=== PATIENT | female | born 2000 | race Caucasian/White ===

== ENCOUNTER 2022-06-18 11:47 | Outpatient (CLI) | payer OTHER, MEDICAID, SELFPAY ==
--- OUTSIDE RECORDS SUMMARY | 2022-06-18 11:53 | XMS_ITS | Encounter Summary ---
:2001 Author Organization [facility] Address [address] [place] [address] Care Team Providers Name Role Phone [place] MD Unavailable [place] MD Unavailable Josh Carrero Primary Care Provider Urbano Price MD Unavailable Joe Leo MD Unavailable oJe Leo MD Unavailable Douglas Gonzalez MD Unavailable [phone] Douglas Gonzalez MD Unavailable [phone] Reason for Visit Reason Onset Date Comments MyChart Communication 04/19/2022 [facility] Care Coordination - Follow-up 04/19/2022 Encounter Details Date Type Department Care Team Description 04/19/2022 Telephone [facility] [place] [facility] MD Darell ([facility]); Clinic [address] Care [facility] - [address] [place] [address] [address] Follow-up 4th [place] [phone] Social History Tobacco Use Types Packs/Day Years Used Date Smoking Tobacco: Never Smokeless Tobacco: Never Alcohol Use Standard Drinks/Week Comments Not Currently 0 (1 standard drink = 0.6 oz pure alcoho l) Sex Assigned at Date Recorded Female 12/02/2020 1:42 PM CDT documented as of this encounter Miscellaneous Notes Telephone Encounter - Sabina Asif RN - 04/19/2022 12:41 PM CDT See phone message from call center with My Chart question. I called Pt back. She wondered if Tim appt should be with or DR Sutherland? Per last dictation, I told her to make with & transferred her to scheduling. Call back prn. Pt agreed. Sabina Asif RN. Telephone Encounter - Jaleesa Peralta - 04/19/2022 11:51 AM CDT Images from the original note were not included. [facility] Call Center Phone Message May a detailed message be left on voicemail: no Reason for Call: Other: Patient MyChart question Action Taken: Message routed to: [facility] Travel Screening: Not Applicable documented in this encounter Plan of Treatment Not on filedocumented as of this encounter Visit Diagnoses Not on filedocumented in this encounter Care Teams Occupational Therapist Aide Relationship Specialty Start Date End Date Josh Carrero PCP - General Family Medicine 08/09/[address] [address] [place] MD Orthopedics 03/08/20 MD Darell [address] [place] [address] [phone] [place] Spencer Assigned Musculoskeletal 05/27/20 MD Darell Provider [address] [place] [address] [phone] Urbano Price Assigned PCP 11/13/20 MD Esteban [facility] [place], [place] [phone] Joe Leo MD Physical Medicine and 04/11/21 MD Rehabilitation [address] [place] [address] [phone] Joe Leo, Assigned Neuroscience 04/30/21 MD Provider [address] [place] [address] [phone] Douglas Gonzalez MD Pediatrics 05/29/21 MD [place] [address] [place] [address] Douglas Gonzalez Assigned Pediatric 06/04/21 MD [place] Specialist Provider [address] [place] [address] documented as of this encounter
--- OUTSIDE RECORDS SUMMARY | 2022-06-18 11:53 | XMS_ITS | Encounter Summary ---
:2001 Author Organization [place] [facility] Address [address] [place] [address]. [place] [address] Care Team Providers Name Role Phone [place] MD Unavailable [place] Spencer MD Unavailable Josh Carrero Primary Care Provider Urbano Price MD Unavailable Joe Leo MD Unavailable Joe Leo MD Unavailable Douglas Gonzalez MD Unavailable [phone] Douglas Gonzalez MD Unavailable [phone] Reason for Visit Reason Onset Date Comments Clinic Care Coordination - Follow-up 06/15/2022 Encounter Details Date Type Department Care Team Description 06/15/2022 [facility] Yolanda Kumar, RUTH Clini c Care Coordination [facility] Pediatric - Follow-u p Specialty Clinic [address] [place] [address] [address] [place] [address] Social History Tobacco Use Types Packs/Day Years Used Date Smoking Tobacco: Never Smokeless Tobacco: Never Alcohol Use Standard Drinks/Week Comments Not Currently 0 (1 standard drink = 0.6 oz pure alcoho l) Sex Assigned at Date Recorded Female 12/02/2020 1:42 PM CDT documented as of this encounter Miscellaneous Notes Telephone Encounter - Yolanda Kumar RN - 06/15/2022 10:49 AM CST This RNCC received a phone call from Dakota's mom, [place], about an upcoming oral surgery Dakota is having and the need for a possible platelet transfusion. Per mom Dakota is meeting with the oral surgeon on 07/04/22 and will likely have surgery the week after. I let mom know that I would talk with Dr Atwood about a plan and that we would connect with family soon about possible appointments. Mom was understanding of this plan and stated no further questions. Message sent to Dr Mariposa Atwood. Yolanda Kumar BSN, dry cleaner apprenticeTransportation Planner IANCE ADJUSTER documented in this encounter Plan of Treatment Not on filedocumented as of this encounter Visit Diagnoses Not on filedocumented in this encounter Care Teams Engineer System Administrator Relationship Specialty Start Date End Date Josh Carrero PCP - General Family Medicine 08/09/[address] [address] [place] MD Orthopedics 03/08/20 MD Darell [facility] [place] [address] [phone] [place] Assigned Musculoskeletal 05/27/20 MD Darell Provider [facility] [place] [address] [phone] Urbano Price Assigned PCP 11/13/20 MD Esteban [address] [place], [place] [phone] Joe Leo MD Physical Medicine and 04/11/[address] [place] [address] [phone] Joe Leo, Ade Neuroscience 04/30/21 MD Provider [address] [place] [address] [phone] [place] Gonzalez MD Pediatrics 05/29/21 MD [place] [address] [place] [address] [place] Gonzalez Assigned Pediatric 06/04/21 MD [place] Specialist Provider [address] [place] [address] [phone] documented as of this encounter
--- OUTSIDE RECORDS SUMMARY | 2022-06-18 11:53 | XMS_ITS | Encounter Summary ---
:2001 Author Organization [place] Address [address] [place] [address] Care Team Providers Name Role Phone [place] MD Unavailable [place] MD Unavailable Josh Carrero Primary Care Provider Urbano Price MD Unavailable Joe Leo MD Unavailable Joe Leo MD Unavailable Douglas Gonzalez MD Unavailable [phone] Douglas Gonzalez MD Unavailable [phone] Encounter Details Date Type Department Care Team Description 12/11/2021 Travel Social History Tobacco Use Types Packs/Day Years Used Date Smoking Tobacco: Never Smokeless Tobacco: Never Alcohol Use Standard Drinks/Week Comments Not Currently 0 (1 standard drink = 0.6 oz pure alcoho l) Sex Assigned at Date Recorded Female 12/02/2020 1:42 PM CDT COVID-19 Exposure Response Date Recorded In the last 10 days, have you been in contact with No / Unsu re 12/11/2021 10:00 AM CDT someone who was confirmed or suspected to have Coronavirus/COVID-19? documented as of this encounter Plan of Treatment Not on filedocumented as of this encounter Visit Diagnoses Not on filedocumented in this encounter Care Teams Truck Trailer Final Inspector Relationship Specialty Start Date End Date Josh Carrero PCP - General Family Medicine 08/09/[address] [address] [place] MD Orthopedics 03/08/20 MD Darell [address] [place] [address] [place] Assigned Musculoskeletal 05/27/20 MD Darell Provider [address] [place] [address] Urbano Price Assigned PCP 11/13/20 MD Esteban [address] [place] [address] Joe [place] MD Physical Medicine and 04/11/21 MD Rehabilitation [address] [place] [address] Joe Leo, Ade Neuroscience 04/30/21 MD Provider [address] [address] [place] MD Pediatrics 05/29/21 MD [place] [address] [place] [address] [phone] [place] Assigned Pediatric 06/04/21 MD [place] Specialist Provider [address] [place] [address] [phone] documented as of this encounter
--- OUTSIDE RECORDS SUMMARY | 2022-06-18 11:53 | XMS_ITS | Encounter Summary ---
:2001 Author Organization [facility] Address [address] [place] [address]. [place] [address] Care Team Providers Name Role Phone [place] MD Unavailable [place] MD Unavailable Josh Carrero Primary Care Provider Urbano Price MD Unavailable Joe Leo MD Unavailable Joe Leo MD Unavailable Douglas Gonzalez MD Unavailable [phone] Douglas Gonzalez MD Unavailable [phone] Encounter Details Date Type Department Care Team Description 12/13/2021 Telephone [facility], Urbano Orellana MD Pediatric Specialty Clinic [address] [place] [address] [place], [place] [address] [phone] Social History Tobacco Use Types Packs/Day Years [...] have Coronavirus/COVID-19? documented as of this encounter Miscellaneous Notes Telephone Encounter - Mari Lopez RN - 12/13/2021 10:44 AM CDT documented in this encounter Plan of Treatment Not on filedocumented as of this encounter Visit Diagnoses Not on filedocumented in this encounter Care Teams Polishing Machine Operator Helper Relationship Specialty Start Date End Date Josh Carrero PCP - General [facility] Medicine 08/09/[address] [address] [place] MD Orthopedics 03/08/20 MD Darell [facility] [place] [address] [phone] [place] Assigned Musculoskeletal 05/27/20 MD Darell Provider [facility] [place] [address] Urbano Price Assigned PCP 11/13/20 MD Esteban [address] [place] [address] Joe Leo MD Physical Medicine and 04/11/21 MD Rehabilitation [address] [place] [address] Joe Leo, Ade Neuroscience 04/30/21 MD Provider [address] [phone] Douglas Gonzalez MD Pediatrics 05/29/21 MD [place] [facility] [address] [phone] [place] Assigned Pediatric 06/04/21 MD [place] Specialist Provider [address] [place] [address] documented as of this encounter
--- OUTSIDE RECORDS SUMMARY | 2022-06-18 11:53 | XMS_ITS | Clinical Summary ---
:2001 Author Organization [facility] Address [address] [place] [address] Care Team Providers Name Role Phone [place] MD Unavailable [place] MD Unavailable Josh Carrero Primary Care Provider Urbano Price MD Unavailable Joe Leo MD Unavailable Joe Leo MD Unavailable Douglas Gonzalez MD Unavailable [phone] Douglas Gonzalez MD Unavailable [phone] Allergies Active Allergy Reactions Severity Noted Date Comments Dust Mites Itching 08/13/2019 Other reaction( s): Itching,Waterin g Eyes Gluten Meal 04/20/2021 Other reaction( s): GI Reaction Hydromorphone Other (See Comments) 05/11/2019 All fo gibran (enteral and IV) cause confusion , delirium, aggression. Steven id. Medications Medication Sig Dispensed Refills Start End Date Status Date Norethindrone Take by mouth 0 Ac tive Acet-Ethinyl Est daily (LOESTRIN 08/24, , PO) cholecalciferol Take by mouth 0 Active (VITAMIN D3) 125 daily mcg (5000 units) capsule acetaminophen Take 1000 mg 0 Act mindy (TYLENOL) 500 MG every six hours 1 tabletIndications: for 2 days after Acute discharge, then post-operative pain as needed (every six hours) after that. Lidocaine Place 1-2 30 patch 3 Active (LIDOCARE) 4 % patches on skin 1 PatchIndications: over painful Acute area. Leave on post-operative for 12 hours, pain, Chronic then keep off musculoskeletal for 12 hours. pain Repeat daily. tranexamic acid Take 1.5 tablets 15 tablet 0 Active (LYSTEDA) 650 MG every six hours 1 tabletIndications: as needed for Platelet disorder persistent (H) bleeding. naloxone (NARCAN) 4 Bryan 1 spray (4 0.2 mL 0 Active MG/0.1ML nasal mg) into one 1 sprayIndications: nostril Acute alternating post-operative pain nostrils as needed for opioid reversal every 2-3 minutes until assistance arrives teriparatide, Inject 0.08 mLs 2.4 mL 5 Active recombinant, (20 mcg) 1 (FORTEO) 600 Subcutaneous MCG/2.4ML SOPN daily injectionIndication s: Localized osteoporosis without current pathological fracture, Pseudarthrosis following spinal fusion tranexamic acid Take 1 tablet 20 tablet 3 Active (LYSTEDA) 650 MG (650 mg) by 1 tabletIndications: mouth 3 times At risk for daily as needed hemorrhage (for bleeding associated with control. May surgery increase to 2 tablets for significant bleeding.) May use for up to 3-5 days. fluticasone INHALE ONE TO 0 Acti ve (FLONASE) 50 TWO SPRAYS INTO 1 MCG/ACT nasal spray BOTH NOSTRILS ONCE DAILY hydrOXYzine TAKE ONE TABLET 0 Ac tive (ATARAX) 10 MG BY MOUTH EVERY 8 0 tablet HOURS NEEDED FOR ANXIETY hydrOXYzine TAKE ONE TABLET 0 Ac tive (ATARAX) 25 MG BY MOUTH EVERY 1 tablet DAY NEEDED hydrOXYzine TAKE ONE TABLET 0 Ac tive (ATARAX) 50 MG BY MOUTH EVERY 1 tablet DAY NEEDED traZODone (DESYREL) Take 50 mg by 0 Active 50 MG tablet mouth nightly as 1 needed baclofen (LIORESAL) Take 0.5-1 90 tablet 1 Active 10 MG tablets (5-10 1 tabletIndications: mg) by mouth 3 Tethered cord (H), times daily Chronic pain Start 5mg daily syndrome, S/P x3 days, then spinal fusion 5mg BID, then 5mg TID ondansetron DISSOLVE ONE 0 Activ e (ZOFRAN-ODT) 8 MG TABLET BY MOUTH 1 ODT tab THREE TIMES A DAY NEEDED diazepam (VALIUM) 2 Take 0.5 tablets 30 tablet 0 Active MG (1 mg) by mouth 2 tabletIndications: every 6 hours as Back muscle spasm needed for anxiety HYDROcodone-acetami Take 1 tablet by 30 tablet 0 Active nophen (NORCO) mouth every 6 2 5-325 MG hours as needed tabletIndications: for severe pain Chronic pain syndrome, Chronic musculoskeletal pain pregabalin (LYRICA) Take 1 capsule 180 capsule 3 Active 150 MG (150 mg) by 2 capsuleIndications: mouth 2 times Chronic pain daily syndrome, Chronic musculoskeletal pain sertraline (ZOLOFT) Take 1 tablet 90 tablet 3 Active 100 MG (100 mg) by 2 tabletIndications: mouth daily Chronic pain syndrome, Chronic musculoskeletal pain, PTSD (post-traumatic stress disorder) valACYclovir Take 1 tablet 21 tablet 0 10/24/19 Dis continued (VALTREX) 1000 mg (1,000 mg) by 1 21 tablet mouth 3 times daily for 7 days Hospital, Clinic, or Other Ordered Dose Route Frequency Start Date End Date Status Facility Administered Medication botulinum toxin type A 100 Units IM ONCE 05/09/2021 Active (BOTOX) 100 units injection 100 UnitsIndications: Muscle spasm Active Problems Problem Noted Date Localized osteoporosis without current pathological fr acture 08/22/2021 Pseudarthrosis following spinal fusion 10/13/2020 History of inhaled steroid therapy 10/13/2020 Pancreatic insufficiency 10/13/2020 Excessive menstruation at puberty 10/13/2020 POTS (postural orthostatic tachycardia syndrome) 10/13 Neuropathic pain 08/31/2020 S/P spinal fusion 08/31/2020 Inflammation of operative incision 08/31/2020 Platelet disorder 08/16/2020 Chronic musculoskeletal pain 08/10/2020 Chronic pain syndrome 08/10/2020 Scoliosis 07/21/2020 Overview: Added automatically from request for teresa eason [id number] Painful orthopaedic hardware 07/21/2020 Overview: Added automatically from request for teresa eason [id number] 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, thoracolumbar region 2019 Tethered cord 05/05/2020 Resolved Problems Problem Noted Date Resolved Date Chronic right-sided low back pain without sciatica 02/06/2021 Aftercare following surgery of the musculoskeletal system 02/06/2021 Acute post-operative pain 08/10/2020 08/16/2020 Encounters Date Type Specialty Care Team Description 06/15/2022 Telephone Pediatric Yolanda Kumar RN Clinic Car e Coordination Hematology/Oncology - Follow -up 04/19/2022 Telephone Orthopedics [place] MD ([facility] [place]); Clinic Care Coordinati on - Follow-up from Last 3 Months Social History Tobacco Use Types Packs/Day Years Used Date Smoking Tobacco: Never Smokeless Tobacco: Never Alcohol Use Standard Drinks/Week Comments Not Currently 0 (1 standard drink = 0.6 oz pure alcoho l) Sex Assigned at Date Recorded Female 12/02/2020 1:42 PM CDT Last Filed Vital Signs Vital Sign Reading Time Taken Comments Blood Pressure 109/71 08/22/2021 2:57 PM VALIDATION SPECIALIST Pulse 71 08/22/2021 2:57 PM VALIDATION SPECIALIST Temperature 36.9 ??C (98.4 ??F) 08/22/2021 2:57 PM VALIDATION SPECIALIST Respiratory Rate 16 08/22/2021 2:57 PM VALIDATION SPECIALIST Oxygen Saturation 100% 08/22/2021 2:57 PM VALIDATION SPECIALIST Inhaled Oxygen Concentration - - Weight 57.6 kg (126 lb 15.8 oz) 08/22/2021 2:57 PM VALIDATION SPECIALIST Height 160.9 cm (5' 3.35) 08/22/2021 2:57 PM VALIDATION SPECIALIST Body Mass Index 22.25 08/22/2021 2:57 PM VALIDATION SPECIALIST Plan of Treatment Health Maintenance Due Date Last Done Comments ADVANCE CARE PLANNING 2001 ANNUAL REVIEW OF HM ORDERS 2001 CHLAMYDIA SCREENING 2001 URINE DRUG SCREEN 2001 YEARLY PREVENTIVE VISIT 2001 COVID-19 Vaccine (#1) 01/22/2002 HIV SCREENING 2016 HEPATITIS C SCREENING 2019 DTAP/TDAP/TD IMMUNIZATION 03/31/2022 03/31/2012, 11/22/2006 , (7 - Td or Tdap) 11/22/2006, Additional history exists INFLUENZA VACCINE (#1) 2022 07/25/2020, 06/23/2018, 06/23/2018, Additional history exists Pneumococcal Vaccine: Aged Out 2001, 2001 No longer eligible Pediatrics (0 to 5 Years) based on patient's age and At-Risk Patients (6 to to co mplete this topic 64 Years) HEPATITIS B IMMUNIZATION Completed 01/26/2003, 07/25/2002, 04/24/2002, Additional history exists IPV IMMUNIZATION Completed 11/22/2006, 04/24/2002, 01/23/2002, Additional history exists MENINGITIS IMMUNIZATION Aged Out 03/24/2013 No longe r eligible based on patient 's age to complete this topic HPV IMMUNIZATION Completed 11/24/2015, 11/24/2015, 03/24/2014, Additional history exists PHQ-2 (once per calendar Completed 08/23/2021, 09/01/2020, year) 05/05/2020, Additional history exists Medical Devices Implanted Type Area Lvn Lpn Device Shelf Model / Serial / Identifier Expiration Lot Date Graft Bone Crush Canc 30ml [id number] Bone/Tissu N/A: MUSCULOSKELETAL 05/12/2023 [id number] / Implanted: Qty: 1 on 08/09/2020 by [place] MD at [facility] e/Biologic Back RAMIREZ [id number] / Imp Sincere Medt Solera Tial Str Lined [id number] Metallic N/A: [employer] [id number] / Implanted: Qty: 2 on 08/09/2020 by [place] MD at [facility] Hardware/A Back / nchor [id number] Graft Bone Infuse Bmp Med [id number] N/A: [employer], 05/04/2022 [id number] / Implanted: Qty: 1 on 08/09/2020 by [place] MD at [facility] Back INC-DANDARRIN / [id number] Explanted Type Area Lvn Lpn Device Shelf Model / Identifier Expiration Date Ser ial / Lot Explanted Spinal Hardware N/A: Back Explanted: Qty: 1 on 08/09/2020 by [place] MD at [facility] Insurance Payer Benefit Plan / Subscriber ID Effective Phone Address T ype Group Dates [place]REF[place] [id number] 2014-Pres [id number] [address] PPO ADVANTAGE ent [address] [place] [address] [place] [id number] 2019-Pres [phone] [address] dicaid ent [id number] [place] [address] (Home) W none (Work) [facility] [place] [id number] Dakota Casiano Personal/Family Self [id number] (Home) [place] [address] Advance Directives For more information, please contact: [phone] Latest Code Status on File Code Status Date Activated Date Inactivated Comments Full Code 08/10/2020 6:24 AM 08/16/2020 3:52 PM All basic and advanced life-sustaining interventions ar e performed as appropriate Question Answer Comments Code status determined by: Discussion with patient/ legal de cision maker Care Teams Abrasive Wheel Molder Relationship Specialty Start Date End Date Josh Carrero PCP - General Family Medicine 08/09/[address] [phone] [place] MD Orthopedics 03/08/20 MD Darell [address] [place] [address] [place] Assigned Musculoskeletal 05/27/20 MD Darell Provider [address] [place], [place] 887564 Urbano Price Assigned PCP 11/13/20 MD Esteban [address] [address] [phone] Joe [place] MD Physical Medicine and 04/11/21 MD Rehabilitation [address] [place] [address] [phone] Joe Leo, Assigned Neuroscience 04/30/21 MD Provider [address] [place] [address] [phone] Douglas Gonzalez MD Pediatrics 05/29/21 MD [place] [address] [place] [address] [phone] Douglas Gonzalez Assigned Pediatric 06/04/21 MD [place] Specialist Provider [address] [place] [address] [phone]
--- OUTSIDE RECORDS SUMMARY | 2022-06-18 11:54 | XMS_ITS | Encounter Summary ---
:2001 Author Organization [place] Address [address] [place] [address]. [place] [address] Care Team Providers Name Role Phone Julian Spencer MD Unavailable Julian Spencer MD Unavailable Josh Carrero Primary Care Provider Urbano Price MD Unavailable Joe Leo MD Unavailable Joe Leo MD Unavailable Douglas Gonzalez MD Unavailable [phone] Douglas Gonzalez MD Unavailable [phone] Encounter Details Date Type Department Care Team Description 12/10/2021 Orders Only Pediatric Urbano Price Platelet dis order (H) (Primary Dx); Endocrinology MD Esteban Chronic pain syndrome; [facility] [address] [place] [address] Excessive menstruation at pu elise; [address] POTS (postural orthostatic tachycardia s yndrome); [address] [place] [address] [place], [place] [address] [phone] Social History Tobacco Use Types Packs/Day Years Used Date Smoking Tobacco: Never Smokeless Tobacco: Never Alcohol Use Standard Drinks/Week Comments Not Currently 0 (1 standard drink = 0.6 oz pure alcoho l) Sex Assigned at Date Recorded Female 12/02/2020 1:42 PM CDT documented as of this encounter Plan of Treatment Not on filedocumented as of this encounter Results (ABNORMAL) Ferritin (12/11/2021 10:18 AM CDT) athologist Signature Ferritin 11 (L) 12 - 150 12/11/2021 [facility] ng/mL 10:53 AM CDT Specimen Anatomical Collection Method / Collection Time Recei donal Time (Source) Location / Volume Laterality Blood STRUCTURE OF RIGHT Venipuncture / 12/11/2021 10:18 04/2022 UPPER LIMB / Unknown AM CDT 10:19 AM CDT Unknown Urbano Price MD LAB - BLOOD ORDERABLES Performing Organization Address City/[facility]/ZIP Code Phon [place] [phone] Care Lab [address] Lab (1st floor, no room number) TSH with free T4 reflex (12/11/2021 10:18 AM CDT) athologist Signature TSH 2.21 0.40 - 4.00 12/11/2021 [facility] mU/L 10:59 AM CDT Specimen Anatomical Collection Method / Collection Time Recei donal Time (Source) Location / Volume Laterality Blood STRUCTURE OF RIGHT Venipuncture / 12/11/2021 10:18 04/2022 UPPER LIMB / Unknown AM CDT 10:19 AM CDT Unknown Urbano Price MD LAB - BLOOD ORDERABLES Performing Organization Address City/[facility]/ZIP Code Phon [place] [phone] Care Lab [address] Lab (1st floor, no room number) CRP inflammation (12/11/2021 10:18 AM CDT) Analysis Performed At Patho logist Time Signature CRP Inflammation <2.9 0.0 - 8.0 12/11/2021 [facility] Y mg/L 10:50 AM CDT Specimen Anatomical Collection Method / Collection Time Recei donal Time (Source) Location / Volume Laterality Blood STRUCTURE OF RIGHT Venipuncture / 12/11/2021 10:18 04/2022 UPPER LIMB / Unknown AM CDT 10:19 AM CDT Unknown Urbano Price MD LAB - BLOOD ORDERABLES Performing Organization Address City/State/ZIP Code Phon [place] [address] Care Lab [address] Lab (1st floor, no room number) Comprehensive metabolic panel (12/11/2021 10:18 AM CDT) P athologist Signature Sodium 138 133 - 144 12/11/2021 LABORATORY mmol/L 10:50 AM CDT Potassium 4.1 3.4 - 5.3 12/11/2021 LABORATORY mmol/L 10:50 AM CDT Chloride 107 94 - 109 12/11/2021 LAB[facility]ATORY mmol/L 10:50 AM CDT Carbon Dioxide 27 20 - 32 12/11/2021 LABORATORY (CO2) mmol/L 10:50 AM CDT Anion Gap 4 3 - 14 12/11/2021 [facility] mmol/L 10:50 AM CDT Urea Nitrogen 13 7 - 30 12/11/2021 LABORATORY mg/dL 10:50 AM CDT Creatinine 0.61 0.52 - 12/11/2021 LABORATORY 1.04 mg/dL 10:50 AM CDT Calcium 8.8 8.5 - 10.1 12/11/2021 LABORATORY mg/dL 10:50 AM CDT Glucose 87 70 - 99 12/11/2021 LABORATORY mg/dL 10:50 AM CDT Alkaline 81 40 - 150 12/11/2021 [facility]ORY Phosphatase U/L 10:50 AM CDT AST 19 0 - 45 U/L 12/11/2021 LABORATORY 10:50 AM CDT ALT 23 0 - 50 U/L 12/11/2021 LABORATORY 10:50 AM CDT Protein Total 7.1 6.8 - 8.8 12/11/2021 LABORATORY g/dL 10:50 AM CDT Albumin 3.9 3.4 - 5.0 12/11/2021 LABORATORY g/dL 10:50 AM CDT Bilirubin Total 0.5 0.2 - 1.3 12/11/2021 LABORATORY mg/dL 10:50 AM CDT GFR Estimate >90 >60 12/11/2021 LABORATORY mL/min/1.7 10:50 AM CDT 3m2 Comment: Effective July 25, 2021 eGF Rcr in adults is calculated using the 2020 CKD-EPI creatinine equation which includ es age and gender (Liset et al., NEJM, DOI: 10.1056/GYNXtw1729069) Specimen Anatomical Collection Method / Collection Time Recei donal Time (Source) Location / Volume Laterality Blood STRUCTURE OF RIGHT Venipuncture / 12/11/2021 10:18 04/2022 UPPER LIMB / Unknown AM CDT 10:19 AM CDT Unknown Urbano Price MD LAB - BLOOD ORDERABLES Performing Organization Address City/State/ZIP Code Phon [place] [address] Care Lab [address] Lab (1st floor, no room number) documented in this encounter Visit Diagnoses Diagnosis 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 Chronic pain syndrome Excessive menstruation at puberty Puberty bleeding POTS (postural orthostatic tachycardia s yndrome) Tachycardia, unspecified Fatigue, unspecified type documented in this encounter Care Teams Printing Manager Relationship Specialty Start Date End Date Josh Carrero PCP - General Family Medicine 08/09/[address] [address] Julian Spencer MD Orthopedics 03/08/20 MD Darell [facility] [address] [phone] Julian Spencer Assigned Musculoskeletal 05/27/20 MD Darell Provider [address] [address] Urbano Price Assigned PCP 11/13/20 MD Esteban [address] [place], [place] [phone] Joe Leo MD Physical Medicine and 04/11/21 Rehabilitation [address] [phone] Joe Leo, Assigned Neuroscience 04/30/21 MD Provider [address] 126[address] Douglas Gonzalez MD Pediatrics 05/29/21 MD Julian [address] [place] [address] Douglas Gonzalez Assigned Pediatric 06/04/21 MD Julian Specialist Provider [address] [place] [address] documented as of this encounter
--- OUTSIDE RECORDS SUMMARY | 2022-06-18 11:54 | XMS_ITS | Encounter Summary ---
:2001 Author Organization [place] Address [address] [place] [address] Care Team Providers Name Role Phone Julian Spencer MD Unavailable Julian Spencer MD Unavailable Josh Carrero Primary Care Provider Urbano Price MD Unavailable Joe Leo MD Unavailable Joe Leo MD Unavailable Douglas Gonzalez MD Unavailable [phone] Douglas Gonzalez MD Unavailable [phone] Encounter Details Date Type Department Care Team Description 07/04/2021 Travel Social History Tobacco Use Types Packs/Day Years Used Date Smoking Tobacco: Never Smokeless Tobacco: Never Alcohol Use Standard Drinks/Week Comments Not Currently 0 (1 standard drink = 0.6 oz pure alcoho l) Sex Assigned at Date Recorded Female 12/02/2020 1:42 PM CDT COVID-19 Exposure Response Date Recorded In the last month, have you been in contact with No / Unsure 07/04/2021 2:47 PM [employer] OFF[employer] someone who was confirmed or suspected to have Coronavirus / COVID-19? documented as of this encounter Plan of Treatment Not on filedocumented as of this encounter Visit Diagnoses Not on filedocumented in this encounter Care Teams Plate Slitter And Inspector Relationship Specialty Start Date End Date Josh Carrero PCP - General Family Medicine 08/09/[address] [address] Julian Spencer MD Orthopedics 03/08/20 MD Darell [address] [place] [address] Julian Spencer Assigned Musculoskeletal 05/27/20 MD Darell Provider [address] [place] [address] Urbano Price Assigned PCP 11/13/20 MD Esteban [address] [place] [address] Joe Leo MD Physical Medicine and 04/11/21 MD Rehabilitation [address] [place] [address] Joe Leo, Ade Neuroscience 04/30/21 MD Provider [address] [address] Douglas Gonzalez MD Pediatrics 05/29/21 MD Julian [address] [place] [address] [phone] Douglas Gonzalez Assigned Pediatric 06/04/21 MD Julian Specialist Provider [address] [place] [address] documented as of this encounter
--- OUTSIDE RECORDS SUMMARY | 2022-06-18 11:54 | XMS_ITS | Encounter Summary ---
:2001 Author Organization [place] Address [address] [place] [address] Care Team Providers Name Role Phone Julian Spencer MD Unavailable Julian Spencer MD Unavailable Josh Carrero Primary Care Provider Urbano Price MD Unavailable Joe Leo MD Unavailable Joe Leo MD Unavailable Douglas Gonzalez MD Unavailable [phone] Douglas Gonzalez MD Unavailable [phone] Reason for Visit Reason Onset Date Comments Refill Request 07/03/2021 Encounter Details Date Type Department Care Team Description 07/03/2021 Refill [facility] Discovery Catalina De La Torre, RN Refill Request [facility] [address] [place] [phone] Social History Tobacco Use Types Packs/Day Years [...] on filedocumented in this encounter Care Teams Assembly Riveter Relationship Specialty Start Date End Date Josh Carrero PCP - General Family Medicine 08/09/[address] [address] Julian Spencer MD Orthopedics 03/08/20 MD Darell [address] [place] [address] 395674 Julian Spencer Assigned Musculoskeletal 05/27/20 MD Darell Provider [address] [place] [address] [phone] Urbano Price Assigned PCP 11/13/20 MD Esteban [address] [place] [address] Joe Leo MD Physical Medicine and 04/11/21 MD Rehabilitation [address] [address] Joe Leo, Ade Neuroscience 04/30/21 MD Provider [address] [address] Douglas Gonzalez MD Pediatrics 05/29/21 MD Julian [address] [place] [address] Douglas Gonzalez Assigned Pediatric 06/04/21 MD Julian Specialist Provider [address] [place] [address] 354294 documented as of this encounter
--- OUTSIDE RECORDS SUMMARY | 2022-06-18 11:54 | XMS_ITS | Encounter Summary ---
:2001 Author Organization [place] Address [facility] [place] [address] Care Team Providers Name Role Phone Julian Spencer MD Unavailable Julian Spencer MD Unavailable Josh Carrero Primary Care Provider Urbano Price MD Unavailable Joe Leo MD Unavailable Joe Leo MD Unavailable Douglas Gonzalez MD Unavailable [phone] Douglas Gonzalez MD Unavailable [phone] Encounter Details Date Type Department Care Team Description 09/22/2021 Orders Only [facility] [place] At risk fo r hemorrhage associated with surgery (Primary Dx); Services - Christian Sheffield MD Menorrhagia with irregular cycle Specialties Service [address] [place] [address] AVE [address] [place], [place] [address] [phone] Social History Tobacco Use Types Packs/Day Years Used Date Smoking Tobacco: Never Smokeless Tobacco: Never Alcohol Use Standard Drinks/Week Comments Not Currently 0 (1 standard drink = 0.6 oz pure alcoho l) Sex Assigned at Date Recorded Female 12/02/2020 1:42 PM CDT COVID-19 Exposure Response Date Recorded In the last month, have you been in contact with No / Unsure 08/24/2021 3:05 PM [employer] someone who was confirmed or suspected to have Coronavirus / COVID-19? documented as of this encounter Plan of Treatment Not on filedocumented as of this encounter Visit Diagnoses Diagnosis At risk for hemorrhage associated with s urgery - Primary Menorrhagia with irregular cycle Excessive or frequent menstruation documented in this encounter Care Teams Trans Router Relationship Specialty Start Date End Date Josh Carrero PCP - General Family Medicine 08/09/[address] [address] uJlian Spencer MD Orthopedics 03/08/20 MD Darell [facility] S [address] [place] [address] [phone] Julian Spencer Assigned Musculoskeletal 05/27/20 MD Darell Provider [facility] [address] [place] [address] Urbano Price Assigned PCP 11/13/20 MD Esteban [address] [place] [address] 827214 Joe Leo MD Physical Medicine and 04/11/21 MD Rehabilitation [address] [place] [address] Joe Leo, Ade Neuroscience 04/30/21 MD Provider [address] [address] Douglas Gonzalez MD Pediatrics 05/29/21 MD Julian [address] [place] [address] Douglas Gonzalez Assigned Pediatric 06/04/21 MD Julian Specialist Provider [address] [place] [address] documented as of this encounter
--- OUTSIDE RECORDS SUMMARY | 2022-06-18 11:54 | XMS_ITS | Encounter Summary ---
:2001 Author Organization [place] Address [address] [place] [address]. [place] [address] Care Team Providers Name Role Phone Julian Spencer MD Unavailable Julian Spencer MD Unavailable Josh Carrero Primary Care Provider Urbano Price MD Unavailable Joe Leo MD Unavailable Joe Leo MD Unavailable Douglas Gonzalez MD Unavailable [phone] Douglas Gonzalez MD Unavailable [phone] Reason for Visit Reason Onset Date Comments Appointment 08/18/2021 Encounter Details Date Type Department Care Team Description 08/18/2021 Telephone Pediatric Endocrinol Urbaon Agosto MD Appointment [facility] [address] [place] [address] [place] [address] [place], [place] [phone] Social History Tobacco Use Types Packs/Day Years Used Date Smoking Tobacco: Never Smokeless Tobacco: Never Alcohol Use Standard Drinks/Week Comments Not Currently 0 (1 standard drink = 0.6 oz pure alcoho l) Sex Assigned at Date Recorded Female 12/02/2020 1:42 PM CDT documented as of this encounter Miscellaneous Notes Telephone Encounter - Maribel Martinez - 08/18/2021 7:38 AM CST Mom gave follow up call- is ok with moving appt for 08/22 to 2:30. I called her back and explained wedo not need to move the appointment anymore - if they would prefer to be moved to 2:30 they can giveme a CB, otherwise appt is confirmed for 3:00. [employer] SUPPORT CONSULTANT documented in this encounter Plan of Treatment Not on filedocumented as of this encounter Visit Diagnoses Not on filedocumented in this encounter Care Teams Education Administrative Assistant Relationship Specialty Start Date End Date Josh Carrero PCP - General Family Medicine 08/09/[address] [address] Julian Spencer MD Orthopedics 03/08/20 MD Darell [facility] [place] [address] 629854 Julian Spencer Assigned Musculoskeletal 05/27/20 MD Darell Provider [facility] [place] [address] Urbano Price Assigned PCP 11/13/20 MD Esteban [facility] [place], [place] 313724 Joe Leo MD Physical Medicine and 04/11/[address] [place] [address] [phone] Joe Leo Assigned Neuroscience 04/30/[address] [place] [address] [phone] Douglas Gonzalez MD Pediatrics 05/29/21 MD Julian [address] [place] [address] Douglas Gonzalez Assigned Pediatric 06/04/21 MD Julian Specialist Provider [address] [address] documented as of this encounter
--- OUTSIDE RECORDS SUMMARY | 2022-06-18 11:54 | XMS_ITS | Encounter Summary ---
:2001 Author Organization [place] Address [address] [place] [address] Care Team Providers Name Role Phone Julian Spencer MD Unavailable Julian Spencer MD Unavailable Josh Carrero Primary Care Provider Urbano Price MD Unavailable Joe Leo MD Unavailable Joe Leo MD Unavailable Douglas Gonzalez MD Unavailable [phone] Douglas Gonzalez MD Unavailable [phone] Encounter Details Date Type Department Care Team Description 08/22/2021 Travel Social History Tobacco Use Types Packs/Day Years Used Date Smoking Tobacco: Never Smokeless Tobacco: Never Alcohol Use Standard Drinks/Week Comments Not Currently 0 (1 standard drink = 0.6 oz pure alcoho l) Sex Assigned at Date Recorded Female 12/02/2020 1:42 PM CDT COVID-19 Exposure Response Date Recorded In the last month, have you been in contact with No / Unsure 08/22/2021 2:46 PM RESEARCH AFFILIATE someone who was confirmed or suspected to have Coronavirus / COVID-19? documented as of this encounter Plan of Treatment Not on filedocumented as of this encounter Visit Diagnoses Not on filedocumented in this encounter Care Teams Civil Lawyer Relationship Specialty Start Date End Date Josh Carrero PCP - General Family Medicine 08/09/[address] [address] Julian Spencer MD Orthopedics 03/08/20 MD Darell [address] [place] [address] Julian Spencer Assigned Musculoskeletal 05/27/20 MD Darell Provider [address] [place] [address] Urbano Price Assigned PCP 11/13/20 MD Esteban [address] [place] [address] Joe Leo MD Physical Medicine and 04/11/21 MD Rehabilitation [address] [place] [address] Joe Leo, Ade Neuroscience 04/30/21 MD Provider [address] [address] Douglas Gonzalez MD Pediatrics 05/29/21 MD Julian [address] [place] [address] 404694 Douglas Gonzalez Assigned Pediatric 06/04/21 MD Julian Specialist Provider [address] [place] [address] documented as of this encounter
--- OUTSIDE RECORDS SUMMARY | 2022-06-18 11:54 | XMS_ITS | Encounter Summary ---
:2001 Author Organization [facility] Address [address] [place] [address] Care Team Providers Name Role Phone Julian Spencer MD Unavailable Julian Spencer MD Unavailable Josh Carrero Primary Care Provider Urbano Price MD Unavailable Joe Leo MD Unavailable Joe Leo MD Unavailable Douglas Gonzalez MD Unavailable [phone] Douglas Gonzalez MD Unavailable [phone] Reason for Visit Reason Comments RECHECK F/U Platelet Infusion & Boto x Injection by PMR. Again Discuss Hardware removal. DOS Removal of instrumental for transitional segment vert Encounter Details Date Type Department Care Team Description 08/24/2021 Office Visit [facility] Julian Spencer History of fusion of spine for scoliosis (Primary Dx); Orthopedic Clinic MD Darell Transitional vertebra; [place] [address] Painful orthopaedic hardware (H) [address] [facility] [address] [place] [id number] Social History Tobacco Use Types Packs/Day [...] with No / Unsure 08/24/2021 3:05 PM RAG COLLECTOR someone who was confirmed or suspected to have Coronavirus / COVID-19? documented as of this encounter Progress Notes Julian Spencer MD - 08/24/2021 2:30 PM CST Images from the original note were not included. REASON FOR VISIT: RECHECK REFERRING PHYSICIAN: No ref. provider found PRIMARY CARE PHYSICIAN: Josh Carrero HISTORY OF PRESENT ILLNESS: Dakota Casiano is a 21 year old female who presents for follow-up on back pain. 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 Cobos, crosslink removal for pain 07/2016 , removal right T8 hook 2018, revision of posterior spinal fusion T3-L4 02/[address] Cobos, removal of Crosslink by Dr. Muro at [facility]. Dr. 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 She was last evaluated in orthopedic clinic on 04/11/2021. At that visit, patient was started on Flexeril, and Celebrex. A referralwas placed to Dr. Leo. Dr. Leo discontinued patient's Flexeril, and initiated baclofen. On 05/15/2021 patient underwent ultrasound-guided injection of the quadratus lumborum; patient reports thatthis was an exceptionally painful experience, and did not provide relief. On presentation today, patient reports persistent chronic back pain that is interfering with her ability to participate in activities as desired. She states that she cannot sleep for more than 2 hours without awakening. She cannot sit for greater than 5 minutes, and she cannot stand for greater than 1hour. She is unable to sit in a car without reclining back, and even with reclined seats can only bein a car for approximately 1 hour. She reports that her pain is more significant along the right side of her back, and the location is unchanged. She notes that the pain is most significant on the right low back. She presents to clinic today to discuss the available treatment options, and the next steps in her care. Oswestry (LOKESH) Questionnaire OSWESTRY DISABILITY INDEX 08/24/2021 Count 9 Sum 28 Oswestry Score (%) 62.22 Some recent data might be hidden PROMIS-10 Scores Visual Analog Scale (VAS) Questionnaire VISUAL ANALOG PAIN SCALE 08/24/2021 Back Pain Scale 0-10 8 Right leg pain 0 Left leg pain 0 Neck Pain Scale 0-10 0 Right arm pain 0 Left arm pain 0 PHYSICAL EXAM: ??? Vitals: There were no vitals taken for this visit. ??? Constitutional: Patient is healthy, well-nourished and appears stated age. ??? Respiratory: Patient is breathing normally and in no respiratory distress. ??? Skin: No suspicious rashes or lesions. Incision well healed ??? Gait: Non-antalgic gait without use of assistive devices. ??? Musculoskeletal: Strength: 5/5 iliopsoas, 5/5 quadriceps, 5/5 hamstrings, 5/5 anterior tibialis,5/5 extensor hallucis longus, 5/5 gastrocnemius. ? ? Spine: overall good sagittal balance. Significant tenderness and spasm of right > left quadratus lumborum. Significant tenderness to palpation associated with the spinous process at approximately the L4-5, and L5-S1. Significant tenderness to palpation associated with the proximal end of patient's hardware. IMAGING: XR obtained demonstrates stable alignment of surgical hardware without evidence of hardware loosening. Positive global sagittal imbalance. Redemonstration of patient's Bertolotti's transitional segment. No osseous abnormalities noted. 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 Spencer DISCUSSION/PLAN: Discussed with patient the complex nature of her chronic back pain, and the complex and unclear nature of the underlying etiology. Emphasized that current imaging demonstrates no acute concern however, given patient's prior history, unable to fully assess patient's fusion without advanced imaging. Discussed that patient's treatment options include continued conservative management versus surgicalintervention. Emphasized that surgical intervention would be a large undertaking, and would provide no guarantee for relief, and in fact would predispose patient to possibility for worsening of her symptoms. At this point in time, patient is unsure as to whether she wishes to take the risk associated with further surgical intervention therefore, recommend maximizing patient's conservative management. Recommend that patient follow-up with Dr. Leo to discuss additional pain management modalities, and potential future injections. Discussed that patient has to assess the current level of symptomatology she has and whether it is worth the risk of proceeding with additional surgical intervention understanding that she may receive no relief, or could potentially end up worse than she currently is. Emphasized that should patient wish to proceed with surgical intervention she would need to be driving that decision. At this point time, we will plan for patient to follow-up in clinic in 1 year however, should patient reconsider her current treatment strategy, and wished to consider surgical intervention then, patient can call clinic, and a CT thorax/lumbar/pelvis will be obtained. Plan to review CT to evaluate patient's fusion, and proceed accordingly. Patient and her mother acknowledged understanding of the above care plan; no additional questions orconcerns at this point time. This patient was discussed and evaluated with Dr. Spencer who is in agreement with the above care plan. Stefanie Huynh MD Orthopaedic Surgery, PGY-4 I saw and evaluated the patient and developed the plan. Julian Spencer MD COLLECTOR documented in this encounter Nursing Notes Reyna Chávez LPN - 08/24/2021 2:30 PM CST Reason For Visit: Chief Complaint Patient presents with ??? RECHECK F/U Platelet Infusion & Botox Injection by PMR. Again Discuss Hardware removal. DOS 08/09/20 Removal of instrumental for transitional segment vert Primary MD: Josh Carrero Ref. MD: Est Heat [employer] Frost Insulator?No Occupation??Student. ?? Date of injury:??No Type of injury:??No. ?? Date of surgery:??Several surgeries Type of surgery:??Fusions and hardware removal, refused last February ?? 08/09/2020??Reinsertion of segmental spinal instrumentation T4 to L4 -22 modifier. Pseudoarthrosis repair at 4 levels. ?Image-guided spine surgery. Skin biopsy. Scar revision, 44 cm.? Smoker:??No Request smoking cessation information:??No There were no vitals taken for this visit. Pain Assessment Patient Currently in Pain: Yes 0-10 Pain Scale: 8 Primary Pain Location: Back Oswestry (LOKESH) Questionnaire OSWESTRY DISABILITY INDEX 08/24/2021 Count 9 Sum 28 Oswestry Score (%) 62.22 Some recent data might be hidden Visual Analog Pain Scale Back Pain Scale 0-10: 8 Right leg pain: 0 Left leg pain: 0 Neck Pain Scale 0-10: 0 Right arm pain: 0 Left arm pain: 0 Promis 10 Assessment PROMIS 10 04/11/2021 In general, would you say your health is: Fair In general, would you say your quality of life is: Poor In general, how would you rate your physical health? Poor In general, how would you rate your mental health, including your mood and your ability to think? Fair In general, how would you rate your satisfaction with your social activities and relationships? Fair In general, please rate how well you carry out your usual social activities and roles Fair To what extent are you able to carry out your everyday physical activities such as walking, climbingstairs, carrying groceries, or moving a chair? Mostly How often have you been bothered by emotional problems such as feeling anxious, depressed or irritable? Never How would you rate your fatigue on average? Severe How would you rate your pain on average? 0 = No Pain to 10 = Worst Imaginable Pain 8 In general, would you say your health is: 2 In general, would you say your quality of life is: 1 In general, how would you rate your physical health? 1 In general, how would you rate your mental health, including your mood and your ability to think? 2 In general, how would you rate your satisfaction with your social activities and relationships? 2 In general, please rate how well you carry out your usual social activities and roles. (This includes activities at home, at work and in your community, and responsibilities as a parent, child, spouse,employee, friend, etc.) 2 To what extent are you able to carry out your everyday physical activities such as walking, climbingstairs, carrying groceries, or moving a chair? 4 In the past 7 days, how often have you been bothered by emotional problems such as feeling anxious, depressed, or irritable? 1 In the past 7 days, how would you rate your fatigue on average? 4 In the past 7 days, how would you rate your pain on average, where 0 means no pain, and 10 means worst imaginable pain? 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 Painful orthopaedic hardware (H) documented in this encounter Care Teams Sccm Administrator Relationship Specialty Start Date End Date Josh Carrero PCP - General Family Medicine 08/09/[address] [address] Julian Spencer MD Orthopedics 03/08/20 MD Darell [address] [place] [phone] Julian Spencer Assigned Musculoskeletal 05/27/20 MD Darell Provider [facility] [place] [address] [phone] Urbano Price Assigned PCP 11/13/20 MD Esteban [facility] [place], [place] [phone] Joe eLo MD Physical Medicine and 04/11/[address] [place] [address] [phone] Joe Leo Assigned Neuroscience 04/30/21 MD Provider [address] [phone] Douglas Gonzalez MD Pediatrics 05/29/21 MD Julian [address] [phone] Douglas Gonzalez Assigned Pediatric 06/04/21 MD Julian Specialist Provider [facility] [address] [id number] documented as of this encounter
--- OUTSIDE RECORDS SUMMARY | 2022-06-18 11:54 | XMS_ITS | Encounter Summary ---
:2001 Author Organization [facility] Address [address] [place] [address] Care Team Providers Name Role Phone Julian Spencer MD Unavailable Julian Spencer MD Unavailable Josh Carrero Primary Care Provider Urbano Price MD Unavailable Joe Leo MD Unavailable Joe Leo MD Unavailable Douglas Gonzalez MD Unavailable [phone] Douglas Gonzalez MD Unavailable [phone] Encounter Details Date Type Department Care Team Description 12/11/2021 [facility] essive menstruation at puberty; Hospital POTS (postural orthostatic t achycardia syndrome); [address] Fatigue, unspecified type; [place] [address] Chronic pain syndrome; [phone] Platelet disord er (H) Social History Tobacco Use Types Packs/Day Years [...] Not on filedocumented as of this encounter Procedures Procedure Name Priority Date/Time Associated Diagnosis Comme nts CBC WITH PLATELETS AND Routine 12/11/2021 10:18 Platelet disor diony Results for this DIFFERENTIAL AM CDT (H) procedure are in Fatigue, unspecified the res ults type section. CBC WITH PLATELETS & Routine 12/11/2021 10:18 Platelet disorde r Results for this DIFFERENTIAL AM CDT (H) procedure are in Fatigue, unspecified the res ults type section. TSH WITH FREE T4 Routine 12/11/2021 10:18 Fatigue, unspecified Results for this REFLEX AM CDT type procedure are i n the results section. FERRITIN Routine 12/11/2021 10:18 Excessive Results for this AM CDT menstruation at procedure ar e in puberty the results POTS (postural section. orthostatic tachycardia syndrome) Fatigue, unspecified type CRP INFLAMMATION Routine 12/11/2021 10:18 Chronic pain Results for this AM CDT syndrome procedure are in Fatigue, unspecified the res ults type section. COMPREHENSIVE Routine 12/11/2021 10:18 Excessive Results fo r this METABOLIC PANEL AM CDT menstruation at procedure are in puberty the results Fatigue, unspecified section . type documented in this encounter Results CBC with platelets and differential (12/11/2021 10:18 AM CDT) Analysis Performed At Patho logist Time Signature WBC Count 5.9 4.0 - 11.0 12/11/2021 [facility] 10e3/uL 10:22 AM CDT RBC Count 4.54 3.80 - 12/11/2021 [facility] 5.20 10:22 AM CDT 10e6/uL Hemoglobin 13.4 11.7 - 12/11/2021 [facility] 15.7 g/dL 10:22 AM CDT Hematocrit 41.5 35.0 - 12/11/2021 [facility] 47.0 % 10:22 AM CDT MCV 91 78 - 100 12/11/2021 [facility] fL 10:22 AM CDT MCH 29.5 26.5 - 12/11/2021 [facility] 33.0 pg 10:22 AM CDT MCHC 32.3 31.5 - 12/11/2021 [facility] 36.5 g/dL 10:22 AM CDT RDW 12.9 10.0 - 12/11/2021 [facility] 15.0 % 10:22 AM CDT Platelet Count 272 150 - 450 12/11/2021 [facility] 10e3/uL 10:22 AM CDT % Neutrophils 51 % 12/11/2021 [facility] 10:22 AM CDT % Lymphocytes 37 % 12/11/2021 [facility] 10:22 AM CDT % Monocytes 8 % 12/11/2021 [facility] 10:22 AM CDT % Eosinophils 3 % 12/11/2021 [facility] 10:22 AM CDT % Basophils 1 % 12/11/2021 [facility] 10:22 AM CDT % Immature 0 % 12/11/2021 [facility] Granulocytes 10:22 AM CDT NRBCs per 100 WBC 0 <1 /100 12/11/2021 [facility] RY 10:22 AM CDT Absolute 3.0 1.6 - 8.3 12/11/2021 [facility] Neutrophils 10e3/uL 10:22 AM CDT Absolute 2.2 0.8 - 5.3 12/11/2021 [facility] Lymphocytes 10e3/uL 10:22 AM CDT Absolute 0.5 0.0 - 1.3 12/11/2021 [facility] Monocytes 10e3/uL 10:22 AM CDT Absolute 0.2 0.0 - 0.7 12/11/2021 [facility] Eosinophils 10e3/uL 10:22 AM CDT Absolute 0.0 0.0 - 0.2 12/11/2021 [facility] Basophils 10e3/uL 10:22 AM CDT Absolute Immature 0.0 <=0.4 12/11/2021 [facility] Granulocytes 10e3/uL 10:22 AM CDT Absolute NRBCs 0.0 10e3/uL 12/11/2021 [facility] 10:22 AM CDT Specimen Anatomical Collection Method / Collection Time Recei donal Time (Source) Location / Volume Laterality Blood STRUCTURE OF RIGHT Venipuncture / 12/11/2021 10:18 04/2022 UPPER LIMB / Unknown AM CDT 10:19 AM CDT Unknown Urbano Price MD LAB - BLOOD ORDERABLES Performing Organization Address City/State/ZIP Code [place] [address] Care Lab [address] Lab (1st floor, no room number) Comprehensive metabolic panel (12/11/2021 10:18 AM CDT) P athologist Signature Sodium 138 133 - 144 12/11/2021 [facility] mmol/L 10:50 AM CDT Potassium 4.1 3.4 - 5.3 12/11/2021 [facility] mmol/L 10:50 AM CDT Chloride 107 94 - 109 12/11/2021 [facility] mmol/L 10:50 AM CDT Carbon Dioxide [...] CDT Glucose 87 70 - 99 12/11/2021 [facility] mg/dL 10:50 AM CDT Alkaline 81 40 - 150 12/11/2021 [facility]ORY Phosphatase U/L 10:50 AM CDT AST 19 0 - 45 U/L 12/11/2021 [facility] 10:50 AM CDT ALT 23 0 - 50 U/L 12/11/2021 [facility] 10:50 AM CDT Protein Total 7.1 6.8 - 8.8 12/11/2021 [facility]ORATORY g/dL 10:50 AM CDT Albumin 3.9 3.4 - 5.0 12/11/2021 [facility] g/dL 10:50 AM CDT Bilirubin Total 0.5 0.2 - 1.3 12/11/2021 [facility] mg/dL 10:50 AM CDT GFR Estimate >90 >60 12/11/2021 [facility]ORATORY mL/min/1.7 10:50 AM CDT 3m2 Comment: Effective July 25, 2021 eGF Rcr in adults is calculated using the 2020 CKD-EPI creatinine equation which includ es age and gender (Liset et al., [place], DOI: 10.1056/RBMJsc6162780) Specimen Anatomical Collection Method / Collection Time Recei donal Time (Source) Location / Volume Laterality Blood STRUCTURE OF RIGHT Venipuncture / 12/11/2021 10:18 04/2022 UPPER LIMB / Unknown AM CDT 10:19 AM CDT Unknown Urbano Price MD LAB - BLOOD ORDERABLES Performing Organization Address City/[facility]/[place] [address] Care Lab [address] Lab (1st floor, no room number) [...] Address City/[facility]/[place] [address] Care Lab [address] Lab (1st floor, no room number) TSH with free T4 reflex (12/11/2021 10:18 AM CDT) P athologist Signature TSH 2.21 0.40 - 4.00 [...] Address City/[facility]/[place] [phone] Care Lab [address] Lab (1st floor, no room number) (ABNORMAL) Ferritin (12/11/2021 10:18 AM CDT) P athologist Signature Ferritin 11 (L) 12 - [...] Organization Address City/State/ZIP Code [place] [phone] Care Lab [address] Lab (1st floor, no room number) documented in this encounter Visit Diagnoses Diagnosis Excessive menstruation at puberty Puberty bleeding POTS (postural orthostatic tachycardia s yndrome) Tachycardia, unspecified Fatigue, unspecified type Chronic pain syndrome Platelet disorder (H) Qualitative platelet defects documented in this encounter Care Teams Wax Molder Relationship Specialty Start Date End Date Josh Carrero PCP - General Family Medicine 08/09/[address] [address] Julian Spencer MD Orthopedics 03/08/20 MD Darell [address] [place] [address] Julian Spencer Assigned Musculoskeletal 05/27/20 MD Darell Provider [address] [place] [address] Urbano Price Assigned PCP 11/13/20 MD Esteban [facility] [place] [address] Joe Leo MD Physical Medicine and 04/11/[address] [place] [address] 297 [place], [place] [phone] Joe Leo, Assigned Neuroscience 04/30/21 MD Provider 420 [facility] [address] [place], [place] [phone] Douglas Gonzalez MD Pediatrics 05/29/21 MD Julian [address] [place] [phone] Douglas Gonzalez Assigned Pediatric 06/04/21 MD Julian Specialist Provider [facility] [address] [phone] documented as of this encounter
--- OUTSIDE RECORDS SUMMARY | 2022-06-18 11:54 | XMS_ITS | Encounter Summary ---
:2001 Author Organization [facility] Address [address] [place] [address] Care Team Providers Name Role Phone Julian Spencer MD Unavailable Julian Spencer MD Unavailable Josh Carrero Primary Care Provider Urbano Price MD Unavailable Joe Leo MD Unavailable Joe Leo MD Unavailable Douglas Gonzalez MD Unavailable [phone] Douglas Gonzalez MD Unavailable [phone] Encounter Details Date Type Department Care Team Description 08/24/2021 Travel Social History Tobacco Use Types Packs/Day [...] with No / Unsure 08/24/2021 3:05 PM VICE ADMIRAL someone who was confirmed or suspected to have Coronavirus / COVID-19? documented as of this encounter Plan of Treatment Not on filedocumented as of this encounter Visit Diagnoses Not on filedocumented in this encounter Care Teams Band Saw Runner Relationship Specialty Start Date End Date Josh Carrero PCP - General Family Medicine 08/09/[address] [address] Julian Spencer MD Orthopedics 03/08/20 MD Darell [address] [place] [address] Julian Spencer Assigned Musculoskeletal 05/27/20 MD Darell Provider [address] [place] [address] Urbano Price Assigned PCP 11/13/20 MD Esteban [address] [place] [address] Joe Leo MD Physical Medicine and 04/11/21 MD Rehabilitation [address] [place] [address] Joe Leo, Ade Neuroscience 04/30/21 MD Provider [address] [address] Douglas Gonzalez MD Pediatrics 05/29/21 MD Julian [address] [place] [address] [id number] Douglas Gonzalez Assigned Pediatric 06/04/21 MD Julian Specialist Provider [address] [place] [address] documented as of this encounter
--- OUTSIDE RECORDS SUMMARY | 2022-06-18 11:54 | XMS_ITS | Encounter Summary ---
:2000 Author Organization [facility] [place] [address] Care Team Providers Name Role Phone Julian Spencer MD Unavailable Julian Spencer MD Unavailable Josh Carrero Primary Care Provider Urbano Priec MD Unavailable Joe Leo MD Unavailable Joe Leo MD Unavailable Douglas Gonzalez MD Unavailable [phone] Douglas Gonzalez MD Unavailable [phone] Reason for Visit Reason Comments RECHECK Pt here for endocrine follow up Encounter Details Date Type Department Care Team Description 08/22/2021 Office Visit [facility] Urbano Price Pseudar throsis following spinal fusion (Primary Dx); Estefany Pediatric MD Esteban Neuromuscular scoliosis of thoracolumbar region; Specialty Clinic [address] [place] [address] S/P spinal fusion; [facility] S History of inhaled steroid therapy; [place], [place] Localized osteoporosis witho ut current pathological fracture 9th Floor [id number] [facility] [phone] [place], [place] (Work) [phone] Social History Tobacco Use Types Packs/Day Years Used Date Smoking Tobacco: Never Smokeless Tobacco: Never Alcohol Use Standard Drinks/Week Comments Not Currently 0 (1 standard drink = 0.6 oz pure alcoho l) Sex Assigned at Date Recorded Female 12/02/2020 1:42 PM CDT COVID-19 Exposure Response Date Recorded In the last month, have you been in contact with No / Unsure 08/22/2021 2:46 PM CONTAINER FINISHING INSPECTOR someone who was confirmed or suspected to have Coronavirus / COVID-19? documented as of this encounter Last Filed Vital Signs Vital Sign Reading Time Taken Comments Blood Pressure 109/71 08/22/2021 2:57 PM CONTAINER FINISHING INSPECTOR Pulse 71 08/22/2021 2:57 PM CONTAINER FINISHING INSPECTOR Temperature 36.9 ??C (98.4 ??F) 08/22/2021 2:57 PM CONTAINER FINISHING INSPECTOR Respiratory Rate 16 08/22/2021 2:57 PM CONTAINER FINISHING INSPECTOR Oxygen Saturation 100% 08/22/2021 2:57 PM CONTAINER FINISHING INSPECTOR Inhaled Oxygen Concentration - - Weight 57.6 kg (126 lb 15.8 oz) 08/22/2021 2:57 PM CONTAINER FINISHING INSPECTOR Height 160.9 cm (5' 3.35) 08/22/2021 2:57 PM CONTAINER FINISHING INSPECTOR Body Mass Index 22.25 08/22/2021 2:57 PM CONTAINER FINISHING INSPECTOR documented in this encounter Patient Instructions Patient InstructionsMiUrbano mejia MD - 08/22/2021 3:00 PM CST Thank you for choosing [facility]. It was a pleasure to see you today. Providers: [place]: MD Ethel Barrera MD Eric Bomberg MD Sandy Chen Liu, MD Bradley Miller MD PhD Pilar Oneill [facility] Care Coordinators (non urgent calls) Mon- Fri: Catalina Tay MS RN [phone] Millicent Pantoja RN, CPN [phone] Bandage Wrapping Machine Operator fax: [phone] Growth Hormone: Sharda John CMA [phone] Please leave a message on one line only. Calls will be returned as soon as possible once your physician has reviewed the results or questions. Medication renewal requests must be faxed to the main office by your pharmacy. Allow 3-4 days for completion. Mailing Address: Pediatric Endocrinology Academic Office Building [address] [place] [id number] Test results may be available via CareXtend prior to your provider reviewing them. Your provider will review results as soon as possible once all labs are resulted. Abnormal results will be communicated to you via Inotec AMDt, telephone call or letter. Please allow 2 -3 weeks for processing/interpretation of most lab work. If you live in the [facility] area and need labs, we request that the labs be done at an [facility] facility. [facility] locations are listed on the [email or web address] website. Please call that site for a lab time. For urgent issues that cannot wait until the next business day, call [phone] and ask for the Pediatric Design Studio Consultant convex grinder. Scheduling: Pediatric Call Center: [phone] for [facility] - 3rd floor [facility] Building [facility] 9th floor [facility] [phone] (for stimulation tests) Radiology/ [phone] Elderly Caregiver Services: [phone] Please sign up for CareXtend for easy and HIPAA compliant confidential communication. Sign up at the clinic front office clerk or go to [email or web address] Patients must be seen in clinic annually to continue to receive prescriptions and test results. Patients on growth hormone must be seen twice yearly. COVID-19 Recommendations: Pediatric Endocrinology The Division of Endocrinology at the [facility] encourages our patients to receive vaccination against the SARS CoV2 virus that causes COVID-19. At this time, the only vaccine approved in children is the Pfizer vaccine for children 12 years or older. If you are12 years or older, we encourage you to receive the first vaccine that is available to you. Please go to [email or web address] to register to receive your vaccine at an [facility] location. Once you are registered, you will be contacted to schedule an appointment when vaccine is available. Please go to [email or web address] to register to receive your vaccine through the [facility] Vaccine Connector portal. You will be contacted to schedule an appointment when vaccine is available. You can also register to receive the vaccine from a local pharmacy. As vaccines receive Emergency Use Authorization or Approval by the FDA for younger ages, we recommend that all children with endocrine disorders receive the vaccine unless there is an allergy to the vaccine or its ingredients. Children receiving endocrine medications such as growth hormone, hydrocortisone or levothyroxine are still eligible to receive the vaccination. If you would like to get your child tested for COVID-19, please go to [email or web address] for information about [facility] testing locations. Your child has been seen in the Pediatric Endocrinology Specialty Clinic. Our goal is to co-manage your child's medical care along with their primary care physician. We manage care needs related to theendocrine diagnosis but primary care issues including preventative care or acute illness visits, COVID concerns, camp forms, etc must be managed by your local primary care physician. Please inform our coordinators if the patient has any emergency department visits or hospitalizations related to their endocrine diagnosis. Please refer to the CDC and [facility] department of health websites for information regarding precautions surrounding COVID-19. At this time, there is no evidence to suggest that your child's endocrine diagnosis increases risk for sarita COVID-19. This is an ongoing area of research, however,and we will update you as further research becomes available. Instructions: We will await the plan from Dr. Spencer to determine whether to continue parathyroid hormone therapy. AINER FINISHING INSPECTOR documented in this encounter Progress Notes Urbano Price MD - 08/22/2021 3:00 PM CST Pediatric Endocrinology Follow-Up Evaluation Patient: Dakota [place] Date of : 2000 Age: 21year 0month old Date of Visit: Aug 22, [address] Spencer: I had the pleasure of seeing your patient, Dakota Cas[place] in the Pediatric Endocrinology Clinic, [facility], on Aug 22, 2021 for follow-up evaluation regarding poor healing following spinal fusion. Problem list: Patient Active Problem List Diagnosis Date Noted ??? Localized osteoporosis without current pathological fracture 08/22/2021 Priority: Medium ??? Pseudarthrosis following spinal fusion 10/13/2020 Priority: Medium ??? History of inhaled steroid therapy 10/13/2020 Priority: Medium ??? Pancreatic insufficiency 10/13/2020 Priority: Medium ??? Excessive menstruation at puberty 10/13/2020 Priority: Medium ??? POTS (postural orthostatic tachycardia syndrome) 10/13/2020 Priority: Medium ??? Neuropathic pain 08/31/2020 Priority: Medium ??? S/P spinal fusion 08/31/2020 Priority: Medium ??? Inflammation of operative incision 08/31/2020 Priority: Medium ??? Platelet disorder (H) 08/16/2020 Priority: Medium ??? Chronic musculoskeletal pain 08/10/2020 Priority: Medium Class: Chronic ??? Chronic pain syndrome 08/10/2020 Priority: Medium ??? Scoliosis 07/21/2020 Priority: Medium Added automatically from request for surgery [id number] ??? Painful orthopaedic hardware (H) 07/21/2020 Priority: Medium Added automatically from request for surgery [id number] ??? Neuromuscular scoliosis of thoracolumbar region 05/05/2020 Priority: Medium ??? Other secondary scoliosis, thoracolumbar region 05/05/2020 Priority: Medium ??? Tethered cord (H) 05/05/2020 Priority: Medium HPI: Dakota [place] is a 21 year old female with a history of scoliosis status post spinal fusion who comesto clinic today for evaluation of poor healing following spinal fusion. First surgery was in November 2015 with Tethered Cord. First spinal fusion was January 2016. They totally removed and replaced hardware February 2019 and did bone grafting. Were due to remove it forever in May 2020, but left it in until August 2020 but was found to have areas of poor healing at that time. Due to the poor healing, the hardware was replaced. They have had to remove some pieces after multiple surgeries related to pain and reaction to the metals making them wonder if she is allergic to the metal. Dr. Spencer contact me in August 2020 to discuss his concerns about Dakota's poor healing of the spine and asked me to investigate possible causes of her poor healing as well as possible therapies. She has had a lot of pain. In the past, they have removed screws and crosslinks. In the past the reactions would show up within 3-4 months of the surgery. She had two fractures, one of each of ankle that required a boot brace. She was running and rolled her ankle for one. She also fell off the monkey bars. She fell on her bottom on the wet kitchen floor and broke tail bone. She has had a low calcium in the past and has been on calcium supplementation. She had menarche at 13 years of age. Due to severe menorrhagia she has been on oral contraceptive pills since 14 years of age and has no regular cycle. I have reviewed the available past laboratory evaluations, imaging studies, and medical records available to me at this visit. INTERIM HISTORY: Since the visit on 10/13/2020, Dakota has been generally healthy with no major changes to her health. She was started on Forteo injections due to pseudarthrosis of the spine in early 2020 after laboratory studies came back unremarkable for clear etiology of bone health. She is doing the Forteo injections daily in the back of the legs. She alternates which leg she is doing the injections. She has tried doing the injections in her stomach, but did not like this. She has noticed that she has had bruising in the areas by the Forteo injections, although not always in the area directly where the injection was done. The bruising happens intermittently and does not occur with every in jection. She does have a known platelet disorder and has history of frequent bruising. After starting the Forteo, Dakota did not notice any changes in her pain. However, her bone pain did worsen last year after Botox injections. The pain is located diffusely throughout her back and is worse in her right lower back. The back pain never complete dissipates, but is mostly manageable. Dakota also has intermittent pain in her legs that she describes as sharp that started after her last hardware replacement surgery. She is followed by PAACT and PM&R. She has tried multiple medications andmodalities for pain management. In the interim, she has not had any fractures. No kidney stones or hematuria. Denies any temperatureintolerance. 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 No vomiting or diarrhea. She has not had any further surgical procedures since last being seen. She has follow-up with Dr. Spencer of orthopedic surgery in two days. At this appointment, will discuss plans to remove hardware. History was obtained from patient and patient's mother. Both provided about 50% of the history of symptoms, mom provided the majority of the past medical history. Past Medical History: Past Medical History: Diagnosis Date ??? PONV (postoperative nausea and vomiting) ??? Scoliosis Hip dysplasia treated with David harness until 11 months. Past Surgical History: Past Surgical History: Procedure Laterality Date ??? EXPLORE SPINE, REMOVE HARDWARE, COMBINED N/A 08/09/2020 Procedure: Reinsert Segmental Instrumentation Thoracic 4 - Lumbar 4, pseudarthrosis repair four sites, image guided surgery, Scar Revision, Skin Biopsy; Surgeon: Julian Spencer MD; Location: [facility] OR ??? OPTICAL TRACKING SYSTEM FUSION SPINE POSTERIOR THORACIC CHILD THREE+ LEVELS 08/09/2020 Procedure: Optical tracking system fusion spine posterior thoracic child three+ levels; Surgeon: Julian Spencer MD; Location: [facility] OR Social History: She attends [employer]. Studying pre-[employer]. 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 She is living at home. Family History: Father is 5 feet 10 inches tall. Mother is 5 feet 7 inches tall. Mother's menarche is at age 1414 years old. Mom has a history of hypothyroidism and past history of kidney stones. Dad is healthy. Mom started having kidney stones at age 13 years and none since 25 years old. She thinks they might have been uric acid. Father???s pubertal progression : is unknown Midparental Height is 5 feet 6 inches (167.7 cm, 75th percentile). Siblings: Brother is 6'1 tall. He has History of: Adrenal insufficiency: Brother with Stan's Disease at 16 years of age. Autoimmune disease: none. Calcium problems: none. Delayed puberty: none. Diabetes mellitus: Maternal grandfather. Early puberty: none. Genetic disease: none. Short stature: none. Thyroid disease: Hypothyroidism in mom (Diagnosed at 16 years old) and brother (Diagnosed at 12 years old). Mom and brother have had fractures, but no fragility fractures. No Family History of arthritis. Reviewed and unchanged. Allergies: Allergies Allergen Reactions ??? Dust Mites Itching Other reaction(s): Itching,Watering Eyes ??? Gluten Meal Other reaction(s): GI Reaction ??? Hydromorphone Other (See Comments) All forms (enteral and IV) cause confusion, delirium, aggression. Avoid. Medications: Current Outpatient Medications Medication Sig Dispense Refill ??? acetaminophen (TYLENOL) 500 MG tablet Take 1000 mg every six hours for 2 days after discharge, then as needed (every six hours) after that. ??? baclofen (LIORESAL) 10 MG tablet Take 0.5-1 tablets (5-10 mg) by mouth 3 times daily Start 5mg daily x3 days, then 5mg BID, then 5mg TID 90 tablet 1 ??? cholecalciferol (VITAMIN D3) 125 mcg (5000 units) capsule Take by mouth daily ??? diazepam (VALIUM) 2 MG tablet Take 0.5 tablets (1 mg) by mouth every 6 hours as needed for anxiety 30 tablet 1 ??? fluticasone (FLONASE) 50 MCG/ACT nasal spray INHALE ONE TO TWO SPRAYS INTO BOTH NOSTRILS ONCE DAILY ??? HYDROcodone-acetaminophen (NORCO) 5-325 MG tablet Take 1 tablet by mouth every 6 hours as needed ??? hydrOXYzine (ATARAX) 10 MG tablet TAKE ONE TABLET BY MOUTH EVERY 8 HOURS NEEDED FOR ANXIETY ??? hydrOXYzine (ATARAX) 25 MG tablet TAKE ONE TABLET BY MOUTH EVERY DAY NEEDED ??? hydrOXYzine (ATARAX) 50 MG tablet TAKE ONE TABLET BY MOUTH EVERY DAY NEEDED ??? Lidocaine (LIDOCARE) 4 % Patch Place 1-2 patches on skin over painful area. Leave on for 12 hours, then keep off for 12 hours. Repeat daily. 30 patch 3 ??? naloxone (NARCAN) 4 MG/0.1ML nasal spray [place] 1 spray (4 mg) into one nostril alternating nostrils as needed for opioid reversal every 2-3 minutes until assistance arrives 0.2 mL 0 ??? Norethindrone Acet-Ethinyl Est (LOESTRIN 08/24, , PO) Take by mouth daily ??? ondansetron (ZOFRAN-ODT) 8 MG ODT tab DISSOLVE ONE TABLET BY MOUTH THREE TIMES A DAY NEEDED ??? pregabalin (LYRICA) 150 MG capsule Take 1 capsule (150 mg) by mouth 2 times daily 60 capsule 3 ??? sertraline (ZOLOFT) 100 MG tablet Take 1 tablet (100 mg) by mouth daily ??? teriparatide, recombinant, (FORTEO) 600 MCG/2.4ML SOPN injection Inject 0.08 mLs (20 mcg) Subcutaneous daily 2.4 mL 5 ??? Teriparatide, Recombinant, (FORTEO) 620 MCG/2.48ML SOPN injection Inject 0.08 mLs (20 mcg) Subcutaneous daily 2.48 mL 1 ??? tranexamic acid (LYSTEDA) 650 MG tablet Take 1 tablet (650 mg) by mouth 3 times daily as needed (for bleeding control. May increase to 2 tablets for significant bleeding.) May use for up to 3-5 days. 20 tablet 3 ??? tranexamic acid (LYSTEDA) 650 MG tablet Take 1.5 tablets every six hours as needed for persistent bleeding. 15 tablet 0 ??? traZODone (DESYREL) 50 MG tablet Take 50 mg by mouth nightly as needed ??? amoxicillin (AMOXIL) 500 MG capsule TAKE ONE CAPSULE BY MOUTH THREE TIMES A DAY FOR 5 DAYS ??? celecoxib (CELEBREX) 100 MG capsule Take 1 capsule (100 mg) by mouth 2 times daily 60 capsule 0 ??? methylPREDNISolone (MEDROL DOSEPAK) 4 MG tablet therapy pack TAKE DIRECTED, PLEASE DISCARD 3 TABLETS FROM 1ST DAYS DOSE Review of Systems: Gen: Negative Eye: Negative ENT: History of frequent otitis media with tubes x 2. No ear pain today. She has a history of frequent dental caries, but no report of enamel problems. Pulmonary: Asthma with inhaler treatment from 6th to 10th grades with albuterol and inhaled steroid.She received a few courses of steroids (prednisone) in the spring about 4 times. There was a concernabout vocal cord dysfunction while running as a sophomore in high school. She had croup annually until 11 years of age and received steroid with this until age 6 years. Cardio: POTS for which she takes salt pills. She started having it on [employer] Bowsaturday. She has had some fainting episodes since then but is more self aware. Overall, symptoms of POTS are improved. Gastrointestinal: She had issues of abdominal pain from 8 years to 17 years and was on pancreatic enzymes. She has to go the bathroom soon after she eats. She gets an upset stomach easily. She rarely vomits. Hematologic: Bruises easily and has a bleeding disorder and was seen by Dr. Atwood for this. Genitourinary: Negative, no dysuria or hematuria. No nocturia, polydipsia or polyuria. Musculoskeletal: See HPI. Psychiatric: Negative Neurologic: She gets headaches once or twice per week that relate to worsening of her back pain. Skin: No wound healing issues (delays). She had a keloid with one previous surgery but none others. Endocrine: see HPI. No symptoms of hypoglycemia. Physical Exam: Blood pressure 109/71, pulse 71, temperature 98.4 ??F (36.9 ??C), temperature source Oral, resp. rate 16, height 1.609 m (5' 3.35), weight 57.6 kg (126 lb 15.8 oz), SpO2 100 %. Growth percentile SmartLinks can only be used for patients less than 20 years old. Height: 160.9 cm Facility age limit for growth percentiles is 20 years. Weight: 57.6 kg (actual weight), Facility age limit for growth percentiles is 20 years. BMI: Body mass index is 22.25 kg/m??. Facility age limit for growth percentiles is 20 years. GENERAL: She is alert and in no apparent distress. HEENT: Head is normocephalic and atraumatic. Pupils equal, round and reactive to light and accommodation. The sclerae were not blue or jauregui. Extraocular movements are grossly intact. Nares are clear. Oropharynx shows normal dentition uvula and palate. Tympanic membranes visualized and clear. NECK: Supple. Thyroid was nonpalpable. LUNGS: Clear to auscultation bilaterally. CARDIOVASCULAR: Regular rate and rhythm without murmur, gallop or rub. BREASTS: Deferred. ABDOMEN: Nondistended. Positive bowel sounds, soft and nontender. No hepatosplenomegaly or masses palpable. GENITOURINARY EXAM: Deferred. MUSCULOSKELETAL: Normal muscle bulk and tone. Scoliosis status post surgical correction. There is mild tenderness to palpation or percussion diffusely over spine, worse in thoracic vertebrae. Pain withpalpation to paravertebral muscles bilaterally. NEUROLOGIC: Cranial nerves II-XII grossly intact. Deep tendon reflexes 2+ and symmetric. Negative Chovstek's sign. SKIN: No visualized rashes or lesions. No evidence of injection reactions at injection sites. Laboratory results: Results for orders placed or performed in visit on 08/22/21 1,25 Dihydroxyvitamin D Status: Normal Result Value Ref Range 1,25 Dihydroxyvitamin D 76.1 19.9 - 79.3 pg/mL Calcium random urine with Creat Ratio Status: None Result Value Ref Range Calcium Urine mg/dL 10.5 mg/dL Calcium Urine g/g Cr 0.18 g/g Cr Creatinine Urine mg/dL 58 mg/dL Narrative The reference ranges have not been established in random urine for calcium, creatinine and the calcium g/g creatinine. The results should be integrated into the clinical context for interpretation. Phosphorus Status: Normal Result Value Ref Range Phosphorus 4.4 2.5 - 4.5 mg/dL Comprehensive metabolic panel Status: Normal Result Value Ref Range Sodium 139 133 - 144 mmol/L Potassium 4.0 3.4 - 5.3 mmol/L Chloride 105 94 - 109 mmol/L Carbon Dioxide (CO2) 30 20 - 32 mmol/L Anion Gap 4 3 - 14 mmol/L Urea Nitrogen 14 7 - 30 mg/dL Creatinine 0.66 0.52 - 1.04 mg/dL Calcium 8.8 8.5 - 10.1 mg/dL Glucose 74 70 - 99 mg/dL Alkaline Phosphatase 118 40 - 150 U/L AST 18 0 - 45 U/L ALT 26 0 - 50 U/L Protein Total 6.9 6.8 - 8.8 g/dL Albumin 3.8 3.4 - 5.0 g/dL Bilirubin Total 0.3 0.2 - 1.3 mg/dL GFR Estimate >90 >60 mL/min/1.73m2 Parathyroid Hormone Intact Status: Normal Result Value Ref Range Parathyroid Hormone Intact 38 18 - 80 pg/mL Assessment and Plan: 1. Osteoporosis based upon poor healing following spine instrumentation with multiple pseudoarthroses. 2. Scoliosis status post repair 3. History of chronic inhaled and intermittent oral glucocorticoids for pulmonary concerns includingasthma and croup. 4. Postural orthostatic tachycardia syndrome 5. Menorrhagia on oral contraceptive therapy 6. History of pancreatic insufficiency and chronic abdominal pain Dakota has several potential causes of low bone mineral density that could impair her ability to healfrom spinal instrumentation. The first is her history of chronic inhaled and intermittent oral glucocorticoids for treatment of asthma and croup. The doses that she received were not excessive and would not be expected to cause any long-term bone healing issues. In addition, she was no longer receiving these treatments at the time of her surgical interventions. The second potential cause includes pancreatic insufficiency that can cause malabsorption of fat soluble vitamin such as vitamin D. However,vitamin D levels have consistently been within normal range. Dakota has had a DXA scan to evaluate her bone mineral density. The bone mineral density of the lumbar spine and total body bone mineral density was also within the normal range. Therefore, based upon the imaging, there is no evidence of osteoporosis or low bone mineral density. Laboratory evaluation completed last visit was reassuring against metabolic bone disorder. Thus, at this time, there is no clear etiology of Dakota's poor bone healing. Due to no clear etiology of her poor bone healing, Dakota was started on Forteo, a synthetic parathyroid hormone, to increase bone mineral density in her spine. With Forteo, the ultimate goal is the eventual removal of spinal hardware, which has been unable to be completed in the past due to poor bone healing with evidence of pseudarthrosis. While Dakota is not having any adverse side effects of Forteo, studies have demonstrated there is limited efficacy of continuing Forteo after one year. If Dakota were to derive benefit for Forteo, she would have likely already had these benefits. Thus at this time, pending discussion with Dr. Spencer, I would recommend discontinuing Forteo injections in the near future, as she is unlikely to have further benefits for her bone health. If there are still concerns for poor bone healing, please have Dakota follow-up in endocrinology clinic to discuss further therapeutics. This would be with the adult bone specialist, Maria C Watson MD. Otherwise, no further en docrinology follow-up is necessary unless other endocrine concerns arise. Instructions: We will obtain labs evaluating for overall bone health. I suspect these will be normal, as they have been prior to therapy. Pending normal labs and discussion with Dr. Spencer, I recommend discontinuing Forteo injections in the near future, as studies have demonstrated limited efficacy of Forteo use beyond one year of treatment. Orders Placed This Encounter Procedures ??? Vitamin D2 + D3, 25 Hydroxy ??? 1,25 Dihydroxyvitamin D ??? Bone specific alk phosphatase ??? Calcium random urine with Creat Ratio ??? Phosphorus ??? Comprehensive metabolic panel ??? Osteocalcin ??? C-Telopeptide, Edcx-Dceij-Ovvmkx ??? Parathyroid Hormone Intact ??? N-Telopeptide Cross-Linked Serum RESULTS INTERPRETATION: The calcium, phosphorus, urine calcium to creatinine ratio, PTH and 1,25-dihydroxy vitamin D are normal. Additional results including bone markers are pending. Thank you for allowing me to participate in the care of your patient. Please do not hesitate to callwith questions or concerns. Sincerely, Maribel Weaver MD Department of Pediatrics, PGY1 Supervised by: I have personally examined the patient, reviewed and edited the resident's note and agree with the plan of care. Urbano Price MD, PhD Professor Pediatric Endocrinology [facility] [id number] time by Dr. Price 30 minutes, total visit time 40 minutes on date of visit including review of records and documentation. CC Patient Care Team: Josh Carrero as PCP - General (Family Medicine) Julian Spencer MD as MD (Orthopedics) Julian Spencer MD as Assigned Musculoskeletal Provider Urbano Price MD as Assigned PCP Joe Leo MD as MD (Physical Medicine and Rehabilitation) Joe Leo MD as Assigned Neuroscience Provider Douglas Gonzalez MD as MD (Pediatrics) Douglas Gonzalez MD as Assigned Pediatric Specialist Provider Dakota Casiano [address] [place] [phone] AINER FINISHING INSPECTOR documented in this encounter Nursing Notes Samuel Walters, EMT - 08/22/2021 3:00 PM CST Chief Complaint Patient presents with ??? RECHECK Pt here for endocrine follow up BP 109/71 (BP Location: Right arm, Patient Position: Sitting, Cuff Size: Adult Regular) Pulse 71 Temp 98.4 ??F (36.9 ??C) (Oral) Resp 16 Ht 1.609 m (5' 3.35) Wt 57.6 kg (126 lb 15.8 oz) SpO2 100% BMI 22.25 kg/m?? No Pain (0) Data Unavailable I have reviewed the patients medications and allergies Height/weight double check needed? No Peds Outpatient BP 1) Rested for 5 minutes, BP taken on bare arm, patient sitting (or supine for infants) w/ legs uncrossed? Yes 2) Right arm used? Right arm Yes 3) Arm circumference of largest part of upper arm (in cm): 26cm 4) BP cuff sized used: Adult (25-32cm) If used different size cuff then what was recommended why? N/A 5) First BP reading:machine BP Readings from Last 1 Encounters: 08/22/21 109/71 Is reading >90%?No (90% for <1 years is 90/50) (90% for >18 years is 140/90) *If a machine BP is at or above 90% take manual BP 6) Manual BP reading: N/A 7) Other comments: None Samuel Walters, EMT August 22, 2021 AINER FINISHING INSPECTOR documented in this encounter Plan of Treatment Not on filedocumented as of this encounter Procedures Procedure Name Priority Date/Time Associated Diagnosis Comme nts 1,25 DIHYDROXYVITAMIN D Routine 08/22/2021 4:01 Pseudarthrosis Results for this PM CONTAINER FINISHING INSPECTOR following spinal procedure a re in fusion the results Localized section. osteoporosis without current pathological fracture N-TELOPEPTIDE Routine 08/22/2021 4:01 Pseudarthrosis Results f or this CROSS-LINKED SERUM PM CONTAINER FINISHING INSPECTOR following spinal proce dure are in fusion the results Localized section. osteoporosis without current pathological fracture C-TELOPEPTIDE, Routine 08/22/2021 4:01 Pseudarthrosis Results for this TETT-CJEPR-IOWQPM PM CONTAINER FINISHING INSPECTOR following spinal proced ure are in fusion the results Localized section. osteoporosis without current pathological fracture 25 HYDROXYVITAMIN D2 & Routine 08/22/2021 4:01 Pseudarthrosis Results for this D3 PM CONTAINER FINISHING INSPECTOR following spinal procedure a re in fusion the results Localized section. osteoporosis without current pathological fracture OSTEOCALCIN Routine 08/22/2021 4:01 Pseudarthrosis Results fo r this PM CONTAINER FINISHING INSPECTOR following spinal procedure a re in fusion the results Localized section. osteoporosis without current pathological fracture PHOSPHORUS Routine 08/22/2021 4:01 Pseudarthrosis Results fo r this PM CONTAINER FINISHING INSPECTOR following spinal procedure a re in fusion the results Localized section. osteoporosis without current pathological fracture PARATHYROID HORMONE Routine 08/22/2021 4:01 Pseudarthrosis Res ults for this INTACT PM CONTAINER FINISHING INSPECTOR following spinal procedure a re in fusion the results Localized section. osteoporosis without current pathological fracture COMPREHENSIVE METABOLIC Routine 08/22/2021 4:01 Pseudarthrosis Results for this PANEL PM CONTAINER FINISHING INSPECTOR following spinal procedure a re in fusion the results Localized section. osteoporosis without current pathological fracture CALCIUM RANDOM URINE Routine 08/22/2021 4:01 Pseudarthrosis Re sults for this PM CONTAINER FINISHING INSPECTOR following spinal procedure a re in fusion the results Localized section. osteoporosis without current pathological fracture BONE SPECIFIC ALK Routine 08/22/2021 4:01 Pseudarthrosis Resul ts for this PHOSPHATASE PM CONTAINER FINISHING INSPECTOR following spinal procedure a re in fusion the results Localized section. osteoporosis without current pathological fracture documented in this encounter Results N-Telopeptide Cross-Linked Serum (08/22/2021 4:01 PM CONTAINER FINISHING INSPECTOR) athologist Signature N-Telopeptide 19.9 nM BCE 08/26/2021 [facility] X-Link 9:12 AM CONTAINER FINISHING INSPECTOR Comment: INTERPRETIVE INFORMATION: N-Telopeptide, Cross-Linked, Serum ??Adult Male.......................5.4 - 24.2 nM BCE ??Premenopausal Adult Female.......6.2 - 19.0 nM BCE The target value for treated post-menopa usal adult females is the same as the premenopausal referen ce interval. BCE = Bone Collagen Equivalent Performed By: [facility] [address] [place] [address] Butter Wrapper: Brandi Dooley MD Specimen Anatomical Collection Method / Collection Time Recei donal Time (Source) Location / Volume Laterality Blood STRUCTURE OF LEFT Venipuncture / 08/22/2021 4:01 08/22 4:02 UPPER LIMB / Unknown PM CONTAINER FINISHING INSPECTOR PM CONTAINER FINISHING INSPECTOR Unknown Urbano Price MD LAB - BLOOD ORDERABLES Performing Organization Address City/State/ZIP Code Phon e Number [employer] [place], [place] [phone] 500 [facility] [address] Parathyroid Hormone Intact (08/22/2021 4:01 PM CONTAINER FINISHING INSPECTOR) athologist Signature Parathyroid 38 18 - 80 08/22/2021 [facility] Hormone Intact pg/mL 7:03 PM CONTAINER FINISHING INSPECTOR Specimen Anatomical Collection Method / Collection Time Recei donal Time (Source) Location / Volume Laterality Blood STRUCTURE OF LEFT Venipuncture / 08/22/2021 4:01 08/22 4:02 UPPER LIMB / Unknown PM CONTAINER FINISHING INSPECTOR PM CONTAINER FINISHING INSPECTOR Unknown Urbano Price MD LAB - BLOOD ORDERABLES Performing Organization Address City/State/ZIP Code Phon e Number LABORATORY [facility] [place] [address] Lab 500 [facility] J [facility], Room 3-580 C-Telopeptide, Slye-Qnvhi-Iiulgc (08/22/2021 4:01 PM CONTAINER FINISHING INSPECTOR) athologist Signature C-Telopept 547 64 - 749 08/25/2021 [facility] B-X-Linked pg/mL 7:28 AM CONTAINER FINISHING INSPECTOR Comment: Postmenopausal Females: 104-1008 pg/mL REFERENCE INTERVAL: C-Telopeptide, Beta- Cross-Linked, Serum Access complete set of age- and/or gende r-specific reference intervals for this test in the [facility] Test Directory ([employer]). Performed By: [employer] [address] [place] [address] Butter Wrapper: Brandi Dooley MD Specimen Anatomical Collection Method / Collection Time Recei donal Time (Source) Location / Volume Laterality Blood STRUCTURE OF LEFT Venipuncture / 08/22/2021 4:01 08/22 4:02 UPPER LIMB / Unknown PM CONTAINER FINISHING INSPECTOR PM CONTAINER FINISHING INSPECTOR Unknown Urbano Price MD LAB - BLOOD ORDERABLES Performing Organization Address City/[facility] Code Phon e Number [facility] [employer] [facility] [place], [place] [phone] 500 [facility] [address] Osteocalcin (08/22/2021 4:01 PM CONTAINER FINISHING INSPECTOR) athologist Signature Osteocalcin by 47 11 - 50 08/25/2021 [facility] ECIA ng/mL 7:28 AM CONTAINER FINISHING INSPECTOR Comment: INTERPRETIVE INFORMATION: Osteocalcin by ECIA In patients with renal failure the osteo calcin result can be elevated, both directly, due to impai red clearance and indirectly, due to renal osteodystrophy. Access complete set of age- and/or gende r-specific reference intervals for this test in the [facility] Test Directory ([employer]). Performed By: [facility] [address] [place] [address] Butter Wrapper: Brandi Dooley MD Specimen Anatomical Collection Method / Collection Time Recei donal Time (Source) Location / Volume Laterality Blood STRUCTURE OF LEFT Venipuncture / 08/22/2021 4:01 08/22 4:02 UPPER LIMB / Unknown PM CONTAINER FINISHING INSPECTOR PM CONTAINER FINISHING INSPECTOR Unknown Urbano Price MD LAB - BLOOD ORDERABLES Performing Organization Address City/State/ZIP Code Phon e Number [employer] [place], [place] [phone] 500 [facility] [address] Comprehensive metabolic panel (08/22/2021 4:01 PM CONTAINER FINISHING INSPECTOR) P athologist Signature Sodium 139 133 - 144 08/22/2021 [facility] mmol/L 4:36 PM CONTAINER FINISHING INSPECTOR LABORATORY Potassium 4.0 3.4 - 5.3 08/22/2021 [facility] mmol/L 4:36 PM CONTAINER FINISHING INSPECTOR LABORATORY Chloride 105 94 - 109 08/22/2021 [facility] mmol/L 4:36 PM CONTAINER FINISHING INSPECTOR LABORATORY Carbon Dioxide 30 20 - 32 08/22/2021 [facility] (CO2) mmol/L 4:36 PM CONTAINER FINISHING INSPECTOR LABORATORY Anion Gap 4 3 - 14 08/22/2021 [facility] mmol/L 4:36 PM CONTAINER FINISHING INSPECTOR LABORATORY Urea Nitrogen 14 7 - 30 08/22/2021 [facility] mg/dL 4:36 PM CONTAINER FINISHING INSPECTOR LABORATORY Creatinine 0.66 0.52 - 08/22/2021 [facility] 1.04 mg/dL 4:36 PM CONTAINER FINISHING INSPECTOR LABORATORY Calcium 8.8 8.5 - 10.1 08/22/2021 [facility] mg/dL 4:36 PM CONTAINER FINISHING INSPECTOR LABORATORY Glucose 74 70 - 99 08/22/2021 [facility] mg/dL 4:36 PM CONTAINER FINISHING INSPECTOR LABORATORY Alkaline 118 40 - 150 08/22/2021 [facility] Phosphatase U/L 4:36 PM CONTAINER FINISHING INSPECTOR LABORATORY AST 18 0 - 45 U/L 08/22/2021 [facility] 4:36 PM CONTAINER FINISHING INSPECTOR LABORATORY ALT 26 0 - 50 U/L 08/22/2021 [facility] 4:36 PM CONTAINER FINISHING INSPECTOR LABORATORY Protein Total 6.9 6.8 - 8.8 08/22/2021 [facility] g/dL 4:36 PM CONTAINER FINISHING INSPECTOR LABORATORY Albumin 3.8 3.4 - 5.0 08/22/2021 [facility] g/dL 4:36 PM CONTAINER FINISHING INSPECTOR LABORATORY Bilirubin Total 0.3 0.2 - 1.3 08/22/2021 [facility] mg/dL 4:36 PM CONTAINER FINISHING INSPECTOR LABORATORY GFR Estimate >90 >60 08/22/2021 [facility] mL/min/1.7 4:36 PM CONTAINER FINISHING INSPECTOR LABORATORY 3m2 Comment: Effective July 25, 2021 eGF Rcr in adults is calculated using the 2020 CKD-EPI creatinine equation which includ es age and gender (Liset et al., NEJ, DOI: 10.1056/CHFRts1847170) Specimen Anatomical Collection Method / Collection Time Recei donal Time (Source) Location / Volume Laterality Blood STRUCTURE OF LEFT Venipuncture / 08/22/2021 4:01 08/22 4:02 UPPER LIMB / Unknown PM CONTAINER FINISHING INSPECTOR PM CONTAINER FINISHING INSPECTOR Unknown Urbano Price MD LAB - BLOOD ORDERABLES Performing Organization Address City/State/ZIP Code Phon e Number [facility] [place] [facility] [place] [phone] [place] [address] [facility] [address] [place] [phone], [place] Phosphorus (08/22/2021 4:01 PM CONTAINER FINISHING INSPECTOR) [facility] 4.4 2.5 - 4.5 08/22/2021 [facility] mg/dL 4:36 PM CONTAINER FINISHING INSPECTOR LABORATORY Specimen Anatomical Collection Method / Collection Time Recei donal Time (Source) Location / Volume Laterality Blood STRUCTURE OF LEFT Venipuncture / 08/22/2021 4:01 08/22 4:02 UPPER LIMB / Unknown PM CONTAINER FINISHING INSPECTOR PM CONTAINER FINISHING INSPECTOR Unknown Urbano Price MD LAB - BLOOD ORDERABLES Performing Organization Address City/State/ZIP Code Phon e Number [facility] [place] [phone] [place] [address] [facility] [address] [place] [phone], [place] Calcium random urine with Creat Ratio (08/22/2021 4:01 PM CONTAINER FINISHING INSPECTOR) P athologist Signature Calcium Urine 10.5 mg/dL 08/22/2021 [facility] mg/dL 4:51 PM CONTAINER FINISHING INSPECTOR Calcium Urine 0.18 g/g Cr 08/22/2021 [facility] g/g Cr 4:51 PM CONTAINER FINISHING INSPECTOR Creatinine 58 mg/dL 08/22/2021 [facility] Urine mg/dL 4:51 PM CONTAINER FINISHING INSPECTOR Specimen Anatomical Collection Method Collection Time Receive d Time (Source) Location / / Volume Laterality Urine MID-STREAM URINE Non-blood 08/22/2021 4:01 PM 08/22 4:02 SPECIMEN / Unknown Collection / CONTAINER FINISHING INSPECTOR PM CONTAINER FINISHING INSPECTOR Unknown Narrative [facility] - 08/22/2021 4:51 PM CONTAINER FINISHING INSPECTOR The reference ranges have not been estab lished in random urine for calcium, creatinine and the calcium g/g creatinin e. The results should be integrated into the clinical context for interpretation. Urbano Price MD LAB - URINE ORDERABLES Performing Organization Address City/State/ZIP Code Ph[place] [address] Care Lab [facility]0 [facility], Room M309 Bone specific alk phosphatase (08/22/2021 4:01 PM CONTAINER FINISHING INSPECTOR) athologist Signature Bone Spec Alk 29.4 ug/L 08/23/2021 [facility] Phosphatase 9:43 PM CONTAINER FINISHING INSPECTOR Comment: INTERPRETIVE INFORMATION: Bone Specific Alkaline Phosphatase ??Premenopausal Female: ?4.5 - 16.9 ug/L ??Postmenopausal Female: ?? 7.0 - 22.4 ug/L INTERPRETIVE INFORMATION: Bone Specific Alkaline Phosphatase Liver alkaline phosphatase can affect th e measurement of bone specific alkaline phosphatase in th is assay. Each 100 U/L of liver alkaline phosphatase contri butes an additional 2.5 to 5.8 ug/L to the bone specific alk burt phosphatase result. Performed By: [facility] [address] [place] [address] Butter Wrapper: Brandi Dooley MD Specimen Anatomical Collection Method / Collection Time Recei donal Time (Source) Location / Volume Laterality Blood STRUCTURE OF LEFT Venipuncture / 08/22/2021 4:01 08/22 4:02 UPPER LIMB / Unknown PM CONTAINER FINISHING INSPECTOR PM CONTAINER FINISHING INSPECTOR Unknown Urbano Price MD LAB - BLOOD ORDERABLES Performing Organization Address City/State/ZIP Code Phon e Number [facility] [place], [place] [phone] 500 [facility] [address] 1,25 Dihydroxyvitamin D (08/22/2021 4:01 PM CONTAINER FINISHING INSPECTOR) Patholo gist Method Time Signature 1,25 76.1 19.9 - 08/23/2021 [facility] Dihydroxyvitamin D 79.3 2:31 PM CONTAINER FINISHING INSPECTOR CORE/PROT /END pg/mL O Specimen Anatomical Collection Method / Collection Time Recei donal Time (Source) Location / Volume Laterality Blood STRUCTURE OF LEFT Venipuncture / 08/22/2021 4:01 08/22 4:02 UPPER LIMB / Unknown PM CONTAINER FINISHING INSPECTOR PM CONTAINER FINISHING INSPECTOR Unknown Urbano Price MD LAB - BLOOD ORDERABLES Performing Organization Address City/State/ZIP Code Phon e Number [facility] CORE/PROT/ENDO [facility] [place], [place] [address] Core/Prot/Endo 500 [facility] J Building, Room 3[facility] Vitamin D2 + D3, 25 Hydroxy (08/22/2021 4:01 PM CONTAINER FINISHING INSPECTOR) P athologist Signature 25 OH Vitamin <5 ug/L 08/24/2021 [facility] D2 8:39 AM CONTAINER FINISHING INSPECTOR DRUG/BGEN 25 [place] Vitamin 66 ug/L 08/24/2021 [facility] D3 8:39 AM CONTAINER FINISHING INSPECTOR DRUG/BGEN 25 [place] Vit D <71 20 - 75 08/24/2021 [facility] Total ug/L 8:39 AM CONTAINER FINISHING INSPECTOR DRUG/BGEN Comment: Season, race, dietary intake, a nd treatment affect the concentration of 73-hkexvmv-Ujnyeav D. Values may decreas e during winter months and increase during summer months. Values 20-29 ug/L may ind icate Vitamin D insufficiency and values <20 ug/L may indicate Vitamin D deficiency. Specimen Anatomical Collection Method / Collection Time Recei donal Time (Source) Location / Volume Laterality Blood STRUCTURE OF LEFT Venipuncture / 08/22/2021 4:01 08/22 4:02 UPPER LIMB / Unknown PM CONTAINER FINISHING INSPECTOR PM CONTAINER FINISHING INSPECTOR Unknown Narrative [facility] DR[facility]/BGEN - 08/24/2021 8:39 A M CONTAINER FINISHING INSPECTOR This test was developed and its performa nce characteristics determined by the [facility], ??Special Chemistry Laboratory. It has not been cleared or approved by the FDA. The laboratory is regulated under CLIA as qualified to perform high-complexity noah ting. This test is used for clinical purposes. It should not be regarded as i nvestigational or for research. 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 [place] [address] [phone] Julian Spencer Assigned Musculoskeletal 05/27/20 MD Darell Provider [facility] [place] [address] [phone] Urbano Priec Assigned PCP 11/13/20 MD Esteban [address] [place], [place] [phone] Joe Leo MD Physical Medicine and 04/11/[address] [place] [address] [phone] Joe Leo, Ade Neuroscience 04/30/21 MD Provider [address] [place] [address] Douglas Gonzalez MD Pediatrics 05/29/21 MD Julian [address] [place] [address] [phone] Douglas Gonzalez Assigned Pediatric 06/04/21 MD Julian Specialist Provider [address] [place] [address] [phone] documented as of this encounter
--- OUTSIDE RECORDS SUMMARY | 2022-06-18 11:54 | XMS_ITS | Encounter Summary ---
:2001 Author Organization [place] Address [address] [place] [address]. [place] [address] Care Team Providers Name Role Phone Julian Spencer MD Unavailable Julian Spencer MD Unavailable Josh Carrero Primary Care Provider Urbano Price MD Unavailable Joe Leo MD Unavailable Joe Leo MD Unavailable Douglas Gonzalez MD Unavailable [phone] Douglas Gonzalez MD Unavailable [phone] Reason for Visit Reason Onset Date Comments Appointment 08/17/2021 Encounter Details Date Type Department Care Team Description 08/17/2021 Telephone Pediatric Endocrinol Urbano Agosto MD [facility]ment [facility] [address] [place] [address] [place] [address] [place], [place] [phone] Social History Tobacco Use Types Packs/Day Years Used Date Smoking Tobacco: Never Smokeless Tobacco: Never Alcohol Use Standard Drinks/Week Comments Not Currently 0 (1 standard drink = 0.6 oz pure alcoho l) Sex Assigned at Date Recorded Female 12/02/2020 1:42 PM CDT documented as of this encounter Miscellaneous Notes Telephone Encounter - LengbyMaribel - 08/17/2021 10:14 AM CST LVM regarding appt for 08/22 @ 3:00. w Dr. Price I asked if family would be willing to move appt to 2:30 or 3:30 due to a change in the schedule. Asked for family to please call me back directly at [phone] TOGRAPHER documented in this encounter Plan of Treatment Not on filedocumented as of this encounter Visit Diagnoses Not on filedocumented in this encounter Care Teams Sleep Manager Relationship Specialty Start Date End Date Josh Carrero PCP - General Family Medicine 08/09/[address] [phone] Julian Spencer MD Orthopedics 03/08/20 MD Darell [facility] [place] [address] [phone] Julian Spencer Assigned Musculoskeletal 05/27/20 MD Darell Provider [facility] [place] [address] Urbano Price Assigned PCP 11/13/20 MD Esteban [address] [place] [address] [phone] Joe Leo MD Physical Medicine and 04/11/[address] [place] [address] [phone] Joe Leo Assigned Neuroscience 04/30/21 MD Provider [address] [address] Douglas Gonzalez MD Pediatrics 05/29/21 MD Julian [address] [place] [address] Douglas Gonzalez Assigned Pediatric 06/04/21 MD Julian Specialist Provider [facility] [address] [place] [address] documented as of this encounter
--- OUTSIDE RECORDS SUMMARY | 2022-06-18 11:54 | XMS_ITS | Encounter Summary ---
:2000 Author Organization [place] Address [address] [place] [address] Care Team Providers Name Role Phone Julian Spencer MD Unavailable Julian Spencer MD Unavailable Josh Carrero Primary Care Provider Urbano Price MD Unavailable Joe Leo MD Unavailable Joe Leo MD Unavailable Douglas Gonzalez MD Unavailable [phone] Douglas Gonzalez MD Unavailable [phone] Reason for Visit Reason Onset Date Comments Refill Request 07/03/2021 Encounter Details Date Type Department Care Team Description 07/03/[address] [facility] Discovery Catalina De La Torre, RN Refill Request [facility] [address] [place] [address] [phone] Social History Tobacco Use Types [...] with No / Unsure 07/04/2021 2:47 PM ASSEMBLY INSPECTOR HELPER someone who was confirmed or suspected to have Coronavirus / COVID-19? documented as of this encounter Miscellaneous Notes Telephone Encounter - Catalina Tay RN - 07/03/2021 2:39 PM CST Correcting to Brayden Price as prescriber MBLY INSPECTOR HELPER documented in this encounter Plan of Treatment Not on filedocumented as of this encounter Visit Diagnoses Diagnosis Pseudarthrosis following spinal fusion Arthrodesis status Localized osteoporosis without current p athological fracture documented in this encounter Care Teams Corporate Executive Chef Relationship Specialty Start Date End Date Josh Carrero PCP - General [facility] Medicine 08/09/20 [place] [id number] Julian Spencer MD Orthopedics 03/08/20 MD Darell [facility] [place] [address] Julian Spencer Assigned Musculoskeletal 05/27/20 MD Darell Provider [facility] [place] [address] Urbano Price Assigned PCP 11/13/20 MD Esteban [address] [place] [address] [phone] Joe Leo MD Physical Medicine and 04/11/[address] [place] [address] [phone] Joe Leo, Ade Neuroscience 04/30/21 MD Provider [address] 093205 Douglas Gonzalez MD Pediatrics 05/29/21 MD Julian [address] [place] [address] Douglas Gonzalez Assigned Pediatric 06/04/21 MD Julian Specialist Provider [facility] [address] [phone] documented as of this encounter
--- OUTSIDE RECORDS SUMMARY | 2022-06-18 11:54 | XMS_ITS | Encounter Summary ---
:2000 Author Organization [place] Address [address] [place] [address] Care Team Providers Name Role Phone Julian Spencer MD Unavailable Julian Spencer MD Unavailable Eugenio Finney MD Unavailable [phone] Josh Carrero Primary Care Provider Urbano Price MD Unavailable Joe Leo MD Unavailable Joe Leo MD Unavailable Douglas Gonzalez MD Unavailable [phone] Encounter Details Date Type Department Care Team Description 05/29/2021 Travel Social History Tobacco Use Types Packs/Day Years Used Date Smoking Tobacco: Never Smokeless Tobacco: Never Alcohol Use Standard Drinks/Week Comments Not Currently 0 (1 standard drink = 0.6 oz pure alcoho l) Sex Assigned at Date Recorded Female 12/02/2020 1:42 PM CDT COVID-19 Exposure Response Date Recorded In the last month, have you been in contact with No / Unsure 05/29/2021 12:48 PM CDT someone who was confirmed or suspected to have Coronavirus / COVID-19? documented as of this encounter Plan of Treatment Not on filedocumented as of this encounter Visit Diagnoses Not on filedocumented in this encounter Care Teams Director Data Relationship Specialty Start Date End Date Josh Carrero PCP - General Family Medicine 08/09/[address] [address] Julian Spencer MD Orthopedics 03/08/20 MD Darell [address] [place], [place] 0080[address] Julian Spencer Assigned Musculoskeletal 05/27/20 MD Darell Provider [address] [place] [address] Eugenio Finney Assigned Pediatric 06/19/2005/07 MD David Specialist Provider 420 [facility] 96 [place], [place] [phone] Urbano Price Assigned PCP 11/13/20 MD Esteban [facility]0 [place], [place] 123814 Joe Leo MD Physical Medicine and 04/11/21 MD Rehabilitation [address] [place] [address] 297 [place] [address] Joe Leo, Ade Neuroscience 04/30/21 MD Provider 420 [facility] 297 [place], [place] 630[address] Douglas Gonzalez MD Pediatrics 05/29/21 MD Julian [facility] [address] [place], [place] 308024 documented as of this encounter
--- OUTSIDE RECORDS SUMMARY | 2022-06-18 11:54 | XMS_ITS | Encounter Summary ---
:2001 Author Organization [place] Address [address] [place] [address] Care Team Providers Name Role Phone Julian Spencer MD Unavailable Julian Spencer MD Unavailable Josh Carrero Primary Care Provider Urbano Price MD Unavailable Joe Leo MD Unavailable Joe Leo MD Unavailable Douglas Gonzalez MD Unavailable [phone] Douglas Gonzalez MD Unavailable [phone] Reason for Referral Diagnostic Imaging XR (Routine) - Pending Review Specialty Diagnoses / Procedures Referred By Contact Refer red To Contact Diagnoses S/P spinal surgery Julian Spencer MD Procedures XR Pelvis 1/[address] [place], [place] [address] Referral ID Status Reason Start Date Expiration Date Visits V isits Requested Authorized [id number] Pending 08/24/2021 08/24/2022 1 1 Review NTORY ASSOCIATE Encounter Details Date Type Department Care Team Description 08/24/2021 Orders Only [facility] Julian Phipps S/P spinal surgery Orthopedic Clinic MD aDrell (Primary Dx) [address] [facility] [address] [place] [address] Social History Tobacco Use Types Packs/Day [...] with No / Unsure 08/22/2021 2:46 PM INVENTORY ASSOCIATE someone who was confirmed or suspected to have Coronavirus / COVID-19? 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 WILNER DREW Narrative 08/24/2021 4:00 PM INVENTORY ASSOCIATE One view pelvis radiograph(s) 08/24/2021 3:58 PM History: S/P spinal surgery Comparison:, Full spine radiograph same day and 04/11/2021, Abdominal radiograph 10/23/2020, pelvis radiograph 07/21/2020 Findings: Single outlet view(s) of the pelvis were obtained. No acute osseous abnormality. 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 Partial visualization of spinal fusion a nd instrumentation hardware. 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 No substantial degenerative change of hi ps. Procedure Note Wilner Drew MD - 08/24/2021Forma tting of this note might be different from the original. One view pelvis radiograph(s) 08/24/2021 3:58 PM History: S/P spinal surgery Comparison:, Full spine radiograph same day and 04/11/2021, Abdominal radiograph 10/23/2020, pelvis radiograph 07/21/2020 Findings: Single outlet view(s) of the pelvis were obtained. No acute osseous abnormality. 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 Partial visualization of spinal fusion a nd instrumentation hardware. 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 No substantial degenerative change of hi ps. 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 CodeHS Julian Spencer MD IMG DIAGNOSTIC IMAGING ORDER DANO documented in this encounter Visit Diagnoses Diagnosis S/P spinal surgery - Primary Other postprocedural status S/P spinal surgery Other postprocedural status documented in this encounter Care Teams Copy Lathe Tender Relationship Specialty Start Date End Date Josh Carrero PCP - General Family Medicine 08/09/[address] [id number] Julian Spencer MD Orthopedics 03/08/20 MD Darell [facility] [place] [address] Julian Spencer Assigned Musculoskeletal 05/27/20 MD Darell Provider [facility] [place] [address] Urbano Price Assigned PCP 11/13/20 MD Esteban [facility] [place] [address] Joe Leo MD Physical Medicine and 04/11/[address] [place] [address] 516365 Joe Leo Assigned Neuroscience 04/30/21 Provider [address] [address] Douglas Gonzalez MD Pediatrics 05/29/21 MD Julian [facility] [address] [address] Douglas Gonzalez Assigned Pediatric 06/04/21 MD Julian Specialist Provider [address] 165864 documented as of this encounter
--- OUTSIDE RECORDS SUMMARY | 2022-06-18 11:54 | XMS_ITS | Encounter Summary ---
:2001 Author Organization [place] Address [address] [place] [address]. [place] [address] Care Team Providers Name Role Phone Julian Spencer MD Unavailable Julian Spencer MD Unavailable Josh Carrero Primary Care Provider Urbano Price MD Unavailable Joe Leo MD Unavailable Joe Leo MD Unavailable Douglas Gonzalez MD Unavailable [phone] Douglas Gonzalez MD Unavailable [phone] Reason for Referral [facility] Physical Therapy (Routine) - Pending Review Specialty Diagnoses / Procedures Referred By Contact Refer red To Contact Diagnoses Muscle spasm of back Reta Escalante PA-C [address] [place] [address] 4 Referral ID Status Reason Start Date Expiration Date Visits V isits Requested Authorized [id number] Pending 06/22/2021 06/22/2022 1 1 Review TIC SURGERY SPECIALIST Encounter Details Date Type Department Care Team Description 06/22/2021 Orders Only [facility] Reta Escalante PA-C Muscle spasm of back [facility] [address] [place] [address] (Primary Dx) [place], [place] 909 [facility] [address] 4th [place] [address] Social History Tobacco Use Types Packs/Day [...] as of this encounter Plan of Treatment Scheduled Referrals Name Type Priority Associated Diagnoses Order S chedule [facility] PT and Hand Referral Routine Muscle spasm of back Expe cted: 06/22/2021, Referral Expires: 2021 documented as of this encounter Visit Diagnoses Diagnosis Muscle spasm of back - Primary Other symptoms referable to back documented in this encounter Care Teams Printing Assistant Relationship Specialty Start Date End Date Josh Carrero PCP - General Family Medicine 08/09/[address] [address] Julian Spencer MD Orthopedics 03/08/20 MD Darell [address] [place] [address] Julian Spencer Assigned Musculoskeletal 05/27/20 MD Darell Provider [address] [phone] Urbano Price Assigned PCP 11/13/20 MD Esteban [facility] [place] [address] Joe Leo MD Physical Medicine and 04/11/[address] [place] [address] 297 [place] [address] Joe Leo, Assigned Neuroscience 04/30/21 MD Provider 420 [facility] 297 [place] [address] Douglas Gonzalez MD Pediatrics 05/29/21 MD Julian [address] [place] [address] Douglas Gonzalez Assigned Pediatric 06/04/21 MD Julian Specialist Provider [address] [place] [address] documented as of this encounter
--- OUTSIDE RECORDS SUMMARY | 2022-06-18 11:54 | XMS_ITS | Encounter Summary ---
:2000 Author Organization [place] Address [address] [place] [address]. [place] [address] Care Team Providers Name Role Phone Julian Spencer MD Unavailable Julian Spencer MD Unavailable Josh Carrero Primary Care Provider Urbano Price MD Unavailable Joe Leo MD Unavailable Joe Leo MD Unavailable Douglas Gonzalez MD Unavailable [phone] Douglas Gonzalez MD Unavailable [phone] Reason for Visit Rehab Therapy Physical Therapy (Routine) - Closed Specialty Diagnoses / Procedures Referred By Contact Refer red To Contact Diagnoses History of fusion of spine for scoliosis Muscle spasm of back Julian Spencer MD [facility] [address] & Physical Therapy - [place], [place] [address] [place] [address] [place] Dalia Urias 20 [place] [phone] Phone: Fax: Referral ID Status Reason Start Date Expiration Date Visits Requ ested Visits Authorized [id number] Closed 12/05/2020 12/03/2021 10 10 Encounter Details Date Type Department Care Team Description 07/04[facility] [address] [place], [place] [address] Muscle spasm [place] [address] [place] [address] back [place] [address] [place] [address] Social History Tobacco Use Types Packs/Day Years Used Date Smoking Tobacco: Never Smokeless Tobacco: Never Alcohol Use Standard Drinks/Week Comments Not Currently 0 (1 standard drink = 0.6 oz pure alcoho l) Sex Assigned at Date Recorded Female 12/02/2020 1:42 PM CDT COVID-19 Exposure Response Date Recorded In the last month, have you been in contact with No / Unsure 07/04/2021 2:47 PM CASE CHECKER someone who was confirmed or suspected to have Coronavirus / COVID-19? documented as of this encounter Progress Notes Robert Mcclendon, PT - 07/04/2021 2:40 PM CST PROGRESS REPORT Progress reporting period is from eval to 07/04/21. SUBJECTIVE Subjective changes noted by patient: . Subjective: Pt returns to therapy with new orders for strengthening to prepare her for playing [employer]rosse for [employer]. She reports tolerating HEP well. Her c/c is sitting for prolonged periods of time. Current pain level is Current Pain level: 4/10. Previous pain level was Initial Pain level: 8/10. Changes in function: Yes (See Goal flowsheet attached for changes in current functional level) Adverse reaction to treatment or activity: None OBJECTIVE Changes noted in objective findings: Yes, Objective: LROM: flexion 50%, Ext 50%, core strength 3+/5 ASSESSMENT/PLAN Updated problem list and treatment plan: Diagnosis 1: S/p back surgery Decreased ROM/flexibility - manual therapy and therapeutic exercise Decreased strength - therapeutic exercise and therapeutic activities Impaired muscle performance - neuro re-education Decreased function - therapeutic activities STG/LTGs have been met or progress has been made towards goals: Yes (See Goal flow sheet completed today.) Assessment of Progress: The patient's condition is improving. The patient's condition has potential to improve. Self Management Plans: Patient has been instructed in a home treatment program. Patient is independent in a home treatment program. I have re-evaluated this patient and find that the nature, scope, duration and intensity of the therapy is appropriate for the medical condition of the patient. Dakota continues to require the following intervention to meet STG and LTG's: PT Recommendations: This patient would benefit from continued therapy. Frequency: 1 X week, once daily Duration: for 6 weeks Please refer to the daily flowsheet for treatment today, total treatment time and time spent performing 1:1 timed codes. CHECKER Robert Mcclendon, PT - 07/04/2021 2:40 PM CST Images from the original note were not included. [facility] OUTPATIENT Physical Therapy ORTHOPEDIC EVALUATION PLAN OF TREATMENT FOR OUTPATIENT REHABILITATION (COMPLETE FOR INITIAL CLAIMS ONLY) Patient's Last Name, First Name, M.I. Date of : 2000 Dakota Casiano George Provider???s Name: [facility] Start of Care Date: 07/04/21 Onset Date: 06/22/21 (new orders) Type: _X__PT ___OT Medical Diagnosis: Encounter Diagnosis Name Primary? Muscle spasm of back Treatment Diagnosis: R LBP Goals: 07/04/21 0500 [address] Goals listed below are for R LBP Goal #1 Goal #1 ambulation Previous Functional Level No restrictions Current Functional Level Minutes patient can walk Performance Level 45 with pain 2/10 STG Target Performance Minutes patient will be able to walk Performance Level 60 with pain 2/10 Rationale for safe household ambulation;for safe outdoor household ambulation;for safe community ambulation Due Date 07/25/21 LTG Target Performance Minutes patient will be able to walk Performance Level 90 with pain 1/10 Rationale for safe household ambulation;for safe outdoor household ambulation;for safe community ambulation Due Date 08/15/21 Therapy Frequency: 1 x week Predicted Duration of Therapy Intervention: 6 weeks Robert Mcclendon, PT I CERTIFY THE NEED FOR THESE SERVICES FURNISHED UNDER THIS PLAN OF TREATMENT AND WHILE UNDER MY CARE (Physician attestation of this document indicates review and certification of the therapy plan). Certification Date From: 07/04/21 Certification Date To: 10/01/21 Referring Provider: Reta Escalante Initial Assessment See Epic Evaluation SOC Date: 07/04/21 CHECKER Associated attestation - Reta Escalante PA-C - 07/04/2021 4:45 PM CASE CHECKER Physician Attestation I agree with the information in this note. Reta Escalante documented in this encounter Plan of Treatment Not on filedocumented as of this encounter Procedures Procedure Name Priority Date/Time Associated Diagnosis Comme nts [place] [facility]IC Routine 07/04/2021 3:58 PM CASE CHECKER Muscle spasm of back EXERCISES. EA 15 MIN documented in this encounter Visit Diagnoses Diagnosis Muscle spasm of back Other symptoms referable to back documented in this encounter Care Teams Head Refrigerating Engineer Relationship Specialty Start Date End Date Josh Carrero PCP - General Family Medicine 08/09/[address] [address] Julian Spencer MD Orthopedics 03/08/20 MD Darell [address] [place] [address] 297874 Julian Spencer Assigned Musculoskeletal 05/27/20 MD Darell Provider [facility] [place] [address] 895144 Urbano Price Assigned PCP 11/13/20 MD [facility]eban [facility] [facility] [place] [place] [address] Joe Leo MD Physical Medicine and 04/11/21 MD Rehabilitation [address] [place] [address]86855 Joe Leo Assigned Neuroscience 04/30/21 MD Provider [address] [place] [address] 297 [place], [place] 138945 Douglas Gonzalez MD Pediatrics 05/29/21 MD Julian [address] [place] [address] [phone] Douglas Gonzalez Assigned Pediatric 06/04/21 MD Julian Specialist Provider [address] [place] [address] [phone] documented as of this encounter
--- OUTSIDE RECORDS SUMMARY | 2022-06-18 11:54 | XMS_ITS | Encounter Summary ---
:2001 Author Organization [place] Address [address] [place] [address]. [place] [address] Care Team Providers Name Role Phone Julian Spencer MD Unavailable Julian Spencer MD Unavailable Josh Carrero Primary Care Provider Urbano Price MD Unavailable Joe Leo MD Unavailable Joe Leo MD Unavailable Douglas Gonzalez MD Unavailable [phone] Douglas Gonzalez MD Unavailable [phone] Encounter Details Date Type Department Care Team Description 07/03/2021 Telephone Pediatric Endocrinol Urbano Agosto MD [facility] [address] [place] [address] [address] [place] [address] [place], [place] [address] [phone] Social History Tobacco Use Types Packs/Day Years Used Date Smoking Tobacco: Never Smokeless Tobacco: Never Alcohol Use Standard Drinks/Week Comments Not Currently 0 (1 standard drink = 0.6 oz pure alcoho l) Sex Assigned at Date Recorded Female 12/02/2020 1:42 PM CDT documented as of this encounter Miscellaneous Notes Telephone Encounter - Catalina Tay RN - 07/03/2021 11:59 AM CST Addition refill request queued up and sent to Dr. Price for signature. KE OPERATIONS OFFICER Telephone Encounter - Bryan Luz - 07/03/2021 11:37 AM CST [facility] Call Center Phone Message May a detailed message be left on voicemail: no Reason for Call: Medication Refill Request Has the patient contacted the pharmacy for the refill? Yes Name of medication being requested: Teriaradtide Provider who prescribed the medication: Dr. Urbano Price Pharmacy: [facility] Date medication is needed: [facility] is calling in regards to new request Rx for Teriaradtide to be sent in. Please call [facility] with questions, . KE OPERATIONS OFFICER documented in this encounter Plan of Treatment Not on filedocumented as of this encounter Visit Diagnoses Not on filedocumented in this encounter Care Teams Poison Information Specialist Relationship Specialty Start Date End Date Josh Carrero PCP - General Family Medicine 08/09/[address] [address] Julian Spencer MD Orthopedics 03/08/20 MD Darell [address] [address] Julian Spencer Assigned Musculoskeletal 05/27/20 MD Darell Provider [address] [place] [address] Urbano Price Assigned PCP 11/13/20 MD Esteban [facility] [place] [address] Joe Leo MD Physical Medicine and 04/11/[address] [place] [address] [id number] Joe Leo, Assigned Neuroscience 04/30/21 MD Provider 420 [facility] 297 [place], [place] [phone] Douglas Gonzalez MD Pediatrics 05/29/21 MD Julian [address] [place] [address] [id number] Douglas Gonzalez Assigned Pediatric 06/04/21 MD Julian Specialist Provider [facility] [address] [phone] documented as of this encounter
--- OUTSIDE RECORDS SUMMARY | 2022-06-18 11:54 | XMS_ITS | Encounter Summary ---
:2001 Author Organization [place] Address [address] [place] [address] Care Team Providers Name Role Phone Julian Spencer MD Unavailable Julian Spencer MD Unavailable Josh Carrero Primary Care Provider Urbano Price MD Unavailable Joe Leo MD Unavailable Joe Leo MD Unavailable Douglas Gonzalez MD Unavailable [phone] Douglas Gonzalez MD Unavailable [phone] Reason for Visit Diagnostic Imaging XR (Routine) - Pending Review Specialty Diagnoses / Procedures Referred By Contact Refer red To Contact Diagnoses S/P spinal surgery Julian Spencer MD Procedures XR EOS Total Body [address] [place], [place] [address] Referral ID Status Reason Start Date Expiration Date Visits V isits Requested Authorized [id number] Pending 08/18/2021 08/18/2022 1 1 Review Encounter Details Date Type Department Care Team Description 08/24/2021 Ancillary Procedure [facility] Julian Phipps S/P spinal surgery [facility] Juveay MD aDrell Exline [address] 909 [facility] [address] 1st [place] [address] Social History Tobacco Use Types Packs/Day [...] with No / Unsure 08/24/2021 3:05 PM STAIN WIPER someone who was confirmed or suspected to have Coronavirus / COVID-19? documented as of this encounter Plan of Treatment Not on filedocumented as of this encounter Procedures Procedure Name Priority Date/Time Associated Diagnosis Comme nts XR EOS TOTAL BODY Routine 08/24/2021 3:05 PM S/P spinal surger y Results for this STAIN WIPER procedure are i n the results section. documented in this encounter Results XR EOS Total Body (08/24/2021 3:05 PM STAIN WIPER) Anatomical Region Laterality Modality Spine, Lower Extremity Computed Radiogra phy Specimen (Source) Anatomical Location Collection Method / Collectio n Time Received Time / Laterality Volume Impressions 08/24/2021 3:36 PM STAIN WIPER Impression: 1. Stable postoperative changes of spina l fusion instrumentation from T4-L4. The hardware appears intact. 2. Positive global sagittal imbalance. N o global coronal imbalance. 3. Weightbearing axis as detailed above. RAHUL MARTINEZ MD Narrative 08/24/2021 3:36 PM STAIN WIPER Exam: Full body radiographs using EOS History: S/P spinal surgery Techniques: AP and lateral images of ful l body and secondary images of AP and lateral views of spine were submi tted for interpretation. Comparison: Spine radiographs 04/11/2021, 12/01/2020, 08/28/2020 Findings: 12 rib bearing vertebral bodies and 5 georgi mbar type vertebral bodies are identified. Postoperative changes of spi nal fusion is unchanged from T4-L4. The hardware appears intact. Ther e is straightening of the normal cervical lordosis, similar to aspen or. Coronal Deformity: There is a moderate ??convexed right cur vature of thoracolumbar/lumbar spine with apex at L2. No substantial global coronal imbalance. Sagittal Vertical [place] (A vertical line drawn from the center of C7 (carl line) to the posterosuperior aspe ct of the S1 on sagittal plane): ??positive Weight bearing axis: (Defined as a line drawn from the center of the femoral head to the mid aspect of the ti bial plafond). ?Right: Weight bearing axis crosses central 1/3 of medial tibial plateau. ? Left: Weight bearing axis crosses central 1/3 of medial tibial plateau. Leg length: ??(Measured from the top of the femoral head to the center of tibial plafond. ??It is assumed joint s are in similar degrees of extension bilaterally. ??Significant dif ference is defined when discrepancy is greater than 1.5 cm). ?No significant ??leg length dis crepancy. Additional Findings: No acute osseous abnormality. Cardiac si lhouette is within normal limits. No focal airspace opacities. Non obstructive bowel gas pattern. Procedure Note Rahul Martinez - 08/24/2021Formatti ng of this note might be different from the original. Exam: Full body radiographs using EOS History: S/P spinal surgery Techniques: AP and lateral images of ful l body and secondary images of AP and lateral views of spine were submi tted for interpretation. Comparison: Spine radiographs 04/11/2021, 12/01/2020, 08/28/2020 Findings: 12 rib bearing vertebral bodies and 5 georgi mbar type vertebral bodies are identified. Postoperative changes of spi nal fusion is unchanged from T4-L4. The hardware appears intact. Ther e is straightening of the normal cervical lordosis, similar to aspen or. Coronal Deformity: There is a moderate convexed right curva ture of thoracolumbar/lumbar spine with apex at L2. No substantial global coronal imbalance. Sagittal Vertical [place] (A vertical line drawn from the center of C7 (carl line) to the posterosuperior aspe ct of the S1 on sagittal plane): positive Weight bearing axis: (Defined as a line drawn from the center of the femoral head to the mid aspect of the ti bial plafond). Right: Weight bearing axis crosses cent ral 1/3 of medial tibial plateau. Left: Weight bearing axis crosses centr al 1/3 of medial tibial plateau. Leg length: (Measured from the top of th e femoral head to the center of tibial plafond. It is assumed joints are in similar degrees of extension bilaterally. Significant diffe rence is defined when discrepancy is greater than 1.5 cm). No significant leg length discrepancy. Additional Findings: No acute osseous abnormality. Cardiac si lhouette is within normal limits. No focal airspace opacities. Non obstructive bowel gas pattern. Impression: 1. Stable postoperative changes of spina l fusion instrumentation from T4-L4. The hardware appears intact. 2. Positive global sagittal imbalance. N o global coronal imbalance. 3. Weightbearing axis as detailed above. RAHUL MARTINEZ MD Julian Spencer MD IMG DIAGNOSTIC IMAGING ORDER DANO documented in this encounter Visit Diagnoses Diagnosis S/P spinal surgery Other postprocedural status documented in this encounter Care Teams Screwhead Stoner And Polisher Relationship Specialty Start Date End Date Josh Carrero PCP - General [facility] Medicine 08/09/[address] [address] Julian Spencer MD Orthopedics 03/08/20 MD Darell [facility] [address] [address] Julian Spencer Assigned Musculoskeletal 05/27/20 MD Darell Provider [facility] [address] [address] Urbano Price Assigned PCP 11/13/20 MD Esteban [facility] [place] [address] Joe Leo MD Physical Medicine and 04/11/[address] [place] [phone] Joe Leo Assigned Neuroscience 04/30/21 MD Provider [address] [place] [address] [phone] Douglas Gonzalez MD Pediatrics 05/29/21 MD Julian [facility] [address] [address] Douglas Gonzalez Assigned Pediatric 06/04/21 MD Julian Specialist Provider [facility] [address] [address] documented as of this encounter
--- OUTSIDE RECORDS SUMMARY | 2022-06-18 11:54 | XMS_ITS | Encounter Summary ---
:2001 Author Organization [place] Address [address] [place] [address]. [place] [address] Care Team Providers Name Role Phone Julian Spencer MD Unavailable Julian Spencer MD Unavailable Josh Carrero Primary Care Provider Urbano Price MD Unavailable Joe Leo MD Unavailable Joe Leo MD Unavailable Douglas Gonzalez MD Unavailable [phone] Douglas Gonzalez MD Unavailable [phone] Reason for Visit Reason Onset Date Comments Refill Request 07/03/2021 Encounter Details Date Type Department Care Team Description 07/03/2021 [facility], Urbano Orellana MD Refill Request [facility] [address] [place] [address], [address] [place] [address] [place] [phone] Social History Tobacco Use Types Packs/Day Years [...] fracture documented in this encounter Care Teams Consulting Intern Relationship Specialty Start Date End Date Josh Carrero PCP - General Family Medicine 08/09/[address] [address] Julian Spencer MD Orthopedics 03/08/20 MD Darell [address] [place] [address] Julian Spencer Assigned Musculoskeletal 05/27/20 MD Darell Provider [facility] [place] [address] Urbano Price Assigned PCP 11/13/20 MD Esteban [address] [place] [address] Joe Leo MD Physical Medicine and 04/11/21 MD Rehabilitation [address] [place] [address] Joe Leo, Ade Neuroscience 04/30/21 MD Provider [address] [place] [address] [phone] Douglas Gonzalez MD Pediatrics 05/29/21 MD Julian [address] [place] [address] [phone] Douglas Gonzalez Assigned Pediatric 06/04/21 MD Julian Specialist Provider [address] [place] [address] [phone] documented as of this encounter
--- OUTSIDE RECORDS SUMMARY | 2022-06-18 11:54 | XMS_ITS | Encounter Summary ---
:2001 Author Organization [place] Address [facility]0 [place] [address] Care Team Providers Name Role Phone Julian Spencer MD Unavailable Julian Spencer MD Unavailable Josh Carrero Primary Care Provider Urbano Price MD Unavailable Joe Leo MD Unavailable Joe Leo MD Unavailable Douglas Gonzalez MD Unavailable [phone] Douglas Gonzalez MD Unavailable [phone] Encounter Details Date Type Department Care Team Description 10/18/2021 Telephone [facility] Smith Gonzalez, Pediatric Specialty Clinic [facility], [address] [place] [address] [place] [phone] [place] [address] (Wo rk) Social History Tobacco Use Types Packs/Day Years [...] this encounter Miscellaneous Notes Telephone Encounter - Ivelisse Carolina - 10/18/2021 1:28 PM CDT Called and left a to schedule a follow up with yun ascencio documented in this encounter Plan of Treatment Not on filedocumented as of this encounter Visit Diagnoses Not on filedocumented in this encounter Care Teams Screen Making Supervisor Relationship Specialty Start Date End Date Josh Carrero PCP - General Family Medicine 08/09/[address] [address] Julian Spencer MD Orthopedics 03/08/20 MD Darell [facility] [place] [address] Julian Spencer Assigned Musculoskeletal 05/27/20 MD Darell Provider [facility] [place] [address] Urbano Price Assigned PCP 11/13/20 MD Esteban [address] [place] [address] 506014 Joe Leo MD Physical Medicine and 04/11/[address] [place] [address] [phone] Joe Leo Assigned Neuroscience 04/30/21 MD Provider [address] [phone] Douglas Gonzalez MD Pediatrics 05/29/21 MD Julian [address] [place] [address] Douglas Gonzalez Assigned Pediatric 06/04/21 MD Julian Specialist Provider [facility] [address] [address] documented as of this encounter
--- OUTSIDE RECORDS SUMMARY | 2022-06-18 11:54 | XMS_ITS | Encounter Summary ---
:2001 Author Organization [place] Address [facility] [place] [address] Care Team Providers Name Role Phone Julian Spencer MD Unavailable Julian Spencer MD Unavailable Josh Carrero Primary Care Provider Urbano Price MD Unavailable Joe Leo MD Unavailable Joe Leo MD Unavailable Douglas Gonzalez MD Unavailable [phone] Douglas Gonzalez MD Unavailable [phone] Reason for Visit Reason Onset Date Comments Screening 08/21/2021 Covid Encounter Details Date Type Department Care Team Description 08/21/2021 Telephone Pediatric Endocrinol Urbano Agosto, [place] (Cov[facility] 12 [facility] 2450 [facility] 2450 [place] [address] [place], [place] [phone] (Wo rk) [address] [phone] Social History Tobacco Use Types Packs/Day Years Used Date Smoking Tobacco: Never Smokeless Tobacco: Never Alcohol Use Standard Drinks/Week Comments Not Currently 0 (1 standard drink = 0.6 oz pure alcoho l) Sex Assigned at Date Recorded Female 12/02/2020 1:42 PM CDT documented as of this encounter Miscellaneous Notes Telephone Encounter - Samuel Walters, EMT - 08/21/2021 11:41 AM CST Spoke with patient family no concerns with Covid screening questions and they are aware of the mask and visitor policy change. Samuel Walters, EMT August 21, 2021 S REPRESENTATIVE C[employer] REGISTERS documented in this encounter Plan of Treatment Not on filedocumented as of this encounter Visit Diagnoses Not on filedocumented in this encounter Care Teams Abalone Sheller Relationship Specialty Start Date End Date Josh Carrero PCP - General Family Medicine 08/09/[address] [phone] Julian Spencer MD Orthopedics 03/08/20 MD Darell [facility] [place] [address] Julian Spencer Assigned Musculoskeletal 05/27/20 MD Darell Provider [facility] [place] [address] Urbano Price Assigned PCP 11/13/20 MD Esteban 2450 [place] [address] Joe Leo MD Physical Medicine and 04/11/21 MD Rehabilitation [address] [address] Joe Leo, Ade Neuroscience 04/30/21 MD Provider [address] [place] [address] Douglas Gonzalez MD Pediatrics 05/29/21 MD Julian [facility]0 [place] [phone] [place], [place] 207384 Douglas Gonzalez Assigned Pediatric 06/04/21 MD Julian Specialist Provider [facility] [address] [address] documented as of this encounter
--- OUTSIDE RECORDS SUMMARY | 2022-06-18 11:54 | XMS_ITS | Encounter Summary ---
:2001 Author Organization [place] Address [address] [place] [address]. [place] [address] Care Team Providers Name Role Phone Julian Spencer MD Unavailable Julian Spencer MD Unavailable Josh Carrero Primary Care Provider Urbano Price MD Unavailable Joe Leo MD Unavailable Joe Leo MD Unavailable Douglas Gonzalez MD Unavailable [phone] Douglas Gonzalez MD Unavailable [phone] Reason for Visit Reason Onset Date Comments Appointment 08/08/2021 Encounter Details Date Type Department Care Team Description 08/08/2021 Telephone Pediatric Endocrinol Urbano Agosto MD [facility]ointment [facility] [address] [place] [address] [place] [address] [place], [place] [address] [phone] Social History Tobacco Use Types Packs/Day Years Used Date Smoking Tobacco: Never Smokeless Tobacco: Never Alcohol Use Standard Drinks/Week Comments Not Currently 0 (1 standard drink = 0.6 oz pure alcoho l) Sex Assigned at Date Recorded Female 12/02/2020 1:42 PM CDT documented as of this encounter Miscellaneous Notes Telephone Encounter - Michelle Maribel - 08/08/2021 1:12 PM CST Per [employer] message, gave follow up call to re-schedule appt cancelled for today w/ Dr. Price in the [facility] clinic. Provided [facility] scheduling # and asked to please call back to re- schedule. SHIPPER documented in this encounter Plan of Treatment Not on filedocumented as of this encounter Visit Diagnoses Not on filedocumented in this encounter Care Teams Computer Terminal Operator Relationship Specialty Start Date End Date Josh Carrero PCP - General Family Medicine 08/09/[address] [address] Julian Spencer MD Orthopedics 03/08/20 MD Darell [facility] S [address] [place] [address] Julian Spencer Assigned Musculoskeletal 05/27/20 MD Darell Provider [facility] [address] [place] [address] Urbano Price Assigned PCP 11/13/20 MD Esteban [facility] [place] [address] Joe Leo MD Physical Medicine and 04/11/21 MD Rehabilitation [address] [address] Joe Leo, Ade Neuroscience 04/30/21 MD Provider [address] [place] [address] Douglas Gonzalez MD Pediatrics 05/29/21 MD Julian [address] [place] [address] Douglas Gonzalez Assigned Pediatric 06/04/21 MD Julian Specialist Provider [address] [place] [address] documented as of this encounter
--- OUTSIDE RECORDS SUMMARY | 2022-06-18 11:54 | XMS_ITS | Encounter Summary ---
:2001 Author Organization [place] Address [address] [place] [address] Care Team Providers Name Role Phone Julian Spencer MD Unavailable Julian Spencer MD Unavailable Josh Carrero Primary Care Provider Urbano Price MD Unavailable Joe Leo MD Unavailable Joe Leo MD Unavailable Douglas Gonzalez MD Unavailable [phone] Douglas Gonzalez MD Unavailable [phone] Reason for Referral Diagnostic Imaging XR (Routine) - Pending Review Specialty Diagnoses / Procedures Referred By Contact Refer red To Contact Diagnoses S/P spinal surgery Julian Spencer MD Procedures XR EOS Total Body [address] [place], [place] [address] Referral ID Status Reason Start Date Expiration Date Visits V isits Requested Authorized [id number] Pending 08/18/2021 08/18/2022 1 1 Review GING EDITOR Encounter Details Date Type Department Care Team Description 08/18/2021 Orders Only [facility] Julian Phipps S/P spinal surgery Orthopedic Clinic MD Darell (Primary Dx) [place] [address] [facility] [address] 4th [place] [address] Social History Tobacco Use Types Packs/Day Years Used Date Smoking Tobacco: Never Smokeless Tobacco: Never Alcohol Use Standard Drinks/Week Comments Not Currently 0 (1 standard drink = 0.6 oz pure alcoho l) Sex Assigned at Date Recorded Female 12/02/2020 1:42 PM CDT documented as of this encounter Plan of Treatment Not on filedocumented as of this encounter Results XR EOS Total Body (08/24/2021 3:05 PM MANAGING EDITOR) Anatomical Region Laterality Modality Spine, Lower Extremity Computed Radiogra phy Specimen (Source) Anatomical Location Collection Method / Collectio n Time Received Time / Laterality Volume Impressions 08/24/2021 3:36 PM MANAGING EDITOR Impression: 1. Stable postoperative changes of spina l fusion instrumentation from T4-L4. The hardware appears intact. 2. Positive global sagittal imbalance. N o global coronal imbalance. 3. Weightbearing axis as detailed above. RAHUL MARTINEZ MD Narrative 08/24/2021 3:36 PM MANAGING EDITOR Exam: Full body radiographs using EOS History: [...] No substantial global coronal imbalance. Sagittal Vertical [place] (A vertical line drawn from the center [...] No substantial global coronal imbalance. Sagittal Vertical [place] (A vertical line drawn from the center [...] status documented in this encounter Care Teams Assistant Mechanic Relationship Specialty Start Date End Date Josh Carrero PCP - General [facility] Medicine 08/09/[address] [phone] Julian Spencer MD Orthopedics 03/08/20 MD Darell [facility] [address] [place] [address] [id number] Julian Spencer Assigned Musculoskeletal 05/27/20 MD Darell Provider [address] [place] [address] Urbano Price Assigned PCP 11/13/20 MD Esteban [address] [place] [address] Joe Leo MD Physical Medicine and 04/11/21 MD Rehabilitation [address] [place] [address] Joe Leo, Ade Neuroscience 04/30/21 MD Provider [address] [address] Douglas Gonzalez MD Pediatrics 05/29/21 MD Julian [address] [place], [place] [phone] [place] [address] [place], Douglas Assigned Pediatric 06/04/21 MD Julian Specialist Provider [facility]0 [address] [address] documented as of this encounter
--- OUTSIDE RECORDS SUMMARY | 2022-06-18 11:54 | XMS_ITS | Encounter Summary ---
:2001 Author Organization [place] Address [address] [place] [address] Care Team Providers Name Role Phone Julian Spencer MD Unavailable Julian Spencer MD Unavailable Josh Carrero Primary Care Provider Urbano Price MD Unavailable Joe Leo MD Unavailable Joe Leo MD Unavailable Douglas Gonzalez MD Unavailable [phone] Douglas Gonzalez MD Unavailable [phone] Reason for Visit Diagnostic Imaging XR (Routine) - Pending Review Specialty Diagnoses / Procedures Referred By Contact Refer red To Contact Diagnoses S/P spinal surgery Julian Spencer MD Procedures XR Pelvis 1/[address] [place], [place] [address] Referral ID Status Reason Start Date Expiration Date Visits V isits Requested Authorized [id number] Pending 08/24/2021 08/24/2022 1 1 Review Encounter Details Date Type Department Care Team Description 08/24/2021 Ancillary Procedure [facility] Julian Phipps S/P spinal surgery Orthopedic Xray MD Darell [place] [address] [facility] [address] 4[address] [place] [phone] Social History Tobacco Use Types Packs/Day Years Used Date Smoking Tobacco: Never Smokeless Tobacco: Never Alcohol Use Standard Drinks/Week Comments Not Currently 0 (1 standard drink = 0.6 oz pure alcoho l) Sex Assigned at Date Recorded Female 12/02/2020 1:42 PM CDT COVID-19 Exposure Response Date Recorded In the last month, have you been in contact with No / Unsure 08/24/2021 3:05 PM COMMERCIAL LINES SALES EXECUTIVE someone who was confirmed or suspected to have Coronavirus / COVID-19? documented as of this encounter Plan of Treatment Not on filedocumented as of this encounter Procedures Procedure Name Priority Date/Time Associated Diagnosis Comme nts XR PELVIS 1/2 VIEWS Routine 08/24/2021 3:24 PM S/P spinal surg holly Results for this COMMERCIAL LINES SALES EXECUTIVE procedure are i n the results section. documented in this encounter Results XR Pelvis 1/2 Views (08/24/2021 3:24 PM COMMERCIAL LINES SALES EXECUTIVE) Anatomical Region Laterality Modality Abdomen/Pelvis Computed Radiography Specimen (Source) Anatomical Location Collection Method / Collectio n Time Received Time / Laterality Volume Impressions 08/24/2021 4:00 PM COMMERCIAL LINES SALES EXECUTIVE IMPRESSION: Mild asymmetric sclerosis of right iliac bone at the sacroiliac joint. WILNER DREW Narrative 08/24/2021 4:00 PM COMMERCIAL LINES SALES EXECUTIVE One view pelvis radiograph(s) 08/24/2021 3:58 PM [...] right iliac bone at the sacroiliac joint. [place] [employer] Julian Spencer MD IMG DIAGNOSTIC IMAGING ORDER DANO documented in this encounter Visit Diagnoses Diagnosis S/P spinal surgery Other postprocedural status documented in this encounter Care Teams Cigarette Making Examiner Relationship Specialty Start Date End Date Josh Carrero PCP - General Family Medicine 08/09/[address] [address] Julian Spencer MD Orthopedics 03/08/20 MD Darell [address] [place] [address] 988804 Julian Spencer Assigned Musculoskeletal 05/27/20 MD Darell Provider [facility] [address] [place] [address] Urbano Price Assigned PCP 11/13/20 MD Esteban [facility] [place] [address] Joe Leo MD Physical Medicine and 04/11/[address] [place] [address] [phone] Joe Leo Assigned Neuroscience 04/30/21 MD Provider [address] [phone] Douglas Gonzalez MD Pediatrics 05/29/21 MD Julian [address] [address] Douglas Gonzalez Assigned Pediatric 06/04/21 MD Julian Specialist Provider [facility]0 [address] [phone] documented as of this encounter
--- OUTSIDE RECORDS SUMMARY | 2022-06-18 11:55 | XMS_ITS | Encounter Summary ---
:2001 Author Organization [facility] Address [address] [place] [address]. [place] [address] Care Team Providers Name Role Phone Julian Spencer MD Unavailable Julian Spencer MD Unavailable Eugenio Finney MD Unavailable [phone] Josh Carrero Primary Care Provider Urbano Price MD Unavailable Joe Leo MD Unavailable Joe Leo MD Unavailable Douglas Gonzalez MD Unavailable [phone] Douglas Gonzalez MD Unavailable [phone] Reason for Visit Rehab Therapy Physical Therapy (Routine) - Closed Specialty Diagnoses / Procedures Referred By Contact Refer red To Contact Diagnoses History of fusion of spine for scoliosis Muscle spasm of back Julian Spencer MD [facility] [address] & Physical Therapy - [place], [place] [address] [address] [place] [address] [place] [address] [place], [place] [phone] Phone: Fax: Referral ID Status Reason Start Date Expiration Date Visits Requ ested Visits Authorized [id number] Closed 12/05/2020 12/03/2021 10 10 Encounter Details Date Type Department Care Team Description 04/27/2021 Therapy Visit [facility], Aftercare following surgery of the musculoskeletal system (Primary Dx); Rehabilitation Robert, PT Chronic right-sided low back pain withou t sciatica Services [place] [address] [address] [address] [address] Jasielhortencia cristobal [place], [place] [id number] [phone] Social History Tobacco Use Types Packs/Day Years Used Date Smoking Tobacco: Never Smokeless Tobacco: Never Alcohol Use Standard Drinks/Week Comments Not Currently 0 (1 standard drink = 0.6 oz pure alcoho l) Sex Assigned at Date Recorded Female 12/02/2020 1:42 PM CDT COVID-19 Exposure Response Date Recorded In the last month, have you been in contact with No / Unsure 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 documented as of this encounter Progress Notes Robert [facility]cl[facility], PT - 04/27/2021 1:20 PM CDT Discharge Note Progress reporting period is from initial eval to Apr 27, 2021. Dakota failed to return for next follow up visit and current status is unknown. Please see information below for last relevant information on current status. Patient seen for Rxs Used: 5 visits. SUBJECTIVE Subjective changes noted by patient: Subjective: Functioning at 70% of where she wants to be. 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 . Current pain level is Current Pain level: 2/10. Previous pain level was Initial Pain level: 8/10. Changes in function: Yes (See Goal flowsheet attached for changes in current functional level) Adverse reaction to treatment or activity: None OBJECTIVE Changes noted in objective findings: Objective: LROM: flex 50%, Ext 80% with ER tightness ASSESSMENT/PLAN Diagnosis: R LBP DIAGP: The primary encounter diagnosis was Aftercare following surgery of the musculoskeletal system. A diagnosis of Chronic right-sided low back pain without sciatica was also pertinent to this visit. Updated problem list and treatment plan: Decreased strength - HEP STG/LTGs have been met or progress has been made towards goals: Yes, please see goal flowsheet for most current information Assessment of Progress: current status is unknown. Last current status: Assessment of progress: Pt is progressing well, Pt is progressing as expected Self Management Plans: HEP I have re-evaluated this patient and find that the nature, scope, duration and intensity of the therapy is appropriate for the medical condition of the patient. Dakota continues to require the following intervention to meet STG and LTG's: HEP. Recommendations: Discharge with current home program. Patient to follow up with MD as needed. Please refer to the daily flowsheet for treatment today, total treatment time and time spent performing 1:1 timed codes. documented in this encounter Plan of Treatment Not on filedocumented as of this encounter Procedures Procedure Name Priority Date/Time Associated Diagnosis Comme nts NC THERAPEUTIC Routine 04/27/2021 1:52 PM Aftercare following EXERCISES. EA 15 MIN CDT surgery of the musculoskeletal system Chronic right-sided low back pain without sciatica NC ULTRASOUND THERAPY, Routine 04/27/2021 1:52 PM Aftercare fo llowing EA 15 MIN CDT surgery of the musculoskeletal system Chronic right-sided low back pain without sciatica documented in this encounter Visit Diagnoses Diagnosis Aftercare following surgery of the muscu loskeletal system - Primary Aftercare following surgery of the muscu loskeletal system, NEC Chronic right-sided low back pain withou t sciatica documented in this encounter Care Teams Tire Buster Relationship Specialty Start Date End Date Josh Carrero PCP - General Family Medicine 08/09/[address] [address] Julian Spencer MD Orthopedics 03/08/20 MD Darell [address] [place] [address] [id number] Julian Spencer Assigned Musculoskeletal 05/27/20 MD Darell Provider [address] [place] [id number] Eugenio Finney Assigned Pediatric 06/19/2005/07 MD David Specialist Provider [address] [place] [address] [address] [place], [place] [address] Urbano Price Assigned PCP 11/13/20 MD Esteban [address] [place] [address] [id number] Joe Leo MD Physical Medicine and 04/11/21 MD Rehabilitation [address] [place] [address] [address] [place], [place] [phone] Joe Leo, Assigned Neuroscience 04/30/21 MD Provider [address] [place] [address] [phone] Douglas Gonzalez MD Pediatrics 05/29/21 MD Julian [address] [place] [address] Douglas Gonzalez Assigned Pediatric 06/04/21 MD Julian Specialist Provider [address] [place] [address] documented as of this encounter
--- OUTSIDE RECORDS SUMMARY | 2022-06-18 11:55 | XMS_ITS | Encounter Summary ---
:2001 Author Organization [facility] Address [address] [place] [address]. [place] [address] Care Team Providers Name Role Phone Julian Spencer MD Unavailable Julian Spencer MD Unavailable Eugenio Finney MD Unavailable [phone] Josh Carrero Primary Care Provider Urbano Price MD Unavailable Joe Leo MD Unavailable Joe Leo MD Unavailable Encounter Details Date Type Department Care Team Description 05/12/2021 Orders Only [facility] [place] Service Line [address] [address] [place] [address] [phone] Social History Tobacco Use Types Packs/Day Years Used Date Smoking Tobacco: Never Smokeless Tobacco: Never Alcohol Use Standard Drinks/Week Comments Not Currently 0 (1 standard drink = 0.6 oz pure alcoho l) Sex Assigned at Date Recorded Female 12/02/2020 1:42 PM CDT COVID-19 Exposure Response Date Recorded In the last month, have you been in contact with No / Unsure 04/27/2021 1:24 PM CDT someone who was confirmed or suspected to have Coronavirus / COVID-19? documented as of this encounter Plan of Treatment Not on filedocumented as of this encounter Visit Diagnoses Not on filedocumented in this encounter Care Teams Library Assistant Relationship Specialty Start Date End Date Josh Carrero PCP - General Family Medicine 08/09/[address] [address] Julian Spencer MD Orthopedics 03/08/20 MD Darell [address] [place] [address] [phone] Julian Spencer Assigned Musculoskeletal 05/27/20 MD [place]arell Provider [address] [place] [id number] Eugenio Finney Assigned Pediatric 06/19/2005/07 MD David Specialist Provider [address] [place] [address] 96 [place], [place] [phone] Urbano Price Assigned PCP 11/13/20 MD Esteban [address] [place] [address] Joe Leo MD Physical Medicine and 04/11/21 MD Rehabilitation [address] [facility] [address] [place], [place] [phone] Joe Leo, Assigned Neuroscience 04/30/21 MD Provider [address] [facility] [address] [place] [address] documented as of this encounter
--- OUTSIDE RECORDS SUMMARY | 2022-06-18 11:55 | XMS_ITS | Encounter Summary ---
:2001 Author Organization [place] Address [address] [place] [address]. [place] [address] Care Team Providers Name Role Phone Julian Spencer MD Unavailable Juilan Spencer MD Unavailable Eugenio Finney MD Unavailable [phone] Josh Carrero Primary Care Provider Urbano Price MD Unavailable Joe Leo MD Unavailable Joe Leo MD Unavailable Reason for Visit Reason Comments Blood Transfusion platelets Encounter Details Date Type Department Care Team Description 05/15/2021 Infusion Therapy [facility] Mariposa Atwood elenikki disorder (H) (Primary Dx); Visit [facility] [place] Pediatric MD Nettie Localized osteoporosis without current p athological fracture; Specialty Clinic [address] [place] [address] Pseudarthrosis following spi nal fusion [place], [place] 9th Floor [address] [place] [address] [place], [place] (Work) [address] Social History Tobacco Use Types Packs/Day Years Used Date Smoking Tobacco: Never Smokeless Tobacco: Never Alcohol Use Standard Drinks/Week Comments Not Currently 0 (1 standard drink = 0.6 oz pure alcoho l) Sex Assigned at Date Recorded Female 12/02/2020 1:42 PM CDT COVID-19 Exposure Response Date Recorded In the last month, have you been in contact with No / Unsure 05/15/2021 8:33 AM CDT someone who was confirmed or suspected to have Coronavirus / COVID-19? documented as of this encounter Last Filed Vital Signs Vital Sign Reading Time Taken Comments Blood Pressure 114/71 05/15/2021 11:59 AM CDT Pulse 75 05/15/2021 11:59 AM CDT Temperature 36.6 ??C (97.9 ??F) 05/15/2021 11:59 AM CDT Respiratory Rate 16 05/15/2021 11:59 AM CDT Oxygen Saturation 98% 05/15/2021 11:02 AM CDT Inhaled Oxygen Concentration - - Weight 55.2 kg (121 lb 11.1 oz) 05/15/2021 8:40 AM CDT Height 162 cm (5' 3.78) 05/15/2021 8:40 AM CDT Body Mass Index 21.03 05/15/2021 8:40 AM CDT documented in this encounter Progress Notes Jazzmine Shahid, RN - 05/15/2021 8:30 AM CDT Infusion Nursing Note Dakota Casiano Presents to [facility] today for: Platelet transfusion Due to : Platelet disorder (H) Localized osteoporosis without current pathological fracture Pseudarthrosis following spinal fusion Intravenous Access/Labs: PIV placed in left forearm without difficulty. Labs drawn from PIV, including future endocrinology labs ordered by Dr. Price. Coping: Child Family Life provided a supportive check in and offered activities to do. Infusion Note: One unit of platelets transfused over one hour and completed without complication. Blood consent signed by provider Julianne Chávez NP Post Infusion Assessment: Patient tolerated infusion, Vital signs remained stable throughout and PIVremoved without issue Discharge Plan: Mother and patient verbalized understanding of discharge instructions. Pt left [facility] in stable condition. documented in this encounter Miscellaneous Notes Provider Notification - Janessa Christie CCLS - 05/15/2021 8:30 AM CDT 05/15/21 0970 Child Life Location Infusion Center (Platelets) Intervention Supportive Check In;Family Support;Preparation (Re-introduced self and child life services to pt and pt's mother. Pt already had IV placed prior tothis publications writer's arrival. Pt shared she terell well with pokes. Oriented family to [place] clinic and offered pt age appropriate activities to normalize the environment. Pt chose to do adult coloring and st icker by number today. Pt also brought school work to do during visit. Pt social and engaged with this publications writer, appearing age appropriate in conversation.) Preparation Comment Pt's mother shared pt will be receiving her first b[place] spine [place]. Pt shared she will be using LMX. This publications writer encouraged pt to engage in distraction and deep breathing during injections. Pt appeared to have low anxiety duing conversation about injections Family Support Comment Pt's mother present and supportive Anxiety Low Anxiety Techniques to [place] with Loss/Stress/Change diversional activity;family presence Outcomes/Follow Up Provided Materials;Continue to Follow/Support documented in this encounter Plan of Treatment Not on filedocumented as of this encounter Procedures Procedure Name Priority Date/Time Associated Comments Diagnosis TRANSFUSE PHERESED Routine 05/15/2021 10:46 Platelet disorder PLATELETS (UNIT) AM CDT (H) N-TELOPEPTIDE Routine 05/15/2021 9:55 Platelet disorder Result s for this CROSS-LINKED SERUM AM CDT (H) procedure are in the results section. CALCIUM RANDOM URINE Routine 05/15/2021 9:40 Localized Resu lts for this AM CDT osteoporosis procedure are i n without current the results pathological section. fracture Pseudarthrosis following spinal fusion 1,25 DIHYDROXYVITAMIN D Routine 05/15/2021 9:11 Localized R esults for this AM CDT osteoporosis procedure are i n without current the results pathological section. fracture Pseudarthrosis following spinal fusion C-TELOPEPTIDE, Routine 05/15/2021 9:11 Localized Results fo r this [id number] AM CDT osteoporosis procedure are in without current the results pathological section. fracture Pseudarthrosis following spinal fusion 25 HYDROXYVITAMIN D2 & Routine 05/15/2021 9:11 Localized Re sults for this D3 AM CDT osteoporosis procedure are i n without current the results pathological section. fracture Pseudarthrosis following spinal fusion OSTEOCALCIN Routine 05/15/2021 9:11 Localized Results for this AM CDT osteoporosis procedure are i n without current the results pathological section. fracture Pseudarthrosis following spinal fusion PARATHYROID HORMONE Routine 05/15/2021 9:11 Localized Resul ts for this INTACT AM CDT osteoporosis procedure are i n without current the results pathological section. fracture Pseudarthrosis following spinal fusion COMPREHENSIVE METABOLIC Routine 05/15/2021 9:11 Localized R esults for this PANEL AM CDT osteoporosis procedure are i n without current the results pathological section. fracture Pseudarthrosis following spinal fusion BONE SPECIFIC ALK Routine 05/15/2021 9:11 Localized Results for this PHOSPHATASE AM CDT osteoporosis procedure are i n without current the results pathological section. fracture Pseudarthrosis following spinal fusion TYPE AND SCREEN, ADULT Routine 05/15/2021 9:00 Platelet disord er Results for this AM CDT (H) procedure are i n the results section. ABO/RH TYPE AND SCREEN Routine 05/15/2021 9:00 Platelet disord er Results for this AM CDT (H) procedure are i n the results section. PREPARE PHERESED Routine 05/13/2021 11:00 Results for this PLATELETS (UNIT) AM CDT procedure a re in the results section. documented in this encounter Results Transfuse pheresed platelets (unit) (05/15/2021 12:00 PM CDT) Estee Cox NP BLOOD TRANSFUSION ORDERABLES Transfuse pheresed platelets (unit), 1 Units (05/15/2021 12:00 PM CDT) Estee Cox NP BLOOD TRANSFUSION ORDERABLES N-Telopeptide Cross-Linked Serum (05/15/2021 9:55 AM CDT) P athologist Signature N-Telopeptide 17.2 nM BCE 05/18/2021 [facility] X-Link 9:03 AM CDT Comment: INTERPRETIVE INFORMATION: N-Telopeptide, Cross-Linked, Serum ??Adult Male.......................5.4 - 24.2 nM BCE ??Premenopausal Adult Female.......6.2 - 19.0 nM BCE The target value for treated post-menopa usal adult females is the same as the premenopausal referen ce interval. BCE = Bone Collagen Equivalent Specimen Anatomical Collection Method / Collection Time Recei donal Time (Source) Location / Volume Laterality Blood STRUCTURE OF RIGHT Venipuncture / 05/15/2021 9:55 05/05 9:55 UPPER LIMB / Unknown AM CDT AM CDT Unknown Narrative [facility] - 05/18/2021 9:03 AM CDT Performed By: [facility] [address] [place] [address] Clinical Asst: Brandi Dooley MD Mariposa Atwood MD LAB - BLOOD ORDERABLES Performing Organization Address City/[facility] Phon e Number [employer] [place], [place] [phone] 500 [facility] [address] Calcium random urine with Creat Ratio (05/15/2021 9:40 AM CDT) athologist Signature Calcium Urine <5.0 mg/dL 05/15/2021 [facility] mg/dL 12:13 PM CDT LABORATORY Calcium Urine 05/15/2021 [facility] g/g Cr 12:13 PM CDT LABORATORY Comment: Unable to calculate: ??Urine cr eatinine or calcium value below detectable level Creatinine Urine mg/dL 38 mg/dL 05/15/2021 12:13 PM CDT [facility] Specimen Anatomical Collection Method Collection Time Receive d Time (Source) Location / / Volume Laterality Urine URINE SPECIMEN / Non-blood 05/15/2021 9:40 AM 05/15 Unknown Collection / CDT 10:11 AM CDT Unknown Narrative [facility] - 05/15/2021 12:1 3 PM CDT The reference ranges have not been estab lished in random urine for calcium, creatinine and the calcium g/g creatinin e. The results should be integrated into the clinical context for interpretation. Urbano Price MD LAB - URINE ORDERABLES Performing Organization Address City/[facility] Phon e Number [facility] [place] [address] [facility] [address] [place] [address] [phone] C-Telopeptide, [id number] (05/15/2021 9:11 AM CDT) athologist Signature C-Telopept 398 64 - 640 05/17/2021 [facility] B-X-Linked pg/mL 4:26 PM CDT Comment: REFERENCE INTERVAL: C-Telopeptide, Beta- Cross-Linked, Serum Access complete set of age- and/or gende r-specific reference intervals for this test in the [facility] Test [facility] ([facility]). Specimen Anatomical Collection Method / Collection Time Recei donal Time (Source) Location / Volume Laterality Blood BLOOD SPECIMEN / Venipuncture / 05/15/2021 9:11 2020 9:25 Unknown Unknown AM CDT AM CDT Narrative [email or web address] - 05/17/2021 4:26 PM CDT Postmenopausal Females: 104-1008 pg/mL Performed By: [facility] [address] [place] [address] Clinical Asst: Brandi Dooley MD Urbano Price MD LAB - BLOOD ORDERABLES Performing Organization Address City/State/ZIP Code Phon e Number [facility] [employer] [place], [place] [phone] [address] [facility] [address] Comprehensive metabolic panel (05/15/2021 9:11 AM CDT) athologist [facility] Sodium 138 133 - 144 05/15/2021 [facility] mmol/L 10:02 AM CDT LABORATORY Potassium 3.4 3.4 - 5.3 05/15/2021 [facility] mmol/L 10:02 AM CDT LABORATORY Chloride 103 96 - 110 05/15/2021 [facility] mmol/L 10:02 AM CDT LABORATORY Carbon Dioxide 25 20 - 32 05/15/2021 [facility] (CO2) mmol/L 10:02 AM CDT LABORATORY Anion Gap 10 3 - 14 05/15/2021 [facility] mmol/L 10:02 AM CDT LABORATORY Urea Nitrogen 12 7 - 30 05/15/2021 [facility] mg/dL 10:02 AM CDT LABORATORY Creatinine 0.58 0.50 - 05/15/2021 [facility] 1.00 mg/dL 10:02 AM CDT LABORATORY Calcium 8.9 8.5 - 10.1 05/15/2021 [facility] mg/dL 10:02 AM CDT LABORATORY Glucose 99 70 - 99 05/15/2021 [facility] mg/dL 10:02 AM CDT LABORATORY Alkaline 98 40 - 150 05/15/2021 [facility] Phosphatase U/L 10:02 AM CDT LABORATORY AST 14 0 - 35 U/L 05/15/2021 [facility] 10:02 AM CDT LABORATORY ALT 19 0 - 50 U/L 05/15/2021 [facility] 10:02 AM CDT LABORATORY Protein Total 7.2 6.8 - 8.8 05/15/2021 [facility] g/dL 10:02 AM CDT LABORATORY Albumin 3.8 3.4 - 5.0 05/15/2021 [facility] g/dL 10:02 AM CDT LABORATORY Bilirubin Total 0.5 0.2 - 1.3 05/15/2021 [facility] mg/dL 10:02 AM CDT LABORATORY GFR Estimate >90 >60 05/15/2021 [facility] mL/min/1.7 10:02 AM CDT LABORATORY 3m2 Comment: As of February 12, 2021, eGFR is ca lculated by the CKD-EPI creatinine equation, without race adjustment. eGFR can be inf luenced by muscle mass, exercise, and diet. The reported eGFR is an estimation only and is only applicable if the renal function is stable. Specimen Anatomical Collection Method / Collection Time Recei donal Time (Source) Location / Volume Laterality Blood BLOOD SPECIMEN / Venipuncture / 05/15/2021 9:11 2020 9:25 Unknown Unknown AM CDT AM CDT Urbano Price MD LAB - BLOOD ORDERABLES Performing Organization Address City/State/ZIP Code Phon e Number [facility] [place] [address] [address] [facility]0 [place], [place] [phone] Bone specific alk phosphatase (05/15/2021 9:11 AM CDT) P athologist Signature Bone Spec Alk 22.7 ug/L 05/16/2021 [facility] Phosphatase 3:39 PM CDT Comment: INTERPRETIVE INFORMATION: Bone Specific Alkaline Phosphatase Liver alkaline phosphatase can affect th e measurement of bone specific alkaline phosphatase in is assay. Each 100 U/L of liver alkaline phosphatase contri butes an additional 2.5 to 5.8 ug/L to the bone specific alk burt phosphatase result. Specimen Anatomical Collection Method / Collection Time Recei donal Time (Source) Location / Volume Laterality Blood BLOOD SPECIMEN / Venipuncture / 05/15/2021 9:11 2020 9:25 Unknown Unknown AM CDT AM CDT Narrative [facility] - 05/16/2021 3:39 PM CDT INTERPRETIVE INFORMATION: Bone Specific Alkaline Phosphatase ??Premenopausal Female: ?4.5 - 16.9 ug/L ??Postmenopausal Female: ?? 7.0 - 22.4 ug/L Performed By: [facility] [address] [place] [address] Clinical Asst: Brandi Dooley MD Urbano Price MD LAB - BLOOD ORDERABLES Performing Organization Address [facility] Phon e Number [employer] [place], [place] [phone] [place] [phone] Osteocalcin (05/15/2021 9:11 AM CDT) athologist Signature Osteocalcin by 27 50 05/17/2021 [facility]IA ng/mL 4:26 PM CDT Comment: INTERPRETIVE INFORMATION: Osteocalcin by ECIA In patients with renal failure the osteo calcin result can be elevated, both directly, due to impai red clearance and indirectly, due to renal osteodystrophy. Access complete set of age- and/or gende r-specific reference intervals for this test in the [facility] Test [facility] ([facility]). Specimen Anatomical Collection Method / Collection Time Recei donal Time (Source) Location / Volume Laterality Blood BLOOD SPECIMEN / Venipuncture / 05/15/2021 9:11 2020 9:25 Unknown Unknown AM CDT AM CDT Narrative [facility] - 05/17/2021 4:26 PM CDT Performed By: [facility] [address] [place] [address] Clinical Asst: Brandi Dooley MD Urbano Price MD LAB - BLOOD ORDERABLES Performing Organization Address [facility] Phon e Number [employer] [place], [place] [phone] [address] [facility] [address] Parathyroid Hormone Intact (05/15/2021 9:11 AM CDT) athologist Signature Parathyroid 30 18 - 80 05/15/2021 [facility] Hormone Intact pg/mL 12:43 PM CDT Specimen Anatomical Collection Method / Collection Time Recei donal Time (Source) Location / Volume Laterality Blood BLOOD SPECIMEN / Venipuncture / 05/15/2021 9:11 2020 9:25 Unknown Unknown AM CDT AM CDT Urbano Price MD LAB - BLOOD ORDERABLES Performing Organization Address City/State/ZIP Code Phon [place] [address] [place] [address], Room 3[address]580 [place] [address], [facility] [address] [facility], Room 3580 1,25 Dihydroxyvitamin D (05/15/2021 9:11 AM CDT) [facility] gist Method Time Signature 1,25 42.4 19.9 - 05/17/2021 [facility] Dihydroxyvitamin D 79.3 3:31 PM CDT SPECIALTY pg/mL CORE Specimen Anatomical Collection Method / Collection Time Recei donal Time (Source) Location / Volume Laterality Blood BLOOD SPECIMEN / Venipuncture / 05/15/2021 9:11 2020 9:25 Unknown Unknown AM CDT AM CDT Urbano Price MD LAB - BLOOD ORDERABLES Performing Organization Address City/State/ZIP [place] [phone] CORE/PROT/ENDO Core/Prot/Endo [address] [facility] Building, Room 3-580 [place] Lab [address], [facility], Room L271-5 Vitamin D2 + D3, 25 Hydroxy (05/15/2021 9:11 AM CDT) P athologist Signature 25 OH Vitamin <5 ug/L 05/16/2021 [facility] D2 3:18 PM CDT SPECIAL CHEM 25 [place] Vitamin 38 ug/L 05/16/2021 [facility] D3 3:18 PM CDT SPECIAL CHEM 25 [place] Vit D <43 20 - 75 05/16/2021 [facility] Total ug/L 3:18 PM CDT SPECIAL CHEM Comment: Season, race, dietary intake, a nd treatment affect the concentration of 97-ftuyptz-Quvhskg D. Values may decreas e during winter months and increase during summer months. Values 20-29 ug/L may ind icate Vitamin D insufficiency and values <20 ug/L may indicate Vitamin D deficiency. Specimen Anatomical Collection Method / Collection Time Recei donal Time (Source) Location / Volume Laterality Blood BLOOD SPECIMEN / Venipuncture / 05/15/2021 9:11 2020 9:25 Unknown Unknown AM CDT AM CDT Narrative [facility] SPECIAL CHEM - 05/16/2021 3:18 P M CDT This test was developed and its performa nce characteristics determined by the [facility], ??Special Chemistry Laboratory. It has not been cleared or approved by the FDA. The laboratory is regulated under CLIA as qualified to perform high-complexity noah ting. This test is used for clinical purposes. It should not be regarded as i nvestigational or for research. Urbano Price MD LAB - BLOOD ORDERABLES Performing Organization Address City/State/ZIP Code Phon e Number SPECIAL DRUG/BGEN Special Drug/[place] [address] 500 [facility] [address] Building, Room 3-580 [facility] [place] [address], CHEMISTRY [place] [address] [facility], Room [address]223 Adult Type and Screen (05/15/2021 9:00 AM CDT) Patholo gist Method Time Signature ABO/RH(D) O POS 05/15/2021 UR BLOOD 8:45 AM CDT BANK Antibody Negative Negative 05/15/2021 UR BLOOD Screen 8:45 AM CDT BANK SPECIMEN [id number] 05/15/2021 UR BLOOD EXPIRATION 8:45 AM CDT BANK DATE Specimen Anatomical Collection Method / Collection Time Recei donal Time (Source) Location / Volume Laterality Blood BLOOD SPECIMEN / Venipuncture / 05/15/2021 9:00 2020 9:23 Unknown Unknown AM CDT AM CDT Estee Cox NP LAB - BLOOD BANK TEST ORDER Performing Organization Address City/[facility]/ZIP Code Phon e Number UR BLOOD BANK [facility] [place] [address] Components Lab [address] [place] [address], Room M301 Prepare pheresed platelets (unit) (05/13/2021 11:00 AM CDT) [facility] gist Method Time Signature UNIT ABO/RH O Pos UR BLOOD BANK Unit Number [id number] UR BLOOD BANK Unit Status Transfused UR BLOOD BANK Blood Platelets UR BLOOD Component BANK Type Product Code [id number] UR BLOOD BANK CODING SYSTEM [id number] UR BLOOD BANK UNIT TYPE 5100 UR BLOOD ISBT BANK ISSUE DATE [id number] UR BLOOD AND TIME BANK Specimen (Source) Anatomical Collection Method Collection Time Re ceived Time Location / / Volume Laterality 05/13/2021 11:00 AM CDT Provider Unknown BLOOD BANK PRODUCT ORDERABLE S Performing Organization Address City/[facility]/ZIP [facility] Phon e Number UR BLOOD BANK [facility] [place] [address] [facility] [address] [place] [address], Room 01 documented in this encounter Visit Diagnoses Diagnosis 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 Localized osteoporosis without current p athological fracture Pseudarthrosis following spinal fusion Arthrodesis status documented in this encounter Care Teams Implementation Project Coordinator Relationship Specialty Start Date End Date Josh Carrero PCP - General Family Medicine 08/09/[address] [address] Julian Spencer MD Orthopedics 03/08/20 MD Darell [address] [place] [address] Julian Spencer Assigned Musculoskeletal 05/27/20 MD Darell Provider [address] [place] [address] 634714 Eugenio Finney Assigned Pediatric 06/19/2005/07 MD David Specialist Provider 420 [facility] 96 [place], [place] [phone] Urbano Price Assigned PCP 11/13/20 MD Esteban [facility] [place], [place] [phone] Joe Leo MD Physical Medicine and 04/11/21 MD Rehabilitation [address] [place] [address] 297 [place], [place] [phone] Joe Leo, Ade Neuroscience 04/30/21 MD Provider 420 [facility] 297 [place], [place] [phone] documented as of this encounter
--- OUTSIDE RECORDS SUMMARY | 2022-06-18 11:55 | XMS_ITS | Encounter Summary ---
:2001 Author Organization [place] Address [address] [place] [address] Care Team Providers Name Role Phone Julian Spencer MD Unavailable Julian Spencer MD Unavailable Eugenio Finney MD Unavailable [phone] Josh Carrero Primary Care Provider Urbano Price MD Unavailable Joe Leo MD Unavailable Joe Leo MD Unavailable Reason for Referral Clinically Administered Medications - Closed Specialty Diagnoses / Procedures Referred By Contact Refer red To Contact Physical Medicine and Diagnoses Muscle spasm Joe Leo MD [facility] Procedures ZZC BOTULINUM TOXIN A PER 1 UNIT 100 Units ONCE 420 [facility] Rehab [facility] 297 [address] [place], [place] [address]rd [phone] [place] [address] Phone: Fax: Referral ID Status Reason Start Date Expiration Date Visits Requ ested Visits Authorized [id number] Closed 04/25/2021 07/04/2021 1 4 Encounter Details Date Type Department Care Team Description 04/25/2021 Orders Only [facility] Brianna Loe MD Muscle spasm (Primary Neurology Clinic 420 [facility] SE Dx) [facility] [address] [place], [place] [address] [phone] Social History Tobacco Use Types Packs/Day Years [...] documented as of this encounter Progress Notes Dulce Adams RN - 04/25/2021 8:13 AM CDT Order for botox injection placed. Routed to PA team and provider as FYI. Dulce Adams RNCC Neurology documented in this encounter Plan of Treatment Not on filedocumented as of this encounter Visit Diagnoses Diagnosis Muscle spasm - Primary Spasm of muscle documented in this encounter Care Teams Proof Sorter Relationship Specialty Start Date End Date Josh Carrero PCP - General Family Medicine 08/09/[address] [address] Julian Spencer MD Orthopedics 03/08/20 MD Darell [address] [phone] Julian Spencer Assigned Musculoskeletal 05/27/20 MD Darell Provider [address] [place], [place] [phone] Eugenio Finney Assigned Pediatric 06/19/2005/07 0/21 MD David Specialist Provider 420 [facility] 96 [place] [address] Urbano Price Assigned PCP 11/13/20 MD Esteban [address]50 [place] [address] Joe Leo MD Physical Medicine and 04/11/21 MD Rehabilitation [address] [place] [address] 297 [place] [address] Joe Leo, Assigned Neuroscience 04/30/21 MD Provider [address] [place] [address] documented as of this encounter
--- OUTSIDE RECORDS SUMMARY | 2022-06-18 11:55 | XMS_ITS | Encounter Summary ---
:2001 Author Organization [place] Address [address] [place] [address] Care Team Providers Name Role Phone Julian Spencer MD Unavailable Julian Spencer MD Unavailable Eugenio Finney MD Unavailable [phone] Josh Carrero Primary Care Provider Urbano Price MD Unavailable Joe Leo MD Unavailable Encounter Details Date Type Department Care Team Description 04/27/2021 Travel Social History Tobacco Use Types Packs/Day [...] filedocumented in this encounter Care Teams Education Trainer Relationship Specialty Start Date End Date Josh Carrero PCP - General Family Medicine 08/09/[address] [address] Julian Spencer MD Orthopedics 03/08/20 MD Darell [address] [place] [address] Julian Spencer Assigned Musculoskeletal 05/27/20 MD Darell Provider [address] [place] [address] Eugenio Finney Assigned Pediatric 06/19/2005/07 MD David Specialist Provider 420 [facility] 96 [place] [address] Urbano Price Assigned PCP 11/13/20 MD Esteban 2450 [place] [address] Joe Leo MD Physical Medicine and 04/11/21 MD Rehabilitation 420 [facility] 297 [place] [address] documented as of this encounter
--- OUTSIDE RECORDS SUMMARY | 2022-06-18 11:55 | XMS_ITS | Encounter Summary ---
:2001 Author Organization [place] Address [address] [place] [address]. [place] [address] Care Team Providers Name Role Phone Julian Spencer MD Unavailable Julian Spencer MD Unavailable Eugenio Finney MD Unavailable [phone] Josh Carrero Primary Care Provider Urbano Price MD Unavailable Joe Leo MD Unavailable Reason for Visit Rehab Therapy Physical Therapy (Routine) - Closed Specialty Diagnoses / Procedures Referred By Contact Refer red To Contact Diagnoses History of fusion of spine for scoliosis Muscle spasm of back Julian Spencer MD [facility] [address] & Physical Therapy - [place], [place] 1318 4 [place] [address] [place] E [facility] 20 [place], [place] [address] Phone: Fax: Referral ID Status Reason Start Date Expiration Date Visits Requ ested Visits Authorized [id number] Closed 12/05/2020 12/03/2021 10 10 Encounter Details Date Type Department Care Team Description 04/14/2021 Therapy Visit [facility] Aftercare following surgery of the musculoskeletal system (Primary Dx); Rehabilitation JUDY Jones Muscle spasm of back; Services [place] [address] VIENNA Chronic right-sided low back pain without sciatica [address] [place] [address] Social History Tobacco Use Types Packs/Day Years Used Date Smoking Tobacco: Never Smokeless Tobacco: Never Alcohol Use Standard Drinks/Week Comments Not Currently 0 (1 standard drink = 0.6 oz pure alcoho l) Sex Assigned at Date Recorded Female 12/02/2020 1:42 PM CDT COVID-19 Exposure Response Date Recorded In the last month, have you been in contact with No / Unsure 04/14/2021 2:01 PM CDT someone who was confirmed or suspected to have Coronavirus / COVID-19? documented as of this encounter Plan of Treatment Not on filedocumented as of this encounter Procedures Procedure Name Priority Date/Time Associated Diagnosis Comme nts TX THERAPEUTIC Routine 04/14/2021 3:27 PM Aftercare following EXERCISES. EA 15 MIN CDT surgery of the musculoskeletal system Muscle spasm of back Chronic right-sided low back pain without sciatica TX ULTRASOUND THERAPY, Routine 04/14/2021 3:27 PM Aftercare fo llowing EA 15 MIN CDT surgery of the musculoskeletal system Muscle spasm of back Chronic right-sided low back pain without sciatica documented in this encounter Visit Diagnoses Diagnosis Aftercare following surgery of the muscu loskeletal system - Primary Aftercare following surgery of the [facility] los[facility] system, N[facility] Muscle spasm of back Other symptoms referable to back Chronic right-sided low back pain withou t sciatica documented in this encounter Care Teams Retail Branch Manager Relationship Specialty Start Date End Date Josh Carrero PCP - General Family Medicine 08/09/[address] [address] Julian Spencer MD Orthopedics 03/08/20 MD Darell [address] [place] [address] Julian Spencer Assigned Musculoskeletal 05/27/20 MD Darell Provider [address] [place] [address] Eugenio Finney Assigned Pediatric 06/19/2005/07 MD David Specialist Provider 420 [facility] 96 [place], [place] [phone] Urbano Price Assigned PCP 11/13/20 MD Esteban [facility] [place], [place] [id number] Joe Leo MD Physical Medicine and 04/11/[address] [place] [address] 297 [place], [place] [id number] documented as of this encounter
--- OUTSIDE RECORDS SUMMARY | 2022-06-18 11:55 | XMS_ITS | Encounter Summary ---
:2001 Author Organization [place] Address [address] [place] [address] Care Team Providers Name Role Phone Julian Spencer MD Unavailable Julian Spencer MD Unavailable Eugenio Finney MD Unavailable [phone] Josh Carrero Primary Care Provider Urbano Prcie MD Unavailable Joe Leo MD Unavailable Joe Leo MD Unavailable Reason for Referral Clinically Administered Medications (Routine) - Closed Specialty Diagnoses / Procedures Referred By Contact Refer red To Contact Physical Medicine and Diagnoses Muscle spasm Tethered cord (H) S/P spinal fusion Joe Leo MD [facility] Phys Med & Rehab Procedures ZZC BOTULINUM TOXIN A PER 1 UNIT 25 Units ONCE 420 [facility] Rehab [facility] 297 9[address] [place], [place] 3rd Floor [address] [place] [address] Phone: Fax: Referral ID Status Reason Start Date Expiration Date Visits Requ ested Visits Authorized [id number] Closed 05/15/2021 05/15/2022 100 4 Reason for Visit Reason Comments Botox Clinically Administered Medications (Routine) - Closed Specialty Diagnoses / Procedures Referred By Contact Refer red To Contact Physical Medicine and Diagnoses Muscle spasm Tethered cord (H) S/P spinal fusion Joe Leo MD [facility] Phys Med & Rehab Procedures ZZC BOTULINUM TOXIN A PER 1 UNIT 25 Units ONCE 420 [facility] Rehab [facility] 297 [address] [place], [place] [address] [place] [address] Phone: Fax: Referral ID Status Reason Start Date Expiration Date Visits Requ ested Visits Authorized [id number] Closed 05/15/2021 05/15/2022 100 4 Encounter Details Date Type Department Care Team Description 05/15/2021 Office Visit [facility] Joe Leo, Muscle spasm (Primary Dx); Physical Medicine and Tethered cord (H); Rehabilitation Clinic 420 [facility] S/P spinal fusion; [facility] 297 Chronic pain syndrome 909 [place], [place] [address] [place] [address] [phone] [address] (Work) [phone] Social History Tobacco Use Types Packs/Day Years [...] Sign Reading Time Taken Comments Blood Pressure 127/71 05/15/2021 1:29 PM CDT Pulse 93 05/15/2021 1:29 PM CDT Temperature 36.8 ??C (98.3 ??F) 05/15/2021 1:29 PM CDT Respiratory Rate 16 05/15/2021 1:29 PM CDT Oxygen Saturation 97% 05/15/2021 1:29 PM CDT Inhaled Oxygen Concentration - - Weight - - Height - - Body Mass Index - - documented in this encounter Progress Notes Joe Leo MD - 05/15/2021 1:30 PM CDT PROCEDURE NOTE: Intramuscular Botulinum toxin injection Under Ultrasound Guidance PROCEDURE DATE: 05/15/2021 PATIENT NAME: Dakota Casiano DATE OF : 2000 ATTENDING PHYSICIAN: Joe Leo MD FELLOW/RESIDENT PHYSICIAN: Milton Reyes MD, PGY-III ULTRASOUND WAS USED. Current Indication: Spasticity/muscle spasm PROCEDURE AND FINDINGS: She was greeted in the clinic. The risk, benefits and alternatives to the procedure were again reviewed with her and informed consent was obtained and the patient agreed to proceed. A time-out was performed. Following review alternatives, benefits and risks, the procedure was carried out under sterile prep with sterile gel. The use of direct sonographic guidance was used to ensure accurate placement of the needle (rather than non-guided injection) and required to minimize the risk of bleeding or injury to nearby neurovascular structures. A 5-1MHz ultrasound transducer was used to visualize the relevant structures and determine the optimal needle path for the procedure. A 25 gauge 2-inch, 27 gauge and 1.25-inch needles were advanced utilizing under continuous ultrasound guidance to the lumbar paraspinal muscle on the right (erector spinae and quadratus lumborum). The tip of the needle was visualized throughout the procedure. The remainder of the single-use vials were discarded. 100 units of botulinum toxin was diluted 50 units/mL of preservative free saline (2:1). The following muscles were injected: 10 units right quadratus lumborum (5 units x2 locations) 15 units right erector spinae (x3 locations) 25 total units used. The remainder (75 units) of the single-use vials were discarded. She tolerated the procedure, was discharged home in stable condition. Follow-up will be determined after review of pain diary/block sheet COMPLICATIONS: None COMMENTS: -Patient completed platelet transfusion prior to injection today as instructed by hematology. -Patient reported significant pain and muscle spasms with needle insertion. Consider use of muscle relaxer and/or anxiolytic prior to future procedures. Procedure was performed entirely by myself with resident physician present for education only. documented in this encounter Nursing Notes Maurilio Castaneda - 05/15/2021 1:30 PM CDT Chief Complaint Patient presents with ??? 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 fusion Arthrodesis status Chronic pain syndrome documented in this encounter Administered Medications Inactive Administered Medications - up to 3 most recent administrations Medication Order MAR Action Action Date Dose Rate Site botulinum toxin type A Given by Other 05/15/2021 5:08 PM CDT 25 Units (BOTOX) 100 units injection 25 Units 25 Units, Intramuscular, ONCE, On Sat05/15/21 at 1500, For 1 dose documented in this encounter Care Teams Gauge Operator Relationship Specialty Start Date End Date Josh Carrero PCP - General Family Medicine 08/09/[address] [address] Julian Spencer MD Orthopedics 03/08/20 MD Darell [address] [place] [address] Julian Spencer Assigned Musculoskeletal 05/27/20 MD Darell Provider [address] [place] [address] 6[address] Eugenio Finney Assigned Pediatric 06/19/2005/07 0/21 MD David Specialist Provider 420 [facility] 96 [place] [address] Urbano Price Assigned PCP 11/13/20 MD Esteban 2450 [place] [address] Joe Leo MD Physical Medicine and 04/11/21 MD Rehabilitation [address] [place] [address] 297 [place] [address] Joe Leo, Assigned Neuroscience 04/30/21 MD Provider [address] [address] documented as of this encounter
--- OUTSIDE RECORDS SUMMARY | 2022-06-18 11:55 | XMS_ITS | Encounter Summary ---
:2001 Author Organization [place] Address [address] [place] [address] Care Team Providers Name Role Phone Julian Spencer MD Unavailable Julian Spencer MD Unavailable Eugenio Finney MD Unavailable [phone] Josh Carrero Primary Care Provider Urbano Price MD Unavailable Joe Leo MD Unavailable Encounter Details Date Type Department Care Team Description 04/11/2021 Travel Social History Tobacco Use Types Packs/Day Years Used Date Smoking Tobacco: Never Smokeless Tobacco: Never Alcohol Use Standard Drinks/Week Comments Not Currently 0 (1 standard drink = 0.6 oz pure alcoho l) Sex Assigned at Date Recorded Female 12/02/2020 1:42 PM CDT COVID-19 Exposure Response Date Recorded In the last month, have you been in contact with No / Unsure 04/11/2021 2:16 PM CDT someone who was confirmed or suspected to have Coronavirus / COVID-19? documented as of this encounter Plan of Treatment Not on filedocumented as of this encounter Visit Diagnoses Not on filedocumented in this encounter Care Teams Surface Lay Out Technician Relationship Specialty Start Date End Date Josh Carrero PCP - General Family Medicine 08/09/[address] [address] Julian Spencer MD Orthopedics 03/08/20 MD Darell [address] [place] [address] Julian Spencer Assigned Musculoskeletal 05/27/20 MD Darell Provider [address] [place] [address] Eugenio Finney Assigned Pediatric 06/19/2005/07 MD David Specialist Provider 420 [facility] 96 [place] [address] Urbano Price Assigned PCP 11/13/20 MD Esteban 2450 [place] [address] Joe Leo MD Physical Medicine and 04/11/21 MD Rehabilitation 420 [facility] 297 [place] [address] documented as of this encounter
--- OUTSIDE RECORDS SUMMARY | 2022-06-18 11:55 | XMS_ITS | Encounter Summary ---
:2001 Author Organization [place] Address [address] [place] [address] Care Team Providers Name Role Phone Julian Spencer MD Unavailable Julian Spencer MD Unavailable Eugenio Finney MD Unavailable [phone] Josh Carrero Primary Care Provider Urbano Price MD Unavailable Joe Leo MD Unavailable Encounter Details Date Type Department Care Team Description 04/20/2021 Travel Social History Tobacco Use Types Packs/Day Years Used Date Smoking Tobacco: Never Smokeless Tobacco: Never Alcohol Use Standard Drinks/Week Comments Not Currently 0 (1 standard drink = 0.6 oz pure alcoho l) Sex Assigned at Date Recorded Female 12/02/2020 1:42 PM CDT COVID-19 Exposure Response Date Recorded In the last month, have you been in contact with No / Unsure 04/20/2021 10:54 AM CDT someone who was confirmed or suspected to have Coronavirus / COVID-19? documented as of this encounter Plan of Treatment Not on filedocumented as of this encounter Visit Diagnoses Not on filedocumented in this encounter Care Teams Slack Line Yarder Relationship Specialty Start Date End Date Josh Carrero PCP - General Family Medicine 08/09/[address] [address] Julian Spencer MD Orthopedics 03/08/20 MD Darell [address] [place] [address] Julian Spencer Assigned Musculoskeletal 05/27/20 MD Darell Provider [address] [place] [address] Eugenio Finney Assigned Pediatric 06/19/2005/07 MD David Specialist Provider 420 [facility] 96 [place] [address] Urbano Price Assigned PCP 11/13/20 MD Esteban 2450 [place] [address] Joe Leo MD Physical Medicine and 04/11/21 MD Rehabilitation 420 [facility] 297 [place] [address] documented as of this encounter
--- OUTSIDE RECORDS SUMMARY | 2022-06-18 11:55 | XMS_ITS | Encounter Summary ---
:2001 Author Organization [place] Address 2450 [facility] [place] [address] Care Team Providers Name Role Phone Julian Spencer MD Unavailable Julian Spencer MD Unavailable Eugenio Finney MD Unavailable [phone] Josh Carrero Primary Care Provider Urbano Price MD Unavailable Joe Leo MD Unavailable Joe Leo MD Unavailable Douglas Gonzalez MD Unavailable [phone] Douglas Gonazlez MD Unavailable [phone] Encounter Details Date Type Department Care Team Description 05/25/2021 [facility] Smith Gonzalez, Pediatric Specialty Clinic 2512 [facility], 3rd F ovi 2450 [facility] Z[address] [place], [place] 09[address]-7192 [place] [address] (Wo rk) Social History Tobacco [...] Notes Telephone Encounter - Ivelisse Carolina - 05/25/2021 2:42 PM CDT Mom / Dakota are not sure if they want to return to the Pain Clinic at this time. Appt is scheduled for 05/29 they will call back and let us know if they want to keep it or have it be cancelled Thanks Ivelisse documented in this encounter Plan of Treatment Not on filedocumented as of this encounter Visit Diagnoses Not on filedocumented in this encounter Care Teams Vp Data Relationship Specialty Start Date End Date Josh Carrero PCP - General Family Medicine 08/09/20 [place] [id number] Julian Spencer MD Orthopedics 03/08/20 MD Darell [facility] [place] [id number] Julian Spencer Assigned Musculoskeletal 05/27/20 MD Darell Provider [facility] [address] [id number] uEgenio Finney Assigned Pediatric 06/19/2005/07 MD David Specialist Provider [address] [place] [address] Urbano Price Assigned PCP 11/13/20 MD Esteban [facility]0 [place], [place] 6[address] Joe Leo MD Physical Medicine and 04/11/21 MD Rehabilitation [address] 025[address] Joe Leo, Assigned Neuroscience 04/30/21 MD Provider [address] [place] [id number] Douglas Gonzalez MD Pediatrics 05/29/21 MD Julian [address] [place] [address] Douglas Gonzalez Assigned Pediatric 06/04/21 MD Julian Specialist Provider [address] [place] [address] documented as of this encounter
--- OUTSIDE RECORDS SUMMARY | 2022-06-18 11:55 | XMS_ITS | Encounter Summary ---
:2001 Author Organization [place] Address [address] [place] [address] Care Team Providers Name Role Phone Julian Spencer MD Unavailable Julian Spencer MD Unavailable Eugenio Finney MD Unavailable [phone] Josh Carrero Primary Care Provider Urbano Price MD Unavailable Joe Leo MD Unavailable Joe Leo MD Unavailable Reason for Visit Reason Onset Date Comments Refill Request 05/04/2021 Encounter Details Date Type Department Care Team Description 05/04/[address] [facility] Catalina De La Torre, RN Refill Request Pediatric Specialty Clinic [address] [place] [phone] Social History Tobacco Use Types [...] following spinal fusion - Primary Arthrodesis status Localized osteoporosis without current p athological fracture documented in this encounter Care Teams Accounting Coordinator Relationship Specialty Start Date End Date Josh Carrero PCP - General Family Medicine 08/09/[address] [id number] Julian Spencer MD Orthopedics 03/08/20 MD Darell [address] [place] [id number] Julian Spencer Assigned Musculoskeletal 05/27/20 MD Darell Provider [address] [place] [id number] Eugenio Finney Assigned Pediatric 06/19/2005/07 MD David Specialist Provider 420 [facility] 96 [place], [place] 434915 Urbano Price Assigned PCP 11/13/20 MD Esteban 2450 [place] [address] Joe Leo MD Physical Medicine and 04/11/21 MD Rehabilitation 420 [facility] 297 [place], [place] 213035 Joe Leo, Assigned Neuroscience 04/30/21 MD Provider 420 [facility] 297 [place], [place] [address] documented as of this encounter
--- OUTSIDE RECORDS SUMMARY | 2022-06-18 11:55 | XMS_ITS | Encounter Summary ---
:2001 Author Organization [place] Address [address] [place] [address] Care Team Providers Name Role Phone Julian Spencer MD Unavailable Julian Spencer MD Unavailable Eugenio Finney MD Unavailable [phone] Josh Carrero Primary Care Provider Urbano Price MD Unavailable Joe Leo MD Unavailable Joe Leo MD Unavailable Douglas Gonzalez MD Unavailable [phone] Douglas Gonzalez MD Unavailable [phone] Reason for Visit Reason Onset Date Comments Medication Question 04/20/2021 order clarification Encounter Details Date Type Department Care Team Description 04/20/2021 Telephone [facility] Joe Leo Medica tiarnie Question Physical Medicine and (order clarification ) Rehabilitation Clinic 420 [facility] 297 9 [place], [place] 3rd Floor [address] [place], [place] [phone] [address] (Work) [phone] Social History Tobacco Use Types Packs/Day Years [...] this encounter Miscellaneous Notes Telephone Encounter - Soni Sauceda RN - 04/20/2021 4:12 PM CDT [facility] pharmacy contacted back to go over medication instructions as per Dr Leo. Instructions also can be found on patient's AVS and gone over in detail at end of clinic visit on 04/20/21. Telephone Encounter - RosaliaNovember - 04/20/2021 3:05 PM CDT [facility] Phone Message May a detailed message be left on voicemail: yes Reason for Call: Medication Question or concern regarding medication Prescription Clarification Name of Medication: baclofen (LIORESAL) 10 MG tablet Prescribing Provider: Joe Leo MD Pharmacy: [id number] [address] What on the order needs clarification? Pharmacy stated the rder doesn't specify when to increase to one full tablet. Action Taken: Message routed to: [facility] neurology Travel Screening: Not Applicable documented in this encounter Plan of Treatment Not on filedocumented as of this encounter Visit Diagnoses Not on filedocumented in this encounter Care Teams Learning And Development Manager Relationship Specialty Start Date End Date Josh Carrero PCP - General Family Medicine 08/09/[address] [address] Julian Spencer MD Orthopedics 03/08/20 MD Darell [facility] 303734 Julian Spencer Assigned Musculoskeletal 05/27/20 MD Darell Provider [address] [facility] [address] [place], [place] [phone] Eugenio Finney Assigned Pediatric 06/19/2005/07 MD David Specialist Provider [address] [place] [address] 96 [place], [place] 6[address] Urbano Price Assigned PCP 11/13/20 MD Esteban [address] [place] [address] 400964 Joe Leo MD Physical Medicine and 04/11/21 MD Rehabilitation [address] [place] [address] 297 [place], [place] 116475 Joe Leo, Assigned Neuroscience 04/30/21 MD Provider 420 [facility] 297 [place], [place] 323265 Douglas Gonzalez MD Pediatrics 05/29/21 MD Julian [address] [place] [address]24 Douglas Gonzalez Assigned Pediatric 06/04/21 MD Julian Specialist Provider [address] [place] [address] [id number] documented as of this encounter
--- OUTSIDE RECORDS SUMMARY | 2022-06-18 11:55 | XMS_ITS | Encounter Summary ---
:2000 Author Organization [place] Address [facility] [place] [address] Care Team Providers Name Role Phone Julian Spencer MD Unavailable Julian Spencer MD Unavailable Eugenio Finney MD Unavailable [phone] Josh Carrero Primary Care Provider Urbano Price MD Unavailable Joe Leo MD Unavailable Joe Leo MD Unavailable Fernando Rondon MD Unavailable [phone] Reason for Visit Reason Comments RECHECK Follow up Encounter Details Date Type Department Care Team Description 05/29/2021 Office Visit [facility] Fernando Rondon Chron ic pain syndrome (Primary Dx); [facility] MD Julian Neuromuscular scoliosis of thoracolumbar region; Specialty Clinic [address] [place] [address] Chronic musculoskeletal pain ; [address] Back muscle spasm; Floor [place], [place] Problem with school attendan ce; [place] [address] Physical deconditioning; [id number] Circadian rhythm sleep disor diony; Decreased social interaction; PTSD (pos t-traumatic stress disorder); POTS (postural orthostatic tachycardia syndrome); Drug allergy; Neuropathic elmer n; Adjustment diso rder with mixed anxiety and depressed mood; Polyarthralgia; Sedated due to medication; Ineffective rola g action Social History Tobacco Use Types Packs/Day Years [...] Sign Reading Time Taken Comments Blood Pressure 101/66 05/29/2021 1:03 PM CDT Pulse 80 05/29/2021 1:03 PM CDT Temperature - - Respiratory Rate - - Oxygen Saturation - - Inhaled Oxygen Concentration - - Weight 55.4 kg (122 lb 2.2 oz) 05/29/2021 1:03 PM CDT Height 161.7 cm (5' 3.66) 05/29/2021 1:03 PM CDT Body Mass Index 21.19 05/29/2021 1:03 PM CDT documented in this encounter Patient [facility] Jordan MD - 05/29/2021 1:00 PM CDT Medication Recommendations: - Stop Flexaril (cyclobenzaprine) - Start Lyrica (pregabalin), 150 mg twice/day - Start Vailum (diazepam), 1/2 tablet every six hours - Continue [place] (hydromorphone-acetaminophen), 5-325 mg PRN - Continue Celebrex (celecoxib), 100 mg twice /day - Continue Zoloft (sertraline) MOST IMPORTANTLY: 1) Re-start physical therapy as soon as able. 2) Start pain psychology with Sherri 3) A referral for Integrative Medicine (Estee) has been placed. 4) Live life as if you were not in any pain! - School, sports, sleep and social Follow-up: 4-6 weeks Our nurse Dulce will give you a call by end of the week and early next week to see how you're doing with the above medications, and to get any information needed to get you back into [place]. Fernando Rondon MD, MAEd Quantometer Operator of Pediatrics Purifying Plant Operator, Pain and Advanced/Complex Care Team (PACCT) [facility] documented in this encounter Progress Notes Fernando Rondon MD - 05/29/2021 1:00 PM CDT Images from the original note were not included. Pain and Advanced/Complex Care Team (PACCT) [facility], Follow-up Visit Dakota Casiano Age: [age] year old Date of : 2000 Date: May 29, 2021 Primary care provider: Josh Carrero Reason and/or Goals of Clinic Visit: symptom assessment, medication management, treatment adjustment, and pain neuroscience education. Dakota was accompanied by her mother (Tiffany), and I spent a total of 120 minutes on this encounter, which includes time in chart review, consultation with other health care providers, meeting with Dakotaand her parents, and the authoring of this progress note. The following is a summary of our conversation; additional information was obtained from a review of relevant medical records. SUBJECTIVE ASSESSMENT History of the Present Illness Dakota Casiano is a 20 year old female, who I saw for the first time at the beginning of August during her inpatient admission, and then again a couple of weeks later for a hospital follow-up. She is reestablishing care in our clinic today after a referral from PM&R physician Dr. Joe Leo foruncontrolled musculoskeletal pain. Interim History When I saw Dakota at the end of August, I referred her to Urgent Care for evaluation of increased pain and a palpable mass at the her surgical incision. She instead saw Dr. Spencer in clinic the following day, and he was not concerned for an infection. Her pain did manage to improve for some time, but then in October, she noticed worsening pain in her right lower back. She also developed right-sided paravertebral muscle spasms. She was referred to physical therapy. On a return visit with Dr. Spencer in April 2021, her pain had become worse, despite participation with PT. At this time, she was taking5 mg hydrocodone (prescribed by PCP) in addition to muscle relaxants, topical creams, massage, cupping and a TENS unit. She was prescribed cyclobenzaprine (Flexaril??) and celecoxib, and referred to Dr. Leo for a quadratus lumborum muscle block. She saw Dr. Leo in the middle of April for said muscle block, but he recommended a Botox injection of her quadratus lumborum given her platelet disorder and the need for a transfusion prior to this procedure. She was told to discontinue cyclobenzaprine and was prescribed baclofen and tramadol for her spasms and pain. She received an intramuscular Botox injection into her right quadratus lumborum and right erector spinae muscles. By this time, her pain germain spread to her left side and up her back to her neck and shoulders. Her increased pain has significantly complicated her ability to function. On a recent family trip to [place], she was not very active throughout the entire vacation (which was unusual). Despite being someone who really does not like to draw attention to herself, she asked to use a wheelchair in the airport. She also asked for assistance during a family trip to the [place] in April. Per her mother's report, she routinely wakes up screaming with pain in her legs that she can't describe to me. She has tried CBD oils, using different pillows, heating pads with massage, elevatingher legs, but nothing seems to help with her pain. She says that she can't seem to ever get comfortable. The previously prescribed celecoxib and cyclobenzaprine were not effective. According to Tiffany, Tramadol knocks her out but she will wake in a few hours in severe pain. Dakota has mentioned to her mother several times that I'm guaranteed this is my hardware. This the spread to her left side, and then radiated superiorly up her back and into her heck and shoulders. Pain got worse in October, started on right lower back then to left lwer back and then started going up back. In November, she went to [place], and was not very active (unusual) during this vacation. Askedto use a wheelchair in the airport (this is very unusual). Went to [place] in April. Wakesup screeming with pains in her legs that she can't describe to me. Pain Assessment(s) First Complaint: Back pain Currently in pain? YES Provocation/Palliation: Ameliorates: Nothing, lying down, lying weirdly on the couch Aggravates: sitting, walking for long distance, sitting in a chair, when sitting on buttocks back pain is worse Quality: uncomfortableness, and sharp, and throbbing, and tingling. Region/Radiation: entire back (upper, middle, lower, right and left), neck and bilateral legs (posterior and anterior) Severity (in the last two weeks; assessed using the 0-10 Numeric Pain Rating Scale, with 10 being the worst pain imaginable): Current: 10 Best: 8 Worst: 10 Usual: 9 Timing/frequency/duration: Timing: Constant; worse during the day (going to school and driving to/from school for 45 min). Better after dinner when lie down. Assessment of Normal Life Functions (compared to two months ago) School Attendance: WORSE - Days of school attended: Since this semester started, Dakota has only been able to attend classes ~25 days out of the semester. - That said, she was able to go to class this morning. Sports/Activity: WORSE - She really wants to return to [employer]. She has done some conditioning (mainly at the end of lastschool year), but is not conditioning with the school team, as she has not yet received medical clearance. - Typical daily activity: walks a couple blocks every day. Was in PT until about a month ago (told to stop until after the clinic visit with Dr. Spencer and the Botox injection with Dr. 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 She typically works almost every weekend for about 7 hours per shift. Sleep: WORSE - Time in bed: 9 pm - Time to fall asleep: an hour or two - Wakes up in the middle of the night due to pain: YES. Time to fall back asleep: 45 minutes - Up and out of bed in AM: 9:30am during the week; 6:15 am on the weekends (work) - Concerning sleep habits: YES NO inconsistent bed time [] [x] weekend sleep binging [] [x] use of screens <30 minutes before sleep [] [x] using bed for non-sleep activities (texting, reading, etc..) [x] [] napping during the day [x] [] Social: WORSE - when I'm in pain, I just want to stay home in bed, and not go out with friend - In the last 2 weeks, have you... YES NO AVOIDED any social event due to pain or the fear of pain. [x] [] LEFT/STOPPED any social event early due to pain [x] [] CANCELLED social plans due to pain [x] [] Participation in Rehabilitation Pain Program Physical Therapy: Stopped about a month ago, as she was told to wait a month after the botox injection before resuming. Current PT: n/a Progress assessment: Working on focused exercises of lower right back muscles, but those exercises were ineffective, so this work morphed into more general exercises. Psychology: Current psychologist[facility] MA, [facility] at [facility] in [place], [place]. She is going to switch over to a more pain-focused provider KELLY Dc, [facility]. Clinic Information: [facility] ([email or web address]), . Integrative Medicine: n/a Integrative medicine specialist: n/a Progress assessment: n/a Past Medical/Social & Family History Reviewed in the EMR and/or with the patient and family; no significant changes were made. OBJECTIVE ASSESSMENT Medications The analgesic medication regimen for Dakota consists of the following: Daily Analgesics dose/route/frequency baclofen 5 mg PO TID celecoxib 100 mg PO BID cyclobenzaprine 10 mg PO qHS sertraline 100 mg PO daily PRN Analgesics aceatminophen 1000 mg PO q6h PRN cyclobenzaprine 10 mg PO qHS PRN diazepam 2 mg PO q12h PRN hydrocodone- acetaminophen 5-325 1 tablet PO q6h PRN hydroxyzine 10-50 mg PO q6h PRN oxycodone- acetaminophen 5-325 1-2 tablets PO q4h PRN trazodone 50 mg PO qHS PRN The [place] Prescription Monitoring Program Database has not been reviewed. Physical Examination Vitals: BP 101/66 Pulse 80 Ht 1.617 m (5' 3.66) Wt 55.4 kg (122 lb 2.2 oz) BMI 21.19 kg/m?? Physical exam deferred per patient request. OVERALL ASSESSMENT Dakota Casiano is a 20 year old female with (1) History of neuromuscular scoliosis of thoracolumbar region status-post posterior spinal fusion with subsequent revision and reinsertion of hardware (2) Chronic pain syndrome (central sensitization with impaired nociceptive descending inhibition), manifesting as chronic widespread musculoskeletal pain (3) Back muscle spasm (3) Functional impairments due to chronic pain, including: (a) Problem with school attendance, rule out avoidance (b) Physical deconditioning (c) Circadian rhythm sleep disturbance (d) Decreased social interaction (4) Adjustment disorder with mixed anxiety and depressed mood (5) Post-traumatic stress syndrome (6) Postural orthostatic tachycardia syndrome (POTS) (7) History of complex regional pain syndrome (CRPS) Impact of pain on quality of life: SEVERELY DEBILITATED. Pain prevents normal function in all areas of life (i.e. school, sports/activity, social life & sleep). RECOMMENDATIONS/PLAN, COUNSELING & COORDINATION PAIN REHABILITATION - I am continuing to recommend multidisciplinary care at this time, with the goal of normalizing life and function. Specifically, I talked with Dakota about the following recommendations: (1) PHYSICAL THERAPY/ACTIVITY: Re-start Physical Therapy as soon as able (2) INTEGRATIVE MEDICINE/MINDFULNESS: A referral was placed for Dakota to see our Integrative Medicine provider, Estee Braden APRN (3) PSYCHOLOGY/MENTAL HEALTH: Start pain psychology with Sherri (4) NORMALIZING LIFE: Live your life as if you weren't in any pain. The importance of this is treating chronic pain was explained in detail to Dakota and her mother. (5) MEDICATIONS: - Discontinue cyclobenzaprine - Start pregablin, 150 mg PO BID - Start diazepam, 1 mg PO q6h - Continue: - Although I rarely recommend combined analgesics, hydrocodone-acetaminophen is one of the medications that has been helpful for Dakota in the past. If taking this medication provides increased function, and participation in therapies that will actually cure her pain, then the benefits of opioid therapy outweigh the risks in this patient. - Continue celecoxib (100 mg PO BID) and sertraline (100 mg PO daily) Follow-Up: With me in 4 weeks. Fernando Rondon MD, MAEd Quantometer Operator of Pediatrics Purifying Plant Operator, Pain & Advanced/Complex Care Team (PACCT) [facility] documented in this encounter Nursing Notes Venecia Baker EMT - 05/29/2021 1:00 PM CDT [facility] [[id number]] Chief Complaint Patient presents with ??? RECHECK Follow up Initial BP 101/66 Pulse 80 Ht 1.617 m (5' 3.66) Wt 55.4 kg (122 lb 2.2 oz) BMI 21.19 kg/m??Estimated body mass index is 21.19 kg/m?? as calculated from the following: Height as of this encounter: 1.617 m (5' 3.66). Weight as of this encounter: 55.4 kg (122 lb 2.2 oz). Medication Reconciliation: complete documented in this encounter Miscellaneous Notes Addendum Note - Fernando Rondon MD - 05/29/2021 1:00 PM CDT Addended by: FERNANDO RONDON on: 06/02/2021 09:37 AM Modules accepted: Orders Addendum Note - Fernando Rondon MD - 05/29/2021 1:00 PM CDT Addended by: FERNANDO RONDON on: 06/02/2021 10:02 AM Modules accepted: Orders documented in this encounter Plan of Treatment Scheduled Orders Name Type Priority Associated Diagnoses Order S chedule RightMed Lab Routine Chronic pain syn drome Ordered: 06/02/2021 Chronic musculos keletal pain PTSD (post-traum atic stress disorder) Drug allergy Neuropathic pain Adjustment disorder with mix ed anxiety and depressed mood Polyarthralgia Sedated due to m edication Ineffective drug action documented as of this encounter Visit Diagnoses Diagnosis Chronic pain syndrome - Primary Neuromuscular scoliosis of thoracolumbar region Other kyphoscoliosis and scoliosis Chronic musculoskeletal pain Mylagia and myositis, unspecified Back muscle spasm Other symptoms referable to back Problem with school attendance Educational circumstance Physical deconditioning Debility, unspecified 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, unspeci fied Decreased social interaction PTSD (post-traumatic stress disorder) Posttraumatic stress disorder POTS (postural orthostatic tachycardia s yndrome) Tachycardia, unspecified Drug allergy Other drug allergy Neuropathic pain Neuralgia, neuritis, and radiculitis, un specified Adjustment disorder with mixed anxiety a nd depressed mood Polyarthralgia Pain in joint, multiple sites Sedated due to medication Other alteration of consciousness Ineffective drug action Unspecified adverse effect of unspecifie d drug, medicinal and biological substance documented in this encounter Care Teams Rural Service Engineer Relationship Specialty Start Date End Date Josh Carrero PCP - General Family Medicine 08/09/[address] [address] Julian Spencer MD Orthopedics 03/08/20 MD Darell [address] [place] [id number] Julian Spencer Assigned Musculoskeletal 05/27/20 MD Darell Provider [facility] [place] [address]684 Eugenio Finney Assigned Pediatric 06/19/2005/07 MD David Specialist Provider [address] [facility] 96 [place], [place] [id number] Urbano Price Assigned PCP 11/13/20 MD Esteban [address] [facility] [place] [address] Joe Leo MD Physical Medicine and 04/11/21 Rehabilitation 420 [facility] 297 [place] [address] Ahmet, Joe, Assigned Neuroscience 04/30/21 MD Provider 420 [facility] [address] [place] [address] Fernando Rondon MD Pediatrics 05/29/21 MD Julian [address] [facility] [address] [place] [address] documented as of this encounter
--- OUTSIDE RECORDS SUMMARY | 2022-06-18 11:55 | XMS_ITS | Encounter Summary ---
:2000 Author Organization [place] Address [address] [place] [address] Care Team Providers Name Role Phone Julian Spencer MD Unavailable Julian Spencer MD Unavailable Eugenio Finney MD Unavailable [phone] Josh Carrero Primary Care Provider Urbano Price MD Unavailable Joe Leo MD Unavailable Joe Leo MD Unavailable Reason for Visit Reason Onset Date Comments Refill Request 05/09/2021 Encounter Details Date Type Department Care Team Description 05/09/2021 Refill [facility] Catalina De La Torre, RN Refill Request [facility] [address] [place] [phone] Social History Tobacco Use Types [...] fracture documented in this encounter Care Teams Stationary Steam Engineer Relationship Specialty Start Date End Date Josh Carrero PCP - General Family Medicine 08/09/[address] [address] Julian Spencer MD Orthopedics 03/08/20 MD Darell [address] [place] [address] Julian Spencer Assigned Musculoskeletal 05/27/20 MD D[place] Provider [address] [place] [address] [id number] Eugenio Finney Assigned Pediatric 06/19/2005/07 MD David Specialist Provider [address] [facility] [address] [place] [address], [place] [address] Urbano Price Assigned PCP 11/13/20 MD Esteban [address]50 [place], [place] [address]274[address] Joe Leo MD Physical Medicine and 04/11/21 MD Rehabilitation [address] [facility] [address] [place] [address] Joe Leo, Assigned Neuroscience 04/30/21 MD Provider [address] [facility] [address] [place] [address], [place] [address] documented as of this encounter
--- OUTSIDE RECORDS SUMMARY | 2022-06-18 11:55 | XMS_ITS | Encounter Summary ---
:2000 Author Organization [place] Address [address] [place] [address] Care Team Providers Name Role Phone Julian Spencer MD Unavailable Julian Spencer MD Unavailable Eugenio Fniney MD Unavailable [phone] Josh Carrero Primary Care Provider Urbano Price MD Unavailable Joe Leo MD Unavailable Encounter Details Date Type Department Care Team Description 04/18/2021 Travel Social History Tobacco Use Types Packs/Day Years Used Date Smoking Tobacco: Never Smokeless Tobacco: Never Alcohol Use Standard Drinks/Week Comments Not Currently 0 (1 standard drink = 0.6 oz pure alcoho l) Sex Assigned at Date Recorded Female 12/02/2020 1:42 PM CDT COVID-19 Exposure Response Date Recorded In the last month, have you been in contact with No / Unsure 04/18/2021 5:29 PM CDT someone who was confirmed or suspected to have Coronavirus / COVID-19? documented as of this encounter Plan of Treatment Not on filedocumented as of this encounter Visit Diagnoses Not on filedocumented in this encounter Care Teams Rubber Belt Splicer Relationship Specialty Start Date End Date Josh Carrero PCP - General Family Medicine 08/09/[address] [address] Julian Spencer MD Orthopedics 03/08/20 MD [place]arell [address] [place] [address] Julian Spencer Assigned Musculoskeletal 05/27/20 MD Darell Provider [address] [place] [address] Eugenio Finney Assigned Pediatric 06/19/2005/07 MD David Specialist Provider 420 [facility] 96 [place] [address] Urbano Price Assigned PCP 11/13/20 MD Esteban [address] [place] [address] Joe Leo MD Physical Medicine and 04/11/21 MD Rehabilitation 420 [facility] 297 [place] [address] documented as of this encounter
--- OUTSIDE RECORDS SUMMARY | 2022-06-18 11:55 | XMS_ITS | Encounter Summary ---
:2000 Author Organization [place] Address [address] [place] [address] Care Team Providers Name Role Phone Julian Spencer MD Unavailable Julian Spencer MD Unavailable Eugenio Finney MD Unavailable [phone] Josh Carrero Primary Care Provider Urbano Price MD Unavailable Joe Leo MD Unavailable Joe Leo MD Unavailable Douglas Gonzalez MD Unavailable [phone] Douglas Gonzalez MD Unavailable [phone] Reason for Visit Reason Onset Date Comments Appointment 04/19/2021 Work in appointment request Encounter Details Date Type Department Care Team Description 04/19/2021 [facility] Joe Leo Appoin tment (Work in Physical Medicine and MD appointment request) Rehabilitation Clinic 420 [facility] [address] Floor [address] [place], [place] [phone] (Work) [phone] Social History Tobacco Use Types Packs/Day Years [...] this encounter Miscellaneous Notes Telephone Encounter - Evelyn Aburto RN - 04/19/2021 4:43 PM CDT Sabina nurse came to find creative services writer to ask for work in. 11:00 work in spot available as another patient was not able to make that time and day. Scheduled patient and Sabina was going to call patient's mother to confirm. Evelyn Aburto RN, BSN, PHN Telephone Encounter - vEelyn Aburto RN - 04/19/2021 10:10 AM CDT Sabina from Ortho called Soni Sauceda RN requesting a work in for this patient to be seen sooner than06/12/[address] Leo. Patient saw Ortho on 04/11/21 and has had an ED visit with increased pain since then. Please advise if patient can be worked in clinic 04/20/21. Evelyn Aburto RN, BSN, PHN documented in this encounter Plan of Treatment Not on filedocumented as of this encounter Visit Diagnoses Not on filedocumented in this encounter Care Teams Chassis Wirer Relationship Specialty Start Date End Date Josh Carrero PCP - General Family Medicine 08/09/[address] [address] Julian Spencer MD Orthopedics 03/08/20 MD [facility] [address] [address] Julian Spencer Assigned Musculoskeletal 05/27/20 MD [place] Provider [address] [facility] [address] [place], [place] [address] Eugenio Finney Assigned Pediatric 06/19/2005/07 MD David Specialist Provider [address] [place] [address] 96 [place], [place] [id number] Urbano Price Assigned PCP 11/13/20 MD Esteban [address] [place] [address]254 Joe Leo MD Physical Medicine and 04/11/21 MD Rehabilitation [address] [place] [address] 297 [place], [place] [address] Joe Leo, Assigned Neuroscience 04/30/21 MD Provider [address] [place] [address] 297 [place], [place] [address] Douglas Gonzalez MD Pediatrics 05/29/21 MD Julian [address] [place] [address] Douglas Gonzalez Assigned Pediatric 06/04/21 MD Julian Specialist Provider [address] [place] [address] documented as of this encounter
--- OUTSIDE RECORDS SUMMARY | 2022-06-18 11:55 | XMS_ITS | Encounter Summary ---
:2001 Author Organization [facility] Address [address] [place] [address] Care Team Providers Name Role Phone Julian Spencer MD Unavailable Julian Spencer MD Unavailable Eugenio Finney MD Unavailable [phone] Josh Carrero Primary Care Provider Urbano Price MD Unavailable Joe Leo MD Unavailable Joe Leo MD Unavailable Encounter Details Date Type Department Care Team Description 05/15/2021 Travel Social History Tobacco Use Types Packs/Day [...] filedocumented in this encounter Care Teams Engineer Sergeant Relationship Specialty Start Date End Date Josh Carrero PCP - General Family Medicine 08/09/[address] [address] Julian Spencer MD Orthopedics 03/08/20 MD Darell [address] [phone] Julian Spencer Assigned Musculoskeletal 05/27/20 MD Darell Provider [address] [place], [place] [phone] Eugenio Finney Assigned Pediatric 06/19/2005/07 MD David Specialist Provider [address] [place] [address] 96 [place], [place] [phone] Urbano Price Assigned PCP 11/13/20 MD Esteban 2450 [place], [place] [phone] Joe Leo MD Physical Medicine and 04/11/21 MD Rehabilitation 420 [facility] 297 [place], [place] [phone] Joe Leo, Assigned Neuroscience 04/30/21 MD Provider [address] [id number] documented as of this encounter
--- OUTSIDE RECORDS SUMMARY | 2022-06-18 11:55 | XMS_ITS | Encounter Summary ---
:2001 Author Organization [facility] Address [address] [place] [address]. [place] [address] Care Team Providers Name Role Phone Julian Spencer MD Unavailable Julian Spencer MD Unavailable Eugenio Finney MD Unavailable [phone] Josh Carrero Primary Care Provider Urbano Price MD Unavailable Joe Leo MD Unavailable Joe eLo MD Unavailable Reason for Visit Reason Onset Date Comments Refill Request 05/03/2021 Encounter Details Date Type Department Care Team Description 05/03/2021 Telephone Pediatric Endocrinol Urbano Agosto, Refill Request [facility] [address] [place] [address] [address] [address] [place], [place] [phone] (Wo rk) [address] [phone] Social History Tobacco Use Types Packs/Day Years [...] this encounter Miscellaneous Notes Telephone Encounter - Sara Cruz - 05/03/2021 3:31 PM CDT Presription sent as requested. Then resent to [facility] today at mother's request. Catalina Tay RN, MS [facility] Phone Message May a detailed message be left on voicemail: yes Reason for Call: Other: needs a new rx sent over for teriparatide, recombinant, (FORTEO) 600 MCG/2.4ML SOPN injection to [facility] fax [phone] Action Taken: Other: ped endo Travel Screening: Not Applicable documented in this encounter Plan of Treatment Not on filedocumented as of this encounter Visit Diagnoses Not on filedocumented in this encounter Care Teams Carding Machine Operator Relationship Specialty Start Date End Date oJsh Carrero PCP - General Family Medicine 08/09/20 [place] [address] Julian Spencer MD Orthopedics 03/08/20 MD Darell [facility] [place] [address] Julian Spencer Assigned Musculoskeletal 05/27/20 MD Darell Provider [address] [place], [place] [phone] Eugenio Finney Assigned Pediatric 06/19/2005/07 MD David Specialist Provider [address] [place] [address] [facility] 96 [place], [place] [address] Urbano Price Assigned PCP 11/13/20 MD Esteban [facility] [place], [place] [phone] Joe Leo MD Physical Medicine and 04/11/[address] [place] [address] Joe Leo Assigned Neuroscience 04/30/21 MD Provider [address] [place] [address] documented as of this encounter
--- OUTSIDE RECORDS SUMMARY | 2022-06-18 11:55 | XMS_ITS | Encounter Summary ---
:2001 Author Organization [facility] Address [address] [place] [address]. [place] [address] Care Team Providers Name Role Phone Julian Spencer MD Unavailable Julian Spencer MD Unavailable Eugenio Finney MD Unavailable [phone] Josh Carrero Primary Care Provider Urbano Price MD Unavailable Joe Leo MD Unavailable Encounter Details Date Type Department Care Team Description 04/24/2021 Orders Only Pediatric Urbaon Price Localized os teoporosis without current pathological fracture (Primary Dx); Endocrinology MD Esteban Pseudarthrosis following spinal fusion [facility] [address] [place] [address] [phone] Social History Tobacco Use Types Packs/Day Years [...] on filedocumented as of this encounter Results Calcium random urine with Creat Ratio (05/15/2021 [...] Phon e Number [facility] [place] [address] [facility]0 [place] [facility] [address] [place] [phone] [[email or web address]] C-Telopeptide, Ocjk-Hjkvw-Jbbchg (05/15/2021 9:11 AM CDT) athologist Signature C-Telopept 398 24 - 640 05/17/2021 [facility] B-X-Linked pg/mL 4:26 PM CDT Comment: REFERENCE INTERVAL: C-Telopeptide, Beta- Cross-Linked, Serum Access complete set of age- and/or gende r-specific reference intervals for this test in the [facility] Test Directory ([employer]). Specimen Anatomical Collection Method / Collection Time Recei donal Time (Source) Location / Volume Laterality Blood BLOOD SPECIMEN / Venipuncture / 05/15/2021 9:11 2020 9:25 Unknown Unknown AM CDT AM CDT Narrative [facility] - 05/17/2021 4:26 PM CDT Postmenopausal Females: 104-1008 pg/mL Performed By: [employer] [address] [place] [address] Asbestos Removal Worker: Brandi Dooley MD Urbano Price MD LAB - BLOOD ORDERABLES Performing Organization Address City/State/ZIP Code Phon e Number [email or web address] [employer] [place], [place] [phone] 500 [facility] [phone] Comprehensive metabolic panel (05/15/2021 9:11 AM CDT) P athologist Signature Sodium 138 133 - 144 05/15/2021 UR [...] Organization Address City/State/ZIP Code Phon e Number [facility] [place] [address] [address] [place] [facility]0 [place], [place] [phone] [[email or web address]] Bone specific alk phosphatase (05/15/2021 9:11 AM [...] Unknown Unknown AM CDT AM CDT Narrative [facility] - 05/16/2021 3:39 PM CDT INTERPRETIVE INFORMATION: Bone Specific Alkaline Phosphatase ??Premenopausal Female: ?4.5 - 16.9 ug/L ??Postmenopausal Female: ?? 7.0 - 22.4 ug/L Performed By: [employer] [address] [place] [address] Asbestos Removal Worker: Brandi Dooley MD Urbano Price MD LAB - BLOOD ORDERABLES Performing Organization Address City/[facility] Phon e Number [employer] [place], [place] [phone] 500 [facility] [address] Osteocalcin (05/15/2021 9:11 AM CDT) athologist Signature Osteocalcin by 27 11 - 50 05/17/2021 [employer] ng/mL 4:26 PM CDT Comment: INTERPRETIVE INFORMATION: Osteocalcin by ECIA In patients with renal failure the osteo calcin result can be elevated, both directly, due to impai red clearance and indirectly, due to renal osteodystrophy. Access complete set of age- and/or gende r-specific reference intervals for this test in the [facility] Test Directory ([employer]). Specimen Anatomical Collection Method / Collection Time Recei donal Time (Source) Location / Volume Laterality Blood BLOOD SPECIMEN / Venipuncture / 05/15/2021 9:11 2020 9:25 Unknown Unknown AM CDT AM CDT Narrative [facility] - 05/17/2021 4:26 PM CDT Performed By: [employer] [address] [place] [id number] Asbestos Removal Worker: Brandi Dooley MD Urbano Price MD LAB - BLOOD ORDERABLES Performing Organization Address City/[facility] Phon e Number [employer] [place], [place] [phone] 500 [facility] [phone] Parathyroid Hormone Intact (05/15/2021 9:11 AM CDT) [...] Organization Address City/State/ZIP Code Phon [place] [address] Lab 500 [facility], Room 3-[address] [place] [address], Lab [place] 500 [facility], Room 3580 1,25 Dihydroxyvitamin D (05/15/2021 9:11 AM CDT) Patholo gist Method Time Signature 25 42.4 19.9 - 05/17/2021 [facility] DINOSAUR Dihydroxyvitamin D 79.3 3:31 PM CDT SPECIALTY pg/mL CORE Specimen Anatomical Collection Method / Collection Time Recei donal Time (Source) Location / Volume Laterality Blood BLOOD SPECIMEN / Venipuncture / 05/15/2021 9:11 2020 9:25 Unknown Unknown AM CDT AM CDT Urbano Price MD LAB - BLOOD ORDERABLES Performing Organization Address City/[facility] Phon [place] [phone] CORE/PROT/ENDO Core/Prot/Endo 500 [facility], Room 3-580 [facility] SPECIALTY CORE [facility] [place] Lab [address], [facility] 420 [facility], Room L271-5 Vitamin D2 + D3, 25 Hydroxy (05/15/2021 9:11 AM CDT) P athologist Signature 25 OH Vitamin <5 ug/L 05/16/2021 [facility] DIN[facility] D2 3:18 PM CDT SPECIAL CHEM 25 OH Vitamin 38 ug/L 05/16/2021 [facility] D3 3:18 PM CDT SPECIAL CHEM 25 [place] Vit D <43 20 - 75 05/16/2021 [facility] Total ug/L 3:18 PM CDT SPECIAL CHEM Comment: Season, race, dietary intake, a nd treatment affect the concentration of 69-ovaybat-Prgwnsz D. Values may decreas e during winter [...] Unknown AM CDT AM CDT Narrative [facility] CHEM - 05/16/2021 3:18 P M CDT This test was developed and its performa nce characteristics determined by the [facility], ??Special Chemistry [...] Phon e Number SPECIAL DRUG/BGEN Special Drug/[place] [address] 500 [facility] J Building, Room 3-580 [facility] [place] [address], CHEMISTRY [place] [address] [place] [address], Room L223 documented in this encounter Visit Diagnoses Diagnosis Localized osteoporosis without current p athological fracture - Primary Pseudarthrosis following spinal fusion Arthrodesis status documented in this encounter Care Teams Reconcilement Clerk Relationship Specialty Start Date End Date Josh Carrero PCP - General Family Medicine 08/09/[address] [address] Julian Spencer MD Orthopedics 03/08/20 MD Darell [address] [place] [address] Julian Spencer Assigned Musculoskeletal 05/27/20 MD Darell Provider [address] [place] [address] Eugenio Finney Assigned Pediatric 06/19/2005/07 MD David Specialist Provider 420 [facility] SE [facility] 96 [place] [address] Urbano Price Assigned PCP 11/13/20 MD Esteban 2450 [place] [address] Joe Leo MD Physical Medicine and 04/11/[address] [place] [address] 297 [place] [address] documented as of this encounter
--- OUTSIDE RECORDS SUMMARY | 2022-06-18 11:55 | XMS_ITS | Encounter Summary ---
:2001 Author Organization [facility] Address [address] [place] [address] Care Team Providers Name Role Phone Julian Spencer MD Unavailable Julian Spencer MD Unavailable Eugenio Finney MD Unavailable [phone] Josh Carrero Primary Care Provider Urbano Price MD Unavailable Joe Leo MD Unavailable Encounter Details Date Type Department Care Team Description 04/14/2021 Travel Social History Tobacco Use Types Packs/Day [...] on filedocumented in this encounter Care Teams Nail Technician Teacher Relationship Specialty Start Date End Date Josh Carrero PCP - General Family Medicine 08/09/[address] [address] Julian Spencer MD Orthopedics 03/08/20 MD Darell [address] [place] [address] Julian Spencer Assigned Musculoskeletal 05/27/20 MD Darell Provider [address] [place] [address] Eugenio Finney Assigned Pediatric 06/19/2005/07 MD David Specialist Provider 420 [facility] 96 [place] [address] Urbano Price Assigned PCP 11/13/20 MD Esteban 2450 [place] [address] Joe Leo MD Physical Medicine and 04/11/21 MD Rehabilitation 420 [facility] 297 [place] [address] documented as of this encounter
--- OUTSIDE RECORDS SUMMARY | 2022-06-18 11:55 | XMS_ITS | Encounter Summary ---
:2000 Author Organization [facility] Address [address] [place] [id number] Care Team Providers Name Role Phone Jluian Spencer MD Unavailable Julian Spencer MD Unavailable Eugenio Finney MD Unavailable [phone] Josh Carrero Primary Care Provider Urbano Price MD Unavailable Joe Leo MD Unavailable Reason for Referral Medication Prior Authorization - Closed Specialty Diagnoses / Procedures Referred By Contact Refer red To Contact Diagnoses Tethered cord (H) Chronic pain syndrome S/P spinal fusion Joe Leo MD [address] [address] 8 Referral ID Status Reason Start Date Expiration Date Visits Requ ested Visits Authorized [id number] Closed 1 1 Reason for Visit Reason Comments Consult [facility] New Encounter Details Date Type Department Care Team Description 04/20/2021 Office Visit [facility] Joe Leo Tether ed cord (H) (Primary Dx); Physical Medicine and MD Chronic pain syndrome; Rehabilitation Clinic 420 [facility] S/P spinal fusion [facility] [address] Floor [address] [phone] (Work) [phone] Social History Tobacco Use Types Packs/Day Years [...] Sign Reading Time Taken Comments Blood Pressure 109/69 04/20/2021 11:02 AM CDT Pulse 97 04/20/2021 11:02 AM CDT Temperature - - Respiratory Rate 18 04/20/2021 11:02 AM CDT Oxygen Saturation 97% 04/20/2021 11:02 AM CDT Inhaled Oxygen Concentration - - Weight 55.8 kg (123 lb) 04/20/2021 11:02 AM CDT Height 162.6 cm (5' 4) 04/20/2021 11:02 AM CDT Body Mass Index 21.11 04/20/2021 11:02 AM CDT documented in this encounter Patient Instructions Patient InstructionsJoe Leo MD - 04/20/2021 11:00 AM CDT 1. Baclofen - Start 5mg daily x3 days, then 5mg twice daily, then 5mg three times daily every 3-5 days. Continue to increase up to 10mg three times daily in a similar day manner. If this does not work or is too sedating, we can try a different type of muscle relaxer. 2. Check with you miller head assistant wet process about the use of Celebrex and platelets 3. We will apply for Botox for your quadratus lumborum muscle and schedule 4. Check with your psychologist regarding a possible trial of Cymbalta for pain in addition to treating anxiety. documented in this encounter Progress Notes Joe Leo MD - 04/20/2021 11:00 AM CDT Patient seen at the request of Dr. Julian Spencer for an opinion and evaluation of pain and quadratus lumborum muscle block. HISTORY OF PRESENT ILLNESS: Dakota Casiano is a 20 year old female who presents with a chief complaintof muscle spasms. Patient has a complicated history of multiple spine surgeries dating back to 2015. Per orthopedic spine surgery notes: has a h/o tethered cord release by Dr. Hammond (2014), then spinal fusion 01/24/[address] Cobos, crosslink removal for pain 07/2016 , removal right T8 hook 2018, revision of posterior spinal fusion T3-L4 02/[address] Cobos, removal of Crosslink by Dr. Muro at [place]. Dr. Spencer attempted hardare removal and found pseudoarthrosis and she is s/p revision surgery 08/09/2020. She was seen by in November 2020 and referred to PT for focused QL program and again seen by orthopedic spine surgery earlier this month and referred to our [facility] for quadratus lumborum muscle inject ions/blocks. She was initially scheduled for new patient visit in June 2021, but had an acute exacerbation and seen at [facility] ED Apr 18, 2021 and asked to be seen more urgently. She is accompanied today by her mother. She has seen and worked with multiple specialists only surgically, but also several pain specialist at [facility]. Despite this, she has ongoing pain issuesprimarily located to the right lumbar spine. She has worked with physical therapy without significant improvement in her pain. She endorses lumbosacral radicular pain and paraesthesias, the latter being more intermittent; however, her primary pain issues today are localized to the right lumbar paraspinal muscles with significant associated spasming. Pain is described as constant dull and throbbing and intermittently sharp. Pain score 9/10 today at rest, 10/10 at its worst in the last week and 8/10 at its best. Symptoms are worse with sitting, walking, exercise, coughing/sneezing and improved when lying down. She does report pain-related sleep disturbance. In addition to presenting to the ED earlier this week, she has also had to miss 1 week of school. 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 PRIOR INJURIES/TREATMENT: Ice/Heat - limited benefit Physical Therapy: Completed PT following surgery in Aug and more recent PT for QL without significant relief. - Current Pain Medications - NSAIDs - celecoxib Flexeril 5-10mg BID - some relief but makes her tired. - Prior/Trialed Pain Medications - AED - Gabapentin, Lyrica - Lyrica helped post-operatively Opioids - T#3, hydrocodone, Morphine, oxycodone NSAIDs - limited due to platelet dysfunction Prior Related Surgery: h/o tethered cord release by Dr. Hammond (2014), then spinal fusion 01/24/[address] Cobos, crosslink removal for pain 07/2016 , removal right T8 hook 2018, revision of posterior spinal fusion T3-L4 02/2019 byDr. Cobos, removal of Crosslink by Dr. Muro at [place]. Dr. Spencer attempted hardare removal and found pseudoarthrosis and she is s/p revision surgery 08/09/2020. Other (acupuncture, OMT, CMM, TENS, DME, etc.): Specialists Seen - (with most recent, available notes and clinic visits reviewed) 1. Orthopedic spine surgery-Dr. Julian Spencer, Reta Escalante PA-C 2. Hematology - Dr. Atwood 3. Pain Clinic Dr. Gonzalez IMAGING - reviewed 04/11/21 XR Spine Complete Findings: ?? 12 rib bearing vertebral bodies and 6 lumbar type vertebral bodies are identified with transitional lumbosacral anatomy with lumbarization of S1 body ?? Postoperative changes of posterior spinal fusion from T4-L4. No evidence of hardware failure. No substantial spinal spondylosis. ?? Coronal Deformity: ?? There is a a mild convexed left curvature of thoracic spine with apex at T4 and a mild convexed right curvature of thoracolumbar/lumbar spine with apex at L2/L3. ?? No substantial global coronal imbalance. ?? Sagittal Vertical [place] (A vertical line drawn from the center of C7 (carl line) to the posterosuperior aspect of the S1 on sagittal plane): less than 4 cm ?? Weight bearing axis: (Defined as a line drawn from the center of the femoral head to the mid aspect of the tibial plafond). ?? Right: Weight bearing axis crosses central 1/3 of medial tibial plateau. Left: Weight bearing axis crosses through the medial tibial spine. ?? Leg length: (Measured from the top of the femoral head to the center of tibial plafond. It is assumed joints are in similar degrees of extension bilaterally. Significant difference is defined when discrepancy is greater than 1.5 cm). ?? No significant leg length discrepancy. ?? Additional Findings: ?? Lungs are clear. Cardiac silhouette is normal. The pattern is nonobstructive. No acute osseous abnormality. ?? Impression: 1. Postoperative changes of spinal fusion from T4-L4. No evidence of hardware failure 2. Mild left convexed curvature of the main thoracic spine and mild right convexed curvature of the thoracolumbar/lumbar spine. 3. No global coronal or sagittal imbalance. 4. Weight bearing axis as detailed above. ?? Review Of Systems: I am responding to those symptoms which are directly relevant to the specific indication for my consultation. I recommend that the patient follow up with their primary or referring provider to pursue any other symptoms which may be of concern. Medical History: She has a past medical history of PONV (postoperative nausea and vomiting) and Scoliosis. PTSD. She has a past surgical history that includes Explore spine, remove hardware, combined (N/A, 08/09/2020) and Optical tracking system fusion spine posterior thoracic child three+ levels (08/09/2020). Family History Her family history is not on file. 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 Commutes to school 45min She reports that she has never smoked. She has never used smokeless tobacco. She reports previous alcohol use. She reports previous drug use. Current Medications: She has a current medication list which includes the following prescription(s): acetaminophen, celecoxib, cholecalciferol, cyclobenzaprine, diazepam, lidocaine, naloxone, norethindrone acet-ethinyl est, sertraline, forteo, tranexamic acid, tranexamic acid, and [DISCONTINUED] valacyclovir. Allergies: -- Dust Mites -- Itching -- Other reaction(s): Itching,Watering Eyes -- Hydromorphone -- Other (See Comments) -- All forms (enteral and IV) cause confusion, delirium, aggression. Avoid. PHYSICAL EXAMINATION: BP 109/69 Pulse 97 Resp 18 Ht 1.626 m (5' 4) Wt 55.8 kg (123 lb) SpO2 97% BMI 21.11 kg/m?? General: Pleasant, straightforward, WDWN individual. Mental Status: Pleasant, direct, appropriate mood and affect Resp: breathing is unlabored without audible wheeze Vascular: Palpable pedal pulses, no cyanosis, no venous stasis changes Heme: no visible ecchymosis or erythema on extremities Skin: No notable rash. Healed longitudinal midline spinal surgical scar Neurologic: Strength: All major muscle groups of the bilateral lower extremities have normal and symmetric muscle strength EXCEPT hip abd 4+/5 Sensation: SILT in lower extremities bilaterally L3-S1 DTRs: bilateral lower extremity stretch reflexes are equal and symmetric Musculoskeletal: She has gross coronal imbalance due to scoliotic cuvature with asymmetric shoulder girdle. She has at least moderately reduced lumber flexion limited by fusion surgery but mild-mod reduced extension. She is quite tender over her lumbar paraspinal muscles much more so over her quadratus lumborum than erector muscles and more pronounced on the right compared to the left. Cervical Dystonia - Patient has a history of recurrent involuntary contraction of one or more muscles in the neck; AND Patient has sustained head tilt; OR Patient has abnormal posturing with limited range of motion in the neck ASSESSMENT: Dakota Casiano is a pleasant 20 year old female who presents with: #. 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 Tethered cord (H) #. S/P spinal fusion #. Chronic pain syndrome Complicating co-morbidities include: #. 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 PTSD - follows with psychologists. PLAN: - Given her platelet disorder and need for platelet transfusion prior to procedures, I feel that QL muscle block/trigger point would be of limited value at this point. I would prefer to proceed with botulinum toxin-A (Botox) injection of the quadratus lumborum with sonograhpic guidance. I have discussed this with his orthopedic surgeon today as well who is in agreement. We will apply for prior-authorization and can coordinate platelet transfusion with her miller head assistant wet process prior to any injection therapies - Rx: baclofen 5mg daily up to 10mg TID as discussed. Stop Flexeril. We could consider robaxin in the future if baclofen is too sedating as robaxin may have less sedating/centrally acting effect - Tramadol 50mg prn for severe pain only #10 R-0. We reviewed the risks of serotonin syndrome and interactions with other medications including selective serotonin reuptake inhibitors. State they have taken tramadol previously which was helpful and tolerated well - They had questions regarding NSAID use and celecoxib in the setting of her platelet dysfunction and I would defer this to her treating miller head assistant wet process. - We will determine follow up once we determine the Botox PA status. Ready to learn, no apparent learning barriers. Education provided on treatment plan according to patient's preferred learning style. Patient verbalizes understanding. Joe Leo MD Physical Medicine & Rehabilitation 75 minutes spent on the date of the encounter doing chart review, review of test results, patient visit, documentation, discussion with other provider(s) and discussion with family documented in this encounter Nursing Notes Maurilio Castaneda - 04/20/2021 11:00 AM CDT Chief Complaint Patient presents with ??? 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 Chronic pain syndrome S/P spinal fusion Arthrodesis status documented in this encounter Care Teams Splash Line Operator Relationship Specialty Start Date End Date Josh Carrero PCP - General Family Medicine 08/09/[address] [address] Julian Spencer MD Orthopedics 03/08/20 MD [place] [address] [place] [address] [id number] Julian Spencer Assigned Musculoskeletal 05/27/20 MD [place] Provider [address] [place] [address] [id number] Eugenio Finney Assigned Pediatric 06/19/2005/07 MD David Specialist Provider 420 [facility] [address] [place] [address] Urbano Price Assigned PCP 11/13/20 MD Esteban [facility] [place] [address] Joe Leo MD Physical Medicine and 04/11/21 MD Rehabilitation 420 [facility] [address] [place] [address] documented as of this encounter
--- OUTSIDE RECORDS SUMMARY | 2022-06-18 11:55 | XMS_ITS | Encounter Summary ---
:2001 Author Organization [place] Address [facility] [place] [address] Care Team Providers Name Role Phone Julian Spencer MD Unavailable Julian Spencer MD Unavailable Eugenio Finney MD Unavailable [phone] Josh Carrero Primary Care Provider Urbano Price MD Unavailable Joe Leo MD Unavailable Reason for Visit Reason Comments Headache Encounter Details Date Type Department Care Team Description 04/18/[address] [facility] Twin Galvez MD Other chronic back [facility] Emergency [address] pain Department [address] [address] [place] [address] [phone] Social History Tobacco Use Types Packs/Day Years [...] Sign Reading Time Taken Comments Blood Pressure 112/69 04/18/2021 5:38 PM CDT Pulse 88 04/18/2021 9:01 PM CDT Temperature 37 ??C (98.6 ??F) 04/18/2021 9:01 PM CDT Respiratory Rate 18 04/18/2021 9:01 PM CDT Oxygen Saturation 99% 04/18/2021 9:01 PM CDT Inhaled Oxygen Concentration - - Weight 56.2 kg (123 lb 14.4 oz) 04/18/2021 5:36 PM CDT Height - - Body Mass Index 20.82 12/01/2020 1:36 PM CDT documented in this encounter Discharge Instructions Discharge InstructionsRuby Vera MD - 04/18/2021 8:47 PM CDT Emergency Department Discharge Information for Dakota Duncan was seen in the [facility] Department today for back pain and headache by Dr. Vera and Dr. Galvez. We think her condition is caused by a back spasm causing worsening pain. We recommend that you follow up with orthopedics. We will send you home with diazepam 2.5 mg that you can take up to twice a day as needed For fever or pain, Dakota can have: Acetaminophen (Tylenol) every 4 to 6 hours as needed (up to 5 doses in 24 hours). Her dose is: 2 regular strength tabs (650 mg) (43.2+ kg/96+ lb) Or Ibuprofen (Advil, Motrin) every 6 hours as needed. Her dose is: 2 regular strength tabs (400 mg) (40-60 kg/88-132 lb) If necessary, it is safe to give both Tylenol and ibuprofen, as long as you are careful not to give Tylenol more than every 4 hours or ibuprofen more than every 6 hours. These doses are based on your child???s weight. If you have a prescription for these medicines, the dose may be a little different. Either dose is safe. If you have questions, ask a doctor or pharmacist. Please return to the ED or contact her regular clinic if: she becomes much more ill she can't keep down liquids she gets a fever over 101.5 she gets a stiff neck or you have any other concerns. Please make an appointment to follow up with orthopedics at least by phone by the end of the week. documented in this encounter Medications at Time of Discharge Medication Sig Dispensed Refills Start Date End Date acetaminophen (TYLENOL) Take 1000 mg every 0 08/05 500 MG six hours for 2 days tabletIndications: Acute after discharge, post-operative pain then as needed (every six hours) after that. cholecalciferol (VITAMIN Take by mouth daily 0 D3) 125 mcg (5000 units) capsule fluticasone (FLONASE) 50 INHALE ONE TO TWO 0 02/03 MCG/ACT nasal spray SPRAYS INTO BOTH NOSTRILS ONCE DAILY hydrOXYzine (ATARAX) 10 TAKE ONE TABLET BY 0 06/06 MG tablet MOUTH EVERY 8 HOURS NEEDED FOR ANXIETY hydrOXYzine (ATARAX) 25 TAKE ONE TABLET BY 0 10/03 MG tablet MOUTH EVERY DAY NEEDED hydrOXYzine (ATARAX) 50 TAKE ONE TABLET BY 0 /11/2020 MG tablet MOUTH EVERY DAY NEEDED Lidocaine (LIDOCARE) 4 % Place 1-2 patches on 30 patch 3 0 08/15/2020 PatchIndications: Acute skin over painful post-operative pain, area. Leave on for Chronic musculoskeletal 12 hours, then keep pain off for 12 hours. Repeat daily. naloxone (NARCAN) 4 [place] 1 spray (4 mg) 0.2 mL 0 2020 MG/0.1ML nasal into one nostril sprayIndications: Acute alternating nostrils post-operative pain as needed for opioid reversal every 2-3 minutes until assistance arrives Norethindrone Take by mouth daily 0 Acet-Ethinyl Est (LOESTRIN 08/24, 21, PO) teriparatide, Inject 0.08 mLs (20 2.4 mL 5 11/06/2020 recombinant, (FORTEO) mcg) Subcutaneous 600 MCG/2.4ML SOPN daily injectionIndications: Localized osteoporosis without current pathological fracture, Pseudarthrosis following spinal fusion tranexamic acid Take 1 tablet (650 20 tablet 3 12/08/2020 (LYSTEDA) 650 MG mg) by mouth 3 times tabletIndications: At daily as needed (for risk for hemorrhage bleeding control. associated with surgery May increase to 2 tablets for significant bleeding.) May use for up to 3-5 days. tranexamic acid Take 1.5 tablets 15 tablet 0 08/16/2020 (LYSTEDA) 650 MG every six hours as tabletIndications: needed for Platelet disorder (H) persistent bleeding. traZODone (DESYREL) 50 Take 50 mg by mouth 0 09/05 MG tablet nightly as needed celecoxib (CELEBREX) 100 Take 1 capsule (100 60 capsule 0 08/23/2021 MG capsuleIndications: mg) by mouth 2 times Acute post-operative daily pain, Inflammation of operative incision cyclobenzaprine Take 1 tablet (10 30 tablet 0 04/11/2021 (FLEXERIL) 10 MG mg) by mouth nightly tabletIndications: as needed for muscle Chronic bilateral low spasms back pain without sciatica cyclobenzaprine TAKE ONE TABLET BY 0 01/15/2021 1 (FLEXERIL) 5 MG tablet MOUTH THREE TIMES A DAY NEEDED diazepam (VALIUM) 2 MG Take 1 tablet (2 mg) 20 tablet 0 06/02/2021 tablet by mouth every 12 hours as needed for muscle spasms or pain sertraline (ZOLOFT) 100 Take 100 mg by mouth 0 06/02/2021 MG tablet daily documented as of this encounter ED Notes Laurence Rasheed RN - 04/18/2021 5:43 PM CDT PT c/o severe frontal headache with nausea and photophobia. Pt has been using flexeril for back painand headache without relief. Pt's fashion patternmaker referred her here for further evaluation. Twin Galvez MD - 04/18/2021 5:29 PM CDT History Chief Complaint Patient presents with ??? Headache HPI History obtained from patient and mother Dakota is a 20 year old with chronic back pain and a history of tethered cord release, spinal fusion and revisions who presents at 5:39 PM with mother for evaluation of worsening back pain and headache.She notes she has chronic back pain, however the back pain has been getting worse recently, and became even more painful on Saturday. With that she developed headache, which she describes as frontal in nature. She saw Reta Escalante of orthopedics on 04/11 due to this worsening pain, and was prescribed Flexeril and celecoxib. She describes her current pain as worsening of her chronic pain. The pain is worse on the right than the left. SHe has no weakness, numbness or tingling. She noted some dizziness this morning. No vision changes or feer. She is voiding well and staying hydrated. She has been using flexeril, norco, aleve and tylenol without relief. PMHx: Past Medical History: Diagnosis Date ??? PONV (postoperative nausea and vomiting) ??? Scoliosis Past Surgical History: Procedure Laterality Date ??? [...] Surgeon: Julian Spencer MD; Location: [facility] OR These were reviewed with the patient/family. MEDICATIONS were reviewed and are as follows: Current Facility-Administered Medications Medication ??? lactated ringers BOLUS 1,000 mL ??? lidocaine (LMX4) cream ??? lidocaine 1 % 0.1-1 mL ??? lidocaine 1 % ??? sodium chloride (PF) 0.9% PF flush 3 mL ??? sodium chloride (PF) 0.9% PF flush 3 mL Current Outpatient Medications Medication ??? acetaminophen (TYLENOL) 500 MG tablet ??? celecoxib (CELEBREX) 100 MG capsule ??? cholecalciferol (VITAMIN D3) 125 mcg (5000 units) capsule ??? cyclobenzaprine (FLEXERIL) 10 MG tablet ??? Lidocaine (LIDOCARE) 4 % Patch ??? naloxone (NARCAN) 4 MG/0.1ML nasal spray ??? Norethindrone Acet-Ethinyl Est (LOESTRIN 08/24, , PO) ??? sertraline (ZOLOFT) 100 MG tablet ??? teriparatide, recombinant, (FORTEO) 600 MCG/2.4ML SOPN injection ??? tranexamic acid (LYSTEDA) 650 MG tablet ??? tranexamic acid (LYSTEDA) 650 MG tablet ALLERGIES: Dust mites and Hydromorphone IMMUNIZATIONS: UTD by report. Except for Covid, patient notes that she was told by one of her physicians to hold off on the vaccine for now SOCIAL HISTORY: Dakota lives with mother. She does attend college. I have reviewed the Medications, Allergies, Past Medical and Surgical History, and Social History inthe Experiment system. Review of Systems Please see HPI for pertinent positives and negatives. All other systems reviewed and found to be negative. Physical Exam BP: 112/69 Pulse: 104 Temp: 97.3 ??F (36.3 ??C) Resp: 20 Weight: 56.2 kg (123 lb 14.4 oz) SpO2: 99 % Physical Exam Appearance: Alert and appropriate, well developed, nontoxic, with moist mucous membranes. HEENT: Head: Normocephalic and atraumatic. Eyes: PERRL, EOM grossly intact, conjunctivae and scleraeclear. Nose: Nares clear with no active discharge. Mouth/Throat: No oral lesions, pharynx clear withno erythema or exudate. Neck: Supple, no masses, no meningismus. No significant cervical lymphadenopathy. Pulmonary: No grunting, flaring, retractions or stridor. Good air entry, clear to auscultation bilaterally, with no rales, rhonchi, or wheezing. Cardiovascular: Regular rate and rhythm, normal S1 and S2, with no murmurs. Normal symmetric peripheral pulses and brisk cap refill. Abdominal: Normal bowel sounds, soft, nontender, nondistended, with no masses and no hepatosplenomegaly. Neurologic: Alert and oriented, face symmetric, normal gait, good coordination, cranial nerves II-XII grossly intact, moving all extremities equally with grossly normal coordination and normal gait. Extremities/Back: fully healed surgical incision along entire spine, R sided tenderness worse than left. Other extremities are without deformity. Skin: No significant rashes, ecchymoses, or lacerations. Genitourinary: Deferred Rectal: Deferred ED Course Procedures Results for orders placed or performed during the hospital encounter of 04/18/21 (from the past 24 hour(s)) CBC with platelets differential Narrative The following orders were created for panel order CBC with platelets differential. Procedure Abnormality Status --------- ------ CBC with platelets and d...[[id number]] Final result Please view results for these tests on the individual orders. CBC with platelets and differential Result Value Ref Range WBC Count 5.8 4.0 - 11.0 10e3/uL RBC Count 4.19 3.80 - 5.20 10e6/uL Hemoglobin 12.2 11.7 - 15.7 g/dL Hematocrit 37.3 35.0 - 47.0 % MCV 89 78 - 100 fL MCH 29.1 26.5 - 33.0 pg MCHC 32.7 31.5 - 36.5 g/dL RDW 12.7 10.0 - 15.0 % Platelet Count 273 150 - 450 10e3/uL % Neutrophils 51 % % Lymphocytes 39 % % Monocytes 8 % % Eosinophils 2 % % Basophils 0 % % Immature Granulocytes 0 % NRBCs per 100 WBC 0 <1 /100 Absolute Neutrophils 3.0 1.6 - 8.3 10e3/uL Absolute Lymphocytes 2.3 0.8 - 5.3 10e3/uL Absolute Monocytes 0.5 0.0 - 1.3 10e3/uL Absolute Eosinophils 0.1 0.0 - 0.7 10e3/uL Absolute Basophils 0.0 0.0 - 0.2 10e3/uL Absolute Immature Granulocytes 0.0 <=0.0 10e3/uL Absolute NRBCs 0.0 10e3/uL Medications lactated ringers BOLUS 1,000 mL (1,000 mLs Intravenous New Bag 04/18/211906) lidocaine 1 % 0.1-1 mL (has no administration in time range) lidocaine (LMX4) cream (has no administration in time range) sodium chloride (PF) 0.9% PF flush 3 mL (3 mLs Intracatheter Given 04/18/211903) sodium chloride (PF) 0.9% PF flush 3 mL (has no administration in time range) lidocaine 1 % (has no administration in time range) ketorolac (TORADOL) injection 30 mg (30 mg Intravenous Given 04/18/211906) diazepam (VALIUM) injection 7.5 mg (7.5 mg Intravenous Given 04/18/211922) Old chart from [facility] reviewed, supported history as above. Labs reviewed and normal. Patient was attended to immediately upon arrival and assessed for immediate life-threatening conditions. History obtained from family. Critical care time: none Assessments & Plan (with Medical Decision Making) Dakota Casiano is a 20 year old who presents due to acute on chronic back pain. She has chronic back pain in the setting of her numerous orthopedic surgeries 2/2 tethered cord. On presentation she had normal vital for age and was overall appears uncomfortable, but otherwise well. The pain is worsening of her chronic pain, and a headache, which she tends to get when her pain is out of control. No clear factor that would cause worsening. No fever, weakness or neuro deficits. Case was discussed with ortho who recommends trial of diazepam. Given 7.5 mg x1 with improvement in pain. On re-exam she is well appearing and vitally stable. Will plan to discharge with PRN diazepam BID and ortho follow up. Return p recautions given. I have reviewed the nursing notes. I have reviewed the findings, diagnosis, plan and need for follow up with the patient. New Prescriptions No medications on file Final diagnoses: Other chronic back pain Patient seen and discussed with Dr. Leonor Vera MD Internal Medicine-Pediatrics PGY4 04/18/2021 [facility] EMERGENCY DEPARTMENT This data collected with the Resident working in the Emergency Department. Patient was seen and evaluated by myself and I repeated the history and physical exam with the patient. The plan of care was discussed with them. The ren portions of the note including the entire assessment and plan reflect my d ocumentation. Twin Martinez MD 04/19/21 8330 documented in this encounter Plan of Treatment Not on filedocumented as of this encounter Procedures Procedure Name Priority Date/Time Associated Comments Diagnosis CBC WITH PLATELETS STAT 04/18/2021 7:03 PM Res ults for this AND DIFFERENTIAL CDT procedure a re in the results section. CBC WITH PLATELETS & STAT 04/18/2021 7:03 PM R esults for this DIFFERENTIAL CDT procedure are i n the results section. documented in this encounter Results CBC with platelets and differential (04/18/2021 7:03 PM CDT) Analysis Performed At Patho logist Time Signature WBC Count 5.8 4.0 - 11.0 04/18/2021 [facility] 10e3/uL 7:28 PM CDT RBC Count 4.19 3.80 - 04/18/2021 [facility] 5.20 7:28 PM CDT 10e6/uL Hemoglobin 12.2 11.7 - 04/18/2021 [facility] 15.7 g/dL 7:28 PM CDT Hematocrit 37.3 35.0 - 04/18/2021 [facility] 47.0 % 7:28 PM CDT MCV 89 78 - 100 04/18/2021 [facility] fL 7:28 PM CDT MCH 29.1 26.5 - 04/18/2021 [facility] 33.0 pg 7:28 PM CDT MCHC 32.7 31.5 - 04/18/2021 [facility] 36.5 g/dL 7:28 PM CDT RDW 12.7 10.0 - 04/18/2021 [facility] 15.0 % 7:28 PM CDT Platelet Count 273 150 - 450 04/18/2021 [facility] 10e3/uL 7:28 PM CDT % Neutrophils 51 % 04/18/2021 [facility] 7:28 PM CDT % Lymphocytes 39 % 04/18/2021 [facility] 7:28 PM CDT % Monocytes 8 % 04/18/2021 [facility] 7:28 PM CDT % Eosinophils 2 % 04/18/2021 [facility] 7:28 PM CDT % Basophils 0 % 04/18/2021 [facility] 7:28 PM CDT % Immature 0 % 04/18/2021 [facility] Granulocytes 7:28 PM CDT NRBCs per 100 WBC 0 <1 /100 04/18/2021 [facility] RY 7:28 PM CDT Absolute 3.0 1.6 - 8.3 04/18/2021 [facility] Neutrophils 10e3/uL 7:28 PM CDT Absolute 2.3 0.8 - 5.3 04/18/2021 [facility] Lymphocytes 10e3/uL 7:28 PM CDT Absolute 0.5 0.0 - 1.3 04/18/2021 [facility] Monocytes 10e3/uL 7:28 PM CDT Absolute 0.1 0.0 - 0.7 04/18/2021 [facility] Eosinophils 10e3/uL 7:28 PM CDT Absolute 0.0 0.0 - 0.2 04/18/2021 [facility] Basophils 10e3/uL 7:28 PM CDT Absolute Immature 0.0 <=0.0 04/18/2021 [facility] Granulocytes 10e3/uL 7:28 PM CDT Absolute NRBCs 0.0 10e3/uL 04/18/2021 [facility] 7:28 PM CDT Specimen Anatomical Collection Method / Collection Time Recei donal Time (Source) Location / Volume Laterality Blood STRUCTURE OF LEFT Venipuncture / 04/18/2021 7:03 04/18 7:24 UPPER LIMB / Unknown PM CDT PM CDT Unknown Ruby Vera MD LAB - BLOOD ORDERABLES Performing Organization Address City/State/ZIP Code Phon [place] [address] Care Lab [address] [facility], Room M309 documented in this encounter Visit Diagnoses Diagnosis Other chronic back pain documented in this encounter Administered Medications Inactive Administered Medications - up to 3 most recent administrations Medication Order MAR Action Action Date Dose Rate Site diazepam (VALIUM) injection 7.5 mg Given 04/18/2021 7:23 PM CDT 7.5 mg 7.5 mg, Intravenous, Administer over 1-4 Minutes, ONCE, On Sat04/18/21 at 1920, For 1 dose, This drug may cause significant respiratory depression. Monitor respiratory status and vital signs carefully for 1 hour after each dose. ketorolac (TORADOL) injection 30 mg Given 04/18/2021 7:07 PM CDT 30 mg 30 mg, Intravenous, ONCE, On Sat04/18/21 at 1840, For 1 dose, Can cause pain on injection. If ordered intravenously (IV) : administer through a running maintenance fluid over 1 minute followed by a flush. If patient complains of pain on injection, may dilute 15-30 mg in 5 mL and push over 1 to 2 minutes. lactated ringers BOLUS 1,000 mL New Bag 04/18/2021 7:07 PM CDT 1,000 mLs 1000 mL/hr Intravenous, 1,000 mL, ONCE, at 1,000 mL/hr, Administer over 1 Hours, On Sat04/18/21 at 1840, For 1 dose lidocaine (LMX4) cream Topical, EVERY 1 HOUR PRN, pain, with VAD insertion, S tarting on Sat04/18/21 at 1847, Apply at least 30 minutes prior to VAD insertion in divided doses as needed for size of site for insertion. MAX Dose: 2.5 g (?? of 5 g tube) Do NOT give if patient has a history of allergy to any local anesthetic or any korey product. Do NOT use both lidocaine intradermal/subcu taneous injection and the lidocaine cream on the same site. lidocaine 1 % 0.1-1 mL 0.1-1 mL, Other, EVERY 1 HOUR PRN, mild pain with VAD insertion, Starting on Sat04/18/21 at 1847, MAX dose 1 mL subcutane ous OR intradermal along the side of the vein in divided doses as needed for VAD insertion. Do NOT give if patient has a history of allergy to any local anesthet ic or any korey product. Do NOT use both lidocaine intradermal/subcutaneous injec tion and the lidocaine cream on the same site. sodium chloride (PF) 0.9% PF flush 3 mL Given 04/18/2021 7:04 PM CDT 3 mLs 3 mL, Intracatheter, EVERY 8 HOURS, First dose on Sat04/18/21 at 1850, to lock peripheral IV dormant line sodium chloride (PF) 0.9% PF flush 3 mL 3 mL, Intracatheter, EVERY 1 MIN PRN, li ne flush, other, to ensure patency or to lock dormant line, Starting on Sat04/18/21 at 1847 documented in this encounter Active and Recently Administered Medications Times are shown in CDT. Scheduled Medication Order 04/16/2021 04/17/2021 04/18/2021 diazepam (VALIUM) injection 7.5 mg (COMPLETED) 1922 (Given - Provider: Donnie Stern RN) 7.5 mg, Intravenous, Administer over 1-4 Minutes, ONCE, On Sat04/18/21 at 1920, For 1 dose, This drug may cause significant respiratory depression. Monitor respiratory status and vital signs carefully for 1 hour after each dose. ketorolac (TORADOL) injection 30 mg (COMPLETED) 1906 (Given - Provider: Donnie Stern, RUTH) 30 mg, Intravenous, ONCE, On Sat04/18/21 at 1840, For 1 dose, Can cause pain on injection. If ordered intravenously (IV) : administer through a running maintenance fluid over 1 minute followed by a flus h. If patient complains of pain on injec tion, may dilute 15-30 mg in 5 mL and push over 1 to 2 minutes. lactated ringers BOLUS 1,000 mL (COMPLETED) 1906 (New Bag - Provider: Donnie Stern, RUTH)2029 (Stopped - Provider: Nettie Cox RN) Intravenous, 1,000 mL, ONCE, at 1,000 mL /hr, Administer over 1 Hours, On Sat04/18/21 at 1840, For 1 dose sodium chloride (PF) 0.9% PF flush 3 mL 1903 (Given - Provider: Donnie Stern, RUTH) 3 mL, Intracatheter, EVERY 8 HOURS, Firs t dose on Sat04/18/21 at 1850, to lock peripheral IV dormant line PRN Medication Order 04/16/2021 04/17/2021 04/18/2021 lidocaine (LMX4) cream Topical, EVERY 1 HOUR PRN, pain, with VA D insertion, Starting on Sat04/18/21 at 1847, Apply at least 30 minutes prior to VAD insertion in divided doses as needed for size of site for insertion. MAX Dose : 2.5 g (?? of 5 g tube) Do NOT give if patient has a history of allergy to any local anesthetic or any korey product. Do NOT use both lidocaine intradermal/subcutaneous injection and the lidocaine cream on the same site. lidocaine 1 % 0.1-1 mL 0.1-1 mL, Other, EVERY 1 HOUR PRN, mild pain with VAD insertion, Starting on Sat04/18/21 at 1847, MAX dose 1 mL subcutaneous OR intradermal along the side of the vein in divided doses as needed for VAD insertion. Do NOT give if patient has a history of allergy to any local anesthetic or any korey product. Do NOT use both lidocaine intradermal/subcutaneous injection and the lidocaine cream on the same site. sodium chloride (PF) 0.9% PF flush 3 mL 3 mL, Intracatheter, EVERY 1 MIN PRN, li ne flush, other, to ensure patency or to lock dormant line, Starting on Sat04/18/21 at 1847 documented in this encounter Care Teams Mems Engineer Relationship Specialty Start Date End Date Josh Carrero PCP - General Family Medicine 08/09/[address] [phone] Julian Spencer MD Orthopedics 03/08/20 MD Darell [facility] [place] [address] [phone] Julian Spencer Assigned Musculoskeletal 05/27/20 MD Darell Provider [facility] [address] [phone] Eugenio Finney Assigned Pediatric 06/19/2005/07 MD David Specialist Provider [address] [facility] [address] [place] [address] Urbano Price Assigned PCP 11/13/20 MD [facility] [address] [facility] [address] [place] [place] [phone] Joe Leo MD Physical Medicine and 04/11/21 MD Rehabilitation [address] [facility] [address] [place] [address] documented as of this encounter
--- OUTSIDE RECORDS SUMMARY | 2022-06-18 11:56 | XMS_ITS | Encounter Summary ---
:2001 Author Organization [place] Address [address] [place] [address]. [place] [address] Care Team Providers Name Role Phone Julian Spencer MD Unavailable Julian Spencer MD Unavailable Eugenio Finney MD Unavailable [phone] Josh Carrero Primary Care Provider Urbano Price MD Unavailable Encounter Details Date Type Department Care Team Description 12/08/2020 Orders Only [facility] At risk fo r Services - Christian Sheffield MD hemorrhage associated Specialties Service [address] [place] [address] surgery (Primary Line S Dx) [address] [place] [id number] [phone] Social History Tobacco Use Types Packs/Day Years Used Date Smoking Tobacco: Never Smokeless Tobacco: Never Alcohol Use Standard Drinks/Week Comments Not Currently 0 (1 standard drink = 0.6 oz pure alcoho l) Sex Assigned at Date Recorded Female 12/02/2020 1:42 PM CDT COVID-19 Exposure Response Date Recorded In the last month, have you been in contact with No / Unsure 12/06/2020 1:00 PM CDT someone who was confirmed or suspected to have Coronavirus / COVID-19? documented as of this encounter Plan of Treatment Not on filedocumented as of this encounter Visit Diagnoses Diagnosis At risk for hemorrhage associated with s urgery - Primary documented in this encounter Care Teams Diamond Die Maker Relationship Specialty Start Date End Date Josh Carrero PCP - General Family Medicine 08/09/[address] [address] Julain Spencer MD MD Orthopedics 03/08/[address] [place], [place] [phone] Julian Spencer MD Assigned Musculoskeletal 05/27/[address] [place] [address] Eugenio Finney Assigned Pediatric 06/19/2005/07 MD David Specialist Provider [address] [facility] [address] [place], [place] [phone] Urbano Price, Assigned PCP 11/13/20 [address] [place] [address] documented as of this encounter
--- OUTSIDE RECORDS SUMMARY | 2022-06-18 11:56 | XMS_ITS | Encounter Summary ---
:2001 Author Organization [place] Address [address] [place] [address] Care Team Providers Name Role Phone Julian Spencer MD Unavailable Julian Spencer MD Unavailable Eugenio Finney MD Unavailable [phone] Josh Carrero Primary Care Provider Urbano Price MD Unavailable Reason for Visit Reason Comments Clinic Care Coordination - Follow-up Encounter Details Date Type Department Care Team Description 12/08/2020 Care Coordination [facility] Tim Tay [facility] Pediatric RUTH Arnold Coordination - Specialty Clinic [phone] Follow-up [address] [place] [address], 3rd (Work) Floor [address] [address] Social History Tobacco Use Types Packs/Day Years [...] documented as of this encounter Progress Notes Catalina Tay RN - 12/08/2020 8:49 AM CDT Call placed to check on the Forteo and mother answered. Mother reports they received the medication,instructions were very good and they do not have any questions. It has been going well. I encouragedthem to call with any future questions. Future appointment is in place. documented in this encounter Plan of Treatment Not on filedocumented as of this encounter Visit Diagnoses Not on filedocumented in this encounter Care Teams Product Developer Relationship Specialty Start Date End Date Josh Carrero PCP - General Family Medicine 08/09/[address] [address] Julian Spencer MD MD Orthopedics 03/08/[address] [place], [place] [phone] Julian Spencer MD Assigned Musculoskeletal 05/27/[address] Provider [place], [place] [phone] Eugenio Finney Assigned Pediatric 06/19/2005/07 MD David Specialist Provider [address] [facility] 96 [place], [place] [address] Urbano Price, Assigned PCP 11/13/[address] [place] [address] documented as of this encounter
--- OUTSIDE RECORDS SUMMARY | 2022-06-18 11:56 | XMS_ITS | Encounter Summary ---
:2001 Author Organization [place] Address [address] [place] [address] Care Team Providers Name Role Phone Julian Spencer MD Unavailable Julian Spencer MD Unavailable Eugenio Finney MD Unavailable [phone] Josh Carrero Primary Care Provider Urbano Price MD Unavailable Encounter Details Date Type Department Care Team Description 12/01/2020 Travel Social History Tobacco Use Types Packs/Day Years Used Date Smoking Tobacco: Never Smokeless Tobacco: Never Alcohol Use Standard Drinks/Week Comments Not Currently 0 (1 standard drink = 0.6 oz pure alcoho l) Sex Assigned at Date Recorded Female 12/02/2020 1:42 PM CDT COVID-19 Exposure Response Date Recorded In the last month, have you been in contact with No / Unsure 12/01/2020 1:07 PM CDT someone who was confirmed or suspected to have Coronavirus / COVID-19? documented as of this encounter Plan of Treatment Not on filedocumented as of this encounter Visit Diagnoses Not on filedocumented in this encounter Care Teams Punch Press Setter Relationship Specialty Start Date End Date Josh Carrero PCP - General Family Medicine 08/09/[address] [address] Julian Spencer MD MD Orthopedics 03/08/[address] [place] [address] Julian Spencer MD Assigned Musculoskeletal 05/27/[address] [place] [address] Eugenio Finney Assigned Pediatric 06/19/2005/07 MD David Specialist Provider [address] [place] [facility] 96 [place] [address] Urbano Price, Assigned PCP 11/13/20 [facility] [place] [address] documented as of this encounter
--- OUTSIDE RECORDS SUMMARY | 2022-06-18 11:56 | XMS_ITS | Encounter Summary ---
:2001 Author Organization [place] Address [address] [place] [address]. [place] [address] Care Team Providers Name Role Phone Julian Spencer MD Unavailable Julian Spencer MD Unavailable Eugenio Finney MD Unavailable [phone] Josh Carrero Primary Care Provider Urbano Price MD Unavailable Reason for Visit Rehab Therapy Physical Therapy (Routine) - Closed Specialty Diagnoses / Procedures Referred By Contact Refer red To Contact Diagnoses History of fusion of spine for scoliosis Muscle spasm of back Julian Spencer MD [facility] [address] & Physical Therapy - [place], [place] [address] [place] [address] David Sanderson Adonay [address] [place] [address] [phone] Phone: Fax: Referral ID Status Reason Start Date Expiration Date Visits Requ ested Visits Authorized [id number] Closed 12/05/2020 12/03/2021 10 10 Encounter Details Date Type Department Care Team Description 12/12/2020 Therapy Visit [facility] Dulce Mcclendon r ight-sided low back pain without sciatica; Rehabilitation JUDY Jones Aftercare following surgery of the [facility] Services [place] [address] [place] [address] [place] [address] [phone] Social History Tobacco Use Types Packs/Day Years Used Date Smoking Tobacco: Never Smokeless Tobacco: Never Alcohol Use Standard Drinks/Week Comments Not Currently 0 (1 standard drink = 0.6 oz pure alcoho l) Sex Assigned at Date Recorded Female 12/02/2020 1:42 PM CDT COVID-19 Exposure Response Date Recorded In the last month, have you been in contact with No / Unsure 12/12/2020 9:17 AM CDT someone who was confirmed or suspected to have Coronavirus / COVID-19? documented as of this encounter Progress Notes Robert Mcclendon, PT - 12/12/2020 9:20 AM CDT Discharge Note Progress reporting period is from initial eval to December 12, 2020. Dakota failed to return for next follow up visit and current status is unknown. Please see information below for last relevant information on current status. Patient seen for Rxs Used: 2 visits. SUBJECTIVE Subjective changes noted by patient: Subjective: David HEP well. Muscle soreness present but ex's working the correct area . Current pain level is . Previous pain level was Initial Pain level: 8/10. Changes in function: Yes (See Goal flowsheet attached for changes in current functional level) Adverse reaction to treatment or activity: None OBJECTIVE Changes noted in objective findings: ASSESSMENT/PLAN Diagnosis: R LBP DIAGP: Diagnoses of Chronic right-sided low back pain without sciatica and Aftercare following surgery of the musculoskeletal system were pertinent to this visit. Updated problem list and treatment plan: Decreased function - HEP STG/LTGs have been met or progress has been made towards goals: Yes, please see goal flowsheet for most current information Assessment of Progress: current status is unknown. Last current status: Self Management Plans: HEP I have re-evaluated [...] Name Priority Date/Time Associated Diagnosis Comme nts [place] THERAPEUTIC Routine 12/12/2020 9:41 AM Chronic right-sided low EXERCISES. EA 15 MIN CDT back pain without sciatica Aftercare following surgery of the musculoskeletal system documented in this encounter Visit Diagnoses Diagnosis Chronic right-sided low back pain withou t sciatica Aftercare following surgery of the muscu loskeletal system Aftercare following surgery [facility] the [facility], NEC documented in this encounter Care Teams Heating And Ventilating Drafter Relationship Specialty Start Date End Date Josh Carrero PCP - General Family Medicine 08/09/[address] [id number] Julian Spencer MD MD Orthopedics 03/08/[address] [place] [id number] Julian Spencer MD Assigned Musculoskeletal 05/27/[address] [place] [address] Provider [place], [place] [phone] Eugenio Finney Assigned Pediatric 06/19/2005/07 MD David Specialist Provider [address] [facility] 96 [place], [place] [phone] Urbano Price, Assigned PCP 11/13/20 2450 [place] [address] documented as of this encounter
--- OUTSIDE RECORDS SUMMARY | 2022-06-18 11:56 | XMS_ITS | Encounter Summary ---
:2001 Author Organization [place] Address [address] [place] [address]. [place] [address] Care Team Providers Name Role Phone Julian Spencer MD Unavailable Julian Spencer MD Unavailable Eugenio Finney MD Unavailable [phone] Josh Carrero Primary Care Provider Urbano Price MD Unavailable Reason for Visit Reason Onset Date Comments Prior Auth - Medication 11/16/2020 Forteo - Approva l Encounter Details Date Type Department Care Team Description 11/16/2020 Telephone Pediatric Urbano Price Auth - Endocrinology MD Esteban Medication ([facility] [address] [place] [address] Approval) [address] [address] [place], [place] [phone] (Wo rk) [address] [phone] Social History Tobacco Use Types Packs/Day Years Used Date Smoking Tobacco: Never Smokeless Tobacco: Never Alcohol Use Standard Drinks/Week Comments Not Currently 0 (1 standard drink = 0.6 oz pure alcoho l) Sex Assigned at Date Recorded Female 12/02/2020 1:42 PM CDT COVID-19 Exposure Response Date Recorded In the last month, have you been in contact with No / Unsure 10/23/2020 8:12 PM CDT someone who was confirmed or suspected to have Coronavirus / COVID-19? documented as of this encounter Miscellaneous Notes Telephone Encounter - Arlet Warren - 11/21/2020 1:41 PM CDT Images from the original note were not included. Telephone Encounter - Arlet Warren - 11/21/2020 1:16 PM CDT Prior Authorization Approval Authorization Effective Date: 11/21/2020 Authorization Expiration Date: 11/21/2021 Medication: Forteo - Approval Approved Dose/Quantity: 2.4 mL per 28 days. Reference #: [place]: [id number] Insurance Company: [employer] [phone] Expected CoPay: CoPay Card Available: Foundation Assistance Needed: Which Pharmacy is filling the prescription (Not needed for infusion/clinic administered): [facility] [place] [id number] [address] [facility] Notified: Yes Patient Notified: Waiting for approval letter still from the insurance. Telephone Encounter - Arlet Warren - 11/16/2020 10:09 AM CDT Images from the original note were not included. PA Initiation Medication: Forteo Pending Insurance Company: [employer] [phone] Pharmacy Filling the Rx: [facility] [place] [address] Filling Pharmacy Filling Pharmacy Start Date: 11/16/2020 documented in this encounter Plan of Treatment Not on filedocumented as of this encounter Visit Diagnoses Not on filedocumented in this encounter Care Teams Semiconductor Processing Technician Relationship Specialty Start Date End Date Josh Carrero PCP - General Family Medicine 08/09/20 [place] [address] [employer] [place], [place] [phone] Julian Spencer MD MD Orthopedics 03/08/[address] [place], [place] [phone] Julian Spencer MD Assigned Musculoskeletal 05/27/[address] [place] [address] Eugenio Finney Assigned Pediatric 06/19/2005/07 MD David Specialist Provider [address] [facility] 96 [place], [place] [phone] Urbano Price, Assigned PCP 11/13/20 [facility] [place] [address] documented as of this encounter
--- OUTSIDE RECORDS SUMMARY | 2022-06-18 11:56 | XMS_ITS | Encounter Summary ---
:2001 Author Organization [place] Address [address] [place] [address] Care Team Providers Name Role Phone Julian Spencer MD Unavailable Julian Spencer MD Unavailable Eugenio Finney MD Unavailable [phone] Josh Carrero Primary Care Provider Urbano Price MD Unavailable Encounter Details Date Type Department Care Team Description 12/06/2020 Travel Social History Tobacco Use Types Packs/Day [...] on filedocumented in this encounter Care Teams Toy Stuffer Relationship Specialty Start Date End Date Josh Carrero PCP - General Family Medicine 08/09/[address] [address] Julian Spencer MD MD Orthopedics 03/08/[address] [place] [address] Julian Spencer MD Assigned Musculoskeletal 05/27/[address] [place] [address] Eugenio Finney Assigned Pediatric 06/19/2005/07 MD David Specialist Provider [address] [facility] 96 [place] [address] Urbano Price, Assigned PCP 11/13/20 [facility] [place] [address] documented as of this encounter
--- OUTSIDE RECORDS SUMMARY | 2022-06-18 11:56 | XMS_ITS | Encounter Summary ---
:2001 Author Organization [place] Address [address] [place] [address] Care Team Providers Name Role Phone Julian Spencer MD Unavailable Mariposa Atwood MD Unavailable [phone] Julian Spencer MD Unavailable Eugenio Finney MD Unavailable [phone] Josh Carrero Primary Care Provider Encounter Details Date Type Department Care Team Description 10/23/2020 Travel Social History Tobacco Use Types Packs/Day [...] on filedocumented in this encounter Care Teams Advanced Nursing Professor Relationship Specialty Start Date End Date Josh Carrero PCP - General Family Medicine 08/09/[address] [address] Julian Spencer MD MD Orthopedics 03/08/[address] [place] [address] Mariposa Atwood Assigned PCP 04/29/20 11/12/20 MD Nettie [address] [facility] [address] Julian Spencer MD Assigned Musculoskeletal 05/27/[address] [place] [address] Eugenio Finney Assigned Pediatric 06/19/2005/07 MD David Specialist Provider [address] [place] [address] [facility] 96 [place], [place] [phone] documented as of this encounter
--- OUTSIDE RECORDS SUMMARY | 2022-06-18 11:56 | XMS_ITS | Encounter Summary ---
:2001 Author Organization [place] Address [address] [place] [address] Care Team Providers Name Role Phone Julian Spencer MD Unavailable Julian Spencer MD Unavailable Eugenio Finney MD Unavailable [phone] Josh Carrero Primary Care Provider Urbano Price MD Unavailable Encounter Details Date Type Department Care Team Description 03/21/2021 Travel Social History Tobacco Use Types Packs/Day Years Used Date Smoking Tobacco: Never Smokeless Tobacco: Never Alcohol Use Standard Drinks/Week Comments Not Currently 0 (1 standard drink = 0.6 oz pure alcoho l) Sex Assigned at Date Recorded Female 12/02/2020 1:42 PM CDT COVID-19 Exposure Response Date Recorded In the last month, have you been in contact with No / Unsure 03/21/2021 8:41 AM CDT someone who was confirmed or suspected to have Coronavirus / COVID-19? documented as of this encounter Plan of Treatment Not on filedocumented as of this encounter Visit Diagnoses Not on filedocumented in this encounter Care Teams Embedded Software Engineer Relationship Specialty Start Date End Date Josh Carrero PCP - General Family Medicine 08/09/[address] [address] Julian Spencer MD MD Orthopedics 03/08/[address] [place] [address] Julian Spencer MD Assigned Musculoskeletal 05/27/[address] [place] [address] Eugenio Finney Assigned Pediatric 06/19/2005/07 MD David Specialist Provider [address] [place] [address] [facility] 96 [place] [address] Urbano Price, Assigned PCP 11/13/20 [facility] [place] [address] documented as of this encounter
--- OUTSIDE RECORDS SUMMARY | 2022-06-18 11:56 | XMS_ITS | Encounter Summary ---
:2001 Author Organization [place] Address [address] [place] [address]. [place] [address] Care Team Providers Name Role Phone Julian Spencer MD Unavailable Mariposa Atwood MD Unavailable [phone] Julian Spencer MD Unavailable Eugenio Finney MD Unavailable [phone] Josh Carrero Primary Care Provider Encounter Details Date Type Department Care Team Description 10/18/2020 [facility] Pediatric Monica Escalera, RN Specialty Clinic [address] [place] [address] 9th [place], [place] [phone] Social History Tobacco Use Types Packs/Day Years Used Date Smoking Tobacco: Never Smokeless Tobacco: Never Alcohol Use Standard Drinks/Week Comments Not Currently 0 (1 standard drink = 0.6 oz pure alcoho l) Sex Assigned at Date Recorded Female 12/02/2020 1:42 PM CDT COVID-19 Exposure Response Date Recorded In the last month, have you been in contact with No / Unsure 10/13/2020 1:38 PM SECRET SERVICE AGENT someone who was confirmed or suspected to have Coronavirus / COVID-19? documented as of this encounter Miscellaneous Notes Telephone Encounter - Monica Escalera, RN - 10/18/2020 9:58 AM CDTSummary: lab results Tiffany's mom requesting lab result interpretation from hematology. Drs. Angelic and aNncy labs havenot yet been results. RN[facility] reached out to endo team who will address with Tiffany when results are final. documented in this encounter Plan of Treatment Not on filedocumented as of this encounter Visit Diagnoses Not on filedocumented in this encounter Care Teams Insurance Policy Issue Clerk Relationship Specialty Start Date End Date Josh Carrero PCP - General Family Medicine 08/09/20 [place] [address] [place] [address] Julian Spencer MD MD Orthopedics 03/08/20 [address] [place] [id number] Mariposa Atwood Assigned PCP 04/29/20 11/12/20 MD Nettie 2450 [place], [place] [phone] Julian Spencer MD Assigned Musculoskeletal 05/27/20 [address] [place], [place] [phone] [place] [address] Eugenio Finney Assigned Pediatric 06/19/2005/07 MD David Specialist Provider 420 [facility] 96 [place], [place] [address] documented as of this encounter
--- OUTSIDE RECORDS SUMMARY | 2022-06-18 11:56 | XMS_ITS | Encounter Summary ---
:2001 Author Organization [place] Address [address] [place] [address]. [place] [address] Care Team Providers Name Role Phone Julian Spencer MD Unavailable Julian Spencer MD Unavailable Eugenio Finney MD Unavailable [phone] Josh Carrero Primary Care Provider Urbano Price MD Unavailable Reason for Visit Rehab Therapy Physical Therapy (Routine) - Closed Specialty Diagnoses / Procedures Referred By Contact Refer red To Contact Diagnoses History of fusion of spine for scoliosis Muscle spasm of back Julian Spencer MD [facility] [address] [facility] [address] & Physical Therapy - [place], [place] [address] [place] [address] [facility] [address] [place] [address] [phone] Phone: Fax: Referral ID Status Reason Start Date Expiration Date Visits Requ ested Visits Authorized [id number] Closed 12/05/2020 12/03/2021 10 10 Encounter Details Date Type Department Care Team Description 12/06/2020 Therapy Visit [facility] Julian Spencer MD [address] [place] [address] History of fusion of spine for scoliosis ; [place] [address] DAVID [place], [place] [address] Muscle spasm of back; Services Millie Chronic right-sided low back pain without sciatica; [address] David jain Aftercare following surgery of the musculoskeletal system [place] [phone] Social History Tobacco Use Types Packs/Day Years [...] encounter Progress Notes Robert Mcclendon, PT - 12/06/2020 1:20 PM CDT Physical Therapy Initial Evaluation Subjective: The history is provided by the patient and a parent. No cook restaurant was used. Patient Health History Dakota Casiano being seen for R LBP. Date of Onset: A few years. Problem occurred: Scoliosis requiring surgical intervention in 2015 and 2020 Pain is reported as 8/10 on pain scale. General health as reported by patient is excellent. Pertinent medical history includes: none. Red flags: None as reported by patient. Medical allergies: none. Surgeries include: Orthopedic surgery. Other surgery history details: T4-L4 humaira placement in 2015 and 2020.. Current medications: None. 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 Primary job tasks include: Prolonged sitting. Therapist Generated HPI Evaluation Problem details: Pt. complains of R LBP that has been present for years. She and her father report she had scoliosis that required surgical intervention in 2015 and 2020. T4-L4 humaira placement. PT order dated 12/01/20. . Type of problem: Lumbar. This is a chronic condition. Where injured: congenital. Patient reports pain: Lumbar spine right. Pain is described as aching and is intermittent. Pain radiates to: No radiation. Pain is worse during the day. Since onset symptoms are unchanged. Associated symptoms: Loss of motion/stiffness. Symptoms are exacerbated by bending, sitting and standing and relieved by nothing. Previous treatment includes physical therapy and surgery. There was mild improvement following previous treatment. Barriers include: None as reported by patient. Objective: System Lumbar/SI Evaluation ROM: AROM Lumbar: Flexion: 25% Ext: 25% Side Bend: Left: 25% Right: 25% Rotation: Left: Right: Side [place]: Left: Right: Neural Tension/Mobility: Lumbar: Normal Lumbar Palpation: normal General ROS Assessment/Plan: Patient is a 20 year old female with lumbar complaints. Patient has the following significant findings with corresponding treatment plan. Diagnosis 1: R LBP Pain - self management, education, directional preference exercise and home program Decreased ROM/flexibility - manual therapy and therapeutic exercise Decreased strength - therapeutic exercise and therapeutic activities Impaired muscle performance - neuro re-education Decreased function - therapeutic activities Therapy Evaluation Codes: 1) Clinical presentation characteristics are: Stable/Uncomplicated. 2) Decision-Making Low complexity using standardized patient assessment instrument and/or measureable assessment of functional outcome. Cumulative Therapy Evaluation is: Low complexity. Previous and current functional limitations: (See Goal Flow Sheet for this information) Short term and senior living goals: (See Goal Flow Sheet for this information) Communication ability: Patient appears to be able to clearly communicate and understand verbal and written communication and follow directions correctly. Treatment Explanation - The following has been discussed with the patient: RX ordered/plan of care Anticipated outcomes Possible risks and side effects This patient would benefit from PT intervention to resume normal activities. Rehab potential is good. Frequency: 1 X week, once daily Duration: for 6 weeks Discharge Plan: Achieve all LTG. Independent in home treatment program. Reach maximal therapeutic benefit. Please refer to the daily flowsheet for treatment today, total treatment time and time spent performing 1:1 timed codes. documented in this encounter Plan of Treatment Not on filedocumented as of this encounter Procedures Procedure Name Priority Date/Time Associated Diagnosis Comme nts [place] THERAPEUTIC Routine 12/06/2020 3:27 PM Chronic right-sided low EXERCISES. EA 15 MIN CDT back pain without sciatica Aftercare following surgery of the musculoskeletal system documented in this encounter Visit Diagnoses Diagnosis History of fusion of spine for scoliosis Muscle spasm of back Other symptoms referable to back Chronic right-sided low back pain withou t sciatica Aftercare following surgery of the [facility] loskeletal system Aftercare following surgery of the [facility] loskeletal system, NEC documented in this encounter Care Teams Sheet Music Salesperson Relationship Specialty Start Date End Date Josh Carrero PCP - General Family Medicine 08/09/[address] [address] Julian Spencer MD MD Orthopedics 03/08/[address] [place] [address] Julian Spencer MD Assigned Musculoskeletal 05/27/[address] [place] [address] Eugenio Finney Assigned Pediatric 06/19/2005/07 MD David Specialist Provider [address] [place] [address] [facility] 96 [place] [address] Urbano Price, Assigned PCP 11/13/20 [facility] [place] [address] documented as of this encounter
--- OUTSIDE RECORDS SUMMARY | 2022-06-18 11:56 | XMS_ITS | Encounter Summary ---
:2001 Author Organization [facility] Address [address] [place] [address] Care Team Providers Name Role Phone Julian Spencer MD Unavailable Julian Spencer MD Unavailable Eugenio Finney MD Unavailable [phone] Josh Carrero Primary Care Provider Urbano Price MD Unavailable Reason for Visit Diagnostic Imaging XR (Routine) - Closed Specialty Diagnoses / Procedures Referred By Contact Refer red To Contact Diagnoses S/P spinal surgery Julian Spencer MD Procedures XR Six Foot Standing Extremities [address] [facility] [place], [place] [address] Referral ID Status Reason Start Date Expiration Date Visits Requ ested Visits Authorized [id number] Closed 11/28/2020 11/28/2021 1 1 Encounter Details Date Type Department Care Team Description 12/01/2020 Ancillary Procedure [facility] Juveay MD Darell Wallace [address] [place], [place] 1st Floor [address] [place], [place] [phone] [address] (Work) [phone] Social History Tobacco Use Types Packs/Day Years [...] Procedure Name Priority Date/Time Associated Comments Diagnosis XR SIX FOOT STANDING Routine 12/01/2020 1:26 PM S/P spinal teresa jenaro Results for this EXTREMITIES CDT procedure are i n the results section. documented in this encounter Results XR Six Foot Standing Extremities (12/01/2020 1:26 PM CDT) Anatomical Region Laterality Modality Lower Extremity Computed Radiography Specimen (Source) Anatomical Location Collection Method / Collectio n Time Received Time / Laterality Volume Impressions 12/01/2020 4:25 PM CDT Impression: 1. Stable spinal fusion instrumentation T4-L4. Hardware appears intact. 2. Mild left convexed curvature of the m ain thoracic spine and mild right convexed curvature of the thoracol umbar/lumbar spine. 3. No ??global coronal or sagittal imbal ance. 4. Weight bearing axis as detailed above . STEFANIE ABREU, Narrative 12/01/2020 4:25 PM CDT Exam: Full body radiographs using EOS History: S/P spinal surgery Techniques: AP and lateral images of ful l body and secondary images of AP and lateral views of spine were submi tted for interpretation. Comparison: Radiograph 09/22/2020, 021. CT of the lumbar spine 09/03/2018. Findings: 12 rib bearing vertebral bodies and 6 georgi mbar type vertebral bodies are identified with transitional lumbosacral anatomy with lumbarization of S1 body. This is better characterized on CT 09/03/2018. Stable spinal fusion instrumentation T4- L4. Hardware appears intact without evidence of failure. No substant ial spinal spondylosis. Coronal Deformity: There is a a mild ??convexed left curvat ure of thoracic spine with apex at T4 and a mild ??convexed right curvat ure of thoracolumbar/lumbar spine with apex at L2/L3. No substantial global coronal imbalance. Sagittal Vertical [place] (A vertical line drawn from the center of C7 (carl line) to the posterosuperior aspe ct of the S1 on sagittal plane): ??less than 4 cm Weight bearing axis: (Defined as a line drawn from the center of the femoral head to the mid aspect of the ti bial plafond). ?Right: Weight bearing axis crosses central 1/3 of medial tibial plateau. ? Left: Weight bearing axis crosses through the medial tibial spine. Leg length: ??(Measured from the top of the femoral head to the center of tibial plafond. ??It is assumed joint s are in similar degrees of extension bilaterally. ??Significant dif ference is defined when discrepancy is greater than 1.5 cm). ?No significant ??leg length dis crepancy. Additional Findings: Lungs are clear. Cardiac silhouette is n ormal. The pattern is nonobstructive. No acute osseous abnorma lity. Procedure Note Stefanie Abreu, DO - 12/01/2020Forma tting of this note might be different from the original. Exam: Full body radiographs using EOS History: S/P spinal surgery Techniques: AP and lateral images of ful l body and secondary images of AP and lateral views of spine were submi tted for interpretation. Comparison: Radiograph 09/22/2020, 021. CT of the lumbar spine 09/03/2018. Findings: 12 rib bearing vertebral bodies and 6 georgi mbar type vertebral bodies are identified with transitional lumbosacral anatomy with lumbarization of S1 body. This is better characterized on CT 09/03/2018. Stable spinal fusion instrumentation T4- L4. Hardware appears intact without evidence of failure. No substant ial spinal spondylosis. Coronal Deformity: There is a a mild convexed left curvatur e of thoracic spine with apex at T4 and a mild convexed right curvatur e of thoracolumbar/lumbar spine with apex at L2/L3. No substantial global coronal imbalance. Sagittal Vertical [place] (A vertical line drawn from the center of C7 (carl line) to the posterosuperior aspe ct of the S1 on sagittal plane): less than 4 cm Weight bearing axis: (Defined as a line drawn from the center of the femoral head to the mid aspect of the ti bial plafond). Right: Weight bearing axis crosses cent ral 1/3 of medial tibial plateau. Left: Weight bearing axis crosses throu gh the medial tibial spine. Leg length: (Measured from the top of th e femoral head to the center of tibial plafond. It is assumed joints are in similar degrees of extension bilaterally. Significant diffe rence is defined when discrepancy is greater than 1.5 cm). No significant leg length discrepancy. Additional Findings: Lungs are clear. Cardiac silhouette is n ormal. The pattern is nonobstructive. No acute osseous abnorma lity. Impression: 1. Stable spinal fusion instrumentation T4-L4. Hardware appears intact. 2. Mild left convexed curvature of the m ain thoracic spine and mild right convexed curvature of the thoracol umbar/lumbar spine. 3. No global coronal or sagittal imbalan ce. 4. Weight bearing axis as detailed above . STEFANIE ABREU DO Julian Spencer MD IMG DIAGNOSTIC IMAGING ORDER DANO documented in this encounter Visit Diagnoses Not on filedocumented in this encounter Care Teams Maori Liaison Adviser Relationship Specialty Start Date End Date Josh Carrero PCP - General Family Medicine 08/09/20 [place] [id number] Julian Spencer MD MD Orthopedics 03/08/[address] [place] [address] Julian Spencer MD Assigned Musculoskeletal 05/27/20 [address] [facility] [address] Provider [place], [place] [address] Eugenio Finney Assigned Pediatric 06/19/2005/07 MD David Specialist Provider [address] [facility] [address] [place], [place] [address] Urbano Price, Assigned PCP 11/13/20 [address] [facility] [place] [place] [address] documented as of this encounter
--- OUTSIDE RECORDS SUMMARY | 2022-06-18 11:56 | XMS_ITS | Encounter Summary ---
:2001 Author Organization [facility] Address [address] [place] [address]. [place] [address] Care Team Providers Name Role Phone Julian Spencer MD Unavailable Julian Spencer MD Unavailable Eugenio Finney MD Unavailable [phone] Josh Carrero Primary Care Provider Urbano Price MD Unavailable Encounter Details Date Type Department Care Team Description 11/23/[address] [facility] Pediatric MD [facility] [address] [place] [address] [facility] [phone] (Wo rk) [facility] [address], [place] [address] Social History Tobacco Use Types [...] on filedocumented in this encounter Care Teams Lawyers Relationship Specialty Start Date End Date Josh Carrero PCP - General Family Medicine 08/09/[address] [place] [address] Julian Spencer MD MD Orthopedics 03/08/[address] [place], [place] [phone] Julian Spencer MD Assigned Musculoskeletal 05/27/[address] Provider [place], [place] [phone] Eugenio Finney Assigned Pediatric 06/19/2005/07 MD David Specialist Provider [address] [facility] [address] [place] [address] Urbano Price, Assigned PCP 11/13/[address] [place] [address] documented as of this encounter
--- OUTSIDE RECORDS SUMMARY | 2022-06-18 11:56 | XMS_ITS | Encounter Summary ---
:2001 Author Organization [facility] Address [address] [place] [address] Care Team Providers Name Role Phone Julian Spencer MD Unavailable Julian Spencer MD Unavailable Eugenio Finney MD Unavailable [phone] Josh Carrero Primary Care Provider Urbano Price MD Unavailable Reason for Visit Reason Comments Clinic Care Coordination - Follow-up Encounter Details Date Type Department Care Team Description 12/05/2020 Care Coordination [facility] Tim Tay [facility] Pediatric RUTH Arnold Coordination - Specialty Clinic [phone] Follow-up [address] [place] [address], [facility] (Work) Floor [address] [address] Social History Tobacco Use Types [...] encounter Progress Notes Catalina Tay RN - 12/05/2020 1:07 PM CDT Call placed to family and was able to reach the mother regarding the Forteo prescription. She will call the [facility] specialty pharmacy to discuss delivery versus getting at local pharmacy. Mother told thatthe PA seems to indicate it must go through the specialty [facility]. Mother states she is familiar with giving injections and dose not think they will have a problem with this pen device. She has my number to call but I will check in with her after they receive the medication to determine if they need additional instruction. I spoke directly to the mother who verbalized understanding, agreed to plan and had no further questions at this time. documented in this encounter Plan of Treatment Not on filedocumented as of this encounter Visit Diagnoses Not on filedocumented in this encounter Care Teams Wax Ball Molder Relationship Specialty Start Date End Date Josh Carrero PCP - General Family Medicine 08/09/[address] [address] Julian Spencer MD MD Orthopedics 03/08/20 [address] [place], [place] [phone] [place], [place] [phone] Julian Spencer MD Assigned Musculoskeletal 05/27/[address] Provider [place], [place] [phone] Eugenio Finney Assigned Pediatric 06/19/2005/07 MD David Specialist Provider [address] [facility] 96 [place], [place] [address] Urbano Price, Assigned PCP 11/13/20 [facility]0 [address] [facility] [address] [place], [place] [address]34 documented as of this encounter
--- OUTSIDE RECORDS SUMMARY | 2022-06-18 11:56 | XMS_ITS | Encounter Summary ---
:2001 Author Organization [facility] Address [address] [place] [address]. [place] [address] Care Team Providers Name Role Phone Julian Spencer MD Unavailable Julian Spencer MD Unavailable Eugenio Finney MD Unavailable [phone] Josh Carrero Primary Care Provider Urbano Price MD Unavailable Joe Leo MD Unavailable Reason for Visit Diagnostic Imaging XR (Routine) - Closed Specialty Diagnoses / Procedures Referred By Contact Refer red To Contact Diagnoses S/P spinal surgery Reta Escalante PA-C Procedures XR Six Foot Standing Extremities [address] [place] [address] 4 Referral ID Status Reason Start Date Expiration Date Visits Requ ested Visits Authorized [id number] Closed 04/05/2021 04/05/2022 1 1 Encounter Details Date Type Department Care Team Description 04/11/2021 Ancillary Procedure [facility] Alejandro Cuadra PA-C Imaging Center Xray [facility]0 [place] 055739 [place] [address] [facility] [place] [address] Social History Tobacco Use Types [...] Comments Diagnosis XR SIX FOOT STANDING Routine 04/11/2021 2:28 PM S/P spinal teresa jenaro Results for this EXTREMITIES CDT procedure are i n the results section. documented in this encounter Results XR Six Foot Standing Extremities (04/11/2021 2:28 PM CDT) Anatomical Region Laterality Modality Lower Extremity Computed Radiography Specimen (Source) Anatomical Location Collection Method / Collectio n Time Received Time / Laterality Volume Impressions 04/11/2021 4:19 PM CDT Impression: 1. Postoperative changes of spinal fusio n from T4-L4. No evidence of hardware failure 2. Mild left convexed curvature of the m ain thoracic spine and mild right convexed curvature of the thoracol umbar/lumbar spine. 3. No global coronal or sagittal imbalan ce. 4. Weight bearing axis as detailed above . INDIA MICHEL MD Narrative 04/11/2021 4:19 PM CDT Exam: Full body radiographs using EOS History: S/P spinal surgery Techniques: AP and lateral images of ful l body and secondary images of AP and lateral views of spine were submi tted for interpretation. Comparison: Spine radiograph 12/01/2020,. Findings: 12 rib bearing vertebral bodies and 6 georgi mbar type vertebral bodies are identified with transitional lumbosacral anatomy with lumbarization of S1 body Postoperative changes of posterior spina l fusion from T4-L4. No evidence of hardware failure. No substan tial spinal spondylosis. Coronal Deformity: There is a a mild ??convexed left curvat ure of thoracic spine with apex at T4 and a mild ??convexed right curvat ure of thoracolumbar/lumbar spine with apex at L2/L3. No substantial global coronal imbalance. Sagittal Vertical [place] (A vertical line drawn from the center [...] No acute osseous abnorma lity. Procedure Note India Michel MD - 04/11/2021Fo rmatting of this note might be different from the original. Exam: Full body radiographs using EOS History: S/P spinal surgery Techniques: AP and lateral images of ful l body and secondary images of AP and lateral views of spine were submi tted for interpretation. Comparison: Spine radiograph 12/01/2020,. Findings: 12 rib bearing vertebral bodies and 6 georgi mbar type vertebral bodies are identified with transitional lumbosacral anatomy with lumbarization of S1 body Postoperative changes of posterior spina l fusion from T4-L4. No evidence of hardware failure. No substan tial spinal spondylosis. Coronal Deformity: There is a a mild convexed left curvatur e of thoracic spine with apex at T4 and a mild convexed right curvatur e of thoracolumbar/lumbar spine with apex at L2/L3. No substantial global coronal imbalance. Sagittal Vertical [place] (A vertical line drawn from the center [...] No acute osseous abnorma lity. Impression: 1. Postoperative changes of spinal fusio n from T4-L4. No evidence of hardware failure 2. Mild left convexed curvature of the m ain thoracic spine and mild right convexed curvature of the thoracol umbar/lumbar spine. 3. No global coronal or sagittal imbalan ce. 4. Weight bearing axis as detailed above . INDIA MICHEL MD Reta Escalante PA-C IMG DIAGNOSTIC IMAGING ORDER DANO documented in this encounter Visit Diagnoses Not on filedocumented in this encounter Care Teams Olive Grader Relationship Specialty Start Date End Date Josh Carrero PCP - General Family Medicine 08/09/20 [place] [address] Julian Spencer MD Orthopedics 03/08/20 MD Darell [address] [place] [id number] Julian Spencer Assigned Musculoskeletal 05/27/20 MD Darell Provider [address] [place] [id number] Eugenio Finney Assigned Pediatric 06/19/2005/07 MD David Specialist Provider [address] [facility] [address] [facility] [place] [facility] 96 [place] [address] Urbano Price Assigned PCP 11/13/20 MD Esteban [address]50 [place], [place] [phone] Joe Leo MD Physical Medicine and 04/11/[address] [place] [address] documented as of this encounter
--- OUTSIDE RECORDS SUMMARY | 2022-06-18 11:56 | XMS_ITS | Encounter Summary ---
:2001 Author Organization [facility] Address [address] [place] [address] Care Team Providers Name Role Phone Julian Spencer MD Unavailable Julian Spencer MD Unavailable Eugenio Finney MD Unavailable [phone] Josh Carrero Primary Care Provider Urbano Price MD Unavailable Reason for Visit Diagnostic Imaging XR (Routine) - Closed Specialty Diagnoses / Procedures Referred By Contact Refer red To Contact Diagnoses S/P spinal surgery Julian Spencer MD Procedures XR Spine Complete Scoliosis 2 Views [address] [place] [address] 4 Referral ID Status Reason Start Date Expiration Date Visits Requ ested Visits Authorized [id number] Closed 11/28/2020 11/28/2021 1 1 Encounter Details Date Type Department Care Team Description 12/01/2020 Ancillary Procedure [facility] uJlian [facility] Juveay MD Darell [place] [address] [place], [place] 1st Floor [address] [place], [place] [phone] [address] (Work) [phone] Social History Tobacco Use Types Packs/Day Years [...] Priority Date/Time Associated Diagnosis Comme nts XR SPINE COMPLETE Routine 12/01/2020 1:26 PM S/P spinal surger y Results for this SCOLIOSIS 2 VIEWS CDT procedure are in the results section. documented in this encounter Results XR Spine Complete Scoliosis 2 Views (12/01/2020 1:26 PM CDT) Anatomical Region Laterality Modality Spine Computed Radiography Specimen (Source) Anatomical Location Collection [...] axis as detailed above . STEFANIE ABREU, DO Narrative 12/01/2020 4:25 PM CDT Exam: Full [...] No substantial global coronal imbalance. Sagittal Vertical [place] (A vertical line drawn from the center [...] No substantial global coronal imbalance. Sagittal Vertical [place] (A vertical line drawn from the center [...] on filedocumented in this encounter Care Teams Grooming Salon Manager Relationship Specialty Start Date End Date Josh Carrero PCP - General Family Medicine 08/09/20 [place] [phone] Julian Spencer MD MD Orthopedics 03/08/[address] [place] [phone] Julian Spencer MD Assigned Musculoskeletal 05/27/[address] [place], [place] [phone] Provider [place], [place] 9[address] Eugenio Finney Assigned Pediatric 06/19/2005/07 MD David Specialist Provider [address] [facility] 96 [place], [place] [phone] Urbano Price, Assigned PCP 11/13/[address] [facility] S [place], [place] [phone] documented as of this encounter
--- OUTSIDE RECORDS SUMMARY | 2022-06-18 11:56 | XMS_ITS | Encounter Summary ---
:2000 Author Organization [place] Address [address] [facility] [place] [address] Care Team Providers Name Role Phone Julian Spencer MD Unavailable Mariposa Atwood MD Unavailable [phone] Julian Spencer MD Unavailable Eugenio Finney MD Unavailable [phone] Josh Carrero Primary Care Provider Reason for Visit Reason Comments Vomiting Encounter Details Date Type Department Care Team Description 10/23/2020 Emergency [facility] Berna Galvez MD Gastroenteritis Emergency Department [address] [facility] [address] [place] [address] [place] [address] [phone] Social History Tobacco Use Types Packs/Day Years [...] Sign Reading Time Taken Comments Blood Pressure 106/61 10/23/2020 11:23 PM CDT Pulse 75 10/23/2020 11:23 PM CDT Temperature 36.4 ??C (97.6 ??F) 10/23/2020 8:15 PM CDT Respiratory Rate 18 10/23/2020 10:48 PM CDT Oxygen Saturation 98% 10/23/2020 10:53 PM CDT Inhaled Oxygen Concentration - - Weight 51.7 kg (113 lb 15.7 oz) 10/23/2020 8:15 PM CDT Height - - Body Mass Index 19.92 10/13/2020 2:33 PM [facility] documented in this encounter Discharge Instructions Discharge InstructionsSteve Wray MD - 10/23/2020 11:12 PM CDT Discharge Information: Emergency Department Dakota saw Dr. Wray and Dr. Galvez for vomiting and diarrhea. This condition is sometimes called Gastroenteritis. It is usually caused by a virus. There is no treatment to cure this type of infection. Generally this type of illness will get better on its own within 2-7 days. Sometimes the vomiting goes away first, but the diarrhea lasts longer. The most important thing you can do for your child with this type of illness is encourage them to drink small sips of fluids frequently in order to stay hydrated. Home care Make sure she gets plenty to drink, and if able to eat, has mild foods (not too fatty). If she starts vomiting again, have her take a small sip (about a spoonful) of water or other clear liquid every 5 to 10 minutes for a few hours. Gradually increase the amount. Medicines For nausea and vomiting, you may give her the ondansetron (Zofran) as prescribed. This medicine may not make the vomiting go away completely, but it may help your child feel less nauseated and drink more. For fever or pain, Dakota may have Acetaminophen (Tylenol) every 4 to 6 hours [...] are based on your child???s weight. If your doctor prescribed these medicines, the dose may be a little different. Either dose is safe. If you have questions, ask a doctor or pharmacist. When to get help Please return to the Emergency Department or contact her regular clinic if she: feels much worse. has trouble breathing. won???t drink or can???t keep down liquids. goes more than 8 hours without peeing, has a dry mouth or cries without tears. has severe pain. is much more crabby or sleepier than usual. Call if you have any other concerns. If she is not better in 3 days, please make an appointment to follow up with her primary care provider. AttachmentsThe following attachments cannot be sent through Care Everywhere. Gastroenteritis, Viral (Adult) (Peruvian)documented in this encounter Medications at Time of Discharge Medication Sig Dispensed Refills Start Date End Date acetaminophen (TYLENOL) Take 1000 mg every 0 08/05 500 MG six hours for 2 days tabletIndications: Acute after discharge, post-operative pain then as needed (every six hours) after that. cholecalciferol (VITAMIN Take by mouth daily 0 D3) 125 mcg (5000 units) capsule hydrOXYzine (ATARAX) 10 TAKE ONE TABLET BY 0 06/06 MG tablet MOUTH EVERY 8 HOURS NEEDED FOR ANXIETY hydrOXYzine (ATARAX) 25 TAKE ONE TABLET BY 0 10/03 MG tablet MOUTH EVERY DAY NEEDED Lidocaine (LIDOCARE) 4 % Place 1-2 patches on 30 patch 3 0 08/15/2020 PatchIndications: Acute skin over painful post-operative pain, area. Leave on for Chronic musculoskeletal 12 hours, then keep pain off for 12 hours. Repeat daily. naloxone (NARCAN) 4 [place] 1 spray (4 mg) 0.2 mL 0 2020 MG/0.1ML nasal into one nostril sprayIndications: Acute alternating nostrils post-operative pain as needed for opioid reversal every 2-3 minutes until assistance arrives Norethindrone Take by mouth daily 0 Acet-Ethinyl Est (LOESTRIN 08/24, , PO) teriparatide, Inject 0.08 mLs (20 2.4 mL 5 11/06/2020 recombinant, (FORTEO) mcg) Subcutaneous 600 MCG/2.4ML SOPN daily injectionIndications: Localized osteoporosis without current pathological fracture, Pseudarthrosis following spinal fusion tranexamic acid Take 1.5 tablets 15 tablet 0 08/16/2020 (LYSTEDA) 650 MG every six hours as tabletIndications: needed for Platelet disorder (H) persistent bleeding. traZODone (DESYREL) 50 Take 50 mg by mouth 0 09/05 MG tablet nightly as needed ondansetron (ZOFRAN ODT) Take 1 tablet (4 mg) 12 tablet 0 0 10/23/2020 10/30/2020 4 MG ODT tabIndications: by mouth every 6 Gastroenteritis hours as needed for nausea celecoxib (CELEBREX) 100 Take 1 capsule (100 60 capsule 0 04/11/2021 MG capsuleIndications: mg) by mouth 2 times Acute post-operative daily pain, Inflammation of operative incision diazepam (VALIUM) 2 MG Take 1 tablet (2 mg) 30 tablet 0 04/11/2021 tabletIndications: Acute by mouth every 6 post-operative pain hours as needed for anxiety diazepam (VALIUM) 2 MG Take 1 tablet (2 mg) 10 tablet 0 04/11/2021 tablet by mouth every 6 hours as needed for muscle spasms oxyCODONE (ROXICODONE) 5 Take 1 tablet (5 mg) 30 tablet 0 0 08/31/2020 04/11/2021 MG tabletIndications: by mouth every 6 Acute post-operative hours as needed for pain, Neuropathic pain pain polyethylene glycol Take 17 g by mouth 510 g 08/16/1904/11/2021 (MIRALAX) 17 GM/Dose daily powderIndications: Acute post-operative pain pregabalin (LYRICA) 150 Take 1 capsule (150 60 capsule 3 06/202104/11/2021 MG capsuleIndications: mg) by mouth 2 times Chronic musculoskeletal daily pain, Chronic pain syndrome sertraline (ZOLOFT) 100 Take 100 mg by mouth 0 06/02/2021 MG tablet daily documented as of this encounter ED Notes Eloina Gray RN - 10/23/2020 8:18 PM CDT N/V x 2 days. Patient c/o generalized abd pain 02/11. Mother concerned that patient has had numerous bilious emesis in last 12 hours. Patient unsteady during ambulation; assistance x 1. Patient c/o thatshe is shaky and states her body feels numb. Last BM today. No dysuria. Patient has complex medical history. History of POTS. VSS, afebrile at triage. Patient pale. Zofran administered around noonbut didn't do anything. Twin Galvez MD - 10/23/2020 8:07 PM CDT History Chief Complaint Patient presents with ??? Vomiting HPI History obtained from patient and mother Dakota is a 20 year old female, with history of tethered cord, scoliosis s/p multiple surgeries who presents at 8:22 PM with two days of bilious emesis and abdominal pain for two days. Symptoms started relatively without warning. She has generalized abdominal pain, mainly over the lower abdomen. She isnot tolerating any solids or liquids for the past two days. She is shaky and tremulous, dizzy, and has a headache. She does not have dysuria, bleeding, hematuria, urgency, or frequency. No cough or URisymptoms. No sick contacts. No new foods or eating from restaurant. Mother tried zofran ODT around noon today but it didn't help, also tried tylenol for abdominal pain.They came in today because nothing like this has every happened and something doesn't seem right. PMHx: Past Medical History: Diagnosis Date ??? [...] Surgeon: Julian Spencer MD; Location: [facility] OR Has never had abdominal surgery. These were reviewed with the patient/family. MEDICATIONS were reviewed and are as follows: No current facility-administered medications for this encounter. Current Outpatient Medications Medication ??? ondansetron (ZOFRAN ODT) 4 MG ODT tab ??? acetaminophen (TYLENOL) 500 MG tablet ??? celecoxib (CELEBREX) 100 MG capsule ??? cholecalciferol (VITAMIN D3) 125 mcg (5000 units) capsule ??? diazepam (VALIUM) 2 MG tablet ??? diazepam (VALIUM) 2 MG tablet ??? Lidocaine (LIDOCARE) 4 % Patch ??? naloxone (NARCAN) 4 MG/0.1ML nasal spray ??? Norethindrone Acet-Ethinyl Est (LOESTRIN 08/24, , PO) ??? oxyCODONE (ROXICODONE) 5 MG tablet ??? polyethylene glycol (MIRALAX) 17 GM/Dose powder ??? pregabalin (LYRICA) 150 MG capsule ??? sertraline (ZOLOFT) 100 MG tablet ??? tranexamic acid (LYSTEDA) 650 MG tablet ALLERGIES: Dust mites and Hydromorphone IMMUNIZATIONS: Due for MenACWY and tetanus. SOCIAL HISTORY: Dakota lives with her mother. She is attending college all online right now. This is going well. She has been in relationships with boys and recently broke up with her boyfriend.She has never been sexually active or had unwanted sexual activity. She does not use drugs or alcohol. I have reviewed the Medications, Allergies, Past Medical and Surgical History, and Social History inthe Epic system. Review of Systems Please see HPI for pertinent positives and negatives. All other systems reviewed and found to be negative. Physical Exam BP: 115/74 Pulse: 82 Temp: 97.6 ??F (36.4 ??C) Resp: 20 Weight: 51.7 kg (113 lb 15.7 oz) SpO2: 97 % Physical Exam Appearance: Lying in bed, minimally participating in conversation due to discomfort HEENT: Head: Normocephalic and atraumatic. Eyes: PERRL, EOM intact, conjunctivae and sclerae clear. Ears: Tympanic membranes clear bilaterally, without inflammation or effusion. Nose: Nares clear with no active discharge. Mouth/Throat: No oral lesions, pharynx clear with no erythema or exudate. Neck: Supple, no masses. No significant cervical lymphadenopathy. Pulmonary: No grunting, flaring, retractions or stridor. Good air entry, clear to auscultation bilaterally, with no rales, rhonchi, or wheezing. Cardiovascular: Regular rate and rhythm, normal S1 and S2, with no murmurs. Normal symmetric peripheral pulses and brisk cap refill. Abdominal: Normal bowel sounds, soft, tender with palpation throughout abdomen but no rigidity or guarding, negative psoas and obturator sign, nondistended, with no masses and no hepatosplenomegaly. Neurologic: Alert and oriented, cranial nerves II-XII intact, no nystagmus, moving all extremities equally, no tremor. Extremities/Back: No deformity, no CVA tenderness. Skin: No significant rashes, ecchymoses, or lacerations. Genitourinary: Deferred Rectal: Deferred ED Course Procedures No results found for this or any previous visit (from the past 24 hour(s)). Medications 0.9% sodium chloride BOLUS (0 mLs Intravenous Stopped 10/23/202205) ondansetron (ZOFRAN) injection 8 mg (8 mg Intravenous Given 10/23/202102) acetaminophen (TYLENOL) tablet 650 mg (650 mg Oral Given 10/23/202102) pantoprazole (PROTONIX) IV push injection 40 mg (40 mg Intravenous Given 10/23/202242) Old chart from [facility] reviewed, supported history as above. Labs reviewed and normal. Imaging reviewed and revealed moderately dilated bowel, no obstruction, thickened bowel wall c/w enteritis. Critical care time: none Assessments & Plan (with Medical Decision Making) Dakota is a 20 year old female, with history of tethered cord, scoliosis s/p multiple surgeries who presents with bilious emesis and abdominal pain. She is hemodynamically stable and well hydrated. Differential diagnosis includes but is not limited to: bowel obstruction or ileus, gastroenteritis, uti, appendicitis, ovarian torsion. We will obtained basic labs and start with plain film to eval for obstruction. Giving 1L bolus and IV zofran. She has improved some after these interventions - more alert, color has improved per mother. She wants to drink and is able to keep down a few ounces of gatorade. Labs return reassuring. Xray consistent with gastroenteritis with thickened appearance of bowel wall. While there is some distension, there are not any air fluid levels and gas present throughout the abdomen. While here, after he abdominal ultrasound, she did develop diarrhea. It was not bloody. This r einforced the presumed diagnosis of I have reviewed the nursing notes. I have reviewed the findings, diagnosis, plan and need for follow up with the patient. Discharge Medication List as of 10/23/2020 11:19 PM START taking these medications Details ondansetron (ZOFRAN ODT) 4 MG ODT tab Take 1 tablet (4 mg) by mouth every 6 hours as needed for nausea, Disp-12 tablet, R-0, E-Prescribe Final diagnoses: Gastroenteritis Patient was seen and discussed with Dr. Galvez. Steve Wray MD Pediatrics resident PGY3 10/23/2020 [facility] EMERGENCY DEPARTMENT This data collected with the Resident working in the Emergency Department. Patient was seen and evaluated by myself and I repeated the history and physical exam with the patient. The plan of care was discussed with them. The ren portions of the note including the entire assessment and plan reflect my d ocumentation. Twin Martinez MD 10/27/20 [id number] documented in this encounter Plan of Treatment Not on filedocumented as of this encounter Procedures Procedure Name Priority Date/Time Associated Diagnosis Comme nts US ABDOMEN COMPLETE STAT 10/23/2020 10:39 Resu lts for this PM CDT procedure are i n the results section. XR ABDOMEN 2 VIEWS STAT 10/23/2020 9:29 Result s for this PM CDT procedure are i n the results section. HCG QUALITATIVE URINE STAT 10/23/2020 9:17 Res ults for this POCT PM CDT procedure are i n the results section. ISTAT GASES Routine 10/23/2020 8:59 Results for this ELECTROLYTES ICA PM CDT procedure a re in GLUCOSE VENOUS POCT the resu lts section. CBC WITH PLATELETS & STAT 10/23/2020 8:57 Resu lts for this DIFFERENTIAL PM CDT procedure are i n the results section. LIPASE STAT 10/23/2020 8:57 Results for this PM CDT procedure are i n the results section. COMPREHENSIVE STAT 10/23/2020 8:57 Results for this METABOLIC PANEL PM CDT procedure ar e in the results section. ROUTINE UA WITH STAT 10/23/2020 8:32 Results f or this MICROSCOPIC PM CDT procedure are i n the results section. URINE CULTURE STAT 10/23/2020 8:32 Gastroenteritis Results for this PM CDT procedure are i n the results section. documented in this encounter Results US Abdomen Complete (10/23/2020 10:39 PM CDT) Anatomical Region Laterality Modality Abdomen/Pelvis Ultrasound Specimen (Source) Anatomical Location Collection Method / Collectio n Time Received Time / Laterality Volume Impressions 10/24/2020 7:42 AM CDT IMPRESSION: 1. Normal abdominal ultrasound. No visua lized renal stones or hydronephrosis. 2. Appendix is within normal limits. I have personally reviewed the examinati on and initial interpretation and I agree with the findings. NEYDA WASHINGTON MD Narrative 10/24/2020 7:42 AM CDT EXAMINATION: US ABDOMEN COMPLETE ??10/23/2020 10:39 PM ?? CLINICAL HISTORY: abdominal pain- r/o ap pendicitis, pancreatitis, kidney stones COMPARISON: Ultrasound 01/28/2009 ? FINDINGS: The liver is normal in contour and echog enicity. Liver measures 14.6 cm. There is no intrahepatic or extrahep atic biliary ductal dilatation. The common bile duct measure s 3 mm. The gallbladder is normal, without gallstones, wall thicken ing, or pericholecystic fluid. Main portal vein is patent with antegrad e flow. Common bile duct measures 3 mm in diameter. The spleen measures maximally 9.5 cm and is normal in appearance. The visualized portions of the pancreas are normal in echogenicity. The visualized upper abdominal aorta and inferior vena cava are normal. ?? The kidneys are normal in position and e chogenicity. The right kidney measures 9.9 cm and the left kidney nitesh ures 10.3 cm. There is no significant urinary tract dilation. The urinary bladder is partially distended distended and normal in morpho logy. The bladder wall is normal. Appendix visualized and measures 5.6 mm in diameter. Procedure Note Neyda Washington MD - 10/24/2020Fo rmatting of this note might be different from the original. EXAMINATION: US ABDOMEN COMPLETE 10/24/19 10:39 PM CLINICAL HISTORY: abdominal pain- r/o ap pendicitis, pancreatitis, kidney stones COMPARISON: Ultrasound 01/28/2009 FINDINGS: The liver is normal in contour and echog enicity. Liver measures 14.6 cm. There is no intrahepatic or extrahep atic biliary ductal dilatation. The common bile duct measure s 3 mm. The gallbladder is normal, without gallstones, wall thicken ing, or pericholecystic fluid. Main portal vein is patent with antegrad e flow. Common bile duct measures 3 mm in diameter. The spleen measures maximally 9.5 cm and is normal in appearance. The visualized portions of the pancreas are normal in echogenicity. The visualized upper abdominal aorta and inferior vena cava are normal. The kidneys are normal in position and e chogenicity. The right kidney measures 9.9 cm and the left kidney nitesh ures 10.3 cm. There is no significant urinary tract dilation. The urinary bladder is partially distended distended and normal in morpho logy. The bladder wall is normal. Appendix visualized and measures 5.6 mm in diameter. IMPRESSION: 1. Normal abdominal ultrasound. No visua lized renal stones or hydronephrosis. 2. Appendix is within normal limits. I have personally reviewed the examinati on and initial interpretation and I agree with the findings. NEYDA WASHINGTON MD Twin Galvez MD IMG US ORDERABLES Abdomen XR, 2 vw, flat and upright (10/23/2020 9:29 PM CDT) Anatomical Region Laterality Modality Abdomen/Pelvis Computed Radiography Specimen (Source) Anatomical Location Collection Method / Collectio n Time Received Time / Laterality Volume Impressions 10/23/2020 10:20 PM CDT Impression: 1. Multiple loops of moderately gas dist ended large and small bowel without definite evidence of obstruction . No pneumatosis, portal venous gas or evidence of free air. 2. Mildly thickened appearance the bowel wall, suggestive of enteritis. I have personally reviewed the examinati on and initial interpretation and I agree with the findings. JUAN KAYE MD Narrative 10/23/2020 10:20 PM CDT Exam: XR ABDOMEN 2 VW, 10/23/2020 9:29 PM Indication: BILIOUS EMESIS Comparison: Radiographs dated 08/12/2020 Findings: Supine and upright AP views of the abdom en. Partially visualized spinal fixation hardware. Visualized por tion of the hardware appears intact and grossly stable in alignment. Multiple loops of moderately gas distended large and small bowel. No pneumatosis or portal venous gas. Mildly thickened appearance of the bowel. No evidence of free air on upright imaging. No focal airspace co nsolidation in the visualized portion of the lower thorax. Unchanged c onvex right scoliotic curvature. No acute osseous finding. Procedure Note Juan Kaye MD - 10/23/2020Formattin g of this note might be different from the original. Exam: XR ABDOMEN 2 VW, 10/23/2020 9:29 PM Indication: BILIOUS EMESIS Comparison: Radiographs dated 08/12/2020 Findings: Supine and upright AP views of the abdom en. Partially visualized spinal fixation hardware. Visualized por tion of the hardware appears intact and grossly stable in alignment. Multiple loops of moderately gas distended large and small bowel. No pneumatosis or portal venous gas. Mildly thickened appearance of the bowel. No evidence of free air on upright imaging. No focal airspace co nsolidation in the visualized portion of the lower thorax. Unchanged c onvex right scoliotic curvature. No acute osseous finding. Impression: 1. Multiple loops of moderately gas dist ended large and small bowel without definite evidence of obstruction . No pneumatosis, portal venous gas or evidence of free air. 2. Mildly thickened appearance the bowel wall, suggestive of enteritis. I have personally reviewed the examinati on and initial interpretation and I agree with the findings. JUAN KAYE MD Twin Galvez MD IMG DIAGNOSTIC IMAGING ORDER DANO hCG qual urine POCT (10/23/2020 9:17 PM CDT) P athologist Signature HCG Qual Urine Negative neg Internal QC OK Yes Specimen (Source) Anatomical Collection Method Collection Time Re ceived Time Location / / Volume Laterality Urine specimen 10/23/2020 9:17 PM (specimen) CDT Twin Galvez MD LAB - ENTER/EDIT POCT (ABNORMAL) ISTAT gases elec ica gluc abiola POCT (10/23/2020 8:59 PM CDT) Analysis Performed At Patho logist Time Signature Ph Venous 7.42 7.32 - 10/23/2020 [facility] 7.43 pH 9:18 PM CDT TEST, [facility] PCO2 Venous 41 40 - 50 mm 10/23/2020 [facility] Hg 9:18 PM CDT TEST, [facility] PO2 Venous 30 25 - 47 mm 10/23/2020 [facility] Hg 9:18 PM CDT TEST, [facility]LD [facility] Bicarbonate 26 21 - 28 10/23/2020 [facility] Venous mmol/L 9:18 PM CDT TEST, [facility] O2 Sat Venous 58 % 10/23/2020 [facility] 9:18 PM CDT TEST, [facility] Sodium 140 133 - 144 10/23/2020 [facility] mmol/L 9:18 PM CDT TEST, [facility] Potassium 3.3 (L) 3.4 - 5.3 10/23/2020 [facility] mmol/L 9:18 PM CDT TEST, [facility] Glucose 88 70 - 99 10/23/2020 [facility] mg/dL 9:18 PM CDT TEST, [facility] Calcium Ionized 4.8 4.4 - 5.2 10/23/2020 [facility] mg/dL 9:18 PM CDT TEST, [facility] Hemoglobin 12.2 11.7 - 10/23/2020 [facility] 15.7 g/dL 9:18 PM CDT TEST, [facility] Hematocrit - 36 35.0 - 10/23/2020 [facility] POCT 47.0 %PCV 9:18 PM CDT TEST, [facility] Specimen Anatomical Collection Method Collection Time Receive d Time (Source) Location / / Volume Laterality 10/23/2020 8:59 PM 9:18 CDT PM CDT Twin Galvez MD LAB - BEAKER POCT Performing Organization Address City/State/ZIP Code Phon e Number [facility] POINT OF CARE TEST, [facility] POINT OF CARE TEST, [facility] Lipase (10/23/2020 8:57 PM CDT) P athologist Signature Lipase 95 73 - 393 10/23/2020 [place] U/L 9:41 PM CDT [facility] Specimen Anatomical Collection Method Collection Time Receive d Time (Source) Location / / Volume Laterality Blood specimen 10/23/2020 8:57 PM 021 9:16 (specimen) CDT PM CDT Twin Galvez MD LAB - BLOOD ORDERABLES Performing Organization Address City/State/ZIP Code Phon e Number M [facility] [address] [place] [address] [facility] [address] [place] [address], [place] [phone] (ABNORMAL) Comprehensive metabolic panel (10/23/2020 8:57 PM CDT) Analysis Performed At Patho logist Time Signature Sodium 140 133 - 144 10/23/2020 [facility] mmol/L 9:33 PM CDT [facility] Potassium 3.3 (L) 3.4 - 5.3 10/23/2020 [facility] mmol/L 9:33 PM CDT [facility] Chloride 105 96 - 110 10/23/2020 [facility] mmol/L 9:33 PM CDT [facility] Carbon Dioxide 27 20 - 32 10/23/2020 [facility] mmol/L 9:39 PM CDT [facility] Anion Gap 8 3 - 14 10/23/2020 [facility] mmol/L 9:39 PM CDT [facility] Glucose 89 70 - 99 10/23/2020 [facility] mg/dL 9:39 PM CDT [facility] Urea Nitrogen 8 7 - 30 10/23/2020 [facility] mg/dL 9:39 PM CDT [facility] Creatinine 0.60 0.50 - 10/23/2020 [facility] 1.00 mg/dL 9:39 PM CDT [facility] GFR Estimate >90 >60 10/23/2020 [facility] mL/min/{1. 9:39 PM CDT [facility] 73_[id number]} [facility] Comment: Non GFR Calc Starting 07/22/2018, serum creatinine ba sed estimated GFR (eGFR) will be calculated using the Chronic Kidney Dise [facility] Epidemiology Collaboration (CKD-EPI) equation. GFR Estimate If >90 >60 mL/min/{1.73_m2} 10/23/2020 9: 39 PM [facility] Comment: GFR Calc Starting 07/22/2018, serum creatinine ba sed estimated GFR (eGFR) will be calculated using the Chronic Kidney Dise [facility] Epidemiology Collaboration (CKD-EPI) equation. Calcium 9.0 8.5 - 10.1 mg/dL 10/23/2020 9:39 PM [facility] Bilirubin Total 0.6 0.2 - 1.3 mg/dL 10/23/2020 9:41 PM [facility] Albumin 3.9 3.4 - 5.0 g/dL 10/23/2020 9:41 PM [facility] Protein Total 7.3 6.8 - 8.8 g/dL 10/23/2020 9:41 PM [facility] Alkaline Phosphatase 103 40 - 150 U/L 10/23/2020 9:41 PM [facility] ALT 15 0 - 50 U/L 10/23/2020 9:41 PM [facility] AST 12 0 - 35 U/L 10/23/2020 9:41 PM [facility] Specimen Anatomical Collection Method Collection Time Receive d Time (Source) Location / / Volume Laterality Blood specimen 10/23/2020 8:57 PM 021 9:16 (specimen) CDT PM CDT Twin Galvez MD LAB - BLOOD ORDERABLES Performing Organization Address City/State/ZIP Code Phon e Number M [facility] [address] [address] [place] [id number] [place] [address] [facility] [address] [address], U [phone] CBC with platelets differential (10/23/2020 8:57 PM CDT) [facility] Method Time Signature WBC 8.4 4.0 - 10/23/2020 [facility] 11.0 9:20 PM CDT [facility] 10e9/L [facility] RBC Count 4.16 3.8 - 5.2 10/23/2020 [facility] 10e12/L 9:20 PM [facility] Hemoglobin 11.9 11.7 - 10/23/2020 [facility] 15.7 g/dL 9:20 PM [facility] Hematocrit 36.4 35.0 - 10/23/2020 [facility] 47.0 % 9:20 PM [facility] MCV 88 78 - 100 10/23/2020 [facility] fl 9:20 PM T [facility] MCH 28.6 26.5 - 10/23/2020 [facility] 33.0 pg 9:20 PM [facility] MCHC 32.7 31.5 - 10/23/2020 [facility] 36.5 g/dL 9:20 PM [facility] RDW 13.1 10.0 - 10/23/2020 [facility] 15.0 % 9:20 PM [facility] Platelet Count 375 150 - 450 10/23/2020 [facility] 10e9/L 9:20 PM [facility] Diff Method Automated 10/23/2020 [facility] Method 9:20 PM [facility] % Neutrophils 57.4 % 10/23/2020 [facility] 9:20 PM [facility] % Lymphocytes 29.9 % 10/23/2020 [facility] 9:20 PM [facility] % Monocytes 11.8 % 10/23/2020 [facility] 9:20 PM [facility] % Eosinophils 0.5 % 10/23/2020 [facility] 9:20 PM [facility] % Basophils 0.2 % 10/23/2020 [facility] 9:20 PM [facility] % Immature 0.2 % 10/23/2020 [facility] Granulocytes 9:20 PM [facility] Nucleated RBCs 0 0 /100 10/23/2020 [facility] 9:20 PM [facility] Absolute 4.8 1.6 - 8.3 10/23/2020 [facility] Neutrophil 10e9/L 9:20 PM CDT [facility] Absolute 2.5 0.8 - 5.3 10/23/2020 [facility] Lymphocytes 10e9/L 9:20 PM CDT [facility] Absolute 1.0 0.0 - 1.3 10/23/2020 [facility] Monocytes 10e9/L 9:20 PM CDT [facility] Absolute 0.0 0.0 - 0.7 10/23/2020 [facility] Eosinophils 10e9/L 9:20 PM CDT [facility] Absolute 0.0 0.0 - 0.2 10/23/2020 [facility] Basophils 10e9/L 9:20 PM CDT [facility] Abs Immature 0.0 0 - 0.4 10/23/2020 [facility] Granulocytes 10e9/L 9:20 PM CDT [facility] Absolute 0.0 10/23/2020 [facility] Nucleated RBC 9:20 PM CDT [facility] Specimen Anatomical Collection Method Collection Time Receive d Time (Source) Location / / Volume Laterality Blood specimen 10/23/2020 8:57 PM 021 9:16 (specimen) CDT PM CDT Twin Galvez MD LAB - BLOOD ORDERABLES Performing Organization Address City/State/ZIP Code Phon e Number [facility] [address] [place] [address] [facility] Urine Culture Aerobic Bacterial (10/23/2020 8:32 PM CDT) [facility] gist Method Time Signature Specimen Midstream INFECTIOUS Description Urine [facility] Culture Micro No growth 10/25/2020 INFECTIOUS 4:29 AM CDT [facility] Specimen (Source) Anatomical Collection Method Collection Time Re ceived Time Location / / Volume Laterality Examination of URINE SPECIMEN 10/23/2020 8:32 10/24/19 9:20 midstream urine OBTAINED BY CLEAN PM CDT PM CDT specimen CATCH PROCEDURE / (procedure) Unknown Twin Galvez MD LAB - MICRO GENERAL ORDERABL ES Performing Organization Address City/State/ZIP Code Phon e Number [facility] [address] [facility] [address] LABORATORY, [facility] (ABNORMAL) UA with Microscopic (10/23/2020 8:32 PM CDT) [facility] gist Method Time Signature Color Urine Yellow 10/23/2020 [facility] 9:34 PM CDT [facility] Appearance Urine Clear 10/23/2020 [facility] F 9:34 PM CDT [facility] Glucose Urine Negative NEG^Negat 10/23/2020 [facility] mindy mg/dL 9:34 PM CDT [facility] Bilirubin Urine Negative NEG^Negat 10/23/2020 [facility] mindy 9:34 PM CDT [facility] Ketones Urine Negative NEG^Negat 10/23/2020 [facility] mindy mg/dL 9:34 PM T [facility] Specific [place] 1.012 1.003 - 10/23/2020 [facility] F Urine 1.035 9:34 PM CDT [facility] Blood Urine Negative NEG^Negat 10/23/2020 [facility] mindy 9:34 PM T [facility] pH Urine 6.0 5.0 - 7.0 10/23/2020 [facility] pH 9:34 PM T [facility] Protein Albumin Negative NEG^Negat 10/23/2020 [facility] Urine mindy mg/dL 9:34 PM T [facility] Urobilinogen Normal 0.0 - 2.0 10/23/2020 [facility] mg/dL mg/dL 9:34 PM T [facility] Nitrite Urine Negative NEG^Negat 10/23/2020 [facility] mindy 9:34 PM T [facility] Leukocyte Negative NEG^Negat 10/23/2020 [facility] Esterase Urine mindy 9:34 PM T [facility] Source Midstream 10/23/2020 [facility] Urine 9:20 PM T [facility] WBC Urine 2 0 - 5 10/23/2020 [facility] /HPF 9:34 PM T [facility] RBC Urine 4 (H) 0 - 2 10/23/2020 [facility] /HPF 9:34 PM T [facility] Bacteria Urine Few (A) NEG^Negat 10/23/2020 [facility] mindy /HPF 9:34 PM CDT [facility] Squamous 1 0 - 1 10/23/2020 [facility] Epithelial /HPF /HPF 9:34 PM CDT [facility] Mucous Urine Present (A) NEG^Negat 10/23/2020 [facility] mindy /LPF 9:34 PM T [facility] Specimen (Source) Anatomical Collection Method Collection Time Re ceived Time Location / / Volume Laterality Examination of URINE SPECIMEN 10/23/2020 8:32 10/24/19 9:20 midstream urine OBTAINED BY CLEAN PM CDT PM CDT specimen CATCH PROCEDURE / (procedure) Unknown Twin Galvez MD LAB - URINE ORDERABLES Performing Organization Address City/State/ZIP Code Phon e Number [facility] [address] [place] [address] [facility] documented in this encounter Visit Diagnoses Diagnosis Gastroenteritis Other and unspecified noninfectious lee ann roenteritis and colitis documented in this encounter Administered Medications Inactive Administered Medications - up to 3 most recent administrations Medication Order MAR Action Action Date Dose Rate Site 0.9% sodium chloride BOLUS New Bag 10/23/2020 9:01 PM CDT 1,000 mLs 2000 mL/hr Intravenous, 1,000 mL (rounded from 1,034 mL = 20 mL/kg ? 51.7 kg), ONCE, at 2,000 mL/hr, Administer over 30 Minutes, On 10/23/20 at 2039, For 1 dose acetaminophen (TYLENOL) tablet 650 mg Given 10/23/2020 9:03 PM CDT 650 mg 650 mg, Oral, ONCE, On 10/23/20 at 2049, For 1 dose, Maximum acetaminophen dose from all sources = 75 mg/kg/day not to exceed 4 grams/day. ondansetron (ZOFRAN) injection 8 mg Given 10/23/2020 9:03 PM CDT 8 mg 8 mg, Intravenous, ONCE, Administer over 2-5 Minutes, On 10/23/20 at 2049, For 1 dose, May repeat in 30 minutes as needed, up to 3 doses. Irritant. For ordered IV doses 0.1-4 mg, give IV Push undiluted over 2-5 minutes. pantoprazole (PROTONIX) IV push injection 40 Given 10:43 PM CDT 40 mg mg 40 mg, Intravenous, ONCE, On 10/23/20 at 2154, For 1 dose, Irritant. Reconstitute each 40 mg vial with 10 mL NS. For doses 1-40 mg, give IV push over 2 minutes. For 80 mg doses, use 2x40 mg vials and give each vial IV push over 2 minutes. sodium chloride (PF) 0.9% PF flush 0.2-5 mL 0.2-5 mL, Intracatheter, EVERY 1 MIN PRN, line flush, post meds or blood draw, Starting on 10/23/20 at 2036, for per ipheral IV line flush post IV meds. 0.2-3 mL post IV meds. 0.2-5 mL post blood nissa w. Volume is dependent on catheter size. sodium chloride (PF) 0.9% PF flush 3 mL Given 10/23/2020 9:01 PM CDT 3 mLs 3 mL, Intracatheter, EVERY 8 HOURS, First dose on 10/23/20 at 2039, And Q1H PRN, to lock peripheral IV dormant line. documented in this encounter Active and Recently Administered Medications Times are shown in CDT. Scheduled Medication Order 10/21/2020 10/22/2020 10/23/2020 0.9% sodium chloride BOLUS (COMPLETED) 2100 (New Bag - Provider: Keily Reyes, RN)2205 (Stopped - Provider: Keily Reyes, RN) Intravenous, 1,000 mL (rounded from 1,03 4 mL = 20 mL/kg ? 51.7 kg), ONCE, at 2,000 mL/hr, Administer over 30 Minutes, 10/23/20 at 2039, For 1 dose acetaminophen (TYLENOL) tablet 650 mg (COMPLETED) 2102 (Given - Provider: Keily Reyes, RN) 650 mg, Oral, ONCE, 10/23/20 at 2049, For 1 dose, Maximum acetaminophen dose from all sources = 75 mg/kg/day not to exceed 4 grams/day. ondansetron (ZOFRAN) injection 8 mg (COMPLETED) 2102 (Given - Provider: Keily Reyes, RN) 8 mg, Intravenous, ONCE, Administer over 2-5 Minutes, 10/23/20 at 2049, For 1 dose, May repeat in 30 minutes as needed, up to 3 doses. Irritant. For ordered IV doses 0.1-4 mg, give IV Push undiluted over 2-5 minutes. pantoprazole (PROTONIX) IV push injection 40 mg (COMPLETED) 2242 (Given - Provider: Keily Reyes, RN) 40 mg, Intravenous, ONCE, 10/23/20 at 2155, For 1 dose, Irritant. Reconstitute each 40 mg vial with 10 mL NS. For doses 1-40 mg, give IV push over 2 minutes. For 80 mg doses, use 2x40 mg vials and give each vial IV push over 2 minutes. sodium chloride (PF) 0.9% PF flush 3 mL 2100 (Given - Provider: Keily Reyes, RN) 3 mL, Intracatheter, EVERY 8 HOURS, Firs t dose on 10/23/20 at 2039, And Q1H PRN, to lock peripheral IV dormant line. PRN Medication Order 10/21/2020 10/22/2020 10/23/2020 sodium chloride (PF) 0.9% PF flush 0.2-5 mL 0.2-5 mL, Intracatheter, EVERY 1 MIN PRN , line flush, post meds or blood draw, Starting 10/23/20 at 2036, for peripheral IV line flush post IV meds. 0.2-3 mL post IV meds. 0.2-5 mL post blood draw. Volume is dependent on catheter size. documented in this encounter Care Teams Senior Trial Attorney Relationship Specialty Start Date End Date Josh Carrero PCP - General Family Medicine 08/09/[address] [address] Julian Spencer MD MD Orthopedics 03/08/20 [facility] [place], [place] [address] [place] [address] Mariposa Atwood Assigned PCP 04/29/20 11/12/20 MD Nettie [address] [place], [place] [phone] Julian Spencer MD Assigned Musculoskeletal 05/27/[address] [place] [address] Eugenio Finney Assigned Pediatric 06/19/2005/07 MD David Specialist Provider [address] [place] [address] [address] [place], [place] [phone] documented as of this encounter
--- OUTSIDE RECORDS SUMMARY | 2022-06-18 11:56 | XMS_ITS | Encounter Summary ---
:2001 Author Organization [facility] Address [address] [place] [address]. [place] [address] Care Team Providers Name Role Phone Julian Spencer MD Unavailable Julian Spencer MD Unavailable Eugenio Finney MD Unavailable [phone] Josh Carrero Primary Care Provider Urbano Price MD Unavailable Encounter Details Date Type Department Care Team Description 11/23/2020 Care Coordination [facility] Mariposa Atwood Pediatric MD [facility] [address] [place] [id number] [facility] [phone] (Wo rk) [facility] [address] [place] [phone] Social History Tobacco Use Types Packs/Day Years Used Date Smoking Tobacco: Never Smokeless Tobacco: Never Alcohol Use Standard Drinks/Week Comments Not Currently 0 (1 standard drink = 0.6 oz pure alcoho l) Sex Assigned at Date Recorded Female 12/02/2020 1:42 PM CDT documented as of this encounter Progress Notes Mariposa Atwood MD - 11/23/2020 7:11 PM CDT Emailed Dakota's mother and copied Drs. Spencer and Nancy: Jina??platelet tests are back.?? They did not find any abnormal gene changes associated with platelet function problems. (There are some minor gene changes not known to be associated with platelet function problems) Dr. Cruz and I reviewed her labs, and we agree that we do not have a clearly demonstrated bleeding disorder. She could have a connective tissue component that makes her platelets challenged to work optimally, it could be medication- related when she was taking a lot of ibuprofen, and/or?? her??bleeding could be consistent with but not diagnostic of vWD. The latter is what we are left with saying after ALL the work??up she has had. The tranexamic acid medications she has received around her most recent surgeries worked well and should be used with surgeries or injuries. We are here when needed. documented in this encounter Plan of Treatment Not on filedocumented as of this encounter Visit Diagnoses Not on filedocumented in this encounter Care Teams Endodontist Relationship Specialty Start Date End Date Josh Carrero PCP - General Family Medicine 08/09/20 [place] [address] Julian Spencer MD MD Orthopedics 03/08/20 [address] [facility] [place], [place] [phone] Julian Spencer MD Assigned Musculoskeletal 05/27/[address] Provider [place], [place] [phone] Eugenio Finney Assigned Pediatric 06/19/2005/07 MD David Specialist Provider [address] [facility] [address] [place], [place] [phone] Urbano Price, Assigned PCP 11/13/20 [address] [place], [place] [phone] documented as of this encounter
--- OUTSIDE RECORDS SUMMARY | 2022-06-18 11:56 | XMS_ITS | Encounter Summary ---
:2001 Author Organization [facility] Address [address] [place] [address] Care Team Providers Name Role Phone Julian Spencer MD Unavailable Julian Spencer MD Unavailable Eugenio Finney MD Unavailable [phone] Josh Carrero Primary Care Provider Urbano Price MD Unavailable Encounter Details Date Type Department Care Team Description 12/12/2020 Travel Social History Tobacco Use Types Packs/Day [...] on filedocumented in this encounter Care Teams Chief Engineering Division Relationship Specialty Start Date End Date Josh Carrero PCP - General Family Medicine 08/09/[address] [address] Julian Spencer MD MD Orthopedics 03/08/[address] [place] [address] Julian Spencer MD Assigned Musculoskeletal 05/27/[address] [place] [address] Eugenio Finney Assigned Pediatric 06/19/2005/07 MD David Specialist Provider [address] [facility] [address] [place] [address] Urbano Price, Assigned PCP 11/13/20 [facility] [place] [address] documented as of this encounter
--- OUTSIDE RECORDS SUMMARY | 2022-06-18 11:56 | XMS_ITS | Encounter Summary ---
:2001 Author Organization [facility] Address [address] [place] [address]. [place] [address] Care Team Providers Name Role Phone Julian Spencer MD Unavailable Julian Spencer MD Unavailable Eugenio Finney MD Unavailable [phone] Josh Carrero Primary Care Provider Urbano Price MD Unavailable Reason for Referral Rehab Therapy Physical Therapy (Routine) - Closed Specialty Diagnoses / Procedures Referred By Contact Refer red To Contact Diagnoses History of fusion of spine for scoliosis Muscle spasm of back Julian Spencer MD [facility] [address] & Physical Therapy - [place], [place] [address] [place] [address] [place] [facility] [address] [place], [place] [phone] Phone: Fax: Referral ID Status Reason Start Date Expiration Date Visits Requ ested Visits Authorized [id number] Closed 12/05/2020 12/03/2021 10 10 Reason for Visit Reason Comments RECHECK DOS 08/09/20 Removal of inst rumental for transitional segment vert Encounter Details Date Type Department Care Team Description 12/01/2020 Office Visit [facility] Johanna, Julian History of fusion of spine for scoliosis (Primary Dx); Orthopedic Clinic MD Darell Muscle spasm of back [address] [place], [place] [phone] Social History Tobacco Use Types Packs/Day [...] Sign Reading Time Taken Comments Blood Pressure - - Pulse - - Temperature - - Respiratory Rate - - Oxygen Saturation - - Inhaled Oxygen Concentration - - Weight 54.6 kg (120 lb 4.8 oz) 12/01/2020 1:36 PM CDT Height 164.3 cm (5' 4.69) 12/01/2020 1:36 PM CDT Body Mass Index 20.21 12/01/2020 1:36 PM CDT documented in this encounter Progress Notes Ramesh Ring MD - 12/01/2020 1:30 PM CDT ORTHOPEDIC SPINE SURGERY FOLLOW UP VISIT REASON FOR VISIT: 3-month postop reinsertion of segmental spinal instrumentation T4-L4 with pseudoarthrosis repair at 4 levels (08/09/2020) SUBJECTIVE: Dakota returns to clinic today for 3-month follow-up. She reports she is having some lower right-sided back pain. She feels like it wakes her up at night. He is unable to get comfortable at times. Otherwise has been doing well. She is seen with her mother today. OBJECTIVE: Exam Ht 1.643 m (5' 4.69) Wt 54.6 kg (120 lb 4.8 oz) BMI 20.21 kg/m?? Gen: awake, alert, no acute distress Resp: NLB on RA CV: Skin wwp -Well-healed midline back scar -Spasm and tenderness palpation over the quadratus lumborum bilaterally -No significant tenderness over bilateral PSIS -Walks with a smooth gait. IMAGING Full standing eos AP and lateral standing spine x-ray were ordered and reviewed today. They reveal no apparent hardware failure. ASSESSMENT: 19-year-old female 3 month status post reinsertion of segmental spinal instrumentation T4-L4 with pseudoarthrosis repaired at 4 levels. Now with right-sided symptomatic quadratus lumborum spasm. Discussed with patient and her mother today that her symptoms localized to the quadratus lumborum. We attempted stretching exercises in the office today and these actually started to relieve her symptoms. Discussed that physical therapy can be helpful with this. Today, we discussed that it would be safe to start nonsteroidal anti-inflammatory medications if approved by hematology. At this point she continues to progress appropriately. We like to see her back in 3 months. We discussed that we would not consider hardware removal until at least 1 year postoperatively and would need evidence with a CT scan at that point to prove that she has healed. All their questions were answered today they are in a greement with the plan as listed below. PLAN: - Physical therapy referral for quadratus lumborum stretching - Follow up in 3 months - Okay for teriperatide from Dr. Spencer standpoint - Dakota and her mom will check with hematology if NSAIDs are okay -- but okay from Dr. Spencer's standpoint to start for pain control as needed. The patient was seen and discussed with Dr. Spencer. Ramesh Ring MD PGY-4 Orthopaedic Surgery Associated attestation - Julian Spencer MD - 12/03/2020 12:50 PM CDT I saw and evaluated the patient and developed the plan. Julian Spencer MD documented in this encounter Nursing Notes Formato, ZAC Orellana - 12/01/2020 1:30 PM CDT Reason For Visit: Chief Complaint Patient presents with ??? RECHECK DOS 08/09/20 Removal of instrumental for transitional segment vert Primary MD: Josh Carrero MD: Est [employer] Solder Stripper?No Occupation??Student. ?? Date of injury:??No Type of injury:??No. ?? Date of surgery:??Several surgeries Type of surgery:??Fusions and hardware removal, refused last February ?? 08/09/2020??Reinsertion of segmental spinal instrumentation T4 to L4 -22 modifier. Pseudoarthrosis repair at 4 levels. ?Image-guided spine surgery. Skin biopsy. Scar revision, 44 cm.? Smoker:??No Request smoking cessation information:??No Ht 1.643 m (5' 4.69) Wt 54.6 kg (120 lb 4.8 oz) BMI 20.21 kg/m?? Pain Assessment Patient Currently in Pain: Yes 0-10 Pain Scale: 8 Primary Pain Location: Back Oswestry (LOKESH) Questionnaire OSWESTRY DISABILITY INDEX 12/01/2020 Count 9 Sum 26 Oswestry Score (%) 57.78 Some recent data might be hidden Visual Analog Pain Scale Back Pain Scale 0-10: 8 Right leg pain: 0 Left leg pain: 0 Neck Pain Scale 0-10: 0 Right arm pain: 0 Left arm pain: 0 Promis 10 Assessment PROMIS 10 12/01/2020 In general, would you say your health is: Excellent In general, would you say your quality of life is: Fair In general, how would you rate your physical health? Poor In general, how would you rate your mental health, including your mood and your ability to think? Good In general, how would you rate your satisfaction with your social activities and relationships? Good In general, please rate how well you carry out your usual social activities and roles Good To what extent are you able to carry out your everyday physical activities such as walking, climbingstairs, carrying groceries, or moving a chair? A little How often have you been bothered by emotional problems such as feeling anxious, depressed or irritable? Never How would you rate your fatigue on average? Severe How would you rate your pain on average? 0 = No Pain to 10 = Worst Imaginable Pain 9 In general, would you say your health is: 5 In general, would you say your quality of life is: 2 In general, how would you rate your physical health? 1 In general, how would you rate your mental health, including your mood and your ability to think? 3 In general, how would you rate your satisfaction with your social activities and relationships? 3 In general, please rate how well you carry out your usual social activities and roles. (This includes activities at home, at work and in your community, and responsibilities as a parent, child, spouse,employee, friend, etc.) 3 To what extent are you able to carry out your everyday physical activities such as walking, climbingstairs, carrying groceries, or moving a chair? 2 In the past 7 days, how often have you been bothered by emotional problems such as feeling anxious, depressed, or irritable? 1 In the past 7 days, how would you rate your fatigue on average? 4 In the past 7 days, how would you rate your pain on average, where 0 means no pain, and 10 means worst imaginable pain? 9 Global Mental Health Score 13 Global Physical Health Score 7 PROMIS TOTAL - SUBSCORES 20 Some recent data might be hidden Reyna Chávez LPN documented in this encounter Plan of Treatment Scheduled Referrals Name Type Priority Associated Diagnoses Order [facility] PHYSICAL THERAPY Referral Routine History of fusion of Exp ected: 12/01/2020, REFERRAL spine for scolio sis Expires: 12/01/2021 (External-Prints) Muscle spasm of back documented as of this encounter Visit Diagnoses Diagnosis History of fusion of spine for scoliosis - Primary Muscle spasm of back Other symptoms referable to back documented in this encounter Care Teams Autism Specialist Relationship Specialty Start Date End Date Josh Carrero PCP - General Family Medicine 08/09/[address] [phone] Julian Spencer MD MD Orthopedics 03/08/[address] [place] [phone] Julian Spencer MD Assigned Musculoskeletal 05/27/[address] [place] [address] Provider [place], [place] [phone] Eugenio Finney Assigned Pediatric 06/19/20/ MD David Specialist Provider [address] [facility] 96 [place] [address] Urbano Price, Assigned PCP 11/13/20 [address] [place] [address] documented as of this encounter
--- OUTSIDE RECORDS SUMMARY | 2022-06-18 11:56 | XMS_ITS | Encounter Summary ---
:2001 Author Organization [facility] Address [address] [place] [address]. [place] [address] Care Team Providers Name Role Phone Julian Spencer MD Unavailable Julian Spencer MD Unavailable Eugenio Finney MD Unavailable [phone] Josh Carrero Primary Care Provider Urbano Price MD Unavailable Reason for Visit Rehab Therapy Physical Therapy (Routine) - Closed Specialty Diagnoses / Procedures Referred By Contact Refer red To Contact Diagnoses History of fusion of spine for scoliosis Muscle spasm of back Julian Spencer MD [facility] [address] & Physical Therapy - [place], [place] [address] [place] [address] David Sanderson [facility] [address] [place] [phone] Phone: Fax: Referral ID Status Reason Start Date Expiration Date Visits Requ ested Visits Authorized [id number] Closed 12/05/2020 12/03/2021 10 10 Encounter Details Date Type Department Care Team Description 03/21/[address] [facility] [place], Aftercare following surgery of the musculoskeletal system (Primary Dx); Rehabilitation JUDY Jones History of fusion of spine for scoliosis ; Services [place] [address] DAVID Chronic right-sided low back pain without sciatica; [address] [place] [address] [phone] Social History Tobacco Use Types Packs/Day Years [...] encounter Progress Notes Robert Mcclendon, PT - 03/21/2021 8:40 AM CDT PROGRESS REPORT Progress reporting period is from eval to 03/21/21. SUBJECTIVE Subjective changes noted by patient: . Subjective: Pt returns to therapy on 03/21/21 after most recent visit on 12/12/20. 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 She report fair/poor compliance with previously issued HEP. Current pain level is Current Pain level: 4/10. Previous pain level was Initial Pain level: 8/10. Changes in function: Yes (See Goal flowsheet attached for changes in current functional level) Adverse reaction to treatment or activity: None OBJECTIVE Changes noted in objective findings: Yes, Objective: LROM: flexion 50% with end range tightness she attributes to rods preventing her from moving more, Ext 80+% with end range tightness. R and and L SBing 50%. ASSESSMENT/PLAN Updated problem list and treatment plan: Diagnosis 1: LBP following Flores humaira replacement Pain - self management, education, directional preference [...] been instructed in a home treatment program. I have [...] Name Priority Date/Time Associated Diagnosis Comme nts [place] THERAPEUTIC Routine 03/21/2021 9:55 AM Aftercare following EXERCISES. EA 15 MIN CDT surgery of the musculoskeletal system History of fusion of spine for scolio sis Chronic right-sided low back pain without sciatica Muscle spasm of back documented in this encounter Visit Diagnoses Diagnosis Aftercare following surgery of the muscu loskeletal system - Primary Aftercare [facility] History of fusion of spine for scoliosis Chronic right-sided low back pain withou t sciatica Muscle spasm of back Other symptoms referable to back documented in this encounter Care Teams Maxillofacial Pathology Relationship Specialty Start Date End Date Josh Carrero PCP - General Family Medicine 08/09/[address] [address] Julian Spencer MD MD Orthopedics 03/08/[address] [place], [place] [address] Julian Spencer MD Assigned Musculoskeletal 05/27/[address] Provider [place], [place] [address] Eugenio Finney Assigned Pediatric 06/19/2005/07 MD David Specialist Provider [address] [place] [address] 96 [place] [address] Urbano Price, Assigned PCP 11/13/20 [address] [place] [address] documented as of this encounter
--- OUTSIDE RECORDS SUMMARY | 2022-06-18 11:56 | XMS_ITS | Encounter Summary ---
:2001 Author Organization [facility] Address [address] [place] [address] Care Team Providers Name Role Phone Julian Spencer MD Unavailable Julian Spencer MD Unavailable Eugenio Finney MD Unavailable [phone] Josh Carrero Primary Care Provider Urbano Price MD Unavailable Reason for Referral Diagnostic Imaging XR (Routine) - Closed Specialty Diagnoses / Procedures Referred By Contact Refer red To Contact Diagnoses S/P spinal surgery Julian Spencer MD Procedures XR Spine Complete Scoliosis 2 Views [address] [place] [address] 4 Referral ID Status Reason Start Date Expiration Date Visits Requ ested Visits Authorized [id number] Closed 11/28/2020 11/28/2021 1 1 Diagnostic Imaging XR (Routine) - Closed Specialty Diagnoses / Procedures Referred By Contact Refer red To Contact Diagnoses S/P spinal surgery Julian Spencer MD Procedures XR Six Foot Standing Extremities [address] [place], [place] [address] Referral ID Status Reason Start Date Expiration Date Visits Requ ested Visits Authorized [id number] Closed 11/28/2020 11/28/2021 1 1 Encounter Details Date Type Department Care Team Description 11/28/2020 Orders Only [facility] Julian Spencer S/P spinal surgery [facility] MD [place] (Primary Dx) [address] [place] [address] [address] 4[address] [place] [phone] Social History Tobacco Use Types Packs/Day [...] are i n the results section. XR SPINE COMPLETE Routine 12/01/2020 1:26 PM [...] No substantial global coronal imbalance. Sagittal Vertical [place] (A vertical line drawn from the center [...] No substantial global coronal imbalance. Sagittal Vertical [place] (A vertical line drawn from the center [...] Spencer MD IMG DIAGNOSTIC IMAGING ORDER DANO XR Spine Complete Scoliosis 2 Views (12/01/2020 [...] as detailed above . STEFANIE ABREU DO Narrative 12/01/2020 4:25 PM CDT Exam: [...] No substantial global coronal imbalance. Sagittal Vertical [place] (A vertical line drawn from the center [...] No substantial global coronal imbalance. Sagittal Vertical [place] (A vertical line drawn from the center [...] spinal surgery - Primary Other postprocedural status documented in this encounter Care Teams Answering Service Telephone Operator Relationship Specialty Start Date End Date Josh Carrero PCP - General Family Medicine 08/09/20 [place] [address] Julian Spencer MD MD Orthopedics 03/08/[address] [place], [place] [phone] Julian Spencer MD Assigned Musculoskeletal 05/27/[address] Provider [place], [place] [phone] Eugenio Finney Assigned Pediatric 06/19/2005/07 MD David Specialist Provider [address] [facility] [address] [place], [place] [phone] Urbano Price, Assigned PCP 11/13/20 [facility] [place] [address] documented as of this encounter
--- OUTSIDE RECORDS SUMMARY | 2022-06-18 11:56 | XMS_ITS | Encounter Summary ---
:2001 Author Organization [place] [facility] Address [address] [place] [address] Care Team Providers Name Role Phone Julian Spencre MD Unavailable Julian Spencer MD Unavailable Eugenio Finney MD Unavailable [phone] Josh Carrero Primary Care Provider Urbano Price MD Unavailable Reason for Referral Diagnostic Imaging XR (Routine) - Closed Specialty Diagnoses / Procedures Referred By Contact Refer red To Contact Diagnoses S/P spinal surgery Reta Escalante PA-C Procedures XR Spine Complete Scoliosis 2 Views [facility] [place] [id number] 4 Referral ID Status Reason Start Date Expiration Date Visits Requ ested Visits Authorized [id number] Closed 04/05/2021 04/05/2022 1 1 iagnostic Imaging XR (Routine) - Closed Specialty Diagnoses / Procedures Referred By Contact Refer red To Contact Diagnoses S/P spinal surgery Rtea Escalante PA-C Procedures XR Six Foot Standing Extremities [facility] [place] [id number] 4 Referral ID Status Reason Start Date Expiration Date Visits Requ ested Visits Authorized [id number] Closed 04/05/2021 04/05/2022 1 1 Encounter Details Date Type Department Care Team Description 04/05/2021 Orders Only [facility] Reta Escalante PA-C S/P spinal surgery [facility] [address] [place] [address] (Primary Dx) [id number] [place] [address] [place] [address] Social History Tobacco Use Types [...] Name Priority Date/Time Associated Comments Diagnosis XR SPINE COMPLETE Routine 04/11/2021 2:29 PM S/P spinal surger y Results for this SCOLIOSIS 2 VIEWS CDT procedure are in the results section. XR SIX FOOT STANDING Routine 04/11/2021 2:28 PM S/P spinal teresa jenaro Results for this EXTREMITIES CDT procedure are i n the results section. documented in this encounter Results XR Spine Complete Scoliosis 2 Views (04/11/2021 2:29 PM CDT) Anatomical Region Laterality Modality Spine [...] Weight bearing axis as detailed above . CARLITOS MICHEL MD Narrative 04/11/2021 4:19 PM CDT [...] No substantial global coronal imbalance. Sagittal Vertical [place] (A vertical line drawn from the center [...] No acute osseous abnorma lity. Procedure Note Carlitos Michel MD - 04/11/2021Fo rmatting of this [...] No substantial global coronal imbalance. Sagittal Vertical [place] (A vertical line drawn from the center [...] Weight bearing axis as detailed above . CARLITOS MICHEL MD Reta Escalante PA-C IMHao DIAGNOSTIC IMAGING ORDER DANO XR Six Foot Standing Extremities (04/11/2021 2:28 [...] Weight bearing axis as detailed above . CARLITOS MICHEL MD Narrative 04/11/2021 4:19 PM CDT [...] No substantial global coronal imbalance. Sagittal Vertical [place] (A vertical line drawn from the center of C7 (calr line) to the posterosuperior aspe ct of [...] No acute osseous abnorma lity. Procedure Note Carlitos Michel MD - 04/11/2021Fo rmatting of this [...] No substantial global coronal imbalance. Sagittal Vertical [place] (A vertical line drawn from the center [...] Weight bearing axis as detailed above . CARLITOS MICHEL MD Reta Escalante PA-C IMHao DIAGNOSTIC IMAGING ORDER DANO documented in this encounter Visit Diagnoses Diagnosis S/P spinal surgery - Primary Other postprocedural status documented in this encounter Care Teams Director Of Marketing Operations Relationship Specialty Start Date End Date Josh Carrero PCP - General Family Medicine 08/09/[address] [address] Julian Spencer MD MD Orthopedics 03/08/[address] [place] [address] Julian Spencer MD Assigned Musculoskeletal 05/27/[address] Provider [place], [place] [phone] Eugenio Finney Assigned Pediatric 06/19/2005/07 MD David Specialist Provider [address] [facility] [address] [place] [address] Urbano Price, Assigned PCP 11/13/20 [address] [facility] [place], [place] [phone] documented as of this encounter
--- OUTSIDE RECORDS SUMMARY | 2022-06-18 11:56 | XMS_ITS | Encounter Summary ---
:2001 Author Organization [facility] Address [address] [place] [address]. [place] [address] Care Team Providers Name Role Phone Julian Spencer MD Unavailable Julian Spencer MD Unavailable Eugenio Finney MD Unavailable [phone] Josh Carrero Primary Care Provider Urbano Price MD Unavailable Joe Leo MD Unavailable Reason for Visit Diagnostic Imaging XR (Routine) - Closed Specialty Diagnoses / Procedures Referred By Contact Refer red To Contact Diagnoses S/P spinal surgery Reta Escaalnte PA-C Procedures XR Spine Complete Scoliosis [address] [place] [address] 4 Referral ID Status Reason Start Date Expiration Date Visits Requ ested Visits Authorized [id number] Closed 04/05/2021 04/05/2022 1 1 Encounter Details Date Type Department Care Team Description 04/11/2021 Ancillary Procedure [facility] Alejandro Cuadra PA-C Imaging Center Xray [address] [place] [address] [facility] [address] [facility] [place] [address] Social History Tobacco Use Types Packs/Day Years [...] Diagnosis Comme nts XR SPINE COMPLETE Routine 04/11/2021 2:29 PM [...] No substantial global coronal imbalance. Sagittal Vertical [place] (A vertical line drawn from the center [...] No substantial global coronal imbalance. Sagittal Vertical [place] (A vertical line drawn from the center [...] . CARLITOS MICHEL MD Reta Escalante PA-C IMG DIAGNOSTIC IMAGING ORDER DANO documented in this encounter Visit Diagnoses Not on filedocumented in this encounter Care Teams Lift Driver Relationship Specialty Start Date End Date Josh Carrero PCP - General Family Medicine 08/09/20 [place] [address] Julian Spencer MD Orthopedics 03/08/20 MD [place] [address] [place] [address] Julian Spencer Assigned Musculoskeletal 05/27/20 MD [place] Provider [address] [facility]00 [place], [place] [phone] Eugenio Finney Assigned Pediatric 06/19/2005/07 MD David Specialist Provider [address] [facility] 96 [place], [place] [phone] Urbano Price Assigned PCP 11/13/20 MD [facility] [place], [place] [phone] Joe Leo MD Physical Medicine and 04/11/[address] [place] [address] documented as of this encounter
--- OUTSIDE RECORDS SUMMARY | 2022-06-18 11:56 | XMS_ITS | Encounter Summary ---
:2001 Author Organization [facility] Address [address] [place] [address]. [place] [address] Care Team Providers Name Role Phone uJlian Spencer MD Unavailable Julian Spencer MD Unavailable Eugenio Finney MD Unavailable [phone] Josh Carrero Primary Care Provider Urbano Price MD Unavailable Joe Leo MD Unavailable Reason for Referral Consultation (Routine) - Closed Specialty Diagnoses / Procedures Referred By Contact Refer red To Contact Diagnoses Chronic bilateral low back pain without sciatica Reta Esclaante PA-C [address] [place] [address] 4 Referral ID Status Reason Start Date Expiration Date Visits Requ ested Visits Authorized [id number] Closed 04/11/2021 04/11/2022 1 1 Reason for Visit Reason Comments RECHECK Increasing back pain. Surger y with Dr. Spencer 08/09/20. Encounter Details Date Type Department Care Team Description 04/11/2021 Office Visit [facility] Reta Escalante PA-C Chronic bilateral low back pain without sciatica (Primary Dx); Orthopedic Clinic [address] [place] [address] Acute post-operative pain; [place], [place] Inflammation of operative in cision [address] [place] [address] 4th [place] [address] Social History Tobacco Use Types [...] documented as of this encounter Progress Notes Reta Escalante PA-C - 04/11/2021 3:00 PM CDT REASON FOR VISIT: RECHECK REFERRING PHYSICIAN: No ref. provider found PRIMARY CARE PHYSICIAN: Josh Carrero HISTORY OF PRESENT ILLNESS: Dakota Casiano is a 20 year old female who presents for follow-up on back pain. 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 Cobos, crosslink removal for pain 07/2016 , removal right T8 hook 2018, revision of posterior spinal fusion T3-L4 02/[address] Cobos, removal of Crosslink by Dr. Muro at [facility]. Dr. 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 She last saw Dr. Spencer 12/01/2020 and was referred for PT for quadratus lumborum stretching. She has continued R>L back pain, the same location as last time. She is doing stretches, heating pad without relief. She cannot sleep more than 1 hour. Also has pain on anterior thighs bilaterally, especially at night. This leg pain has been present x 4 years and worsened after last surgery. She taco forteo injection, Ca, Vit D. She feels she is worse now than a few months ago. Muscle relaxants have helped in the past, flexeril and valium. She is taking hydrocodone 5 mg every 6-8 hours recently prescribed by PCP. She is using topical creams, massage, cupping, and TENS unit. She has seen peds pain mgmt in the past but was frustrated with recommendations. Oswestry (LOKESH) Questionnaire OSWESTRY DISABILITY INDEX 04/11/2021 Count 9 Sum 27 Oswestry Score (%) 60 Some recent data might be hidden PROMIS-10 Scores Global Mental Health Score: (P) 10 Global Physical Health Score: (P) 9 PROMIS TOTAL - SUBSCORES: (P) 19 Visual Analog Scale (VAS) Questionnaire VISUAL ANALOG PAIN SCALE 04/11/2021 Back Pain Scale 0-10 8 Right leg pain 0 Left leg pain 0 Neck Pain Scale 0-10 - Right arm pain - Left arm pain - PHYSICAL EXAM: ??? Vitals: There were no vitals taken for this visit. ??? Constitutional: Patient is healthy, well-nourished and appears stated age. ??? Respiratory: Patient is breathing normally and in no respiratory distress. ??? Skin: No suspicious rashes or lesions. Incision well healed ??? Gait: Non-antalgic gait without use of assistive devices. ??? Neurologic - Deep tendon reflexes +2 patella and ankle. ??? Musculoskeletal: Strength: 5/5 iliopsoas, 5/5 quadriceps, 5/5 hamstrings, 5/5 anterior tibialis,5/5 extensor hallucis longus, 5/5 gastrocnemius. ? ? Spine: overall good sagittal balance. Significant tenderness and spasm of right > left quadratus lumborum. No facet tenderness at L4-L5, L5-S1. IMAGING: The following imaging was independently reviewed and interpreted in clinic. See full radiologic report in chart. XR EOS Scoliosis 04/11/2021 Post-op changes of T4-L4 posterior fusion. No hardware failure or loosening of hardware. Mild left thoracic curve and right lumbar curve. No sagittal or coronal imbalance. 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 Spencer DISCUSSION/PLAN: 1. Will trial flexeril 10 mg hs and celebrex 100 mg BID. 2. PMR referral for Dr. Leo for quadratus lumborum muscle block 3. Discussed with Dr. Spencer, who discussed her case Dr. Mariposa Atwood (hematology) and her suggestion is a unit of platelets before injections. The transfusion can be given as an outpatient and will begood for several days. 4. Hold off on advanced imaging given we were waiting until August to get a CT to assess bony fusion for possible hardware removal. All questions and concerns were answered to the patient's apparent satisfaction before leaving the clinic. We used models, the patients imaging, and drawn diagrams to explain the pathophysiology, and treatments options including surgical and non-surgical. The above plan was discussed with Dr. Spencer. Respectfully, Reta Escalante PA-C Total time spent with patient is 25 minutes. documented in this encounter Plan of Treatment Scheduled Referrals Name Type Priority Associated Diagnoses Order S chedule PMR Referral Referral Routine Chronic bilateral low back E xpected: 04/11/2021 pain without sciatica (Appro ximate), Expires: 04/11/2022 documented as of this encounter Visit Diagnoses Diagnosis Chronic bilateral low back pain without sciatica - Primary Acute post-operative pain Other acute postoperative pain Inflammation of operative incision documented in this encounter Care Teams Lens Molder Relationship Specialty Start Date End Date Josh Carrero PCP - General Family Medicine 08/09/[address] [address] Julian Spencer MD Orthopedics 03/08/20 MD [place] [address] [place] [address] Julian Spencer Assigned Musculoskeletal 05/27/20 MD [place] Provider [address] [facility]00 [place] [address] Eugenio Finney Assigned Pediatric 06/19/2005/07 MD David Specialist Provider [address] [facility] 96 [place], [place] [address] Urbano Price Assigned PCP 11/13/20 MD [place]eb[facility] [address] [place] [address] Joe Leo MD Physical Medicine and 04/11/[address] [place] [address] [address] [place] [address] documented as of this encounter
--- OUTSIDE RECORDS SUMMARY | 2022-06-18 11:57 | XMS_ITS | Encounter Summary ---
:2000 Author Organization [place] Address [address] [facility] [place] [address] Care Team Providers Name Role Phone Julian Spencer MD Unavailable Mariposa Atwood MD Unavailable [phone] Julian Spencer MD Unavailable Eugenio Finney MD Unavailable [phone] Josh Carrero Primary Care Provider Reason for Visit Reason Comments RECHECK Bone healing concerns Encounter Details Date Type Department Care Team Description 10/13/2020 Office Visit [facility] Dash Cardozo [facility] ed osteoporosis without current pathological fracture (Primary Dx); [facility] Pediatric MD Esteban Neuromuscular scoliosis of thoracolumbar region; Specialty Clinic [address] [facility] S/P spinal fusion; [address] [place] [address] Pseudarthrosis following spinal fusion; Floor [place], [place] History of inhaled steroid t herapy; [facility] [address] [address] Pancreatic insufficiency; [place], [place] [phone] Excessive me nstruation at puberty; [phone] (Work) POTS (postural orthostatic tachycardia s yndrome) [phone] Social History Tobacco Use Types Packs/Day Years [...] Sign Reading Time Taken Comments Blood Pressure 112/73 10/13/2020 2:33 PM GROCERY ASSOCIATE Pulse 72 10/13/2020 2:33 PM GROCERY ASSOCIATE Temperature - - Respiratory Rate - - Oxygen Saturation - - Inhaled Oxygen Concentration - - Weight 55.6 kg (122 lb 9.2 oz) 10/13/2020 2:33 PM GROCERY ASSOCIATE Height 161.1 cm (5' 3.43) 10/13/2020 2:33 PM GROCERY ASSOCIATE Body Mass Index 21.42 10/13/2020 2:33 PM GROCERY ASSOCIATE documented in this encounter Patient Instructions Patient InstructionsTommyMagdalene pina - 10/13/2020 2:45 PM CST Thank you for choosing [facility]. It was a pleasure to see you today. Providers: [place]: Ramon Cardozo MD PhD Keily Oneill [facility] Care Coordinators (non urgent calls) Mon- Fri: Catalina Tay MS RN [phone] Eden JAMESN RN N [phone] Case Manager fax: [phone] Growth Hormone: Sharda John CMA [phone] Please leave a message on one line only. Calls will be returned as soon as possible once your physician has reviewed the results or questions. Medication renewal requests must be faxed to the main office by your pharmacy. Allow 3-4 days for completion. Mailing Address: Pediatric Endocrinology [address] [address] Test results may be available via [employer] prior to your provider reviewing them. Your provider will review results as soon as possible once all labs are resulted. Abnormal results will be communicated to you via MyChart, telephone call or letter. Please allow 2 -3 weeks for processing/interpretation of most lab work. If you live in the [facility] area and need labs, we request that the labs be done at an [facility] facility. [facility] locations are listed on the [email or web address] website. Please call that site for a lab time. For urgent issues that cannot wait until the next business day, call [phone] and ask for the Pediatric Junior Graphic Designer marketing operations consultant. Scheduling: Pediatric Call Center: [phone] for Explorer - 12th floor [facility] - 3rd floor [address] [facility] 9th floor [facility] [phone] (for stimulation tests) Radiology/ [phone] [employer] Services: [phone] Please sign up for [employer] for easy and HIPAA compliant confidential communication. Sign up at the clinic credit front office developer or go to [email or web address] Patients must be seen in clinic annually to continue to receive prescriptions and test results. Patients on growth hormone must be seen twice yearly. Your child has been seen in the [...] diagnosis. Please refer to the CDC and state department of health websites for information regarding precautions surrounding COVID-19. At this time, there is no evidence to suggest that your child's endocrine diagnosis increases risk for sarita COVID-19. This is an ongoing area of research, however,and we will update you as further research becomes available. Instructions: We will check labs today to see if we can understand if there is a particular reason why Dakota's bones are not healing well. Depending upon these results, we will discuss whether treatment with parathyroid hormone or other therapy might be beneficial. ERY ASSOCIATE documented in this encounter Progress Notes Dash Cardozo MD - 10/13/2020 2:45 PM CST Pediatric Endocrinology Initial Consultation Patient: Dakota Casiano Date of : 2000 Age: 20year 2month old Date of Visit: Oct 13, [address] Spencer: I had the pleasure of seeing your patient, Dakota Casiano in the Pediatric Endocrinology Clinic, [facility], on Oct 13, 2020 for initial consultation regarding poor healing following spinal fusion. Problem list: Patient Active Problem List Diagnosis Date Noted ??? Neuropathic pain 08/31/2020 Priority: Medium ??? S/P spinal fusion 08/31/2020 Priority: Medium ??? Inflammation of operative incision 08/31/2020 Priority: Medium ??? Platelet disorder (H) 08/16/2020 Priority: Medium ??? Chronic musculoskeletal pain 08/10/2020 Priority: Medium Class: Chronic ??? Chronic pain syndrome 08/10/2020 Priority: Medium ??? Scoliosis 07/21/2020 Priority: Medium Added automatically from request for surgery [id number] ??? Painful orthopaedic hardware (H) 07/21/2020 Priority: Medium Added automatically from request for surgery [id number] ??? Neuromuscular scoliosis of thoracolumbar region 05/05/2020 Priority: Medium ??? Other secondary scoliosis, thoracolumbar region 05/05/2020 Priority: Medium ??? Tethered cord (H) 05/05/2020 Priority: Medium HPI: Dakota Casiano is a 20 year old female with a history of [...] healing as well as possible therapies. She is having a lot of pain. In the past, they have removed screws and crosslinks. In the past the reactions would show up within 3-4 months of the surgery. She is having one area that they are concerned about now that is at the top of the spine. They report that Dr. Spencer feels it might be a screw. She currently has back pain every day (level 6 or greater) with more severe back pain about two days per week. She had two fractures, one of each of ankle that required a boot brace. She was running and rolled her ankle for one. She also fell off the monkey bars. She fell on her bottom on the wet kitchen floor and broke tail bone. She has had a low calcium in the past and has been on calcium supplementation for 2 years. She is currently taking Tums 750 mg daily and Calcium citrate 500 mg daily. She is taking 2000 international unit(s) vitamin D daily. She was on 6000 international unit(s) vitamin D daily from 2017 until March 2020. She gets milk in her cereal and occasional ice cream and yogurt. She has lactose intolerance. She had menarche at 13 years of age. Due to severe menorrhagia she has been on oral contraceptive pills since 14 years of age and has no regular cycle. I have reviewed the available past laboratory evaluations, imaging studies, and medical records available to me at this visit. I have reviewed the Dakota's growth chart. History was obtained from patient and patient's mother. Both provided about 50% of the history of symptoms, mom provided the majority of the past medical history. History: Gestational age Term Mode of delivery Vaginal Complications during Uncomplicated. weight 10 lb 2 oz length 20 inches course Uncomplicated. Normal developmental milestones except slight delay rolling due to David harness. 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 She is living at home. Family History: [...] fragility fractures. No Family History of arthritis. Allergies: Allergies Allergen Reactions ??? Dust Mites Itching Other reaction(s): Itching,Watering Eyes ??? Hydromorphone Other (See Comments) All forms (enteral and IV) cause confusion, delirium, aggression. Avoid. Medications: Current Outpatient Medications Medication Sig Dispense Refill ??? acetaminophen (TYLENOL) 500 MG tablet Take 1000 mg every six hours for 2 days after discharge, then as needed (every six hours) after that. ??? celecoxib (CELEBREX) 100 MG capsule Take 1 capsule (100 mg) by mouth 2 times daily 60 capsule 0 ??? cholecalciferol (VITAMIN D3) 125 mcg (5000 units) capsule Take by mouth daily ??? diazepam (VALIUM) 2 MG tablet Take 1 tablet (2 mg) by mouth every 6 hours as needed for anxiety 30 tablet 0 ??? diazepam (VALIUM) 2 MG tablet Take 1 tablet (2 mg) by mouth every 6 hours as needed for muscle spasms 10 tablet 0 ??? Lidocaine (LIDOCARE) 4 % Patch Place 1-2 patches on skin over painful area. Leave on for 12 hours, then keep off for 12 hours. Repeat daily. 30 patch 3 ??? naloxone (NARCAN) 4 MG/0.1ML nasal spray Greentop 1 spray (4 mg) into one nostril alternating nostrils as needed for opioid reversal every 2-3 minutes until assistance arrives 0.2 mL 0 ??? Norethindrone Acet-Ethinyl Est (LOESTRIN 08/24, , PO) Take by mouth daily ??? oxyCODONE (ROXICODONE) 5 MG tablet Take 1 tablet (5 mg) by mouth every 6 hours as needed for pain 30 tablet 0 ??? polyethylene glycol (MIRALAX) 17 GM/Dose powder Take 17 g by mouth daily 510 g 11 ??? pregabalin (LYRICA) 150 MG capsule Take 1 capsule (150 mg) by mouth 2 times daily 60 capsule 3 ??? sertraline (ZOLOFT) 100 MG tablet Take 100 mg by mouth daily ??? tranexamic acid (LYSTEDA) 650 MG tablet Take 1.5 tablets every six hours as needed for persistent bleeding. 15 tablet 0 ??? valACYclovir (VALTREX) 1000 mg tablet Take 1 tablet (1,000 mg) by mouth 3 times daily for 7 days21 tablet 0 Review of Systems: Gen: Negative Eye: Negative ENT: History of frequent otitis media with tubes x 2. Still complains intermittently of the sensation of fullness or fluid in ears. She has a history of frequent dental [...] salt pills. She started having it on Super Bowsaturday. She has had some fainting episodes since then but is more self aware. Gastrointestinal: She had issues of abdominal pain [...] symptoms of hypoglycemia. Physical Exam: Blood pressure 112/73, pulse 72, height 1.611 m (5' 3.43), weight 55.6 kg (122 lb 9.2 oz). Blood pressure percentiles are not available for patients who are 18 years or older. Height: 161.1 cm (63.43) 37 %ile (Z= -0.34) based on CDC (Girls, 2-20 Years) [id number] data based on Stature recorded on 10/13/2020. Weight: 55.6 kg (actual weight), 41 %ile (Z= -0.22) based on CDC (Girls, 2-20 Years) [id number] data using vitals from 10/13/2020. BMI: Body mass index is 21.42 kg/m??. 48 %ile (Z= -0.05) based on CDC (Girls, 2- 20 Years) BMI-for-age based on BMI available as of 10/13/2020. GENERAL: She is alert and in no apparent distress. HEENT: Head is normocephalic and atraumatic. Pupils equal, round and reactive to light and accommodation. The sclerae were not blue or jauregui. Extraocular movements are intact. Funduscopic exam shows crisp disc margins and normal venous pulsations. Nares are clear. Oropharynx shows normal dentition [...] Scoliosis status post surgical correction. There is notenderness to palpation or percussion of the lumbar or lower thoracic spine. In the upper thoracic area there was some discomfort to palpation. NEUROLOGIC: Cranial nerves II-XII tested and intact. Deep tendon reflexes 2+ and symmetric. SKIN: Minimal facial acne. Small caf?? au lait macule above the umbilicus. Small caf?? au lait macule on inner aspect of left elbow. No axillary freckling. Laboratory results: Results for orders placed or performed in visit on 10/13/20 N telopeptide cross linked urine Status: None Result Value Ref Range N-Telopeptide X-Link Urine 41 BCE/mM Creatinine Ur/Vol 90 mg/dL Magnesium Status: None Result Value Ref Range Magnesium 2.2 1.6 - 2.3 mg/dL Phosphorus Status: None Result Value Ref Range Phosphorus 4.5 2.5 - 4.5 mg/dL Parathyroid Hormone Intact Status: None Result Value Ref Range Parathyroid Hormone Intact 30 18 - 80 pg/mL Bone specific alk phosphatase Status: None Result Value Ref Range Bone Spec Alk Phosphatase 22.9 ug/L Osteocalcin Status: None Result Value Ref Range Osteocalcin 41 11 - 50 ng/mL Comprehensive metabolic panel Status: None Result Value Ref Range Sodium 138 133 - 144 mmol/L Potassium 3.6 3.4 - 5.3 mmol/L Chloride 105 96 - 110 mmol/L Carbon Dioxide 27 20 - 32 mmol/L Anion Gap 6 3 - 14 mmol/L Glucose 81 70 - 99 mg/dL Urea Nitrogen 9 7 - 30 mg/dL Creatinine 0.71 0.50 - 1.00 mg/dL GFR Estimate >90 >60 mL/min/[1.73_m2] GFR Estimate If Black >90 >60 mL/min/[1.73_m2] Calcium 9.1 8.5 - 10.1 mg/dL Bilirubin Total 0.5 0.2 - 1.3 mg/dL Albumin 4.5 3.4 - 5.0 g/dL Protein Total 8.3 6.8 - 8.8 g/dL Alkaline Phosphatase 117 40 - 150 U/L ALT 17 0 - 50 U/L AST 12 0 - 35 U/L Vitamin D2 + D3, 25 Hydroxy Status: None Result Value Ref Range 25 OH Vit D2 <5 ug/L 25 OH Vit D3 50 ug/L 25 OH Vit D total <55 20 - 75 ug/L TSH Status: None Result Value Ref Range TSH 1.64 0.40 - 4.00 mU/L T4 free Status: None Result Value Ref Range T4 Free 0.96 0.76 - 1.46 ng/dL CBC with platelets differential Status: None Result Value Ref Range WBC 8.7 4.0 - 11.0 10e9/L RBC Count 4.45 3.8 - 5.2 10e12/L Hemoglobin 12.8 11.7 - 15.7 g/dL Hematocrit 39.9 35.0 - 47.0 % MCV 90 78 - 100 fl MCH 28.8 26.5 - 33.0 pg MCHC 32.1 31.5 - 36.5 g/dL RDW 12.6 10.0 - 15.0 % Platelet Count 330 150 - 450 10e9/L Diff Method Automated Method % Neutrophils 52.0 % % Lymphocytes 39.4 % % Monocytes 6.7 % % Eosinophils 1.2 % % Basophils 0.6 % % Immature Granulocytes 0.1 % Nucleated RBCs 0 0 /100 Absolute Neutrophil 4.5 1.6 - 8.3 10e9/L Absolute Lymphocytes 3.4 0.8 - 5.3 10e9/L Absolute Monocytes 0.6 0.0 - 1.3 10e9/L Absolute Eosinophils 0.1 0.0 - 0.7 10e9/L Absolute Basophils 0.1 0.0 - 0.2 10e9/L Abs Immature Granulocytes 0.0 0 - 0.4 10e9/L Absolute Nucleated RBC 0.0 Calcium random urine with Creat Ratio Status: None Result Value Ref Range Calcium Urine mg/dL 7.0 mg/dL Calcium Urine g/g Cr 0.08 g/g Cr C-Telopeptide, [id number]-Spsfs-Opiepg Status: Abnormal Result Value Ref Range C-Telopept B-X-Linked 675 (H) 64 - 640 pg/mL Creatinine urine calculation only Status: None Result Value Ref Range Creatinine Urine 87 mg/dL Results for orders placed or performed in visit on 10/13/20 Dexa hip/pelvis/spine Status: None Narrative INDICATION: Scoliosis COMPARISON: None TECHNICAL: The patient was scanned using a [employer], with pediatric software. Age: 20 years 2 months Gender: Female Race/Ethnicity: White FINDINGS: Image quality: adequate Height: 63 inches, ( 30 %) Weight: 122 pounds Densitometry results: Spine L1-L4: Chronological age Z-score: 0.2 Bone Mineral Density: 1.204 gm/cm2 Total Body Less Head: Chronological age Z-score: -0.2 Bone Mineral Density: 0.998 gm/cm2 Body composition: % body fat: 31.9% Impression IMPRESSION: Bone mineral density within normal limits. Notes: DXA According to the ISCD May 2007 Position Statements at www.iscd.org the diagnosis of osteoporosis in males and females ages 5 - 19 requires the presence of both a clinically significant fracture history (one long bone fracture of the lower extremities, vertebral compression fracture, or 2+ long bone fractures of the upper extremities) and low bone mineral density. Low bone mineral density is defined as BMD Z-score less than or equal to -2.0 adjusted for age, gender and body size as appropriate. The least significant change (LSC) for AP Spine = 2% Body Composition Cutoffs for Body Fatness (from Yan et al. Arch Ped Adol Med 2009;163(9):805): Age, y Normal Moderate Elevated Boys <9 <22% 22-26% >26% 9-11.9 <24% 24-34% >34% 12-14.9 <23% 23-32% >32% >=15 <22% 22-29% >29% Girls <9 <27% 27-34% >34% 9-11.9 <30% 30-37% >37% 12-14.9 <32% 32-39% >39% >=15 <36% 36-42% >42% BRIGHT ZHENG MD Assessment and Plan: 1. Osteoporosis based upon [...] fat soluble vitamin such as vitamin D. In the past she was on a very large dose of vitamin D supplementation and continues on a typical dose of vitamin D. She also has a history of low calcium and is receiving calcium supplementation. She has a history of menorrhagia treated with oral contraceptives. In preparation for today's visit, [place] had a DXA scan to evaluate her bone mineral density. I personally reviewed these images and shared them with Dakota and her mother. The bone mineral density of the lumbar spine was within the normal range, though the images are suboptimal due to the presence of in strumentation. This is corrected for by the software but is not always perfect. The total body bone mineral density was also within the normal range. Therefore, based upon the imaging, there is no evidence of osteoporosis or low bone mineral density. However, we have seen a number of children who do have poor bone healing that can be improved with therapy that targets bone health. There is no evidence of osteogenesis imperfecta with no abnormal sclerae and no history of fragilityfractures. In order to determine if there is a metabolic bone disorder, I recommend that she have labs obtained today including bone formation and bone resorption markers, calcium, phosphorus, 25 hydroxy vitamin D, parathyroid hormone, thyroid functions and urine calcium to see if she is spilling calcium in the urine. My overall impression is that we are unlikely to find a specific cause of her pseudoarthroses and poor healing, but that treatment to promote bone formation is likely to improve her ability to heal the spine and permanently remove her instrumentation. Once we have the results of thesetests, I would consider 6 to 12 months of parathyroid hormone therapy. I will discuss these results with Dr. Spencer and make a plan. We discussed that PTH therapy is a subcutaneous injection is given once daily. We also discussed other therapies for osteoporosis that are more targeted at bone resorption. Based on the poor healing of the bones of her spine, it is my opinion that PTH is much more likelyto have benefit than a bisphosphonate. There is no evidence of neurofibromatosis that would suggest poor bone alkaline phosphatase production. In that circumstance, Strensiq may be of benefit. Overall,my goal is to consider PTH therapy as a treatment option. Instructions: We will check labs today to see if we can understand if there is a particular reason why Dakota's bones are not healing well. Depending upon these results, we will discuss whether treatment with parathyroid hormone or other therapy might be beneficial. Orders Placed This Encounter Procedures ??? Comprehensive metabolic panel ??? Vitamin D2 + D3, 25 Hydroxy ??? TSH ??? T4 free ??? CBC with platelets differential ??? Calcium random urine with Creat Ratio ??? C-Telopeptide, [id number]-Zmczcg ??? Creatinine urine calculation only RESULTS INTERPRETATION: The electrolytes, liver functions, calcium and phosphorus were all normal. The alkaline phosphatase was in the low part of the normal range. The urine calcium was normal (less than 0.2). Thyroid functions were normal. The CBC was normal. The bone resorption marker, C-telopeptide, is mildly elevated. The bone resorption marker, N-telopeptide (Premenopausal: ??17- 94 nM BCE/mM creatinine), is normal. The bone formation marker, bone-specific alkaline phosphatase (Premenopausal Female: 4.5 - 16.9 ug/L), is mildly elevated. The bone formation marker, osteocalcin, is normal. The PTH is normal. The 25-hydroxy vitamin D, a marker of vitamin D stores and a screen for vitamin D deficiency, is normal. Based upon these test results, there is no evidence of a metabolic bone disease causing Dakota's poorbone healing. I recommend that Dakota receive PTH therapy for 6 months and reassess. I will submit for approval of Forteo 20 mcg subcutaneous daily for treatment of localized osteoporosis with pseudarthrosis to improve healing of her spine. I reviewed this plan with Dr. Spencer who feels that this periodof therapy is likely to be successful. Thank you for allowing me to participate in the care of your patient. Please do not hesitate to callwith questions or concerns. Sincerely, I personally performed the entire clinical encounter documented in this note. Dash Cardozo MD, PhD Professor Pediatric Endocrinology [facility] Patient Care Team: Josh Carrero as PCP - General (Family Medicine) Julian Spencer MD as MD (Orthopedics) Mariposa Atwood MD as Assigned PCP Julian Spencer MD as Assigned Musculoskeletal Provider Eugenio Finney MD as Assigned Pediatric Specialist Provider Dakota Casiano [address] [facility] [id number] documented in this encounter Nursing Notes Magdalene Baron - 10/13/2020 2:45 PM CST [facility] [[id number]] Chief Complaint Patient presents with ??? RECHECK Bone healing concerns Initial BP 112/73 Pulse 72 Ht 5' 3.43 (161.1 cm) Wt 122 lb 9.2 oz (55.6 kg) BMI 21.42 kg/m?? Estimated body mass index is 21.42 kg/m?? as calculated from the following: Height as of this encounter: 5' 3.43 (161.1 cm). Weight as of this encounter: 122 lb 9.2 oz (55.6 kg). Medication Reconciliation: complete 161.0cm, 161.1cm, 161.2cm, Ave: 161.1cm Magdalene Baron, JAQUELINE ERY ASSOCIATE documented in this encounter Miscellaneous Notes Addendum Note - Dash Cardozo MD - 10/13/2020 2:45 PM GROCERY ASSOCIATE Addended by: DASH CARDOZO on: 11/06/2020 07:56 PM Modules accepted: Orders documented in this encounter Plan of Treatment Not on filedocumented as of this encounter Procedures Procedure Name Priority Date/Time Associated Diagnosis Comme nts C-TELOPEPTIDE, Routine 10/13/2020 3:50 Neuromuscular Results f or this INDT-FZQGA-AROWAY PM GROCERY ASSOCIATE scoliosis of procedure are in thoracolumbar region the res ults section. 25 HYDROXYVITAMIN D2 & Routine 10/13/2020 3:50 Neuromuscular R esults for this D3 PM GROCERY ASSOCIATE scoliosis of procedure are i n thoracolumbar re gion the results Localized section. osteoporosis without current pathological fracture OSTEOCALCIN Routine 10/13/2020 3:50 Neuromuscular Results for this PM GROCERY ASSOCIATE scoliosis of procedure are i n thoracolumbar region the res ults section. CBC WITH PLATELETS & Routine 10/13/2020 3:50 Neuromuscular Res ults for this DIFFERENTIAL PM GROCERY ASSOCIATE scoliosis of procedure are i n thoracolumbar re gion the results Localized section. osteoporosis without current pathological fracture TSH Routine 10/13/2020 3:50 Neuromuscular Results for this PM GROCERY ASSOCIATE scoliosis of procedure are i n thoracolumbar re gion the results Localized section. osteoporosis without current pathological fracture T4 FREE Routine 10/13/2020 3:50 Neuromuscular Results for this PM GROCERY ASSOCIATE scoliosis of procedure are i n thoracolumbar re gion the results Localized section. osteoporosis without current pathological fracture PHOSPHORUS Routine 10/13/2020 3:50 Neuromuscular Results for this PM GROCERY ASSOCIATE scoliosis of procedure are i n thoracolumbar region the res ults section. PARATHYROID HORMONE Routine 10/13/2020 3:50 Neuromuscular Resu lts for this INTACT PM GROCERY ASSOCIATE scoliosis of procedure are i n thoracolumbar region the res ults section. MAGNESIUM Routine 10/13/2020 3:50 Neuromuscular Results for this PM GROCERY ASSOCIATE scoliosis of procedure are i n thoracolumbar region the res ults section. COMPREHENSIVE Routine 10/13/2020 3:50 Neuromuscular Results fo r this METABOLIC PANEL PM GROCERY ASSOCIATE scoliosis of procedure ar e in thoracolumbar re gion the results Localized section. osteoporosis without current pathological fracture BONE SPECIFIC ALK Routine 10/13/2020 3:50 Neuromuscular Result s for this PHOSPHATASE PM GROCERY ASSOCIATE scoliosis of procedure are i n thoracolumbar region the res ults section. N TELOPEPTIDE CROSS Routine 10/13/2020 3:45 Neuromuscular Resu lts for this LINKED URINE PM GROCERY ASSOCIATE scoliosis of procedure are i n thoracolumbar region the res ults section. CREATININE URINE Routine 10/13/2020 3:45 Localized Results for this CALCULATION ONLY (LAB PM GROCERY ASSOCIATE osteoporosis withou t procedure are in ONLY) current pathological the res ults fracture section. CALCIUM RANDOM URINE Routine 10/13/2020 3:45 Localized Resu lts for this PM GROCERY ASSOCIATE osteoporosis without procedu re are in current pathological the res ults fracture section. documented in this encounter Results (ABNORMAL) C-Telopeptide, Xpql-Jgdvh-Tyieng (10/13/2020 3:50 PM GROCERY ASSOCIATE) P athologist Signature C-Telopept 675 (H) 64 - 640 10/15/2020 [facility]27 PM [facility] Comment: (Note) Postmenopausal Females: 104-1008 pg/mL REFERENCE INTERVAL: C-Telopeptide, Beta- Cross-Linked, Serum Access complete set of age- and/or gende r-specific reference intervals for this test in the [facility] Test Directory (BeavEx). Performed By: [facility] [address] [place] [address] Hotel Recreational Facilities Manager: Brandi Dooley MD Specimen Anatomical Collection Method Collection Time Receive d Time (Source) Location / / Volume Laterality Blood specimen 10/13/2020 3:50 PM 021 3:55 (specimen) GROCERY ASSOCIATE PM GROCERY ASSOCIATE Ed Bartholomew MD LAB - BLOOD ORDERABLES Performing Organization Address City/State/ZIP Code Phon e Number [facility] [address] [place] [address] [facility] CBC with platelets differential (10/13/2020 3:50 PM GROCERY ASSOCIATE) [facility] gist Method Time Signature WBC 8.7 4.0 - 10/13/2020 [facility] 11.0 4:07 PM [facility] 10e9/L [facility] RBC Count 4.45 3.8 - 5.2 10/13/2020 [facility] 10e12/L 4:07 PM [facility] Hemoglobin 12.8 11.7 - 10/13/2020 [facility] 15.7 g/dL 4:07 PM [facility] Hematocrit 39.9 35.0 - 10/13/2020 [facility] 47.0 % 4:07 PM [facility] MCV 90 78 - 100 10/13/2020 [facility] fl 4:07 PM [facility] MCH 28.8 26.5 - 10/13/2020 [facility] 33.0 pg 4:07 PM [facility] MCHC 32.1 31.5 - 10/13/2020 [facility] 36.5 g/dL 4:07 PM [facility] RDW 12.6 10.0 - 10/13/2020 [facility] 15.0 % 4:07 PM [facility] Platelet Count 330 150 - 450 10/13/2020 [facility] 10e9/L 4:07 PM [facility] Diff Method Automated 10/13/2020 [facility] Method 4:07 PM [facility] % Neutrophils 52.0 % 10/13/2020 [facility] 4:07 PM [facility] % Lymphocytes 39.4 % 10/13/2020 [facility] 4:07 PM [facility] % Monocytes 6.7 % 10/13/2020 [facility] 4:07 PM [facility] % Eosinophils 1.2 % 10/13/2020 [facility] 4:07 PM [facility] % Basophils 0.6 % 10/13/2020 [facility] 4:07 PM [facility] % Immature 0.1 % 10/13/2020 [facility] Granulocytes 4:07 PM [facility] Nucleated RBCs 0 0 /100 10/13/2020 [facility] 4:07 PM [facility] Absolute 4.5 1.6 - 8.3 10/13/2020 [facility] Neutrophil 10e9/L 4:07 PM [facility] Absolute 3.4 0.8 - 5.3 10/13/2020 [facility] Lymphocytes 10e9/L 4:07 PM [facility] Absolute 0.6 0.0 - 1.3 10/13/2020 [facility] Monocytes 10e9/L 4:07 PM [facility] Absolute 0.1 0.0 - 0.7 10/13/2020 [facility] Eosinophils 10e9/L 4:07 PM [facility] Absolute 0.1 0.0 - 0.2 10/13/2020 [facility] Basophils 10e9/L 4:07 PM [facility] Abs Immature 0.0 0 - 0.4 10/13/2020 [facility] Granulocytes 10e9/L 4:07 PM [facility] Absolute 0.0 10/13/2020 [facility] Nucleated RBC 4:07 PM [facility] Specimen Anatomical Collection Method Collection Time Receive d Time (Source) Location / / Volume Laterality Blood specimen 10/13/2020 3:50 PM 021 3:55 (specimen) GROCERY ASSOCIATE PM GROCERY ASSOCIATE Dash Cardozo MD LAB - BLOOD ORDERABLES Performing Organization Address City/State/ZIP Code Phon e Number [address] [address] [facility] T4 free (10/13/2020 3:50 PM GROCERY ASSOCIATE) athologist Signature T4 Free 0.96 0.76 - 1.46 10/13/2020 [facility] ng/dL 4:40 PM [facility] Specimen Anatomical Collection Method Collection Time Receive d Time (Source) Location / / Volume Laterality Blood specimen 10/13/2020 3:50 PM 021 3:55 (specimen) GROCERY ASSOCIATE PM GROCERY ASSOCIATE Dash Cardozo MD LAB - BLOOD ORDERABLES Performing Organization Address City/State/ZIP Code Phon e Number [address] [address] [facility] TSH (10/13/2020 3:50 PM GROCERY ASSOCIATE) athologist Signature TSH 1.64 0.40 - 4.00 10/13/2020 [facility] mU/L 4:50 PM [facility] Specimen Anatomical Collection Method Collection Time Receive d Time (Source) Location / / Volume Laterality Blood specimen 10/13/2020 3:50 PM 021 3:55 (specimen) GROCERY ASSOCIATE PM GROCERY ASSOCIATE Dash Cardozo MD LAB - BLOOD ORDERABLES Performing Organization Address City/State/ZIP Code Phon e Number [address] [address] [facility] Vitamin D2 + D3, 25 Hydroxy (10/13/2020 3:50 PM GROCERY ASSOCIATE) athologist Signature 25 [place] Vit D2 <5 ug/L 10/18/2020 [facility] 2:52 PM T [facility] 25 [place] Vit D3 50 ug/L 10/18/2020 [facility] 2:52 PM T [facility] 25 [place] Vit D <55 20 - 75 10/18/2020 [facility] total ug/L 2:52 PM [facility] Comment: Season, race, dietary intake, and treatm ent affect the concentration of 84-ptvsbfg-Sgkleam D. Values may decreas e during winter months and increase during summer months. Values 20-29 ug/L may indicate Vitamin D insufficiency and values <20 ug/L may indicate Vitamin D deficiency. This test was developed and its performa nce characteristics determined by the [facility], Special Chemistry Laboratory. It has not been cleared or approved by the FDA. The laboratory is regulated under CLIA as qualified to perform high- complexity testing. This test is used for clinical purposes. It should not be regarded as investigational or for research. Specimen Anatomical Collection Method Collection Time Receive d Time (Source) Location / / Volume Laterality Blood specimen 10/13/2020 3:50 PM 021 3:55 (specimen) GROCERY ASSOCIATE PM GROCERY ASSOCIATE Dash Cardozo MD LAB - BLOOD ORDERABLES Performing Organization Address City/State/ZIP Code Phon e Number [facility] [address] [place], [place] [phone] [place] [address] Comprehensive metabolic panel (10/13/2020 3:50 PM GROCERY ASSOCIATE) athologist Signature Sodium 138 133 - 144 10/13/2020 [facility] mmol/L 4:27 PM [facility] Potassium 3.6 3.4 - 5.3 10/13/2020 [facility] mmol/L 4:27 PM [facility] Chloride 105 96 - 110 10/13/2020 [facility] mmol/L 4:27 PM [facility] Carbon Dioxide 27 20 - 32 10/13/2020 [facility] mmol/L 4:40 PM [facility] Anion Gap 6 3 - 14 10/13/2020 [facility] mmol/L 4:40 PM [facility] Glucose 81 70 - 99 10/13/2020 [facility] mg/dL 4:40 PM [facility] Urea Nitrogen 9 7 - 30 10/13/2020 [facility] mg/dL 4:40 PM [facility] Creatinine 0.71 0.50 - 10/13/2020 [facility] 1.00 mg/dL 4:40 PM [facility] GFR Estimate >90 >60 10/13/2020 [facility] mL/min/{1. 4:40 PM [facility] 73_m2} [facility] Comment: Non GFR Calc Starting 07/22/2018, serum creatinine ba sed estimated GFR (eGFR) will be calculated using the Chronic Kidney Dise ase Epidemiology Collaboration (CKD-EPI) equation. GFR Estimate If >90 >60 mL/min/{1.73_m2} 10/13/2020 4: 40 PM [facility] Black [facility] Comment: GFR Calc Starting 07/22/2018, serum creatinine ba sed estimated GFR (eGFR) will be calculated using the Chronic Kidney Dise ase Epidemiology Collaboration (CKD-EPI) equation. Calcium 9.1 8.5 - 10.1 mg/dL 10/13/2020 4:40 PM [facility] Bilirubin Total 0.5 0.2 - 1.3 mg/dL 10/13/2020 4:40 PM [facility] Albumin 4.5 3.4 - 5.0 g/dL 10/13/2020 4:40 PM [facility] Protein Total 8.3 6.8 - 8.8 g/dL 10/13/2020 4:40 PM [facility] Alkaline Phosphatase 117 40 - 150 U/L 10/13/2020 4:40 PM [facility] ALT 17 0 - 50 U/L 10/13/2020 4:40 PM [facility] AST 12 0 - 35 U/L 10/13/2020 4:40 PM [facility] Specimen Anatomical Collection Method Collection Time Receive d Time (Source) Location / / Volume Laterality Blood specimen 10/13/2020 3:50 PM 021 3:55 (specimen) GROCERY ASSOCIATE PM GROCERY ASSOCIATE Dash Cardozo MD LAB - BLOOD ORDERABLES Performing Organization Address City/State/ZIP Code Phon e Number [facility] [address] [place] [address] [facility] Osteocalcin (10/13/2020 3:50 PM GROCERY ASSOCIATE) athologist Signature Osteocalcin 41 11 - 50 10/15/2020 [facility] ng/mL 5:26 PM [facility] Comment: (Note) INTERPRETIVE INFORMATION: Osteocalcin by ECIA In patients with renal failure the osteo calcin result can be elevated, both directly, due to impai red clearance and indirectly, due to renal osteodystrophy. Access complete set of age- and/or gende r-specific reference intervals for this test in the [facility] Laboratory Test Directory (Key Ring.RippleFunction). Performed By: [facility] [address] [place] [address] Hotel Recreational Facilities Manager: Brandi Dooley MD Specimen Anatomical Collection Method Collection Time Receive d Time (Source) Location / / Volume Laterality Blood specimen 10/13/2020 3:50 PM 021 3:55 (specimen) GROCERY ASSOCIATE PM GROCERY ASSOCIATE Ed Bartholomew MD LAB - BLOOD ORDERABLES Performing Organization Address City/[facility]/ZIP Code Phon e Number [address] Bone specific alk phosphatase (10/13/2020 3:50 PM GROCERY ASSOCIATE) athologist Signature Bone Spec Alk 22.9 ug/L 10/14/2020 [facility] Phosphatase 5:10 PM GROCERY ASSOCIATE [facility] Comment: (Note) INTERPRETIVE INFORMATION: Bone Specific Alkaline Phosphatase Premenopausal Female: ?4.5 - 16.9 u g/L Postmenopausal Female: ?? 7.0 - 22.4 ug /L INTERPRETIVE INFORMATION: Bone Specific Alkaline Phosphatase Liver alkaline phosphatase can affect th e measurement of bone specific alkaline phosphatase in th is assay. Each 100 U/L of liver alkaline phosphatase contri butes an additional 2.5 to 5.8 ug/L to the bone specific alk burt phosphatase result. Performed By: [facility] [address] [place] [address] Hotel [employer]creational Facilities Manager: Brandi Dooley MD Specimen Anatomical Collection Method Collection Time Receive d Time (Source) Location / / Volume Laterality Blood specimen 10/13/2020 3:50 PM 021 3:55 (specimen) GROCERY ASSOCIATE PM GROCERY ASSOCIATE Ed Bartholomew MD LAB - BLOOD ORDERABLES Performing Organization Address City/[facility]/ZIP Code Phon e Number [phone] [place] [address] Parathyroid Hormone Intact (10/13/2020 3:50 PM GROCERY ASSOCIATE) athologist Signature Parathyroid 30 18 - 80 10/14/2020 [facility] Hormone Intact pg/mL 1:47 AM GROCERY ASSOCIATE [facility] Specimen Anatomical Collection Method Collection Time Receive d Time (Source) Location / / Volume Laterality Blood specimen 10/13/2020 3:50 PM 03/11/2 021 3:55 (specimen) GROCERY ASSOCIATE PM GROCERY ASSOCIATE Ed Bartholomew MD LAB - BLOOD ORDERABLES Performing Organization Address City/State/ZIP Code Phon e Number [facility] [address] [place] [address] [facility] Phosphorus (10/13/2020 3:50 PM GROCERY ASSOCIATE) athologist Signature Phosphorus 4.5 2.5 - 4.5 10/13/2020 [facility] mg/dL 4:40 PM GROCERY ASSOCIATE [facility] Specimen Anatomical Collection Method Collection Time Receive d Time (Source) Location / / Volume Laterality Blood specimen 10/13/2020 3:50 PM 021 3:55 (specimen) GROCERY ASSOCIATE PM GROCERY ASSOCIATE dE Bartholomew MD LAB - BLOOD ORDERABLES Performing Organization Address City/State/ZIP Code Phon e Number [address] [address] [facility] Magnesium (10/13/2020 3:50 PM GROCERY ASSOCIATE) athologist Signature Magnesium 2.2 1.6 - 2.3 10/13/2020 [facility] mg/dL 4:40 PM [facility] Specimen Anatomical Collection Method Collection Time Receive d Time (Source) Location / / Volume Laterality Blood specimen 10/13/2020 3:50 PM 021 3:55 (specimen) GROCERY ASSOCIATE PM GROCERY ASSOCIATE Ed Bartholomew MD LAB - BLOOD ORDERABLES Performing Organization Address City/State/ZIP Code Phon e Number [address] [address] [facility] Creatinine urine calculation only (10/13/2020 3:45 PM GROCERY ASSOCIATE) athologist Signature Creatinine 87 mg/dL 10/13/2020 [facility] Urine 4:41 PM GROCERY ASSOCIATE [facility] Specimen Anatomical Collection Method Collection Time Receive d Time (Source) Location / / Volume Laterality 10/13/2020 3:45 PM 3:55 GROCERY ASSOCIATE PM GROCERY ASSOCIATE Ed Bartholomew MD LAB - URINE ORDERABLES Performing Organization Address City/State/ZIP Code Phon e Number [facility] [address] [address] [facility] [address] [address], [place] [phone] Calcium random urine with Creat Ratio (10/13/2020 3:45 PM GROCERY ASSOCIATE) athologist Signature Calcium Urine 7.0 mg/dL 10/13/2020 [facility] mg/dL 4:37 PM [facility] Calcium Urine 0.08 g/g Cr 10/13/2020 [facility] g/g Cr 4:41 PM [facility] Comment: Calcium/creatinine ratio is only a scree jamila test for hypercalcuria and has only been validated using first morning voids. ??The 24 hour urine for calcium is more definitive and preferred. Specimen Anatomical Collection Method Collection Time Receive d Time (Source) Location / / Volume Laterality Urine specimen 10/13/2020 3:45 PM 021 3:55 (specimen) GROCERY ASSOCIATE PM GROCERY ASSOCIATE Dash Cardozo MD LAB - URINE ORDERABLES Performing Organization Address City/State/ZIP Code Phon e Number M [facility] [address] [address] [facility] [address] [address], [place] [phone] N telopeptide cross linked urine (10/13/2020 3:45 PM GROCERY ASSOCIATE) athologist Signature N-Telopeptide 41 BCE/mM 10/15/2020 [facility] X-Link Urine 12:27 AM [facility] Comment: (Note) Normal adult female: ??Premenopausal: ??17-94 nM BCE/mM crea tinine ??Postmenopausal: 26-124 nM BCE/mM crea tinine INTERPRETIVE INFORMATION: N-Telopeptide, Cross Linked, Urine NTx Units = nM BCE/mM creatinine A decrease of 30-40% from the NTx baseli ne after 3 months of therapy is a typical response to anti -resorptive therapy. NTx = Cross-linked N-telopeptide of Type I Collagen BCE = Bone Collagen Equivalent Access complete set of age- and/or gende r-specific reference intervals for this test in the [facility] Test Directory (BeavEx). Creatinine Ur/Vol 90 mg/dL 10/15/2020 12:27 AM CS [facility] Comment: (Note) Performed By: [facility] [address] [place] [address] Hotel Recreational Facilities Manager: Brandi Dooley MD Specimen Anatomical Collection Method Collection Time Receive d Time (Source) Location / / Volume Laterality Urine specimen 10/13/2020 3:45 PM 021 3:55 (specimen) GROCERY ASSOCIATE PM GROCERY ASSOCIATE Ed Bartholomew MD LAB - URINE ORDERABLES Performing Organization Address City/State/ZIP Code Phon e Number [address] [address] [facility] documented in this encounter Visit Diagnoses Diagnosis Localized osteoporosis without current p athological fracture - Primary Neuromuscular scoliosis of thoracolumbar region Other kyphoscoliosis and scoliosis S/P spinal fusion Arthrodesis status Pseudarthrosis following spinal fusion Arthrodesis status History of inhaled steroid therapy Personal history of inhaled steroid ther apy Pancreatic insufficiency Other specified disease of pancreas Excessive menstruation at puberty Puberty bleeding POTS (postural orthostatic tachycardia s yndrome) Tachycardia, unspecified documented in this encounter Care Teams Hydrogen Operator Relationship Specialty Start Date End Date Josh Carrero PCP - General Family Medicine 08/09/[address] [address] Julian Spencer MD MD Orthopedics 03/08/[address] [place] [address] Mariposa Atwood Assigned PCP 04/29/20 11/12/20 MD Nettie [address] [place] [address] Julian Spencer MD Assigned Musculoskeletal 05/27/[address] [place] [address] [place] [address] Eugenio Finney Assigned Pediatric 06/19/2005/07 MD David Specialist Provider [address] [place] [address] documented as of this encounter
--- OUTSIDE RECORDS SUMMARY | 2022-06-18 11:57 | XMS_ITS | Encounter Summary ---
:2001 Author Organization [facility] Address [address] [place] [address] Care Team Providers Name Role Phone Julian Spencer MD Unavailable Mariposa Atwood MD Unavailable [phone] Julian Spencer MD Unavailable Eugenio Finney MD Unavailable [phone] Josh Carrero Primary Care Provider Encounter Details Date Type Department Care Team Description 09/01/2020 Travel Social History Tobacco Use Types Packs/Day Years Used Date Smoking Tobacco: Never Smokeless Tobacco: Never Alcohol Use Standard Drinks/Week Comments Not Currently 0 (1 standard drink = 0.6 oz pure alcoho l) Sex Assigned at Date Recorded Female 12/02/2020 1:42 PM CDT COVID-19 Exposure Response Date Recorded In the last month, have you been in contact with No / Unsure 09/01/2020 7:58 AM TRACK MAINTAINER someone who was confirmed or suspected to have Coronavirus / COVID-19? documented as of this encounter Plan of Treatment Not on filedocumented as of this encounter Visit Diagnoses Not on filedocumented in this encounter Additional Health Concerns Infection Onset Date Last Indicated Resolved Time COVID-19 08/18/2020 08/18/2020 09/08/2020 11:39 PM TRACK MAINTAINER documented as of this encounter Care Teams Content Development Specialist Relationship Specialty Start Date End Date Josh Carrero PCP - General Family Medicine 08/09/20 [place] [address] [employer] [place] [address] Julian Spencer MD MD Orthopedics 03/08/20 [address] [place], [place] [phone] Mariposa Atwood Assigned PCP 04/29/20 11/12/20 MD Nettie [address] [facility] [place] [place] [phone] Julian Spencer MD Assigned Musculoskeletal 05/27/[address] Provider [place], [place] [phone] Eugenio Finney Assigned Pediatric 06/19/2005/07 MD David Specialist Provider [address] [facility] [address] [place], [place] [id number] documented as of this encounter
--- OUTSIDE RECORDS SUMMARY | 2022-06-18 11:57 | XMS_ITS | Encounter Summary ---
:2001 Author Organization [facility] Address [address] [place] [address] Care Team Providers Name Role Phone Julian Spencer MD Unavailable Mariposa Atwood MD Unavailable [phone] Julian Spencer MD Unavailable Eugenio Finney MD Unavailable [phone] Josh Carrero Primary Care Provider Encounter Details Date Type Department Care Team Description 09/08/2020 Telephone [facility], curtain stitcher [facility] [address] [place] [address] [phone] Social History Tobacco Use Types Packs/Day [...] with No / Unsure 09/01/2020 7:58 AM CHIEF ENVIRONMENTAL COMMITMENT OFFICER someone who was confirmed or suspected to have Coronavirus / COVID-19? documented as of this encounter Miscellaneous Notes Telephone Encounter - Dulce Stone RN - 09/08/2020 10:29 AM CST Spoke to [place]. She rates her pain as a 7/10 pain. She states the oxycodone helps a little, and thinks the valium helps a bit as well. Is taking celebrex daily. She feels like she is able to complete some of her daily activities, but feels like she is sometimes limited by hanging out with friends due to her pain. Scheduled her for follow up visit on 09/[address] Blake. Provided the phone number [employer] for integrative medicine. Sent message to PT scheduling team to schedule patient as well. She has no further questions at this time Dulce Stone RN on 09/08/2020 at 10:37 AM F ENVIRONMENTAL COMMITMENT OFFICER documented in this encounter Plan of Treatment Not on filedocumented as of this encounter Visit Diagnoses Not on filedocumented in this encounter Additional Health Concerns Infection Onset Date Last Indicated Resolved Time COVID-19 08/18/2020 08/18/2020 09/08/2020 11:39 PM CHIEF ENVIRONMENTAL COMMITMENT OFFICER documented as of this encounter Care Teams Graphic Arts Technician Relationship Specialty Start Date End Date Josh Carrero PCP - General Family Medicine 08/09/[address] [address] Julian Spencer MD MD Orthopedics 03/08/[address] [place] [phone] Mariposa Atwood Assigned PCP 04/29/20 11/12/20 MD Nettie [address] [place], [place] [address] Julian Spencer MD Assigned Musculoskeletal 05/27/[address] Provider [place], [place] [phone] Eugenio Finney Assigned Pediatric 06/19/2005/07 MD David Specialist Provider [address] [facility] [address] [place], [place] [address] documented as of this encounter
--- OUTSIDE RECORDS SUMMARY | 2022-06-18 11:57 | XMS_ITS | Encounter Summary ---
:2001 Author Organization [place] Address [address] [place] [address] Care Team Providers Name Role Phone Julian Spencer MD Unavailable Mariposa Atwood MD Unavailable [phone] Julian Spencer MD Unavailable Eugenio Finney MD Unavailable [phone] Josh Carrero Primary Care Provider Encounter Details Date Type Department Care Team Description 08/31/2020 Travel Social History Tobacco Use Types Packs/Day Years Used Date Smoking Tobacco: Never Smokeless Tobacco: Never Alcohol Use Standard Drinks/Week Comments Not Currently 0 (1 standard drink = 0.6 oz pure alcoho l) Sex Assigned at Date Recorded Female 12/02/2020 1:42 PM CDT COVID-19 Exposure Response Date Recorded In the last month, have you been in contact with No / Unsure 08/31/2020 2:56 PM VICE PRESIDENT OF NEWS someone who was confirmed or suspected to have Coronavirus / COVID-19? documented as of this encounter Plan of Treatment Not on filedocumented as of this encounter Visit Diagnoses Not on filedocumented in this encounter Additional Health Concerns Infection Onset Date Last Indicated Resolved Time COVID-19 08/18/2020 08/18/2020 09/08/2020 11:39 PM VICE PRESIDENT OF NEWS documented as of this encounter Care Teams Load Tester Relationship Specialty Start Date End Date Josh Carrero PCP - General Family Medicine 08/09/20 [place] [address] [place] [address] Julian Spencer MD MD Orthopedics 03/08/[address] [place], [place] [phone] Mariposa Atwood Assigned PCP 04/29/20 11/12/20 MD Nettie [address] [facility] [place] [place] [phone] Julian Spencer MD Assigned Musculoskeletal 05/27/[address] Provider [place], [place] [phone] Eugenio Finney Assigned Pediatric 06/19/2005/07 MD David Specialist Provider [address] [facility] 96 [place], [place] [phone] documented as of this encounter
--- OUTSIDE RECORDS SUMMARY | 2022-06-18 11:57 | XMS_ITS | Encounter Summary ---
:2001 Author Organization [facility] Address [address] [place] [address] Care Team Providers Name Role Phone Julian Spencer MD Unavailable Mariposa Atwood MD Unavailable [phone] Julian Spencer MD Unavailable Eugenio Finney MD Unavailable [phone] Josh Carrero Primary Care Provider Reason for Visit Diagnostic Imaging XR (Routine) - Closed Specialty Diagnoses / Procedures Referred By Contact Refer red To Contact Diagnoses S/P spinal surgery Julian Spencer MD Procedures XR Spine Complete Scoliosis 2 Views [address] [place], [place] [address] Referral ID Status Reason Start Date Expiration Date Visits Requ ested Visits Authorized [id number] Closed 09/16/2020 09/16/2021 1 1 Encounter Details Date Type Department Care Team Description 09/22/2020 Ancillary Procedure [facility] Juveay MD Darell Rison [address] [place], [place] 1[address] [address] [place], [place] [phone] (Work) [phone] Social History Tobacco Use Types Packs/Day Years Used Date Smoking Tobacco: Never Smokeless Tobacco: Never Alcohol Use Standard Drinks/Week Comments Not Currently 0 (1 standard drink = 0.6 oz pure alcoho l) Sex Assigned at Date Recorded Female 12/02/2020 1:42 PM CDT COVID-19 Exposure Response Date Recorded In the last month, have you been in contact with No / Unsure 09/22/2020 8:47 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 documented as of this encounter Plan of Treatment Not on filedocumented as of this encounter Procedures Procedure Name Priority Date/Time Associated Diagnosis Comme nts XR SPINE COMPLETE Routine 09/22/2020 8:26 AM S/P spinal surger y Results for this SCOLIOSIS 2 VIEWS DATA CENTER OPERATOR procedure are in the results section. documented in this encounter Results XR Spine Complete Scoliosis 2 Views (09/22/2020 8:26 AM DATA CENTER OPERATOR) Anatomical Region Laterality Modality Spine Computed Radiography Specimen (Source) Anatomical Location Collection Method / Collectio n Time Received Time / Laterality Volume Impressions 09/26/2020 8:59 AM DATA CENTER OPERATOR Impression: 1. Post spinal instrumentation from T4 t o L4. Intact hardware. 2. Mild convexed right curvature of the thoracolumbar/lumbar spine. 3. No ??global sagittal imbalance. 4. Weight bearing axis as detailed above . 5. Left lower extremity longer than righ t lower extremity. CHATO OSMAN MD Narrative 09/26/2020 8:59 AM DATA CENTER OPERATOR Exam: Full body radiographs using EOS History: S/P spinal surgery Techniques: AP and lateral images of ful l body and secondary images of AP and lateral views of spine were submi tted for interpretation. Comparison: X-ray spine 08/12/2020. Findings Findings: 12 rib bearing vertebral bodies and 5 georgi mbar type no nephrostomy vertebral bodies are identified. Limited osseous detail due to technique. Posterior spinal instrumentat ion from T4-L4. Intact hardware. Coronal Deformity: There is a mild ??convexed right curvatu re of thoracolumbar/lumbar spine with apex at L2-L3 No substantial global coronal imbalance. Sagittal Vertical [place] (A vertical line drawn from the center of C7 (carl line) to the posterosuperior aspe ct of the S1 on sagittal plane): ??less than 4 cm Weight bearing axis: (Defined as a line drawn from the center of the femoral head to the mid aspect of the ti bial plafond). ?Right: Weight bearing axis crosses middle 1/3 of medial tibial plateau. ? Left: Weight bearing axis crosses central 1/3 of lateral tibial plateau. Leg length: ??(Measured from the top of the femoral head to the center of tibial plafond. ??It is assumed joint s are in similar degrees of extension bilaterally. ??Significant dif ference is defined when discrepancy is greater than 1.5 cm). Leg length discrepancy with left lower e xtremity measuring 76.4 cm and the right lower extremity measuring 74.8 . Additional Findings: Dental amalgam. No acute airspace opacit y. Unchanged cardiomediastinal silhouette No acute osseous abnormality. ??There is a nonobstructive bowel gas pattern. Procedure Note Chato Osman MD - 09/26/2020Formattin g of this note might be different from the original. Exam: Full body radiographs using EOS History: S/P spinal surgery Techniques: AP and lateral images of ful l body and secondary images of AP and lateral views of spine were submi tted for interpretation. Comparison: X-ray spine 08/12/2020. Findings Findings: 12 rib bearing vertebral bodies and 5 georgi mbar type no nephrostomy vertebral bodies are identified. Limited osseous detail due to technique. Posterior spinal instrumentat ion from T4-L4. Intact hardware. Coronal Deformity: There is a mild convexed right curvature of thoracolumbar/lumbar spine with apex at L2-L3 No substantial global coronal imbalance. Sagittal Vertical [place] (A vertical line drawn from the center of C7 (carl line) to the posterosuperior aspe ct of the S1 on sagittal plane): less than 4 cm Weight bearing axis: (Defined as a line drawn from the center of the femoral head to the mid aspect of the ti bial plafond). Right: Weight bearing axis crosses midd le 1/3 of medial tibial plateau. Left: Weight bearing axis crosses centr al 1/3 of lateral tibial plateau. Leg length: (Measured from the top of th e femoral head to the center of tibial plafond. It is assumed joints are in similar degrees of extension bilaterally. Significant diffe rence is defined when discrepancy is greater than 1.5 cm). Leg length discrepancy with left lower e xtremity measuring 76.4 cm and the right lower extremity measuring 74.8 . Additional Findings: Dental amalgam. No acute airspace opacit y. Unchanged cardiomediastinal silhouette No acute osseous abnormality. There is a nonobstructive bowel gas pattern. Impression: 1. Post spinal instrumentation from T4 t o L4. Intact hardware. 2. Mild convexed right curvature of the thoracolumbar/lumbar spine. 3. No global sagittal imbalance. 4. Weight bearing axis as detailed above . 5. Left lower extremity longer than righ t lower extremity. CHATO OSMAN MD Julian Spencer MD IMG DIAGNOSTIC IMAGING ORDER DANO documented in this encounter Visit Diagnoses Not on filedocumented in this encounter Care Teams Emg Technician Relationship Specialty Start Date End Date Josh Carrero PCP - General Family Medicine 08/09/[address] [id number] Julian Spencer MD MD Orthopedics 03/08/[address] [place] [id number] Mariposa Atwood Assigned PCP 04/29/20 11/12/20 MD Nettie [address] [facility] [address] [place], [place] [id number] Julian Spencer MD Assigned Musculoskeletal 05/27/[address] [place], [place] [id number] Provider [place], [place] [id number] Eugenio Finney Assigned Pediatric 06/19/2005/07 MD David Specialist Provider [address] [facility] [address] [place], [place] [id number] documented as of this encounter
--- OUTSIDE RECORDS SUMMARY | 2022-06-18 11:57 | XMS_ITS | Encounter Summary ---
:2001 Author Organization [place] Address [facility] [place] [address] Care Team Providers Name Role Phone Julian Spencer MD Unavailable Mariposa Atwood MD Unavailable [phone] Julian Spencer MD Unavailable Eugenio Finney MD Unavailable [phone] Josh Carrero Primary Care Provider Reason for Visit Reason Comments Extremity Weakness Encounter Details Date Type Department Care Team Description 08/28/2020 - Emergency [facility] Naomie Craig MD Pain 08/29/2020 Emergency Department [address] [address] [place] [phone] Social History Tobacco Use Types Packs/Day Years Used Date Smoking Tobacco: Never Smokeless Tobacco: Never Alcohol Use Standard Drinks/Week Comments Not Currently 0 (1 standard drink = 0.6 oz pure alcoho l) Sex Assigned at Date Recorded Female 12/02/2020 1:42 PM CDT COVID-19 Exposure Response Date Recorded In the last month, have you been in contact with No / Unsure 08/28/2020 8:19 PM CAN VACUUM TESTER someone who was confirmed or suspected to have Coronavirus / COVID-19? documented as of this encounter Last Filed Vital Signs Vital Sign Reading Time Taken Comments Blood Pressure 113/70 08/29/2020 12:00 AM CAN VACUUM TESTER Pulse 78 08/29/2020 12:00 AM CAN VACUUM TESTER Temperature 36.7 ??C (98 ??F) 08/28/2020 9:42 PM CAN VACUUM TESTER Respiratory Rate 18 08/28/2020 9:42 PM CAN VACUUM TESTER Oxygen Saturation 99% 08/29/2020 12:00 AM CAN VACUUM TESTER Inhaled Oxygen Concentration - - Weight 51.7 kg (114 lb) 08/28/2020 9:42 PM CAN VACUUM TESTER stated Height - - Body Mass Index 20.19 08/09/2020 6:50 AM CAN VACUUM TESTER documented in this encounter Discharge Instructions Discharge InstructionsKristel Benítez MD - 08/29/2020 12:16 AM CST Emergency Department Discharge Information for Dakota Duncan was seen in the [facility] Department today for increased pain and right leg numbness. Her doctors were Dr. Benítez and Dr. Sharma. We think this problem is likely caused by a reactive suture in your back. Medical tests: Dakota had these tests today: Blood tests. These showed: normal labs, no signs of infection at this time X-rays. These showed: stable from previous. A formal read will occur in the morning, and you will be calledif there are any concerns Home care: - Make sure she gets plenty to drink - If you see changes on the wound such as pus or worsened redness, please take a picture For fever or pain, Dakota can have: - Tylenol 650mg tablet every 6 hours - Oxycodone 5mg every 6 hours as needed for breakthrough pain. You were given 5 additional doses. Ifyou use all of these and pain is still worse, please follow up in the Orthopedic clinic Please return to the ED or contact her primary physician if: she becomes much more ill, she gets a fever over 100 degrees F she has severe pain she is much more irritable or sleepier than usual her wound is very red, painful, or leaks blood or pus/the stitches come out or you have any other concerns. Please make an appointment to follow up with Orthopedics ([phone]) in 1-[address] Spencer was sent a message that you were seen in the ED. Medication side effect information: All medicines may cause side effects. However, most people have no side effects or only have minor side effects. People can be allergic to any medicine. Signs of an allergic reaction include rash, difficulty breathing or swallowing, wheezing, or unexplained swelling. If she has difficulty breathing or swallowing,call 911 or go right to the Emergency Department. For rash or other concerns, call her doctor. If you have questions about side effects, please ask our staff. If you have questions about side effects or allergic reactions after you go home, ask your doctor or a pharmacist. VACUUM TESTER documented in this encounter Medications at Time [...] MOUTH EVERY 8 HOURS NEEDED FOR ANXIETY Lidocaine (LIDOCARE) 4 % Place 1-2 patches on 30 patch 3 0 08/15/2020 PatchIndications: Acute skin over painful post-operative pain, area. Leave on for Chronic musculoskeletal 12 hours, then keep pain off for 12 hours. Repeat daily. naloxone (NARCAN) 4 [place] 1 spray (4 mg) 0.2 mL 0 2020 MG/0.1ML nasal into one nostril sprayIndications: Acute alternating nostrils post-operative pain as needed for opioid reversal every 2-3 minutes until assistance arrives Norethindrone Take by mouth daily 0 Acet-Ethinyl Est (LOESTRIN 08/24, , PO) tranexamic acid Take 1.5 tablets 15 tablet 0 08/16/2020 (LYSTEDA) 650 MG every six hours as tabletIndications: needed for Platelet disorder (H) persistent bleeding. diazepam (VALIUM) 2 MG Take 1 tablet (2 mg) 10 tablet 0 04/11/2021 tablet by mouth every 6 hours as needed for muscle spasms diazepam (VALIUM) 2 MG Take 1 tablet (2 mg) 30 tablet 0 06/202108/31/2020 tabletIndications: Acute by mouth every 6 post-operative pain hours as needed for anxiety oxyCODONE (ROXICODONE) 5 Take 1 tablet (5 mg) 5 tablet 0 0 08/29/2020 08/31/2020 MG tablet by mouth every 6 hours as needed for pain polyethylene glycol Take 17 g by mouth 510 g 11 08/16/19 21 04/11/2021 (MIRALAX) 17 GM/Dose daily powderIndications: Acute post-operative pain pregabalin (LYRICA) 150 Take 1 capsule (150 60 capsule 3 06/202104/11/2021 MG capsuleIndications: mg) by mouth 2 times Chronic musculoskeletal daily pain, Chronic pain syndrome sertraline (ZOLOFT) 100 Take 100 mg by mouth 0 06/02/2021 MG tablet daily valACYclovir (VALTREX) Take 1 tablet (1,000 21 tablet 0 10/23/2020 1000 mg tablet mg) by mouth 3 times daily for 7 days documented as of this encounter ED Notes Glen Sharma MD - 08/29/2020 12:41 AM CST I assumed care of this patient from Dr. Fierro at change of shift. She is a 20yo female with recent spinal fusion surgery now with complaints of pain at her incision site and leg numbness. Her numbness resolved during her ED visit. She had no evidence of inflammation or increased WBC on labs. A POCUS of her incision site revealed some changes of possible early phlegmon/abscess, no definitive lesion to be drained. She did not have significant fluctuance at the site and no drainage noted. She was discharged home with close orthopedics follow-up and we decided to withhold antibiotics for now given her normal labs, absence of systemic symptoms, and minimal changes on US. Orthopedics was consulted and agreed with this assessment and plan. Glen Sharma MD 08/29/20 0054 VACUUM TESTER Leilani Gonzalez RN - 08/28/2020 9:41 PM CST Pt had spinal fusion surgery two weeks ago, presents with lower R extremity weakness and tingling, nausea, vomiting x1 yesterday and feeling lightheaded. VACUUM TESTER Naomie Fierro MD - 08/28/2020 9:35 PM CST History Chief Complaint Patient presents with ??? Extremity Weakness HPI History obtained from family and patient Dakota is a 20 year old female who presents at 9:36 PM with her mother for a lump at incision and increased RLE numbness. Dakota Casiano is a 20 year old female??with a history of tethered cord??s/p release, scoliosis??s/p??multiplespinal fusion surgeries most recently full fusion on 08/09/2020-08/16/20,??POTS, chronic complex pain syndrome??and complex platelet disorder who presents with 1 day of right LE numbness and a lump at her incision site. Since recent discharge on 08/16/20 she has not recovered well. Difficult for mother to dscribe how, but this time has been different. She was seen in our ED on 08/18 and diagnosed with shingles, and also tested positive for covid-19. Yesterday Dakota developed worsened pain and a new lump on the anterior part of her spinal incision, which hurt 8-9 when not touching it but 10/10 when touching it. Mother wonders if it is the hardware. She has also had increased right lower legpain which shoots from the middle of her back. Also, for 1 day she has had increased numbness of the right leg, and mother mother notes that her gait looks funny, like maybe she is in pain. She hasnot collapsed while walking. Yesterday she tried to take oxycodone and had x1 emesis with a lot of retching, with about 1/2 teaspoon of red blood. She has been more dizzy than usual over the past 1-2 days. Her stools are loose without blood or black color, but sometimes they are loose at baseline depending on what she eats. No fevers, cough, or skin rash. She has been drinking water and urinated a lot today, and feels thirsty. No headaches. No pain medication today. Surgeon: Dr Julian Spencer @ [facility] PCP [facility]: Dr Carrero. PMHx: Past Medical History: Diagnosis Date ??? [...] this encounter. Current Outpatient Medications Medication ??? acetaminophen (TYLENOL) 500 MG tablet ??? cholecalciferol (VITAMIN D3) 125 mcg (5000 units) capsule ??? diazepam (VALIUM) 2 MG tablet ??? diazepam (VALIUM) 2 MG tablet ??? Lidocaine (LIDOCARE) 4 % Patch ??? naloxone (NARCAN) 4 MG/0.1ML nasal spray ??? Norethindrone Acet-Ethinyl Est (LOESTRIN 08/24, , PO) ??? oxyCODONE (ROXICODONE) 10 MG tablet ??? oxyCODONE (ROXICODONE) 5 MG tablet ??? polyethylene glycol (MIRALAX) 17 GM/Dose powder ??? pregabalin (LYRICA) 150 MG capsule ??? sertraline (ZOLOFT) 100 MG tablet ??? tranexamic acid (LYSTEDA) 650 MG tablet ??? valACYclovir (VALTREX) 1000 mg tablet ALLERGIES: Dust mites and Hydromorphone IMMUNIZATIONS: Behind on Men B and MenACWY. Has received flu shot this season. ?? SOCIAL HISTORY: Dakota lives with mom. She attend college (virtual due to pandemic). I have reviewed the Medications, Allergies, Past Medical and Surgical History, and Social History inthe Epic system. Review of Systems Please see HPI for pertinent positives and negatives. All other systems reviewed and found to be negative. Physical Exam BP: 115/57 Pulse: 70 Temp: 98 ??F (36.7 ??C) Resp: 18 Weight: 51.7 kg (114 lb)(stated) SpO2: 100 % Physical Exam Constitutional: General: She is not in acute distress. Appearance: Normal appearance. She is not ill-appearing. HENT: Head: Normocephalic and atraumatic. Right Ear: External ear normal. Left Ear: External ear normal. Nose: Nose normal. No congestion or rhinorrhea. Mouth/Throat: Mouth: Mucous membranes are moist. Pharynx: No oropharyngeal exudate or posterior oropharyngeal erythema. Eyes: General: Right eye: No discharge. Left eye: No discharge. Extraocular Movements: Extraocular movements intact. Conjunctiva/sclera: Conjunctivae normal. Pupils: Pupils are equal, round, and reactive to light. Neck: Musculoskeletal: Normal range of motion. No neck rigidity. Cardiovascular: Rate and Rhythm: Normal rate and regular rhythm. Heart sounds: Normal heart sounds. No murmur. Pulmonary: Effort: Pulmonary effort is normal. No respiratory distress. Breath sounds: Normal breath sounds. Abdominal: General: Abdomen is flat. Bowel sounds are normal. Palpations: Abdomen is soft. Musculoskeletal: General: Tenderness present. No deformity. Skin: General: Skin is warm. Comments: The anterior end of spinal incision has slightly swollen area adjacent to scar, about 0.5-1cm in size and tender to palpation. Slightly pink appearing, no drainage or degroot erythema. A separate area about 1-2 cm to the patient's right is very tender to touch, with a small 0.25-0.5 cm fluid c ollection seen on handheld ultrasound. The collection is not adjacent to the scar. Neurological: Mental Status: She is alert. Comments: Right leg has numbnes to touch over entire lower extremity, excluding the medial right calf and the sole of the foot. Sensation intact elsewhere. 2-3 beats of ankle clonus bilaterally, patellar reflexes 3+ bilaterally. No upper extremity defects including no weakness or numbness; biceps reflexes 3+ bilaterally. PERRL with no nystagmus ED Course ED Course as of Aug 28 2348 Sun Aug 28, 2020 2347 CRP Inflammation: <2.9 2348 WBC: 7.3 2348 Absolute Neutrophil: 2.9 2348 Platelet Count(!): 633 2349 Hemoglobin(!): 11.1 Procedures No results found for this or any previous visit (from the past 24 hour(s)). Medications - No data to display Discussed with on-call Orthopedic Surgery, who agreed to start with soft tissue ultrasound, scoliosis xrays, and labs. Ultimately reassured by results and agreed with plan as below. Labs reviewed, see above for pertinent findings. Possible hemoconcentration given slight increase inall 3 blood cell lines from prior. Imaging reviewed and revealed stable scoliosis xrays. Handheld ultrasound was performed and revealeda small 0.25-0.5cm fluid collection lateral to the anterior part of her spinal incision on the right, not adjacent to the scar.. Patient was attended to immediately upon arrival and assessed for immediate life-threatening conditions. Critical care time: none Assessments & Plan (with Medical Decision Making) I have reviewed the nursing notes. I have reviewed the findings, diagnosis, plan and need for follow up with the patient. Dakota Casiano is a 20 year old female??with a history of tethered cord??s/p release, scoliosis??s/p??multiplespinal fusion surgeries most recently full fusion on 08/09/2020-08/16/20,??POTS, chronic complex pain syndrome??and complex platelet disorder who presents with 1 day of right LE numbness and a lump at her incision site. The acute change in RLE numbness is concerning for spinal cord pathology, however this improved during her ED stay. She does not have any upper extremity neuro changes on history or exam, and the distribution of numbness in the RLE does not fit with cord compression at the siteof the mass at the anterior portion of her spinal incision. I would expect a lower spinal cord lesion to primarily affect the lower extremities. The mass itself is a slightly swollen collection of tissue at the anterior portion of her spinal scar. However, pain was most severe about 1-2 cm to the right of this area. Further evaluation of the area via ultrasound showed a small 0.25-0.5 cm fluid collect ion to the right of the incision, not adjacent to the lesions and very tender to palpation. She is afebrile with normal CRP and WBC, which is reassuring against abscess. However, this could represent early changes for a brewing infection. Scoliosis xrays revealed normal hardware and unchanged when compared to prior. Discussed with on-call Orthopedic resident Dr. Lee. Given reassuring labs and images, and improvement of RLE numbness during ED stay, okay with discharge to home. Does not feel strongly about starting antibiotics at this time, given that this could be a reactive suture given her normal CRP. Discussed with family who are in agreement with plan as below. Plan - Discharge to home - Currently has used up all of her oxycodone and has x1 valium left. Gave one dose of oxycodone at time of discharge to help get through tonight. Sent x5 additional 5mg tablets to pharmacy to picker/puller tomorrow. If pain still worse after using all of these, follow up with orthopedic clinic. Currently has follow up with Dr. Gonzalez with PACCT scheduled for September. - Return precautions discussed including fevers, worsened vomiting, worsened swelling - Take pictures of the wound if you see any concerning changes Kristel Benítez M.D., PGY-2 Pediatrics Resident [facility] New Prescriptions No medications on file Final diagnoses: Pain 08/28/2020 [facility] EM[facility]GENCY [facility] Patient data was collected by the resident. Patient was seen and evaluated by me. I repeated the history and physical exam of the patient. I have discussed with the resident the diagnosis, management options, and plan as documented in the Resident Note. The ren portions of the note including the entire assessment and plan reflect my documentation. Naomie Fierro MD Pediatric Emergency Medicine Attending Physician Naomie Fierro MD 08/29/20 [id number] VACUUM TESTER documented in this encounter Miscellaneous Notes Plan of Care - Ronald Lee MD - 08/28/2020 11:57 PM CST Brief orthopaedic note: Patient presented to Peds ED this evening at my recommendation for evaluation after 24-48 hours of increased pain, numbness in RLE, vomiting with 1x hematemesis, and lightheadedness. In the ED, the patient received a workup consisting of the following: - POC US: Ordered for area of swelling at superior aspect of incision. Showed a small fluid collection at the superior aspect of her incision, but the incision itself was clean and dry without erythemaor drainage. This is likely a suture reaction -- it could be an early abscess, but with normal CRP much less likely. - XR scoliosis films: Ordered due to acute increase in pain - wanted to verify hardware is intact and there is no evidence of failure. In addition, patient has been retching with vomiting, which placessignificant stress on the thoracic spine. Showed no acute changes, appear to similar to previous films obtained 10 days ago. No evidence of hardware failure. - CBC/CRP/BMP: Ordered to rule out post-operative infection. Returned without abnormality. Normal WBC count, CRP is normal (from mildly elevated 10 days ago), and Hgb 11.1 (from 10.7). In addition, the patient reports the numbness in her right leg improved throughout the time spent inthe ED. She has maintained bowel and bladder function and there are no signs of cauda equina syndrome. Assessment: Dakota is a 20 year-old female with a history of multiple spinal surgeries for scoliosis who recentlyunderwent re-insertion of spinal instrumentation from T4- L4 with pseudoarthrosis repair at four levels on 08/09/[address] Spencer, who returns to the ED today for evaluation after 24-48 hours of increased pain, RLE numbness, vomiting, and lightheadedness. Workup in the ED not concerning for infection or hardware failure. Area of swelling over superior aspect of the incision could be reaction to deep suture. Recommendations: - Recommend continued monitoring of the area of swelling, particularly for any overlying skin changes, new drainage, or surrounding redness. Do not recommend antibiotics at this time. - Continue general spinal precautions (no excessive bending/lifting > 10 lbs/twisting) - Anti-emetics PRN - Follow-up with Dr. Spencer as scheduled, or sooner if recommended by Dr. Spencer. I have sent a staff message to him alerting him of Dakota's visit to the ED this evening. Ronald Lee MD Orthopaedic Surgery PGY-4 #: [phone] VACUUM TESTER documented in this encounter Plan of Treatment Pending Results Name Type Priority Associated Diagnoses Date/Ti me POC US SOFT TISSUE Imaging STAT 10:02 PM CAN VACUUM TESTER Scheduled Orders Name Type Priority Associated Diagnoses Order S chedule POC US SOFT TISSUE Imaging STAT One time imaging for 1 Occurrences sta rting 08/28/2020 unti l 08/28/2020 documented as of this encounter Procedures Procedure Name Priority Date/Time Associated Comments Diagnosis XR SPINE COMPLETE STAT 08/28/2020 10:37 Result s for this SCOLIOSIS 2 VIEWS PM CAN VACUUM TESTER procedure are in the results section. CBC WITH PLATELETS & STAT 08/28/2020 10:21 Res ults for this DIFFERENTIAL PM CAN VACUUM TESTER procedure are i n the results section. CRP INFLAMMATION STAT 08/28/2020 10:21 Results for this PM CAN VACUUM TESTER procedure are i n the results section. COMPREHENSIVE STAT 08/28/2020 10:21 Results fo r this METABOLIC PANEL PM CAN VACUUM TESTER procedure ar e in the results section. documented in this encounter Results XR Spine Complete Scoliosis 2 Views (08/28/2020 10:37 PM CAN VACUUM TESTER) Anatomical Region Laterality Modality Spine Computed Radiography Specimen (Source) Anatomical Location Collection Method / Collectio n Time Received Time / Laterality Volume Impressions 08/29/2020 7:40 AM CAN VACUUM TESTER Impression: No evidence of hardware failure or migration. I have personally reviewed the examinati on and initial interpretation and I agree with the findings. PREET STEELE MD Narrative 08/29/2020 7:40 AM CAN VACUUM TESTER Exam: XR SPINE COMPLETE SCOLIOSIS 2 VW, 08/28/2020 10:37 PM Indication: 20 year old with multiple sp inal fusions, now with 1 day of numbness Comparison: 08/18/2020 x-ray Findings: Two views standing scoliosis. Posterior fusion hardware is present from T4 to L4. No evidence of hardware f ailure or migration. Right-sided scoliotic convexity centered over the L2 vertebral body is unchanged. Visualized lung beltran are cl ear. Cardiac silhouette is normal size. Nonspecific bowel gas patte rn. Procedure Note Preet Steele MD - 08/29/2020Form atting of this note might be different from the original. Exam: XR SPINE COMPLETE SCOLIOSIS 2 VW, 08/28/2020 10:37 PM Indication: 20 year old with multiple sp inal fusions, now with 1 day of numbness Comparison: 08/18/2020 x-ray Findings: Two views standing scoliosis. Posterior fusion hardware is present from T4 to L4. No evidence of hardware f ailure or migration. Right-sided scoliotic convexity centered over the L2 vertebral body is unchanged. Visualized lung beltran are cl ear. Cardiac silhouette is normal size. Nonspecific bowel gas patte rn. Impression: No evidence of hardware fail ure or migration. I have personally reviewed the examinati on and initial interpretation and I agree with the findings. PREET STEELE MD Kristel Benítez MD IMG DIAGNOSTIC IMAGING ORDER DANO CRP inflammation (08/28/2020 10:21 PM CAN VACUUM TESTER) athologist Signature CRP Inflammation <2.9 0.0 - 8.0 08/28/2020 [place] mg/L 11:05 PM [facility] Specimen Anatomical Collection Method Collection Time Receive d Time (Source) Location / / Volume Laterality Blood specimen 08/28/2020 10:21 1 (specimen) PM CAN VACUUM TESTER 10:37 PM CAN VACUUM TESTER Kristel Benítez MD LAB - BLOOD ORDERABLES Performing Organization Address City/State/ZIP Code Phon e Number M [facility] [address] [address] [facility] [address] [address], [facility] [phone] Comprehensive metabolic panel (08/28/2020 10:21 PM CAN VACUUM TESTER) athologist Signature Sodium 141 133 - 144 08/28/2020 [facility] mmol/L 10:56 PM [facility] Potassium 3.6 3.4 - 5.3 08/28/2020 [facility] mmol/L 10:56 PM [facility] Chloride 108 96 - 110 08/28/2020 [facility] mmol/L 10:56 PM [facility] Carbon Dioxide 26 20 - 32 08/28/2020 [facility] mmol/L 11:02 PM [facility] Anion Gap 7 3 - 14 08/28/2020 [facility] mmol/L 11:02 PM [facility] Glucose 80 70 - 99 08/28/2020 [facility] mg/dL 11:02 PM [facility] Urea Nitrogen 10 7 - 30 08/28/2020 [facility] mg/dL 11:02 PM [facility] Creatinine 0.65 0.50 - 08/28/2020 [facility] 1.00 mg/dL 11:02 PM [facility] GFR Estimate >90 >60 08/28/2020 [facility] mL/min/{1. 11:02 PM [facility] 73_[id number]} [facility] Comment: Non GFR Calc Starting 07/22/2018, serum creatinine ba sed estimated GFR (eGFR) will be calculated using the Chronic Kidney Dise [facility] Epidemiology Collaboration (CKD-EPI) equation. GFR Estimate If >90 >60 mL/min/{1.73_m2} 08/28/2020 11 :[address] [facility] Comment: GFR Calc Starting 07/22/2018, serum creatinine ba sed estimated GFR (eGFR) will be calculated using the Chronic Kidney Dise [facility] Epidemiology Collaboration (CKD-EPI) equation. Calcium 8.5 8.5 - 10.1 mg/dL 08/28/2020 11:02 PM [facility] Bilirubin Total 0.2 0.2 - 1.3 mg/dL 08/28/2020 11:05 P M [facility] Albumin 3.6 3.4 - 5.0 g/dL 08/28/2020 11:[address] [facility] Protein Total 7.0 6.8 - 8.8 g/dL 08/28/2020 11:05 PM [facility] Alkaline Phosphatase 113 40 - 150 U/L 08/28/2020 11:05 PM [facility] ALT 15 0 - 50 U/L 08/28/2020 11:05 PM [facility] AST 12 0 - 35 U/L 08/28/2020 11:05 PM [facility] Specimen Anatomical Collection Method Collection Time Receive d Time (Source) Location / / Volume Laterality Blood specimen 08/28/2020 10:21 1 (specimen) PM CAN VACUUM TESTER 10:37 PM CAN VACUUM TESTER Kristel Benítez MD LAB - BLOOD ORDERABLES Performing Organization Address City/State/ZIP Code Phon e Number M [facility] [address] [address] [phone] [facility] [address] [place] [address] [facility] [address] [address], [place] [phone] (ABNORMAL) CBC with platelets differential (08/28/2020 10:21 PM CAN VACUUM TESTER) [facility] Method Time Signature WBC 7.3 4.0 - 08/28/2020 [facility] 11.0 10:42 PM [facility] 10e9/L [facility] RBC Count 3.77 (L) 3.8 - 5.2 08/28/2020 [facility] 10e12/L 10:42 PM [facility] Hemoglobin 11.1 (L) 11.7 - 08/28/2020 [facility] 15.7 g/dL 10:42 PM [facility] Hematocrit 34.5 (L) 35.0 - 08/28/2020 [facility] 47.0 % 10:42 PM [facility] MCV 92 78 - 100 08/28/2020 [facility] fl 10:42 PM [facility] MCH 29.4 26.5 - 08/28/2020 [facility] 33.0 pg 10:42 PM [facility] MCHC 32.2 31.5 - 08/28/2020 [facility] 36.5 g/dL 10:42 PM [facility] RDW 12.0 10.0 - 08/28/2020 [facility] 15.0 % 10:42 PM [facility] Platelet Count 633 (H) 150 - 450 08/28/2020 [facility] 10e9/L 10:42 PM [facility] Diff Method Automated 08/28/2020 [facility] Method 10:42 PM [facility] % Neutrophils 39.8 % 08/28/2020 [facility] 10:42 PM [facility] % Lymphocytes 48.3 % 08/28/2020 [facility] 10:42 PM [facility] % Monocytes 8.5 % 08/28/2020 [facility] 10:42 PM [facility] % Eosinophils 2.5 % 08/28/2020 [facility] 10:42 PM [facility] % Basophils 0.8 % 08/28/2020 [facility] 10:42 PM [facility] % Immature 0.1 % 08/28/2020 [facility] Granulocytes 10:42 PM [facility] Nucleated RBCs 0 0 /100 08/28/2020 [facility] 10:42 PM [facility] Absolute 2.9 1.6 - 8.3 08/28/2020 [facility] Neutrophil 10e9/L 10:42 PM [facility] Absolute 3.5 0.8 - 5.3 08/28/2020 [facility] Lymphocytes 10e9/L 10:42 PM [facility] Absolute 0.6 0.0 - 1.3 08/28/2020 [facility] Monocytes 10e9/L 10:42 PM [facility] Absolute 0.2 0.0 - 0.7 08/28/2020 [facility] Eosinophils 10e9/L 10:42 PM [facility] Absolute 0.1 0.0 - 0.2 08/28/2020 [facility] Basophils 10e9/L 10:42 PM [facility] Abs Immature 0.0 0 - 0.4 08/28/2020 [facility] Granulocytes 10e9/L 10:42 PM [facility] Absolute 0.0 08/28/2020 [facility] Nucleated RBC 10:42 PM [facility] Specimen Anatomical Collection Method Collection Time Receive d Time (Source) Location / / Volume Laterality Blood specimen 08/28/2020 10:21 1 (specimen) PM CAN VACUUM TESTER 10:37 PM CAN VACUUM TESTER Kristel Benítez MD LAB - BLOOD ORDERABLES Performing Organization Address City/State/ZIP Code Phon e Number [facility] [address] [place] [address] [facility] documented in this encounter Visit Diagnoses Diagnosis Pain Generalized pain documented in this encounter Administered Medications Inactive Administered Medications - up to 3 most recent administrations Medication Order MAR Action Action Date Dose Rate Site lidocaine (LMX4) cream Topical, EVERY 1 HOUR PRN, pain, with VA D insertion or accessing implanted port., Starting on 08/28/20 at 2206, Do NOT give if patient has a history of allergy to any local anesthetic or any korey prod uct. Apply at least 30 minutes prior to VAD insertion, port access or needlesticks. In divided doses as needed for size of site for insertion with MAX dose per patient weight: LESS than 5 kg = 1 g 5-10 kg = 2 g GREATER than 10 kg = 2.5 g. (?? of 5 g tube) lidocaine 1 % 0.2-0.4 mL 0.2-0.4 mL, Other, EVERY 1 HOUR PRN, pain with VAD ins ertion., Starting on 08/28/20 at 2206, Do NOT give if patient has a history of allergy to any local anesthetic or any korey product. MAX d ose 1 mL subcutaneously OR intradermally in divided doses as needed for VAD insertion. morphine (PF) injection 2 mg Given 08/28/2020 11:08 PM CAN VACUUM TESTER 2 mg 2 mg, Intravenous, ONCE, Administer over 4-5 Minutes, On 08/28/20 at 2305, For 1 dose, For ordered IV doses 0.1-15 mg give IV Push undiluted over 4-5 minutes. oxyCODONE (ROXICODONE) tablet 5 mg Given 08/29/2020 12:32 AM CAN VACUUM TESTER 5 mg 5 mg, Oral, ONCE, On 08/29/20 at 0015, For 1 dose sodium chloride (PF) 0.9% PF flush 0.2-5 mL 0.2-5 mL, Intracatheter, EVERY 1 MIN PRN , line flush, peripheral line flush post medications or blood draws, Starting on Sat08/28/20 at 2206, 0.2-3 mL post IV meds 0.2-5 mL post blood draw Volume is dependent on cathet er size. sodium chloride (PF) 0.9% PF flush 3 mL 3 mL, Intracatheter, EVERY 8 HOURS, Firs t dose on Sat08/28/20 at 2210, And Q1H PRN, to lock peripheral IV dormant line. documented in this encounter Active and Recently Administered Medications Times are shown in CAN VACUUM TESTER. Scheduled Medication Order 08/27/2020 08/28/2020 08/29/2020 morphine (PF) injection 2 mg (COMPLETED) 2308 (Given - Provider: Jazlyn King RN) 2 mg, Intravenous, ONCE, Administer over 4-5 Minutes, 08/28/20 at 2305, For 1 dose, For ordered IV doses 0.1-15 mg give IV Push undiluted over 4-5 minutes. oxyCODONE (ROXICODONE) tablet 5 mg (COMPLETED) 31 (Given - Provider: Jazlyn King RN) 5 mg, Oral, ONCE, 08/29/20 at 0015, For 1 dose sodium chloride (PF) 0.9% PF flush 3 mL 2351 (Canceled Entry - Provider: Jazlyn King RN) 3 mL, Intracatheter, EVERY 8 HOURS, Firs t dose on 08/28/20 at 2210, And Q1H PRN, to lock peripheral IV dormant line. PRN Medication Order 08/27/2020 08/28/2020 08/29/2020 lidocaine (LMX4) cream Topical, EVERY 1 HOUR PRN, pain, with VA D insertion or accessing implanted port., Starting 08/28/20 at 2206, Do NOT give if patient has a history of allergy to any local anesthetic or any korey pro duct. Apply at least 30 minutes prior to VAD insertion, port access or needlesticks. In divided doses as needed for size of site for insertion with MAX dose per patient weight: LESS than 5 kg = 1 g 5-10 kg = 2 g GREATER than 10 kg = 2.5 g. (?? of 5 g tube) lidocaine 1 % 0.2-0.4 mL 2351 (Canceled Entry - Provider: Jazlyn King RN) 0.2-0.4 mL, Other, EVERY 1 HOUR PRN, elmer n with VAD insertion., Starting 08/28/20 at 2206, Do NOT give if patient has a history of allergy to any local anesthetic or any korey product. MAX dose 1 mL subcutaneously OR intradermally in divided doses as needed for VAD insertion. sodium chloride (PF) 0.9% PF flush 0.2-5 mL 0.2-5 mL, Intracatheter, EVERY 1 MIN PRN , line flush, peripheral line flush post medications or blood draws, Starting 08/28/20 at 2206, 0.2-3 mL post IV meds 0.2-5 mL post blood draw Volume is dependent on catheter size. documented in this encounter Additional Health Concerns Infection Onset Date Last Indicated Resolved Time COVID-19 08/18/2020 08/18/2020 09/08/2020 11:39 PM CAN VACUUM TESTER documented as of this encounter Care Teams Assistant Case Manager Relationship Specialty Start Date End Date AliseJosh hernandez PCP - General Family Medicine 08/09/[address] [id number] Julian Spencer MD MD Orthopedics 03/08/[address] [place] [address] Mariposa Atwood Assigned PCP 04/29/20 11/12/20 MD Nettie [address] [facility] [address] [place], [place] [phone] Julian Spencer MD Assigned Musculoskeletal 05/27/[address] Provider [place], [place] [phone] Eugenio Finney Assigned Pediatric 06/19/2005/07 MD David Specialist Provider [address] [facility] [address] [place], [place] [address] documented as of this encounter
--- OUTSIDE RECORDS SUMMARY | 2022-06-18 11:57 | XMS_ITS | Encounter Summary ---
:2001 Author Organization [facility] Address [address] [place] [address] Care Team Providers Name Role Phone Julian Spencer MD Unavailable Mariposa Atwood MD Unavailable [phone] Julian Spencer MD Unavailable Eugenio Finney MD Unavailable [phone] Josh Carrero Primary Care Provider Reason for Visit Reason Comments RECHECK wound check f/u from ER, DOS 08/09/20 Removal of instrumental for transitional segment vert Encounter Details Date Type Department Care Team Description 09/01/2020 Office Visit [facility] Julian Spencer Acquired v on Willebrand disease (H) (Primary Dx); Orthopedic Clinic MD Darell History of fusion of spine for scoliosis [address] [place] [phone] Social History Tobacco Use Types Packs/Day [...] with No / Unsure 09/01/2020 7:58 AM IMPORT/EXPORT FREIGHT FORWARDER someone who was confirmed or suspected to have Coronavirus / COVID-19? documented as of this encounter Progress Notes Julian Spencer MD - 09/01/2020 8:00 AM CST HISTORY OF PRESENT ILLNESS: Dakota mckeon having had surgery on 08/09/2020 for revision of posteriorspine fusion that was done for scoliosis where we found multiple level pseudoarthrosis. She has beenhaving pain at the upper portion of her incision and various skin changes which have changed over time. She had a positive and then negative COVID test and she presents today at the urging of her primary physician who was concerned about infection. PHYSICAL EXAMINATION: Physical exam shows an appropriately developed young adult female in mild discomfort. Evaluation of her spine shows that she is appropriately resorbing the subcutaneous sutures inthe cephalad portion of the incision. There is a well-healed 0.5 cm eschar about 10 cm lateral. She is slightly medicaid billing specialist the area, but there is no evidence of erythema. Lab tests from the ER showed no elevated markers. She also describes right anterior thigh pain consistent with a lateral femoral cutaneous nerve problem. ASSESSMENT: Wound healing and confounding variables of warmth in the area and tenderness. PLAN: I do not think that there is overt infection at this point in time. Given her potentially positive COVID that would confound all lab markers, but if they were negative in the ER, then I am not particularly worried about it. I think at this point in time unless her wound opens up and starts draining, I would not intervene. I do not think that a course of antibiotics would be appropriate as we would not know what we are treating, and there are side effect profiles of the antibiotics. If we were concerned about infection, the most typical infection would be Propionibacterium acnes. I guess now that is called Cutibacterium acnes, but again, I would not intervene unless the wound opened up and started draining. If it did, we discussed that what it would require would be an irrigation, debridement and placement of a vacuum-assisted closure device, gaining control of the infection and then a delayed primary closure of the wound. They are okay with this explanation and are willing to see what course it takes. RT/EXPORT FREIGHT FORWARDER documented in this encounter Nursing Notes Reyna Chávez, ZAC - 09/01/2020 8:00 AM CST Reason For Visit: Chief Complaint Patient presents with ??? RECHECK wound check f/u from ER, DOS 08/09/20 Removal of instrumental for transitional segment vert Primary MD: Josh Carrero Ref. MD: Est Database Administration Project Manager?No Occupation??Student. ?? Date of injury:??No Type of injury:??No. ?? Date of surgery:??Several surgeries Type of surgery:??Fusions and hardware removal, refused last 08/09/2020 Reinsertion of segmental spinal instrumentation T4 to L4 -22 modifier. Pseudoarthrosis repair at 4 levels. Image-guided spine surgery. Skin biopsy. Scar revision, 44 cm. ?? Smoker:??No Request smoking cessation information:??No ?? There were no vitals taken for this visit. Pain Assessment Patient's Stated Pain Goal: 8 Primary Pain Location: Back Oswestry (LOKESH) Questionnaire OSWESTRY DISABILITY INDEX 07/21/2020 Count 9 Sum 29 Oswestry Score (%) 64.44 Some recent data might be hidden Visual Analog Pain Scale Back Pain Scale 0-10: 8 Right leg pain: 0 Left leg pain: 0 Neck Pain Scale 0-10: 0 Right arm pain: 0 Left arm pain: 0 Promis 10 Assessment PROMIS 10 07/21/2020 In general, would you say your health is: Very good In general, would you say your quality of life is: Poor In general, how would you rate your physical health? Poor In general, how would you rate your mental health, including your mood and your ability to think? Fair In general, how would you rate your satisfaction with your social activities and relationships? Poor In general, please rate how well you carry out your usual social activities and roles Poor To what extent are you able to carry out your everyday physical activities such as walking, climbingstairs, carrying groceries, or moving a chair? A little How often have you been bothered by emotional problems such as feeling anxious, depressed or irritable? Always How would you rate your fatigue on average? Very severe How would you rate your pain on average? 0 = No Pain to 10 = Worst Imaginable Pain 9 In general, would you say your health is: 4 In general, would you say your quality of life is: 1 In general, how would you rate your physical health? 1 In general, how would you rate your mental health, including your mood and your ability to think? 2 In general, how would you rate your satisfaction with your social activities and relationships? 1 In general, please rate how well you carry out your usual social activities and roles. (This includes activities at home, at work and in your community, and responsibilities as a parent, child, spouse,employee, friend, etc.) 1 To what extent are you able to carry out your everyday physical activities such as walking, climbingstairs, carrying groceries, or moving a chair? 2 In the past 7 days, how often have you been bothered by emotional problems such as feeling anxious, depressed, or irritable? 5 In the past 7 days, how would you rate your fatigue on average? 5 In the past 7 days, how would you rate your pain on average, where 0 means no pain, and 10 means worst imaginable pain? 9 Global Mental Health Score 5 Global Physical Health Score 6 PROMIS TOTAL - SUBSCORES 11 Some recent data might be hidden Reyna Chávez LPN RT/EXPORT FREIGHT FORWARDER documented in this encounter Plan of Treatment Not on filedocumented as of this encounter Visit Diagnoses Diagnosis Acquired von Willebrand disease - Primar y Von Willebrand's disease History of fusion of spine for scoliosis documented in this encounter Additional Health Concerns Infection Onset Date Last Indicated Resolved Time COVID-19 08/18/2020 08/18/2020 09/08/2020 11:39 PM IMPORT/EXPORT FREIGHT FORWARDER documented as of this encounter Care Teams Business Practices Officer Relationship Specialty Start Date End Date Josh Carrero PCP - General Family Medicine 08/09/[address] [address] Julian Spencer MD MD Orthopedics 03/08/20 [facility] [phone] [place], [place] [address] Mariposa Atwood PCP 04/29/20 11/12/20 MD Nettie [address] [place] [address] Julian Spencer MD Assigned Musculoskeletal 05/27/[address] [place] [address] Eugenio Finney Assigned Pediatric 06/19/2005/07 MD David Specialist Provider [address] [facility] 96 [place], [place] [phone] documented as of this encounter
--- OUTSIDE RECORDS SUMMARY | 2022-06-18 11:57 | XMS_ITS | Encounter Summary ---
:2001 Author Organization [facility] Address [address] [place] [address] Care Team Providers Name Role Phone Julian Spencer MD Unavailable Mariposa Atwood MD Unavailable [phone] Julian Spencer MD Unavailable Eugenio Finney MD Unavailable [phone] Josh Carrero Primary Care Provider Reason for Referral Diagnostic Imaging XR (Routine) - Closed Specialty Diagnoses / Procedures Referred By Contact Refer red To Contact Diagnoses S/P spinal Julian Major MD Procedures XR Spine Complete Scoliosis 2 Views [address] [place] [address] Referral ID Status Reason Start Date Expiration Date Visits Requ ested Visits Authorized [id number] Closed 09/16/2020 09/16/2021 1 1 T SHOP STENOGRAPHER Diagnostic Imaging XR (Routine) - Closed Specialty Diagnoses / Procedures Referred By Contact Refer red To Contact Diagnoses S/P spinal Julian Major MD Procedures XR Six Foot Standing Extremities [address] [place], [place] [address] Referral ID Status Reason Start Date Expiration Date Visits Requ ested Visits Authorized [id number] Closed 09/16/2020 09/16/2021 1 1 T SHOP STENOGRAPHER Encounter Details Date Type Department Care Team Description 09/16/2020 Orders Only [facility] Julian Spencer S/P spinal surgery Orthopedic Clinic MD Darell (Primary Dx) [address] [place] [address] [address] [place] [phone] Social History Tobacco Use Types Packs/Day [...] with No / Unsure 09/01/2020 7:58 AM PRINT SHOP STENOGRAPHER someone who was confirmed or suspected to have Coronavirus / COVID-19? documented as of this encounter Plan of Treatment Not on filedocumented as of this encounter Procedures Procedure Name Priority Date/Time Associated Comments Diagnosis XR SPINE COMPLETE Routine 09/22/2020 8:26 AM S/P spinal surger y Results for this SCOLIOSIS 2 VIEWS PRINT SHOP STENOGRAPHER procedure are in the results section. XR SIX FOOT STANDING Routine 09/22/2020 8:26 AM S/P spinal teresa jenaro Results for this EXTREMITIES PRINT SHOP STENOGRAPHER procedure are i n the results section. documented in this encounter Results XR Spine Complete Scoliosis 2 Views (09/22/2020 8:26 AM PRINT SHOP STENOGRAPHER) Anatomical Region Laterality Modality Spine Computed Radiography Specimen (Source) Anatomical Location Collection Method / Collectio n Time Received Time / Laterality Volume Impressions 09/26/2020 8:59 AM PRINT SHOP STENOGRAPHER Impression: 1. Post spinal instrumentation from T4 t o L4. Intact hardware. 2. Mild convexed right curvature of the thoracolumbar/lumbar spine. 3. No ??global sagittal imbalance. 4. Weight bearing axis as detailed above . 5. Left lower extremity longer than righ t lower extremity. CHATO OSMAN MD Narrative 09/26/2020 8:59 AM PRINT SHOP STENOGRAPHER Exam: Full body radiographs using EOS History: [...] No substantial global coronal imbalance. Sagittal Vertical Xenia (A vertical line drawn from the center [...] No substantial global coronal imbalance. Sagittal Vertical Xenia (A vertical line drawn from the center [...] MD IMG DIAGNOSTIC IMAGING ORDER DANO XR Six Foot Standing Extremities (09/22/2020 8:26 AM PRINT SHOP STENOGRAPHER) Anatomical Region Laterality Modality Lower Extremity Computed Radiography Specimen (Source) Anatomical Location Collection Method / Collectio n Time Received Time / Laterality Volume Impressions 09/26/2020 8:59 AM PRINT SHOP STENOGRAPHER Impression: 1. Post spinal instrumentation from T4 t o L4. Intact hardware. 2. Mild convexed right curvature of the thoracolumbar/lumbar spine. 3. No ??global sagittal imbalance. 4. Weight bearing axis as detailed above . 5. Left lower extremity longer than righ t lower extremity. CHATO OSMAN MD Narrative 09/26/2020 8:59 AM PRINT SHOP STENOGRAPHER Exam: Full body radiographs using EOS History: [...] No substantial global coronal imbalance. Sagittal Vertical Xenia (A vertical line drawn from the center [...] No substantial global coronal imbalance. Sagittal Vertical Xenia (A vertical line drawn from the center [...] status documented in this encounter Care Teams Disability Hearing Officer Relationship Specialty Start Date End Date Josh Carrero PCP - General Family Medicine 08/09/[address] [address] Julian Spencer MD MD Orthopedics 03/08/[address] [place] [address] Mariposa Atwood Assigned PCP 04/29/20 11/12/20 MD Nettie [address] [place], [place] [phone] Julian Spencer MD Assigned Musculoskeletal 05/27/[address] [place] [address] Eugenio Finney Assigned Pediatric 06/19/2005/07 MD David Specialist Provider [address] [facility] 96 [place] [address] documented as of this encounter
--- OUTSIDE RECORDS SUMMARY | 2022-06-18 11:57 | XMS_ITS | Encounter Summary ---
:2001 Author Organization [facility] Address [address] [place] [address]. [place] [address] Care Team Providers Name Role Phone Julian Spencer MD Unavailable Mariposa Atwood MD Unavailable [phone] Julian Spencer MD Unavailable Eugenio Finney MD Unavailable [phone] Josh Carrero Primary Care Provider Urbano Price MD Unavailable Joe Leo MD Unavailable Joe Leo MD Unavailable Douglas Gonzalez MD Unavailable [phone] Douglas Gonzalez MD Unavailable [phone] Reason for Visit Reason Onset Date Comments Appointment 09/02/2020 Encounter Details Date Type Department Care Team Description 09/02/2020 Telephone [facility] Pediatric Estee Rowe CNP Appointment [address] [address] [address] [place] [address] [place], [place] [address] Social History Tobacco Use Types Packs/Day Years Used Date Smoking Tobacco: Never Smokeless Tobacco: Never Alcohol Use Standard Drinks/Week Comments Not Currently 0 (1 standard drink = 0.6 oz pure alcoho l) Sex Assigned at Date Recorded Female 12/02/2020 1:42 PM CDT COVID-19 Exposure Response Date Recorded In the last month, have you been in contact with No / Unsure 09/01/2020 7:58 AM MANUFACTURE SPECIALIST someone who was confirmed or suspected to have Coronavirus / COVID-19? documented as of this encounter Plan of Treatment Not on filedocumented as of this encounter Visit Diagnoses Not on filedocumented in this encounter Additional Health Concerns Infection Onset Date Last Indicated Resolved Time COVID-19 08/18/2020 08/18/2020 09/08/2020 11:39 PM MANUFACTURE SPECIALIST documented as of this encounter Care Teams Mat Tester Relationship Specialty Start Date End Date Josh Carrero PCP - General Family Medicine 08/09/[address] [phone] Julian Spencer MD Orthopedics 03/08/20 MD Darell [address] [place] [phone] Mariposa Atwood Assigned PCP 04/29/20 11/12/20 MD Nettie [address] [place] [phone] Julian Spencer Assigned Musculoskeletal 05/27/20 MD Darell Provider [facility] [address] [address] Eugenio Finney Assigned Pediatric 06/19/2005/07 MD David Specialist Provider [address] [facility] [address] [facility] [address] [place] [address] Urbano Price Assigned PCP 11/13/20 MD Esteban [address] [place] [address] Joe Leo MD Physical Medicine and 04/11/21 Rehabilitation [address] [address] Joe Leo, Assigned Neuroscience 04/30/21 MD Provider [address] [phone] Douglsa Gonzalez MD Pediatrics 05/29/21 MD Julian [address] [place] [address] Douglas Gonzalez Assigned Pediatric 06/04/21 MD Julian Specialist Provider [address] [place] [address] documented as of this encounter
--- OUTSIDE RECORDS SUMMARY | 2022-06-18 11:57 | XMS_ITS | Encounter Summary ---
:2000 Author Organization [facility] Address [address] [place] [address] Care Team Providers Name Role Phone Julian Spencer MD Unavailable Mariposa Atwood MD Unavailable [phone] Julian Spencer MD Unavailable Eugenio Finney MD Unavailable [phone] Josh Carrero Primary Care Provider Encounter Details Date Type Department Care Team Description 09/22/2020 Travel Social History Tobacco Use Types Packs/Day [...] with No / Unsure 09/22/2020 8:47 AM STOCK DIGGER someone who was confirmed or suspected to have Coronavirus / COVID-19? documented as of this encounter Plan of Treatment Not on filedocumented as of this encounter Visit Diagnoses Not on filedocumented in this encounter Care Teams Hammer Smith Relationship Specialty Start Date End Date Josh Carrero PCP - General Family Medicine 08/09/[address] [address] Julian Spencer MD MD Orthopedics 03/08/[address] [place] [address] Mariposa Atwood Assigned PCP 04/29/20 11/12/20 MD Nettie [address] [facility] [place] [address] Julian Spencer MD Assigned Musculoskeletal 05/27/[address] [place] [address] Eugenio Finney Assigned Pediatric 06/19/2005/07 MD David Specialist Provider [address] [facility] [address] [place] [address] documented as of this encounter
--- OUTSIDE RECORDS SUMMARY | 2022-06-18 11:57 | XMS_ITS | Encounter Summary ---
:2000 Author Organization [facility] Address [address] [place] [address] Care Team Providers Name Role Phone Julian Spencer MD Unavailable Mariposa Atwood MD Unavailable [phone] Julian Spencer MD Unavailable Eugenio Finney MD Unavailable [phone] Josh Carrero Primary Care Provider Encounter Details Date Type Department Care Team Description 09/22/2020 Orders Only [facility] for hemorrhage [place] associated with surgery [address] [facility] 1st Floor [place] [phone] Social History Tobacco Use Types Packs/Day Years Used Date Smoking Tobacco: Never Smokeless Tobacco: Never Alcohol Use Standard Drinks/Week Comments Not Currently 0 (1 standard drink = 0.6 oz pure alcoho l) Sex Assigned at Date Recorded Female 12/02/2020 1:42 PM CDT COVID-19 Exposure Response Date Recorded In the last month, have you been in contact with No / Unsure 09/22/2020 8:47 AM SALESPERSON HOSIERY someone who was confirmed or suspected to have Coronavirus / COVID-19? documented as of this encounter Plan of Treatment Not on filedocumented as of this encounter Procedures Procedure Name Priority Date/Time Associated Comments Diagnosis SEND OUTS MISC TEST Routine 09/22/2020 8:43 AM At risk for Re sults for this SALESPERSON HOSIERY hemorrhage procedure are i n associated with the results surgery section. LABORATORY Routine 09/22/2020 8:43 AM At risk for Results f or this MISCELLANEOUS ORDER SALESPERSON HOSIERY hemorrhage procedur e are in associated with the results surgery section. documented in this encounter Results Send outs misc test (09/22/2020 8:43 AM SALESPERSON HOSIERY) Analysis Performed At Patho logist Time Signature Lab Scanned SEND OUTS MISYS Result MISC TEST-Scann ed Specimen Anatomical Collection Method Collection Time Receive d Time (Source) Location / / Volume Laterality 09/22/2020 8:43 AM 8:45 SALESPERSON HOSIERY AM SALESPERSON HOSIERY Mariposa Atwood MD LAB - BLOOD ORDERABLES Performing Organization Address City/State/ZIP Code Phon e Number MISYS Platelet disorders Gene Sequencing Panel with reflex to deletion/duplication for all available genesto [facility] Molecular Genetics Laboratory: Laboratory Miscellaneous Order (09/22/2020 8:43 AM SALESPERSON HOSIERY) Component Value Ref Test Analysis Performed At Patholo gist Range Method Time Signature Miscellaneous Specimen Received, Reordered and sent to Performing laboratory - Report to follow upon 09/22/2020 [facility] Test completion. 4:56 PM SALESPERSON HOSIERY [facility] Specimen Anatomical Collection Method Collection Time Receive d Time (Source) Location / / Volume Laterality Blood specimen VENOUS BLOOD / 09/22/2020 8:43 AM 09/22 8:45 (specimen) Unknown SALESPERSON HOSIERY AM SALESPERSON HOSIERY Mariposa Atwood MD LAB - BLOOD ORDERABLES Performing Organization Address City/State/ZIP Code Phon e Number [address] [address] [facility] documented in this encounter Visit Diagnoses Diagnosis At risk for hemorrhage associated with s urgery documented in this encounter Care Teams Door Cutter Relationship Specialty Start Date End Date Josh Carrero PCP - General Family Medicine 08/09/[address] [address] Julian Spencer MD MD Orthopedics 03/08/[address] [place], [place] [phone] Mariposa Atwood Assigned PCP 04/29/20 11/12/20 MD Nettie [address] [place] [address] Julian Spencer MD Assigned Musculoskeletal 05/27/[address] [place] [address] Eugenio Finney Assigned Pediatric 06/19/2005/07 MD David Specialist Provider [address] [facility] [address] [place] [address] documented as of this encounter
--- OUTSIDE RECORDS SUMMARY | 2022-06-18 11:57 | XMS_ITS | Encounter Summary ---
:2000 Author Organization [facility] Address [address] [place] [address] Care Team Providers Name Role Phone Julian Spencer MD Unavailable Mariposa Atwood MD Unavailable [phone] Julian Spencer MD Unavailable Eugenio Finney MD Unavailable [phone] Josh Carrero Primary Care Provider Encounter Details Date Type Department Care Team Description 08/28/2020 Travel Social History Tobacco Use Types Packs/Day [...] with No / Unsure 08/28/2020 8:[address]/MEDICAL INTERPRETER someone who was confirmed or suspected to have Coronavirus / COVID-19? documented as of this encounter Plan of Treatment Not on filedocumented as of this encounter Visit Diagnoses Not on filedocumented in this encounter Additional Health Concerns Infection Onset Date Last Indicated Resolved Time COVID-19 08/18/2020 08/18/2020 09/08/2020 11:[address]/MEDICAL INTERPRETER documented as of this encounter Care Teams Distribution Designer Relationship Specialty Start Date End Date Josh Carrero PCP - General Family Medicine 08/09/20 [place] [address] [place] [address] Julian Spencer MD MD Orthopedics 03/08/[address] [place], [place] [phone] Mariposa Atwood Assigned PCP 04/29/20 11/12/20 MD Nettie [address] [facility] [place], [place] [phone] Julian Spencer MD Assigned Musculoskeletal 05/27/[address] Provider [place], [place] [id number] Eugenio Finney Assigned Pediatric 06/19/2005/07 MD David Specialist Provider [address] [facility] 96 [place], [place] [id number] documented as of this encounter
--- OUTSIDE RECORDS SUMMARY | 2022-06-18 11:57 | XMS_ITS | Encounter Summary ---
:2000 Author Organization [facility] Address [address] [place] [address]. [place] [address] Care Team Providers Name Role Phone Julian Spencer MD Unavailable Mariposa Atwood MD Unavailable [phone] Julian Spencer MD Unavailable Eugenio Finney MD Unavailable [phone] Josh Carrero Primary Care Provider Reason for Visit Reason Comments Follow Up PACCT Encounter Details Date Type Department Care Team Description 08/31/2020 Virtual Visit [facility] Lisa Douglas Felisa jain post- operative pain (Primary Dx); Discovery Dixon Jordan MD Inflammation of operative incision; Special[facility] S/P spinal fusion; [address] [place] [address] [place] [phone] Social History Tobacco Use Types Packs/Day Years [...] documented as of this encounter Progress Notes Douglas Gonzalez MD - 08/31/2020 1:00 PM CST Images from the original note were not included. Pain and Advanced/Complex Care Team (PACCT) [facility], Follow-up Visit Dakota Casiano Age: [age] year old Date of : 2000 Date: Aug 31, 2020 Primary care provider: Josh Carrero Reason and/or Goals of Clinic Visit: Post-hospitalization follow-up, symptom assessment, medication management, and treatment adjustment. Dakota Casiano was accompanied by her mother (Tiffany), and I spent a total of 25 minutes with them during today???s virtual clinic encounter. Over 50% of this time was spent counseling Dakota and/or coordinating care regarding pain & analgesic management. The following is a summary of our conversation; additional information was obtained from a review of relevant medical records. SUBJECTIVE ASSESSMENT History of the Present Illness Dakota Casiano is a 20 year old female with a history of tethered cord s/p release, scoliosis s/p posterior spinal fusion and recent revision, chronic pain syndrome, POTS, and a complex platelet disorder. I met Dakota for the first time at the beginning of August 2020 during an inpatient admission for post- operative recovery from the aforementioned spinal fusion revision surgery and hardware re-implantation. She comes to clinic today for a post-hospitalization follow-up. Interim History Much has happened since Dakota was discharged from the hospital. She was brought to the Emergency Department twice, once on 08/18 for a one-day history of fever, rash and increased pain. The rash was sensitive to light touch and described by Dakota as burning, a VZV antibody test was performed and came back positive. A routine COVID test taken at that time was also positive, but that was most like a false-positive. She was placed on valacyclovir. Ten days later, she returned to the ED for concerns of a hardware infection due to a new lump at the base of her incision and increased RLE numbness. A soft tissue ultrasound was performed (only a small fluid collection was noticed that was non-adjacent to her incision), an labs were drawn (unremarkable). Today, she is still complaining of a painful mass/lump at the base of her surgical incision that isvery painful if touched. It has grown in size since she presented to the Emergency Department, andshe estimates that it is approximately 1/2 the size of a walnut (when she first noticed the lump on 08/26, she estimated that it was the size of a dime). She denies fevers, but endorses significant nausea and fatigue. Emergency department (ED) visits since hospital discharge: 2 Hospitalizations since hospital discharge: 0 Pain Assessment(s) First Complaint: Back/incisional/surgical pain Onset: See Interim History Provocation/Palliation: Ameliorates: Nothing. Pain medications do not work. Aggravates: Movement Quality: Overall, she feels sore. The pain at the base of her incision (the site of the discoveredlump) feels throbbing. However, the lump/this region is numb when touched. Region/Radiation: Site of maximal pain is around T4 in the midline of her back, with cephalad radiation. Additionally there is a region of numbness on the medial aspect of her upper right leg, extending from her hip to her right knee. Severity (in the last two weeks; assessed using the 0-10 Numeric Pain Rating Scale, with 10 being the worst pain imaginable): TODAY Current: 8 Best: 8 Worst: 10 Usual: 8 Timing/frequency/duration: Since onset, her pain has been constant. OBJECTIVE ASSESSMENT Medications The analgesic medication regimen for Dakota consists of the following: Daily Analgesics dose/route/frequency Notes pregabalin 150 mg PO BID sertraline 100 mg PO daily PRN Analgesics Average use acetaminophen 1000 mg PO q6h PRN diazepam 2 mg PO q6h PRN oxycodone 5-10 mg PO q4h PRN The [place] Prescription Monitoring Program Database has not been reviewed. Physical Examination Vitals: There were no vitals taken for this visit. Physical exam deferred as this was a virtual visit. OVERALL ASSESSMENT Dakota Casiano is a 20 year old female with (1) Acute post-operative pain, worsening, with concerns for a surgical site or hardware infection (2) Chronic pain syndrome (central sensitization with impaired nociceptive descending inhibition) (3) Functional impairments due to chronic pain, including: (a) Problem with school attendance, rule out avoidance (b) Physical deconditioning (c) Circadian rhythm sleep disturbance (d) Decreased social interaction (4) Adjustment disorder with mixed anxiety and depressed mood RECOMMENDATIONS/PLAN, COUNSELING & COORDINATION PAIN REHABILITATION - Although she is afebrile, her description of a painful, warm, growing lump at the base of her incision has me concerned for a surgical site or hardware infection. I advised Dakota [facility] for [facility]. I also gave refills of celecoxib, diazepam and oxycodone. Follow-Up: With me in 4-6 weeks. Douglas Gonzalez MD, MAEd Septic Tank Service Technician of Pediatrics Brick Paving Checker, Pain and Advanced/Complex Care Team (PACCT) [facility] documented in this encounter Nursing Notes Anyi Mederos CMA - 08/31/2020 1:00 PM CST How would you like to obtain your AVS? Jacob Dakota Casiano complains of Chief Complaint Patient presents with ??? Follow Up PACCT Patient would like the video invitation sent by: Send to e-mail at: [email or web address] Patient is located in [place]? Yes I have reviewed and updated the patient's medication list, allergies and preferred pharmacy. Anyi Mederos CMA SITION LEAD documented in this encounter Plan of Treatment Not on filedocumented as of this encounter Visit Diagnoses Diagnosis Acute post-operative pain - Primary Other acute postoperative pain Inflammation of operative incision S/P spinal fusion Arthrodesis status Neuropathic pain Neuralgia, neuritis, and radiculitis, un specified documented in this encounter Additional Health Concerns Infection Onset Date Last Indicated Resolved Time COVID-19 08/18/2020 08/18/2020 09/08/2020 11:39 PM TRANSITION LEAD documented as of this encounter Care Teams Advertising Vice President Relationship Specialty Start Date End Date Josh Carrero PCP - General Family Medicine 08/09/[address] [address] Julian Spencer MD MD Orthopedics 03/08/[address] [place] [address] Mariposa Atwood Assigned PCP 04/29/20 11/12/20 MD Nettie [address] [facility] [place] [address] Julian Spencer MD Assigned Musculoskeletal 05/27/[address] [place] [address] Eugenio Finney Assigned Pediatric 06/19/2005/07 MD David Specialist Provider [address] [facility] 96 [place], [place] [phone] documented as of this encounter
--- OUTSIDE RECORDS SUMMARY | 2022-06-18 11:57 | XMS_ITS | Encounter Summary ---
:2000 Author Organization [facility] Address [address] [place] [address] Care Team Providers Name Role Phone Julian Spencer MD Unavailable Mariposa Atwood MD Unavailable [phone] Julian Spencer MD Unavailable Eugenio Finney MD Unavailable [phone] Josh Carrero Primary Care Provider Encounter Details Date Type Department Care Team Description 10/13/2020 [facility] Urbano Price is, unspecified scoliosis type, unspecified spinal region; Procedure [facility] MD Esteban Neuromuscular scoliosis of thoracolumbar region [address] [place] [phone] Social History Tobacco Use Types Packs/Day Years Used Date Smoking Tobacco: Never Smokeless Tobacco: Never Alcohol Use Standard Drinks/Week Comments Not Currently 0 (1 standard drink = 0.6 oz pure alcoho l) Sex Assigned at Date Recorded Female 12/02/2020 1:42 PM CDT COVID-19 Exposure Response Date Recorded In the last month, have you been in contact with No / Unsure 10/13/2020 1:38 PM LOCAL GOVERNMENT LEGISLATOR someone who was confirmed or suspected to have Coronavirus / COVID-19? documented as of this encounter Plan of Treatment Not on filedocumented as of this encounter Procedures Procedure Name Priority Date/Time Associated Diagnosis Comme nts DX Routine 10/13/2020 2:18 PM Scoliosis, unspecified Results for this HIP/PELVIS/SPINE LOCAL GOVERNMENT LEGISLATOR scoliosis type, procedur e are in unspecified spinal the resul ts region section. Neuromuscular scoliosis of thoracolumbar region documented in this encounter Results Dexa hip/pelvis/spine (10/13/2020 2:18 PM LOCAL GOVERNMENT LEGISLATOR) Anatomical Region Laterality Modality Dexa Bone Mineral Density Specimen (Source) Anatomical Location Collection Method / Collectio n Time Received Time / Laterality Volume Impressions 10/13/2020 2:44 PM LOCAL GOVERNMENT LEGISLATOR IMPRESSION: Bone mineral density within normal limit s. Notes: DXA According to the ISCD May 2007 Posit ion Statements at www.iscd.org the diagnosis of osteoporosis in males and females ages 5 - 19 requires the presence of both a clinical ly significant fracture history (one long bone fracture of the l ower extremities, vertebral compression fracture, or 2+ long bone fr actures of the upper extremities) and low bone mineral densit y. Low bone mineral density is defined as BMD Z-score less than or equa l to -2.0 adjusted for age, gender and body size as appropriate. The least significant change (LSC) for A P Spine = 2% Body Composition Cutoffs for Body Fatness (from Yan et al. Arch Ped Adol Med 2009;163(9):805): Age, y ?Normal ? Moderate ? Elevated Boys <9 ? <22% ? 22 -26% ? >26% 9-11.9 ? <24% ? 24-34% ? >34% 12-14.9 ?? <23% ? 23-32% ? >32% >=15 ? <22% ? 22-29% ? >29% Girls <9 ? <27% ? 27 -34% ? >34% 9-11.9 ? <30% ? 30-37% ? >37% 12-14.9 ?? <32% ? 32-39% ? >39% >=15 ? <36% ? 36-42% ? >42% BRIGHT ZHENG MD Narrative 10/13/2020 2:44 PM LOCAL GOVERNMENT LEGISLATOR INDICATION: Scoliosis COMPARISON: None TECHNICAL: The patient was scanned using a [employer], with pediatric software. Age: 20 years 2 months Gender: Female Race/Ethnicity: White FINDINGS: Image quality: adequate Height: 63 inches, ( 30 %) Weight: 122 pounds Densitometry results: Spine L1-L4: Chronological age Z-score: 0.2 Bone Mineral Density: 1.204 gm/cm2 Total Body Less Head: Chronological age Z-score: -0.2 Bone Mineral Density: 0.998 gm/cm2 Body composition: % body fat: 31.9% Procedure Note Bright Zheng MD - 10/13/2020Forma tting of this note might be different from the original. INDICATION: Scoliosis COMPARISON: None TECHNICAL: The patient was scanned using a [employer], with pediatric software. Age: 20 years 2 months Gender: Female Race/Ethnicity: White FINDINGS: Image quality: adequate Height: 63 inches, ( 30 %) Weight: 122 pounds Densitometry results: Spine L1-L4: Chronological age Z-score: 0.2 Bone Mineral Density: 1.204 gm/cm2 Total Body Less Head: Chronological age Z-score: -0.2 Bone Mineral Density: 0.998 gm/cm2 Body composition: % body fat: 31.9% IMPRESSION: Bone mineral density within normal limit s. Notes: DXA According to the ISCD May 2007 Posit ion Statements at www.iscd.org the diagnosis of osteoporosis in males and females ages 5 - 19 requires the presence of both a clinical ly significant fracture history (one long bone fracture of the l ower extremities, vertebral compression fracture, or 2+ long bone fr actures of the upper extremities) and low bone mineral densit y. Low bone mineral density is defined as BMD Z-score less than or equa l to -2.0 adjusted for age, gender and body size as appropriate. The least significant change (LSC) for A P Spine = 2% Body Composition Cutoffs for Body Fatness (from Yan et al. Arch Ped Adol Med 2009;163(9):805): Age, y Normal Moderate Elevated Boys <9 <22% 22-26% >26% 9-11.9 <24% 24-34% >34% 12-14.9 <23% 23-32% >32% >=15 <22% 22-29% >29% Girls <9 <27% 27-34% >34% 9-11.9 <30% 30-37% >37% 12-14.9 <32% 32-39% >39% >=15 <36% 36-42% >42% BRIGHT ZHENG MD Urbano Price MD IMG DEXA ORDERABLES documented in this encounter Visit Diagnoses Diagnosis Scoliosis, unspecified scoliosis type, u nspecified spinal region Neuromuscular scoliosis of thoracolumbar region Other kyphoscoliosis and scoliosis documented in this encounter Care Teams Environmental Health And Safety Manager Relationship Specialty Start Date End Date Josh Carrero PCP - General Family Medicine 08/09/[address] [address] Julian Spencer MD MD Orthopedics 03/08/[address] [place] [address] Mariposa Atwood Assigned PCP 04/29/20 11/12/20 MD Nettie [address] [place] [address] Julian Spencer MD Assigned Musculoskeletal 05/27/20 [address] [facility] [address] [place] [address] Eugenio Finney Assigned Pediatric 06/19/2005/07 MD David Specialist Provider [address] [place] [address] documented as of this encounter
--- OUTSIDE RECORDS SUMMARY | 2022-06-18 11:57 | XMS_ITS | Encounter Summary ---
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 documented as of this encounter Last Filed Vital Signs Vital Sign Reading Time Taken Comments Blood Pressure - - Pulse - - Temperature - - Respiratory Rate - - Oxygen Saturation - - Inhaled Oxygen Concentration - - Weight 54.9 kg (121 lb) 09/22/2020 8:53 AM REIMBURSEMENT COUNSELOR Height 164 cm (5' 4.57) 09/22/2020 8:53 AM REIMBURSEMENT COUNSELOR Body Mass Index 20.41 09/22/2020 8:53 AM REIMBURSEMENT COUNSELOR documented in this encounter Progress Notes Julian Spencer MD - 09/22/2020 8:30 AM CST HISTORY OF PRESENT ILLNESS: Dakota returns 6 weeks out now from a revision T4-L4 spine fusion. 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 O: PEX WDWN young adult female . Incision well healed. Limb length discrepancy. Some tenderness right mid thoracic paraspinal most likely screw head. X ray- Instrumentation in place stable. A/P: Scoliosis, pseudarthrosis s/p reivsion surgery. Progressing as expected. I spoke with Dr. Vaibhav Park's nurse. I would like for her to see Dr. Esposito at [facility]. F/U with me 6 weeks. I subsequently reviewed her imaging with Marii Leon RN, Dr. Mynor Esposito's nurse practitioner. Given Marine's congenital lumbosacral anomaly, her spinal fusion for scoliosis and the lumbosacral obliquity limb length discrepancy has a significant impact on her. WQhile her discrepancy on EOS imaging appears to be about 2.3 cm. Normally this would be treated with a shoe lift. However given that the probability is that she will end up needing her fusion extended to the pelvis at some point in the futurehaving a level pelvis will be critical. Normally Dr. Esposito prefers limb lengthening rather than shortening. 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 My nursing team will assist getting her in to see Dr. Esposito at [facility]. Answers for HPI/ROS submitted by the patient on 09/16/2020 General Symptoms: No Skin Symptoms: No HENT Symptoms: No EYE SYMPTOMS: No HEART SYMPTOMS: No LUNG SYMPTOMS: No INTESTINAL SYMPTOMS: No URINARY SYMPTOMS: No GYNECOLOGIC SYMPTOMS: No BREAST SYMPTOMS: No SKELETAL SYMPTOMS: No BLOOD SYMPTOMS: No NERVOUS SYSTEM SYMPTOMS: No MENTAL HEALTH SYMPTOMS: No PEDS Symptoms: No BURSEMENT COUNSELOR documented in this encounter Nursing Notes Reyna Chávez LPN - 09/22/2020 8:30 AM CST Reason For Visit: Chief Complaint Patient presents with ??? 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 MD: Est Electrical Integrator?No Occupation??Student. ?? Date of injury:??No Type of injury:??No. ?? Date of surgery:??Several surgeries Type of surgery:??Fusions and hardware removal, refused last February ?? 08/09/2020 Reinsertion of segmental spinal instrumentation T4 to L4 -22 modifier. Pseudoarthrosis repair at 4 levels. ??Image-guided spine surgery. Skin biopsy. Scar revision, 44 cm. ?? Smoker:??No Request smoking cessation information:??No Ht 1.64 m (5' 4.57) Wt 54.9 kg (121 lb) BMI 20.41 kg/m?? Pain Assessment Patient Currently in Pain: Yes Patient's Stated Pain Goal: 7 Primary Pain Location: Back Oswestry (LOKESH) Questionnaire OSWESTRY DISABILITY INDEX 09/16/2020 Count 9 Sum 19 Oswestry Score (%) 42.22 Some recent data might be hidden Visual Analog Pain Scale Back Pain Scale 0-10: 7 Right leg pain: 0 Left leg pain: 0 Neck Pain Scale 0-10: 0 Right arm pain: 0 Left arm pain: 0 Promis 10 Assessment PROMIS 10 09/16/2020 In general, would you say your health is: Very good In general, would you say your quality of life is: Very good In general, how would you rate your physical health? Very good In general, how would you rate your mental health, including your mood and your ability to think? Very good In general, how would you rate your satisfaction with your social activities and relationships? Verygood In general, please rate how well you carry out your usual social activities and roles Very good To what extent are you able to carry out your everyday physical activities such as walking, climbingstairs, carrying groceries, or moving a chair? Moderately How often have you been bothered by emotional problems such as feeling anxious, depressed or irritable? Sometimes How would you rate your fatigue on average? Moderate How would you rate your pain on average? 0 = No Pain to 10 = Worst Imaginable Pain 8 In general, would you say your health is: 4 In general, would you say your quality of life is: 4 In general, how would you rate your physical health? 4 In general, how would you rate your mental health, including your mood and your ability to think? 4 In general, how would you rate your satisfaction with your social activities and relationships? 4 In general, please rate how well you carry out your usual social activities and roles. (This includes activities at home, at work and in your community, and responsibilities as a parent, child, spouse,employee, friend, etc.) 4 To what extent are you able to carry out your everyday physical activities such as walking, climbingstairs, carrying groceries, or moving a chair? 3 In the past 7 days, how often have you been bothered by emotional problems such as feeling anxious, depressed, or irritable? 3 In the past 7 days, how would you rate your fatigue on average? 3 In the past 7 days, how would you rate your pain on average, where 0 means no pain, and 10 means worst imaginable pain? 8 Global Mental Health Score 15 Global Physical Health Score 12 PROMIS TOTAL - SUBSCORES 27 Some recent data might be hidden Reyna Chávez LPN BURSEMENT COUNSELOR documented in this encounter Plan of Treatment Not on filedocumented as of this encounter Visit Diagnoses Diagnosis S/P spinal surgery - Primary Other postprocedural status documented in this encounter Care Teams Bioengineer Relationship Specialty Start Date End Date Josh Carrero PCP - General Family Medicine 08/09/[address] [address] Julian Spencer MD MD Orthopedics 03/08/[address] [place], [place] [phone] Mariposa Atwood Assigned PCP 04/29/20 11/12/20 MD Nettie [address] [facility] [place] [place] [address] Julian Spencer MD Assigned Musculoskeletal 05/27/[address] [place] [address] Eugenio Finney Assigned Pediatric 06/19/2005/07 MD David Specialist Provider 420 [facility] 96 [place], [place] [id number] documented as of this encounter
--- OUTSIDE RECORDS SUMMARY | 2022-06-18 11:57 | XMS_ITS | Encounter Summary ---
:2001 Author Organization [place] Address [facility] [place] [address] Care Team Providers Name Role Phone Julian Spencer MD Unavailable Mariposa Atwood MD Unavailable [phone] Julian Spencer MD Unavailable Eugenio Finney MD Unavailable [phone] Josh Carrero Primary Care Provider Urbano Price MD Unavailable Joe Leo MD Unavailable Joe Leo MD Unavailable Douglas Gonzalez MD Unavailable [phone] Douglas Gonzalez MD Unavailable [phone] Reason for Visit Reason Onset Date Comments Appointment 08/24/2020 Encounter Details Date Type Department Care Team Description 08/24/2020 Telephone [facility] Smith Gonzalez, [facility] 2512 [facility], 3rd [facility] 2450 [facility] [address] [place], [place] [address] [place] [address] (Wo rk) Social History Tobacco [...] been in contact with No / Unsure 08/18/2020 3:05 PM SUPERVISOR HAND SILVERING someone who was confirmed or suspected to have Coronavirus / COVID-19? documented as of this encounter Miscellaneous Notes Telephone Encounter - Delores Shelby - 08/24/2020 9:05 AM CST LM for patient to call back and schedule new [address] Gonzalez in person on his Saturday or Saturday clinic day. Delores Shelby Community Drop Board Worker [id number] [place] [address] Floor [phone] [email or web address] RVISOR HAND SILVERING documented in this encounter Plan of Treatment Not on filedocumented as of this encounter Visit Diagnoses Not on filedocumented in this encounter Additional Health Concerns Infection Onset Date Last Indicated Resolved Time COVID-19 08/18/2020 08/18/2020 09/08/2020 11:39 PM SUPERVISOR HAND SILVERING documented as of this encounter Care Teams Rate Quoting Operator Relationship Specialty Start Date End Date Josh Carrero PCP - General Family Medicine 08/09/[address] [address] Julian Spencer MD Orthopedics 03/08/20 MD Darell [facility] [address] [address] Mariposa Atwood Assigned PCP 04/29/20 11/12/20 MD Nettie [facility] [place] [address] Julian Spencer Assigned Musculoskeletal 05/27/20 MD Darell Provider [address] [phone] Eugenio Finney Assigned Pediatric 06/19/2005/07 MD David Specialist Provider 420 [facility] 96 [place], [place] [address] Urbano Price Assigned PCP 11/13/20 MD Esteban [address] [place] [phone] Joe Leo MD Physical Medicine and 04/11/[address] [place] [address] 297 [place], [place] [phone] Joe Leo, Assigned Neuroscience 04/30/21 MD Provider 420 [facility] 297 [place], [place] [phone] Douglas Gonzalez MD Pediatrics 05/29/21 MD Julian [address] [place] [phone] Douglas Gonzalez Assigned Pediatric 06/04/21 MD Julian Specialist Provider [address] [place] [phone] documented as of this encounter
--- OUTSIDE RECORDS SUMMARY | 2022-06-18 11:57 | XMS_ITS | Encounter Summary ---
:2001 Author Organization [place] Address [address] [place] [address]. [place] [address] Care Team Providers Name Role Phone Julian Spencer MD Unavailable Mariposa Atwood MD Unavailable [phone] Julian Spencer MD Unavailable Eugenio Finney MD Unavailable [phone] Josh Carrero Primary Care Provider Reason for Visit Reason Onset Date Comments Clinic Care Coordination - Follow-up 09/01/2020 Encounter Details Date Type Department Care Team Description 09/01/2020 Telephone [facility] Gerardo Stone Car e Coordination Explorer Pediatric RUTH Cardona - Follow- up Specialty Clinic 12th [facility] [address] [place] [address] Social History Tobacco Use Types [...] with No / Unsure 09/01/2020 7:58 AM ROPE LAYING MACHINE OPERATOR someone who was confirmed or suspected to have Coronavirus / COVID-19? documented as of this encounter Miscellaneous Notes Telephone Encounter - Dulce Stone, RUTH - 09/01/2020 12:20 PM CST Incoming fax from [facility] approved Oxycodone from 08/31 to 09/30. Additional oxycodone prescriptions will require another PA. Dulce Stone RN on 09/01/2020 at 12:22 PM LAYING MACHINE OPERATOR documented in this encounter Plan of Treatment Not on filedocumented as of this encounter Visit Diagnoses Not on filedocumented in this encounter Additional Health Concerns Infection Onset Date Last Indicated Resolved Time COVID-19 08/18/2020 08/18/2020 09/08/2020 11:39 PM ROPE LAYING MACHINE OPERATOR documented as of this encounter Care Teams Carving Machine Operator Relationship Specialty Start Date End Date Josh Carrero PCP - General Family Medicine 08/09/[address] [address] Julian Spencer MD MD Orthopedics 03/08/[address] [place], [place] [phone] Mariposa Atwood Assigned PCP 04/29/20 11/12/20 MD Nettie 2450 [place], [place] [address] Julian Spencer MD Assigned Musculoskeletal 05/27/[address] Provider [place], [place] [phone] Eugenio Finney Assigned Pediatric 06/19/2005/07 MD David Specialist Provider [address] [facility] 96 [place], [place] [address] documented as of this encounter
--- OUTSIDE RECORDS SUMMARY | 2022-06-18 11:57 | XMS_ITS | Encounter Summary ---
:2001 Author Organization [place] Address [address] [place] [address] Care Team Providers Name Role Phone Julian Spencer MD Unavailable Mariposa Atwood MD Unavailable [phone] Julian Spencer MD Unavailable Eugenio Finney MD Unavailable [phone] Josh Carrero Primary Care Provider Reason for Visit Diagnostic Imaging XR (Routine) - Closed Specialty Diagnoses / Procedures Referred By Contact Refer red To Contact Diagnoses S/P spinal surgery Julian Spencer MD Procedures XR Six Foot Standing Extremities [address] [place], [place] [address] Referral ID Status Reason Start Date Expiration Date Visits Requ ested Visits Authorized [id number] Closed 09/16/2020 09/16/2021 1 1 Encounter Details Date Type Department Care Team Description 09/22/2020 Ancillary Procedure [facility] [place] Julian Spencer [facility] Juveay MD Darell Wylie [address] [place], [place] 1st Floor [address] [place], [place] [phone] [address] (Work) [phone] Social History Tobacco Use Types Packs/Day Years Used Date Smoking Tobacco: Never Smokeless Tobacco: Never Alcohol Use Standard Drinks/Week Comments Not Currently 0 (1 standard drink = 0.6 oz pure alcoho l) Sex Assigned at Date Recorded Female 12/02/2020 1:42 PM CDT COVID-19 Exposure Response Date Recorded In the last month, have you been in contact with No / Unsure 09/22/2020 8:47 AM COMPUTER OPERATIONS TECHNICIAN someone who was confirmed or suspected to have Coronavirus / COVID-19? documented as of this encounter Plan of Treatment Not on filedocumented as of this encounter Procedures Procedure Name Priority Date/Time Associated Comments Diagnosis XR SIX FOOT STANDING Routine 09/22/2020 8:26 AM S/P spinal teresa jenaro Results for this EXTREMITIES COMPUTER OPERATIONS TECHNICIAN procedure are i n the results section. documented in this encounter Results XR Six Foot Standing Extremities (09/22/2020 8:26 AM COMPUTER OPERATIONS TECHNICIAN) Anatomical Region Laterality Modality Lower Extremity Computed Radiography Specimen (Source) Anatomical Location Collection Method / Collectio n Time Received Time / Laterality Volume Impressions 09/26/2020 8:59 AM COMPUTER OPERATIONS TECHNICIAN Impression: 1. Post spinal instrumentation from T4 t o L4. Intact hardware. 2. Mild convexed right curvature of the thoracolumbar/lumbar spine. 3. No ??global sagittal imbalance. 4. Weight bearing axis as detailed above . 5. Left lower extremity longer than righ t lower extremity. CHATO OSMAN MD Narrative 09/26/2020 8:59 AM COMPUTER OPERATIONS TECHNICIAN Exam: Full body radiographs using EOS History: [...] No substantial global coronal imbalance. Sagittal Vertical Palermo (A vertical line drawn from the center [...] No substantial global coronal imbalance. Sagittal Vertical [place] (A vertical line drawn from the center [...] on filedocumented in this encounter Care Teams Paperhanger Supervisor Relationship Specialty Start Date End Date Josh Carrero PCP - General Family Medicine 08/09/[address] [address] Julian Spencer MD MD Orthopedics 03/08/[address] [place] [phone] Mariposa Atwood Assigned PCP 04/29/20 11/12/20 MD Nettie 2450 [place], [place] [address] Julian Spencer MD Assigned Musculoskeletal 05/27/[address] [place], [place] [phone] Provider [place], [place] [address] Eugenio Finney Assigned Pediatric 06/19/2005/07 MD David Specialist Provider [address] [facility] 96 [place], [place] [address] documented as of this encounter
--- OUTSIDE RECORDS SUMMARY | 2022-06-18 11:57 | XMS_ITS | Encounter Summary ---
:2001 Author Organization [place] Address [address] [place] [address]. [place] [address] Care Team Providers Name Role Phone Julian Spencer MD Unavailable Mariposa Atwood MD Unavailable [phone] Julian Spencer MD Unavailable Eugenio Finney MD Unavailable [phone] Josh Carrero Primary Care Provider Encounter Details Date Type Department Care Team Description 09/12/2020 Orders Only [facility] Mariposa Atwood At risk fo r Services - Medical MD Nettie hemorrhage associated Specialties Service [address] [place] [address] surgery (Primary Line S Dx) [address] [place] [phone] Social History Tobacco Use Types Packs/Day Years Used Date Smoking Tobacco: Never Smokeless Tobacco: Never Alcohol Use Standard Drinks/Week Comments Not Currently 0 (1 standard drink = 0.6 oz pure alcoho l) Sex Assigned at Date Recorded Female 12/02/2020 1:42 PM CDT COVID-19 Exposure Response Date Recorded In the last month, have you been in contact with No / Unsure 09/01/2020 7:58 AM CHANGE MANAGEMENT someone who was confirmed or suspected to have Coronavirus / COVID-19? documented as of this encounter Plan of Treatment Not on filedocumented as of this encounter Results Platelet disorders Gene Sequencing Panel with reflex to deletion/duplication for all available [facility]: Laboratory Miscellaneous Order (09/22/2020 8:43 AM CHANGE MANAGEMENT) Component Value Ref Test Analysis Performed At [facility] gist Range Method Time Signature Miscellaneous Specimen Received, Reordered and sent to Performing laboratory - Report to follow upon 09/22/2020 [facility] Test completion. 4:56 PM CHANGE MANAGEMENT [facility] Specimen Anatomical Collection Method Collection Time Receive d Time (Source) Location / / Volume Laterality Blood specimen VENOUS BLOOD / 09/22/2020 8:43 AM 09/22 8:45 (specimen) Unknown CHANGE MANAGEMENT AM CHANGE MANAGEMENT Mariposa Atwood MD LAB - BLOOD ORDERABLES Performing Organization Address City/State/ZIP Code Phon e Number [address] [address] [facility] documented in this encounter Visit Diagnoses Diagnosis At risk for hemorrhage associated with s urgery - Primary documented in this encounter Care Teams Fun House Attendant Relationship Specialty Start Date End Date Josh Carrero PCP - General Family Medicine 08/09/[address] [address] Julian Spencer MD MD Orthopedics 03/08/[address] [phone] Mariposa Atwood Assigned PCP 04/29/20 11/12/20 MD Nettie [facility]50 [facility] [place], [place] [address] Julian Spencer MD Assigned Musculoskeletal 05/27/[address] Provider [place], [place] [address] Eugenio Finney Assigned Pediatric 06/19/2005/07 MD David Specialist Provider [facility] [address] [address] documented as of this encounter
--- OUTSIDE RECORDS SUMMARY | 2022-06-18 11:57 | XMS_ITS | Encounter Summary ---
:2001 Author Organization [place] Address [address] [place] [address] Care Team Providers Name Role Phone Julian Spencer MD Unavailable Mariposa Atwood MD Unavailable [phone] Julian Spencer MD Unavailable Eugenio Finney MD Unavailable [phone] Josh Carrero Primary Care Provider Encounter Details Date Type Department Care Team Description 10/13/2020 Travel Social History Tobacco Use Types Packs/Day [...] with No / Unsure 10/13/2020 1:38 PM BULLET ASSEMBLY PRESS SETTER OPERATOR someone who was confirmed or suspected to have Coronavirus / COVID-19? documented as of this encounter Plan of Treatment Not on filedocumented as of this encounter Visit Diagnoses Not on filedocumented in this encounter Care Teams Compliance Technician Relationship Specialty Start Date End Date Josh Carrero PCP - General Family Medicine 08/09/[address] [address] Julian Spencer MD MD Orthopedics 03/08/[address] [place] [address] Mariposa Atwood Assigned PCP 04/29/20 11/12/20 MD Nettie 2450 [facility] [place] [address] Julian Spencer MD Assigned Musculoskeletal 05/27/[address] [place] [address] Eugenio Finney Assigned Pediatric 06/19/2005/07 MD David Specialist Provider [address] [address] [facility] 96 [place] [address] documented as of this encounter
--- OUTSIDE RECORDS SUMMARY | 2022-06-18 11:57 | XMS_ITS | Encounter Summary ---
:2001 Author Organization [place] Address [address] [place] [address]. [place] [address] Care Team Providers Name Role Phone Julian Spencer MD Unavailable Mariposa Atwood MD Unavailable [phone] Julian Spencer MD Unavailable Eugenio Finney MD Unavailable [phone] Josh Carrero Primary Care Provider Encounter Details Date Type Department Care Team Description 08/28/2020 Ancillary Procedure [facility] Naomie Fierro, Imaging [facility] [address] [place] [id number] (Wo rk) Social History Tobacco Use Types [...] with No / Unsure 08/28/2020 8:19 PM CIVIL CADD TECHNICIAN someone who was confirmed or suspected to have Coronavirus / COVID-19? documented as of this encounter Plan of Treatment Pending Results Name Type Priority Associated Diagnoses Date/Ti me POC US SOFT TISSUE Imaging STAT 10:02 PM CIVIL CADD TECHNICIAN documented as of this encounter Visit Diagnoses Not on filedocumented in this encounter Additional Health Concerns Infection Onset Date Last Indicated Resolved Time COVID-19 08/18/2020 08/18/2020 09/08/2020 11:39 PM CIVIL CADD TECHNICIAN documented as of this encounter Care Teams Core Loader Relationship Specialty Start Date End Date Josh Carrero PCP - General Family Medicine 08/09/[address] [id number] Julian Spencer MD MD Orthopedics 03/08/[address] [place] [address] Mariposa Atwood Assigned PCP 04/29/20 11/12/20 MD Nettie [address] [facility] [place] [address] Julian Spencer MD Assigned Musculoskeletal 05/27/[address] [place] [address] Eugenio Finney Assigned Pediatric 06/19/2005/07 MD David Specialist Provider [address] [facility] 96 [place], [place] [address] documented as of this encounter
--- OUTSIDE RECORDS SUMMARY | 2022-06-18 11:57 | XMS_ITS | Encounter Summary ---
:2000 Author Organization [facility] Address [address] [place] [address]. 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 documented as of this encounter Miscellaneous Notes Telephone Encounter - Ronald Lee MD - 08/28/2020 8:53 PM CST Brief orthopaedic note: Received call from Veronica, triage nurse, with concerns for Dakota this evening. Please see Veronica's detailed note regarding the patient's symptoms over the last 24-48 hours. In brief, this includes the acute onset of hematemesis, significantly worsening pain, and a mass at the superior aspect of her incision. In addition, she has lightheadedness with standing. Given the multitude of worsening symptoms over the last two days, recommended in-person evaluation in the ER for repeat exam and laboratory studies. Recommend obtaining CBC (last Hgb 10.7), CRP, and other labs as indicated by ED exam. If there are acute concerns regarding her incision or for post-operative infection, please contact the orthopaedic surgery team. Ronald Lee MD Orthopaedic Surgery PGY-4 #: [phone] ESSOR OF MECHANICAL ENGINEERING documented in this encounter Plan of Treatment Not on filedocumented as of this encounter Visit Diagnoses Not on filedocumented in this encounter Additional Health Concerns Infection Onset Date Last Indicated Resolved Time COVID-19 08/18/2020 08/18/2020 09/08/2020 11:39 PM PROFESSOR OF MECHANICAL ENGINEERING documented as of this encounter Care Teams Emt Driver Relationship Specialty Start Date End Date Josh Carrero PCP - General Family Medicine 08/09/[address] [address] Julian Spencer MD MD Orthopedics 03/08/[address] [place], [place] [id number] [place] [address] Mariposa Atwood Assigned PCP 04/29/20 11/12/20 MD Nettie [address] [place] [address] Julian Spencer MD Assigned Musculoskeletal 05/27/[address] [place] [address] Eugenio Finney Assigned Pediatric 06/19/2005/07 MD David Specialist Provider [address] [place] [address] 96 [place], [place] [phone] documented as of this encounter
--- OUTSIDE RECORDS SUMMARY | 2022-06-18 11:58 | XMS_ITS | Encounter Summary ---
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 documented as of this encounter Plan of Treatment Not on filedocumented as of this encounter Visit Diagnoses Not on filedocumented in this encounter Additional Health Concerns Infection Onset Date Last Indicated Resolved Time Rule Out COVID-19 08/18/2020 08/18/2020 08/18/2020 7:2 9 PM IMPREGNATING MACHINE OPERATOR COVID-19 08/18/2020 08/18/2020 09/08/2020 11:39 PM IMPREGNATING MACHINE OPERATOR documented as of this encounter Care Teams Gaming Department Head Relationship Specialty Start Date End Date Josh Carrero PCP - General Family Medicine 08/09/[address] [address] Julian Spencer MD MD Orthopedics 03/08/[address] [place] [address] Mariposa Atwood Assigned PCP 04/29/20 11/12/20 MD Nettie [address] [facility] [place] [address] Julian Spencer MD Assigned Musculoskeletal 05/27/[address] [place] [address] Eugenio Finney Assigned Pediatric 06/19/2005/07 MD David Specialist Provider [address] [facility] [address] [place], [place] [id number] documented as of this encounter
--- OUTSIDE RECORDS SUMMARY | 2022-06-18 11:58 | XMS_ITS | Encounter Summary ---
:2001 Author Organization [facility] Address [address] [place] [address] Care Team Providers Name Role Phone Julian Spencer MD Unavailable Mariposa Atwood MD Unavailable [phone] Julian Spencer MD Unavailable Eugenio Finney MD Unavailable [phone] Josh Carrero Primary Care Provider Reason for Visit Reason Onset Date Comments Abnormal Labs 08/18/2020 covid positive Encounter Details Date Type Department Care Team Description 08/18/2020 Telephone [facility] Violet Fowler Abnor mal Labs (covid [facility] MEDICAL RESIDENT positive ) [address] [place] [address] Social History Tobacco Use Types Packs/Day Years Used Date Smoking Tobacco: Never Smokeless Tobacco: Never Alcohol Use Standard Drinks/Week Comments Not Currently 0 (1 standard drink = 0.6 oz pure alcoho l) Sex Assigned at Date Recorded Female 12/02/2020 1:42 PM CDT COVID-19 Exposure Response Date Recorded In the last month, have you been in contact with No / Unsure 08/18/2020 3:05 PM 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 documented as of this encounter Miscellaneous Notes Telephone Encounter - Violet Fowler LPN - 08/18/2020 7:48 PM CST Coronavirus (COVID-19) Notification Caller Name (Patient, parent, daughter/son, grandparent, etc) Patient Reason for call Notify of Positive Coronavirus (COVID-19) lab results, assess symptoms, review [facility] recommendations Lab Result Lab test: 2019-nCoV freight traffic consultant-PCR or SARS-CoV-2 PCR Oropharyngeal AND/OR nasopharyngeal swabs is POSITIVE for 2019-nCoV RNA/SARS-COV-2 PCR (COVID-19 virus) RN Recommendations/Instructions per [facility] Coronavirus COVID-19 recommendations Brief introduction script Introduce self then review script: I am calling on behalf of [employer]. We were notified that your Coronavirus test (COVID-19) for was POSITIVE for the virus. I have some information to relay to you but first I wanted to mentionthat the [place] Dept of Health will be contacting you shortly [it's possible MD already called Patient] to talk to you more about how you are feeling and other people you have had contact with who might now also have the virus. Also, [facility] is Partnering with the [facility] for Covid-19 research, you may be contacted directly by research staff. Assessment (Inquire about Patient's current symptoms) Assessment Current Symptoms at time of phone call: (if no symptoms, document No symptoms] Fever, rash, Headache Symptoms onset (if applicable) 08/18/2020 See triage note. Patient does not believe the sx she currently has is related to the covid. If at time of call, Patients symptoms hare worsened, the Patient should contact 911 or have someone drive them to Emergency Dept promptly: ??? If Patient calling 911, inform 911 personal that you have tested positive for the Coronavirus (COVID-19). Place mask on and await 911 to arrive. ??? If Emergency Dept, If possible, please have another adult drive you to the Emergency Dept but you need to wear mask when in contact with other people. Monoclonal Antibody Administration You may be eligible to receive a new treatment with a monoclonal antibody for preventing hospitalization in patients at high risk for complications from COVID-19. This medication is still experimental and available on a limited basis; it is given through an IV and must be given at an infusion center. Please note that not all people who are eligible will receive the medication since it is in limited supply. Are you interested in being considered for this medication? No. Does the patient fit the criteria: Patient declined If patient qualifies based on above criteria: We will contact you if you are selected to receive the medication in the next 1-2 days. This is time sensitive and if you are not selected in the next 1-2days, you will not receive the medication. If you do not receive a call to schedule, you have not been selected. Review information with Patient Your result was positive. This means you have COVID-19 (coronavirus). We have sent you a letter thatreviews the information that I'll be reviewing with you now. How can I protect others? If you have symptoms: stay home and away from others (self-isolate) until: ??? You've had no fever--and no medicine that reduces fever--for 1 full day (24 hours). And ? Your other symptoms have gotten better. For example, your cough or breathing has improved. And? At least 10 days have passed since your symptoms started. (If you've been told by a doctor that you have a weak immune system, wait 20 days.) If you don't have symptoms: Stay home and away from others (self-isolate) until at least 10 days have passed since your first positive COVID-19 test. (Date test collected) During this time: ??? Stay in your own room, including for meals. Use your own bathroom if you can. ??? Stay away from others in your home. No hugging, kissing or shaking hands. No visitors. ??? Don't go to work, school or anywhere else. ??? Clean ???high touch?? surfaces often (doorknobs, counters, handles, etc.). Use a household cleaning spray or wipes. You'll find a full list on the EPA website at www.epa.gov/pesticide-registration/ hukz-s-hthpatokhytxo-vqe-fsumslj-xnap-cov-2. ??? Cover your mouth and nose with a mask, tissue or other face covering to avoid spreading germs. ??? Wash your hands and face often with soap and water. ??? Caregivers in these groups are at risk for severe illness due to COVID-19: o People 65 years and older o People who live in a shelter or long-term care facility o People with chronic disease (lung, heart, cancer, diabetes, kidney, liver, immunologic) o People who have a weakened immune system, including those who: - Are in cancer treatment - Take medicine that weakens the immune system, such as corticosteroids - Had a bone marrow or organ transplant - Have an immune deficiency - Have poorly controlled HIV or AIDS - Are obese (body mass index of 40 or higher) - Smoke regularly ??? Caregivers should wear gloves while washing dishes, handling laundry and cleaning bedrooms and bathrooms. ??? Wash and dry laundry with special caution. Don't shake dirty laundry, and use the warmest water setting you can. ??? If you have a weakened immune system, ask your doctor about other actions you should take. ??? For more tips, go to www.cdc.gov/coronavirus/2019-ncov/downloads/10Things.pdf. You should not go back to work until you meet the guidelines above for ending your home isolation. You don't need to be retested for COVID-19 before going back to work--studies show that you won't spread the virus if it's been at least 10 days since your symptoms started (or 20 days, if you have a weak immune system). Employers: This document serves as formal notice of your employee's medical guidelines for going back to work. They must meet the above guidelines before going back to work in person. How can I take care of myself? 1. Get lots of rest. Drink extra fluids (unless a doctor has told you not to). 2. Take Tylenol (acetaminophen) for fever or pain. If you have liver or kidney problems, ask your family doctor if it's okay to take Tylenol. Take either: ??? 650 mg (two 325 mg pills) every 4 to 6 hours, or? 1,000 mg (two 500 mg pills) every 8 hours as needed. ??? Note: Don't take more than 3,000 mg in one day. Acetaminophen is found in many medicines (both prescribed and puje-hqv-tbxtifb medicines). Read all labels to be sure you don't take too much. For children, check the Tylenol bottle for the right dose (based on their age or weight). 3. If you have other health problems (like cancer, heart failure, an organ transplant or severe kidney disease): Call your specialty clinic if you don't feel better in the next 2 days. 4. Know when to call 911: Emergency warning signs include: ??? Trouble breathing or shortness of breath ??? Pain or pressure in the chest that doesn't go away ??? Feeling confused like you haven't felt before, or not being able to wake up ??? Bluish-colored lips or face 5. Sign up for [employer]. We know it's scary to hear that you have COVID-19. We want to track your symptoms to make sure you're okay over the next 2 weeks. Please look for an email from [employer]--this is a free, online program that we'll use to keep in touch. To sign up, follow the link in the email. Learn more at [email or web address]. Where can I get more information? [facility] [place]: [email or web address] ??? Coronavirus Basics: www.health.[facility].[place]/diseases/coronavirus/basics.html ??? What to Do If You're Sick: www.cdc.gov/coronavirus/2019-ncov/about/hyfyd-oobz-sxxc.html ??? Ending Home Isolation: www.cdc.gov/coronavirus/2019-ncov/hcp/aexcfehuptl-vz-noyr-patients.html ??? Caring for Someone with COVID-19: www.cdc.gov/coronavirus/2019-ncov/zj-bfv-wys-sick/lmjv-knc-pgebqfw.html ??? [facility] clinical trials (COVID-19 research studies): clinicalaffairs.[facility]/oiw-sckcnsel-wmjaev A Positive COVID-19 letter will be sent via [employer] or the mail. (Exception, no letters sent to Presurgerical/Preprocedure Patients) Violet Fowler LPN ATING MACHINE MECHANIC documented in this encounter Plan of Treatment Not on filedocumented as of this encounter Visit Diagnoses Not on filedocumented in this encounter Additional Health Concerns Infection Onset Date Last Indicated Resolved Time Rule Out COVID-19 08/18/2020 08/18/2020 08/18/2020 7:2 9 PM DICTATING MACHINE MECHANIC COVID-19 08/18/2020 08/18/2020 09/08/2020 11:39 PM DICTATING MACHINE MECHANIC documented as of this encounter Care Teams Student Assistance Counselor Relationship Specialty Start Date End Date Josh Carrero PCP - General Family Medicine 08/09/[address] [id number] Julian Spencer MD MD Orthopedics 03/08/[address] [place], [place] [phone] Mariposa Atwood Assigned PCP 04/29/20 11/12/20 MD Nettie [address] [facility] [place] [place] [phone] Julian Spencer MD Assigned Musculoskeletal 05/27/[address] Provider [place], [place] [phone] Eugenio Finney Assigned Pediatric 06/19/2005/07 MD David Specialist Provider [address] [facility] [address] [place], [place] [address] documented as of this encounter
--- OUTSIDE RECORDS SUMMARY | 2022-06-18 11:58 | XMS_ITS | Encounter Summary ---
:2001 Author Organization [place] Address [facility] [place] [address] Care Team Providers Name Role Phone Julian Spencer MD Unavailable Mariposa Atwood MD Unavailable [phone] Julian Spencer MD Unavailable Eugenio Finney MD Unavailable [phone] Josh Carrero Primary Care Provider Reason for Visit Reason Comments Post-op Problem Rash Encounter Details Date Type Department Care Team Description 08/18/2020 Emergency [facility] Glen Sharma Herpes zoster without complication; [facility] Emergency MD Justin 2019 novel coronavirus disease (COVID-19 ) Department [address] [place] [address] [address] [place] [address] [place], [place] [phone] (Wo rk) Social History Tobacco Use [...] with No / Unsure 08/18/2020 3:05 PM DIRECTOR OF SLOT OPERATIONS someone who was confirmed or suspected to have Coronavirus / COVID-19? documented as of this encounter Last Filed Vital Signs Vital Sign Reading Time Taken Comments Blood Pressure 107/61 08/18/2020 6:21 PM DIRECTOR OF SLOT OPERATIONS Pulse 106 08/18/2020 6:21 PM DIRECTOR OF SLOT OPERATIONS Temperature 36.8 ??C (98.3 ??F) 08/18/2020 6:21 PM DIRECTOR OF SLOT OPERATIONS Respiratory Rate 16 08/18/2020 6:21 PM DIRECTOR OF SLOT OPERATIONS Oxygen Saturation 98% 08/18/2020 6:21 PM DIRECTOR OF SLOT OPERATIONS Inhaled Oxygen Concentration - - Weight 54.4 kg (120 lb) 08/18/2020 5:22 PM DIRECTOR OF SLOT OPERATIONS Height - - Body Mass Index 21.26 08/09/2020 6:50 AM DIRECTOR OF SLOT OPERATIONS documented in this encounter Discharge Instructions Discharge Sammie Sanchez MD - 08/18/2020 6:17 PM CST Emergency Department Discharge Information for Dakota Duncan was seen in the [facility] Emergency Department today for back pain concerning for shingles by Dr. Sharma and Dr. Padilla. We recommend that you take valacyclovir three times a day for the next seven days to treat shingles. For fever or pain, Dakota can have: [...] or ibuprofen more than every 6 hours. Note: If your Tylenol came with a dropper marked with 0.4 and 0.8 ml, call us ([phone]) or check with your doctor about the correct dose. These doses are based on your child???s weight. If you have a prescription for these medicines, the dose may be a little different. Either dose is safe. If you have questions, ask a doctor or pharmacist. Please return to the ED or contact her primary physician if she becomes much more ill, if she has a persistent fever, her wound is very red, painful, or leaks blood, she gets a stiff neck, she gets a very bad headache or if you have any other concerns. Please make an appointment to follow up with her Ortho as previously scheduled. Follow-up with PCP if you have any concerns. Medication side effect information: All medicines may [...] home, ask your doctor or a pharmacist. Some possible side effects of the medicines we are recommending for Dakota are: Acetaminophen (Tylenol, for fever or pain) - Upset stomach or vomiting - Talk to your doctor if you have liver disease Ibuprofen (Motrin, Advil. For fever or pain.) - Upset stomach or vomiting - jail use may cause bleeding in the stomach or intestines. See her doctor if she has black or bloody vomit or stool (poop). [employer]OR [employer] SLOT OPERATIONS documented in this encounter Medications at Time [...] 12 hours. Repeat daily. naloxone (NARCAN) 4 [place] 1 spray (4 mg) 0.2 mL 0 [...] hours as needed for anxiety oxyCODONE (ROXICODONE) Take 0.5-1 tablets 15 tablet 0 08/1608/29/2020 10 MG tabletIndications: (5-10 mg) by mouth Acute post-operative every 4 hours as pain needed for moderate to severe pain oxyCODONE (ROXICODONE) 5 Take 1 tablet (5 mg) 10 tablet 0 0 08/18/2020 08/29/2020 MG tablet by mouth every 6 hours as needed for pain polyethylene glycol Take 17 g by mouth 510 g 11 08/16/1904/11/2021 (MIRALAX) 17 GM/Dose daily powderIndications: Acute [...] 7 days documented as of this encounter Progress Notes Estee Dick MD - 08/18/2020 6:20 PM CST Orthopaedic Update Patient presented to ED with fever, chills, and new back pain. Orthopaedic team called, as patient s/p spine surgery with Dr. Spencer 08/09/20. Per patient, this is a 'different pain' than post-op back pain and is located on her right flank. Mom showed me pictures of patient's back from earlier today, which had splotchy red areas to the right on midline. There were 2 clear vesicles at the most proximal aspect of the back, to the right of the spine. VSS in the ED. WBC 6.7. I have low clinical suspicion for infection related to the back surgery. Patient was discussed with Dr. Spencer. We will defer to the ED/peds for further care. Patient to follow-up as scheduled in clinicwith Dr. Spencer. Estee Dick MD Orthopedic Surgery, PGY4 [employer]OR [employer] SLOT OPERATIONS documented in this encounter ED Notes Beverly Lora RN - 08/18/2020 3:57 PM CST Post-op day 9 from spinal fusion. Last night pt developed fever and has a rash to R flank as well asincreased pain, especially when walking. [employer]OR OF SLOT OPERATIONS Glen Sharma MD - 08/18/2020 3:55 PM CST History Chief Complaint Patient presents with ??? Post-op Problem ??? Rash HPI History obtained from patient and mother. Dakota Casiano is a 20 year old female??with a history of tethered cord s/p release, scoliosis??s/p posterior spinal fusion (01/2016, POTS, chronic complex pain syndrome and complex platelet disorder whopresents with a one day history of fever and new onset back pain. Patient reports that she has been recovering from a spinal surgery to replace her spinal instrumentation due to severe pain and concernfor metal hypersensitivity on 08/09/20. Patient reports her recovery has been going well up until yesterday when she developed a fever to 101F and new onset left lower back pain. She describes the pain to be worse with movement and a constant burning sensation. Patient has tried ice/heat on the area with worsening of pain. She has been taking tylenol and oxycodone every six hours to help with back painrelated to surgery. Today, she developed a 8/10 headache associated with nausea and was noted to have a rash on her back. Mom subsequently called clinic who instructed family to go to the ED to be evalu ated. She denies any numbness/tingling, focal weakness, cough, congestion, runny nose, vomiting, diarrhea, abdominal pain, pain with urination or any other concerns. Mom denies any sick contacts or known COVID-19 contacts. PMHx: Past Medical History: Diagnosis Date ??? [...] this encounter. Current Outpatient Medications Medication ??? diazepam (VALIUM) 2 MG tablet ??? diazepam (VALIUM) 2 MG tablet ??? oxyCODONE (ROXICODONE) 10 MG tablet ??? oxyCODONE (ROXICODONE) 5 MG tablet ??? valACYclovir (VALTREX) 1000 mg tablet ??? acetaminophen (TYLENOL) 500 MG tablet ??? cholecalciferol (VITAMIN D3) 125 mcg (5000 units) capsule ??? Lidocaine (LIDOCARE) 4 % Patch ??? naloxone (NARCAN) 4 MG/0.1ML nasal spray ??? Norethindrone Acet-Ethinyl Est (LOESTRIN , PO) ??? polyethylene glycol (MIRALAX) 17 GM/Dose powder ??? pregabalin (LYRICA) 150 MG capsule ??? sertraline (ZOLOFT) 100 MG tablet ??? tranexamic acid (LYSTEDA) 650 MG tablet ALLERGIES: - Dust mites - Hydromorphone- hallucinations IMMUNIZATIONS: Behind on Men B and MenACWY. Has received flu shot this season. SOCIAL HISTORY: Dakota lives with mom. She attend college (virtual due to pandemic). I have reviewed the Medications, Allergies, Past Medical and Surgical History, and Social History inthe Epic system. Review of Systems Please see HPI for pertinent positives and negatives. All other systems reviewed and found to be negative. Physical Exam BP: 120/68 Pulse: 88 Temp: 97.7 ??F (36.5 ??C) Resp: 16 Weight: 54.4 kg (120 lb) SpO2: 99 % Physical Exam Appearance: Alert and appropriate, well developed, nontoxic, with moist mucous membranes. HEENT: Head: Normocephalic and atraumatic. Eyes: PERRL, EOM grossly intact, conjunctivae and scleraeclear. Ears: Tympanic membranes clear bilaterally, without inflammation or effusion. Nose: Nares clear with no active discharge. Mouth/Throat: No oral lesions, pharynx clear with no erythema or exudate. Neck: Supple, no masses, no meningismus. Pulmonary: No grunting, flaring, retractions or stridor. Good air entry, clear to auscultation bilaterally, with no rales, rhonchi, or wheezing. Cardiovascular: Regular rate and rhythm, normal S1 and S2, with no murmurs. Normal symmetric peripheral pulses and brisk cap refill. Abdominal: Normal bowel sounds, soft, mildly tender to palpation on right side, nondistended, with +scybala and no hepatosplenomegaly. Neurologic: Alert and oriented, cranial nerves II-XII intact, moving all extremities equally with grossly normal coordination. Strength 5/5 in upper and lower extremities. Extremities/Back: Mild tenderness to palpation of right lower paralumbar area. Skin: Large spinal incision ranging from thoracic to lumbar region c/d/i. No surrounding erythema ordischarge. Two white papules lateral to spinal incision on right lower back. Sensitive to light touch over right paraspinal area extending to right flank and abdomen. ED Course Procedures Results for orders placed or performed during the hospital encounter of 08/18/20 (from the past 24 hour(s)) UA with Microscopic Result Value Ref Range Color Urine Light Yellow Appearance Urine Clear Glucose Urine Negative NEG^Negative mg/dL Bilirubin Urine Negative NEG^Negative Ketones Urine Negative NEG^Negative mg/dL Specific [place] Urine 1.009 1.003 - 1.035 Blood Urine Negative NEG^Negative pH Urine 6.5 5.0 - 7.0 pH Protein Albumin Urine Negative NEG^Negative mg/dL Urobilinogen mg/dL Normal 0.0 - 2.0 mg/dL Nitrite Urine Negative NEG^Negative Leukocyte Esterase Urine Negative NEG^Negative Source Clean catch urine WBC Urine 1 0 - 5 /HPF RBC Urine 1 0 - 2 /HPF Bacteria Urine Few (A) NEG^Negative /HPF Squamous Epithelial /HPF Urine 2 (H) 0 - 1 /HPF hCG qual urine POCT Result Value Ref Range HCG Qual Urine Negative neg Internal QC OK Yes XR Thoracic Lumbar Standing 2 Views Narrative HISTORY: Concern for possible hardware movement. COMPARISON: 08/12/2020 FINDINGS: 2 views standing scoliosis series at 1708 hours. Posterior spinal fusion hardware is present spanning T4-L4 as seen previously. Given the slightly different degree of rotation present on this compared to prior imaging no movement of hardware is identified. No fractured hardware is identified. Underlying S shaped thoracolumbar curvature is stable in appearance. No focal pulmonary opacity. Normal heart size. Nonobstructive bowel gas pattern with moderate stool. Impression IMPRESSION: No definite hardware failure is identified. JUAN KAYE MD CBC with platelets differential Result Value Ref Range WBC 6.7 4.0 - 11.0 10e9/L RBC Count 3.57 (L) 3.8 - 5.2 10e12/L Hemoglobin 10.7 (L) 11.7 - 15.7 g/dL Hematocrit 32.5 (L) 35.0 - 47.0 % MCV 91 78 - 100 fl MCH 30.0 26.5 - 33.0 pg MCHC 32.9 31.5 - 36.5 g/dL RDW 11.7 10.0 - 15.0 % Platelet Count 515 (H) 150 - 450 10e9/L Diff Method Automated Method % Neutrophils 51.4 % % Lymphocytes 36.1 % % Monocytes 8.6 % % Eosinophils 3.0 % % Basophils 0.6 % % Immature Granulocytes 0.3 % Nucleated RBCs 0 0 /100 Absolute Neutrophil 3.5 1.6 - 8.3 10e9/L Absolute Lymphocytes 2.4 0.8 - 5.3 10e9/L Absolute Monocytes 0.6 0.0 - 1.3 10e9/L Absolute Eosinophils 0.2 0.0 - 0.7 10e9/L Absolute Basophils 0.0 0.0 - 0.2 10e9/L Abs Immature Granulocytes 0.0 0 - 0.4 10e9/L Absolute Nucleated RBC 0.0 CRP inflammation Result Value Ref Range CRP Inflammation 16.0 (H) 0.0 - 8.0 mg/L Lipase Result Value Ref Range Lipase 109 73 - 393 U/L Comprehensive metabolic panel Result Value Ref Range Sodium 138 133 - 144 mmol/L Potassium 3.6 3.4 - 5.3 mmol/L Chloride 104 96 - 110 mmol/L Carbon Dioxide 30 20 - 32 mmol/L Anion Gap 4 3 - 14 mmol/L Glucose 110 (H) 70 - 99 mg/dL Urea Nitrogen 8 7 - 30 mg/dL Creatinine 0.51 0.50 - 1.00 mg/dL GFR Estimate >90 >60 mL/min/[1.73_m2] GFR Estimate If Black >90 >60 mL/min/[1.73_m2] Calcium 9.0 8.5 - 10.1 mg/dL Bilirubin Total 0.2 0.2 - 1.3 mg/dL Albumin 3.2 (L) 3.4 - 5.0 g/dL Protein Total 7.0 6.8 - 8.8 g/dL Alkaline Phosphatase 122 40 - 150 U/L ALT 30 0 - 50 U/L AST 25 0 - 35 U/L Symptomatic Influenza A/B & SARS-CoV2 (COVID-19) Virus PCR Multiplex Specimen: Nasopharyngeal Result Value Ref Range Flu A/B & SARS-COV-2 PCR Source Nasopharyngeal SARS-CoV-2 PCR Result POSITIVE (AA) Influenza A PCR Negative NEG^Negative Influenza B PCR Negative NEG^Negative Respiratory Syncytial Virus PCR (Note) Flu A/B & SARS-CoV-2 PCR Comment (Note) Medications lidocaine 1 % (0.2 mLs Given 08/18/201658) ondansetron (ZOFRAN-ODT) ODT tab 4 mg (4 mg Oral Given 08/18/201657) oxyCODONE (ROXICODONE) tablet 5 mg (5 mg Oral Given 08/18/201657) lidocaine 1 % (0.2 mLs Given 08/18/20 1716) History obtained from family. Old chart from [facility] reviewed, supported history as above. Labs reviewed. CBC with mild anemia. CRP mildly elevated. CMP, lipase WNL. UA negative. Imaging reviewed and revealed unchanged spinal hardware. COVID positive VZV antibodies pending Critical care time: none Assessments & Plan (with Medical Decision Making) Dakota Casiano is a 20 year old female??with a history of tethered cord s/p release, scoliosis??s/p posterior spinal fusion (01/2016, POTS, chronic complex pain syndrome and complex platelet disorder whopresents with a one day history of fever and new onset back pain. Patient is currently recovering from spinal surgery to replace her spinal instrumentation due to severe pain and concern for metal hypersensitivity on 08/09/20. Upon arrival to the ED, vital signs are stable and patient is well appearing on exam. She has mild tenderness to palpation of her right paraspinal area and skin is sensitive to light touch. Her incision is well appearing without any erythema or drainage. Labs and imaging were obtained. CBC was relatively normal with mild normocytic anemia. CMP and lipase were WNL making intraabdominal process less likely. CRP mildly elevated at 16 which is not unexpected given recent surgery. UA without any evidenceof infection. Spinal x-ray unchanged from previous, making hardware malfunction unlikely. Given sensitivity to light touch and history of burning sensation, IgG and IgM varicella labs were sent. Low suspicion for infection related to recent surgery as incision appears to be well healing and does not have any erythema or drainage. Ortho resident came and assessed patient in ED and agree with this assessment. Feel her symptoms are most consistent with shingles and will send home on seven day course of valacyclovir. Patient was also sent home with 10 additional valium and oxycodone as family is running low on these medications at home. Discussed reasons to return to the ED and all questions were answered prior to discharge. Plan for follow-up with Ortho as previously scheduled. I have reviewed the nursing notes. I have reviewed the findings, diagnosis, plan and need for follow up with the patient. Discharge Medication List as of 08/18/2020 6:20 PM START taking these medications Details !! diazepam (VALIUM) 2 MG tablet Take 1 tablet (2 mg) by mouth every 6 hours as needed for muscle spasms, Disp-10 tablet, R-0, Local Print !! oxyCODONE (ROXICODONE) 5 MG tablet Take 1 tablet (5 mg) by mouth every 6 hours as needed for pain, Disp-10 tablet, R-0, Local Print valACYclovir (VALTREX) 1000 mg tablet Take 1 tablet (1,000 mg) by mouth 3 times daily for 7 days, Disp-21 tablet, R-0, E-Prescribe !! - Potential duplicate medications found. Please discuss with provider. Final diagnoses: Herpes zoster without complication 2018 novel coronavirus disease (COVID-19) Patient was seen and discussed with Dr. Sharma. ?? Sammie Padilla MD, MPH Pediatric Hospital Medicine Fellow, PGY4 Pager # [phone] 08/18/2020 [facility] EMERGENCY DEPARTMENT This data collected with the Resident working in the Emergency Department. Patient was seen and evaluated by myself and I repeated the history and physical exam with the patient. The plan of care was discussed with them. The ren portions of the note including the entire assessment and plan reflect my d ocumentation. Patient COVID result came back after she was discharged. I called and informed her of the result andinstructed her and her mother to quarantine for 10 days and symptom resolution as per CDC guidelines. I advised her to continue the valacyclovir as her back pain does not fit a typical COVID presentation and shingles is still on the differential. She should return to care if she develops difficulty breathing, dehydration, or prolonged fever. Glen Sharma MD 08/18/201947 [employer]OT OPERATIONS documented in this encounter Plan of Treatment Not on filedocumented as of this encounter Procedures Procedure Name Priority Date/Time Associated Diagnosis Comme nts INFLUENZA A/B & STAT 08/18/2020 6:08 Herpes zoster Results for this SARS-COV2 PCR PM DIRECTOR OF SLOT OPERATIONS without complication proced ure are in MULTIPLEX the results section. VARICELLA ZOSTER VIRUS STAT 08/18/2020 5:24 Herpes zoster R esults for this ANTIBODY IGG PM [employer]OT OPERATIONS without complication procedu re are in the results section. VARICELLA ZOSTER STAT 08/18/2020 5:24 Herpes zoster Results for this ANTIBODY IGM PM [employer]OT OPERATIONS without complication procedu re are in the results section. CBC WITH PLATELETS & STAT 08/18/2020 5:10 Resu lts for this DIFFERENTIAL PM [employer]OT OPERATIONS procedure are i n the results section. LIPASE STAT 08/18/2020 5:10 Results for this PM [employer] OPERATIONS procedure are i n the results section. CRP INFLAMMATION STAT 08/18/2020 5:10 Results for this PM [employer]PERATIONS procedure are i n the results section. COMPREHENSIVE STAT 08/18/2020 5:10 Results for this METABOLIC PANEL PM [employer]OT OPERATIONS procedure ar e in the results section. XR THORACIC LUMBAR STAT 08/18/2020 5:02 Result s for this STANDING 2 VIEWS PM [employer] OPERATIONS procedure a re in the results section. HCG QUALITATIVE URINE STAT 08/18/2020 5:01 Res ults for this POCT PM [employer]OT OPERATIONS procedure are i n the results section. ROUTINE UA WITH STAT 08/18/2020 4:50 Results f or this MICROSCOPIC PM [employer] OPERATIONS procedure are i n the results section. URINE CULTURE STAT 08/18/2020 4:36 Herpes zoster Results fo r this PM [employer]OT OPERATIONS without complication procedu re are in the results section. documented in this encounter Results (ABNORMAL) Symptomatic Influenza A/B & SARS-CoV2 (COVID-19) Virus PCR Multiplex (08/18/2020 6:08PM DIRECTOR OF SLOT OPERATIONS) [facility] Method Time Signature Flu A/B & Nasopharyngeal 08/18/2020 [facility] SARS-COV-2 6:11 PM DIRECTOR OF SLOT OPERATIONS [facility] PCR Source [facility] SARS-CoV-2 POSITIVE (AA) 08/18/2020 [facility] PCR Result 7:29 PM DIRECTOR OF SLOT OPERATIONS [facility] Comment: SARS-CoV2 (COVID-19) RNA detect ed, presumed positive. Influenza A PCR Negative NEG^Negative 08/18/2020 7:29 PM CS T [facility] Comment: Influenza A RNA not detected, p resumed negative. Influenza B PCR Negative NEG^Negative 08/18/2020 7:29 PM CS T [facility] Comment: Influenza B RNA not detected, p resumed negative. Respiratory Syncytial (Note) 08/18/2020 7:29 PM DIRECTOR OF SLOT OPERATIONS [facility] Virus PCR [facility] Comment: Test not performed with this nd thodology. Flu A/B & SARS-CoV-2 PCR (Note) 08/18/2020 7:29 PM DIRECTOR OF SLOT OPERATIONS [facility] Comment: Testing was performed using the boaz SA RS-CoV-2 & Influenza A/B Assay on the boaz Lashanda System. This test should be ordered for the dete ction of SARS-CoV-2 and influenza viruses in individuals who meet clinical and/or epidemiological criteria. Test performance is unknown in asymptomatic patients. This test is for in vitro diagnostic use under the FDA EUA for laboratories certified under CLIA to perform moderate and/or high complexity testing. This test has not been FDA cleared or approve d. A negative result does not rule out the presence of PCR inhibitors in the specimen or target RNA in concentration below the limit of detection for the assay. If only one viral target is positive but coinfection with multiple targets is suspected, the sample should be re-teste d with another FDA cleared, approved or authorized test, if coinfection would change clinical management. [facility] [employer] are certi fied under the Clinical Laboratory Improvement Amendments of 1988 (CLIA-88) as qualified to perform moderate and/or high complexity laboratory testin g. Specimen (Source) Anatomical Collection Method Collection Time Re ceived Time Location / / Volume Laterality Specimen from 08/18/2020 6:08 08/18/2020 nasopharyngeal PM [employer]OR OF SLOT OPERATIONS 6:19 PM DIRECTOR OF SLOT OPERATIONS structure (specimen) Sammie Padilla MD LAB - MICRO GENERAL ORDERABL ES Performing Organization Address City/State/ZIP Code Phon e Number [facility] [address] [place] [address] [facility] [place] [facility] [place] [facility] Varicella zoster antibody IgM (08/18/2020 5:24 PM DIRECTOR OF SLOT OPERATIONS) athologist Signature Vari Zoster JOSUE 0.04 <=0.90 ISR 08/21/2020 [facility] [place] [facility] T[facility] IGM 1:10 AM [facility] Comment: (Note) INTERPRETIVE INFORMATION: Varicella-Zost er Virus Antibody, IgM 0.90 ISR or less ........ Negative - No significant ? level of detectable ? varicella-zoster virus ? IgM antibody. 0.91-1.09 ISR ........... Equivocal - R epeat testing in ? 10-14 days may be helpful. 1.10 ISR or greater ..... Positive - Si gnificant level ? of detectable varicella-zoster ? virus IgM antibody. Indicative ? of current or recent infection. ? However, low levels of IgM ? antibodies may occasionally ? persist for more than 12 months ? post-infection or immunization. Performed By: [facility] [address] [place] [id number] Watchmaker Apprentice: Brandi Dooley MD Specimen Anatomical Collection Method Collection Time Receive d Time (Source) Location / / Volume Laterality Blood specimen 08/18/2020 5:24 PM 021 6:56 (specimen) DIRECTOR OF SLOT OPERATIONS PM DIRECT[employer] OF SLOT OPERATIONS Sammie Padilla MD LAB - BLOOD ORDERABLES Performing Organization Address City/State/ZIP Code Phon e Number [facility] (ABNORMAL) Varicella Zoster Virus Antibody IgG (08/18/2020 5:24 PM DIRECTOR OF SLOT OPERATIONS) P athologist Signature Varicella 0.9 (H) 0.0 - 0.8 08/19/2020 [facility] Zoster Virus AI 12:28 PM DIRECTOR OF SLOT OPERATIONS [facility] Antibody IgG [facility] Comment: Equivocal, please recollect. Antibody index (AI) values reflect quali tative changes in antibody concentration that cannot be directly as sociated with clinical condition or disease state. Specimen Anatomical Collection Method Collection Time Receive d Time (Source) Location / / Volume Laterality Blood specimen 08/18/2020 5:24 PM 021 6:56 (specimen) DIRECTOR OF SLOT OPERATIONS PM DIRECT[employer] OF SLOT OPERATIONS Sammie Padilla MD LAB - BLOOD ORDERABLES Performing Organization Address City/State/ZIP Code Phon e Number [facility] [address] [place] [address] [facility] (ABNORMAL) Comprehensive metabolic panel (08/18/2020 5:10 PM DIRECTOR OF SLOT OPERATIONS) Analysis Performed At Patho logist Time Signature Sodium 138 133 - 144 08/18/2020 [facility] mmol/L 5:44 PM [facility] Potassium 3.6 3.4 - 5.3 08/18/2020 [facility] mmol/L 5:44 PM [facility] Chloride 104 96 - 110 08/18/2020 [facility] mmol/L 5:44 PM [facility] Carbon Dioxide 30 20 - 32 08/18/2020 [facility] mmol/L 5:52 PM [facility] Anion Gap 4 3 - 14 08/18/2020 [facility] mmol/L 5:52 PM [facility] Glucose 110 (H) 70 - 99 08/18/2020 [facility] mg/dL 5:52 PM [facility] Urea Nitrogen 8 7 - 30 08/18/2020 [facility] mg/dL 5:52 PM [facility] Creatinine 0.51 0.50 - 08/18/2020 [facility] 1.00 mg/dL 5:52 PM [facility] GFR Estimate >90 >60 08/18/2020 [facility] mL/min/{1. 5:52 PM [facility] 73_m2} [facility] Comment: Non GFR Calc Starting 07/22/2018, serum creatinine ba sed estimated GFR (eGFR) will be calculated using the Chronic Kidney Dise ase Epidemiology Collaboration (CKD-EPI) equation. GFR Estimate If >90 >60 mL/min/{1.73_m2} 08/18/2020 5: 52 PM [facility] Black [facility] Comment: GFR Calc Starting 07/22/2018, serum creatinine ba sed estimated GFR (eGFR) will be calculated using the Chronic Kidney Dise ase Epidemiology Collaboration (CKD-EPI) equation. Calcium 9.0 8.5 - 10.1 08/18/2020 5:52 PM [facility] mg/dL [facility] Bilirubin Total 0.2 0.2 - 1.3 08/18/2020 5:53 PM [facility] mg/dL [facility] Albumin 3.2 (L) 3.4 - 5.0 g/dL 08/18/2020 5:53 PM [facility] Protein Total 7.0 6.8 - 8.8 g/dL 08/18/2020 5:53 PM [facility] Alkaline Phosphatase 122 40 - 150 U/L 08/18/2020 5:53 PM [facility] ALT 30 0 - 50 U/L 08/18/2020 5:53 PM [facility] AST 25 0 - 35 U/L 08/18/2020 5:53 PM [facility] Specimen Anatomical Collection Method Collection Time Receive d Time (Source) Location / / Volume Laterality Blood specimen 08/18/2020 5:10 PM 021 5:24 (specimen) DIRECTOR OF SLOT OPERATIONS PM DIRECTOR OF SLOT OPERATIONS Sammie Padilla MD LAB - BLOOD ORDERABLES Performing Organization Address City/[facility] Code Phon e Number [place] [phone] [facility] Lipase (08/18/2020 5:10 PM DIRECTOR OF SLOT OPERATIONS) P athologist Signature Lipase 109 73 - 393 08/18/2020 [facility] U/L 5:53 PM [facility] Specimen Anatomical Collection Method Collection Time Receive d Time (Source) Location / / Volume Laterality Blood specimen 08/18/2020 5:10 PM 021 5:24 (specimen) DIRECTOR OF SLOT OPERATIONS PM DIRECTOR OF SLOT OPERATIONS Sammie Padilla MD LAB - BLOOD ORDERABLES Performing Organization Address City/[facility] Phon e Number [address] [address] [facility] (ABNORMAL) CRP inflammation (08/18/2020 5:10 PM DIRECTOR OF SLOT OPERATIONS) [facility] Superprotonic Method Time Signature CRP Inflammation 16.0 (H) 0.0 - 8.0 08/18/2020 [facility] F mg/L 5:53 PM [facility] Specimen Anatomical Collection Method Collection Time Receive d Time (Source) Location / / Volume Laterality Blood specimen 08/18/2020 5:10 PM 021 5:24 (specimen) DIRECTOR OF SLOT OPERATIONS PM DIRECTOR OF SLOT OPERATIONS Sammie Padilla MD LAB - BLOOD ORDERABLES Performing Organization Address City/State/ZIP Code Phon e Number [facility] [address] [place] [address] [facility] (ABNORMAL) CBC with platelets differential (08/18/2020 5:10 PM DIRECTOR OF SLOT OPERATIONS) [facility] Superprotonic Method Time Signature WBC 6.7 4.0 - 08/18/2020 [facility] 11.0 5:28 PM [facility] 10e9/L [facility] RBC Count 3.57 (L) 3.8 - 5.2 08/18/2020 [facility] 10e12/L 5:28 PM [facility] Hemoglobin 10.7 (L) 11.7 - 08/18/2020 [facility] 15.7 g/dL 5:28 PM [facility] Hematocrit 32.5 (L) 35.0 - 08/18/2020 [facility] 47.0 % 5:28 PM [facility] MCV 91 78 - 100 08/18/2020 [facility] fl 5:28 PM [facility] MCH 30.0 26.5 - 08/18/2020 [facility] 33.0 pg 5:28 PM [facility] MCHC 32.9 31.5 - 08/18/2020 [facility] 36.5 g/dL 5:28 PM [facility] RDW 11.7 10.0 - 08/18/2020 [facility] 15.0 % 5:28 PM [facility] Platelet Count 515 (H) 150 - 450 08/18/2020 [facility] 10e9/L 5:28 PM [facility] Diff Method Automated 08/18/2020 [facility] Method 5:28 PM [facility] % Neutrophils 51.4 % 08/18/2020 [facility] 5:28 PM [facility] % Lymphocytes 36.1 % 08/18/2020 [facility] 5:28 PM [facility] % Monocytes 8.6 % 08/18/2020 [facility] 5:28 PM [facility] % Eosinophils 3.0 % 08/18/2020 [facility] 5:28 PM [facility] % Basophils 0.6 % 08/18/2020 [facility] 5:28 PM [facility] % Immature 0.3 % 08/18/2020 [facility] Granulocytes 5:28 PM [facility] Nucleated RBCs 0 0 /100 08/18/2020 [facility] 5:28 PM [facility] Absolute 3.5 1.6 - 8.3 08/18/2020 [facility] Neutrophil 10e9/L 5:28 PM [facility] Absolute 2.4 0.8 - 5.3 08/18/2020 [facility] Lymphocytes 10e9/L 5:28 PM [facility] Absolute 0.6 0.0 - 1.3 08/18/2020 [facility] Monocytes 10e9/L 5:28 PM [facility] Absolute 0.2 0.0 - 0.7 08/18/2020 [facility] Eosinophils 10e9/L 5:28 PM [facility] Absolute 0.0 0.0 - 0.2 08/18/2020 [facility] Basophils 10e9/L 5:28 PM [facility] Abs Immature 0.0 0 - 0.4 08/18/2020 [facility] Granulocytes 10e9/L 5:28 PM [facility] Absolute 0.0 08/18/2020 [facility] Nucleated RBC 5:28 PM [facility] Specimen Anatomical Collection Method Collection Time Receive d Time (Source) Location / / Volume Laterality Blood specimen 08/18/2020 5:10 PM 021 5:24 (specimen) DIRECTOR OF SLOT OPERATIONS PM DIRECTOR OF SLOT OPERATIONS Sammie Padilla MD LAB - BLOOD ORDERABLES Performing Organization Address City/State/ZIP Code Phon e Number [facility] [address] [place] [address] [facility] XR Thoracic Lumbar Standing 2 Views (08/18/2020 5:02 PM DIRECTOR OF SLOT OPERATIONS) Anatomical Region Laterality Modality C-spine, T-spine, L-spine Computed Radio graphy Specimen (Source) Anatomical Location Collection Method / Collectio n Time Received Time / Laterality Volume Impressions 08/18/2020 5:26 PM DIRECTOR OF SLOT OPERATIONS IMPRESSION: No definite hardware failure is identified. JUAN KAYE MD Narrative 08/18/2020 5:26 PM DIRECTOR OF SLOT OPERATIONS HISTORY: Concern for possible hardware movement. COMPARISON: 08/12/2020 FINDINGS: 2 views standing scoliosis ser ies at 1708 hours. Posterior spinal fusion hardware is present spanni ng T4-L4 as seen previously. Given the slightly different degree of r otation present on this compared to prior imaging no movement of hardware is identified. No fractured hardware is identified. Underl yee S shaped thoracolumbar curvature is stable in appearance. No fo christelle pulmonary opacity. Normal heart size. Nonobstructive bowel gas pat tern with moderate stool. Procedure Note Juan Kaye MD - 08/18/2020Formattin g of this note might be different from the original. HISTORY: Concern for possible hardware m ovement. COMPARISON: 08/12/2020 FINDINGS: 2 views standing scoliosis ser ies at 1708 hours. Posterior spinal fusion hardware is present spanni ng T4-L4 as seen previously. Given the slightly different degree of r otation present on this compared to prior imaging no movement of hardware is identified. No fractured hardware is identified. Underl yee S shaped thoracolumbar curvature is stable in appearance. No fo christelle pulmonary opacity. Normal heart size. Nonobstructive bowel gas pat tern with moderate stool. IMPRESSION: No definite hardware failure is identified. JUAN KAYE MD Sammie Padilla MD IMG DIAGNOSTIC IMAGING ORDER DANO hCG qual urine POCT (08/18/2020 5:01 PM DIRECTOR OF SLOT OPERATIONS) P athologist Signature HCG Qual Urine Negative neg Internal QC OK Yes Specimen (Source) Anatomical Collection Method Collection Time Re ceived Time Location / / Volume Laterality Urine specimen 08/18/2020 5:01 PM (specimen) DIRECTOR OF SLOT OPERATIONS Glen Sharma MD LAB - ENTER/EDIT POCT (ABNORMAL) UA with Microscopic (08/18/2020 4:50 PM DIRECTOR OF SLOT OPERATIONS) [facility] Method Time Signature Color Urine Light Yellow 08/18/2020 [facility] 5:17 PM [facility] Appearance Urine Clear 08/18/2020 [facility] F 5:17 PM [facility] Glucose Urine Negative NEG^Negat 08/18/2020 [facility] mindy mg/dL 5:17 PM [facility] Bilirubin Urine Negative NEG^Negat 08/18/2020 [facility] mindy 5:17 PM [facility] Ketones Urine Negative NEG^Negat 08/18/2020 [facility] mindy mg/dL 5:17 PM [facility] Specific [place] 1.009 1.003 - 08/18/2020 [facility] F Urine 1.035 5:17 PM [facility] Blood Urine Negative NEG^Negat 08/18/2020 [facility] mindy 5:17 PM [facility] pH Urine 6.5 5.0 - 7.0 08/18/2020 [facility] pH 5:17 PM [facility] Protein Albumin Negative NEG^Negat 08/18/2020 [facility] Urine mindy mg/dL 5:17 PM [facility] Urobilinogen Normal 0.0 - 2.0 08/18/2020 [facility] mg/dL mg/dL 5:17 PM [facility] Nitrite Urine Negative NEG^Negat 08/18/2020 [facility] mindy 5:17 PM [facility] Leukocyte Negative NEG^Negat 08/18/2020 [facility] Esterase Urine mindy 5:17 PM [facility] Source Clean catch 08/18/2020 [facility] urine 5:01 PM [facility] WBC Urine 1 0 - 5 08/18/2020 [facility] /HPF 5:17 PM [facility] RBC Urine 1 0 - 2 08/18/2020 [facility] /HPF 5:17 PM [facility] Bacteria Urine Few (A) NEG^Negat 08/18/2020 [facility] mindy /HPF 5:17 PM [facility] Squamous 2 (H) 0 - 1 08/18/2020 [facility] Epithelial /HPF /HPF 5:17 PM [facility] Specimen Anatomical Collection Method Collection Time Receive d Time (Source) Location / / Volume Laterality Urine specimen URINE SPECIMEN 08/18/2020 4:50 PM 08/18 5:01 (specimen) OBTAINED BY CLEAN DIRECTOR OF SLOT OPERATIONS PM DIRECTOR OF SLOT OPERATIONS CATCH PROCEDURE / Unknown Sammie Padilla MD LAB - URINE ORDERABLES Performing Organization Address City/State/ZIP Code Phon e Number [facility] [address] [place] [address] [facility] Urine Culture (08/18/2020 4:36 PM DIRECTOR OF SLOT OPERATIONS) Component Value Ref Test Analysis Performed At [facility] Range Method Time Signature Specimen Unspecified INFECTIOUS Description Urine DISEASES [facility], [facility] Special Specimen 08/18/2020 INFECTIOUS Requests received in 8:11 PM DIRECTOR OF SLOT OPERATIONS DISEASES preservative DIAGNOSTIC LABORATORY, [facility] Culture Micro No growth 08/19/2020 INFECTIOUS 5:17 PM DIRECTOR OF SLOT OPERATIONS DISEASES DIAGNOSTIC LABORATORY, [facility] Specimen (Source) Anatomical Collection Method Collection Time Re ceived Time Location / / Volume Laterality Unspecified Urine URINE SPECIMEN 08/18/2020 4:36 08/18 6:14 OBTAINED BY CLEAN PM DIRECTOR OF SLOT OPERATIONS PM DIRECTOR OF SLOT OPERATIONS CATCH PROCEDURE / Unknown Sammie Padilla MD LAB - MICRO GENERAL ORDERABL ES Performing Organization Address City/State/ZIP Code Phon e Number INFECTIOUS DISEASES DIAGNOSTIC [address] [facility] [place] [address] LABORATORY, [facility] documented in this encounter Visit Diagnoses Diagnosis Herpes zoster without complication 2019 novel coronavirus disease (COVID-19 ) documented in this encounter Administered Medications Inactive Administered Medications - up to 3 most recent administrations Medication Order MAR Action Action Date Dose Rate Site lidocaine 1 % Given 08/18/2020 4:59 PM DIRECTOR OF SLOT OPERATIONS 0.2 mLs Starting on Ariela 08/18/20 at 1642, For 1 dose, Nichole Garcia: cabinet override lidocaine 1 % Given 08/18/2020 5:16 PM DIRECTOR OF SLOT OPERATIONS 0.2 mLs Starting on Ariela 08/18/20 at 1709, For 1 dose, Nichole Garcia: cabinet override ondansetron (ZOFRAN-ODT) ODT tab 4 mg Given 08/18/2020 4:58 PM DIRECTOR OF SLOT OPERATIONS 4 mg 4 mg, Oral, ONCE, On Ariela 08/18/20 at 1650, For 1 dose, With dry hands, peel back foil backing and gently remove tablet. Do not push oral disintegrating tablet through foil backing. Administer immediately on tongue and oral disintegrating tablet dissolves in seconds, then swallow with saliva. Liquid not required. oxyCODONE (ROXICODONE) tablet 5 mg Given 08/18/2020 4:58 PM DIRECTOR OF SLOT OPERATIONS 5 mg 5 mg, Oral, ONCE, On Ariela 08/18/20 at 1650, For 1 dose documented in this encounter Active and Recently Administered Medications Times are shown in DIRECTOR OF SLOT OPERATIONS. Scheduled Medication Order 08/16/2020 08/17/2020 08/18/2020 ondansetron (ZOFRAN-ODT) ODT tab 4 mg (COMPLETED) 1657 (Given - Provider: Sophia Garcia RN) 4 mg, Oral, ONCE, Ariela 08/18/20 at 1650, F or 1 dose, With dry hands, peel back foil backing and gently remove tablet. Do not push oral disintegrating tablet through foil backing. Administer immediately on tongue and oral disintegrating tablet d issolves in seconds, then swallow with saliva. Liquid not required. oxyCODONE (ROXICODONE) tablet 5 mg (COMPLETED) 1657 (Given - Provider: Sophia Garcia RN) 5 mg, Oral, ONCE, Ariela 08/18/20 at 1650, For 1 dose No Frequency Medication Order 08/16/2020 08/17/2020 08/18/2020 lidocaine 1 % (COMPLETED) 165 ( Given - Provider: Sophia Garcia RN) Starting Ariela 08/18/20 at 1642, For 1 dose, Nichole Garcia: cabinet override lidocaine 1 % (COMPLETED) 1716 ( Given - Provider: Sophia Garcia RN) Starting Ariela 08/18/20 at 1709, For 1 dose, Nichole Garcia: cabinet override documented in this encounter Additional Health Concerns Infection Onset Date Last Indicated Resolved Time Rule Out COVID-19 08/18/2020 08/18/2020 08/18/2020 7:2 9 PM DIRECTOR OF SLOT OPERATIONS documented as of this encounter Care Teams Tractor Crane Engineer Relationship Specialty Start Date End Date Josh Carrero PCP - General Family Medicine 08/09/[address] [address] Julian Spencer MD MD Orthopedics 03/08/[address] [place] [address] Mariposa Atwood Assigned PCP 04/29/20 11/12/20 MD Nettie [address] [facility] [place] [address] Julian Spencer MD Assigned Musculoskeletal 05/27/[address] Provider [place], [place] [phone] Eugenio Finney Assigned Pediatric 06/19/2005/07 MD David Specialist Provider [address] [facility] [address] [place], [place] [id number] documented as of this encounter
--- OUTSIDE RECORDS SUMMARY | 2022-06-18 11:58 | XMS_ITS | Encounter Summary ---
:2001 Author Organization [place] Address [address] [place] [address] Care Team Providers Name Role Phone Julian Spencer MD Unavailable Mariposa Atwood MD Unavailable [phone] Julian Spencer MD Unavailable Eugenio Finney MD Unavailable [phone] Josh Carrero Primary Care Provider Reason for Visit Reason Onset Date Comments Clinic Care Coordination - Follow-up 08/19/2020 Encounter Details Date Type Department Care Team Description 08/19/2020 Telephone [facility] Sabina Asif RN Clinic Care Coordination Orthopedic Clinic [phone] - Follow-u [facility] ([facility]) [address] [place] [address] [address] [place] [address] Social History Tobacco Use Types [...] with No / Unsure 08/18/2020 3:05 PM WAX COATING MACHINE TENDER someone who was confirmed or suspected to have Coronavirus / COVID-19? documented as of this encounter Miscellaneous Notes Telephone Encounter - Sabina Asif RN - 08/19/2020 3:16 PM CST Postop spine surgery 08-09-20. called because he wanted me to call MOm. He stated he was notified +Shingles Diagnosis from ER visit yesterday-see ER DR. Note they called Mom back including +COVID test result. I called Mom & she stated she is aware of both Diagnoses & does not think she really is COVID + due to circumstances with family at home & she is being retested at home & was given medicine for Shingles pain in ER yesterday. F/U with Primary MD at home. Call back prn. Mom agreed. Sabina Asif RN. COATING MACHINE TENDER documented in this encounter Plan of Treatment Not on filedocumented as of this encounter Visit Diagnoses Not on filedocumented in this encounter Additional Health Concerns Infection Onset Date Last Indicated Resolved Time COVID-19 08/18/2020 08/18/2020 09/08/2020 11:39 PM WAX COATING MACHINE TENDER documented as of this encounter Care Teams Boat Canvas Maker And Installer Relationship Specialty Start Date End Date Josh Carrero PCP - General Family Medicine 08/09/[address] [address] Julian Spencer MD MD Orthopedics 03/08/[address] [place] [phone] Mariposa Atwood Assigned PCP 04/29/20 11/12/20 MD Nettie [address] [facility] [place] [place] [phone] Julian Spencer MD Assigned Musculoskeletal 05/27/[address] Provider [place], [place] [address] Eugenio Finney Assigned Pediatric 06/19/2005/07 MD David Specialist Provider [address] [facility] [address] [place] [address] documented as of this encounter
--- OUTSIDE RECORDS SUMMARY | 2022-06-18 11:59 | XMS_ITS | Encounter Summary ---
:2001 Author Organization [place] Address [address] [place] [address] Care Team Providers Name Role Phone Julian Spencer MD Unavailable Mariopsa Atwood MD Unavailable [phone] Julian Spencer MD Unavailable Eugenio Finney MD Unavailable [phone] Josh Carrero Primary Care Provider Reason for Visit Reason Onset Date Comments Referral 08/12/2020 Encounter Details Date Type Department Care Team Description 08/12/2020 Telephone [facility] None Referral [address] Floor [place] [phone] Social History Tobacco Use Types Packs/Day Years Used Date Smoking Tobacco: Never Smokeless Tobacco: Never Alcohol Use Standard Drinks/Week Comments Not Currently 0 (1 standard drink = 0.6 oz pure alcoho l) Sex Assigned at Date Recorded Female 12/02/2020 1:42 PM CDT COVID-19 Exposure Response Date Recorded In the last month, have you been in contact with No / Unsure 08/09/2020 6:36 AM NUMERICAL CONTROL NESTING OPERATOR someone who was confirmed or suspected to have Coronavirus / COVID-19? documented as of this encounter Miscellaneous Notes Telephone Encounter - Peggy Yun RN - 08/16/2020 2:11 PM CST Dakota was phoned by RN regarding the referral from Dr Spencer for her to see Dr Esposito. Pt was called and it was explained that Dr Esposito can see Dakota at [facility] since he is ending his practice here at the [facility]. Pt's mother was also on the line and said they had the number for [facility]. They were encouraged to call [facility] for an appointment with Dr Esposito. Peggy Yun RN RICAL CONTROL NESTING OPERATOR Telephone Encounter - Perez Goel - 08/12/2020 8:40 AM CST Per [facility] Priority line, this referral was discussed between Dr. Esposito and Dr. Spencer. Please schedule accordingly. With Dr. Esposito's last day in September, Mayra Parks is not able to schedule new patients withDr. Esposito. Thank you! RICAL CONTROL NESTING OPERATOR documented in this encounter Plan of Treatment Not on filedocumented as of this encounter Visit Diagnoses Not on filedocumented in this encounter Care Teams Gin Operator Relationship Specialty Start Date End Date Josh Carrero PCP - General Family Medicine 08/09/[address] [address] Julian Spencer MD MD Orthopedics 03/08/[address] [place] [id number] Mariposa Atwood Assigned PCP 04/29/20 11/12/20 MD Nettie [address] [facility] [place], [place] [phone] Julian Spencer MD Assigned Musculoskeletal 05/27/[address] Provider [place], [place] [address] Eugenio Finney Assigned Pediatric 06/19/2005/07 MD David Specialist Provider [address] [address] documented as of this encounter
--- OUTSIDE RECORDS SUMMARY | 2022-06-18 11:59 | XMS_ITS | Encounter Summary ---
:2001 Author Organization [place] Address [address] [place] [address] Care Team Providers Name Role Phone Julian Spencer MD Unavailable Mariposa Atwood MD Unavailable [phone] Julian Spencer MD Unavailable Eugenio Finney MD Unavailable [phone] Josh Carrero Primary Care Provider Encounter Details Date Type Department Care Team Description 08/09/2020 Travel Social History Tobacco Use Types Packs/Day [...] with No / Unsure 08/09/2020 6:36 AM COLLEGE BASKETBALL COACH someone who was confirmed or suspected to have Coronavirus / COVID-19? documented as of this encounter Plan of Treatment Not on filedocumented as of this encounter Visit Diagnoses Not on filedocumented in this encounter Care Teams Certified Nuclear Medicine Technologist Relationship Specialty Start Date End Date Josh Carrero PCP - General Family Medicine 08/09/[address] [address] Julian Spencer MD MD Orthopedics 03/08/[address] [place] [address] Mariposa Atwood Assigned PCP 04/29/20 11/12/20 MD Nettie [address] [facility] [place] [address] Julian Spencer MD Assigned Musculoskeletal 05/27/[address] [place] [address] Eugenio Finney Assigned Pediatric 06/19/2005/07 MD David Specialist Provider [address] [place] [address] [facility] [address] [place] [address] documented as of this encounter
--- OUTSIDE RECORDS SUMMARY | 2022-06-18 11:59 | XMS_ITS | Encounter Summary ---
:2001 Author Organization [place] Address [facility] [place] [address] Care Team Providers Name Role Phone Julian Spencer MD Unavailable Mariposa Atwood MD Unavailable [phone] Julian Spencer MD Unavailable Eugenio Finney MD Unavailable [phone] Josh Carrero Primary Care Provider Encounter Details Date Type Department Care Team Description 08/10/2020 Orders Only [facility] Urbano Price is, unspecified scoliosis type, unspecified spinal region (Primary Dx); Pediatric MD Esteban Neuromuscular scoliosis of thoracolumbar region Special[facility] [address] [place] [address], [address] [address] [place], [place] [phone] (Wo rk) [phone] Social History Tobacco Use Types Packs/Day Years Used Date Smoking Tobacco: Never Smokeless Tobacco: Never Alcohol Use Standard Drinks/Week Comments Not Currently 0 (1 standard drink = 0.6 oz pure alcoho l) Sex Assigned at Date Recorded Female 12/02/2020 1:42 PM CDT COVID-19 Exposure Response Date Recorded In the last month, have you been in contact with No / Unsure 08/09/2020 6:36 AM TWITCHELL OPERATOR someone who was confirmed or suspected to have Coronavirus / COVID-19? documented as of this encounter Plan of Treatment Not on filedocumented as of this encounter Results Dexa hip/pelvis/spine (10/13/2020 2:18 PM TWITCHELL OPERATOR) Anatomical Region Laterality Modality Dexa Bone Mineral Density Specimen (Source) Anatomical Location Collection Method / Collectio n Time Received Time / Laterality Volume Impressions 10/13/2020 2:44 PM TWITCHELL OPERATOR IMPRESSION: Bone mineral density within normal limit [...] BRIGHT ZHENG MD Narrative 10/13/2020 2:44 PM TWITCHELL OPERATOR INDICATION: Scoliosis COMPARISON: None TECHNICAL: The patient was scanned using a [employer], with pediatric software. Age: 20 years 2 [...] TECHNICAL: The patient was scanned using a [employer], with pediatric software. 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 [address] Provider [place], [place] [id number] Eugenio Finney Assigned Pediatric 06/19/2005/07 MD David Specialist Provider [address] [place] [address] 96 [place], [place] [address] documented as of this encounter
--- OUTSIDE RECORDS SUMMARY | 2022-06-18 11:59 | XMS_ITS | Encounter Summary ---
:2001 Author Organization [place] Address [address] [place] [address] Care Team Providers Name Role Phone Julain Spencer MD Unavailable Mariposa Atwood MD Unavailable [phone] Julian Spencer MD Unavailable Eugenio Finney MD Unavailable [phone] oJsh Carrero Primary Care Provider Reason for Visit Reason Onset Date Comments Call Back 08/12/2020 clarify Clinic Care Coordination - Follow-up 08/12/2020 Encounter Details Date Type Department Care Team Description 08/12/2020 Telephone [facility] Julian Spencer Call Back (clarify ); Orthopedic Clinic MD [facility] Care Coordination [address] - Follow-up [address] [place] [address] [address] [place] [phone] Social History Tobacco Use Types Packs/Day Years Used Date Smoking Tobacco: Never Smokeless Tobacco: Never Alcohol Use Standard Drinks/Week Comments Not Currently 0 (1 standard drink = 0.6 oz pure alcoho l) Sex Assigned at Date Recorded Female 12/02/2020 1:42 PM CDT COVID-19 Exposure Response Date Recorded In the last month, have you been in contact with No / Unsure 08/09/2020 6:36 AM VMWARE ARCHITECT someone who was confirmed or suspected to have Coronavirus / COVID-19? documented as of this encounter Miscellaneous Notes Telephone Encounter - Sabina Asif RN - 08/16/2020 9:55 PM CST Dakota was phoned by RN regarding the referral from Dr Spencer for her to see Dr Esposito. Pt was called and it was explained that Dr Esposito can see Dakota at [facility] since he is ending his [facility]. Pt's mother was also on the line and said they had the number for [place]. They were encouraged to call [place] for an appointment with Dr Esposito. Peggy Yun RN RE ARCHITECT Telephone Encounter - Aleksandr Baron - 08/12/2020 11:29 AM CST Health Call Center Phone Message May a detailed message be left on voicemail: yes Reason for Call: Other: pt's mom needs to clarify if she see's D[facility]arru[facility] or not Action Taken: Message routed to: [facility] ortho Travel Screening: Not Applicable Johanna referred pt to [facility] and pt's mom says they were told Vaibhav and Johanna spoke last night and wanted pt to follow up with [facility] in the next few weeks. ; However Previous TE from [facility] in [facility] said [facility] is not being scheduled with new patient alexandra and they cannot see him -- I gave pt's mom Zofia's contact incase she needs to schedule over there -- mom would liked Johanna's team to call back and confirm whether this is true or there was miscommunication Please call back to discuss RE ARCHITECT documented in this encounter Plan of Treatment Not on filedocumented as of this encounter Visit Diagnoses Not on filedocumented in this encounter Care Teams Vp Talent Management Relationship Specialty Start Date End Date Josh Carrero PCP - General Family Medicine 08/09/[address] [address] Julian Spencer MD MD Orthopedics 03/08/[address] [place] [address] Mariposa Atwood Assigned PCP 04/29/20 11/12/20 MD Nettie [address] [facility] [place] [address] Julian Spencer MD Assigned Musculoskeletal 05/27/[address] [place] [address] Eugenio Finney Assigned Pediatric 06/19/2005/07 MD David Specialist Provider [address] [facility] [address] [place], [place] [phone] documented as of this encounter
--- OUTSIDE RECORDS SUMMARY | 2022-06-18 11:59 | XMS_ITS | Encounter Summary ---
:2001 Author Organization [place] Address [address] [place] [address] Care Team Providers Name Role Phone Julian Spencer MD Unavailable Mariposa Atwood MD Unavailable [phone] Julian Spencer MD Unavailable Eugenio Finney MD Unavailable [phone] Josh Carrero Primary Care Provider Reason for Referral Consultation (Routine) - Closed Specialty Diagnoses / Procedures Referred By Contact Refer red To Contact Diagnoses Other secondary scoliosis, thoracolumbar region Painful orthopaedic hardware (H) Transitional vertebra Tethered cord (H) History of fusion of spine for scoliosis Acquired von Willebrand disease Leg length discrepancy [facility] [address] [place] [phone] Referral ID Status Reason Start Date Expiration Date Visits Requ ested Visits Authorized [id number] Closed 08/11/2020 08/11/2021 1 1 S Reason for Visit Reason Onset Date Comments Clinic Care Coordination - Follow-up 08/11/2020 Encounter Details Date Type Department Care Team Description [facility] Clinic [phone] - Follow-u [facility] (Work) [address] [place] [address] [place] [address] Social History Tobacco Use Types [...] with No / Unsure 08/09/2020 6:36 AM GRIPS someone who was confirmed or suspected to have Coronavirus / COVID-19? documented as of this encounter Miscellaneous Notes Telephone Encounter - Sabina Asif RN - 08/11/2020 8:34 PM CST Postop Spine surgery 08-09-20. reviewed her case & XRs with Provider Marii Villeda in clinic today & ordered consult with DR.Mark Esposito about Leg length Discrepancy. Order placed. I called Mom & reviewed with her & she agreed & will call [phone] to schedule. Call back prn. Mom agreed. V.O.R.B./Sabina Asif RN. S documented in this encounter Plan of Treatment Scheduled Referrals Name Type Priority Associated Diagnoses Order S chedule Orthopedic & Spine Referral Routine Other secondary Expect ed: Insurance Healthcare Consultant Referral scoliosis, thoracolumb ar 08/11/2020, Expires: region 08/11/2021 Painful orthopaedic hardware (H) Transitional betzaida tebra Tethered cord (H ) History of fusion of spine for scolio sis Acquired von Willebrand disease (H) Leg length discrepancy documented as of this encounter Visit Diagnoses Diagnosis Other secondary scoliosis, thoracolumbar region - Primary Painful orthopaedic hardware (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 History of fusion of spine for scoliosis Acquired von Willebrand disease Von Willebrand's disease Leg length discrepancy Unequal leg length (acquired) documented in this encounter Care Teams Senior Adults Director Relationship Specialty Start Date End Date Josh Carrero PCP - General Family Medicine 08/09/[address] [place] [address] Julian Spencer MD MD Orthopedics 03/08/[address] [place], [place] [address] Mariposa Atwood Assigned PCP 04/29/20 11/12/20 MD Nettie [address] [place], [place] [phone] Julian Spencer MD Assigned Musculoskeletal 05/27/[address] Provider [place], [place] [phone] Eugenio Finney Assigned Pediatric 06/19/2005/07 MD David Specialist Provider [address] [facility] [address] [place], [place] [address] documented as of this encounter
--- OUTSIDE RECORDS SUMMARY | 2022-06-18 11:59 | XMS_ITS | Encounter Summary ---
:2001 Author Organization [place] Address [facility]0 [facility] [place] [address] Care Team Providers Name Role Phone Catina Ha MD Unavailable Mariposa Atwood MD Unavailable [phone] Catina Ha MD Unavailable Eugenio Finney MD Unavailable [phone] oJsh Carrero Primary Care Provider Reason for Referral Rehab Therapy Physical Therapy (Routine) - Closed Specialty Diagnoses / Procedures Referred By Contact Refer red To Contact Diagnoses Neuromuscular scoliosis of thoracolumbar region Douglas Gonzalez MD [facility] [address] [address] Referral ID Status Reason Start Date Expiration Date Visits Requ ested Visits Authorized [id number] Closed 08/15/2020 08/15/2021 1 1 Scheduling Instructions Please schedule with Sommer Jeong or Nubia Beltran for Pain PT. Thank you! -Lisa (PACCT) HOLOGY DEPARTMENT CHAIR Reason for Visit Auth/Cert Specialty Diagnoses / Procedures Referred By Contact Refer red To Contact Surgery Diagnoses Scoliosis Painful orthopaedic hardware (H) Scoliosis [M41.9] Painful orthopaedic hardware (H) [T84.84XA] Ur Periop Procedures ZZC EXPLORATION OF SPINAL FUSION ZZC REMOVE SPINE FIX DEV,NEW ZZC REMOVE SPINE FIX DEV,POST SGMTAL ZZC REMOVE SPINE FIX DEV,ANTERIOR Removal of Segmental Instrumentation Thoracic 3 - Lumbar 4 [address] [place] [address] Phone: Fax: Referral ID Status Reason Start Date Expiration Date Visits Requ ested Visits Authorized [id number] 1 1 Encounter Details Date Type Department Care Team Description 08/09/2020 - [facility] Catina Ha MD [address] [place], [place] [id number] Neuromuscular scoliosis of thoracolumbar region (Primary Dx); 08/16/2020 Encounter [facility] Pediatric MiahEleanor MD [address] [facility] [address] [facility] [address] [place], [place] [id number] Scoliosis; Medical Surgical Jaiden Bonilla MD [address] [facility] [address] [place] [address] Painful orthopaedic hardware (H); [address] [place] [address] [place] [address] [address] [place], [place] [phone] Scoliosis; [address] [facility] Painful orthopaedic hardware (H); [place], [place] Acute post-oper ative pain; [address] Chronic musculoskeletal pain ; [phone] Chronic pain sy ndrome; Platelet disord er (H) Social History Tobacco [...] with No / Unsure 08/09/2020 6:36 AM PSYCHOLOGY DEPARTMENT CHAIR someone who was confirmed or suspected to have Coronavirus / COVID-19? documented as of this encounter Last Filed Vital Signs Vital Sign Reading Time Taken Comments Blood Pressure 113/69 08/16/2020 8:42 AM PSYCHOLOGY DEPARTMENT CHAIR Pulse 88 08/16/2020 8:42 AM PSYCHOLOGY DEPARTMENT CHAIR Temperature 36.8 ??C (98.3 ??F) 08/16/2020 8:42 AM PSYCHOLOGY DEPARTMENT CHAIR Respiratory Rate 20 08/16/2020 8:42 AM PSYCHOLOGY DEPARTMENT CHAIR Oxygen Saturation 100% 08/16/2020 8:42 AM PSYCHOLOGY DEPARTMENT CHAIR Inhaled Oxygen Concentration - - Weight 54.7 kg (120 lb 9.5 oz) 08/09/2020 6:50 AM PSYCHOLOGY DEPARTMENT CHAIR Height 160 cm (5' 3) 08/09/2020 6:50 AM PSYCHOLOGY DEPARTMENT CHAIR Body Mass Index 21.36 08/09/2020 6:50 AM PSYCHOLOGY DEPARTMENT CHAIR documented in this encounter Discharge Summaries Darian Nguyen MD - 08/16/2020 1:36 PM CST [facility]?? Discharge Summary Pediatrics General Date of Admission: 08/09/2020 Date of Discharge: 08/16/2020 1:36 PM Discharging Provider: Dr. Nguyen Discharging service: Pediatric Hospital Medicine Discharge Diagnoses Patient Active Problem List Diagnosis ??? Neuromuscular scoliosis of thoracolumbar region ??? Tethered cord s/p release ??? Indwelling orthopaedic hardware ??? Acute post-operative pain ??? POTS syndrome ??? Chronic musculoskeletal pain History of Present Illness Dakota Casiano is a 20 year old female with a history of tethered cord s/p release, scoliosis s/p posterior spinal fusion (01/2016, POTS, chronic complex pain syndrome and complex platelet disorder, presented following a planned procedure with Dr. Ha to remove her spinal instrumentation due to severepain and concern for metal hypersensitivity. Dakota has had a total of 9-10 ortho surgeries per mom. Dakota had 1.5 years between two previous spinal fusions where she also reportedly hadn't healed well. Her last spinal fusion was in February 2019. Up until then she was seeing Dr. Ferrari at [facility] for pain. However, Dakota was very frustrated with her care and did not feel supported or heard. Mom says she was told that the pain was all in her headand was given gabapentin for 3 years without any improvement. Dakota has continued to have severe pain leading up to this surgery; her PCP prescribed norco and flexeril (with Dr. Ha's approval) in order to get her to surgery. Hospital Course Dakota Casiano was admitted to the PICU on POD#0 from her spinal fusion revision surgery with Dr. Ha on 08/09/2020. She required PICU level monitoring during lidocaine infusion due to risk of lidocaine toxicity/arrhythmia. Subsequently, she was transferred to the floor on 08/12/20. 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 Orthopedic surgery followed closely throughout admission. See Op note by Dr. Catina Ha on 08/09/20 for complete details of her surgery. The new instrumentation is all made out of titanium, which has the lowest metal sensitivity compared to all other metals used for instrumentation. Physician- directed use of rhBMP-2 (growth factor) used along with allograft bone for pseudoarthrosis repair. An 08/12-inchHemovac drain inserted intra-op was removed by Ortho on 08/11/20. No significant drainage or hemorrhage from incision site. Due to use of rhBMP-2 and its theoretical teratogenic effects, it is strongly recommended that John become for at least 1 year post-op. Her HCG prior to surgery was negative, and she was continued on her GENERATOR WORKER OCP (norethindrone-ethinyl estradiol). Poor bone healing: Endocrinology (Dr. Inga Dolan) was consulted to help better understand Dakota's bone healing problems. A bone survey was conducted on 08/12 to eval for other areas of bony abnormality other than in the spine, and showed no other obvious areas of abnormality (see read below under procedures). Of note: Per Dr. Dolan's 08/09/20 note, Dakota should have bone turn over labs 3 months post op (osteocalcin, alkaline phosphatase (bone specific isoenzymes), N-terminal and C- terminal telopeptides of type 1 collagen, PTH, calcium, phos, magnesium. Please schedule a DXA scan at the same time.) She should also schedule an appointment with Dr. Brayden Price in pediatric bone clinic about 2 weeks after bone study la bs drawn. Post-op and chronic complex pain syndrome: lidocaine drip was continued through POD#2, without any sign of lidocaine infusion toxicity. Initially she was on morphine infusion but this inadequately controlled her back pain and caused over-sedation and nausea. PACCT (Dr. Douglas Gonzalez) was consulted to establish relationship with Dakota and her mom, and to guide analgesia/anxiolysis for Dakota's complex pain syndrome. Per Dr. Gonzalez's recommendations, on POD#2 Dakota was started on low dose ketamineinfusion, fenanyl ENROBER TENDER pump without a basal rate, lyrica (pregabalin), and olanzepine. She was also on scheduled valium for muscle relaxation and scheduled tylenol, Under this regimen her pain was much better managed and she was able to start PT and walking around the unit on POD#2. Transferred to the general pediatric floor on 08/12/20. The fentanyl ENROBER TENDER did not help her pain and she was transitioned toNORCO briefly but this was discontinued due to toxicity profile and short duration of action of hydrocodone effects. She was then commenced on oral oxycodone and her pregabalin dose was increased. Of note, dilaudid should be avoided in all forms in the future. Side effects include confusion and delirium. Nausea, constipation: Advanced to regular diet slowly initially due to nausea. IVF titrated to maintain appropriate hydration. Developed constipation due to post-op ileus and opiate analgesia. Bowel regimen included BID senna, BID miralax, milk of magnesia. Antiemetics included scopolamine patch for first 72 hours, zofran, and olanzepine at bedtime. She was discharged home with PRN Miralax. Her nausea was well controlled prior to discharge. Platelet disorder: Due to Dakota's hematologic history (please see Dr. Mariposa Atwood's excellent note from 08/08/20), Hematology was consulted and followed along throughout admission. Standard high-dose tranexamic acid was started on 08/09/20 and she completed a [address] Gerry Cruz from Hematology was present [facility]'s 08/09/20 surgery to monitor her TXA infusion and labs. Dakota tolerated the procedure well with 330 mL blood loss (she received ~120 back via Cell Saver). Coags and TEG levels monitored daily. Dakota did not have any bleeding or need for transfusions. DVT prophylaxis with SCDs. She was discharged home with PRN tranexamic acid for persistent bleeding, per Dr. Cruz. Dakota remained stable from a respiratory, renal, and cardiovascular stand point. She did not requireany respiratory support, vasopressor/antihypertensives. No signs of infection throughout admission. Ed Bartholomew MD PGY-1, Pediatrics Pager: [phone] Attestation: This patient has been seen and evaluated by me today, and management was discussed with the residentphysicians and nurses. I have reviewed today's vital signs, medications, labs and imaging (as pertinent). I agree with all the findings and plan in this note. Total time: >30 minutes; More than 50% of my time was spent in direct, [id number] counseling with this patient/parent on the issues listed in the assessment/plan section above. Darian Nguyen MD, Pediatric Hospitalist, Pager: [phone] Significant Results and Procedures 08/09/20: Reinsert Segmental Instrumentation Thoracic 4 - Lumbar 4, pseudarthrosis repair four sites, image guided surgery, Scar Revision, Skin Biopsy Surgeon: Surgeon(s) and Role: * Catina Ha MD - Primary * Azar Cruz MD - Assisting * Victor Hugo Talbot MD - Assisting Anesthesia: General Estimated blood loss: 330cc + 123cc returned via CellSaver Drains: Hemovac 08/09/20: Pathology - Spinal surgery scar biopsy sample sent per Dr. Mariposa Atwood's request for possible fibroblastic cultures for genetic analysis to try to better understand her bleeding disorder. 08/12/20: XR BONE SURVEY COMPLETE PEDS, XR THORACIC LUMBAR STANDING 2 VW HISTORY: Eval for osteopenia/other bony abnormalities other than spine. ?? TECHNIQUE: Bone survey including: AP lateral skull, lateral C-spine, supine abdomen and pelvis, AP and lateral lateral thoracic and lumbar spine, oblique ribs, AP left and right humerus, AP left right femur, AP left and right forearm, AP left and right tibia/fibula, AP left hand, AP left and right feet. ?? COMPARISON: Spine x-rays in the past. ?? FINDINGS: There are spinal rods in the thoracolumbar spine which are unchanged in appearance from the prior examination. No evidence of loosening. ?? Bones are fused. Lengths appear normal. No lucent or sclerotic lesion identified. Bony alignment is normal. No osteopenia identified. ?? IMPRESSION: No change status post thoracolumbar fixation. No other bony abnormality identified. ?? PREET DIAZ MD Immunization History Immunization Status: up to date and documented Primary Care Physician Josh Carrero Physical Exam Vital Signs with Ranges Temp: [98.3 ??F (36.8 ??C)-99 ??F (37.2 ??C)] 98.3 ??F (36.8 ??C) Pulse: [79-98] 88 Resp: [16-20] 20 BP: (80-113)/(46-69) 113/69 SpO2: [97 %-100 %] 100 % I/O last 3 completed shifts: In: 2395 [P.O.:2395] Out: - Constitutional: awake, alert, cooperative, no apparent distress, and appears stated age Skin: No visualized rash or lesions. Respiratory: No increased work of breathing, good air exchange, clear to auscultation bilaterally, no crackles or wheezing Cardiovascular: normal S1 and S2, no murmur appreciated GI: Soft, non-distended, non-tender Neurologic: Awake, alert, oriented to name, place and time. Cranial nerves II- XII are grossly intact. MSK: Well healing spinal incision Discharge Disposition Discharged to home Condition at discharge: Stable Consultations This Hospital Stay OCCUPATIONAL THERAPY PEDS IP CONSULT PHYSICAL THERAPY PEDS IP CONSULT PEDS HEM/ONC IP CONSULT PEDS ENDOCRINOLOGY IP CONSULT MEDICATION HISTORY IP PHARMACY CONSULT PEDS PACCT (PAIN AND ADVANCED/COMPLEX CARE TEAM) IP CONSULT PEDS INTEGRATIVE HEALTH IP CONSULT PEDS INTEGRATIVE HEALTH IP CONSULT OCCUPATIONAL THERAPY PEDS IP CONSULT PHYSICAL THERAPY PEDS IP CONSULT Discharge Orders DX Hip/Pelvis/Spine Osteocalcin Bone specific alk phosphatase Parathyroid Hormone Intact Calcium Phosphorus Magnesium C Telopeptide Serum ([facility]) N telopeptide cross linked urine PHYSICAL THERAPY REFERRAL Reason for your hospital stay Dakota was admitted for removal of her spinal hardware. When to contact your care team Call your primary doctor if you have any of the following: increased pain. Activity Your activity upon discharge: Up with assist until independent. No excessive bending or twisting. No lifting >10 lbs x 6 weeks. Adult [facility] Follow-up and recommended labs and tests Follow up with Dr. Ha on 09/22/20 at 8:30am. Follow up with Dr. Gonzalez in pain clinic. You will be contacted to set up this appointment. Please obtain labs in 3 months time. 2 weeks after these labs are drawn, follow up with Dr. Brayden Price in Pediatric Bone Clinic. The hematology team will contact you to arrange a follow up plan. We recommend you follow up with your primary care physician within 7-10 days. Appointments on [facility] and/or [facility] (with [facility] or [facility] provider or service). Call [phone] if you haven't heard regarding these appointments within 7 days of discharge. Diet Follow this diet upon discharge: Regular Discharge Medications Discharge Medication List as of 08/16/2020 12:13 PM START taking these medications Details acetaminophen (TYLENOL) 500 MG tablet Take 1000 mg every six hours for 2 days after discharge, then as needed (every six hours) after that., No Print Out diazepam (VALIUM) 2 MG tablet Take 1 tablet (2 mg) by mouth every 6 hours as needed for anxiety, Disp-30 tablet, R-0, E-Prescribe Lidocaine (LIDOCARE) 4 % Patch Place 1-2 patches on skin over painful area. Leave on for 12 hours, then keep off for 12 hours. Repeat daily.Disp-30 patch, [id number] naloxone (NARCAN) 4 MG/0.1ML nasal spray [place] 1 spray (4 mg) into one nostril alternating nostrils as needed for opioid reversal every 2-3 minutes until assistance arrives, Disp-0.2 mL, R-0, E-Prescribe polyethylene glycol (MIRALAX) 17 GM/Dose powder Take 17 g by mouth daily, Disp- 510 g, R-11, E-Prescribe pregabalin (LYRICA) 150 MG capsule Take 1 capsule (150 mg) by mouth 2 times daily, Disp-60 capsule, R-3, E-Prescribe tranexamic acid (LYSTEDA) 650 MG tablet Take 1.5 tablets every six hours as needed for persistent bleeding., Disp-15 tablet, R-0, E-Prescribe CONTINUE these medications which have CHANGED Details oxyCODONE (ROXICODONE) 10 MG tablet Take 0.5-1 tablets (5-10 mg) by mouth every 4 hours as needed for moderate to severe pain, Disp-15 tablet, R-0, Local Print CONTINUE these medications which have NOT CHANGED Details cholecalciferol (VITAMIN D3) 125 mcg (5000 units) capsule Take by mouth daily, Historical Norethindrone Acet-Ethinyl Est (LOESTRIN , PO) Take by mouth daily, Historical sertraline (ZOLOFT) 100 MG tablet Take 100 mg by mouth daily, Historical STOP taking these medications cyclobenzaprine (FLEXERIL) 5 MG tablet Comments: Reason for Stopping: HYDROcodone-acetaminophen (NORCO) 5-325 MG tablet Comments: Reason for Stopping: Allergies Allergies Allergen Reactions ??? Dust Mites Itching Other reaction(s): Itching,Watering Eyes ??? Hydromorphone Other (See Comments) All forms (enteral and IV) cause confusion, delirium, aggression. Avoid. Data Most Recent 3 CBC's: Recent Labs Lab Test 08/15/20 0846 08/14/20 0707 08/13/20 1511 WBC 5.6 6.5 7.0 HGB 9.3* 9.1* 9.9* MCV 94 94 96 PLT 274 242 238 Most Recent 3 BMP's: Recent Labs Lab Test 08/13/20 0649 08/09/20 1345 08/09/20 0950 NA 142 139 138 POTASSIUM 3.3* 3.7 3.5 CHLORIDE 109 106 -- CO2 27 25 -- BUN 6* 12 -- CR 0.52 0.66 -- ANIONGAP 6 8 -- IMELDA 8.3* 7.9* -- GLC 88 164* 149* Most Recent 2 LFT's:No lab results found. Most Recent INR's and Anticoagulation Dosing History: Anticoagulation Dose History Recent Dosing and Labs Latest Ref Rng & Units 08/11/2020 08/11/2020 08/11/2020 08/12/2020 08/13/2020 08/14/2020 08/15/2020 INR 0.86 - 1.14 1.27(H) 1.24(H) 1.21(H) 0.99 1.05 0.98 1.05 Factor 2 60 - 140 % - - - - - - - Most Recent 3 Troponin's:No lab results found. Most Recent Cholesterol Panel:No lab results found. Most Recent 6 Bacteria Isolates From Any Culture (See EPIC Reports for Culture Details):No lab results found. Most Recent TSH, T4 and A1c Labs: Recent Labs Lab Test 06/20/20 0840 TSH 3.01 HOLOGY DEPARTMENT CHAIR documented in this encounter Discharge Instructions Discharge InstructionsYuniel Kilgore MD - 08/15/2020 9:03 PM CST 1. Please schedule the following bone turnover labs for 3 months from now (we have to wait because she just had surgery): osteocalcin, alkaline phosphatase (bone specific isoenzymes), N-terminal and C-terminal telopeptides of type 1 collagen, PTH, calcium, phos, magnesium. Please schedule a DXA scan at the same time. ?? 2. Please schedule an appointment with Dr. Brayden Price in pediatric bone clinic about 2 weeks after the labs are drawn in 3 months time ?? HOLOGY DEPARTMENT CHAIR documented in this encounter Medications at Time [...] 12 hours. Repeat daily. naloxone (NARCAN) 4 [place] 1 spray (4 mg) 0.2 mL 0 [...] pain needed for moderate to severe pain polyethylene glycol Take 17 g by [...] tablet daily documented as of this encounter Progress Notes Victor Hugo Talbot MD - 08/16/2020 6:17 AM CST Orthopaedic Surgery Progress Note: 08/16/2020 Subjective: No acute events overnight. Episode of pain yesterday evening, but they were able to calm it down. Doing well this AM. Pain was primarily in the lower back and around her sides. Showered. Objective: BP 92/50 Pulse 79 Temp 98.3 ??F (36.8 ??C) (Oral) Resp 18 Ht 1.6 m (5' 3) Wt 54.7 kg (120lb 9.5 oz) SpO2 100% BMI 21.36 kg/m?? I/O this shift: In: 240 [P.O.:240] Out: - Gen: NAD. Resting comfortably in bed. Resp: Breathing comfortably on RA. Drain: Superficial drain: removed 08/11. Musculoskeletal: dressing c/d/i. Small area of strike through at cephalad end of incision, stable. Dressing taken down today, image of incision in media. Sensation from C4-L1 is preserved. Lower extremities: Motor Strength Right Left Hip flexion: L1, L2, L3 5/5 5/5 Hip adduction: L2, L3 5/5 5/5 Knee flexion: S1 5/5 5/5 Knee extension: L3, L4 5/5 5/5 Ankle dosiflexion: L4, L5 5/5 5/5 EHL: L5 5/5 5/5 Ankle plantarflexion: S1 5/5 5/5 Sensation from L1-S2 is preserved. Abdomen is soft and non-tender. Labs: Lab Results Component Value Date WBC 5.6 08/15/2020 HGB 9.3 (L) 08/15/2020 PLT 274 08/15/2020 INR 1.05 08/15/2020 Assessment & Plan: Dakota Casiano is a 20 year old female with PMH including scoliosis s/p multiple surgies, presented with pseudarthrosis and a possible unknown bleeding disorder now s/p reinsertion of spinal instrumentation on 08/09/[address] Ha. Readying for discharge. Goals for today: - Ok to discharge from Orthopedics perspective, if cleared by Pediatrics team Pediatrics Primary Activity: Up with assist until independent. No excessive bending or twisting. No lifting >10 lbs x 6 weeks. Julianne lift approved for transfers. Keep back straight if using lift. Weight bearing status: WBAT. Pain management: Transition from IV to PO as tolerated. No NSAIDs. Lidocaine patches and menthol patches. Antibiotics: Ancef x24hrs postop - completed Diet: Regular diet. Supplement calcium + vitamin D. DVT prophylaxis: SCDs only. No chemical DVT ppx needed. Hematology following. Imaging: XR Upright - obtained 08/12/20. Will likely need shoe lift, will address at outpatient followup. Labs: labs per primary team. Bracing/Splinting: None. Dressings: Removed today. Leave open to air. Ok to shower and get wet. No scrubbing of incision. Patdry. Please discharge with some gauze and tape to protect the inferior portion of the incision from her belt line. Drains: Removed 08/11. Cortez catheter: Voiding w/o Cortez Physical Therapy/Occupational Therapy: Eval and treat. Consults: Orthopedics, Hematology, Endocrinology. Follow-up: Clinic with Dr. Ha in 6 weeks with repeat x-rays. Disposition: Ok to discharge from Orthopedics perspective, if cleared by Pediatrics team. Orthopaedics surgery staff for this patient is Dr. Ha. [ x ] Drain removed. [ x ] Post xrays done. Victor Hugo Talbot MD PGY5 Pager: [phone] FOLLOWUP: Future Appointments Date Time Provider Department Center 09/22/2020 8:30 AM Catina Ha MD [facility] 10/27/2020 2:30 PM Catina Ha MD [facility] HOLOGY DEPARTMENT CHAIR Azar Cruz MD - 08/15/2020 10:57 PM CST [facility]?? Inpatient Progress Note - Hematology Date of Visit: 08/15/2020 Date of Admission: 08/09/2020 Consult Requested by: Eleanor Dooley MD, PICU Reason for Consult: Hemostasis management recommendations in the setting of suspected bleeding disorder Assessment & Plan Dakota Casiano is a 20 year old female admitted on 08/09/2020. She has a history of tethered cord and severe scoliosis s/p multiple repairs but after one of the procedures in January 2016, she had significantunexpected blood loss that has led, over the last 4+ years, to a bleeding disorder workup for which the diagnosis remains elusive. She had mild platelet dysfunction on an aggregation study, with a second mildly abnormal wave in response to epinephrine 3 months ago. While this finding and her symptoms were consistent with the rare [place] platelet disorder, genetic testing was not consistent with the known genetics of that diagnosis. 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 I was present during the full procedure to help monitor hemostasis using clinical course and lab outcomes combined with an infusion of tranexamic acid, all of which went well. She was subsequently extubated and transferred to the PICU where she was recovering until today, at which point she is moving to the floor. The drain is now out. Recommendations -Ok to discontinue scheduled TXA at the time of discharge as it has been 7 days, but she should be Rx 1 gram TXA q6h PRN persistent bleeding at home. - No labs needed in AM. Agree with discharge per primary team -We will determine outpatient heme follow up and will contact family. Azar Cruz MD Pediatric Guest Associate Division of Pediatric Hematology/Oncology [facility] Pager: [facility]?? Interval History Dakota is feeling much better. Eating and drinking well and able to move around with less pain and less orthostasis. No bleeding reported. Continuing Loestrin. She is tolerating TXA (mom said TXA has worked better than Amicar did during past visits). Labs reassuring. Plan is for discharge tomorrow History of Present Illness Dakota Casiano is a 20 year old female with a long history of severe scoliosis who has undergone several procedures for repair. She was undergoing hardware removal today due to significant pain issues. During the last 5 years with multiple procedures, she has had a significant multi-site hematology workup because back in January 2016, when she underwent spinal decortication after tethered cord repair at an outside hospital, she had a significant blood loss that was unexpected given the procedure. She wasgiven pRBC and platelets during that event with little improvement. This event has precipitated workup at [facility], [place], and [facility] where she was found to have an ill-defined platelet defect, though genetics have been unrevealing to date. Interestingly, she has gone spinal repairs and hardware manipulation before and after that difficult procedure, both with and without antifibrinolytics being used. These events paint a puzzling picture of what triggered her major bleeding episode, and most of her hemostasis testing has been normal, but aggregometry shows a mildly abnormal response to epinephrine which up until a week or two ago was thought to possibly be [place] platelet disorder (targeted genetictesting was negative). She has been healthy recently but has had lots of back pain. It has been considered to be due to the hardware, potentially as a hypersensitivity, so she underwent the procedure to day to see if this would improve her pain. 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 Her bleeding history and surgical course have been extensively documented by Dr. Mariposa Atwood on 08/08/2020 and thus will not be re-copied here. Past Medical History I have reviewed this patient's medical history and updated it with pertinent information if needed. Past Medical History: Diagnosis Date ??? PONV (postoperative nausea and vomiting) ??? Scoliosis Tethered cord, now repaired Significant bleeding event during a prior spine surgery January 2016 Suspected primary hemostasis/platelet disorder, not yet defined. Past Surgical History Several spinal surgeries in the past Social History I have reviewed this patient's social history and updated it with pertinent information if needed. Social History Tobacco Use ??? Smoking status: Never Smoker ??? Smokeless tobacco: Never Used Substance Use Topics ??? Alcohol use: Not Currently ??? Drug use: Not Currently Family History I have reviewed this patient's family history and updated it with pertinent information if needed. (copied from her primary state comptroller's recent note Aug 2020) Dad with nosebleeds, but no surgeries (orphaned so no other history) Mom with heavy periods, no bruising, no issues with surger Maternal Aunt with Type IIa vWD from [facility] records Medications Medications Prior to Admission Medication Sig Dispense Refill Last Dose ??? cholecalciferol (VITAMIN D3) 125 mcg (5000 units) capsule Take by mouth daily 08/08/2020 at Unknown time ??? Norethindrone Acet-Ethinyl Est (LOESTRIN 08/24, , PO) Take by mouth daily 08/08/2020 at Unknown time ??? sertraline (ZOLOFT) 100 MG tablet Take 100 mg by mouth daily ??? [DISCONTINUED] cyclobenzaprine (FLEXERIL) 5 MG tablet Take 1 tablet by mouth 2 times daily 08/08/2020 at Unknown time ??? [DISCONTINUED] HYDROcodone-acetaminophen (NORCO) 5-325 MG tablet Take 1 tablet by mouth every 6 hours as needed Past Week at Unknown time Allergies Allergies Allergen Reactions ??? Dust Mites Itching Other reaction(s): Itching,Watering Eyes ??? Hydromorphone Other (See Comments) All forms (enteral and IV) cause confusion, delirium, aggression. Avoid. Physical Exam Vital Signs: Temp: 98.6 ??F (37 ??C) Temp src: Oral BP: 108/61 Pulse: 79 Resp: 16 SpO2: 98 % O2 Device: None (Room air) Weight: 120 lbs 9.47 oz Exam: GEN: sitting up in bed, comfortable HEENT: normocephalic, MMM, no epistaxis Resp: regular effort SKIN: bandage on back, no bruising MSK: moving extremities well, normal tone Data Results for orders placed or performed during the hospital encounter of 08/09/20 (from the past 24 hour(s)) CBC with platelets Result Value Ref Range WBC 5.6 4.0 - 11.0 10e9/L RBC Count 3.06 (L) 3.8 - 5.2 10e12/L Hemoglobin 9.3 (L) 11.7 - 15.7 g/dL Hematocrit 28.7 (L) 35.0 - 47.0 % MCV 94 78 - 100 fl MCH 30.4 26.5 - 33.0 pg MCHC 32.4 31.5 - 36.5 g/dL RDW 12.2 10.0 - 15.0 % Platelet Count 274 150 - 450 10e9/L Fibrinogen activity Result Value Ref Range Fibrinogen 685 (H) 200 - 420 mg/dL INR Result Value Ref Range INR 1.05 0.86 - 1.14 Partial thromboplastin time Result Value Ref Range PTT 34 22 - 37 sec TEG without Heparinase Result Value Ref Range R time until clot forms 5.0 5 - 10 Minute K time to spec clot strength 1.1 1 - 3 Minute Angle rate of clot strength 63.3 53 - 72 Degrees MA maximum clot strength 73.6 (H) 50 - 70 mm CI hypercoagulation index 2.4 0.0 - 3.0 Ratio G actual clot strength 13.9 (H) 4.5 - 11.0 Kd/sc LY30 lysis at 30 minutes 2.2 0 - 8 % LY60 lysis at 60 minutes 6.1 0 - 15 % HOLOGY DEPARTMENT CHAIR Janessa Christie CCLS - 08/15/2020 2:21 PM CST 08/15/20 1414 Child Life Location Med/Surg (Unit 6 / Scoliosis) Intervention Initial Assessment;Supportive Check In Preparation Comment Introduced self and child life services to patient and patient's mom. Oriented patient to U6 as this is patient's first admission. Discussed ZTV programming, Endzone and FRC with patient using the family newsletter. Patient interested in participating in ZTV programming and making an appointment in the endzone. Patient social and engaged with this typewriter operator automatic. Provided patient with adult coloring and Phase 10 to normalize hospital environment and promote positive coping. No further CFL needs at this time. Anxiety Low Anxiety Major Change/Loss/Stressor/Fears medical condition, self Techniques to [place] with Loss/Stress/Change family presence; peers; cell phone; social media Special Interests Arts and Crafts Outcomes/Follow Up Continue to Follow/Support;Provided Materials (ZTV craft cabin kit, adult coloring, phase 10) HOLOGY DEPARTMENT CHAIR Estee Braden CNP - 08/15/2020 11:56 AM CST Images from the original note were not included. Pediatric Integrative Medicine Subsequent Consultation Primary Care provider: Josh Carrero Consulting Provider: Rosalind Tavera MD Reason for consultation: I was asked to see this patient for anxiety and [id number] pain. Assessment: Dakota is a 20 year old female patient with a history of tethered cord, scoliosis??s/p spinal fusion,and complex platelet disorder??who is post-op and experiencing nausea and back pain. Plan: 1. Provided education on guided imagery utilizing all senses and introduction to clinical self-hypnosis for patient to utilize when she is experiencing discomfort and back pain. Discussed the importance of practicing this new skill each day to allow her brain and body to access the benefits of this intervention after the repetitive practice. 2. Provided fidget toys per patient request to use as a source of distraction when she is experiencing discomfort and back pain. 3. Discussed with Dr. Gonzalez Dakota, and mother, to follow-up with our team in the [facility].Please have family call [facility] at [phone] to arrange for this appointment. Follow-up: We will continue to support during this admission as is clinically possible. Interim History: Dakota Casiano is a 20 year old female with a history of tethered cord, scoliosis??s/p spinal fusion, and complex platelet disorder??post-op for??planned procedure to remove her??spinal instrumentation due to pain and concern for metal hypersensitivity. 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 She is accompanied at this visit by her mother. Mother reports that Dakota slept very well last night. She denies nausea. She rates her back pain anddiscomfort a 7/10 to the bedside RN. She is interested in hearing about a relaxation strategy to cook helper dessert in supporting her pain medications and decreasing her discomfort and back pain. She is excited about her pending discharge tomorrow and hopes to surprise her boyfriend as it is his birthday tomorrow. She is in good spirits today. Review of systems: The Comprehensive ROS was performed and is negative except as noted below and in the HPI. ALLERGIES: Allergies Allergen Reactions ??? Dust Mites Itching Other reaction(s): Itching,Watering Eyes ??? Hydromorphone Other (See Comments) All forms (enteral and IV) cause confusion, delirium, aggression. Avoid. IMMUNIZATIONS: There is no immunization history on file for this patient. CURRENT MEDICATIONS: Current Facility-Administered Medications Medication ??? bisacodyl (DULCOLAX) Suppository 10 mg ??? calcium carbonate (TUMS) chewable tablet 500 mg ??? cholecalciferol (VITAMIN D3) 125 mcg (5000 units) capsule 125 mcg ??? diazepam (VALIUM) half-tab 2.5 mg ??? hydrOXYzine 25 mg in D5W injection PEDS/NICU ??? Lidocaine (LIDOCARE) 4 % Patch 1 patch ??? lidocaine (LMX4) cream ??? lidocaine 1 % 0.2-0.4 mL ??? lidocaine patch in PLACE ??? naloxone (NARCAN) injection 0.4 mg ??? norethindrone-ethinyl estradiol (MICROGESTIN 08/24) 1-20 MG-MCG per tablet 1 tablet ??? ondansetron (ZOFRAN) injection 4 mg ??? oxyCODONE (ROXICODONE) tablet 5 mg ??? polyethylene glycol (MIRALAX) Packet 17 g ??? polyethylene glycol (MIRALAX) Packet 17 g ??? pregabalin (LYRICA) capsule 125 mg ??? sennosides (SENOKOT) tablet 8.6 mg ??? sertraline (ZOLOFT) tablet 100 mg ??? sodium chloride 0.9% infusion ??? tranexamic acid (LYSTEDA) half-tab 975 mg PAST MEDICAL HISTORY: Active Ambulatory Problems Diagnosis Date Noted ??? 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 Other secondary scoliosis, thoracolumbar region 05/05/2020 ??? Tethered cord (H) 05/05/2020 Resolved Ambulatory Problems Diagnosis Date Noted ??? No Resolved Ambulatory Problems Past Medical History: Diagnosis Date ??? PONV (postoperative nausea and vomiting) ??? Scoliosis PAST SURGICAL HISTORY: Past Surgical History: Procedure Laterality Date ??? EXPLORE SPINE, REMOVE HARDWARE, COMBINED N/A 08/09/2020 Procedure: Reinsert Segmental Instrumentation Thoracic 4 - Lumbar 4, pseudarthrosis repair four sites, image guided surgery, Scar Revision, Skin Biopsy; Surgeon: Catina Ha MD; Location: [facility] OR ??? OPTICAL TRACKING SYSTEM FUSION SPINE POSTERIOR THORACIC CHILD THREE+ LEVELS 08/09/2020 Procedure: Optical tracking system fusion spine posterior thoracic child three+ levels; Surgeon: Catina Ha MD; Location: [facility] OR FAMILY HISTORY: History reviewed. No pertinent family history. SOCIAL HISTORY: Social History Social History Narrative ??? Not on file Physical Exam: Temp: [98.1 ??F (36.7 ??C)-99.6 ??F (37.6 ??C)] 98.1 ??F (36.7 ??C) Pulse: [72-106] 72 Resp: [16-22] 16 BP: (90-119)/(48-76) 108/67 SpO2: [98 %-100 %] 98 % BP 108/67 Pulse 72 Temp 98.1 ??F (36.7 ??C) (Oral) Resp 16 Ht 1.6 m (5' 3) Wt 54.7 kg (120 lb 9.5 oz) SpO2 98% BMI 21.36 kg/m?? Vitals: 08/09/20 0650 Weight: 54.7 kg (120 lb 9.5 oz) @ Wt Readings from Last 3 Encounters: 08/09/20 54.7 kg (120 lb 9.5 oz) (38 %, Z= -0.30)* 07/21/20 54.3 kg (119 lb 9.6 oz) (36 %, Z= -0.35)* 05/05/20 54.3 kg (119 lb 9.6 oz) (37 %, Z= -0.32)* * Growth percentiles are based on CDC (Girls, 2-20 Years) data. Ht Readings from Last 2 Encounters: 08/09/20 1.6 m (5' 3) (31 %, Z= -0.50)* 07/21/20 1.61 m (5' 3.39) (36 %, Z= -0.35)* * Growth percentiles are based on CDC (Girls, 2-20 Years) data. 48 %ile (Z= -0.06) based on CDC (Girls, 2-20 Years) BMI-for-age based on BMI available as of 08/09/2020. GENERAL: Alert, no acute distress. Sitting up in bed. SKIN: No significant rash. HEAD: Normocephalic. EYES: Pupils equal, round, reactive. NOSE: Nares without discharge. MOUTH: MMM LUNGS: Unlabored respirations on room air. EXTREMITIES: Full range of motion, no deformities or visible muscle spasms. NEUROLOGICAL: Normal gait. No tremor. Walked to bathroom during visit without assist. PSYCHOLOGICAL: Appropriate mood. Smiling during visit. Labs and Tests: Results for orders placed or performed during the hospital encounter of 08/09/20 (from the past 24 hour(s)) CBC with platelets Result Value Ref Range WBC 5.6 4.0 - 11.0 10e9/L RBC Count 3.06 (L) 3.8 - 5.2 10e12/L Hemoglobin 9.3 (L) 11.7 - 15.7 g/dL Hematocrit 28.7 (L) 35.0 - 47.0 % MCV 94 78 - 100 fl MCH 30.4 26.5 - 33.0 pg MCHC 32.4 31.5 - 36.5 g/dL RDW 12.2 10.0 - 15.0 % Platelet Count 274 150 - 450 10e9/L Fibrinogen activity Result Value Ref Range Fibrinogen 685 (H) 200 - 420 mg/dL INR Result Value Ref Range INR 1.05 0.86 - 1.14 Partial thromboplastin time Result Value Ref Range PTT 34 22 - 37 sec TEG without Heparinase Result Value Ref Range R time until clot forms 5.0 5 - 10 Minute K time to spec clot strength 1.1 1 - 3 Minute Angle rate of clot strength 63.3 53 - 72 Degrees MA maximum clot strength 73.6 (H) 50 - 70 mm CI hypercoagulation index 2.4 0.0 - 3.0 Ratio G actual clot strength 13.9 (H) 4.5 - 11.0 Kd/sc LY30 lysis at 30 minutes 2.2 0 - 8 % LY60 lysis at 60 minutes 6.1 0 - 15 % Thank you for this consultation. Please do not hesitate to contact me with any questions or concerns. Estee Young, spent a total of 35 minutes [id number] and on the unit today. Over 50% of this time was spent counseling the patient-family regarding strategies for relaxation to help reduce discomfort and back pain and coordinating care with PACCT and bedside RN. Estee Braden, HANNA, CPNP, HNB- Pediatric Nurse Practitioner Pediatric Integrative Health & Wellbeing HOLOGY DEPARTMENT CHAIR Jaiden Bonilla MD - 08/15/2020 7:00 AM CST Images from the original note were not included. Progress note - General Pediatrics Service Date of Admission: Day of Service: 08/15/2020 Physician Attestation Jaiden Young MD, saw this patient with the resident and agree with the resident/fellow's findings and plan of care as documented in the note. I personally reviewed vital signs, medications and labs. Ren findings: Pt feels well, ready to trial oral pain medication. Ambulating, having BM's. Lungs CTA, CV- RRR no M Abdomen - soft, Discussed with PACCT. Likely discharge in 1-2 days. Jaiden Bonilla MD Date of Service (when I saw the patient): 08/15/20 Assessment & Plan Dakota Casiano is a 20 year old female??with a history of tethered cord, scoliosis??s/p spinal fusion,POTS, complex pain, and complex platelet disorder, who is POD#6 s/p??planned procedure to remove her??spinal instrumentation due to pain and concern for metal hypersensitivity. However, intraoperatively she was??found to have four areas of pseudoarthroses??requiring reinstrumentation. She required PICU admission post-op for close??monitoring while on lidocaine infusion, she is being transitioned to oral analgesics in anticipation of discharge home tomorrow and is clinically stable. Today's changes: -Discontinue Ketamine drip -Discontinue fentanyl IV Q2H PRN -Discontinue NORCO -Commence oxycodone 5 mg q4/PRN -Increase Lyrica to 125 mg BID -Continue lidocaine patch Neuro/Ortho Scoliosis POD#6 s/p removal of hardware (segmental spinal instrumentation T3-L4) and pseudoarthrosis repair (day of surgery 08/09/20 -??Valium 2.5 mg PO Q6H for muscle spasm?? - Hold GENERATOR WORKER flexeril 5 mg BID -??neuro checks Q4H - hemovac drain removed on 08/12 - no activity/HOB restrictions ?? *Pain - acute on poorly-controlled chronic pain/anxiety - PACCT consult, appreciate recommendations - Integrative medicine consult for chronic pain - Discontinue Ketamine drip - Discontinue fentanyl IV Q2H PRN - Discontinue NORCO - Commence oxycodone 5 mg q4/PRN - Increase Lyrica to 125 mg BID - Continue lidocaine patch Psych: Anxiety - GENERATOR WORKER sertraline 100 mg daily -??Discontinue IV atarax 25 mg Q6H??PRN - Discontinue Zyprexa at bedtime Heme/onc?? Anemia Complex platelet disorder Similar to [place] platelet disorder but genetic testing not consistent with this diagnosis. - Hematology consulted - Discontinue daily coagulation profile and CBC, INR, PTT, fibrinogen - Discontinue daily TEG w/o heparinase - Fibrinogen goal >150 - if lower may need cryoprecipitate - May need platelet transfusion if active bleeding - Continue 1g TXA PO Q6H -- plan for total 7 days (08/09 8:30am - 8:30am 08/16/20) - ?? FEN/Renal?? - Regular diet as tolerated - IVF TKO -??Monitor I/Os Cardiovascular?? Postural hypotension - Discontinue daily weights - Consider NS bolus for orthostatic hypotension/dizziness during PT or for hypotension GI?? - Senna and Miralax PRN for constipation - Zofran 4 mg IV Q6H/PRN for vomiting ?? Endo?? Unclear platelet disorder s/p significant workup. Given the pseudoarthroses, concern for collagen/bone??disorder. - Endocrinolgy??consulted, appreciate recs - Bone survey on 08/12/20 -??GENERATOR WORKER??OCP -??GENERATOR WORKER vitamin D 125mcg PO daily? Respiratory?? Comfortable on room air Productive cough, no fever, no crackles on exam, possible post op atelectasis -??continuous pulse ox - incentive spirometry ?? Diet:??Advance Diet as Tolerated: Regular diet?? Fluids:??NS DVT Prophylaxis:??Pneumatic Compression Devices Cortez Catheter:??None Code Status:??Full? Disposition Plan Expected discharge:??1-2 days, recommended home following adequate pain management/ tolerating PO medications, clear from orthopedic, hematologic standpoint The patient's care was discussed with the attending physician, Dr. Chad Kilgore MD General Pediatrics Service [facility]?? Interval History No acute events overnight, mom reports that pain was well controlled on NORCO, Vital signs stable. Commencing oral oxycodone and increasing Lyrica and discontinuing NORCO per PACCT recommendations Data reviewed today: I reviewed all medications, new labs and imaging results over the last 24 hours. Physical Exam Vital Signs: Temp: 98.1 ??F (36.7 ??C) Temp src: Oral BP: 108/67 Pulse: 72 Resp: 16 SpO2: 98 % O2 Device: None (Room air) Weight: 120 lbs 9.47 oz Constitutional: awake, alert, cooperative, no apparent distress, and appears stated age Respiratory: No increased work of breathing, good air exchange, clear to auscultation bilaterally, no crackles or wheezing Cardiovascular: normal S1 and S2, no murmur appreciated GI: Soft, non-distended, non-tender Neurologic: Awake, alert, oriented to name, place and time. Cranial nerves II- XII are grossly intact. MSK: Dressing over spine with minimal blood stains HOLOGY DEPARTMENT CHAIR Victor Hugo Talbot MD - 08/15/2020 6:39 AM CST Orthopaedic Surgery Progress Note: 08/15/2020 Subjective: No acute events overnight. Continuing to progress with PT. Working on tapering down pain medications. +BM, voiding. Objective: BP 104/61 Pulse 74 Temp 98.3 ??F (36.8 ??C) (Oral) Resp 20 Ht 1.6 m (5' 3) Wt 54.7 kg (120 lb 9.5 oz) SpO2 98% BMI 21.36 kg/m?? I/O this shift: In: 294 [P.O.:270; I.V.:24] Out: - Gen: NAD. Resting comfortably in bed. Resp: Breathing comfortably on RA. Drain: Superficial drain: removed 08/11. Musculoskeletal: dressing c/d/i. Small area of strike through at cephalad end of incision, stable. Sensation from C4-L1 is preserved. Lower extremities: Motor Strength Right Left Hip flexion: L1, L2, L3 5/5 5/5 Hip adduction: L2, L3 5/5 5/5 Knee flexion: S1 5/5 5/5 Knee extension: L3, L4 5/5 5/5 Ankle dosiflexion: L4, L5 5/5 5/5 EHL: L5 5/5 5/5 Ankle plantarflexion: S1 5/5 5/5 Sensation from L1-S2 is preserved. Abdomen is soft and non-tender. Labs: Lab Results Component Value Date WBC 6.5 08/14/2020 HGB 9.1 (L) 08/14/2020 PLT 242 08/14/2020 INR 0.98 08/14/2020 Assessment & Plan: Dakota Casiano is a 20 year old female with PMH including scoliosis s/p multiple surgies, presented with pseudarthrosis and a possible unknown bleeding disorder now s/p reinsertion of spinal instrumentation on 08/09/[address] Ha. Postoperative pain has slowed postoperative progression. Goals for today: - Continue to work with PT - Taper off IV pain medications Pediatrics Primary Activity: Up with assist until independent. No excessive bending or twisting. No lifting >10 lbs x 6 weeks. Julianne lift approved for transfers. Keep back straight if using lift. Weight bearing status: WBAT. Pain management: Transition from IV to PO as tolerated. No NSAIDs. Lidocaine patches and menthol patches. Antibiotics: Ancef x24hrs postop - completed Diet: Begin with clear fluids and progress diet as tolerated. Supplement calcium + vitamin D. DVT prophylaxis: SCDs only. No chemical DVT ppx needed. Hematology following. Imaging: XR Upright - obtained 08/12/20. Will likely need shoe lift, will address at outpatient followup. Labs: labs per primary team. Bracing/Splinting: None. Dressings: Keep dressing c/d/i x 7 days. Drains: Removed 08/11. Cortez catheter: Voiding w/o Cortez Physical Therapy/Occupational Therapy: Eval and treat. Consults: Orthopedics, Hematology, Endocrinology. Follow-up: Clinic with Dr. Ha in 6 weeks with repeat x-rays. Disposition: Pending progress with pain control on orals. Orthopaedics surgery staff for this patient is Dr. Ha. [ x ] Drain removed. [ x ] Post xrays done. Victor Hugo Talbot MD PGY5 Pager: [phone] FOLLOWUP: Future Appointments Date Time Provider Department Center 09/22/2020 8:30 AM Catina Ha MD [facility] 10/27/2020 2:30 PM Catina Ha MD [facility] HOLOGY DEPARTMENT CHAIR Estee Dick MD - 08/14/2020 7:28 AM CST Orthopaedic Surgery Progress Note: 08/14/2020 Subjective: No acute events overnight. Continuing to progress with PT; was able to do stairs yesterday. Headachethis morning and ongoing soreness in her back. Voiding, +BM. Objective: BP 101/56 Pulse 90 Temp 99.4 ??F (37.4 ??C) (Oral) Resp 16 Ht 1.6 m (5' 3) Wt 54.7 kg (120 lb 9.5 oz) SpO2 96% BMI 21.36 kg/m?? No intake/output data recorded. Gen: NAD. Resting comfortably in bed. Resp: Breathing comfortably on RA. Drain: Superficial drain: removed 08/11. Musculoskeletal: dressing c/d/i. Small area of strike through at cephalad end of incision, stable. Sensation from C4-L1 is preserved. Lower extremities: Motor Strength Right Left Hip flexion: L1, L2, L3 5/5 5/5 Hip adduction: L2, L3 5/5 5/5 Knee flexion: S1 5/5 5/5 Knee extension: L3, L4 5/5 5/5 Ankle dosiflexion: L4, L5 5/5 5/5 EHL: L5 5/5 5/5 Ankle plantarflexion: S1 5/5 5/5 Sensation from L1-S2 is preserved. Abdomen is soft and non-tender. Labs: Lab Results Component Value Date WBC 6.5 08/14/2020 HGB 9.1 (L) 08/14/2020 PLT 242 08/14/2020 INR 0.98 08/14/2020 Assessment & Plan: Dakota Casiano is a 20 year old female with PMH including scoliosis s/p multiple surgies, presented with pseudarthrosis and a possible unknown bleeding disorder now s/p reinsertion of spinal instrumentation on 08/09/[address] Ha. Postoperative pain and dizziness have slowed postoperative progression. Goals for today: - Continue to work with PT PICU Primary Activity: Up with assist until independent. No excessive bending or twisting. No lifting >10 lbs x 6 weeks. Julianne lift approved for transfers. Keep back straight if using lift. Weight bearing status: WBAT. Pain management: Transition from IV to PO as tolerated. No NSAIDs. Recommend adding lidocaine patches and menthol patches to pain regimen. Antibiotics: Ancef x24hrs postop - completed Diet: Begin with clear fluids and progress diet as tolerated. Supplement calcium + vitamin D. DVT prophylaxis: SCDs only. No chemical DVT ppx needed. Hematology following. Imaging: XR Upright - obtained 08/12/20 Labs: labs per primary team. Bracing/Splinting: None. Dressings: Keep dressing c/d/i x 7 days. Drains: Removed 08/11. Cortez catheter: Voiding w/o Cortez Physical Therapy/Occupational Therapy: Eval and treat. Consults: Orthopedics, Hematology, Endocrinology. Follow-up: Clinic with Dr. Ha in 6 weeks with repeat x-rays. Disposition: Pending progress with therapies, pain control on orals, post-op imaging. Orthopaedics surgery staff for this patient is Dr. Ha. [ x ] Drain removed. [ x ] Post xrays done. Estee Dick MD Orthopaedic Surgery, PGY4 Pager: [phone] FOLLOWUP: Future Appointments Date Time Provider Department Center 09/22/2020 8:30 AM Catina Ha MD [facility] 10/27/2020 2:30 PM Catina Ha MD [facility] HOLOGY DEPARTMENT CHAIR Jaiden Bonilla MD - 08/14/2020 7:23 AM CST Images from the original note were not included. Progress note - General Pediatrics Service Date of Admission: Day of Service: 08/14/2020 Physician Attestation I, Jaiden Bonilla MD, saw this patient with the resident and agree with the resident/fellow's findings and plan of care as documented in the note. I personally reviewed vital signs, medications and labs. Ren findings: Pt doing well, reviewed discharge goals including coming off IV pain medication. Pt isvery motivated, ambulating, having BM's. Pain under better control with [place] and prn Fentanyl, remains on Ketamine. Lungs - CTA bilaterally, CV- RRR no M Abdomen - soft, ND, NT Jiaden Bonilla MD Date of Service (when I saw the patient): 08/14/20 Assessment & Plan Dakota Casiano is a 20 year old female??with a history of tethered cord, scoliosis??s/p spinal fusion,POTS, complex pain, and complex platelet disorder, who is POD#5 s/p??planned procedure to remove her??spinal instrumentation due to pain and concern for metal hypersensitivity. However, intraoperatively she was??found to have four areas of pseudoarthroses??requiring reinstrumentation. She required PICU admission post-op for close??monitoring while on lidocaine infusion, now on fentanyl ENROBER TENDER and ketamine drip with sub-optimal pain control. She is otherwise clinically stable. Today's changes: -Discontinue fentanyl ENROBER TENDER -Start fentanyl IV Q2H PRN -Added lidocaine patch -Stop IVF Neuro/Ortho Scoliosis POD#5 s/p removal of hardware (segmental spinal instrumentation T3-L4) and pseudoarthrosis repair (day of surgery 08/09/20 -??Valium 2.5 mg IV Q6H for muscle spasm?? - Hold GENERATOR WORKER flexeril 5 mg BID -??neuro checks Q4H - hemovac drain removed on 08/12 - no activity/HOB restrictions ?? Pain - acute on poorly-controlled chronic pain/anxiety - PACCT consult, appreciate recommendations - Fentanyl ENROBER TENDER discontinued - Fentanyl 25 mcg Q2H PRN started - Pregabalin 75 mg Q12H - Commence NORCO 5-325 mg PO Q4H/PRN per PACCT recs (can go up on [place] to 10- 325 mg if more pain per PACCT) - Continue Ketamine 3mg/hr infusion, try to discontinue 08/15 ?? Psych: Anxiety - GENERATOR WORKER sertraline 100 mg daily -??IV atarax 25 mg Q6H??PRN - Olanzepine 5mg at bedtime Heme/onc?? Anemia Complex platelet disorder Similar to [place] platelet disorder but genetic testing not consistent with this diagnosis. - Hematology consulted - Coagulation profile and CBC, INR, PTT, fibrinogen Q24H - TEG w/o heparinase qAM - Fibrinogen goal >150 - if lower may need cryoprecipitate - May need platelet transfusion if active bleeding - Continue 1g TXA PO Q6H -- plan for total 7 days (08/09 8:30am - 8:30am 08/16/20) -- Discuss TEG levels and need for adjusting TXA dosing with Dr. Gerry Cruz ?? FEN/Renal?? - Regular diet as tolerated - IVF TKO -??Monitor I/Os Cardiovascular?? Postural hypotension - Discontinue daily weights - Consider NS bolus for orthostatic hypotension/dizziness during PT or for hypotension GI?? - Senna and Miralax PRN for constipation - Zofran 4 mg IV Q6H/PRN for vomiting ?? Endo?? Unclear platelet disorder s/p significant workup. Given the pseudoarthroses, concern for collagen/bone??disorder. - Endocrinolgy??consulted, appreciate recs - Bone survey prior to discharge -??GENERATOR WORKER??OCP -??GENERATOR WORKER vitamin D 125mcg PO daily? Respiratory?? Comfortable on room air Productive cough, no fever, no crackles on exam, possible post op atelectasis -??continuous pulse ox - incentive spirometry ?? Diet:??Advance Diet as Tolerated: Regular diet?? Fluids:??NS DVT Prophylaxis:??Pneumatic Compression Devices Cortez Catheter:??None Code Status:??Full? Disposition Plan Expected discharge:??1-2 days, recommended home following adequate pain management/ tolerating PO medications, clear from orthopedic, hematologic standpoint The patient's care was discussed with the attending physician, Dr. Chad Steel MD General Pediatrics Service [facility]?? Interval History Received fentanyl bolus on ENROBER TENDER x3 overnight. Getting [place] every 4 hours. Mom and Dakota feel like her pain is better today, rating as 8/10 as compared to 9- 10/10 overnight. Smiling and talking at time of visit. Drank well yesterday with good urine output. Walking around the halls and doing stairs. Data reviewed today: I reviewed all medications, new labs and imaging results over the last 24 hours. Physical Exam Vital Signs: Temp: 99.6 ??F (37.6 ??C) Temp src: Oral BP: 119/62 Pulse: 100 Resp: 20 SpO2: 98 % O2 Device: None (Room air) Weight: 120 lbs 9.47 oz Constitutional: awake, alert, cooperative, no apparent distress, and appears stated age Respiratory: No increased work of breathing, good air exchange, clear to auscultation bilaterally, no crackles or wheezing Cardiovascular: normal S1 and S2, I/ holosystolic murmur appreciated (flow murmur?) GI: Soft, non-distended, non-tender Neurologic: Awake, alert, oriented to name, place and time. Cranial nerves II- XII are grossly intact. MSK: Dressing over spine with minimal blood stains HOLOGY DEPARTMENT CHAIR Jaiden Bonilla MD - 08/13/2020 2:48 PM CST Images from the original note were not included. Progress note - General Pediatrics Service Date of Admission: Physician Attestation Jaiden Young MD, saw this patient with the resident and agree with the resident/fellow's findings and plan of care as documented in the note. I personally reviewed vital signs, medications and labs. Ren findings: Pt with good BM's yesterday, loose. Still with back pain, on Fentanyl ENROBER TENDER and Ketamine. Plan to start oral pain medication. Continue good bowel regiment. Hgb stable. Mom reports more redspots on spine dressing, will follow. Lungs - CTA with decreased A/E at bases CV- RRR no M Abdomen - soft, ND, NT. Back - small red spots on spine dressing x 5. No active bleeding. Jaiden Bonilla MD Date of Service (when I saw the patient): 08/13/20 Assessment & Plan Dakota Casiano is a 20 year old female??with a history of tethered cord, scoliosis??s/p spinal fusion,POTS, complex pain, and complex platelet disorder, who is POD#4 s/p??planned procedure to remove her??spinal instrumentation due to pain and concern for metal hypersensitivity. However, intraoperatively she was??found to have four areas of pseudoarthroses??requiring reinstrumentation. She required PICU admission post-op for close??monitoring while on lidocaine infusion, now on fentanyl ENROBER TENDER and ketamine drip with sub-optimal pain control. She is otherwise clinically stable. Neuro/Ortho Scoliosis POD#3 s/p removal of hardware (segmental spinal instrumentation T3-L4) and pseudoarthrosis repair (day of surgery 08/09/20 -??Valium 2.5 mg IV Q6H for muscle spasm?? - Hold GENERATOR WORKER flexeril 5 mg BID -??neuro checks Q4H - hemovac drain removed on 08/12 - no activity/HOB restrictions ?? Pain - acute on poorly-controlled chronic pain/anxiety - PACCT consult, appreciate recommendations - Fentanyl ENROBER TENDER - Pregabalin 75 mg Q12H - Discontinue scheduled Tylenol - Commence NORCO 5-325 mg PO Q4H/PRN per PACCT recs - Continue Ketamine 3mg/hr infusion ?? Psych: Anxiety - GENERATOR WORKER sertraline 100 mg daily -??IV atarax 25 mg Q6H??PRN - Olanzepine 5mg at bedtime Heme/onc?? Anemia Complex platelet disorder Similar to [place] platelet disorder but genetic testing not consistent with this diagnosis. - Heme/Onc consulted, appreciate recs - Repeat hemoglobin level later today and touch base with hematology - Coagulation profile and CBC,INR, PTT, fibrinogen q12hr (10am, 10pm) - TEG w/o heparinase qAM - Fibrinogen goal >150 - may need cryoprecipitate - may need platelet transfusion if active bleeding - Continue 1g TXA PO q6hr. - plan for total 7 days (08/09 8:30am - 8:30am 08/16/20) -- Discuss TEG levels and need for adjusting TXA dosing with Dr. Garrett ?? FEN/Renal?? - Regular diet as tolerated - Encourage oral fluid intake - IV/PO titrate, to get 400mls every 4 hours (NS at 100cc/hr) -??strict I/Os, daily weights?? Cardiovascular?? Postural hypotension -Obtain EKG - Strict I/O charting - Daily weights - Consider NS bolus for orthostatic hypotension/dizziness during PT or for hypotension. GI?? - Senna and Miralax PRN for constipation - Zofran 4 mg IV Q6H/PRN for vomiting ?? Endo?? Unclear platelet disorder s/p significant workup. Given the pseudoarthroses, concern for collagen/bone??disorder. - Endocrinolgy??consulted, appreciate recs - Bone survey prior to discharge -??GENERATOR WORKER??OCP -??GENERATOR WORKER vitamin D 125mcg PO daily? Respiratory?? Comfortable on room air Productive cough, no fever, no crackles on exam, possible post op atelectasis -??continuous pulse ox - incentive spirometry ?? Diet:??Advance Diet as Tolerated: Regular diet?? Fluids:??NS DVT Prophylaxis:??Pneumatic Compression Devices Cortez Catheter:??None Code Status:??Full? Disposition Plan Expected discharge:??2 - 3 days, recommended home following adequate pain management/ tolerating PO medications, clear from orthopedic, hematologic standpoint The patient's care was discussed with the attending physician, Dr. Chad Kilgore MD General Pediatrics Service [facility]?? Interval History Pain was poorly controlled on continuous ketamine and fentanyl ENROBER TENDER overnight, she had several episodes of loose stools overnight, no complaints of nausea, hemoglobin down to 8.2 from 10.4 yesterday Data reviewed today: I reviewed all medications, new labs and imaging results over the last 24 hours. Physical Exam Vital Signs: Temp: 98.1 ??F (36.7 ??C) Temp src: Oral BP: 120/74 Pulse: 99 Resp: 16 SpO2: 100 % O2 Device: None (Room air) Weight: 120 lbs 9.47 oz Constitutional: awake, alert, cooperative, no apparent distress, and appears stated age Respiratory: No increased work of breathing, good air exchange, clear to auscultation bilaterally, no crackles or wheezing Cardiovascular: normal S1 and S2, normal pulses GI: No scars, normal bowel sounds, soft, non-distended, non-tender, no masses palpated, no hepatosplenomegally Neurologic: Awake, alert, oriented to name, place and time. Cranial nerves II- XII are grossly intact. YASH: Dressing over spine with minimal blood stains HOLOGY DEPARTMENT CHAIR Estee Dick MD - 08/13/2020 7:18 AM CST Orthopaedic Surgery Progress Note: 08/13/2020 Subjective: Transferred to the floor from the PICU yesterday. Multiple loose stools after taking milk of magnesia yesterday - this is improved this morning. Voiding. Was able to walk with PT yesterday. Has back soreness but feels like overall pain is controlled with medication. Objective: BP (!) 87/44 Pulse 86 Temp 97.7 ??F (36.5 ??C) (Oral) Resp 18 Ht 1.6 m (5' 3) Wt 54.7 kg (120 lb 9.5 oz) SpO2 99% BMI 21.36 kg/m?? No intake/output data recorded. Gen: NAD. Resting comfortably in bed. Resp: Breathing comfortably on RA. Drain: Superficial drain: removed 1/7. Musculoskeletal: dressing c/d/i. Small area of strike through at cephalad end of incision, stable. Sensation from C4-L1 is preserved. Lower extremities: Motor Strength Right Left Hip flexion: L1, L2, L3 5/5 5/5 Hip adduction: L2, L3 5/5 5/5 Knee flexion: S1 5/5 5/5 Knee extension: L3, L4 5/5 5/5 Ankle dosiflexion: L4, L5 5/5 5/5 EHL: L5 5/5 5/5 Ankle plantarflexion: S1 5/5 5/5 Sensation from L1-S2 is preserved. Abdomen is soft and non-tender. Labs: Lab Results Component Value Date WBC 9.9 08/12/2020 HGB 10.4 (L) 08/12/2020 PLT 224 08/12/2020 INR 0.99 08/12/2020 Imaging: Thoracic/lumbar XRs 08/12/20: No change s/p thoracolumbar fixation. No bony abnormalities. Assessment & Plan: Dakota Casiano is a 20 year old female with PMH including scoliosis s/p multiple surgies, presented with pseudarthrosis and a possible unknown bleeding disorder now s/p reinsertion of spinal instrumentation on 08/09/[address] Ha. Postoperative pain and dizziness have slowed postoperative progression. Goals for today: - Continue to work with PT PICU Primary Activity: Up with assist until independent. No excessive bending or twisting. No lifting >10 lbs x 6 weeks. Julianne lift approved for transfers. Keep back straight if using lift. Weight bearing status: WBAT. Pain management: Transition from IV to PO as tolerated. No NSAIDs. Recommend adding lidocaine patches and menthol patches to pain regimen. Antibiotics: Ancef x24hrs postop - completed Diet: Begin with clear fluids and progress diet as tolerated. Supplement calcium + vitamin D. DVT prophylaxis: SCDs only. No chemical DVT ppx needed. Hematology following. Imaging: XR Upright - obtained 08/12/20 Labs: labs per primary team. Bracing/Splinting: None. Dressings: Keep dressing c/d/i x 7 days. Drains: Removed 08/11. Cortez catheter: Voiding w/o Cortez Physical Therapy/Occupational Therapy: Eval and treat. Consults: Orthopedics, Hematology, Endocrinology. Follow-up: Clinic with Dr. Ha in 6 weeks with repeat x-rays. Disposition: Pending progress with therapies, pain control on orals, post-op imaging. Orthopaedics surgery staff for this patient is Dr. Ha. [ x ] Drain removed. [ x ] Post xrays done. Estee Dick MD Orthopaedic Surgery, PGY4 Pager: [phone] FOLLOWUP: Future Appointments Date Time Provider Department Center 09/22/2020 8:30 AM Catina Ha MD [facility] 10/27/2020 2:30 PM Catina Ha MD [facility] HOLOGY DEPARTMENT CHAIR Ruby Goel, RN - 08/12/2020 2:15 PM CST Family education completed: Yes Report given to: Marquis Time of transfer: 11:30 Transferred to: Unit 6 Belongings sent:Yes Family updated:Yes Reviewed pertinent information from [facility] (EMAR/Clinical Summary/Flowsheets):Yes Head-to-toe assessment with receiving RN:Yes Recommendations (e.g. Family needs/recent issues/things to watch for): Patient's VSS and remained afebrile. Reporting pain an 8-9. PRN fentanyl x1. Patient voided x2 and BM x2. PO intake well tolerated. Mom at bedside and updated on POC> HOLOGY DEPARTMENT CHAIR Azar Cruz MD - 08/12/2020 1:25 PM CST [facility]?? Inpatient Progress Note - Hematology Date of Visit: 08/12/2020 Date of Admission: 08/09/2020 Consult Requested by: Eleanor Dooley MD, PICU Reason for Consult: Hemostasis management recommendations in the setting of suspected bleeding disorder Assessment & Plan Dakota Caisano is a 20 year old female admitted on 08/09/2020. She has a history of tethered cord and severe scoliosis s/p multiple repairs but after one of the procedures in January 2016, she had significantunexpected blood loss that has led, over the last 4+ years, to a bleeding disorder workup for which the diagnosis remains elusive. She had mild platelet dysfunction on an aggregation study, with a second mildly abnormal wave in response to epinephrine 3 months ago. While this finding and her symptoms were consistent with the rare [place] platelet disorder, genetic testing was not consistent with the known genetics of that diagnosis. 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 I was present during the full procedure to help monitor hemostasis using clinical course and lab outcomes combined with an infusion of tranexamic acid, all of which went well. She was subsequently extubated and transferred to the PICU where she was recovering until today, at which point she is moving to the floor. The drain is now out. Recommendations -Continue TXA 1 gram PO TXA q6h for a planned total of 7 days. Dose can increase to 1.5 grams if TEGsuggests hyperfibrinolysis or her bleeding starts to recur (appears unlikely this far out from surgery based on her history). -Labs can be spaced to daily, though repeat sooner if bleeding occurs. -If bleeding is excessive despite TXA, then platelet transfusion (given her uncertain platelet disorder) would be warranted. I will continue to follow her course daily. Please feel free to reach out with any questions. Azar Cruz MD Pediatric Guest Associate Division of Pediatric Hematology/Oncology [facility] Pager: [facility]?? Interval History Dakota has done well in the days since the operation. Pain has been her most prominent issue though she is able to move to the floor today. She has had some orthostatic hypotension. No bleeding has beennoted and coags have been stable. Drain is removed. She is tolerating the oral TXA. History of Present Illness Dakota Casiano is a 20 year old female with a long history of severe scoliosis who has undergone several procedures for repair. She was undergoing hardware removal today due to significant pain issues. During the last 5 years with multiple procedures, she has had a significant multi-site hematology workup because back in January 2016, when she underwent spinal decortication after tethered cord repair at an outside hospital, she had a significant blood loss that was unexpected given the procedure. She wasgiven pRBC and platelets during that event with little improvement. This event has precipitated workup at [facility], [place], and [facility] where she was found to have an ill-defined platelet defect, though genetics have been unrevealing to date. Interestingly, she has gone spinal repairs and hardware manipulation before and after that difficult procedure, both with and without antifibrinolytics being used. These events paint a puzzling picture of what triggered her major bleeding episode, and most of her hemostasis testing has been normal, but aggregometry shows a mildly abnormal response to epinephrine which up until a week or two ago was thought to possibly be [place] platelet disorder (targeted genetictesting was negative). She has been healthy recently but has had lots of back pain. It has been considered to be due to the hardware, potentially as a hypersensitivity, so she underwent the procedure to day to see if this would improve her pain. 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 Her bleeding history and surgical course have been extensively documented by Dr. Mariposa Atwood on 08/08/2020 and thus will not be re-copied here. Past Medical History I have reviewed this patient's medical history and updated it with pertinent information if needed. Past Medical History: Diagnosis Date ??? PONV (postoperative nausea and vomiting) ??? Scoliosis Tethered cord, now repaired Significant bleeding event during a prior spine surgery January 2016 Suspected primary hemostasis/platelet disorder, not yet defined. Past Surgical History Several spinal surgeries in the past Social History I have reviewed this patient's social history and updated it with pertinent information if needed. Social History Tobacco Use ??? Smoking status: Never Smoker ??? Smokeless tobacco: Never Used Substance Use Topics ??? Alcohol use: Not Currently ??? Drug use: Not Currently Family History I have reviewed this patient's family history and updated it with pertinent information if needed. (copied from her primary state comptroller's recent note Aug 2020) Dad with nosebleeds, but no surgeries (orphaned so no other history) Mom with heavy periods, no bruising, no issues with surger Maternal Aunt with Type IIa vWD from [facility] records Medications Medications Prior to Admission Medication Sig Dispense Refill Last Dose ??? cholecalciferol (VITAMIN D3) 125 mcg (5000 units) capsule Take by mouth daily 08/08/2020 at Unknown time ??? cyclobenzaprine (FLEXERIL) 5 MG tablet Take 1 tablet by mouth 2 times daily 08/08/2020 at Unknown time ??? HYDROcodone-acetaminophen (NORCO) 5-325 MG tablet Take 1 tablet by mouth every 6 hours as neededPast Week at Unknown time ??? Norethindrone Acet-Ethinyl Est (LOESTRIN 08/24, , PO) Take by mouth daily 08/08/2020 at Unknown time ??? sertraline (ZOLOFT) 100 MG tablet Take 100 mg by mouth daily Allergies Allergies Allergen Reactions ??? Dust Mites Itching Other reaction(s): Itching,Watering Eyes ??? Hydromorphone Other (See Comments) Pt did not remember what happened, she became very angry and aggressive Just the pill form. Pt did not remember what happened, she became very angry and aggressive Physical Exam Vital Signs: Temp: 98.3 ??F (36.8 ??C) Temp src: Oral BP: 111/65 Pulse: 81 Resp: 18 SpO2: 100 % O2 Device: None (Room air) Weight: 120 lbs 9.47 oz Exam: No exam performed today as this was a virtual evaluation Data Results for orders placed or performed during the hospital encounter of 08/09/20 (from the past 24 hour(s)) INR Result Value Ref Range INR 1.21 (H) 0.86 - 1.14 Fibrinogen activity Result Value Ref Range Fibrinogen 564 (H) 200 - 420 mg/dL CBC with platelets Result Value Ref Range WBC 11.6 (H) 4.0 - 11.0 10e9/L RBC Count 3.46 (L) 3.8 - 5.2 10e12/L Hemoglobin 10.6 (L) 11.7 - 15.7 g/dL Hematocrit 32.6 (L) 35.0 - 47.0 % MCV 94 78 - 100 fl MCH 30.6 26.5 - 33.0 pg MCHC 32.5 31.5 - 36.5 g/dL RDW 12.2 10.0 - 15.0 % Platelet Count 209 150 - 450 10e9/L Partial thromboplastin time Result Value Ref Range PTT 36 22 - 37 sec TEG without Heparinase Result Value Ref Range R time until clot forms 4.4 (L) 5 - 10 Minute K time to spec clot strength 1.1 1 - 3 Minute Angle rate of clot strength 74.9 (H) 53 - 72 Degrees MA maximum clot strength 71.6 (H) 50 - 70 mm CI hypercoagulation index 3.4 (H) 0.0 - 3.0 Ratio G actual clot strength 12.6 (H) 4.5 - 11.0 Kd/sc LY30 lysis at 30 minutes 2.8 0 - 8 % LY60 lysis at 60 minutes 6.9 0 - 15 % HOLOGY DEPARTMENT CHAIR Jaiden Bonilla MD - 08/12/2020 11:33 AM CST [facility]?? Transfer acceptance note - General Pediatrics Service Date of Admission: 08/09/2020 Physician Attestation I, Jaiden Bonilla MD, saw this patient with the resident and agree with the resident/fellow's findings and plan of care as documented in the note. I personally reviewed vital signs, medications, labs and imaging. Ren findings: Patient seen and examined by me. Moving gently but able to transfer from bed to chair and ambulate. Dressing on spine intact. Lungs CTA CV- RRR . Agree with plan as outlined, monitor paincontrol with PACCT team, bowel movements with Miralax. Jaiden Bonilla MD Date of Service (when I saw the patient): 08/12/20 Assessment & Plan Dakota Casiano is a 20 year old female??with a history of tethered cord, scoliosis??s/p spinal fusion,POTS, complex pain, and complex platelet disorder, who is POD#3 s/p??planned procedure to remove her??spinal instrumentation due to pain and concern for metal hypersensitivity. However, intraoperatively she was??found to have four areas of pseudoarthroses??requiring reinstrumentation. She required PICU admission post-op for close??monitoring while on lidocaine infusion, now on fentanyl ENROBER TENDER and ketamine drip with sub-optimal pain control. She has ongoing intermittent orthostatic hypotension and is onbowel regimen for constipation. She is otherwise clinically stable. Neuro/Ortho Scoliosis POD#3 s/p removal of hardware (segmental spinal instrumentation T3-L4) and pseudoarthrosis repair (day of surgery 08/09/20 - Follow up standing x-ray on 08/12 -??Valium 2.5 mg IV Q6H for muscle spasm?? - Hold GENERATOR WORKER flexeril 5 mg BID -??neuro checks Q4H - hemovac drain removed on 08/12 - no activity/HOB restrictions ?? Pain - acute on poorly-controlled chronic pain/anxiety - PACCT consult, appreciate recommendations - Fentanyl ENROBER TENDER - Pregabalin 75 mg Q12H -Tylenol 650 mg PO Q6H - Continue Ketamine 3mg/hr infusion ?? Psych: Anxiety - GENERATOR WORKER sertraline 100 mg daily -??IV atarax 25 mg Q6H??PRN - Olanzepine 5mg at bedtime ?? FEN/Renal?? - Regular diet as tolerated - Encourage oral fluid intake - MIVF (NS at 100cc/hr) -??strict I/Os, daily weights?? - consider checking BMP today or 1/9 am if remains on IVF. Cardiovascular?? Postural hypotension -Obtain EKG - Strict I/O charting - Daily weights - Consider NS bolus for orthostatic hypotension/dizziness during PT or for hypotension. Heme/onc?? Complex platelet disorder Similar to [place] platelet disorder but genetic testing not consistent with this diagnosis. - Heme/Onc consulted, appreciate recs - Coagulation profile and CBC,INR, PTT, fibrinogen q12hr (10am, 10pm) - TEG w/o heparinase qAM - Fibrinogen goal >150 - may need cryoprecipitate - may need platelet transfusion if active bleeding - Continue 1g TXA PO q6hr. - plan for total 7 days (08/09 8:30am - 8:30am 08/16/20) -- Discuss TEG levels and need for adjusting TXA dosing with Dr. Gerry BERRY?? - bowel regimen: -- Senna 8.6mg PO BID -- Miralax 17g PO BID -- Milk of magnesia (mag hydroxide) 30mL once -- bisacodyl suppository 10mg PRN ?? Nausea. - zofran 4 mg Q6H PRN IV ?? Endo?? Unclear platelet disorder s/p significant workup. Given the pseudoarthroses, concern for collagen/bone??disorder. - Endocrinolgy??consulted, appreciate recs - Bone survey prior to discharge -??GENERATOR WORKER??OCP -??GENERATOR WORKER vitamin D 125mcg PO daily? Respiratory?? Comfortable on room air Productive cough, no fever, no crackles on exam, possible post op atelectasis -??continuous pulse ox - incentive spirometry ?? Diet:??Advance Diet as Tolerated: Regular diet?? Fluids:??NS DVT Prophylaxis:??Pneumatic Compression Devices Cortez Catheter:??None Code Status:??Full? Disposition Plan Expected discharge:??2 - 3 days, recommended home following adequate pain management/ tolerating PO medications, clear from orthopedic, hematologic standpoint The patient's care was discussed with the attending physician, Dr. Chad Kilgore MD General Pediatrics Service [facility]?? Interval History She was transferred to the floor, complains of pain, passed stool. No longer having nausea Data reviewed today: I reviewed all medications, new labs and imaging results over the last 24 hours. Physical Exam Vital Signs: Temp: 98.2 ??F (36.8 ??C) Temp src: Oral BP: 107/53 Pulse: 86 Resp: 20 SpO2: 100 % O2 Device: None (Room air) Weight: 120 lbs 9.47 oz Constitutional: awake, alert, cooperative, no apparent distress, and appears stated age Respiratory: No increased work of breathing, good air exchange, clear to auscultation bilaterally, no crackles or wheezing Cardiovascular: normal S1 and S2 GI: No scars, normal bowel sounds, soft, non-distended, non-tender, no masses palpated, no hepatosplenomegally Neurologic: Awake, alert, oriented to name, place and time. Cranial nerves II- XII are grossly intact. HOLOGY DEPARTMENT CHAIR Eleanor Dooley MD - 08/12/2020 8:34 AM CST [facility]?? Pediatric Intensive Care Progress Note Date of Service (when I saw the patient): 08/12/2020 Assessment & Plan Dakota Casiano is a 20 year old female with a history of tethered cord, scoliosis s/p spinal fusion, POTS, complex pain, and complex platelet disorder, who is POD#3 s/p planned procedure to remove her spinal instrumentation due to pain and concern for metal hypersensitivity. However, intraoperatively she was found to have four areas of pseudoarthroses requiring reinstrumentation. She required PICU admission post-op for close monitoring while on lidocaine infusion and optimizing pain regimen. She continues to have significant pain (PACCT consulted), but this is slowly improving each day; ongoing intermittent orthostatic hypotension, and constipation. Clinically stable and ready to transfer to the general peds floor ([facility] team). ?? Neuro/Ortho Scoliosis POD#3 s/p removal of hardware (segmental spinal instrumentation T3-L4) and pseudoarthrosis repair (day of surgery 08/09/20) - Orthopedic surgery consulted/following. Touch base every morning. - s/p lidocaine gtt - stopped at 1600 on 08/12 - ortho will order follow up x-rays -- standing x-ray on 08/12 - valium 2.5 mg IV Q6H - muscle relaxant - hold GENERATOR WORKER flexeril 5 mg BID - neuro checks Q4H - hemovac drain removed on 08/12 - no activity/HOB restrictions Pain - acute on poorly-controlled chronic pain/anxiety - PACCT consult, appreciate recommendations - please see 08/[address] Gonzalez for details. - Switch to Fentanyl ENROBER TENDER: 0mcg/hr basal rate; 4 bumps per hour of 25mcg (max 100mcg per hour), [id number] bolus when starting pump. If becomes too sleepy, can decrease bump frequency or dose. - Tylenol 650 mg PO Q6H - Pregabaline (Lyrica) 75mg BID - co-analgesic - Received 1x 25mcg IV Fentanyl dose on 08/12 am which helped significantly with back pain and allowedHaile to walk around the unit. Anxiolysis - Continue Ketamine 3mg/hr infusion, for anxiolytic properties. Can increase to 6mg/hr if needed. - Olanzepine 5.0mg at bedtime - for antiemetic and anxiolytic properties - GENERATOR WORKER sertraline 100 mg daily - IV atarax 25 mg Q6H PRN FEN/Renal - Advance diet as tolerated - Restarted mIVF (NS at 100cc/hr) overnight due to mild hypotension - Consider NS bolus for orthostatic hypotension/dizziness during PT or for hypotension. - strict I/Os, daily weights - consider checking BMP today or 08/13 am if remains on IVF. ?? Respiratory Comfortable on room air Productive cough - continuous pulse ox - incentive spirometry - really emphasize using this today due to new cough. ?? Cardiovascular At risk for arrhythmia 2/2 lidocaine gtt - stopped on 08/11 - MAP >60, SBP >90 - baseline EKG on 08/12 to eval for QTC prolongation (unless EKG from 08/11 can be found since it is listed as completed in her chart). - Orthostatic blood pressures today ?? Heme/onc Complex platelet disorder Similar to [place] platelet disorder but genetic testing not consistent with this diagnosis. - Heme/Onc consulted, appreciate recs - labs Q4H (may space to Q6H later) - CBC,INR, PTT, fibrinogen q12hr (10am, 10pm) - TEG w/o heparinase qAM - fibrinogen goal >150 - may need cryoprecipitate - may need platelet transfusion if active bleeding - Continue 1g TXA PO q6hr. -- plan for total 7 days (08/09 8:30am - 8:30am 08/16/20) -- Discuss TEG levels and need for adjusting TXA dosing with Dr. Gerry Cruz. ?? Infectious disease - no current concerns ?? GI - bowel regimen: -- Senna 8.6mg PO BID -- Miralax 17g PO BID -- Milk of magnesia (mag hydroxide) 30mL once -- bisacodyl suppository 10mg PRN if no stool by 8 afternoon. Or consider enema. ?? Nausea - discontinued scopolamine patch - did not reorder after 72 hours at it seemed to make minimal Impact on nausea. - zofran 4 mg Q6H PRN IV - has been requesting around the clock - increase olanzepine to 5.0 mg at bedtime ?? Endo Unclear platelet disorder s/p significant workup. Given the pseudoarthroses, concern for collagen/bone disorder. - Endocrinolgy consulted, appreciate recs - GENERATOR WORKER OCP - GENERATOR WORKER vitamin D 125mcg PO daily ? Diet: Advance Diet as Tolerated: Regular diet Fluids: NS + PO DVT Prophylaxis: Pneumatic Compression Devices Cortez Catheter: in place, indication: Strict 1-2 Hour I&O Code Status: Full ? Disposition Plan Expected discharge: 2 - 3 days, recommended to prior living arrangement once adequate pain management/ tolerating PO medications, clear from orthopedic, hematologic, and pain standpoint. ?? Patient discussed with the fellow, Dr. Leblanc, and the attending physician, Dr. Dooley. Vivi Wong, DO [facility] Pediatric Resident PL-2 Pager # [phone] Fellow Attestation: ?? Dakota Casiano??is a 20 yo w/ scoliosis, rare bleeding disorder, and unclear etiology for poor bone healing who??is no longer critically ill following re- instrumentation for spinal fusion and escalated analgesic requirement. Undergoing strict TXA regimen for bleeding prevention as well as further workup for underlying disorder of bone metabolism. Appropriate for transfer to general pediatric floor. ?? I personally examined and evaluated the patient today. All physician orders and treatments were placed at my direction. ??Formulated plan with the house staff team or resident(s) and agree with the findings and plan in this note. I have evaluated all laboratory values and imaging studies from the past 24 hours. Consults ongoing and ordered are: orthopedics, hematology, endocrinology, PACCT I personally managed the respiratory and hemodynamic support, metabolic abnormalities, nutritional status, antimicrobial therapy, and pain/sedation management. Ren decisions made today included: continue to hold ENROBER TENDER opioid as able, space hematologic labs, PT/OT to work with pt, scoliosis imaging at discharge per orthopedics, transfer to general pediatric floor Procedures that will happen in the ICU today are:??none The above plans and care have been discussed with??pt and mother??and all questions and concerns were addressed. ?? Pt discussed w/ attending physician ??Miah. ?? Brannon Leblanc, PGY6 Critical Care Fellow Pediatric Critical Care Progress Note: Dakota Casiano remains in the critical care unit recovering from scoliosis surgery requriing replacement of instrumentation in the setting of poor bone healing, platelet dysfunction, and chronic pain. I personally examined and evaluated the patient today. All physician orders and treatments were placed at my direction. I personally managed the antibiotic therapy, pain management, metabolic abnormalities, and nutritional status. I discussed the patient with the resident and I agree with the plan as outlined above. Ren decisions made today included: continue ketimine gtt, adjust fentanyl as needed, continue olanzapine for nausea and her chroninc medications. Continue TXA for a total of one week post op. ADAT. Plan to transfer to the general pediatric service today. I spent a total of35* minutes providing medical care services at the bedside, on the critical care unit, reviewing laboratory values and radiologic reports for Dakota Casiano. This patient is no longer critically ill, but requires cardiac/respiratory monitoring, vital sign monitoring, temperature maintenance, enteral feeding adjustments, lab and/or oxygen monitoring by the health care team under direct physician supervision. The above plans and care have been discussed with mother. Eleanor Dooley MD Interval History No acute events overnight. Continues to have back pain and was unable to get out of bed for extendedperiods of time yesterday. However, overall post-op pain seems to be slowly improving, with pain rated 8/10 this morning. Was able to sleep well overnight. Zofran given around the clock for nausea, and2.5mg olanzepine given. Afternoon switch from morphine drip to dilaudid drip was not successful because she developed confusion and mild delirium from this. A fentanyl drip was ordered instead, howeverthis was not continued overnight and she seemed to have no increase in pain level. Appropriate UOP, with no stool yet. No signs of bleeding. Physical Exam Temp: 98.3 ??F (36.8 ??C) Temp src: Oral BP: 115/67 Pulse: 84 Resp: (!) 35 SpO2: 100 % O2 Device: None (Room air) Vitals: 08/09/20 0650 Weight: 54.7 kg (120 lb 9.5 oz) Vital Signs with Ranges Temp: [97.6 ??F (36.4 ??C)-98.6 ??F (37 ??C)] 98.3 ??F (36.8 ??C) Pulse: [64-99] 84 Resp: [16-37] 35 BP: (79-122)/(40-71) 115/67 SpO2: [93 %-100 %] 100 % I/O last 3 completed shifts: In: 1202.11 [P.O.:270; I.V.:932.11] Out: 975 [Urine:975] General: lying calmly in bed, well-nourished, well-developed, afebrile, no acute distress, less sleepy today Skin: no rashes or lesions noted. Non-diaphoretic. Eyes: EOM grossly intact, PERRL, conjunctivae clear, white sclerae Nose: no drainage or congestion Mouth: MMM, no oral lesions noted Lungs: Lungs CTAB, no increased work of breathing, productive cough noted for first time this morning. CV: RRR, normal S1/S2, no murmurs noted; peripheral pulses 2+, cap refill <2 sec Abdomen: soft, nontender, nondistended, quiet=normal bowel sounds Back: dressing in place over spine and b/l paraspinal muscles, c/d/i. Extremities: warm and well perfused, no deformities noted Neuro: wakes appropriately with exam, responsive, moving all extremities, normal tone and strength, normal but slow and pained gait observed during walk on unit. Medications ??? [Held by provider] fentaNYL ??? fentanyl ??? heparin in 0.9% NaCl 50 unit/50mL ??? ketamine (KETALAR) 25 mg/mL ADULT SEDATION infusion 3 mg/hr (08/12/20 1153) ??? IV infusion builder /PEDS (commercially made base solution + custom additives) Stopped (08/10/202040) ??? sodium chloride 3 mL/hr at 08/12/20 0931 ??? sodium chloride Stopped (08/11/20 3955) ??? sodium chloride 100 mL/hr at 08/12/20 0853 ??? acetaminophen 650 mg Oral Q6H ??? calcium carbonate 500 mg Oral Daily ??? cholecalciferol 125 mcg Oral Daily ??? diazepam 2.5 mg Intravenous Q6H ??? LORazepam 2.5 mg Intravenous Once ??? norethindrone-ethinyl estradiol 1 tablet Oral Daily ??? OLANZapine zydis 2.5 mg Oral At Bedtime ??? polyethylene glycol 17 g Oral BID ??? pregabalin 75 mg Oral BID ??? sennosides 8.6 mg Oral BID ??? sertraline 100 mg Oral Daily ??? tranexamic acid 975 mg Oral Q6H Data Results for orders placed or performed during the hospital encounter of 08/09/20 (from the past 24 hour(s)) INR Result Value Ref Range INR 1.21 (H) 0.86 - 1.14 Fibrinogen activity Result Value Ref Range Fibrinogen 564 (H) 200 - 420 mg/dL CBC with platelets Result Value Ref Range WBC 11.6 (H) 4.0 - 11.0 10e9/L RBC Count 3.46 (L) 3.8 - 5.2 10e12/L Hemoglobin 10.6 (L) 11.7 - 15.7 g/dL Hematocrit 32.6 (L) 35.0 - 47.0 % MCV 94 78 - 100 fl MCH 30.6 26.5 - 33.0 pg MCHC 32.5 31.5 - 36.5 g/dL RDW 12.2 10.0 - 15.0 % Platelet Count 209 150 - 450 10e9/L Partial thromboplastin time Result Value Ref Range PTT 36 22 - 37 sec TEG without Heparinase Result Value Ref Range R time until clot forms 4.4 (L) 5 - 10 Minute K time to spec clot strength 1.1 1 - 3 Minute Angle rate of clot strength 74.9 (H) 53 - 72 Degrees MA maximum clot strength 71.6 (H) 50 - 70 mm CI hypercoagulation index 3.4 (H) 0.0 - 3.0 Ratio G actual clot strength 12.6 (H) 4.5 - 11.0 Kd/sc LY30 lysis at 30 minutes 2.8 0 - 8 % LY60 lysis at 60 minutes 6.9 0 - 15 % HOLOGY DEPARTMENT CHAIR Victor Hugo Talbot MD - 08/12/2020 5:45 AM CST Orthopaedic Surgery Progress Note: 08/12/2020 Subjective: Continues to struggle with postoperative pain and dizziness/lightheaded when upright. The patient thinks the medications changes yesterday were helpful. No symptoms in legs. Passing a little flatus, -BM. Voiding w/o Cortez. Objective: BP 101/63 Pulse 87 Temp 98.6 ??F (37 ??C) (Oral) Resp 16 Ht 1.6 m (5' 3) Wt 54.7 kg (120 lb 9.5 oz) SpO2 100% BMI 21.36 kg/m?? I/O this shift: In: 634.53 [I.V.:634.53] Out: - Gen: NAD. Resting comfortably in bed. Resp: Breathing comfortably on RA. Drain: Superficial drain: removed 08/11. Musculoskeletal: dressing c/d/i. Small area of strike through at cephalad end of incision, stable. Sensation from C4-L1 is preserved. Lower extremities: Motor Strength Right Left Hip flexion: L1, L2, L3 5/5 5/5 Hip adduction: L2, L3 5/5 5/5 Knee flexion: S1 5/5 5/5 Knee extension: L3, L4 5/5 5/5 Ankle dosiflexion: L4, L5 5/5 5/5 EHL: L5 5/5 5/5 Ankle plantarflexion: S1 5/5 5/5 Sensation from L1-S2 is preserved. Abdomen is soft and non-tender. Labs: Lab Results Component Value Date WBC 11.6 (H) 08/11/2020 HGB 10.6 (L) 08/11/2020 PLT 209 08/11/2020 INR 1.21 (H) 08/11/2020 Assessment & Plan: Dakota Casiano is a 20 year old female with PMH including scoliosis s/p multiple surgies, presented with pseudarthrosis and a possible unknown bleeding disorder now s/p reinsertion of spinal instrumentation on 08/09/[address] Ha. Postoperative pain and dizziness have slowed postoperative progression. Goals for today: - Work with therapies; stand and walk - Post op standing XRs (ordered) - More aggressive bowel reg - Ok to transfer to floor when deemed medically stable to do so PICU Primary Activity: Up with assist until independent. No excessive bending or twisting. No lifting >10 lbs x 6 weeks. Julianne lift approved for transfers. Keep back straight if using lift. Weight bearing status: WBAT. Pain management: Transition from IV to PO as tolerated. No NSAIDs. Recommend adding lidocaine patches and menthol patches to pain regiment. Antibiotics: Ancef x24hrs postop - completed Diet: Begin with clear fluids and progress diet as tolerated. Supplement calcium + vitamin D. Recommend giving mag citrate vs milk of mag this AM. If no BM this AM, suppository this afternoon. DVT prophylaxis: SCDs only. No chemical DVT ppx needed. Hematology following. Imaging: XR Upright - ordered. Please obtain today. Labs: labs per primary team. Bracing/Splinting: None. Dressings: Keep dressing c/d/i x 7 days. Drains: Removed 08/11. Cortez catheter: Voiding w/o Cortez. Physical Therapy/Occupational Therapy: Eval and treat. Consults: Orthopedics, Hematology, Endocrinology. Follow-up: Clinic with Dr. Ha in 6 weeks with repeat x-rays. Disposition: Pending progress with therapies, pain control on orals, post-op imaging. Orthopaedics surgery staff for this patient is Dr. Ha. [ x ] Drain removed. [ ] Post xrays done. Victor Hugo Talbot MD PGY5 Pager: [phone] Please page me directly with any questions/concerns during regular weekday hours before 5pm. If there is no response, if it is a weekend, or if it is during evening hours then please page the orthopaedic surgery resident early education teacher as listed on [facility] call schedule under the orthopaedics tab. FOLLOWUP: Future Appointments Date Time Provider Department Center 09/22/2020 8:30 AM Catina Ha MD [facility] 10/27/2020 2:30 PM Catina Ha MD [facility] HOLOGY DEPARTMENT CHAIR Azar Cruz MD - 08/11/2020 3:27 PM CST Hematology Progress Note Recommendations Dakota's drain output was pretty minimal and her drain has now been pulled. Her labs and TEGs show that the post-inflammatory coagulative process plus TXA is calming down. We can spread labs out to BID with TEGs qAM for now. I have shared this plan with the team. Azar Cruz MD Pediatric Guest Associate Division of Pediatric Hematology/Oncology [facility] Pager: HOLOGY DEPARTMENT CHAIR Eleanor Dooley MD - 08/11/2020 3:12 PM CST [facility]?? Pediatric Intensive Care Progress Note Date of Service (when I saw the patient): 08/11/2020 Assessment & Plan Dakota Casiano is a 20 year old female with a history of tethered cord, scoliosis s/p spinal fusion, and complex platelet disorder presenting POD#2 s/p planned procedure to remove her spinal instrumentation due to pain and concern for metal hypersensitivity. However, intraoperatively she was found to have four areas of pseudoarthroses requiring reinstrumentation. She requires PICU admission post-op forclose hemodynamic and respiratory monitoring while requiring escalated IV pain regimen. ?? FEN/Renal - ADAT - LR saline lock or TKO - strict I/Os, daily weights ?? Respiratory Comfortable on room air - continuous pulse ox - incentive spirometry ?? Cardiovascular At risk for arrhythmia 2/2 lidocaine gtt - continuous cardiac monitoring, art line - MAP >60, SBP >90 - baseline EKG ?? Heme/onc Complex platelet disorder Similar to [place] platelet disorder but genetic testing not consistent with this diagnosis. - Heme/Onc consulted, appreciate recs - labs Q4H (may space to Q6H later) - CBC - INR, PTT, fibrinogen - TEG w/o heparinase - fibrinogen goal >150 - may need cryoprecipitate - may need platelet transfusion if active bleeding - Continue 1g TXA PO q6hr. - plan for total 7 days (08/09 8:30am - 8:30am 08/16/20) - Normal iron level and TIBC. ?? Infectious disease - no current concerns ?? GI - bowel regimen: -- Senna 8.6mg PO BID -- Miralax 17g PO daily ?? Nausea - scopolamine patch - zofran 4 mg Q6H PRN IV - start olanzepine 2.5mg at bedtime - can increase to 5.0mg ?? Endo Unclear platelet disorder s/p significant workup. Given the pseudoarthroses, concern for collagen/bone disorder. - Endocrinolgy consulted, appreciate recs - GENERATOR WORKER OCP - GENERATOR WORKER vitamin D 125mcg PO daily ?? Neuro/Ortho Scoliosis POD#2 s/p removal of hardware (segmental spinal instrumentation T3-L4) and pseudoarthrosis repair (day of surgery 08/09/20) - Stop morphine gtt - Keep morphine 0.5mg PRN to cover while switching - Stop lidocaine gtt - ortho will order follow up x-rays - valium 2.5 mg IV Q6H - hold GENERATOR WORKER flexeril 5 mg BID - neuro checks Q4H - hemovac drain removed - no activity/HOB restrictions Pain - acute on poorly-controlled chronic pain/anxiety - PACCT consult, appreciate recommendations - Tylenol 650 mg PO Q6H - Switch to Dilaudid ENROBER TENDER (0.2mg/hr, 0.1mg bumps) - Start Ketamine 3mg/hr infusion - - Olanzepine 2.5-5.0mg at bedtime - for antiemetic and anxiolytic properties. ?? Psych: Anxiety - GENERATOR WORKER sertraline 100 mg daily - IV atarax 25 mg Q6H PRN - Olanzepine as above. ?? Diet: Advance Diet as Tolerated: Regular diet Fluids: LR + PO DVT Prophylaxis: Pneumatic Compression Devices Cortez Catheter: in place, indication: Strict 1-2 Hour I&O Code Status: Full ? Disposition Plan Expected discharge: 2 - 3 days, recommended to prior living arrangement once adequate pain management/ tolerating PO medications, clear from hematologic standpoint. ?? Patient discussed with the fellow, Dr. Leblanc, and the attending physician, Dr. Dooley. Vivi Wong, DO [facility] Pediatric Resident PL-2 Pager # [phone] Fellow Attestation: ?? Dakota Casiano is a 20 yo w/ scoliosis, rare bleeding disorder, and unclear etiology for poor bone healing who remains critically ill following re- instrumentation for spinal fusion due to escalated analgesic requirement. Undergoing strict TXA regimen for bleeding prevention as well as further workup forunderlying disorder of bone metabolism. ?? I personally examined and evaluated the patient today. All physician orders and treatments were placed at my direction. Formulated plan with the house staff team or resident(s) and agree with the findings and plan in this note. I have evaluated all laboratory values and imaging studies from the past 24 hours. Consults ongoing and ordered are: orthopedics, hematology, endocrinology, PACCT I personally managed the respiratory and hemodynamic support, metabolic abnormalities, nutritional status, antimicrobial therapy, and pain/sedation management. Ren decisions made today included: advance diet, discontinue lidocaine gtt, start ketamine gtt and add gabapentin/zyprexa, transition to ENROBER TENDER dilaudid, increase bowel regimen Procedures that will happen in the ICU today are: none The above plans and care have been discussed with pt and mother and all questions and concerns were addressed. ?? Pt discussed w/ attending physician Dr. Dooley. ?? Brannon Leblanc, PGY6 Critical Care Fellow Pediatric Critical Care Progress Note: Dakota Casiano remains in the critical care unit recovering from scoliosis surgery requriing replacement of instrumentation in the setting of poor bone healing, platelet dysfunction, and chronic pain. I personally examined and evaluated the patient today. All physician orders and treatments were placed at my direction. I personally managed the antibiotic therapy, pain management, metabolic abnormalities, and nutritional status. I discussed the patient with the resident and I agree with the plan as outlined above. Ren decisions made today included:Inconsultation with PAACT, will start ketamine drip and adjust as needed for pain contril. Will add back gabapentine and start zyprexa. If stable on this pain regimine, will transfer to the cervantes service for further management. I spent a total of 35 minutes providing medical care services at the bedside, on the critical care unit, reviewing laboratory values and radiologic reports for Dakota Casiano. This patient is no longer critically ill, but requires cardiac/respiratory monitoring, vital sign monitoring, temperature maintenance, enteral feeding adjustments, lab and/or oxygen monitoring by the health care team under direct physician supervision. The above plans and care have been discussed with mother. Eleanor Dooley MD Interval History No acute events overnight. No symptoms of lidocaine infusion toxicity or arrhythmias. Ongoing lightheadedness and nausea with postural changes. Zofran given around the clock without great effect. Art line and left hand PIV. Received 3 morphine PRNs. Slept well, though still reporting significant pain. Appropriate UOP, no stool. NNo sign of bleeding. Physical Exam Temp: 97.6 ??F (36.4 ??C) Temp src: Oral BP: 99/62 Pulse: 74 Resp: 18 SpO2: 100 % O2 Device: None (Room air) Vitals: 08/09/20 0650 Weight: 54.7 kg (120 lb 9.5 oz) Vital Signs with Ranges Temp: [97.6 ??F (36.4 ??C)-99.3 ??F (37.4 ??C)] 97.6 ??F (36.4 ??C) Pulse: [62-92] 74 Resp: [12-47] 18 BP: (87-110)/(46-74) 99/62 MAP: [69 mmHg-82 mmHg] 82 mmHg Arterial Line BP: (90-94)/(67-77) 92/74 SpO2: [90 %-100 %] 100 % I/O last 3 completed shifts: In: 1648.98 [P.O.:1210; I.V.:438.98] Out: 2365 [Urine:2350; Drains:10; Blood:5] General: lying calmly in bed, well-nourished, well-developed, afebrile, no acute distress, sleepy Skin: no rashes or lesions noted. Non-diaphoretic. Eyes: EOM grossly intact, PERRL, conjunctivae clear, white sclerae Nose: no drainage or congestion Mouth: MMM, no oral lesions noted Chest: Lungs CTAB, no increased work of breathing CV: RRR, normal S1/S2, no murmurs noted; peripheral pulses 2+, cap refill <2 sec Abdomen: soft, nontender, nondistended Back: dressing in place over spine and b/l paraspinal muscles, c/d/i. Extremities: warm and well perfused, no deformities noted Neuro: wakes appropriately with exam, responsive, moving all extremities Medications ??? heparin in 0.9% NaCl 50 unit/50mL ??? HYDROmorphone ??? ketamine (KETALAR) 25 mg/mL ADULT SEDATION infusion ??? lactated ringers 10 mL/hr at 08/10/20 1102 ??? IV infusion builder /PEDS (commercially made base solution + custom additives) Stopped (08/10/202040) ??? acetaminophen 650 mg Oral Q6H ??? calcium carbonate 500 mg Oral Daily ??? cholecalciferol 125 mcg Oral Daily ??? diazepam 2.5 mg Intravenous Q6H ??? LORazepam 2.5 mg Intravenous Once ??? norethindrone-ethinyl estradiol 1 tablet Oral Daily ??? OLANZapine zydis 2.5 mg Oral At Bedtime ??? polyethylene glycol 17 g Oral Daily ??? pregabalin 75 mg Oral BID ??? scopolamine Transdermal Once ??? sennosides 8.6 mg Oral BID ??? sertraline 100 mg Oral Daily ??? tranexamic acid 975 mg Oral Q6H Data Results for orders placed or performed during the hospital encounter of 08/09/20 (from the past 24 hour(s)) Fibrinogen activity Result Value Ref Range Fibrinogen 350 200 - 420 mg/dL INR Result Value Ref Range INR 1.14 0.86 - 1.14 Partial thromboplastin time Result Value Ref Range PTT 31 22 - 37 sec CBC with platelets Result Value Ref Range WBC 12.9 (H) 4.0 - 11.0 10e9/L RBC Count 3.46 (L) 3.8 - 5.2 10e12/L Hemoglobin 10.5 (L) 11.7 - 15.7 g/dL Hematocrit 31.4 (L) 35.0 - 47.0 % MCV 91 78 - 100 fl MCH 30.3 26.5 - 33.0 pg MCHC 33.4 31.5 - 36.5 g/dL RDW 12.4 10.0 - 15.0 % Platelet Count 169 150 - 450 10e9/L TEG without Heparinase Result Value Ref Range R time until clot forms 3.2 (L) 5 - 10 Minute K time to spec clot strength 1.2 1 - 3 Minute Angle rate of clot strength 73.1 (H) 53 - 72 Degrees MA maximum clot strength 63.9 50 - 70 mm CI hypercoagulation index 3.0 0.0 - 3.0 Ratio G actual clot strength 8.8 4.5 - 11.0 Kd/sc LY30 lysis at 30 minutes 3.3 0 - 8 % LY60 lysis at 60 minutes 7.3 0 - 15 % CBC with platelets Result Value Ref Range WBC 12.9 (H) 4.0 - 11.0 10e9/L RBC Count 3.59 (L) 3.8 - 5.2 10e12/L Hemoglobin 10.9 (L) 11.7 - 15.7 g/dL Hematocrit 33.7 (L) 35.0 - 47.0 % MCV 94 78 - 100 fl MCH 30.4 26.5 - 33.0 pg MCHC 32.3 31.5 - 36.5 g/dL RDW 12.3 10.0 - 15.0 % Platelet Count 193 150 - 450 10e9/L INR Result Value Ref Range INR 1.21 (H) 0.86 - 1.14 Partial thromboplastin time Result Value Ref Range PTT 31 22 - 37 sec TEG without Heparinase Result Value Ref Range R time until clot forms 4.0 (L) 5 - 10 Minute K time to spec clot strength 1.2 1 - 3 Minute Angle rate of clot strength 73.2 (H) 53 - 72 Degrees MA maximum clot strength 64.4 50 - 70 mm CI hypercoagulation index 2.6 0.0 - 3.0 Ratio G actual clot strength 9.0 4.5 - 11.0 Kd/sc LY30 lysis at 30 minutes 2.6 0 - 8 % LY60 lysis at 60 minutes 6.4 0 - 15 % Fibrinogen activity Result Value Ref Range Fibrinogen 403 200 - 420 mg/dL CBC with platelets Result Value Ref Range WBC 12.5 (H) 4.0 - 11.0 10e9/L RBC Count 3.56 (L) 3.8 - 5.2 10e12/L Hemoglobin 10.9 (L) 11.7 - 15.7 g/dL Hematocrit 33.6 (L) 35.0 - 47.0 % MCV 94 78 - 100 fl MCH 30.6 26.5 - 33.0 pg MCHC 32.4 31.5 - 36.5 g/dL RDW 12.2 10.0 - 15.0 % Platelet Count 199 150 - 450 10e9/L INR Result Value Ref Range INR 1.27 (H) 0.86 - 1.14 Partial thromboplastin time Result Value Ref Range PTT 34 22 - 37 sec TEG without Heparinase Result Value Ref Range R time until clot forms 4.7 (L) 5 - 10 Minute K time to spec clot strength 1.1 1 - 3 Minute Angle rate of clot strength 73.3 (H) 53 - 72 Degrees MA maximum clot strength 69.6 50 - 70 mm CI hypercoagulation index 2.8 0.0 - 3.0 Ratio G actual clot strength 11.5 (H) 4.5 - 11.0 Kd/sc LY30 lysis at 30 minutes 2.8 0 - 8 % LY60 lysis at 60 minutes 7.1 0 - 15 % Fibrinogen activity Result Value Ref Range Fibrinogen 486 (H) 200 - 420 mg/dL CBC with platelets Result Value Ref Range WBC 11.1 (H) 4.0 - 11.0 10e9/L RBC Count 3.51 (L) 3.8 - 5.2 10e12/L Hemoglobin 10.6 (L) 11.7 - 15.7 g/dL Hematocrit 32.8 (L) 35.0 - 47.0 % MCV 93 78 - 100 fl MCH 30.2 26.5 - 33.0 pg MCHC 32.3 31.5 - 36.5 g/dL RDW 12.3 10.0 - 15.0 % Platelet Count 210 150 - 450 10e9/L INR Result Value Ref Range INR 1.24 (H) 0.86 - 1.14 Partial thromboplastin time Result Value Ref Range PTT 37 22 - 37 sec TEG without Heparinase Result Value Ref Range R time until clot forms 5.1 5 - 10 Minute K time to spec clot strength 1.1 1 - 3 Minute Angle rate of clot strength 72.6 (H) 53 - 72 Degrees MA maximum clot strength 68.4 50 - 70 mm CI hypercoagulation index 2.4 0.0 - 3.0 Ratio G actual clot strength 10.8 4.5 - 11.0 Kd/sc LY30 lysis at 30 minutes 4.3 0 - 8 % LY60 lysis at 60 minutes 8.2 0 - 15 % Fibrinogen activity Result Value Ref Range Fibrinogen 515 (H) 200 - 420 mg/dL HOLOGY DEPARTMENT CHAIR Criselda Lemus OTR - 08/11/2020 11:06 AM CST 08/11/20 1045 Quick Adds Type of Visit Initial Inpatient Occupational Therapy Evaluation Living Environment Current Living Arrangements house Home Accessibility stairs to enter home;stairs within home (Tub/shower combo) People in home parent(s) Care Provided by parent(s) Transportation Anticipated family or friend will provide Functional Level Prior (Peds) Hearing Difficulty or Deaf no Wear Glasses or Blind no Which of the above functional risks had a recent onset or change? ambulation;transferring;toileting;dressing;bathing Equipment Currently Used at Home none General Information Onset of Illness/Injury or Date of Surgery 08/09/20 Referring Physician Marina Becerril MD Patient/Family Goals return to prior level of function Additional Occupational Profile Info/Pertinent History of Current Problem Per chart: 20 year old female with PMH including scoliosis s/p multiple surgies, presented with pseudarthrosis and a possible unknown bleeding disorder now s/p reinsertion of spinal instrumentation on 08/09/[address] Ha. Doing well postoperatively Parent/Caregiver Involvement Attentive to pt needs Existing Precautions/Restrictions spinal Cognitive Status Examination Level of Consciousness alert Follows Commands and Answers Questions 100% of the time Personal Safety and Judgment intact Behavior Behavior cooperative;anxious Visual Perception Visual Perception no deficits were identified Functional Vision Functional Vision No concerns Pain Assessment Patient Currently in Pain Yes, see Vital Sign flowsheet Posture Posture posture was appropriate Range of Motion (ROM) Range of Motion Range of Motion is functional Strength Upper Extremity Strength Not formally tested due to post op precautions, appears WFL Muscle Tone Assessment Muscle Tone Tone is within normal limits Balance Balance no deficits were identified Activities of Daily Living Analysis Impairments Contributing to Impaired Activities of Daily Living fear and anxiety;pain;post surgical precautions General Therapy Interventions Planned Therapy Interventions Therapeutic Procedure;Therapeutic Activities;Self Care/ Home Management Clinical Impression Criteria for Skilled Therapeutic Interventions Met (OT) yes;skilled treatment is necessary;meets criteria OT Diagnosis self care function impairment Influenced by the following impairments malaise;pain Assessment of Occupational Performance 5 or more Performance Deficits Identified Performance Deficits dressing, bathing, toileting, grooming, transfers, ambulation Clinical Decision Making (Complexity) Low complexity Therapy Frequency (OT) Daily Predicted Duration of Therapy Intervention (days/wks) 2 weeks Anticipated Equipment Needs at Discharge (TBD) Anticipated Discharge Disposition home w/ assist Risks and Benefits of Treatment have been explained. Yes Patient, Family & other staff in agreement with plan of care Yes Total Evaluation Time Total Evaluation Time (Minutes) 5 HOLOGY DEPARTMENT CHAIR Evelyn Grayson RD - 08/11/2020 9:50 AM CST CLINICAL NUTRITION SERVICES - PEDIATRIC ASSESSMENT NOTE REASON FOR ASSESSMENT Dakota Casiano is a 20 year old female seen by the dietitian for assessment of nutrition risk with admission to the PICU. ANTHROPOMETRICS August 09, 2020 Height/Length: 160 cm, 30.86 %tile (Z-score: -0.50) Weight: 54.7 kg, 38.12%tile (Z-score: -0.30) BMI: 21.36 kg/m^2, 47.61%tile (Z-score: -0.06) Dosing Weight: 54.7 kg Comments: Patient with weight trending between 25-50 %ile and no weight loss prior to admission. Weight appropriate for height. NUTRITION HISTORY Patient on a regular diet prior to admission with no known food allergies. Patient with good intake prior to admission with no concerns. Information obtained from: EMR, rounds Factors affecting nutrition intake include: medical/surgical course CURRENT NUTRITION ORDERS Diet: Regular CURRENT NUTRITION SUPPORT No nutrition support at this time. 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 NUTRITION DIAGNOSIS Predicted suboptimal nutrient intake related to nutrition orders as evidenced by reliant on PO intake with potential to not meet assessed nutritional needs. INTERVENTIONS Nutrition Prescription Dakota to meet assessed nutritional needs through PO to achieve weight gain and linear growth goals. Nutrition Education No education needs identified at this time for patient. Implementation Collaboration and Referral of Nutrition Care: Rounded with team. Goals 1. Intake of >75% TID meals/snacks. 2. Age-appropriate weight gain and linear growth. FOLLOW UP/MONITORING Food and beverage intake- Anthropometric measurements - Evelyn Grayson RDN, LD Pediatric Clinical Dietitian Pager: [phone] HOLOGY DEPARTMENT CHAIR Victor Hugo Talbot MD - 08/11/2020 6:14 AM CST Orthopaedic Surgery Progress Note: 08/11/2020 Subjective: Ongoing back pain. At times, difficult to manage. Feels well managed this AM. No symptoms in legs. Ongoing low HV output. Passing a little flatus, -BM. Voiding w/o Cortez. [place] lightheaded when standingx2. Objective: BP 104/58 Pulse 62 Temp 98.6 ??F (37 ??C) (Oral) Resp 13 Ht 1.6 m (5' 3) Wt 54.7 kg (120 lb 9.5 oz) SpO2 100% BMI 21.36 kg/m?? I/O this shift: In: 542.9 [P.O.:400; I.V.:142.9] Out: 800 [Urine:800] Gen: NAD. Resting comfortably in bed. Resp: Breathing comfortably on RA. Drain: Superficial drain output of 15/0. Musculoskeletal: dressing c/d/i. Sensation from C4-L1 is preserved. Lower extremities: Motor Strength Right Left Hip flexion: L1, L2, L3 5/5 5/5 Hip adduction: L2, L3 5/5 5/5 Knee flexion: S1 5/5 5/5 Knee extension: L3, L4 5/5 5/5 Ankle dosiflexion: L4, L5 5/5 5/5 EHL: L5 5/5 5/5 Ankle plantarflexion: S1 5/5 5/5 Sensation from L1-S2 is preserved. Labs: Lab Results Component Value Date WBC 12.9 (H) 08/10/2020 HGB 10.9 (L) 08/10/2020 PLT 193 08/10/2020 INR 1.21 (H) 08/10/2020 Assessment & Plan: Dakota Casiano is a 20 year old female with PMH including scoliosis s/p multiple surgies, presented with pseudarthrosis and a possible unknown bleeding disorder now s/p reinsertion of spinal instrumentation on 08/09/[address] Ha. Doing well postoperatively. Goals for today: - Work with therapies; stand and walk - Lidocaine gtt will time out this AM - Ok to transfer to floor when deemed medically stable to do so PICU Primary Activity: Up with assist until independent. No excessive bending or twisting. No lifting >10 lbs x 6 weeks. Julianne lift approved for transfers. Keep back straight if using lift. Weight bearing status: WBAT. Pain management: Transition from IV to PO as tolerated. No NSAIDs. Antibiotics: Ancef x24hrs postop - completed Diet: Begin with clear fluids and progress diet as tolerated. Supplement calcium + vitamin D. DVT prophylaxis: SCDs only. No chemical DVT ppx needed. Hematology following. Imaging: XR Upright - will order after HV removed. Labs: labs per primary team. Bracing/Splinting: None. Dressings: Keep dressing c/d/i x 7 days. Drains: Document output per shift, will be discontinued at Orthopedic Surgery discretion. Cortez catheter: Voiding w/o Cortez. Physical Therapy/Occupational Therapy: Eval and treat. Consults: Orthopedics, Hematology, Endocrinology. Follow-up: Clinic with Dr. Ha in 6 weeks with repeat x-rays. Disposition: Pending progress with therapies, pain control on orals, post-op imaging, and drain removal. Orthopaedics surgery staff for this patient is Dr. Ha. [ ] Drains removed. [ ] Post xrays done. Victor Hugo Talbot MD PGY5 Pager: [phone] Please page me directly with any questions/concerns during regular weekday hours before 5pm. If there is no response, if it is a weekend, or if it is during evening hours then please page the orthopaedic surgery resident early education teacher as listed on [facility] call schedule under the orthopaedics tab. FOLLOWUP: Future Appointments Date Time Provider Department Center 09/22/2020 8:30 AM Catina Ha MD [facility] 10/27/2020 2:30 PM Catina Ha MD [facility] HOLOGY DEPARTMENT CHAIR Azar Cruz MD - 08/10/2020 9:41 PM CST [facility]?? Inpatient Progress Note - Hematology Date of Visit: 08/10/2020 Date of Admission: 08/09/2020 Consult Requested by: Eleanor Dooley MD, PICU Reason for Consult: Hemostasis management recommendations in the setting of suspected bleeding disorder Assessment & Plan Dakota Casiano is a 20 year old female admitted on 08/09/2020. She has a history of tethered cord and severe scoliosis s/p multiple repairs but after one of the procedures in January 2016, she had significantunexpected blood loss that has led, over the last 4+ years, to a bleeding disorder workup for which the diagnosis remains elusive. She had mild platelet dysfunction on an aggregation study, with a second mildly abnormal wave in response to epinephrine 3 months ago. While this finding and her symptoms were consistent with the rare [place] platelet disorder, genetic testing was not consistent with the known genetics of that diagnosis. 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 I was present during the full procedure to help monitor hemostasis using clinical course and lab outcomes combined with an infusion of tranexamic acid, all of which went well. She was subsequently extubated and transferred to the PICU where she is recovering now. She does have a drain in place in the incision site. Recommendations -Continue TXA 10 mg/kg q6h IV until able to take PO. At that point, when taking oral medications, I would switch to 1 gram PO TXA q6h for a planned total of 7 days. Dose can increase to 1.5 grams if TEG suggests hyperfibrinolysis or her bleeding output is higher than expected. -Continue labs q6h today: CBC, INR/PTT/Fibrinogen and TEG without heparinase for all labs. Fibrinogen goal >150. Can space TEGs out to daily if unchanged overnight. Labs can be spaced to q8-q12 as long as bleeding is minimal and clinical stability is maintained. -If bleeding output is higher than expected despite TXA, then platelet transfusion (given her uncertain platelet disorder) would be warranted. I will continue to follow her course daily. Please feel free to reach out with any questions. The patient's care plan was discussed with the Primary team during the day. I discussed the plan with Dakota and her mom today. Azar Cruz MD Pediatric Guest Associate Division of Pediatric Hematology/Oncology [facility] Pager: [facility]?? Interval History Dakota said she has been in a lot of pain overnight, more than she expected to be in, though she thinks some of that may be because she didn't expect to have more hardware put in. No numbness or weakness in legs. Drain output light this AM, having slowed from late yesterday. UOP has been good. She has taken a few things PO but is still quite nauseous. Mom is happy about the lack of bleeding at this time and voiced understanding for the TXA plan. ROS: positive for back pain and nausea. Negative for weakness or paresthesias, JENSEN, vision changes orbleeding outside of drain. History of Present Illness Dakota Casiano is a 20 year old female with a long history of severe scoliosis who has undergone several procedures for repair. She was undergoing hardware removal today due to significant pain issues. During the last 5 years with multiple procedures, she has had a significant multi-site hematology workup because back in January 2016, when she underwent spinal decortication after tethered cord repair at an outside hospital, she had a significant blood loss that was unexpected given the procedure. She wasgiven pRBC and platelets during that event with little improvement. This event has precipitated workup at [facility], [place], and [facility] where she was found to have an ill-defined platelet defect, though genetics have been unrevealing to date. Interestingly, she has gone spinal repairs and hardware manipulation before and after that difficult procedure, both with and without antifibrinolytics being used. These events paint a puzzling picture of what triggered her major bleeding episode, and most of her hemostasis testing has been normal, but aggregometry shows a mildly abnormal response to epinephrine which up until a week or two ago was thought to possibly be [place] platelet disorder (targeted genetictesting was negative). She has been healthy recently but has had lots of back pain. It has been considered to be due to the hardware, potentially as a hypersensitivity, so she underwent the procedure to day to see if this would improve her pain. 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 Her bleeding history and surgical course have been extensively documented by Dr. Mariposa Atwood on 08/08/2020 and thus will not be re-copied here. Past Medical History I have reviewed this patient's medical history and updated it with pertinent information if needed. Past Medical History: Diagnosis Date ??? PONV (postoperative nausea and vomiting) ??? Scoliosis Tethered cord, now repaired Significant bleeding event during a prior spine surgery January 2016 Suspected primary hemostasis/platelet disorder, not yet defined. Past Surgical History Several spinal surgeries in the past Social History I have reviewed this patient's social history and updated it with pertinent information if needed. Social History Tobacco Use ??? Smoking status: Never Smoker ??? Smokeless tobacco: Never Used Substance Use Topics ??? Alcohol use: Not Currently ??? Drug use: Not Currently Family History I have reviewed this patient's family history and updated it with pertinent information if needed. (copied from her primary state comptroller's recent note Aug 2020) Dad with nosebleeds, but no surgeries (orphaned so no other history) Mom with heavy periods, no bruising, no issues with surger Maternal Aunt with Type IIa vWD from [facility] records Medications Medications Prior to Admission Medication Sig Dispense Refill Last Dose ??? cholecalciferol (VITAMIN D3) 125 mcg (5000 units) capsule Take by mouth daily 08/08/2020 at Unknown time ??? cyclobenzaprine (FLEXERIL) 5 MG tablet Take 1 tablet by mouth 2 times daily 08/08/2020 at Unknown time ??? HYDROcodone-acetaminophen (NORCO) 5-325 MG tablet Take 1 tablet by mouth every 6 hours as neededPast Week at Unknown time ??? Norethindrone Acet-Ethinyl Est (LOESTRIN 08/24, , PO) Take by mouth daily 08/08/2020 at Unknown time ??? sertraline (ZOLOFT) 100 MG tablet Take 100 mg by mouth daily Allergies Allergies Allergen Reactions ??? Dust Mites Itching Other reaction(s): Itching,Watering Eyes ??? Hydromorphone Other (See Comments) Pt did not remember what happened, she became very angry and aggressive Just the pill form. Pt did not remember what happened, she became very angry and aggressive Physical Exam Vital Signs: Temp: 98.1 ??F (36.7 ??C) Temp src: Axillary BP: 98/61 Pulse: 71 Resp: 19 SpO2: 99 % X3Dsliif: None (Room air) Weight: 120 lbs 9.47 oz Exam: Constitutional: lying on her side in bed, appears uncomfortable Head: Normocephalic. No masses, lesions, tenderness or abnormalities Neck: Neck supple. Respiratory: Good diaphragmatic excursion. No labored breathing. On RA Musculoskeletal: extremities normal- no gross deformities noted, drain in lower midline back with scant drainage Skin: no suspicious lesions or rashes, no bruising noted Neurologic: Sensation grossly WNL. Psychiatric: she appeared uncomfortable and a bit sleepy but mentation appears normal Data Results for orders placed or performed during the hospital encounter of 08/09/20 (from the past 24 hour(s)) CBC with platelets Result Value Ref Range WBC 12.1 (H) 4.0 - 11.0 10e9/L RBC Count 3.38 (L) 3.8 - 5.2 10e12/L Hemoglobin 10.4 (L) 11.7 - 15.7 g/dL Hematocrit 30.3 (L) 35.0 - 47.0 % MCV 90 78 - 100 fl MCH 30.8 26.5 - 33.0 pg MCHC 34.3 31.5 - 36.5 g/dL RDW 12.1 10.0 - 15.0 % Platelet Count 211 150 - 450 10e9/L TEG without Heparinase Result Value Ref Range R time until clot forms 3.1 (L) 5 - 10 Minute K time to spec clot strength 1.1 1 - 3 Minute Angle rate of clot strength 74.3 (H) 53 - 72 Degrees MA maximum clot strength 63.9 50 - 70 mm CI hypercoagulation index 3.3 (H) 0.0 - 3.0 Ratio G actual clot strength 8.8 4.5 - 11.0 Kd/sc LY30 lysis at 30 minutes 2.1 0 - 8 % LY60 lysis at 60 minutes 5.5 0 - 15 % INR Result Value Ref Range INR 1.11 0.86 - 1.14 Partial thromboplastin time Result Value Ref Range PTT 26 22 - 37 sec Fibrinogen activity Result Value Ref Range Fibrinogen 206 200 - 420 mg/dL TEG without Heparinase Result Value Ref Range R time until clot forms 2.6 (L) 5 - 10 Minute K time to spec clot strength 1.0 1 - 3 Minute Angle rate of clot strength 76.9 (H) 53 - 72 Degrees MA maximum clot strength 64.1 50 - 70 mm CI hypercoagulation index 3.8 (H) 0.0 - 3.0 Ratio G actual clot strength 8.9 4.5 - 11.0 Kd/sc LY30 lysis at 30 minutes 2.4 0 - 8 % LY60 lysis at 60 minutes 5.7 0 - 15 % Partial thromboplastin time Result Value Ref Range PTT 28 22 - 37 sec INR Result Value Ref Range INR 1.15 (H) 0.86 - 1.14 Fibrinogen activity Result Value Ref Range Fibrinogen 238 200 - 420 mg/dL CBC with platelets Result Value Ref Range WBC 13.8 (H) 4.0 - 11.0 10e9/L RBC Count 3.32 (L) 3.8 - 5.2 10e12/L Hemoglobin 10.1 (L) 11.7 - 15.7 g/dL Hematocrit 29.9 (L) 35.0 - 47.0 % MCV 90 78 - 100 fl MCH 30.4 26.5 - 33.0 pg MCHC 33.8 31.5 - 36.5 g/dL RDW 12.3 10.0 - 15.0 % Platelet Count 202 150 - 450 10e9/L Fibrinogen activity Result Value Ref Range Fibrinogen 274 200 - 420 mg/dL INR Result Value Ref Range INR 1.17 (H) 0.86 - 1.14 Partial thromboplastin time Result Value Ref Range PTT 30 22 - 37 sec CBC with platelets Result Value Ref Range WBC 11.4 (H) 4.0 - 11.0 10e9/L RBC Count 3.26 (L) 3.8 - 5.2 10e12/L Hemoglobin 10.1 (L) 11.7 - 15.7 g/dL Hematocrit 29.5 (L) 35.0 - 47.0 % MCV 91 78 - 100 fl MCH 31.0 26.5 - 33.0 pg MCHC 34.2 31.5 - 36.5 g/dL RDW 12.3 10.0 - 15.0 % Platelet Count 182 150 - 450 10e9/L TEG without Heparinase Result Value Ref Range R time until clot forms 3.2 (L) 5 - 10 Minute K time to spec clot strength 1.1 1 - 3 Minute Angle rate of clot strength 75.6 (H) 53 - 72 Degrees MA maximum clot strength 62.8 50 - 70 mm CI hypercoagulation index 3.1 (H) 0.0 - 3.0 Ratio G actual clot strength 8.4 4.5 - 11.0 Kd/sc LY30 lysis at 30 minutes 2.8 0 - 8 % LY60 lysis at 60 minutes 6.3 0 - 15 % PEDS Integrative Health IP Consult: Patient to be seen: Routine within 24 hrs; Call back #: [phone] [phone]; anxiety, acute and chronic pain; Residential Mental Health Worker may enter orders: Yes; Requesting provider? Attending physician Estee Acharya CNP 08/10/2020 2:30 PM Pediatric Integrative Medicine Initial Consultation Primary Care provider: Josh Carrero Consulting Provider: Rosalind Tavera MD Reason for consultation: I was asked to see this patient for anxiety and [id number] pain. Assessment: Dakota is a 20 year old female patient with a history of tethered cord, scoliosis??s/p spinal fusion, and complex platelet disorder??who is post-op and experiencing nausea and back pain. Plan: 1. Introduced the [facility] Program and the different services we can provide. 2. Nausea Acu-magnet placed on right acupressure point P6 (right wrist) indicated for nausea. Please remove on 08/13 @ 1400. Acu-magnet care and removal: acu-magnets may remain in place for 72 hours. Skin site should be checked daily and they should be removed earlier if pain, discomfort, redness, or swelling, need for MRI, placement of a pacemaker, or use of a pump which has internal magnetic components. Notify Radiology if XRay or CT is required and there is an external acu-magnet in the radiologic field. 3. Introduced relaxation techniques such as deep breathing and guided imagery but patient fell asleep. Patient chose beach as place where she is relaxed and peaceful. Will continue tomorrow. Follow-up: We will continue to support during this admission as is clinically possible. History of Present Illness: Dakota Casiano is a 20 year old female with a history of tethered cord, scoliosis??s/p spinal fusion, and complex platelet disorder??post-op for??planned procedure to remove her??spinal instrumentation due to pain and concern for metal hypersensitivity. 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 She requires PICU admission post-op for close??hemodynamic??monitoring, hematologic monitoring given unclear hematologic disorder, and pain control. She is accompanied at this visit by her mother and father. Parents report that Dakota is experiencing extreme nausea and discomfort. Dakota agrees with this report. She states her worst symptom is her all-over back pain. She states there is no specific area, that her entire back is painful. She also states that all she wants to do right now is sleep. Review of systems: The Comprehensive ROS was performed and is negative except as noted below and in the HPI. Previous CAM experience: Parents report that patient has experience with multiple pain and integrative teams during previous surgeries. She has not found aromatherapy and deep breathing to be helpful (per parent report). ALLERGIES: Allergies Allergen Reactions ??? Dust Mites Itching Other reaction(s): Itching,Watering Eyes ??? Hydromorphone Other (See Comments) Pt did not remember what happened, she became very angry and aggressive Just the pill form. Pt did not remember what happened, she became very angry and aggressive IMMUNIZATIONS: There is no immunization history on file for this patient. CURRENT MEDICATIONS: Current Facility-Administered Medications Medication ??? acetaminophen (TYLENOL) tablet 650 mg ??? calcium carbonate (TUMS) chewable tablet 500 mg ??? cholecalciferol (VITAMIN D3) 125 mcg (5000 units) capsule 125 mcg ??? diazepam (VALIUM) injection 2.5 mg ??? heparin in 0.9% NaCl 50 unit/50 mL infusion ??? hydrOXYzine 25 mg in D5W injection PEDS/NICU ??? lactated ringers infusion ??? lidocaine (LMX4) cream ??? lidocaine 400 mg in D5W 50 mL (ADULT STD) - for ANALGESIA ??? morphine 1 mg/ml bolus from infusion pump 1 mg ??? Morphine Sulfate (PF) 1 mg/mL in sodium chloride 0.9 % 30 mL PEDS infusion ??? naloxone (NARCAN) injection 0.4 mg ??? norethindrone-ethinyl estradiol (MICROGESTIN 08/24) 1-20 MG-MCG per tablet 1 tablet ??? ondansetron (ZOFRAN) injection 4 mg ??? polyethylene glycol (MIRALAX) Packet 17 g ??? scopolamine (TRANSDERM-SCOP) Patch in Place ??? scopolamine (TRANSDERM-SCOP) patch REMOVAL ??? sennosides (SENOKOT) tablet 8.6 mg ??? sertraline (ZOLOFT) tablet 100 mg ??? sodium chloride 0.9 % with papaverine 6 mg infusion ??? tranexamic acid (CYKLOKAPRON) bolus 500 mg PAST MEDICAL HISTORY: Active Ambulatory Problems Diagnosis Date Noted ??? 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 Other secondary scoliosis, thoracolumbar region 05/05/2020 ??? Tethered cord (H) 05/05/2020 Resolved Ambulatory Problems Diagnosis Date Noted ??? No Resolved Ambulatory Problems Past Medical History: Diagnosis Date ??? PONV (postoperative nausea and vomiting) ??? Scoliosis PAST SURGICAL HISTORY: Past Surgical History: Procedure Laterality Date ??? EXPLORE SPINE, REMOVE HARDWARE, COMBINED N/A 08/09/2020 Procedure: Reinsert Segmental Instrumentation Thoracic 4 - Lumbar 4, pseudarthrosis repair four sites, image guided surgery, Scar Revision, Skin Biopsy; Surgeon: Catina Ha MD; Location: [facility] OR ??? OPTICAL TRACKING SYSTEM FUSION SPINE POSTERIOR THORACIC CHILD THREE+ LEVELS 08/09/2020 Procedure: Optical tracking system fusion spine posterior thoracic child three+ levels; Surgeon: Catina Ha MD; Location: [facility] OR FAMILY HISTORY: History reviewed. No pertinent family history. SOCIAL HISTORY: Social History Social History Narrative ??? Not on file Physical Exam: Temp: [98.1 ??F (36.7 ??C)-98.8 ??F (37.1 ??C)] 98.5 ??F (36.9 ??C) Pulse: [59-94] 79 Resp: [10-32] 32 MAP: [67 mmHg-95 mmHg] 84 mmHg Arterial Line BP: (78-127)/(53-90) 97/72 SpO2: [92 %-100 %] 100 % BP 93/48 Pulse 79 Temp 98.5 ??F (36.9 ??C) (Oral) Resp (!) 32 Ht 1.6 m (5' 3) Wt 54.7 kg (120 lb 9.5 oz) SpO2 100% BMI 21.36 kg/m?? Vitals: 08/09/20 0650 Weight: 54.7 kg (120 lb 9.5 oz) @ Wt Readings from Last 3 Encounters: 08/09/20 54.7 kg (120 lb 9.5 oz) (38 %, Z= -0.30)* 07/21/20 54.3 kg (119 lb 9.6 oz) (36 %, Z= -0.35)* 05/05/20 54.3 kg (119 lb 9.6 oz) (37 %, Z= -0.32)* * Growth percentiles are based on CDC (Girls, 2-20 Years) data. Ht Readings from Last 2 Encounters: 08/09/20 1.6 m (5' 3) (31 %, Z= -0.50)* 07/21/20 1.61 m (5' 3.39) (36 %, Z= -0.35)* * Growth percentiles are based on [facility] (Girls, 2-20 Years) data. 48 %ile (Z= -0.06) based on CDC (Girls, 2-20 Years) BMI-for-age based on BMI available as of 08/09/2020. GENERAL: Alert, no acute distress. SKIN: Clear. No significant rash, abnormal pigmentation or lesions HEAD: Normocephalic. EYES: Pupils equal, round, reactive. NOSE: Nares without discharge. MOUTH: MMM LUNGS: Unlabored respirations on room air HEART: Regular rhythm. ABDOMEN: Soft, non-tender, not distended, no masses or hepatosplenomegaly EXTREMITIES: Full range of motion, no deformities or visible muscle spasms NEUROLOGICAL: Normal strength and sensation. Normal gait. No tremor. PSYCHOLOGICAL: Appropriate mood. Labs and Tests: Results for orders placed or performed during the hospital encounter of 08/09/20 (from the past 24 hour(s)) CBC with platelets Result Value Ref Range WBC 12.6 (H) 4.0 - 11.0 10e9/L RBC Count 3.41 (L) 3.8 - 5.2 10e12/L Hemoglobin 10.5 (L) 11.7 - 15.7 g/dL Hematocrit 30.8 (L) 35.0 - 47.0 % MCV 90 78 - 100 fl MCH 30.8 26.5 - 33.0 pg MCHC 34.1 31.5 - 36.5 g/dL RDW 12.1 10.0 - 15.0 % Platelet Count 203 150 - 450 10e9/L INR Result Value Ref Range INR 1.14 0.86 - 1.14 Partial thromboplastin time Result Value Ref Range PTT 26 22 - 37 sec Fibrinogen activity Result Value Ref Range Fibrinogen 205 200 - 420 mg/dL TEG without Heparinase Result Value Ref Range R time until clot forms 3.2 (L) 5 - 10 Minute K time to spec clot strength 0.8 (L) 1 - 3 Minute Angle rate of clot strength 78.4 (H) 53 - 72 Degrees MA maximum clot strength 68.3 50 - 70 mm CI hypercoagulation index 4.1 (H) 0.0 - 3.0 Ratio G actual clot strength 10.8 4.5 - 11.0 Kd/sc LY30 lysis at 30 minutes 1.2 0 - 8 % LY60 lysis at 60 minutes 3.8 0 - 15 % CBC with platelets Result Value Ref Range WBC 12.1 (H) 4.0 - 11.0 10e9/L RBC Count 3.38 (L) 3.8 - 5.2 10e12/L Hemoglobin 10.4 (L) 11.7 - 15.7 g/dL Hematocrit 30.3 (L) 35.0 - 47.0 % MCV 90 78 - 100 fl MCH 30.8 26.5 - 33.0 pg MCHC 34.3 31.5 - 36.5 g/dL RDW 12.1 10.0 - 15.0 % Platelet Count 211 150 - 450 10e9/L TEG without Heparinase Result Value Ref Range R time until clot forms 3.1 (L) 5 - 10 Minute K time to spec clot strength 1.1 1 - 3 Minute Angle rate of clot strength 74.3 (H) 53 - 72 Degrees MA maximum clot strength 63.9 50 - 70 mm CI hypercoagulation index 3.3 (H) 0.0 - 3.0 Ratio G actual clot strength 8.8 4.5 - 11.0 Kd/sc LY30 lysis at 30 minutes 2.1 0 - 8 % LY60 lysis at 60 minutes 5.5 0 - 15 % INR Result Value Ref Range INR 1.11 0.86 - 1.14 Partial thromboplastin time Result Value Ref Range PTT 26 22 - 37 sec Fibrinogen activity Result Value Ref Range Fibrinogen 206 200 - 420 mg/dL TEG without Heparinase Result Value Ref Range R time until clot forms 2.6 (L) 5 - 10 Minute K time to spec clot strength 1.0 1 - 3 Minute Angle rate of clot strength 76.9 (H) 53 - 72 Degrees MA maximum clot strength 64.1 50 - 70 mm CI hypercoagulation index 3.8 (H) 0.0 - 3.0 Ratio G actual clot strength 8.9 4.5 - 11.0 Kd/sc LY30 lysis at 30 minutes 2.4 0 - 8 % LY60 lysis at 60 minutes 5.7 0 - 15 % Partial thromboplastin time Result Value Ref Range PTT 28 22 - 37 sec INR Result Value Ref Range INR 1.15 (H) 0.86 - 1.14 Fibrinogen activity Result Value Ref Range Fibrinogen 238 200 - 420 mg/dL CBC with platelets Result Value Ref Range WBC 13.8 (H) 4.0 - 11.0 10e9/L RBC Count 3.32 (L) 3.8 - 5.2 10e12/L Hemoglobin 10.1 (L) 11.7 - 15.7 g/dL Hematocrit 29.9 (L) 35.0 - 47.0 % MCV 90 78 - 100 fl MCH 30.4 26.5 - 33.0 pg MCHC 33.8 31.5 - 36.5 g/dL RDW 12.3 10.0 - 15.0 % Platelet Count 202 150 - 450 10e9/L Fibrinogen activity Result Value Ref Range Fibrinogen 274 200 - 420 mg/dL INR Result Value Ref Range INR 1.17 (H) 0.86 - 1.14 Partial thromboplastin time Result Value Ref Range PTT 30 22 - 37 sec CBC with platelets Result Value Ref Range WBC 11.4 (H) 4.0 - 11.0 10e9/L RBC Count 3.26 (L) 3.8 - 5.2 10e12/L Hemoglobin 10.1 (L) 11.7 - 15.7 g/dL Hematocrit 29.5 (L) 35.0 - 47.0 % MCV 91 78 - 100 fl MCH 31.0 26.5 - 33.0 pg MCHC 34.2 31.5 - 36.5 g/dL RDW 12.3 10.0 - 15.0 % Platelet Count 182 150 - 450 10e9/L TEG without Heparinase Result Value Ref Range R time until clot forms 3.2 (L) 5 - 10 Minute K time to spec clot strength 1.1 1 - 3 Minute Angle rate of clot strength 75.6 (H) 53 - 72 Degrees MA maximum clot strength 62.8 50 - 70 mm CI hypercoagulation index 3.1 (H) 0.0 - 3.0 Ratio G actual clot strength 8.4 4.5 - 11.0 Kd/sc LY30 lysis at 30 minutes 2.8 0 - 8 % LY60 lysis at 60 minutes 6.3 0 - 15 % Thank you for this consultation. Please do not hesitate to contact me with any questions or concerns. I, Estee Sampson, spent a total of 20 minutes [id number] and on the unit today. Over 50% of this time was spent counseling the patient-family regarding strategies for nausea and relaxation and coordinating care with primary team and bedside RN. Estee Braden, DISPLAY AND BANNER DESIGNER, CPNP, HNB-BC Pediatric Nurse Practitioner [facility] Fibrinogen activity Result Value Ref Range Fibrinogen 350 200 - 420 mg/dL INR Result Value Ref Range INR 1.14 0.86 - 1.14 Partial thromboplastin time Result Value Ref Range PTT 31 22 - 37 sec CBC with platelets Result Value Ref Range WBC 12.9 (H) 4.0 - 11.0 10e9/L RBC Count 3.46 (L) 3.8 - 5.2 10e12/L Hemoglobin 10.5 (L) 11.7 - 15.7 g/dL Hematocrit 31.4 (L) 35.0 - 47.0 % MCV 91 78 - 100 fl MCH 30.3 26.5 - 33.0 pg MCHC 33.4 31.5 - 36.5 g/dL RDW 12.4 10.0 - 15.0 % Platelet Count 169 150 - 450 10e9/L TEG without Heparinase Result Value Ref Range R time until clot forms 3.2 (L) 5 - 10 Minute K time to spec clot strength 1.2 1 - 3 Minute Angle rate of clot strength 73.1 (H) 53 - 72 Degrees MA maximum clot strength 63.9 50 - 70 mm CI hypercoagulation index 3.0 0.0 - 3.0 Ratio G actual clot strength 8.8 4.5 - 11.0 Kd/sc LY30 lysis at 30 minutes 3.3 0 - 8 % LY60 lysis at 60 minutes 7.3 0 - 15 % HOLOGY DEPARTMENT CHAIR Eleanor Dooley MD - 08/10/2020 3:28 PM CST [facility]?? Pediatric Intensive Care Progress Note Date of Service (when I saw the patient): 08/10/2020 Assessment & Plan Dakota Casiano is a 20 year old female with a history of tethered cord, scoliosis s/p spinal fusion, and complex platelet disorder presenting POD#0 s/p planned procedure to remove her spinal instrumentation due to pain and concern for metal hypersensitivity. However, intraoperatively she was found to have four areas of pseudoarthroses requiring reinstrumentation. She requires PICU admission post-op forclose hemodynamic monitoring while on lidocaine infusion, hematologic monitoring given unclear hematologic disorder, and pain control. ?? FEN/Renal - ADAT - LR saline lock or TKO - strict I/Os, daily weights - cortez out when able to use bed card/commode ?? Respiratory Comfortable on room air - continuous pulse ox - incentive spirometry ?? Cardiovascular At risk for arrhythmia 2/2 lidocaine gtt - continuous cardiac monitoring, art line - MAP >60, SBP >90 ?? Heme/onc Complex platelet disorder Similar to [place] platelet disorder but genetic testing not consistent with this diagnosis. - Heme/Onc consulted, appreciate recs - labs Q4H (may space to Q6H later) - CBC - INR, PTT, fibrinogen - TEG w/o heparinase - fibrinogen goal >150 - may need cryoprecipitate - may need platelet transfusion if active bleeding - s/p TXA IV 30 mg/kg bolus and 10mg/kg/hr gtt intra-op - switch to 1g TXA PO q6hr. - plan for total 7 days ?? Infectious disease Antibiotic ppx - continue ancef 2g Q8H for total of 24 hours ?? GI - bowel regimen: -- Senna 8.6mg PO BID -- Miralax daily PRN if no BM ?? Nausea - scopolamine patch - zofran 4 mg Q6H PRN IV ?? Endo Unclear platelet disorder s/p significant workup. Given the pseudoarthroses, concern for collagen/bone disorder. - Endocrinolgy consulted, appreciate recs - GENERATOR WORKER OCP - GENERATOR WORKER vitamin D 125mcg PO daily ?? Neuro/Ortho Scoliosis POD#1 s/p removal of hardware (segmental spinal instrumentation T3-L4) and pseudoarthrosis repair (day of surgery 08/09/20) Pain, acute on chronic - PACCT consult - morphine gtt @ 0.5 mg/hr + 0.5 mg Q2H PRN (patient prefers over ENROBER TENDER) -- consider switching to dilaudid instead of morphine if remains too sleepy and/or pain not sufficiently treated with morphine. - lidocaine infusion @ 1 mg/kg/hr (plan to keep until 8 am on POD#2) - ortho will order follow up x-rays - valium 2.5 mg IV Q6H - hold GENERATOR WORKER flexeril 5 mg BID - tylenol 650 mg PO Q6H - neuro checks Q4H - cortez in place - monitor drain output - should be <100 mL/day per ortho - PT/OT consult - no activity/HOB restrictions ?? Psych: Anxiety - GENERATOR WORKER sertraline 100 mg daily - IV atarax 25 mg Q6H PRN ?? Diet: Advance Diet as Tolerated: Regular diet Fluids: LR + PO DVT Prophylaxis: Pneumatic Compression Devices Crotez Catheter: in place, indication: Strict 1-2 Hour I&O Code Status: Full ? Disposition Plan Expected discharge: 2 - 3 days, recommended to prior living arrangement once adequate pain management/ tolerating PO medications, clear from hematologic standpoint. ?? Patient discussed with the fellow, Dr. Leblanc, and the attending physician, Dr. Dooley. Vivi Wong, [facility] Pediatric Resident PL-2 Pager # [phone] Fellow Attestation: Dakota Casiano is a 20 yo w/ scoliosis, rare bleeding disorder, and unclear etiology for poor bone healing who remains critically ill following re- instrumentation for spinal fusion due to escalated analgesic requirement including lidocaine infusion. Undergoing strict TXA regimen for bleeding prevention as well as further workup for underlying disorder of bone metabolism. I personally examined and evaluated the patient today. All physician orders and treatments were placed at my direction. Formulated plan with the house staff team or resident(s) and agree with the findings and plan in this note. I have evaluated all laboratory values and imaging studies from the past 24 hours. Consults ongoing and ordered are: orthopedics, hematology, endocrinology, PACCT I personally managed the respiratory and hemodynamic support, metabolic abnormalities, nutritional status, antimicrobial therapy, and pain/sedation management. Ren decisions made today included: advance diet, remove cortez when able to mobilize better, continueintermittent TXA per hematology -- transition to enteral when able, space blood draws, consult PACCTand titrate analgesia as able, consult integrative medicine Procedures that will happen in the ICU today are: none The above plans and care have been discussed with pt and mother and all questions and concerns were addressed. Pt discussed w/ attending physician Dr. Dooley. Brannon Leblanc, PGY6 Critical Care Fellow Pediatric Critical Care Progress Note: Dakota Casiano remains in the critical care unit recovering from scoliosis surgery with post-op pain. I personally examined and evaluated the patient today. All physician orders and treatments were placed at my direction. I personally managed the antibiotic therapy, pain management, metabolic abnormalities, and nutritional status. I discussed the patient with the resident and I agree with the plan as outlined above. Ren decisions made today included: ADAT, monitor for arrhythmias while on lidocaine drip, TXA continues and plan to continue for 1 week post-op. TEGs q 6 hrs over next 24 hrs. I spent a total of 35 minutes providing medical care services at the bedside, on the critical care unit, reviewing laboratory values and radiologic reports for Dakota Casiano. This patient is no longer critically ill, but requires cardiac/respiratory monitoring, vital sign monitoring, temperature maintenance, enteral feeding adjustments, lab and/or oxygen monitoring by the health care team under direct physician supervision. The above plans and care have been discussed with mother. Eleanor Dooley MD Interval History No acute events overnight. No symptoms of lidocaine infusion toxicity or arrhythmias. Persistent pain throughout night though appeared to be able to sleep despite pain, and requested a total 4 morphinePRNs from 8pm - 7pm. Tolerating liquids and a few small bites of food. Intermittent nausea, with zofr an given as needed, no emesis. Not yet out of bed. No incentive spirometer use. No sign of bleeding. Physical Exam Temp: 98.5 ??F (36.9 ??C) Temp src: Oral Pulse: 79 Resp: (!) 32 SpO2: 100 % O2 Device: None (Room air) Vitals: 08/09/20 0650 Weight: 54.7 kg (120 lb 9.5 oz) Vital Signs with Ranges Temp: [98.1 ??F (36.7 ??C)-98.8 ??F (37.1 ??C)] 98.5 ??F (36.9 ??C) Pulse: [59-94] 79 Resp: [13-32] 32 MAP: [67 mmHg-95 mmHg] 84 mmHg Arterial Line BP: (78-127)/(53-90) 97/72 SpO2: [92 %-100 %] 100 % I/O last 3 completed shifts: In: 2863.26 [P.O.:635; I.V.:2228.26] Out: 3300 [Urine:3290; Drains:10] General: Awake, alert, lying calmly in bed, well-nourished, well-developed, afebrile Head: Atraumatic Skin: no rashes or lesions noted. Non-diaphoretic. Eyes: EOM grossly intact, PERRL, conjunctivae clear, white sclerae Nose: no drainage or congestion Mouth: MMM, no oral lesions noted Chest: Lungs CTAB, no increased work of breathing CV: RRR, normal S1/S2, no murmurs noted; peripheral pulses 2+, cap refill <2 sec Abdomen: soft, nontender, nondistended Back: dressing in place over spine and b/l paraspinal muscles, c/d/i. Extremities: warm and well perfused, no deformities noted Neuro: wakes appropriately with exam, responsive, moving all extremities Medications ??? heparin in 0.9% NaCl 50 unit/50mL ??? lactated ringers 10 mL/hr at 08/10/20 1102 ??? lidocaine (for analgesia) 1 mg/kg/hr (08/10/20 0734) ??? morphine 1 mg/mL infusion PEDS/NICU LESS than 20 kg 0.5 mg/hr (08/10/20 0734) ??? IV infusion builder /PEDS (commercially made base solution + custom additives) 1 mL/hr at 08/10/20 0240 ??? acetaminophen 650 mg Oral Q6H ??? calcium carbonate 500 mg Oral Daily ??? cholecalciferol 125 mcg Oral Daily ??? diazepam 2.5 mg Intravenous Q6H ??? norethindrone-ethinyl estradiol 1 tablet Oral Daily ??? scopolamine Transdermal Q8H ??? [START ON 08/11/2020] scopolamine Transdermal Once ??? sennosides 8.6 mg Oral BID ??? sertraline 100 mg Oral Daily ??? tranexamic acid (CYKLOKAPRON) bolus PEDS 500 mg Intravenous Q6H Data Results for orders placed or performed during the hospital encounter of 08/09/20 (from the past 24 hour(s)) CBC with platelets Result Value Ref Range WBC 12.6 (H) 4.0 - 11.0 10e9/L RBC Count 3.41 (L) 3.8 - 5.2 10e12/L Hemoglobin 10.5 (L) 11.7 - 15.7 g/dL Hematocrit 30.8 (L) 35.0 - 47.0 % MCV 90 78 - 100 fl MCH 30.8 26.5 - 33.0 pg MCHC 34.1 31.5 - 36.5 g/dL RDW 12.1 10.0 - 15.0 % Platelet Count 203 150 - 450 10e9/L INR Result Value Ref Range INR 1.14 0.86 - 1.14 Partial thromboplastin time Result Value Ref Range PTT 26 22 - 37 sec Fibrinogen activity Result Value Ref Range Fibrinogen 205 200 - 420 mg/dL TEG without Heparinase Result Value Ref Range R time until clot forms 3.2 (L) 5 - 10 Minute K time to spec clot strength 0.8 (L) 1 - 3 Minute Angle rate of clot strength 78.4 (H) 53 - 72 Degrees MA maximum clot strength 68.3 50 - 70 mm CI hypercoagulation index 4.1 (H) 0.0 - 3.0 Ratio G actual clot strength 10.8 4.5 - 11.0 Kd/sc LY30 lysis at 30 minutes 1.2 0 - 8 % LY60 lysis at 60 minutes 3.8 0 - 15 % CBC with platelets Result Value Ref Range WBC 12.1 (H) 4.0 - 11.0 10e9/L RBC Count 3.38 (L) 3.8 - 5.2 10e12/L Hemoglobin 10.4 (L) 11.7 - 15.7 g/dL Hematocrit 30.3 (L) 35.0 - 47.0 % MCV 90 78 - 100 fl MCH 30.8 26.5 - 33.0 pg MCHC 34.3 31.5 - 36.5 g/dL RDW 12.1 10.0 - 15.0 % Platelet Count 211 150 - 450 10e9/L TEG without Heparinase Result Value Ref Range R time until clot forms 3.1 (L) 5 - 10 Minute K time to spec clot strength 1.1 1 - 3 Minute Angle rate of clot strength 74.3 (H) 53 - 72 Degrees MA maximum clot strength 63.9 50 - 70 mm CI hypercoagulation index 3.3 (H) 0.0 - 3.0 Ratio G actual clot strength 8.8 4.5 - 11.0 Kd/sc LY30 lysis at 30 minutes 2.1 0 - 8 % LY60 lysis at 60 minutes 5.5 0 - 15 % INR Result Value Ref Range INR 1.11 0.86 - 1.14 Partial thromboplastin time Result Value Ref Range PTT 26 22 - 37 sec Fibrinogen activity Result Value Ref Range Fibrinogen 206 200 - 420 mg/dL TEG without Heparinase Result Value Ref Range R time until clot forms 2.6 (L) 5 - 10 Minute K time to spec clot strength 1.0 1 - 3 Minute Angle rate of clot strength 76.9 (H) 53 - 72 Degrees MA maximum clot strength 64.1 50 - 70 mm CI hypercoagulation index 3.8 (H) 0.0 - 3.0 Ratio G actual clot strength 8.9 4.5 - 11.0 Kd/sc LY30 lysis at 30 minutes 2.4 0 - 8 % LY60 lysis at 60 minutes 5.7 0 - 15 % Partial thromboplastin time Result Value Ref Range PTT 28 22 - 37 sec INR Result Value Ref Range INR 1.15 (H) 0.86 - 1.14 Fibrinogen activity Result Value Ref Range Fibrinogen 238 200 - 420 mg/dL CBC with platelets Result Value Ref Range WBC 13.8 (H) 4.0 - 11.0 10e9/L RBC Count 3.32 (L) 3.8 - 5.2 10e12/L Hemoglobin 10.1 (L) 11.7 - 15.7 g/dL Hematocrit 29.9 (L) 35.0 - 47.0 % MCV 90 78 - 100 fl MCH 30.4 26.5 - 33.0 pg MCHC 33.8 31.5 - 36.5 g/dL RDW 12.3 10.0 - 15.0 % Platelet Count 202 150 - 450 10e9/L Fibrinogen activity Result Value Ref Range Fibrinogen 274 200 - 420 mg/dL INR Result Value Ref Range INR 1.17 (H) 0.86 - 1.14 Partial thromboplastin time Result Value Ref Range PTT 30 22 - 37 sec CBC with platelets Result Value Ref Range WBC 11.4 (H) 4.0 - 11.0 10e9/L RBC Count 3.26 (L) 3.8 - 5.2 10e12/L Hemoglobin 10.1 (L) 11.7 - 15.7 g/dL Hematocrit 29.5 (L) 35.0 - 47.0 % MCV 91 78 - 100 fl MCH 31.0 26.5 - 33.0 pg MCHC 34.2 31.5 - 36.5 g/dL RDW 12.3 10.0 - 15.0 % Platelet Count 182 150 - 450 10e9/L TEG without Heparinase Result Value Ref Range R time until clot forms 3.2 (L) 5 - 10 Minute K time to spec clot strength 1.1 1 - 3 Minute Angle rate of clot strength 75.6 (H) 53 - 72 Degrees MA maximum clot strength 62.8 50 - 70 mm CI hypercoagulation index 3.1 (H) 0.0 - 3.0 Ratio G actual clot strength 8.4 4.5 - 11.0 Kd/sc LY30 lysis at 30 minutes 2.8 0 - 8 % LY60 lysis at 60 minutes 6.3 0 - 15 % PEDS Integrative Health IP Consult: Patient to be seen: Routine within 24 hrs; Call back #: [phone] [id number]; anxiety, acute and chronic pain; Residential Mental Health Worker may enter orders: Yes; Requesting provider? Attending physician Narrative Estee Braden CNP 08/10/2020 2:30 PM Pediatric Integrative Medicine Initial Consultation Primary Care provider: Josh Carrero Consulting Provider: Rosalind Tavera MD Reason for consultation: I was asked to see this patient for anxiety and wwkry-yx-iyddbyc pain. Assessment: Dakota is a 20 year old female patient with a history of tethered cord, scoliosis??s/p spinal fusion, and complex platelet disorder??who is post-op and experiencing nausea and back pain. Plan: 1. Introduced the [facility] Health [facility] Wellbeing Program and the different services we can provide. 2. Nausea Acu-magnet placed on right acupressure point P6 (right wrist) indicated for nausea. Please remove on 08/13 @ 1400. Acu-magnet care and removal: acu-magnets may remain in place for 72 hours. Skin site should be checked daily and they should be removed earlier if pain, discomfort, redness, or swelling, need for MRI, placement of a pacemaker, or use of a pump which has internal magnetic components. Notify Radiology if XRay or CT is required and there is an external acu-magnet in the radiologic field. 3. Introduced relaxation techniques such as deep breathing and guided imagery but patient fell asleep. Patient chose beach as place where she is relaxed and peaceful. Will continue tomorrow. Follow-up: We will continue to support during this admission as is clinically possible. History of Present Illness: Dakota Casiano is a 20 year old female with a history of tethered cord, scoliosis??s/p spinal fusion, and complex platelet disorder??post-op for??planned procedure to remove her??spinal instrumentation due to pain and concern for metal hypersensitivity. 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 She requires PICU admission post-op for close??hemodynamic??monitoring, hematologic monitoring given unclear hematologic disorder, and pain control. She is accompanied at this visit by her mother and father. Parents report that Dakota is experiencing extreme nausea and discomfort. Dakota agrees with this report. She states her worst symptom is her all-over back pain. She states there is no specific area, that her entire back is painful. She also states that all she wants to do right now is sleep. Review of systems: The Comprehensive ROS was performed and is negative except as noted below and in the HPI. Previous CAM experience: Parents report that patient has experience with multiple pain and integrative teams during previous surgeries. She has not found aromatherapy and deep breathing to be helpful (per parent report). ALLERGIES: Allergies Allergen Reactions ??? Dust Mites Itching Other reaction(s): Itching,Watering Eyes ??? Hydromorphone Other (See Comments) Pt did not remember what happened, she became very angry and aggressive Just the pill form. Pt did not remember what happened, she became very angry and aggressive IMMUNIZATIONS: There is no immunization history on file for this patient. CURRENT MEDICATIONS: Current Facility-Administered Medications Medication ??? acetaminophen (TYLENOL) tablet 650 mg ??? calcium carbonate (TUMS) chewable tablet 500 mg ??? cholecalciferol (VITAMIN D3) 125 mcg (5000 units) capsule 125 mcg ??? diazepam (VALIUM) injection 2.5 mg ??? heparin in 0.9% NaCl 50 unit/50 mL infusion ??? hydrOXYzine 25 mg in D5W injection PEDS/NICU ??? lactated ringers infusion ??? lidocaine (LMX4) cream ??? lidocaine 400 mg in D5W 50 mL (ADULT STD) - for ANALGESIA ??? morphine 1 mg/ml bolus from infusion pump 1 mg ??? Morphine Sulfate (PF) 1 mg/mL in sodium chloride 0.9 % 30 mL PEDS infusion ??? naloxone (NARCAN) injection 0.4 mg ??? norethindrone-ethinyl estradiol (MICROGESTIN 08/24) 1-20 MG-MCG per tablet 1 tablet ??? ondansetron (ZOFRAN) injection 4 mg ??? polyethylene glycol (MIRALAX) Packet 17 g ??? scopolamine (TRANSDERM-SCOP) Patch in Place ??? scopolamine (TRANSDERM-SCOP) patch REMOVAL ??? sennosides (SENOKOT) tablet 8.6 mg ??? sertraline (ZOLOFT) tablet 100 mg ??? sodium chloride 0.9 % with papaverine 6 mg infusion ??? tranexamic acid (CYKLOKAPRON) bolus 500 mg PAST MEDICAL HISTORY: Active Ambulatory Problems Diagnosis Date Noted ??? 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 Other secondary scoliosis, thoracolumbar region 05/05/2020 ??? Tethered cord (H) 05/05/2020 Resolved Ambulatory Problems Diagnosis Date Noted ??? No Resolved Ambulatory Problems Past Medical History: Diagnosis Date ??? PONV (postoperative nausea and vomiting) ??? Scoliosis PAST SURGICAL HISTORY: Past Surgical History: Procedure Laterality Date ??? EXPLORE SPINE, REMOVE HARDWARE, COMBINED N/A 08/09/2020 Procedure: Reinsert Segmental Instrumentation Thoracic 4 - Lumbar 4, pseudarthrosis repair four sites, image guided surgery, Scar Revision, Skin Biopsy; Surgeon: Catina Ha MD; Location: [facility] OR ??? OPTICAL TRACKING SYSTEM FUSION SPINE POSTERIOR THORACIC CHILD THREE+ LEVELS 08/09/2020 Procedure: Optical tracking system fusion spine posterior thoracic child three+ levels; Surgeon: Catina Ha MD; Location: [facility] OR FAMILY HISTORY: History reviewed. No pertinent family history. SOCIAL HISTORY: Social History Social History Narrative ??? Not on file Physical Exam: Temp: [98.1 ??F (36.7 ??C)-98.8 ??F (37.1 ??C)] 98.5 ??F (36.9 ??C) Pulse: [59-94] 79 Resp: [10-32] 32 MAP: [67 mmHg-95 mmHg] 84 mmHg Arterial Line BP: (78-127)/(53-90) 97/72 SpO2: [92 %-100 %] 100 % BP 93/48 Pulse 79 Temp 98.5 ??F (36.9 ??C) (Oral) Resp (!) 32 Ht 1.6 m (5' 3) Wt 54.7 kg (120 lb 9.5 oz) SpO2 100% BMI 21.36 kg/m?? Vitals: 08/09/20 0650 Weight: 54.7 kg (120 lb 9.5 oz) @ Wt Readings from Last 3 Encounters: 08/09/20 54.7 kg (120 lb 9.5 oz) (38 %, Z= -0.30)* 07/21/20 54.3 kg (119 lb 9.6 oz) (36 %, Z= -0.35)* 05/05/20 54.3 kg (119 lb 9.6 oz) (37 %, Z= -0.32)* * Growth percentiles are based on CDC (Girls, 2-20 Years) data. Ht Readings from Last 2 Encounters: 08/09/20 1.6 m (5' 3) (31 %, Z= -0.50)* 07/21/20 1.61 m (5' 3.39) (36 %, Z= -0.35)* * Growth percentiles are based on CDC (Girls, 2-20 Years) data. 48 %ile (Z= -0.06) based on CDC (Girls, 2-20 Years) BMI-for-age based on BMI available as of 08/09/2020. GENERAL: Alert, no acute distress. SKIN: Clear. No significant rash, abnormal pigmentation or lesions HEAD: Normocephalic. EYES: Pupils equal, round, reactive. NOSE: Nares without discharge. MOUTH: MMM LUNGS: Unlabored respirations on room air HEART: Regular rhythm. ABDOMEN: Soft, non-tender, not distended, no masses or hepatosplenomegaly EXTREMITIES: Full range of motion, no deformities or visible muscle spasms NEUROLOGICAL: Normal strength and sensation. Normal gait. No tremor. PSYCHOLOGICAL: Appropriate mood. Labs and Tests: Results for orders placed or performed during the hospital encounter of 08/09/20 (from the past 24 hour(s)) CBC with platelets Result Value Ref Range WBC 12.6 (H) 4.0 - 11.0 10e9/L RBC Count 3.41 (L) 3.8 - 5.2 10e12/L Hemoglobin 10.5 (L) 11.7 - 15.7 g/dL Hematocrit 30.8 (L) 35.0 - 47.0 % MCV 90 78 - 100 fl MCH 30.8 26.5 - 33.0 pg MCHC 34.1 31.5 - 36.5 g/dL RDW 12.1 10.0 - 15.0 % Platelet Count 203 150 - 450 10e9/L INR Result Value Ref Range INR 1.14 0.86 - 1.14 Partial thromboplastin time Result Value Ref Range PTT 26 22 - 37 sec Fibrinogen activity Result Value Ref Range Fibrinogen 205 200 - 420 mg/dL TEG without Heparinase Result Value Ref Range R time until clot forms 3.2 (L) 5 - 10 Minute K time to spec clot strength 0.8 (L) 1 - 3 Minute Angle rate of clot strength 78.4 (H) 53 - 72 Degrees MA maximum clot strength 68.3 50 - 70 mm CI hypercoagulation index 4.1 (H) 0.0 - 3.0 Ratio G actual clot strength 10.8 4.5 - 11.0 Kd/sc LY30 lysis at 30 minutes 1.2 0 - 8 % LY60 lysis at 60 minutes 3.8 0 - 15 % CBC with platelets Result Value Ref Range WBC 12.1 (H) 4.0 - 11.0 10e9/L RBC Count 3.38 (L) 3.8 - 5.2 10e12/L Hemoglobin 10.4 (L) 11.7 - 15.7 g/dL Hematocrit 30.3 (L) 35.0 - 47.0 % MCV 90 78 - 100 fl MCH 30.8 26.5 - 33.0 pg MCHC 34.3 31.5 - 36.5 g/dL RDW 12.1 10.0 - 15.0 % Platelet Count 211 150 - 450 10e9/L TEG without Heparinase Result Value Ref Range R time until clot forms 3.1 (L) 5 - 10 Minute K time to spec clot strength 1.1 1 - 3 Minute Angle rate of clot strength 74.3 (H) 53 - 72 Degrees MA maximum clot strength 63.9 50 - 70 mm CI hypercoagulation index 3.3 (H) 0.0 - 3.0 Ratio G actual clot strength 8.8 4.5 - 11.0 Kd/sc LY30 lysis at 30 minutes 2.1 0 - 8 % LY60 lysis at 60 minutes 5.5 0 - 15 % INR Result Value Ref Range INR 1.11 0.86 - 1.14 Partial thromboplastin time Result Value Ref Range PTT 26 22 - 37 sec Fibrinogen activity Result Value Ref Range Fibrinogen 206 200 - 420 mg/dL TEG without Heparinase Result Value Ref Range R time until clot forms 2.6 (L) 5 - 10 Minute K time to spec clot strength 1.0 1 - 3 Minute Angle rate of clot strength 76.9 (H) 53 - 72 Degrees MA maximum clot strength 64.1 50 - 70 mm CI hypercoagulation index 3.8 (H) 0.0 - 3.0 Ratio G actual clot strength 8.9 4.5 - 11.0 Kd/sc LY30 lysis at 30 minutes 2.4 0 - 8 % LY60 lysis at 60 minutes 5.7 0 - 15 % Partial thromboplastin time Result Value Ref Range PTT 28 22 - 37 sec INR Result Value Ref Range INR 1.15 (H) 0.86 - 1.14 Fibrinogen activity Result Value Ref Range Fibrinogen 238 200 - 420 mg/dL CBC with platelets Result Value Ref Range WBC 13.8 (H) 4.0 - 11.0 10e9/L RBC Count 3.32 (L) 3.8 - 5.2 10e12/L Hemoglobin 10.1 (L) 11.7 - 15.7 g/dL Hematocrit 29.9 (L) 35.0 - 47.0 % MCV 90 78 - 100 fl MCH 30.4 26.5 - 33.0 pg MCHC 33.8 31.5 - 36.5 g/dL RDW 12.3 10.0 - 15.0 % Platelet Count 202 150 - 450 10e9/L Fibrinogen activity Result Value Ref Range Fibrinogen 274 200 - 420 mg/dL INR Result Value Ref Range INR 1.17 (H) 0.86 - 1.14 Partial thromboplastin time Result Value Ref Range PTT 30 22 - 37 sec CBC with platelets Result Value Ref Range WBC 11.4 (H) 4.0 - 11.0 10e9/L RBC Count 3.26 (L) 3.8 - 5.2 10e12/L Hemoglobin 10.1 (L) 11.7 - 15.7 g/dL Hematocrit 29.5 (L) 35.0 - 47.0 % MCV 91 78 - 100 fl MCH 31.0 26.5 - 33.0 pg MCHC 34.2 31.5 - 36.5 g/dL RDW 12.3 10.0 - 15.0 % Platelet Count 182 150 - 450 10e9/L TEG without Heparinase Result Value Ref Range R time until clot forms 3.2 (L) 5 - 10 Minute K time to spec clot strength 1.1 1 - 3 Minute Angle rate of clot strength 75.6 (H) 53 - 72 Degrees MA maximum clot strength 62.8 50 - 70 mm CI hypercoagulation index 3.1 (H) 0.0 - 3.0 Ratio G actual clot strength 8.4 4.5 - 11.0 Kd/sc LY30 lysis at 30 minutes 2.8 0 - 8 % LY60 lysis at 60 minutes 6.3 0 - 15 % Thank you for this consultation. Please do not hesitate to contact me with any questions or concerns. I, Estee Braden, spent a total of 20 minutes ithe-on-pydb and on the unit today. Over 50% of this time was spent counseling the patient-family regarding strategies for nausea and relaxation and coordinating care with primary team and bedside RN. Estee Braden, DISPLAY AND BANNER DESIGNER, CPNP, HNB- Pediatric Nurse Practitioner [facility] HOLOGY DEPARTMENT CHAIR Berenice Edgar, PT - 08/10/2020 12:48 PM CST 08/10/20 1200 Quick Adds Type of Visit Initial PT Evaluation Living Environment People in home parent(s) Current Living Arrangements house Home Accessibility stairs to enter home;stairs within home Living Environment Comments Per mom pt lives at home, stairs to enter and within house. Self-Care Usual Activity Tolerance good Current Activity Tolerance poor Regular Exercise No Equipment Currently Used at Home none Activity/Exercise/Self-Care Comment Per mom pt was IND with all ADL's prior to admisson. pt was not doing OP PT but has for several years, mom home to assist as needed. Disability/Function Hearing Difficulty or Deaf no Wear Glasses or Blind no Concentrating, Remembering or Making Decisions Difficulty no Difficulty Communicating no Difficulty Eating/Swallowing no Walking or Climbing Stairs Difficulty no Dressing/Bathing Difficulty no Toileting issues no Doing Errands Independently Difficulty (such as shopping) no Fall history within last six months no Change in Functional Status Since Onset of Current Illness/Injury yes General Information Onset of Illness/Injury or Date of Surgery 08/09/20 Patient/Family Therapy Goals Statement (PT) Pt wants to go home. Pertinent History of Current Problem (include personal factors and/or comorbidities that impact the POC) 20 year old female with PMH including scoliosis s/p multiple surgies, presented with pseudarthrosis and a possible unknown bleeding disorder now s/p reinsertion of spinal instrumentation on 08/09/[address] Ha. Doing well postoperatively Existing Precautions/Restrictions fall;spinal Weight-Bearing Status - LUE full weight-bearing Weight-Bearing Status - RUE full weight-bearing Weight-Bearing Status - LLE full weight-bearing Weight-Bearing Status - RLE full weight-bearing General Observations Activity: up ad karen Cognition Orientation Status (Cognition) oriented x 4 Affect/Mental Status (Cognition) WNL Follows Commands (Cognition) WNL Cognitive Status Comments Pt needing encouragement for participation Pain Assessment Patient Currently in Pain Yes, see Vital Sign flowsheet Integumentary/Edema Integumentary/Edema Comments Back incision covered with dressing Posture Posture Forward head position;Protracted shoulders Range of Motion (ROM) ROM Comment ROM WFL, limited in hips and trunk at eval due to pain Strength Strength Comments B LE's grossly 5/5 Bed Mobility Comment (Bed Mobility) ModA for supine>sit with log roll Transfers Transfer Safety Comments CGA-Jenny for sit<>stand Gait/Stairs (Locomotion) Comment (Gait/Stairs) Able to take steps laterally at bed with CGA Balance Balance Comments CGA for standing balance, SBA sitting at EOB Sensory Examination Sensory Perception WNL Coordination Coordination no deficits were identified Muscle Tone Muscle Tone no deficits were identified Clinical Impression Criteria for Skilled Therapeutic Intervention yes, treatment indicated;meets criteria PT Diagnosis (PT) Impaired functional mobility Influenced by the following impairments Decreased strength, balance and activity tolerance Functional limitations due to impairments Inability to complete functional mobility at baseline level of functioning Clinical Presentation Stable/Uncomplicated Clinical Presentation Rationale Medically stable, on RA Clinical Decision Making (Complexity) low complexity Therapy Frequency (PT) 2x/day Predicted Duration of Therapy Intervention (days/wks) 1 week Planned Therapy Interventions (PT) bed mobility training;balance training;postural re-education;homeexercise program;gait training;transfer training Risk & Benefits of therapy have been explained evaluation/treatment results reviewed;care plan/treatment goals reviewed;risks/benefits reviewed;current/potential barriers reviewed;participants voiced agreement with care plan;participants included;patient;mother Clinical Impression Comments Pt would benefit from IP PT to progress IND and safety with mobility toensure safety with d/c home. PT Discharge Planning PT Discharge Recommendation (DC Rec) home with assist;home with outpatient physical therapy PT Rationale for DC Rec Pt has assist from family at home PT Brief overview of current status Pt modA for bed mobility and Jenny for standing at edge of bed Total Evaluation Time Total Evaluation Time (Minutes) 10 Skin WDL Procedural focused assessment (identify areas inspected) Spine Skin WDL X Skin Color/Characteristics pale Skin Integrity bruised (ecchymotic);drain/device(s);incision HOLOGY DEPARTMENT CHAIR Victor Hugo Talbot MD - 08/10/2020 6:58 AM CST Orthopaedic Surgery Progress Note: 08/10/2020 Subjective: Incisional pain, but well controlled. No new pain, numbness, weakness in legs. Objective: BP 93/48 Pulse 64 Temp 98.6 ??F (37 ??C) (Oral) Resp 16 Ht 1.6 m (5' 3) Wt 54.7 kg (120 lb 9.5 oz) SpO2 94% BMI 21.36 kg/m?? I/O this shift: In: 923.05 [P.O.:175; I.V.:748.05] Out: 1205 [Urine:1200; Drains:5] Gen: NAD. Resting comfortably in bed. Resp: Breathing comfortably on RA. Drain: Superficial drain output of 5/5. Musculoskeletal: dressing c/d/i. Sensation from C4-L1 is preserved. Lower extremities: Motor Strength Right Left Hip flexion: L1, L2, L3 5/5 5/5 Hip adduction: L2, L3 5/5 5/5 Knee flexion: S1 5/5 5/5 Knee extension: L3, L4 5/5 5/5 Ankle dosiflexion: L4, L5 5/5 5/5 EHL: L5 5/5 5/5 Ankle plantarflexion: S1 5/5 5/5 Sensation from L1-S2 is preserved. Labs: Lab Results Component Value Date WBC 13.8 (H) 08/10/2020 HGB 10.1 (L) 08/10/2020 PLT 202 08/10/2020 INR 1.15 (H) 08/10/2020 Assessment & Plan: Dakota Casiano is a 20 year old female with PMH including scoliosis s/p multiple surgies, presented with pseudarthrosis and a possible unknown bleeding disorder now s/p reinsertion of spinal instrumentation on 08/09/[address] Ha. Doing well postoperatively. Goals for today: - Work with therapies; stand and walk - Remove Cortez if medically appropriate per PICU PICU Primary Activity: Up with assist until independent. No excessive bending or twisting. No lifting >10 lbs x 6 weeks. Julianne lift approved for transfers. Keep back straight if using lift. Weight bearing status: WBAT. Pain management: Transition from IV to PO as tolerated. No NSAIDs. Antibiotics: Ancef x24hrs postop. Diet: Begin with clear fluids and progress diet as tolerated. Supplement calcium + vitamin D. DVT prophylaxis: SCDs only. No chemical DVT ppx needed. Hematology following. Imaging: XR Upright - will order when transfers out of PICU. Labs: labs per primary team. Bracing/Splinting: None. Dressings: Keep dressing c/d/i x 7 days. Drains: Document output per shift, will be discontinued at Orthopedic Surgery discretion. Cortez catheter: Ok to remove today from Ortho perspective. Physical Therapy/Occupational Therapy: Eval and treat. Consults: Orthopedics, Hematology, Endocrinology. Follow-up: Clinic with Dr. Ha in 6 weeks with repeat x-rays. Disposition: Pending progress with therapies, pain control on orals, post-op imaging, and drain removal. Orthopaedics surgery staff for this patient is Dr. Ha. [ ] Drains removed. [ ] Post xrays done. Victor Hugo Talbot MD PGY5 Pager: [phone] Please page me directly with any questions/concerns during regular weekday hours before 5pm. If there is no response, if it is a weekend, or if it is during evening hours then please page the orthopaedic surgery resident early education teacher as listed on [facility] call schedule under the orthopaedics tab. FOLLOWUP: Future Appointments Date Time Provider Department Center 09/22/2020 8:30 AM Catina Ha MD [facility] 10/27/2020 2:30 PM Catina Ha MD [facility] HOLOGY DEPARTMENT CHAIR Merissa Pradhan MD - 08/09/2020 9:00 PM CST Images from the original note were not included. Pediatric Critical Care Night Note: Dakota Casiano is a 20 year old female with a history of tethered cord, scoliosis s/p spinal fusion, and complex platelet disorder presenting POD#0 s/p planned procedure to remove her spinal instrumentation due to pain and concern for metal hypersensitivity. However, intraoperatively she was found to have four areas of pseudoarthroses requiring reinstrumentation. She requires PICU admission post-op forclose hemodynamic monitoring, hematologic monitoring given unclear hematologic disorder, and pain control. Interval events:pain control ongoing VITALS: Pulse Av.5 Min: 59 Max: 112 Arterial Line BP: (78-127)/(48-90) 106/90 MAP: [64 mmHg-95 mmHg] 95 mmHg BP - Mean: [63] 63 Systolic (24hrs), Av , Min:93 , Max:121 Diastolic (24hrs), Av, Min:48, Max:73 Resp Av.6 Min: 10 Max: 34 SpO2 Av.4 % Min: 92 % Max: 100 % I/O: I/O last 3 completed shifts: In: 2662.3 [P.O.:100; I.V.:2189.3; Other:123] Out: 1090 [Urine:765; Drains:5; Blood:320] I/O this shift: In: 749.75 [P.O.:100; I.V.:649.75] Out: 875 [Urine:875] Medications: All medications reviewed Ren physical exam findings:moves lower extremities. Stable MELBA drainage. Labs: Recent Labs Lab Test 08/09/20 1345 08/09/20 0950 NA 139 138 POTASSIUM 3.7 3.5 CHLORIDE 106 -- CO2 25 -- ANIONGAP 8 -- GLC 164* 149* BUN 12 -- CR 0.66 -- IMELDA 7.9* -- No results found for: LACT, Recent Labs Lab Test 08/09/20 0950 08/09/20 0845 PH 7.45 7.47* PCO2 33* 35 PO2 183* 305* HCO3 23 25 No results for input(s): PHV, PCO2V, PO2V, HCO3V in the last 74879 hours. Recent Labs Lab Test 08/10/20 0400 08/09/20 2200 WBC 13.8* 12.1* HGB 10.1* 10.4* HCT 29.9* 30.3* MCV 90 90 RDW 12.3 12.1 PLT 202 211 Lab Results Component Value Date INR 1.15 08/10/2020 , Lab Results Component Value Date PTT 28 08/10/2020 Additions/changes to plan include: 1) follow hgb/TEG per state comptroller. 2) ongoing pain control effective. 3) PACTT to see in am I spent a total of 35 minutes providing critical care services at the bedside, and on the critical care unit, evaluating the patient, directing care and reviewing laboratory values and radiologic reports for Dakota Casiano. Merissa Pradhan MD HOLOGY DEPARTMENT CHAIR Victor Hugo Talbot MD - 08/09/2020 2:24 PM CST Post op check: Complaints of incisional pain, no radicular pain. Pain well managed at this time. BP 121/73 (BP Location: Right arm) Pulse 112 Temp 98.8 ??F (37.1 ??C) (Axillary) Resp 12 Ht 1.6 m (5' 3) Wt 54.7 kg (120 lb 9.5 oz) SpO2 100% BMI 21.36 kg/m?? I/O this shift: In: 1596.06 [I.V.:1223.06; Other:123] Out: 520 [Urine:200; Blood:320] Gen: NAD. Resting comfortably in bed Resp: Breathing comfortably on RA. Musculoskeletal: Sensation from C4-L1 is preserved. Lower extremities: Motor Strength Right Left Hip flexion: L1, L2, L3 5/5 5/5 Hip adduction: L2, L3 5/5 5/5 Knee flexion: S1 5/5 5/5 Knee extension: L3, L4 5/5 5/5 Ankle dosiflexion: L4, L5 5/5 5/5 EHL: L5 5/5 5/5 Ankle plantarflexion: S1 5/5 5/5 Sensation from L1-S2 is preserved. Plan: Continue with current cares. Victor Hugo Talbot MD PGY5 HOLOGY DEPARTMENT CHAIR documented in this encounter H&P Notes Eleanor Dooley MD - 08/09/2020 3:15 PM CST [facility]?? History and Physical - Pediatric ICU Service Date of Admission: 08/09/2020 Assessment & Plan Dakota Casiano is a 20 year old female with a history of tethered cord, scoliosis s/p spinal fusion, and complex platelet disorder presenting POD#0 s/p planned procedure to remove her spinal instrumentation due to pain and concern for metal hypersensitivity. However, intraoperatively she was found to have four areas of pseudoarthroses requiring reinstrumentation. She requires PICU admission post-op forclose hemodynamic monitoring, hematologic monitoring given unclear hematologic disorder, and pain control. FEN/Renal - ADAT - mIVF with LR at 90 mL/hr - strict I/Os, daily weights - BMP, Mg, Ph, iCa, prealbumin on admission Respiratory Comfortable on room air - continuous pulse ox - incentive spirometry Cardiovascular #At risk for arrhythmia 2/2 lidocaine gtt - continuous cardiac monitoring, art line - MAP >60, SBP >90 Heme/onc #Complex platelet disorder Similar to [place] platelet disorder but genetic testing not consistent with this diagnosis. - Heme/Onc consulted, appreciate recs - labs Q4H (may space to Q6H later) - CBC - INR, PTT, fibrinogen - TEG w/o heparinase - fibrinogen goal >150 - may need cryoprecipitate - may need platelet transfusion if active bleeding - s/p TXA IV 30 mg/kg bolus and 10mg/kg/hr gtt intra-op - continue IV TXA 10 mg/kg Q6H - when able to take PO, transition to 10 mg/kg Q6H PO - plan for total 7 days Infectious disease #Antibiotic ppx - continue ancef 2g Q8H for total of 24 hours GI - plan to start bowel regimen in AM when eating #Nausea - scopolamine patch - zofran 4 mg Q6H PRN IV Endo Unclear platelet disorder s/p significant workup. Given the pseudoarthroses, concern for collagen/bone disorder. - Endocrinolgy consulted, appreciate recs - GENERATOR WORKER OCP - GENERATOR WORKER vitamin D 125mcg PO daily Neuro/Ortho #Scoliosis #POD#0 s/p removal of hardware (segmental spinal instrumentation T3-L4) and pseudoarthrosis repair #Pain, acute on chronic - morphine gtt @ 0.5 mg/hr + 1 mg Q2H PRN (patient prefers over ENROBER TENDER) - lidocaine infusion @ 1 mg/kg/hr (plan to keep until 8 am on POD#2) - ortho will order follow up x-rays - valium 2.5 mg IV Q6H - hold GENERATOR WORKER flexeril 5 mg BID - tylenol 650 mg PO Q6H - neuro checks Q4H - cortez in place - monitor drain output - should be <100 mL/day per ortho - PT/OT consult - no activity/HOB restrictions - consult PACCT in AM Psych: #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 Patient discussed with the fellow, Dr. Leblanc, and the attending physician, Dr. Dooley. 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 This is in the setting of an ill defined coagulation disorder with history of prior intra-op bleeding. I personally examined and evaluated the patient today. All physician orders and treatments were placed at my direction. Formulated plan with the house staff team or resident(s) and agree with the findings and plan in this note. I have evaluated all laboratory values and imaging studies from the past 24 hours. Consults ongoing and ordered are Orthopedics I personally managed the respiratory and hemodynamic support, metabolic abnormalities, nutritional status, antimicrobial therapy, and pain/sedation management. Ren decisions made today included start morphine (drip and RN administered prn doses per patient request), valium, and scheduled tylenol for pain. Q 4 hr coag labs given plt disorder and close monitoring of post-op drainage out put. Procedures that will happen in the ICU today are: none The above plans and care have been discussed with parents and all questions and concerns were addressed. I spent a total of 45 minutes providing critical care services at the bedside, and on the critical care unit, evaluating the patient, directing care and reviewing laboratory values and radiologic reports for Dakota Casiano. Eleanor Dooley MD Chief Complaint Planned procedure with Dr. Ha History is obtained from the patient's parent(s), EMR History of Present Illness Dakota Casiano is a 20 year old female with a history of tethered cord, scoliosis s/p spinal fusion, and complex platelet disorder presenting POD#0 s/p planned procedure with Dr. Ha to remove her spinal instrumentation due to severe pain and concern for metal hypersensitivity. Dakota's previous instrumentation was a cobalt chrome and titanium mixture. 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 The new metal is all titanium. Growth factor was added to help with healing. Per mom Dakota had 1.5 years between two previous spinal fusions where she also hadn't healed. Dakota has had 9-10 ortho surgeries per mom. Her last spinal fusion was in February 2019. Up until then she was seeing Dr. Ferrari at [place] for pain. However, Dakota was very frustrated with her care and did not feel supported or heard. Mom says she was told that the pain was all in her head and was given gabapentin for 3 years without any improvement. Dakota has continued to have severe pain leading up to this surgery; her PCP prescribed norco and flexeril (with Dr. Ha's approval) in order to get her to surgery. Due to Dakota's hematologic history (please see Dr. Atwood's excellent note from 08/08/20), Dr. Cruz was present throughout the procedure to monitor her TXA infusion and labs. Dakota tolerated the procedure well with 330 mL blood loss (she received ~120 back via cell saver). She also received tylenol,albumin, ancef, decadron, precedex, ephedrine, phenylephrine, fentanyl, gabapentin, dilaudid, propofol, rocuronium, ketamine, LR, versed, and was started on a lidocaine gtt. Review of Systems The 10 point Review of Systems is negative other than noted in the HPI or here. Past Medical History I have reviewed this patient's medical history and updated it with pertinent information if needed. Past Medical History: Diagnosis Date ??? PONV (postoperative nausea and vomiting) ??? Scoliosis Past Surgical History Tethered cord surgery T3-L4 decortication - multiple spinal fusions 9-10 other ortho procedures for removal of hardware, bone grafting Social History Lives with mom Family History Maternal aunt: type IIa vWD MFG: [place], bleeding issues Prior to Admission Medications Prior to Admission Medications Prescriptions Last Dose Informant Patient Reported? Taking? HYDROcodone-acetaminophen (NORCO) 5-325 MG tablet Past Week at Unknown time Yes Yes Sig: Take 1 tablet by mouth every 6 hours as needed Norethindrone Acet-Ethinyl Est (LOESTRIN 08/24, , PO) 08/08/2020 at Unknown time Yes Yes Sig: Take by mouth daily cholecalciferol (VITAMIN D3) 125 mcg (5000 units) capsule 08/08/2020 at Unknown time Yes Yes Sig: Take by mouth daily cyclobenzaprine (FLEXERIL) 5 MG tablet 08/08/2020 at Unknown time Yes Yes Sig: Take 1 tablet by mouth 2 times daily sertraline (ZOLOFT) 100 MG tablet Yes Yes Sig: Take 100 mg by mouth daily Facility-Administered Medications: None Allergies Allergies Allergen Reactions ??? Dust Mites Itching Other reaction(s): Itching,Watering Eyes ??? Hydromorphone Other (See Comments) Pt did not remember what happened, she became very angry and aggressive Just the pill form. Pt did not remember what happened, she became very angry and aggressive Physical Exam Vital Signs: Temp: 98.1 ??F (36.7 ??C) Temp src: Axillary BP: 93/48 Pulse: 94 Resp: 21 SpO2: 99 % [id number]: None (Room air) Weight: 120 lbs 9.47 oz General: Sleeping, wakes appropriately with exam Head: Atraumatic Eyes: EOM grossly intact, PERRL, conjunctivae clear Nose: no drainage Mouth: MMM, no oral lesions noted Chest: Lungs CTAB, no increased work of breathing CV: RRR, normal S1/S2, no murmurs noted; peripheral pulses 2+, cap refill <2 sec Abdomen: soft, nontender, nondistended Extremities: warm and well perfused, no deformities noted Neuro: wakes appropriately with exam, responsive, moving all extremities Data Recent Labs Lab 08/09/20 1345 08/09/20 1128 08/09/20 0950 08/09/20 0845 WBC 11.6* 17.3* -- 6.5 HGB 10.6* 11.0* 11.5* 11.2* 11.2* MCV 91 91 -- 90 PLT 238 324 -- 285 INR 1.14 1.14 1.06 1.07 NA 139 -- 138 139 POTASSIUM 3.7 -- 3.5 3.4 CHLORIDE 106 -- -- -- CO2 25 -- -- -- BUN 12 -- -- -- CR 0.66 -- -- -- ANIONGAP 8 -- -- -- IMELDA 7.9* -- -- -- GLC 164* -- 149* 126* ALBUMIN 3.5 -- -- -- HOLOGY DEPARTMENT CHAIR documented in this encounter Consult Notes Estee Braden CNP - 08/10/2020 1:45 PM CSTAssociated Order(s): PEDS INTE[facility] IP CONSULT Images from the original note were not included. Pediatric Integrative Medicine Initial Consultation Primary Care provider: Josh Carrero Consulting Provider: Rosalind Tavera MD Reason for consultation: I was asked to see this patient for anxiety and [id number] pain. Assessment: Dakota is a 20 year old female patient with a history of tethered cord, scoliosis??s/p spinal fusion,and complex platelet disorder??who is post-op and experiencing nausea and back pain. Plan: 1. Introduced the Pediatric [facility] Health [facility] Wellbeing Program and the different services we can provide. 2. Nausea Acu-magnet placed on right acupressure point P6 (right wrist) indicated for nausea. Please remove on08/13 @ 1400. Acu-magnet care and removal: acu-magnets may remain in place for 72 hours. Skin site should be checked daily and they should be removed earlier if pain, discomfort, redness, or swelling, need for MRI, placement of a pacemaker, or use of a pump which has internal magnetic components. Notify Radiology if XRay or CT is required and there is an external acu-magnet in the radiologic field. 3. Introduced relaxation techniques such as deep breathing and guided imagery but patient fell asleep. Patient chose beach as place where she is relaxed and peaceful. Will continue tomorrow. Follow-up: We will continue to support during this admission as is clinically possible. History of Present Illness: Dakota Casiano is a 20 year old female with a history of tethered cord, scoliosis??s/p spinal fusion, and complex platelet disorder??post-op for??planned procedure to remove her??spinal instrumentation due to pain and concern for metal hypersensitivity. Intraoperatively she wa s??found to have four areas of pseudoarthroses??requiring reinstrumentation. She requires PICU admission post-op for close??hemodynamic??monitoring, hematologic monitoring given unclear hematologic disorder, and pain control. She is accompanied at this visit by her mother and father. Parents report that Dakota is experiencing extreme nausea and discomfort. Dakota agrees with this report. She states her worst symptom is her all-over back pain. She states there is no specific area, that her entire back is painful. She also states that all she wants to do right now is sleep. Review of systems: The Comprehensive ROS was performed and is negative except as noted below and in the HPI. Previous CAM experience: Parents report that patient has experience with multiple pain and integrative teams during previous surgeries. She has not found aromatherapy and deep breathing to be helpful (per parent report). ALLERGIES: Allergies Allergen Reactions ??? Dust Mites Itching Other reaction(s): Itching,Watering Eyes ??? Hydromorphone Other (See Comments) Pt did not remember what happened, she became very angry and aggressive Just the pill form. Pt did not remember what happened, she became very angry and aggressive IMMUNIZATIONS: There is no immunization history on file for this patient. CURRENT MEDICATIONS: Current Facility-Administered Medications Medication ??? acetaminophen (TYLENOL) tablet 650 mg ??? calcium carbonate (TUMS) chewable tablet 500 mg ??? cholecalciferol (VITAMIN D3) 125 mcg (5000 units) capsule 125 mcg ??? diazepam (VALIUM) injection 2.5 mg ??? heparin in 0.9% NaCl 50 unit/50 mL infusion ??? hydrOXYzine 25 mg in D5W injection PEDS/NICU ??? lactated ringers infusion ??? lidocaine (LMX4) cream ??? lidocaine 400 mg in D5W 50 mL (ADULT STD) - for ANALGESIA ??? morphine 1 mg/ml bolus from infusion pump 1 mg ??? Morphine Sulfate (PF) 1 mg/mL in sodium chloride 0.9 % 30 mL PEDS infusion ??? naloxone (NARCAN) injection 0.4 mg ??? norethindrone-ethinyl estradiol (MICROGESTIN 08/24) 1-20 MG-MCG per tablet 1 tablet ??? ondansetron (ZOFRAN) injection 4 mg ??? polyethylene glycol (MIRALAX) Packet 17 g ??? scopolamine (TRANSDERM-SCOP) Patch in Place ??? scopolamine (TRANSDERM-SCOP) patch REMOVAL ??? sennosides (SENOKOT) tablet 8.6 mg ??? sertraline (ZOLOFT) tablet 100 mg ??? sodium chloride 0.9 % with papaverine 6 mg infusion ??? tranexamic acid (CYKLOKAPRON) bolus 500 mg PAST MEDICAL HISTORY: Active Ambulatory Problems Diagnosis Date Noted ??? 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 Other secondary scoliosis, thoracolumbar region 05/05/2020 ??? Tethered cord (H) 05/05/2020 Resolved Ambulatory Problems Diagnosis Date Noted ??? No Resolved Ambulatory Problems Past Medical History: Diagnosis Date ??? PONV (postoperative nausea and vomiting) ??? Scoliosis PAST SURGICAL HISTORY: Past Surgical History: Procedure Laterality Date ??? EXPLORE SPINE, REMOVE HARDWARE, COMBINED N/A 08/09/2020 Procedure: Reinsert Segmental Instrumentation Thoracic 4 - Lumbar 4, pseudarthrosis repair four sites, image guided surgery, Scar Revision, Skin Biopsy; Surgeon: Catina Ha MD; Location: [facility] OR ??? OPTICAL TRACKING SYSTEM FUSION SPINE POSTERIOR THORACIC CHILD THREE+ LEVELS 08/09/2020 Procedure: Optical tracking system fusion spine posterior thoracic child three+ levels; Surgeon: Catina Ha MD; Location: [facility] OR FAMILY HISTORY: History reviewed. No pertinent family history. SOCIAL HISTORY: Social History Social History Narrative ??? Not on file Physical Exam: Temp: [98.1 ??F (36.7 ??C)-98.8 ??F (37.1 ??C)] 98.5 ??F (36.9 ??C) Pulse: [59-94] 79 Resp: [10-32] 32 MAP: [67 mmHg-95 mmHg] 84 mmHg Arterial Line BP: (78-127)/(53-90) 97/72 SpO2: [92 %-100 %] 100 % BP 93/48 Pulse 79 Temp 98.5 ??F (36.9 ??C) (Oral) Resp (!) 32 Ht 1.6 m (5' 3) Wt 54.7 kg (120 lb 9.5 oz) SpO2 100% BMI 21.36 kg/m?? Vitals: 08/09/20 0650 Weight: 54.7 kg (120 lb 9.5 oz) @ Wt Readings from Last 3 Encounters: 08/09/20 54.7 kg (120 lb 9.5 oz) (38 %, Z= -0.30)* 07/21/20 54.3 kg (119 lb 9.6 oz) (36 %, Z= -0.35)* 05/05/20 54.3 kg (119 lb 9.6 oz) (37 %, Z= -0.32)* * Growth percentiles are based on CDC (Girls, 2-20 Years) data. Ht Readings from Last 2 Encounters: 08/09/20 1.6 m (5' 3) (31 %, Z= -0.50)* 07/21/20 1.61 m (5' 3.39) (36 %, Z= -0.35)* * Growth percentiles are based on CDC (Girls, 2-20 Years) data. 48 %ile (Z= -0.06) based on CDC (Girls, 2-20 Years) BMI-for-age based on BMI available as of 08/09/2020. GENERAL: Alert, no acute distress. SKIN: Clear. No significant rash, abnormal pigmentation or lesions HEAD: Normocephalic. EYES: Pupils equal, round, reactive. NOSE: Nares without discharge. MOUTH: MMM LUNGS: Unlabored respirations on room air HEART: Regular rhythm. ABDOMEN: Soft, non-tender, not distended, no masses or hepatosplenomegaly EXTREMITIES: Full range of motion, no deformities or visible muscle spasms NEUROLOGICAL: Normal strength and sensation. Normal gait. No tremor. PSYCHOLOGICAL: Appropriate mood. Labs and Tests: Results for orders placed or performed during the hospital encounter of 08/09/20 (from the past 24 hour(s)) CBC with platelets Result Value Ref Range WBC 12.6 (H) 4.0 - 11.0 10e9/L RBC Count 3.41 (L) 3.8 - 5.2 10e12/L Hemoglobin 10.5 (L) 11.7 - 15.7 g/dL Hematocrit 30.8 (L) 35.0 - 47.0 % MCV 90 78 - 100 fl MCH 30.8 26.5 - 33.0 pg MCHC 34.1 31.5 - 36.5 g/dL RDW 12.1 10.0 - 15.0 % Platelet Count 203 150 - 450 10e9/L INR Result Value Ref Range INR 1.14 0.86 - 1.14 Partial thromboplastin time Result Value Ref Range PTT 26 22 - 37 sec Fibrinogen activity Result Value Ref Range Fibrinogen 205 200 - 420 mg/dL TEG without Heparinase Result Value Ref Range R time until clot forms 3.2 (L) 5 - 10 Minute K time to spec clot strength 0.8 (L) 1 - 3 Minute Angle rate of clot strength 78.4 (H) 53 - 72 Degrees MA maximum clot strength 68.3 50 - 70 mm CI hypercoagulation index 4.1 (H) 0.0 - 3.0 Ratio G actual clot strength 10.8 4.5 - 11.0 Kd/sc LY30 lysis at 30 minutes 1.2 0 - 8 % LY60 lysis at 60 minutes 3.8 0 - 15 % CBC with platelets Result Value Ref Range WBC 12.1 (H) 4.0 - 11.0 10e9/L RBC Count 3.38 (L) 3.8 - 5.2 10e12/L Hemoglobin 10.4 (L) 11.7 - 15.7 g/dL Hematocrit 30.3 (L) 35.0 - 47.0 % MCV 90 78 - 100 fl MCH 30.8 26.5 - 33.0 pg MCHC 34.3 31.5 - 36.5 g/dL RDW 12.1 10.0 - 15.0 % Platelet Count 211 150 - 450 10e9/L TEG without Heparinase Result Value Ref Range R time until clot forms 3.1 (L) 5 - 10 Minute K time to spec clot strength 1.1 1 - 3 Minute Angle rate of clot strength 74.3 (H) 53 - 72 Degrees MA maximum clot strength 63.9 50 - 70 mm CI hypercoagulation index 3.3 (H) 0.0 - 3.0 Ratio G actual clot strength 8.8 4.5 - 11.0 Kd/sc LY30 lysis at 30 minutes 2.1 0 - 8 % LY60 lysis at 60 minutes 5.5 0 - 15 % INR Result Value Ref Range INR 1.11 0.86 - 1.14 Partial thromboplastin time Result Value Ref Range PTT 26 22 - 37 sec Fibrinogen activity Result Value Ref Range Fibrinogen 206 200 - 420 mg/dL TEG without Heparinase Result Value Ref Range R time until clot forms 2.6 (L) 5 - 10 Minute K time to spec clot strength 1.0 1 - 3 Minute Angle rate of clot strength 76.9 (H) 53 - 72 Degrees MA maximum clot strength 64.1 50 - 70 mm CI hypercoagulation index 3.8 (H) 0.0 - 3.0 Ratio G actual clot strength 8.9 4.5 - 11.0 Kd/sc LY30 lysis at 30 minutes 2.4 0 - 8 % LY60 lysis at 60 minutes 5.7 0 - 15 % Partial thromboplastin time Result Value Ref Range PTT 28 22 - 37 sec INR Result Value Ref Range INR 1.15 (H) 0.86 - 1.14 Fibrinogen activity Result Value Ref Range Fibrinogen 238 200 - 420 mg/dL CBC with platelets Result Value Ref Range WBC 13.8 (H) 4.0 - 11.0 10e9/L RBC Count 3.32 (L) 3.8 - 5.2 10e12/L Hemoglobin 10.1 (L) 11.7 - 15.7 g/dL Hematocrit 29.9 (L) 35.0 - 47.0 % MCV 90 78 - 100 fl MCH 30.4 26.5 - 33.0 pg MCHC 33.8 31.5 - 36.5 g/dL RDW 12.3 10.0 - 15.0 % Platelet Count 202 150 - 450 10e9/L Fibrinogen activity Result Value Ref Range Fibrinogen 274 200 - 420 mg/dL INR Result Value Ref Range INR 1.17 (H) 0.86 - 1.14 Partial thromboplastin time Result Value Ref Range PTT 30 22 - 37 sec CBC with platelets Result Value Ref Range WBC 11.4 (H) 4.0 - 11.0 10e9/L RBC Count 3.26 (L) 3.8 - 5.2 10e12/L Hemoglobin 10.1 (L) 11.7 - 15.7 g/dL Hematocrit 29.5 (L) 35.0 - 47.0 % MCV 91 78 - 100 fl MCH 31.0 26.5 - 33.0 pg MCHC 34.2 31.5 - 36.5 g/dL RDW 12.3 10.0 - 15.0 % Platelet Count 182 150 - 450 10e9/L TEG without Heparinase Result Value Ref Range R time until clot forms 3.2 (L) 5 - 10 Minute K time to spec clot strength 1.1 1 - 3 Minute Angle rate of clot strength 75.6 (H) 53 - 72 Degrees MA maximum clot strength 62.8 50 - 70 mm CI hypercoagulation index 3.1 (H) 0.0 - 3.0 Ratio G actual clot strength 8.4 4.5 - 11.0 Kd/sc LY30 lysis at 30 minutes 2.8 0 - 8 % LY60 lysis at 60 minutes 6.3 0 - 15 % Thank you for this consultation. Please do not hesitate to contact me with any questions or concerns. IEstee, spent a total of 20 minutes [id number] and on the unit today. Over 50% of this time was spent counseling the patient-family regarding strategies for nausea and relaxation and coordinating care with primary team and bedside RN. Estee Braden, HANNA, CPNP, HNB- Pediatric Nurse Practitioner [facility] HOLOGY DEPARTMENT CHAIR Azar Cruz MD - 08/09/2020 9:37 PM CSTAssociated Order(s): PEDS HEM/ONC IP CONSULT [facility]?? Consult Note - Hematology Date of Admission: 08/09/2020 Consult Requested by: Eleanor Dooley MD, PICU Reason for Consult: Hemostasis management recommendations in the setting of suspected bleeding disorder Assessment & Plan Dakota Casiano is a 20 year old female admitted on 08/09/2020. She has a history of tethered cord and severe scoliosis s/p multiple repairs but after one of the procedures in January 2016, she had significantunexpected blood loss that has led, over the last 4+ years, to a bleeding disorder workup for which the diagnosis remains elusive. She had mild platelet dysfunction on an aggregation study, with a second mildly abnormal wave in response to epinephrine 3 months ago. While this finding and her symptoms were consistent with the rare [place] platelet disorder, genetic testing was not consistent with the known genetics of that diagnosis. Today, she underwent planned hardware removal due to significant pain issues, but during the procedure, she was unexpectedly found to have 4 pseudoarthroses requiring hardware replacement. I was present during the full procedure to help monitor hemostasis using clinical course and lab outcomes combined with an infusion of tranexamic acid, all of which went well. She was subsequently extubated and transferred to the PICU where she is recovering now. She does have a drain in place in the incision site. Recommendations -On arrival to the PICU, she was transitioned successfully from the continuous infusion TXA to 10 mg/kg q6h. Continue q6h dosing IV until able to take PO. At that point, when taking oral medications, Iwould switch to 1 gram PO TXA q6h for a planned total of 7 days. Dose can increase to 1.5 grams if TEG suggests hyperfibrinolysis or her bleeding output is higher than expected. -She also has been getting labs q4h since arriving around midday. Labs look stable enough to transition to q6h overnight. CBC, INR/PTT/Fibrinogen and TEG without heparinase for all labs. Fibrinogen goal >150. -If bleeding output is higher than expected despite TXA, then platelet transfusion (given her uncertain platelet disorder) would be warranted. I will continue to follow her course daily. Please feel free to reach out with any questions. The patient's care plan was discussed with the Primary team during the day. I spent a total of 60 minutes preparing for the procedure by reviewing the case documentation, followed by 240 minutes in the OR helping to manage hemostasis during the procedure. Azar Cruz MD Pediatric Guest Associate Division of Pediatric Hematology/Oncology [facility] Pager: [facility]?? Chief Complaint Possible bleeding disorder History is obtained from the patient and electronic health record History of Present Illness Dakota Casiano is a 20 year old female with a long history of severe scoliosis who has undergone several procedures for repair. She was undergoing hardware removal today due to significant pain issues. During the last 5 years with multiple procedures, she has had a significant multi-site hematology workup because back in January 2016, when she underwent spinal decortication after tethered cord repair at an outside hospital, she had a significant blood loss that was unexpected given the procedure. She wasgiven pRBC and platelets during that event with little improvement. This event has precipitated workup at [facility], [place], and [facility] where she was found to have an ill-defined platelet defect, though genetics have been unrevealing to date. Interestingly, she has gone spinal repairs and hardware manipulation before and after that difficult procedure, both with and without antifibrinolytics being used. These events paint a puzzling picture of what triggered her major bleeding episode, and most of her hemostasis testing has been normal, but aggregometry shows a mildly abnormal response to epinephrine which up until a week or two ago was thought to possibly be [place] platelet disorder (targeted genetictesting was negative). She has been healthy recently but has had lots of back pain. It has been considered to be due to the hardware, potentially as a hypersensitivity, so she underwent the procedure to day to see if this would improve her pain. 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 Her bleeding history and surgical course have been extensively documented by Dr. Mariposa Atwood on 08/08/2020 and thus will not be re-copied here. Review of Systems CONSTITUTIONAL: NEGATIVE for fever, chills, change in weight ENT/MOUTH: NEGATIVE for ear, mouth and throat problems RESP: NEGATIVE for significant cough or SOB CV: NEGATIVE for chest pain, palpitations or peripheral edema Past Medical History I have reviewed this patient's medical history and updated it with pertinent information if needed. Past Medical History: Diagnosis Date ??? PONV (postoperative nausea and vomiting) ??? Scoliosis Tethered cord, now repaired Significant bleeding event during a prior spine surgery January 2016 Suspected primary hemostasis/platelet disorder, not yet defined. Past Surgical History Several spinal surgeries in the past Social History I have reviewed this patient's social history and updated it with pertinent information if needed. Social History Tobacco Use ??? Smoking status: Never Smoker ??? Smokeless tobacco: Never Used Substance Use Topics ??? Alcohol use: Not Currently ??? Drug use: Not Currently Family History I have reviewed this patient's family history and updated it with pertinent information if needed. (copied from her primary state comptroller's recent note Aug 2020) Dad with nosebleeds, but no surgeries (orphaned so no other history) Mom with heavy periods, no bruising, no issues with surger Maternal Aunt with Type IIa vWD from [facility] records Medications Medications Prior to Admission Medication Sig Dispense Refill Last Dose ??? cholecalciferol (VITAMIN D3) 125 mcg (5000 units) capsule Take by mouth daily 08/08/2020 at Unknown time ??? cyclobenzaprine (FLEXERIL) 5 MG tablet Take 1 tablet by mouth 2 times daily 08/08/2020 at Unknown time ??? HYDROcodone-acetaminophen (NORCO) 5-325 MG tablet Take 1 tablet by mouth every 6 hours as neededPast Week at Unknown time ??? Norethindrone Acet-Ethinyl Est (LOESTRIN 08/24, , PO) Take by mouth daily 08/08/2020 at Unknown time ??? sertraline (ZOLOFT) 100 MG tablet Take 100 mg by mouth daily Allergies Allergies Allergen Reactions ??? Dust Mites Itching Other reaction(s): Itching,Watering Eyes ??? Hydromorphone Other (See Comments) Pt did not remember what happened, she became very angry and aggressive Just the pill form. Pt did not remember what happened, she became very angry and aggressive Physical Exam Vital Signs: Temp: 98.1 ??F (36.7 ??C) Temp src: Axillary BP: 93/48 Pulse: 59 Resp: 14 SpO2: 99 % [id number]: None (Room air) Weight: 120 lbs 9.47 oz Exam: Constitutional: healthy, alert and no distress, lying on transport bed prior to procedure Head: Normocephalic. No masses, lesions, tenderness or abnormalities Neck: Neck supple.. Respiratory: Good diaphragmatic excursion. No labored breathing : Deferred Musculoskeletal: extremities normal- no gross deformities noted, gait normal and normal muscle tone Skin: no suspicious lesions or rashes, no bruising noted Neurologic: Sensation grossly WNL. Psychiatric: she appeared mildly anxious but mentation appears normal Data Results for orders placed or performed during the hospital encounter of 08/09/20 (from the past 24 hour(s)) HCG qualitative urine Result Value Ref Range HCG Qual Urine Negative NEG^Negative ABO/Rh type and screen Result Value Ref Range Units Ordered 2 ABO O RH(D) Pos Antibody Screen Neg Test Valid Only At [facility] Specimen Expires 08/12/2020 Crossmatch Red Blood Cells Glucose Result Value Ref Range Glucose 75 70 - 99 mg/dL Blood component Result Value Ref Range Unit Number [id number] Blood Component Type Red Blood Cells Leukocyte Reduced Division Number 00 Status of Unit Ready for patient 08/09/2020 0857 Blood Product Code [id number] Unit Status GRADY Blood component Result Value Ref Range Unit Number [id number] Blood Component Type Red Blood Cells Leukocyte Reduced Division Number 00 Status of Unit Ready for patient 08/09/2020 0857 Blood Product Code [id number] Unit Status GRADY Arterial Panel Result Value Ref Range pH Arterial 7.47 (H) 7.35 - 7.45 pH pCO2 Arterial 35 35 - 45 mm Hg pO2 Arterial 305 (H) 80 - 105 mm Hg Bicarbonate Arterial 25 21 - 28 mmol/L Base Excess Art 1.6 mmol/L FIO2 STAT Sodium 139 133 - 144 mmol/L Potassium 3.4 3.4 - 5.3 mmol/L Hemoglobin 11.2 (L) 11.7 - 15.7 g/dL Glucose 126 (H) 70 - 99 mg/dL Calcium Ionized Whole Blood 4.5 4.4 - 5.2 mg/dL CBC with platelets Result Value Ref Range WBC 6.5 4.0 - 11.0 10e9/L RBC Count 3.70 (L) 3.8 - 5.2 10e12/L Hemoglobin 11.2 (L) 11.7 - 15.7 g/dL Hematocrit 33.1 (L) 35.0 - 47.0 % MCV 90 78 - 100 fl MCH 30.3 26.5 - 33.0 pg MCHC 33.8 31.5 - 36.5 g/dL RDW 11.9 10.0 - 15.0 % Platelet Count 285 150 - 450 10e9/L Fibrinogen activity Result Value Ref Range Fibrinogen 210 200 - 420 mg/dL INR Result Value Ref Range INR 1.07 0.86 - 1.14 Partial thromboplastin time Result Value Ref Range PTT 31 22 - 37 sec TEG without Heparinase Result Value Ref Range R time until clot forms 5.4 5 - 10 Minute K time to spec clot strength 1.5 1 - 3 Minute Angle rate of clot strength 68.7 53 - 72 Degrees MA maximum clot strength 63.1 50 - 70 mm CI hypercoagulation index 1.1 0.0 - 3.0 Ratio G actual clot strength 8.6 4.5 - 11.0 Kd/sc LY30 lysis at 30 minutes 1.0 0 - 8 % LY60 lysis at 60 minutes 4.2 0 - 15 % : Laboratory Miscellaneous Order Result Value Ref Range Miscellaneous Test BIOPSY IN HISTOLOGY. TEST REQUEST BEING INVESTIGATED BY STEFANIE ECHEVARRIA MD. Arterial Panel Result Value Ref Range pH Arterial 7.45 7.35 - 7.45 pH pCO2 Arterial 33 (L) 35 - 45 mm Hg pO2 Arterial 183 (H) 80 - 105 mm Hg Bicarbonate Arterial 23 21 - 28 mmol/L Base Deficit Art 0.6 mmol/L FIO2 STAT Sodium 138 133 - 144 mmol/L Potassium 3.5 3.4 - 5.3 mmol/L Hemoglobin 11.5 (L) 11.7 - 15.7 g/dL Glucose 149 (H) 70 - 99 mg/dL Calcium Ionized Whole Blood 4.3 (L) 4.4 - 5.2 mg/dL Fibrinogen activity Result Value Ref Range Fibrinogen 202 200 - 420 mg/dL INR Result Value Ref Range INR 1.06 0.86 - 1.14 Partial thromboplastin time Result Value Ref Range PTT 26 22 - 37 sec TEG without Heparinase Result Value Ref Range R time until clot forms 3.3 (L) 5 - 10 Minute K time to spec clot strength 0.9 (L) 1 - 3 Minute Angle rate of clot strength 76.3 (H) 53 - 72 Degrees MA maximum clot strength 70.5 (H) 50 - 70 mm CI hypercoagulation index 4.1 (H) 0.0 - 3.0 Ratio G actual clot strength 12.0 (H) 4.5 - 11.0 Kd/sc LY30 lysis at 30 minutes 0.9 0 - 8 % LY60 lysis at 60 minutes 3.5 0 - 15 % CBC with platelets Result Value Ref Range WBC 17.3 (H) 4.0 - 11.0 10e9/L RBC Count 3.60 (L) 3.8 - 5.2 10e12/L Hemoglobin 11.0 (L) 11.7 - 15.7 g/dL Hematocrit 32.7 (L) 35.0 - 47.0 % MCV 91 78 - 100 fl MCH 30.6 26.5 - 33.0 pg MCHC 33.6 31.5 - 36.5 g/dL RDW 11.9 10.0 - 15.0 % Platelet Count 324 150 - 450 10e9/L Fibrinogen activity Result Value Ref Range Fibrinogen 178 (L) 200 - 420 mg/dL INR Result Value Ref Range INR 1.14 0.86 - 1.14 Partial thromboplastin time Result Value Ref Range PTT 26 22 - 37 sec TEG without Heparinase Result Value Ref Range R time until clot forms 3.1 (L) 5 - 10 Minute K time to spec clot strength 0.8 (L) 1 - 3 Minute Angle rate of clot strength 76.1 (H) 53 - 72 Degrees MA maximum clot strength 68.3 50 - 70 mm CI hypercoagulation index 4.0 (H) 0.0 - 3.0 Ratio G actual clot strength 10.8 4.5 - 11.0 Kd/sc LY30 lysis at 30 minutes 0.9 0 - 8 % LY60 lysis at 60 minutes 3.4 0 - 15 % XR Surgery ELIER L/T 5 Min Fluoro Narrative This exam was marked as non-reportable because it will not be read by a radiologist or a [place] non-radiologist provider. Renal Panel Result Value Ref Range Sodium 139 133 - 144 mmol/L Potassium 3.7 3.4 - 5.3 mmol/L Chloride 106 96 - 110 mmol/L Carbon Dioxide 25 20 - 32 mmol/L Anion Gap 8 3 - 14 mmol/L Glucose 164 (H) 70 - 99 mg/dL Urea Nitrogen 12 7 - 30 mg/dL Creatinine 0.66 0.50 - 1.00 mg/dL GFR Estimate >90 >60 mL/min/[1.73_m2] GFR Estimate If Black >90 >60 mL/min/[1.73_m2] Calcium 7.9 (L) 8.5 - 10.1 mg/dL Phosphorus 3.0 2.5 - 4.5 mg/dL Albumin 3.5 3.4 - 5.0 g/dL Calcium ionized whole blood Result Value Ref Range Calcium Ionized Whole Blood 4.4 4.4 - 5.2 mg/dL Magnesium Result Value Ref Range Magnesium 1.6 1.6 - 2.3 mg/dL Prealbumin Result Value Ref Range Prealbumin 24 15 - 45 mg/dL CBC with platelets Result Value Ref Range WBC 11.6 (H) 4.0 - 11.0 10e9/L RBC Count 3.47 (L) 3.8 - 5.2 10e12/L Hemoglobin 10.6 (L) 11.7 - 15.7 g/dL Hematocrit 31.4 (L) 35.0 - 47.0 % MCV 91 78 - 100 fl MCH 30.5 26.5 - 33.0 pg MCHC 33.8 31.5 - 36.5 g/dL RDW 12.0 10.0 - 15.0 % Platelet Count 238 150 - 450 10e9/L Partial thromboplastin time Result Value Ref Range PTT 28 22 - 37 sec INR Result Value Ref Range INR 1.14 0.86 - 1.14 Fibrinogen activity Result Value Ref Range Fibrinogen 174 (L) 200 - 420 mg/dL TEG without Heparinase Result Value Ref Range R time until clot forms 3.7 (L) 5 - 10 Minute K time to spec clot strength 1.2 1 - 3 Minute Angle rate of clot strength 72.4 (H) 53 - 72 Degrees MA maximum clot strength 62.9 50 - 70 mm CI hypercoagulation index 2.5 0.0 - 3.0 Ratio G actual clot strength 8.5 4.5 - 11.0 Kd/sc LY30 lysis at 30 minutes 1.8 0 - 8 % LY60 lysis at 60 minutes 4.9 0 - 15 % PEDS Endocrinology IP Consult: Patient to be seen: Routine within 24 hrs; Call back #: [phone] ext [phone]; hx of scoliosis with poor healing after multiple repairs, also has unknown platelet disorder; Residential Mental Health Worker may enter orders: Yes; Requesti... Narrative Inga Dolan MD 08/09/2020 5:28 PM [facility] Pediatric Endocrinology Consultation New Note Reason for consult: I am consulting this patient at the request of the primary team for potential primary bone disease. Assessment and Plan: I did a virtual telephone visit with Dakota and her mother. I read through Dakota's medical records, talked to Dr. Atwood and Dr. Vernon, and talked to my endocrine colleague Dr. Brayden Price to try to sort out this complex problem, spending 80 minutes on the consult. Dakota has a complicated history and specifically I was asked to comment on the potential for bone disease. She has had multiple normal mineral levels over the years (calcium, phos, mg). Her vitamin D is well into the normal range on supplementation. This problem appears confined to her spine and to healing of surgical wounds there. There is no evidence of bone disease elsewhere in her body as evidenced by normal x-rays, lack of a significant fracture history, or abnormal growth. Thus, I think it is unlikely that this is a primary bone problem. However, there are a few more things we can do to look at this more carefully: 1. Please get a bone survey before she leaves the hospital to make sure there are no other areas of abnormality besides the spine. 2. Please schedule the following bone turnover labs for 3 months from now (we have to wait because she just had surgery): osteocalcin, alkaline phosphatase (bone specific isoenzymes), N-terminal and C-terminal telopeptides of type 1 collagen, PTH, calcium, phos, magnesium. Please schedule a DXA scan at the same time. 3. Please schedule an appointment with Dr. Brayden Price in pediatric bone clinic about 2 weeks after the labs are drawn in 3 months. HPI: Dakota is an 20-year-old female with a complicated past medical history. I am consulted today because of concerns about poor bone healing and a questions of whether she could have underlying bone disease. She has a long history of surgeries for scoliosis. She was operated on today to remove old hardware. 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 Dr. Vernon described these areas as thick fibrous tissue where there should have been new bone formation in 4 different areas of previous surgery. Dakota was initially evaluated for scoliosis and tethered cord at the age of about 15. She had no prior symptoms of tethered cord - no bowel or bladder problems or lower extremity symptoms. She subsequently underwent posterior spinal fusion in January 2016 and reported back pain following that surgery. She has had chronic pain ever since. Surgical hardware was removed in July 2016 and in 2017. She underwent revision of her spinal fusion from T3-L4 in February 2019. She also was seen at the [facility] where they felt that her symptoms might be related to a new cross-link which was removed. She continues to complain of pain, numbness and tingling and numbness and tingling involving the left lower extremity. She also has upper back numbness and tingling as well as pain. She occasionally has headaches. She is not having constipation, urinary problems, gait problems or other symptoms of re-tethering. Valerie had normal growth, and both height and weight are between the 25-50th percentiles. There are normal calcium, phosphorous and magnesium levels documented in the chart over the years including recently, and a normal alkaline phosphatase level. Vitamin D levels have been normal in the 40???s on supplementation. She has had numerous x-rays, mostly of her spine which have included ribs, and also of her pelvis, femur and foot----abnormal bone or garry lesions were not noted by the radiologist in any of these x-rays. She broke her ankle when she was very young and it healed well without further fracture history. There is no family history of bone disease. 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 There is no family history of connective tissue disease. While I did not examine Dakota myself, her mother reports that she does not have hyperextensibility, unusual flexibility or stretchy skin. In the past she has had normal thyroid, cortisol and ACTH levels, and normal LH and FSH. Estrodiol was a little low at 14 two years ago, but I couldn???t figure out the circumstances around that measurement and low estrogen would not be unusual post-operatively in the face of chronic illness. She has been on chronic hormonal therapy to prevent menses because of a bleeding problem. Dakota has mild bleeding issues which have been extensively worked up. She may have a mild bleeding disorder but it is not clear that this is the case. Earlier in childhood she had multiple visits to multiple physicians and multiple procedures for chronic abdominal pain, felt to be irritable bowel syndrome. Review of Systems: Extensive ROS non-contributory except as noted in HPI. Medications: Current Facility-Administered Medications Medication ??? acetaminophen (TYLENOL) tablet 650 mg ??? ceFAZolin (ANCEF) intermittent infusion 2 g in 100 mL dextrose PRE-MIX ??? [START ON 08/10/2020] cholecalciferol (VITAMIN D3) 125 mcg (5000 units) capsule 125 mcg ??? diazepam (VALIUM) injection 2.5 mg ??? heparin in 0.9% NaCl 50 unit/50 mL infusion ??? hydrOXYzine (VISTARIL) injection PEDS/NICU 25 mg ??? lactated ringers infusion ??? lidocaine (LMX4) cream ??? lidocaine 2 gm in D5W 250 mL (ADULT STD) ??? morphine 1 mg/ml bolus from infusion pump 1 mg ??? Morphine Sulfate (PF) 1 mg/mL in sodium chloride 0.9 % 30 mL PEDS infusion ??? naloxone (NARCAN) injection 0.4 mg ??? [START ON 08/10/2020] norethindrone-ethinyl estradiol (MICROGESTIN 08/24) 1-20 MG-MCG per tablet 1 tablet ??? ondansetron (ZOFRAN) injection 4 mg ??? scopolamine (TRANSDERM) 72 hr patch 1 patch ??? [START ON 08/10/2020] sertraline (ZOLOFT) tablet 100 mg ??? sodium chloride 0.9% infusion ??? tranexamic acid (CYKLOKAPRON) bolus 500 mg Physical Exam: Blood pressure 93/48, pulse 94, temperature 98.1 ??F (36.7 ??C), temperature source Axillary, resp. rate 21, height 1.6 m (5' 3), weight 54.7 kg (120 lb 9.5 oz), SpO2 99 %. This was a virtual visit with no physical exam. I reviewed the residents physical exam. Laboratory results: Labs from the past several years have been reviewed. Inga Dolan MD Professor and Direct Mail Clerk Pediatric Endocrinology and Diabetes Pager: [phone] Methicillin Resist/Sens S. aureus PCR Specimen: Nasal Swab; Nares Result Value Ref Range Specimen Description Nares Methicillin Resist/Sens S. aureus PCR Negative NEG^Negative CBC with platelets Result Value Ref Range WBC 12.6 (H) 4.0 - 11.0 10e9/L RBC Count 3.41 (L) 3.8 - 5.2 10e12/L Hemoglobin 10.5 (L) 11.7 - 15.7 g/dL Hematocrit 30.8 (L) 35.0 - 47.0 % MCV 90 78 - 100 fl MCH 30.8 26.5 - 33.0 pg MCHC 34.1 31.5 - 36.5 g/dL RDW 12.1 10.0 - 15.0 % Platelet Count 203 150 - 450 10e9/L INR Result Value Ref Range INR 1.14 0.86 - 1.14 Partial thromboplastin time Result Value Ref Range PTT 26 22 - 37 sec Fibrinogen activity Result Value Ref Range Fibrinogen 205 200 - 420 mg/dL TEG without Heparinase Result Value Ref Range R time until clot forms 3.2 (L) 5 - 10 Minute K time to spec clot strength 0.8 (L) 1 - 3 Minute Angle rate of clot strength 78.4 (H) 53 - 72 Degrees MA maximum clot strength 68.3 50 - 70 mm CI hypercoagulation index 4.1 (H) 0.0 - 3.0 Ratio G actual clot strength 10.8 4.5 - 11.0 Kd/sc LY30 lysis at 30 minutes 1.2 0 - 8 % LY60 lysis at 60 minutes 3.8 0 - 15 % HOLOGY DEPARTMENT CHAIR Inga Dolan MD - 08/09/2020 4:39 PM CSTAssociated Order(s): PEDS ENDOCRINOLOGY IP CONSULT [facility] Pediatric Endocrinology Consultation New Note Reason for consult: I am consulting this patient at the request of the primary team for potential primary bone disease. Assessment and Plan: I did a virtual telephone visit with Dakota and her mother. I read through Dakota's medical records, talked to Dr. Atwood and Dr. Vernon, and talked to my endocrine colleague Dr. Brayden Price to try to sort out this complex problem, spending 80 minutes on the consult. Dakota has a complicated history and specifically I was asked to comment on the potential for bone disease. She has had multiple normal mineral levels over the years (calcium, phos, mg). Her vitamin D is well into the normal range on supplementation. This problem appears confined to her spine and to healing of surgical wounds there. There is no evidence of bone disease elsewhere in her body as evidenced by normal x-rays, lack of a significant fracture history, or abnormal growth. Thus, I think it is unlikely that this is a primary bone problem. However, there are a few more things we can do to look at this more carefully: 1. Please get a bone survey before she leaves the hospital to make sure there are no other areas of abnormality besides the spine. 2. Please schedule the following bone turnover labs for 3 months from now (we have to wait because she just had surgery): osteocalcin, alkaline phosphatase (bone specific isoenzymes), N-terminal and C-terminal telopeptides of type 1 collagen, PTH, calcium, phos, magnesium. Please schedule a DXA scan at the same time. 3. Please schedule an appointment with Dr. Brayden Price in pediatric bone clinic about 2 weeks after the labs are drawn in 3 months. HPI: Dakota is an 20-year-old female with a complicated past medical history. I am consulted today becauseof concerns about poor bone healing and a questions of whether she could have underlying bone disease. She has a long history of surgeries for scoliosis. 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 Dr. Vernon described these areas as thick fibrous tissue where there should have been new bone formation in 4 different areas of previous surgery. Dakota was initially evaluated for scoliosis and tethered cord at the age of about 15. She had no prior symptoms of tethered cord - no bowel or bladder problems or lower extremity symptoms. She subsequently underwent posterior spinal fusion in January 2016 and reported back pain following that surgery. She has had chronic pain ever since. Surgical hardware was removed in July 2016 and in 2017. She underwent revision of her spinal fusion from T3-L4 in February 2019. She also was seen at the [facility] where they felt that her symptoms might be related to a new cross-link which was removed. She continues to complain of pain, numbness and tingling and numbness and tingling involving the left lower extremity. She also has upper back numbness and tingling as well as pain. She occasionally has headaches. She is not having constipation, urinary problems, gait problems or other symptoms of re-tethering. Valerie had normal growth, and both height and weight are between the 25-50th percentiles. There are normal calcium, phosphorous and magnesium levels documented in the chart over the years including recently, and a normal alkaline phosphatase level. Vitamin D levels have been normal in the 40???s on sup plementation. She has had numerous x-rays, mostly of her spine which have included ribs, and also ofher pelvis, femur and foot----abnormal bone or garry lesions were not noted by the radiologist in any of these x-rays. She broke her ankle when she was very young and it healed well without further fracture history. There is no family history of bone disease. Despite chronic back pain she is an activeyoung woman who plays [employer] on her [employer] team. There is no family history of connective tissue disease. While I did not examine Dakota myself, her mother reports that she does not have hyperextensibility, unusual flexibility or stretchy skin. In the past she has had normal thyroid, cortisol and ACTH levels, and normal LH and FSH. Estrodiol was a little low at 14 two years ago, but I couldn???t figure out the circumstances around that measurement and low estrogen would not be unusual post-operatively in the face of chronic illness. She has been on chronic hormonal therapy to prevent menses because of a bleeding problem. Dakota has mild bleeding issues which have been extensively worked up. She may have a mild bleeding disorder but it is not clear that this is the case. Earlier in childhood she had multiple visits to multiple physicians and multiple procedures for chronic abdominal pain, felt to be irritable bowel syndrome. Review of Systems: Extensive ROS non-contributory except as noted in HPI. Medications: Current Facility-Administered Medications Medication ??? acetaminophen (TYLENOL) tablet 650 mg ??? ceFAZolin (ANCEF) intermittent infusion 2 g in 100 mL dextrose PRE-MIX ??? [START ON 08/10/2020] cholecalciferol (VITAMIN D3) 125 mcg (5000 units) capsule 125 mcg ??? diazepam (VALIUM) injection 2.5 mg ??? heparin in 0.9% NaCl 50 unit/50 mL infusion ??? hydrOXYzine (VISTARIL) injection PEDS/NICU 25 mg ??? lactated ringers infusion ??? lidocaine (LMX4) cream ??? lidocaine 2 gm in D5W 250 mL (ADULT STD) ??? morphine 1 mg/ml bolus from infusion pump 1 mg ??? Morphine Sulfate (PF) 1 mg/mL in sodium chloride 0.9 % 30 mL PEDS infusion ??? naloxone (NARCAN) injection 0.4 mg ??? [START ON 08/10/2020] norethindrone-ethinyl estradiol (MICROGESTIN 08/24) 1-20 MG-MCG per tablet 1 tablet ??? ondansetron (ZOFRAN) injection 4 mg ??? scopolamine (TRANSDERM) 72 hr patch 1 patch ??? [START ON 08/10/2020] sertraline (ZOLOFT) tablet 100 mg ??? sodium chloride 0.9% infusion ??? tranexamic acid (CYKLOKAPRON) bolus 500 mg Physical Exam: Blood pressure 93/48, pulse 94, temperature 98.1 ??F (36.7 ??C), temperature source Axillary, resp. rate 21, height 1.6 m (5' 3), weight 54.7 kg (120 lb 9.5 oz), SpO2 99 %. This was a virtual visit with no physical exam. I reviewed the residents physical exam. Laboratory results: Labs from the past several years have been reviewed. Inga Dolan MD Professor and Direct Mail Clerk Pediatric Endocrinology and Diabetes Pager: [phone] HOLOGY DEPARTMENT CHAIR documented in this encounter Nursing Notes Zoila Boone RN - 08/08/2020 9:40 AM CST Images from the original note were not included. Mariposa Atwood MD Randle, Darrell Wayne, MD; Zoila Boone, RN; P Pas Anesthesiology; Riaz Kenyon MD Cc: Maura Moreno RN; Rachel Rodriguez RN; Jana Fischer RN ?? I just left a note in addition to Dr. Ha's re: summary and plan. Will fill in the addendum with additional detail of prior course sometime today. HOLOGY DEPARTMENT CHAIR Zoila Boone RN - 08/04/2020 8:15 AM CST Images from the original note were not included. [facility] Hematology abn: Bleeding Abnormalities.Needs review. Surgery on 08/09 Received: Yesterday Message Contents Federico Redman MD Johnson, Judy, RN; P Pas Anesthesiology; Riaz Kenyon MD; Mariposa Atwood MD Cc: Maura Moreno RN; Rachel Rodriguez RN; Jana Fischer RN ?? 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 ??I can see that you have been trying to obtain records for her VWD managment. ??Have you been successful in obtaining these and creating a plan for our interoperative management? Thank you! Federico Redman MD [facility] [phone] Previous Messages ----- Message ----- From: Zoila Boone RN Sent: 08/03/2020 ?? 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 Pt had a interoperative hemorrhage in 2016 (EBL 1400 ml). ?? Please see Dr Ha's note on 07/21/20, regarding plan. ??Surgery is on 08/09/20. Thanks so much. Zoila Boone RN, BSN Preanesthesia Screening [phone] HOLOGY DEPARTMENT CHAIR Zoila Boone RN - 08/03/2020 2:34 PM CST Images from the original note were not included. AA Hematology abn: Bleeding Abnormalities.Needs review. Surgery on 08/09 Received: Today Message Contents Zoila Boone RN P Pas Anesthesiology; Riaz Kenyon MD Cc: Maura Moreno RN; Rachel Rodriguez RN; Paulisich, Jana Z, RN ?? Hi all, FYI: History of complex bleeding disorder-[place] platelet disorder? Pt had a interoperative hemorrhage in 2016 (EBL 1400 ml). ?? Please see Dr Ha's note on 07/21/20, regarding plan. ??Surgery is on 08/09/20. Thanks so much. Zoila Boone RN, BSN Preanesthesia Screening [phone] HOLOGY DEPARTMENT CHAIR documented in this encounter Miscellaneous Notes Plan of Care - Tess Gutierrez RN - 08/16/2020 1:36 PM CST VSS. Afebrile. Rating back pain /10. Patient appears comfortable. Pain controlled with 5 mg PRN Oxycodone x2, scheduled valium, and scheduled Tylenol. Voiding well. Having loose stools - bowel medications held. All goals met for discharge. AVS and discharge medications reviewed with patient and mother, they verbalized understanding. Discharged at 1315. HOLOGY DEPARTMENT CHAIR Pharmacy - Discharge Medication Reconciliation and Education - Zeb Bravo [facility] - 08/16/2020 1:12 PM CST Discharge medication review for this patient completed. Pharmacist student provided medication teaching for discharge with a focus on new medications/dose changes.The discharge medication list was reviewed with mother and daughter. The following points were discussed, as applicable: Name, description, purpose, dose/strength, duration of medications, strategies for giving medications to children, special storage requirements, common side effects, action to be taken if dose is missed, when to call MD, safe disposal of unused medications and how to obtain refills. Mother and daughter were engaged during teaching and verbalized understanding. Taught-back when to use the Narcan nasal spray. All medications were in hand during teaching and left in room for discharge. The following medications were discussed: Current Discharge Medication List START taking these medications Details acetaminophen (TYLENOL) 500 MG tablet Take 1000 mg every six hours for 2 days after discharge, then as needed (every six hours) after that. Associated Diagnoses: Acute post-operative pain diazepam (VALIUM) 2 MG tablet Take 1 tablet (2 mg) by mouth every 6 hours as needed for anxiety Qty: 30 tablet, Refills: 0 Associated Diagnoses: Acute post-operative pain Lidocaine (LIDOCARE) 4 % Patch Place 1-2 patches on skin over painful area. Leave on for 12 hours, then keep off for 12 hours. Repeat daily. Qty: 30 patch, Refills: 3 Associated Diagnoses: Acute post-operative pain; Chronic musculoskeletal pain naloxone (NARCAN) 4 MG/0.1ML nasal spray [place] 1 spray (4 mg) into one nostril alternating nostrils as needed for opioid reversal every 2-3 minutes until assistance arrives Qty: 0.2 mL, Refills: 0 Associated Diagnoses: Acute post-operative pain oxyCODONE (ROXICODONE) 10 MG tablet Take 0.5-1 tablets (5-10 mg) by mouth every 4 hours as needed for moderate to severe pain Qty: 15 tablet, Refills: 0 Associated Diagnoses: Acute post-operative pain polyethylene glycol (MIRALAX) 17 GM/Dose powder Take 17 g by mouth daily Qty: 510 g, Refills: 11 Associated Diagnoses: Acute post-operative pain pregabalin (LYRICA) 150 MG capsule Take 1 capsule (150 mg) by mouth 2 times daily Qty: 60 capsule, Refills: 3 Associated Diagnoses: Chronic musculoskeletal pain; Chronic pain syndrome tranexamic acid (LYSTEDA) 650 MG tablet Take 1.5 tablets every six hours as needed for persistent bleeding. Qty: 15 tablet, Refills: 0 Associated Diagnoses: Platelet disorder (H) CONTINUE these medications which have NOT CHANGED Details cholecalciferol (VITAMIN D3) 125 mcg (5000 units) capsule Take by mouth daily Norethindrone Acet-Ethinyl Est (LOESTRIN 08/24, , PO) Take by mouth daily sertraline (ZOLOFT) 100 MG tablet Take 100 mg by mouth daily STOP taking these medications cyclobenzaprine (FLEXERIL) 5 MG tablet Comments: Reason for Stopping: HYDROcodone-acetaminophen (NORCO) 5-325 MG tablet Comments: Reason for Stopping: Katja Wilcox, 4th Year Student Pharmacist HOLOGY DEPARTMENT CHAIR Plan of Care - Tiff Collins RN - 08/16/2020 4:49 AM CST Patient AVSS overnight. Asleep between cares, but reporting pain 8/10 once woken for medications. Moving well, independently up to toilet, positioning, etc. Oxycodone q4h per request in addition to scheduled Tylenol and Valium. Lidocaine patches removed at 0300 per order. Spinal dressing removed by neurosurgery MD this morning. Drinking well, good UOP. Mother at bedside. Hopeful for discharge today. HOLOGY DEPARTMENT CHAIR Plan of Care - Henna Murray RN - 08/15/2020 10:58 PM CST Afebrile, VSS on RA. C/O of worsening pain with scheduled Tylenol and PRN Oxy 5 mg q4h. One time additional dose of Oxy 5 mg given, pt falling asleep after dose. Will continue to monitor over night. Adequate I/O. Pt up ambulating to bathroom. Mother at bedside. Possible discharge tomorrow. Will continue to monitor. HOLOGY DEPARTMENT CHAIR Provider Notification - Henna Murray RN - 08/15/2020 8:41 PM PSYCHOLOGY DEPARTMENT CHAIR [facility] Resident Mg notified via [facility] paging that pt crying and reporting extreme pain in mid-back.States Oxy and Tylenol do not help with pain. Nurse was in room 10 minutes prior to being called, and pt stated pain was tolerable at the time and agreed with the plan for scheduled Valium at 2130 and PRN Oxy q4h, next dose at 0000. Resident requested to see patient and discuss pain management plan with family. No new orders at this time, will continue to monitor. HOLOGY DEPARTMENT CHAIR Plan of Care - eTss Gutierrez RN - 08/15/2020 3:44 PM CST VSS. Afebrile. Rating back pain 7-8/10. Pain controlled with PRN [place] x1 (now discontinued), scheduled Valium, PRN Oxycodone, and Lidocaine patch. Ketamine gtt stopped per orders. Ice packs also applied. Patient took shower today and walked around m[place] x2 with PT. Voiding well. Having loose stools - bowel medications held this AM. Mother at bedside and updated on POC. Will continue to monitor and update with changes. HOLOGY DEPARTMENT CHAIR Plan of Care - Mariposa Garcia, PT - 08/15/2020 2:32 PM CST Physical Therapy Discharge Summary Reason for therapy discharge: Discharged to home with outpatient therapy. Progress towards therapy goal(s). See goals on Care Plan in [facility] electronic health record for goal details. Goals met Therapy recommendation(s): Continued therapy is recommended. Rationale/Recommendations: Continued therapy recommended to progress core strength, address muscular imbalances and assist patient with safe progression of strengthening with good body mechanics. HOLOGY DEPARTMENT CHAIR Provider Notification - Tess Gutierrez RN - 08/15/2020 7:56 AM CST 08/15/20 0747 08/15/20 0754 Vitals BP 95/50 90/48 Patient Position Lying Lying Site Arm, upper left Arm, upper left Mode Electronic Electronic Cuff Size Adult Adult Patient with x2 soft BPs. Pt sleeping. Purple team notified. Will continue to monitor and update with changes. HOLOGY DEPARTMENT CHAIR Plan of Care - Berlin Downs RN - 08/15/2020 6:46 AM CST Pt calm and appearing happy during evening, slept well through the night. Pain 8/10 while awake and 6-7/10 overnight. No nonverbal indicators of pain observed. Pain/discomfort controlled with Ketamine gtt, [place] Q4, and Valium. Neuro checks WDL. Pt moving well, stand-by assist. Drinking well. Having loose stools, Miralax and Senna held. Voiding well. Mother at bedside. Plan to continue monitoring. HOLOGY DEPARTMENT CHAIR Plan of Care - Tiff Gonzales RN - 08/14/2020 7:24 PM CST Pain control an issue [id number]. Pt continues to need pain meds when able to administer. Pain rated 8/10 and is constant never changing in lower back region. Pt changes position independently and standby assist when up to BR. When asked how many times she has been uu to bathroom Numerous is response. Pt having loose stool and urinating. She did eat and drinking good amount of fluids. Parents at bedside and attentive to needs. Will continue to monitor. HOLOGY DEPARTMENT CHAIR Plan of Care - Keily Cardona OT - 08/14/2020 12:18 PM CST Occupational Therapy Discharge Summary Reason for therapy discharge: All goals and outcomes met, no further needs identified. Progress towards therapy goal(s). See goals on Care Plan in [facility] electronic health record for goal details. Goals met Therapy recommendation(s): Pt safe to discharge to home with assist as needed for ADLs. Pt has a shower chair at home. HOLOGY DEPARTMENT CHAIR Plan of Care - David Ayala RN - 08/14/2020 5:57 AM CST VSS. Afebrile. Neuro status intact. Rating pain 10/10, but not worse than previous shift. Pt also stated she was able to get some sleep. Maintained O2 sats on room air. Small amount of PO intake overnight. Urine output a bit low, but will likely void when she wakes up in morning. Will continue to monitor. HOLOGY DEPARTMENT CHAIR Plan of Care - Reyna Edwards RN - 08/13/2020 10:07 PM CST Tmax 100.4, 99.6 re-check. BP 87/37, MD notified, recheck was WDL. Other VSS. Lung sounds clear. Pt c/o 9-10/10 back pain. Took 2 bumps from fentanyl ENROBER TENDER and 2 denied. Ketamine gtt remains unchanged. Pt c/o headache, received [place] x 1 with little effect. Good UOP. Dressings remain clean, dry, and intact. Stool softeners held per patient request. Hourly rounding complete. Will continue to monitor andassess. HOLOGY DEPARTMENT CHAIR Plan of Care - Mariposa Garcia, PT - 08/13/2020 12:18 PM CST PT: Unit 6 - Dakota seen by PT for progression of safe mobility and for education on updated mobilitygoals. Patient reporting 9/10 pain throughout session but mobilizing very well while holding conversation with PT during ambulation and stairs. Completing x8 6' stairs with supervision and ambulating 300' with supervision. Safe for discharge from PT perspective HOLOGY DEPARTMENT CHAIR Plan of Care - Marine Paredes RN - 08/13/2020 7:52 AM CST [id number]: Afebrile, VSS LSC on RA. Pain 9/10 with scheduled tylenol, cold packs, continuous ketamine and ENROBER TENDER fentanyl with 5 bumps taken 8 denied. Appeared to sleep well between cares. No nausea. Dressing on back c/d/I- no changes. No c/o nausea. PIV in R arm fell out this AM- replaced without issue.Up to commode with pt's mother's assistance overnight. No stool. Hourly rounding completed, continueto monitor and notify team of changes/concerns. HOLOGY DEPARTMENT CHAIR Plan of Care - Tess Gutierrez RN - 08/12/2020 4:10 PM CST Pt arrived to unit from PICU at 1150. VSS. Afebrile. Rating pain 9/10. Pain controlled with Ketaminegtt, Fentanyl ENROBER TENDER with one time clinician bolus as ordered, scheduled Tylenol, and scheduled Valium.When patient arrived to unit, both PIVs noted to be infiltrated. x2 new PIVs placed per vascular access. IVMF infusing @ 100 ml/hr. Fair fluid intake. Fair appetite. Denies nausea. Adequate UO. Pt having diarrhea (has had 4-5 loose stools since arriving to unit) after taking milk of magnesia this AM. Mother at bedside and updated on POC. Will continue to monitor and update with changes. HOLOGY DEPARTMENT CHAIR Plan of Care - Janett Hylton RN - 08/12/2020 6:25 AM CST Afebrile through shift. Decreased BP early in the night, increased MIVF, BP stabilized. Up to commode and dangled at bedside for 5 minutes with no dizziness or increased pain. Ketamine gtt continuing, PRN zofran given x2. Previously ordered fentanyl gtt not started. Increased oral intake this shift, normoactive bowel sounds. No increased bleeding/drainage on spinal dressing. Mother and patient involved in the plan of care. HOLOGY DEPARTMENT CHAIR Provider Notification - Aliza Brannon RN - 08/11/2020 10:59 PM CST 08/11/20 2200 Vitals BP (!) 84/43 RN notified Resident Marina CONCEPCION of BP lower than parameters. MIVF started at 100ml/hr - will reevaluate at 0000 regarding next steps/improvements in BP. Will continue to monitor. HOLOGY DEPARTMENT CHAIR Plan of Care - Ruby Goel RN - 08/11/2020 7:57 PM CST Patient's VSS and remained afebrile. Adjustments made to patient's pain medications. Shortly after initiating dilaudid gtt patient started to become confused and slightly delirious. Resident notified and gtt stopped. Minimal PO intake PRN zofran x2. Mom at bedside and updated on POC. HOLOGY DEPARTMENT CHAIR Provider Notification - Estee Braden CNP - 08/11/2020 3:43 PM CST [facility] Stopped by patient room and attempted to see patient today but patient was asleep. Provided support for mother who discussed the challenges of this admission and her frustration and sadness with how long it is taking Dakota to feel better and less pain. Encouraged mother to take breaks for herself and keep up self-care as is possible. Informed her we will continue to check on Dakota and support her as is clinically possible. Estee Braden APRN, CPNP, HNB- Pediatric Nurse Practitioner [facility] HOLOGY DEPARTMENT CHAIR Plan of Care - Sammie Clifton RN - 08/10/2020 9:15 PM CST Upon start of shift, art line dampened and unable to draw. Informed resident and given the ok to remove art line. L hand PIV unable to flush either so also removed. Zofran given around the clock all night. Complaining of pain constantly but falls back asleep easily, morphine bolus x 3. Sleeping well, turns herself. Using bedpan as pt is too scared to get up to commode cause she doesn't wanna faint. HOLOGY DEPARTMENT CHAIR Plan of Care - Desire Thomas RN - 08/10/2020 6:29 PM CST Afebrile. Pt remains on morphine gtt with no change to continuous rate. C/o pain 9-1,000 on a scale of 0-10 with minimal relief from prn pain medication however states cooling blanket is helpful. Integrative therapies and PACT consulted today. Prn morphine given x2, prn dose decreased. Pt remains on scheduled valium and tylenol. Zofran prn x1. OOB to chair and commode x1. [place] removed and pt has voided x2 since removal. Good PO intake. Slightly lightheaded when getting in and out of bed. Remains onlidocaine gtt with no changes to rate and no signs of toxicity. Minimal output from hemovac drain. Mom at bedside throughout the day, dad here this afternoon. Will continue to monitor. HOLOGY DEPARTMENT CHAIR Plan of Care - Benson Edwards, OT - 08/10/2020 12:41 PM CST OT: Cancel, Pt not appropriate for OT evaluation at this time, will hold OT evaluation at this time and will reschedule evaluation as appropriate. HOLOGY DEPARTMENT CHAIR Plan of Care - Janice Stallworth RN - 08/09/2020 10:21 PM CST Pt rating pain 1000/10, but falls asleep easily during/after cares. PRN morphine bolus x3. Neuros intact, though very sedated after PRNs. Repositioning well with minimal assistance. Hypoactive bowel sounds, tolerated clear liquids. Small amounts of bloody drainage from hemovac. Coags within range, no replacements needed. Mom at bedside, updated on POC. Will continue to monitor. HOLOGY DEPARTMENT CHAIR Op Note - Catina Ha MD - 08/09/2020 7:03 PM CST Procedure Date: 08/09/2020 PREOPERATIVE DIAGNOSES: 1. Scoliosis. 2. Status post spinal fusion. 3. History of tethered spinal cord status post release. 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 POSTOPERATIVE DIAGNOSES: 1. Scoliosis. 2. Status post spinal fusion. 3. History of tethered spinal cord status post release. 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 6. 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 OPERATION PERFORMED: 1. Reinsertion of segmental spinal instrumentation T4 to L4 -22 modifier. 2. Pseudoarthrosis repair at 4 levels. 3. Image-guided spine surgery. 4. Skin biopsy. 5. Scar revision, 44 cm. SURGEON: Catina Ha Jr., MD CAKE PRESS OPERATOR: Victor Hugo Talbot MD, resident. INDICATION FOR OPERATION: The patient is a 20-year-old female with a complex spinal history. [facility]. She underwent a tethered cord releaseby Dr. Girish Hammond. She then underwent a posterior spinal fusion by Dr. Cobos in 01/2016. She had pain f ollowing the surgery, underwent removal of a right T8 hook. She was then subsequently seen by Dr. Perez and then Dr. Muro at [facility]. 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 She saw Dr. Muro at [facility], who felt that she had symptoms at the level of her crosslink, and the crosslink was removed, which resulted in some improvement, and then she got worse. She was then seen at [facility], where she was undergoing [facility] physical therapy, and it got to the point where she was unable to proceed with that. There was a significant discussion about the potential for metal allergy being the source of thepain, and when she presented to me, that was part of the discussion. Also she had been labeled as having von Willebrand's, although the testing for this was not clear. She underwent an extended evaluation by Dr. Mariposa Atwood from Pediatric Hematology trying to sort this out. 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 Extensive discussion was had with the family about treatment options. It was their desire to undergo instrumentation removal and see how she did. As part of the workup, I obtained aFerguson view of the pelvis, and this showed a significant transitional anatomy with an oblique takeoff, which I believe has been contributing to the scoliosis all along. This is a congenital anomaly and may or may not be part of the problem and that she had in conjunction with her tethered cord, alsobeing a congenital anomaly. We had extended discussions about the treatment options, and I explainedthe risk of simply removing the instrumentation with a 30% quoted rate of potential recurrence of deformity, but it was the patient's and the family's desire to proceed with instrumentation removal, and I agreed. Arrangements were made to have a pediatric state comptroller in attendance in the OR to help manage her bleeding issues and bleeding problems. DESCRIPTION OF PROCEDURE: The OR team was briefed about the plan. The patient was brought to the operating room and underwent the induction of adequate general anesthesia, the patient was positioned prone on a 4-ending machine operator frame. She was then prepared and draped in the usual sterile fashion. A timeout wasdone, confirming the site and type of surgery, and she did receive prophylactic antibiotics. She wasalso on our standard high-dose tranexamic acid protocol with 30 mg/kg as a bolus and then 10 mg/kg per hour as a drip. She has significant widened scar, so we excised the scar, and at the request of Dr. Atwood, this tissue was sent to the lab for subsequent potential for fibroblastic cultures to do genetic analysis totry to understand her bleeding disorder better. Of note is this scar was 44 cm in length. So after the scar was excised, we then progressively exposed the spine. Of note is that it was difficult to expose the spine, as the soft tissues were adherent to the fusion mass in multiple areas. Oftentimes, this can be an indication of a pseudarthrosis, as opposed to where the bone is well-healed, where it peels off easily. The instrumentation was exposed, the set plugs were removed, the rods were removed and then the hooks and screws removed. At that point, we began exploring the fusion mass, and we found a significant pseudoarthrosis with independent motion in the upper thoracic spine, and at that point,I broke scrub and went out and explained to the family that she did have significant pseudoarthrosisand that simply removing the instrumentation would result in significant problems for her down the road and that it is quite possible that this pseudoarthrosis could in fact be an explanation for her pain pattern, so we had the discussion, and my recommendation, as I had discussed with them in clinic,was that we reinserted instrumentation. I returned to the OR, having obtained consent for instrumentation and having specifically discussed the physician-directed use of rhBMP-2 for pseudoarthrosis repair as the best strategy to try to get this to heal, and directed the team to make arrangements for this. Of note is that because of her potential history of metal allergy, the plan was to make the instrumentation all titanium, and this required the use of fixed-angled screws, as the other multiaxial screws are cobalt chrome heads rather than all titanium. Titanium has the lowest metal sensitivity compared to all other metals used for instrumentation. Because of the complexity of the fusion mass, it was my plan to utilize the O- arm and [employer] navigation in order to place screws. The spinous processes had been removed, so a spinous process clamp wasnot an option. We placed screws at the lower lumbar segments where they had been removed and had been in previous good position, and these were from the [employer] Solera system, fixed-head screws, all titanium, and at L4 on the left, we placed a 6.5 x 45, and at L2 on the left a 5.5 x 45. We now obtained intraoperative 3D images, which were transferred the [employer] image-guided workstation and allowedus to place other screws. At L3 on the right, we placed a 6.5 x 45, and on L4 at the right a 6.5 x 50, L1 right 5.5 x 50. There was an apparent pseudoarthrosis in the lower lumbar spine, and then we proceeded on up and at T11 placed 5.5 x 45 screws bilaterally, and at T10 5.5 x 40 bilaterally. Of noteis there was marked pseudoarthrosis at T10-T11, which we had curetted and cleaned out. Next, we moved up to the T7 level, where we placed 5.5 x 35 on the left, 5.5 x 40 on the right; T6, 4.5 x 40 bilaterally and T4 left, 4.5 x 35. On the right, the pedicle was so small as to not tolerate a screw, and so we placed a downgoing transverse process wide-blade hook, and this was to address the T4-T5 pseudoarthrosis.This process took twice as long as usual because of the prior fusion attempts an altered anatomy. 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 The pseudoarthroses were aggressively cleaned out. Appropriate length rods were cut and contoured and seated into place, and minimal deformity correction was performed. We were not doing intraoperative neurologic monitoring, so we performed a wake- up test, and she was able to actively plantar and dorsiflex both feet after the rods were placed, and at this point, we aggressively decorticated the pseudoarthrosis. I feathered the fusion mass above and below each of the p seudoarthrosis levels utilizing an osteotome. We then utilized rhBMP-2 along with allograft bone. Weutilized a large and a medium kit and performed a posterior and posterolateral fusion at each of thepseudoarthrosis levels, so we bone grafted from T4 through L3. The wound had been irrigated out copiously multiple times, and now we performed a complex closure. Number 1 absorbable sutures were used to reapproximate the thoracolumbar fascia, then a #1 suture was used in a oversewing fashion to close this in a watertight fashion. An 1/8- inch Hemovac drain was placed superficial to the fascia and brought out proximally on the right side. We then performed deep horizontal mattress sutures to reapproximate subcutaneous tissue, followed by 2-0 subcutaneous suture, followed by 4-0 intradermal suture, followed by benzoin and Steri-Strips. Of note, this closure was more complex because of the scar excision and because of her multiple prior surgeries. Of note is we had obtained 2D images after the rods were placed. She does have significant residual scoliosis, in part due to the oblique takeoff from thetransitional vertebra, but it appears that we potentially improved the overall alignment somewhat. We will have to see what things look like when she is upright and standing, and I do not think this will be her last operation, but that the starting point is to get the pseudoarthrosis to heal, and thenif this is solid and she is still having symptoms in 6 months or a year and a CT scan shows that sheis solidly healed, I would consider removing the instrumentation again at that time. If she is having residual symptoms from the transitional segment, then a more complicated surgical strategy may be necessary to address this particular problem. Estimated blood loss for this case was 330 mL in a patient with an estimated blood volume of 3800 mL. She received 123 mL back via Cell Saver return. There was no intraoperative blood transfusion given. Of note is Dr. Gerry Cruz from Pediatric Hematology was in the room throughout the duration of surgery and performed, along with our Anesthesia team, intraoperative labs monitoring. Of note is that her fibrinogen did begin to drop at the end of the case, and this will be managed with continued postoperative tranexamic acid and then balanced replacement as needed. Upon completion of the ren and critical portions of the case, I went and spoke to the parents again and gave them copies of the intraoperative imaging, explained what had gone on, and then after this Iwent and spoke to the Pediatric ICU team along with Dr. Cruz to explain the plan. Her expected length of stay is probably about 5 days, and I will defer to the Pediatric Hematology team about hematologic management. She will be on IV lidocaine while in the Pediatric ICU for pain control, and then we will ask the Pediatric Pain Team to provide recommendations as well. In addition, we will ask Endocrinology to see her to help understand her bone healing problems as well. CATINA HA JR, MD MT: J[place] Name: DAKOTA CASIANO Account: [id number] : 2000 Procedure Date: 08/09/2020 Document: [id number] cc: Marilyn Muro MD Copy for Patient [facility] Brannon Perez MD HOLOGY DEPARTMENT CHAIR Plan of Care - Jazzmine Max RN - 08/09/2020 7:02 PM CST Pt post op from unexpected addition of new spinal hardware instead of only removal of old hardware. Pt expressing a lot of pain, total of 4mg morphine given from [id number] as well as 1 dose of atarax, this has been tolerable for pt as she has been sleeping since the last 1730 prn dose given. Still taking just water. Post op labs still [id number]. Mom updated on poc, continue to monitor. HOLOGY DEPARTMENT CHAIR Pharmacy-Admission Medication History - Robert Ying RPH - 08/09/2020 3:05 PM CST Admission medication history interview status for the 08/09/2020 admission is complete. See [facility] admission navigator for allergy information, pharmacy, prior to admission medications and immunization status. 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 Auth Provider cholecalciferol (VITAMIN D3) 125 mcg (5000 units) capsule Take by mouth daily 08/08/2020 at Unknown time Yes Reported, Patient cyclobenzaprine (FLEXERIL) 5 MG tablet Take 1 tablet by mouth 2 times daily 08/08/2020 at Unknown timeYes Reported, Patient HYDROcodone-acetaminophen (NORCO) 5-325 MG tablet Take 1 tablet by mouth every 6 hours as needed Past Week at Unknown time Yes Reported, Patient Norethindrone Acet-Ethinyl Est (LOESTRIN 08/24, 21, PO) Take by mouth daily 08/08/2020 at Unknown time Yes Reported, Patient sertraline (ZOLOFT) 100 MG tablet Take 100 mg by mouth daily Yes Unknown, Entered By History Medication history completed by: Robert Ying [facility] HOLOGY DEPARTMENT CHAIR Brief Op Note - Victor Hugo Talbot MD - 08/09/2020 1:07 PM CST [facility]?? Brief Operative Note Pre-operative diagnosis: Scoliosis [M41.9] Painful orthopaedic hardware (H) [T84.84XA] Post-operative diagnosis Scoliosis [M41.9] Painful orthopaedic hardware (H) [T84.84XA] Procedure: Procedure(s): Reinsert Segmental Instrumentation Thoracic 4 - Lumbar 4, pseudarthrosis repair four sites, image guided surgery, Scar Revision, Skin Biopsy Surgeon: Surgeon(s) and Role: * Catina Ha MD - Primary * Azar Cruz MD - Assisting * Victor Hugo Talbot MD - Assisting Anesthesia: General Estimated blood loss: 330cc + 123cc returned via CellSaver Drains: Hemovac Specimens: ID Type Source Tests Collected by Time Destination 1 : Skin Tissue from Back Tissue Other LABORATORY MISCELLANEOUS ORDER Catina Ha MD 08/09/2020 9:25 AM Findings: 4 locations of pseudarthrosis, reinstrumented. Good placement of instrumentation on final imaging. Complications: None. Implants: Implant Name Type Inv. Item Serial No. Benefits Technician Lot No. LRB No. Used Action EXPLANTED SPINAL HARDWARE N/A 1 Explanted GRAFT BONE CRUSH CANC 30ML [id number] Bone/Tissue/Biologic GRAFT BONE CRUSH CANC 30ML [id number] MUSCULOSKELETAL RAMIREZ N/A 1 Implanted GRAFT BONE CRUSH CANC 30ML [id number] Bone/Tissue/Biologic GRAFT BONE CRUSH CANC 30ML [id number] MUSCULOSKELETAL RAMIREZ N/A 1 Implanted IMP SCR SET MEDT SOLERA BREAK OFF 5.5MM TI [id number] Metallic Hardware/[employer] IMP SCR SET MEDT SOLERA BREAK OFF 5.5MM TI [id number] [employer] INC N/A 15 Implanted IMP SCR MEDT 5.5/6.0MM SOLERA 6.5X45MM FA TI [id number] Metallic Hardware/[place] IMP SCR MEDT 5.5/6.0MM SOLERA 6.5X45MM FA TI [id number] [employer] N/A 2 Implanted IMP SCR MEDT 5.5/6.0MM SOLERA 6.5X50MM FA TI [id number] Metallic Hardware/[place] IMP SCR MEDT 5.5/6.0MM SOLERA 6.5X50MM FA TI [id number] [employer] N/A 1 Implanted IMP SCR MEDT 5.5/6.0MM SOLERA 5.5X45MM FA TI [id number] Metallic Hardware/[place] IMP SCR MEDT 5.5/6.0MM SOLERA 5.5X45MM FA TI [id number] [employer] N/A 3 Implanted IMP SCR MEDT 5.5/6.0MM SOLERA 5.5X50MM FA TI [id number] Metallic Hardware/[place] IMP SCR MEDT 5.5/6.0MM SOLERA 5.5X50MM FA TI [id number] [employer] N/A 1 Implanted IMP SCR MEDT 5.5/6.0MM SOLERA 5.5X40MM FA TI [id number] Metallic Hardware/[place] IMP SCR MEDT 5.5/6.0MM SOLERA 5.5X40MM FA TI [id number] [employer] N/A 3 Implanted IMP SCR MEDT 5.5/6.0MM SOLERA 5.5X35MM FA TI [id number] Metallic Hardware/[place] IMP SCR MEDT 5.5/6.0MM SOLERA 5.5X35MM FA TI [id number] [employer] N/A 1 Implanted IMP SCR MEDT 5.5/6.0MM SOLERA 4.5X40MM FA TI [id number] Metallic Hardware/[place] IMP SCR MEDT 5.5/6.0MM SOLERA 4.5X40MM FA TI [id number] [employer] N/A 2 Implanted IMP SCR MEDT 5.5/6.0MM SOLERA 4.5X35MM FA TI [id number] Metallic Hardware/[place] IMP SCR MEDT 5.5/6.0MM SOLERA 4.5X35MM FA TI [id number] [employer] N/A 1 Implanted IMP SANDY MEDT SOLERA TIAL STR LINED 5.9H345JN [id number] Metallic Hardware/[place] IMP SANDY MEDT SOLERATIAL STR LINED 5.9O952NN [id number] [employer] N/A 2 Implanted Medtronic NB Hook [employer] N/A 1 Implanted GRAFT BONE INFUSE BMP LG II [id number] GRAFT BONE INFUSE BMP LG II [id number] [employer], [employer] [id number] N/A 1 Implanted GRAFT BONE INFUSE BMP MED [id number] GRAFT BONE INFUSE BMP MED [id number] [employer] [id number] N/A 1 Implanted HOLOGY DEPARTMENT CHAIR documented in this encounter Plan of Treatment Pending Results Name Type Priority Associated Diagnoses Date/Ti me CBC with platelets Lab Timed Scoliosis 6:49 AM PSYCHOLOGY DEPARTMENT CHAIR Scheduled Referrals Name Type Priority Associated Diagnoses Order S chedule PHYSICAL THERAPY Referral Routine 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 INR Routine 08/15/2020 8:46 [place] Results for this AM PSYCHOLOGY DEPARTMENT CHAIR procedure are i n the results section. PARTIAL THROMBOPLASTIN Routine 08/15/2020 8:46 [place] Re sults for this TIME AM PSYCHOLOGY DEPARTMENT CHAIR procedure are i n the results section. FIBRINOGEN ACTIVITY Routine 08/15/2020 8:46 [place] Resul ts for this AM PSYCHOLOGY DEPARTMENT CHAIR procedure are i n the results section. CBC WITH PLATELETS Routine 08/15/2020 8:46 [place] Result s for this AM PSYCHOLOGY DEPARTMENT CHAIR procedure are i n the results section. TEG WITHOUT HEPARINASE Routine 08/14/2020 7:07 [place] Re sults for this AM PSYCHOLOGY DEPARTMENT CHAIR procedure are i n the results section. INR Routine 08/14/2020 7:07 [place] Results for this AM PSYCHOLOGY DEPARTMENT CHAIR procedure are i n the results section. PARTIAL THROMBOPLASTIN Routine 08/14/2020 7:07 [place] Re sults for this TIME AM PSYCHOLOGY DEPARTMENT CHAIR procedure are i n the results section. FIBRINOGEN ACTIVITY Routine 08/14/2020 7:07 [place] Resul ts for this AM PSYCHOLOGY DEPARTMENT CHAIR procedure are i n the results section. CBC WITH PLATELETS Routine 08/14/2020 7:07 [place] Result s for this AM PSYCHOLOGY DEPARTMENT CHAIR procedure are i n the results section. TEG WITHOUT HEPARINASE Routine 08/13/2020 3:11 [place] Re sults for this PM PSYCHOLOGY DEPARTMENT CHAIR procedure are i n the results section. CBC WITH PLATELETS Timed 08/13/2020 3:11 [place] Result s for this PM PSYCHOLOGY DEPARTMENT CHAIR procedure are i n the results section. CBC WITH PLATELETS Routine 08/13/2020 7:58 [place] Result s for this AM PSYCHOLOGY DEPARTMENT CHAIR procedure are i n the results section. INR Timed 08/13/2020 6:49 [place] Results for this AM PSYCHOLOGY DEPARTMENT CHAIR procedure are i n the results section. PARTIAL THROMBOPLASTIN Timed 08/13/2020 6:49 [place] Re sults for this TIME AM PSYCHOLOGY DEPARTMENT CHAIR procedure are i n the results section. FIBRINOGEN ACTIVITY Timed 08/13/2020 6:49 [place] Resul ts for this AM PSYCHOLOGY DEPARTMENT CHAIR procedure are i n the results section. BASIC METABOLIC PANEL Timed 08/13/2020 6:49 [place] Res ults for this AM PSYCHOLOGY DEPARTMENT CHAIR procedure are i n the results section. CBC WITH PLATELETS Timed 08/13/2020 6:49 [place] AM PSYCHOLOGY DEPARTMENT CHAIR INR Timed 08/12/2020 7:30 [place] Results for this PM PSYCHOLOGY DEPARTMENT CHAIR procedure are i n the results section. PARTIAL THROMBOPLASTIN Timed 08/12/2020 7:30 [place] Re sults for this TIME PM PSYCHOLOGY DEPARTMENT CHAIR procedure are i n the results section. FIBRINOGEN ACTIVITY Timed 08/12/2020 7:30 [place] Resul ts for this PM PSYCHOLOGY DEPARTMENT CHAIR procedure are i n the results section. CBC WITH PLATELETS Timed 08/12/2020 7:30 [place] Result s for this PM PSYCHOLOGY DEPARTMENT CHAIR procedure are i n the results section. EKG 12-LEAD, TRACING Routine 08/12/2020 6:42 Resu lts for this ONLY PM PSYCHOLOGY DEPARTMENT CHAIR procedure are i n the results section. XR THORACIC LUMBAR Routine 08/12/2020 6:07 Result s for this STANDING 2 VIEWS PM PSYCHOLOGY DEPARTMENT CHAIR procedure a re in the results section. XR BONE SURVEY COMPLETE Routine 08/12/2020 6:06 R esults for this PEDS PM PSYCHOLOGY DEPARTMENT CHAIR procedure are i n the results section. TEG WITHOUT HEPARINASE Routine 08/12/2020 8:11 [place] Re sults for this AM PSYCHOLOGY DEPARTMENT CHAIR procedure are i n the results section. INR Timed 08/11/2020 5:22 [place] Results for this PM PSYCHOLOGY DEPARTMENT CHAIR procedure are i n the results section. PARTIAL THROMBOPLASTIN Timed 08/11/2020 5:22 [place] Re sults for this TIME PM PSYCHOLOGY DEPARTMENT CHAIR procedure are i n the results section. FIBRINOGEN ACTIVITY Timed 08/11/2020 5:22 [place] Resul ts for this PM PSYCHOLOGY DEPARTMENT CHAIR procedure are i n the results section. CBC WITH PLATELETS Timed 08/11/2020 5:22 [place] Result s for this PM PSYCHOLOGY DEPARTMENT CHAIR procedure are i n the results section. TEG WITHOUT HEPARINASE Timed 08/11/2020 10:03 [place] R esults for this AM PSYCHOLOGY DEPARTMENT CHAIR procedure are i n the results section. INR Timed 08/11/2020 10:03 [place] Results for this AM PSYCHOLOGY DEPARTMENT CHAIR procedure are i n the results section. PARTIAL THROMBOPLASTIN Timed 08/11/2020 10:03 [place] R esults for this TIME AM PSYCHOLOGY DEPARTMENT CHAIR procedure are i n the results section. FIBRINOGEN ACTIVITY Timed 08/11/2020 10:03 [place] Resu lts for this AM PSYCHOLOGY DEPARTMENT CHAIR procedure are i n the results section. CBC WITH PLATELETS Timed 08/11/2020 10:03 [place] Resul ts for this AM PSYCHOLOGY DEPARTMENT CHAIR procedure are i n the results section. TEG WITHOUT HEPARINASE Timed 08/11/2020 6:09 [place] Re sults for this AM PSYCHOLOGY DEPARTMENT CHAIR procedure are i n the results section. INR Timed 08/11/2020 6:09 [place] Results for this AM PSYCHOLOGY DEPARTMENT CHAIR procedure are i n the results section. PARTIAL THROMBOPLASTIN Timed 08/11/2020 6:09 [place] Re sults for this TIME AM PSYCHOLOGY DEPARTMENT CHAIR procedure are i n the results section. FIBRINOGEN ACTIVITY Timed 08/11/2020 6:09 [place] Resul ts for this AM PSYCHOLOGY DEPARTMENT CHAIR procedure are i n the results section. CBC WITH PLATELETS Timed 08/11/2020 6:09 [place] Result s for this AM PSYCHOLOGY DEPARTMENT CHAIR procedure are i n the results section. TEG WITHOUT HEPARINASE Timed 08/10/2020 9:50 [place] Re sults for this PM PSYCHOLOGY DEPARTMENT CHAIR procedure are i n the results section. INR Timed 08/10/2020 9:50 [place] Results for this PM PSYCHOLOGY DEPARTMENT CHAIR procedure are i n the results section. PARTIAL THROMBOPLASTIN Timed 08/10/2020 9:50 [place] Re sults for this TIME PM PSYCHOLOGY DEPARTMENT CHAIR procedure are i n the results section. FIBRINOGEN ACTIVITY Timed 08/10/2020 9:50 [place] Resul ts for this PM PSYCHOLOGY DEPARTMENT CHAIR procedure are i n the results section. CBC WITH PLATELETS Timed 08/10/2020 9:50 [place] Result s for this PM PSYCHOLOGY DEPARTMENT CHAIR procedure are i n the results section. TEG WITHOUT HEPARINASE Timed 08/10/2020 4:00 [place] Re sults for this PM PSYCHOLOGY DEPARTMENT CHAIR procedure are i n the results section. INR Timed 08/10/2020 4:00 [place] Results for this PM PSYCHOLOGY DEPARTMENT CHAIR procedure are i n the results section. PARTIAL THROMBOPLASTIN Timed 08/10/2020 4:00 [place] Re sults for this TIME PM PSYCHOLOGY DEPARTMENT CHAIR procedure are i n the results section. FIBRINOGEN ACTIVITY Timed 08/10/2020 4:00 [place] Resul ts for this PM PSYCHOLOGY DEPARTMENT CHAIR procedure are i n the results section. CBC WITH PLATELETS Timed 08/10/2020 4:00 [place] Result s for this PM PSYCHOLOGY DEPARTMENT CHAIR procedure are i n the results section. TEG WITHOUT HEPARINASE Timed 08/10/2020 10:00 [place] R esults for this AM PSYCHOLOGY DEPARTMENT CHAIR procedure are i n the results section. INR Timed 08/10/2020 10:00 [place] Results for this AM PSYCHOLOGY DEPARTMENT CHAIR procedure are i n the results section. PARTIAL THROMBOPLASTIN Timed 08/10/2020 10:00 [place] R esults for this TIME AM PSYCHOLOGY DEPARTMENT CHAIR procedure are i n the results section. FIBRINOGEN ACTIVITY Timed 08/10/2020 10:00 [place] Resu lts for this AM PSYCHOLOGY DEPARTMENT CHAIR procedure are i n the results section. CBC WITH PLATELETS Timed 08/10/2020 10:00 [place] Resul ts for this AM PSYCHOLOGY DEPARTMENT CHAIR procedure are i n the results section. OPTICAL TRACKING SYSTEM Routine 08/10/2020 7:28 [place] FUSION SPINE POSTERIOR AM PSYCHOLOGY DEPARTMENT CHAIR Painful orthopaedi c THORACIC CHILD THREE+ hardware (H) LEVELS TEG WITHOUT HEPARINASE Timed 08/10/2020 4:00 [place] Re sults for this AM PSYCHOLOGY DEPARTMENT CHAIR procedure are i n the results section. INR Timed 08/10/2020 4:00 [place] Results for this AM PSYCHOLOGY DEPARTMENT CHAIR procedure are i n the results section. PARTIAL THROMBOPLASTIN Timed 08/10/2020 4:00 [place] Re sults for this TIME AM PSYCHOLOGY DEPARTMENT CHAIR procedure are i n the results section. FIBRINOGEN ACTIVITY Timed 08/10/2020 4:00 [place] Resul ts for this AM PSYCHOLOGY DEPARTMENT CHAIR procedure are i n the results section. CBC WITH PLATELETS Timed 08/10/2020 4:00 [place] Result s for this AM PSYCHOLOGY DEPARTMENT CHAIR procedure are i n the results section. TEG WITHOUT HEPARINASE Timed 08/09/2020 10:00 [place] R esults for this PM PSYCHOLOGY DEPARTMENT CHAIR procedure are i n the results section. INR Timed 08/09/2020 10:00 [place] Results for this PM PSYCHOLOGY DEPARTMENT CHAIR procedure are i n the results section. PARTIAL THROMBOPLASTIN Timed 08/09/2020 10:00 [place] R esults for this TIME PM PSYCHOLOGY DEPARTMENT CHAIR procedure are i n the results section. FIBRINOGEN ACTIVITY Routine 08/09/2020 10:00 [place] Resu lts for this PM PSYCHOLOGY DEPARTMENT CHAIR procedure are i n the results section. CBC WITH PLATELETS Timed 08/09/2020 10:00 [place] Resul ts for this PM PSYCHOLOGY DEPARTMENT CHAIR procedure are i n the results section. TEG WITHOUT HEPARINASE Timed 08/09/2020 5:54 [place] Re sults for this PM PSYCHOLOGY DEPARTMENT CHAIR procedure are i n the results section. INR Timed 08/09/2020 5:45 [place] Results for this PM PSYCHOLOGY DEPARTMENT CHAIR procedure are i n the results section. PARTIAL THROMBOPLASTIN Timed 08/09/2020 5:45 [place] Re sults for this TIME PM PSYCHOLOGY DEPARTMENT CHAIR procedure are i n the results section. FIBRINOGEN ACTIVITY Timed 08/09/2020 5:45 [place] Resul ts for this PM PSYCHOLOGY DEPARTMENT CHAIR procedure are i n the results section. CBC WITH PLATELETS Timed 08/09/2020 5:45 [place] Result s for this PM PSYCHOLOGY DEPARTMENT CHAIR procedure are i n the results section. MRSA MSSA PCR, NASAL STAT 08/09/2020 2:10 [place] Resu lts for this SWAB PM PSYCHOLOGY DEPARTMENT CHAIR procedure are i n the results section. TEG WITHOUT HEPARINASE STAT 08/09/2020 1:45 [place] Re sults for this PM PSYCHOLOGY DEPARTMENT CHAIR procedure are i n the results section. RENAL PANEL STAT 08/09/2020 1:45 [place] Results for this PM PSYCHOLOGY DEPARTMENT CHAIR procedure are i n the results section. INR STAT 08/09/2020 1:45 [place] Results for this PM PSYCHOLOGY DEPARTMENT CHAIR procedure are i n the results section. PREALBUMIN STAT 08/09/2020 1:45 [place] Results for this PM PSYCHOLOGY DEPARTMENT CHAIR procedure are i n the results section. PARTIAL THROMBOPLASTIN STAT 08/09/2020 1:45 [place] Re sults for this TIME PM PSYCHOLOGY DEPARTMENT CHAIR procedure are i n the results section. MAGNESIUM STAT 08/09/2020 1:45 [place] Results for this PM PSYCHOLOGY DEPARTMENT CHAIR procedure are i n the results section. IRON AND IRON BINDING Routine 08/09/2020 1:45 [place] Res ults for this CAPACITY PM PSYCHOLOGY DEPARTMENT CHAIR procedure are i n the results section. FIBRINOGEN ACTIVITY STAT 08/09/2020 1:45 [place] Resul ts for this PM PSYCHOLOGY DEPARTMENT CHAIR procedure are i n the results section. IONIZED CALCIUM STAT 08/09/2020 1:45 [place] Results f or this PM PSYCHOLOGY DEPARTMENT CHAIR procedure are i n the results section. CBC WITH PLATELETS STAT 08/09/2020 1:45 [place] Result s for this PM PSYCHOLOGY DEPARTMENT CHAIR procedure are i n the results section. XR SURGERY ELIER FLUORO Routine 08/09/2020 12:05 R esults for this LESS THAN 5 MIN PM PSYCHOLOGY DEPARTMENT CHAIR procedure ar e in the results section. TEG WITHOUT HEPARINASE Routine 08/09/2020 11:28 [place] R esults for this AM PSYCHOLOGY DEPARTMENT CHAIR procedure are i n the results section. INR Routine 08/09/2020 11:28 [place] Results for this AM PSYCHOLOGY DEPARTMENT CHAIR procedure are i n the results section. PARTIAL THROMBOPLASTIN Routine 08/09/2020 11:28 [place] R esults for this TIME AM PSYCHOLOGY DEPARTMENT CHAIR procedure are i n the results section. FIBRINOGEN ACTIVITY Routine 08/09/2020 11:28 [place] Resu lts for this AM PSYCHOLOGY DEPARTMENT CHAIR procedure are i n the results section. CBC WITH PLATELETS Routine 08/09/2020 11:28 [place] Resul ts for this AM PSYCHOLOGY DEPARTMENT CHAIR procedure are i n the results section. TEG WITHOUT HEPARINASE STAT 08/09/2020 9:50 [place] Re sults for this AM PSYCHOLOGY DEPARTMENT CHAIR procedure are i n the results section. ARTERIAL PANEL STAT 08/09/2020 9:50 [place] Results fo r this AM PSYCHOLOGY DEPARTMENT CHAIR procedure are i n the results section. INR STAT 08/09/2020 9:50 [place] Results for this AM PSYCHOLOGY DEPARTMENT CHAIR procedure are i n the results section. PARTIAL THROMBOPLASTIN STAT 08/09/2020 9:50 [place] Re sults for this TIME AM PSYCHOLOGY DEPARTMENT CHAIR procedure are i n the results section. FIBRINOGEN ACTIVITY STAT 08/09/2020 9:50 [place] Resul ts for this AM PSYCHOLOGY DEPARTMENT CHAIR procedure are i n the results section. LABORATORY Routine 08/09/2020 9:00 [place] Results for this MISCELLANEOUS ORDER AM PSYCHOLOGY DEPARTMENT CHAIR procedur e are in the results section. TEG WITHOUT HEPARINASE STAT 08/09/2020 8:45 [place] Re sults for this AM PSYCHOLOGY DEPARTMENT CHAIR procedure are i n the results section. ARTERIAL PANEL STAT 08/09/2020 8:45 [place] Results fo r this AM PSYCHOLOGY DEPARTMENT CHAIR procedure are i n the results section. INR STAT 08/09/2020 8:45 [place] Results for this AM PSYCHOLOGY DEPARTMENT CHAIR procedure are i n the results section. PARTIAL THROMBOPLASTIN STAT 08/09/2020 8:45 [place] Re sults for this TIME AM PSYCHOLOGY DEPARTMENT CHAIR procedure are i n the results section. FIBRINOGEN ACTIVITY STAT 08/09/2020 8:45 [place] Resul ts for this AM PSYCHOLOGY DEPARTMENT CHAIR procedure are i n the results section. CBC WITH PLATELETS STAT 08/09/2020 8:45 [place] Result s for this AM PSYCHOLOGY DEPARTMENT CHAIR procedure are i n the results section. BLOOD COMPONENT Routine 08/09/2020 7:30 [place] Results f or this AM PSYCHOLOGY DEPARTMENT CHAIR procedure are i n the results section. BLOOD COMPONENT Routine 08/09/2020 7:30 [place] Results f or this AM PSYCHOLOGY DEPARTMENT CHAIR procedure are i n the results section. ABO/RH TYPE AND SCREEN STAT 08/09/2020 7:30 [place] Re sults for this AM PSYCHOLOGY DEPARTMENT CHAIR procedure are i n the results section. GLUCOSE STAT 08/09/2020 7:30 [place] Results for this AM PSYCHOLOGY DEPARTMENT CHAIR procedure are i n the results section. HCG QUALITATIVE URINE STAT 08/09/2020 7:00 [place] Res ults for this AM PSYCHOLOGY DEPARTMENT CHAIR procedure are i n the results section. EXPLORE SPINE, REMOVE Routine 08/09/2020 6:48 [place] HARDWARE, COMBINED AM PSYCHOLOGY DEPARTMENT CHAIR Painful orthopaedic hardware (H) LAB RESULT - HIM SCAN 07/25/2020 12:00 AM PSYCHOLOGY DEPARTMENT CHAIR documented in this encounter Results Magnesium (10/13/2020 3:50 PM PSYCHOLOGY DEPARTMENT CHAIR) athologist Signature Magnesium 2.2 1.6 - 2.3 10/13/2020 [facility] mg/dL 4:40 PM [facility] Specimen Anatomical Collection Method Collection Time Receive d Time (Source) Location / / Volume Laterality Blood specimen 10/13/2020 3:50 PM 021 3:55 (specimen) PSYCHOLOGY DEPARTMENT CHAIR PM PSYCHOLOGY DEPARTMENT CHAIR Ed Bartholomew MD LAB - BLOOD ORDERABLES Performing Organization Address City/[facility]/ZIP [facility] Phon e Number [address] Phosphorus (10/13/2020 3:50 PM PSYCHOLOGY DEPARTMENT CHAIR) athologist Signature Phosphorus 4.5 2.5 - 4.5 10/13/2020 [facility] mg/dL 4:40 PM [facility] Specimen Anatomical Collection Method Collection Time Receive d Time (Source) Location / / Volume Laterality Blood specimen 10/13/2020 3:50 PM 021 3:55 (specimen) PSYCHOLOGY DEPARTMENT CHAIR PM PSYCHOLOGY DEPARTMENT CHAIR Ed Bartholomew MD LAB - BLOOD ORDERABLES Performing Organization Address City/State/ZIP Code Phon e Number [address] [address] [facility] Parathyroid Hormone Intact (10/13/2020 3:50 PM PSYCHOLOGY DEPARTMENT CHAIR) athologist Signature Parathyroid 30 18 - 80 10/14/2020 [facility] Hormone Intact pg/mL 1:47 AM [facility] Specimen Anatomical Collection Method Collection Time Receive d Time (Source) Location / / Volume Laterality Blood specimen 10/13/2020 3:50 PM 021 3:55 (specimen) PSYCHOLOGY DEPARTMENT CHAIR PM PSYCHOLOGY DEPARTMENT CHAIR Ed Bartholomew MD LAB - BLOOD ORDERABLES Performing Organization Address City/State/ZIP Code Phon e Number [facility] [address] [place] [address] [facility] Bone specific alk phosphatase (10/13/2020 3:50 PM PSYCHOLOGY DEPARTMENT CHAIR) athologist [facility] Bone Spec Alk 22.9 ug/L 10/14/2020 [facility] Phosphatase 5:10 PM PSYCHOLOGY DEPARTMENT CHAIR [facility] Comment: (Note) INTERPRETIVE INFORMATION: Bone Specific [...] specific alk burt phosphatase result. Performed By: [facility] [address] [place] [address] Rail Bender: Brandi Dooley MD Specimen Anatomical Collection Method Collection Time Receive d Time (Source) Location / / Volume Laterality Blood specimen 10/13/2020 3:50 PM 021 3:55 (specimen) PSYCHOLOGY DEPARTMENT CHAIR PM PSYCHOLOGY DEPARTMENT CHAIR Ed Bartholomew MD LAB - BLOOD ORDERABLES Performing Organization Address [facility] Phon e Number [id number] [place] [address] Osteocalcin (10/13/2020 3:50 PM PSYCHOLOGY DEPARTMENT CHAIR) athologist [facility] Osteocalcin 41 11 - 50 10/15/2020 [facility] ng/mL 5:26 PM [facility] Comment: (Note) INTERPRETIVE INFORMATION: Osteocalcin by [facility] In patients with renal failure the osteo calcin result can be elevated, both directly, due to impai red clearance and indirectly, due to renal osteodystrophy. Access complete set of age- and/or gende r-specific reference intervals for this test in the [facility] Test Directory ([employer]). Performed By: [facility] [address] [place] [address] Rail Bender: Brandi Dooley MD Specimen Anatomical Collection Method Collection Time Receive d Time (Source) Location / / Volume Laterality Blood specimen 10/13/2020 3:50 PM 021 3:55 (specimen) PSYCHOLOGY DEPARTMENT CHAIR PM PSYCHOLOGY DEPARTMENT CHAIR Ed Bartholomew MD LAB - BLOOD ORDERABLES Performing Organization Address [facility] Phon e Number [address] [place] [address] [facility] N telopeptide cross linked urine (10/13/2020 3:45 PM PSYCHOLOGY DEPARTMENT CHAIR) P athologist Signature N-Telopeptide 41 BCE/mM 10/15/2020 [facility] X-Link Urine 12:27 AM PSYCHOLOGY DEPARTMENT CHAIR [facility] Comment: (Note) Normal adult female: ??Premenopausal: [...] reference intervals for this test in the [facility] Test [facility] ([employer]). Creatinine Ur/Vol 90 mg/dL 10/15/2020 12:27 AM [facility] Comment: (Note) Performed By: [facility] [address] [place] [address] Rail Bender: Brandi Dooley MD Specimen Anatomical Collection Method Collection Time Receive d Time (Source) Location / / Volume Laterality Urine specimen 10/13/2020 3:45 PM 021 3:55 (specimen) PSYCHOLOGY DEPARTMENT CHAIR PM PSYCHOLOGY DEPARTMENT CHAIR Ed Bartholomew MD LAB - URINE ORDERABLES Performing Organization Address City/State/ZIP Code Phon e Number [facility] [address] [place] [address] [facility] (ABNORMAL) TEG without Heparinase (08/15/2020 8:46 AM PSYCHOLOGY DEPARTMENT CHAIR) Patholo gist Method Time Signature R time until clot 5.0 5 - 10 08/15/2020 [facility] forms Minute 10:37 AM [facility] K time to spec clot 1.1 1 - 3 08/15/2020 [facility] strength Minute 10:37 AM [facility] Angle rate of clot 63.3 53 - 72 08/15/2020 [facility] strength Degrees 10:37 AM [facility] MA maximum clot 73.6 (H) 50 - 70 mm 08/15/2020 [facility] F strength 10:37 AM [facility] CI hypercoagulation 2.4 0.0 - 3.0 08/15/2020 [facility] index Ratio 10:37 AM [facility] G actual clot 13.9 (H) 4.5 - 11.0 08/15/2020 [facility] strength Kd/sc 10:37 AM [facility] LY30 lysis at 30 2.2 0 - 8 % 08/15/2020 [facility] F minutes 10:37 AM [facility] LY60 lysis at 60 6.1 0 - 15 % 08/15/2020 [facility] F minutes 10:37 AM [facility] Specimen Anatomical Collection Method Collection Time Receive d Time (Source) Location / / Volume Laterality Blood specimen 08/15/2020 8:46 AM 021 8:47 (specimen) PSYCHOLOGY DEPARTMENT CHAIR AM PSYCHOLOGY DEPARTMENT CHAIR Miles Steel MD LAB - BLOOD ORDERABLES Performing Organization Address City/State/ZIP Code Phon e Number [facility] [address] [place] [address] [facility] Partial thromboplastin time (08/15/2020 8:46 AM PSYCHOLOGY DEPARTMENT CHAIR) P athologist Signature PTT 34 22 - 37 sec 08/15/2020 [facility] 9:13 AM [facility] Specimen Anatomical Collection Method Collection Time Receive d Time (Source) Location / / Volume Laterality Blood specimen 08/15/2020 8:46 AM 021 8:47 (specimen) PSYCHOLOGY DEPARTMENT CHAIR AM PSYCHOLOGY DEPARTMENT CHAIR Miles Steel MD LAB - BLOOD ORDERABLES Performing Organization Address City/State/ZIP Code Phon e Number [facility] OF M [facility] INR (08/15/2020 8:46 AM PSYCHOLOGY DEPARTMENT CHAIR) P athologist Signature INR 1.05 0.86 - 1.14 08/15/2020 [facility] 9:12 AM [facility] Specimen Anatomical Collection Method Collection Time Receive d Time (Source) Location / / Volume Laterality Blood specimen 08/15/2020 8:46 AM 021 8:47 (specimen) PSYCHOLOGY DEPARTMENT CHAIR AM PSYCHOLOGY DEPARTMENT CHAIR Miles Steel MD LAB - BLOOD ORDERABLES Performing Organization Address City/State/ZIP Code Phon e Number [facility] (ABNORMAL) Fibrinogen activity (08/15/2020 8:46 AM PSYCHOLOGY DEPARTMENT CHAIR) P athologist Signature Fibrinogen 685 (H) 200 - 420 08/15/2020 [facility] mg/dL 9:12 AM [facility] Specimen Anatomical Collection Method Collection Time Receive d Time (Source) Location / / Volume Laterality Blood specimen 08/15/2020 8:46 AM 021 8:47 (specimen) PSYCHOLOGY DEPARTMENT CHAIR AM PSYCHOLOGY DEPARTMENT CHAIR Miles Steel MD LAB - BLOOD ORDERABLES Performing Organization Address City/[facility]/ZIP Code Phon e Number [facility] (ABNORMAL) CBC with platelets (08/15/2020 8:46 AM PSYCHOLOGY DEPARTMENT CHAIR) Patholo gist Method Time Signature WBC 5.6 4.0 - 11.0 08/15/2020 [facility] 10e9/L 9:03 AM [facility] RBC Count 3.06 (L) 3.8 - 5.2 08/15/2020 [facility] 10e12/L 9:03 AM [facility] Hemoglobin 9.3 (L) 11.7 - 08/15/2020 [facility] 15.7 g/dL 9:03 AM [facility] Hematocrit 28.7 (L) 35.0 - 08/15/2020 [facility] 47.0 % 9:03 AM [facility] MCV 94 78 - 100 08/15/2020 [facility] fl 9:03 AM [facility] MCH 30.4 26.5 - 08/15/2020 [facility] 33.0 pg 9:03 AM [facility] MCHC 32.4 31.5 - 08/15/2020 [facility] 36.5 g/dL 9:03 AM [facility] RDW 12.2 10.0 - 08/15/2020 [facility] 15.0 % 9:03 AM [facility] Platelet Count 274 150 - 450 08/15/2020 [facility] 10e9/L 9:03 AM [facility] Specimen Anatomical Collection Method Collection Time Receive d Time (Source) Location / / Volume Laterality Blood specimen 08/15/2020 8:46 AM 021 8:47 (specimen) PSYCHOLOGY DEPARTMENT CHAIR AM PSYCHOLOGY DEPARTMENT CHAIR Miles Steel MD LAB - BLOOD ORDERABLES Performing Organization Address City/State/ZIP Code Phon e Number [facility] [address] [place] [address] [facility] (ABNORMAL) TEG without Heparinase (08/14/2020 7:07 AM PSYCHOLOGY DEPARTMENT CHAIR) [facility] Method Time Signature R time until clot 3.8 (L) 5 - 10 08/14/2020 [facility] forms Minute 10:05 AM [facility] K time to spec clot 0.9 (L) 1 - 3 08/14/2020 [facility] OF strength Minute 10:05 AM [facility] Angle rate of clot 77.5 (H) 53 - 72 08/14/2020 [facility] strength Degrees 10:05 AM [facility] MA maximum clot 72.8 (H) 50 - 70 mm 08/14/2020 [facility] F strength 10:05 AM [facility] CI hypercoagulation 4.2 (H) 0.0 - 3.0 08/14/2020 [facility] index Ratio 10:05 AM [facility] G actual clot 13.4 (H) 4.5 - 11.0 08/14/2020 [facility] strength Kd/sc 10:05 AM [facility] LY30 lysis at 30 3.3 0 - 8 % 08/14/2020 [facility] F minutes 10:05 AM [facility] LY60 lysis at 60 7.5 0 - 15 % 08/14/2020 [facility] F minutes 10:05 AM [facility] Specimen Anatomical Collection Method Collection Time Receive d Time (Source) Location / / Volume Laterality Blood specimen 08/14/2020 7:07 AM 021 7:08 (specimen) PSYCHOLOGY DEPARTMENT CHAIR AM PSYCHOLOGY DEPARTMENT CHAIR Ronald Crawford MD LAB - BLOOD ORDERABLES Performing Organization Address City/State/ZIP Code Phon e Number [address] [address] [facility] Partial thromboplastin time (08/14/2020 7:07 AM PSYCHOLOGY DEPARTMENT CHAIR) P athologist Signature PTT 30 22 - 37 sec 08/14/2020 [facility] 7:28 AM [facility] Specimen Anatomical Collection Method Collection Time Receive d Time (Source) Location / / Volume Laterality Blood specimen 08/14/2020 7:07 AM 021 7:08 (specimen) PSYCHOLOGY DEPARTMENT CHAIR AM PSYCHOLOGY DEPARTMENT CHAIR Yuniel Kilgore MD LAB - BLOOD ORDERABLES Performing Organization Address City/[facility]/ZIP Code Phon e Number [address] [address] [facility] INR (08/14/2020 7:07 AM PSYCHOLOGY DEPARTMENT CHAIR) athologist Signature INR 0.98 0.86 - 1.14 08/14/2020 [facility] 7:27 AM [facility] Specimen Anatomical Collection Method Collection Time Receive d Time (Source) Location / / Volume Laterality Blood specimen 08/14/2020 7:07 AM 021 7:08 (specimen) PSYCHOLOGY DEPARTMENT CHAIR AM PSYCHOLOGY DEPARTMENT CHAIR Yuniel Kilgore MD LAB - BLOOD ORDERABLES Performing Organization Address City/[facility]/ZIP Code Phon e Number [address] [address] [facility] (ABNORMAL) Fibrinogen activity (08/14/2020 7:07 AM PSYCHOLOGY DEPARTMENT CHAIR) P athologist Signature Fibrinogen 603 (H) 200 - 420 08/14/2020 [facility] mg/dL 7:27 AM [facility] Specimen Anatomical Collection Method Collection Time Receive d Time (Source) Location / / Volume Laterality Blood specimen 08/14/2020 7:07 AM 021 7:08 (specimen) PSYCHOLOGY DEPARTMENT CHAIR AM PSYCHOLOGY DEPARTMENT CHAIR Yuniel Kilgore MD LAB - BLOOD ORDERABLES Performing Organization Address City/[facility]/ZIP Code Phon e Number [address] [address] [facility] (ABNORMAL) CBC with platelets (08/14/2020 7:07 AM PSYCHOLOGY DEPARTMENT CHAIR) [facility] Method Time Signature WBC 6.5 4.0 - 11.0 08/14/2020 [facility] 10e9/L 7:13 AM [facility] RBC Count 2.99 (L) 3.8 - 5.2 08/14/2020 [facility] 10e12/L 7:13 AM [facility] Hemoglobin 9.1 (L) 11.7 - 08/14/2020 [facility] 15.7 g/dL 7:13 AM [facility] Hematocrit 28.2 (L) 35.0 - 08/14/2020 [place] 47.0 % 7:13 AM [facility] MCV 94 78 - 100 08/14/2020 [place] fl 7:13 AM [facility] MCH 30.4 26.5 - 08/14/2020 [place] 33.0 pg 7:13 AM [facility] MCHC 32.3 31.5 - 08/14/2020 [facility] 36.5 g/dL 7:13 AM [facility] RDW 12.4 10.0 - 08/14/2020 [facility] 15.0 % 7:13 AM [facility] Platelet Count 242 150 - 450 08/14/2020 [facility] 10e9/L 7:13 AM [facility] Specimen Anatomical Collection Method Collection Time Receive d Time (Source) Location / / Volume Laterality Blood specimen 08/14/2020 7:07 AM 021 7:08 (specimen) PSYCHOLOGY DEPARTMENT CHAIR AM PSYCHOLOGY DEPARTMENT CHAIR Yuniel Kilgore MD LAB - BLOOD ORDERABLES Performing Organization Address City/State/ZIP Code Phon e Number [facility] [address] [place] [address] [facility] (ABNORMAL) TEG without Heparinase (08/13/2020 3:11 PM PSYCHOLOGY DEPARTMENT CHAIR) [facility] Method Time Signature R time until clot 2.8 (L) 5 - 10 08/13/2020 [facility] forms Minute 5:47 PM [facility] K time to spec clot 0.8 (L) 1 - 3 08/13/2020 [facility] strength Minute 5:47 PM [facility] Angle rate of clot 79.6 (H) 53 - 72 08/13/2020 [facility] strength Degrees 5:47 PM [facility] MA maximum clot 71.0 (H) 50 - 70 mm 08/13/2020 [facility] F strength 5:47 PM [facility] CI hypercoagulation 4.8 (H) 0.0 - 3.0 08/13/2020 [facility] index Ratio 5:47 PM [facility] G actual clot 12.3 (H) 4.5 - 11.0 08/13/2020 [facility] strength Kd/sc 5:47 PM [facility] LY30 lysis at 30 2.4 0 - 8 % 08/13/2020 [facility] F minutes 5:47 PM [facility] LY60 lysis at 60 5.7 0 - 15 % 08/13/2020 [facility] F minutes 5:47 PM [facility] Specimen Anatomical Collection Method Collection Time Receive d Time (Source) Location / / Volume Laterality 08/13/2020 3:11 PM 3:12 PSYCHOLOGY DEPARTMENT CHAIR PM PSYCHOLOGY DEPARTMENT CHAIR Yuniel Kilgore MD LAB - BLOOD ORDERABLES Performing Organization Address City/State/ZIP Code Phon e Number [facility] [address] [place] [address] [facility] (ABNORMAL) CBC with platelets (08/13/2020 3:11 PM PSYCHOLOGY DEPARTMENT CHAIR) [facility] gist Method Time Signature WBC 7.0 4.0 - 11.0 08/13/2020 [facility] 10e9/L 3:19 PM [facility] RBC Count 3.24 (L) 3.8 - 5.2 08/13/2020 [facility] 10e12/L 3:19 PM [facility] Hemoglobin 9.9 (L) 11.7 - 08/13/2020 [facility] 15.7 g/dL 3:19 PM [facility] Hematocrit 31.1 (L) 35.0 - 08/13/2020 [place] 47.0 % 3:19 PM [facility] MCV 96 78 - 100 08/13/2020 [facility] fl 3:19 PM [facility] MCH 30.6 26.5 - 08/13/2020 [facility] 33.0 pg 3:19 PM [facility] MCHC 31.8 31.5 - 08/13/2020 [facility] 36.5 g/dL 3:19 PM [facility] RDW 12.3 10.0 - 08/13/2020 [facility] 15.0 % 3:19 PM [facility] Platelet Count 238 150 - 450 08/13/2020 [facility] 10e9/L 3:19 PM [facility] Specimen Anatomical Collection Method Collection Time Receive d Time (Source) Location / / Volume Laterality Blood specimen 08/13/2020 3:11 PM 021 3:12 (specimen) PSYCHOLOGY DEPARTMENT CHAIR PM PSYCHOLOGY DEPARTMENT CHAIR Yuniel Kilgore MD LAB - BLOOD ORDERABLES Performing Organization Address City/State/ZIP Code Phon e Number [facility] [address] [place] [address] [facility] (ABNORMAL) CBC with platelets (08/13/2020 7:58 AM PSYCHOLOGY DEPARTMENT CHAIR) [facility] gist Method Time Signature WBC 6.5 4.0 - 11.0 08/13/2020 [facility] 10e9/L 8:06 AM [facility] RBC Count 2.72 (L) 3.8 - 5.2 08/13/2020 [facility] 10e12/L 8:06 AM [facility] Hemoglobin 8.2 (L) 11.7 - 08/13/2020 [facility] 15.7 g/dL 8:06 AM [facility] Hematocrit 25.4 (L) 35.0 - 08/13/2020 [facility] 47.0 % 8:06 AM [facility] MCV 93 78 - 100 08/13/2020 [facility] fl 8:06 AM [facility] MCH 30.1 26.5 - 08/13/2020 [facility] 33.0 pg 8:06 AM [facility] MCHC 32.3 31.5 - 08/13/2020 [facility] 36.5 g/dL 8:06 AM [facility] RDW 12.3 10.0 - 08/13/2020 [facility] 15.0 % 8:06 AM [facility] Platelet Count 190 150 - 450 08/13/2020 [facility] 10e9/L 8:06 AM [facility] Specimen Anatomical Collection Method Collection Time Receive d Time (Source) Location / / Volume Laterality 08/13/2020 7:58 AM 8:02 PSYCHOLOGY DEPARTMENT CHAIR AM PSYCHOLOGY DEPARTMENT CHAIR Eleanor Dooley MD LAB - BLOOD ORDERABLES Performing Organization Address City/[facility]/ZIP Code Phon e Number [address] [address] [facility] Partial thromboplastin time (08/13/2020 6:49 AM PSYCHOLOGY DEPARTMENT CHAIR) P athologist Signature PTT 34 22 - 37 sec 08/13/2020 [facility] 7:21 AM [facility] Specimen Anatomical Collection Method Collection Time Receive d Time (Source) Location / / Volume Laterality 08/13/2020 6:49 AM 7:02 PSYCHOLOGY DEPARTMENT CHAIR AM PSYCHOLOGY DEPARTMENT CHAIR Sinziana Cornea DO LAB - BLOOD ORDERABLES Performing Organization Address City/[facility]/ZIP Code Phon e Number [address] [address] [facility] INR (08/13/2020 6:49 AM PSYCHOLOGY DEPARTMENT CHAIR) P athologist Signature INR 1.05 0.86 - 1.14 08/13/2020 [facility] 7:20 AM [facility] Specimen Anatomical Collection Method Collection Time Receive d Time (Source) Location / / Volume Laterality 08/13/2020 6:49 AM 7:02 PSYCHOLOGY DEPARTMENT CHAIR AM PSYCHOLOGY DEPARTMENT CHAIR Sinziana Cornea DO LAB - BLOOD ORDERABLES Performing Organization Address City/[facility]/ZIP Code Phon e Number [address] [address] [facility] (ABNORMAL) Fibrinogen activity (08/13/2020 6:49 AM PSYCHOLOGY DEPARTMENT CHAIR) P athologist Signature Fibrinogen 642 (H) 200 - 420 08/13/2020 [facility] mg/dL 7:20 AM [facility] Specimen Anatomical Collection Method Collection Time Receive d Time (Source) Location / / Volume Laterality 08/13/2020 6:49 AM 7:02 PSYCHOLOGY DEPARTMENT CHAIR AM PSYCHOLOGY DEPARTMENT CHAIR Sinziana Cornea DO LAB - BLOOD ORDERABLES Performing Organization Address City/State/ZIP Code Phon e Number [facility] [address] [place] [address] [facility] (ABNORMAL) Basic metabolic panel (08/13/2020 6:49 AM [facility]) Analysis Performed At Patho logist Time Signature Sodium 142 133 - 144 08/13/2020 [facility] mmol/L 7:19 AM [facility] Potassium 3.3 (L) 3.4 - 5.3 08/13/2020 [facility] mmol/L 7:19 AM [facility] Chloride 109 96 - 110 08/13/2020 [place] mmol/L 7:19 AM [facility] Carbon Dioxide 27 20 - 32 08/13/2020 [place] mmol/L 7:26 AM [facility] Anion Gap 6 3 - 14 08/13/2020 [place] mmol/L 7:26 AM [facility] Glucose 88 70 - 99 08/13/2020 [place] mg/dL 7:26 AM [facility] Urea Nitrogen 6 (L) 7 - 30 08/13/2020 [place] mg/dL 7:26 AM [facility] Creatinine 0.52 0.50 - 08/13/2020 [facility]/dL 7:26 AM [facility] GFR Estimate >90 >60 08/13/2020 [place] mL/min/{1. 7:26 AM [facility] 73_m2} HOSPITAL Comment: Non GFR Calc Starting 07/22/2018, serum creatinine ba sed estimated GFR (eGFR) will be calculated using the Chronic Kidney Dise [facility] Epidemiology Collaboration (CKD-EPI) equation. GFR Estimate If >90 >60 mL/min/{1.73_m2} 08/13/2020 7: 26 AM [facility] Comment: GFR Calc Starting 07/22/2018, serum creatinine ba sed estimated GFR (eGFR) will be calculated using the Chronic Kidney Dise [facility] Epidemiology Collaboration (CKD-EPI) equation. Calcium 8.3 (L) 8.5 - 10.1 mg/dL 08/13/2020 7:26 AM [facility] Specimen Anatomical Collection Method Collection Time Receive d Time (Source) Location / / Volume Laterality Blood specimen 08/13/2020 6:49 AM 021 7:02 (specimen) PSYCHOLOGY DEPARTMENT CHAIR AM PSYCHOLOGY DEPARTMENT CHAIR Yuniel Kilgore MD LAB - BLOOD ORDERABLES Performing Organization Address City/State/ZIP Code Phon e Number [facility] [address] [place] [address] [address] [facility] [address] [facility] [place] [address], U [phone] Partial thromboplastin time (08/12/2020 7:30 PM PSYCHOLOGY DEPARTMENT CHAIR) P athologist Signature PTT 30 22 - 37 sec 08/12/2020 [facility] 7:48 PM [facility] Specimen Anatomical Collection Method Collection Time Receive d Time (Source) Location / / Volume Laterality Blood specimen 08/12/2020 7:30 PM 021 7:31 (specimen) PSYCHOLOGY DEPARTMENT CHAIR PM PSYCHOLOGY DEPARTMENT CHAIR Vivi Cornea DO LAB - BLOOD ORDERABLES Performing Organization Address City/State/ZIP Code Phon e Number [address] [address] [facility] INR (08/12/2020 7:30 PM PSYCHOLOGY DEPARTMENT CHAIR) P athologist Signature INR 0.99 0.86 - 1.14 08/12/2020 [facility] 7:47 PM [facility] Specimen Anatomical Collection Method Collection Time Receive d Time (Source) Location / / Volume Laterality Blood specimen 08/12/2020 7:30 PM 021 7:31 (specimen) PSYCHOLOGY DEPARTMENT CHAIR PM PSYCHOLOGY DEPARTMENT CHAIR [facility] Cornea DO LAB - BLOOD ORDERABLES Performing Organization Address City/[facility]/ZIP Code Phon e Number [address] [address] [facility] (ABNORMAL) Fibrinogen activity (08/12/2020 7:30 PM PSYCHOLOGY DEPARTMENT CHAIR) P athologist Signature Fibrinogen 625 (H) 200 - 420 08/12/2020 [facility] mg/dL 7:48 PM [facility] Specimen Anatomical Collection Method Collection Time Receive d Time (Source) Location / / Volume Laterality Blood specimen 08/12/2020 7:30 PM 021 7:31 (specimen) PSYCHOLOGY DEPARTMENT CHAIR PM PSYCHOLOGY DEPARTMENT CHAIR Sinziana Cornea DO LAB - BLOOD ORDERABLES Performing Organization Address City/[facility]/ZIP Code Phon e Number [address] [address] [facility] (ABNORMAL) CBC with platelets (08/12/2020 7:30 PM PSYCHOLOGY DEPARTMENT CHAIR) [facility] gist Method Time Signature WBC 9.9 4.0 - 11.0 08/12/2020 [facility] 10e9/L 7:39 PM [facility] RBC Count 3.39 (L) 3.8 - 5.2 08/12/2020 [facility] 10e12/L 7:39 PM [facility] Hemoglobin 10.4 (L) 11.7 - 08/12/2020 [facility] 15.7 g/dL 7:39 PM [facility] Hematocrit 31.8 (L) 35.0 - 08/12/2020 [facility] 47.0 % 7:39 PM [facility] MCV 94 78 - 100 08/12/2020 [facility] fl 7:39 PM [facility] MCH 30.7 26.5 - 08/12/2020 [facility] 33.0 pg 7:39 PM [facility] MCHC 32.7 31.5 - 08/12/2020 [facility] 36.5 g/dL 7:39 PM [facility] RDW 12.1 10.0 - 08/12/2020 [facility] 15.0 % 7:39 PM [facility] Platelet Count 224 150 - 450 08/12/2020 [facility] 10e9/L 7:39 PM [facility] Specimen Anatomical Collection Method Collection Time Receive d Time (Source) Location / / Volume Laterality Blood specimen 08/12/2020 7:30 PM 021 7:31 (specimen) PSYCHOLOGY DEPARTMENT CHAIR PM PSYCHOLOGY DEPARTMENT CHAIR Sinziana Cornea DO LAB - BLOOD ORDERABLES Performing Organization Address City/[facility]/ZIP Code Phon e Number [address] [address] [facility] EKG 12-lead, complete (08/12/2020 6:42 PM PSYCHOLOGY DEPARTMENT CHAIR) [facility] gist Method Time Signature Interpretation ECG Click View RADIOLOGY Image link RESULTS to view waveform and result Specimen (Source) Anatomical Collection Method Collection Time Re ceived Time Location / / Volume Laterality 08/12/2020 6:42 PM PSYCHOLOGY DEPARTMENT CHAIR Sinziana Cornea DO ECG ORDERABLES Performing Organization Address City/State/ZIP Code Phon e Number RADIOLOGY RESULTS XR Thoracic Lumbar Standing 2 Views (08/12/2020 6:07 PM PSYCHOLOGY DEPARTMENT CHAIR) Anatomical Region Laterality Modality C-spine, T-spine, L-spine Computed Radio graphy Specimen (Source) Anatomical Location Collection Method / Collectio n Time Received Time / Laterality Volume Impressions 08/12/2020 6:42 PM PSYCHOLOGY DEPARTMENT CHAIR IMPRESSION: No change status post thoracolumbar fixation. No other bony abnormality identified. PREET DIAZ MD Narrative 08/12/2020 6:42 PM PSYCHOLOGY DEPARTMENT CHAIR XR BONE SURVEY COMPLETE PEDS, XR THORACIC LUMBAR STANDING 2 VW ?? 08/12/2020 6:06 PM ?? HISTORY: Eval for osteopenia/other bony abnormalities other than spine. TECHNIQUE: Bone survey including: AP lat eral skull, lateral C-spine, supine abdomen and pelvis, AP and latera l lateral thoracic and lumbar spine, oblique ribs, AP left and right h umerus, AP left right femur, AP left and right forearm, AP left and r ight tibia/fibula, AP left hand, AP left and right feet. COMPARISON: Spine x-rays in the past. FINDINGS: There are spinal rods in the t horacolumbar spine which are unchanged in appearance from the prior e xamination. No evidence of loosening. Bones are fused. Lengths appear normal. No lucent or sclerotic lesion identified. Bony alignment is normal. No osteopenia identified. Procedure Note Preet Diaz MD - 08/12/2020Form atting of this note might be different from the original. XR BONE SURVEY COMPLETE PEDS, XR THORACI C LUMBAR STANDING 2 VW 08/12/2020 6:06 PM HISTORY: Eval for osteopenia/other bony abnormalities other than spine. TECHNIQUE: Bone survey including: AP lat eral skull, lateral C-spine, supine abdomen and pelvis, AP and latera l lateral thoracic and lumbar spine, oblique ribs, AP left and right h umerus, AP left right femur, AP left and right forearm, AP left and r ight tibia/fibula, AP left hand, AP left and right feet. COMPARISON: Spine x-rays in the past. FINDINGS: There are spinal rods in the t horacolumbar spine which are unchanged in appearance from the prior e xamination. No evidence of loosening. Bones are fused. Lengths appear normal. No lucent or sclerotic lesion identified. Bony alignment is normal. No osteopenia identified. IMPRESSION: No change status post thorac olumbar fixation. No other bony abnormality identified. PREET DIAZ MD Victor Hugo Talbot MD IMG DIAGNOSTIC IMAGING ORDER DANO XR Bone Survey Complete Peds (08/12/2020 6:06 PM PSYCHOLOGY DEPARTMENT CHAIR) Anatomical Region Laterality Modality C-spine, T-spine, L-spine, Neck, Arm, Forearm, Thigh, Bilate ral Computed Radiography Leg, Abdomen/Pelvis Specimen (Source) Anatomical Location Collection Method / Collectio n Time Received Time / Laterality Volume Impressions 08/12/2020 6:42 PM PSYCHOLOGY DEPARTMENT CHAIR IMPRESSION: No change status post thoracolumbar fixation. No other bony abnormality identified. PREET DIAZ MD Narrative 08/12/2020 6:42 PM PSYCHOLOGY DEPARTMENT CHAIR XR BONE SURVEY COMPLETE PEDS, XR THORACIC LUMBAR STANDING 2 VW ?? 08/12/2020 6:06 PM ?? HISTORY: Eval for osteopenia/other bony abnormalities other than spine. TECHNIQUE: Bone survey including: AP lat eral skull, lateral C-spine, supine abdomen and pelvis, AP and latera l lateral thoracic and lumbar spine, oblique ribs, AP left and right h umerus, AP left right femur, AP left and right forearm, AP left and r ight tibia/fibula, AP left hand, AP left and right feet. COMPARISON: Spine x-rays in the past. FINDINGS: There are spinal rods in the t horacolumbar spine which are unchanged in appearance from the prior e xamination. No evidence of loosening. Bones are fused. Lengths appear normal. No lucent or sclerotic lesion identified. Bony alignment is normal. No osteopenia identified. Procedure Note Preet Diaz MD - 08/12/2020Form atting of this note might be different from the original. XR BONE SURVEY COMPLETE PEDS, XR THORACI C LUMBAR STANDING 2 VW 08/12/2020 6:06 PM HISTORY: Eval for osteopenia/other bony abnormalities other than spine. TECHNIQUE: Bone survey including: AP lat eral skull, lateral C-spine, supine abdomen and pelvis, AP and latera l lateral thoracic and lumbar spine, oblique ribs, AP left and right h umerus, AP left right femur, AP left and right forearm, AP left and r ight tibia/fibula, AP left hand, AP left and right feet. COMPARISON: Spine x-rays in the past. FINDINGS: There are spinal rods in the t horacolumbar spine which are unchanged in appearance from the prior e xamination. No evidence of loosening. Bones are fused. Lengths appear normal. No lucent or sclerotic lesion identified. Bony alignment is normal. No osteopenia identified. IMPRESSION: No change status post thorac olumbar fixation. No other bony abnormality identified. PREET DIAZ MD Sinziana Cornea DO IMG DIAGNOSTIC IMAGING ORDER DANO (ABNORMAL) TEG without Heparinase (08/12/2020 8:11 AM PSYCHOLOGY DEPARTMENT CHAIR) Patholo gist Method Time Signature R time until clot 4.4 (L) 5 - 10 08/12/2020 [facility] forms Minute 9:47 AM [facility] K time to spec clot 1.1 1 - 3 08/12/2020 [facility] strength Minute 9:47 AM [facility] Angle rate of clot 74.9 (H) 53 - 72 08/12/2020 [facility] strength Degrees 9:47 AM [facility] MA maximum clot 71.6 (H) 50 - 70 mm 08/12/2020 [facility] O F strength 9:47 AM [facility] CI hypercoagulation 3.4 (H) 0.0 - 3.0 08/12/2020 [facility] OF index Ratio 9:47 AM [facility] G actual clot 12.6 (H) 4.5 - 11.0 08/12/2020 [facility] [place] [employer] Kd/sc 9:47 AM [facility] LY30 lysis at 30 2.8 0 - 8 % 08/12/2020 [facility] O F minutes 9:47 AM [facility] LY60 lysis at 60 6.9 0 - 15 % 08/12/2020 [facility] O F minutes 9:47 AM [facility] Specimen Anatomical Collection Method Collection Time Receive d Time (Source) Location / / Volume Laterality Blood specimen 08/12/2020 8:11 AM 021 8:12 (specimen) PSYCHOLOGY DEPARTMENT CHAIR AM PSYCHOLOGY DEPARTMENT CHAIR Sinziana Cornea DO LAB - BLOOD ORDERABLES Performing Organization Address City/State/ZIP Code Phon e Number [facility] [address] [place] [address] [facility] Partial thromboplastin time (08/11/2020 5:22 PM PSYCHOLOGY DEPARTMENT CHAIR) P athologist Signature PTT 36 22 - 37 sec 08/11/2020 [facility] 5:38 PM [facility] Specimen Anatomical Collection Method Collection Time Receive d Time (Source) Location / / Volume Laterality Blood specimen 08/11/2020 5:22 PM 5:23 (specimen) PSYCHOLOGY DEPARTMENT CHAIR PM PSYCHOLOGY DEPARTMENT CHAIR [facility] Cornea DO LAB - BLOOD ORDERABLES Performing Organization Address City/State/ZIP Code Phon e Number U [facility] (ABNORMAL) CBC with platelets (08/11/2020 5:22 PM PSYCHOLOGY DEPARTMENT CHAIR) Patholo gist Method Time Signature WBC 11.6 (H) 4.0 - 11.0 08/11/2020 [facility] 10e9/L 5:29 PM [facility] RBC Count 3.46 (L) 3.8 - 5.2 08/11/2020 [facility] 10e12/L 5:29 PM [facility] Hemoglobin 10.6 (L) 11.7 - 08/11/2020 [facility] 15.7 g/dL 5:29 PM [facility] Hematocrit 32.6 (L) 35.0 - 08/11/2020 [facility] 47.0 % 5:29 PM [facility] MCV 94 78 - 100 08/11/2020 [facility] fl 5:29 PM [facility] MCH 30.6 26.5 - 08/11/2020 [facility] 33.0 pg 5:29 PM [facility] MCHC 32.5 31.5 - 08/11/2020 [facility] 36.5 g/dL 5:29 PM [facility] RDW 12.2 10.0 - 08/11/2020 [facility] 15.0 % 5:29 PM [facility] Platelet Count 209 150 - 450 08/11/2020 [facility] 10e9/L 5:29 PM [facility] Specimen Anatomical Collection Method Collection Time Receive d Time (Source) Location / / Volume Laterality Blood specimen 08/11/2020 5:22 PM 021 5:23 (specimen) PSYCHOLOGY DEPARTMENT CHAIR PM PSYCHOLOGY DEPARTMENT CHAIR Sinziana Cornea DO LAB - BLOOD ORDERABLES Performing Organization Address City/[facility]/ZIP Code Phon e Number [facility] [address] [place] [address] [facility] (ABNORMAL) Fibrinogen activity (08/11/2020 5:22 PM PSYCHOLOGY DEPARTMENT CHAIR) P athologist Signature Fibrinogen 564 (H) 200 - 420 08/11/2020 [facility] [place] mg/dL 5:38 PM [facility] Specimen Anatomical Collection Method Collection Time Receive d Time (Source) Location / / Volume Laterality Blood specimen 08/11/2020 5:22 PM 021 5:23 (specimen) PSYCHOLOGY DEPARTMENT CHAIR PM PSYCHOLOGY DEPARTMENT CHAIR Sinziana Cornea DO LAB - BLOOD ORDERABLES Performing Organization Address City/[facility]/ZIP Code Phon e Number [facility] U OF [facility] (ABNORMAL) INR (08/11/2020 5:22 PM PSYCHOLOGY DEPARTMENT CHAIR) P athologist Signature INR 1.21 (H) 0.86 - 1.14 08/11/2020 U OF M [place] 5:[address]PART[address] CHA[address] [facility] Specimen Anatomical Collection Method Collection Time Receive d Time (Source) Location / / Volume Laterality Blood specimen 08/11/2020 5:22 PM 021 5:23 (specimen) PSYCHOLOGY DEPARTMENT CHAIR PM PSYCHOLOGY DEPARTMENT CHAIR Sinziana Cornea DO LAB - BLOOD ORDERABLES Performing Organization Address City/State/ZIP Code Phon e Number [facility] U OF [facility] (ABNORMAL) Fibrinogen activity (08/11/2020 10:03 AM PSYCHOLOGY DEPARTMENT CHAIR) P athologist Signature Fibrinogen 515 (H) 200 - 420 08/11/2020 [facility] mg/dL 10:50 AM [facility] Specimen Anatomical Collection Method Collection Time Receive d Time (Source) Location / / Volume Laterality Blood specimen 08/11/2020 10:03 1 (specimen) AM PSYCHOLOGY DEPARTMENT CHAIR 10:04 AM PSYCHOLOGY DEPARTMENT CHAIR Marli Limon MD LAB - BLOOD ORDERABLES Performing Organization Address City/State/[facility] Phon e Number [facility] [address] [place] [address] [facility] (ABNORMAL) TEG without Heparinase (08/11/2020 10:03 AM PSYCHOLOGY DEPARTMENT CHAIR) Patholo gist Method Time Signature R time until clot 5.1 5 - 10 08/11/2020 [facility] OF forms Minute 12:47 PM [facility] K time to spec clot 1.1 1 - 3 08/11/2020 [facility] Y OF strength Minute 12:47 PM [facility] Angle rate of clot 72.6 (H) 53 - 72 08/11/2020 [facility] strength Degrees 12:47 PM [facility] MA maximum clot 68.4 50 - 70 mm 08/11/2020 [facility] O F strength 12:47 PM [facility] CI hypercoagulation 2.4 0.0 - 3.0 08/11/2020 [facility] Y OF index Ratio 12:47 PM [facility] G actual clot 10.8 4.5 - 11.0 08/11/2020 [facility] strength Kd/sc 12:47 PM [facility] LY30 lysis at 30 4.3 0 - 8 % 08/11/2020 [facility] O F minutes 12:47 PM [facility] LY60 lysis at 60 8.2 0 - 15 % 08/11/2020 [facility] O F minutes 12:47 PM [facility] Specimen Anatomical Collection Method Collection Time Receive d Time (Source) Location / / Volume Laterality Blood specimen 08/11/2020 10:03 1 (specimen) AM PSYCHOLOGY DEPARTMENT CHAIR 10:04 AM PSYCHOLOGY DEPARTMENT CHAIR Marli Limon MD LAB - BLOOD ORDERABLES Performing Organization Address City/State/ZIP Code Phon e Number [address] [address] [facility] Partial thromboplastin time (08/11/2020 10:03 AM PSYCHOLOGY DEPARTMENT CHAIR) P athologist Signature PTT 37 22 - 37 sec 08/11/2020 [facility] 10:50 AM [facility] Specimen Anatomical Collection Method Collection Time Receive d Time (Source) Location / / Volume Laterality Blood specimen 08/11/2020 10:03 1 (specimen) AM PSYCHOLOGY DEPARTMENT CHAIR 10:04 AM PSYCHOLOGY DEPARTMENT CHAIR Marli Limon MD LAB - BLOOD ORDERABLES Performing Organization Address City/State/ZIP Code Phon e Number [address] [address] [facility] (ABNORMAL) INR (08/11/2020 10:03 AM PSYCHOLOGY DEPARTMENT CHAIR) P athologist Signature INR 1.24 (H) 0.86 - 1.14 08/11/2020 [facility] 10:50 AM [facility] Specimen Anatomical Collection Method Collection Time Receive d Time (Source) Location / / Volume Laterality Blood specimen 08/11/2020 10:03 1 (specimen) AM PSYCHOLOGY DEPARTMENT CHAIR 10:04 AM PSYCHOLOGY DEPARTMENT CHAIR Marli Limon MD LAB - BLOOD ORDERABLES Performing Organization Address City/[facility]/ZIP Code Phon e Number [address] [address] [facility] (ABNORMAL) CBC with platelets (08/11/2020 10:03 AM PSYCHOLOGY DEPARTMENT CHAIR) Patholo gist Method Time Signature WBC 11.1 (H) 4.0 - 11.0 08/11/2020 [facility] 10e9/L 10:42 AM [facility] RBC Count 3.51 (L) 3.8 - 5.2 08/11/2020 [facility] 10e12/L 10:42 AM [facility] Hemoglobin 10.6 (L) 11.7 - 08/11/2020 [facility] 15.7 g/dL 10:42 AM [facility] Hematocrit 32.8 (L) 35.0 - 08/11/2020 [facility] 47.0 % 10:42 AM [facility] MCV 93 78 - 100 08/11/2020 [facility] OF fl 10:42 AM [facility] MCH 30.2 26.5 - 08/11/2020 [facility] 33.0 pg 10:42 AM [facility] MCHC 32.3 31.5 - 08/11/2020 [facility] 36.5 g/dL 10:42 AM [facility] RDW 12.3 10.0 - 08/11/2020 [facility] 15.0 % 10:42 AM [facility] Platelet Count 210 150 - 450 08/11/2020 [facility] 10e9/L 10:42 AM [facility] Specimen Anatomical Collection Method Collection Time Receive d Time (Source) Location / / Volume Laterality Blood specimen 08/11/2020 10:03 1 (specimen) AM PSYCHOLOGY DEPARTMENT CHAIR 10:04 AM PSYCHOLOGY DEPARTMENT CHAIR Marli Limon MD LAB - BLOOD ORDERABLES Performing Organization Address City/State/ZIP Code Phon e Number [facility] [address] [place] [address] [facility] (ABNORMAL) Fibrinogen activity (08/11/2020 6:09 AM PSYCHOLOGY DEPARTMENT CHAIR) P athologist Signature Fibrinogen 486 (H) 200 - 420 08/11/2020 [facility] 6[facility] AM [facility] Specimen Anatomical Collection Method Collection Time Receive d Time (Source) Location / / Volume Laterality Blood specimen 08/11/2020 6:09 AM 021 6:10 (specimen) PSYCHOLOGY DEPARTMENT CHAIR AM PSYCHOLOGY DEPARTMENT CHAIR Marli Limon MD LAB - BLOOD ORDERABLES Performing Organization Address City/State/ZIP Code Phon e Number U [facility] (ABNORMAL) TEG without Heparinase (08/11/2020 6:09 AM PSYCHOLOGY DEPARTMENT CHAIR) Patholo gist Method Time Signature R time until clot 4.7 (L) 5 - 10 08/11/2020 [facility] Minute 7:39 AM [facility] K time to spec clot 1.1 1 - 3 08/11/2020 [facility]IT Y OF strength Minute 7:39 AM [facility] Angle rate of clot 73.3 (H) 53 - 72 08/11/2020 [facility] OF strength Degrees 7:39 AM [facility] MA maximum clot 69.6 50 - 70 mm 08/11/2020 [facility] O F strength 7:39 AM [facility] CI hypercoagulation 2.8 0.0 - 3.0 08/11/2020 [facility] Y OF index Ratio 7:39 AM [facility] G actual clot 11.5 (H) 4.5 - 11.0 08/11/2020 UN[facility]ERSITY strength Kd/sc 7:39 AM [facility] LY30 lysis at 30 2.8 0 - 8 % 08/11/2020 [facility] O F minutes 7:39 AM [facility] LY60 lysis at 60 7.1 0 - 15 % 08/11/2020 [place] O F minutes 7:39 AM [facility] Specimen Anatomical Collection Method Collection Time Receive d Time (Source) Location / / Volume Laterality Blood specimen 08/11/2020 6:09 AM 021 6:10 (specimen) PSYCHOLOGY DEPARTMENT CHAIR AM PSYCHOLOGY DEPARTMENT CHAIR Marli Limon MD LAB - BLOOD ORDERABLES Performing Organization Address City/State/ZIP Code Phon e Number [facility] [address] [place], [place] [id number] [place] [address] Partial thromboplastin time (08/11/2020 6:09 AM PSYCHOLOGY DEPARTMENT CHAIR) P athologist Signature PTT 34 22 - 37 sec 08/11/2020 [facility] [place] 6:33 AM [facility] Specimen Anatomical Collection Method Collection Time Receive d Time (Source) Location / / Volume Laterality Blood specimen 08/11/2020 6:09 AM 021 6:10 (specimen) PSYCHOLOGY DEPARTMENT CHAIR AM PSYCHOLOGY DEPARTMENT CHAIR Marli Limon MD LAB - BLOOD ORDERABLES Performing Organization Address City/State/ZIP Code Phon e Number [facility] [place] INR (08/11/2020 6:09 AM PSYCHOLOGY DEPARTMENT CHAIR) P athologist Signature INR 1.27 (H) 0.86 - 1.14 08/11/2020 [facility] [place] 6:32 AM [facility] Specimen Anatomical Collection Method Collection Time Receive d Time (Source) Location / / Volume Laterality Blood specimen 08/11/2020 6:09 AM 021 6:10 (specimen) PSYCHOLOGY DEPARTMENT CHAIR AM PSYCHOLOGY DEPARTMENT CHAIR Marli Limon MD LAB - BLOOD ORDERABLES Performing Organization Address City/State/ZIP Code Phon e Number [facility] OF [facility] (ABNORMAL) CBC with platelets (08/11/2020 6:09 AM PSYCHOLOGY DEPARTMENT CHAIR) [facility] gist Method Time Signature WBC 12.5 (H) 4.0 - 11.0 08/11/2020 [facility] 10e9/L 6:23 AM [facility] RBC Count 3.56 (L) 3.8 - 5.2 08/11/2020 [facility] 10e12/L 6:23 AM [facility] Hemoglobin 10.9 (L) 11.7 - 08/11/2020 [facility] 15.7 g/dL 6:23 AM [facility] Hematocrit 33.6 (L) 35.0 - 08/11/2020 [facility] OF 47.0 % 6:23 AM [facility] MCV 94 78 - 100 08/11/2020 [facility] OF fl 6:23 AM [facility] MCH 30.6 26.5 - 08/11/2020 [facility] OF 33.0 pg 6:23 AM [facility] MCHC 32.4 31.5 - 08/11/2020 [facility] OF 36.5 g/dL 6:23 AM [facility] RDW 12.2 10.0 - 08/11/2020 [facility] OF 15.0 % 6:23 AM [facility] Platelet Count 199 150 - 450 08/11/2020 [facility] 10e9/L 6:23 AM [facility] Specimen Anatomical Collection Method Collection Time Receive d Time (Source) Location / / Volume Laterality Blood specimen 08/11/2020 6:09 AM 021 6:10 (specimen) PSYCHOLOGY DEPARTMENT CHAIR AM PSYCHOLOGY DEPARTMENT CHAIR Marli Limon MD LAB - BLOOD ORDERABLES Performing Organization Address City/State/ZIP Code Phon e Number [facility] [address] [place] [address] [facility] Fibrinogen activity (08/10/2020 9:50 PM PSYCHOLOGY DEPARTMENT CHAIR) P athologist Signature Fibrinogen 403 200 - 420 08/10/2020 [facility] OF mg/dL 10:41 PM PSYCHOLOGY DEPARTMENT CHAIR [facility] Specimen Anatomical Collection Method Collection Time Receive d Time (Source) Location / / Volume Laterality Blood specimen 08/10/2020 9:50 PM 021 9:52 (specimen) PSYCHOLOGY DEPARTMENT CHAIR PM PSYCHOLOGY DEPARTMENT CHAIR Marli Limon MD LAB - BLOOD ORDERABLES Performing Organization Address City/State/[facility] Code Phon e Number [facility] [address] [place] [address] [facility] (ABNORMAL) TEG without Heparinase (08/10/2020 9:50 PM PSYCHOLOGY DEPARTMENT CHAIR) Patholo gist Method Time Signature R time until clot 4.0 (L) 5 - 10 08/10/2020 [facility] OF forms Minute 11:56 PM [facility] K time to spec clot 1.2 1 - 3 08/10/2020 UN[facility]ERSIT Y OF strength Minute 11:56 PM [facility] Angle rate of clot 73.2 (H) 53 - 72 08/10/2020 [facility] OF strength Degrees 11:56 PM [facility] MA maximum clot 64.4 50 - 70 mm 08/10/2020 [facility] O F strength 11:56 PM [facility] CI hypercoagulation 2.6 0.0 - 3.0 08/10/2020 UN[facility]ERSIT Y OF index Ratio 11:56 PM [facility] G actual clot 9.0 4.5 - 11.0 08/10/2020 [facility] OF strength Kd/sc 11:56 PM [facility] LY30 lysis at 30 2.6 0 - 8 % 08/10/2020 [facility] O F minutes 11:56 PM [facility] LY60 lysis at 60 6.4 0 - 15 % 08/10/2020 [facility] O F minutes 11:56 PM [facility] Specimen Anatomical Collection Method Collection Time Receive d Time (Source) Location / / Volume Laterality Blood specimen 08/10/2020 9:50 PM 021 9:53 (specimen) PSYCHOLOGY DEPARTMENT CHAIR PM PSYCHOLOGY DEPARTMENT CHAIR Marli Limon MD LAB - BLOOD ORDERABLES Performing Organization Address City/State/ZIP Code Phon e Number [address] [address] [facility] Partial thromboplastin time (08/10/2020 9:50 PM PSYCHOLOGY DEPARTMENT CHAIR) P athologist Signature PTT 31 22 - 37 sec 08/10/2020 [facility] 10:21 PM [facility] Specimen Anatomical Collection Method Collection Time Receive d Time (Source) Location / / Volume Laterality Blood specimen 08/10/2020 9:50 PM 021 9:52 (specimen) PSYCHOLOGY DEPARTMENT CHAIR PM PSYCHOLOGY DEPARTMENT CHAIR Marli Limon MD LAB - BLOOD ORDERABLES Performing Organization Address City/State/ZIP Code Phon e Number [address] [address] [facility] (ABNORMAL) INR (08/10/2020 9:50 PM PSYCHOLOGY DEPARTMENT CHAIR) P athologist Signature INR 1.21 (H) 0.86 - 1.14 08/10/2020 [facility] 10:41 PM [facility] Specimen Anatomical Collection Method Collection Time Receive d Time (Source) Location / / Volume Laterality Blood specimen 08/10/2020 9:50 PM 021 9:52 (specimen) PSYCHOLOGY DEPARTMENT CHAIR PM PSYCHOLOGY DEPARTMENT CHAIR Marli Limon MD LAB - BLOOD ORDERABLES Performing Organization Address City/State/ZIP Code Phon e Number [address] [address] [facility] (ABNORMAL) CBC with platelets (08/10/2020 9:50 PM PSYCHOLOGY DEPARTMENT CHAIR) Patholo gist Method Time Signature WBC 12.9 (H) 4.0 - 11.0 08/10/2020 [facility] OF 10e9/L 9:56 PM [facility] RBC Count 3.59 (L) 3.8 - 5.2 08/10/2020 [facility] OF 10e12/L 9:56 PM [facility] Hemoglobin 10.9 (L) 11.7 - 08/10/2020 [facility] OF 15.7 g/dL 9:56 PM [facility] Hematocrit 33.7 (L) 35.0 - 08/10/2020 [facility]ITY 47.0 % 9:56 PM [facility] MCV 94 78 - 100 08/10/2020 [facility] OF fl 9:56 PM [facility] MCH 30.4 26.5 - 08/10/2020 [facility] OF 33.0 pg 9:56 PM [facility] MCHC 32.3 31.5 - 08/10/2020 [facility] OF 36.5 g/dL 9:56 PM [facility] RDW 12.3 10.0 - 08/10/2020 [facility] OF 15.0 % 9:56 PM [facility] Platelet Count 193 150 - 450 08/10/2020 [facility] OF 10e9/L 9:56 PM [facility] Specimen Anatomical Collection Method Collection Time Receive d Time (Source) Location / / Volume Laterality Blood specimen 08/10/2020 9:50 PM 021 9:52 (specimen) PSYCHOLOGY DEPARTMENT CHAIR PM PSYCHOLOGY DEPARTMENT CHAIR Marli Limon MD LAB - BLOOD ORDERABLES Performing Organization Address City/State/ZIP Code Phon e Number [facility] [address] [place] [address] [facility] (ABNORMAL) TEG without Heparinase (08/10/2020 4:00 PM PSYCHOLOGY DEPARTMENT CHAIR) [facility] gist Method Time Signature R time until clot 3.2 (L) 5 - 10 08/10/2020 [facility] OF forms Minute 6:24 PM [facility] K time to spec clot 1.2 1 - 3 08/10/2020 [facility] Y OF strength Minute 6:24 PM [facility] Angle rate of clot 73.1 (H) 53 - 72 08/10/2020 [facility] OF strength Degrees 6:24 PM [facility] MA maximum clot 63.9 50 - 70 mm 08/10/2020 [facility]ITY O F strength 6:24 PM [facility] CI hypercoagulation 3.0 0.0 - 3.0 08/10/2020 [facility] Y OF index Ratio 6:24 PM [facility] G actual clot 8.8 4.5 - 11.0 08/10/2020 [facility] OF strength Kd/sc 6:24 PM [facility] LY30 lysis at 30 3.3 0 - 8 % 08/10/2020 [facility] O F minutes 6:24 PM [facility] LY60 lysis at 60 7.3 0 - 15 % 08/10/2020 [facility] O F minutes 6:24 PM [facility] Specimen Anatomical Collection Method Collection Time Receive d Time (Source) Location / / Volume Laterality Blood specimen 08/10/2020 4:00 PM 021 4:35 (specimen) PSYCHOLOGY DEPARTMENT CHAIR PM PSYCHOLOGY DEPARTMENT CHAIR Eden Moncada MD LAB - BLOOD ORDERABLES Performing Organization Address City/State/ZIP Code Phon e Number [facility] [address] [place] [address] [facility] (ABNORMAL) CBC with platelets (08/10/2020 4:00 PM PSYCHOLOGY DEPARTMENT CHAIR) [facility] gist Method Time Signature WBC 12.9 (H) 4.0 - 11.0 08/10/2020 [facility] OF 10e9/L 5:00 PM [facility] RBC Count 3.46 (L) 3.8 - 5.2 08/10/2020 [facility] OF 10e12/L 5:00 PM [facility] Hemoglobin 10.5 (L) 11.7 - 08/10/2020 [facility] OF 15.7 g/dL 5:00 PM [facility] Hematocrit 31.4 (L) 35.0 - 08/10/2020 [facility] OF 47.0 % 5:00 PM [facility] MCV 91 78 - 100 08/10/2020 [facility] OF fl 5:00 PM [facility] MCH 30.3 26.5 - 08/10/2020 [facility] OF 33.0 pg 5:00 PM [facility] MCHC 33.4 31.5 - 08/10/2020 [facility] OF 36.5 g/dL 5:00 PM [facility] RDW 12.4 10.0 - 08/10/2020 [facility] OF 15.0 % 5:00 PM [facility] Platelet Count 169 150 - 450 08/10/2020 [facility] OF 10e9/L 5:00 PM [facility] Specimen Anatomical Collection Method Collection Time Receive d Time (Source) Location / / Volume Laterality Blood specimen 08/10/2020 4:00 PM 021 4:35 (specimen) PSYCHOLOGY DEPARTMENT CHAIR PM PSYCHOLOGY DEPARTMENT CHAIR Eden Moncada MD LAB - BLOOD ORDERABLES Performing Organization Address City/State/ZIP Code Phon e Number [facility] [address] [place] [address] [facility] Partial thromboplastin time (08/10/2020 4:00 PM PSYCHOLOGY DEPARTMENT CHAIR) P athologist Signature PTT 31 22 - 37 sec 08/10/2020 [facility] 4:[address]OLOGY DEPARTMENT CHAIR [facility] Specimen Anatomical Collection Method Collection Time Receive d Time (Source) Location / / Volume Laterality Blood specimen 08/10/2020 4:00 PM 021 4:35 (specimen) PSYCHOLOGY DEPARTMENT CHAIR PM PSYCHOLOGY DEPARTMENT CHAIR Eden Moncada MD LAB - BLOOD ORDERABLES Performing Organization Address City/State/ZIP Code Phon e Number [facility] INR (08/10/2020 4:00 PM PSYCHOLOGY DEPARTMENT CHAIR) P athologist Signature INR 1.14 0.86 - 1.14 08/10/2020 [facility] 4:49 [address] PSYCHOLOGY DEPARTMENT CHAIR [facility] Specimen Anatomical Collection Method Collection Time Receive d Time (Source) Location / / Volume Laterality Blood specimen 08/10/2020 4:00 PM 021 4:35 (specimen) PSYCHOLOGY DEPARTMENT CHAIR PM PSYCHOLOGY DEPARTMENT CHAIR Eden Moncada MD LAB - BLOOD ORDERABLES Performing Organization Address City/[facility]/ZIP Code Phon e Number [facility] Fibrinogen activity (08/10/2020 4:00 PM PSYCHOLOGY DEPARTMENT CHAIR) P athologist Signature Fibrinogen 350 200 - 420 08/10/2020 U OF [facility] mg/dL 4:50 PM PSYCHOLOGY DEPARTMENT CHAIR [facility] Specimen Anatomical Collection Method Collection Time Receive d Time (Source) Location / / Volume Laterality Blood specimen 08/10/2020 4:00 PM 021 4:35 (specimen) PSYCHOLOGY DEPARTMENT CHAIR PM PSYCHOLOGY DEPARTMENT CHAIR Eden Moncada MD LAB - BLOOD ORDERABLES Performing Organization Address City/State/ZIP Code Phon e Number [facility] (ABNORMAL) TEG without Heparinase (08/10/2020 10:00 AM PSYCHOLOGY DEPARTMENT CHAIR) [facility] gist Method Time Signature R time until clot 3.2 (L) 5 - 10 08/10/2020 [facility] OF forms Minute 12:19 PM [facility] K time to spec clot 1.1 1 - 3 08/10/2020 [facility] Y OF strength Minute 12:19 PM [facility] Angle rate of clot 75.6 (H) 53 - 72 08/10/2020 [facility] OF strength Degrees 12:19 PM [facility] MA maximum clot 62.8 50 - 70 mm 08/10/2020 [facility] O F strength 12:19 PM [facility] CI hypercoagulation 3.1 (H) 0.0 - 3.0 08/10/2020 [facility] Y OF index Ratio 12:19 PM [facility] G actual clot 8.4 4.5 - 11.0 08/10/2020 [facility] Kd/sc 12:19 PM [facility] LY30 lysis at 30 2.8 0 - 8 % 08/10/2020 [facility] O F minutes 12:19 PM [facility] LY60 lysis at 60 6.3 0 - 15 % 08/10/2020 [place] O F minutes 12:19 PM [facility] Specimen Anatomical Collection Method Collection Time Receive d Time (Source) Location / / Volume Laterality Blood specimen 08/10/2020 10:00 (specimen) AM PSYCHOLOGY DEPARTMENT CHAIR 10:13 AM PSYCHOLOGY DEPARTMENT CHAIR Eden Moncada MD LAB - BLOOD ORDERABLES Performing Organization Address City/State/ZIP Code Phon e Number [facility] [address] [place] [address] [facility] (ABNORMAL) CBC with platelets (08/10/2020 10:00 AM PSYCHOLOGY DEPARTMENT CHAIR) [facility] Method Time Signature WBC 11.4 (H) 4.0 - 11.0 08/10/2020 [facility] OF 10e9/L 10:16 AM [facility] RBC Count 3.26 (L) 3.8 - 5.2 08/10/2020 [facility] OF 10e12/L 10:16 AM [facility] Hemoglobin 10.1 (L) 11.7 - 08/10/2020 [facility] 15.7 g/dL 10:16 AM [facility] Hematocrit 29.5 (L) 35.0 - 08/10/2020 [place] OF 47.0 % 10:16 AM [facility] MCV 91 78 - 100 08/10/2020 [facility] OF fl 10:16 AM [facility] MCH 31.0 26.5 - 08/10/2020 [place] OF 33.0 pg 10:16 AM [facility] MCHC 34.2 31.5 - 08/10/2020 [facility] 36.5 g/dL 10:16 AM [facility] RDW 12.3 10.0 - 08/10/2020 [facility] 15.0 % 10:16 AM [facility] Platelet Count 182 150 - 450 08/10/2020 [facility] OF 10e9/L 10:16 AM [facility] Specimen Anatomical Collection Method Collection Time Receive d Time (Source) Location / / Volume Laterality Blood specimen 08/10/2020 10:00 1 (specimen) AM PSYCHOLOGY DEPARTMENT CHAIR 10:11 AM PSYCHOLOGY DEPARTMENT CHAIR Eden Moncada MD LAB - BLOOD ORDERABLES Performing Organization Address City/State/ZIP Code Phon e Number [address] Partial thromboplastin time (08/10/2020 10:00 AM PSYCHOLOGY DEPARTMENT CHAIR) P athologist Signature PTT 30 22 - 37 sec 08/10/2020 [facility] 10:30 AM [facility] Specimen Anatomical Collection Method Collection Time Receive d Time (Source) Location / / Volume Laterality Blood specimen 08/10/2020 10:00 1 (specimen) AM PSYCHOLOGY DEPARTMENT CHAIR 10:11 AM PSYCHOLOGY DEPARTMENT CHAIR Eden Moncada MD LAB - BLOOD ORDERABLES Performing Organization Address City/State/ZIP Code Phon e Number [address] (ABNORMAL) INR (08/10/2020 10:00 AM PSYCHOLOGY DEPARTMENT CHAIR) P athologist Signature INR 1.17 (H) 0.86 - 1.14 08/10/2020 [facility] OF 10:30 AM [facility] Specimen Anatomical Collection Method Collection Time Receive d Time (Source) Location / / Volume Laterality Blood specimen 08/10/2020 10:00 1 (specimen) AM PSYCHOLOGY DEPARTMENT CHAIR 10:11 AM PSYCHOLOGY DEPARTMENT CHAIR Eden Moncada MD LAB - BLOOD ORDERABLES Performing Organization Address City/State/ZIP Code Phon e Number [address] [address] [facility] Fibrinogen activity (08/10/2020 10:00 AM PSYCHOLOGY DEPARTMENT CHAIR) P athologist Signature Fibrinogen 274 200 - 420 08/10/2020 [facility] OF mg/dL 10:30 AM [facility] Specimen Anatomical Collection Method Collection Time Receive d Time (Source) Location / / Volume Laterality Blood specimen 08/10/2020 10:00 1 (specimen) AM PSYCHOLOGY DEPARTMENT CHAIR 10:11 AM PSYCHOLOGY DEPARTMENT CHAIR Eden Moncada MD LAB - BLOOD ORDERABLES Performing Organization Address City/[facility]/ZIP Code Phon e Number [address] [address] [facility] (ABNORMAL) CBC with platelets (08/10/2020 4:00 AM PSYCHOLOGY DEPARTMENT CHAIR) Patholo gist Method Time Signature WBC 13.8 (H) 4.0 - 11.0 08/10/2020 [facility] OF 10e9/L 4:35 AM [facility] RBC Count 3.32 (L) 3.8 - 5.2 08/10/2020 [facility] OF 10e12/L 4:35 AM [facility] Hemoglobin 10.1 (L) 11.7 - 08/10/2020 [facility] OF 15.7 g/dL 4:35 AM [facility] Hematocrit 29.9 (L) 35.0 - 08/10/2020 [facility] OF 47.0 % 4:35 AM [facility] MCV 90 78 - 100 08/10/2020 [facility] OF fl 4:35 AM [facility] MCH 30.4 26.5 - 08/10/2020 [facility] OF 33.0 pg 4:35 AM [facility] MCHC 33.8 31.5 - 08/10/2020 [facility] OF 36.5 g/dL 4:35 AM [facility] RDW 12.3 10.0 - 08/10/2020 [facility] OF 15.0 % 4:35 AM [facility] Platelet Count 202 150 - 450 08/10/2020 [facility] OF 10e9/L 4:35 AM [facility] Specimen Anatomical Collection Method Collection Time Receive d Time (Source) Location / / Volume Laterality Blood specimen 08/10/2020 4:00 AM 021 4:32 (specimen) PSYCHOLOGY DEPARTMENT CHAIR AM PSYCHOLOGY DEPARTMENT CHAIR Marina Becerril MD LAB - BLOOD ORDERABLES Performing Organization Address City/[facility]/ZIP Code Phon e Number [address] [address] [facility] Fibrinogen activity (08/10/2020 4:00 AM PSYCHOLOGY DEPARTMENT CHAIR) P athologist Signature Fibrinogen 238 200 - 420 08/10/2020 [facility] OF mg/dL 5:12 AM [facility] Specimen Anatomical Collection Method Collection Time Receive d Time (Source) Location / / Volume Laterality Blood specimen 08/10/2020 4:00 AM 021 4:32 (specimen) PSYCHOLOGY DEPARTMENT CHAIR AM PSYCHOLOGY DEPARTMENT CHAIR Marina Becerril MD LAB - BLOOD ORDERABLES Performing Organization Address City/State/ZIP Code Phon e Number [address] [address] [facility] (ABNORMAL) INR (08/10/2020 4:00 AM PSYCHOLOGY DEPARTMENT CHAIR) P athologist Signature INR 1.15 (H) 0.86 - 1.14 08/10/2020 [facility] OF 5:11 AM [facility] Specimen Anatomical Collection Method Collection Time Receive d Time (Source) Location / / Volume Laterality Blood specimen 08/10/2020 4:00 AM 021 4:32 (specimen) PSYCHOLOGY DEPARTMENT CHAIR AM PSYCHOLOGY DEPARTMENT CHAIR Marina Becerril MD LAB - BLOOD ORDERABLES Performing Organization Address City/State/ZIP Code Phon e Number [address] [address] [facility] Partial thromboplastin time (08/10/2020 4:00 AM PSYCHOLOGY DEPARTMENT CHAIR) P athologist Signature PTT 28 22 - 37 sec 08/10/2020 [facility] 5:11 AM [facility] Specimen Anatomical Collection Method Collection Time Receive d Time (Source) Location / / Volume Laterality Blood specimen 08/10/2020 4:00 AM 021 4:32 (specimen) PSYCHOLOGY DEPARTMENT CHAIR AM PSYCHOLOGY DEPARTMENT CHAIR Marina eBcerril MD LAB - BLOOD ORDERABLES Performing Organization Address City/[facility] Phon e Number [address] (ABNORMAL) TEG without Heparinase (08/10/2020 4:00 AM PSYCHOLOGY DEPARTMENT CHAIR) [facility] gist Method Time Signature R time until clot 2.6 (L) 5 - 10 08/10/2020 UN[facility]ITY [facility] Minute 6:17 AM [facility] K time to spec clot 1.0 1 - 3 08/10/2020 [facility]IT Y OF strength Minute 6:17 AM [facility] Angle rate of clot 76.9 (H) 53 - 72 08/10/2020 [facility] OF [facility] Degrees 6:17 AM [facility] MA maximum clot 64.1 50 - 70 mm 08/10/2020 [facility]ITY O F strength 6:17 AM [facility] CI hypercoagulation 3.8 (H) 0.0 - 3.0 08/10/2020 [facility]IT Y OF index Ratio 6:17 AM [facility] G actual clot 8.9 4.5 - 11.0 08/10/2020 UN[facility]ERSITY [facility] Kd/sc 6:17 AM [facility] LY30 lysis at 30 2.4 0 - 8 % 08/10/2020 [facility]ITY O F minutes 6:17 AM [facility] LY60 lysis at 60 5.7 0 - 15 % 08/10/2020 [facility]ITY O F minutes 6:17 AM [facility] Specimen Anatomical Collection Method Collection Time Receive d Time (Source) Location / / Volume Laterality Blood specimen 08/10/2020 4:00 AM 021 4:32 (specimen) PSYCHOLOGY DEPARTMENT CHAIR AM PSYCHOLOGY DEPARTMENT CHAIR Marina Becerril MD LAB - BLOOD ORDERABLES Performing Organization Address City/[facility] Phon e Number [address] [address] [facility] Fibrinogen activity (08/09/2020 10:00 PM PSYCHOLOGY DEPARTMENT CHAIR) P athologist Signature Fibrinogen 206 200 - 420 08/09/2020 [facility] mg/dL 10:58 PM [facility] Specimen Anatomical Collection Method Collection Time Receive d Time (Source) Location / / Volume Laterality 08/09/2020 10:00 08/09/2020 PM PSYCHOLOGY DEPARTMENT CHAIR 10:11 PM PSYCHOLOGY DEPARTMENT CHAIR Janine Leone MD LAB - BLOOD ORDERABLES Performing Organization Address City/[facility]/ZIP Code Phon e Number [address] [address] [facility] Partial thromboplastin time (08/09/2020 10:00 PM PSYCHOLOGY DEPARTMENT CHAIR) athologist Signature PTT 26 22 - 37 sec 08/09/2020 [facility] 10:28 PM [facility] Specimen Anatomical Collection Method Collection Time Receive d Time (Source) Location / / Volume Laterality Blood specimen 08/09/2020 10:00 1 (specimen) PM PSYCHOLOGY DEPARTMENT CHAIR 10:11 PM PSYCHOLOGY DEPARTMENT CHAIR Janine Leone MD LAB - BLOOD ORDERABLES Performing Organization Address City/[facility]/ZIP Code Phon e Number [address] [address] [facility] INR (08/09/2020 10:00 PM PSYCHOLOGY DEPARTMENT CHAIR) P athologist Signature INR 1.11 0.86 - 1.14 08/09/2020 [facility] 10:27 PM [facility] Specimen Anatomical Collection Method Collection Time Receive d Time (Source) Location / / Volume Laterality Blood specimen 08/09/2020 10:00 1 (specimen) PM PSYCHOLOGY DEPARTMENT CHAIR 10:11 PM PSYCHOLOGY DEPARTMENT CHAIR Janine Leone MD LAB - BLOOD ORDERABLES Performing Organization Address City/[facility]/ZIP Code Phon e Number [address] [address] [facility] (ABNORMAL) TEG without Heparinase (08/09/2020 10:00 PM PSYCHOLOGY DEPARTMENT CHAIR) Patholo gist Method Time Signature R time until clot 3.1 (L) 5 - 10 08/10/2020 [facility] OF forms Minute 1:26 AM [facility] K time to spec clot 1.1 1 - 3 08/10/2020 [facility] Y OF strength Minute 1:26 AM [facility] Angle rate of clot 74.3 (H) 53 - 72 08/10/2020 [facility] OF strength Degrees 1:26 AM [facility] MA maximum clot 63.9 50 - 70 mm 08/10/2020 [facility]ITY O F strength 1:26 AM [facility] CI hypercoagulation 3.3 (H) 0.0 - 3.0 08/10/2020 [facility]IT Y OF index Ratio 1:26 AM [facility] G actual clot 8.8 4.5 - 11.0 08/10/2020 UN[facility]ERSITY [facility] Kd/sc 1:26 AM [facility] LY30 lysis at 30 2.1 0 - 8 % 08/10/2020 [facility]ITY O F minutes 1:26 AM [facility] LY60 lysis at 60 5.5 0 - 15 % 08/10/2020 [place] O F minutes 1:26 AM [facility] Specimen Anatomical Collection Method Collection Time Receive d Time (Source) Location / / Volume Laterality Blood specimen 08/09/2020 10:00 (specimen) PM PSYCHOLOGY DEPARTMENT CHAIR 10:11 PM PSYCHOLOGY DEPARTMENT CHAIR Janine Leone MD LAB - BLOOD ORDERABLES Performing Organization Address City/State/ZIP Code Phon e Number [facility] [address] [place] [address] [facility] (ABNORMAL) CBC with platelets (08/09/2020 10:00 PM PSYCHOLOGY DEPARTMENT CHAIR) [facility] gist Method Time Signature WBC 12.1 (H) 4.0 - 11.0 08/09/2020 [facility] OF 10e9/L 10:14 PM [facility] RBC Count 3.38 (L) 3.8 - 5.2 08/09/2020 [facility] OF 10e12/L 10:14 PM [facility] Hemoglobin 10.4 (L) 11.7 - 08/09/2020 [facility] OF 15.7 g/dL 10:14 PM [facility] Hematocrit 30.3 (L) 35.0 - 08/09/2020 [facility] OF 47.0 % 10:14 PM [facility] MCV 90 78 - 100 08/09/2020 [facility] OF fl 10:14 PM [facility] MCH 30.8 26.5 - 08/09/2020 [facility] OF 33.0 pg 10:14 PM [facility] MCHC 34.3 31.5 - 08/09/2020 [facility] OF 36.5 g/dL 10:14 PM [facility] RDW 12.1 10.0 - 08/09/2020 [facility] OF 15.0 % 10:14 PM [facility] Platelet Count 211 150 - 450 08/09/2020 [facility] OF 10e9/L 10:14 PM [facility] Specimen Anatomical Collection Method Collection Time Receive d Time (Source) Location / / Volume Laterality Blood specimen 08/09/2020 10:00 1 (specimen) PM PSYCHOLOGY DEPARTMENT CHAIR 10:11 PM PSYCHOLOGY DEPARTMENT CHAIR Janine Leone MD LAB - BLOOD ORDERABLES Performing Organization Address City/State/ZIP Code Phon e Number [facility] [address] [place] [address] [facility] (ABNORMAL) TEG without Heparinase (08/09/2020 5:54 PM PSYCHOLOGY DEPARTMENT CHAIR) Patholo gist Method Time Signature R time until clot 3.2 (L) 5 - 10 08/09/2020 [facility] OF forms Minute 8:34 PM [facility] K time to spec clot 0.8 (L) 1 - 3 08/09/2020 [facility]ERSIT Y OF strength Minute 8:34 PM [facility] Angle rate of clot 78.4 (H) 53 - 72 08/09/2020 [facility] OF strength Degrees 8:34 PM [facility] MA maximum clot 68.3 50 - 70 mm 08/09/2020 [facility]ITY O F strength 8:34 PM [facility] CI hypercoagulation 4.1 (H) 0.0 - 3.0 08/09/2020 [facility]IT Y OF index Ratio 8:34 PM [facility] G actual clot 10.8 4.5 - 11.0 08/09/2020 [facility]ITY OF strength Kd/sc 8:34 PM [facility] LY30 lysis at 30 1.2 0 - 8 % 08/09/2020 UN[facility]ERSITY O F minutes 8:34 PM [facility] LY60 lysis at 60 3.8 0 - 15 % 08/09/2020 [place] O F minutes 8:34 PM [facility] Specimen Anatomical Collection Method Collection Time Receive d Time (Source) Location / / Volume Laterality Blood specimen 08/09/2020 5:54 PM 021 5:59 (specimen) PSYCHOLOGY DEPARTMENT CHAIR PM PSYCHOLOGY DEPARTMENT CHAIR Janine Leone MD LAB - BLOOD ORDERABLES Performing Organization Address City/[facility]/ZIP Code Phon e Number [address] [address] [facility] Fibrinogen activity (08/09/2020 5:45 PM PSYCHOLOGY DEPARTMENT CHAIR) athologist Signature Fibrinogen 205 200 - 420 08/09/2020 UNIVERSITY mg/dL 6:23 PM [facility] Specimen Anatomical Collection Method Collection Time Receive d Time (Source) Location / / Volume Laterality Blood specimen 08/09/2020 5:45 PM 021 5:51 (specimen) PSYCHOLOGY DEPARTMENT CHAIR PM PSYCHOLOGY DEPARTMENT CHAIR Janine Leone MD LAB - BLOOD ORDERABLES Performing Organization Address City/[facility]/ZIP Code Phon e Number [address] [address] [facility] Partial thromboplastin time (08/09/2020 5:45 PM PSYCHOLOGY DEPARTMENT CHAIR) athologist Signature PTT 26 22 - 37 sec 08/09/2020 [facility] 6:23 PM [facility] Specimen Anatomical Collection Method Collection Time Receive d Time (Source) Location / / Volume Laterality Blood specimen 08/09/2020 5:45 PM 021 5:51 (specimen) PSYCHOLOGY DEPARTMENT CHAIR PM PSYCHOLOGY DEPARTMENT CHAIR Janine Leone MD LAB - BLOOD ORDERABLES Performing Organization Address City/[facility]/ZIP Code Phon e Number [address] [address] [facility] INR (08/09/2020 5:45 PM PSYCHOLOGY DEPARTMENT CHAIR) P athologist Signature INR 1.14 0.86 - 1.14 08/09/2020 [facility] 6:23 PM [facility] Specimen Anatomical Collection Method Collection Time Receive d Time (Source) Location / / Volume Laterality Blood specimen 08/09/2020 5:45 PM 021 5:51 (specimen) PSYCHOLOGY DEPARTMENT CHAIR PM PSYCHOLOGY DEPARTMENT CHAIR Janine Leone MD LAB - BLOOD ORDERABLES Performing Organization Address City/[facility]/ZIP Code Phon e Number [facility] [address] [place] [address] [facility] (ABNORMAL) CBC with platelets (08/09/2020 5:45 PM PSYCHOLOGY DEPARTMENT CHAIR) [facility] gist Method Time Signature WBC 12.6 (H) 4.0 - 11.0 08/09/2020 [facility]ITY OF 10e9/L 5:57 PM [facility] RBC Count 3.41 (L) 3.8 - 5.2 08/09/2020 [facility]ITY OF 10e12/L 5:57 PM [facility] Hemoglobin 10.5 (L) 11.7 - 08/09/2020 [facility]ITY OF 15.7 g/dL 5:57 PM [facility] Hematocrit 30.8 (L) 35.0 - 08/09/2020 [facility]ITY OF 47.0 % 5:57 PM [facility] MCV 90 78 - 100 08/09/2020 UN[facility]ERSITY OF fl 5:57 PM [facility] MCH 30.8 26.5 - 08/09/2020 [facility] OF 33.0 pg 5:57 PM [facility] MCHC 34.1 31.5 - 08/09/2020 [facility] OF 36.5 g/dL 5:57 PM [facility] RDW 12.1 10.0 - 08/09/2020 [facility] OF 15.0 % 5:57 PM [facility] Platelet Count 203 150 - 450 08/09/2020 [facility]ITY OF 10e9/L 5:57 PM [facility] Specimen Anatomical Collection Method Collection Time Receive d Time (Source) Location / / Volume Laterality Blood specimen 08/09/2020 5:45 PM 021 5:51 (specimen) PSYCHOLOGY DEPARTMENT CHAIR PM PSYCHOLOGY DEPARTMENT CHAIR Janine Leone MD LAB - BLOOD ORDERABLES Performing Organization Address City/State/ZIP Code Phon e Number [facility] [address] [place] [address] [facility] Methicillin Resist/Sens S. aureus PCR (08/09/2020 2:10 PM PSYCHOLOGY DEPARTMENT CHAIR) Patholo gist Method Time Signature Specimen Nares 08/09/2020 [facility] Description 2:39 PM [facility] Methicillin Negative NEG^Negat 08/09/2020 [facility] Resist/Sens S. mindy 5:[address] [facility] aureus PCR [facility] Comment: MRSA Negative: SA Negative ??MRSA and St aphylococcus aureus target DNA not detected, presumed negative for MRSA and SA colonization or the number of bacteria present may be below the limit of detection for the assay. FDA approved assay performed using [employer] enVisiogenert(R) real-time PCR. Specimen (Source) Anatomical Collection Method Collection Time Re ceived Time Location / / Volume Laterality Nasal structure SWAB FROM NASAL 08/09/2020 2:10 2020 2:45 (body structure) SINUS / Unknown PM PSYCHOLOGY DEPARTMENT CHAIR PM PSYCHOLOGY DEPARTMENT CHAIR Janine Leone MD LAB - MICRO GENERAL ORDERABL ES Performing Organization Address City/State/ZIP Code Phon e Number [facility] [facility] [address] [place], [place] [id number] [place] [address] [facility] Iron and iron binding capacity (08/09/2020 1:45 PM PSYCHOLOGY DEPARTMENT CHAIR) P athologist Signature Iron 74 35 - 180 08/10/2020 [facility] M [facility] ug/dL 12:34 PM [facility] Iron Binding 306 240 - 430 08/10/2020 [facility] Cap ug/dL 12:34 PM [facility] Iron Saturation 24 15 - 46 % 08/10/2020 U [facility] M [facility] Z Index 12:34 PM [facility] Specimen Anatomical Collection Method Collection Time Receive d Time (Source) Location / / Volume Laterality 08/09/2020 1:45 PM 2:04 PSYCHOLOGY DEPARTMENT CHAIR PM PSYCHOLOGY DEPARTMENT CHAIR Janine Leone MD LAB - BLOOD ORDERABLES Performing Organization Address City/State/ZIP Code Phon e Number U OF [facility] (ABNORMAL) TEG without Heparinase (08/09/2020 1:45 PM PSYCHOLOGY DEPARTMENT CHAIR) Patholo gist Method Time Signature R time until clot 3.7 (L) 5 - 10 08/09/2020 UN[facility]ERSITY OF forms Minute 6:32 PM [facility] K time to spec clot 1.2 1 - 3 08/09/2020 UNIVERSIT Y OF strength Minute 6:32 PM [facility] Angle rate of clot 72.4 (H) 53 - 72 08/09/2020 [facility]ERSITY OF strength Degrees 6:32 PM [facility] MA maximum clot 62.9 50 - 70 mm 08/09/2020 UNIVERSITY O F strength 6:32 PM [facility] CI hypercoagulation 2.5 0.0 - 3.0 08/09/2020 UNIVERSIT Y OF index Ratio 6:32 PM [facility] G actual clot 8.5 4.5 - 11.0 08/09/2020 UNIVERSITY [facility] Kd/sc 6:32 PM [facility] LY30 lysis at 30 1.8 0 - 8 % 08/09/2020 UNIVERSITY O F minutes 6:32 PM [facility] LY60 lysis at 60 4.9 0 - 15 % 08/09/2020 UNIVERSITY O F minutes 6:32 PM [facility] Specimen Anatomical Collection Method Collection Time Receive d Time (Source) Location / / Volume Laterality Blood specimen 08/09/2020 1:45 PM 021 2:04 (specimen) PSYCHOLOGY DEPARTMENT CHAIR PM PSYCHOLOGY DEPARTMENT CHAIR Janine Leone MD LAB - BLOOD ORDERABLES Performing Organization Address City/State/ZIP Code Phon e Number [facility] [address] [place] [address] [facility] (ABNORMAL) Fibrinogen activity (08/09/2020 1:45 PM PSYCHOLOGY DEPARTMENT CHAIR) P athologist Signature Fibrinogen 174 (L) 200 - 420 08/09/2020 [facility] M [facility] mg/dL 2:[address] DEPARTMENT CHAIR [facility] Specimen Anatomical Collection Method Collection Time Receive d Time (Source) Location / / Volume Laterality Blood specimen 08/09/2020 1:45 PM 021 2:04 (specimen) PSYCHOLOGY DEPARTMENT CHAIR PM PSYCHOLOGY DEPARTMENT CHAIR Janine Leone MD LAB - BLOOD ORDERABLES Performing Organization Address City/State/ZIP Code Phon e Number [facility] OF [facility] INR (08/09/2020 1:45 PM PSYCHOLOGY DEPARTMENT CHAIR) P athologist Signature INR 1.14 0.86 - 1.14 08/09/2020 [facility] 2:20 PM [facility] Specimen Anatomical Collection Method Collection Time Receive d Time (Source) Location / / Volume Laterality Blood specimen 08/09/2020 1:45 PM 021 2:04 (specimen) PSYCHOLOGY DEPARTMENT CHAIR PM PSYCHOLOGY DEPARTMENT CHAIR Janine Leone MD LAB - BLOOD ORDERABLES Performing Organization Address City/State/ZIP Code Phon e Number U OF [facility] Partial thromboplastin time (08/09/2020 1:45 PM PSYCHOLOGY DEPARTMENT CHAIR) athologist Signature PTT 28 22 - 37 sec 08/09/2020 U [facility] 2:21 PM [facility] Specimen Anatomical Collection Method Collection Time Receive d Time (Source) Location / / Volume Laterality Blood specimen 08/09/2020 1:45 PM 021 2:04 (specimen) PSYCHOLOGY DEPARTMENT CHAIR PM PSYCHOLOGY DEPARTMENT CHAIR Janine Leone MD LAB - BLOOD ORDERABLES Performing Organization Address City/State/ZIP Code Phon e Number U OF [facility] (ABNORMAL) CBC with platelets (08/09/2020 1:45 PM PSYCHOLOGY DEPARTMENT CHAIR) [facility] gist Method Time Signature WBC 11.6 (H) 4.0 - 11.0 08/09/2020 UNIVERSITY OF 10e9/L 2:08 PM [facility] RBC Count 3.47 (L) 3.8 - 5.2 08/09/2020 UN[facility]ERSITY OF 10e12/L 2:08 PM [facility] Hemoglobin 10.6 (L) 11.7 - 08/09/2020 UNIVERSITY OF 15.7 g/dL 2:08 PM [facility] Hematocrit 31.4 (L) 35.0 - 08/09/2020 UNIVERSITY 47.0 % 2:08 PM [facility] MCV 91 78 - 100 08/09/2020 UNIVERSITY OF fl 2:08 PM [facility] MCH 30.5 26.5 - 08/09/2020 UNIVERSITY OF 33.0 pg 2:08 PM [facility] MCHC 33.8 31.5 - 08/09/2020 UNIVERSITY OF 36.5 g/dL 2:08 PM [facility] RDW 12.0 10.0 - 08/09/2020 UN[facility]ERSITY OF 15.0 % 2:08 PM [facility] Platelet Count 238 150 - 450 08/09/2020 UN[facility]ERSITY OF 10e9/L 2:08 PM [facility] Specimen Anatomical Collection Method Collection Time Receive d Time (Source) Location / / Volume Laterality Blood specimen 08/09/2020 1:45 PM 021 2:04 (specimen) PSYCHOLOGY DEPARTMENT CHAIR PM PSYCHOLOGY DEPARTMENT CHAIR Janine Leone MD LAB - BLOOD ORDERABLES Performing Organization Address City/State/ZIP Code Phon e Number [facility] [address] [place] [address] [facility] Prealbumin (08/09/2020 1:45 PM PSYCHOLOGY DEPARTMENT CHAIR) P athologist Signature Prealbumin 24 15 - 45 08/09/2020 [facility] mg/dL 2:27 PM [facility] Specimen Anatomical Collection Method Collection Time Receive d Time (Source) Location / / Volume Laterality Blood specimen 08/09/2020 1:45 PM 021 2:04 (specimen) PSYCHOLOGY DEPARTMENT CHAIR PM PSYCHOLOGY DEPARTMENT CHAIR Janine Leone MD LAB - BLOOD ORDERABLES Performing Organization Address City/State/ZIP Code Phon e Number U [facility] U OF M [facility] Magnesium (08/09/2020 1:45 PM PSYCHOLOGY DEPARTMENT CHAIR) P athologist Signature Magnesium 1.6 1.6 - 2.3 08/09/2020 [facility] mg/dL 2:24 PM [facility] Specimen Anatomical Collection Method Collection Time Receive d Time (Source) Location / / Volume Laterality Blood specimen 08/09/2020 1:45 PM 021 2:04 (specimen) PSYCHOLOGY DEPARTMENT CHAIR PM PSYCHOLOGY DEPARTMENT CHAIR Janine Leone MD LAB - BLOOD ORDERABLES Performing Organization Address City/State/ZIP Code Phon e Number U [facility] U OF M [facility] Calcium ionized whole blood (08/09/2020 1:45 PM PSYCHOLOGY DEPARTMENT CHAIR) athologist Signature Calcium 4.4 4.4 - 5.2 08/09/2020 UNIVERSITY OF Ionized Whole mg/dL 2:08 PM [facility] Specimen Anatomical Collection Method Collection Time Receive d Time (Source) Location / / Volume Laterality Blood specimen 08/09/2020 1:45 PM 021 2:04 (specimen) PSYCHOLOGY DEPARTMENT CHAIR PM PSYCHOLOGY DEPARTMENT CHAIR Janine Leone MD LAB - BLOOD ORDERABLES Performing Organization Address City/State/ZIP Code Phon e Number [facility] [address] [place] [address] [facility] (ABNORMAL) Renal Panel (08/09/2020 1:45 PM PSYCHOLOGY DEPARTMENT CHAIR) athologist Signature Sodium 139 133 - 144 08/09/2020 U OF M mmol/L 2:18 PM [facility] Potassium 3.7 3.4 - 5.3 08/09/2020 U OF M mmol/L 2:18 PM [facility] Chloride 106 96 - 110 08/09/2020 U OF M mmol/L 2:18 PM [facility] Carbon Dioxide 25 20 - 32 08/09/2020 U OF M mmol/L 2:24 PM [facility] Anion Gap 8 3 - 14 08/09/2020 U OF M mmol/L 2:24 PM [facility] Glucose 164 (H) 70 - 99 08/09/2020 U OF M mg/dL 2:24 PM [facility] Urea Nitrogen 12 7 - 30 08/09/2020 U OF M mg/dL 2:24 PM [facility] Creatinine 0.66 0.50 - 08/09/2020 U OF M 1.00 mg/dL 2:24 PM [facility] GFR Estimate >90 >60 08/09/2020 U OF M mL/min/{1. 2:24 PM [facility] 73_m2} [facility] Comment: Non GFR Calc Starting 07/22/2018, serum creatinine ba sed estimated GFR (eGFR) will be calculated using the Chronic Kidney Dise [facility] Epidemiology Collaboration (CKD-EPI) equation. GFR Estimate If >90 >60 mL/min/{1.73_m2} 08/09/2020 2: 24 PM U OF [facility] Black [facility] Comment: GFR Calc Starting 07/22/2018, serum creatinine ba sed estimated GFR (eGFR) will be calculated using the Chronic Kidney Dise [facility] Epidemiology Collaboration (CKD-EPI) equation. Calcium 7.9 (L) 8.5 - 10.1 mg/dL 08/09/2020 2:24 PM PSYCHOLOGY DEPARTMENT CHAIR [facility] Phosphorus 3.0 2.5 - 4.5 mg/dL 08/09/2020 2:24 PM PSYCHOLOGY DEPARTMENT CHAIR [facility] Albumin 3.5 3.4 - 5.0 g/dL 08/09/2020 2:24 PM PSYCHOLOGY DEPARTMENT CHAIR [facility] Specimen Anatomical Collection Method Collection Time Receive d Time (Source) Location / / Volume Laterality Blood specimen 08/09/2020 1:45 PM 021 2:04 (specimen) PSYCHOLOGY DEPARTMENT CHAIR PM PSYCHOLOGY DEPARTMENT CHAIR Janine Leone MD LAB - BLOOD ORDERABLES Performing Organization Address City/State/ZIP Code Phon e Number [facility] OF [facility] XR Surgery ELIER L/T 5 Min Fluoro (08/09/2020 12:05 PM PSYCHOLOGY DEPARTMENT CHAIR) Specimen (Source) Anatomical Location Collection Method / Collectio n Time Received Time / Laterality Volume Narrative [facility] - 08/09/2020 12:06 PM PSYCHOLOGY DEPARTMENT CHAIR This exam was marked as non-reportable because it will not be read by a radiologist or a [place] non-radiologis t provider. Catina Ha MD IMG DIAGNOSTIC IMAGING ORDER DANO Performing Organization Address City/State/ZIP Code Phon e Number [facility] (ABNORMAL) TEG without Heparinase (08/09/2020 11:28 AM PSYCHOLOGY DEPARTMENT CHAIR) [facility] gist Method Time Signature R time until clot 3.1 (L) 5 - 10 08/09/2020 UN[facility]ERSITY [facility] Minute 1:37 PM [facility] K time to spec clot 0.8 (L) 1 - 3 08/09/2020 UNIVERSIT Y OF strength Minute 1:37 PM [facility] Angle rate of clot 76.1 (H) 53 - 72 08/09/2020 UNIVERSITY OF strength Degrees 1:37 PM [facility] MA maximum clot 68.3 50 - 70 mm 08/09/2020 UNIVERSITY O F strength 1:37 PM [facility] CI hypercoagulation 4.0 (H) 0.0 - 3.0 08/09/2020 UNIVERSIT Y OF index Ratio 1:37 PM [facility] G actual clot 10.8 4.5 - 11.0 08/09/2020 UNIVERSITY OF [facility] Kd/sc 1:37 PM [facility] LY30 lysis at 30 0.9 0 - 8 % 08/09/2020 UNIVERSITY O F minutes 1:37 PM [facility] LY60 lysis at 60 3.4 0 - 15 % 08/09/2020 UNIVERSITY O F minutes 1:37 PM [facility] Specimen Anatomical Collection Method Collection Time Receive d Time (Source) Location / / Volume Laterality 08/09/2020 11:28 08/09/2020 AM PSYCHOLOGY DEPARTMENT CHAIR 11:49 AM PSYCHOLOGY DEPARTMENT CHAIR Catina Ha MD LAB - BLOOD ORDERABLES Performing Organization Address City/[facility]/ZIP Code Phon e Number [address] Partial thromboplastin time (08/09/2020 11:28 AM PSYCHOLOGY DEPARTMENT CHAIR) P athologist Signature PTT 26 22 - 37 sec 08/09/2020 [facility] 12:06 PM [facility] Specimen Anatomical Collection Method Collection Time Receive d Time (Source) Location / / Volume Laterality 08/09/2020 11:28 08/09/2020 AM PSYCHOLOGY DEPARTMENT CHAIR 11:49 AM PSYCHOLOGY DEPARTMENT CHAIR Catina Ha MD LAB - BLOOD ORDERABLES Performing Organization Address City/State/ZIP Code Phon e Number [address] INR (08/09/2020 11:28 AM PSYCHOLOGY DEPARTMENT CHAIR) P athologist Signature INR 1.14 0.86 - 1.14 08/09/2020 [facility] 12:06 PM [facility] Specimen Anatomical Collection Method Collection Time Receive d Time (Source) Location / / Volume Laterality 08/09/2020 11:28 08/09/2020 AM PSYCHOLOGY DEPARTMENT CHAIR 11:49 AM PSYCHOLOGY DEPARTMENT CHAIR Catina Ha MD LAB - BLOOD ORDERABLES Performing Organization Address City/[facility]/ZIP Code Phon e Number [place] [id number] [facility] (ABNORMAL) Fibrinogen activity (08/09/2020 11:28 AM PSYCHOLOGY DEPARTMENT CHAIR) P athologist Signature Fibrinogen 178 (L) 200 - 420 08/09/2020 UNIVERSITY OF mg/dL 12:06 PM [facility] Specimen Anatomical Collection Method Collection Time Receive d Time (Source) Location / / Volume Laterality 08/09/2020 11:28 08/09/2020 AM PSYCHOLOGY DEPARTMENT CHAIR 11:49 AM PSYCHOLOGY DEPARTMENT CHAIR Catina Ha MD LAB - BLOOD ORDERABLES Performing Organization Address City/[facility]/ZIP Code Phon e Number [address] [address] [facility] (ABNORMAL) CBC with platelets (08/09/2020 11:28 AM PSYCHOLOGY DEPARTMENT CHAIR) Patholo gist Method Time Signature WBC 17.3 (H) 4.0 - 11.0 08/09/2020 UNIVERSITY OF 10e9/L 11:52 AM [facility] RBC Count 3.60 (L) 3.8 - 5.2 08/09/2020 UNIVERSITY OF 10e12/L 11:52 AM [facility] Hemoglobin 11.0 (L) 11.7 - 08/09/2020 UNIVERSITY OF 15.7 g/dL 11:52 AM [facility] Hematocrit 32.7 (L) 35.0 - 08/09/2020 [place] OF 47.0 % 11:52 AM [facility] MCV 91 78 - 100 08/09/2020 UNIVERSITY OF fl 11:52 AM [facility] MCH 30.6 26.5 - 08/09/2020 UNIVERSITY OF 33.0 pg 11:52 AM [facility] MCHC 33.6 31.5 - 08/09/2020 UNIVERSITY OF 36.5 g/dL 11:52 AM [facility] RDW 11.9 10.0 - 08/09/2020 UNIVERSITY OF 15.0 % 11:52 AM [facility] Platelet Count 324 150 - 450 08/09/2020 UNIVERSITY OF 10e9/L 11:52 AM [facility] Specimen Anatomical Collection Method Collection Time Receive d Time (Source) Location / / Volume Laterality 08/09/2020 11:28 08/09/2020 AM PSYCHOLOGY DEPARTMENT CHAIR 11:49 AM PSYCHOLOGY DEPARTMENT CHAIR Catina Ha MD LAB - BLOOD ORDERABLES Performing Organization Address City/State/ZIP Code Phon e Number [facility] [address] [place] [address] [facility] (ABNORMAL) TEG without Heparinase (08/09/2020 9:50 AM PSYCHOLOGY DEPARTMENT CHAIR) [facility] gist Method Time Signature R time until clot 3.3 (L) 5 - 10 08/09/2020 UNIVERSITY OF forms Minute 11:45 AM [facility] K time to spec clot 0.9 (L) 1 - 3 08/09/2020 UNIVERSIT Y OF strength Minute 11:45 AM [facility] Angle rate of clot 76.3 (H) 53 - 72 08/09/2020 UNIVERSITY OF strength Degrees 11:45 AM [facility] MA maximum clot 70.5 (H) 50 - 70 mm 08/09/2020 UNIVERSITY O F strength 11:45 AM [facility] CI hypercoagulation 4.1 (H) 0.0 - 3.0 08/09/2020 UNIVERSIT Y OF index Ratio 11:45 AM [facility] G actual clot 12.0 (H) 4.5 - 11.0 08/09/2020 UNIVERSITY OF strength Kd/sc 11:45 AM [facility] LY30 lysis at 30 0.9 0 - 8 % 08/09/2020 UNIVERSITY O F minutes 11:45 AM [facility] LY60 lysis at 60 3.5 0 - 15 % 08/09/2020 UNIVERSITY O F minutes 11:45 AM [facility] Specimen Anatomical Collection Method Collection Time Receive d Time (Source) Location / / Volume Laterality 08/09/2020 9:50 AM PSYCHOLOGY DEPARTMENT CHAIR 10:01 AM PSYCHOLOGY DEPARTMENT CHAIR Catina Ha MD LAB - BLOOD ORDERABLES Performing Organization Address City/State/ZIP Code Phon e Number [address] [address] [facility] Partial thromboplastin time (08/09/2020 9:50 AM PSYCHOLOGY DEPARTMENT CHAIR) P athologist Signature PTT 26 22 - 37 sec 08/09/2020 [facility] 10:18 AM [facility] Specimen Anatomical Collection Method Collection Time Receive d Time (Source) Location / / Volume Laterality 08/09/2020 9:50 AM PSYCHOLOGY DEPARTMENT CHAIR 10:01 AM PSYCHOLOGY DEPARTMENT CHAIR Catina Ha MD LAB - BLOOD ORDERABLES Performing Organization Address City/[facility]/ZIP Code Phon e Number [address] [address] [facility] INR (08/09/2020 9:50 AM PSYCHOLOGY DEPARTMENT CHAIR) P athologist Signature INR 1.06 0.86 - 1.14 08/09/2020 [facility] 10:27 AM [facility] Specimen Anatomical Collection Method Collection Time Receive d Time (Source) Location / / Volume Laterality 08/09/2020 9:50 AM PSYCHOLOGY DEPARTMENT CHAIR 10:01 AM PSYCHOLOGY DEPARTMENT CHAIR Catina Ha MD LAB - BLOOD ORDERABLES Performing Organization Address City/State/ZIP Code Phon e Number [address] [address] [facility] Fibrinogen activity (08/09/2020 9:50 AM PSYCHOLOGY DEPARTMENT CHAIR) P athologist Signature Fibrinogen 202 200 - 420 08/09/2020 UNIVERSITY OF mg/dL 10:27 AM [facility] Specimen Anatomical Collection Method Collection Time Receive d Time (Source) Location / / Volume Laterality 08/09/2020 9:50 AM PSYCHOLOGY DEPARTMENT CHAIR 10:01 AM PSYCHOLOGY DEPARTMENT CHAIR Catina Ha MD LAB - BLOOD ORDERABLES Performing Organization Address City/State/ZIP Code Phon e Number [address] [address] [facility] (ABNORMAL) Arterial Panel (08/09/2020 9:50 AM [facility]) [facility] Method Time Signature pH Arterial 7.45 7.35 - 08/09/2020 UNIVERSITY 7.45 pH 10:05 AM [facility] pCO2 Arterial 33 (L) 35 - 45 mm 08/09/2020 UNIVERSITY OF Hg 10:05 AM [facility] pO2 Arterial 183 (H) 80 - 105 08/09/2020 [facility] mm Hg 10:05 AM [facility] Bicarbonate 23 21 - 28 08/09/2020 UNIVERSITY Arterial mmol/L 10:05 AM [facility] Base Deficit Art 0.6 mmol/L 08/09/2020 UNIVERSITY O F 10:05 AM [facility] Comment: Reference range: -9.0 to 1.8 FIO2 STAT 08/09/2020 10:02 AM [facility] Comment: OR 17 FIO2 34% Sodium 138 133 - 144 08/09/2020 10:05 AM [facility] mmol/L [facility] Potassium 3.5 3.4 - 5.3 08/09/2020 10:05 AM [facility] mmol/L [facility] Hemoglobin 11.5 (L) 11.7 - 15.7 08/09/2020 10:05 AM [facility] g/dL [facility] Glucose 149 (H) 70 - 99 mg/dL 08/09/2020 10:05 AM [facility] Calcium Ionized 4.3 (L) 4.4 - 5.2 mg/dL 08/09/2020 10:05 A M [facility] Whole Blood [facility] Specimen Anatomical Collection Method Collection Time Receive d Time (Source) Location / / Volume Laterality 08/09/2020 9:50 AM PSYCHOLOGY DEPARTMENT CHAIR 10:01 AM PSYCHOLOGY DEPARTMENT CHAIR Catina Ha MD LAB - BLOOD ORDERABLES Performing Organization Address City/State/ZIP Code Phon e Number [facility] [address] [place] [address] [facility] : Laboratory Miscellaneous Order (08/09/2020 9:00 AM [facility]) Component Value Ref Test Analysis Performed At [facility] Range Method Time Signature Miscellaneous BIOPSY IN 08/09/2020 U OF M Test HISTOLOGY. TEST 2:46 PM PSYCHOLOGY DEPARTMENT CHAIR [facility] RE[facility]VESTIG[facility] BY [facility] STEFANIE ECHEVARRIA MD. Comment: SLC 1430 08.09.20 Specimen (Source) Anatomical Collection Method Collection Time Re ceived Time Location / / Volume Laterality Tissue specimen TOPOGRAPHY UNKNOWN 08/09/2020 9:25 AM (specimen) / Unknown PSYCHOLOGY DEPARTMENT CHAIR Comment: Skin- Freeze in liquid Nitrogen for Future Fibroblast Culture for Genetic Testing Specimen placed in dry ice until liquid nitrogen available - [employer] will need to be contacted (unable to reach from [place]) Catina Ha MD LAB - BLOOD ORDERABLES Performing Organization Address City/State/ZIP Code Phon e Number [facility] U OF M [facility] TEG without Heparinase (08/09/2020 8:45 AM PSYCHOLOGY DEPARTMENT CHAIR) [facility] gist Method Time Signature R time until clot 5.4 5 - 10 08/09/2020 UNIVERSITY OF forms Minute 10:41 AM [facility] K time to spec clot 1.5 1 - 3 08/09/2020 UNIVERSIT Y OF strength Minute 10:41 AM [facility] Angle rate of clot 68.7 53 - 72 08/09/2020 UNIVERSITY OF strength Degrees 10:41 AM [facility] MA maximum clot 63.1 50 - 70 mm 08/09/2020 UNIVERSITY O F strength 10:41 AM [facility] CI hypercoagulation 1.1 0.0 - 3.0 08/09/2020 UNIVERSIT Y OF index Ratio 10:41 AM [facility] G actual clot 8.6 4.5 - 11.0 08/09/2020 UNIVERSITY OF strength Kd/sc 10:41 AM [facility] LY30 lysis at 30 1.0 0 - 8 % 08/09/2020 UNIVERSITY O F minutes 10:41 AM [facility] LY60 lysis at 60 4.2 0 - 15 % 08/09/2020 UNIVERSITY O F minutes 10:41 AM [facility] Specimen Anatomical Collection Method Collection Time Receive d Time (Source) Location / / Volume Laterality 08/09/2020 8:45 AM 9:01 PSYCHOLOGY DEPARTMENT CHAIR AM PSYCHOLOGY DEPARTMENT CHAIR Catina Ha MD LAB - BLOOD ORDERABLES Performing Organization Address City/State/ZIP Code Phon e Number [address] [address] [facility] Partial thromboplastin time (08/09/2020 8:45 AM PSYCHOLOGY DEPARTMENT CHAIR) P athologist Signature PTT 31 22 - 37 sec 08/09/2020 [facility] 9:15 AM [facility] Specimen Anatomical Collection Method Collection Time Receive d Time (Source) Location / / Volume Laterality 08/09/2020 8:45 AM 9:01 PSYCHOLOGY DEPARTMENT CHAIR AM PSYCHOLOGY DEPARTMENT CHAIR Catina Ha MD LAB - BLOOD ORDERABLES Performing Organization Address City/State/ZIP Code Phon e Number [address] [address] [facility] INR (08/09/2020 8:45 AM PSYCHOLOGY DEPARTMENT CHAIR) P athologist Signature INR 1.07 0.86 - 1.14 08/09/2020 [facility] 9:14 AM [facility] Specimen Anatomical Collection Method Collection Time Receive d Time (Source) Location / / Volume Laterality 08/09/2020 8:45 AM 9:01 PSYCHOLOGY DEPARTMENT CHAIR AM PSYCHOLOGY DEPARTMENT CHAIR Catina Ha MD LAB - BLOOD ORDERABLES Performing Organization Address City/State/ZIP Code Phon e Number [address] [address] [facility] Fibrinogen activity (08/09/2020 8:45 AM PSYCHOLOGY DEPARTMENT CHAIR) P athologist Signature Fibrinogen 210 200 - 420 08/09/2020 UNIVERSITY OF mg/dL 9:15 AM [facility] Specimen Anatomical Collection Method Collection Time Receive d Time (Source) Location / / Volume Laterality 08/09/2020 8:45 AM 9:01 PSYCHOLOGY DEPARTMENT CHAIR AM PSYCHOLOGY DEPARTMENT CHAIR Catina Ha MD LAB - BLOOD ORDERABLES Performing Organization Address City/State/ZIP Code Phon e Number [address] [address] [facility] (ABNORMAL) CBC with platelets (08/09/2020 8:45 AM PSYCHOLOGY DEPARTMENT CHAIR) [facility] gist Method Time Signature WBC 6.5 4.0 - 11.0 08/09/2020 UNIVERSITY OF 10e9/L 9:06 AM [facility] RBC Count 3.70 (L) 3.8 - 5.2 08/09/2020 UNIVERSITY OF 10e12/L 9:06 AM [facility] Hemoglobin 11.2 (L) 11.7 - 08/09/2020 UNIVERSITY OF 15.7 g/dL 9:06 AM [facility] Hematocrit 33.1 (L) 35.0 - 08/09/2020 UNIVERSITY OF 47.0 % 9:06 AM [facility] MCV 90 78 - 100 08/09/2020 UNIVERSITY OF fl 9:06 AM [facility] MCH 30.3 26.5 - 08/09/2020 UNIVERSITY OF 33.0 pg 9:06 AM [facility] MCHC 33.8 31.5 - 08/09/2020 [facility] 36.5 g/dL 9:06 AM [facility] RDW 11.9 10.0 - 08/09/2020 [facility] 15.0 % 9:06 AM [facility] Platelet Count 285 150 - 450 08/09/2020 [facility] 10e9/L 9:06 AM [facility] Specimen Anatomical Collection Method Collection Time Receive d Time (Source) Location / / Volume Laterality 08/09/2020 8:45 AM 9:01 PSYCHOLOGY DEPARTMENT CHAIR AM PSYCHOLOGY DEPARTMENT CHAIR Catina Ha MD LAB - BLOOD ORDERABLES Performing Organization Address City/State/ZIP Code Phon e Number [facility] [address] [place] [address] [facility] (ABNORMAL) Arterial Panel (08/09/2020 8:45 AM PSYCHOLOGY DEPARTMENT CHAIR) [facility] gist Method Time Signature pH Arterial 7.47 (H) 7.35 - 08/09/2020 [facility] 7.45 pH 9:07 AM [facility] pCO2 Arterial 35 35 - 45 08/09/2020 [facility] mm Hg 9:07 AM [facility] pO2 Arterial 305 (H) 80 - 105 08/09/2020 [facility] mm Hg 9:07 AM [facility] Bicarbonate 25 21 - 28 08/09/2020 [facility] mmol/L 9:07 AM [facility] Base Excess Art 1.6 mmol/L 08/09/2020 [facility] 9:07 AM [facility] Comment: Reference range: -9.0 to 1.8 FIO2 STAT 08/09/2020 9:02 AM [facility] Comment: FIO2 100% OR17 Sodium 139 133 - 144 08/09/2020 9:07 AM [facility] mmol/L [facility] Potassium 3.4 3.4 - 5.3 08/09/2020 9:07 AM [facility] mmol/L [facility] Hemoglobin 11.2 (L) 11.7 - 15.7 08/09/2020 9:07 AM [facility] g/dL [facility] Glucose 126 (H) 70 - 99 mg/dL 08/09/2020 9:07 AM [facility] ITY [facility] Calcium Ionized 4.5 4.4 - 5.2 mg/dL 08/09/2020 9:07 AM [facility] Whole Blood [facility] T BANK Specimen Anatomical Collection Method Collection Time Receive d Time (Source) Location / / Volume Laterality 08/09/2020 8:45 AM 9:01 PSYCHOLOGY DEPARTMENT CHAIR AM [facility] Catina Ha MD LAB - BLOOD ORDERABLES Performing Organization Address City/State/ZIP Code Phon e Number [facility] [address] [place] [address] [facility] Blood component (08/09/2020 7:30 AM [facility]) [facility] Method Time Signature Unit Number [id number] 08/09/2020 [facility] 8:57 AM [facility] Blood Red Blood 08/09/2020 [facility] Component Cells 8:57 AM [facility] Leukocyte [facility] Reduced BANK Division 00 08/09/2020 [facility] Number 8:57 AM [facility] BANK Status of No longer 08/13/2020 [place] Unit available 3:00 AM [facility] 08/13/2020 HOSPITAL 0300 Blood Product [id number] 08/09/2020 [facility] Code 8:57 AM [facility] BANK Unit Status [facility] Specimen Anatomical Collection Method Collection Time Receive d Time (Source) Location / / Volume Laterality 08/09/2020 7:30 AM 7:41 PSYCHOLOGY DEPARTMENT CHAIR AM PSYCHOLOGY DEPARTMENT CHAIR Monica Deleon MD LABORATORY Performing Organization Address City/State/ZIP Code Phon e Number M [facility] [address] [place], [place] [address] [address], [facility] [address] [place], [place] [address], [facility] [phone] Blood component (08/09/2020 7:30 AM PSYCHOLOGY DEPARTMENT CHAIR) [facility] gist Method Time Signature Unit Number [id number] 08/09/2020 [facility] 8:57 AM PSYCHOLOGY DEPARTMENT CHAIR [facility] Blood Red Blood 08/09/2020 [facility] Component Cells 8:57 AM PSYCHOLOGY DEPARTMENT CHAIR [facility] Leukocyte [facility] BANK Division 00 08/09/2020 [facility] Number 8:57 AM PSYCHOLOGY DEPARTMENT CHAIR [facility] Status of No longer 08/13/2020 [facility] Unit available 3:00 AM [facility] 08/13/2020 HOSPITAL 0300 Blood Product [id number] 08/09/2020 [facility] Code 8:57 AM [facility] Unit Status [facility] Specimen Anatomical Collection Method Collection Time Receive d Time (Source) Location / / Volume Laterality 08/09/2020 7:30 AM 7:41 PSYCHOLOGY DEPARTMENT CHAIR AM PSYCHOLOGY DEPARTMENT CHAIR Monica Deleon MD LABORATORY Performing Organization Address City/State/ZIP Code Phon e Number M [facility] [address], [place] [address] [address], [facility] [address] [place], [place] [address], [facility] [phone] Glucose (08/09/2020 7:30 AM PSYCHOLOGY DEPARTMENT CHAIR) P athologist Signature Glucose 75 70 - 99 08/09/2020 [facility] [place] mg/dL 8:01 AM [facility] Specimen Anatomical Collection Method Collection Time Receive d Time (Source) Location / / Volume Laterality Blood specimen 08/09/2020 7:30 AM 021 7:43 (specimen) PSYCHOLOGY DEPARTMENT CHAIR AM PSYCHOLOGY DEPARTMENT CHAIR Catina Ha MD LAB - BLOOD ORDERABLES Performing Organization Address City/[facility]/ZIP [facility] Phon e Number [address] [phone] [facility] ABO/Rh type and screen (08/09/2020 7:30 AM PSYCHOLOGY DEPARTMENT CHAIR) Patholo gist Method Time Signature Units Ordered 2 08/09/2020 [facility] 8:57 AM [facility] ABO O 08/09/2020 [facility] 8:22 AM [facility] RH(D) Pos [facility] Antibody Neg 08/09/2020 [facility] Screen 8:22 AM [facility] Test Valid [facility] 08/09/2020 [facility] 7:51 AM [facility] BANK w Hospital Specimen 08/12/2020 08/09/2020 [facility] Expires 7:51 AM [facility] Crossmatch Red Blood 08/09/2020 [facility] Cells 8:57 AM [facility] Specimen Anatomical Collection Method Collection Time Receive d Time (Source) Location / / Volume Laterality Blood specimen 08/09/2020 7:30 AM 021 7:41 (specimen) PSYCHOLOGY DEPARTMENT CHAIR AM PSYCHOLOGY DEPARTMENT CHAIR Monica Deleon MD LAB - BLOOD BANK TEST ORDER Performing Organization Address [facility]/ZIP Code Phon e Number [address] [address] [facility] HCG qualitative urine (08/09/2020 7:00 AM PSYCHOLOGY DEPARTMENT CHAIR) Analysis Performed At Patho logist Time Signature HCG Qual Urine Negative NEG^Negati 08/09/2020 [facility] ve 7:23 AM [facility] Comment: This test is for screening purposes. ??R esults should be interpreted along with the clinical picture. ??Confirmation te sting is available if warranted by ordering [id number], HCG Quantitative Pregna ncy. Specimen Anatomical Collection Method Collection Time Receive d Time (Source) Location / / Volume Laterality Urine specimen URINE SPECIMEN 08/09/2020 7:00 AM 08/09 7:09 (specimen) OBTAINED BY CLEAN PSYCHOLOGY DEPARTMENT CHAIR AM PSYCHOLOGY DEPARTMENT CHAIR CATCH PROCEDURE / Unknown Catina Ha MD LAB - URINE ORDERABLES Performing Organization Address City/State/ZIP Code Phon e Number [facility] [address] [place] [address] [facility] LAB RESULT - HIM SCAN (07/25/2020 12:00 AM PSYCHOLOGY DEPARTMENT CHAIR) Specimen (Source) Anatomical Location Collection Method / Collectio n Time Received Time / Laterality Volume 07/25/2020 Narrative This result has an attachment that is no t available. 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 Scoliosis Scoliosis (and kyphoscoliosis), idiopath ic Painful orthopaedic hardware (H) Acute post-operative pain Other acute postoperative pain Chronic musculoskeletal pain Mylagia and myositis, unspecified Chronic pain syndrome Platelet disorder (H) Qualitative platelet defects Scoliosis Scoliosis (and kyphoscoliosis), idiopath ic Painful orthopaedic hardware (H) Acute post-operative pain Other acute postoperative pain Chronic musculoskeletal pain Mylagia and myositis, unspecified Chronic pain syndrome Platelet disorder (H) Qualitative platelet defects documented in this encounter Admitting Diagnoses Diagnosis Scoliosis Scoliosis (and kyphoscoliosis), idiopath ic Painful orthopaedic hardware (H) documented in this encounter Administered Medications Inactive Administered Medications - up to 3 most recent administrations Medication Order MAR Action Action Date Dose Rate Site acetaminophen (TYLENOL) tablet 650 Given 08/09/2020 8:57 PM PSYCHOLOGY DEPARTMENT CHAIR 650 mg mg 650 mg, Oral, EVERY 6 HOURS, First dose (after last modification) on Sat08/09/20 at 1430, Maximum acetaminophen dose from all sources = 75 mg/kg/day not to exceed 4 grams/day. Given 08/09/2020 3:16 PM PSYCHOLOGY DEPARTMENT CHAIR 650 mg acetaminophen (TYLENOL) tablet 650 mg Given 08/13/2020 11:15 AM PSYCHOLOGY DEPARTMENT CHAIR 650 mg 650 mg, Oral, EVERY 6 HOURS, First dose (after last reorder) on Sat08/10/20 at 0300, Maximum acetaminophen dose from all sources = 75 mg/kg/day not to exceed 4 grams/day. Given 08/13/2020 5:55 AM PSYCHOLOGY DEPARTMENT CHAIR 650 mg Given 08/13/2020 12:25 AM PSYCHOLOGY DEPARTMENT CHAIR 650 mg acetaminophen (TYLENOL) tablet 650 mg Given 08/16/2020 8:47 AM PSYCHOLOGY DEPARTMENT CHAIR 650 mg 650 mg, Oral, EVERY 6 HOURS RT, First dose on Sat08/15/20 at 1500, Maximum acetaminophen dose from all sources = 75 mg/kg/day not to exceed 4 grams/day. Given 08/16/2020 2:13 AM PSYCHOLOGY DEPARTMENT CHAIR 650 mg Given 08/15/2020 8:14 PM PSYCHOLOGY DEPARTMENT CHAIR 650 mg acetaminophen (TYLENOL) tablet 975 mg Given 08/09/2020 7:41 AM PSYCHOLOGY DEPARTMENT CHAIR 975 mg 975 mg, Oral, ONCE, On Sat08/09/20 at 0700, For 1 dose, Maximum acetaminophen dose from all sources = 75 mg/kg/day not to exceed 4 grams/day., Pre-procedure bisacodyl (DULCOLAX) Suppository 10 mg 10 mg, Rectal, DAILY PRN, constipation, Starting on Sat08/12/20 at 0719, Please give in afternoon if no stool in the morning on 08/12/20. Hol d for loose stools. calcium carbonate (TUMS) chewable tablet 500 Given 12/2020 8:57 PM PSYCHOLOGY DEPARTMENT CHAIR 500 mg mg 500 mg, Oral, DAILY, First dose on Sat08/09/20 at 1800 calcium carbonate (TUMS) chewable tablet 500 Given 07/2021 8:47 AM PSYCHOLOGY DEPARTMENT CHAIR 500 mg mg 500 mg, Oral, DAILY, First dose (after last reorder) on Sat08/10/20 at 0800 Given 08/15/2020 8:44 AM PSYCHOLOGY DEPARTMENT CHAIR 500 mg Given 08/14/2020 8:48 AM PSYCHOLOGY DEPARTMENT CHAIR 500 mg ceFAZolin (ANCEF) intermittent infusion Given 08/09/2020 5:1 8 PM PSYCHOLOGY DEPARTMENT CHAIR 2 g 200 mL/hr 2 g in 100 mL dextrose PRE-MIX STAT, 2 g, Intravenous, EVERY 8 HOURS, First dose (after last reorder) on Sat08/09/20 at 1800, For 2 doses, Give first dose within 1 hour PRIOR to incision. If patient weight is greater than or equal to 120 kg increase dose to 3 g., Indications: Perioperative Pharmacoprophylaxis, Pre-procedure ceFAZolin (ANCEF) intermittent infusion Given 08/10/2020 2:3 3 AM PSYCHOLOGY DEPARTMENT CHAIR 2 g 200 mL/hr 2 g in 100 mL dextrose PRE-MIX STAT, 2 g, Intravenous, EVERY 8 HOURS, First dose (after last reorder) on Sat08/10/20 at 0100, For 1 dose, Give first dose within 1 hour PRIOR to incision. If patient weight is greater than or equal to 120 kg increase dose to 3 g., Indications: Perioperative Pharmacoprophylaxis, Pre-procedure cholecalciferol (VITAMIN D3) 125 mcg (5000 Given 08/16/2020 8:47 AM PSYCHOLOGY DEPARTMENT CHAIR 125 mcg units) capsule 125 mcg 125 mcg, Oral, DAILY, First dose (after last reorder) on Sat08/10/20 at 0800, Note: 125 mcg = 5000 units Given 08/15/2020 8:44 AM PSYCHOLOGY DEPARTMENT CHAIR 125 mcg Given 08/14/2020 8:48 AM PSYCHOLOGY DEPARTMENT CHAIR 125 mcg diazepam (VALIUM) half-tab 2.5 mg Given 08/16/2020 10:08 AM PSYCHOLOGY DEPARTMENT CHAIR 2.5 mg 2.5 mg, Oral, EVERY 6 HOURS, First dose on Sat08/15/20 at 0930 Given 08/16/2020 4:12 AM PSYCHOLOGY DEPARTMENT CHAIR 2.5 mg Given 08/15/2020 9:03 PM PSYCHOLOGY DEPARTMENT CHAIR 2.5 mg diazepam (VALIUM) injection 2.5 mg Given 08/09/2020 7:52 PM PSYCHOLOGY DEPARTMENT CHAIR 2.5 mg 2.5 mg, Intravenous, Administer over 1-4 Minutes, EVERY 6 HOURS, First dose on Sat08/09/20 at 1400, This drug may cause significant respiratory depression. Monitor respiratory status and vital signs carefully for 1 hour after each dose. Given 08/09/2020 2:15 PM PSYCHOLOGY DEPARTMENT CHAIR 2.5 mg diazepam (VALIUM) injection 2.5 mg Given 08/15/2020 2:36 AM PSYCHOLOGY DEPARTMENT CHAIR 2.5 mg 2.5 mg, Intravenous, Administer over 1-4 Minutes, EVERY 6 HOURS, First dose (after last reorder) on Sat08/10/20 at 0200, This drug may cause significant respiratory depression. Monitor respiratory status and vital signs carefully for 1 hour after each dose. Given 08/14/2020 8:11 PM PSYCHOLOGY DEPARTMENT CHAIR 2.5 mg Given 08/14/2020 2:26 PM PSYCHOLOGY DEPARTMENT CHAIR 2.5 mg fentaNYL (PF) (SUBLIMAZE) injection 25 m cg Given 08/12/2020 9:29 AM PSYCHOLOGY DEPARTMENT CHAIR 25 mcg 25 mcg, Intravenous, ONCE, On Sat08/12/20 at 0930, For 1 dose, For ordered IV doses 1-100 mcg give IV Push undiluted over a minimum of 3-5 minutes. fentaNYL (PF) (SUBLIMAZE) injection 25 m cg Given 08/14/2020 5:15 PM PSYCHOLOGY DEPARTMENT CHAIR 25 mcg 25 mcg, Intravenous, EVERY 2 HOURS PRN, breakthrough pain, Starting on Sat08/14/20 at 1312, For ordered IV doses 1-100 mcg give IV Push undiluted over a minimum of 3-5 minutes. fentaNYL (SUBLIMAZE) ENROBER TENDER 50 mcg/mL OPIOID Shift Total 08/13/2020 8:02 PM PSYCHOLOGY DEPARTMENT CHAIR NAIVE Continuous Rate: 0 mcg/hr, ENROBER TENDER Dose: 20 mcg, ENROBER TENDER Lockout: 15 Minutes, One Hour Limit: 100 mcg, Clinician Bolus (one time dose): 25 mcg, Starting on Sat08/12/20 at 1130, Hold the dose for analgesic side effects. Notify the provider to assess for uncontrolled pain or analgesic side effects. Do NOT give any additional opioids while on ENROBER TENDER unless provider authorized., Intravenous Rate/Dose Verify 08/13/2020 7:36 AM PSYCHOLOGY DEPARTMENT CHAIR Shift Total 08/13/2020 6:54 AM PSYCHOLOGY DEPARTMENT CHAIR fentaNYL (SUBLIMAZE) ENROBER TENDER 50 mcg/mL Rate/Dose Verify 08/14/2020 7:16 A M PSYCHOLOGY DEPARTMENT CHAIR OPIOID NAIVE Continuous Rate: 0 mcg/hr, ENROBER TENDER Dose: 20 mcg, ENROBER TENDER Lockout: 60 Minutes, One Hour Limit: 25 mcg, Clinician Bolus (one time dose): 25 mcg, Starting on Sat08/13/20 at 1800, Hold the dose for analgesic side effects. Notify the provider to assess for uncontrolled pain or analgesic side effects. Do NOT give any additional opioids while on ENROBER TENDER unless provider authorized., Intravenous Rate/Dose Verify 08/14/2020 7:15 AM PSYCHOLOGY DEPARTMENT CHAIR Rate/Dose Verify 08/13/2020 11:18 PM PSYCHOLOGY DEPARTMENT CHAIR gabapentin (NEURONTIN) capsule 300 mg Given 08/09/2020 7:41 AM PSYCHOLOGY DEPARTMENT CHAIR 300 mg 300 mg, Oral, PRE-OP/PRE-PROCEDURE, Starting on Sat08/09/20 at 0650, For 1 dose, For pain with neuropathic features, Pre-procedure HYDROcodone-acetaminophen (NORCO) 5-325 MG Given 08/15 8:44 AM PSYCHOLOGY DEPARTMENT CHAIR 1 tablet per tablet 1 tablet 1 tablet, Oral, EVERY 4 HOURS PRN, moderate to severe pain, Starting on 08/13/20 at 1331, Maximum acetaminophen dose from all sources= 75 mg/kg/day not to exceed 4 grams Given 08/15/2020 4:24 AM PSYCHOLOGY DEPARTMENT CHAIR 1 tablet Given 08/15/2020 12:47 AM PSYCHOLOGY DEPARTMENT CHAIR 1 tablet HYDROmorphone (DILAUDID) ENROBER TENDER 0.2 New Syringe/Cartridge 08/11/2020 4:4 5 PM PSYCHOLOGY DEPARTMENT CHAIR mg/mL OPIOID TOLERANT Continuous Rate: 0.2 mg/hr, ENROBER TENDER Dose: 0.1 mg, ENROBER TENDER Lockout: 10 Minutes, One Hour Limit: 0.6 mg, Clinician Bolus (one time dose): 0 mg, Starting on Ariela 08/11/20 at 1230, Hold the dose for analgesic side effects. Notify the provider to assess for uncontrolled pain or analgesic side effects. Do NOT give any additional opioids while on ENROBER TENDER unless provider authorized., Intravenous hydrOXYzine (VISTARIL) injection PEDS/NICU 25 Given 3:26 PM PSYCHOLOGY DEPARTMENT CHAIR 25 mg mg 25 mg, Intravenous, Administer over 10 Minutes, EVERY 6 HOURS PRN, itching, Starting on Tu08/09/20 at 1351, MAXIMUM concentration by access type: 1 mg/mL for peripheral lines 25 mg/mL for central lines hydrOXYzine 25 mg in D5W injection PEDS/ NICU New Bag 08/12/2020 8:57 PM PSYCHOLOGY DEPARTMENT CHAIR 25 mg 25 mg, Intravenous, Administer over 60 Minutes, EVERY 6 HOURS PRN, itching, Starting on Sat08/10/20 at 0041, MAXIMUM concentration by access type: 1 mg/mL for peripheral lines 25 mg/mL for central lines ketamine (KETALAR) 2 Rate/Dose Verify 08/15/2020 8:00 AM PSYCHOLOGY DEPARTMENT CHAIR 3 mg/hr 1.5 mL/hr mg/mL in sodium chloride 0.9 % 50 mL ANALGESIA infusion (make in CADD cassette) 3 mg/hr (1.5 mL/hr), Intravenous, CONTINUOUS, Starting on Sat08/14/20 at 2030, Population for use? Analgesia New Syringe/Cartridge 08/14/2020 10:07 PM PSYCHOLOGY DEPARTMENT CHAIR 3 mg/hr 1.5 mL/h r ketamine (KETALAR) 25 Rate/Dose Verify 08/14/2020 7:12 PM PSYCHOLOGY DEPARTMENT CHAIR 3 mg/hr 0.1 mL/hr mg/mL in sodium chloride 0.9 % 50 mL HIGH CONCENTRATION infusion 3 mg/hr (0.12 mL/hr, rounded to 0.1 mL/hr), Intravenous, CONTINUOUS, Starting on Ariela 08/11/20 at 1130, For sedation indication range orders: start at lowest dose ordered and titrate by 25 mg/hr every 15 minutes to defined goal sedation score. , Population for use? Analgesia Rate/Dose Verify 08/14/2020 4:02 PM PSYCHOLOGY DEPARTMENT CHAIR 3 mg/hr 0.1 mL/hr Rate/Dose Verify 08/14/2020 8:00 AM PSYCHOLOGY DEPARTMENT CHAIR 3 mg/hr 0.1 mL/hr lactated ringers infusion New Bag 08/09/2020 5:03 PM PSYCHOLOGY DEPARTMENT CHAIR 90 mL/hr at 90 mL/hr, Intravenous, CONTINUOUS, Starting on Sat08/09/20 at 1400, Until Sat08/10/20 at 0015 New Bag 08/09/2020 2:04 PM PSYCHOLOGY DEPARTMENT CHAIR 90 mL/hr lactated ringers infusion Rate/Dose Change 08/10/2020 11:02 AM PSYCHOLOGY DEPARTMENT CHAIR 10 mL/hr at 0-3 mL/hr, Intravenous, CONTINUOUS, IV/PO titrate: goal 360mL Q4H, Starting on Sat08/10/20 at 0100, Until Ariela 08/11/20 at 1842 New Bag 08/10/2020 4:03 AM PSYCHOLOGY DEPARTMENT CHAIR 90 mL/hr Rate/Dose Verify 08/10/2020 2:20 AM PSYCHOLOGY DEPARTMENT CHAIR 90 mL/hr Lidocaine (LIDOCARE) Patch/Med Applied 08/14/2020 1:26 PM 1 patch Other (see 4 % Patch 1 patch PSYCHOLOGY DEPARTMENT CHAIR comments) 1 patch, Transdermal, EVERY 24 HOURS, Administer over 12 Hours, First dose on Sat08/14/20 at 1400, Apply one half of patch to each side of incision (please do not let patch actually touch incision or incision dressing). To prevent lidocaine toxicity, patient should be patch free for 12 hrs daily. Patches may be cut to smaller size prior to removing release liner. Reminder: Remove previous patch before applying new patch. NEVER APPLY HEAT OVER PATCH which increases absorption and may lead to local anesthetic toxicity. Do not apply over area where liposomal bupivacaine was injected for 96 hours post injection. Lidocaine (LIDOCARE) Patch/Med Applied 08/15/2020 3:21 PM 1 patch Other (see 4 % Patch 1 patch PSYCHOLOGY DEPARTMENT CHAIR comments) 1 patch, Transdermal, EVERY 24 HOURS, Administer over 12 Hours, First dose (after last reorder) on Sat08/15/20 at 1430, Apply one half of patch to each side of incision (please do not let patch actually touch incision or incision dressing). To prevent lidocaine toxicity, patient should be patch free for 12 hrs daily. Patches may be cut to smaller size prior to removing release liner. Reminder: Remove previous patch before applying new patch. NEVER APPLY HEAT OVER PATCH which increases absorption and may lead to local anesthetic toxicity. Do not apply over area where liposomal bupivacaine was injected for 96 hours post injection. lidocaine 1 % 0.2-0.4 mL Given 08/12/2020 12:56 PM PSYCHOLOGY DEPARTMENT CHAIR 0.2 mLs Left Arm 0.2-0.4 mL, Other, EVERY 1 HOUR PRN, pain with VAD insertion., Starting on Sat08/12/20 at 1228, Do NOT give if patient has a history of allergy to any local anesthetic or any korey product. MAX dose 1 mL subcutaneously OR intradermally in divided doses as needed for VAD insertion. Given 08/12/2020 12:55 PM PSYCHOLOGY DEPARTMENT CHAIR 0.2 mLs Righ t Arm lidocaine 1 % Starting on Sat08/12/20 at 1231, For 1 dose, [place]raz[place]: cabinet override lidocaine 2 gm in D5W 250 Rate/Dose Verify 08/09/2020 7:31 PM 1 mg/ kg/hr 6.8 mL/hr mL (ADULT STD) PSYCHOLOGY DEPARTMENT CHAIR 1 mg/kg/hr ? 54.7 kg (6.8375 mL/hr, rounded to 6.8 mL/hr), Intravenous, CONTINUOUS, Starting on Sat08/09/20 at 1400, For 42 hours, Initiate treatment at 1 mg/kg/hr, Intravenous. For patient with a BMI greater than 30 use [place] Body Weight (IBW). STOP infusion if patient develops any side effects and notify Provider. NOTE: It is important to recognize MILD side effects, so that SERIOUS side effects can be avoided. Side effects usually occur in a graded fashion, beginning with mild side effects. MILD: Numbness/unusual sensations in the extremities and/or around the mouth, a metallic taste in the mouth, ringing in the ears, lightheadedness or dizziness. MODERATE: Nausea, vomiting, severe dizziness, decreased hearing, tremor, hypotension, and bradycardia. SEVERE: Drowsiness, confusion, muscle twitching, convulsions, loss of consciousness, arrhythmias., Initial Set-up verified by: jazzmine kumar New Bag 08/09/2020 5:27 PM PSYCHOLOGY DEPARTMENT CHAIR 1 mg/kg/hr 6.8 mL/hr Rate/Dose Verify 08/09/2020 3:33 PM PSYCHOLOGY DEPARTMENT CHAIR 1 mg/kg/hr 6.8 mL/hr lidocaine 2 gm in D5W 250 Rate/Dose Verify 08/11/2020 7:37 AM 1 mg/ kg/hr 6.8 mL/hr mL (ADULT STD) PSYCHOLOGY DEPARTMENT CHAIR 1 mg/kg/hr ? 54.7 kg (6.8375 mL/hr, rounded to 6.8 mL/hr), Intravenous, CONTINUOUS, Starting on Sat08/10/20 at 2000, Initiate treatment at 1 mg/kg/hr, Intravenous. For patient with a BMI greater than 30 use [place] Body Weight (IBW). STOP infusion if patient develops any side effects and notify Provider. NOTE: It is important to recognize MILD side effects, so that SERIOUS side effects can be avoided. Side effects usually occur in a graded fashion, beginning with mild side effects. MILD: Numbness/unusual sensations in the extremities and/or around the mouth, a metallic taste in the mouth, ringing in the ears, lightheadedness or dizziness. MODERATE: Nausea, vomiting, severe dizziness, decreased hearing, tremor, hypotension, and bradycardia. SEVERE: Drowsiness, confusion, muscle twitching, convulsions, loss of consciousness, arrhythmias. New Bag 08/10/2020 8:37 PM PSYCHOLOGY DEPARTMENT CHAIR 1 mg/kg/hr 6.8 mL/hr lidocaine 400 mg in D5W Rate/Dose Verify 08/10/2020 7:20 PM 1 mg/kg /hr 6.8 mL/hr 50 mL (ADULT STD) - for PSYCHOLOGY DEPARTMENT CHAIR ANALGESIA 1 mg/kg/hr ? 54.7 kg (6.8375 mL/hr, rounded to 6.8 mL/hr), Intravenous, CONTINUOUS, Starting on Sat08/10/20 at 0130, Initiate treatment at 1 mg/kg/hr, Intravenous. For patient with a BMI greater than 30 use [place] Body Weight (IBW). STOP infusion if patient develops any side effects and notify Provider. NOTE: It is important to recognize MILD side effects, so that SERIOUS side effects can be avoided. Side effects usually occur in a graded fashion, beginning with mild side effects. MILD: Numbness/unusual sensations in the extremities and/or around the mouth, a metallic taste in the mouth, ringing in the ears, lightheadedness or dizziness. MODERATE: Nausea, vomiting, severe dizziness, decreased hearing, tremor, hypotension, and bradycardia. SEVERE: Drowsiness, confusion, muscle twitching, convulsions, loss of consciousness, arrhythmias. Rate/Dose Verify 08/10/2020 7:34 AM PSYCHOLOGY DEPARTMENT CHAIR 1 mg/kg/hr 6.8 mL/hr Rate/Dose Verify 08/10/2020 2:21 AM PSYCHOLOGY DEPARTMENT CHAIR 1 mg/kg/hr 6.8 mL/hr lidocaine patch in PLACE First dose on Sat08/14/20 at 1400, Chart every shift, confirming that patch is still in place on patient (no barcode scan needed). Se e patch order for dose information. NEVER APPLY HEAT OVER PATCH which will in crease absorption and may lead to risk of local anesthetic toxicit y. Do not apply over area where liposomal bupivacaine injected for 96 hours. magnesium hydroxide (MILK OF MAGNESIA) Given 08/12/2020 8:57 AM PSYCHOLOGY DEPARTMENT CHAIR 30 mLs suspension 30 mL 30 mL, Oral, ONCE, On Sat08/12/20 at 0830, For 1 dose, Shake well. Hold for loose stools. midazolam (VERSED) injection 2 mg Given 08/09/2020 8:04 AM PSYCHOLOGY DEPARTMENT CHAIR 2 mg 2 mg, Intravenous, Administer over 2 Minutes, ONCE, On Sat08/09/20 at 0830, For 1 dose, This drug may cause significant respiratory depression. Monitor respiratory status and vital signs carefully for 1 hour after each dose., Pre-procedure morphine (PF) injection 1 mg Given 08/09/2020 2:25 PM PSYCHOLOGY DEPARTMENT CHAIR 1 mg 1 mg, Intravenous, ONCE PRN, moderate to severe pain, Starting on Sat08/09/20 at 1352, For 1 dose, For ordered IV doses 0.1-15 mg give IV Push undiluted over 4-5 minutes. morphine (PF) injection 1 mg Given 08/09/2020 3:30 PM PSYCHOLOGY DEPARTMENT CHAIR 1 mg 1 mg, Intravenous, ONCE PRN, moderate to severe pain, Starting on Sat08/09/20 at 1549, For 1 dose, For ordered IV doses 0.1-15 mg give IV Push undiluted over 4-5 minutes. morphine 1 mg/ml bolus from infusion pump Given 08/11/2020 11:25 AM PSYCHOLOGY DEPARTMENT CHAIR 0.5 mg 0.5 mg 0.5 mg, Intravenous, EVERY 2 HOURS PRN, pain control or improvement in physical function. Hold dose for analgesic side effects., Starting on Sat08/10/20 at 1500, Notify the provider to assess for uncontrolled pain or analgesic side effects. Nurse to administer dose from existing infusion. If no infusion bag or syringe for this order is available, contact pharmacist to re-enter medication order. , Post-procedure Given 08/11/2020 8:19 AM PSYCHOLOGY DEPARTMENT CHAIR 0.5 mg Given 08/11/2020 5:56 AM PSYCHOLOGY DEPARTMENT CHAIR 0.5 mg morphine 1 mg/ml bolus from infusion pum p 1 mg Given 08/09/2020 10:45 PM PSYCHOLOGY DEPARTMENT CHAIR 1 mg 1 mg, Intravenous, EVERY 2 HOURS PRN, pain control or improvement in physical function. Hold dose for analgesic side effects., Starting on Sat08/09/20 at 1553, Notify the provider to assess for uncontrolled pain or analgesic side effects. Nurse to administer dose from existing infusion. If no infusion bag or syringe for this order is available, contact pharmacist to re-enter medication order. , Post-procedure Given 08/09/2020 8:48 PM PSYCHOLOGY DEPARTMENT CHAIR 1 mg Given 08/09/2020 5:17 PM PSYCHOLOGY DEPARTMENT CHAIR 1 mg morphine 1 mg/ml bolus from infusion pum p 1 mg Given 08/10/2020 2:52 PM PSYCHOLOGY DEPARTMENT CHAIR 1 mg 1 mg, Intravenous, EVERY 2 HOURS PRN, pain control or improvement in physical function. Hold dose for analgesic side effects., Starting on Sat08/10/20 at 0040, Notify the provider to assess for uncontrolled pain or analgesic side effects. Nurse to administer dose from existing infusion. If no infusion bag or syringe for this order is available, contact pharmacist to re-enter medication order. , Post-procedure Given 08/10/2020 9:12 AM PSYCHOLOGY DEPARTMENT CHAIR 1 mg Given 08/10/2020 2:46 AM PSYCHOLOGY DEPARTMENT CHAIR 1 mg morphine ENROBER TENDER 1 mg/mL PEDS OPIOID New Syringe/Cartridge 08/09/2020 3:1 0 PM PSYCHOLOGY DEPARTMENT CHAIR NAIVE Initial Set-up verified by: jazzmine kumar, Continuous Rate: 0 mg/hr, ENROBER TENDER Dose: 0.01 mg/kg (0.5 mg), ENROBER TENDER Lockout: 30 Minutes, One Hour Limit: 0.02 mg/kg (1.1 mg), Clinician Bolus (one time dose): 0.01 mg/kg (0.5 mg), Weight: 54.7 kg, Starting on Sat08/09/20 at 1430, Hold the dose for analgesic side effects. Notify the provider to assess for uncontrolled pain or analgesic side effects. Do NOT give any additional opioids while on ENROBER TENDER unless provider authorized., Intravenous Morphine Sulfate (PF) 1 Rate/Dose Verify 08/09/2020 7:31 PM 0.5 mg/hr 0.5 mL/hr mg/mL in sodium chloride PSYCHOLOGY DEPARTMENT CHAIR 0.9 % 30 mL PEDS infusion 0.5 mg/hr (0.5 mL/hr), Intravenous, CONTINUOUS, Starting on Sat08/09/20 at 1600, Post-procedure, Initial Set-up verified by: jazzmine kumar New Bag 08/09/2020 4:51 PM PSYCHOLOGY DEPARTMENT CHAIR 0.5 mg/hr 0.5 mL/hr Morphine Sulfate (PF) 1 Rate/Dose Verify 08/11/2020 7:37 AM 0.5 mg/hr 0.5 mL/hr mg/mL in sodium chloride PSYCHOLOGY DEPARTMENT CHAIR 0.9 % 30 mL PEDS infusion 0.5 mg/hr (0.5 mL/hr), Intravenous, CONTINUOUS, Starting on Sat08/10/20 at 0100, Post-procedure, Initial Set-up verified by: jazzmine kumar Rate/Dose Verify 08/10/2020 7:22 PM PSYCHOLOGY DEPARTMENT CHAIR 0.5 mg/hr 0.5 mL/hr Rate/Dose Verify 08/10/2020 7:34 AM PSYCHOLOGY DEPARTMENT CHAIR 0.5 mg/hr 0.5 mL/hr naloxone (NARCAN) injection 0.4 mg 0.4 mg, Intravenous, EVERY 2 MIN PRN, op ioid reversal, Use Full Reversal dose for apnea or imminent respiratory arrest alessia t is unexpected.?Partial Reversal for severe sedation, decrease in respiratory depth, quality, or rate., Starting on Sat08/10/20 at 0042, Full Reversal: Dose = 0.01 mg/kg (see Admin Amount on OCT), * Partial Reversal Dose: Patient LESS than 20 kg , LESS than 5 years = 0.01 mg. Patient GREATER than or EQUAL to 20 kg , GREATER than or EQUAL to 5 years = 0.04 mg. Give Undiluted. STOP opioid and noti fy provider. For ordered IV doses 0.1-2mg give IVP. Give each 0.4mg over 15 second s in emergency situations. For non-emergent situations further dilute in 9mL of NS to facilitate t itration of response. norethindrone-ethinyl estradiol Given 08/16/2020 8:48 AM PSYCHOLOGY DEPARTMENT CHAIR 1 t ablet (MICROGESTIN 08/24) 1-20 MG-MCG per tablet 1 tablet 1 tablet, Oral, DAILY, First dose on Sat08/10/20 at 0800 Given 08/15/2020 8:45 AM PSYCHOLOGY DEPARTMENT CHAIR 1 tablet Given 08/14/2020 8:49 AM PSYCHOLOGY DEPARTMENT CHAIR 1 tablet OLANZapine zydis (zyPREXA) ODT half-tab 2.5 Given 08/11/2020 1:43 PM PSYCHOLOGY DEPARTMENT CHAIR 2.5 mg mg 2.5 mg, Oral, ONCE, On Sat08/11/20 at 1230, For 1 dose, Combined IM and PO doses may significantly increase the risk of orthostatic hypotension at 30 mg per day or higher. With dry hands, peel back foil backing and gently remove tablet. Do not push oral disintegrating tablet through foil backing. Administer immediately on tongue and oral disintegrating tablet dissolves in seconds, then swallow with saliva. Liquid not required. OLANZapine zydis (zyPREXA) ODT half-tab 2.5 Given 08/05 10:05 PM PSYCHOLOGY DEPARTMENT CHAIR 2.5 mg mg 2.5 mg, Oral, AT BEDTIME, First dose on Sat08/11/20 at 2200, Combined IM and PO doses may significantly increase the risk of orthostatic hypotension at 30 mg per day or higher. With dry hands, peel back foil backing and gently remove tablet. Do not push oral disintegrating tablet through foil backing. Administer immediately on tongue and oral disintegrating tablet dissolves in seconds, then swallow with saliva. Liquid not required. Given 08/13/2020 9:51 PM PSYCHOLOGY DEPARTMENT CHAIR 2.5 mg Given 08/12/2020 10:11 PM PSYCHOLOGY DEPARTMENT CHAIR 2.5 mg ondansetron (ZOFRAN) injection 4 mg Given 08/09/2020 3:14 PM PSYCHOLOGY DEPARTMENT CHAIR 4 mg 4 mg, Intravenous, Administer over 5 Minutes, EVERY 6 HOURS PRN, nausea, vomiting, Starting on Sat08/09/20 at 1415, Irritant. For ordered IV doses 0.1-4 mg, give IV Push undiluted over 2-5 minutes. ondansetron (ZOFRAN) injection 4 mg Given 08/12/2020 5:43 AM PSYCHOLOGY DEPARTMENT CHAIR 4 mg 4 mg, Intravenous, Administer over 5 Minutes, EVERY 6 HOURS PRN, nausea, vomiting, Starting on Sat08/10/20 at 0040, Irritant. For ordered IV doses 0.1-4 mg, give IV Push undiluted over 2-5 minutes. Given 08/12/2020 12:42 AM PSYCHOLOGY DEPARTMENT CHAIR 4 mg Given 08/11/2020 6:10 PM PSYCHOLOGY DEPARTMENT CHAIR 4 mg oxyCODONE (ROXICODONE) tablet 5 mg Given 08/16/2020 1:12 PM PSYCHOLOGY DEPARTMENT CHAIR 5 mg 5 mg, Oral, EVERY 4 HOURS PRN, moderate to severe pain, Starting on Sat08/15/20 at 1143 Given 08/16/2020 9:15 AM PSYCHOLOGY DEPARTMENT CHAIR 5 mg Given 08/16/2020 5:21 AM PSYCHOLOGY DEPARTMENT CHAIR 5 mg oxyCODONE (ROXICODONE) tablet 5 mg Given 08/15/2020 9:03 PM PSYCHOLOGY DEPARTMENT CHAIR 5 mg 5 mg, Oral, ONCE, On Sat08/15/20 at 2100, For 1 dose polyethylene glycol (MIRALAX) Packet 17 g Given 08/14/2020 1:45 PM PSYCHOLOGY DEPARTMENT CHAIR 17 g 17 g, Oral, DAILY PRN, constipation, Starting on Sat08/10/20 at 1048, 1 Packet = 17 grams. Mix each gram with at least 1/2 ounce (15 mL) of water - 8 ounces for 17 g dose, 4 ounces for 8.5 g dose, 2 ounces for 4 g dose. Follow with the same volume of water. Hold for loose stools. polyethylene glycol (MIRALAX) Packet 17 g Given 08/11/2020 1:43 PM PSYCHOLOGY DEPARTMENT CHAIR 17 g 17 g, Oral, DAILY, First dose on Sat08/11/20 at 1330, 1 Packet = 17 grams. Mix each gram with at least 1/2 ounce (15 mL) of water - 8 ounces for 17 g dose, 4 ounces for 8.5 g dose, 2 ounces for 4 g dose. Follow with the same volume of water. Hold for loose stools. polyethylene glycol (MIRALAX) Packet 17 g Given 08/12/2020 8:46 AM PSYCHOLOGY DEPARTMENT CHAIR 17 g 17 g, Oral, 2 TIMES DAILY, First dose (after last modification) on Sat08/12/20 at 0800, 1 Packet = 17 grams. Mix each gram with at least 1/2 ounce (15 mL) of water - 8 ounces for 17 g dose, 4 ounces for 8.5 g dose, 2 ounces for 4 g dose. Follow with the same volume of water. Hold for loose stools. pregabalin (LYRICA) capsule 150 mg Given 08/16/2020 8:47 AM PSYCHOLOGY DEPARTMENT CHAIR 150 mg 150 mg, Oral, 2 TIMES DAILY, First dose (after last modification) on Sat08/15/20 at 2000 Given 08/15/2020 8:14 PM PSYCHOLOGY DEPARTMENT CHAIR 150 mg pregabalin (LYRICA) capsule 75 mg Given 08/15/2020 8:44 AM PSYCHOLOGY DEPARTMENT CHAIR 75 mg 75 mg, Oral, 2 TIMES DAILY, First dose on Sat08/11/20 at 1300 Given 08/14/2020 8:12 PM PSYCHOLOGY DEPARTMENT CHAIR 75 mg Given 08/14/2020 8:48 AM PSYCHOLOGY DEPARTMENT CHAIR 75 mg scopolamine (TRANSDERM) Patch/Med Applied 08/09/2020 7:42 AM 1 patch Behind Right 72 hr patch 1 patch PSYCHOLOGY DEPARTMENT CHAIR Ear 1 patch, Transdermal, ONCE, Administer over 24 Hours, On Sat08/09/20 at 0700, For 1 dose, Apply patch to skin, behind ear. Place in Pre-Op. Remove patch after 24 hours. Each 1.5 mg patch delivers 1 mg of scopolamine. Reminder: Remove previous patch before applying new patch., Pre-procedure scopolamine (TRANSDERM-SCOP) patch REMOV AL Given 08/11/2020 6:09 PM PSYCHOLOGY DEPARTMENT CHAIR On Sat08/11/20 at 1600, For 1 dose, Remove at 16:00 on POD 2. sennosides (SENOKOT) tablet 8.6 mg Given 08/14/2020 8:48 AM PSYCHOLOGY DEPARTMENT CHAIR 8.6 mg 8.6 mg, Oral, 2 TIMES DAILY, First dose on Sat08/10/20 at 1100, Hold for loose stools. Given 08/12/2020 8:46 AM PSYCHOLOGY DEPARTMENT CHAIR 8.6 mg Given 08/11/2020 9:03 PM PSYCHOLOGY DEPARTMENT CHAIR 8.6 mg sertraline (ZOLOFT) tablet 100 mg Given 08/16/2020 8:47 AM PSYCHOLOGY DEPARTMENT CHAIR 100 mg 100 mg, Oral, DAILY, First dose on Sat08/10/20 at 0800 Given 08/15/2020 8:44 AM PSYCHOLOGY DEPARTMENT CHAIR 100 mg Given 08/14/2020 8:48 AM PSYCHOLOGY DEPARTMENT CHAIR 100 mg sodium chloride 0.9 % with papaverine 6 mg New Bag 08/10/2020 7:23 PM PSYCHOLOGY DEPARTMENT CHAIR 3 mL/hr infusion 50 mL, at 1 mL/hr, INTRA-ARTERIAL, CONTINUOUS, Starting on Sat08/10/20 at 0100, Until Sat08/14/20 at 1313 New Bag 08/10/2020 2:40 AM PSYCHOLOGY DEPARTMENT CHAIR 1 mL/hr New Bag 08/10/2020 2:21 AM PSYCHOLOGY DEPARTMENT CHAIR 1 mL/hr sodium chloride 0.9% infusion New Bag 08/09/2020 2:03 PM PSYCHOLOGY DEPARTMENT CHAIR 3 mL/hr at 3 mL/hr, Intravenous, CONTINUOUS, Carrier/TKO fluid for Patient Controlled Analgesia (ENROBER TENDER) IF ordered. MUST use carrier/TKO fluid to deliver ENROBER TENDER infusion. IF ENROBER TENDER not ordered or discontinued may discontinue this order, Starting on Sat08/09/20 at 1400, Until Sat08/10/20 at 0015 sodium chloride 0.9% infusion New Bag 08/14/2020 12:23 AM PSYCHOLOGY DEPARTMENT CHAIR 10 mL/hr at 3 mL/hr, Intravenous, CONTINUOUS, Carrier and assembly line brazer infusion, Starting on Sat08/11/20 at 1800, Until Sat08/14/20 at 1313 New Bag 08/12/2020 1:20 PM PSYCHOLOGY DEPARTMENT CHAIR 3 mL/hr New Bag 08/12/2020 9:31 AM PSYCHOLOGY DEPARTMENT CHAIR 3 mL/hr sodium chloride 0.9% infusion Rate/Dose Change 08/14/2020 10:16 PM PSYCHOLOGY DEPARTMENT CHAIR 3 mL/hr at 3 mL/hr, Intravenous, CONTINUOUS, carrier, Starting on Sat08/11/20 at 2100, Until Sat08/16/20 at 1542 Rate/Dose Verify 08/14/2020 8:00 PM PSYCHOLOGY DEPARTMENT CHAIR 15 mL/hr Rate/Dose Verify 08/14/2020 3:00 PM PSYCHOLOGY DEPARTMENT CHAIR 15 mL/hr sodium chloride 0.9% Rate Change (Transfusion) 08/14/2020 12:00 PM 25 mL/hr infusion PSYCHOLOGY DEPARTMENT CHAIR at 0-100 mL/hr, Intravenous, CONTINUOUS, IV/PO titrate. Patient to get 400 mls of fluids every 4 hours, Starting on Ariela 08/11/20 at 2300, Until 08/14/20 at 1147 New Bag 08/14/2020 5:50 AM PSYCHOLOGY DEPARTMENT CHAIR 1,000 mLs 50 mL/hr Rate/Dose Change 08/13/2020 1:00 PM PSYCHOLOGY DEPARTMENT CHAIR 20 mL/hr tranexamic acid (CYKLOKAPRON) bolus 500 mg Given 08/09/2020 9:04 PM PSYCHOLOGY DEPARTMENT CHAIR 500 mg 500 mg, Intravenous, EVERY 6 HOURS, First dose on Sat08/09/20 at 1430, Each 1 gram to be infused over 10 minutes. Given 08/09/2020 3:43 PM PSYCHOLOGY DEPARTMENT CHAIR 500 mg tranexamic acid (CYKLOKAPRON) bolus 500 mg Given 08/10/2020 9:23 AM PSYCHOLOGY DEPARTMENT CHAIR 500 mg 500 mg, Intravenous, EVERY 6 HOURS, First dose (after last reorder) on Sat08/10/20 at 0300, Each 1 gram to be infused over 10 minutes. Given 08/10/2020 3:58 AM PSYCHOLOGY DEPARTMENT CHAIR 500 mg tranexamic acid (LYSTEDA) half-tab 975 m g Given 08/16/2020 10:08 AM PSYCHOLOGY DEPARTMENT CHAIR 975 mg 975 mg, Oral, EVERY 6 HOURS, First dose on Sat08/10/20 at 1600 Given 08/16/2020 4:12 AM PSYCHOLOGY DEPARTMENT CHAIR 975 mg Given 08/15/2020 11:39 PM PSYCHOLOGY DEPARTMENT CHAIR 975 mg documented in this encounter Active and Recently Administered Medications Times are shown in PSYCHOLOGY DEPARTMENT CHAIR. Scheduled Medication Order 08/14/2020 08/15/2020 08/16/2020 acetaminophen (TYLENOL) tablet 650 mg 15 08 (Given - Provider: Tess Gutierrez, RUTH)2014 (Given - Provider: Romana Fernandez RN) 0213 (Given - Provider: Tiff Collins RN)0847 (Given - Provider: Tess Gutierrez RN)1400 (Canceled Entry - Provider: Orders Generic Provider - Comment: Automatically canceled at discontinue of medication order) 650 mg, Oral, EVERY 6 HOURS, First dose on Sat08/15/20 at 1500, Maximum acetaminophen dose from all sources = 75 mg/kg/day not to exceed 4 grams/day. calcium carbonate (TUMS) chewable tablet 500 mg 0848 ( Given - Provider: Tonya Hull RN) 0844 (Given - Provider: Tess Gutierrez, RUTH) 0847 (Given - Provider: Tess Gutierrez, RN) 500 mg, Oral, DAILY, First dose (after last reorder) on Sat at 0800 cholecalciferol (VITAMIN D3) 125 mcg (5000 units) caps ule 125 mcg 0848 (Given - Provider: Tonya Hull RN) 0844 (Given - Provider: Tess Gutierrez RN) 0847 (Given - Provider: Tess Gutierrez, RN) 125 mcg, Oral, DAILY, First dose (after last reorder) on Sat08/10/20 at 0800, Note: 125 mcg = 5000 units diazepam (VALIUM) half-tab 2.5 mg 0957 ( Given - Provider: Tess Gutierrez RN)1545 (Given - Provider: Marylu Morales RN)2103 (Given - Provider: Henna Murray, RUTH) 0412 (Given - Provider: Tiff Collins , RUTH)1008 (Given - Provider: Tess Gutierrez, RUTH) 2.5 mg, Oral, EVERY 6 HOURS, First dose on Sat08/15/20 at 0930 diazepam (VALIUM) injection 2.5 mg (CANCELED) 0207 (Gi abiola - Provider: David Ayala, RUTH)0848 (Given - Provider: Tonya Hull RN)1426 (Given - Provider: Tonya Hull RN)2010 (Given - Provider: Berlin Downs, RUTH) 0236 (Given - Provider: [place] Downs, RUTH)0839 (Not Given - Provider: Tess Gutierrez RN - Reason: Other - Comment: changed to oral) 2.5 mg, Intravenous, Administer over 1-4 Minutes, EVERY 6 HOURS, First dose (after last reorder) on Sat08/10/20 at 0200, This drug may cause significant respiratory depression. Monitor respiratory status and vital signs carefully for 1 hour after each dose. Lidocaine (LIDOCARE) 4 % Patch 1 patch (CANCELED) 1326 (Patch/Med Applied - Provider: Shannan Sevilla RN - Comment: lower back bilaterally) 0100 (Patch/Med Removed - Provider: Berlin Downs RN)1400 (Canceled Entry - Provider: Robert Ying [facility] - Comment: Automatically canceled at discontinue of medication order) 1 patch, Transdermal, EVERY 24 HOURS, Ad specialty sales consultant over 12 Hours, First dose on Sat08/14/20 at 1400, Apply one half of patch to each side of incision (please do not let patch actually touch incision or in cision dressing). To prevent lidocaine t oxicity, patient should be patch free for 12 hrs daily. Patches may be cut to smaller size prior to removing release liner. Reminder: Remove previous patch before applying new patch. NEVER APPLY HEAT OV ER PATCH which increases absorption and may lead to local anesthetic toxicity. Do not apply over area where liposomal bupivacaine was injected for 96 hours post injection. Lidocaine (LIDOCARE) 4 % Patch 1 patch 1 521 (Patch/Med Applied - Provider: Tess Gutierrez RN - Comment: bilateral lower back, R upper back) 0417 (Patch/Med Removed - Provider: Tiff Collins RN)1430 (Canceled Entry - Provider: Clair Generic Provider - Comment: Automatically canceled at discontinue of medication order) 1 patch, Transdermal, EVERY 24 HOURS, Ad specialty sales consultant over 12 Hours, First dose (after last reorder) on Sat08/15/20 at 1430, Apply one half of patch to each side of incision (please do not let patch actually touch incision or incision dressing). T o prevent lidocaine toxicity, patient should be patch free for 12 hrs daily. Patches may be cut to smaller size prior to removing release liner. Reminder: Remove previous patch before applying new patch . NEVER APPLY HEAT OVER PATCH which increases absorption and may lead to local anesthetic toxicity. Do not apply over area where liposomal bupivacaine was injected for 96 hours post injection. lidocaine patch in PLACE 1329 (Patch in Place - Provi diony: Shannan Sevilla RN)2146 (Patch in Place - Provider: Berlin Downs RN) 0556 (Patch Free Period - Provider: [place] Downs RN)1428 (Patch Free Period - Provider: Tess Gutierrez RN)2339 (Patch in Place - Provider: Henna Murray RN) 0608 (Patch Free Period - Provider: Tiff Collins, RUTH)1400 (Canceled Entry - Provider: Orders Generic Provider - Comment: Automatically canceled at discontinue of medication order) First dose on Sat08/14/20 at 1400, Chart every shift, confirming that patch is still in place on patient (no barcode scan needed). See patch order for dose information. NEVER APPLY HEAT OVER PATCH which will increase absorption and may lead t o risk of local anesthetic toxicity. Do not apply over area where liposomal bupivacaine injected for 96 hours. norethindrone-ethinyl estradiol (MICROGE STIN 08/24) 1-20 MG-MCG per tablet 1 tablet 0849 (Given - Provider: Tonya Hull RN) 0845 (Giv en - Provider: Tess Gutierrez, RN) 0848 (Given - Provider: Tess Gutierrez, RUTH ) 1 tablet, Oral, DAILY, First dose on Sat08/10/20 at 0800 OLANZapine zydis (zyPREXA) ODT half-tab 2.5 mg (CANCEL ED) 2204 (Given - Provider: Berlin Downs, RUTH) 2.5 mg, Oral, AT BEDTIME, First dose on Ariela 08/11/20 at 2200, Combined IM and PO doses may significantly increase the risk of orthostatic hypotension at 30 mg per day or higher. With dry hands, peel back foil backing and gently remove tablet. D o not push oral disintegrating tablet through foil backing. Administer immediately on tongue and oral disintegrating tablet dissolves in seconds, then swallow with saliva. Liquid not required. oxyCODONE (ROXICODONE) tablet 5 mg (COMPLETED) 2102 (Given - Provider: Henna Murray, RTUH) 5 mg, Oral, ONCE, On Sat08/15/20 at 2100, For 1 dose polyethylene glycol (MIRALAX) Packet 17 g 0849 (Not Gi abiola - Provider: Tonya Hull RN - Reason: Patient/family refused)2012 (Not Given - Provider: Berlin Downs, RUTH - Reason: Patient/family refused) 0832 (Not Given - Provider: Tess Gutierrez RN - Reason: Other - Comment: having loose stools)2015 (Not Given - Provider: Romana Fernandez RN - Reason: Contraindicated) 0851 (Not Given - Provider: Tess Gutierrez RN - Reason: Patient/family refused) 17 g, Oral, 2 TIMES DAILY, First dose (a fter last modification) on Sat08/12/20 at 0800, 1 Packet = 17 grams. Mix each gram with at least 1/2 ounce (15 mL) of water - 8 ounces for 17 g dose, 4 ounces for 8.5 g dose, 2 ounces for 4 g dose. Follo w with the same volume of water. Hold for loose stools. pregabalin (LYRICA) capsule 150 mg 2013 (Given - Provider: Romana Fernandez RN) 0847 (Given - Provider: Tess Gutierrez RN ) 150 mg, Oral, 2 TIMES DAILY, First dose (after last modification) on Sat08/15/20 at 2000 pregabalin (LYRICA) capsule 75 mg (CANCELED) 0848 (Giv en - Provider: Tonya Hull RN)2011 (Given - Provider: Berlin Downs RN) 0844 (Given - Provider: Tess Gutierrez RN) 75 mg, Oral, 2 TIMES DAILY, First dose on Sat08/11/20 at 1300 sennosides (SENOKOT) tablet 8.6 mg 0848 (Given - Provi diony: Tonya Hull RN)0851 (Not Given - Provider: Tonya Hull RN - Reason: Patient/family refused)2012 (Not Given - Provider: Berlin Downs RN - Reason: Patient/family refused) 0832 (Not Given - Provider: Tess Gutierrez RN - Reason: Other - Comment: having loose stools)2015 (Not Given - Provider: Romana Fernandez RN - Reason: Contraindicated) 0851 (Not Given - Provider: Tess Gutierrez RN - Reason: Patient/family refused) 8.6 mg, Oral, 2 TIMES DAILY, First dose on Sat08/10/20 at 1100, Hold for loose stools. sertraline (ZOLOFT) tablet 100 mg 0848 (Given - Provider: Drew Hull RN) 0844 (Given - Provider: Tess Gutierrez RN) 0847 (Given - Provider: Tess Gutierrez RN) 100 mg, Oral, DAILY, First dose on Sat08/10/20 at 0800 tranexamic acid (LYSTEDA) half-tab 975 mg 0411 (Given - Provider: David Ayala RN)1009 (Given - Provider: Tonya Hull RN)1608 (Given - Provider: Tiff Gonzales, RUTH)2205 (Given - Provider: Berlin Downs RN) 0424 (Given - Provider: [place] Downs RN)1005 (Given - Provider: Tess Gutierrez RN)1749 (Given - Provider: Henna Murray, RUTH)2339 (Given - Provider: Henna Murray, RN) 0412 (Given - Provider: Tiff Collins , RUTH)1008 (Given - Provider: Tess Gutierrez RN) 975 mg, Oral, EVERY 6 HOURS, First dose on Sat08/10/20 at 1600 Continuous Medication Order 08/14/2020 08/15/2020 08/16/2020 fentaNYL (SUBLIMAZE) ENROBER TENDER 50 mcg/mL OPIOID NAIVE (CANCE LED) 0715 (Rate/Dose Verify - Provider: David Ayala RN)0716 (Rate/Dose Verify - Provider: David Ayala RN - Comment: double-checked with Tonya Villagomez RN)1200 (Stopped - Provider: Tonya Hull RN) Continuous Rate: 0 mcg/hr, ENROBER TENDER Dose: 20 mcg, ENROBER TENDER Lockout: 60 Minutes, One Hour Limit: 25 mcg, Clinician Bolus (one time dose): 25 mcg, Starting on 08/13/20 at 1800, Hold the dose for analgesic side ef fects. Notify the provider to assess for uncontrolled pain or analgesic side effects. Do NOT give any additional opioids while on ENROBER TENDER unless provider authorized., Intravenous ketamine (KETALAR) 2 mg/mL in sodium chl oride 0.9 % 50 mL ANALGESIA infusion (make in CADD cassette) (CANCELED) 2206 (New Syringe/Cartridge - Provider: Berlin Downs RN - Comment: verified with Yolanda Dooley RN) 0800 (Rate/Dose Verify - Provider: Tess Gutierrez RN)1205 (Stopped - Provider: Tess Gutierrez RN - Comment: wasted 31 ml - verified with RUTH Henao) 3 mg/hr (1.5 mL/hr), at 1.5 mL/hr, Intra venous, CONTINUOUS, Starting on Sat08/14/20 at 2030, Population for use? Analgesia ketamine (KETALAR) 25 mg/mL in sodium ch loride 0.9 % 50 mL HIGH CONCENTRATION infusion (CANCELED) 0718 (Rate/Dose Verify - Provider: Alexsander Ayala RN - Comment: double-checked with Tonya Villagomez RN)0800 (Rate/Dose Verify - Provider: Tonya Hull RN)1602 (Rate/Dose Verify - Provider: Tiff Gonzales RN - Comment: verified with Sherrie Morgan RN) 3 mg/hr (0.12 mL/hr, rounded to 0.1 mL/h r), at 0.1 mL/hr, Intravenous, CONTINUOUS, Starting on Ariela 08/11/20 at 1130, For sedation indication range orders: start at lowest dose ordered and titrate by 25 mg 1912 (Rate/Dose Verify - Provider: Tiff Gonzales RN - Comment: verified with Berlin Downs RN)2207 (Stopped - Provider: [place] Downs RN) /hr every 15 minutes to defined goal sed ation score. , Population for use? Analgesia sodium chloride 0.9% infusion (CANCELED) 0023 (New Bag - Provider: David Ayala RN - Comment: see IV/PO titrate order) at 3 mL/hr, Intravenous, CONTINUOUS, Car rier and assembly line brazer infusion, Starting on Ariela 08/11/20 at 1800, Until Sat08/14/20 at 1313 sodium chloride 0.9% infusion 1500 (Rate/Dose Verify - Provider: Tiff Gonzales RN - Comment: rate for ketamine and PIV not hurting)2000 (Rate/Dose Verify - Provider: Berlin Downs, RUTH - Comment: running at 15/hr upon arrival) 1205 (Stopped - Provider: Tess Gutierrez RN) at 3 mL/hr, Intravenous, CONTINUOUS, car rier, Starting on Ariela 08/11/20 at 2100, Until Sat08/16/20 at 1542 2216 (Rate/Dose Change - Provider: Berlin Downs RN) sodium chloride 0.9% infusion (CANCELED) 0550 (New Bag - Provider: David Ayala, RUTH)1200 (Rate Change (Transfusion) - Provider: Tonya Hull, RN) at 0-100 mL/hr, Intravenous, CONTINUOUS, IV/PO titrate. Patient to get 400 mls of fluids every 4 hours, Starting on Ariela 08/11/20 at 2300, Until 08/14/20 at 1147 PRN Medication Order 08/14/2020 08/15/2020 08/16/2020 bisacodyl (DULCOLAX) Suppository 10 mg 10 mg, Rectal, DAILY PRN, constipation, Starting on 08/12/20 at 0719, Please give in afternoon if no stool in the morning on 08/12/20. Hold for loose stools. fentaNYL (PF) (SUBLIMAZE) injection 25 mcg (CANCELED) 1715 (Given - Provider: Tiff Gonzales RN - Comment: verified with Sherrie Morgan RN) 25 mcg, Intravenous, EVERY 2 HOURS PRN, breakthrough pain, Starting on 08/14/20 at 1312, For ordered IV doses 1-100 mcg give IV Push undiluted over a minimum of 3-5 minutes. HYDROcodone-acetaminophen (NORCO) 5-325 MG per tablet 1 tablet (CANCELED) 0022 (Given - Provider: David Ayala RN)0411 (Given - Provider: David Ayala RN)1009 (Given - Provider: Tonya Hull, RUTH)1608 (Given - Provider: Tiff Gonzales, RUTH)2011 (Given - Provider: Berlin Downs RN) 0047 (Given - Provider: Berlin Downs RN)0424 (Given - Provider: Berlin Downs, RUTH)0844 (Given - Provider: Tess Gutierrez RN) 1 tablet, Oral, EVERY 4 HOURS PRN, moder ate to severe pain, Starting on 08/13/20 at 1331, Maximum acetaminophen dose from all sources= 75 mg/kg/day not to exceed 4 grams lidocaine (LMX4) cream Topical, EVERY 1 HOUR PRN, pain, procedu ral related to poke., Starting 08/09/20 at 1344, Do NOT give if patient has a history of allergy to any local anesthetic or any korey product. Apply to area 3 0 minutes prior to poke. MAX dose per pa tient weight: LESS than 5 kg = 1 g 5-10 kg = 2 g GREATER than 10 kg = 2.5 g (1/2 of 5 g tube) Do not repeat application/dose to same part of body within 2 hours. lidocaine 1 % 0.2-0.4 mL 0.2-0.4 mL, Other, EVERY 1 HOUR PRN, elmer n with VAD insertion., Starting on Sat08/12/20 at 1228, Do NOT give if patient has a history of allergy to any local anesthetic or any korey product. MAX dose 1 mL subcutaneously OR intradermally in di vided doses as needed for VAD insertion. naloxone (NARCAN) injection 0.4 mg 0.4 mg, Intravenous, EVERY 2 MIN PRN, op ioid reversal, Use Full Reversal dose for apnea or imminent respiratory arrest that is unexpected.?Partial Reversal for severe sedation, decrease in respirator y depth, quality, or rate., Starting on Sat08/10/20 at 0042, Full Reversal: Dose = 0.01 mg/kg (see Admin Amount on OCT), * Partial Reversal Dose: Patient LESS than 20 kg , LESS than 5 years = 0.01 mg. Pa tient GREATER than or EQUAL to 20 kg , G REATER than or EQUAL to 5 years = 0.04 mg. Give Undiluted. STOP opioid and notify provider. For ordered IV doses 0.1- 2mg give IVP. Give each 0.4mg over 15 seconds in emergency situations. For non-emerge nt situations further dilute in 9mL of NS to facilitate titration of response. ondansetron (ZOFRAN) injection 4 mg 4 mg, Intravenous, Administer over 5 Min utes, EVERY 6 HOURS PRN, nausea, vomiting, Starting on Sat08/10/20 at 0040, Irritant. For ordered IV doses 0.1-4 mg, give IV Push undiluted over 2-5 minutes. oxyCODONE (ROXICODONE) tablet 5 mg 1204 (Given - Provider: Tess uGtierrez RN)1618 (Given - Provider: Henna Murray RN)2017 (Given - Provider: Romana Fernandez RN) 0106 (Given - Provider: Tiff Collins RN)0521 (Given - Provider: Tiff Collins RN)0915 (Given - Provider: Tess Gutierrez, RN)1312 (Given - Provider: Tess Gutierrez, RN) 5 mg, Oral, EVERY 4 HOURS PRN, moderate to severe pain, Starting on 08/15/20 at 1143 polyethylene glycol (MIRALAX) Packet 17 g 1345 (Given - Provider: Tonya Hull, RN) 17 g, Oral, DAILY PRN, constipation, Sta rting on Sat08/10/20 at 1048, 1 Packet = 17 grams. Mix each gram with at least 1/2 ounce (15 mL) of water - 8 ounces for 17 g dose, 4 ounces for 8.5 g dose, 2 ounc es for 4 g dose. Follow with the same volume of water. Hold for loose stools. documented in this encounter Care Teams Alfalfa Dehydrator Operator Relationship Specialty Start Date End Date Josh Carrero PCP - General Family Medicine 08/09/[address] [address] Catina Ha MD MD Orthopedics 03/08/[address] [place] [address] Mariposa Atwood Assigned PCP 04/29/20 11/12/20 MD Nettie [address] [place], [place] [id number] Catina Ha MD Assigned Musculoskeletal 05/27/[address] Provider [place], [place] [id number] Eugenio Finney Assigned Pediatric 06/19/2005/07 MD David Specialist Provider [address] [facility] [address] [place], [place] [address] documented as of this encounter
--- OUTSIDE RECORDS SUMMARY | 2022-06-18 12:00 | XMS_ITS | Encounter Summary ---
:2000 Author Organization [facility] Address [address] [place] [address]. [place] [address] Care Team Providers Name Role Phone Clinic, [facility] Primary Care Provide r Julian Spencer MD Unavailable Mariposa Atwood MD Unavailable [phone] Julian Spencer MD Unavailable Eugenio Finney MD Unavailable [phone] Encounter Details Date Type Department Care Team Description 08/08/2020 Medical Correspondence [facility] Luiz Atwood Pediatric MD [facility] [address] [place] [id number] [address] [place] [address] Social History Tobacco Use Types Packs/Day Years Used Date Smoking Tobacco: Never Smokeless Tobacco: Never Alcohol Use Standard Drinks/Week Comments Not Currently 0 (1 standard drink = 0.6 oz pure alcoho l) Sex Assigned at Date Recorded Female 12/02/2020 1:42 PM CDT COVID-19 Exposure Response Date Recorded In the last month, have you been in contact Unable to assess 08/07/2020 3:11 PM VP DELIVERY with someone who was confirmed or suspected to have Coronavirus / COVID-19? documented as of this encounter Progress Notes Mariposa Atwood MD - 08/08/2020 7:10 AM CST Pediatric Hematology Follow-Up and Summary Dakota is a 20 year old female with a complicated medical history with respect to her orthopedic problems complicated by challenging hemostasis issues. We have obtained over 400 pages of medical records and lab results from multiple providers, including [place], [facility], [place], [facility], [facility]. Multiple providers have had communication with respect to her course. (Detailed description follows short summary) In summary, Dakota does not have Type 2A von Willebrand's Disease genotyping per Kam's testing which her aunt has been diagnosed as having nor does she fit a diagnosis of Type 1 von Willebrand's Disease. She has mild platelet dysfunction documented at [place] and at the [facility] without abnormal morphology or electron microscopy. She does fit the description of [place] platelet disorder, including having a maternal grandfather of [place] ancestry who had a bleeding history according to Dakota'smother, BUT the fibrinolytic gene profile performed at [facility] did NOT reveal the known [place] platelet disorder gene changes; large abnormal exons will not be identified by this testing. Dakota has been successfully managed previously with pre-operative, intra- operative and post-operative anti-fibriolytics, which would be usual management for multiple ill-defined bleeding disorders, including a mild vWD of some sort OR [place] platelet disorder OR mild platelet dysfunction OR hyperfibrinolytic disorder OR collagen disorder. Dr. Spencer's note outlines our plan to use high-dose TXA load and infusion through her case, including serial TEG monitoring and having platelets on stand- by. Expected blood loss is ~ 100-150 ml and theprocedure should take < 2 hours. Care will be taken to provide a balanced transfusion replacementif needed, as I suspect her large blood loss at [place] in January 2016, could have been partially exacerbated by a dilutional coagulopathy. Dr. Cruz, Pediatric Hematology, will be present in the OR with Dr. Spencer's team. Dakota will be monitored in the PICU post-op with serial TEG, CBC/D/Plt # and INR/PTT/fib every 4-6 hours overnight depending on her course. She will receive TXA IV overnight and tra nsition to oral TXA when able and will continue for 7 days after discharge. Detailed description of procedures/management/evaluation: 12/18- tethered cord surgery, no issues 01/18 Admitted for T3 to L4 decortication (Taking Loestrin) ~ 1.5 L blood loss close to end of case INR 1.6 and fibrinogen low Blood loss improved with multiple units of RBCs and some FFP ? Amount) 2015 Consult per [facility] Ch Dad with nosebleeds, but no surgeries (orphaned so no other history) Mom with heavy periods, no bruising, no issues with surgery Maternal Aunt with Type IIa vWD from [facility] records Studies not consistent with vWD, no specific recs in records 07/16/16 Pre-op H & P (vW Act 68, Agn 67, Factor 8 50 NPT on OCPs, PTT 36) 08/02/16 Admit day of procedure (cross link removal), no meds provided 08/03/16 Discharge 08/08/17 Admit day of procedure to remove hardware, hemostasis with local epi (on Loestrin) (mom recalls IV dose 13 but no records) 08/08/17 Discharged day of procedure without antifibrinolytics noted on discharge summary 02/26/19 Ortho note says Eloisa outlined thoughts, recommended Amicar or Lysteda pre-op IV just before surgery, can be continued post-op until good hemostasis with Lysteda up to 5 days post-op 03/03/19 Admit day of procedure for bone grafting TXA per protocol in OR note mentioned secondary to Heme w/u not identifying risk TXA 1550 mg in IV syringe once noted in palliative care note EBL ~ 275 ml, no products given 03/08/19 NO antifibrinolytics listed on discharge summary 09/16/19 Admitted to [place] for work-up and to follow prior recs Workup not diagnostic; physician mentioned wanting to do more Studies NOT consistent with vWD, platelet EM normal, platelet aggregations sl abnormal Amicar 2 gm bolus IV given at 1900 pre-op 09/17/19 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 Platelet aggs normal except for second mild epi wave Genotyping for vWD negative for Type 2s at [facility] Plasminogen and JONNY-1 normal vWD studies normal and concordant between [facility] and [facility] Coag factors all normal TEG normal History obtained about MGF being [place] and having bleeding issues (bled with cuts, bruising) Second panel of platelet aggs abnormal because of taking Aleeve Fibrinolysis panel send to [facility] did NOT identify defect specifically associated with [place] platelet disorder but large exon defects would not be identified Mariposa Atwood MD, MS DELIVERY documented in this encounter Plan of Treatment Not on filedocumented as of this encounter Visit Diagnoses Not on filedocumented in this encounter Care Teams Ecommerce Manager Relationship Specialty Start Date End Date Clinic, [facility] PCP - General 10/15/17 08/08/[address] [address] Julian Spencer MD MD Orthopedics 03/08/[address] [place], [place] [phone] Mariposa Atwood, Assigned PCP 04/29/2005/[address] [place] [address] [place], [place] [address] Julian Spencer MD Assigned Musculoskeletal 05/27/[address] Provider [place], [place] [phone] Eugenio Finney, Assigned Pediatric 06/19/20 06/03/21 Specialist Provider [address] [address] [facility] [address] [place], [place] [id number] documented as of this encounter
--- OUTSIDE RECORDS SUMMARY | 2022-06-18 12:00 | XMS_ITS | Encounter Summary ---
:2001 Author Organization [place] Address [address] [facility] [address] Care Team Providers Name Role Phone Catina Ha MD Unavailable Mariposa Atwood MD Unavailable [phone] Catina Ha MD Unavailable Eugenio Finney MD Unavailable [phone] Josh Carrero Primary Care Provider Reason for Visit Auth/Cert Specialty Diagnoses / Procedures Referred By Contact Refer red To Contact Surgery Diagnoses Scoliosis Painful orthopaedic hardware (H) Scoliosis [M41.9] Painful orthopaedic hardware (H) [T84.84XA] Ur Periop Procedures ZZC EXPLORATION OF SPINAL FUSION ZZC REMOVE SPINE FIX DEV,NEW ZZC REMOVE SPINE FIX DEV,POST SGMTAL ZZC REMOVE SPINE FIX DEV,ANTERIOR Removal of Segmental Instrumentation Thoracic 3 - Lumbar 4 [address] [place] [address] Phone: Fax: Referral ID Status Reason Start Date Expiration Date Visits Requ ested Visits Authorized [id number] 1 1 Encounter Details Date Type Department Care Team Description 08/09/2020 [facility] Catina Ha al tracking system PeriOp Services MD Darell fusion spine posterior [address] [facility] [address] thoracic child three+ [place] [address] [facility] [phone] [id number] Surgery Details Date/Time Status Location OR Service Patient Case Case Traum a Class Class Type Case? 08/09/20 8:30 Posted UR OR UR OR Orthopedics Surgery AM 17 Admit Panel 1 Procedure LRB Anes Op Region Wound Class Commen ts Reinsert Segmental Instrumentation N/A General Spine I -Clean Thoracic 4 - Lumbar 4, pseudarthrosis repair four sites, image guided surgery, Scar Revision, Skin Biopsy Optical tracking system fusion spine Spine I-Clean posterior thoracic child three+ levels Surgeon Surgeon Role Service Panel Catina Ha MD Primary Orthopedics 1 Azar Cruz MD Assisting Oncology 1 Victor Hugo Talbot MD Assisting 1 Special Needs Type & Cross 2 units. [place] Platelet D isorder. See Dr Atwood's plan in note on 08/08.Anxious about surgery. Requests clarissa tive in pre-op. PONV-requests Scopalamine patch. PICU documented in this encounter Social History Tobacco Use Types Packs/Day Years Used Date Smoking Tobacco: Never Smokeless Tobacco: Never Alcohol Use Standard Drinks/Week Comments Not Currently 0 (1 standard drink = 0.6 oz pure alcoho l) Sex Assigned at Date Recorded Female 12/02/2020 1:42 PM CDT COVID-19 Exposure Response Date Recorded In the last month, have you been in contact with No / Unsure 08/09/2020 6:36 AM PHOTOGRAPHY COORDINATOR someone who was confirmed or suspected to have Coronavirus / COVID-19? documented as of this encounter Last Filed Vital Signs Vital Sign Reading Time Taken Comments Blood Pressure 121/73 08/09/2020 6:50 AM PHOTOGRAPHY COORDINATOR Pulse 80 08/09/2020 6:50 AM PHOTOGRAPHY COORDINATOR Temperature 37.2 ??C (99 ??F) 08/09/2020 6:50 AM PHOTOGRAPHY COORDINATOR Respiratory Rate 16 08/09/2020 6:50 AM PHOTOGRAPHY COORDINATOR Oxygen Saturation 98% 08/09/2020 6:50 AM PHOTOGRAPHY COORDINATOR Inhaled Oxygen Concentration - - Weight 54.7 kg (120 lb 9.5 oz) 08/09/2020 6:50 AM PHOTOGRAPHY COORDINATOR Height 160 cm (5' 3) 08/09/2020 6:50 AM PHOTOGRAPHY COORDINATOR Body Mass Index 21.36 08/09/2020 6:50 AM PHOTOGRAPHY COORDINATOR documented in this encounter Discharge Summaries Darian Nguyen MD - 08/16/2020 1:36 PM CST [facility]?? Discharge Summary Pediatrics General Date of Admission: [...] then she was seeing Dr. Ferrari at [place] for pain. However, Dakota was very frustrated [...] negative, and she was continued on her LIQUOR DEPARTMENT MANAGER OCP (norethindrone-ethinyl estradiol). Poor bone healing: Endocrinology [...] was started on low dose ketamineinfusion, fenanyl CONTROL ROOM TENDER pump without a basal rate, lyrica (pregabalin), and olanzepine. She was also on scheduled valium for muscle relaxation and scheduled tylenol, Under this regimen her pain was much better managed and she was able to start PT and walking around the unit on POD#2. Transferred to the general pediatric floor on 08/12/20. The fentanyl CONTROL ROOM TENDER did not help her pain and [...] Dr. Gerry Cruz from Hematology was present thro abhijeet Duncan's 08/09/20 surgery to monitor her TXA infusion [...] admission. Ed Bartholomew MD PGY-1, Pediatrics Pager: [phone] Attestation: This patient has been seen and evaluated by me today, and management was discussed with the residentphysicians and nurses. I have reviewed today's vital signs, medications, labs and imaging (as pertinent). I agree with all the findings and plan in this note. Total time: >30 minutes; More than 50% of my time was spent in direct, [id number] counseling with this patient/parent on the issues listed in the assessment/plan section above. Darian Nguyen MD, Pediatric Hospitalist, Pager: [phone] Significant Results and Procedures 08/09/20: Reinsert Segmental [...] lifting >10 lbs x 6 weeks. Adult [facility] Follow-up and recommended labs and tests [...] care physician within 7-10 days. Appointments on [place] and/or [facility] (with [facility] or [facility] provider or service). Call [phone] if you haven't heard regarding these appointments [...] off for 12 hours. Repeat daily.Disp-30 patch, [id number] naloxone (NARCAN) 4 MG/0.1ML nasal spray [place] 1 spray (4 mg) into one nostril [...] mouth daily, Historical Norethindrone Acet-Ethinyl Est (LOESTRIN 08/24, , PO) Take by mouth daily, Historical [...] Labs Lab Test 06/20/20 0840 TSH 3.01 OGRAPHY COORDINATOR documented in this encounter Discharge Instructions Discharge [...] are drawn in 3 months time ?? OGRAPHY COORDINATOR documented in this encounter Medications at Time [...] 10 TAKE ONE TABLET BY 0 06/06 12/2019 MG tablet MOUTH EVERY 8 HOURS NEEDED FOR ANXIETY Lidocaine (LIDOCARE) 4 % Place 1-2 patches on 30 patch 3 0 08/15/2020 PatchIndications: Acute skin over painful post-operative pain, area. Leave on for Chronic musculoskeletal 12 hours, then keep pain off for 12 hours. Repeat daily. naloxone (NARCAN) 4 [place] 1 spray (4 mg) 0.2 mL 0 [...] done. Victor Hugo Talbot MD PGY5 Pager: [phone] FOLLOWUP: Future Appointments Date Time Provider Department Center 09/22/2020 8:30 AM Catina Ha MD [facility] 10/27/2020 2:30 PM Catina Ha MD [facility] OGRAPHY COORDINATOR Azar Cruz MD - 08/15/2020 10:57 PM CST [facility]?? Inpatient Progress Note - Hematology Date of [...] will contact family. Azar Cruz MD Pediatric Diesel Truck Mechanic Division of Pediatric Hematology/Oncology [facility] Pager: [facility]?? Interval History Dakota is feeling much better. [...] improvement. This event has precipitated workup at [facility], [place], and [facility] where she was found to have an [...] information if needed. (copied from her primary business development officer's recent note Aug 2020) Dad with nosebleeds, but no surgeries (orphaned so no other history) Mom with heavy periods, no bruising, no issues with surger Maternal Aunt with Type IIa vWD from [facility] records Medications Medications Prior to Admission Medication [...] 60 minutes 6.1 0 - 15 % OGRAPHY COORDINATOR Janessa Christie CCLS - 08/15/2020 2:21 PM [...] endzone. Patient social and engaged with this press writer. Provided patient with adult coloring and Phase 10 to normalize hospital environment and promote positive coping. No further CFL needs at this time. Anxiety Low Anxiety Major Change/Loss/Stressor/Fears medical condition, self Techniques to [place] with Loss/Stress/Change family presence; peers; cell phone; social media Special Interests Arts and [employer] Outcomes/Follow Up Continue to Follow/Support;Provided Materials (ZTV craft cabin kit, adult coloring, phase 10) OGRAPHY COORDINATOR Estee Braden CNP - 08/15/2020 11:56 AM CST Images from the original note were not included. Pediatric Integrative Medicine Subsequent Consultation Primary Care provider: Josh Carrero Consulting Provider: Rosalind Tavera MD Reason for consultation: I was asked to see this patient for anxiety and jyxwa-zc-wugfupk pain. Assessment: Dakota is a 20 year [...] discomfort and back pain. 3. Discussed with Dakota Nguyen, and mother, to follow-up with our team in the [facility].Please have family call [facility] at [phone] to arrange for this appointment. Follow-up: We [...] in hearing about a relaxation strategy to buttermaker helper in supporting her pain medications and decreasing [...] or concerns. IEstee, spent a total of 35 minutes mljy-yb-jaob and on the unit today. Over 50% of this time was spent counseling the patient-family regarding strategies for relaxation to help reduce discomfort and back pain and coordinating care with PACCT and bedside RN. Estee Braden, INDUSTRIAL NURSE, CPNP, HNB- Pediatric Nurse Practitioner Pediatric Integrative Health & Wellbeing OGRAPHY COORDINATOR Jaiden Bonilla MD - 08/15/2020 7:00 AM CST Images from the original note were not included. Progress note - General Pediatrics Service Date of Admission: Day of Service: 08/15/2020 Physician Attestation I, Jaiden Bonilla MD, saw [...] PO Q6H for muscle spasm?? - Hold LIQUOR DEPARTMENT MANAGER flexeril 5 mg BID -??neuro checks Q4H [...] - Continue lidocaine patch Psych: Anxiety - LIQUOR DEPARTMENT MANAGER sertraline 100 mg daily -??Discontinue IV atarax [...] appreciate recs - Bone survey on 08/12/20 -??LIQUOR DEPARTMENT MANAGER??OCP -??LIQUOR DEPARTMENT MANAGER vitamin D 125mcg PO daily? Respiratory?? Comfortable [...] Dr. Chad Kilgore MD General Pediatrics Service [facility]?? Interval History No acute events overnight, mom [...] Dressing over spine with minimal blood stains OGRAPHY COORDINATOR Victor Hugo Talbot MD - 08/15/2020 6:39 [...] now s/p reinsertion of spinal instrumentation on 1/5/[address] Ha. Postoperative pain has slowed [...] done. Victor Hugo Talbot MD PGY5 Pager: [phone] FOLLOWUP: Future Appointments Date Time Provider Department Center 09/22/2020 8:30 AM Catina Ha MD [facility] 10/27/2020 2:30 PM Catina Ha MD [facility] Estee Robledo MD - 08/14/2020 7:28 AM CST Orthopaedic [...] Estee Dick MD Orthopaedic Surgery, PGY4 Pager: [phone] FOLLOWUP: Future Appointments Date Time Provider Department Center 09/22/2020 8:30 AM Catina Ha MD [facility] 10/27/2020 2:30 PM Catina Ha MD [facility] OGRAPHY COORDINATOR Jaiden Bonilla MD - 08/14/2020 7:23 AM [...] having BM's. Pain under better control with [place] and prn Fentanyl, remains on Ketamine. Lungs - CTA bilaterally, CV- RRR no M Abdomen - soft, ND, NT Jaiden Bonilla MD Date of Service (when [...] while on lidocaine infusion, now on fentanyl CONTROL ROOM TENDER and ketamine drip with sub-optimal pain control. She is otherwise clinically stable. Today's changes: -Discontinue fentanyl CONTROL ROOM TENDER -Start fentanyl IV Q2H PRN -Added lidocaine patch -Stop IVF Neuro/Ortho Scoliosis POD#5 s/p removal of hardware (segmental spinal instrumentation T3-L4) and pseudoarthrosis repair (day of surgery 08/09/20 -??Valium 2.5 mg IV Q6H for muscle spasm?? - Hold LIQUOR DEPARTMENT MANAGER flexeril 5 mg BID -??neuro checks Q4H - hemovac drain removed on 08/12 - no activity/HOB restrictions ?? Pain - acute on poorly-controlled chronic pain/anxiety - PACCT consult, appreciate recommendations - Fentanyl CONTROL ROOM TENDER discontinued - Fentanyl 25 mcg Q2H PRN started - Pregabalin 75 mg Q12H - Commence NORCO 5-325 mg PO Q4H/PRN per PACCT recs (can go up on [place] to 10- 325 mg if more pain per PACCT) - Continue Ketamine 3mg/hr infusion, try to discontinue 08/15 ?? Psych: Anxiety - LIQUOR DEPARTMENT MANAGER sertraline 100 mg daily -??IV atarax 25 [...] recs - Bone survey prior to discharge -??LIQUOR DEPARTMENT MANAGER??OCP -??LIQUOR DEPARTMENT MANAGER vitamin D 125mcg PO daily? Respiratory?? Comfortable [...] Dr. Chad Steel MD General Pediatrics Service [facility]?? Interval History Received fentanyl bolus on CONTROL ROOM TENDER x3 overnight. Getting [place] every 4 hours. Mom and Dakota feel [...] Dressing over spine with minimal blood stains OGRAPHY COORDINATOR Jaiden Bonilla MD - 08/13/2020 2:48 PM CST Images from the original note were not included. Progress note - General Pediatrics Service Date of Admission: Physician Attestation I, Jaiden Bonilla MD, saw this patient with the resident and agree with the resident/fellow's findings and plan of care as documented in the note. I personally reviewed vital signs, medications and labs. Ren findings: Pt with good BM's yesterday, loose. Still with back pain, on Fentanyl CONTROL ROOM TENDER and Ketamine. Plan to start oral [...] while on lidocaine infusion, now on fentanyl CONTROL ROOM TENDER and ketamine drip with sub-optimal pain control. She is otherwise clinically stable. Neuro/Ortho Scoliosis POD#3 s/p removal of hardware (segmental spinal instrumentation T3-L4) and pseudoarthrosis repair (day of surgery 08/09/20 -??Valium 2.5 mg IV Q6H for muscle spasm?? - Hold LIQUOR DEPARTMENT MANAGER flexeril 5 mg BID -??neuro checks Q4H - hemovac drain removed on 08/12 - no activity/HOB restrictions ?? Pain - acute on poorly-controlled chronic pain/anxiety - PACCT consult, appreciate recommendations - Fentanyl CONTROL ROOM TENDER - Pregabalin 75 mg Q12H - Discontinue scheduled Tylenol - Commence NORCO 5-325 mg PO Q4H/PRN per PACCT recs - Continue Ketamine 3mg/hr infusion ?? Psych: Anxiety - LIQUOR DEPARTMENT MANAGER sertraline 100 mg daily -??IV atarax 25 [...] recs - Bone survey prior to discharge -??LIQUOR DEPARTMENT MANAGER??OCP -??LIQUOR DEPARTMENT MANAGER vitamin D 125mcg PO daily? Respiratory?? Comfortable [...] Dr. Chad Kilgore MD General Pediatrics Service [facility]?? Interval History Pain was poorly controlled on continuous ketamine and fentanyl CONTROL ROOM TENDER overnight, she had several episodes of [...] Dressing over spine with minimal blood stains OGRAPHY COORDINATOR Estee Dick MD - 08/13/2020 7:18 AM [...] Estee Dick MD Orthopaedic Surgery, PGY4 Pager: [phone] FOLLOWUP: Future Appointments Date Time Provider Department Center 09/22/2020 8:30 AM Catina Ha MD [facility] 10/27/2020 2:30 PM Catina Ha MD [facility] OGRAPHY COORDINATOR Ruby Goel RN - 08/12/2020 2:15 PM CST Family education completed: Yes Report given to: Marquis Time of transfer: 11:30 Transferred to: Unit 6 Belongings sent:Yes Family updated:Yes Reviewed pertinent information from [facility] (EMAR/Clinical Summary/Flowsheets):Yes Head-to-toe assessment with receiving RN:Yes Recommendations (e.g. Family needs/recent issues/things to watch for): Patient's VSS and remained afebrile. Reporting pain an 8-9. PRN fentanyl x1. Patient voided x2 and BM x2. PO intake well tolerated. Mom at bedside and updated on POC> OGRAPHY COORDINATOR Azar Cruz MD - 08/12/2020 1:25 PM CST [facility]?? Inpatient Progress Note - Hematology Date of [...] with any questions. Azar Cruz MD Pediatric Diesel Truck Mechanic Division of Pediatric Hematology/Oncology [facility] Pager: [facility]?? Interval History Dakota has done well in [...] improvement. This event has precipitated workup at [facility], [place], and [facility] where she was found to have an [...] information if needed. (copied from her primary business development officer's recent note Aug 2020) Dad with nosebleeds, but no surgeries (orphaned so no other history) Mom with heavy periods, no bruising, no issues with surger Maternal Aunt with Type IIa vWD from [facility] records Medications Medications Prior to Admission Medication [...] 60 minutes 6.9 0 - 15 % OGRAPHY COORDINATOR Jaiden Bonilla MD - 08/12/2020 11:33 AM CST [facility]?? Transfer acceptance note - General Pediatrics Service [...] while on lidocaine infusion, now on fentanyl CONTROL ROOM TENDER and ketamine drip with sub-optimal pain control. She has ongoing intermittent orthostatic hypotension and is onbowel regimen for constipation. She is otherwise clinically stable. Neuro/Ortho Scoliosis POD#3 s/p removal of hardware (segmental spinal instrumentation T3-L4) and pseudoarthrosis repair (day of surgery 08/09/20 - Follow up standing x-ray on 08/12 -??Valium 2.5 mg IV Q6H for muscle spasm?? - Hold LIQUOR DEPARTMENT MANAGER flexeril 5 mg BID -??neuro checks Q4H - hemovac drain removed on 08/12 - no activity/HOB restrictions ?? Pain - acute on poorly-controlled chronic pain/anxiety - PACCT consult, appreciate recommendations - Fentanyl CONTROL ROOM TENDER - Pregabalin 75 mg Q12H -Tylenol 650 mg PO Q6H - Continue Ketamine 3mg/hr infusion ?? Psych: Anxiety - LIQUOR DEPARTMENT MANAGER sertraline 100 mg daily -??IV atarax 25 mg Q6H??PRN - Olanzepine 5mg at bedtime ?? FEN/Renal?? - Regular diet as tolerated - Encourage oral fluid intake - MIVF (NS at 100cc/hr) -??strict I/Os, daily weights?? - consider checking BMP today or 08/13 am if remains on IVF. Cardiovascular?? Postural [...] recs - Bone survey prior to discharge -??LIQUOR DEPARTMENT MANAGER??OCP -??LIQUOR DEPARTMENT MANAGER vitamin D 125mcg PO daily? Respiratory?? Comfortable [...] Dr. Chad Kilgore MD General Pediatrics Service [facility]?? Interval History She was transferred to the [...] Cranial nerves II- XII are grossly intact. OGRAPHY COORDINATOR Eleanor Dooley MD - 08/12/2020 8:34 AM CST [facility]?? Pediatric Intensive Care Progress Note Date of [...] IV Q6H - muscle relaxant - hold LIQUOR DEPARTMENT MANAGER flexeril 5 mg BID - neuro checks Q4H - hemovac drain removed on 08/12 - no activity/HOB restrictions Pain - acute on poorly-controlled chronic pain/anxiety - PACCT consult, appreciate recommendations - please see 08/[address] Gonzalez for details. - Switch to Fentanyl CONTROL ROOM TENDER: 0mcg/hr basal rate; 4 bumps per hour of 25mcg (max 100mcg per hour), [id number] bolus when starting pump. If becomes too sleepy, can decrease bump frequency or dose. - Tylenol 650 mg PO Q6H - Pregabaline (Lyrica) 75mg BID - co-analgesic - Received 1x 25mcg IV Fentanyl dose on 18 am which helped significantly with back pain and allowedHaile to walk around the unit. Anxiolysis - Continue Ketamine 3mg/hr infusion, for anxiolytic properties. Can increase to 6mg/hr if needed. - Olanzepine 5.0mg at bedtime - for antiemetic and anxiolytic properties - LIQUOR DEPARTMENT MANAGER sertraline 100 mg daily - IV atarax [...] suppository 10mg PRN if no stool by 08/12 afternoon. Or consider enema. ?? Nausea - [...] disorder. - Endocrinolgy consulted, appreciate recs - LIQUOR DEPARTMENT MANAGER OCP - LIQUOR DEPARTMENT MANAGER vitamin D 125mcg PO daily ? Diet: [...] physician, Dr. Dooley. Vivi Wong, DO [facility] Pediatric Resident [address] Pager # [phone] Fellow Attestation: ?? Dakota Casiano??is a 20 [...] decisions made today included: continue to hold CONTROL ROOM TENDER opioid as able, space hematologic labs, [...] 08/12/20 0931 ??? sodium chloride Stopped (08/11/20 2255) ??? sodium chloride 100 mL/hr at 08/12/20 [...] 60 minutes 6.9 0 - 15 % OGRAPHY COORDINATOR Victor Hugo Talbot MD - 08/12/2020 5:45 [...] done. Victor Hugo Talbot MD PGY5 Pager: [phone] Please page me directly with any questions/concerns during regular weekday hours before 5pm. If there is no response, if it is a weekend, or if it is during evening hours then please page the orthopaedic surgery resident regional engagement consultant as listed on [facility] call schedule under the orthopaedics tab. FOLLOWUP: Future Appointments Date Time Provider Department Center 09/22/2020 8:30 AM Catina Ha MD [facility] 10/27/2020 2:30 PM Catina Ha MD [facility] OGRAPHY COORDINATOR Azar Cruz MD - 08/11/2020 3:27 PM [...] with the team. Azar Cruz MD Pediatric Diesel Truck Mechanic Division of Pediatric Hematology/Oncology [facility] Pager: OGRAPHY COORDINATOR Eleanor Dooley MD - 08/11/2020 3:12 PM CST [facility]?? Pediatric Intensive Care Progress Note Date of [...] disorder. - Endocrinolgy consulted, appreciate recs - LIQUOR DEPARTMENT MANAGER OCP - LIQUOR DEPARTMENT MANAGER vitamin D 125mcg PO daily ?? Neuro/Ortho Scoliosis POD#2 s/p removal of hardware (segmental spinal instrumentation T3-L4) and pseudoarthrosis repair (day of surgery 08/09/20) - Stop morphine gtt - Keep morphine 0.5mg PRN to cover while switching - Stop lidocaine gtt - ortho will order follow up x-rays - valium 2.5 mg IV Q6H - hold LIQUOR DEPARTMENT MANAGER flexeril 5 mg BID - neuro checks Q4H - hemovac drain removed - no activity/HOB restrictions Pain - acute on poorly-controlled chronic pain/anxiety - PACCT consult, appreciate recommendations - Tylenol 650 mg PO Q6H - Switch to Dilaudid CONTROL ROOM TENDER (0.2mg/hr, 0.1mg bumps) - Start Ketamine 3mg/hr infusion - - Olanzepine 2.5-5.0mg at bedtime - for antiemetic and anxiolytic properties. ?? Psych: Anxiety - LIQUOR DEPARTMENT MANAGER sertraline 100 mg daily - IV atarax [...] physician, Dr. Dooley. Vivi Wong, DO [facility] Pediatric Resident [address] Pager # [phone] Fellow Attestation: ?? Dakota Casiano is a [...] ketamine gtt and add gabapentin/zyprexa, transition to CONTROL ROOM TENDER dilaudid, increase bowel regimen Procedures that [...] Fibrinogen 515 (H) 200 - 420 mg/dL OGRAPHY COORDINATOR Criselda Lemus, OTR - 08/11/2020 11:06 AM CST 08/11/20 [...] Evaluation Time Total Evaluation Time (Minutes) [address] - 08/11/2020 9:50 AM [...] mcg Vit D daily ASSESSED NUTRITION NEEDS CERTIFIED ORTHOTIC FITTER/age: 39 kcal/kg and 0.8 g/kg of protein BMR via [place] (1296) x 1.2-1.4 = 1555 - 1814 kcal/day Estimated Energy Needs: 28 - 33 kcal/kg Estimated Protein Needs: 1-1.2 g/kg Estimated Fluid Needs: 2,194 mL baseline or per medical team in ICU Micronutrient Needs: CERTIFIED ORTHOTIC FITTER/age NUTRITION STATUS VALIDATION Patient does not meet [...] Grayson RDN, LD Pediatric Clinical Dietitian Pager: [phone] OGRAPHY COORDINATOR Victor Hugo Talbot MD - 08/11/2020 6:14 AM CST Orthopaedic Surgery Progress Note: 08/11/2020 Subjective: Ongoing back pain. At times, difficult to manage. Feels well managed this AM. No symptoms in legs. Ongoing low HV output. Passing a little flatus, -BM. Voiding w/o [place]. [place] lightheaded when standingx2. Objective: BP 104/58 Pulse [...] done. Victor Hugo Talbot MD PGY5 Pager: [phone] Please page me directly with any questions/concerns during regular weekday hours before 5pm. If there is no response, if it is a weekend, or if it is during evening hours then please page the orthopaedic surgery resident regional engagement consultant as listed on [facility] call schedule under the orthopaedics tab. FOLLOWUP: Future Appointments Date Time Provider Department Center 09/22/2020 8:30 AM Catina Ha MD [facility] 10/27/2020 2:30 PM Catina Ha MD [facility] OGRAPHY COORDINATOR Azar Cruz MD - 08/10/2020 9:41 PM CST [facility]?? Inpatient Progress Note - Hematology Date of [...] her mom today. Azar Cruz MD Pediatric Diesel Truck Mechanic Division of Pediatric Hematology/Oncology [facility] Pager: [facility]?? Interval History Dakota said she has been [...] improvement. This event has precipitated workup at [facility], [place] and [facility] where she was found to have an [...] information if needed. (copied from her primary business development officer's recent note Aug 2020) Dad with nosebleeds, but no surgeries (orphaned so no other history) Mom with heavy periods, no bruising, no issues with surger Maternal Aunt with Type IIa vWD from [facility] records Medications Medications Prior to Admission Medication [...] Pulse: 71 Resp: 19 SpO2: 99 % F4Pmtufi: None (Room air) Weight: 120 lbs 9.47 [...] Routine within 24 hrs; Call back #: [phone]; anxiety, acute and chronic pain; Asphalt Heater Tender may enter orders: Yes; Requesting provider? Attending physician Narrative Estee Braden CNP 08/10/2020 2:30 PM Pediatric Integrative Medicine Initial Consultation Primary Care provider: Josh Carrero Consulting Provider: Rosalind Tavera MD Reason for consultation: I was asked to see this patient for anxiety and blmwi-nn-srcoirj pain. Assessment: Dakota is a 20 year [...] IEstee, spent a total of 20 minutes qium-fe-umtc and on the unit today. Over 50% of this time was spent counseling the patient-family regarding strategies for nausea and relaxation and coordinating care with primary team and bedside RN. Estee Braden, INDUSTRIAL NURSE, CPNP, HNB-BC Pediatric Nurse Practitioner Pediatric Integrative [...] 60 minutes 7.3 0 - 15 % OGRAPHY COORDINATOR Eleanor Dooley MD - 08/10/2020 3:28 PM CST [facility]?? Pediatric Intensive Care Progress Note Date of [...] disorder. - Endocrinolgy consulted, appreciate recs - LIQUOR DEPARTMENT MANAGER OCP - LIQUOR DEPARTMENT MANAGER vitamin D 125mcg PO daily ?? Neuro/Ortho Scoliosis POD#1 s/p removal of hardware (segmental spinal instrumentation T3-L4) and pseudoarthrosis repair (day of surgery 08/09/20) Pain, acute on chronic - PACCT consult - morphine gtt @ 0.5 mg/hr + 0.5 mg Q2H PRN (patient prefers over CONTROL ROOM TENDER) -- consider switching to dilaudid instead of morphine if remains too sleepy and/or pain not sufficiently treated with morphine. - lidocaine infusion @ 1 mg/kg/hr (plan to keep until 8 am on POD#2) - ortho will order follow up x-rays - valium 2.5 mg IV Q6H - hold LIQUOR DEPARTMENT MANAGER flexeril 5 mg BID - tylenol 650 mg PO Q6H - neuro checks Q4H - cortez in place - monitor drain output - should be <100 mL/day per ortho - PT/OT consult - no activity/HOB restrictions ?? Psych: Anxiety - LIQUOR DEPARTMENT MANAGER sertraline 100 mg daily - IV atarax [...] physician, Dr. Dooley. Vivi Wong, DO [facility] Pediatric Resident PL-2 Pager # [phone] Fellow Attestation: Dakota Casiano is a 20 [...] 1102 ??? lidocaine (for analgesia) 1 mg/kg/hr (08/10/20733) ??? morphine 1 mg/mL infusion PEDS/NICU LESS than 20 kg 0.5 mg/hr (08/10/20733) ??? IV infusion builder /PEDS (commercially made [...] Routine within 24 hrs; Call back #: [phone]; anxiety, acute and chronic pain; Asphalt Heater Tender may enter orders: Yes; Requesting provider? Attending physician Narrative Estee Braden CNP 08/10/2020 2:30 PM Pediatric Integrative Medicine Initial Consultation Primary Care provider: Josh Carrero Consulting Provider: Rosalind Tavera MD Reason for consultation: I was asked to see this patient for anxiety and schsv-xc-aojtone pain. Assessment: Dakota is a 20 year [...] -0.35)* * Growth percentiles are based on [facility] (Girls, 2-20 Years) data. 48 %ile (Z= [...] Braden, spent a total of 20 minutes khpc-sx-svnm and on the unit today. Over 50% of this time was spent counseling the patient-family regarding strategies for nausea and relaxation and coordinating care with primary team and bedside RN. Estee Braden, INDUSTRIAL NURSE, CPNP, HNB- Pediatric Nurse Practitioner Pediatric Integrative Health & Wellbeing OGRAPHY COORDINATOR Berenice Edgar, PT - 08/10/2020 12:48 PM [...] Skin Color/Characteristics pale Skin Integrity bruised (ecchymotic);drain/device(s);incision OGRAPHY COORDINATOR Victor Hugo Talbot MD - 08/10/2020 6:58 [...] done. Victor Hugo Talbot MD PGY5 Pager: [phone] Please page me directly with any questions/concerns during regular weekday hours before 5pm. If there is no response, if it is a weekend, or if it is during evening hours then please page the orthopaedic surgery resident regional engagement consultant as listed on [facility] call schedule under the orthopaedics tab. FOLLOWUP: Future Appointments Date Time Provider Department Center 09/22/2020 8:30 AM Catina Ha MD [facility] 10/27/2020 2:30 PM Catina Ha MD [facility] OGRAPHY COORDINATOR Merissa Pradhan MD - 08/09/2020 9:00 PM [...] PHV, PCO2V, PO2V, HCO3V in the last 39814 hours. Recent Labs Lab Test 08/10/20 0400 08/09/20 2200 WBC 13.8* 12.1* HGB 10.1* 10.4* HCT 29.9* 30.3* MCV 90 90 RDW 12.3 12.1 PLT 202 211 Lab Results Component Value Date INR 1.15 08/10/2020 , Lab Results Component Value Date PTT 28 08/10/2020 Additions/changes to plan include: 1) follow hgb/TEG per business development officer. 2) ongoing pain control effective. 3) PACTT to see in am I spent a total of 35 minutes providing critical care services at the bedside, and on the critical care unit, evaluating the patient, directing care and reviewing laboratory values and radiologic reports for Dakota Casiano. Merissa Pradhan MD OGRAPHY COORDINATOR Victor Hugo Talbot MD - 08/09/2020 2:24 [...] current cares. Victor Hugo Talbot MD PGY5 OGRAPHY COORDINATOR documented in this encounter H&P Notes Eleaonr Dooley MD - 08/09/2020 3:15 PM CST [facility]?? History and Physical - Pediatric ICU Service Date of Admission: 08/09/2020 Assessment & Plan Daktoa Casiano is a 20 year old female [...] disorder. - Endocrinolgy consulted, appreciate recs - LIQUOR DEPARTMENT MANAGER OCP - LIQUOR DEPARTMENT MANAGER vitamin D 125mcg PO daily Neuro/Ortho #Scoliosis #POD#0 s/p removal of hardware (segmental spinal instrumentation T3-L4) and pseudoarthrosis repair #Pain, acute on chronic - morphine gtt @ 0.5 mg/hr + 1 mg Q2H PRN (patient prefers over CONTROL ROOM TENDER) - lidocaine infusion @ 1 mg/kg/hr (plan to keep until 8 am on POD#2) - ortho will order follow up x-rays - valium 2.5 mg IV Q6H - hold LIQUOR DEPARTMENT MANAGER flexeril 5 mg BID - tylenol 650 mg PO Q6H - neuro checks Q4H - cortez in place - monitor drain output - should be <100 mL/day per ortho - PT/OT consult - no activity/HOB restrictions - consult PACCT in AM Psych: #Anxiety - LIQUOR DEPARTMENT MANAGER sertraline 100 mg daily - IV atarax [...] then she was seeing Dr. Ferrari at [place] for pain. However, Dakota was very frustrated [...] History Maternal aunt: type IIa vWD MFG: [place], bleeding issues Prior to Admission Medications Prior [...] Pulse: 94 Resp: 21 SpO2: 99 % W1Mxwyiy: None (Room air) Weight: 120 lbs 9.47 [...] 149* 126* ALBUMIN 3.5 -- -- -- OGRAPHY COORDINATOR documented in this encounter Consult Notes Estee Braden, SUNNY - 08/10/2020 1:45 PM CSTAssociated Order(s): PEDS INTEGRATIVE HEALTH IP CONSULT Images from the original note were not included. Pediatric Integrative Medicine Initial Consultation Primary Care provider: Josh Carrero Consulting Provider: Rosalind Tavera MD Reason for consultation: I was asked to see this patient for anxiety and eqdtq-su-jhmbchk pain. Assessment: Dakota is a 20 year [...] Braden, spent a total of 20 minutes iium-pe-ectx and on the unit today. Over 50% of this time was spent counseling the patient-family regarding strategies for nausea and relaxation and coordinating care with primary team and bedside RN. Estee Braden, INDUSTRIAL NURSE, CPNP, HNB-BC Pediatric Nurse Practitioner Pediatric Integrative Health & Wellbeing OGRAPHY COORDINATOR Azar Cruz MD - 08/09/2020 9:37 PM CSTAssociated Order(s): PEDS HEM/ONC IP CONSULT [facility]?? Consult Note - Hematology Date of Admission: [...] during the procedure. Azar Cruz MD Pediatric Diesel Truck Mechanic Division of Pediatric Hematology/Oncology [facility] Pager: [facility]?? Chief Complaint Possible bleeding disorder History is [...] improvement. This event has precipitated workup at [facility], [place], and [facility] where she was found to have an [...] information if needed. (copied from her primary business development officer's recent note Aug 2020) Dad with nosebleeds, but no surgeries (orphaned so no other history) Mom with heavy periods, no bruising, no issues with surger Maternal Aunt with Type IIa vWD from [facility] records Medications Medications Prior to Admission Medication [...] Pulse: 59 Resp: 14 SpO2: 99 % V6Twpysk: None (Room air) Weight: 120 lbs 9.47 [...] Antibody Screen Neg Test Valid Only At [facility] Specimen Expires 08/12/2020 Crossmatch Red Blood Cells Glucose Result Value Ref Range Glucose 75 70 - 99 mg/dL Blood component Result Value Ref Range Unit Number [id number] Blood Component Type Red Blood Cells Leukocyte Reduced Division Number 00 Status of Unit Ready for patient 08/09/2020 0857 Blood Product Code [id number] Unit Status GRADY Blood component Result Value Ref Range Unit Number [id number] Blood Component Type Red Blood Cells Leukocyte Reduced Division Number 00 Status of Unit Ready for patient 08/09/2020 0857 Blood Product Code [id number] Unit Status GRADY Arterial Panel Result Value [...] be read by a radiologist or a [place] non-radiologist provider. Renal Panel Result Value Ref [...] Routine within 24 hrs; Call back #: [phone] ext [phone]; hx of scoliosis with poor healing after multiple repairs, also has unknown platelet disorder; Asphalt Heater Tender may enter orders: Yes; Requesti... Narrative Inga Dolan MD 08/09/2020 5:28 PM [facility] Pediatric Endocrinology Consultation New Note Reason for [...] 2019. She also was seen at the [facility] where they felt that her symptoms might [...] young woman who plays [employer] on her [facility] team. There is no family history of [...] been reviewed. Inga Dolan MD Professor and District Director Pediatric Endocrinology and Diabetes Pager: [phone] Methicillin Resist/Sens S. aureus PCR Specimen: Nasal [...] 60 minutes 3.8 0 - 15 % OGRAPHY COORDINATOR Inga Dolan MD - 08/09/2020 4:39 PM CSTAssociated Order(s): PEDS ENDOCRINOLOGY IP CONSULT [facility] Pediatric Endocrinology Consultation New Note Reason for [...] 2019. She also was seen at the [facility] where they felt that her symptoms might [...] activeyoung woman who plays [employer] on her [facility] team. There is no family history of [...] been reviewed. Inga Dolan MD Professor and District Director Pediatric Endocrinology and Diabetes Pager: [phone] OGRAPHY COORDINATOR documented in this encounter Nursing Notes Zoila Boone RN - 08/08/2020 9:40 AM CST Images from the original note were not included. Mariposa Atwood MD Randle, Darrell Wayne, MD; Zoila Boone RN; Chuck Martino Anesthesiology; Riaz Kenyon MD Cc: Maura Moreno RN; Rachel Rodriguez RN; Jana Fischer RN ?? I just left a note in addition to Dr. Ha's re: summary and plan. Will fill in the addendum with additional detail of prior course sometime today. OGRAPHY COORDINATOR Zoila Boone RN - 08/04/2020 8:15 AM CST Images from the original note were not included. AA Hematology abn: Bleeding Abnormalities.Needs review. Surgery on 08/09 Received: Yesterday Message Contents Federico Redman MD Johnson, Judy, RN; Chuck Martino Anesthesiology; Riaz Kenyon MD; Mariposa Atwood MD [...] interoperative management? Thank you! Federico Redman MD Administrative Office Manager of Preoperative Assessment Center [phone] Previous Messages ----- Message ----- From: Zoila Boone RN Sent: 08/03/2020 ?? 2:24 PM PHOTOGRAPHY COORDINATOR To: Rachel Rodriguez RN, Maura Moreno RN, * Subject: AA Hematology abn: Bleeding Abnormalities.Ne* Hi all, FYI: History of complex bleeding disorder-[place] platelet disorder? Pt had a interoperative hemorrhage in 2015 (EBL 1400 ml). ?? Please see Dr Ha's note on 07/21/20, regarding plan. ??Surgery is on 08/09/20. Thanks so much. Zoila Boone RN, BSN Preanesthesia Screening [phone] OGRAPHY COORDINATOR Zoila Boone RN - 08/03/2020 2:34 PM CST Images from the original note were not included. AA Hematology abn: Bleeding Abnormalities.Needs review. Surgery on 08/09 Received: Today Message Contents Zoila Boone RN P Pas Anesthesiology; Riaz Kenyon MD Cc: Maura Moreno RN; Rachel Rodriguez RN; Jana Fischer RN ?? 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 Pt had a interoperative hemorrhage in 2015 (EBL 1400 ml). ?? Please see Dr Ha's note on 07/21/20, regarding plan. ??Surgery is on 08/09/20. Thanks so much. Zoila Boone RN, BSN Preanesthesia Screening [phone] OGRAPHY COORDINATOR documented in this encounter Miscellaneous Notes Plan of Care - Tess Gutierrez RN - 08/16/2020 1:36 PM CST VSS. Afebrile. Rating back pain 7/10. Patient appears comfortable. Pain controlled with 5 mg PRN Oxycodone x2, scheduled valium, and scheduled Tylenol. Voiding well. Having loose stools - bowel medications held. All goals met for discharge. AVS and discharge medications reviewed with patient and mother, they verbalized understanding. Discharged at 1315. OGRAPHY COORDINATOR Pharmacy - Discharge Medication Reconciliation and Education - Zeb Bravo [facility] - 08/16/2020 1:12 PM CST Discharge medication [...] pain naloxone (NARCAN) 4 MG/0.1ML nasal spray [place] 1 spray (4 mg) into one nostril [...] Stopping: Katja Wilcox, 4th Year Student Pharmacist OGRAPHY COORDINATOR Plan of Care - Tiff Collins RN [...] Mother at bedside. Hopeful for discharge today. OGRAPHY COORDINATOR Plan of Care - Henna Murray RN [...] Possible discharge tomorrow. Will continue to monitor. OGRAPHY COORDINATOR Provider Notification - Henna Murray RN - 08/15/2020 8:41 PM PHOTOGRAPHY COORDINATOR [facility] Resident Mg notified via [facility] paging that pt crying and reporting extreme [...] at this time, will continue to monitor. OGRAPHY COORDINATOR Plan of Care - Tess Gutierrez RN - 08/15/2020 3:44 PM CST VSS. Afebrile. Rating back pain 7-8/10. Pain controlled with PRN [place] x1 (now discontinued), scheduled Valium, PRN Oxycodone, and Lidocaine patch. Ketamine gtt stopped per orders. Ice packs also applied. Patient took shower today and walked around [place] x2 with PT. Voiding well. Having loose stools - bowel medications held this AM. Mother at bedside and updated on POC. Will continue to monitor and update with changes. OGRAPHY COORDINATOR Plan of Care - Mariposa Garcia, JUDY - 08/15/2020 2:32 PM CST Physical Therapy Discharge Summary Reason for therapy discharge: Discharged to home with outpatient therapy. Progress towards therapy goal(s). See goals on Care Plan in [facility] electronic health record for goal details. Goals met Therapy recommendation(s): Continued therapy is recommended. Rationale/Recommendations: Continued therapy recommended to progress core strength, address muscular imbalances and assist patient with safe progression of strengthening with good body mechanics. OGRAPHY COORDINATOR Provider Notification - Tess Gutierrez RN - 08/15/2020 7:56 AM CST 08/15/20 0747 08/15/20 0754 Vitals BP 95/50 90/48 Patient Position Lying Lying Site Arm, upper left Arm, upper left Mode Electronic Electronic Cuff Size Adult Adult Patient with x2 soft BPs. Pt sleeping. Purple team notified. Will continue to monitor and update with changes. OGRAPHY COORDINATOR Plan of Care - Berlin Downs RN - 08/15/2020 6:46 AM CST Pt calm and appearing happy during evening, slept well through the night. Pain 8/10 while awake and 6-7/10 overnight. No nonverbal indicators of pain observed. Pain/discomfort controlled with Ketamine gtt, [place] Q4, and Valium. Neuro checks WDL. Pt moving well, stand-by assist. Drinking well. Having loose stools, Miralax and Senna held. Voiding well. Mother at bedside. Plan to continue monitoring. OGRAPHY COORDINATOR Plan of Care - Tiff Gonzales RN - 08/14/2020 7:24 PM CST Pain control an issue [phone]. Pt continues to need pain meds when [...] attentive to needs. Will continue to monitor. OGRAPHY COORDINATOR Plan of Care - Keily Cardona, OT - 08/14/2020 12:18 PM CST Occupational Therapy Discharge Summary Reason for therapy discharge: All goals and outcomes met, no further needs identified. Progress towards therapy goal(s). See goals on Care Plan in [facility] electronic health record for goal details. Goals met Therapy recommendation(s): Pt safe to discharge to home with assist as needed for ADLs. Pt has a shower chair at home. OGRAPHY COORDINATOR Plan of Care - David Ayala RN [...] up in morning. Will continue to monitor. OGRAPHY COORDINATOR Plan of Care - Reyna Edwards RN - 08/13/2020 10:07 PM CST Tmax 100.4, 99.6 re-check. BP 87/37, MD notified, recheck was WDL. Other VSS. Lung sounds clear. Pt c/o 9-10/10 back pain. Took 2 bumps from fentanyl CONTROL ROOM TENDER and 2 denied. Ketamine gtt remains unchanged. Pt c/o headache, received [place] x 1 with little effect. Good UOP. Dressings remain clean, dry, and intact. Stool softeners held per patient request. Hourly rounding complete. Will continue to monitor andassess. OGRAPHY COORDINATOR Plan of Care - Mariposa Garcia, PT [...] supervision. Safe for discharge from PT perspective OGRAPHY COORDINATOR Plan of Care - Marine Paredes RN - 08/13/2020 7:52 AM CST [id number]: Afebrile, VSS LSC on RA. Pain 9/10 with scheduled tylenol, cold packs, continuous ketamine and CONTROL ROOM TENDER fentanyl with 5 bumps taken 8 denied. Appeared to sleep well between cares. No nausea. Dressing on back c/d/I- no changes. No c/o nausea. PIV in R arm fell out this AM- replaced without issue.Up to commode with pt's mother's assistance overnight. No stool. Hourly rounding completed, continueto monitor and notify team of changes/concerns. OGRAPHY COORDINATOR Plan of Care - Tess Gutierrez RN - 08/12/2020 4:10 PM CST Pt arrived to unit from PICU at 1150. VSS. Afebrile. Rating pain 9/10. Pain controlled with Ketaminegtt, Fentanyl CONTROL ROOM TENDER with one time clinician bolus as [...] continue to monitor and update with changes. OGRAPHY COORDINATOR Plan of Care - Janett Hylton RN [...] patient involved in the plan of care. OGRAPHY COORDINATOR Provider Notification - Aliza Brannno RN - 08/11/2020 10:59 PM CST 08/11/20 2200 Vitals BP (!) 84/43 RN notified Resident Marina CONCEPCION of BP lower than parameters. MIVF started at 100ml/hr - will reevaluate at 0000 regarding next steps/improvements in BP. Will continue to monitor. OGRAPHY COORDINATOR Plan of Care - Ruby Goel RN - 08/11/2020 7:57 PM CST Patient's VSS and remained afebrile. Adjustments made to patient's pain medications. Shortly after initiating dilaudid gtt patient started to become confused and slightly delirious. Resident notified and gtt stopped. Minimal PO intake PRN zofran x2. Mom at bedside and updated on POC. OGRAPHY COORDINATOR Provider Notification - Estee Braden CNP - [...] Nurse Practitioner Pediatric Integrative Health & Wellbeing OGRAPHY COORDINATOR Plan of Care - Sammie Clifton RN [...] to commode cause she doesn't wanna faint. OGRAPHY COORDINATOR Plan of Care - Desire Thomas RN [...] here this afternoon. Will continue to monitor. OGRAPHY COORDINATOR Plan of Care - Benson Edwards OT - 08/10/2020 12:41 PM CST OT: Cancel, Pt not appropriate for OT evaluation at this time, will hold OT evaluation at this time and will reschedule evaluation as appropriate. OGRAPHY COORDINATOR Plan of Care - Janice Stallworth RN [...] updated on POC. Will continue to monitor. OGRAPHY COORDINATOR Op Note - Catina Ha MD - [...] 44 cm. SURGEON: Catina Ha Jr., MD SAFETY AND SECURITY MANAGER: Victor Hugo Talbot MD, resident. INDICATION FOR OPERATION: The patient is a 20-year-old female with a complex spinal history. She wasinitially [facility] by the team at [facility]. She underwent a tethered cord releaseby Dr. Girish Hammond. She then underwent a posterior spinal fusion by Dr. Cobos in 01/2016. She had pain f ollowing the surgery, underwent removal of a right T8 hook. She was then subsequently seen by Dr. Perez and then Dr. Muro at [facility]. 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 She saw Dr. Muro at [facility], who felt that she had symptoms at the level of her crosslink, and the crosslink was removed, which resulted in some improvement, and then she got worse. She was then seen at [facility], where she was undergoing [facility] physical therapy, and it got to the [...] Arrangements were made to have a pediatric business development officer in attendance in the OR to help manage her bleeding issues and bleeding problems. DESCRIPTION OF PROCEDURE: The OR team was briefed about the plan. The patient was brought to the operating room and underwent the induction of adequate general anesthesia, the patient was positioned prone on a 4-industrial cleaner frame. She was then prepared and draped [...] plan to utilize the O- arm and Stealth navigation in order to place screws. The [...] intraoperative 3D images, which were transferred the [employer] image-guided workstation and allowedus to place other [...] MD MT: JOHNSON Name: DAKOTA CASIANO Account: [id number] : 2000 Procedure Date: 08/09/2020 Document: [id number] cc: Marilyn Muro MD Copy for Patient [facility] Br[facility] Perez MD OGRAPHY COORDINATOR Plan of Care - Jazzmine Max RN - 08/09/2020 7:02 PM CST Pt post op from unexpected addition of new spinal hardware instead of only removal of old hardware. Pt expressing a lot of pain, total of 4mg morphine given from 0510-0938 as well as 1 dose of atarax, this has been tolerable for pt as she has been sleeping since the last 1730 prn dose given. Still taking just water. Post op labs still [id number]. Mom updated on poc, continue to monitor. OGRAPHY COORDINATOR Pharmacy-Admission Medication History - Robert Ying [facility] - 08/09/2020 3:05 PM CST Admission medication history interview status for the 08/09/2020 admission is complete. See [facility] admission navigator for allergy information, pharmacy, prior to admission medications and immunization status. Medication history interview sources: Mother Changes made to LIQUOR DEPARTMENT MANAGER medication list (reason) Added: setraline Deleted: none [...] Reported, Patient Norethindrone Acet-Ethinyl Est (LOESTRIN 08/24, , PO) Take by mouth daily 08/08/2020 at Unknown time Yes Reported, Patient sertraline (ZOLOFT) 100 MG tablet Take 100 mg by mouth daily Yes Unknown, Entered By History Medication history completed by: Robert Ying RP OGRAPHY COORDINATOR Brief Op Note - Victor Hugo Talbot MD - 08/09/2020 1:07 PM CST [facility]?? Brief Operative Note Pre-operative diagnosis: Scoliosis [M41.9] [...] Implant Name Type Inv. Item Serial No. Web Applications Programmer Lot No. LRB No. Used Action EXPLANTED SPINAL HARDWARE N/A 1 Explanted GRAFT BONE CRUSH CANC 30ML [id number] Bone/Tissue/Biologic GRAFT BONE CRUSH CANC 30ML [id number] MUSCULOSKELETAL RAMIREZ N/A 1 Implanted GRAFT BONE CRUSH CANC 30ML [id number] Bone/Tissue/Biologic GRAFT BONE CRUSH CANC 30ML [id number] MUSCULOSKELETAL RAMIREZ N/A 1 Implanted IMP SCR SET MEDT SOLERA BREAK OFF 5.5MM TI [id number] Metallic Hardware/[place] IMP SCR SET MEDT SOLERA BREAK OFF 5.5MM TI [id number] [employer] N/A 15 Implanted IMP SCR MEDT 5.5/6.0MM SOLERA 6.5X45MM FA TI [id number] Metallic Hardware/[place] IMP SCR MEDT 5.5/6.0MM SOLERA 6.5X45MM FA TI [id number] [employer] N/A 2 Implanted IMP SCR MEDT 5.5/6.0MM SOLERA 6.5X50MM FA TI [id number] Metallic Hardware/[place] IMP SCR MEDT 5.5/6.0MM SOLERA 6.5X50MM FA TI [id number] [employer] N/A 1 Implanted IMP SCR MEDT 5.5/6.0MM SOLERA 5.5X45MM FA TI [id number] Metallic Hardware/[place] IMP SCR MEDT 5.5/6.0MM SOLERA 5.5X45MM FA TI [id number] [employer] N/A 3 Implanted IMP SCR MEDT 5.5/6.0MM SOLERA 5.5X50MM FA TI [id number] Metallic Hardware/[place] IMP SCR MEDT 5.5/6.0MM SOLERA 5.5X50MM FA TI [id number] [employer] N/A 1 Implanted IMP SCR MEDT 5.5/6.0MM SOLERA 5.5X40MM FA TI [id number] Metallic Hardware/[place] IMP SCR MEDT 5.5/6.0MM SOLERA 5.5X40MM FA TI [id number] [employer] N/A 3 Implanted IMP SCR MEDT 5.5/6.0MM SOLERA 5.5X35MM FA TI [id number] Metallic Hardware/[place] IMP SCR MEDT 5.5/6.0MM SOLERA 5.5X35MM FA TI [id number] [employer] N/A 1 Implanted IMP SCR MEDT 5.5/6.0MM SOLERA 4.5X40MM FA TI [id number] Metallic Hardware/[place] IMP SCR MEDT 5.5/6.0MM SOLERA 4.5X40MM FA TI [id number] [employer] N/A 2 Implanted IMP SCR MEDT 5.5/6.0MM SOLERA 4.5X35MM FA TI [id number] Metallic Hardware/[place] IMP SCR MEDT 5.5/6.0MM SOLERA 4.5X35MM FA TI [id number] [employer] N/A 1 Implanted IMP SANDY MEDT SOLERA TIAL STR LINED [id number] Metallic Hardware/[place] IMP SANDY MEDT SOLERATIAL STR LINED [id number] [id number] [employer] N/A 2 Implanted Medtronic NB Hook [employer] N/A 1 Implanted GRAFT BONE INFUSE BMP LG II [id number] GRAFT BONE INFUSE BMP LG II [id number] [employer] [id number] N/A 1 Implanted GRAFT BONE INFUSE BMP MED [id number] GRAFT BONE INFUSE BMP MED [id number] [employer] [id number] N/A 1 Implanted OGRAPHY COORDINATOR documented in this encounter Plan of Treatment Pending Results Name Type Priority Associated Diagnoses Date/Ti me CBC with platelets Lab Timed Scoliosis 6:49 AM PHOTOGRAPHY COORDINATOR Scheduled Referrals Name Type Priority [facility] Diagnoses [facility] Referral Routine Neuromuscular scoliosis of Expected: REFERRAL thoracolumbar region 021, Expires: 08/15/2021 documented as of this encounter Procedures Procedure Name Priority Date/Time Associated Comments Diagnosis TEG WITHOUT HEPARINASE Routine 08/15/2020 8:46 Scoliosis Re sults for this AM PHOTOGRAPHY COORDINATOR procedure are i n the results section. INR Routine 08/15/2020 8:46 Scoliosis Results for this AM PHOTOGRAPHY COORDINATOR procedure are i n the results section. PARTIAL THROMBOPLASTIN Routine 08/15/2020 8:46 Scoliosis Re sults for this TIME AM PHOTOGRAPHY COORDINATOR procedure are i n the results section. FIBRINOGEN ACTIVITY Routine 08/15/2020 8:46 Scoliosis Resul ts for this AM PHOTOGRAPHY COORDINATOR procedure are i n the results section. CBC WITH PLATELETS Routine 08/15/2020 8:46 Scoliosis Result s for this AM PHOTOGRAPHY COORDINATOR procedure are i n the results section. TEG WITHOUT HEPARINASE Routine 08/14/2020 7:07 [place]oliosis Re sults for this AM PHOTOGRAPHY COORDINATOR procedure are i n the results section. INR Routine 08/14/2020 7:07 [place]oliosis Results for this AM PHOTOGRAPHY COORDINATOR procedure are i n the results section. PARTIAL THROMBOPLASTIN Routine 08/14/2020 7:07 Scoliosis Re sults for this TIME AM PHOTOGRAPHY COORDINATOR procedure are i n the results section. FIBRINOGEN ACTIVITY Routine 08/14/2020 7:07 Scoliosis Resul ts for this AM PHOTOGRAPHY COORDINATOR procedure are i n the results section. CBC WITH PLATELETS Routine 08/14/2020 7:07 [place]osis Result s for this AM PHOTOGRAPHY COORDINATOR procedure are i n the results section. TEG WITHOUT HEPARINASE Routine 08/13/2020 3:11 Scoliosis Re sults for this PM PHOTOGRAPHY COORDINATOR procedure are i n the results section. CBC WITH PLATELETS Timed 08/13/2020 3:11 Scoliosis Result s for this PM PHOTOGRAPHY COORDINATOR procedure are i n the results section. CBC WITH PLATELETS Routine 08/13/2020 7:58 Scoliosis Result s for this AM PHOTOGRAPHY COORDINATOR procedure are i n the results section. INR Timed 08/13/2020 6:49 Scoliosis Results for this AM PHOTOGRAPHY COORDINATOR procedure are i n the results section. PARTIAL THROMBOPLASTIN Timed 08/13/2020 6:49 Scoliosis Re sults for this TIME AM PHOTOGRAPHY COORDINATOR procedure are i n the results section. FIBRINOGEN ACTIVITY Timed 08/13/2020 6:49 Scoliosis Resul ts for this AM PHOTOGRAPHY COORDINATOR procedure are i n the results section. BASIC METABOLIC PANEL Timed 08/13/2020 6:49 Scoliosis Res ults for this AM PHOTOGRAPHY COORDINATOR procedure are i n the results section. CBC WITH PLATELETS Timed 08/13/2020 6:49 Scoliosis AM PHOTOGRAPHY COORDINATOR INR Timed 08/12/2020 7:30 Scoliosis Results for this PM PHOTOGRAPHY COORDINATOR procedure are i n the results section. PARTIAL THROMBOPLASTIN Timed 08/12/2020 7:30 Scoliosis Re sults for this TIME PM PHOTOGRAPHY COORDINATOR procedure are i n the results section. FIBRINOGEN ACTIVITY Timed 08/12/2020 7:30 Scoliosis Resul ts for this PM PHOTOGRAPHY COORDINATOR procedure are i n the results section. CBC WITH PLATELETS Timed 08/12/2020 7:30 Scoliosis Result s for this PM PHOTOGRAPHY COORDINATOR procedure are i n the results section. EKG 12-LEAD, TRACING Routine 08/12/2020 6:42 Resu lts for this ONLY PM PHOTOGRAPHY COORDINATOR procedure are i n the results section. XR THORACIC LUMBAR Routine 08/12/2020 6:07 Result s for this STANDING 2 VIEWS PM PHOTOGRAPHY COORDINATOR procedure a re in the results section. XR BONE SURVEY COMPLETE Routine 08/12/2020 6:06 R esults for this PEDS PM PHOTOGRAPHY COORDINATOR procedure are i n the results section. TEG WITHOUT HEPARINASE Routine 08/12/2020 8:11 Scoliosis Re sults for this AM PHOTOGRAPHY COORDINATOR procedure are i n the results section. INR Timed 08/11/2020 5:22 Scoliosis Results for this PM PHOTOGRAPHY COORDINATOR procedure are i n the results section. PARTIAL THROMBOPLASTIN Timed 08/11/2020 5:22 Scoliosis Re sults for this TIME PM PHOTOGRAPHY COORDINATOR procedure are i n the results section. FIBRINOGEN ACTIVITY Timed 08/11/2020 5:22 Scoliosis Resul ts for this PM PHOTOGRAPHY COORDINATOR procedure are i n the results section. CBC WITH PLATELETS Timed 08/11/2020 5:22 Scoliosis Result s for this PM PHOTOGRAPHY COORDINATOR procedure are i n the results section. TEG WITHOUT HEPARINASE Timed 08/11/2020 10:03 Scoliosis R esults for this AM PHOTOGRAPHY COORDINATOR procedure are i n the results section. INR Timed 08/11/2020 10:03 Scoliosis Results for this AM PHOTOGRAPHY COORDINATOR procedure are i n the results section. PARTIAL THROMBOPLASTIN Timed 08/11/2020 10:03 Scoliosis R esults for this TIME AM PHOTOGRAPHY COORDINATOR procedure are i n the results section. FIBRINOGEN ACTIVITY Timed 08/11/2020 10:03 Scoliosis Resu lts for this AM PHOTOGRAPHY COORDINATOR procedure are i n the results section. CBC WITH PLATELETS Timed 08/11/2020 10:03 Scoliosis Resul ts for this AM PHOTOGRAPHY COORDINATOR procedure are i n the results section. TEG WITHOUT HEPARINASE Timed 08/11/2020 6:09 Scoliosis Re sults for this AM PHOTOGRAPHY COORDINATOR procedure are i n the results section. INR Timed 08/11/2020 6:09 Scoliosis Results for this AM PHOTOGRAPHY COORDINATOR procedure are i n the results section. PARTIAL THROMBOPLASTIN Timed 08/11/2020 6:09 Scoliosis Re sults for this TIME AM PHOTOGRAPHY COORDINATOR procedure are i n the results section. FIBRINOGEN ACTIVITY Timed 08/11/2020 6:09 Scoliosis Resul ts for this AM PHOTOGRAPHY COORDINATOR procedure are i n the results section. CBC WITH PLATELETS Timed 08/11/2020 6:09 Scoliosis Result s for this AM PHOTOGRAPHY COORDINATOR procedure are i n the results section. TEG WITHOUT HEPARINASE Timed 08/10/2020 9:50 Scoliosis Re sults for this PM PHOTOGRAPHY COORDINATOR procedure are i n the results section. INR Timed 08/10/2020 9:50 Scoliosis Results for this PM PHOTOGRAPHY COORDINATOR procedure are i n the results section. PARTIAL THROMBOPLASTIN Timed 08/10/2020 9:50 Scoliosis Re sults for this TIME PM PHOTOGRAPHY COORDINATOR procedure are i n the results section. FIBRINOGEN ACTIVITY Timed 08/10/2020 9:50 Scoliosis Resul ts for this PM PHOTOGRAPHY COORDINATOR procedure are i n the results section. CBC WITH PLATELETS Timed 08/10/2020 9:50 Scoliosis Result s for this PM PHOTOGRAPHY COORDINATOR procedure are i n the results section. TEG WITHOUT HEPARINASE Timed 08/10/2020 4:00 Scoliosis Re sults for this PM PHOTOGRAPHY COORDINATOR procedure are i n the results section. INR Timed 08/10/2020 4:00 Scoliosis Results for this PM PHOTOGRAPHY COORDINATOR procedure are i n the results section. PARTIAL THROMBOPLASTIN Timed 08/10/2020 4:00 Scoliosis Re sults for this TIME PM PHOTOGRAPHY COORDINATOR procedure are i n the results section. FIBRINOGEN ACTIVITY Timed 08/10/2020 4:00 Scoliosis Resul ts for this PM PHOTOGRAPHY COORDINATOR procedure are i n the results section. CBC WITH PLATELETS Timed 08/10/2020 4:00 Scoliosis Result s for this PM PHOTOGRAPHY COORDINATOR procedure are i n the results section. TEG WITHOUT HEPARINASE Timed 08/10/2020 10:00 Scoliosis R esults for this AM PHOTOGRAPHY COORDINATOR procedure are i n the results section. INR Timed 08/10/2020 10:00 Scoliosis Results for this AM PHOTOGRAPHY COORDINATOR procedure are i n the results section. PARTIAL THROMBOPLASTIN Timed 08/10/2020 10:00 Scoliosis R esults for this TIME AM PHOTOGRAPHY COORDINATOR procedure are i n the results section. FIBRINOGEN ACTIVITY Timed 08/10/2020 10:00 Scoliosis Resu lts for this AM PHOTOGRAPHY COORDINATOR procedure are i n the results section. CBC WITH PLATELETS Timed 08/10/2020 10:00 Scoliosis Resul ts for this AM PHOTOGRAPHY COORDINATOR procedure are i n the results section. OPTICAL TRACKING SYSTEM Routine 08/10/2020 7:28 Scoliosi s FUSION SPINE POSTERIOR AM PHOTOGRAPHY COORDINATOR Painful orthopaedi c THORACIC CHILD THREE+ hardware (H) LEVELS TEG WITHOUT HEPARINASE Timed 08/10/2020 4:00 Scoliosis Re sults for this AM PHOTOGRAPHY COORDINATOR procedure are i n the results section. INR Timed 08/10/2020 4:00 Scoliosis Results for this AM PHOTOGRAPHY COORDINATOR procedure are i n the results section. PARTIAL THROMBOPLASTIN Timed 08/10/2020 4:00 Scoliosis Re sults for this TIME AM PHOTOGRAPHY COORDINATOR procedure are i n the results section. FIBRINOGEN ACTIVITY Timed 08/10/2020 4:00 Scoliosis Resul ts for this AM PHOTOGRAPHY COORDINATOR procedure are i n the results section. CBC WITH PLATELETS Timed 08/10/2020 4:00 Scoliosis Result s for this AM PHOTOGRAPHY COORDINATOR procedure are i n the results section. TEG WITHOUT HEPARINASE Timed 08/09/2020 10:00 Scoliosis R esults for this PM PHOTOGRAPHY COORDINATOR procedure are i n the results section. INR Timed 08/09/2020 10:00 Scoliosis Results for this PM PHOTOGRAPHY COORDINATOR procedure are i n the results section. PARTIAL THROMBOPLASTIN Timed 08/09/2020 10:00 Scoliosis R esults for this TIME PM PHOTOGRAPHY COORDINATOR procedure are i n the results section. FIBRINOGEN ACTIVITY Routine 08/09/2020 10:00 Scoliosis Resu lts for this PM PHOTOGRAPHY COORDINATOR procedure are i n the results section. CBC WITH PLATELETS Timed 08/09/2020 10:00 Scoliosis Resul ts for this PM PHOTOGRAPHY COORDINATOR procedure are i n the results section. TEG WITHOUT HEPARINASE Timed 08/09/2020 5:54 Scoliosis Re sults for this PM PHOTOGRAPHY COORDINATOR procedure are i n the results section. INR Timed 08/09/2020 5:45 Scoliosis Results for this PM PHOTOGRAPHY COORDINATOR procedure are i n the results section. PARTIAL THROMBOPLASTIN Timed 08/09/2020 5:45 Scoliosis Re sults for this TIME PM PHOTOGRAPHY COORDINATOR procedure are i n the results section. FIBRINOGEN ACTIVITY Timed 08/09/2020 5:45 Scoliosis Resul ts for this PM PHOTOGRAPHY COORDINATOR procedure are i n the results section. CBC WITH PLATELETS Timed 08/09/2020 5:45 Scoliosis Result s for this PM PHOTOGRAPHY COORDINATOR procedure are i n the results section. MRSA MSSA PCR, NASAL STAT 08/09/2020 2:10 Scoliosis Resu lts for this SWAB PM PHOTOGRAPHY COORDINATOR procedure are i n the results section. TEG WITHOUT HEPARINASE STAT 08/09/2020 1:45 Scoliosis Re sults for this PM PHOTOGRAPHY COORDINATOR procedure are i n the results section. RENAL PANEL STAT 08/09/2020 1:45 Scoliosis Results for this PM PHOTOGRAPHY COORDINATOR procedure are i n the results section. INR STAT 08/09/2020 1:45 Scoliosis Results for this PM PHOTOGRAPHY COORDINATOR procedure are i n the results section. PREALBUMIN STAT 08/09/2020 1:45 Scoliosis Results for this PM PHOTOGRAPHY COORDINATOR procedure are i n the results section. PARTIAL THROMBOPLASTIN STAT 08/09/2020 1:45 Scoliosis Re sults for this TIME PM PHOTOGRAPHY COORDINATOR procedure are i n the results section. MAGNESIUM STAT 08/09/2020 1:45 Scoliosis Results for this PM PHOTOGRAPHY COORDINATOR procedure are i n the results section. IRON AND IRON BINDING Routine 08/09/2020 1:45 Scoliosis Res ults for this CAPACITY PM PHOTOGRAPHY COORDINATOR procedure are i n the results section. FIBRINOGEN ACTIVITY STAT 08/09/2020 1:45 Scoliosis Resul ts for this PM PHOTOGRAPHY COORDINATOR procedure are i n the results section. IONIZED CALCIUM STAT 08/09/2020 1:45 Scoliosis Results f or this PM PHOTOGRAPHY COORDINATOR procedure are i n the results section. CBC WITH PLATELETS STAT 08/09/2020 1:45 Scoliosis Result s for this PM PHOTOGRAPHY COORDINATOR procedure are i n the results section. XR SURGERY ELIER FLUORO Routine 08/09/2020 12:05 R esults for this LESS THAN 5 MIN PM PHOTOGRAPHY COORDINATOR procedure ar e in the results section. TEG WITHOUT HEPARINASE Routine 08/09/2020 11:28 Scoliosis R esults for this AM PHOTOGRAPHY COORDINATOR procedure are i n the results section. INR Routine 08/09/2020 11:28 Scoliosis Results for this AM PHOTOGRAPHY COORDINATOR procedure are i n the results section. PARTIAL THROMBOPLASTIN Routine 08/09/2020 11:28 Scoliosis R esults for this TIME AM PHOTOGRAPHY COORDINATOR procedure are i n the results section. FIBRINOGEN ACTIVITY Routine 08/09/2020 11:28 Scoliosis Resu lts for this AM PHOTOGRAPHY COORDINATOR procedure are i n the results section. CBC WITH PLATELETS Routine 08/09/2020 11:28 Scoliosis Resul ts for this AM PHOTOGRAPHY COORDINATOR procedure are i n the results section. TEG WITHOUT HEPARINASE STAT 08/09/2020 9:50 Scoliosis Re sults for this AM PHOTOGRAPHY COORDINATOR procedure are i n the results section. ARTERIAL PANEL STAT 08/09/2020 9:50 Scoliosis Results fo r this AM PHOTOGRAPHY COORDINATOR procedure are i n the results section. INR STAT 08/09/2020 9:50 Scoliosis Results for this AM PHOTOGRAPHY COORDINATOR procedure are i n the results section. PARTIAL THROMBOPLASTIN STAT 08/09/2020 9:50 Scoliosis Re sults for this TIME AM PHOTOGRAPHY COORDINATOR procedure are i n the results section. FIBRINOGEN ACTIVITY STAT 08/09/2020 9:50 Scoliosis Resul ts for this AM PHOTOGRAPHY COORDINATOR procedure are i n the results section. LABORATORY Routine 08/09/2020 9:00 Scoliosis Results for this MISCELLANEOUS ORDER AM PHOTOGRAPHY COORDINATOR procedur e are in the results section. TEG WITHOUT HEPARINASE STAT 08/09/2020 8:45 Scoliosis Re sults for this AM PHOTOGRAPHY COORDINATOR procedure are i n the results section. ARTERIAL PANEL STAT 08/09/2020 8:45 Scoliosis Results fo r this AM PHOTOGRAPHY COORDINATOR procedure are i n the results section. INR STAT 08/09/2020 8:45 Scoliosis Results for this AM PHOTOGRAPHY COORDINATOR procedure are i n the results section. PARTIAL THROMBOPLASTIN STAT 08/09/2020 8:45 Scoliosis Re sults for this TIME AM PHOTOGRAPHY COORDINATOR procedure are i n the results section. FIBRINOGEN ACTIVITY STAT 08/09/2020 8:45 Scoliosis Resul ts for this AM PHOTOGRAPHY COORDINATOR procedure are i n the results section. CBC WITH PLATELETS STAT 08/09/2020 8:45 Scoliosis Result s for this AM PHOTOGRAPHY COORDINATOR procedure are i n the results section. BLOOD COMPONENT Routine 08/09/2020 7:30 Scoliosis Results f or this AM PHOTOGRAPHY COORDINATOR procedure are i n the results section. BLOOD COMPONENT Routine 08/09/2020 7:30 Scoliosis Results f or this AM PHOTOGRAPHY COORDINATOR procedure are i n the results section. ABO/RH TYPE AND SCREEN STAT 08/09/2020 7:30 Scoliosis Re sults for this AM PHOTOGRAPHY COORDINATOR procedure are i n the results section. GLUCOSE STAT 08/09/2020 7:30 Scoliosis Results for this AM PHOTOGRAPHY COORDINATOR procedure are i n the results section. HCG QUALITATIVE URINE STAT 08/09/2020 7:00 Scoliosis Res ults for this AM PHOTOGRAPHY COORDINATOR procedure are i n the results section. EXPLORE SPINE, REMOVE Routine 08/09/2020 6:48 Scoliosis HARDWARE, COMBINED AM PHOTOGRAPHY COORDINATOR Painful orthopaedic hardware (H) LAB RESULT - HIM SCAN 07/25/2020 12:00 AM PHOTOGRAPHY COORDINATOR documented in this encounter Results Magnesium (10/13/2020 3:50 PM PHOTOGRAPHY COORDINATOR) P athologist Signature Magnesium 2.2 1.6 - 2.3 10/13/2020 [facility] mg/dL 4:40 PM [facility] Specimen Anatomical Collection Method Collection Time Receive d Time (Source) Location / / Volume Laterality Blood specimen 10/13/2020 3:50 PM 021 3:55 (specimen) PHOTOGRAPHY COORDINATOR PM PHOTOGRAPHY COORDINATOR Ed Bartholomew MD LAB - BLOOD ORDERABLES Performing Organization Address City/State/ZIP Code Phon e Number [address] [address] [facility] Phosphorus (10/13/2020 3:50 PM PHOTOGRAPHY COORDINATOR) athologist Signature Phosphorus 4.5 2.5 - 4.5 10/13/2020 [facility] mg/dL 4:40 PM PHOTOGRAPHY COORDINATOR [facility] Specimen Anatomical Collection Method Collection Time Receive d Time (Source) Location / / Volume Laterality Blood specimen 10/13/2020 3:50 PM 021 3:55 (specimen) PHOTOGRAPHY COORDINATOR PM PHOTOGRAPHY COORDINATOR Ed Bartholomew MD LAB - BLOOD ORDERABLES Performing Organization Address City/State/ZIP Code Phon e Number [address] [address] [facility] Parathyroid Hormone Intact (10/13/2020 3:50 PM PHOTOGRAPHY COORDINATOR) athologist [facility] Parathyroid 30 18 - 80 10/14/2020 [facility] Hormone Intact pg/mL 1:47 AM PHOTOGRAPHY COORDINATOR [facility] Specimen Anatomical Collection Method Collection Time Receive d Time (Source) Location / / Volume Laterality Blood specimen 10/13/2020 3:50 PM 021 3:55 (specimen) PHOTOGRAPHY COORDINATOR PM PHOTOGRAPHY COORDINATOR Ed Bartholomew MD LAB - BLOOD ORDERABLES Performing Organization Address City/State/ZIP Code Phon e Number [address] [address] [facility] Bone specific alk phosphatase (10/13/2020 3:50 PM PHOTOGRAPHY COORDINATOR) athologist Signature Bone Spec Alk 22.9 ug/L 10/14/2020 [facility] Phosphatase 5:10 PM PHOTOGRAPHY COORDINATOR [facility] Comment: (Note) INTERPRETIVE INFORMATION: Bone Specific [...] specific alk burt phosphatase result. Performed By: [employer] [address] [place] [address] Electrical Cad Technician: Brandi Dooley MD Specimen Anatomical Collection Method Collection Time Receive d Time (Source) Location / / Volume Laterality Blood specimen 10/13/2020 3:50 PM 021 3:55 (specimen) PHOTOGRAPHY COORDINATOR PM PHOTOGRAPHY COORDINATOR Ed Bartholomew MD LAB - BLOOD ORDERABLES Performing Organization Address [facility] Phon e Number [address] Osteocalcin (10/13/2020 3:50 PM PHOTOGRAPHY COORDINATOR) athologist Signature Osteocalcin 41 11 - 50 10/15/2020 [facility] ng/mL 5:26 PM PHOTOGRAPHY COORDINATOR [facility] Comment: (Note) INTERPRETIVE INFORMATION: Osteocalcin by [facility] In patients with renal failure the osteo calcin result can be elevated, both directly, due to impai red clearance and indirectly, due to renal osteodystrophy. Access complete set of age- and/or gende r-specific reference intervals for this test in the [facility] Test Directory (RunRev). Performed By: [employer] [address] [place] [address] Electrical Cad Technician: Brandi Dooley MD Specimen Anatomical Collection Method Collection Time Receive d Time (Source) Location / / Volume Laterality Blood specimen 10/13/2020 3:50 PM 021 3:55 (specimen) PHOTOGRAPHY COORDINATOR PM PHOTOGRAPHY COORDINATOR Ed Bartholomew MD LAB - BLOOD ORDERABLES Performing Organization Address [facility] Phon e Number [address] N telopeptide cross linked urine (10/13/2020 3:45 PM PHOTOGRAPHY COORDINATOR) athologist Signature N-Telopeptide 41 BCE/mM 10/15/2020 [facility] X-Link Urine 12:27 AM PHOTOGRAPHY COORDINATOR [facility] Comment: (Note) Normal adult female: ??Premenopausal: [...] reference intervals for this test in the [facility] Test Directory (RunRev). Creatinine Ur/Vol 90 mg/dL 10/15/2020 12:27 AM CS T [facility] Comment: (Note) Performed By: [employer] [address] [place] [id number] Electrical Cad Technician: Brandi Dooley MD Specimen Anatomical Collection Method Collection Time Receive d Time (Source) Location / / Volume Laterality Urine specimen 10/13/2020 3:45 PM 021 3:55 (specimen) PHOTOGRAPHY COORDINATOR PM PHOTOGRAPHY COORDINATOR Ed Bartholomew MD LAB - URINE ORDERABLES Performing Organization Address City/State/ZIP Code Phon e Number [facility] [address] [place] [address] [facility] (ABNORMAL) TEG without Heparinase (08/15/2020 8:46 AM PHOTOGRAPHY COORDINATOR) [facility] gist Method Time Signature R time until clot 5.0 5 - 10 08/15/2020 [facility] forms Minute 10:37 AM [facility] K time to spec clot 1.1 1 - 3 08/15/2020 [facility] strength Minute 10:37 AM [facility] Angle rate of clot 63.3 53 - 72 08/15/2020 [facility] strength Degrees 10:37 AM [facility] MA maximum clot 73.6 (H) 50 - 70 mm 08/15/2020 [facility] F strength 10:37 AM [facility] CI hypercoagulation 2.4 0.0 - 3.0 08/15/2020 [facility] index Ratio 10:37 AM [facility] G actual clot 13.9 (H) 4.5 - 11.0 08/15/2020 [facility] Kd/sc 10:37 AM [facility] LY30 lysis at 30 2.2 0 - 8 % 08/15/2020 [facility] F minutes 10:37 AM [facility] LY60 lysis at 60 6.1 0 - 15 % 08/15/2020 [facility] F minutes 10:37 AM [facility] Specimen Anatomical Collection Method Collection Time Receive d Time (Source) Location / / Volume Laterality Blood specimen 08/15/2020 8:46 AM 021 8:47 (specimen) PHOTOGRAPHY COORDINATOR AM PHOTOGRAPHY COORDINATOR Miles Steel MD LAB - BLOOD ORDERABLES Performing Organization Address City/State/ZIP Code Phon e Number [facility] [address] [place] [address] [facility] Partial thromboplastin time (08/15/2020 8:46 AM PHOTOGRAPHY COORDINATOR) P athologist Signature PTT 34 22 - 37 sec 08/15/2020 [facility] 9:13 AM [facility] Specimen Anatomical Collection Method Collection Time Receive d Time (Source) Location / / Volume Laterality Blood specimen 08/15/2020 8:46 AM 021 8:47 (specimen) PHOTOGRAPHY COORDINATOR AM PHOTOGRAPHY COORDINATOR Miles Steel MD LAB - BLOOD ORDERABLES Performing Organization Address City/State/ZIP Code Phon e Number [facility] INR (08/15/2020 8:46 AM PHOTOGRAPHY COORDINATOR) P athologist Signature INR 1.05 0.86 - 1.14 08/15/2020 [facility] 9:12 AM [facility] Specimen Anatomical Collection Method Collection Time Receive d Time (Source) Location / / Volume Laterality Blood specimen 08/15/2020 8:46 AM 021 8:47 (specimen) PHOTOGRAPHY COORDINATOR AM PHOTOGRAPHY COORDINATOR Miles Steel MD LAB - BLOOD ORDERABLES Performing Organization Address City/State/ZIP Code Phon e Number [facility] (ABNORMAL) Fibrinogen activity (08/15/2020 8:46 AM PHOTOGRAPHY COORDINATOR) P athologist Signature Fibrinogen 685 (H) 200 - 420 08/15/2020 [facility] mg/dL 9:12 AM [facility] Specimen Anatomical Collection Method Collection Time Receive d Time (Source) Location / / Volume Laterality Blood specimen 08/15/2020 8:46 AM 021 8:47 (specimen) PHOTOGRAPHY COORDINATOR AM PHOTOGRAPHY COORDINATOR Miles Steel MD LAB - BLOOD ORDERABLES Performing Organization Address City/State/ZIP Code Phon e Number [facility] (ABNORMAL) CBC with platelets (08/15/2020 8:46 AM PHOTOGRAPHY COORDINATOR) [facility] gist Method Time Signature WBC 5.6 4.0 - 11.0 08/15/2020 [facility] 10e9/L 9:03 AM [facility] RBC Count 3.06 (L) 3.8 - 5.2 08/15/2020 [facility] 10e12/L 9:03 AM [facility] Hemoglobin 9.3 (L) 11.7 - 08/15/2020 [facility] OF 15.7 g/dL 9:03 AM [facility] Hematocrit 28.7 (L) 35.0 - 08/15/2020 [facility] OF 47.0 % 9:03 AM [facility] MCV 94 78 - 100 08/15/2020 [facility] OF fl 9:03 AM [facility] MCH 30.4 26.5 - 08/15/2020 [facility] 33.0 pg 9:03 AM [facility] MCHC 32.4 31.5 - 08/15/2020 [facility] OF 36.5 g/dL 9:03 AM [facility] RDW 12.2 10.0 - 08/15/2020 [facility] 15.0 % 9:03 AM [facility] Platelet Count 274 150 - 450 08/15/2020 [facility] 10e9/L 9:03 AM [facility] Specimen Anatomical Collection Method Collection Time Receive d Time (Source) Location / / Volume Laterality Blood specimen 08/15/2020 8:46 AM 021 8:47 (specimen) PHOTOGRAPHY COORDINATOR AM PHOTOGRAPHY COORDINATOR Miles Steel MD LAB - BLOOD ORDERABLES Performing Organization Address City/State/ZIP Code Phon e Number [facility] [address] [place] [address] [facility] (ABNORMAL) TEG without Heparinase (08/14/2020 7:07 AM PHOTOGRAPHY COORDINATOR) Patholo gist Method Time Signature R time until clot 3.8 (L) 5 - 10 08/14/2020 [facility] OF forms Minute 10:05 AM [facility] K time to spec clot 0.9 (L) 1 - 3 08/14/2020 [facility] Y OF strength Minute 10:05 AM [facility] Angle rate of clot 77.5 (H) 53 - 72 08/14/2020 [facility] OF strength Degrees 10:05 AM [facility] MA maximum clot 72.8 (H) 50 - 70 mm 08/14/2020 [facility]ITY O F strength 10:05 AM [facility] CI hypercoagulation 4.2 (H) 0.0 - 3.0 08/14/2020 [facility]IT Y OF index Ratio 10:05 AM [facility] G actual clot 13.4 (H) 4.5 - 11.0 08/14/2020 [facility] Kd/sc 10:05 AM [facility] LY30 lysis at 30 3.3 0 - 8 % 08/14/2020 [facility] minutes 10:05 AM [facility] LY60 lysis at 60 7.5 0 - 15 % 08/14/2020 [facility] minutes 10:05 AM [facility] Specimen Anatomical Collection Method Collection Time Receive d Time (Source) Location / / Volume Laterality Blood specimen 08/14/2020 7:07 AM 021 7:08 (specimen) PHOTOGRAPHY COORDINATOR AM PHOTOGRAPHY COORDINATOR Ronald Crawford MD LAB - BLOOD ORDERABLES Performing Organization Address City/[facility] Code Phon e Number [facility] [address] [place] [address] [facility] Partial thromboplastin time (08/14/2020 7:07 AM PHOTOGRAPHY COORDINATOR) P athologist Signature PTT 30 22 - 37 sec 08/14/2020 [facility] 7:28 AM [facility] Specimen Anatomical Collection Method Collection Time Receive d Time (Source) Location / / Volume Laterality Blood specimen 08/14/2020 7:07 AM 021 7:08 (specimen) PHOTOGRAPHY COORDINATOR AM PHOTOGRAPHY COORDINATOR Yuniel Kilgore MD LAB - BLOOD ORDERABLES Performing Organization Address City/State/ZIP Code Phon e Number [address] [address] [facility] INR (08/14/2020 7:07 AM PHOTOGRAPHY COORDINATOR) P athologist Signature INR 0.98 0.86 - 1.14 08/14/2020 [facility] 7:27 AM [facility] Specimen Anatomical Collection Method Collection Time Receive d Time (Source) Location / / Volume Laterality Blood specimen 08/14/2020 7:07 AM 021 7:08 (specimen) PHOTOGRAPHY COORDINATOR AM PHOTOGRAPHY COORDINATOR Yuniel Kilgore MD LAB - BLOOD ORDERABLES Performing Organization Address City/[facility]/ZIP Code Phon e Number [address] [address] [facility] (ABNORMAL) Fibrinogen activity (08/14/2020 7:07 AM PHOTOGRAPHY COORDINATOR) athologist Signature Fibrinogen 603 (H) 200 - 420 08/14/2020 [facility] mg/dL 7:27 AM [facility] Specimen Anatomical Collection Method Collection Time Receive d Time (Source) Location / / Volume Laterality Blood specimen 08/14/2020 7:07 AM 021 7:08 (specimen) PHOTOGRAPHY COORDINATOR AM PHOTOGRAPHY COORDINATOR Yuniel Kilgore MD LAB - BLOOD ORDERABLES Performing Organization Address City/State/ZIP Code Phon e Number [address] [address] [facility] (ABNORMAL) CBC with platelets (08/14/2020 7:07 AM PHOTOGRAPHY COORDINATOR) [facility] Method Time Signature WBC 6.5 4.0 - 11.0 08/14/2020 [facility] 10e9/L 7:13 AM [facility] RBC Count 2.99 (L) 3.8 - 5.2 08/14/2020 [facility] 10e12/L 7:13 AM [facility] Hemoglobin 9.1 (L) 11.7 - 08/14/2020 [facility] 15.7 g/dL 7:13 AM [facility] Hematocrit 28.2 (L) 35.0 - 08/14/2020 [facility] 47.0 % 7:13 AM [facility] MCV 94 78 - 100 08/14/2020 [facility] OF fl 7:13 AM [facility] MCH 30.4 26.5 - 08/14/2020 [facility] 33.0 pg 7:13 AM [facility] MCHC 32.3 31.5 - 08/14/2020 [facility] 36.5 g/dL 7:13 AM [facility] RDW 12.4 10.0 - 08/14/2020 [facility] 15.0 % 7:13 AM [facility] Platelet Count 242 150 - 450 08/14/2020 [facility] 10e9/L 7:13 AM [facility] Specimen Anatomical Collection Method Collection Time Receive d Time (Source) Location / / Volume Laterality Blood specimen 08/14/2020 7:07 AM 021 7:08 (specimen) PHOTOGRAPHY COORDINATOR AM PHOTOGRAPHY COORDINATOR Yuniel Kilgore MD LAB - BLOOD ORDERABLES Performing Organization Address City/State/ZIP Code Phon e Number [facility] [address] [place] [address] [facility] (ABNORMAL) TEG without Heparinase (08/13/2020 3:11 PM PHOTOGRAPHY COORDINATOR) [facility]ist Method Time Signature R time until clot 2.8 (L) 5 - 10 08/13/2020 [facility] OF forms Minute 5:47 PM [facility] K time to spec clot 0.8 (L) 1 - 3 08/13/2020 [facility]IT Y OF strength Minute 5:47 PM [facility] Angle rate of clot 79.6 (H) 53 - 72 08/13/2020 [facility] OF strength Degrees 5:47 PM [facility] MA maximum clot 71.0 (H) 50 - 70 mm 08/13/2020 [facility]ITY O F strength 5:47 PM [facility] CI hypercoagulation 4.8 (H) 0.0 - 3.0 08/13/2020 [facility]IT Y OF index Ratio 5:47 PM [facility] G actual clot 12.3 (H) 4.5 - 11.0 08/13/2020 [facility] OF strength Kd/sc 5:47 PM [facility] LY30 lysis at 30 2.4 0 - 8 % 08/13/2020 [facility] O F minutes 5:47 PM [facility] LY60 lysis at 60 5.7 0 - 15 % 08/13/2020 [facility] O F minutes 5:47 PM [facility] Specimen Anatomical Collection Method Collection Time Receive d Time (Source) Location / / Volume Laterality 08/13/2020 3:11 PM 3:12 PHOTOGRAPHY COORDINATOR PM PHOTOGRAPHY COORDINATOR Yuniel Kilgore MD LAB - BLOOD ORDERABLES Performing Organization Address City/State/ZIP Code Phon e Number [facility] [address] [place] [address] [facility] (ABNORMAL) CBC with platelets (08/13/2020 3:11 PM PHOTOGRAPHY COORDINATOR) [facility] gist Method Time Signature WBC 7.0 4.0 - 11.0 08/13/2020 [facility] 10e9/L 3:19 PM [facility] RBC Count 3.24 (L) 3.8 - 5.2 08/13/2020 [facility] 10e12/L 3:19 PM [facility] Hemoglobin 9.9 (L) 11.7 - 08/13/2020 [facility] 15.7 g/dL 3:19 PM [facility] Hematocrit 31.1 (L) 35.0 - 08/13/2020 [facility] OF 47.0 % 3:19 PM [facility] MCV 96 78 - 100 08/13/2020 UN[facility]ERSITY fl 3:19 PM [facility] MCH 30.6 26.5 - 08/13/2020 [facility] OF 33.0 pg 3:19 PM [facility] MCHC 31.8 31.5 - 08/13/2020 [facility] OF 36.5 g/dL 3:19 PM [facility] RDW 12.3 10.0 - 08/13/2020 [facility] 15.0 % 3:19 PM [facility] Platelet Count 238 150 - 450 08/13/2020 [facility] 10e9/L 3:19 PM [facility] Specimen Anatomical Collection Method Collection Time Receive d Time (Source) Location / / Volume Laterality Blood specimen 08/13/2020 3:11 PM 021 3:12 (specimen) PHOTOGRAPHY COORDINATOR PM PHOTOGRAPHY COORDINATOR Yuniel Kilgore MD LAB - BLOOD ORDERABLES Performing Organization Address City/State/ZIP Code Phon e Number [address] [address] [facility] (ABNORMAL) CBC with platelets (08/13/2020 7:58 AM PHOTOGRAPHY COORDINATOR) Patholo gist Method Time Signature WBC 6.5 4.0 - 11.0 08/13/2020 [facility] 10e9/L 8:06 AM [facility] RBC Count 2.72 (L) 3.8 - 5.2 08/13/2020 [facility] 10e12/L 8:06 AM [facility] Hemoglobin 8.2 (L) 11.7 - 08/13/2020 [facility] OF 15.7 g/dL 8:06 AM [facility] Hematocrit 25.4 (L) 35.0 - 08/13/2020 [facility] OF 47.0 % 8:06 AM [facility] MCV 93 78 - 100 08/13/2020 [facility] OF fl 8:06 AM [facility] MCH 30.1 26.5 - 08/13/2020 [facility] OF 33.0 pg 8:06 AM [facility] MCHC 32.3 31.5 - 08/13/2020 [facility] OF 36.5 g/dL 8:06 AM [facility] RDW 12.3 10.0 - 08/13/2020 [facility] OF 15.0 % 8:06 AM [facility] Platelet Count 190 150 - 450 08/13/2020 [facility] 10e9/L 8:06 AM [facility] Specimen Anatomical Collection Method Collection Time Receive d Time (Source) Location / / Volume Laterality 08/13/2020 7:58 AM 8:02 PHOTOGRAPHY COORDINATOR AM PHOTOGRAPHY COORDINATOR Eleanor Dooley MD LAB - BLOOD ORDERABLES Performing Organization Address City/State/ZIP Code Phon e Number [address] [address] [facility] Partial thromboplastin time (08/13/2020 6:49 AM PHOTOGRAPHY COORDINATOR) P athologist Signature PTT 34 22 - 37 sec 08/13/2020 [facility] 7:21 AM [facility] Specimen Anatomical Collection Method Collection Time Receive d Time (Source) Location / / Volume Laterality 08/13/2020 6:49 AM 1 7:02 PHOTOGRAPHY COORDINATOR AM PHOTOGRAPHY COORDINATOR Sinziana Cornea DO LAB - BLOOD ORDERABLES Performing Organization Address City/[facility]/ZIP Code Phon e Number [address] [address] [facility] INR (08/13/2020 6:49 AM PHOTOGRAPHY COORDINATOR) P athologist Signature INR 1.05 0.86 - 1.14 08/13/2020 [facility] 7:20 AM [facility] Specimen Anatomical Collection Method Collection Time Receive d Time (Source) Location / / Volume Laterality 08/13/2020 6:49 AM 7:02 PHOTOGRAPHY COORDINATOR AM PHOTOGRAPHY COORDINATOR Sinziana Cornea DO LAB - BLOOD ORDERABLES Performing Organization Address City/[facility]/ZIP Code Phon e Number [place] [id number] [facility] (ABNORMAL) Fibrinogen activity (08/13/2020 6:49 AM PHOTOGRAPHY COORDINATOR) P athologist Signature Fibrinogen 642 (H) 200 - 420 08/13/2020 [facility] OF mg/dL 7:20 AM [facility] Specimen Anatomical Collection Method Collection Time Receive d Time (Source) Location / / Volume Laterality 08/13/2020 6:49 AM 1 7:02 PHOTOGRAPHY COORDINATOR AM PHOTOGRAPHY COORDINATOR Sinziana Cornea DO LAB - BLOOD ORDERABLES Performing Organization Address City/[facility]/ZIP Code Phon e Number [address] [address] [facility] (ABNORMAL) Basic metabolic panel (08/13/2020 6:49 AM PHOTOGRAPHY COORDINATOR) Analysis Performed At Patho logist Time Signature Sodium 142 133 - 144 08/13/2020 [facility] OF mmol/L 7:19 AM [facility] Potassium 3.3 (L) 3.4 - 5.3 08/13/2020 [facility] OF mmol/L 7:19 AM [facility] Chloride 109 96 - 110 08/13/2020 [facility] OF mmol/L 7:19 AM [facility] Carbon Dioxide 27 20 - 32 08/13/2020 [place] mmol/L 7:26 AM [facility] Anion Gap 6 3 - 14 08/13/2020 [place] mmol/L 7:26 AM [facility] Glucose 88 70 - 99 08/13/2020 [place] mg/dL 7:26 AM [facility] Urea Nitrogen 6 (L) 7 - 30 08/13/2020 [place] mg/dL 7:26 AM [facility] Creatinine 0.52 0.50 - 08/13/2020 [place] 1.00 mg/dL 7:26 AM [facility] GFR Estimate >90 >60 08/13/2020 [place] mL/min/{1. 7:26 AM [facility] 73_m2} HOSPITAL Comment: Non GFR Calc Starting 07/22/2018, serum creatinine ba sed estimated GFR (eGFR) will be calculated using the Chronic Kidney Dise [facility] Epidemiology Collaboration (CKD-EPI) equation. GFR Estimate If >90 >60 mL/min/{1.73_m2} 08/13/2020 7: 26 AM [facility] Comment: GFR Calc Starting 07/22/2018, serum creatinine ba sed estimated GFR (eGFR) will be calculated using the Chronic Kidney Dise [facility] Epidemiology Collaboration (CKD-EPI) equation. Calcium 8.3 (L) 8.5 - 10.1 mg/dL 08/13/2020 7:26 AM [facility] Specimen Anatomical Collection Method Collection Time Receive d Time (Source) Location / / Volume Laterality Blood specimen 08/13/2020 6:49 AM 021 7:02 (specimen) PHOTOGRAPHY COORDINATOR AM [facility] Yuniel Kilgore MD LAB - BLOOD ORDERABLES Performing Organization Address City/State/ZIP Code Phon e Number [facility] [address] [address] [phone] [place] [address] [facility] [address] [address], [facility] [phone] Partial thromboplastin time (08/12/2020 7:30 PM PHOTOGRAPHY COORDINATOR) P athologist Signature PTT 30 22 - 37 sec 08/12/2020 [facility] 7:48 PM [facility] Specimen Anatomical Collection Method Collection Time Receive d Time (Source) Location / / Volume Laterality Blood specimen 08/12/2020 7:30 PM 021 7:31 (specimen) PHOTOGRAPHY COORDINATOR PM PHOTOGRAPHY COORDINATOR Sinziana Cornea DO LAB - BLOOD ORDERABLES Performing Organization Address City/[facility]/ZIP Code Phon e Number [place] [phone] [facility] INR (08/12/2020 7:30 PM PHOTOGRAPHY COORDINATOR) P athologist Signature INR 0.99 0.86 - 1.14 08/12/2020 [facility] 7:47 PM [facility] Specimen Anatomical Collection Method Collection Time Receive d Time (Source) Location / / Volume Laterality Blood specimen 08/12/2020 7:30 PM 021 7:31 (specimen) PHOTOGRAPHY COORDINATOR PM PHOTOGRAPHY COORDINATOR [facility] DO LAB - BLOOD ORDERABLES Performing Organization Address City/[facility]/ZIP Code Phon e Number [address] [address] [facility] (ABNORMAL) Fibrinogen activity (08/12/2020 7:30 PM PHOTOGRAPHY COORDINATOR) P athologist Signature Fibrinogen 625 (H) 200 - 420 08/12/2020 [facility] mg/dL 7:48 PM [facility] Specimen Anatomical Collection Method Collection Time Receive d Time (Source) Location / / Volume Laterality Blood specimen 08/12/2020 7:30 PM 021 7:31 (specimen) PHOTOGRAPHY COORDINATOR PM PHOTOGRAPHY COORDINATOR Sinziana Cornea DO LAB - BLOOD ORDERABLES Performing Organization Address City/[facility]/ZIP Code Phon e Number [place] [phone] [facility] (ABNORMAL) CBC with platelets (08/12/2020 7:30 PM PHOTOGRAPHY COORDINATOR) [facility] gist Method Time Signature WBC 9.9 4.0 - 11.0 08/12/2020 [facility] 10e9/L 7:39 PM [facility] RBC Count 3.39 (L) 3.8 - 5.2 08/12/2020 [facility] 10e12/L 7:39 PM [facility] Hemoglobin 10.4 (L) 11.7 - 08/12/2020 [facility] 15.7 g/dL 7:39 PM [facility] Hematocrit 31.8 (L) 35.0 - 08/12/2020 [facility] 47.0 % 7:39 PM [facility] MCV 94 78 - 100 08/12/2020 [facility] fl 7:39 PM [facility] MCH 30.7 26.5 - 08/12/2020 [facility] 33.0 pg 7:39 PM [facility] MCHC 32.7 31.5 - 08/12/2020 [facility] 36.5 g/dL 7:39 PM [facility] RDW 12.1 10.0 - 08/12/2020 [facility] 15.0 % 7:39 PM [facility] Platelet Count 224 150 - 450 08/12/2020 [facility] 10e9/L 7:39 PM [facility] Specimen Anatomical Collection Method Collection Time Receive d Time (Source) Location / / Volume Laterality Blood specimen 08/12/2020 7:30 PM 021 7:31 (specimen) PHOTOGRAPHY COORDINATOR PM PHOTOGRAPHY COORDINATOR Vivi Cornea DO LAB - BLOOD ORDERABLES Performing Organization Address City/[facility]/ZIP Code Phon e Number [facility] [address] [place] [address] [facility] EKG 12-lead, complete (08/12/2020 6:42 PM PHOTOGRAPHY COORDINATOR) [facility] gist Method Time Signature Interpretation ECG Click View RADIOLOGY Image link RESULTS to view waveform and result Specimen (Source) Anatomical Collection Method Collection Time Re ceived Time Location / / Volume Laterality 08/12/2020 6:42 PM PHOTOGRAPHY COORDINATOR Sinziana Cornea DO ECG ORDERABLES Performing Organization Address City/[facility]/ZIP Code Phon e Number RADIOLOGY RESULTS XR Thoracic Lumbar Standing 2 Views (08/12/2020 6:07 PM PHOTOGRAPHY COORDINATOR) Anatomical Region Laterality Modality C-spine, T-spine, L-spine Computed Radio graphy Specimen (Source) Anatomical Location Collection Method / Collectio n Time Received Time / Laterality Volume Impressions 08/12/2020 6:42 PM PHOTOGRAPHY COORDINATOR IMPRESSION: No change status post thoracolumbar fixation. No other bony abnormality identified. PREET DIAZ MD Narrative 08/12/2020 6:42 PM PHOTOGRAPHY COORDINATOR XR BONE SURVEY COMPLETE PEDS, XR THORACIC [...] Bone Survey Complete Peds (08/12/2020 6:06 PM PHOTOGRAPHY COORDINATOR) Anatomical Region Laterality Modality C-spine, T-spine, L-spine, Neck, Arm, Forearm, Thigh, Bilate ral Computed Radiography Leg, Abdomen/Pelvis Specimen (Source) Anatomical Location Collection Method / Collectio n Time Received Time / Laterality Volume Impressions 08/12/2020 6:42 PM PHOTOGRAPHY COORDINATOR IMPRESSION: No change status post thoracolumbar fixation. No other bony abnormality identified. PREET DIAZ MD Narrative 08/12/2020 6:42 PM PHOTOGRAPHY COORDINATOR XR BONE SURVEY COMPLETE PEDS, XR THORACIC [...] other bony abnormality identified. PREET DIAZ MD Sinmaria tana Cornea DO IMG DIAGNOSTIC IMAGING ORDER [place] (ABNORMAL) TEG without Heparinase (08/12/2020 8:11 AM PHOTOGRAPHY COORDINATOR) Patholo gist Method Time Signature R time until clot 4.4 (L) 5 - 10 08/12/2020 [facility] forms Minute 9:47 AM [facility] K time to spec clot 1.1 1 - 3 08/12/2020 [facility]IT Y OF strength Minute 9:47 AM [facility] Angle rate of clot 74.9 (H) 53 - 72 08/12/2020 [facility] Degrees 9:47 AM [facility] MA maximum clot 71.6 (H) 50 - 70 mm 08/12/2020 UN[facility]ITY O F strength 9:47 AM [facility] CI hypercoagulation 3.4 (H) 0.0 - 3.0 08/12/2020 [facility]IT Y OF index Ratio 9:47 AM [facility] G actual clot 12.6 (H) 4.5 - 11.0 08/12/2020 UN[facility]ITY [facility] Kd/sc 9:47 AM [facility] LY30 lysis at 30 2.8 0 - 8 % 08/12/2020 [facility]ITY O F minutes 9:47 AM [facility] LY60 lysis at 60 6.9 0 - 15 % 08/12/2020 [facility] minutes 9:47 AM [facility] Specimen Anatomical Collection Method Collection Time Receive d Time (Source) Location / / Volume Laterality Blood specimen 08/12/2020 8:11 AM 021 8:12 (specimen) PHOTOGRAPHY COORDINATOR AM PHOTOGRAPHY COORDINATOR Sinziana Cornea DO LAB - BLOOD ORDERABLES Performing Organization Address City/State/ZIP Code Phon e Number [facility] [address] [place] [address] [facility] Partial thromboplastin time (08/11/2020 5:22 PM PHOTOGRAPHY COORDINATOR) athologist Signature PTT 36 22 - 37 sec 08/11/2020 [facility] 5[facility]38 PM [facility] Specimen Anatomical Collection Method Collection Time Receive d Time (Source) Location / / Volume Laterality Blood specimen 08/11/2020 5:22 PM 021 5:23 (specimen) PHOTOGRAPHY COORDINATOR PM PHOTOGRAPHY COORDINATOR Sinziana Cornea DO LAB - BLOOD ORDERABLES Performing Organization Address City/State/ZIP Code Phon e Number [facility] (ABNORMAL) CBC with platelets (08/11/2020 5:22 PM PHOTOGRAPHY COORDINATOR) Patholo gist Method Time Signature WBC 11.6 (H) 4.0 - 11.0 08/11/2020 [facility] 10e9/L 5:29 PM [facility] RBC Count 3.46 (L) 3.8 - 5.2 08/11/2020 [facility] 10e12/L 5:29 PM [facility] Hemoglobin 10.6 (L) 11.7 - 08/11/2020 [facility] 15.7 g/dL 5:29 PM [facility] Hematocrit 32.6 (L) 35.0 - 08/11/2020 [facility] 47.0 % 5:29 PM [facility] MCV 94 78 - 100 08/11/2020 [facility] OF fl 5:29 PM [facility] MCH 30.6 26.5 - 08/11/2020 [facility] 33.0 pg 5:29 PM [facility] MCHC 32.5 31.5 - 08/11/2020 [facility] 36.5 g/dL 5:29 PM [facility] RDW 12.2 10.0 - 08/11/2020 [facility] 15.0 % 5:29 PM [facility] Platelet Count 209 150 - 450 08/11/2020 [facility] 10e9/L 5:29 PM [facility] Specimen Anatomical Collection Method Collection Time Receive d Time (Source) Location / / Volume Laterality Blood specimen 08/11/2020 5:22 PM 021 5:23 (specimen) PHOTOGRAPHY COORDINATOR PM PHOTOGRAPHY COORDINATOR Sinziana Cornea DO LAB - BLOOD ORDERABLES Performing Organization Address City/State/ZIP Code Phon e Number [facility] [address] [place] [address] [place] (ABNORMAL) Fibrinogen activity (08/11/2020 5:22 PM PHOTOGRAPHY COORDINATOR) P athologist Signature Fibrinogen 564 (H) 200 - 420 08/11/2020 [facility] mg/dL 5:38 PM PHOTOGRAPHY COORDINATOR [facility] Specimen Anatomical Collection Method Collection Time Receive d Time (Source) Location / / Volume Laterality Blood specimen 08/11/2020 5:22 PM 021 5:23 (specimen) PHOTOGRAPHY COORDINATOR PM PHOTOGRAPHY COORDINATOR Sinziana Cornea DO LAB - BLOOD ORDERABLES Performing Organization Address City/State/ZIP Code Phon e Number [facility] (ABNORMAL) INR (08/11/2020 5:22 PM PHOTOGRAPHY COORDINATOR) P athologist Signature INR 1.21 (H) 0.86 - 1.14 08/11/2020 [facility] 5:38 PM PHOTOGRAPHY COORDINATOR [facility] Specimen Anatomical Collection Method Collection Time Receive d Time (Source) Location / / Volume Laterality Blood specimen 08/11/2020 5:22 PM 021 5:23 (specimen) PHOTOGRAPHY COORDINATOR PM PHOTOGRAPHY COORDINATOR Sinziana Cornea DO LAB - BLOOD ORDERABLES Performing Organization Address City/State/ZIP Code Phon e Number [facility] U [facility] (ABNORMAL) Fibrinogen activity (08/11/2020 10:03 AM PHOTOGRAPHY COORDINATOR) P athologist Signature Fibrinogen 515 (H) 200 - 420 08/11/2020 [facility] mg/dL 10:50 AM [facility] Specimen Anatomical Collection Method Collection Time Receive d Time (Source) Location / / Volume Laterality Blood specimen 08/11/2020 10:03 1 (specimen) AM PHOTOGRAPHY COORDINATOR 10:04 AM PHOTOGRAPHY COORDINATOR Marli Limon MD LAB - BLOOD ORDERABLES Performing Organization Address City/State/ZIP Code Phon e Number [place] [id number] [place] [address] [facility] (ABNORMAL) TEG without Heparinase (08/11/2020 10:03 AM PHOTOGRAPHY COORDINATOR) Patholo gist Method Time Signature R time until clot 5.1 5 - 10 08/11/2020 [facility] forms Minute 12:47 PM [facility] K time to spec clot 1.1 1 - 3 08/11/2020 [facility] OF strength Minute 12:47 PM [facility] Angle rate of clot 72.6 (H) 53 - 72 08/11/2020 [facility] strength Degrees 12:47 PM [facility] MA maximum clot 68.4 50 - 70 mm 08/11/2020 [facility] F strength 12:47 PM [facility] CI hypercoagulation 2.4 0.0 - 3.0 08/11/2020 [facility] OF index Ratio 12:47 PM [facility] G actual clot 10.8 4.5 - 11.0 08/11/2020 [facility] Kd/sc 12:47 PM [facility] LY30 lysis at 30 4.3 0 - 8 % 08/11/2020 [facility] minutes 12:47 PM [facility] LY60 lysis at 60 8.2 0 - 15 % 08/11/2020 [facility] F minutes 12:47 PM [facility] Specimen Anatomical Collection Method Collection Time Receive d Time (Source) Location / / Volume Laterality Blood specimen 08/11/2020 10:03 1 (specimen) AM PHOTOGRAPHY COORDINATOR 10:04 AM PHOTOGRAPHY COORDINATOR Marli Lmion MD LAB - BLOOD ORDERABLES Performing Organization Address City/State/ZIP Code Phon e Number [facility] [address] [place] [address] [facility] Partial thromboplastin time (08/11/2020 10:03 AM PHOTOGRAPHY COORDINATOR) P athologist Signature PTT 37 22 - 37 sec 08/11/2020 [facility] 10:50 AM [facility] Specimen Anatomical Collection Method Collection Time Receive d Time (Source) Location / / Volume Laterality Blood specimen 08/11/2020 10:03 1 (specimen) AM PHOTOGRAPHY COORDINATOR 10:04 AM PHOTOGRAPHY COORDINATOR Marli Limon MD LAB - BLOOD ORDERABLES Performing Organization Address City/State/ZIP Code Phon e Number [facility] [address] [place] [address] [facility] (ABNORMAL) INR (08/11/2020 10:03 AM PHOTOGRAPHY COORDINATOR) P athologist Signature INR 1.24 (H) 0.86 - 1.14 08/11/2020 [facility] 10:50 AM [facility] Specimen Anatomical Collection Method Collection Time Receive d Time (Source) Location / / Volume Laterality Blood specimen 08/11/2020 10:03 (specimen) AM PHOTOGRAPHY COORDINATOR 10:04 AM PHOTOGRAPHY COORDINATOR Marli Limon MD LAB - BLOOD ORDERABLES Performing Organization Address City/State/ZIP Code Phon e Number [place] [id number] [place] [address] [facility] (ABNORMAL) CBC with platelets (08/11/2020 10:03 AM PHOTOGRAPHY COORDINATOR) Patholo gist Method Time Signature WBC 11.1 (H) 4.0 - 11.0 08/11/2020 [facility] 10e9/L 10:42 AM [facility] RBC Count 3.51 (L) 3.8 - 5.2 08/11/2020 [facility] 10e12/L 10:42 AM [facility] Hemoglobin 10.6 (L) 11.7 - 08/11/2020 [facility] 15.7 g/dL 10:42 AM [facility] Hematocrit 32.8 (L) 35.0 - 08/11/2020 [facility] 47.0 % 10:42 AM [facility] MCV 93 78 - 100 08/11/2020 [facility] fl 10:42 AM [facility] MCH 30.2 26.5 - 08/11/2020 [facility] 33.0 pg 10:42 AM [facility] MCHC 32.3 31.5 - 08/11/2020 [facility] 36.5 g/dL 10:42 AM [facility] RDW 12.3 10.0 - 08/11/2020 [facility] 15.0 % 10:42 AM [facility] Platelet Count 210 150 - 450 08/11/2020 [facility] 10e9/L 10:42 AM PHOTOGRAPHY COORDINATOR [facility] Specimen Anatomical Collection Method Collection Time Receive d Time (Source) Location / / Volume Laterality Blood specimen 08/11/2020 10:03 1 (specimen) AM PHOTOGRAPHY COORDINATOR 10:04 AM PHOTOGRAPHY COORDINATOR Marli Limon MD LAB - BLOOD ORDERABLES Performing Organization Address City/State/ZIP Code Phon e Number [facility] [address] [place] [address] [facility] (ABNORMAL) Fibrinogen activity (08/11/2020 6:09 AM PHOTOGRAPHY COORDINATOR) P athologist Signature Fibrinogen 486 (H) 200 - 420 08/11/2020 [facility] mg/dL 6:33 AM [facility] Specimen Anatomical Collection Method Collection Time Receive d Time (Source) Location / / Volume Laterality Blood specimen 08/11/2020 6:09 AM 021 6:10 (specimen) PHOTOGRAPHY COORDINATOR AM PHOTOGRAPHY COORDINATOR Marli Limon MD LAB - BLOOD ORDERABLES Performing Organization Address City/State/ZIP Code Phon e Number [facility] (ABNORMAL) TEG without Heparinase (08/11/2020 6:09 AM PHOTOGRAPHY COORDINATOR) Patholo gist Method Time Signature R time until clot 4.7 (L) 5 - 10 08/11/2020 [facility] forms Minute 7:39 AM [facility] K time to spec clot 1.1 1 - 3 08/11/2020 [facility] OF strength Minute 7:39 AM [facility] Angle rate of clot 73.3 (H) 53 - 72 08/11/2020 [facility] strength Degrees 7:39 AM [facility] MA maximum clot 69.6 50 - 70 mm 08/11/2020 [facility] F strength 7:39 AM [facility] CI hypercoagulation 2.8 0.0 - 3.0 08/11/2020 [facility] OF index Ratio 7:39 AM [facility] G actual clot 11.5 (H) 4.5 - 11.0 08/11/2020 [facility] strength Kd/sc 7:39 AM [facility] LY30 lysis at 30 2.8 0 - 8 % 08/11/2020 [facility] minutes 7:39 AM [facility] LY60 lysis at 60 7.1 0 - 15 % 08/11/2020 [facility] minutes 7:39 AM [facility] Specimen Anatomical Collection Method Collection Time Receive d Time (Source) Location / / Volume Laterality Blood specimen 08/11/2020 6:09 AM 021 6:10 (specimen) PHOTOGRAPHY COORDINATOR AM PHOTOGRAPHY COORDINATOR Marli Limon MD LAB - BLOOD ORDERABLES Performing Organization Address City/State/ZIP Code Phon e Number [facility] [address] [place] [address] [facility] Partial thromboplastin time (08/11/2020 6:09 AM PHOTOGRAPHY COORDINATOR) P athologist Signature PTT 34 22 - 37 sec 08/11/2020 [facility] 6:33 AM [facility] Specimen Anatomical Collection Method Collection Time Receive d Time (Source) Location / / Volume Laterality Blood specimen 08/11/2020 6:09 AM 6:10 (specimen) PHOTOGRAPHY COORDINATOR AM PHOTOGRAPHY COORDINATOR Marli Limon MD LAB - BLOOD ORDERABLES Performing Organization Address City/State/ZIP Code Phon e Number [facility] (ABNORMAL) INR (08/11/2020 6:09 AM PHOTOGRAPHY COORDINATOR) P athologist Signature INR 1.27 (H) 0.86 - 1.14 08/11/2020 [facility] 6:32 AM [facility] Specimen Anatomical Collection Method Collection Time Receive d Time (Source) Location / / Volume Laterality Blood specimen 08/11/2020 6:09 AM 021 6:10 (specimen) PHOTOGRAPHY COORDINATOR AM PHOTOGRAPHY COORDINATOR Marli Limon MD LAB - BLOOD ORDERABLES Performing Organization Address City/State/ZIP Code Phon e Number [facility] (ABNORMAL) CBC with platelets (08/11/2020 6:09 AM PHOTOGRAPHY COORDINATOR) Patholo gist Method Time Signature WBC 12.5 (H) 4.0 - 11.0 08/11/2020 [facility] 10e9/L 6:23 AM [facility] RBC Count 3.56 (L) 3.8 - 5.2 08/11/2020 [facility] 10e12/L 6:23 AM [facility] Hemoglobin 10.9 (L) 11.7 - 08/11/2020 [facility] 15.7 g/dL 6:23 AM [facility] Hematocrit 33.6 (L) 35.0 - 08/11/2020 [facility] 47.0 % 6:23 AM [facility] MCV 94 78 - 100 08/11/2020 [facility] fl 6:23 AM [facility] MCH 30.6 26.5 - 08/11/2020 [facility] 33.0 pg 6:23 AM [facility] MCHC 32.4 31.5 - 08/11/2020 [facility] 36.5 g/dL 6:23 AM [facility] RDW 12.2 10.0 - 08/11/2020 [facility] 15.0 % 6:23 AM [facility] Platelet Count 199 150 - 450 08/11/2020 [facility] 10e9/L 6:23 AM [facility] Specimen Anatomical Collection Method Collection Time Receive d Time (Source) Location / / Volume Laterality Blood specimen 08/11/2020 6:09 AM 021 6:10 (specimen) PHOTOGRAPHY COORDINATOR AM PHOTOGRAPHY COORDINATOR Marli Limon MD LAB - BLOOD ORDERABLES Performing Organization Address City/[facility]/ZIP Code Phon e Number [address] [address] [facility] Fibrinogen activity (08/10/2020 9:50 PM PHOTOGRAPHY COORDINATOR) P athologist Signature Fibrinogen 403 200 - 420 08/10/2020 [facility] mg/dL 10:41 PM [facility] Specimen Anatomical Collection Method Collection Time Receive d Time (Source) Location / / Volume Laterality Blood specimen 08/10/2020 9:50 PM 021 9:52 (specimen) PHOTOGRAPHY COORDINATOR PM PHOTOGRAPHY COORDINATOR Marli Limon MD LAB - BLOOD ORDERABLES Performing Organization Address City/[facility]/ZIP [facility] Phon e Number [address] [address] [facility] (ABNORMAL) TEG without Heparinase (08/10/2020 9:50 PM PHOTOGRAPHY COORDINATOR) Patholo gist Method Time Signature R time until clot 4.0 (L) 5 - 10 08/10/2020 [facility] forms Minute 11:56 PM [facility] K time to spec clot 1.2 1 - 3 08/10/2020 [facility] OF strength Minute 11:56 PM [facility] Angle rate of clot 73.2 (H) 53 - 72 08/10/2020 [facility] strength Degrees 11:56 PM [facility] MA maximum clot 64.4 50 - 70 mm 08/10/2020 [facility] F strength 11:56 PM [facility] CI hypercoagulation 2.6 0.0 - 3.0 08/10/2020 [facility] OF index Ratio 11:56 PM [facility] G actual clot 9.0 4.5 - 11.0 08/10/2020 [facility] Kd/sc 11:56 PM [facility] LY30 lysis at 30 2.6 0 - 8 % 08/10/2020 [facility] minutes 11:56 PM [facility] LY60 lysis at 60 6.4 0 - 15 % 08/10/2020 [facility] F minutes 11:56 PM [facility] Specimen Anatomical Collection Method Collection Time Receive d Time (Source) Location / / Volume Laterality Blood specimen 08/10/2020 9:50 PM 021 9:53 (specimen) PHOTOGRAPHY COORDINATOR PM PHOTOGRAPHY COORDINATOR Marli Limon MD LAB - BLOOD ORDERABLES Performing Organization Address City/[facility] Phon e Number [facility] [address] [place] [address] [facility] Partial thromboplastin time (08/10/2020 9:50 PM PHOTOGRAPHY COORDINATOR) P athologist Signature PTT 31 22 - 37 sec 08/10/2020 [facility] 10:21 PM [facility] Specimen Anatomical Collection Method Collection Time Receive d Time (Source) Location / / Volume Laterality Blood specimen 08/10/2020 9:50 PM 021 9:52 (specimen) PHOTOGRAPHY COORDINATOR PM PHOTOGRAPHY COORDINATOR Marli Limon MD LAB - BLOOD ORDERABLES Performing Organization Address City/State/ZIP Code Phon e Number [facility] [address] [place] [address] [facility] (ABNORMAL) INR (08/10/2020 9:50 PM PHOTOGRAPHY COORDINATOR) P athologist Signature INR 1.21 (H) 0.86 - 1.14 08/10/2020 [facility] 10:41 PM [facility] Specimen Anatomical Collection Method Collection Time Receive d Time (Source) Location / / Volume Laterality Blood specimen 08/10/2020 9:50 PM 021 9:52 (specimen) PHOTOGRAPHY COORDINATOR PM PHOTOGRAPHY COORDINATOR Marli Limon MD LAB - BLOOD ORDERABLES Performing Organization Address City/State/ZIP Code Phon e Number [place] [id number] [place] [address] [facility] (ABNORMAL) CBC with platelets (08/10/2020 9:50 PM PHOTOGRAPHY COORDINATOR) Patholo gist Method Time Signature WBC 12.9 (H) 4.0 - 11.0 08/10/2020 [facility] 10e9/L 9:56 PM [facility] RBC Count 3.59 (L) 3.8 - 5.2 08/10/2020 [facility] 10e12/L 9:56 PM [facility] Hemoglobin 10.9 (L) 11.7 - 08/10/2020 [facility] 15.7 g/dL 9:56 PM [facility] Hematocrit 33.7 (L) 35.0 - 08/10/2020 [facility] 47.0 % 9:56 PM [facility] MCV 94 78 - 100 08/10/2020 [facility] fl 9:56 PM [facility] MCH 30.4 26.5 - 08/10/2020 [facility] 33.0 pg 9:56 PM [facility] MCHC 32.3 31.5 - 08/10/2020 [facility] 36.5 g/dL 9:56 PM [facility] RDW 12.3 10.0 - 08/10/2020 [facility] 15.0 % 9:56 PM [facility] Platelet Count 193 150 - 450 08/10/2020 [facility] 10e9/L 9:56 PM [facility] Specimen Anatomical Collection Method Collection Time Receive d Time (Source) Location / / Volume Laterality Blood specimen 08/10/2020 9:50 PM 021 9:52 (specimen) PHOTOGRAPHY COORDINATOR PM PHOTOGRAPHY COORDINATOR Marli Limon MD LAB - BLOOD ORDERABLES Performing Organization Address City/[facility]/ZIP Code Phon e Number [address] [address] [facility] (ABNORMAL) TEG without Heparinase (08/10/2020 4:00 PM PHOTOGRAPHY COORDINATOR) [facility] gist Method Time Signature R time until clot 3.2 (L) 5 - 10 08/10/2020 [facility] forms Minute 6:24 PM PHOTOGRAPHY COORDINATOR [facility] K time to spec clot 1.2 1 - 3 08/10/2020 [facility] Y OF strength Minute 6:24 PM [facility] Angle rate of clot 73.1 (H) 53 - 72 08/10/2020 [facility] strength Degrees 6:24 PM [facility] MA maximum clot 63.9 50 - 70 mm 08/10/2020 [facility] F strength 6:24 PM [facility] CI hypercoagulation 3.0 0.0 - 3.0 08/10/2020 [facility] Y OF index Ratio 6:24 PM [facility] G actual clot 8.8 4.5 - 11.0 08/10/2020 [facility] strength Kd/sc 6:24 PM [facility] LY30 lysis at 30 3.3 0 - 8 % 08/10/2020 [facility] F minutes 6:24 PM [facility] LY60 lysis at 60 7.3 0 - 15 % 08/10/2020 [facility] F minutes 6:24 PM [facility] Specimen Anatomical Collection Method Collection Time Receive d Time (Source) Location / / Volume Laterality Blood specimen 08/10/2020 4:00 PM 021 4:35 (specimen) PHOTOGRAPHY COORDINATOR PM PHOTOGRAPHY COORDINATOR Eden Moncada MD LAB - BLOOD ORDERABLES Performing Organization Address City/[facility]/ZIP Code Phon e Number [address] [address] [facility] (ABNORMAL) CBC with platelets (08/10/2020 4:00 PM PHOTOGRAPHY COORDINATOR) Patholo gist Method Time Signature WBC 12.9 (H) 4.0 - 11.0 08/10/2020 [facility] 10e9/L 5:00 PM [facility] RBC Count 3.46 (L) 3.8 - 5.2 08/10/2020 [facility] 10e12/L 5:00 PM [facility] Hemoglobin 10.5 (L) 11.7 - 08/10/2020 [facility] 15.7 g/dL 5:00 PM [facility] Hematocrit 31.4 (L) 35.0 - 08/10/2020 [facility] 47.0 % 5:00 PM [facility] MCV 91 78 - 100 08/10/2020 [facility] fl 5:00 PM [facility] MCH 30.3 26.5 - 08/10/2020 [facility] 33.0 pg 5:00 PM [facility] MCHC 33.4 31.5 - 08/10/2020 [facility] 36.5 g/dL 5:00 PM [facility] RDW 12.4 10.0 - 08/10/2020 [facility] 15.0 % 5:00 PM [facility] Platelet Count 169 150 - 450 08/10/2020 [facility] 10e9/L 5:00 PM [facility] Specimen Anatomical Collection Method Collection Time Receive d Time (Source) Location / / Volume Laterality Blood specimen 08/10/2020 4:00 PM 021 4:35 (specimen) PHOTOGRAPHY COORDINATOR PM PHOTOGRAPHY COORDINATOR Eden Moncada MD LAB - BLOOD ORDERABLES Performing Organization Address City/State/ZIP Code Phon e Number [facility] [address] [place] [address] [facility] Partial thromboplastin time (08/10/2020 4:00 PM PHOTOGRAPHY COORDINATOR) P athologist Signature PTT 31 22 - 37 sec 08/10/2020 [facility] 4:50 PM PHOTOGRAPHY COORDINATOR [facility] Specimen Anatomical Collection Method Collection Time Receive d Time (Source) Location / / Volume Laterality Blood specimen 08/10/2020 4:00 PM 021 4:35 (specimen) PHOTOGRAPHY COORDINATOR PM PHOTOGRAPHY COORDINATOR Eden Moncada MD LAB - BLOOD ORDERABLES Performing Organization Address City/State/ZIP Code Phon e Number [facility] INR (08/10/2020 4:00 PM PHOTOGRAPHY COORDINATOR) P athologist Signature INR 1.14 0.86 - 1.14 08/10/2020 [facility] 4:49 PM [facility] Specimen Anatomical Collection Method Collection Time Receive d Time (Source) Location / / Volume Laterality Blood specimen 08/10/2020 4:00 PM 021 4:35 (specimen) PHOTOGRAPHY COORDINATOR PM PHOTOGRAPHY COORDINATOR Eden Moncada MD LAB - BLOOD ORDERABLES Performing Organization Address City/State/ZIP Code Phon e Number [facility] Fibrinogen activity (08/10/2020 4:00 PM PHOTOGRAPHY COORDINATOR) P athologist Signature Fibrinogen 350 200 - 420 08/10/2020 [facility] mg/dL 4:50 PM [facility] Specimen Anatomical Collection Method Collection Time Receive d Time (Source) Location / / Volume Laterality Blood specimen 08/10/2020 4:00 PM 021 4:35 (specimen) PHOTOGRAPHY COORDINATOR PM PHOTOGRAPHY COORDINATOR Eden Moncada MD LAB - BLOOD ORDERABLES Performing Organization Address City/[facility]/ZIP [facility] Phon e Number [facility] (ABNORMAL) TEG without Heparinase (08/10/2020 10:00 AM PHOTOGRAPHY COORDINATOR) [facility] gist Method Time Signature R time until clot 3.2 (L) 5 - 10 08/10/2020 [facility] forms Minute 12:19 PM [facility] K time to spec clot 1.1 1 - 3 08/10/2020 [facility] OF strength Minute 12:19 PM [facility] Angle rate of clot 75.6 (H) 53 - 72 08/10/2020 [facility] strength Degrees 12:19 PM [facility] MA maximum clot 62.8 50 - 70 mm 08/10/2020 [facility] F strength 12:19 PM [facility] CI hypercoagulation 3.1 (H) 0.0 - 3.0 08/10/2020 [facility] OF index Ratio 12:19 PM [facility] G actual clot 8.4 4.5 - 11.0 08/10/2020 [facility] Kd/sc 12:19 PM [facility] LY30 lysis at 30 2.8 0 - 8 % 08/10/2020 [facility] minutes 12:19 PM [facility] LY60 lysis at 60 6.3 0 - 15 % 08/10/2020 [facility] minutes 12:19 PM [facility] Specimen Anatomical Collection Method Collection Time Receive d Time (Source) Location / / Volume Laterality Blood specimen 08/10/2020 10:00 (specimen) AM PHOTOGRAPHY COORDINATOR 10:13 AM PHOTOGRAPHY COORDINATOR Eden Moncada MD LAB - BLOOD ORDERABLES Performing Organization Address City/State/ZIP Code Phon e Number [facility] [address] [place] [address] [facility] (ABNORMAL) CBC with platelets (08/10/2020 10:00 AM PHOTOGRAPHY COORDINATOR) Patholo gist Method Time Signature WBC 11.4 (H) 4.0 - 11.0 08/10/2020 [facility] 10e9/L 10:16 AM [facility] RBC Count 3.26 (L) 3.8 - 5.2 08/10/2020 [facility] 10e12/L 10:16 AM [facility] Hemoglobin 10.1 (L) 11.7 - 08/10/2020 [facility] 15.7 g/dL 10:16 AM [facility] Hematocrit 29.5 (L) 35.0 - 08/10/2020 [facility] 47.0 % 10:16 AM [facility] MCV 91 78 - 100 08/10/2020 UN[facility]ERSITY fl 10:16 AM [facility] MCH 31.0 26.5 - 08/10/2020 [facility] 33.0 pg 10:16 AM [facility] MCHC 34.2 31.5 - 08/10/2020 [facility]ITY 36.5 g/dL 10:16 AM [facility] RDW 12.3 10.0 - 08/10/2020 [facility] 15.0 % 10:16 AM [facility] Platelet Count 182 150 - 450 08/10/2020 [facility] 10e9/L 10:16 AM [facility] Specimen Anatomical Collection Method Collection Time Receive d Time (Source) Location / / Volume Laterality Blood specimen 08/10/2020 10:00 1 (specimen) AM PHOTOGRAPHY COORDINATOR 10:11 AM PHOTOGRAPHY COORDINATOR Eden Moncada MD LAB - BLOOD ORDERABLES Performing Organization Address City/State/ZIP Code Phon e Number [address] [address] [facility] Partial thromboplastin time (08/10/2020 10:00 AM PHOTOGRAPHY COORDINATOR) P athologist Signature PTT 30 22 - 37 sec 08/10/2020 [facility] 10:30 AM [facility] Specimen Anatomical Collection Method Collection Time Receive d Time (Source) Location / / Volume Laterality Blood specimen 08/10/2020 10:00 1 (specimen) AM PHOTOGRAPHY COORDINATOR 10:11 AM PHOTOGRAPHY COORDINATOR Eden Moncada MD LAB - BLOOD ORDERABLES Performing Organization Address City/State/ZIP Code Phon e Number [address] [address] [facility] (ABNORMAL) INR (08/10/2020 10:00 AM PHOTOGRAPHY COORDINATOR) P athologist Signature INR 1.17 (H) 0.86 - 1.14 08/10/2020 [facility] 10:30 AM [facility] Specimen Anatomical Collection Method Collection Time Receive d Time (Source) Location / / Volume Laterality Blood specimen 08/10/2020 10:00 1 (specimen) AM PHOTOGRAPHY COORDINATOR 10:11 AM PHOTOGRAPHY COORDINATOR Eden Moncada MD LAB - BLOOD ORDERABLES Performing Organization Address City/[facility]/ZIP Code Phon e Number [address] [address] [facility] Fibrinogen activity (08/10/2020 10:00 AM PHOTOGRAPHY COORDINATOR) P athologist Signature Fibrinogen 274 200 - 420 08/10/2020 [facility] mg/dL 10:30 AM [facility] Specimen Anatomical Collection Method Collection Time Receive d Time (Source) Location / / Volume Laterality Blood specimen 08/10/2020 10:00 (specimen) AM PHOTOGRAPHY COORDINATOR 10:11 AM PHOTOGRAPHY COORDINATOR Eden Moncada MD LAB - BLOOD ORDERABLES Performing Organization Address City/[facility]/ZIP Code Phon e Number [address] [address] [facility] (ABNORMAL) CBC with platelets (08/10/2020 4:00 AM PHOTOGRAPHY COORDINATOR) [facility] gist Method Time Signature WBC 13.8 (H) 4.0 - 11.0 08/10/2020 [facility] 10e9/L 4:35 AM [facility] RBC Count 3.32 (L) 3.8 - 5.2 08/10/2020 [facility] 10e12/L 4:35 AM [facility] Hemoglobin 10.1 (L) 11.7 - 08/10/2020 [facility] 15.7 g/dL 4:35 AM [facility] Hematocrit 29.9 (L) 35.0 - 08/10/2020 [facility] 47.0 % 4:35 AM [facility] MCV 90 78 - 100 08/10/2020 [facility] fl 4:35 AM [facility] MCH 30.4 26.5 - 08/10/2020 [facility] 33.0 pg 4:35 AM [facility] MCHC 33.8 31.5 - 08/10/2020 [facility] 36.5 g/dL 4:35 AM [facility] RDW 12.3 10.0 - 08/10/2020 [facility] 15.0 % 4:35 AM [facility] Platelet Count 202 150 - 450 08/10/2020 [facility] 10e9/L 4:35 AM [facility] Specimen Anatomical Collection Method Collection Time Receive d Time (Source) Location / / Volume Laterality Blood specimen 08/10/2020 4:00 AM 021 4:32 (specimen) PHOTOGRAPHY COORDINATOR AM PHOTOGRAPHY COORDINATOR Marina Becerril MD LAB - BLOOD ORDERABLES Performing Organization Address City/State/[facility] Code Phon e Number [address] [address] [facility] Fibrinogen activity (08/10/2020 4:00 AM PHOTOGRAPHY COORDINATOR) P athologist Signature Fibrinogen 238 200 - 420 08/10/2020 [facility] mg/dL 5:12 AM [facility] Specimen Anatomical Collection Method Collection Time Receive d Time (Source) Location / / Volume Laterality Blood specimen 08/10/2020 4:00 AM 021 4:32 (specimen) PHOTOGRAPHY COORDINATOR AM PHOTOGRAPHY COORDINATOR Marina Becerril MD LAB - BLOOD ORDERABLES Performing Organization Address City/[facility]/ZIP Code Phon e Number [address] [address] [facility] (ABNORMAL) INR (08/10/2020 4:00 AM PHOTOGRAPHY COORDINATOR) athologist Signature INR 1.15 (H) 0.86 - 1.14 08/10/2020 [facility] 5:11 AM [facility] Specimen Anatomical Collection Method Collection Time Receive d Time (Source) Location / / Volume Laterality Blood specimen 08/10/2020 4:00 AM 021 4:32 (specimen) PHOTOGRAPHY COORDINATOR AM PHOTOGRAPHY COORDINATOR Marina Becerril MD LAB - BLOOD ORDERABLES Performing Organization Address City/[facility]/ZIP Code Phon e Number [address] [address] [facility] Partial thromboplastin time (08/10/2020 4:00 AM PHOTOGRAPHY COORDINATOR) athologist Signature PTT 28 22 - 37 sec 08/10/2020 [facility] 5:11 AM [facility] Specimen Anatomical Collection Method Collection Time Receive d Time (Source) Location / / Volume Laterality Blood specimen 08/10/2020 4:00 AM 021 4:32 (specimen) PHOTOGRAPHY COORDINATOR AM PHOTOGRAPHY COORDINATOR Marina Becerril MD LAB - BLOOD ORDERABLES Performing Organization Address City/[facility]/ZIP Code Phon e Number [address] [address] [facility] (ABNORMAL) TEG without Heparinase (08/10/2020 4:00 AM PHOTOGRAPHY COORDINATOR) Patholo gist Method Time Signature R time until clot 2.6 (L) 5 - 10 08/10/2020 [facility] 6:17 AM [facility] [facility] K time to spec clot 1.0 1 - 3 08/10/2020 [facility] OF strength Minute 6:17 AM [facility] Angle rate of clot 76.9 (H) 53 - 72 08/10/2020 [facility] OF strength Degrees 6:17 AM [facility] MA maximum clot 64.1 50 - 70 mm 08/10/2020 [facility] O F strength 6:17 AM [facility] CI hypercoagulation 3.8 (H) 0.0 - 3.0 08/10/2020 [facility] Y OF index Ratio 6:17 AM [facility] G actual clot 8.9 4.5 - 11.0 08/10/2020 [facility] OF strength Kd/sc 6:17 AM [facility] LY30 lysis at 30 2.4 0 - 8 % 08/10/2020 [facility] O F minutes 6:17 AM [facility] LY60 lysis at 60 5.7 0 - 15 % 08/10/2020 [facility] O F minutes 6:17 AM [facility] Specimen Anatomical Collection Method Collection Time Receive d Time (Source) Location / / Volume Laterality Blood specimen 08/10/2020 4:00 AM 021 4:32 (specimen) PHOTOGRAPHY COORDINATOR AM PHOTOGRAPHY COORDINATOR Marina Becerril MD LAB - BLOOD ORDERABLES Performing Organization Address City/[facility] Phon e Number [place] [phone] [facility] Fibrinogen activity (08/09/2020 10:00 PM PHOTOGRAPHY COORDINATOR) P athologist Signature Fibrinogen 206 200 - 420 08/09/2020 [facility] mg/dL 10:58 PM [facility] Specimen Anatomical Collection Method Collection Time Receive d Time (Source) Location / / Volume Laterality 08/09/2020 10:00 08/09/2020 PM PHOTOGRAPHY COORDINATOR 10:11 PM PHOTOGRAPHY COORDINATOR Janine Leone MD LAB - BLOOD ORDERABLES Performing Organization Address City/[facility] Phon e Number [place] [phone] [facility] Partial thromboplastin time (08/09/2020 10:00 PM PHOTOGRAPHY COORDINATOR) P athologist Signature PTT 26 22 - 37 sec 08/09/2020 [facility] 10:28 PM [facility] Specimen Anatomical Collection Method Collection Time Receive d Time (Source) Location / / Volume Laterality Blood specimen 08/09/2020 10:00 1 (specimen) PM PHOTOGRAPHY COORDINATOR 10:11 PM PHOTOGRAPHY COORDINATOR Janine Leone MD LAB - BLOOD ORDERABLES Performing Organization Address City/[facility] Phon e Number [address] [address] [facility] INR (08/09/2020 10:00 PM PHOTOGRAPHY COORDINATOR) P athologist Signature INR 1.11 0.86 - 1.14 08/09/2020 [facility] 10:27 PM [facility] Specimen Anatomical Collection Method Collection Time Receive d Time (Source) Location / / Volume Laterality Blood specimen 08/09/2020 10:00 1 (specimen) PM PHOTOGRAPHY COORDINATOR 10:11 PM PHOTOGRAPHY COORDINATOR Janine Leone MD LAB - BLOOD ORDERABLES Performing Organization Address City/[facility] Phon e Number [address] [address] [facility] (ABNORMAL) TEG without Heparinase (08/09/2020 10:00 PM PHOTOGRAPHY COORDINATOR) Patholo gist Method Time Signature R time until clot 3.1 (L) 5 - 10 08/10/2020 [facility] forms Minute 1:26 AM [facility] K time to spec clot 1.1 1 - 3 08/10/2020 [facility] OF strength Minute 1:26 AM [facility] Angle rate of clot 74.3 (H) 53 - 72 08/10/2020 [facility] strength Degrees 1:26 AM [facility] MA maximum clot 63.9 50 - 70 mm 08/10/2020 [facility] F strength 1:26 AM [facility] CI hypercoagulation 3.3 (H) 0.0 - 3.0 08/10/2020 [facility] OF index Ratio 1:26 AM [facility] G actual clot 8.8 4.5 - 11.0 08/10/2020 [facility] Kd/sc 1:26 AM [facility] LY30 lysis at 30 2.1 0 - 8 % 08/10/2020 [facility] minutes 1:26 AM [facility] LY60 lysis at 60 5.5 0 - 15 % 08/10/2020 [facility] minutes 1:26 AM [facility] Specimen Anatomical Collection Method Collection Time Receive d Time (Source) Location / / Volume Laterality Blood specimen 08/09/2020 10:00 1 (specimen) PM PHOTOGRAPHY COORDINATOR 10:11 PM PHOTOGRAPHY COORDINATOR Janine Leone MD LAB - BLOOD ORDERABLES Performing Organization Address City/State/ZIP Code Phon e Number [facility] [address] [place] [address] [facility] (ABNORMAL) CBC with platelets (08/09/2020 10:00 PM PHOTOGRAPHY COORDINATOR) [facility] gist Method Time Signature WBC 12.1 (H) 4.0 - 11.0 08/09/2020 [facility] 10e9/L 10:14 PM [facility] RBC Count 3.38 (L) 3.8 - 5.2 08/09/2020 [facility] 10e12/L 10:14 PM [facility] Hemoglobin 10.4 (L) 11.7 - 08/09/2020 [facility] 15.7 g/dL 10:14 PM [facility] Hematocrit 30.3 (L) 35.0 - 08/09/2020 [facility] 47.0 % 10:14 PM [facility] MCV 90 78 - 100 08/09/2020 [facility] OF fl 10:14 PM [facility] MCH 30.8 26.5 - 08/09/2020 [facility] 33.0 pg 10:14 PM [facility] MCHC 34.3 31.5 - 08/09/2020 [facility] 36.5 g/dL 10:14 PM [facility] RDW 12.1 10.0 - 08/09/2020 [facility] 15.0 % 10:14 PM [facility] Platelet Count 211 150 - 450 08/09/2020 [facility] 10e9/L 10:14 PM [facility] Specimen Anatomical Collection Method Collection Time Receive d Time (Source) Location / / Volume Laterality Blood specimen 08/09/2020 10:00 (specimen) PM PHOTOGRAPHY COORDINATOR 10:11 PM PHOTOGRAPHY COORDINATOR Janine Leone MD LAB - BLOOD ORDERABLES Performing Organization Address [facility] Phon e Number [address] (ABNORMAL) TEG without Heparinase (08/09/2020 5:54 PM PHOTOGRAPHY COORDINATOR) [facility] gist Method Time Signature R time until clot 3.2 (L) 5 - 10 08/09/2020 [facility] forms Minute 8:34 PM [facility] K time to spec clot 0.8 (L) 1 - 3 08/09/2020 [facility] OF strength Minute 8:34 PM [facility] Angle rate of clot 78.4 (H) 53 - 72 08/09/2020 [facility] strength Degrees 8:34 PM [facility] MA maximum clot 68.3 50 - 70 mm 08/09/2020 [facility] F strength 8:34 PM [facility] CI hypercoagulation 4.1 (H) 0.0 - 3.0 08/09/2020 [facility] OF index Ratio 8:34 PM [facility] G actual clot 10.8 4.5 - 11.0 08/09/2020 [facility] Kd/sc 8:34 PM [facility] LY30 lysis at 30 1.2 0 - 8 % 08/09/2020 [facility] O F minutes 8:34 PM [facility] LY60 lysis at 60 3.8 0 - 15 % 08/09/2020 [facility] O F minutes 8:34 PM [facility] Specimen Anatomical Collection Method Collection Time Receive d Time (Source) Location / / Volume Laterality Blood specimen 08/09/2020 5:54 PM 021 5:59 (specimen) PHOTOGRAPHY COORDINATOR PM PHOTOGRAPHY COORDINATOR Janine Leone MD LAB - BLOOD ORDERABLES Performing Organization Address City/[facility] Phon e Number [address] [address] [facility] Fibrinogen activity (08/09/2020 5:45 PM PHOTOGRAPHY COORDINATOR) P athologist Signature Fibrinogen 205 200 - 420 08/09/2020 [facility] mg/dL 6:23 PM [facility] Specimen Anatomical Collection Method Collection Time Receive d Time (Source) Location / / Volume Laterality Blood specimen 08/09/2020 5:45 PM 021 5:51 (specimen) PHOTOGRAPHY COORDINATOR PM PHOTOGRAPHY COORDINATOR Janine Leone MD LAB - BLOOD ORDERABLES Performing Organization Address City/State/ZIP Code Phon e Number [address] [address] [facility] Partial thromboplastin time (08/09/2020 5:45 PM PHOTOGRAPHY COORDINATOR) athologist Signature PTT 26 22 - 37 sec 08/09/2020 [facility] 6:23 PM [facility] Specimen Anatomical Collection Method Collection Time Receive d Time (Source) Location / / Volume Laterality Blood specimen 08/09/2020 5:45 PM 021 5:51 (specimen) PHOTOGRAPHY COORDINATOR PM PHOTOGRAPHY COORDINATOR Janine Leone MD LAB - BLOOD ORDERABLES Performing Organization Address City/[facility]/ZIP Code Phon e Number [place] [phone] [facility] INR (08/09/2020 5:45 PM PHOTOGRAPHY COORDINATOR) athologist Signature INR 1.14 0.86 - 1.14 08/09/2020 [facility] 6:23 PM [facility] Specimen Anatomical Collection Method Collection Time Receive d Time (Source) Location / / Volume Laterality Blood specimen 08/09/2020 5:45 PM 021 5:51 (specimen) PHOTOGRAPHY COORDINATOR PM PHOTOGRAPHY COORDINATOR Janine Leone MD LAB - BLOOD ORDERABLES Performing Organization Address City/[facility]/ZIP Code Phon e Number [place] [phone] [facility] (ABNORMAL) CBC with platelets (08/09/2020 5:45 PM PHOTOGRAPHY COORDINATOR) [facility] gist Method Time Signature WBC 12.6 (H) 4.0 - 11.0 08/09/2020 [facility] 10e9/L 5:57 PM [facility] RBC Count 3.41 (L) 3.8 - 5.2 08/09/2020 [facility] OF 10e12/L 5:57 PM [facility] Hemoglobin 10.5 (L) 11.7 - 08/09/2020 [facility] OF 15.7 g/dL 5:57 PM [facility] Hematocrit 30.8 (L) 35.0 - 08/09/2020 [facility] OF 47.0 % 5:57 PM [facility] MCV 90 78 - 100 08/09/2020 [facility] OF fl 5:57 PM [facility] MCH 30.8 26.5 - 08/09/2020 [facility] OF 33.0 pg 5:57 PM [facility] MCHC 34.1 31.5 - 08/09/2020 [facility] OF 36.5 g/dL 5:57 PM [facility] RDW 12.1 10.0 - 08/09/2020 [facility] 15.0 % 5:57 PM [facility] Platelet Count 203 150 - 450 08/09/2020 [facility] 10e9/L 5:57 PM [facility] Specimen Anatomical Collection Method Collection Time Receive d Time (Source) Location / / Volume Laterality Blood specimen 08/09/2020 5:45 PM 021 5:51 (specimen) PHOTOGRAPHY COORDINATOR PM PHOTOGRAPHY COORDINATOR Janine Leone MD LAB - BLOOD ORDERABLES Performing Organization Address City/State/ZIP Code Phon e Number [facility] [address] [place] [address] [facility] Methicillin Resist/Sens S. aureus PCR (08/09/2020 2:10 PM PHOTOGRAPHY COORDINATOR) [facility] gist Method Time Signature Specimen Nares 08/09/2020 [facility] Description 2:39 PM PHOTOGRAPHY COORDINATOR [facility] Methicillin Negative NEG^Negat 08/09/2020 [facility] Resist/Sens S. mindy 5:53 PM [facility] aureus PCR [facility] Comment: MRSA Negative: SA Negative ??MRSA and St aphylococcus aureus target DNA not detected, presumed negative for MRSA and SA colonization or the number of bacteria present may be below the limit of detection for the assay. FDA approved assay performed using [employer] eneXpert(R) real-time PCR. Specimen (Source) Anatomical Collection Method Collection Time Re ceived Time Location / / Volume Laterality Nasal structure SWAB FROM NASAL 08/09/2020 2:10 2020 2:45 (body structure) SINUS / Unknown PM PHOTOGRAPHY COORDINATOR PM PHOTOGRAPHY COORDINATOR Janine Leone MD LAB - MICRO GENERAL ORDERABL ES Performing Organization Address City/State/ZIP Code Phon e Number [facility] [address] [place] [address] [facility] U [facility] Iron and iron binding capacity (08/09/2020 1:45 PM PHOTOGRAPHY COORDINATOR) P athologist Signature Iron 74 35 - 180 08/10/2020 [facility] ug/dL 12:34 PM [facility] Iron Binding 306 240 - 430 08/10/2020 [facility] Cap ug/dL 12:34 PM [facility] Iron Saturation 24 15 - 46 % 08/10/2020 [facility] Index 12:34 PM [facility] Specimen Anatomical Collection Method Collection Time Receive d Time (Source) Location / / Volume Laterality 08/09/2020 1:45 PM 2:04 PHOTOGRAPHY COORDINATOR PM PHOTOGRAPHY COORDINATOR Janine Leone MD LAB - BLOOD ORDERABLES Performing Organization Address City/[facility]/ZIP Code Phon e Number [facility] (ABNORMAL) TEG without Heparinase (08/09/2020 1:45 PM PHOTOGRAPHY COORDINATOR) Patholo gist Method Time Signature R time until clot 3.7 (L) 5 - 10 08/09/2020 [facility] forms Minute 6:32 PM [facility] K time to spec clot 1.2 1 - 3 08/09/2020 [facility] Y OF strength Minute 6:32 PM [facility] Angle rate of clot 72.4 (H) 53 - 72 08/09/2020 [facility] strength Degrees 6:32 PM [facility] MA maximum clot 62.9 50 - 70 mm 08/09/2020 [facility] O F strength 6:32 PM [facility] CI hypercoagulation 2.5 0.0 - 3.0 08/09/2020 [facility] Y OF index Ratio 6:32 PM [facility] G actual clot 8.5 4.5 - 11.0 08/09/2020 [facility] Kd/sc 6:32 PM [facility] LY30 lysis at 30 1.8 0 - 8 % 08/09/2020 [facility]ITY O F minutes 6:32 PM [facility] LY60 lysis at 60 4.9 0 - 15 % 08/09/2020 [facility] O F minutes 6:32 PM [facility] Specimen Anatomical Collection Method Collection Time Receive d Time (Source) Location / / Volume Laterality Blood specimen 08/09/2020 1:45 PM 021 2:04 (specimen) PHOTOGRAPHY COORDINATOR PM PHOTOGRAPHY COORDINATOR Janine Leone MD LAB - BLOOD ORDERABLES Performing Organization Address City/[facility]/ZIP Code Phon e Number [facility] [address] [place] [address] [facility] (ABNORMAL) Fibrinogen activity (08/09/2020 1:45 PM PHOTOGRAPHY COORDINATOR) P athologist Signature Fibrinogen 174 (L) 200 - 420 08/09/2020 [facility] mg/dL 2:21 PM [facility] Specimen Anatomical Collection Method Collection Time Receive d Time (Source) Location / / Volume Laterality Blood specimen 08/09/2020 1:45 PM 021 2:04 (specimen) PHOTOGRAPHY COORDINATOR PM PHOTOGRAPHY COORDINATOR Janine Leone MD LAB - BLOOD ORDERABLES Performing Organization Address City/[facility]/ZIP [facility] Phon e Number [facility] INR (08/09/2020 1:45 PM PHOTOGRAPHY COORDINATOR) P athologist Signature INR 1.14 0.86 - 1.14 08/09/2020 [facility] 2:20 PM PHOTOGRAPHY COORDINATOR [facility] Specimen Anatomical Collection Method Collection Time Receive d Time (Source) Location / / Volume Laterality Blood specimen 08/09/2020 1:45 PM 021 2:04 (specimen) PHOTOGRAPHY COORDINATOR PM PHOTOGRAPHY COORDINATOR Janine Leone MD LAB - BLOOD ORDERABLES Performing Organization Address City/State/ZIP Code Phon e Number [facility] Partial thromboplastin time (08/09/2020 1:45 PM PHOTOGRAPHY COORDINATOR) P athologist Signature PTT 28 22 - 37 sec 08/09/2020 [facility] [place] [facility] 2:21 PM [facility] Specimen Anatomical Collection Method Collection Time Receive d Time (Source) Location / / Volume Laterality Blood specimen 08/09/2020 1:45 PM 021 2:04 (specimen) PHOTOGRAPHY COORDINATOR PM PHOTOGRAPHY COORDINATOR Janine Leone MD LAB - BLOOD ORDERABLES Performing Organization Address City/State/ZIP Code Phon e Number [facility] (ABNORMAL) CBC with platelets (08/09/2020 1:45 PM PHOTOGRAPHY COORDINATOR) Patholo gist Method Time Signature WBC 11.6 (H) 4.0 - 11.0 08/09/2020 [facility] 10e9/L 2:08 PM [facility] RBC Count 3.47 (L) 3.8 - 5.2 08/09/2020 [facility] OF 10e12/L 2:08 PM [facility] Hemoglobin 10.6 (L) 11.7 - 08/09/2020 [facility] 15.7 g/dL 2:08 PM [facility] Hematocrit 31.4 (L) 35.0 - 08/09/2020 [facility] 47.0 % 2:08 PM [facility] MCV 91 78 - 100 08/09/2020 [facility] OF fl 2:08 PM [facility] MCH 30.5 26.5 - 08/09/2020 [facility] 33.0 pg 2:08 PM [facility] MCHC 33.8 31.5 - 08/09/2020 [facility] 36.5 g/dL 2:08 PM [facility] RDW 12.0 10.0 - 08/09/2020 [facility] 15.0 % 2:08 PM [facility] Platelet Count 238 150 - 450 08/09/2020 [facility] OF 10e9/L 2:08 PM PHOTOGRAPHY COORDINATOR [facility] Specimen Anatomical Collection Method Collection Time Receive d Time (Source) Location / / Volume Laterality Blood specimen 08/09/2020 1:45 PM 021 2:04 (specimen) PHOTOGRAPHY COORDINATOR PM PHOTOGRAPHY COORDINATOR Janine Leone MD LAB - BLOOD ORDERABLES Performing Organization Address City/State/ZIP Code Phon e Number [facility] [address] [place] [address] [facility] Prealbumin (08/09/2020 1:45 PM PHOTOGRAPHY COORDINATOR) P athologist Signature Prealbumin 24 15 - 45 08/09/2020 [facility] mg/dL 2:27 PM PHOTOGRAPHY COORDINATOR [facility] Specimen Anatomical Collection Method Collection Time Receive d Time (Source) Location / / Volume Laterality Blood specimen 08/09/2020 1:45 PM 021 2:04 (specimen) PHOTOGRAPHY COORDINATOR PM PHOTOGRAPHY COORDINATOR Janine Leone MD LAB - BLOOD ORDERABLES Performing Organization Address City/State/ZIP Code Phon e Number U [facility] U OF [facility] Magnesium (08/09/2020 1:45 PM PHOTOGRAPHY COORDINATOR) P athologist Signature Magnesium 1.6 1.6 - 2.3 08/09/2020 [facility] mg/dL 2:24 PM PHOTOGRAPHY COORDINATOR [facility] Specimen Anatomical Collection Method Collection Time Receive d Time (Source) Location / / Volume Laterality Blood specimen 08/09/2020 1:45 PM 021 2:04 (specimen) PHOTOGRAPHY COORDINATOR PM PHOTOGRAPHY COORDINATOR Janine Leone MD LAB - BLOOD ORDERABLES Performing Organization Address City/State/ZIP Code Phon e Number [facility] U OF [facility] Calcium ionized whole blood (08/09/2020 1:45 PM PHOTOGRAPHY COORDINATOR) P athologist Signature Calcium 4.4 4.4 - 5.2 08/09/2020 [facility] Ionized Whole mg/dL 2:08 PM [facility] Specimen Anatomical Collection Method Collection Time Receive d Time (Source) Location / / Volume Laterality Blood specimen 08/09/2020 1:45 PM 021 2:04 (specimen) PHOTOGRAPHY COORDINATOR PM PHOTOGRAPHY COORDINATOR Janine Leone MD LAB - BLOOD ORDERABLES Performing Organization Address City/State/ZIP Code Phon e Number [facility] [address] [place] [address] [facility] (ABNORMAL) Renal Panel (08/09/2020 1:45 PM PHOTOGRAPHY COORDINATOR) P athologist Signature Sodium 139 133 - 144 08/09/2020 [facility] mmol/L 2:18 PM [facility] Potassium 3.7 3.4 - 5.3 08/09/2020 [facility] mmol/L 2:18 PM [facility] Chloride 106 96 - 110 08/09/2020 [facility] mmol/L 2:18 PM [facility] Carbon Dioxide 25 20 - 32 08/09/2020 [facility] mmol/L 2:24 PM [facility] Anion Gap 8 3 - 14 08/09/2020 [facility] mmol/L 2:24 PM [facility] Glucose 164 (H) 70 - 99 08/09/2020 [facility] mg/dL 2:24 PM [facility] Urea Nitrogen 12 7 - 30 08/09/2020 [facility] mg/dL 2:24 PM [facility] Creatinine 0.66 0.50 - 08/09/2020 [facility] 1.00 mg/dL 2:24 PM [facility] GFR Estimate >90 >60 08/09/2020 [facility] mL/min/{1. 2:24 PM [facility] Comment: Non GFR Calc Starting 07/22/2018, serum creatinine ba sed estimated GFR (eGFR) will be calculated using the Chronic Kid[facility] Dise [facility] Epidemiology Collaboration (CKD-EPI) equation. GFR Estimate If >90 >60 mL/min/{1.73_m2} 08/09/2020 2: 24 PM [facility] Comment: GFR Calc Starting 07/22/2018, serum creatinine ba sed estimated GFR (eGFR) will be calculated using the Chronic Kidney Dise [facility] Epidemiology Collaboration (CKD-EPI) equation. Calcium 7.9 (L) 8.5 - 10.1 mg/dL 08/09/2020 2:24 PM PHOTOGRAPHY COORDINATOR U OF [facility] Phosphorus 3.0 2.5 - 4.5 mg/dL 08/09/2020 2:24 PM PHOTOGRAPHY COORDINATOR [facility] Albumin 3.5 3.4 - 5.0 g/dL 08/09/2020 2:24 PM PHOTOGRAPHY COORDINATOR [facility] Specimen Anatomical Collection Method Collection Time Receive d Time (Source) Location / / Volume Laterality Blood specimen 08/09/2020 1:45 PM 021 2:04 (specimen) PHOTOGRAPHY COORDINATOR PM PHOTOGRAPHY COORDINATOR Janine Leone MD LAB - BLOOD ORDERABLES Performing Organization Address City/State/ZIP Code Phon e Number [facility] U OF [facility] XR Surgery ELIER L/T 5 Min Fluoro (08/09/2020 12:05 PM PHOTOGRAPHY COORDINATOR) Specimen (Source) Anatomical Location Collection Method / Collectio n Time Received Time / Laterality Volume Narrative [facility] - 08/09/2020 12:06 PM PHOTOGRAPHY COORDINATOR This exam was marked as non-reportable because it will not be read by a radiologist or a [place] non-radiologis t provider. Catina Ha MD IMG DIAGNOSTIC IMAGING ORDER DANO Performing Organization Address City/[facility]/ZIP Code Phon e Number [facility] (ABNORMAL) TEG without Heparinase (08/09/2020 11:28 AM PHOTOGRAPHY COORDINATOR) [facility] gist Method Time Signature R time until clot 3.1 (L) 5 - 10 08/09/2020 [facility] OF forms Minute 1:37 PM PHOTOGRAPHY COORDINATOR [facility] K time to spec clot 0.8 (L) 1 - 3 08/09/2020 UN[facility]ERSIT Y OF strength Minute 1:37 PM [facility] Angle rate of clot 76.1 (H) 53 - 72 08/09/2020 [facility]ERSITY OF strength Degrees 1:37 PM PHOTOGRAPHY COORDINATOR [facility] MA maximum clot 68.3 50 - 70 mm 08/09/2020 UN[facility]ERSITY O F strength 1:37 PM [facility] CI hypercoagulation 4.0 (H) 0.0 - 3.0 08/09/2020 UNIVERSIT Y OF index Ratio 1:37 PM [facility] G actual clot 10.8 4.5 - 11.0 08/09/2020 [facility] Kd/sc 1:37 PM PHOTOGRAPHY COORDINATOR [facility] LY30 lysis at 30 0.9 0 - 8 % 08/09/2020 UN[facility]ERSITY O F minutes 1:37 PM [facility] LY60 lysis at 60 3.4 0 - 15 % 08/09/2020 [facility] minutes 1:37 PM [facility] Specimen Anatomical Collection Method Collection Time Receive d Time (Source) Location / / Volume Laterality 08/09/2020 11:28 08/09/2020 AM PHOTOGRAPHY COORDINATOR 11:49 AM PHOTOGRAPHY COORDINATOR Catina Ha MD LAB - BLOOD ORDERABLES Performing Organization Address City/[facility]/ZIP Code Phon e Number [place] [phone] [facility] Partial thromboplastin time (08/09/2020 11:28 AM PHOTOGRAPHY COORDINATOR) P athologist Signature PTT 26 22 - 37 sec 08/09/2020 [facility] 12:06 PM [facility] Specimen Anatomical Collection Method Collection Time Receive d Time (Source) Location / / Volume Laterality 08/09/2020 11:28 08/09/2020 AM PHOTOGRAPHY COORDINATOR 11:49 AM PHOTOGRAPHY COORDINATOR Catina Ha MD LAB - BLOOD ORDERABLES Performing Organization Address City/State/ZIP Code Phon e Number [address] [address] [facility] INR (08/09/2020 11:28 AM PHOTOGRAPHY COORDINATOR) P athologist Signature INR 1.14 0.86 - 1.14 08/09/2020 [facility] 12:06 PM [facility] Specimen Anatomical Collection Method Collection Time Receive d Time (Source) Location / / Volume Laterality 08/09/2020 11:28 08/09/2020 AM PHOTOGRAPHY COORDINATOR 11:49 AM PHOTOGRAPHY COORDINATOR Catina Ha MD LAB - BLOOD ORDERABLES Performing Organization Address City/[facility]/ZIP Code Phon e Number [address] [address] [facility] (ABNORMAL) Fibrinogen activity (08/09/2020 11:28 AM PHOTOGRAPHY COORDINATOR) P athologist Signature Fibrinogen 178 (L) 200 - 420 08/09/2020 [facility]ITY OF mg/dL 12:06 PM [facility] Specimen Anatomical Collection Method Collection Time Receive d Time (Source) Location / / Volume Laterality 08/09/2020 11:28 08/09/2020 AM PHOTOGRAPHY COORDINATOR 11:49 AM PHOTOGRAPHY COORDINATOR Catina Ha MD LAB - BLOOD ORDERABLES Performing Organization Address City/[facility]/ZIP Code Phon e Number [id number] [place] [address] (ABNORMAL) CBC with platelets (08/09/2020 11:28 AM PHOTOGRAPHY COORDINATOR) [facility] gist Method Time Signature WBC 17.3 (H) 4.0 - 11.0 08/09/2020 [facility] 10e9/L 11:52 AM [facility] RBC Count 3.60 (L) 3.8 - 5.2 08/09/2020 [facility] 10e12/L 11:52 AM [facility] Hemoglobin 11.0 (L) 11.7 - 08/09/2020 [facility] 15.7 g/dL 11:52 AM [facility] Hematocrit 32.7 (L) 35.0 - 08/09/2020 [facility] 47.0 % 11:52 AM [facility] MCV 91 78 - 100 08/09/2020 [facility] fl 11:52 AM [facility] MCH 30.6 26.5 - 08/09/2020 [facility] 33.0 pg 11:52 AM [facility] MCHC 33.6 31.5 - 08/09/2020 [facility] 36.5 g/dL 11:52 AM [facility] RDW 11.9 10.0 - 08/09/2020 [facility] 15.0 % 11:52 AM [facility] Platelet Count 324 150 - 450 08/09/2020 [facility] 10e9/L 11:52 AM [facility] Specimen Anatomical Collection Method Collection Time Receive d Time (Source) Location / / Volume Laterality 08/09/2020 11:28 08/09/2020 AM PHOTOGRAPHY COORDINATOR 11:49 AM PHOTOGRAPHY COORDINATOR Catina Ha MD LAB - BLOOD ORDERABLES Performing Organization Address City/State/[facility] Code Phon e Number [address] [place] [address] [facility] (ABNORMAL) TEG without Heparinase (08/09/2020 9:50 AM PHOTOGRAPHY COORDINATOR) Patholo gist Method Time Signature R time until clot 3.3 (L) 5 - 10 08/09/2020 [facility] forms Minute 11:45 AM [facility] K time to spec clot 0.9 (L) 1 - 3 08/09/2020 [facility] OF strength Minute 11:45 AM [facility] Angle rate of clot 76.3 (H) 53 - 72 08/09/2020 [facility] Degrees 11:45 AM [facility] MA maximum clot 70.5 (H) 50 - 70 mm 08/09/2020 [facility] O F strength 11:45 AM [facility] CI hypercoagulation 4.1 (H) 0.0 - 3.0 08/09/2020 [facility] Y OF index Ratio 11:45 AM [facility] G actual clot 12.0 (H) 4.5 - 11.0 08/09/2020 [facility] Kd/sc 11:45 AM [facility] LY30 lysis at 30 0.9 0 - 8 % 08/09/2020 [facility] O F minutes 11:45 AM [facility] LY60 lysis at 60 3.5 0 - 15 % 08/09/2020 [facility] O F minutes 11:45 AM [facility] Specimen Anatomical Collection Method Collection Time Receive d Time (Source) Location / / Volume Laterality 08/09/2020 9:50 AM PHOTOGRAPHY COORDINATOR 10:01 AM PHOTOGRAPHY COORDINATOR Catina Ha MD LAB - BLOOD ORDERABLES Performing Organization Address City/State/ZIP Code Phon e Number [facility] [address] [place] [address] [facility] Partial thromboplastin time (08/09/2020 9:50 AM PHOTOGRAPHY COORDINATOR) P athologist Signature PTT 26 22 - 37 sec 08/09/2020 [facility] 10:18 AM [facility] Specimen Anatomical Collection Method Collection Time Receive d Time (Source) Location / / Volume Laterality 08/09/2020 9:50 AM 01/05/202 1 PHOTOGRAPHY COORDINATOR 10:01 AM PHOTOGRAPHY COORDINATOR Catina Ha MD LAB - BLOOD ORDERABLES Performing Organization Address City/State/ZIP Code Phon e Number [address] [address] [facility] INR (08/09/2020 9:50 AM PHOTOGRAPHY COORDINATOR) P athologist Signature INR 1.06 0.86 - 1.14 08/09/2020 [facility] 10:27 AM [facility] Specimen Anatomical Collection Method Collection Time Receive d Time (Source) Location / / Volume Laterality 08/09/2020 9:50 AM PHOTOGRAPHY COORDINATOR 10:01 AM PHOTOGRAPHY COORDINATOR Catina Ha MD LAB - BLOOD ORDERABLES Performing Organization Address City/[facility]/ZIP Code Phon e Number [place] [id number] [facility] Fibrinogen activity (08/09/2020 9:50 AM PHOTOGRAPHY COORDINATOR) athologist Signature Fibrinogen 202 200 - 420 08/09/2020 [facility] mg/dL 10:27 AM [facility] Specimen Anatomical Collection Method Collection Time Receive d Time (Source) Location / / Volume Laterality 08/09/2020 9:50 AM PHOTOGRAPHY COORDINATOR 10:01 AM PHOTOGRAPHY COORDINATOR Catina Ha MD LAB - BLOOD ORDERABLES Performing Organization Address City/State/ZIP Code Phon e Number [address] [address] [facility] (ABNORMAL) Arterial Panel (08/09/2020 9:50 AM PHOTOGRAPHY COORDINATOR) [facility] Method Time Signature pH Arterial 7.45 7.35 - 08/09/2020 [facility] 7.45 pH 10:05 AM [facility] pCO2 Arterial 33 (L) 35 - 45 mm 08/09/2020 [facility] Hg 10:05 AM [facility] pO2 Arterial 183 (H) 80 - 105 08/09/2020 [facility] mm Hg 10:05 AM [facility] Bicarbonate 23 21 - 28 08/09/2020 [facility] Arterial mmol/L 10:05 AM [facility] Base Deficit Art 0.6 mmol/L 08/09/2020 [facility] F 10:05 AM [facility] Comment: Reference range: -9.0 to 1.8 FIO2 STAT 08/09/2020 10:02 AM [facility] Comment: OR 17 FIO2 34% Sodium 138 133 - 144 08/09/2020 10:05 AM [facility] mmol/L [facility] Potassium 3.5 3.4 - 5.3 08/09/2020 10:05 AM [facility] mmol/L [facility] Hemoglobin 11.5 (L) 11.7 - 15.7 08/09/2020 10:05 AM [facility]dL [facility] Glucose 149 (H) 70 - 99 mg/dL 08/09/2020 10:05 AM [facility] Calcium Ionized 4.3 (L) 4.4 - 5.2 mg/dL 08/09/2020 10:05 A M [facility] Whole Blood [facility] Specimen Anatomical Collection Method Collection Time Receive d Time (Source) Location / / Volume Laterality 08/09/2020 9:50 AM PHOTOGRAPHY COORDINATOR 10:01 AM PHOTOGRAPHY COORDINATOR Catina Ha MD LAB - BLOOD ORDERABLES Performing Organization Address City/State/ZIP Code Phon e Number [facility] [address] [place] [address] [facility] : Laboratory Miscellaneous Order (08/09/2020 9:00 AM PHOTOGRAPHY COORDINATOR) Component Value Ref Test Analysis Performed [facility] Range Method Time Signature Miscellaneous BIOPSY IN 08/09/2020 [facility] Test HISTOLOGY. TEST 2:46 PM PHOTOGRAPHY COORDINATOR AMPLATZ REQUEST BEING CHILDRENS INVESTIGATED BY [facility] STEFANIE ECHEVARRIA MD. Comment: SLC 1430 08.09.20 Specimen (Source) Anatomical Collection Method Collection Time Re ceived Time Location / / Volume Laterality Tissue specimen TOPOGRAPHY UNKNOWN 08/09/2020 9:25 AM (specimen) / Unknown PHOTOGRAPHY COORDINATOR Comment: Skin- Freeze in liquid Nitrogen for Future Fibroblast Culture for Genetic Testing Specimen placed in dry ice until liquid nitrogen available - [facility] will need to be contacted (unable to reach from [place]) Catina Ha MD LAB - BLOOD ORDERABLES Performing Organization Address City/State/ZIP Code Phon e Number [facility] TEG without Heparinase (08/09/2020 8:45 AM PHOTOGRAPHY COORDINATOR) Patholo gist Method Time Signature R time until clot 5.4 5 - 10 08/09/2020 [facility] forms Minute 10:41 AM [facility] K time to spec clot 1.5 1 - 3 08/09/2020 [facility] OF strength Minute 10:41 AM [facility] Angle rate of clot 68.7 53 - 72 08/09/2020 [facility] strength Degrees 10:41 AM [facility] MA maximum clot 63.1 50 - 70 mm 08/09/2020 [facility] O F strength 10:41 AM [facility] CI hypercoagulation 1.1 0.0 - 3.0 08/09/2020 [facility] OF index Ratio 10:41 AM [facility] G actual clot 8.6 4.5 - 11.0 08/09/2020 [facility] Kd/sc 10:41 AM [facility] LY30 lysis at 30 1.0 0 - 8 % 08/09/2020 [facility] O F minutes 10:41 AM [facility] LY60 lysis at 60 4.2 0 - 15 % 08/09/2020 [facility] O F minutes 10:41 AM [facility] Specimen Anatomical Collection Method Collection Time Receive d Time (Source) Location / / Volume Laterality 08/09/2020 8:45 AM 9:01 PHOTOGRAPHY COORDINATOR AM PHOTOGRAPHY COORDINATOR Catina Ha MD LAB - BLOOD ORDERABLES Performing Organization Address City/State/ZIP Code Phon e Number [facility] [address] [place] [address] [facility] Partial thromboplastin time (08/09/2020 8:45 AM PHOTOGRAPHY COORDINATOR) P athologist Signature PTT 31 22 - 37 sec 08/09/2020 [facility] 9:15 AM [facility] Specimen Anatomical Collection Method Collection Time Receive d Time (Source) Location / / Volume Laterality 08/09/2020 8:45 AM 9:01 PHOTOGRAPHY COORDINATOR AM PHOTOGRAPHY COORDINATOR Catina Ha MD LAB - BLOOD ORDERABLES Performing Organization Address City/State/ZIP Code Phon e Number [address] [address] [facility] INR (08/09/2020 8:45 AM PHOTOGRAPHY COORDINATOR) athologist Signature INR 1.07 0.86 - 1.14 08/09/2020 [facility] 9:14 AM [facility] Specimen Anatomical Collection Method Collection Time Receive d Time (Source) Location / / Volume Laterality 08/09/2020 8:45 AM 9:01 PHOTOGRAPHY COORDINATOR AM PHOTOGRAPHY COORDINATOR Catina Ha MD LAB - BLOOD ORDERABLES Performing Organization Address City/State/ZIP Code Phon e Number [place] [phone] [facility] Fibrinogen activity (08/09/2020 8:45 AM PHOTOGRAPHY COORDINATOR) athologist Signature Fibrinogen 210 200 - 420 08/09/2020 [facility] mg/dL 9:15 AM [facility] Specimen Anatomical Collection Method Collection Time Receive d Time (Source) Location / / Volume Laterality 08/09/2020 8:45 AM 9:01 PHOTOGRAPHY COORDINATOR AM PHOTOGRAPHY COORDINATOR Catina Ha MD LAB - BLOOD ORDERABLES Performing Organization Address City/[facility]/ZIP Code Phon e Number [address] [address] [facility] (ABNORMAL) CBC with platelets (08/09/2020 8:45 AM PHOTOGRAPHY COORDINATOR) [facility] gist Method Time Signature WBC 6.5 4.0 - 11.0 08/09/2020 [facility] 10e9/L 9:06 AM [facility] RBC Count 3.70 (L) 3.8 - 5.2 08/09/2020 [facility] 10e12/L 9:06 AM [facility] Hemoglobin 11.2 (L) 11.7 - 08/09/2020 [facility] 15.7 g/dL 9:06 AM [facility] Hematocrit 33.1 (L) 35.0 - 08/09/2020 [facility]ITY 47.0 % 9:06 AM [facility] MCV 90 78 - 100 08/09/2020 [facility] fl 9:06 AM [facility] MCH 30.3 26.5 - 08/09/2020 [facility] 33.0 pg 9:06 AM [facility] MCHC 33.8 31.5 - 08/09/2020 [facility] 36.5 g/dL 9:06 AM [facility] RDW 11.9 10.0 - 08/09/2020 [facility] 15.0 % 9:06 AM [facility] Platelet Count 285 150 - 450 08/09/2020 [facility] 10e9/L 9:06 AM [facility] Specimen Anatomical Collection Method Collection Time Receive d Time (Source) Location / / Volume Laterality 08/09/2020 8:45 AM 9:01 PHOTOGRAPHY COORDINATOR AM [facility] Catina Ha MD LAB - BLOOD ORDERABLES Performing Organization Address City/State/ZIP Code Phon e Number [facility] [address] [place] [address] [facility] (ABNORMAL) Arterial Panel (08/09/2020 8:45 AM [facility]) [facility] gist Method Time Signature pH Arterial 7.47 (H) 7.35 - 08/09/2020 [facility] 7.45 pH 9:07 AM [facility] pCO2 Arterial 35 35 - 45 08/09/2020 [facility] mm Hg 9:07 AM [facility] pO2 Arterial 305 (H) 80 - 105 08/09/2020 [facility] mm Hg 9:07 AM [facility] Bicarbonate 25 21 - 28 08/09/2020 [facility] Arterial mmol/L 9:07 AM [facility] Base Excess Art 1.6 mmol/L 08/09/2020 [facility] 9:07 AM [facility] Comment: Reference range: -9.0 to 1.8 FIO2 STAT 08/09/2020 9:02 AM [facility] Comment: FIO2 100% OR17 Sodium 139 133 - 144 08/09/2020 9:07 AM [facility] mmol/L [facility] Potassium 3.4 3.4 - 5.3 08/09/2020 9:07 AM [facility] mmol/L [facility] Hemoglobin 11.2 (L) 11.7 - 15.7 08/09/2020 9:07 AM [facility] IN g/dL [facility] Glucose 126 (H) 70 - 99 mg/dL 08/09/2020 9:07 AM [facility] Calcium Ionized 4.5 4.4 - 5.2 mg/dL 08/09/2020 9:07 AM [facility] Whole Blood [facility] Specimen Anatomical Collection Method Collection Time Receive d Time (Source) Location / / Volume Laterality 08/09/2020 8:45 AM 9:01 PHOTOGRAPHY COORDINATOR AM PHOTOGRAPHY COORDINATOR Catina Ha MD LAB - BLOOD ORDERABLES Performing Organization Address City/State/ZIP Code Phon e Number [address] [address] [facility] Blood component (08/09/2020 7:30 AM PHOTOGRAPHY COORDINATOR) [facility] gist Method Time Signature Unit Number [id number] 08/09/2020 [facility] 8:57 AM [facility] Blood Red Blood 08/09/2020 [facility] Component Cells 8:57 AM [facility] Leukocyte [facility] BANK Division 00 08/09/2020 [facility] Number 8:57 AM [facility] Status of No longer 08/13/2020 [facility] Unit available 3:00 AM [facility] 08/13/2020 HOSPITAL 0300 Blood Product [id number] 08/09/2020 [facility] Code 8:57 AM [facility] Unit Status RET [facility] Specimen Anatomical Collection Method Collection Time Receive d Time (Source) Location / / Volume Laterality 08/09/2020 7:30 AM 7:41 PHOTOGRAPHY COORDINATOR AM PHOTOGRAPHY COORDINATOR Monica Deleon MD LABORATORY Performing Organization Address City/State/ZIP Code Phon e Number [facility] [address] [place], [place] [address] [address], [facility] [address] [place], [place] [address], [facility] [phone] Blood component (08/09/2020 7:30 AM PHOTOGRAPHY COORDINATOR) [facility] gist Method Time Signature Unit Number [id number] 08/09/2020 [facility] 8:57 AM [facility] Blood Red Blood 08/09/2020 [facility] Component Cells 8:57 AM [facility] Leukocyte [facility] BANK Division 00 08/09/2020 [facility] Number 8:57 AM [facility] BANK Status of No longer 08/13/2020 [facility] Unit available 3:00 AM [facility] 08/13/2020 HOSPITAL 0300 Blood Product [id number] 08/09/2020 [facility] Code 8:57 AM [facility] Unit Status RET [facility] Specimen Anatomical Collection Method Collection Time Receive d Time (Source) Location / / Volume Laterality 08/09/2020 7:30 AM 7:41 PHOTOGRAPHY COORDINATOR AM PHOTOGRAPHY COORDINATOR Monica Deleon MD LABORATORY Performing Organization Address City/State/ZIP Code Phon e Number [facility] [address] [place] [address] 55 4[facility] [address] [place] [address] [place] [address] Glucose (08/09/2020 7:30 AM PHOTOGRAPHY COORDINATOR) P athologist Signature Glucose 75 70 - 99 08/09/2020 [facility] mg/dL 8:01 AM [facility] Specimen Anatomical Collection Method Collection Time Receive d Time (Source) Location / / Volume Laterality Blood specimen 08/09/2020 7:30 AM 021 7:43 (specimen) PHOTOGRAPHY COORDINATOR AM PHOTOGRAPHY COORDINATOR Catina Ha MD LAB - BLOOD ORDERABLES Performing Organization Address City/State/ZIP Code Phon e Number [address] [address] [facility] ABO/Rh type and screen (08/09/2020 7:30 AM PHOTOGRAPHY COORDINATOR) [facility] gist Method Time Signature Units Ordered 2 08/09/2020 UN[facility] 8:57 AM [facility] ABO O 08/09/2020 [facility] 8:22 AM [facility] RH(D) Pos [facility] Antibody Neg 08/09/2020 [facility] Screen 8:22 AM [facility] Test Valid University 08/09/2020 [facility] Only At [place] 7:51 AM [facility] w Hospital Specimen 08/12/2020 08/09/2020 [facility] Expires 7:51 AM [facility] Crossmatch Red Blood 08/09/2020 [facility] OF Cells 8:57 AM [facility] Specimen Anatomical Collection Method Collection Time Receive d Time (Source) Location / / Volume Laterality Blood specimen 08/09/2020 7:30 AM 021 7:41 (specimen) PHOTOGRAPHY COORDINATOR AM PHOTOGRAPHY COORDINATOR Monica Deleon MD LAB - BLOOD BANK TEST ORDER Performing Organization Address City/[facility]/ZIP [facility] Phon e Number [place] [id number] [facility] HCG qualitative urine (08/09/2020 7:00 AM PHOTOGRAPHY COORDINATOR) Analysis Performed At Patho logist Time Signature HCG Qual Urine Negative NEG^Negati 08/09/2020 UNIVERSITY ve 7:23 AM [facility] Comment: This test is for screening purposes. ??R esults should be interpreted along with the clinical picture. ??Confirmation te sting is available if warranted by ordering [id number], HCG Quantitative Pregna ncy. Specimen Anatomical Collection Method Collection Time Receive d Time (Source) Location / / Volume Laterality Urine specimen URINE SPECIMEN 08/09/2020 7:00 AM 08/09 7:09 (specimen) OBTAINED BY CLEAN PHOTOGRAPHY COORDINATOR AM PHOTOGRAPHY COORDINATOR CATCH PROCEDURE / Unknown Catina Ha MD LAB - URINE ORDERABLES Performing Organization Address City/[facility]/ZIP Code Phon e Number [address] [address] [facility] LAB RESULT - HIM SCAN (07/25/2020 12:00 AM PHOTOGRAPHY COORDINATOR) Specimen (Source) Anatomical Location Collection Method / [...] kyphoscoliosis), idiopath ic Painful orthopaedic hardware (H) Scoliosis Scoliosis (and kyphoscoliosis), idiopath ic Painful orthopaedic hardware (H) documented in this encounter Admitting Diagnoses Diagnosis Scoliosis Scoliosis (and kyphoscoliosis), idiopath ic Painful orthopaedic hardware (H) documented in this encounter Administered Medications Inactive Administered Medications - up to 3 most recent administrations Medication Order MAR Action Action Date Dose Rate Site acetaminophen (TYLENOL) tablet 650 Given 08/16/2020 8:47 AM PHOTOGRAPHY COORDINATOR 650 mg mg 650 mg, Oral, EVERY 6 HOURS RT, First dose on Sat08/15/20 at 1500, Maximum acetaminophen dose from all sources = 75 mg/kg/day not to exceed 4 grams/day. Given 08/16/2020 2:13 AM PHOTOGRAPHY COORDINATOR 650 mg Given 08/15/2020 8:14 PM PHOTOGRAPHY COORDINATOR 650 mg bisacodyl (DULCOLAX) Suppository 10 mg 10 mg, Rectal, DAILY PRN, constipation, Starting on Sat08/12/20 at 0719, Please give in afternoon if no stool in the morning on 08/12/20. Hol d for loose stools. calcium carbonate (TUMS) chewable tablet 500 Given 07/2021 8:47 AM PHOTOGRAPHY COORDINATOR 500 mg mg 500 mg, Oral, DAILY, First dose (after last reorder) on Sat08/10/20 at 0800 Given 08/15/2020 8:44 AM PHOTOGRAPHY COORDINATOR 500 mg Given 08/14/2020 8:48 AM PHOTOGRAPHY COORDINATOR 500 mg cholecalciferol (VITAMIN D3) 125 mcg (5000 Given 08/16/2020 8:47 AM PHOTOGRAPHY COORDINATOR 125 mcg units) capsule 125 mcg 125 mcg, Oral, DAILY, First dose (after last reorder) on Sat08/10/20 at 0800, Note: 125 mcg = 5000 units Given 08/15/2020 8:44 AM PHOTOGRAPHY COORDINATOR 125 mcg Given 08/14/2020 8:48 AM PHOTOGRAPHY COORDINATOR 125 mcg diazepam (VALIUM) half-tab 2.5 mg Given 08/16/2020 10:08 AM PHOTOGRAPHY COORDINATOR 2.5 mg 2.5 mg, Oral, EVERY 6 HOURS, First dose on Sat08/15/20 at 0930 Given 08/16/2020 4:12 AM PHOTOGRAPHY COORDINATOR 2.5 mg Given 08/15/2020 9:03 PM PHOTOGRAPHY COORDINATOR 2.5 mg hemostatic matrix with thrombin (SURGIFLO) Given 08/09/2020 10:2 3 AM PHOTOGRAPHY COORDINATOR 1 kit kit PRN, Starting on Sat08/09/20 at 0909, Intra-procedure Given 08/09/2020 9:10 AM PHOTOGRAPHY COORDINATOR 1 kit Given 08/09/2020 9:09 AM PHOTOGRAPHY COORDINATOR 1 kit Lidocaine (LIDOCARE) Patch/Med Applied 08/15/2020 3:21 PM 1 patch Other (see 4 % Patch 1 patch PHOTOGRAPHY COORDINATOR comments) 1 patch, Transdermal, EVERY 24 HOURS, [...] % 0.2-0.4 mL Given 08/12/2020 12:56 PM PHOTOGRAPHY COORDINATOR 0.2 mLs Left Arm 0.2-0.4 mL, Other, EVERY 1 HOUR PRN, pain with VAD insertion., Starting on Sat08/12/20 at 1228, Do NOT give if patient has a history of allergy to any local anesthetic or any korey product. MAX dose 1 mL subcutaneously OR intradermally in divided doses as needed for VAD insertion. Given 08/12/2020 12:55 PM PHOTOGRAPHY COORDINATOR 0.2 mLs Righ t Arm lidocaine patch in PLACE First dose on [...] where liposomal bupivacaine injected for 96 hours. naloxone (NARCAN) injection 0.4 mg 0.4 mg, [...] response. norethindrone-ethinyl estradiol Given 08/16/2020 8:48 AM PHOTOGRAPHY COORDINATOR 1 t ablet (MICROGESTIN 08/24) 1-20 MG-MCG per tablet 1 tablet 1 tablet, Oral, DAILY, First dose on Sat08/10/20 at 0800 Given 08/15/2020 8:45 AM PHOTOGRAPHY COORDINATOR 1 tablet Given 08/14/2020 8:49 AM PHOTOGRAPHY COORDINATOR 1 tablet ondansetron (ZOFRAN) injection 4 mg Given 08/12/2020 5:43 AM PHOTOGRAPHY COORDINATOR 4 mg 4 mg, Intravenous, Administer over 5 Minutes, EVERY 6 HOURS PRN, nausea, vomiting, Starting on Sat08/10/20 at 0040, Irritant. For ordered IV doses 0.1-4 mg, give IV Push undiluted over 2-5 minutes. Given 08/12/2020 12:42 AM PHOTOGRAPHY COORDINATOR 4 mg Given 08/11/2020 6:10 PM PHOTOGRAPHY COORDINATOR 4 mg oxyCODONE (ROXICODONE) tablet 5 mg Given 08/16/2020 1:12 PM PHOTOGRAPHY COORDINATOR 5 mg 5 mg, Oral, EVERY 4 HOURS PRN, moderate to severe pain, Starting on Sat08/15/20 at 1143 Given 08/16/2020 9:15 AM PHOTOGRAPHY COORDINATOR 5 mg Given 08/16/2020 5:21 AM PHOTOGRAPHY COORDINATOR 5 mg polyethylene glycol (MIRALAX) Packet 17 g Given 08/14/2020 1:45 PM PHOTOGRAPHY COORDINATOR 17 g 17 g, Oral, DAILY PRN, [...] Packet 17 g Given 08/12/2020 8:46 AM PHOTOGRAPHY COORDINATOR 17 g 17 g, Oral, 2 TIMES [...] capsule 150 mg Given 08/16/2020 8:47 AM PHOTOGRAPHY COORDINATOR 150 mg 150 mg, Oral, 2 TIMES DAILY, First dose (after last modification) on Sat08/15/20 at 2000 Given 08/15/2020 8:14 PM PHOTOGRAPHY COORDINATOR 150 mg sennosides (SENOKOT) tablet 8.6 mg Given 08/14/2020 8:48 AM PHOTOGRAPHY COORDINATOR 8.6 mg 8.6 mg, Oral, 2 TIMES DAILY, First dose on Sat08/10/20 at 1100, Hold for loose stools. Given 08/12/2020 8:46 AM PHOTOGRAPHY COORDINATOR 8.6 mg Given 08/11/2020 9:03 PM PHOTOGRAPHY COORDINATOR 8.6 mg sertraline (ZOLOFT) tablet 100 mg Given 08/16/2020 8:47 AM PHOTOGRAPHY COORDINATOR 100 mg 100 mg, Oral, DAILY, First dose on Sat08/10/20 at 0800 Given 08/15/2020 8:44 AM PHOTOGRAPHY COORDINATOR 100 mg Given 08/14/2020 8:48 AM PHOTOGRAPHY COORDINATOR 100 mg sodium chloride 0.9% (bottle) irrigation Given 08/09/2020 12:16 PM PHOTOGRAPHY COORDINATOR 500 mLs PRN, Starting on Sat08/09/20 at 1216, Intra-procedure sodium chloride 0.9% infusion Rate/Dose Change 08/14/2020 10:16 PM PHOTOGRAPHY COORDINATOR 3 mL/hr at 3 mL/hr, Intravenous, CONTINUOUS, carrier, Starting on Ariela 08/11/20 at 2100, Until Sat08/16/20 at 1542 Rate/Dose Verify 08/14/2020 8:00 PM PHOTOGRAPHY COORDINATOR 15 mL/hr Rate/Dose Verify 08/14/2020 3:00 PM PHOTOGRAPHY COORDINATOR 15 mL/hr tranexamic acid (LYSTEDA) half-tab 975 m g Given 08/16/2020 10:08 AM PHOTOGRAPHY COORDINATOR 975 mg 975 mg, Oral, EVERY 6 HOURS, First dose on Sat08/10/20 at 1600 Given 08/16/2020 4:12 AM PHOTOGRAPHY COORDINATOR 975 mg Given 08/15/2020 11:39 PM PHOTOGRAPHY COORDINATOR 975 mg documented in this encounter Active and Recently Administered Medications Times are shown in PHOTOGRAPHY COORDINATOR. Scheduled Medication Order 08/14/2020 08/15/2020 08/16/2020 acetaminophen (TYLENOL) tablet 650 mg 15 08 (Given - Provider: Tess Gutierrez RN)2013 (Given - Provider: Romana Fernandez RN) 021 (Given - Provider: Tiff Collins RN)0847 (Given [...] RN) 0847 (Given - Provider: Tess Gutierrez, RUTH) 500 mg, Oral, DAILY, First dose (after last reorder) on Sat at 0800 cholecalciferol (VITAMIN D3) 125 mcg (5000 units) caps ule 125 mcg 0848 (Given - Provider: Tonya Hull RN) 0844 (Given - Provider: Tess Gutierrez RN) 0847 (Given - Provider: Tess Gutierrez RN) 125 mcg, Oral, DAILY, First dose (after last reorder) on Sat08/10/20 at 0800, Note: 125 mcg = 5000 units diazepam (VALIUM) half-tab 2.5 mg 0957 ( Given - Provider: Tess Gutierrez, RN)1545 (Given - Provider: Marylu Morales, RN)2103 (Given - Provider: Henna Murray, RUTH) 0412 (Given - Provider: Tiff Collins , RUTH)1008 (Given - Provider: Tess Gutierrez, RUTH) 2.5 mg, Oral, EVERY 6 HOURS, First dose on Sat08/15/20 at 0930 diazepam (VALIUM) injection 2.5 mg (CANCELED) 0207 (Gi abiola - Provider: David Ayala, RUTH)0848 (Given - Provider: Tonya Hull, RN)1426 (Given - Provider: Tonya Hull, RN)2010 (Given - Provider: Berlin Downs, RUTH) [...] RN)1400 (Canceled Entry - Provider: Robert Ying [facility] - Comment: Automatically canceled at discontinue of medication order) 1 patch, Transdermal, EVERY 24 HOURS, Ad gun numberer over 12 Hours, First dose on Sat08/14/20 [...] back) 0417 (Patch/Med Removed - Provider: Tiff Collins, RUTH)1430 (Canceled Entry - Provider: Orders Generic Provider - Comment: Automatically canceled at discontinue of medication order) 1 patch, Transdermal, EVERY 24 HOURS, Ad gun numberer over 12 Hours, First dose (after last reorder) on 08/15/20 at 1430, Apply one half of patch [...] RN) 0848 (Given - Provider: Tess Gutierrez, RN ) 1 tablet, Oral, DAILY, First dose on Sat08/10/20 at 0800 OLANZapine zydis (zyPREXA) ODT half-tab 2.5 mg (CANCEL ED) 2204 (Given - Provider: Berlin Downs, RN) 2.5 mg, Oral, AT BEDTIME, First dose [...] mg (COMPLETED) 2102 (Given - Provider: Henna Murray RN) 5 mg, Oral, ONCE, On Sat08/15/20 at 2100, For 1 dose polyethylene glycol (MIRALAX) Packet 17 g 0849 (Not Gi abiola - Provider: Tonya Hull, RUTH - Reason: Patient/family refused)2012 (Not Given - Provider: Berlin Downs RN - Reason: Patient/family refused) 0832 (Not Given - Provider: Tess Gutierrez RN - Reason: Other - Comment: having loose stools)2015 (Not Given - Provider: Romana Fernandez, RUTH - Reason: Contraindicated) 0851 (Not Given - [...] 150 mg 2013 (Given - Provider: Romana Fernandez, RUTH) 846 (Given - Provider: Tess Gutierrez, RN ) 150 mg, Oral, 2 TIMES DAILY, First dose (after last modification) on 08/15/20 at 2000 pregabalin (LYRICA) capsule 75 mg (CANCELED) 0848 (Giv en - Provider: Tonya Hull RN)2011 (Given - Provider: Berlin Downs, RUTH) 0844 (Given - Provider: Tess Gutierrez, RN) 75 mg, Oral, 2 TIMES DAILY, [...] RUTH) 0847 (Given - Provider: Tess Gutierrez, RUTH) 100 mg, Oral, DAILY, First dose on Sat08/10/20 at 0800 tranexamic acid (LYSTEDA) half-tab 975 mg 0411 (Given - Provider: David Ayala, RUTH)1009 (Given - Provider: Tonya Hull, RUTH)1608 (Given - Provider: Tiff Gonzales, RUTH)2205 (Given - Provider: [place] Downs, RUTH) 0424 (Given - Provider: [place] Downs RN)1005 (Given - Provider: Tess Gutierrez RN)1749 (Given - Provider: Henna Murray, RUTH)2339 (Given - Provider: Henna Murray, RUTH) 0412 (Given - Provider: Tiff Collins RN)1008 (Given - Provider: Tess Gutierrez RN) 975 mg, Oral, EVERY 6 HOURS, First dose on 08/10/20 at 1600 Continuous Medication Order 08/14/2020 08/15/2020 08/16/2020 fentaNYL (SUBLIMAZE) CONTROL ROOM TENDER 50 mcg/mL OPIOID NAIVE (CANCE LED) 0715 (Rate/Dose Verify - Provider: David Ayala RN)0716 (Rate/Dose Verify - Provider: David Ayala RN - Comment: double-checked with Tonya Villagomez RN)1200 (Stopped - Provider: Tonya Hull RN) Continuous Rate: 0 mcg/hr, CONTROL ROOM TENDER Dose: 20 mcg, CONTROL ROOM TENDER Lockout: 60 Minutes, One Hour Limit: 25 mcg, Clinician Bolus (one time dose): 25 mcg, Starting on 08/13/20 at 1800, Hold the dose for analgesic side ef fects. Notify the provider to assess for uncontrolled pain or analgesic side effects. Do NOT give any additional opioids while on CONTROL ROOM TENDER unless provider authorized., Intravenous ketamine (KETALAR) [...] 1.5 mL/hr, Intra venous, CONTINUOUS, Starting on 08/14/20 at 2030, Population for use? Analgesia ketamine (KETALAR) 25 mg/mL in sodium ch loride 0.9 % 50 mL HIGH CONCENTRATION infusion (CANCELED) 0718 (Rate/Dose Verify - Provider: Alexsander Ayala RN - Comment: double-checked with Tonya Villagomez RN)0800 (Rate/Dose Verify - Provider: Tonya Hull, RUTH)1602 (Rate/Dose Verify - Provider: Tiff Gonzales RN [...] (CANCELED) 0023 (New Bag - Provider: David Ayala, RUTH - Comment: see IV/PO titrate order) at 3 mL/hr, Intravenous, CONTINUOUS, Car rier and offline cutter infusion, Starting on Ariela 08/11/20 at 1800, Until Sat08/14/20 at 1313 sodium chloride 0.9% infusion 1500 (Rate/Dose Verify - Provider: Tiff Gonzales RN - Comment: rate for ketamine and PIV not hurting)2000 (Rate/Dose Verify - Provider: Berlin Downs RN - Comment: running at 15/hr upon arrival) 1205 (Stopped - Provider: Tess Gutierrez RN) at 3 mL/hr, Intravenous, CONTINUOUS, car rier, Starting on Ariela 08/11/20 at 2100, Until Sat08/16/20 at 1542 2216 (Rate/Dose Change - Provider: Berlin Downs RN) sodium chloride 0.9% infusion (CANCELED) 0550 (New Bag - Provider: David Ayala, RUTH)1200 (Rate Change (Transfusion) - Provider: Tonya Hull RN) at 0-100 mL/hr, Intravenous, CONTINUOUS, IV/PO titrate. Patient to get 400 mls of fluids every 4 hours, Starting on Ariela 08/11/20 at 2300, Until Sat08/14/20 at 1147 PRN Medication Order 08/14/2020 08/15/2020 08/16/2020 bisacodyl (DULCOLAX) Suppository 10 mg 10 mg, Rectal, DAILY PRN, constipation, Starting on Sat08/12/20 at 0719, Please give in afternoon if no stool in the morning on 08/12/20. Hold for loose stools. fentaNYL (PF) (SUBLIMAZE) injection 25 mcg (CANCELED) 1715 (Given - Provider: Tiff Gonzales, RN - Comment: verified with Sherrie Morgan RN) 25 mcg, Intravenous, EVERY 2 HOURS PRN, breakthrough pain, Starting on Sat08/14/20 at 1312, For ordered IV doses 1-100 mcg give IV Push undiluted over a minimum of 3-5 minutes. HYDROcodone-acetaminophen (NORCO) 5-325 MG per tablet 1 tablet (CANCELED) 0022 (Given - Provider: David Ayala, RN)041 (Given - Provider: David Ayala, RN)1009 (Given - Provider: Tonya Hull, RUTH)1608 (Given - Provider: Tiff Gonzales RN)2011 (Given - Provider: Berlin Downs, RUTH) 004 (Given - Provider: [place] Downs, RUTH)0424 (Given - Provider: [place] Downs, RUTH)0844 (Given - Provider: Tess Gutierrez RN) 1 tablet, Oral, EVERY 4 HOURS PRN, moder ate to severe pain, Starting on 08/13/20 at 1331, Maximum acetaminophen dose from all sources= 75 mg/kg/day not to exceed 4 grams lidocaine (LMX4) cream Topical, EVERY 1 HOUR PRN, pain, procedu ral related to poke., Starting Tu08/09/20 at 1344, Do NOT give if patient [...] 5 mg 1204 (Given - Provider: Tess Gutierrez RN)1618 (Given - Provider: Henna Murray RN)2017 (Given - Provider: Romana Fernandez RN) 0106 (Given - Provider: Tiff Collins RN)0521 (Given - Provider: Tiff Collins, RUTH)0915 (Given - Provider: Tess Gutierrez RN)1312 (Given - Provider: Tess Gutierrez RN) 5 mg, Oral, EVERY 4 HOURS PRN, moderate to severe pain, Starting on Sat08/15/20 at 1143 polyethylene glycol (MIRALAX) Packet 17 g 1345 (Given - Provider: Tonya Hull RN) 17 g, Oral, DAILY PRN, constipation, [...] stools. 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 Relationship Specialty Start Date End Date Josh Carrero PCP - General Family Medicine 08/09/[address] [address] Catina Ha MD MD Orthopedics 03/08/[address] [place], [place] [id number] [place], [place] [id number] Mariposa Atwood Assigned PCP 04/29/20 11/12/20 MD [address] [place] [address] Catina Ha MD Assigned Musculoskeletal 05/27/20 [address] [facility] [address] Provider [place], [place] [id number] Eugenio Finney Assigned Pediatric 06/19/2005/07 MD David Specialist Provider [address] [facility] [address] [place], [place] [id number] documented as of this encounter
--- OUTSIDE RECORDS SUMMARY | 2022-06-18 12:00 | XMS_ITS | Encounter Summary ---
:2000 Author Organization [place] Address [address] [facility] [place] [address] Care Team Providers Name Role Phone Julian Spencer MD Unavailable Mariposa Atwood MD Unavailable [phone] Julian Spencer MD Unavailable Eugenio Finney MD Unavailable [phone] Josh Carrero Primary Care Provider Reason [...] Instrumentation Thoracic 3 - Lumbar 4 [address] [place] [address] Phone: Fax: Referral ID Status Reason Start Date Expiration Date Visits Requ ested Visits Authorized [id number] 1 1 Encounter Details Date Type Department Care Team Description 08/09/2020 Anesthesia Event M [facility] Monica Deleon MD [address] [place] [address] PeriOp Services Bella Givens MD [address] [facility] [address] [place] [address] [address] [place] [address] Anesthesia Record Procedure Summary Procedure Name Responsible Anesthesia Start Anesthesia Stop Anesthesiologist Time Time Reinsert Segmental Monica Deleon MD 08/09/20 0818 08/09/20 1336 Instrumentation Thoracic 4 - Lumbar 4, pseudarthrosis repair four sites, image guided surgery, Scar Revision, Skin Biopsy (Spine) Events Date Time Event Comment 08/09/2020 0818 An Start 0818 An Start Data 0823 An Induction 0825 An Intubation 0837 Initial Antibiotic (Started) 0837 Anesthesia Complete 0909 AN INCISION 1137 Quick Note Surgeon requesti ng a wake-up test 1308 AN Extubation All extubation c riteria met prior to removal. 1316 an stop data 1336 An Stop Electronically s igned by Maikel Mckinnon APRN CRNA on August 09, 2020 1:36 PM Name Total midazolam 1mg/mL 1 mg fentaNYL (SUBLIMAZE) injection 50 mcg lidocaine 2% 50 mg propofol (DIPRIVAN) injection 10 mg/mL vial 140 mg rocuronium 10mg/mL 65 mg dexamethasone 4mg/mL 4 mg ondansetron 2mg/mL 4 mg HYDROmorphone 0.25 mg dexmedetomidine (PRECEDEX) 4 mcg/mL bolus 12 mcg ePHEDrine 5 mg/mL 10 mg phenylephrine (ALYCE-SYNEPHRINE) injection 1,050 mcg sugammadex 200 mg/2ml 120 mg ketamine injection 10 mg/mL 55 mg ceFAZolin (ANCEF) intermittent infusion 2 g in 100 mL dextrose PRE-MIX 2 g tranexamic acid (CYKLOKAPRON) 1,630 mg in sodium chlor brie 0.9 % 50 mL 1,630 mg bolus tranexamic acid (CYKLOKAPRON) 5 g in sodium chloride 0 .9 % 250 mL 2,488.75 mg infusion lidocaine 400 mg in D5W 50 mL (ADULT STD) - for ANALGE ROB 265.3 mg phenylephrine 0.1 mg/mL infusion (mcg/kg/min) 2.87 mg propofol infusion (mcg/kg/min) 191.26 mg ceFAZolin (ANCEF) 1 g vial to attach to NS 100 ml bag for ADULT or 50 ml 1 g bag for PEDS remifentanil (ULTIVA) 500 mcg in sodium chloride 0.9 % 10 mL infusion 0.18 mg LR 1,050 mL LR 0 mL albumin 5% 250 mL Agents Name NO HELIOX O2 N2O Air Exp Sevoflurane Exp Isoflurane Exp Desflurane Exp N2O Ins Sevoflurane Ins Isoflurane Ins Desflurane O2 Auxiliary Blood No blood administrations on file. Lines, Drains, and Airways Type Details Placement Removal Peripheral IV 08/09/20; 0736; 18 G; 08/09/20 0736 by 08/12/20 1215 by Right; Wrist; Anyi Polk RN Simon, Aubree, RN Chlorhexidine; None; Tolerated well Arterial Line 08/09/20; 0800; Left; 08/09/20 0800 by 08/10/202040 by Radial; Sutured; Violet Ramirez Harley, Ka therine, 08/10/20; 2040; RN RUTH Occluded ETT Placement Date: 08/09/20824 by 08/09/20 1308 b y 08/09/20; Placement Maikel Mckinnon Leyh, Richard Time: 824 (created STENOGRAPHIC COURT REPORTERJoseph Boogie, HANNA MALAVE via procedure documentation); Mask Ventilation: 1; Induction Type: Intravenous; Ease of Intubation: Easy; Technique: Direct laryngoscopy; ETT Type: Single; Tube Size: 6.5 mm; Grade View: 1; Adjucts: Stylet; Placement Person: [employer]; Attempts: 1; Depth: 22 cm Peripheral IV 08/09/20; 0832; 16 G; 08/09/20 0832 by 08/10/202040 by Left; Hand; Alcohol; Maikel Mckinnon Harle y, Katherine, None; Tolerated well [employer]ENOGRAPH[address] COURT REPORTER [employer] RN Urethral Catheter 08/09/20; 0845; No; 08/09/20 0845 by 08/10/20 1636 by Anesthesia Brooklyn Stephenson, Phil Baker RN Incision/Surgical Site 08/09/20; 0939; Back; 08/09/20 0939 by 0142 by 08/29/20; 0142 Brooklyn Stephenson RN Inpatient, Nu rse Closed/Suction Drain 08/09/20; 1221; 1; 08/09/20 1221 by 1 0000 by Right; Back; Brooklyn Stephenson, Clarissa Osuna, Emily; Charisma Castrejon RN documented in this encounter Social History Tobacco [...] with No / Unsure 08/09/2020 6:36 AM ASSOCIATE MEDICAL DIRECTOR someone who was confirmed or suspected to have Coronavirus / COVID-19? documented as of this encounter OR Notes Anesthesia Postprocedure Evaluation - Monica Garrett MD - 08/09/2020 2:56 PM CST Anesthesia POST Procedure Evaluation Patient: Dakota Casiano Gender: female Age: [age] year old : 2000 Preoperative Diagnosis: Scoliosis [M41.9] Painful orthopaedic hardware (H) [T84.84XA] Procedure(s): Reinsert Segmental Instrumentation Thoracic 4 - Lumbar 4, pseudarthrosis repair four sites, image guided surgery, Scar Revision, Skin Biopsy Postop Comments: No value filed. Anesthesia Type: General Disposition: ICU ICU Sign Out: Anesthesiologist/ICU physician sign out WAS performed Postop Pain Control: Uneventful Sign Out: Well controlled pain PONV: No Neuro/Psych: Uneventful Sign Out: Acceptable/Baseline neuro status Airway/Respiratory: Uneventful Sign Out: Acceptable/Baseline resp. status CV/Hemodynamics: Uneventful Sign Out: Acceptable CV status Other NRE: NONE DID A NON-ROUTINE EVENT OCCUR? No Event details/Postop Comments: Patient comfortable, requesting water. No bleeding visualized Last Anesthesia Record Vitals: [employer] VITALS 08/09/2020 1246 - 08/09/2020 1346 08/09/2020 EKG: NSR Last PACU Vitals: Vitals Value Taken Time BP 93/48 08/09/20 1357 Temp 37.1 ??C (98.8 ??F) 08/09/20 1330 Pulse 65 08/09/20 1455 Resp 6 08/09/20 1455 SpO2 99 % 08/09/20 1455 Temp src Esophageal 08/09/20 1330 NIBP Pulse SpO2 Resp Temp Ht Rate Temp 2 Vitals shown include unvalidated device data. Electronically Signed By: Monica Osborne MD, August 09, 2020, 2:56 PM CIATE MEDICAL DIRECTOR Anesthesia Procedure Notes - Monica Garrett MD - 08/09/2020 2:54 PM CSTAssociated Order(s): A Line Catheter Placement Arterial Line Procedure Note Staff - Anesthesiologist: Monica Garrett MD Performed By: anesthesiologist Location: In OR After Induction Procedure Start/Stop Times: patient identified, IV checked, site marked, risks and benefits discussed, informed consent, monitors and equipment checked, pre-op evaluation and at physician/surgeon's request Correct Patient: Yes Correct Position: Yes Correct Site: Yes Correct Procedure: Yes Correct Laterality: N/A Site Marked: N/A Line Placement: Procedure: Arterial Line Insertion Site: Radial Insertion laterality: Left Skin Prep: Chloraprep Patient Prep: patient draped, mask, sterile gloves, sterile gown, hat and hand hygiene Local skin infiltration: None Ultrasound Guided?: Yes Artery evaluated via ultrasound confirming patency. Using realtime imaging, the artery was punctured and the needle was observed entering the artery. A permanent image is NOT entered into the patient's record. Catheter size: 20 gauge, Quick cath Cath secured with: suture Dressing: Tegaderm Complications: None obvious Arterial waveform: Yes IBP within 10% of NIBP: Yes CIATE MEDICAL DIRECTOR Anesthesia Procedure Notes - Maikel Mckinnon APRN CRNA - 08/09/2020 9:24 AM CSTAssociated Order(s): Airway Airway Date/Time: 08/09/2020 8:25 AM Patient location during procedure: OR Staff - Performed By: [employer] Consent for Airway Urgency: elective Indications and Patient Condition Indications for airway management: ann-procedural Induction type:intravenousMask difficulty assessment: 1 - vent by mask Final Airway Details Final airway type: endotracheal airway Successful airway:ETT - single Endotracheal Airway Details ETT size (mm): 6.5 Cuffed: yes Successful intubation technique: direct laryngoscopy Grade View of Cords: 1 Adjucts: stylet Measured from: lips Secured at (cm): 22 Secured with: silk tape Bite block used: Soft Post intubation assessment Placement verified by: capnometry, equal breath sounds and chest rise Number of attempts at approach: 1 Number of other approaches attempted: 0 Secured with:silk tape Ease of procedure: easy Dentition: Intact CIATE MEDICAL DIRECTOR Anesthesia Preprocedure Evaluation - Monica Garrett MD - 08/08/2020 8:19 PM CST Anesthesia Pre-Procedure Evaluation Patient: Dakota Casiano Gender: female Age: [age] year old : 2000 Preoperative Diagnosis: Scoliosis [M41.9] Painful orthopaedic hardware (H) [T84.84XA] Procedure(s): Removal of Segmental Instrumentation Thoracic 3 - Lumbar 4 LABS: CBC: Lab Results Component Value Date WBC 7.7 06/20/2011 WBC 5.1 12/08/2008 HGB 12.8 06/20/2011 HGB 12.7 12/08/2008 HCT 37.3 06/20/2011 HCT 37.8 12/08/2008 PLT 261 06/20/2011 PLT 267 12/08/2008 BMP: Lab Results Component Value Date NA 142 12/08/2008 NA 138 08/19/2004 POTASSIUM 4.1 12/08/2008 POTASSIUM 4.3 08/19/2004 CHLORIDE 105 12/08/2008 CHLORIDE 101 08/19/2004 CO2 26 12/08/2008 CO2 27 08/19/2004 BUN 9 12/08/2008 BUN 12 08/19/2004 CR 0.42 12/08/2008 CR 0.30 08/19/2004 GLC 86 12/08/2008 GLC 90 08/19/2004 COAGS: Lab Results Component Value Date PTT 31 06/20/2020 INR 1.08 06/20/2020 FIBR 279 06/20/2020 POC: No results found for: BGM, HCG, HCGS OTHER: Lab Results Component Value Date IMELDA 10.0 12/08/2008 ALBUMIN 4.5 06/20/2011 PROTTOTAL 7.3 12/08/2008 ALT 26 06/20/2011 AST 40 12/08/2008 ALKPHOS 252 12/08/2008 BILITOTAL 0.4 12/08/2008 TSH 3.01 06/20/2020 CRP <2.9 06/20/2020 SED 3 06/20/2011 Preop Vitals BP Readings from Last 3 Encounters: 10/15/17 102/56 Pulse Readings from Last 3 Encounters: 10/15/17 62 Resp Readings from Last 3 Encounters: 10/15/17 SpO2 Readings from Last 3 Encounters: 10/15/17 98% Temp Readings from Last 1 Encounters: 10/15/17 36.5 ??C (97.7 ??F) Ht Readings from Last 1 Encounters: 07/21/20 1.61 m (5' 3.39) (36 %, Z= -0.35)* * Growth percentiles are based on CDC (Girls, 2-20 Years) data. Wt Readings from Last 1 Encounters: 07/21/20 54.3 kg (119 lb 9.6 oz) (36 %, Z= -0.35)* * Growth percentiles are based on CDC (Girls, 2-20 Years) data. Estimated body mass index is 20.93 kg/m?? as calculated from the following: Height as of 07/21/20: 1.61 m (5' 3.39). Weight as of 07/21/20: 54.3 kg (119 lb 9.6 oz). LDA: Past Medical History: Diagnosis Date ??? PONV (postoperative nausea and vomiting) History reviewed. No pertinent surgical history. Allergies Allergen Reactions ??? Dust Mites Itching Other reaction(s): Itching,Watering Eyes ??? Hydromorphone Other (See Comments) Pt did not remember what happened, she became very angry and aggressive Just the pill form. Pt did not remember what happened, she became very angry and aggressive Anesthesia Evaluation . Pt has had prior anesthetic. Type: General History of anesthetic complications - PONV ROS/MED HX ENT/Pulmonary: - neg pulmonary ROS Neurologic: Cardiovascular: - neg cardiovascular ROS METS/Exercise Tolerance: Hematologic: Comments: Uncertain bleeding disorder, likely [place] Platelet. High dose TXA 30 mg/kg bolus, followed by 10 mg/kg per hour as a drip. Serial TEGs and platelets on standby. Hematology consult, will be in the OR. (+) Other Hematologic Disorder- Musculoskeletal: - neg musculoskeletal ROS GI/Hepatic: Renal/Genitourinary: Endo: Psychiatric: Comment: Anxious about upcoming surgery - neg psychiatric ROS Infectious Disease: Malignancy: Other: JZG FV AN PHYSICAL EXAM Assessment: ASA SCORE: 2 Smoking Status: Non-Smoker/Unknown Plan: Anes. Type: General Pre-Medication: Midazolam Induction: IV (Standard) Airway: ETT; Oral Access/Monitoring: PIV; 2nd PIV; A-Line (a line for frequent TEGs if not reliable IV) Maintenance: Balanced Blood products: PLT Drips/Meds: Dexmedetomidine Postop Plan: Postop Pain: Opioids Postop Sedation/Airway: Not planned PONV Management: Adult Risk Factors: Female, H/o PONV or Motion Sickness, Non-Smoker, Postop Opioids Prevention: Ondansetron, Dexamethasone, Scopolamine Monica Osborne MD CIATE MEDICAL DIRECTOR documented in this encounter Miscellaneous Notes Anesthesia Care Transfer Note - Maikel Mckinnon APRN [employer] - 08/09/2020 1:36 PM CST Patient: Dakota Casiano Procedure(s): Reinsert Segmental Instrumentation Thoracic 4 - Lumbar 4, pseudarthrosis repair four sites, image guided surgery, Scar Revision, Skin Biopsy Diagnosis: Scoliosis [M41.9] Painful orthopaedic hardware (H) [T84.84XA] Diagnosis Additional Information: No value filed. Anesthesia Type: General Note: Airway :Face Mask Patient transferred to:ICU ICU Handoff: Call for PAUSE to initiate/utilize ICU HANDOFF, Identified Patient, Identified Responsible Provider, Reviewed the Pertinent Medical History, Discussed Surgical Course, Reviewed Intra-OP Anesthesia Management and Issues during Anesthesia, Set Expectations for Post Procedure Period and Allowed Opportunity for Questions and Acknowledgement of Understanding Vitals: (Last set prior to Anesthesia Care Transfer) [employer] VITALS 08/09/2020 1246 - 08/09/2020 1336 08/09/2020 Pulse: 96 SpO2: 100 % Electronically Signed By: Maikel Mckinnon APRN [employer] August 09, 2020 1:36 PM CIATE MEDICAL DIRECTOR documented in this encounter Plan of Treatment Not on filedocumented as of this encounter Procedures Procedure Name Priority Date/Time Associated Comments Diagnosis FV AN A-LINE DUMMY Routine 08/09/2020 2:54 PM Res ults for this PERFORMABLE ASSOCIATE MEDICAL DIRECTOR procedure are i n the results section. ANE AIRWAY ETT Routine 08/09/2020 9:24 AM Results for this PERFORMABLE ASSOCIATE MEDICAL DIRECTOR procedure are i n the results section. documented in this encounter Results FV AN A-LINE DUMMY PERFORMABLE (08/09/2020 2:54 PM ASSOCIATE MEDICAL DIRECTOR) Narrative Monica Garrett MD - 08/09/19 21 2:54 PM ASSOCIATE MEDICAL DIRECTOR Monica Garrett MD ? 08/09/2020 ??2:55 PM Arterial Line Procedure Note Staff - Anesthesiologist: ??Taniya Garrett MD Performed By: anesthesiologist Location: In OR After Induction Procedure Start/Stop Times: ??patient identified, IV checked, site marked, risks and benefits discussed, informed consent, monitors an d equipment checked, pre-op evaluation and at physician/surgeon's re quest ?Correct Patient: Yes ?Correct Position: Yes ?Correct Site: Yes ?Correct Procedure: Yes ?Correct Laterality: ??N/A ??Site Marked: ??N/A Line Placement: ??Procedure: ??Arterial Line ??Insertion Site: ??Radial ??Insertion laterality: ??Left ??Skin Prep: Chloraprep ?Patient Prep: patient draped, mask, s terile gloves, sterile gown, hat and hand hygiene ?Local skin infiltration: ??None ??Ultrasound Guided?: Yes ?Artery evaluated via ultrasound naei philly patency. ?? Using realtime imaging, the artery was punctured and th e needle was observed entering the artery. ?A permanent image is NOT entered into the patient's record. ?Catheter size: ??20 gauge, Quick cath ??Cath secured with: suture ?Dressing: ??Tegaderm ??Complications: ??None obvious ??Arterial waveform: Yes ?IBP within 10% of NIBP: Yes ?? Monica Deleon MD [place] ANESTHESIA ANE AIRWAY ETT PERFORMABLE (08/09/2020 9:24 AM ASSOCIATE MEDICAL DIRECTOR) Narrative Maikel Mckinnon APRN [employer] - 2020 9:24 AM ASSOCIATE MEDICAL DIRECTOR Maikel Mckinnon APRN [employer] ? 08/09/2020 ??9:25 AM Airway Date/Time: 08/09/2020 8:25 AM Patient location during procedure: OR Staff - Performed By: [employer] Consent for Airway Urgency: elective Indications and Patient Condition Indications for airway management: ann- procedural Induction type:intravenousMask difficult y assessment: 1 - vent by mask Final Airway Details Final airway type: endotracheal airway Successful airway:ETT - single Endotracheal Airway Details ETT size (mm): 6.5 Cuffed: yes Successful intubation technique: direct laryngoscopy Grade View of Cords: 1 Adjucts: stylet Measured from: lips Secured at (cm): 22 Secured with: silk tape Bite block used: Soft Post intubation assessment Placement verified by: capnometry, equal breath sounds and chest rise Number of attempts at approach: 1 Number of other approaches attempted: 0 Secured with:silk tape Ease of procedure: easy Dentition: Intact Monica Deleon MD [place] ANESTHESIA documented in this encounter Visit Diagnoses Not on filedocumented in this encounter Administered Medications Inactive Administered Medications - up to 3 most recent administrations Medication Order MAR Action Action Date Dose Rate Site albumin human 5 % injection New Bag 08/09/2020 11:32 AM ASSOCIATE MEDICAL DIRECTOR CONTINUOUS PRN, Starting on Sat08/09/20 at 0845, Anesthesia Intra-op New Bag 08/09/2020 8:45 AM ASSOCIATE MEDICAL DIRECTOR ceFAZolin (ANCEF) 1 g vial to attach to NS 100 Given 0 08/09/2020 10:38 AM ASSOCIATE MEDICAL DIRECTOR 1 g ml bag for ADULT or 50 ml bag for PEDS Routine, 1 g, Intravenous, SEE ADMIN INSTRUCTIONS, Starting on Sat08/09/20 at 0650, Intra-Op Dose.?Give every 4 hours while patient in surgery, starting 4 hours after pre-op dose.?DO NOT GIVE intra-op dose if CrCl less than 10 mL/min (on dialysis).?If CrCl less than 50 mL/min, double the time interval between doses., Indications: Perioperative Pharmacoprophylaxis, Pre-procedure ceFAZolin (ANCEF) intermittent infusion 2 g in Given 021 8:37 AM ASSOCIATE MEDICAL DIRECTOR 2 g 100 mL dextrose PRE-MIX Routine, 2 g, Intravenous, PRE-OP/PRE-PROCEDURE, Starting on Sat08/09/20 at 0650, For 1 dose, Give first dose within 1 hour PRIOR to incision. If patient weight is greater than or equal to 120 kg increase dose to 3 g., Indications: Perioperative Pharmacoprophylaxis, Pre-procedure dexamethasone (DECADRON) injection Given 08/09/2020 8:23 AM ASSOCIATE MEDICAL DIRECTOR 4 mg Intravenous, PRN, Administer over 1 Minutes, Starting on Sat08/09/20 at 0823, Anesthesia Intra-op dexmedetomidine (PRECEDEX) 4 mcg/mL bolu s New Bag 08/09/2020 1:32 PM ASSOCIATE MEDICAL DIRECTOR 12 mcg Intravenous, CONTINUOUS PRN, Starting on Sat08/09/20 at 1332, Anesthesia Intra-op ePHEDrine injection Given 08/09/2020 11:36 AM ASSOCIATE MEDICAL DIRECTOR 5 mg Intravenous, PRN, Starting on Sat08/09/20 at 0914, Anesthesia Intra-op Given 08/09/2020 9:14 AM ASSOCIATE MEDICAL DIRECTOR 5 mg fentaNYL (PF) (SUBLIMAZE) injection Given 08/09/2020 8:22 AM ASSOCIATE MEDICAL DIRECTOR 50 mcg Intravenous, PRN, Administer over 3-5 Minutes, Starting on Sat08/09/20 at 0822, Anesthesia Intra-op HYDROmorphone (DILAUDID) injection Given 08/09/2020 12:35 PM ASSOCIATE MEDICAL DIRECTOR 0.25 mg Intravenous, PRN, Starting on Sat08/09/20 at 1235, Anesthesia Intra-op ketamine (KETALAR) injection Given 08/09/2020 12:05 PM ASSOCIATE MEDICAL DIRECTOR 10 mg PRN, Administer over 2-5 Minutes, Starting on Sat08/09/20 at 0823, Anesthesia Intra-op Given 08/09/2020 11:08 AM ASSOCIATE MEDICAL DIRECTOR 10 mg Given 08/09/2020 9:54 AM ASSOCIATE MEDICAL DIRECTOR 10 mg lactated ringers infusion Restarted 08/09/2020 11:33 AM ASSOCIATE MEDICAL DIRECTOR Intravenous, CONTINUOUS PRN, Anesthesia Intra-op, Starting on Sat08/09/20 at 0818, Until Sat08/09/20 at 1337 Restarted 08/09/2020 9:47 AM ASSOCIATE MEDICAL DIRECTOR New Bag 08/09/2020 8:18 AM ASSOCIATE MEDICAL DIRECTOR lactated ringers infusion New Bag 08/09/2020 8:30 AM ASSOCIATE MEDICAL DIRECTOR 75 mL/hr Intravenous, CONTINUOUS PRN, Anesthesia Intra-op, Starting on Sat08/09/20 at 0830, Until Sat08/09/20 at 1337 lidocaine 2% injection (MDV) Given 08/09/2020 8:22 AM ASSOCIATE MEDICAL DIRECTOR 50 mg Intravenous, PRN, Starting on Sat08/09/20 at 0822, Anesthesia Intra-op lidocaine 400 mg in D5W 50 mL New Bag 08/09/2020 8:45 AM ASSOCIATE MEDICAL DIRECTOR 1 mg/kg/hr 6.8 mL/hr (ADULT STD) - for ANALGESIA 1 mg/kg/hr ? 54.7 kg (6.8375 mL/hr, rounded to 6.8 mL/hr), Intravenous, CONTINUOUS, Starting on Sat08/09/20 at 0830, Provider to titrate. For use in OR ONLY, Intra-procedure midazolam (VERSED) injection Given 08/09/2020 11:58 AM ASSOCIATE MEDICAL DIRECTOR 1 mg Administer over 2 Minutes, PRN, Starting on Sat08/09/20 at 1158, Anesthesia Intra-op ondansetron (ZOFRAN) injection Given 08/09/2020 12:08 PM ASSOCIATE MEDICAL DIRECTOR 4 mg Intravenous, PRN, Administer over 2-5 Minutes, Starting on Sat08/09/20 at 1208, Anesthesia Intra-op phenylephrine (ALYCE-SYNEPHRINE) injection Bolus 08/09/2020 12:25 PM ASSOCIATE MEDICAL DIRECTOR 50 mcg Intravenous, CONTINUOUS PRN, Starting on Sat08/09/20 at 0914, Anesthesia Intra-op Bolus 08/09/2020 12:09 PM ASSOCIATE MEDICAL DIRECTOR 50 mcg Bolus 08/09/2020 11:30 AM ASSOCIATE MEDICAL DIRECTOR 100 mcg phenylephrine 0.1 mg/mL Rate/Dose 08/09/2020 0.5 mcg/kg/min 15.7 mL/ hr infusion (mcg/kg/min) Change 11:28 AM ASSOCIATE MEDICAL DIRECTOR CONTINUOUS PRN, Starting on Sat08/09/20 at 0915, Anesthesia Intra-op Rate/Dose Change 08/09/2020 11:10 AM ASSOCIATE MEDICAL DIRECTOR 0.4 mcg/kg/min 12.6 mL/hr Restarted 08/09/2020 10:30 AM ASSOCIATE MEDICAL DIRECTOR 0.3 mcg/kg/min 9.4 mL/hr propofol (DIPRIVAN) infusion New Bag 08/09/2020 9:15 AM 25 mcg/kg/min 7.9 mL/hr Intravenous, CONTINUOUS PRN, ASSOCIATE MEDICAL DIRECTOR Starting on Sat08/09/20 at 0915, Anesthesia Intra-op propofol (DIPRIVAN) injection 10 mg/mL v ial Given 08/09/2020 11:58 AM ASSOCIATE MEDICAL DIRECTOR 40 mg Intravenous, PRN, Starting on Sat08/09/20 at 0823, Anesthesia Intra-op Given 08/09/2020 8:23 AM ASSOCIATE MEDICAL DIRECTOR 100 mg remifentanil (ULTIVA) 500 Rate/Dose Change 08/09/2020 11:29 0.1 mcg /kg/min 6.6 mL/hr mcg in sodium chloride AM ASSOCIATE MEDICAL DIRECTOR 0.9 % 10 mL infusion 0.05-0.1 mcg/kg/min ? 54.7 kg (3.282-6.564 mL/hr, rounded to 3.3-6.6 mL/hr), Intravenous, CONTINUOUS, Starting on Sat08/09/20 at 1130, Provider to titrate, Intra-procedure New Bag 08/09/2020 11:17 AM ASSOCIATE MEDICAL DIRECTOR 0.05 mcg/kg/min 3.3 mL/hr rocuronium injection Given 08/09/2020 11:58 AM ASSOCIATE MEDICAL DIRECTOR 15 mg Intravenous, PRN, Starting on Sat08/09/20 at 0824, Anesthesia Intra-op Given 08/09/2020 9:10 AM ASSOCIATE MEDICAL DIRECTOR 10 mg Given 08/09/2020 8:24 AM ASSOCIATE MEDICAL DIRECTOR 40 mg sugammadex (BRIDION) injection Given 08/09/2020 12:54 PM ASSOCIATE MEDICAL DIRECTOR 120 mg PRN, Starting on Sat08/09/20 at 1254, Anesthesia Intra-op tranexamic acid (CYKLOKAPRON) 1,630 mg in New Bag 2020 8:31 AM ASSOCIATE MEDICAL DIRECTOR 1,630 mg sodium chloride 0.9 % 50 mL bolus 1,630 mg (rounded from 1,629 mg = 30 mg/kg ? 54.3 kg), Intravenous, ONCE, On Sat08/09/20 at 0700, For 1 dose, Prior to incision. Each 1 gram to be infused over 10 minutes., Pre-procedure tranexamic acid (CYKLOKAPRON) New Bag 08/09/2020 9:01 AM ASSOCIATE MEDICAL DIRECTOR 1 0 mg/kg/hr 27.2 mL/hr 5 g in sodium chloride 0.9 % 250 mL infusion 10 mg/kg/hr ? 54.3 kg (27.15 mL/hr, rounded to 27.2 mL/hr), Intravenous, CONTINUOUS, Starting on Sat08/09/20 at 0700, 10 mg/kg/hr = 27.2 ml/hr Throughout the case., Intra-procedure documented in this encounter Care Teams Driver/Guide Relationship Specialty Start Date End Date Josh Carrero PCP - General Family Medicine 08/09/[address] [address] Julian Spencer MD MD Orthopedics 03/08/[address] [place] [address] Mariposa Atwood Assigned PCP 04/29/20 11/12/20 MD Nettie [facility] [place], [place] [id number] Julian Spencer MD Assigned Musculoskeletal 05/27/[address] [place] [address] Eugenio Finney Assigned Pediatric 06/19/2005/07 MD David Specialist Provider [address] [facility] [address] [place] [address] documented as of this encounter
--- OUTSIDE RECORDS SUMMARY | 2022-06-18 12:00 | XMS_ITS | Encounter Summary ---
:2001 Author Organization [place] Address [address] [place] [address] Care Team Providers Name Role Phone [facility] Primary Care Provide r Julian Spencer MD Unavailable Mariposa Atwood MD Unavailable [phone] Julian Spencer MD Unavailable Eugenio Finney MD Unavailable [phone] Encounter Details Date Type Department Care Team Description 08/07/2020 Travel Social History Tobacco Use Types Packs/Day Years Used Date Smoking Tobacco: Never Smokeless Tobacco: Never Alcohol Use Standard Drinks/Week Comments Not Currently 0 (1 standard drink = 0.6 oz pure alcoho l) Sex Assigned at Date Recorded Female 12/02/2020 1:42 PM CDT COVID-19 Exposure Response Date Recorded In the last month, have you been in contact Unable to assess 08/07/2020 3:11 PM SOFTWARE DESIGNER with someone who was confirmed or suspected to have Coronavirus / COVID-19? documented as of this encounter Plan of Treatment Not on filedocumented as of this encounter Visit Diagnoses Not on filedocumented in this encounter Care Teams Wood Cabinet Finisher Relationship Specialty Start Date End Date [facility] PCP - General 10/15/17 08/08/[address] [address] Julian Spencer MD MD Orthopedics 03/08/[address] [place], [place] [phone] Mariposa Atwood, Assigned PCP 04/29/2005/25 [facility] [place], [place] [phone] Julian Spencer MD Assigned Musculoskeletal 05/27/[address] Provider [place], [place] [phone] Eugenio Finney, Assigned Pediatric 06/19/20 06/03/21 Specialist Provider [address] [facility] [address] [place], [place] [address] documented as of this encounter
--- OUTSIDE RECORDS SUMMARY | 2022-06-18 12:01 | XMS_ITS | Encounter Summary ---
:2001 Author Organization [place] Address [address] [place] [address] Care Team Providers Name Role Phone Clinic, [facility] Primary Care Provide r Julian Spencer MD Unavailable Mariposa Atwood MD Unavailable [phone] Julian Spencer MD Unavailable Eugenio Finney MD Unavailable [phone] Encounter Details Date Type Department Care Team Description 07/14/2020 Documentation Only [facility] Julian Spencer, Orthopedic Clinic [place] [id number] [place], [place] 4th Floor [address] [place], [place] [phone] (Wo rk) [address] [phone] Social History Tobacco Use Types Packs/Day Years Used Date Smoking Tobacco: Never Smokeless Tobacco: Never Sex Assigned at Date Recorded Female 12/02/2020 1:42 PM CDT COVID-19 Exposure Response Date Recorded In the last month, have you been in contact with No / Unsure 07/05/2020 8:01 AM PAYROLL DIRECTOR someone who was confirmed or suspected to have Coronavirus / COVID-19? documented as of this encounter Progress Notes Julian Spencer MD - 07/14/2020 9:40 AM CST Spent 30 min on the phone with Dr Atwood reviewing all of the details. The [facility] platelet disordergenetic testing is pending. Plan is: Hematology (Dr. Cruz) in the OR for the case Will do our usual high dose TXA (30 mg/kg bolus, 10 mg/kg/hr drip). This needs to be continued post op and the patient will go to peds ICU where hematology will direct her bleeding management. Anticipate 7 days post TXA. Anesthesia needs to be prepared for massive transfusion protocol. We will use the Aquamantys bipolar coagulation device intraoperatively. Surgery will take 1-2 hours (after line up complete). Unclear if we will use a drain. Will ask for adjunctive coagulation adjuncts in room (Combat gauze). Cell saver. Will send TEG's intraop although these are typically normal in [facility] platelet disorder. Patient will need T&C for massive transfusion protocol and needs current EOS imaging prior to surgery. OLL DIRECTOR documented in this encounter Plan of Treatment Not on filedocumented as of this encounter Visit Diagnoses Not on filedocumented in this encounter Care Teams Distribution Dispatcher Relationship Specialty Start Date End Date [facility] PCP - General 10/15/17 08/08/[address] [address] Julian Spencer MD MD Orthopedics 03/08/20 [facility] [place] [address] Mariposa Atwood, Assigned PCP 04/29/2005/[address] [place] [address] Julian Spencer MD Assigned Musculoskeletal 05/27/[address] [place], [place] [phone] Provider [place], [place] [phone] Eugenio Finney, Assigned Pediatric 06/19/20 06/03/21 Specialist Provider [address] [place] [address] 96 [place] [address] documented as of this encounter
--- OUTSIDE RECORDS SUMMARY | 2022-06-18 12:01 | XMS_ITS | Encounter Summary ---
:2001 Author Organization [place] Address [address] [place] [address]. [place] [address] Care Team Providers Name Role Phone Clinic, [facility] Primary Care Provide r Julian Spencer MD Unavailable Mariposa Atwood MD Unavailable [phone] Julian Spencer MD Unavailable Eugenio Finney MD Unavailable [phone] Encounter Details Date Type Department Care Team Description 06/21/2020 Documentation Only [facility] Mariposa Atwood Pediatric MD [facility] [address] [place] [address] [facility] [phone] (Wo rk) [facility] [address] [address] Social History Tobacco Use Types Packs/Day Years Used Date Smoking Tobacco: Never Smokeless Tobacco: Never Sex Assigned at Date Recorded Female 12/02/2020 1:42 PM CDT COVID-19 Exposure Response Date Recorded In the last month, have you been in contact with No / Unsure 06/20/2020 8:16 AM PACK MASTER someone who was confirmed or suspected to have Coronavirus / COVID-19? documented as of this encounter Progress Notes Mariposa Atwood MD - 06/21/2020 8:58 AM CST Images from the original note were not included. Email with Mrs. Vasquez: Mariposa Atwood MD [email or web address]> 8:55 AM (3 minutes ago) to TIFFANY Thank you for the ping. I do see her labs partially resulted, partially pending. The von Willebrand workup that is being done both here and at [facility] usually takes 2-3 weeks, and we also have the potential for gene testing to be triggered at [facility] depending on the results profile. She does have an abnormality on her platelet aggregation testing that I want to discuss with the pathologist who interpreted the results because they can be due to a lab glitch, a benign variant or canbe an actual platelet issue that can contribute to bleeding. Her note mentions some potential gene testing as well. At a minimum, we will want to repeat that panel and schedule it with [facility] again. I have been through well over 200 pages of her medical records. I am not finding a true vWD diagnosis and her management described in the records I have seems variable. I need to please pick your brainagain for what you recall hearing/giving. I do have many different documents, but some have not been provided, and I may need to go back to [facility] for inpatient records from the wards since I have anesthesia and OR records but not those. I have open time from 04-15 and 08-06 today or 04-15 tomorrow to call you if you are free. Dr. Monge On Jun 20, 2020 at 9:33 AM TIFFANY VASQUEZ <[email or web address] wrote: Good morning Just letting you know she had her labs drawn this morning. About how long does it take? With her being miserable we were hoping to get the metal out sooner than later. Is there something you want me to do as far as [facility]'s? It???s so frustrating to us that so much wasn???t documented yet has been told this for almost 5 years. We are extremely thankful for the precautions both hospitals have taken since she excessively bleeds but it???s still frustrating as a parent. Thank you Tiffany Vasquez MASTER documented in this encounter Plan of Treatment Not on filedocumented as of this encounter Visit Diagnoses Not on filedocumented in this encounter Care Teams Communications Intern Relationship Specialty Start Date End Date Clinic, [facility] PCP - General 10/15/17 08/08/[address] [address] Julian Spencer MD MD Orthopedics 03/08/[address] [facility] [address] [address] [place] [address] Mariposa Atwood, Assigned PCP 04/29/2005/25 [facility] [place] [address] Julian Spencer MD Assigned Musculoskeletal 05/27/20 [address] [facility] [address] [place] [address] Eugenio Finney, Assigned Pediatric 06/19/20 06/03/21 Specialist Provider [address] [facility] 96 [place] [address] documented as of this encounter
--- OUTSIDE RECORDS SUMMARY | 2022-06-18 12:01 | XMS_ITS | Encounter Summary ---
:2001 Author Organization [place] Address [address] [place] [address] Care Team Providers Name Role Phone Clinic, [facility] Primary Care Provide r Julian Spencer MD Unavailable Mariposa Atwood MD Unavailable [phone] Julian Spencer MD Unavailable Eugenio Finney MD Unavailable [phone] Reason for Referral Diagnostic Imaging XR (Routine) - Closed Specialty Diagnoses / Procedures Referred By Contact Refer red To Contact Diagnoses Other secondary scoliosis, thoracolumbar region Julian Spencer MD Procedures XR Spine Complete Scoliosis [address] [place], [place] [address] Referral ID Status Reason Start Date Expiration Date Visits Requ ested Visits Authorized [id number] Closed 07/19/2020 07/19/2021 1 1 TIONAL PLACEMENT SPECIALIST Diagnostic Imaging XR (Routine) - Closed Specialty Diagnoses / Procedures Referred By Contact Refer red To Contact Diagnoses Other secondary scoliosis, thoracolumbar region Julian Spencer MD Procedures XR Six Foot Standing Extremities [address] [place], [place] [address] Referral ID Status Reason Start Date Expiration Date Visits Requ ested Visits Authorized [id number] Closed 07/19/2020 07/19/2021 1 1 TIONAL PLACEMENT SPECIALIST Encounter Details Date Type Department Care Team Description 07/19/2020 [facility] MD Darell scoliosis, thoracolumbar [place] [id number] [facility] region (Primary Dx) [address] [facility] [address] 4th [place] [address] Social History Tobacco Use Types Packs/Day Years Used Date Smoking Tobacco: Never Smokeless Tobacco: Never Sex Assigned at Date Recorded Female 12/02/2020 1:42 PM CDT COVID-19 Exposure Response Date Recorded In the last month, have you been in contact with No / Unsure 07/05/2020 8:01 AM VOCATIONAL PLACEMENT SPECIALIST someone who was confirmed or suspected to have Coronavirus / COVID-19? documented as of this encounter Plan of Treatment Not on filedocumented as of this encounter Procedures Procedure Name Priority Date/Time Associated Diagnosis Comme nts XR SPINE COMPLETE Routine 07/21/2020 2:31 PM Other secondary R esults for this SCOLIOSIS 2 VIEWS VOCATIONAL PLACEMENT SPECIALIST scoliosis, procedure are in thoracolumbar region the res ults section. XR SIX FOOT STANDING Routine 07/21/2020 2:31 PM Other secondar y Results for this EXTREMITIES VOCATIONAL PLACEMENT SPECIALIST scoliosis, procedure are i n thoracolumbar region the res ults section. 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 1. Postsurgical changes of segmental spi nal fusion instrumentation T3-L4. Hardware appears intact without e vidence of complications. 2. Moderate right convexed curvature of the thoracolumbar/lumbar spine. 3. Positive global coronal imbalance. No global sagittal imbalance. 4. Weight bearing axis as detailed above . STEFANIE ABREU, Narrative 07/21/2020 5:48 PM VOCATIONAL PLACEMENT SPECIALIST Exam: Full body radiographs using EOS History: Other secondary scoliosis, thor acolumbar region Techniques: AP and lateral images of ful l body and secondary images of AP and lateral views of spine were submi tted for interpretation. Comparison: MR from 05/09/2020. CT 020 and 09/03/2018.. Findings: 12 rib bearing vertebral bodies. Transit ional lumbosacral anatomy with 6 lumbar type vertebral bodies identifie d with lumbarization of the S1 body. Stable postsurgical changes of segment s cielo fusion instrumentation. Bilateral posterior rods extend from T3 to T4 and transpedicular screws on left from L1-L4 and on the rig ht from L3-L4. Reversal of the normal cervical lordosis. Low dose EOS t echnique limits assessment of spinal osseous detail. Coronal Deformity: There is a moderate ??convexed right cur vature of thoracolumbar/lumbar spine with apex at L1/L2. Positive global coronal imbalance. Sagittal Vertical Hanover (A vertical line drawn from the center [...] significant ??leg length dis crepancy. Additional Findings: The lungs are clear. Cardiac silhouette is normal. Bowel gas pattern is nonobstructive. No acute osseous abno rmality. Procedure Note Stefanie Abreu, - 07/21/2020Forma tting of this note might be different from the original. Exam: Full body radiographs using EOS History: Other secondary scoliosis, thor acolumbar region Techniques: AP and lateral images of ful l body and secondary images of AP and lateral views of spine were submi tted for interpretation. Comparison: MR from 05/09/2020. CT 020 and 09/03/2018.. Findings: 12 rib bearing vertebral bodies. Transit ional lumbosacral anatomy with 6 lumbar type vertebral bodies identifie d with lumbarization of the S1 body. Stable postsurgical changes of segment s cielo fusion instrumentation. Bilateral posterior rods extend from T3 to T4 and transpedicular screws on left from L1-L4 and on the rig ht from L3-L4. Reversal of the normal cervical lordosis. Low dose EOS t echnique limits assessment of spinal osseous detail. Coronal Deformity: There is a moderate convexed right curva ture of thoracolumbar/lumbar spine with apex at L1/L2. Positive global coronal imbalance. Sagittal Vertical Hanover (A vertical line drawn from the center [...] No significant leg length discrepancy. Additional Findings: The lungs are clear. Cardiac silhouette is normal. Bowel gas pattern is nonobstructive. No acute osseous abno rmality. Impression: Transitional lumbosacral vijaya carlyle with lumbarization of the S1 body. 1. Postsurgical changes of segmental spi nal fusion instrumentation T3-L4. Hardware appears intact without e vidence of complications. 2. Moderate right convexed curvature of the thoracolumbar/lumbar spine. 3. Positive global coronal imbalance. No global sagittal imbalance. 4. Weight bearing axis as detailed above . 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 1. Postsurgical changes of segmental spi nal fusion instrumentation T3-L4. Hardware appears intact without e vidence of complications. 2. Moderate right convexed curvature of the thoracolumbar/lumbar spine. 3. Positive global coronal imbalance. No global sagittal imbalance. 4. Weight bearing axis as detailed above . STEFANIE ABREU, Narrative 07/21/2020 5:48 PM VOCATIONAL PLACEMENT SPECIALIST Exam: Full body radiographs using EOS History: Other secondary scoliosis, thor acolumbar region Techniques: AP and lateral images of ful l body and secondary images of AP and lateral views of spine were submi tted for interpretation. Comparison: MR from 05/09/2020. CT and 09/03/2018.. Findings: 12 rib bearing vertebral bodies. Transit ional lumbosacral anatomy with 6 lumbar type vertebral bodies identifie d with lumbarization of the S1 body. Stable postsurgical changes of segment s cielo fusion instrumentation. Bilateral posterior rods extend from T3 to T4 and transpedicular screws on left from L1-L4 and on the rig ht from L3-L4. Reversal of the normal cervical lordosis. Low dose EOS t echnique limits assessment of spinal osseous detail. Coronal Deformity: There is a moderate ??convexed right cur vature of thoracolumbar/lumbar spine with apex at L1/L2. Positive global coronal imbalance. Sagittal Vertical Han[place] (A vertical line drawn from the center [...] significant ??leg length dis crepancy. Additional Findings: The lungs are clear. Cardiac silhouette is normal. Bowel gas pattern is nonobstructive. No acute osseous abno rmality. Procedure Note Stefanie Abreu, DO - 07/21/2020Forma tting of this note might be different from the original. Exam: Full body radiographs using EOS History: Other secondary scoliosis, thor acolumbar region Techniques: AP and lateral images of ful l body and secondary images of AP and lateral views of spine were submi tted for interpretation. Comparison: MR from 05/09/2020. CT 020 and 09/03/2018.. Findings: 12 rib bearing vertebral bodies. Transit ional lumbosacral anatomy with 6 lumbar type vertebral bodies identifie d with lumbarization of the S1 body. Stable postsurgical changes of segment s cielo fusion instrumentation. Bilateral posterior rods extend from T3 to T4 and transpedicular screws on left from L1-L4 and on the rig ht from L3-L4. Reversal of the normal cervical lordosis. Low dose EOS t echnique limits assessment of spinal osseous detail. Coronal Deformity: There is a moderate convexed right curva ture of thoracolumbar/lumbar spine with apex at L1/L2. Positive global coronal imbalance. Sagittal Vertical [place] (A vertical line drawn from the center [...] No significant leg length discrepancy. Additional Findings: The lungs are clear. Cardiac silhouette is normal. Bowel gas pattern is nonobstructive. No acute osseous abno rmality. Impression: Transitional lumbosacral vijaya carlyle with lumbarization of the S1 body. 1. Postsurgical changes of segmental spi nal fusion instrumentation T3-L4. Hardware appears intact without e vidence of complications. 2. Moderate right convexed curvature of the thoracolumbar/lumbar spine. 3. Positive global coronal imbalance. No global sagittal imbalance. 4. Weight bearing axis as detailed above . STEFANIE ABREU, DO Julian Spencer MD IMG DIAGNOSTIC IMAGING ORDER DANO documented in this encounter Visit Diagnoses Diagnosis Other secondary scoliosis, thoracolumbar region - Primary documented in this encounter Care Teams Valet Manager Relationship Specialty Start Date End Date [facility] PCP - General 10/15/17 08/08/[address] [address] Julian Spencer MD MD Orthopedics 03/08/[address] [place], [place] [id number] [place] [address] Mariposa Atwood, Assigned PCP 04/29/2005/25 [facility] [place], [place] [phone] Julian Spencer MD Assigned Musculoskeletal 05/27/[address] Provider [place], [place] [phone] Eugenio Finney, Assigned Pediatric 06/19/20 06/03/21 Specialist Provider [address] [facility] [address] [place], [place] [address] documented as of this encounter
--- OUTSIDE RECORDS SUMMARY | 2022-06-18 12:01 | XMS_ITS | Encounter Summary ---
:2001 Author Organization [place] Address [address] [place] [address] Care Team Providers Name Role Phone Clinic, [facility] Primary Care Provide r Julian Spencer MD Unavailable Mariposa Atwood MD Unavailable [phone] Julian Spencer MD Unavailable Eugenio Finney MD Unavailable [phone] Encounter Details Date Type Department Care Team Description 08/07/2020 Orders Only [facility] Julian Spencer for screening [facility] Laborato MD Darell for other viral [facility] [address] [place], [place] [address] [place], [place] [phone] [facility] Social History Tobacco Use Types Packs/Day Years Used Date Smoking Tobacco: Never Smokeless Tobacco: Never Alcohol Use Standard Drinks/Week Comments Not Currently 0 (1 standard drink = 0.6 oz pure alcoho l) Sex Assigned at Date Recorded Female 12/02/2020 1:42 PM CDT COVID-19 Exposure Response Date Recorded In the last month, have you been in contact with No / Unsure 08/09/2020 6:36 AM ASSET MANAGEMENT LEAD someone who was confirmed or suspected to have Coronavirus / COVID-19? documented as of this encounter Plan of Treatment Not on filedocumented as of this encounter Procedures Procedure Name Priority Date/Time Associated Diagnosis Comme nts SARS-COV-2 Routine 08/07/2020 3:30 PM Encounter for Results for this (COVID-19) VIRUS ASSET MANAGEMENT LEAD screening for other proc edure are in RT-PCR viral diseases the results section. COVID-19 VIRUS Routine 08/07/2020 3:30 PM Encounter for Result s for this (CORONAVIRUS) BY ASSET MANAGEMENT LEAD screening for other proc edure are in PCR viral diseases the results section. documented in this encounter Results SARS-CoV-2 COVID-19 Virus (Coronavirus) by PCR (08/07/2020 3:30 PM ASSET MANAGEMENT LEAD) [facility] Method Time Signature SARS-CoV-2 Nasopharyngeal 08/08/2020 INFECTIOUS Virus 12:52 PM DISEASES Specimen ASSET MANAGEMENT LEAD DIAGNOSTIC Source LABORATORY, [facility] SARS-CoV-2 NEGATIVE 08/08/2020 INFECTIOUS PCR Result 12:52 PM DISEASES ASSET MANAGEMENT LEAD DIAGNOSTIC LABORATORY, [facility] Comment: SARS-CoV2 (COVID-19) RNA not de tected, presumed negative. SARS-CoV-2 PCR Testing was performed using the Aptima SARS-CoV-[address] Hero Instrument System. 08/08/2020 12:52 PM INFECTI OUS DISEASES Comment Additional information about this Emergency Use Authorization (EUA) assay can be found via ASSET MANAGEMENT LEAD DIAGNOSTIC the Lab Guide. LABORATORY, [facility] Comment: This test should be ordered for the dete ction of SARS-CoV-2 in individuals who meet SARS-CoV-2 clinical and/or epidemi ological criteria. Test performance is unknown in asymptomatic patients. This test is for in vitro diagnostic use under the FDA EUA for laboratories certified under CLIA to perform high com plexity testing. This test has not been FDA cleared or approved. A negative result does not rule out the presence of PCR inhibitors in the specimen or target RNA in concentration below the limit of detection for the assay. The possibility of a false negati ve should be considered if the patient's recent exposure or clinical pr esentation suggests COVID-19. This test was validated by the [facility]ious [facility] Diagnostic [facility]. This laboratory i s certified under the Clinical Laboratory Improvement Amendments of 198 8 (CLIA-88) as qualified to perform high complexity laboratory testing. Specimen (Source) Anatomical Collection Method Collection Time Re ceived Time Location / / Volume Laterality Specimen from 08/07/2020 3:30 08/07/2020 nasopharyngeal PM ASSET MANAGEMENT LEAD 3:32 PM ASSET MANAGEMENT LEAD structure (specimen) Julian Spencer MD LAB - MICRO GENERAL ORDERABL ES Performing Organization Address City/[facility]/ZIP Code Phon e Number INFECTIOUS DISEASES DIAGNOSTIC [address] [facility] [address] LABORATORY, [facility] Asymptomatic COVID-19 Virus (Coronavirus) by PCR (08/07/2020 3:30 PM ASSET MANAGEMENT LEAD) Component Value Ref Test Analysis Performed At [facility] Range Method Time Signature COVID-19 Nasopharyngeal 08/07/2020 [facility] Virus PCR to 3:[address] MEDICAL U [facility] COVID-19 Test received-See 08/07/2020 INFECTIOUS Virus PCR to reflex to IDDL 7:27 PM ASSET MANAGEMENT LEAD DISEASES U of CT - test SARS CoV2 DIAGNOSTIC Result (COVID-19) Virus LABORATORY, RT-PCR [facility] Specimen (Source) Anatomical Collection Method Collection Time Re ceived Time Location / / Volume Laterality Specimen from 08/07/2020 3:30 08/07/2020 nasopharyngeal PM ASSET MANAGEMENT LEAD 3:32 PM ASSET MANAGEMENT LEAD structure (specimen) Julian Spencer MD LAB - MICRO GENERAL ORDERABL ES Performing Organization Address City/State/ZIP Code Phon e Number INFECTIOUS DISEASES DIAGNOSTIC [address] [facility] [address] LABORATORY, [address] [address] [facility] documented in this encounter Visit Diagnoses Diagnosis Encounter for screening for other viral diseases documented in this encounter Care Teams Test Developer Relationship Specialty Start Date End Date Clinic, [facility] PCP - General 10/15/17 08/08/20 [facility] [address] [place] [address] Julian Spencer MD MD Orthopedics 03/08/[address] [facility] [address] [place] [address] Mariposa Atwood, Assigned PCP 04/29/2005/25 [facility] [place] [address] Julian Spencer MD Assigned Musculoskeletal 05/27/[address] [place] [address] Eugenio Finney, Assigned Pediatric 06/19/20 06/03/21 Specialist Provider [address] [place] [address] 96 [place] [address] documented as of this encounter
--- OUTSIDE RECORDS SUMMARY | 2022-06-18 12:01 | XMS_ITS | Encounter Summary ---
:2001 Author Organization [place] Address [address] [facility] [place] [address] Care Team Providers Name Role Phone [facility], [facility] Primary Care Provide r Julian Spencer MD Unavailable Mariposa Atwood MD Unavailable [phone] Julian Spencer MD Unavailable Reason for Visit Reason Comments Consult tethered cord Consultation (Routine) - Closed Specialty Diagnoses / Procedures Referred By Contact Refer red To Contact Neurological Surgery Diagnoses Other secondary scoliosis, thoracolumbar region Tethered cord (H) History of fusion of spine for scoliosis Acquired von Willebrand disease Julian Spencer, kate Hinton MD Neurosurgery [address] [place], [place] [facility], [address] [place] [address] [place] [address] Phone: Referral ID Status Reason Start Date Expiration Date Visits Requ ested Visits Authorized [id number] Closed 05/05/2020 05/05/2021 1 1 Encounter Details Date Type Department Care Team Description 06/14/2020 Virtual Visit [facility] Eugenio Finney r secondary scoliosis, thoracolumbar region; [facility] MD David Tethered cord (H); [facility] [address] [place] [address] History of fusion of spine f or scoliosis; [address] [facility] Acquired von Willebrand disease (H) [facility], [place], [place] [address], [address] [address] [place], [place] [phone] [address] (Work) [phone] Social History Tobacco Use Types Packs/Day Years Used Date Smoking Tobacco: Never Smokeless Tobacco: Never Sex Assigned at Date Recorded Female 12/02/2020 1:42 PM CDT COVID-19 Exposure Response Date Recorded In the last month, have you been in contact with No / Unsure 05/19/2020 8:40 AM CDT someone who was confirmed or suspected to have Coronavirus / COVID-19? documented as of this encounter Progress Notes Nettie Cox EMT - 06/14/2020 4:00 PM CST Dakota Casiano is a 19 year old female who is being evaluated via a billable video visit. The patient has been notified of following: This video visit will be conducted via a call between you and your physician/provider. We have found that certain health care needs can be provided without the need for an in-person physical exam. This service lets us provide the care you need with a video conversation. If a prescription is necessarywe can send it directly to your pharmacy. If lab work is needed we can place an order for that and you can then stop by our lab to have the test done at a later time. Video visits are billed at different rates depending on your insurance coverage. Please reach out toyour insurance provider with any questions. If during the course of the call the physician/provider feels a video visit is not appropriate, you will not be charged for this service. Patient has given verbal consent for Video visit? Yes How would you like to obtain your AVS? MyChart If you are dropped from the video visit, the video invite should be resent to: Text to cell phone: [phone] Will anyone else be joining your video visit? No JAQUELINE Hoang Eugenio Strauss MD - 06/14/2020 4:00 PM CST It was a pleasure virtually seeing Dakota Casiano in clinic today. She was referred by Dr. Julian Spencer. This patient is an 19-year-old female who has had an unfortunate and complicated past medical historyregarding her scoliosis and tethered spinal cord. She was initially evaluated about [address] Cobos at [facility]. A preoperative MRI scan revealed evidence of a tethered spinal cord and she underwent spinal cord untethering by Dr. Girish Hammond. She remained in the hospital 3 days following the procedure and was kept flat bedrest for an extended period due to positional headaches for a few days. She does not report prior symptoms of tethered cord - no bowel or bladder problems, no constipation, no LE symptoms. She subsequently underwent posterior spinal fusion by Dr. Cobos on January 24, 2016 and reported back pain following that surgery. She reports that her pain actually worsened after the surgery. The cross-link was removed in July 2016. A right T8 hook was removed in 2017. She followed up with Dr. Perez who felt that she had a pseudoarthrosis and vitamin D deficiency. She underwent revision of her spinal fusion from T3-L4 in February [address] Cobos. [facility] a new cross-link which was removed. This temporarily relieved her pain. She continues to complain of pain, numbness and tingling and numbness and tinglinginvolving the left lower extremity. She also has upper back numbness and tingling as well as pain. She occasionally has headaches that involve her whole head that did not appear to be positional in nature. She is not having constipation, urinary problems, gait problems or other symptoms of re-tethering. Her past medical history is significant also for von Willebrand's. No exam was done today as this was a virtual visit. I reviewed her most recent magnetic resonance imaging study. This was done in May 2020. There isminimal artifact from the spinal hardware. Intradurally, conus appears to be around the L1 level although it is difficult to see due to some artifact at that level. There is no evidence of syringomyelia. There does not appear to be any evidence of nerve root clumping within the cauda equina equina. I did not see evidence of a filum lipoma or thickened filum terminale. There is no evidence of a pseudomeningocele. Impression: status post filum lysis for tethered spinal cord, pain and other symptoms following several spinal surgeries. Plan: Dr. Spencer is planning on proceeding with hardware removal. I am happy to be available or to assist with as much of the surgery is Dr. Spencer wishes. There may be some scarring near her prior durotomy. I do not feel any of her symptoms are related to retethering of her spinal cord and I do not think there is a reason to proceed with prophylactic untethering prior to her scheduled surgery. Given this will be a hardware removal without any deformity correction, I do not see a reason for neuro monitoring but would leave that up to Dr. Spencer. 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, [facility] PCP - General 10/15/17 08/08/[address] [address] Julian Spencer MD MD Orthopedics 03/08/20 [facility] [place] [address] Mariposa Atwood, Assigned PCP 04/29/2005/[address] [place] [address] [place] [address] Julian Spencer MD Assigned Musculoskeletal 05/27/20 [facility] [place] [address] [place] [address] documented as of this encounter
--- OUTSIDE RECORDS SUMMARY | 2022-06-18 12:01 | XMS_ITS | Encounter Summary ---
:2001 Author Organization [place] Address [address] [place] [address] Care Team Providers Name Role Phone Clinic, [facility] Primary Care Provide r Julian Spencer MD Unavailable Mariposa Atwood MD Unavailable [phone] Julian Spencer MD Unavailable Eugenio Finney MD Unavailable [phone] Reason for Visit Diagnostic Imaging XR (Routine) - Closed Specialty Diagnoses / Procedures Referred By Contact Refer red To Contact Diagnoses Other secondary scoliosis, thoracolumbar region Julian Spencer MD Procedures XR Six Foot Standing Extremities [address] [place], [place] [address] Referral ID Status Reason Start Date Expiration Date Visits Requ ested Visits Authorized [id number] Closed 07/19/2020 07/19/2021 1 1 Encounter Details Date Type Department Care Team Description 07/21/2020 Ancillary Procedure [facility] [place] [facility] Juveay MD Darell Cayuta [address] [place], [place] [address] [place], [place] [phone] [address] (Work) [phone] Social History Tobacco Use Types Packs/Day Years Used Date Smoking Tobacco: Never Smokeless Tobacco: Never Sex Assigned at Date Recorded Female 12/02/2020 1:42 PM CDT COVID-19 Exposure Response Date Recorded In the last month, have you been in contact with No / Unsure 07/21/2020 2:20 PM LOCKSTITCH SLEEVE SETTER someone who was confirmed or suspected to have Coronavirus / COVID-19? documented as of this encounter Plan of Treatment Not on filedocumented as of this encounter Procedures Procedure Name Priority Date/Time Associated Diagnosis Comme nts XR SIX FOOT STANDING Routine 07/21/2020 2:31 PM Other secondar y Results for this EXTREMITIES LOCKSTITCH SLEEVE SETTER scoliosis, procedure are i n thoracolumbar region the res ults section. 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 1. Postsurgical changes of segmental spi nal fusion instrumentation T3-L4. Hardware appears intact without e vidence of complications. 2. Moderate right convexed curvature of the thoracolumbar/lumbar spine. 3. Positive global coronal imbalance. No global sagittal imbalance. 4. Weight bearing axis as detailed above . STEFANIE ABREU, Narrative 07/21/2020 5:48 PM LOCKSTITCH SLEEVE SETTER Exam: Full body radiographs using EOS History: [...] L1/L2. Positive global coronal imbalance. Sagittal Vertical Blaine (A vertical line drawn from the center [...] L1/L2. Positive global coronal imbalance. Sagittal Vertical Blaine (A vertical line drawn from the center [...] on filedocumented in this encounter Care Teams Marketing Production Coordinator Relationship Specialty Start Date End Date [facility], [facility] PCP - General 10/15/17 08/08/[address] [address] Julian Spencer MD MD Orthopedics 03/08/20 [address] [place] [address] Mariposa Atwood, Assigned PCP 04/29/2005/25 [facility] [place], [place] [address] Julian Spencer MD Assigned Musculoskeletal 05/27/[address] Provider [place], [place] [address] Eugenio Finney, Assigned Pediatric 06/19/20 06/03/21 Specialist Provider [address] [address] documented as of this encounter
--- OUTSIDE RECORDS SUMMARY | 2022-06-18 12:01 | XMS_ITS | Encounter Summary ---
:2001 Author Organization [place] Address [facility] [place] [address] Care Team Providers Name Role Phone Clinic, [facility] Primary Care Provide r Julian Spencer MD Unavailable Mariposa Atwood MD Unavailable [phone] Julian Spencer MD Unavailable Eugenio Finney MD Unavailable [phone] Encounter Details Date Type Department Care Team Description 06/21/2020 Orders Only [facility] Mariposa Atwood At risk fo r Services - Christian Sheffield MD hemorrhage associated Specialties Service [address] [place] [address] surgery (Primary Line S Dx) [address] [place] [phone] Social History Tobacco Use Types Packs/Day Years Used Date Smoking Tobacco: Never Smokeless Tobacco: Never Sex Assigned at Date Recorded Female 12/02/2020 1:42 PM CDT COVID-19 Exposure Response Date Recorded In the last month, have you been in contact with No / Unsure 07/05/2020 8:01 AM CYBER SYSTEMS ENGINEER someone who was confirmed or suspected to have Coronavirus / COVID-19? documented as of this encounter Plan of Treatment Not on filedocumented as of this encounter Results Platelet Aggregation w/ ADP, TBN, COL, ARACH A, RIST(3conc) (07/05/2020 8:30 AM CYBER SYSTEMS ENGINEER) [facility] Method Time Signature ADP See table 07/07/2020 [facility] below 7:12 AM [facility] Thrombin See table 07/07/2020 [facility] below 7:12 AM [facility] Epinephrine See table 07/07/2020 [facility] below 7:12 AM [facility] Collagen See table 07/07/2020 [facility] below 7:12 AM [facility] Arachadonic Acid See table 07/07/2020 [facility] below 7:12 AM [facility] Comment: (Note) Abnormal platelet aggregation study. Max imal platelet aggregation is markedly decreased with Arachidonic Acid , decreased with Epinephrine, and borderline decreased wi th 5 micromolar ADP. Maximal platelet aggregation is within n ormal limits with Collagen, and low and high concentrations of Risto cetin. Deaggregation is present with 5 micromolar and 10 micromo lar ADP and Arachidonic Acid. ??ATP release is decreased with 5 micromolar and 10 micromolar ADP and within normal limits with Thromb in. 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 Recommend correlation with personal and family ble eding history and medications. ??Consider repeat testing t o confirm these findings and electron microscopy. ? Sunni Whitley M.D. [phone] ? 07/05/2020 ? ATP RELEASE: ? ATP Release with 5 micromolar ADP: Absen t, <0.1 nm, <0.1 nm, <0.1 nm ATP Release with 10 micromolar ADP: Decr eased, 0.13 nm,0.13 nm ATP Release with Thrombin: ? Normal, 0.88 nm ? AGGREGATION: Reagent ??Concentration ?Primary Agg ? Maximal Agg ADP ?5 micromolar ? Single la rge wave ?? Borderline decreased ?61%, 64%, 62% ?deggregation present ADP ?10 micromolar ?Single la rge wave ?? Normal, 69%, 70% ?deggregation present EPI ?10 micromolar ?Present ? Decreased, 12%, 11% COL ?2.0 mcg/mL ? ------- ? Normal, 98% Ar. A. ?? 0.50 mg/mL ? ------- ? Markedly decreased, ?3%, 3% ?deaggregation present REFERENCE RANGES: ATP release with TBN ??Greater than or e qual to 0.50 nm ATP release with ADP ??Greater than or e qual to 0.40 nm ADP % Agg ? Greater than or equal to 64% EPI % Agg ? Greater than or equal to 63% COL % Agg ? Greater than or equal to 66% AA ??% Agg ? Greater alessia n or equal to 63% Ristocetin-4 Conc (Note) 07/07/2020 7:12 AM CYBER SYSTEMS ENGINEER [facility] Comment: See full platelet aggregation comments. ? Sunni Whitley M.D. [phone] ? 07/05/2020 ? RISTOCETIN: Concentration ?Primary Agg ?Maximal Agg 0.50 mg/mL ? Absent ? Normal, 5% ?? 1.00 mg/mL ? Present ?Normal, 96% 1.25 mg/mL ? Single large wave ?? Normal, >100% REFERENCE RANGES: Ristocetin Conc. ??% Aggregation Risto 0.5 mg/mL ?? Less than or equal to 6% Risto 1.0 mg/mL ?? Greater than or equal to 11% Risto 1.25 mg/mL ??Greater than or equal to 76% Specimen Anatomical Collection Method Collection Time Receive d Time (Source) Location / / Volume Laterality Blood specimen 07/05/2020 8:30 AM 020 8:52 (specimen) CYBER SYSTEMS ENGINEER AM CYBER SYSTEMS ENGINEER Mariposa Atwood MD LAB - BLOOD ORDERABLES Performing Organization Address City/State/ZIP Code Phon e Number [facility] [address] [place], [place] [id number] [place] [address] [facility] Fibrinolytic Disorder Panel (lab order 7636): Laboratory Miscellaneous Order (06/20/2020 8:40 AM CYBER SYSTEMS ENGINEER) Component Value Ref Test Analysis Performed At [facility] gist Range Method Time Signature Miscellaneous Specimen Received, Reordered and sent to Performing laboratory - Report to follow upon 07/05/2020 [facility] Test completion. 11:25 AM [facility] Specimen Anatomical Collection Method Collection Time Receive d Time (Source) Location / / Volume Laterality Blood specimen VENOUS BLOOD / 06/20/2020 8:40 AM 07/05 8:52 (specimen) Unknown CYBER SYSTEMS ENGINEER AM CYBER SYSTEMS ENGINEER Mariposa Atwood MD LAB - BLOOD ORDERABLES Performing Organization Address City/State/ZIP Code Phon e Number [address] [address] [facility] documented in this encounter Visit Diagnoses Diagnosis At risk for hemorrhage associated with s urgery - Primary documented in this encounter Care Teams Box Feeder Relationship Specialty Start Date End Date [facility], [facility] PCP - General 10/15/17 08/08/[address] [address] Julian Spencer MD MD Orthopedics 03/08/20 [address] [facility] [address] [place], [place] [id number] Mariposa Atwood, Assigned PCP 04/29/2005/[address] [place] [address] [place], [place] [phone] Julian Spencer MD Assigned Musculoskeletal 05/27/[address] Provider [place], [place] [address] Eugenio Finney, Assigned Pediatric 06/19/20 06/03/21 Specialist Provider [address] [facility] [address] [place], [place] [address] documented as of this encounter
--- OUTSIDE RECORDS SUMMARY | 2022-06-18 12:01 | XMS_ITS | Encounter Summary ---
:2001 Author Organization [place] Address [address] [place] [address] Care Team Providers Name Role Phone [facility], [facility] Primary Care Provide r Julian Spencer MD Unavailable Mariposa Atwood MD Unavailable [phone] Julian Spencer MD Unavailable Encounter Details Date Type Department Care Team Description 06/15/2020 Travel Social History Tobacco Use Types Packs/Day Years Used Date Smoking Tobacco: Never Smokeless Tobacco: Never Sex Assigned at Date Recorded Female 12/02/2020 1:42 PM CDT COVID-19 Exposure Response Date Recorded In the last month, have you been in contact with No / Unsure 06/15/2020 10:51 AM GUIDE CRUISE someone who was confirmed or suspected to have Coronavirus / COVID-19? documented as of this encounter Plan of Treatment Not on filedocumented as of this encounter Visit Diagnoses Not on filedocumented in this encounter Care Teams Household Refrigerator Mechanic Relationship Specialty Start Date End Date [facility], [facility] PCP - General 10/15/17 08/08/20 [facility] [address] [place] [address] Julian Spencer MD MD Orthopedics 03/08/[address] [place], [place] [phone] Mariposa Atwood, Assigned PCP 04/29/2005/25 [address] [place] [address] Julian Spencer MD Assigned Musculoskeletal 05/27/[address] [place] [address] documented as of this encounter
--- OUTSIDE RECORDS SUMMARY | 2022-06-18 12:01 | XMS_ITS | Encounter Summary ---
:2001 Author Organization [place] Address [address] [place] [address] Care Team Providers Name Role Phone Clinic, [facility] Primary Care Provide r Julian Spencer MD Unavailable Mariposa Atwood MD Unavailable [phone] Julian Spencer MD Unavailable Eugenio Finney MD Unavailable [phone] Reason for Visit Diagnostic Imaging XR (Routine) - Closed Specialty Diagnoses / Procedures Referred By Contact Refer red To Contact Diagnoses Other secondary scoliosis, thoracolumbar region Julian Spencer MD Procedures XR Spine Complete Scoliosis 2 Views [address] [place], [place] [address] Referral ID Status Reason Start Date Expiration Date Visits Requ ested Visits Authorized [id number] Closed 07/19/2020 07/19/2021 1 1 Encounter Details Date Type Department Care Team Description 07/21/2020 Ancillary Procedure [facility] [place] [facility] Juveay MD Darell [place] [address] [place], [place] 1st Floor [address] [place], [place] [phone] (Work) [phone] Social History Tobacco Use Types Packs/Day Years Used Date Smoking Tobacco: Never Smokeless Tobacco: Never Sex Assigned at Date Recorded Female 12/02/2020 1:42 PM CDT COVID-19 Exposure Response Date Recorded In the last month, have you been in contact with No / Unsure 07/21/2020 2:20 PM NURSERY SCHOOL TEACHER someone who was confirmed or suspected to have Coronavirus / COVID-19? documented as of this encounter Plan of Treatment Not on filedocumented as of this encounter Procedures Procedure Name Priority Date/Time Associated Diagnosis Comme nts XR SPINE COMPLETE Routine 07/21/2020 2:31 PM Other secondary R esults for this SCOLIOSIS 2 VIEWS NURSERY SCHOOL TEACHER scoliosis, procedure are in thoracolumbar region the res ults section. 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 1. Postsurgical changes of segmental spi nal fusion instrumentation T3-L4. Hardware appears intact without e vidence of complications. 2. Moderate right convexed curvature of the thoracolumbar/lumbar spine. 3. Positive global coronal imbalance. No global sagittal imbalance. 4. Weight bearing axis as detailed above . STEFANIE ABREU, Narrative 07/21/2020 5:48 PM NURSERY SCHOOL TEACHER Exam: Full body radiographs using EOS History: [...] L1/L2. Positive global coronal imbalance. Sagittal Vertical Roselle (A vertical line drawn from the center [...] L1/L2. Positive global coronal imbalance. Sagittal Vertical Roselle (A vertical line drawn from the center [...] on filedocumented in this encounter Care Teams Molder Fitting Relationship Specialty Start Date End Date [facility], [facility] PCP - General 10/15/17 08/08/[address] [address] Julian Spencer MD MD Orthopedics 03/08/[address] [place] [id number] Mariposa Atwood, Assigned PCP 04/29/2005/25 [address] [facility] [place], [place] [address] Julian Spencer MD Assigned Musculoskeletal 05/27/[address] Provider [place], [place] [address] Eugenio Finney, Assigned Pediatric 06/19/20 06/03/21 Specialist Provider [address] [facility] [address] [place] [address] documented as of this encounter
--- OUTSIDE RECORDS SUMMARY | 2022-06-18 12:01 | XMS_ITS | Encounter Summary ---
:2001 Author Organization [place] Address [address] [place] [address] Care Team Providers Name Role Phone [facility], [facility] Primary Care Provide r Julian Spencer MD Unavailable Mariposa Atwood MD Unavailable [phone] Julian Spencer MD Unavailable Eugenio Finney MD Unavailable [phone] Encounter Details Date Type Department Care Team Description 07/21/2020 Prep for Procedure [facility] Julian Spencer iosis (Primary Dx); Orthopedic Clinic MD Darell Painful orthopaedic hardware (H) [address] [place] [phone] Social History Tobacco Use Types Packs/Day Years Used Date Smoking Tobacco: Never Smokeless Tobacco: Never Sex Assigned at Date Recorded Female 12/02/2020 1:42 PM CDT COVID-19 Exposure Response Date Recorded In the last month, have you been in contact with No / Unsure 07/21/2020 2:20 PM HEEL WASHER STRINGING MACHINE OPERATOR someone who was confirmed or suspected to have Coronavirus / COVID-19? documented as of this encounter Plan of Treatment Not on filedocumented as of this encounter Visit Diagnoses Diagnosis Scoliosis - Primary Scoliosis (and kyphoscoliosis), idiopath ic Painful orthopaedic hardware (H) documented in this encounter Care Teams Drafter Automotive Design Layout Relationship Specialty Start Date End Date Clinic, [facility] PCP - General 10/15/17 08/08/[address] [address] Julian Spencer MD MD Orthopedics 03/08/[address] [place] [address] Mariposa Atwood, Assigned PCP 04/29/2005/25 [facility] [place] [address] Julian Spencer MD Assigned Musculoskeletal 05/27/[address] [place] [address] Eugenio Finney, Assigned Pediatric 06/19/20 06/03/21 Specialist Provider [address] [facility] [address] [place], [place] [phone] documented as of this encounter
--- OUTSIDE RECORDS SUMMARY | 2022-06-18 12:01 | XMS_ITS | Encounter Summary ---
:2001 Author Organization [place] Address [address] [facility] [place] [address] Care Team Providers Name Role Phone Clinic, [facility] Primary Care Provide r Julian Spencer MD Unavailable Mariposa Atwood MD Unavailable [phone] Julian Spencer MD Unavailable Eugenio Finney MD Unavailable [phone] Encounter Details Date Type Department Care Team Description 07/21/2020 Orders Only UR RE OR Julian Spencer Encounter for screening [address] [place] [address] diseases (Primary Dx) [phone] [address] [place] [address] Social History Tobacco Use Types Packs/Day Years Used Date Smoking Tobacco: Never Smokeless Tobacco: Never Sex Assigned at Date Recorded Female 12/02/2020 1:42 PM CDT COVID-19 Exposure Response Date Recorded In the last month, have you been in contact with No / Unsure 07/21/2020 2:20 PM NEIGHBORHOOD WORKER someone who was confirmed or suspected to have Coronavirus / COVID-19? documented as of this encounter Plan of Treatment Not on filedocumented as of this encounter Results Asymptomatic COVID-19 Virus (Coronavirus) by PCR (08/07/2020 3:30 PM NEIGHBORHOOD WORKER) Component Value Ref Test Analysis Performed At [facility] Range Method Time Signature COVID-19 Nasopharyngeal 08/07/2020 [facility] Virus PCR to 3:13 PM NEIGHBORHOOD WORKER [place] [facility] COVID-19 Test received-See 08/07/2020 INFECTIOUS Virus PCR to reflex to IDDL 7:27 PM NEIGHBORHOOD WORKER DISEASES [facility] [place] - test SARS CoV2 DIAGNOSTIC Result (COVID-19) Virus LABORATORY, RT-PCR [facility] Specimen (Source) Anatomical Collection Method Collection Time Re ceived Time Location / / Volume Laterality Specimen from 08/07/2020 3:30 08/07/2020 nasopharyngeal PM NEIGHBORHOOD WORKER 3:32 PM NEIGHBORHOOD WORKER structure (specimen) Julian Spencer MD LAB - MICRO GENERAL ORDERABL ES Performing Organization Address City/State/ZIP Code Phon e Number INFECTIOUS DISEASES DIAGNOSTIC [address] [facility] [place] [address] LABORATORY, [facility] [address] [place] [address] [facility] documented in this encounter Visit Diagnoses Diagnosis Encounter for screening for other viral diseases - Primary documented in this encounter Care Teams Graves Registration Specialist Relationship Specialty Start Date End Date Clinic, [facility] PCP - General 10/15/17 08/08/[address] [address] Julian Spencer MD MD Orthopedics 03/08/[address] [place] [id number] Mariposa Atwood, Assigned PCP 04/29/2005/[address] [place] [address] [place], [place] [phone] Julian Spencer MD Assigned Musculoskeletal 05/27/[address] Provider [place], [place] [phone] Eugenio Finney, Assigned Pediatric 06/19/20 06/03/21 Specialist Provider [address] [facility] [address] [place], [place] [phone] documented as of this encounter
--- OUTSIDE RECORDS SUMMARY | 2022-06-18 12:01 | XMS_ITS | Encounter Summary ---
:2001 Author Organization [place] Address [address] [place] [address] Care Team Providers Name Role Phone [facility], [facility] Primary Care Provide r Julian Spencer MD Unavailable Mariposa Atwood MD Unavailable [phone] Julian Spencer MD Unavailable Eugenio Finney MD Unavailable [phone] Reason for Visit Reason Onset Date Comments Call Back 07/20/2020 more info on patient Clinic Care Coordination - Follow-up 07/20/2020 Encounter Details Date Type Department Care Team Description 07/20/2020 Telephone [facility] Call Back (more info on Orthopedic Clinic MD Darell patient); Clinic Care [address] Coordination - Follow-up 9 [facility] [address] 4th [place] [phone] Social History Tobacco Use Types Packs/Day Years Used Date Smoking Tobacco: Never Smokeless Tobacco: Never Sex Assigned at Date Recorded Female 12/02/2020 1:42 PM CDT COVID-19 Exposure Response Date Recorded In the last month, have you been in contact with No / Unsure 07/05/2020 8:01 AM HOSPICE HOME CARE COORDINATOR someone who was confirmed or suspected to have Coronavirus / COVID-19? documented as of this encounter Miscellaneous Notes Telephone Encounter - Sabina Asif, RN - 07/20/2020 10:41 AM CST See phone message. See my triage note yesterday when I explained all to mom & made RTN appt for tomorrow 07-21-20. I called back to Mental health provider in message & left voicemail that long delay was due to complicated PEDS Hematology consult now completed & Insurance just approved surgery yesterday, so [facility] cell preparer is working on figuring out date with 2 providers schedules & then has toget permission from hospital due to Pandemic restrictions. Call back prn. Sabina Asif RN. ICE HOME CARE COORDINATOR Telephone Encounter - Jaleesa Peralta - 07/20/2020 8:[address] [facility] Call [facility] Phone Message May a detailed message be left on voicemail: no Reason for Call: Other: Gilma from [facility] would like a c/b to discuss when patient may have surgery. She is working w/patient on mental health issues and said the lack of knowing more about when the surgery could happen is causing anxeity. Action Taken: Message routed to: [facility] ORTHO Travel Screening: Not Applicable ICE HOME CARE COORDINATOR documented in this encounter Plan of Treatment Not on filedocumented as of this encounter Visit Diagnoses Not on filedocumented in this encounter Care Teams Svp Research & Ebusiness Operations Relationship Specialty Start Date End Date [facility] PCP - General 10/15/17 08/08/20 [facility] [address] [place] [address] Julian Spencer MD MD Orthopedics 03/08/[address] [place], [place] [address] Mariposa Atwood, Ade PCP 04/29/2005/[address] [place] [address] Julian Spencer MD Assigned Musculoskeletal 05/27/[address] Provider [place], [place] [phone] Eugenio Finney, Assigned Pediatric 06/19/20 06/03/21 Specialist Provider [address] [facility] [address] [place], [place] [address] documented as of this encounter
--- OUTSIDE RECORDS SUMMARY | 2022-06-18 12:01 | XMS_ITS | Encounter Summary ---
:2001 Author Organization [place] Address [address] [place] [address] Care Team Providers Name Role Phone Clinic, [facility] Primary Care Provide r Julian Spencer MD Unavailable Mariposa Atwood MD Unavailable [phone] Julian Spencer MD Unavailable Eugenio Finney MD Unavailable [phone] Reason for Visit Diagnostic Imaging XR (Routine) - Closed Specialty Diagnoses / Procedures Referred By Contact Refer red To Contact Diagnoses Transitional vertebra Julian Spencer MD Procedures XR Pelvis G/E 3 Views [address] [place], [place] [address] Referral ID Status Reason Start Date Expiration Date Visits Requ ested Visits Authorized [id number] Closed 07/21/2020 07/21/2021 1 1 Encounter Details Date Type Department Care Team Description 07/21/2020 Ancillary Procedure [facility] Julian Spencer Orthopedic Juveay MD Darell [place] [address] [place], [place] 4th Floor [address] [place], [place] [phone] (Work) [phone] Social History Tobacco Use Types Packs/Day Years Used Date Smoking Tobacco: Never Smokeless Tobacco: Never Sex Assigned at Date Recorded Female 12/02/2020 1:42 PM CDT COVID-19 Exposure Response Date Recorded In the last month, have you been in contact with No / Unsure 07/21/2020 2:20 PM CARPENTER APPRENTICE someone who was confirmed or suspected to have Coronavirus / COVID-19? documented as of this encounter Plan of Treatment Not on filedocumented as of this encounter Procedures Procedure Name Priority Date/Time Associated Diagnosis Comme nts XR PELVIS G/E 3 Routine 07/21/2020 3:49 PM Transitional verteb ra Results for this VIEWS CARPENTER APPRENTICE procedure are i n the results section. 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 WILNER HERRERA Narrative 07/21/2020 4:13 PM CARPENTER APPRENTICE 1 view pelvis radiograph(s) 07/21/2020 4:10 PM History: Transitional vertebra Comparison: Same day full spine. Findings: Single AP view(s) of the pelvis were obt ained. No acute osseous abnormality. Lumbosacral transitional anatomy with pa rtially lumbarized S1 vertebral body is assumed for the purpos e of this dictation counting from top on the same day full spine radi ographs. Left S1/S2 appears fully fused and right S1 is lumbarized w ithout pseudoarthrosis. No substantial degenerative change of hi ps. Sacrum and innominate bones are partiall y obscured by overlying bowel gas/fecal content. Procedure Note Wilner Herrera MD - 07/21/2020Forma tting of this note might be different from the original. 1 view pelvis radiograph(s) 07/21/2020 4 :10 PM History: Transitional vertebra Comparison: Same day full spine. Findings: Single AP view(s) of the pelvis were obt ained. No acute osseous abnormality. Lumbosacral transitional anatomy with pa rtially lumbarized S1 vertebral body is assumed for the purpos e of this dictation counting from top on the same day full spine radi ographs. Left S1/S2 appears fully fused and right S1 is lumbarized w ithout pseudoarthrosis. No substantial degenerative change of hi ps. Sacrum and innominate bones are partiall y obscured by overlying bowel gas/fecal content. 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 WILNER HERRERA Julian Spencer MD IMG DIAGNOSTIC IMAGING ORDER DANO documented in this encounter Visit Diagnoses Not on filedocumented in this encounter Care Teams Chassis Mechanic Relationship Specialty Start Date End Date [facility], [facility] PCP - General 10/15/17 08/08/[address] [address] Julian Spencer MD MD Orthopedics 03/08/[address] [place] [phone] Mariposa Atwood, Assigned PCP 04/29/2005/25 [facility] [place] [address] Julian Spencer MD Assigned Musculoskeletal 05/27/20 [address] [place], [place] [phone] Provider [place], [place] [phone] Eugenio Finney, Assigned Pediatric 06/19/20 06/03/21 Specialist Provider [address] [facility] 96 [place], [place] [address] documented as of this encounter
--- OUTSIDE RECORDS SUMMARY | 2022-06-18 12:01 | XMS_ITS | Encounter Summary ---
:2001 Author Organization [place] Address [address] [place] [address] Care Team Providers Name Role Phone [facility], [facility] Primary Care Provide r Julian Spencer MD Unavailable Mariposa Atwood MD Unavailable [phone] uJlian Spencer MD Unavailable Eugenio Finney MD Unavailable [phone] Encounter Details Date Type Department Care Team Description 06/20/2020 Travel Social History Tobacco Use Types Packs/Day Years Used Date Smoking Tobacco: Never Smokeless Tobacco: Never Sex Assigned at Date Recorded Female 12/02/2020 1:42 PM CDT COVID-19 Exposure Response Date Recorded In the last month, have you been in contact with No / Unsure 06/20/2020 8:16 AM PROCESS DEVELOPMENT ASSOCIATE someone who was confirmed or suspected to have Coronavirus / COVID-19? documented as of this encounter Plan of Treatment Not on filedocumented as of this encounter Visit Diagnoses Not on filedocumented in this encounter Care Teams Maintenance Truck Driver Relationship Specialty Start Date End Date [facility] PCP - General 10/15/17 08/08/[address] [address] Julian Spencer MD MD Orthopedics 03/08/[address] [place], [place] [address] Mariposa Atwood, Assigned PCP 04/29/2005/25 [address] [facility] [place], [place] [phone] Julian Spencer MD Assigned Musculoskeletal 05/27/[address] Provider [place], [place] [phone] Eugenio Finney, Assigned Pediatric 06/19/20 06/03/21 Specialist Provider [address] [facility] [address] [place], [place] [address] documented as of this encounter
--- OUTSIDE RECORDS SUMMARY | 2022-06-18 12:01 | XMS_ITS | Encounter Summary ---
:2000 Author Organization [place] Address [address] [place] [address] Care Team Providers Name Role Phone [facility], [facility] Primary Care Provide r Julian Spencer MD Unavailable Mariposa Atwood MD Unavailable [phone] Julian Spencer MD Unavailable Reason for Visit Reason Comments RECHECK f/u MRI got from [facility] and Hem atology and neurosugery consults. S/P Fusion for scoliosis. HX. Tethered cord . Von Willebrands Disease Encounter Details Date Type Department Care Team Description 06/15/2020 Virtual Visit [facility] Julian Spencer ondary scoliosis, thoracolumbar region (Primary Dx); Orthopedic Clinic MD Darell Tethered cord (H); [address] History of fusion of spine f or scoliosis [address] [facility] [address] [place] [address] [phone] Social History Tobacco Use Types Packs/Day Years Used Date Smoking Tobacco: Never Smokeless Tobacco: Never Sex Assigned at Date Recorded Female 12/02/2020 1:42 PM CDT COVID-19 Exposure Response Date Recorded In the last month, have you been in contact with No / Unsure 06/15/2020 10:51 AM FAMILY CONSUMER SCIENTIST someone who was confirmed or suspected to have Coronavirus / COVID-19? documented as of this encounter Progress Notes Julian Spencer MD - 06/15/2020 2:30 PM CST Reason For Visit: Chief Complaint Patient presents with ??? RECHECK f/u MRI got from [facility] and Hematology and neurosugery consults. S/P Fusion for scoliosis. HX. Tethered cord. Von Willebrands Disease Primary MD: Clinic, [facility] Ref. MD: Est Nightman? No Occupation Student. ?? Date of injury: No Type of injury: No. ?? Date of surgery: Several surgeries Type of surgery: Fusions and hardware removal, refused last February ?? Smoker: No Request smoking cessation information: No There were no vitals taken for this visit. Pain Assessment Patient Currently in Pain: Yes 0-10 Pain Scale: 8 Primary Pain Location: Back Oswestry (LOKESH) Questionnaire OSWESTRY DISABILITY INDEX 05/05/2020 Count 9 Sum 27 Oswestry Score (%) 60 Some recent data might be hidden Neck Disability Index (NDI) Questionnaire No flowsheet data found. Visual Analog Pain Scale Back Pain Scale 0-10: 8 Right leg pain: 0 Left leg pain: 0 Neck Pain Scale 0-10: 0 Right arm pain: 0 Left arm pain: 0 Promis 10 Assessment PROMIS 10 05/05/2020 In general, would you say your health is: Excellent In general, would you say your quality of life is: Poor In general, how would you rate your physical health? Poor In general, how would you rate your mental health, including your mood and your ability to think? Excellent In general, how would you rate your [...] would you rate your fatigue on average? Mild How would you rate your pain on [...] your mood and your ability to think? 5 In general, how would you rate your [...] would you rate your fatigue on average? 2 In the past 7 days, how would you rate your pain on average, where 0 means no pain, and 10 means worst imaginable pain? 9 Global Mental Health Score 13 Global Physical Health Score 9 PROMIS TOTAL - SUBSCORES 22 Some recent data might be hidden Reyna Chávez LPN Video Visit Technology for this patient: Karen not working, patient has smart device, please try [employer] Video with patient Dakota Casiano is a 19 year old [...] has given verbal consent for Video visit? yes How would you like to obtain your AVS? MyChart If you are dropped from the video visit, the video invite should be resent to: Text to cell phone: [phone] Will anyone else be joining your video visit? No Video-Visit Details Type of service: Video Visit Video Start Time: 11:32 am Video End Time: 11:48 am Originating Location (pt. Location): Home Distant Location (provider location): [facility] Platform used for Video Visit: Doximity Complex medical history. H/O tethered cord. H/O spinal fusion for scoliosis with probable reaction to metallic implants. Bleeding issues with surgeries. Unclear diagnosis presumed von Willebrands. Has seen Dr. Mariposa Atwood who has made substantial efforts at trying to run done her records for diagnosis and the intra-operative treatments. I discussed this with Dr. Atwood yesterday and basically she is going to redo the work up (tests ordered) and then propose a management plan based upon the results of the work up. Once again I discussed with Dakota and her mom that I am willing to remove her spinal instrumentationbut that there is a risk (According to Deckey and Gutierrez paper) of about 1/3 of patients having recurrent deformity. They understand this and accept it and want to proceed. 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 The surgery would be removal of segmental spinal instrumentation T3-L4 (has transitional anatomy so distal numbering can be variable). This could be outpatient except for her bleeding history.No neuromonitoring needed. General anesthesia (TXA and whatever protocol Dr. Atwood indicates). Surgical [id number] minutes. Will need Peds anesthesia eval prior to coordinate blood management. Will ask for cell saver. May need PICU again depending on blood management needs. Risks benefits alternative treatments and expected outcomes have been extensively discussed previously. Will need need full spine films preferably EOS prior to surgery. 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 History of fusion of spine for scoliosis documented in this encounter Care Teams Green House Manager Relationship Specialty Start Date End Date [facility], [facility] PCP - General 10/15/17 08/08/[address] [address] Julian Spencer MD MD Orthopedics 03/08/[address] [place], [place] [phone] Mariposa Atwood, Assigned PCP 04/29/2005/25 [facility] [place], [place] [phone] Julian Spencer MD Assigned Musculoskeletal 05/27/[address] Provider [place], [place] [phone] documented as of this encounter
--- OUTSIDE RECORDS SUMMARY | 2022-06-18 12:01 | XMS_ITS | Encounter Summary ---
:2000 Author Organization [place] Address [address] [place] [address] Care Team Providers Name Role Phone [facility], [facility] Primary Care Provide r Julian Spencer MD Unavailable Mariposa Atwood MD Unavailable [phone] Julian Spencer MD Unavailable Eugenio Finney MD Unavailable [phone] Encounter Details Date Type Department Care Team Description 07/05/2020 Travel Social History Tobacco Use Types Packs/Day Years Used Date Smoking Tobacco: Never Smokeless Tobacco: Never Sex Assigned at Date Recorded Female 12/02/2020 1:42 PM CDT COVID-19 Exposure Response Date Recorded In the last month, have you been in contact with No / Unsure 07/05/2020 8:01 AM [employer] someone who was confirmed or suspected to have Coronavirus / COVID-19? 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
--- OUTSIDE RECORDS SUMMARY | 2022-06-18 12:01 | XMS_ITS | Encounter Summary ---
:2001 Author Organization [place] Address [address] [place] [address] Care Team Providers Name Role Phone Clinic, [facility] Primary Care Provide r Julian Spencer MD Unavailable Mariposa Atwood MD Unavailable [phone] Julian Spencer MD Unavailable Eugenio Finney MD Unavailable [phone] Encounter Details Date Type Department Care Team Description 06/20/2020 [facility] Only [facility] Lab Von Wi llebrand's disease [place] () [address] [phone] Social History Tobacco Use Types Packs/Day Years Used Date Smoking Tobacco: Never Smokeless Tobacco: Never Sex Assigned at Date Recorded Female 12/02/2020 1:42 PM CDT COVID-19 Exposure Response Date Recorded In the last month, have you been in contact with No / Unsure 06/20/2020 8:16 AM WOODS OVERSEER someone who was confirmed or suspected to have Coronavirus / COVID-19? documented as of this encounter Plan of Treatment Not on filedocumented as of this encounter Procedures Procedure Name Priority Date/Time Associated Comments Diagnosis SEND OUTS MISC TEST Routine 06/20/2020 8:40 AM Von Willebrand' s Results for this WOODS OVERSEER disease (H) procedure are i n the results section. SEND OUTS MISC TEST Routine 06/20/2020 8:40 AM Von Willebrand' s Results for this WOODS OVERSEER disease (H) procedure are i n the results section. LABORATORY Routine 06/20/2020 8:40 AM Von Willebrand's Resul ts for this MISCELLANEOUS ORDER WOODS OVERSEER disease (H) procedur e are in the results section. LABORATORY Routine 06/20/2020 8:40 AM Von Willebrand's Resul ts for this MISCELLANEOUS ORDER WOODS OVERSEER disease (H) procedur e are in the results section. CARDIOLIPIN JOSUE IGG AND Routine 06/20/2020 8:40 AM Von Willebr and's Results for this IGM WOODS OVERSEER disease (H) procedure are i n the results section. BETA 2 GLYCOPROTEIN Routine 06/20/2020 8:40 AM Von Willebrand' s Results for this ANTIBODIES IGG IGM WOODS OVERSEER disease (H) procedure are in the results section. PLASMINOGEN ACTIVATOR Routine 06/20/2020 8:40 AM Von Willebran d's Results for this INHIBITOR 1 WOODS OVERSEER disease (H) procedure are i n the results section. VON WILLEBRAND Routine 06/20/2020 8:40 AM Von Willebrand's Res ults for this INTERPRETATION WOODS OVERSEER disease (H) procedure are in the results section. FACTOR 13 ANTIGEN Routine 06/20/2020 8:40 AM Von Willebrand's Results for this SUBUNIT A WOODS OVERSEER disease (H) procedure are i n the results section. VWF ACTIVITY REFLEX TO Routine 06/20/2020 8:40 AM Von Willebra nd's Results for this RISTOCETIN COFACTOR WOODS OVERSEER disease (H) procedur e are in the results section. VON WILLEBRAND FACTOR Routine 06/20/2020 8:40 AM Von Willebran d's Results for this MULTIMERS WOODS OVERSEER disease (H) procedure are i n the results section. RISTOCETIN COFACTOR Routine 06/20/2020 8:40 AM Von Willebrand' s Results for this ACTIVITY WOODS OVERSEER disease (H) procedure are i n the results section. VON WILLEBRAND Routine 06/20/2020 8:40 AM Von Willebrand's Res ults for this MULTIMERS WOODS OVERSEER disease (H) procedure are i n the results section. TEG WITHOUT HEPARINASE Routine 06/20/2020 8:40 AM Von Willebra nd's Results for this WOODS OVERSEER disease (H) procedure are i n the results section. VON WILLEBRAND ANTIGEN Routine 06/20/2020 8:40 AM Von Willebra nd's Results for this WOODS OVERSEER disease (H) procedure are i n the results section. TSH WITH FREE T4 REFLEX Routine 06/20/2020 8:40 AM Von Willebr and's Results for this WOODS OVERSEER disease (H) procedure are i n the results section. THROMBIN TIME Routine 06/20/2020 8:40 AM Von Willebrand's Resu lts for this WOODS OVERSEER disease (H) procedure are i n the results section. INR Routine 06/20/2020 8:40 AM Von Willebrand's Resul ts for this WOODS OVERSEER disease (H) procedure are i n the results section. PLATELET AGGREGATION W/ Routine 06/20/2020 8:40 AM Von Willebr and's Results for this ADP, TBN, COL, ARACH A, WOODS OVERSEER disease (H) proc edure are in RIST(3CONC) the results section. PLASMINOGEN ACTIVITY Routine 06/20/2020 8:40 AM Von Willebrand 's Results for this WOODS OVERSEER disease (H) procedure are i n the results section. PARTIAL THROMBOPLASTIN Routine 06/20/2020 8:40 AM Von Willebra nd's Results for this TIME WOODS OVERSEER disease (H) procedure are i n the results section. LUPUS ANTICOAGULANT Routine 06/20/2020 8:40 AM Von Willebrand' s Results for this PANEL WOODS OVERSEER disease (H) procedure are i n the results section. FIBRINOGEN ACTIVITY Routine 06/20/2020 8:40 AM Von Willebrand' s Results for this WOODS OVERSEER disease (H) procedure are i n the results section. FACTOR 9 ASSAY Routine 06/20/2020 8:40 AM Von Willebrand's Res ults for this WOODS OVERSEER disease (H) procedure are i n the results section. FACTOR 8 ASSAY Routine 06/20/2020 8:40 AM Von Willebrand's Res ults for this WOODS OVERSEER disease (H) procedure are i n the results section. FACTOR 7 ASSAY Routine 06/20/2020 8:40 AM Von Willebrand's Res ults for this WOODS OVERSEER disease (H) procedure are i n the results section. FACTOR 5 ASSAY Routine 06/20/2020 8:40 AM Von Willebrand's Res ults for this WOODS OVERSEER disease (H) procedure are i n the results section. FACTOR 2 ASSAY Routine 06/20/2020 8:40 AM Von Willebrand's Res ults for this WOODS OVERSEER disease (H) procedure are i n the results section. FACTOR 11 ASSAY Routine 06/20/2020 8:40 AM Von Willebrand's Re sults for this WOODS OVERSEER disease (H) procedure are i n the results section. FACTOR 10 ASSAY Routine 06/20/2020 8:40 AM Von Willebrand's Re sults for this WOODS OVERSEER disease (H) procedure are i n the results section. CRP INFLAMMATION Routine 06/20/2020 8:40 AM Von Willebrand's R esults for this WOODS OVERSEER disease (H) procedure are i n the results section. ABO AND RH Routine 06/20/2020 8:40 AM Von Willebrand's Resul ts for this WOODS OVERSEER disease (H) procedure are i n the results section. documented in this encounter Results von Willebrand Factor Multimers (06/20/2020 8:40 AM WOODS OVERSEER) [facility] Method Time Signature von Willebrand SEE NOTE 06/28/2020 [facility] Factor 5:41 PM WOODS OVERSEER [facility] Comment: (Note) von Willebrand factor multimeric analysi s shows a normal multimeric distribution. Multimeric analysis is a qualitative noah t that cannot be used alone for the diagnosis or subtypin g of von Willebrand disease. ??This result should be correla jhonathan with quantitative results from vWF antigen, v WF ristocetin cofactor activity, factor VIII activity testing, and clinical information to exclude subtypes of von Willebrand disease with a normal multimeric distrib ution. ??Additional information regarding diagnosis and subt yping of von Willebrand disease is available at [email or web address]. INTERPRETIVE INFORMATION: von Willebrand Factor Multimers This test was developed and its performa nce characteristics determined by [facility]. The U. S. Food and Drug Administration has not approved or clear ed this test; however, FDA clearance or approval is no t currently required for clinical use. The results a re not intended to be used as the sole means for clinical d iagnosis or patient management decisions. Test developed and characteristics deter mined by [facility]. See Compliance Statement D : [email or web address] Performed By: [facility] [address] [place] [id number] Environmental Conservation Professor: Brandi Dooley MD Specimen Anatomical Collection Method Collection Time Receive d Time (Source) Location / / Volume Laterality 06/20/2020 8:40 AM 0 8:44 WOODS OVERSEER AM WOODS OVERSEER Mariposa Atwood MD LAB - BLOOD ORDERABLES Performing Organization Address City/State/ZIP Code Phon e Number [address] [address] [facility] Ristocetin Cofactor Activity (06/20/2020 8:40 AM WOODS OVERSEER) P athologist Signature Ristocetin 75 51 - 215 % 06/24/2020 [facility] OF Cofactor 12:50 PM WOODS OVERSEER [place] Activity [facility] Comment: (Note) REFERENCE INTERVAL: von Willebrand Facto r, Activity (RCF) Access complete set of age- and/or gende r-specific reference intervals for this test in the [facility] Directory ([facility]). Performed by [facility], [address] [facility] [place] [address] [email or web address], Brandi Dooley MD, Lab. Director Specimen Anatomical Collection Method Collection Time Receive d Time (Source) Location / / Volume Laterality 06/20/2020 8:40 AM 0 8:44 WOODS OVERSEER AM WOODS OVERSEER Mariposa Atwood MD LAB - BLOOD ORDERABLES Performing Organization Address City/[facility]/ZIP Code Phon e Number [address] [address] [facility] Send outs misc test (06/20/2020 8:40 AM WOODS OVERSEER) Analysis Performed At Patho logist Time Signature Lab Scanned SEND OUTS MISYS Result MISC TEST-Scann ed Specimen Anatomical Collection Method Collection Time Receive d Time (Source) Location / / Volume Laterality 06/20/2020 8:40 AM 0 WOODS OVERSEER 12:17 PM WOODS OVERSEER Mariposa Atwood MD LAB - BLOOD ORDERABLES Performing Organization Address City/State/ZIP Code Phon e Number MISYS Send outs misc test (06/20/2020 8:40 AM WOODS OVERSEER) Analysis Performed At Patho logist Time Signature Lab Scanned SEND OUTS MISYS Result MISC TEST-Scann ed Specimen (Source) Anatomical Collection Method Collection Time Re ceived Time Location / / Volume Laterality 06/20/2020 8:40 AM WOODS OVERSEER Mariposa Atwood MD LAB - BLOOD ORDERABLES Performing Organization Address City/State/ZIP Code Phon e Number [facility] Platelet Aggregation w/ ADP, TBN, COL, ARACH A, RIST(3conc) (06/20/2020 8:40 AM WOODS OVERSEER) [facility] Method Time Signature ADP See table 06/20/2020 [facility] 2:11 PM [facility] Thrombin See table 06/20/2020 [facility] 2:11 PM [facility] Epinephrine See table 06/20/2020 [facility] 2:11 PM [facility] Collagen See table 06/20/2020 [facility] 2:11 PM [facility] Arachadonic Acid (Note) 06/20/2020 [place] [facility] 2:11 PM [facility] Comment: Abnormal platelet aggregation study. The tracing of the Epinephrine reaction has a normal primary wave, but has an additional wave form late. The maximal platelet aggregation w as within normal limits with all agonists tested (ADP, Epinephrine, C ollagen, Arachidonic Acid, and low and high concentrations of Risto cetin). ??The ATP release is within normal with ADP and Thrombin. The significance of the finding with Epinephrine is of unclear signfican ce as decreased or absent aggregation with Epinephrine can be a no rmal finding. ??Clinical correlation with personal and family ble eding history is recommended. Recommend obtaining platele t electron microscopy and consider repeat testing. If a platelet d isorder is highly suspected, consider obtaining genetic testing inclu ding testing for urokinase plasminogen activator gene (PLAU) which is associated with [place] platelet disorder as this disorder may h ave abnormal aggregation to Epinephrine. ? Sunni Whitley M.D. [phone] ? 06/20/2020 ? ATP RELEASE: ? ATP Release with ADP: ?Norm al, 1.40 nm ? ATP Release with Thrombin: ? Normal, 1.05 nm ? AGGREGATION: Reagent ??Concentration ?Primary Agg ?Maximal Agg ADP ?5 micromolar ? Single la rge wave ?Normal, >100% EPI ?10 micromolar ?Present ?Normal, 100% ? abnormal wave pattern COL ?2.0 mcg/mL ? ------- ?Normal, >100% Ar. A. ?? 0.50 mg/mL ? ------- ?Normal, 100% REFERENCE RANGES: ATP release with TBN ??Greater [...] or equal to 63% Ristocetin-4 Conc (Note) 06/20/2020 2:11 PM WOODS OVERSEER [facility] Comment: See full platelet aggregation comments. ? Sunni Whitley M.D. [phone] ? 06/20/2020 ? RISTOCETIN: Concentration ?Primary Agg ? Maximal Agg 0.50 mg/mL ? Absent ?Normal, 5% ?? 1.00 mg/mL ? Single large wave ?? Normal, >100% 1.25 mg/mL ? Single large wave ?? Normal, 100% REFERENCE RANGES: Ristocetin Conc. ??% Aggregation Risto 0.5 mg/mL ?? Less than or equal to 6% Risto 1.0 mg/mL ?? Greater than or equal to 11% Risto 1.25 mg/mL ??Greater than or equal to 76% Specimen Anatomical Collection Method Collection Time Receive d Time (Source) Location / / Volume Laterality Blood specimen 06/20/2020 8:40 AM 020 8:44 (specimen) WOODS OVERSEER AM WOODS OVERSEER Mariposa [place]wood MD LAB - BLOOD ORDERABLES Performing Organization Address [facility] Phon e Number [facility] [address] Factor 8 assay (06/20/2020 8:40 AM WOODS OVERSEER) P athologist Signature Factor 8 Assay 62 55 - 200 % 06/22/2020 [facility] OF 10:49 AM WOODS OVERSEER [facility] Specimen Anatomical Collection Method Collection Time Receive d Time (Source) Location / / Volume Laterality Blood specimen 06/20/2020 8:40 AM 020 8:44 (specimen) WOODS OVERSEER AM WOODS OVERSEER Mariposa Atwood MD LAB - BLOOD ORDERABLES Performing Organization Address [facility]/ZIP Code Phon e Number [facility] [address] Von Willebrand antigen (06/20/2020 8:40 AM WOODS OVERSEER) P athologist Signature von Willebrand 77 50 - 200 % 06/22/2020 [facility] Antigen 10:50 AM WOODS OVERSEER [facility] Comment: The presence of Rheumatoid Factor may pr oduce an overestimation of the test result. Specimen Anatomical Collection Method Collection Time Receive d Time (Source) Location / / Volume Laterality Blood specimen 06/20/2020 8:40 AM 020 8:44 (specimen) WOODS OVERSEER AM WOODS OVERSEER Mariposa [place] MD LAB - BLOOD ORDERABLES Performing Organization Address City/[facility]/ZIP Code Phon e Number [facility] [address] [place] [address] [facility] VWF Activity with reflex to Ristocetin Cofactor Activity (06/20/2020 8:40 AM WOODS OVERSEER) P athologist Signature von Willebrand 83 50 - 180 % 06/22/2020 [facility] Factor Activity 10:50 AM WOODS OVERSEER [facility] Specimen Anatomical Collection Method Collection Time Receive d Time (Source) Location / / Volume Laterality Blood specimen 06/20/2020 8:40 AM 020 9:10 (specimen) WOODS OVERSEER AM WOODS OVERSEER Mariposa Atwood MD LAB - BLOOD ORDERABLES Performing Organization Address City/[facility]/ZIP Code Phon e Number [facility] [address] [id number] [facility] Von Willebrand Multimers (06/20/2020 8:40 AM WOODS OVERSEER) Component Value Ref Test Analysis Performed At [facility] Range Method Time Signature Von Multimer analysis will be se nt. Reordered as reference send out test. Interpretation 06/22/2020 [facility] Willebrand pending multimer analysis. 2:20 PM [facility] Specimen Anatomical Collection Method Collection Time Receive d Time (Source) Location / / Volume Laterality Blood specimen 06/20/2020 8:40 AM 020 8:44 (specimen) WOODS OVERSEER AM WOODS OVERSEER Mariposa Atwood MD LAB - BLOOD ORDERABLES Performing Organization Address City/[facility]/ZIP Code Phon e Number [address] [address] [facility] von Willebrand Interpretation (06/20/2020 8:40 AM WOODS OVERSEER) [facility] Method Time Signature von Willebrand (Note) 06/29/2020 [facility] Interpretation 1:39 PM WOODS OVERSEER [facility] Comment: The von Willebrand factor antigen (VWF:A g), von Willebrand factor activity (VWF:ACT), and Factor 8 levels are within normal limits. Ristocetin Cofactor Activity (VWF:RCo) i s normal. The Factor 8 to VWF:Ag ratio, ??the VWF: ACT to VWF:Ag ratio, and the VWF:RCo to VWF:Ag ratio are within barb l limits. ?? The distribution of plasma von Willebran d factor multimers is normal (see report from [facility]). The Ristocetin Induced Platelet Aggregat ion (RIPA) study performed as part of a platelet aggregation study was normal. The diagnosis of von Willebrand disease can neither be established nor excluded on the basis of this specim en. If clinical suspicion is high for von Wi llebrand disease, recommend repeat testing in the first 3 days of e menstrual cycle, since the estrogen level influences the amount of circulating von Willebrand factor. ??Note: Use of oral contraceptiv es and/or could mask von Willebrand disease by elevating VWF:Ag and VWF:ACT levels to normal. ??Family studies may also be helpful. ?? Sunni Whitley M.D. ??[phone] 06/29/2020 Specimen Anatomical Collection Method Collection Time Receive d Time (Source) Location / / Volume Laterality Blood specimen 06/20/2020 8:40 AM 020 8:44 (specimen) WOODS OVERSEER AM WOODS OVERSEER Mariposa [place] MD LAB - BLOOD ORDERABLES Performing Organization Address City/State/ZIP Code Phon e Number [id number] [place] [address] INR (06/20/2020 8:40 AM WOODS OVERSEER) P athologist Signature INR 1.08 0.86 - 1.14 06/20/2020 [facility] 8:59 AM [facility] Specimen Anatomical Collection Method Collection Time Receive d Time (Source) Location / / Volume Laterality Blood specimen 06/20/2020 8:40 AM 020 8:44 (specimen) WOODS OVERSEER AM WOODS OVERSEER Mariposa Atwood MD LAB - BLOOD ORDERABLES Performing Organization Address City/State/ZIP Code Phon e Number [address] [address] [facility] Partial thromboplastin time (06/20/2020 8:40 AM WOODS OVERSEER) P athologist Signature PTT 31 22 - 37 sec 06/20/2020 [facility] 8:59 AM [facility] Specimen Anatomical Collection Method Collection Time Receive d Time (Source) Location / / Volume Laterality Blood specimen 06/20/2020 8:40 AM 020 8:44 (specimen) WOODS OVERSEER AM WOODS OVERSEER Mariposa [place] MD LAB - BLOOD ORDERABLES Performing Organization Address City/[facility]/ZIP Code Phon e Number [address] [address] [facility] Fibrinogen activity (06/20/2020 8:40 AM WOODS OVERSEER) athologist Signature Fibrinogen 279 200 - 420 06/20/2020 [facility] mg/dL 8:59 AM WOODS OVERSEER [facility] Specimen Anatomical Collection Method Collection Time Receive d Time (Source) Location / / Volume Laterality Blood specimen 06/20/2020 8:40 AM 020 8:44 (specimen) WOODS OVERSEER AM WOODS OVERSEER Mariposa [place] MD LAB - BLOOD ORDERABLES Performing Organization Address City/[facility] Code Phon e Number [address] [address] [facility] Thrombin time (06/20/2020 8:40 AM WOODS OVERSEER) athologist Signature Thrombin Time 16.0 13.0 - 06/20/2020 [facility] 19.0 sec 12:06 PM WOODS OVERSEER [facility] Specimen Anatomical Collection Method Collection Time Receive d Time (Source) Location / / Volume Laterality Blood specimen 06/20/2020 8:40 AM 020 8:44 (specimen) WOODS OVERSEER AM WOODS OVERSEER Mariposa [place] MD LAB - BLOOD ORDERABLES Performing Organization Address City/[facility]/ZIP Code Phon e Number [facility] [address] [place] [address] [facility] Factor 11 assay (06/20/2020 8:40 AM WOODS OVERSEER) athologist Signature Factor 11 99 65 - 150 % 06/20/2020 [facility] Assay 11:39 AM [facility] Specimen Anatomical Collection Method Collection Time Receive d Time (Source) Location / / Volume Laterality Blood specimen 06/20/2020 8:40 AM 020 8:44 (specimen) WOODS OVERSEER AM WOODS OVERSEER Mariposa Atwood MD LAB - BLOOD ORDERABLES Performing Organization Address City/State/ZIP Code Phon e Number [facility] [address] [place] [address] [facility] Factor 9 assay (06/20/2020 8:40 AM WOODS OVERSEER) athologist Signature Factor 9 Assay 115 65 - 150 % 06/20/2020 [facility] 11:39 AM [facility] Specimen Anatomical Collection Method Collection Time Receive d Time (Source) Location / / Volume Laterality Blood specimen 06/20/2020 8:40 AM 020 8:44 (specimen) WOODS OVERSEER AM WOODS OVERSEER Mariposa [place] MD LAB - BLOOD ORDERABLES Performing Organization Address City/State/ZIP Code Phon e Number [facility] [address] [place] [address] [facility] Factor 5 assay (06/20/2020 8:40 AM WOODS OVERSEER) athologist Signature Factor 5 Assay 103 60 - 140 % 06/20/2020 [facility] 11:45 AM [facility] Comment: The Factor 5 activity level does not cor relate with the presence of the Factor V Leiden mutation and is not a screenin g test for the Factor V Leiden mutation. Specimen Anatomical Collection Method Collection Time Receive d Time (Source) Location / / Volume Laterality Blood specimen 06/20/2020 8:40 AM 020 8:44 (specimen) WOODS OVERSEER AM WOODS OVERSEER Mariposa Atwood MD LAB - BLOOD ORDERABLES Performing Organization Address City/State/ZIP Code Phon e Number [facility] [address] [place] [address] [facility] Factor 7 assay (06/20/2020 8:40 AM WOODS OVERSEER) athologist Signature Factor 7 Assay 117 50 - 129 % 06/20/2020 [facility] 11:39 AM [facility] Specimen Anatomical Collection Method Collection Time Receive d Time (Source) Location / / Volume Laterality Blood specimen 06/20/2020 8:40 AM 020 8:44 (specimen) WOODS OVERSEER AM WOODS OVERSEER Mariposa [place] MD LAB - BLOOD ORDERABLES Performing Organization Address City/State/ZIP Code Phon e Number [facility] [address] [place] [address] [facility] Factor 2 assay (06/20/2020 8:40 AM WOODS OVERSEER) athologist Signature Factor 2 Assay 114 60 - 140 % 06/20/2020 [facility] 11:39 AM [facility] Comment: The Factor 2 activity level is not a scr eening test for the Prothrombin 66929 mutation. Specimen Anatomical Collection Method Collection Time Receive d Time (Source) Location / / Volume Laterality Blood specimen 06/20/2020 8:40 AM 8:44 (specimen) WOODS OVERSEER AM WOODS OVERSEER Mariposa [place] MD LAB - BLOOD ORDERABLES Performing Organization Address City/[facility]/ZIP Code Phon e Number [facility] [address] Factor 10 assay (06/20/2020 8:40 AM WOODS OVERSEER) athologist Signature Factor 10 133 60 - 140 % 06/20/2020 [facility] OF Assay 11:39 AM [facility] Comment: The Factor 10 activity level is a measur e of Factor 10 activity and is not intended for monitoring anticoagulant th erapy. ??The heparin level (anti-Xa) should be used to monitor heparin therap y. The chromogenic Factor 10 level is sugge sted as an alternative method to monitor vitamin K antagonist therapy (e. g. warfarin) in patients with an unreliable International Normalized Rati o (INR) due to a lupus anticoagulant. Specimen Anatomical Collection Method Collection Time Receive d Time (Source) Location / / Volume Laterality Blood specimen 06/20/2020 8:40 AM 8:44 (specimen) WOODS OVERSEER AM WOODS OVERSEER Mariposa Atwood MD LAB - BLOOD ORDERABLES Performing Organization Address City/[facility]/ZIP Code Phon e Number [facility] [address] Factor 13 Antigen Subunit A (06/20/2020 8:40 AM WOODS OVERSEER) athologist Signature FACTOR 13 AGN 97 75 - 155 % 06/21/2020 [facility] SUBUNIT A 2:08 PM [facility] Specimen Anatomical Collection Method Collection Time Receive d Time (Source) Location / / Volume Laterality Blood specimen 06/20/2020 8:40 AM 8:44 (specimen) WOODS OVERSEER AM WOODS OVERSEER Mariposa [place] MD LAB - BLOOD ORDERABLES Performing Organization Address City/State/ZIP Code Phon e Number [facility] [address] [place] [address] [facility] Plasminogen Activator Inhibitor 1 (06/20/2020 8:40 AM WOODS OVERSEER) athologist Signature Plasminogen 7 3 - 72 06/29/2020 [facility] OF Activator ng/mL 2:14 PM WOODS OVERSEER [facility] Comment: (Note) The plasma JONNY-1 antigen normal range is based on fasting morning samples in adults. ??JONNY-1 level s follow a diurnal variation, with peak levels occurring in the assurance specialist and farrukh levels in the afternoon. This test was developed and its performa nce characteristics determined by [facility] in a manner co nsistent with CLIA requirements. This test has not been romi ared or approved by the U.S. Food and Drug Administration. Test Performed by: [place] [address] Remote Medical Coder: Ronak Jensen M.D. Ph. D.; CLIA# [id number] Specimen Anatomical Collection Method Collection Time Receive d Time (Source) Location / / Volume Laterality Blood specimen 06/20/2020 8:40 AM 020 8:44 (specimen) WOODS OVERSEER AM WOODS OVERSEER Mariposa Atwood MD LAB - BLOOD ORDERABLES Performing Organization Address City/[facility]/ZIP Code Phon e Number [facility] [address] [place] [address] [facility] Plasminogen activity (06/20/2020 8:40 AM WOODS OVERSEER) athologist Signature Plasminogen 124 80 - 133 % 06/22/2020 [facility] Chromogenic 8:55 AM [facility] Specimen Anatomical Collection Method Collection Time Receive d Time (Source) Location / / Volume Laterality Blood specimen 06/20/2020 8:40 AM 020 8:44 (specimen) WOODS OVERSEER AM WOODS OVERSEER Mariposa Atwood MD LAB - BLOOD ORDERABLES Performing Organization Address City/State/ZIP Code Phon e Number [facility] [address] [place] [address] [facility] TEG without Heparinase (06/20/2020 8:40 AM WOODS OVERSEER) Patholo gist Method Time Signature R time until clot 6.2 5 - 10 06/20/2020 [facility] forms Minute 11:09 AM [facility] K time to spec clot 1.4 1 - 3 06/20/2020 [facility] strength Minute 11:09 AM [facility] Angle rate of clot 68.2 53 - 72 06/20/2020 [facility] strength Degrees 11:09 AM [facility] MA maximum clot 66.4 50 - 70 mm 06/20/2020 [facility] F strength 11:09 AM [facility] CI hypercoagulation 0.9 0.0 - 3.0 06/20/2020 [facility] index Ratio 11:09 AM [facility] G actual clot 9.9 4.5 - 11.0 06/20/2020 [facility] strength Kd/sc 11:09 AM [facility] LY30 lysis at 30 1.6 0 - 8 % 06/20/2020 [place] [facility] minutes 11:09 AM [facility] LY60 lysis at 60 5.3 0 - 15 % 06/20/2020 [place] [facility] minutes 11:09 AM [facility] Specimen Anatomical Collection Method Collection Time Receive d Time (Source) Location / / Volume Laterality Blood specimen 06/20/2020 8:40 AM 020 8:44 (specimen) WOODS OVERSEER AM WOODS OVERSEER Mariposa Atwood MD LAB - BLOOD ORDERABLES Performing Organization Address City/State/ZIP Code Phon e Number [facility] [address] [place], [place] [id number] [place] [address] Lupus Anticoagulant Panel (06/20/2020 8:40 AM WOODS OVERSEER) P athologist Signature Lupus Result Negative NEG^Negati 06/21/2020 [facility] ve 2:20 PM WOODS OVERSEER [facility] Comment: (Note) COMMENTS: The INR is normal. APTT ratio is normal. ?? DRVVT Screen ratio is normal. Thrombin time is normal. NEGATIVE TEST; A LUPUS ANTICOAGULANT WAS NOT DETECTED IN THIS SPECIMEN WITHIN THE LIMITS OF THE TESTIN G REPERTOIRE. If the clinical picture is strongly sugg estive of an antiphospholipid syndrome, recommend anticardiolipin and dinq-3-gacaftpumecq (IgG and IgM) antibody tests. Sunni Whitley M.D. ??[phone] 06/21/2020 ? APTT TEST: ? APTT Ratio = ? 1.06 ? Normal is less than 1.21 ? DILUTE JANEE VIPER VENOM TEST: ? Screen Ratio = ? 0.87 ? Barb l is less than 1.21 ? Specimen Anatomical Collection Method Collection Time Receive d Time (Source) Location / / Volume Laterality Blood specimen 06/20/2020 8:40 AM 8:44 (specimen) WOODS OVERSEER AM WOODS OVERSEER Mariposa Atwood MD LAB - BLOOD ORDERABLES Performing Organization Address City/[facility]/ZIP Code Phon e Number [facility] [address] Cardiolipin Josue IgG and IgM (06/20/2020 8:40 AM WOODS OVERSEER) P athologist Signature Cardiolipin <1.6 0.0 - 19.9 06/22/2020 [facility] Antibody IgG GPL-U/mL 9:49 AM [facility] Comment: Negative Cardiolipin Antibody <0.2 0.0 - 19.9 06/22/2020 9:49 AM [facility] IgM MPL-U/mL [facility] Comment: Negative Specimen Anatomical Collection Method Collection Time Receive d Time (Source) Location / / Volume Laterality Blood specimen 06/20/2020 8:40 AM 020 8:44 (specimen) WOODS OVERSEER AM WOODS OVERSEER Mariposa Atwood MD LAB - BLOOD ORDERABLES Performing Organization Address City/[facility]/ZIP Code Phon e Number [facility] [address] Beta 2 Glycoprotein Antibodies IGG IGM (06/20/2020 8:40 AM WOODS OVERSEER) Analysis Performed At Patho logist Time Signature Beta 2 1.0 <7 U/mL 06/21/2020 [facility] Glycoprotein 1 11:56 AM [facility] Antibody IgG [facility] Comment: Negative Beta 2 Glycoprotein 1 <2.9 <7 U/mL 06/21/2020 11:56 A M [facility] Antibody IgM [facility] Comment: Negative Specimen Anatomical Collection Method Collection Time Receive d Time (Source) Location / / Volume Laterality Blood specimen 06/20/2020 8:40 AM 020 8:44 (specimen) WOODS OVERSEER AM WOODS OVERSEER Mariposa Atwood MD LAB - BLOOD ORDERABLES Performing Organization Address City/State/ZIP Code Phon e Number [phone] [place] [address] ABO and Rh (06/20/2020 8:40 AM WOODS OVERSEER) [facility] Method Time Signature ABO O 06/20/2020 [facility] 10:52 AM WOODS OVERSEER [facility] RH(D) Pos [facility] Specimen 06/23/2020 06/20/2020 [facility] Expires 10:18 AM [facility] Specimen Anatomical Collection Method Collection Time Receive d Time (Source) Location / / Volume Laterality Blood specimen 06/20/2020 8:40 AM 8:44 (specimen) WOODS OVERSEER AM WOODS OVERSEER Mariposa Atwood MD LAB - BLOOD BANK TEST ORDER Performing Organization Address City/[facility]/ZIP Code Phon e Number [phone] [place] [address], [facility] VWF Sequence analysis to Versiti (order code 1395): Laboratory Miscellaneous Order (06/20/2020 8:40 AM WOODS OVERSEER) Component Value Ref Test Analysis Performed At [facility] Range Method Time Signature Miscellaneous Specimen Received, Reordered and sent to Performing laboratory - Report to follow upon 06/21/2020 [facility] Test completion. 8:40 AM [facility] Specimen Anatomical Collection Method Collection Time Receive d Time (Source) Location / / Volume Laterality Blood specimen VENOUS BLOOD / 06/20/2020 8:40 AM 06/20 9:10 (specimen) Unknown WOODS OVERSEER AM WOODS OVERSEER Mariposa Atwood MD LAB - BLOOD ORDERABLES Performing Organization Address City/State/ZIP Code Phon e Number [facility] [id number] [place] [address] [facility] VWD Diagnostic evaluation to Versiti (order code 1800): Laboratory Miscellaneous Order (06/20/2020 8:40 AM WOODS OVERSEER) Component Value Ref Test Analysis Performed At Patholo gist Range Method Time Signature Miscellaneous Specimen Received, Reordered and sent to Performing laboratory - Report to follow upon 06/21/2020 [facility] Test completion. 8:40 AM WOODS OVERSEER [facility] Specimen Anatomical Collection Method Collection Time Receive d Time (Source) Location / / Volume Laterality Blood specimen VENOUS BLOOD / 06/20/2020 8:40 AM 06/20 (specimen) Unknown WOODS OVERSEER 12:17 PM WOODS OVERSEER Mariposa Atwood MD LAB - BLOOD ORDERABLES Performing Organization Address City/[facility]/ZIP Code Phon e Number [phone] [place] [address] [facility] TSH with free T4 reflex (06/20/2020 8:40 AM WOODS OVERSEER) P athologist Signature TSH 3.01 0.40 - 4.00 06/20/2020 [facility] mU/L 9:35 AM [facility] Specimen Anatomical Collection Method Collection Time Receive d Time (Source) Location / / Volume Laterality Blood specimen 06/20/2020 8:40 AM 020 8:44 (specimen) WOODS OVERSEER AM WOODS OVERSEER Mariposa Atwood MD LAB - BLOOD ORDERABLES Performing Organization Address City/State/ZIP Code Phon e Number [phone] [place] [address] [facility] CRP, inflammation (06/20/2020 8:40 AM WOODS OVERSEER) Analysis Performed At Patho logist Time Signature CRP Inflammation <2.9 0.0 - 8.0 06/20/2020 [facility] F mg/L 9:35 AM WOODS OVERSEER [facility] Specimen Anatomical Collection Method Collection Time Receive d Time (Source) Location / / Volume Laterality Blood specimen 06/20/2020 8:40 AM 020 8:44 (specimen) WOODS OVERSEER AM WOODS OVERSEER Mariposa Atwood MD LAB - BLOOD ORDERABLES Performing Organization Address City/State/ZIP Code Phon e Number [facility] [address] [place] [address] [facility] documented in this encounter Visit Diagnoses Diagnosis Von Willebrand's disease documented in this encounter Care Teams Nursing Service Administrator Relationship Specialty Start Date End Date Clinic, [facility] PCP - General 10/15/17 08/08/[address] [address] Julian Spencer MD MD Orthopedics 03/08/[address] [place] [address] Mariposa Atwood, Assigned PCP 04/29/2005/25 [facility]0 [facility] [place], [place] [phone] Julian Spencer MD Assigned Musculoskeletal 05/27/[address] Provider [place], [place] [phone] Eugenio Finney, Assigned Pediatric 06/19/20 06/03/21 Specialist Provider [address] [facility] 96 [place], [place] [id number] documented as of this encounter
--- OUTSIDE RECORDS SUMMARY | 2022-06-18 12:01 | XMS_ITS | Encounter Summary ---
:2001 Author Organization [place] Address [address] [place] [address] Care Team Providers Name Role Phone Clinic, [facility] Primary Care Provide r Julian Spencer MD Unavailable Mariposa Atwood MD Unavailable [phone] Julian Spencer MD Unavailable Eugenio Finney MD Unavailable [phone] Encounter Details Date Type Department Care Team Description 07/05/2020 Orders Only [facility] Lab At ris k for hemorrhage [place] associated with surgery [address] Floor [place] [phone] Social History Tobacco Use Types Packs/Day Years Used Date Smoking Tobacco: Never Smokeless Tobacco: Never Sex Assigned at Date Recorded Female 12/02/2020 1:42 PM CDT COVID-19 Exposure Response Date Recorded In the last month, have you been in contact with No / Unsure 07/05/2020 8:01 AM MARKER MACHINE someone who was confirmed or suspected to have Coronavirus / COVID-19? documented as of this encounter Plan of Treatment Not on filedocumented as of this encounter Procedures Procedure Name Priority Date/Time Associated Comments Diagnosis PLATELET AGGREGATION Routine 07/05/2020 8:30 AM At risk for R esults for this W/ ADP, TBN, COL, MARKER MACHINE hemorrhage procedure are in ARACH A, RIST(3CONC) associated with the results surgery section. SEND OUTS MISC TEST Routine 06/20/2020 8:40 AM At risk for Re sults for this MARKER MACHINE hemorrhage procedure are i n associated with the results surgery section. LABORATORY Routine 06/20/2020 8:40 AM At risk for Results f or this MISCELLANEOUS ORDER MARKER MACHINE hemorrhage procedur e are in associated with the results surgery section. documented in this encounter Results Platelet Aggregation w/ ADP, TBN, COL, ARACH A, RIST(3conc) (07/05/2020 8:30 AM MARKER MACHINE) [facility] Method Time Signature ADP See table 07/07/2020 [facility] below 7:12 AM [facility] Thrombin See table 07/07/2020 [facility] 7:12 AM [facility] Epinephrine See table 07/07/2020 [facility] 7:12 AM [facility] Collagen See table 07/07/2020 [facility] 7:12 AM [facility] Arachadonic Acid See table 07/07/2020 [facility] F below 7:12 AM [facility] Comment: (Note) Abnormal platelet aggregation study. Max [...] and electron microscopy. ? Sunni Whitley M.D. [phone] ? 07/05/2020 ? ATP RELEASE: ? ATP [...] 63% Ristocetin-4 Conc (Note) 07/07/2020 7:12 AM MARKER MACHINE [facility] Comment: See full platelet aggregation comments. ? Sunni Whitley M.D. [phone] ? 07/05/2020 ? RISTOCETIN: Concentration ?Primary Agg [...] specimen 07/05/2020 8:30 AM 020 8:52 (specimen) MARKER MACHINE AM MARKER MACHINE Mariposa Atwood MD LAB - BLOOD ORDERABLES Performing Organization Address City/State/ZIP Code Phon e Number [facility] [address] [place] [address] [facility] Send outs misc test (06/20/2020 8:40 AM MARKER MACHINE) Analysis Performed At Patho logist Time Signature Lab Scanned SEND OUTS MISYS Result MISC TEST-Scann ed Specimen Anatomical Collection Method Collection Time Receive d Time (Source) Location / / Volume Laterality 06/20/2020 8:40 AM 0 8:52 MARKER MACHINE AM MARKER MACHINE Mariposa Atwood MD LAB - BLOOD ORDERABLES Performing Organization Address City/State/ZIP Code Phon e Number [facility] Fibrinolytic Disorder Panel (lab order 4860): Laboratory Miscellaneous Order (06/20/2020 8:40 AM MARKER MACHINE) Component Value Ref Test Analysis Performed At [facility] gist Range Method Time Signature Miscellaneous Specimen Received, Reordered and sent to Performing laboratory - Report to follow upon 07/05/2020 [facility] Test completion. 11:25 AM [facility] [place] Specimen Anatomical Collection Method Collection Time Receive d Time (Source) Location / / Volume Laterality Blood specimen VENOUS BLOOD / 06/20/2020 8:40 AM 07/05 8:52 (specimen) Unknown MARKER MACHINE AM MARKER MACHINE Mariposa Atwood MD LAB - BLOOD ORDERABLES Performing Organization Address City/State/ZIP Code Phon e Number [address] [address] [facility] documented in this encounter Visit Diagnoses Diagnosis At risk for hemorrhage associated with s urgery documented in this encounter Care Teams Service Desk Agent Relationship Specialty Start Date End Date [facility], [facility] PCP - General 10/15/17 08/08/20 [employer] [address] [place] [address] Julian Spencer MD MD Orthopedics 03/08/[address] [place], [place] [address] Mariposa Atwood, Ade PCP 04/29/2005/[address] [place] [id number] Julian Spencer MD Assigned Musculoskeletal 05/27/[address] [place] [address] Eugenio Finney, Assigned Pediatric 06/19/20 06/03/21 Specialist Provider [address] [place] [address] 96 [place], [place] [phone] documented as of this encounter
--- OUTSIDE RECORDS SUMMARY | 2022-06-18 12:01 | XMS_ITS | Encounter Summary ---
:2001 Author Organization [place] Address [address] [place] [address] Care Team Providers Name Role Phone Clinic, [facility] Primary Care Provide r Julian Spencer MD Unavailable Mariposa Atwood MD Unavailable [phone] Julian Spencer MD Unavailable Eugenio Finney MD Unavailable [phone] Encounter Details Date Type Department Care Team Description 07/21/2020 [facility] [place] [phone] Social History Tobacco Use Types Packs/Day Years Used Date Smoking Tobacco: Never Smokeless Tobacco: Never Sex Assigned at Date Recorded Female 12/02/2020 1:42 PM CDT COVID-19 Exposure Response Date Recorded In the last month, have you been in contact with No / Unsure 07/21/2020 2:20 PM CLINICAL APPLICATIONS SPECIALIST someone who was confirmed or suspected to have Coronavirus / COVID-19? documented as of this encounter Plan of Treatment Not on filedocumented as of this encounter Procedures Procedure Name Priority Date/Time Associated Diagnosis Comme nts ABO/RH TYPE AND Routine 07/21/2020 4:33 PM Transitional verteb ra Results for this SCREEN CLINICAL APPLICATIONS SPECIALIST procedure are i n the results section. documented in this encounter Results ABO/Rh type and screen (07/21/2020 4:33 PM CLINICAL APPLICATIONS SPECIALIST) [facility] gist Method Time Signature ABO O 07/21/2020 [facility] 8:59 PM CLINICAL APPLICATIONS SPECIALIST [facility] RH(D) Pos [facility] Antibody Neg 07/21/2020 [facility] Screen 8:59 PM CLINICAL APPLICATIONS SPECIALIST [facility] Test Valid [facility] 07/21/2020 [facility] 6:00 PM CLINICAL APPLICATIONS SPECIALIST [facility] w Hospital Specimen 2020 07/21/2020 [facility] Expires 6:00 PM CLINICAL APPLICATIONS SPECIALIST 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 [address] [place], [place] [phone] documented as of this encounter
--- OUTSIDE RECORDS SUMMARY | 2022-06-18 12:01 | XMS_ITS | Encounter Summary ---
:2001 Author Organization [place] Address [address] [place] [address] Care Team Providers Name Role Phone [facility], [facility] Primary Care Provide r Julian Spencer MD Unavailable Mariposa Atwood MD Unavailable [phone] Julian Spencer MD Unavailable Eugenio Finney MD Unavailable [phone] Encounter Details Date Type Department Care Team Description 07/21/2020 Travel Social History Tobacco Use Types Packs/Day Years Used Date Smoking Tobacco: Never Smokeless Tobacco: Never Sex Assigned at Date Recorded Female 12/02/2020 1:42 PM CDT COVID-19 Exposure Response Date Recorded In the last month, have you been in contact with No / Unsure 07/21/2020 2:20 PM PARIMUTUEL TICKET CHECKER someone who was confirmed or suspected to have Coronavirus / COVID-19? documented as of this encounter Plan of Treatment Not on filedocumented as of this encounter Visit Diagnoses Not on filedocumented in this encounter Care Teams Wire Brusher Relationship Specialty Start Date End Date [facility], [facility] PCP - General 10/15/17 08/08/[address] [address] Julian Spencer MD MD Orthopedics 03/08/[address] [place], [place] [address] Mariposa Atwood, Assigned PCP 04/29/2005/25 [address] [facility] [place] [place] [phone] Julian Spencer MD Assigned Musculoskeletal 05/27/[address] Provider [place], [place] [phone] Eugenio Finney, Assigned Pediatric 06/19/20 06/03/21 Specialist Provider [address] [facility] [address] [place], [place] [address] documented as of this encounter
--- OUTSIDE RECORDS SUMMARY | 2022-06-18 12:01 | XMS_ITS | Encounter Summary ---
:2001 Author Organization [facility] Address [address] [place] [address] Care Team Providers Name Role Phone [facility], [facility] Primary Care Provide r Julian Spencer MD Unavailable Mariposa Atwood MD Unavailable [phone] Julian Spencer MD Unavailable Eugenio Finney MD Unavailable [phone] Reason for Referral Diagnostic Imaging XR (Routine) - Closed Specialty Diagnoses / Procedures Referred By Contact Refer red To Contact Diagnoses Transitional vertebra Julian Spencer MD Procedures XR Pelvis G/E [address] [place], [place] [address] Referral ID Status Reason Start Date Expiration Date Visits Requ ested Visits Authorized [id number] Closed 07/21/2020 07/21/2021 1 1 HOSTLER Reason for Visit Reason Comments RECHECK re-discuss hematology consu lt and surgery for scoli Encounter Details Date Type Department Care Team Description 07/21/2020 Office Visit [facility] Julian Phipps al vertebra [facility] MD Darell (Primary Dx) [place] [address] [facility] [address] [place] [address] [phone] Social History Tobacco Use Types Packs/Day Years Used Date Smoking Tobacco: Never Smokeless Tobacco: Never Sex Assigned at Date Recorded Female 12/02/2020 1:42 PM CDT COVID-19 Exposure Response Date Recorded In the last month, have you been in contact with No / Unsure 07/21/2020 2:20 PM CAR HOSTLER someone who was confirmed or suspected to have Coronavirus / COVID-19? documented as of this encounter Last Filed Vital Signs Vital Sign Reading Time Taken Comments Blood Pressure - - Pulse - - Temperature - - Respiratory Rate - - Oxygen Saturation - - Inhaled Oxygen Concentration - - Weight 54.3 kg (119 lb 9.6 oz) 07/21/2020 3:00 PM CAR HOSTLER Height 161 cm (5' 3.39) 07/21/2020 3:00 PM CAR HOSTLER Body Mass Index 20.93 07/21/2020 3:00 PM CAR HOSTLER Body Mass Index Percentile 42.08 % 07/21/2020 3:00 PM CS T Growth Chart: [facility] (Girls, 2-20 Years) documented in this encounter Progress Notes Julian Spencer MD - 07/21/2020 3:00 PM CST HISTORY OF PRESENT ILLNESS: Dakota returns today for a discussion about her upcoming surgery. 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 She was originally labeled as Von Willebrand's. She does not have Von Willebrand's. She does appear to potentially have [place] platelet disorder. She has the genetic test pending for that which should be back on . The treatment for this is tranexamic acid. Dr. Atwood has outlined the plan. Dr. Cruz will be the manager business information on service when she has her surgery. Dr. Cruz will be part of the OR team to help manage her intraoperative blood strategy. She will get the high dose TXA 30 mg/kg as a bolus one time, followed by 10 mg/kg per hour as a drip. We will remove her spinal instrumentation and close her wound in the usual fashion and then she will go to the Pediatric ICU after surgery. There the Hematology Service will direct her management. Normally, this would be an outpatient procedure, but with this bleeding problem, she will need to be watched to ensure she does not develop late postoperative bleeding. I expect that she will continue her IV TXA until she is able to take oral medications. At that point, she should be able to take the TXA in an oral fashion. Again, this will be monitored by Hematology.Of note, she is noting some occasional low back pain today. She has a transitional lumbosacral vertebra and we are better imaging that today. I do not plan to do anything about that at this time. Our plan is to remove the instrumentation as we discussed, get her through this and see how she is doing and then we will deal with anything that needs to be done going forward. So in summary, she does not have von Willebrand's. She has symptomatic retained spinal instrumentation for her scoliosis surgery and she appears to have a transitional vertebra. Our best estimate is that her underlying bleeding disorder is [place] platelet disorder. I reviewed this with Dakota and her mom. I looked at her incision. She has a well-healed midline incision, and we will plan to do this in our usual fashion. Julian Spencer MD HOSTLER documented in this encounter Nursing Notes Reyna Chávez LPN - 07/21/2020 3:00 PM CST Reason For Visit: Chief Complaint Patient presents with ??? RECHECK re-discuss hematology consult and surgery for scoli Primary MD: Clinic, [facility] Ref. MD: est Technology Services Manager?No Occupation??Student. ?? Date of injury:??No Type of injury:??No. ?? Date of surgery:??Several surgeries Type of surgery:??Fusions and hardware removal, refused last February ?? Smoker:??No Request smoking cessation information:??No Ht 1.61 m (5' 3.39) Wt 54.3 kg (119 lb 9.6 oz) BMI 20.93 kg/m?? Pain Assessment Patient Currently in Pain: Yes 0-10 Pain Scale: 9 Primary Pain Location: Back SRS: 49.3 % Oswestry (LOKESH) Questionnaire OSWESTRY DISABILITY INDEX 07/21/2020 Count 9 Sum 29 Oswestry Score (%) 64.44 Some recent data might be hidden Visual Analog Pain Scale Back Pain Scale 0-10: 9 Right leg pain: 0 Left leg pain: [...] data might be hidden Reyna Chávez LPN HOSTLER documented in this encounter Plan of Treatment Not on filedocumented as of this encounter Procedures Procedure Name Priority Date/Time Associated Diagnosis Comme nts XR PELVIS G/E 3 Routine 07/21/2020 3:49 PM Transitional verteb ra Results for this VIEWS CAR HOSTLER procedure are i n the results section. documented in this encounter Results ABO/Rh type and screen (07/21/2020 4:33 PM CAR HOSTLER) [facility] gist Method Time Signature ABO O 07/21/2020 [facility] 8:59 PM CAR [facility]ER [facility] RH(D) Pos [facility] Antibody Neg 07/21/2020 [facility] Screen 8:59 PM CAR HOSTLER [facility] Test Valid [facility] 07/21/2020 [facility] [place] 6:00 PM CAR HOSTLER [facility] Specimen 2020 07/21/2020 [facility] Expires 6:00 PM CAR HOSTLER [facility] Specimen Anatomical Collection Method Collection Time Receive d Time (Source) Location / / Volume Laterality Blood specimen 07/21/2020 4:33 PM 020 4:35 (specimen) CAR HOSTLER PM CAR HOSTLER Julian Spencer MD LAB - BLOOD BANK TEST ORDER Performing Organization Address City/State/ZIP Code Phon e Number [facility] [address] [place] [address] [facility] XR Pelvis G/E 3 Views (07/21/2020 3:49 PM CAR HOSTLER) Anatomical Region Laterality Modality Abdomen/Pelvis Computed Radiography Specimen (Source) Anatomical Location Collection Method / Collectio n Time Received Time / Laterality Volume Impressions 07/21/2020 4:13 PM CAR HOSTLER Impression: 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 WILNER HERRERA Narrative 07/21/2020 4:13 PM CAR HOSTLER 1 view pelvis radiograph(s) 07/21/2020 4:10 PM [...] this encounter Visit Diagnoses Diagnosis Transitional vertebra - Primary Other congenital anomaly of spine documented in this encounter Care Teams Carton Filler Relationship Specialty Start Date End Date [facility] PCP - General 10/15/17 08/08/[address] [address] Julian Spencer MD MD Orthopedics 03/08/[address] [place] [address] [id number] Mariposa Atwood, Assigned PCP 04/29/2005/25 [facility] [place], [place] [address] Julian Spencer MD Assigned Musculoskeletal 05/27/[address] [place] [address] Eugenio Finney, Assigned Pediatric 06/19/20 06/03/21 Specialist Provider [address] [place] [address] 96 [place], [place] [id number] documented as of this encounter
--- OUTSIDE RECORDS SUMMARY | 2022-06-18 12:01 | XMS_ITS | Encounter Summary ---
:2001 Author Organization [facility] Address [address] [place] [address] Care Team Providers Name Role Phone [facility], [facility] Primary Care Provide r Julian Spencer MD Unavailable Mariposa Atwood MD Unavailable [phone] Julian Spencer MD Unavailable Eugenio Finney MD Unavailable [phone] Encounter Details Date Type Department Care Team Description 08/03/2020 Travel Social History Tobacco Use Types Packs/Day Years Used Date Smoking Tobacco: Never Smokeless Tobacco: Never Alcohol Use Standard Drinks/Week Comments Not Currently 0 (1 standard drink = 0.6 oz pure alcoho l) Sex Assigned at Date Recorded Female 12/02/2020 1:42 PM CDT COVID-19 Exposure Response Date Recorded In the last month, have you been in contact with No / Unsure 08/03/2020 1:56 PM POPULATION HEALTH MANAGER someone who was confirmed or suspected to have Coronavirus / COVID-19? documented as of this encounter Plan of Treatment Not on filedocumented as of this encounter Visit Diagnoses Not on filedocumented in this encounter Care Teams Nike Athlete Relationship Specialty Start Date End Date [facility] PCP - General 10/15/17 08/08/[address] [address] Julian Spencer MD MD Orthopedics 8/4/[address] [place], [place] [phone] Mariposa Atwood, Assigned PCP 04/29/2005/25 [facility] [place], [place] [phone] Julian Specner MD Assigned Musculoskeletal 05/27/[address] Provider [place], [place] [phone] Eugenio Finney, Assigned Pediatric 06/19/20 06/03/21 Specialist Provider [address] [facility] [address] [place], [place] [address] documented as of this encounter
--- OUTSIDE RECORDS SUMMARY | 2022-06-18 12:02 | XMS_ITS | Encounter Summary ---
:2001 Author Organization [facility] Address [address] [facility] [place] [address] Care Team Providers Name Role Phone Clinic, [facility] Primary Care Provide r Julian Spencer MD Unavailable Mariposa Atwood MD Unavailable [phone] Encounter Details Date Type Department Care Team Description 05/10/2020 Telephone [facility] Perez Finney, [place] [address] [place] [address] [facility] [address] [place] [address] [place] [phone] Social History Tobacco Use Types Packs/Day Years Used Date Smoking Tobacco: Never Assessed Sex Assigned at Date Recorded Female 12/02/2020 1:42 PM CDT COVID-19 Exposure Response Date Recorded In the last month, have you been in contact with No / Unsure 05/05/2020 8:07 AM CDT someone who was confirmed or suspected to have Coronavirus / COVID-19? documented as of this encounter Miscellaneous Notes Telephone Encounter - [place] - 05/10/2020 10:57 AM CDT Spoke with mom about scheduling. I will talk with Leilani and call mom back to schedule. documented in this encounter Plan of Treatment Not on filedocumented as of this encounter Visit Diagnoses Not on filedocumented in this encounter Care Teams Sales Enablement Lead Relationship Specialty Start Date End Date Clinic, [facility] PCP - General 10/15/17 08/08/201999 [place] [address] Julian Spencer MD MD Orthopedics 03/08/[address] [facility] [address] [place], [place] [phone] Mariposa Atwood MD Assigned PCP 04/29/20 11/12/20 [facility] [place], [place] [phone] documented as of this encounter
--- OUTSIDE RECORDS SUMMARY | 2022-06-18 12:02 | XMS_ITS | Encounter Summary ---
:2001 Author Organization [facility] Address [address] [place] [address] Care Team Providers Name Role Phone Unavailable Primary Care Provider Unavailable Encounter Details Date Type Department Care Team Description 01/28/2009 Results Only [facility] Jerad Hooks MD [facility] GI Results [address] [facility] [address] [place] [address] (Wo rk) Social History Tobacco Use Types Packs/Day Years Used Date Smoking Tobacco: Never Assessed Sex Assigned at Date Recorded Female 12/02/2020 1:42 PM CDT documented as of this encounter Plan of Treatment Not on filedocumented as of this encounter Procedures Procedure Name Priority Date/Time Associated Diagnosis Comme nts VOIDING Routine 01/28/2009 9:55 AM Results f or this CYSTOGRAM CDT procedure are i n the results section. US ABDOMEN Routine 01/28/2009 9:03 AM Results for this COMPLETE CDT procedure are i n the results section. documented in this encounter Results X-RAY URETHROCYSTOGRAM+VOIDING (01/28/2009 9:55 AM CDT) Anatomical Region Laterality Modality Other Specimen (Source) Anatomical Collection Method Collection Time Re ceived Time Location / / Volume Laterality 01/28/2009 9:55 AM CDT Impressions 01/28/2009 2:56 PM CDT Voiding cystourethrogram ?? 01/28/2009 HISTORY: ??Abdominal pain, evaluate for reflux COMPARISON: No comparison. Fluoroscopy time: 0.5 minutes FINDINGS: The drill runner helper film demonstrates a nonobstructive bowel gas pattern. There is no abnormal mass or ca lcification. Stool is seen in throughout the colon. No bony abnormalit y is identified. ??After sterile bladder catheterization with an 8 Japanese feeding tube, a voiding cystourethrogram was performed w ith 240 cc Conray 43. A single cycle of filling and voiding was observe d. The bladder is normal in size, shape, position, and function. The re is no reflux. The urethra is normal. IMPRESSION: ?Normal voiding cystoure throgram. I have personally reviewed the image and initial interpretation and agree with the findings. Jerad Hooks MD [facility] IMAGING STUDIES SONO ABDOMEN COMPLETE (01/28/2009 9:03 AM CDT) Anatomical Region Laterality Modality Other Specimen (Source) Anatomical Collection Method Collection Time Re ceived Time Location / / Volume Laterality 01/28/2009 9:03 AM CDT Impressions 01/28/2009 2:56 PM CDT Abdominal ultrasound, ??Jan 28, 2009 9:0 3:00 AM Indication: Abdominal pain/reflux. Comparison: None Findings: The liver is of normal echogenicity, wit hout focal masses or intrahepatic biliary dilatation. The chelo er measures 13.7 cm in craniocaudal dimension. The gallbladder is unremarkable in appea vinay, without stones, wall thickening or pericholecystic fluid. The common bile duct measures 3 mm in diameter. The pancreas is normal in appearance. The right kidney measures 9.2 cm in melissa th. There is no hydronephrosis. The cortex is within nor mal limits for thickness and echogenicity. The left kidney measures 9.0 cm in lengt h. There is no hydronephrosis. The cortex is within normal limits for t hickness and echogenicity. The spleen measures 8.4 cm in length. The aorta and inferior vena cava are unr emarkable in appearance. There is no free fluid within the abdome n. Impression: Normal abdominal ultrasound. I have personally reviewed the image and initial interpretation and agree with the findings. Jerad Hooks MD SPECIAL IMAGING STUDIES documented in this encounter Visit Diagnoses Not on filedocumented in this encounter
--- OUTSIDE RECORDS SUMMARY | 2022-06-18 12:02 | XMS_ITS | Encounter Summary ---
:2001 Author Organization [facility] Address [address] [place] [address] Care Team Providers Name Role Phone Unavailable Primary Care Provider Unavailable Encounter Details Date Type Department Care Team Description 10/16/2010 Results Only [facility] Gracie Najera MD [facility] [place] [address] Social History Tobacco Use Types Packs/Day Years Used Date Smoking Tobacco: Never Assessed Sex Assigned at Date Recorded Female 12/02/2020 1:42 PM CDT documented as of this encounter Plan of Treatment Not on filedocumented as of this encounter Procedures Procedure Name Priority Date/Time Associated Diagnosis Comme nts XR FEMUR RIGHT 2 Routine 10/16/2010 5:50 PM Resul ts for this VIEWS CDT procedure are i n the results section. XR FOOT RIGHT G/E 3 Routine 10/16/2010 5:49 PM Re sults for this VIEWS CDT procedure are i n the results section. XR TIBIA AND FIBULA Routine 10/16/2010 5:48 PM Re sults for this RIGHT 2 VIEWS CDT procedure are in the results section. documented in this encounter Results X-ray rt femur (10/16/2010 5:50 PM CDT) Anatomical Region Laterality Modality Hip, Thigh, Knee Right Other Specimen (Source) Anatomical Collection Method Collection Time Re ceived Time Location / / Volume Laterality 10/16/2010 5:50 PM CDT Impressions 10/17/2010 11:37 AM CDT RIGHT HIP AND FEMUR, FOUR VIEWS October 5:50:00 PM HISTORY: Leg pain. COMPARISON: None. FINDINGS: AP and frogleg views of the hi p and AP and lateral views of the femur show no abnormality. There are no focal bone lesions and the soft tissues look unremarkable. IMPRESSION: Negative. Axel MCCLURE DIAGNOST[facility] IMAGING ORDER DANO X-ray rt Foot G/E 3 vws* (10/16/2010 5:49 PM CDT) Anatomical Region Laterality Modality Foot, Ankle Right Other Specimen (Source) Anatomical Collection Method Collection Time Re ceived Time Location / / Volume Laterality 10/16/2010 5:49 PM CDT Impressions 10/17/2010 11:37 AM CDT RIGHT FOOT, THREE VIEWS October 16, 2010 5 :49:00 PM HISTORY: Leg pain. COMPARISON: None. FINDINGS: Three-view examination of the right foot shows no osseous or soft tissue abnormality. IMPRESSION: Negative. Axel LEVY DIAGNOSTIC IMAGING ORDER DANO X-ray rt lower leg (10/16/2010 5:48 PM CDT) Anatomical Region Laterality Modality Leg, Knee, Ankle Right Other Specimen (Source) Anatomical Collection Method Collection Time Re ceived Time Location / / Volume Laterality 10/16/2010 5:48 PM CDT Impressions 10/17/2010 11:37 AM CDT RIGHT TIBIA/FIBULA, TWO VIEWS October 16, 2010 5:48:00 PM HISTORY: Leg pain. COMPARISON: None. FINDINGS: AP and lateral views of the ti linda and fibula show no osseous or soft tissue abnormality. IMPRESSION: Negative. Axel MCCLURE DIAGNOSTIC IMAGING ORDER DANO documented in this encounter Visit Diagnoses Not on filedocumented in this encounter
--- OUTSIDE RECORDS SUMMARY | 2022-06-18 12:02 | XMS_ITS | Encounter Summary ---
:2001 Author Organization [facility] Address [address] [place] [address] Care Team Providers Name Role Phone [facility] Primary Care Provide r Julian Spencer MD Unavailable Mariposa Atwood MD Unavailable [phone] Encounter Details Date Type Department Care Team Description 05/05/2020 Travel Social History Tobacco Use Types Packs/Day [...] on filedocumented in this encounter Care Teams Partner Manager Relationship Specialty Start Date End Date [facility] PCP - General 10/15/17 08/08/201999 [place] [address] Julian Spencer MD MD Orthopedics 03/08/[address] [place], [place] [address] Mariposa Atwood MD Assigned PCP 04/29/20 11/12/20 [address] [place] [address] documented as of this encounter
--- OUTSIDE RECORDS SUMMARY | 2022-06-18 12:02 | XMS_ITS | Encounter Summary ---
:2001 Author Organization [facility] Address [address] [place] [address] Care Team Providers Name Role Phone System, Provider Not In Primary Care Provider Unavailable Encounter Details Date Type Department Care Team Description 08/14/2012 Hospital Encounter M [facility] Mynor Humphries, [facility] MD CARLENE [address] [facility] [place] [address] [place] [id number] [place], [place] [phone] [address] (Wo rk) Social History Tobacco Use Types Packs/Day Years Used Date Smoking Tobacco: Never Assessed Sex Assigned at Date Recorded Female 12/02/2020 1:42 PM CDT documented as of this encounter Medications at Time of Discharge Medication Sig Dispensed Refills Start Date End Date amoxicillin-clavulanate 1 1/2 tsp po bid 150 mL 0 201108/03/2020 (AUGMENTIN-ES) 600-42.9 MG/5ML suspensionIndications: Immunity deficiency documented as of this encounter Progress Notes Mynor Humphries MD, MD - 08/19/2012 9:14 PM CST RAL PASSENGER AGENT documented in this encounter Plan of Treatment Not on filedocumented as of this encounter Procedures Procedure Name Priority Date/Time Associated Comments Diagnosis FECAL FAT Routine 08/14/2012 5:46 PM Results f or this QUANTITATIVE TIMED GENERAL PASSENGER AGENT procedure are in the results section. documented in this encounter Results Fat stool quantitative (08/14/2012 5:46 PM GENERAL PASSENGER AGENT) Component Value Ref Test Analysis Performed At [facility] Range Method Time Signature Fecal Fat SEE NOTE 08/19/2012 12:07 PM [facility] [place] Quantitative (Note) [facility] ? [place] ?Expected Test ? Result ? LO ??Units ?? Values ------ Fat, F Total Weight ? 34 ? g Duration ? 24 ? h ?? More reliable results can be obtained from a 48 or ?? 72 hour collection. Total Fat/24 Hr ?<1 ? g/24 h ?? -- REFERENCE VALUE -- ?? Reference values ?? have not been ?? established for ?? patients who are ?? less than 18 ?? years of age. ?? Test Performed by: ?? [facility] ?? [address] [place] [id number] ?? Senior Master Scheduler: Jere Canales III, M.D. Specimen Anatomical Collection Method Collection Time Receive d Time (Source) Location / / Volume Laterality 08/14/2012 5:46 PM 3 GENERAL PASSENGER AGENT 12:12 PM GENERAL PASSENGER AGENT Mynor Humphries MD, MD LAB - STOOLS ORDERABLES Performing Organization Address City/State/ZIP Code Phon e Number [facility] [address] [place], [place] [address] [facility] documented in this encounter Visit Diagnoses Not on filedocumented in this encounter Care Teams Websphere Administrator Relationship Specialty Start Date End Date System, Provider Not In PCP - General 06/20/11/09/18 documented as of this encounter
--- OUTSIDE RECORDS SUMMARY | 2022-06-18 12:02 | XMS_ITS | Encounter Summary ---
:2001 Author Organization [facility] Address [address] [place] [address] Care Team Providers Name Role Phone System, Provider Not In Primary Care Provider Unavailable Encounter Details Date Type Department Care Team Description 11/25/2013 Hospital Encounter [facility] Doctor, Cl, Diarrhea (Primary [facility] Mynor Humphries MD, MD [place] [facility] [address] [place], [place] [phone] Dx) [address] [place] [address] Social History Tobacco Use Types Packs/Day Years Used Date Smoking Tobacco: Never Assessed Sex Assigned at Date Recorded Female 12/02/2020 1:42 PM CDT documented as of this encounter Medications at Time of Discharge Medication Sig Dispensed Refills Start Date End Date amoxicillin-clavulanate 1 1/ tsp po bid 150 mL 0 201108/03/2020 (AUGMENTIN-ES) 600-42.9 MG/5ML suspensionIndications: Immunity deficiency documented as of this encounter Plan of Treatment Not on filedocumented as of this encounter Visit Diagnoses Diagnosis Diarrhea - Primary documented in this encounter Care Teams Biological Chemist Relationship Specialty Start Date End Date System, Provider Not In PCP - General Clinic 11/25/13 04/04/17 documented as of this encounter
--- OUTSIDE RECORDS SUMMARY | 2022-06-18 12:02 | XMS_ITS | Encounter Summary ---
:2001 Author Organization [place] Address [address] [place] [address] Care Team Providers Name Role Phone Clinic, [facility] Primary Care Provide r Julian Spencer MD Unavailable Mariposa Atwood MD Unavailable Reason for Visit Reason Comments New Patient Patient being seen today for Von Willebrands and surgery Clearance Consultation (Routine) - Closed Specialty Diagnoses / Procedures Referred By Contact Refer red To Contact Diagnoses Other secondary scoliosis, thoracolumbar region Tethered cord (H) History of fusion of spine for scoliosis Acquired von Willebrand disease Julian Spencer MD [address] [place], [place] [address] Referral ID Status Reason Start Date Expiration Date Visits Requ ested Visits Authorized [id number] Closed 05/05/2020 05/05/2021 1 1 Encounter Details Date Type Department Care Team Description 05/19/2020 Virtual Visit [facility] Mariposa Atwood's [facility] Pediatric MD Nettie disease (H) (Primary Specialty Clinic [address] [place] [address] Dx) [address] [place] [address] [address] [place] [address] Social History Tobacco Use Types [...] encounter Progress Notes Mariposa Atwood MD - 05/19/2020 9:00 AM CDT Pediatric Hematology Initial Video Consultation Dakota Casiano is a 19 year old [...] given verbal consent for Video visit? yes Video-Visit Details Type of service: Video Visit Video Start Time: 8:54 Video End Time: 9:31 Originating Location (pt. Location): home Distant Location (provider location): [facility] Platform used for Video Visit: Infomous CC: Referred by Dr. Spencer for consultation regarding von Willebrand's management for spinal surgery HISTORY OF PRESENT ILLNESS: The patient presents today for consultation regarding von Willebrand management for her upcoming surgery. From her records, she has ongoing pain in her spine after a posterior spinal fusion for scoliosis. Her scoliosis was initially seen and evaluated by Dr. Cobos at [place]. At her preoperative MRI a tethered cord was found, and initially a tethered cord release was performed without difficulty. She thensubsequently had the posterior spinal fusion done by Dr. Cobos on 01/24/2016 utilizing Medtronic Solera instrumentation (per Dr. Spencer). With this operation, mother says she lost a lot of blood and got FFP and RBCs transfused. She had some testing doing in the [facility] ICU and [facility] which mother says showed vWD 2 and a letter. She had persistent pain since the surgery and mom says she has had 4 hardware removals with Amicar coverage. In 2018 she had a bone graft (I think this is the procedure in Dr. Spencer's note that is the revision of her posteriorspinal fusion from T3 to L4 in 02/2019) again with Amicar but for 24 hour infusion pre-op and then factor supplementation. She had recurrent pain after her operation and went to see Dr. Muro at [facility]. She was thought to be having pain from her CrossLink and Dr. Muro removed her CrossLink.Mother says she was again :covered with Amicar IV for 24 hours pre-operatively and with concentrates again (I think probably Humate P). 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 She says additional evaluation was done by Dr. Santacruz in hematology at [facility]. Dakota does have other bleeding issues. SHe has been on OCP for menorrhagia since 15 yo which has completely stopped her cycles. Paper cuts and scratches bleed forever. SHe had knots with many of her childhood vaccines. Her gums bleed with flossing. She occasionally has had bloody stools but has not had nosebleeds. 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 Previously played Lacrosse. FHx: Significant for mother with mild scoliosis per records. Mother hemorrhaged with her hysterectomy but has not been tested for vWD.. Mother's sister did not know she had vWD until she was hospitalized in a blood bath and was diagnosed at the [facility]. Review of records from [facility] are minimally conrtibutory as there is no data on dosing, duration, route, except for oral Amicar at discharge. SPECIFICALLY - I DO NOT HAVE A DIAGNOSIS IN WRITING Video PE: GENERAL: Healthy, alert and no distress EYES: Eyes grossly normal to inspection. No obvious discharge or erythema, or scleral/conjunctival abnormalities. RESP: No audible wheeze, cough, or visible cyanosis during conversation. No visible retractions or increased work of breathing. SKIN: Limited visible skin clear. NEURO: Cranial nerves grossly intact. Mentation and speech appropriate for age. PSYCH: Mentation appears normal, affect normal/bright, judgement and insight intact, normal speech and appearance well-groomed. A/P: Dr. Spencer discussed removal of Dakota's remaining hardware, close monitoring for recurrent scoliosis and subsequent intervention if needed with her and an earlier visit. We discussed providing her prior management with inpatient Amicar and Humate P prior to and following her operations. I DO NOT HAVE those doses, durations or route of administration for medications to control her vWD. I would plan to follow the same strategy, but we do not have sufficient detail at this time. Despite attempts toobtain records, we will again specify needing to know details of Dakota's management strategy and details of her diagnostic evaluations. I will email Mom the HIM release for both [facility] and [facility] Vincent have her permission to christelle Dr. Amin and Dr. Spears. We WILL need lab studies here in advance of her procedure to know where her levels are with our lab norms. Mariposa Atwood MD, MS 37 minute visit, 15 minutes reviewing records, 15 minutes coordinating HIM releases documented in this encounter Plan of Treatment Scheduled Referrals Name Type Priority Associated Diagnoses Order S chedule ONC/HEME PEDS Referral Routine Other secondary scoliosis, Ordered: 05/05/2020 REFERRAL thoracolumbar re gion Tethered cord (H ) History of fusion of spine for scoliosis Acquired von Willebrand disease (H) documented as of this encounter Visit Diagnoses Diagnosis Von Willebrand's disease - Primary documented in this encounter Care Teams Director Internal Audit Relationship Specialty Start Date End Date Clinic, [facility] PCP - General 10/15/17 08/08/201999 [place] [address] Julian Spencer MD MD Orthopedics 03/08/[address] [place], [place] [phone] Mariposa Atwood MD Assigned PCP 04/29/20 11/12/20 [address] [place], [place] [phone] documented as of this encounter
--- OUTSIDE RECORDS SUMMARY | 2022-06-18 12:02 | XMS_ITS | Encounter Summary ---
:2001 Author Organization [place] Address [address] [place] [address]. [place] [address] Care Team Providers Name Role Phone Clinic, [facility] Primary Care Provide r Julian Spencer MD Unavailable Mariposa Atwood MD Unavailable [phone] Reason for Visit Reason Onset Date Comments Appointment 05/05/2020 Encounter Details Date Type Department Care Team Description 05/05/2020 Telephone [facility] Explorer No Ref-Primary , Appointment Pediatric Specialty Clinic Physician [address] [place] [address] Explorer Clinic, [address], [place], [place] [address] Social History Tobacco Use Types Packs/Day [...] Notes Telephone Encounter - [place] Ames - 05/16/2020 8:42 AM CDT Video appointment scheduled. Telephone Encounter - Gómez Mueller - 05/05/2020 4:15 PM CDT Callers Name: Tiffany Relation to Patient (if other than self): mom Callers Is an Drop Hammer Set Up Operator Needed: no If yes, Which Language: Best time of day to call: any Is it ok to leave a detailed voicemail on this number: yes Was Registration completed / verified with family: yes If no - Why?: Name of Specialty or Provider being requested: Neurosurgery Diagnosis and/or Symptoms (specifics): Other secondary scoliosis, thoracolumbar region, Tethered cord (H), History of fusion of spine for scoliosis, Acquired von Willebrand disease Referring Provider: Julian Spencer MD in [facility] Additional Information pertaining to the call: documented in this encounter Plan of Treatment Not on filedocumented as of this encounter Visit Diagnoses Not on filedocumented in this encounter Care Teams Laser Systems Engineer Relationship Specialty Start Date End Date Clinic, [facility] PCP - General 10/15/17 08/08/201999 [place] [address] Julian Spencer MD MD Orthopedics 03/08/[address] [place] [phone] Mariposa Atwood MD Assigned PCP 04/29/20 11/12/[address] [place] [phone] documented as of this encounter
--- OUTSIDE RECORDS SUMMARY | 2022-06-18 12:02 | XMS_ITS | Encounter Summary ---
:2001 Author Organization [place] Address [address] [place] [address] Care Team Providers Name Role Phone Clinic, [facility] Primary Care Provide r Julian Spencer MD Unavailable Mariposa Atwood MD Unavailable [phone] Reason for Visit Reason Onset Date Comments *-*INCOMING RECORDS*-* 05/05/2020 Encounter Details Date Type Department Care Team Description 05/05/2020 PRE VISIT Health Orthopaedic Julian Spencer *-*INCO BARRETT RECORDS*-* Clinic MD [place] [address] [place] [address] [address] [place] [address] [phone] Social History Tobacco Use Types Packs/Day Years Used Date Smoking Tobacco: Never Assessed Sex Assigned at Date Recorded Female 12/02/2020 1:42 PM CDT documented as of this encounter Miscellaneous Notes Telephone Encounter - Lynnette Boone - 03/16/2020 12:12 PM CDT DIAGNOSIS: Scoliosis, referral Dr. Mireille Muro at [facility], records there and at [place] (MRI) and Marybel lau, appt per pt APPOINTMENT DATE: 05.05.20 NOTES STATUS DETAILS OFFICE NOTE from referring provider Care Everywhere 10.14.19 [place] Muro 01.27.20 08.13.19 OFFICE NOTE from other specialist Care Everywhere 2.. Pancho [place] DISCHARGE SUMMARY from hospital Care Everywhere 09.16.19 [place] DISCHARGE REPORT from the ER Care Everywhere 10.. Ling, OPERATIVE REPORT Care Everywhere 2.. [place] MEDICATION LIST Internal EMG (for Spine) N/A IMPLANT RECORD/STICKER N/A LABS CBC/DIFF Care Everywhere CULTURES N/A INJECTIONS DONE IN RADIOLOGY N/A MRI In process 08.13.19 spine, [place] CT SCAN In process 01.27.20 Thoracic and lumber spine, [facility] 1. lumbar 1.. thoracic 1.9. spine thoracolumbar XRAYS (IMAGES & REPORTS) In process 08.13.19 spine, [place] 1. spine, [place] 10.. thoracic, 10..19 cervical, [facility] TUMOR PATHOLOGY Slides & report N/A Action 03.16.20 MJ Action Taken Requested images from [place] . Requested med recs and images from [place]. documented in this encounter Plan of Treatment Not on filedocumented as of this encounter Visit Diagnoses Not on filedocumented in this encounter Care Teams Seo Strategist Relationship Specialty Start Date End Date [facility], [facility] PCP - General 10/15/17 08/08/201999 [place] [address] Julian Spencer MD MD Orthopedics 03/08/20 [facility] [address] [place], [place] [phone] Mariposa Atwood MD Assigned PCP 04/29/20 11/12/20 [facility] [place], [place] [phone] documented as of this encounter
--- OUTSIDE RECORDS SUMMARY | 2022-06-18 12:02 | XMS_ITS | Encounter Summary ---
:2001 Author Organization [place] Address [address] [place] [address] Care Team Providers Name Role Phone Unavailable Primary Care Provider Unavailable Encounter Details Date Type Department Care Team Description 01/21/2009 Historic Results [facility] Jerad Hooks MD [facility] [address] [facility] [address] [place] [address] [address] [place] [address] (Wo rk) Social History Tobacco Use Types Packs/Day Years Used Date Smoking Tobacco: Never Assessed Sex Assigned at Date Recorded Female 12/02/2020 1:42 PM CDT documented as of this encounter Plan of Treatment Not on filedocumented as of this encounter Procedures Procedure Name Priority Date/Time Associated Comments Diagnosis DISACCHARIDASE PANEL Routine 01/21/2009 12:22 Res ults for this PM CDT procedure are i n the results section. documented in this encounter Results Disaccharidase panel (01/21/2009 12:22 PM CDT) P athologist Signature Lactase 18.5 16.5 - 32.5 MISYS uM/min/gr Prot Maltase 162.3 98.0 - 223.6 MISYS uM/min/gr Prot Palatinase 10.6 4.6 - 17.6 MISYS uM/min/gr Prot Comment: Assayed at [facility] [place] [address] (Note) The intestinal biopsy from this patient had normal disaccharidase activities. CORRECTED ON 01/26 AT 0839: PREVIOUSLY R EPORTED 10.6 Assayed at [facility] [place], [place] [address] Sucrase 60.7 29.1 - 79.9 uM/min/gr Prot MIS YS Specimen Anatomical Collection Method Collection Time Receive d Time (Source) Location / / Volume Laterality 01/21/2009 12:22 01/21/2009 PM CDT 12:32 PM CDT Jerad Hooks MD LAB - [facility] SPECIAL DIAG OR DERABLES Performing Organization Address City/State/ZIP Code Phon e Number MISYS documented in this encounter Visit Diagnoses Not on filedocumented in this encounter
--- OUTSIDE RECORDS SUMMARY | 2022-06-18 12:02 | XMS_ITS | Encounter Summary ---
:2001 Author Organization [place] Address [facility] [place] [address] Care Team Providers Name Role Phone Unavailable Primary Care Provider Unavailable Encounter Details Date Type Department Care Team Description 01/21/2009 Historical Results [facility] Champ Cruz MD [facility] [place] [address] [employer] [facility] [address] [place] [address] [address] [place] [address] (Wo rk) Social History Tobacco Use Types Packs/Day Years Used Date Smoking Tobacco: Never Assessed Sex Assigned at Date Recorded Female 12/02/2020 1:42 PM CDT documented as of this encounter Plan of Treatment Not on filedocumented as of this encounter Procedures Procedure Name Priority Date/Time Associated Diagnosis Comme [facility] HISTOPATHOLOGY Routine 01/21/2009 11:52 AM Result s for this CDT procedure are i n the results section . documented in this encounter Results Histopathology (01/21/2009 11:52 AM CDT) Component Value Ref Test Analysis Performed At [facility] Range Method Time Signature Copath Report CASE: [id number] ^ [facility] Patient Name: DAKOTA VASQUEZ MR#: [id number] Specimen #: [id number] Collected: 01/21/2009 Received: 01/21/2009 Reported: 01/24/2009 18:14 Ordering Phy(s): AGAPITO HOOKS SPECIMEN(S): A: Terminal ileum biopsy B: Colon biopsy, random C: Duodenal biopsy D: Stomach biopsy E: Esophageal biopsy FINAL DIAGNOSIS: A. ??Terminal ileum, biopsies: ? - ??Small bowel mucosa with no diagnostic alteration. B. ??Colon, random sites, biopsies: ? - ??Colonic mucosa with no diagnostic alteration. C. ??Duodenum, biopsies: ? - ??Duodenal mucosa with no diagnostic alteration. D. ??Stomach, biopsies: ? - ??Gastric antral- and mixed antral/fundic-type muco sole fragments with no diagnostic alteration. E. ??Esophagus, biopsies: ? - ??Esophageal squamous mucosa with no diagnostic alt eration. Electronically signed out by: Ignacio Gamble M.D., [facility] CLINICAL HISTORY: 8-year-old female. GROSS: Five specimens are received, each labeled with the patient's name and hospital identification number. A. ?Specimen A is designated terminal ileum. ??The specimen consists of four barros 0.2 to 0.3 cm tissue fragments. Entirel y submitted. B. ?Specimen B is designated random colon. ?? The specimen consists of eight pale barros 0.2 to 0.5 cm tissue fragments. E ntirely submitted. C. ?Specimen C is designated duode num. ??The specimen consists of two pink-barros 0.2 to 0.3 cm tissue fragments. Entirely sub mitted. D. ?Specimen D is designated stomach. ? ?The specimen consists of two barros 0.3 to 0.4 cm tissue fragments. Entirely submitte d. E. ?Specimen E is designate d esophagus. ??The specimen consists of two jauregui-white 0.3 to 0.4 cm tissue fragments. Entirely s ubmitted. Summary of Sections: A - Terminal ileum. B - Random colon. C - Duodenum. D - Stomach. E - Esophagus. (Jar 0) (Kade/libby 01/21/09) MICROSCOPIC: Performed. Greg 01/24/2009 TESTING LAB LOCATION: [facility], [address] ?? [phone] COLLECTION SITE: Client: [facility], [place] Location: U (B) Specimen Anatomical Collection Method Collection Time Receive d Time (Source) Location / / Volume Laterality 01/21/2009 11:52 01/24/2009 6:14 AM CDT PM CDT Agapito Hooks MD LAB - [facility] SPECIAL DIAG OR DERABLES Performing Organization Address City/State/ZIP Code Phon e Number [facility] documented in this encounter Visit Diagnoses Not on filedocumented in this encounter
--- OUTSIDE RECORDS SUMMARY | 2022-06-18 12:02 | XMS_ITS | Encounter Summary ---
:2001 Author Organization [place] Address Counts include 234 beds at the [facility] [place] [address] Care Team Providers Name Role Phone System, Provider Not In Primary Care Provider Unavailable Reason for Visit Reason Onset Date Comments Pt. Information/instruction 07/23/2012 Encounter Details Date Type Department Care Team Description 07/23/2012 Telephone [facility] Luis Carlos Harrell, Pt. 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
--- OUTSIDE RECORDS SUMMARY | 2022-06-18 12:02 | XMS_ITS | Encounter Summary ---
:2001 Author Organization [place] Address [address] [place] [address] Care Team Providers Name Role Phone [facility] Primary Care Provide r Julian Spencer MD Unavailable Mariposa Atwood MD Unavailable [phone] Encounter Details Date Type Department Care Team Description 05/19/2020 Travel Social History Tobacco Use Types Packs/Day [...] on filedocumented in this encounter Care Teams Beet Flumer Relationship Specialty Start Date End Date Clinic, [facility] PCP - General 10/15/17 08/08/201999 [place] [address] Julian Spencer MD MD Orthopedics 03/08/[address] [place], [place] [phone] Mariposa Atwood MD Assigned PCP 04/29/20 11/12/20 [address] [place] [address] documented as of this encounter
--- OUTSIDE RECORDS SUMMARY | 2022-06-18 12:02 | XMS_ITS | Encounter Summary ---
:2001 Author Organization [place] Address [address] [place] [address] Care Team Providers Name Role Phone [facility], [facility] Primary Care Provide r Julian Spencer MD Unavailable Mariposa Atwood MD Unavailable [phone] Reason for Visit Reason Onset Date Comments patient records 05/05/2020 MRI to be transferre d to [facility] Encounter Details Date Type Department Care Team Description 05/05/2020 Telephone [facility] Orthopaedic Julian Spencer patient records (MRI to Clinic MD [place]are[facility] be transferred to [facility]) [address] [place] [address] [place] [address] [phone] Social History Tobacco Use Types Packs/Day Years [...] this encounter Miscellaneous Notes Telephone Encounter - Clara Price - 05/05/2020 2:06 PM CDT Faxed order to [facility]. rightfax marked fax as received/sent. Telephone Encounter - Willa Adams - 05/05/2020 11:25 AM CDT [facility] Call Center Phone Message May a detailed message be left on voicemail: yes Reason for Call: Other: Patient's mom would like patients MRI results and possibly records sent overto [facility] since patient cannot be seen sooner than mid May. Their fax number is [phone] Action Taken: Other: ORTHO Travel Screening: Not Applicable documented in this encounter Plan of Treatment Not on filedocumented as of this encounter Visit Diagnoses Not on filedocumented in this encounter Care Teams Agribusiness Internship Relationship Specialty Start Date End Date Clinic, [facility] PCP - General 10/15/17 08/08/201999 [place] [address] Julian Spencer MD MD Orthopedics 03/08/20 [facility] [address] [place], [place] [phone] Mariposa Atwood MD Assigned PCP 04/29/20 11/12/20 [address] [place], [place] [phone] documented as of this encounter
--- OUTSIDE RECORDS SUMMARY | 2022-06-18 12:02 | XMS_ITS | Encounter Summary ---
:2001 Author Organization [facility] Address [address] [place] [address] Care Team Providers Name Role Phone Unavailable Primary Care Provider Unavailable Encounter Details Date Type Department Care Team Description 01/03/2009 Office Visit-[facility] DEPT Unknown, Provider Social History Tobacco Use Types Packs/Day Years Used Date Smoking Tobacco: Never Assessed Sex Assigned at Date Recorded Female 12/02/2020 1:42 PM CDT documented as of this encounter Progress Notes Unknown, Provider - 01/03/2009 12:50 PM CDT Ship Cleaner: Desire Brand Status: Final Encounter: 03 Jan 2009 Type: Rooming Note Informant Parent is informant unless otherwise noted. Reason For Visit follow up test results Do you have any other appointments, tests or procedures within the [facility] system for this same day? No. Pain Eval Current history of pain associated with this visit is as follows: Location: stomach Quality: sharp Severity: varies (Pain scale 1-10, with 10 being the worst) Duration: 30 mins to half hour Timing: ongoing for a year Context: varies Modifying factors: varies Associated signs/symptoms: none. Personal Hx Behavioral history: No tobacco use. Home environment: No secondhand tobacco smoke in home. Vital Signs Position for height measurement: standing Blood pressure taken with: electronic BP machine. Height Percentile: 40.09 Weight Percentile: 19.02 BMI %: 11.02 . Recorded by [email or web address] on 03 Jan 2009 01:08 PM BP:93/66, RUE, Sitting, HR: 96 b/min, Height: 122.9 cm, Weight: 21.0 kg, BMI: 13.9 kg/m2. Immunizations Immunizations are reported as current. Allergies No Known Drug Allergy. Current Meds Omeprazole 20 MG Capsule Delayed Release;; RPT Amoxicillin SUSR;TAKE 1 TEASPOONFUL EVERY 12 HOURS DAILY.; RPT AAA-MED RECONCILE;; RPT. Med list offered and patient declined. Teaching Teaching not applicable. Signature Electronically Signed By: Desire Brand CMA; 01/03/2009 1:15 PM PAN TANK WORKER. documented in this encounter Plan of Treatment Not on filedocumented as of this encounter Visit Diagnoses Not on filedocumented in this encounter
--- OUTSIDE RECORDS SUMMARY | 2022-06-18 12:02 | XMS_ITS | Encounter Summary ---
:2001 Author Organization [place] Address [address] [place] [address] Care Team Providers Name Role Phone System, Provider Not In Primary Care Provider Unavailable Encounter Details Date Type Department Care Team Description 05/21/2012 Hospital Encounter [facility] Mynor Humphries, Ashish Morales MD, [address] [facility] GASTERENTEROLOGY [address] [address] [place], [place] [phone] (Wo rk) Social History Tobacco Use Types Packs/Day Years Used Date Smoking Tobacco: Never Assessed Sex Assigned at Date Recorded Female 12/02/2020 1:42 PM CDT documented as of this encounter Progress Notes Abstract, Provider - 05/24/2012 11:55 AM CDT documented in this encounter Plan of Treatment Not on filedocumented as of this encounter Procedures Procedure Name Priority Date/Time Associated Comments Diagnosis REDUCING SUBSTANCES Routine 05/21/2012 7:30 AM Re sults for this STOOL CDT procedure are i n the results section. PANCREATIC ELASTASE 1 Routine 05/21/2012 7:30 AM Results for this CDT procedure are i n the results section. FECAL FAT QUALITATIVE Routine 05/21/2012 7:30 AM Results for this RANDOM CDT procedure are i n the results section. ALPHA 1 ANTITRYPSIN Routine 05/21/2012 7:30 AM Re sults for this STOOL CDT procedure are i n the results section. documented in this encounter Results Fat stool qualitative (05/21/2012 7:30 AM CDT) [facility] Time Signature Neutral Fat Increased LACEY Fecal Reference range: Normal [facility] Split Fat Increased LACEY Fecal Reference range: Normal [facility] (Note) HOSPITAL LAB INTERPRETIVE INFORMATION: Fecal Fat Qualitative Neutral fats include the monoglycerides, diglycerides, and triglycerides while split fats are the free fatty acids that are liberated from them. Impaired synthesis or secretion of pancreatic enzymes or bile may cause an increase in neutral fats while an increase in split fats suggests impaired absorption of nutrients. Performed by [facility], [address] [place] [id number] [email or web address], Polly Gilman MD, Lab. Director Specimen Anatomical Collection Method Collection Time Receive d Time (Source) Location / / Volume Laterality 05/21/2012 7:30 AM 2 9:25 CDT AM CDT Mynor Humphries MD, MD LAB - STOOLS ORDERABLES Performing Organization Address City/State/ZIP Code Phon e Number [facility] [address] [phone] [facility] Reducing substances stool (05/21/2012 7:30 AM CDT) [facility] Method Time Signature Ph Stool Formed 7.0 - 7.5 [facility] stool: pH [facility] Unable to perform test Glucose Stool Negative NEG mg/dL [facility] Reducing Sub Negative 0 - 249 [facility] Stool mg/dL [facility] Specimen Anatomical Collection Method Collection Time Receive d Time (Source) Location / / Volume Laterality 05/21/2012 7:30 AM 2 9:25 CDT AM CDT Mynor Humphries MD, MD LAB - STOOLS ORDERABLES Performing Organization Address City/State/ZIP Code Phon e Number [facility] [address] [place] [address] [facility] Alpha 1 antitrypsin stool (05/21/2012 7:30 AM CDT) P athologist Signature Zkgxa-6-Gkcogmh 0.25 [facility] LAB Comment: Reference range: 0.00 to 0.62 Unit: mg/g (Note) Performed by [facility], [facility] [place] [address] [email or web address], Polly Gilman MD, Lab. Director Specimen Anatomical Collection Method Collection Time Receive d Time (Source) Location / / Volume Laterality 05/21/2012 7:30 AM 2 9:25 CDT AM CDT Mynor Humphries MD, MD LAB - STOOLS ORDERABLES Performing Organization Address City/State/ZIP Code Phon e Number [place] [address] [address] [facility] Pancreatic elastase 1 (05/21/2012 7:30 AM CDT) [facility] gist Method Time Signature Lab Scanned PANCREATIC MISYS Result ELASTASE 1-Scanned Specimen Anatomical Collection Method Collection Time Receive d Time (Source) Location / / Volume Laterality 05/21/2012 7:30 AM 2 9:25 CDT AM CDT Mynor Humphries MD, MD LAB - STOOLS ORDERABLES Performing Organization Address City/[facility] [address] [facility]/ZIP [facility] Phon e Number MISYS documented in this encounter Visit Diagnoses Not on filedocumented in this encounter Care Teams Linux Support Engineer Relationship Specialty Start Date End Date System, Provider Not In PCP - General 06/20/1111/04 documented as of this encounter
--- OUTSIDE RECORDS SUMMARY | 2022-06-18 12:02 | XMS_ITS | Encounter Summary ---
:2001 Author Organization [place] Address [address] [place] [address] Care Team Providers Name Role Phone System, Provider Not In Primary Care Provider Unavailable System, Provider Not In Primary Care Provider Unavailable Encounter Details Date Type Department Care Team Description 10/25/2013 Orders Only [facility] Mynor Humphries Diarr hea (Primary Dx) [facility] Laboratory MD CARLENE [address] [facility] GASTERENTEROLOGY [address] [address] [place], [place] [phone] (Wo rk) Social History Tobacco Use Types Packs/Day Years Used Date Smoking Tobacco: Never Assessed Sex Assigned at Date Recorded Female 12/02/2020 1:42 PM CDT documented as of this encounter Plan of Treatment Not on filedocumented as of this encounter Procedures Procedure Name Priority Date/Time Associated Comments Diagnosis OCCULT BLOOD STOOL Routine 11/25/2013 2:37 PM Diarrhea Res ults for this 1-3 SPEC CDT procedure are i n the results section. FECAL LEUKOCYTE SMEAR Routine 11/25/2013 2:37 PM Diarrhea Results for this CDT procedure are i n the results section. ALPHA 1 ANTITRYPSIN Routine 11/25/2013 2:37 PM Diarrhea Re sults for this STOOL CDT procedure are i n the results section. documented in this encounter Results Alpha 1 antitrypsin stool (11/25/2013 2:37 PM CDT) [facility] Time Signature Hunzh-6-Wtdrd <0.12 [place] ryp Stool Reference range: 0.00 to 0.62 [facility] Unit: mg/g HOSPITAL LAB (Note) Performed by [email or web address], [address] [place] [address] [email or web address], Anuel Carreon MD, Lab. Director Specimen Anatomical Collection Method Collection Time Receive d Time (Source) Location / / Volume Laterality 11/25/2013 2:37 PM 4 7:12 CDT PM CDT Mynor Humphries MD, MD LAB - STOOLS ORDERABLES Performing Organization Address City/[facility]/ZIP [facility] Phon e Number [facility] [address] [place], [place] [address] [facility] Fecal leukocyte (11/25/2013 2:37 PM CDT) [facility] Method Time Signature Specimen Feces [place] Description [facility] Fecal Leucocytes No WBC'S [facility] Micro Report FINAL [place] Status 11/25/2013 [facility] Specimen Anatomical Collection Method Collection Time Receive d Time (Source) Location / / Volume Laterality 11/25/2013 2:37 PM 4 7:12 CDT PM CDT Mynor Humphries MD, MD LAB - MICRO GENERAL ORDERABL ES Performing Organization Address City/[facility]/ZIP Code Phon e Number [facility] [address] [place], [place] [address] [facility] (ABNORMAL) Occult blood stool 1-3 spec (11/25/2013 2:37 PM CDT) Patholo gist Method Time Signature Occult Blood Negative NEG [place] Slide 1 [facility] Slide 1 Date 11.25.13 [facility] Occult Blood Specimen not NEG [place] Slide 2 received (A) [facility] Slide 2 Date Specimen not [place] received [facility] Occult Blood Specimen not NEG [place] Slide 3 received (A) [facility] Slide 3 Date Specimen not [facility] received [facility] Specimen Anatomical Collection Method Collection Time Receive d Time (Source) Location / / Volume Laterality Stool specimen 11/25/2013 2:37 PM 014 7:10 (specimen) CDT PM CDT Mynor Humphries MD, LAB - STOOLS ORDERABLES Performing Organization Address City/State/ZIP Code Phon e Number [facility] [address] [place], [place] [address] [facility] documented in this encounter Visit Diagnoses Diagnosis Diarrhea - Primary documented in this encounter Care Teams Manager Quality Systems Relationship Specialty Start Date End Date System, Provider Not In PCP - General 06/20/1111/04 System, Provider Not In PCP - General Clinic 11/25/13 04/04/17 documented as of this encounter
--- OUTSIDE RECORDS SUMMARY | 2022-06-18 12:02 | XMS_ITS | Encounter Summary ---
:2001 Author Organization [place] Address [address] [place] [address] Care Team Providers Name Role Phone Clinic, [facility] Primary Care Provide r Reason for Visit Reason Comments Neck Pain Encounter Details Date Type Department Care Team Description 10/15/2017 [facility] Neck [facility], [facility] Emergency Dep t [facility] encounter [address] [place], [place] [address] [facility] [address] [address] [address] [place] [address] [phone] (Wo rk) Social History Tobacco Use Types Packs/Day Years Used Date Smoking Tobacco: Never Assessed Sex Assigned at Date Recorded Female 12/02/2020 1:42 PM CDT documented as of this encounter Last Filed Vital Signs Vital Sign Reading Time Taken Comments Blood Pressure 102/56 10/15/2017 5:16 PM CDT Pulse 62 10/15/2017 5:16 PM CDT Temperature 36.5 ??C (97.7 ??F) 10/15/2017 5:16 PM CDT Respiratory Rate 18 10/15/2017 5:16 PM CDT Oxygen Saturation 98% 10/15/2017 5:16 PM CDT Inhaled Oxygen Concentration - - Weight 50.8 kg (111 lb 15.9 oz) 10/15/2017 5:16 PM CDT Height - - Body Mass Index - - documented in this encounter Discharge Instructions Discharge Carlitos Espinal MD - 10/15/2017 6:12 PM CDT Neck Sprain or Strain A sudden force that causes turning or bending of the neck can cause sprain or strain. An example would be the force from a car accident. This can stretch or tear muscles called a strain. It can also stretch or tear ligaments called a sprain. Either of these can cause neck pain. Sometimes neck pain occurs after a simple awkward movement, or even after a night's sleep in an awkward position. In either case, muscle spasm is commonly present and contributes to the pain. ?? Unless you had a forceful physical injury (for example, a car accident or fall), X-rays are usually not ordered for the initial evaluation of neck pain. If pain continues and dose not respond to medical treatment, X-rays and other tests may be performed at a later time. Home care ?? You may feel more soreness and spasm the first few days after the injury. Rest until symptoms begin to improve. ?? When lying down, use a comfortable pillow or a rolled towel that supports the head and keeps the spine in a neutral position. The position of the head should not be tilted forward or backward. ?? Apply an ice pack over the injured area for 15 to 20 minutes every 3 to 6 hours. You should do this for the first 24 to 48 hours. You can make an ice pack by filling a plastic bag that seals at the top with ice cubes and then wrapping it with a thin towel. After 48 hours, apply heat (warm shower orwarm bath) for 15 to 20 minutes several times a day, or alternate ice and heat. ?? You may use qhad-lyo-npkhioj pain medicine to control pain, unless another pain medicine was prescribed. If you have chronic liver or kidney disease or ever had a stomach ulcer or GI bleeding, talk with your healthcare provider before using these medicines. ?? If a soft cervical collar was prescribed, it should be worn only for periods of increased pain. It should not be worn for more than 3 hours a day, or for a period longer than 1 to 2 weeks. Follow-up care Follow up with your healthcare provider as directed. Physical therapy may be needed. Sometimes fractures don???t show up on the first X-ray. Bruises and sprains can sometimes hurt as much as a fracture. These injuries can take time to heal completely. If your symptoms don???t improve or they get worse, talk with your healthcare provider. You may need a repeat X-ray or other tests. If X-rays were taken, you will be told of any new findings that may affect your care. Call 911 Call 911 if you have: ?? Neck swelling, difficulty or painful swallowing ?? Difficulty breathing ?? Chest pain When to seek medical advice Call your healthcare provider right away if any of these occur: ?? Pain becomes worse or spreads into your arms ?? Weakness or numbness in one or both arms Date Last Reviewed: 06/23/2015 ?? [id number] [employer]. [address] [place] [address], [place] [address]. All rights reserved. This information is not intended as a substitute for professional medical care. Always follow your healthcare professional's instructions. documented in this encounter Medications at Time of Discharge Medication Sig Dispensed Refills Start Date End Date amoxicillin-clavulanate 1 08/06 tsp po bid 150 mL 0 201108/03/2020 (AUGMENTIN-ES) 600-42.9 MG/5ML suspensionIndications: Immunity deficiency documented as of this encounter ED Notes Ruby Wilson RN - 10/15/2017 5:15 PM CDT Patient presents with complaints of left sided neck pain. Pain started this morning and patient is unable to turn neck to the left. Patient was recently diagnsed with POTS and was told to come to the ER by her PCP. ABC intact without need for intervention. 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 Carlitos Tierney MD - 10/15/2017 5:12 PM CDT History Chief Complaint: Neck Pain HPI Dakota Casiano is a 17 year old female who presents with neck pain. The patient has a history of scoliosis and has had Flores rods placed for this along with undergoing multiple surgeries. She wasrecently diagnosed with POTS and today presents with complaints of left sided neck pain that startedthis morning. The patient has tried ibuprofen with no significant relief of her pain. The mother reports that she has also had multiple syncopal events from pain within the past few weeks. There was noreport of numbness, weakness, trauma, open wounds, rashes, fevers, nausea, abdominal pain, back pain, or any other symptoms. There was no specific cause of her pain mentioned. Allergies: No known drug allergies. Medications: amoxicillin-clavulanate (AUGMENTIN-ES) 600-42.9 MG/5ML suspension Past Medical History: No significant past medical history. Past Surgical History: No pertinent past surgical history. Family History: No pertinent family history. Social History: Smoking status: Never smoker Alcohol use: No Presents with mother Up to date on immunizations Review of Systems Eyes: Negative for visual disturbance. Musculoskeletal: Positive for back pain, neck pain and neck stiffness. Negative for arthralgias, gait problem, joint swelling and myalgias. Skin: Negative for color change and wound. All other systems reviewed and are negative. Physical Exam Patient Vitals for the past 24 hrs: BP Temp Pulse Heart Rate Resp SpO2 Weight 10/15/17 1716 102/56 97.7 ??F (36.5 ??C) 62 62 18 98 % 50.8 kg (111 lb 15.9 oz) Physical Exam General: alert HEENT: The scalp and head appear normal Extraocular muscles are grossly intact. The nose is normal. The ears, external canals are normal Tympanic membranes are normal The oropharynx is normal. Uvula is in the midline. Neck: Increased tenderness to palpation of the paracervical muscles on the left. Decreased ROM on left rotation There is no meningismus. No masses. Lungs: Clear. No rales, no wheezing. There is no tachypnea. Non-labored. Cardiac: Regular rate. Normal S1 and S2. No pathological murmur. Abdomen: Soft. Non-distended. Non-tender abdomen. MS: Normal tone. Normal movement of all extremities. Tender from left occipital region down along posterior paracervical down to posterior trapezius on left Left rotation causes pain on right Neuro: Normal interactions, appropriate for age. Skin: No rash. No lesions. No petechiae or purpura. Emergency Department Course Emergency Department Course: Nursing notes and vitals reviewed. (180) I performed an exam of the patient as documented above. Findings and plan explained to the mother and patient. Patient discharged home with instructions regarding supportive care, medications, and reasons to return. The importance of close follow-up was reviewed. Impression & Plan Medical Decision Making: Dakota Casiano is a 17 year old female who has a neck strain. Will treat her conservatively with alternating ice and heat, antiinflammatories, and follow up with her primary doctor in 48-72 hours. [place] have a history of POTS and mother is worried about fainting with pain. I think trying to alleviate pain with stepping up to opiates would be more risky for causing orthostasis that it would treating with supportive therapy as already mentioned. If she feels lightheaded then she should lay down. Increase fluids, etc. Follow up with primary doctor on or Saturday if not starting to improve significantly. Diagnosis: ICD-10-CM 1. Neck sprain, initial encounter S13.9XXA Disposition: Patient is discharged to home. I, Jose Manuel Enriquez, am serving as a scribe on 10/15/2017 at 6:04 PM to personally document services performed by Dr. Tierney based on my observations and the provider's statements to me. Jose Manuel Enriquez 10/15/2017 [facility] EMERGENCY DEPARTMENT Carlitos Tierney MD 10/16/17 2101 documented in this encounter Plan of Treatment Not on filedocumented as of this encounter Visit Diagnoses Diagnosis Neck sprain, initial encounter documented in this encounter Care Teams Hog Confinement System Manager Relationship Specialty Start Date End Date Clinic, [facility] PCP - General 10/15/17 08/08/201999 [place] [address] documented as of this encounter
--- OUTSIDE RECORDS SUMMARY | 2022-06-18 12:02 | XMS_ITS | Encounter Summary ---
:2001 Author Organization [place] Address [address] [place] [address] Care Team Providers Name Role Phone Clinic, [facility] Primary Care Provide r Julian Spencer MD Unavailable Mariposa Atwood MD Unavailable [phone] Reason for Visit Reason Onset Date Comments URGENT: MRI TRANSFER TO [facility] 05/05/2020 Encounter Details Date Type Department Care Team Description 05/05/2020 Telephone [facility] Julian Spencer URGENT: MRI TRANSFER TO Clinic MD Darell [address] [place] [address] [phone] Social History Tobacco Use Types Packs/Day Years [...] this encounter Miscellaneous Notes Telephone Encounter - Aishwarya Haile, ATC - 05/05/2020 3:21 PM CDT Called [facility] to verify that they have received the MRI fax. They confirmed they have it and uploaded it to pts chart. Telephone Encounter - Ana Phillips - 05/05/2020 3:05 PM CDTSummary: URGENT: MRI TRANSFER TO [facility] Pt's mother called to say that [facility] needs an URGENT transfer of pt's MRI, to [facility]. Please call pt's mother back with any questions, concerns, or update. documented in this encounter Plan of Treatment Not on filedocumented as of this encounter Visit Diagnoses Not on filedocumented in this encounter Care Teams Student Success Counselor Relationship Specialty Start Date End Date Clinic, [facility] PCP - General 10/15/17 08/08/201999 [place] [address] Julian Spencer MD MD Orthopedics 03/08/[address] [id number] [place], [place] [id number] Mariposa Atwood MD Assigned PCP 04/29/20 11/12/20 [facility] [place], [place] [address] documented as of this encounter
--- OUTSIDE RECORDS SUMMARY | 2022-06-18 12:02 | XMS_ITS | Encounter Summary ---
:2001 Author Organization [place] Address [address] [place] [address]. [place] [address] Care Team Providers Name Role Phone Clinic, [facility] Primary Care Provide r Julian Spencer MD Unavailable Mariposa Atwood MD Unavailable [phone] Reason for Visit Reason Onset Date Comments Appointment 05/13/2020 Encounter Details Date Type Department Care Team Description 05/13/2020 Telephone [facility] Explorer Perez Finney, Appointment [facility] [place] [address] Explorer [facility], [address] [place] [address] [place] [phone] Social History Tobacco Use Types Packs/Day Years [...] Telephone Encounter - [place] Ames - 05/16/2020 8:13 AM CDT Appointment scheduled. Telephone Encounter - Suha Bartlett - 05/13/2020 4:25 PM CDT Patients mother stated she has been calling everyday and she cannot get a call back. She is not ableto get daughter scheduled. Please call patient back. Telephone Encounter - Sara Cruz - 05/13/2020 9:46 AM CDT Mom said she was suppose to get a cb and never did. Needs to get this sched. Or at least a call backto see what status is. Per note on chart was going to talk to nadine and cb mom. Please do so today asmom doesn't want to go into the weekend with out hearing something. documented in this encounter Plan of Treatment Not on filedocumented as of this encounter Visit Diagnoses Not on filedocumented in this encounter Care Teams Mobility Specialist Relationship Specialty Start Date End Date Clinic, [facility] PCP - General 10/15/17 08/08/201999 [place] [address] Julian Spencer MD MD Orthopedics 03/08/20 [facility] [address] [place], [place] [address] Mariposa Atwood MD Assigned PCP 04/29/20 11/12/20 [facility] [place], [place] [address] documented as of this encounter
--- OUTSIDE RECORDS SUMMARY | 2022-06-18 12:02 | XMS_ITS | Encounter Summary ---
:2001 Author Organization [facility] Address [address] [place] [address] Care Team Providers Name Role Phone Unavailable Primary Care Provider Unavailable Encounter Details Date Type Department Care Team Description 02/07/2009 Office Visit-[facility] DEPT Unknown, Provider Social History Tobacco Use Types Packs/Day Years Used Date Smoking Tobacco: Never Assessed Sex Assigned at Date Recorded Female 12/02/2020 1:42 PM CDT documented as of this encounter Progress Notes Unknown, Provider - 02/07/2009 8:[address] Tech: Desire Brand Status: Final Encounter: 07 Feb 2009 Type: Rooming Note Informant Parent is informant unless otherwise noted. Reason For Visit Abdominal pain follow up Do you have any other appointments, tests or procedures within the [facility] system for this same day? No. Pain Eval Current history of pain associated with this visit is as follows: Location: stomach Quality: sharp Severity: varies (Pain scale 1-10, with 10 being the worst) Duration: varies Timing: started in Mar 12 Context: none Modifying factors: none Associated signs/symptoms: none. Personal Hx Behavioral history: No tobacco use. Home environment: No secondhand tobacco smoke in home. Vital Signs Recorded by Desire Brand on 07 Feb 2009 08:57 AM BP:104/50, RUE, Sitting, HR: 104 b/min, Height: 124.7 cm, Weight: 21.9 kg, BMI: 14.1 kg/m2. Position for height measurement: standing Blood pressure taken with: electronic BP machine. Height Percentile: 68.59 Weight Percentile: 25.55 Weight Change: +0.9kg BMI %: 68.59 . Immunizations Immunizations are reported as current. Allergies No Known Drug Allergy. Current Meds Omeprazole 20 MG Capsule Delayed Release;; RPT Amoxicillin 250 MG Tablet Chewable;TAKE 2 TABLETS TWICE DAILY; RPT AAA-MED RECONCILE;; RPT. Med list offered and patient declined. Teaching Teaching not applicable. Signature Signed By: Desire Brand CMA; 02/07/2009 9:02 AM SAT MATH TUTOR. documented in this encounter Plan of Treatment Not on filedocumented as of this encounter Visit Diagnoses Not on filedocumented in this encounter
--- OUTSIDE RECORDS SUMMARY | 2022-06-18 12:02 | XMS_ITS | Encounter Summary ---
:2001 Author Organization [place] Address [address] [place] [address]. [place] [address] Care Team Providers Name Role Phone Clinic, [facility] Primary Care Provide r Julian Spencer MD Unavailable Mariposa Atwood MD Unavailable [phone] Julian Spencer MD Unavailable Encounter Details Date Type Department Care Team Description 06/13/2020 Orders Only [facility] Mariposa Atwood's [facility] Pediatric MD Nettie disease (H) (Primary Specialty Clinic [address] [place] [address] Dx) [address] [place] [address] [facility] 9th [place] [address] Social History Tobacco Use Types [...] on filedocumented as of this encounter Results CRP, inflammation (06/20/2020 8:40 AM SHANK STITCHER) Analysis Performed At Patho logist Time Signature CRP Inflammation <2.9 0.0 - 8.0 06/20/2020 [facility] O F mg/L 9:35 AM SHANK STITCHER [facility] Specimen Anatomical Collection Method Collection Time Receive d Time (Source) Location / / Volume Laterality Blood specimen 06/20/2020 8:40 AM 020 8:44 (specimen) SHANK STITCHER AM SHANK STITCHER Mariposa Atwood MD LAB - BLOOD ORDERABLES Performing Organization Address City/State/ZIP Code Phon e Number [address] [address] [phone] [facility] TSH with free T4 reflex (06/20/2020 8:40 AM SHANK STITCHER) P athologist Signature TSH 3.01 0.40 - 4.00 06/20/2020 [facility] OF mU/L 9:35 AM SHANK STITCHER [facility] Specimen Anatomical Collection Method Collection Time Receive d Time (Source) Location / / Volume Laterality Blood specimen 06/20/2020 8:40 AM 8:44 (specimen) SHANK STITCHER AM SHANK STITCHER Mariposa Atwood MD LAB - BLOOD ORDERABLES Performing Organization Address City/[facility]/ZIP Code Phon e Number [id number] [place] [address] [facility] VWD Diagnostic evaluation to Versiti (order code 1800): Laboratory Miscellaneous Order (06/20/2020 8:40 AM SHANK STITCHER) Component Value Ref Test Analysis Performed At Patholo gist Range Method Time Signature Miscellaneous Specimen Received, Reordered and sent to Performing laboratory - Report to follow upon 06/21/2020 [facility] OF Test completion. 8:40 AM SHANK STITCHER [facility] Specimen Anatomical Collection Method Collection Time Receive d Time (Source) Location / / Volume Laterality Blood specimen VENOUS BLOOD / 06/20/2020 8:40 AM 06/20 (specimen) Unknown SHANK STITCHER 12:17 PM SHANK STITCHER Mariposa Atwood MD LAB - BLOOD ORDERABLES Performing Organization Address City/State/ZIP Code Phon e Number [address] [id number] [phone] [place] [address] VWF Sequence analysis to Kam (order code 1395): Laboratory Miscellaneous Order (06/20/2020 8:40 AM SHANK STITCHER) Component Value Ref Test Analysis Performed At [facility] Range Method Time Signature Miscellaneous Specimen Received, Reordered and sent to Performing laboratory - Report to follow upon 06/21/2020 [facility] OF Test completion. 8:40 AM [facility] Specimen Anatomical Collection Method Collection Time Receive d Time (Source) Location / / Volume Laterality Blood specimen VENOUS BLOOD / 06/20/2020 8:40 AM 06/20 9:10 (specimen) Unknown SHANK STITCHER AM SHANK STITCHER Mariposa Atwood MD LAB - BLOOD ORDERABLES Performing Organization Address City/State/ZIP Code Phon e Number [address] [address] [facility] ABO and Rh (06/20/2020 8:40 AM SHANK STITCHER) [facility] Method Time Signature ABO O 06/20/2020 [facility] OF 10:52 AM SHANK STITCHER [facility] RH(D) Pos [facility] Specimen 06/23/2020 06/20/2020 [facility] OF Expires 10:18 AM [facility] Specimen Anatomical Collection Method Collection Time Receive d Time (Source) Location / / Volume Laterality Blood specimen 06/20/2020 8:40 AM 020 8:44 (specimen) SHANK STITCHER AM SHANK STITCHER Mariposa Atwood MD LAB - BLOOD BANK TEST ORDER Performing Organization Address City/[facility]/ZIP Code Phon e Number [phone] [place] [id number] [place] [address] Beta 2 Glycoprotein Antibodies IGG IGM (06/20/2020 8:40 AM SHANK STITCHER) Analysis Performed At [facility] logist Time Signature Beta 2 1.0 <7 U/mL 06/21/2020 [facility] Glycoprotein 1 11:56 AM [facility] Antibody IgG [facility] Comment: Negative Beta 2 Glycoprotein 1 <2.9 <7 U/mL 06/21/2020 11:56 A M [facility] Antibody IgM [facility] Comment: Negative Specimen Anatomical Collection Method Collection Time Receive d Time (Source) Location / / Volume Laterality Blood specimen 06/20/2020 8:40 AM 8:44 (specimen) SHANK STITCHER AM SHANK STITCHER Mariposa Atwood MD LAB - BLOOD ORDERABLES Performing Organization Address City/[facility]/ZIP Code Phon e Number [facility] [address] Cardiolipin Jacqui IgG and IgM (06/20/2020 8:40 AM SHANK STITCHER) athologist Signature Cardiolipin <1.6 0.0 - 19.9 06/22/2020 UN[facility]ITY [facility] IgG GPL-U/mL 9:49 AM [facility] Comment: Negative Cardiolipin Antibody <0.2 0.0 - 19.9 06/22/2020 9:49 AM [facility] IgM MPL-U/mL [facility] Comment: Negative Specimen Anatomical Collection Method Collection Time Receive d Time (Source) Location / / Volume Laterality Blood specimen 06/20/2020 8:40 AM 8:44 (specimen) SHANK STITCHER AM SHANK STITCHER Mariposa Atwood MD LAB - BLOOD ORDERABLES Performing Organization Address City/[facility]/ZIP Code Phon e Number [facility] [address] Lupus Anticoagulant Panel (06/20/2020 8:40 AM SHANK STITCHER) athologist Signature Lupus Result Negative NEG^Negati 06/21/2020 [facility] OF 2:[address] [facility] Comment: (Note) COMMENTS: The INR is normal. APTT ratio is normal. ?? DRVVT Screen ratio is normal. Thrombin time is normal. NEGATIVE TEST; A LUPUS ANTICOAGULANT WAS NOT DETECTED IN THIS SPECIMEN WITHIN THE LIMITS OF THE TESTIN G REPERTOIRE. If the clinical picture is strongly sugg estive of an antiphospholipid syndrome, recommend anticardiolipin and [id number] (IgG and IgM) antibody tests. Sunni Whitley M.D. ??[phone] 06/21/2020 ? APTT TEST: ? APTT Ratio = ? 1.06 ? Normal is less than 1.21 ? DILUTE JANEE VIPER VENOM TEST: ? Screen Ratio = ? 0.87 ? Barb l is less than 1.21 ? Specimen Anatomical Collection Method Collection Time Receive d Time (Source) Location / / Volume Laterality Blood specimen 06/20/2020 8:40 AM 020 8:44 (specimen) SHANK STITCHER AM SHANK STITCHER Mariposa Atwood MD LAB - BLOOD ORDERABLES Performing Organization Address City/State/ZIP Code Phon e Number [facility] [address] [place] [address] [facility] TEG without Heparinase (06/20/2020 8:40 AM SHANK STITCHER) [facility] gist Method Time Signature R time until clot 6.2 5 - 10 06/20/2020 [facility] OF forms Minute 11:09 AM [facility] K time to spec clot 1.4 1 - 3 06/20/2020 UNIVERSIT Y OF strength Minute 11:09 AM [facility] Angle rate of clot 68.2 53 - 72 06/20/2020 [facility] OF strength Degrees 11:09 AM [facility] MA maximum clot 66.4 50 - 70 mm 06/20/2020 [facility] O F strength 11:09 AM [facility] CI hypercoagulation 0.9 0.0 - 3.0 06/20/2020 UNIVERSIT Y OF index Ratio 11:09 AM [facility] G actual clot 9.9 4.5 - 11.0 06/20/2020 UN[facility]ITY [facility] Kd/sc 11:09 AM [facility] LY30 lysis at 30 1.6 0 - 8 % 06/20/2020 [facility] O F minutes 11:09 AM [facility] LY60 lysis at 60 5.3 0 - 15 % 06/20/2020 [facility] O F minutes 11:09 AM [facility] Specimen Anatomical Collection Method Collection Time Receive d Time (Source) Location / / Volume Laterality Blood specimen 06/20/2020 8:40 AM 020 8:44 (specimen) SHANK STITCHER AM SHANK STITCHER Mariposa Atwood MD LAB - BLOOD ORDERABLES Performing Organization Address City/[facility]/ZIP Code Phon e Number [facility] [address] [place] [address] [facility] Plasminogen activity (06/20/2020 8:40 AM SHANK STITCHER) athologist Signature Plasminogen 124 80 - 133 % 06/22/2020 [facility] Chromogenic 8:[address] [facility] Specimen Anatomical Collection Method Collection Time Receive d Time (Source) Location / / Volume Laterality Blood specimen 06/20/2020 8:40 AM 020 8:44 (specimen) SHANK STITCHER AM SHANK STITCHER Mariposa Atwood MD LAB - BLOOD ORDERABLES Performing Organization Address City/[facility] Phon e Number [facility] [address] [place] [address] [facility] Plasminogen Activator Inhibitor 1 (06/20/2020 8:40 AM SHANK STITCHER) athologist Signature Plasminogen 7 3 - 72 06/29/2020 [facility] OF Activator ng/mL 2:14 PM SHANK STITCHER [facility] Comment: (Note) The plasma JONNY-1 antigen normal range is based on fasting morning samples in adults. ??JONNY-1 level s follow a diurnal variation, with peak levels occurring in the early childhood associate and farrukh levels in the afternoon. This test was developed and its performa nce characteristics determined by [facility] in a manner co nsistent with CLIA requirements. This test has not been romi ared or approved by the U.S. Food and Drug Administration. Test Performed by: [facility] - [address] [address] [employer]: Ronak Jensen M.D. Ph. D.; CLIA# [id number] Specimen Anatomical Collection Method Collection Time Receive d Time (Source) Location / / Volume Laterality Blood specimen 06/20/2020 8:40 AM 020 8:44 (specimen) SHANK STITCHER AM SHANK STITCHER Authorizing Provider Result Ronald Atwood MD LAB - BLOOD ORDERABLES Performing Organization Address City/[facility]/ZIP Code Phon e Number [address] [address] [facility] Factor 13 Antigen Subunit A (06/20/2020 8:40 AM SHANK STITCHER) athologist Signature FACTOR 13 AGN 97 75 - 155 % 06/21/2020 [facility] SUBUNIT A 2:[address] [facility] Specimen Anatomical Collection Method Collection Time Receive d Time (Source) Location / / Volume Laterality Blood specimen 06/20/2020 8:40 AM 020 8:44 (specimen) SHANK STITCHER AM SHANK STITCHER Mariposa Atwood MD LAB - BLOOD ORDERABLES Performing Organization Address City/[facility] Phon e Number [facility] [address] [place] [address] [facility] Factor 10 assay (06/20/2020 8:40 AM SHANK STITCHER) athologist Signature Factor 10 133 60 - 140 % 06/20/2020 [facility] Assay 11:39 AM [facility] Comment: The Factor 10 activity level is [...] specimen 06/20/2020 8:40 AM 020 8:44 (specimen) SHANK STITCHER AM SHANK STITCHER Mariposa Atwood MD LAB - BLOOD ORDERABLES Performing Organization Address City/[facility] Code Phon e Number [address] [address] [facility] Factor 2 assay (06/20/2020 8:40 AM SHANK STITCHER) athologist Signature Factor 2 Assay 114 60 - 140 % 06/20/2020 [facility] OF 11:39 AM [facility] Comment: The Factor 2 activity level is not a scr eening test for the Prothrombin [id number] mutation. Specimen Anatomical Collection Method Collection Time Receive d Time (Source) Location / / Volume Laterality Blood specimen 06/20/2020 8:40 AM 020 8:44 (specimen) SHANK STITCHER AM SHANK STITCHER Mariposa Atwood MD LAB - BLOOD ORDERABLES Performing Organization Address City/[facility]/ZIP Code Phon e Number [address] [address] [facility] Factor 7 assay (06/20/2020 8:40 AM SHANK STITCHER) athologist Signature Factor 7 Assay 117 50 - 129 % 06/20/2020 [facility] 11:[address] [facility] Specimen Anatomical Collection Method Collection Time Receive d Time (Source) Location / / Volume Laterality Blood specimen 06/20/2020 8:40 AM 020 8:44 (specimen) SHANK STITCHER AM SHANK STITCHER Mariposa Atwood MD LAB - BLOOD ORDERABLES Performing Organization Address City/[facility]/ZIP Code Phon e Number [address] [address] [facility] Factor 5 assay (06/20/2020 8:40 AM SHANK STITCHER) athologist Signature Factor 5 Assay 103 60 - 140 % 06/20/2020 [facility] 11:[address] [facility] Comment: The Factor 5 activity level does not cor relate with the presence of the Factor V Leiden mutation and is not a screenin g test for the Factor V Leiden mutation. Specimen Anatomical Collection Method Collection Time Receive d Time (Source) Location / / Volume Laterality Blood specimen 06/20/2020 8:40 AM 020 8:44 (specimen) SHANK STITCHER AM SHANK STITCHER Mariposa Atwood MD LAB - BLOOD ORDERABLES Performing Organization Address City/State/ZIP Code Phon e Number [address] [address] [facility] Factor 9 assay (06/20/2020 8:40 AM SHANK STITCHER) athologist Signature Factor 9 Assay 115 65 - 150 % 06/20/2020 [facility] 11:[address] [facility] Specimen Anatomical Collection Method Collection Time Receive d Time (Source) Location / / Volume Laterality Blood specimen 06/20/2020 8:40 AM 020 8:44 (specimen) SHANK STITCHER AM SHANK STITCHER Mariposa Atwood MD LAB - BLOOD ORDERABLES Performing Organization Address City/State/ZIP Code Phon e Number [address] [place] [address] [facility] Factor 11 assay (06/20/2020 8:40 AM SHANK STITCHER) athologist Signature Factor 11 99 65 - 150 % 06/20/2020 [facility] Assay 11:39 AM [facility] Specimen Anatomical Collection Method Collection Time Receive d Time (Source) Location / / Volume Laterality Blood specimen 06/20/2020 8:40 AM 020 8:44 (specimen) SHANK STITCHER AM SHANK STITCHER Mariposa Atwood MD LAB - BLOOD ORDERABLES Performing Organization Address City/State/ZIP Code Phon e Number [facility] [address] [place] [address] [facility] Thrombin time (06/20/2020 8:40 AM SHANK STITCHER) athologist Signature Thrombin Time 16.0 13.0 - 06/20/2020 [facility] OF 19.0 sec 12:06 PM [facility] Specimen Anatomical Collection Method Collection Time Receive d Time (Source) Location / / Volume Laterality Blood specimen 06/20/2020 8:40 AM 020 8:44 (specimen) SHANK STITCHER AM SHANK STITCHER Mariposa Atwood MD LAB - BLOOD ORDERABLES Performing Organization Address City/State/ZIP Code Phon e Number [facility] [address] [place] [address] [facility] Fibrinogen activity (06/20/2020 8:40 AM SHANK STITCHER) athologist Signature Fibrinogen 279 200 - 420 06/20/2020 [facility] OF mg/dL 8:59 AM [facility] Specimen Anatomical Collection Method Collection Time Receive d Time (Source) Location / / Volume Laterality Blood specimen 06/20/2020 8:40 AM 020 8:44 (specimen) SHANK STITCHER AM SHANK STITCHER Mariposa Atwood MD LAB - BLOOD ORDERABLES Performing Organization Address City/State/ZIP Code Phon e Number [address] [address] [facility] Partial thromboplastin time (06/20/2020 8:40 AM SHANK STITCHER) athologist Signature PTT 31 22 - 37 sec 06/20/2020 [facility] 8:59 AM [facility] Specimen Anatomical Collection Method Collection Time Receive d Time (Source) Location / / Volume Laterality Blood specimen 06/20/2020 8:40 AM 020 8:44 (specimen) SHANK STITCHER AM SHANK STITCHER Mariposa Atwood MD LAB - BLOOD ORDERABLES Performing Organization Address City/[facility]/ZIP Code Phon e Number [phone] [place] [address] [facility] INR (06/20/2020 8:40 AM SHANK STITCHER) P athologist Signature INR 1.08 0.86 - 1.14 06/20/2020 UNIVERSITY 8:59 AM [facility] Specimen Anatomical Collection Method Collection Time Receive d Time (Source) Location / / Volume Laterality Blood specimen 06/20/2020 8:40 AM 020 8:44 (specimen) SHANK STITCHER AM SHANK STITCHER Mariposa Atwood MD LAB - BLOOD ORDERABLES Performing Organization Address City/State/ZIP Code Phon e Number [phone] [place] [address] [facility] von Willebrand Interpretation (06/20/2020 8:40 AM SHANK STITCHER) Patholo gist Method Time Signature von Willebrand (Note) 06/29/2020 [facility] OF Interpretation 1:39 PM [facility] Comment: The von Willebrand factor antigen (VWF:A [...] factor multimers is normal (see report from [facility]). The Ristocetin Induced Platelet Aggregat ion (RIPA) study performed as part of a platelet aggregation study was normal. The diagnosis of von Willebrand disease can neither be established nor excluded on the basis of this specim en. If clinical suspicion is high for von Wi llebrand disease, recommend repeat testing in the first 3 days of menstrual cycle, since the estrogen level influences the amount of circulating von Willebrand factor. ??Note: Use of oral contraceptiv es and/or could mask von Willebrand disease by elevating VWF:Ag and VWF:ACT levels to normal. ??Family studies may also be helpful. ?? Sunni Whitley M.D. ??[phone] 06/29/2020 Specimen Anatomical Collection Method Collection Time Receive d Time (Source) Location / / Volume Laterality Blood specimen 06/20/2020 8:40 AM 020 8:44 (specimen) SHANK STITCHER AM SHANK STITCHER Mariposa Atwood MD LAB - BLOOD ORDERABLES Performing Organization Address City/[facility]/ZIP Code Phon e Number [address] Von Willebrand Multimers (06/20/2020 8:40 AM SHANK STITCHER) Component Value Ref Test Analysis Performed At Patholo gist Range Method Time Signature Von Multimer analysis will be se nt. Reordered as reference send out test. Interpretation 06/22/2020 UN[facility]ERSITY OF Willebrand pending multimer analysis. 2:[address] [facility] Specimen Anatomical Collection Method Collection Time Receive d Time (Source) Location / / Volume Laterality Blood specimen 06/20/2020 8:40 AM 020 8:44 (specimen) SHANK STITCHER AM SHANK STITCHER Mariposa Atwood MD LAB - BLOOD ORDERABLES Performing Organization Address City/[facility]/ZIP Code Phon e Number [address] VWF Activity with reflex to Ristocetin Cofactor Activity (06/20/2020 8:40 AM SHANK STITCHER) P athologist Signature von Willebrand 83 50 - 180 % 06/22/2020 UN[facility]ITY OF Factor Activity 10:[address] [facility] Specimen Anatomical Collection Method Collection Time Receive d Time (Source) Location / / Volume Laterality Blood specimen 06/20/2020 8:40 AM 020 9:10 (specimen) SHANK STITCHER AM SHANK STITCHER Mariposa Atwood MD LAB - BLOOD ORDERABLES Performing Organization Address City/[facility]/ZIP Code Phon e Number [address] Von Willebrand antigen (06/20/2020 8:40 AM SHANK STITCHER) athologist Signature von Willebrand 77 50 - 200 % 06/22/2020 [facility] OF Antigen 10:50 AM [facility] Comment: The presence of Rheumatoid Factor may pr oduce an overestimation of the test result. Specimen Anatomical Collection Method Collection Time Receive d Time (Source) Location / / Volume Laterality Blood specimen 06/20/2020 8:40 AM 020 8:44 (specimen) SHANK STITCHER AM SHANK STITCHER Mariposa Atwood MD LAB - BLOOD ORDERABLES Performing Organization Address City/State/ZIP Code Phon e Number [facility] [address] Factor 8 assay (06/20/2020 8:40 AM SHANK STITCHER) athologist Signature Factor 8 Assay 62 55 - 200 % 06/22/2020 [facility]ITY OF 10:49 AM [facility] Specimen Anatomical Collection Method Collection Time Receive d Time (Source) Location / / Volume Laterality Blood specimen 06/20/2020 8:40 AM 020 8:44 (specimen) SHANK STITCHER AM SHANK STITCHER Mariposa Atwood MD LAB - BLOOD ORDERABLES Performing Organization Address City/State/ZIP Code Phon e Number [facility] [address] Platelet Aggregation w/ ADP, TBN, COL, ARACH A, RIST(3conc) (06/20/2020 8:40 AM SHANK STITCHER) Patholo gist Method Time Signature ADP See table 06/20/2020 [facility] below 2:11 PM [facility] Thrombin See table 06/20/2020 [facility] below 2:11 PM [facility] Epinephrine See table 06/20/2020 [facility] below 2:11 PM [facility] Collagen See table 06/20/2020 [facility] 2:11 PM [facility] Arachadonic Acid (Note) 06/20/2020 [facility] O F 2:11 PM [facility] Comment: Abnormal platelet aggregation study. The tracing [...] aggregation to Epinephrine. ? Sunni Whitley M.D. [phone] ? 06/20/2020 ? ATP RELEASE: ? ATP [...] 63% Ristocetin-4 Conc (Note) 06/20/2020 2:11 PM SHANK STITCHER [facility] Comment: See full platelet aggregation comments. ? Sunni Whitley M.D. [phone] ? 06/20/2020 ? 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 [place], [place] [id number] Mariposa Atwood, Assigned PCP 04/29/2005/25 [address] [place], [place] [address] Julian Spencer MD Assigned Musculoskeletal 05/27/[address] Provider [place], [place] [address] documented as of this encounter
--- OUTSIDE RECORDS SUMMARY | 2022-06-18 12:02 | XMS_ITS | Encounter Summary ---
:2000 Author Organization [facility] Address [address] [place] [address] Care Team Providers Name Role Phone Unavailable Primary Care Provider Unavailable Encounter Details Date Type Department Care Team Description 02/07/2009 Office Visit-[facility] Jerad Hooks MD [facility] [place] [facility] [address] [facility] [address] [facility] [address] [place] [address] 2512 [facility], [address] [place] [address] [place] [address] Social History Tobacco Use Types Packs/Day Years Used Date Smoking Tobacco: Never Assessed Sex Assigned at Date Recorded Female 12/02/2020 1:42 PM CDT documented as of this encounter Progress Notes Jerad Hooks - 02/07/2009 8:50 AM CDT Staple Processing Machine Operator: Jerad Hooks Status: Final - Signature Encounter: 07 Feb 2009 Type: Peds GI Letter Division of Pediatric Gastroenterology, Hepatology & Nutrition Department of Pediatrics [place] Mail Code [address] [place] [address] Office: [phone] [facility] Fourth Floor, Clinic 4[address] [place] [address] February 07, 2009 David Gibbs MD [facility] [id number] [place] [address]., [address] [place] [address] [facility] [address] [place] [address] RE: Dakota Casiano : 2000 TAWNYA: 02/07/2009 Dear Colleagues: I had the pleasure of seeing Dakota Casiano in the Pediatric Gastroenterology Clinic today for a followup visit. As you know, Dakota is a 8-year-old female with history of two years of chronic recurrent abdominal pain who had undergone an extensive laboratory workup, as well as EGD and colonoscopy, all of which were entirely normal. In addition, due to history of VU reflux grade 4, per her mother, she hadabdominal ultrasound and VCUG, both of which were entirely normal. She is currently taking amoxicillin which was prescribed, according to Dakota's mom, by Dr. Gibbs and Dr. Villaseñor for grade 4 vesicoureteral reflux, as well as immune deficiency. Since I saw her last I received a call from Dr. Gibbs suggesting that Dakota's mom had significant degree of confabulation to the history, which includes immune deficiency for Dakota received four dose of IVIG even though Dr. Schwarz, pediatric ID doctor from [facility], had not suggested that she needs it or that she has immune deficiency. According toMterri Casiano, Dakota is followed now by Dr. Villaseñor at [facility] for her presumed immune deficiency. In addition, she suggested that Dakota had about 11 episodes of pneumonias requiring 3 admissions to the hospital in the last year, none of which, according to Dr. Gibbs, were documented or seen by him. In the past she also saw a liver doctor. Mom did not know his or her name and could not tell where and why she followed this doctor. She was also seen by Dr. Stokes for asthma and recurrent pneumonias at [facility]. She suggested that she was seen by Dr. Gibbs within the last month; however, Dr. Gibbs suggested previously over the phone that he did not see Dakota for more than a year and as far as he knows she is followed by [facility]. Most recently, Dr. Villaseñor diagnosed Dakota with scoliosis and she was sent to Dr. Cobos at [facility] and iswearing plastic brace now for over a week. Over the last several years Dakota visited a variety of hospitals, including the [facility], [facility], [facility], [facility], as well as [facility]. Dr. Gibbs reported his worries and facts to [facility]; however, as far as he knows, no actions have followed. Since I saw Dakota last, according to her mom, she continues to complain on abdominal pain every other day, but did not have unexplained fevers, canker sores, skin rashes, weight loss,diarrhea, blood in her stool, nausea or vomiting. Her oral intake remains very low, according to radha; however, she continues to gain weight and grow appropriately on the growth chart. On physical exam weight 21.9 kg (25th percentile), Pulse 104, blood pressure 104/50. She was alert, active, in no acute distress. Eyes: PERRLA. Extraocular movements intact. No scleral icterus. Nose: No discharge or trauma. Mucous membranes moist. No evidence of oral aphthous ulcers. Neck: Supple, no cervical lymphadenopathy. Abdomen: Soft, nontender, nondistended, there was no hepatosplenomegaly. Extremities: Warm and well perfused. No cyanosis, clubbing or edema. There was a fairly new hematoma over her right thigh that Dakota did not remember and Dakota and did not recall a history of trauma. I suggested to her parents to stop omeprazole at this point since there is no evidence of acid over-production and damage to the upper GI tract or relationship to her pain. I also suggested to speak with her primary care doctor to stop amoxicillin since without evidence of immune deficiency, as well as vesicoureteral reflux based on most recent studies, she may not need prophylactic antibiotics. I have contacted Dr. Maikel Gibson, Pediatric Protective Services. It is my impression that Dakota is a 8-year-old female with history of recurrent abdominal pain, likely irritable bowel syndrome. However, I am mostly concerned about what appears to be medical child abuse and significant effect on Dakota's life and well being that has been very apparent to me over the last couple of months since I started to follow Daokta. I suggested to her parents to follow with us in about two months and we will consider further workup or treatment as needed at that time. Thank you very much for allowing me to participate in her care. Overall we spent greater than 50% of a 30-minute visit on discussion of Dakota's symptoms, physical exam findings and future plans. Sincerely, Jerad Hooks MD Pediatric Gastroenterology BS:11 Electronically signed by:Jerad Hooks M.D. Mar 01 2009 12:50PM SALES MARKETING MANAGER Electronically signed by:Urbano Price M.D. May 06 2009 7:46AM SALES MARKETING MANAGER documented in this encounter Plan of Treatment Not on filedocumented as of this encounter Visit Diagnoses Not on filedocumented in this encounter
--- OUTSIDE RECORDS SUMMARY | 2022-06-18 12:02 | XMS_ITS | Encounter Summary ---
:2000 Author Organization [facility] Address [facility] [place] [address] Care Team Providers Name Role Phone Clinic, [facility] Primary Care Provide r Julian Spencer MD Unavailable Mariposa Atwood MD Unavailable [phone] Reason for Referral Consultation (Routine) - Closed Specialty Diagnoses / Procedures Referred By Contact Refer red To Contact Neurological Surgery Diagnoses Other secondary scoliosis, thoracolumbar region Tethered cord (H) History of fusion of spine for scoliosis Acquired von Willebrand disease Julian Spencer Ump Peds MD Neurosurgery [address] [place], [place] [facility] [address] [place] [address] [place] [address] Phone: Referral ID Status Reason Start Date Expiration Date Visits Requ ested Visits Authorized [id number] Closed 05/05/2020 05/05/2021 1 1 Consultation (Routine) - Closed Specialty Diagnoses / Procedures Referred By Contact Refer red To Contact Diagnoses Other secondary scoliosis, thoracolumbar region Tethered cord (H) History of fusion of spine for scoliosis Acquired von Willebrand disease Julian Spencer MD [address] [place], [place] [address] Referral ID Status Reason Start Date Expiration Date Visits Requ ested Visits Authorized [id number] Closed 05/05/2020 05/05/2021 1 1 Reason for Visit Reason Comments Consult Scoliosis, referral Dr. Go Muro at [facility] but is from [place], records there and at [place] (MRI) and [facility] Encounter Details Date Type Department Care Team Description 05/05/2020 Office Visit [facility] Julian Spencer History of fusion of spine for scoliosis (Primary Dx); Orthopedic Clinic MD Darell Other secondary scoliosis, thoracolumbar region; [address] Tethered cord (H); [facility] [address] Acquired von Willebrand disease (H) [address] [place] [address] Social History Tobacco Use Types Packs/Day [...] Weight 54.3 kg (119 lb 9.6 oz) 05/05/2020 8:19 AM CDT Height 163.8 cm (5' 4.49) 05/05/2020 8:19 AM CDT Body Mass Index 20.22 05/05/2020 8:19 AM CDT Body Mass Index Percentile 32.94 % 05/05/2020 8:19 AM CD T Growth Chart: CDC (Girls, 2-20 Years) documented in this encounter Progress Notes Julian Spencer MD - 05/05/2020 8:00 AM CDT HISTORY OF PRESENT ILLNESS: The patient presents today for evaluation of ongoing pain in her spine after a posterior spinal fusion for scoliosis. The patient is currently an 19-year-old female. Historyis significant for scoliosis that was initially seen and evaluated by Dr. Cobos at [facility]. She was scheduled for surgery for progression of her deformity in 2016. She underwent a preoperative MRI which showed a tethered cord, and she underwent a tethered cord release by Dr. Hammond. She then subsequentlyhad the posterior spinal fusion done by Dr. Cobos on 01/24/2016 utilizing [employer] Solera instrumentation. Per reports, she had back pain following the surgery. She underwent CrossLink removal in 07/2016 and underwent removal of a right T8 hook in 2018. Dr. Cobos was then away for a period of time and she was seen by Dr. Perez, who worked her up and felt that she had a pseudarthrosis and vitamin D levels were low. She then underwent a revision of her posterior spinal fusion from T3 to L4 in 02/[address] Cobos. After surgery, she still had persisting pain and had issue of drainage, no fevers, chillsor any problems like that. She then went on to see Dr. Muro at [facility] and was found to have symptoms at the level of her CrossLink. Dr. Muro removed her CrossLink, and she initially got betterbut then got worse. She has been seen at [facility], where she had been getting [facility] physical therapy. This has become so problematic for her that she can no longer do the exercises, has presented to the ER multiple times, has stopped being active for things, where she previously placed Lacrosse and did a number of other activities. Her past medical history is significant for von Willebrand's. Of note is that she has required admission prior to surgery with administration of factor and then being kept in the hospital for several days after the surgery for management of her von Willebrand's by Hematology. SOCIAL HISTORY: The patient has a brother and lives with her parents in [place]. Previously played Lacrosse but has had to give this all up. FAMILY HISTORY: Significant for mother with mild scoliosis. PHYSICAL EXAMINATION: Exam today shows a well-developed, well-nourished female who is not in acute distress at this time, although she indicates she is in pain. Evaluation of her stance shows her head is centered over her pelvis. She does have residual scoliotic deformity. She has a well-healed incision with a slightly widened scar, presumably due to multiple reoperations through the same incision. She does have points of exquisite tenderness that correlate with the spinal instrumentation. She does have some left trapezial levator scapulae crossover trigger point that is positive. IMAGING: No new radiographs are obtained. Multiple outside imaging studies are available for review.The most recent scoliosis imaging is from 03/2019. These were seated images and the CrossLink was present at that time. There is a CT scan from 01/27/2020 where the CrossLink is no longer present. In reviewing that scan, it does appear that the fusion mass does appear to be reasonably well- healed withno evidence of obvious pseudoarthrosis or evidence of loosening in terms of halo formation around the hooks or around the screws. There are some persistent facet joint lines, but I think that this is probably okay. There is a small right-sided hemilaminectomy defect, probably consistent with her tethered cord release. It does appear that the caudal extent of her fusion mass has been called L4, it could be called L3. There may be a transitional lumbosacral vertebra that could be complicating the counting. She has a Castellvi-Moe type IIa transitional segment, so numbering may well be variable. ASSESSMENT: Symptomatic spinal instrumentation after fusion for scoliosis in a patient with a history of a tethered cord and Von Willebrand's. PLAN: We had an extended discussion today about her treatment options. Basically, the options are live with what she has or have the instrumentation removed. The challenges with these 2 are that current medical management is not adequately handling her symptomatology. We talked a lot about metal allergies. She does have a history of sensitivity to jewelry, indicating usually a nickel allergy. The instrumentation that she has appears to be titanium screws with cobalt chrome heads and presumably cobalt chrome rods. We do not have the actual implant records, even though we have Dr. Cobos's operative report. The metal type is not specified in the operative records that we have. We talked to issues that exist about implant removal or subsequent recurrence of deformity. This is quoted in the Nely [employer] Matt paper as being around 30%. These were all adult patients, and this occurrence appeared to be at a higher rate in people with sagittal plane issues, as opposed to just coronal plane issues, but it is the best paper that exists, and so we discussed the issue about how toapproach this. If we remove the implants and she does not have recurrence of deformity, then things are good and hopefully this will help improve her symptomatology. If the implants are removed and thedeformity recurs, then she may require revision surgery, and I would consider using all titanium instrumentation at that time. We also discussed the issue about the potential for indolent bacterial colonization/infection with Cutibacterium acnes. The challenge with this is that you have to hold the cultures for 2 weeks, and for most late infection type problems with scoliosis instrumentation, this has been the causative organism. Many patients have presented with this kind of a problem without elevation of C- reactive proteinor sedimentation rate, and so it is not clear that that actually rules it out. I also discussed withthe family the challenge of culturing the wound and the instrumentation and that positivity rates improve with holding the cultures for 2 weeks or using sonication of the instrumentation, although thisis not commonly done. After this extended discussion and the patient and her mom talking about this, Dakota has decided that she would like to move forward. In order to prepare for this, I would like to have her seen by Pediatric Neurosurgery, as she does not appear to have had followup evaluation for her tethered cord, andher description of some of the headaches that she had could potentially be tethered cord type symptoms. I would like to have her see Dr. Eugenio Finney here at the [facility]. We will go ahead and order a lumbar MRI with metallic artifact reduction sequence prior to her seeing him. We will also needto coordinate with Pediatric Hematology, as I fully expect that she will need to be admitted before the surgery to have her von Willebrand factor appropriately adjusted, and then anticipate that she will need a little bit of a longer stay to ensure she does not have a bleeding problem after the surgery as well that would again need to be managed by Hematology. She should have current EOS imaging prior to the surgery. Total contact time for this visit exceeded 45 minutes, of which greater than 50% was spent in counseling them about and coordinating their care. documented in this encounter Nursing Notes Reyna Chávez LPN - 05/05/2020 8:00 AM CDT Reason For Visit: Chief Complaint Patient presents with ??? Consult Scoliosis, referral Dr. Mireille Muro at [facility] but is from [place], records there and at [place] (MRI)and [facility] MD: Clinic, [facility] Medical Ref. MD: Dr. Bhaskar Brink Animal Therapist? No Occupation Student. Date of injury: No Type of injury: No. Date of surgery: Several surgeries Type of surgery: Fusions and hardware removal, refused last February Smoker: No Request smoking cessation information: No Ht 1.638 m (5' 4.49) Wt 54.3 kg (119 lb 9.6 oz) BMI 20.22 kg/m?? Pain Assessment Patient Currently in Pain: Yes 0-10 Pain Scale: 7 Primary Pain Location: Back SRS: 53.3% Oswestry (LOKESH) Questionnaire OSWESTRY DISABILITY INDEX 05/05/2020 Count 9 Sum 27 Oswestry Score (%) 60 Some recent data might be hidden Visual [...] Associated Diagnoses Order S chedule ONC/HEME PEDS REFERRAL Referral Routine Other secondary Or dered: 05/05/2020 scoliosis, thoracolumbar region Tethered cord (H ) History of fusion of spine for scolio sis Acquired von Willebrand disease (H) NEUROSURGERY PEDS Referral Routine Other secondary Expecte d: REFERRAL scoliosis, thoracolumbar 08/2019, region Expires: 05/05/2021 Tethered cord (H ) History of fusion of spine for scolio sis Acquired von Willebrand disease (H) documented as of this encounter Visit Diagnoses Diagnosis History of fusion of spine for scoliosis - Primary Other secondary scoliosis, thoracolumbar region Tethered cord (H) 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
--- OUTSIDE RECORDS SUMMARY | 2022-06-18 12:02 | XMS_ITS | Encounter Summary ---
:2000 Author Organization [place] Address [address] [place] [address] Care Team Providers Name Role Phone Unavailable Primary Care Provider Unavailable Encounter Details Date Type Department Care Team Description 01/28/2009 Office Visit-[facility] [[email or web address] INTERFACE [facility] [[email or web address] DEPT Provider, [facility] Nurs e Social History Tobacco Use Types Packs/Day Years Used Date Smoking Tobacco: Never Assessed Sex Assigned at Date Recorded Female 12/02/2020 1:42 PM CDT documented as of this encounter Progress Notes Provider, [facility] Nurse - 01/28/2009 7:48 AM CDT Per Diem Nurse: Traci Bhakta Status: Final - Signature Encounter: 28 Jan 2009 Type: Nurse Note Talked with pt's mom and let her know results of EGD/colon, US, and cystogram were normal. F/u with Dr. Hooks in 2 weeks. She did not have any questions currently but encouraged to call if any arise. Electronically signed by:Traci Bhakta RN Jan 28 2009 11:06AM FAMILY PROGRAM SPECIALIST documented in this encounter Plan of Treatment Not on filedocumented as of this encounter Visit Diagnoses Not on filedocumented in this encounter
--- OUTSIDE RECORDS SUMMARY | 2022-06-18 12:02 | XMS_ITS | Encounter Summary ---
:2000 Author Organization [place] Address [address] [place] [address] Care Team Providers Name Role Phone System, Provider Not In Primary Care Provider Unavailable Encounter Details Date Type Department Care Team Description 06/20/2011 Hospital Encounter [facility] Milo Najera MD [facility] Laboratory NO INFO FOUND [address] [place] [facility] [place] [facility] [address] [place] [address] Social History Tobacco Use Types Packs/Day Years Used Date Smoking Tobacco: Never Assessed Sex Assigned at Date Recorded Female 12/02/2020 1:42 PM CDT documented as of this encounter Plan of Treatment Not on filedocumented as of this encounter Procedures Procedure Name Priority Date/Time Associated Comments Diagnosis CBC WITH PLATELETS & Routine 06/20/2011 4:20 Resu lts for this DIFFERENTIAL PM AUDIO VISUAL ENGINEER procedure are i n the results section. TISSUE TRANSGLUTAMINASE Routine 06/20/2011 4:20 R esults for this JOSUE IGA AND IGG PM AUDIO VISUAL ENGINEER procedure ar e in the results section. IGA Routine 06/20/2011 4:20 Results for this PM AUDIO VISUAL ENGINEER procedure are i n the results section. ERYTHROCYTE Routine 06/20/2011 4:20 Results for this SEDIMENTATION RATE AUTO PM AUDIO VISUAL ENGINEER proc edure are in the results section. ALT Routine 06/20/2011 4:20 Results for this PM AUDIO VISUAL ENGINEER procedure are i n the results section. ALBUMIN LEVEL Routine 06/20/2011 4:20 Results for this PM AUDIO VISUAL ENGINEER procedure are i n the results section. documented in this encounter Results Erythrocyte sedimentation rate auto (06/20/2011 4:20 PM AUDIO VISUAL ENGINEER) P athologist Signature Sed Rate 3 0 - 15 mm/h [facility] Specimen Anatomical Collection Method Collection Time Receive d Time (Source) Location / / Volume Laterality 06/20/2011 4:20 PM 1 4:32 AUDIO VISUAL ENGINEER PM AUDIO VISUAL ENGINEER Axel Najera MD LAB - BLOOD ORDERABLES Performing Organization Address City/State/ZIP Code Phon e Number [place] [address] [address] [place] [place] [address] [facility] Tissue transglutaminase josue IgA and IgG (06/20/2011 4:20 PM AUDIO VISUAL ENGINEER) [facility] Method Time Signature Tissue <1.0 U/mL [facility] Transglutaminase Interpretation: ??Negative [facility] Antibody IgA CAMPUS LABS Tissue 1.7 U/mL [facility] Transglutaminase Josue [facility] Y IgG CAMPUS LABS Comment: Interpretation: Negative Specimen Anatomical Collection Method Collection Time Receive d Time (Source) Location / / Volume Laterality 06/20/2011 4:20 PM 1 4:32 AUDIO VISUAL ENGINEER PM AUDIO VISUAL ENGINEER Axel Najera MD LAB - BLOOD ORDERABLES Performing Organization Address City/State/ZIP Code Phon e Number [facility] [address] LABS IgA (06/20/2011 4:20 PM AUDIO VISUAL ENGINEER) athologist Signature IGA 128 45 - 235 [facility] mg/dL CAMPUS LABS Specimen Anatomical Collection Method Collection Time Receive d Time (Source) Location / / Volume Laterality 06/20/2011 4:20 PM 1 4:32 AUDIO VISUAL ENGINEER PM AUDIO VISUAL ENGINEER Axel Najera MD LAB - BLOOD ORDERABLES Performing Organization Address City/State/ZIP Code Phon e Number [facility] [address] LABS CBC with platelets differential (06/20/2011 4:20 PM AUDIO VISUAL ENGINEER) [facility] Method Time Signature WBC 7.7 5.0 - [facility] 14.5 [facility] 10e9/L [facility] RBC Count 4.32 3.7 - 5.3 [facility] 10e12/L [facility] Hemoglobin 12.8 10.5 - [facility] 14.[facility] g/dL [facility] Hematocrit 37.3 31.5 - [facility] 43.0 % [facility] MCV 86 70 - 100 [place] fl [facility] MCH 29.6 26.5 - [facility] 33.0 pg [facility] MCHC 34.3 31.5 - [place] 36.5 g/dL [facility] RDW 12.4 10.0 - [facility] 15.0 % [facility] Platelet Count 261 150 - [address] [place] [address] [place] [address] LAB Diff Method Automated [facility] LAB % Neutrophils 42.9 32 - 54 % [facility] % Lymphocytes 46.4 27 - 57 % [facility] % Monocytes 9.1 0 - 10 % [facility] % Eosinophils 1.2 0 - 6 % [facility] % Basophils 0.4 0 - 1 % [facility] % Immature 0.0 0 - 0.4 % [place] Granulocytes [facility] Absolute 3.3 1.3 - 8.1 [place] Neutrophil 10e9/[facility] LAB Absolute 3.6 1.1 - 8.6 [place] Lymphocytes [address] LAB Absolute 0.7 0.0 - 1.1 [place] Monocytes [address] LAB Absolute 0.1 0.0 - 0.7 [place] Eosinophils [address] LAB Absolute 0.0 0.0 - 0.2 [place] Basophils [address] [place] [address] LAB Abs Immature 0.0 0 - 0.03 [place] Granulocytes [address] [place] [address] LAB Specimen Anatomical Collection Method Collection Time Receive d Time (Source) Location / / Volume Laterality 06/20/2011 4:20 PM 1 4:32 AUDIO VISUAL ENGINEER PM AUDIO VISUAL ENGINEER Axel Najera MD LAB - BLOOD ORDERABLES Performing Organization Address City/State/ZIP Code Phon e Number M [facility] [address] [place] [address] [facility] ALT (06/20/2011 4:20 PM AUDIO VISUAL ENGINEER) athologist Signature ALT 26 0 - 50 U/L [facility] Specimen Anatomical Collection Method Collection Time Receive d Time (Source) Location / / Volume Laterality 06/20/2011 4:20 PM 1 4:32 AUDIO VISUAL ENGINEER PM AUDIO VISUAL ENGINEER Axel Najera MD LAB - BLOOD ORDERABLES Performing Organization Address City/State/ZIP Code Phon e Number M [facility] [address] [place], [place] [address] [facility] Albumin level (06/20/2011 4:20 PM AUDIO VISUAL ENGINEER) athologist Signature Albumin 4.5 3.9 - 5.1 [facility] g/dL [facility] Specimen Anatomical Collection Method Collection Time Receive d Time (Source) Location / / Volume Laterality 06/20/2011 4:20 PM 1 4:32 AUDIO VISUAL ENGINEER PM AUDIO VISUAL ENGINEER Axel Najera MD LAB - BLOOD ORDERABLES Performing Organization Address City/[facility]/ZIP Code Phon e Number [place] [facility] [address] [place], [place] [address] [facility] documented in this encounter Visit Diagnoses Not on filedocumented in this encounter Care Teams Face Cleaner Relationship Specialty Start Date End Date System, Provider Not In PCP - General 06/20/11 409/18 documented as of this encounter
--- OUTSIDE RECORDS SUMMARY | 2022-06-18 12:02 | XMS_ITS | Encounter Summary ---
:2001 Author Organization [place] Address [address] [place] [address] Care Team Providers Name Role Phone Unavailable Primary Care Provider Unavailable Encounter Details Date Type Department Care Team Description 02/03/2009 Office Visit-[facility] Jerad Hooks MD [facility] [address] [facility] [address] [facility] [address] [place] [address] [address] [place] [address] Social History Tobacco Use Types Packs/Day Years Used Date Smoking Tobacco: Never Assessed Sex Assigned at Date Recorded Female 12/02/2020 1:42 PM CDT documented as of this encounter Progress Notes Jerad Hooks - 02/03/2009 10:04 AM CDT Couturiere: Jerad Hooks Status: Final - Signature Encounter: 03 Feb 2009 Type: Peds GI Chart Note I received a call from Dakota previous PMD Dr. Gibbs re: Dakota. It appears that there was a significant amount of confabulation in the history that I heard. 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 Gibbs, Dr Schwarz - gabe ID didn't recommend it, but mom attempted to persuade both Dr. Schwarz private secretary and Dr. Gibbs that she did, and finally a report of Dakota undergoing [facility] ([email or web address]). In addition mom still suggests that Dakota isfollowed by Dr. Gibbs, but in fact she transferred Dakota's care to [facility] about ayear ago, and at some point saw both Dr. Gibbs and at [facility] at the same time. Dr. Gibbs have reported these incidents to the [facility] authorities, however he is not aware about any actions so far. I am plannin gto repoirt this incident to child protection service at the to help investigation. t8 Electronically signed by:Jerad Hooks M.D. Feb 03 2009 10:12AM MOBILE EQUIPMENT MECHANIC Electronically signed by:Maikel MENDOZA MD Feb 03 2009 2:14PM MOBILE EQUIPMENT MECHANIC Review documented in this encounter Plan of Treatment Not on filedocumented as of this encounter Visit Diagnoses Not on filedocumented in this encounter
--- OUTSIDE RECORDS SUMMARY | 2022-06-18 12:02 | XMS_ITS | Encounter Summary ---
:2001 Author Organization [place] Address [address] [facility] [place] [address] Care Team Providers Name Role Phone Unavailable Primary Care Provider Unavailable Encounter Details Date Type Department Care Team Description 01/21/2009 GI Procedure [facility] Mabel Hook[place] [address] [place] [address] [place] [address] [place] [address] (Wo rk) Social History Tobacco Use Types Packs/Day Years Used Date Smoking Tobacco: Never Assessed Sex Assigned at Date Recorded Female 12/02/2020 1:42 PM CDT documented as of this encounter Plan of Treatment Not on filedocumented as of this encounter Procedures Procedure Name Priority Date/Time Associated Diagnosis Comme nts UPPER GI ENDOSCOPY Routine 01/21/2009 11:35 AM Re sults for this CDT procedure are i n the results section. COLONOSCOPY Routine 01/21/2009 11:30 AM Results for this CDT procedure are i n the results section. documented in this encounter Results UPPER GI ENDOSCOPY (01/21/2009 11:35 AM CDT) Component Value Ref Test Analysis Performed At [facility] Method Time Signature Upper GI [facility] RADIOLOGY Endoscopy Endoscopy Department[facility] RESULTS Patient Name: Dakota Casiano ?Gender: F ? Procedure Date: 01/21/2009 11 :35:00 AM ? Date of : 2000 ? Age: 8 ? Admit Type: Outpatient ? Note Status: Finalized ?Attending MD: Jerad Hooks MD ? Pause For The Cause: Pause for the ca Procedure: ? Upper GI endoscopy Indications: ? Abdominal pain Providers: ? Jerad Hooks MD, Berna Pennington MD: ? Medicines: ? General Anesthesia Complications: ? No immediate complications Procedure: ? - Prior to the procedure, a History and Physical was ? performed, and patient medication allergies were ? reviewed. The patient is unable to give consent ? secondary to the patient being a minor. The risks and ? benefits of the procedure and the sedation options and ? risks were discussed with the patient's parent. All ? questions were answered and informed consent was ? obtained. Patient identification and proposed procedure ? were verified by the physician, the nurse and the ? cooler tender in the procedure room. Mental Status ? Examination: sedated. Airway Examination: normal ? oropharyngeal airway and neck mobility. Respiratory ? Examination: clear to auscultation. CV Examination: ? normal. ASA Grade Assessment: I - A normal, healthy ? patient. After reviewing the risks and benefits, the ? patient was deemed in satisfactory condition to undergo ? the procedure. The anesthesia plan was to use general ? anesthesia. Immediately prior to administration of ? medications, the patient was re-assessed for adequacy to ? receive sedatives. The heart rate, respiratory rate, ? oxygen sa turations, blood pressure, adequacy of ? pulmonary ventilation, and response to care were ? monitored throughout the procedure. The physical status ? of the patient was re-assessed after the procedure. ? After obtaining informed consent, the endoscope was ? passed under direct vision. Throughout the procedure, ? the patie nt's blood pressure, pulse, and oxygen ? saturations were monitored continuously. The Endoscope ? was introduced through the mouth, and advanced to the ? third part of duodenum. The upper GI endoscopy was ? accomplished without difficulty. The patient tolerated ? the procedure well. ? Findings: ? No gross lesions were noted in the entire esophagus with the exception ? of mild esophagitis just above LES. Biopsies were alan en with a cold ? forceps for histology. No gross lesions were noted in the entire ? examined stomach. Bio psies were taken with a cold forceps for histology. ? No gross lesions were noted in the entire exami james duodenum. Biopsies ? were taken with a cold forceps for histology. ? Impression: ?- No gross lesions in esophagus. ? - No gross lesions in stomach . ? - No gross lesions in duodenu m. Recommendation: ?- Await pathology results. ? Jerad Hooks MD Signed Date: 01/21/2009 12:13:34 PM Number of Addenda: 0 Note initiated on 01/21/2009 11:33:31 AM Upper GI RADIOLOGY Endoscopy RESULTS Specimen (Source) Anatomical Collection Method Collection Time Re ceived Time Location / / Volume Laterality 01/21/2009 11:35 AM CDT Jerad Hooks MD PROCEDURES Performing Organization Address City/State/ZIP Code Phon e Number RADIOLOGY RESULTS COLONOSCOPY (01/21/2009 11:30 AM CDT) [facility] Method Time Signature COLONOSCOPY [facility] RADIOLOGY Endoscopy Department[facility] RESULTS Patient Name: Dakota Casiano ?Gender: F ? Procedure Date: 01/21/2009 11 :30:00 AM ? Date of : 2000 ? Age: 8 ? Admit Type: Outpatient ? Note Status: Finalized ?Attending MD: Jerad Hooks MD ? Pause For The Cause: Pause for the ca Procedure: ? Colonoscopy Indications: ? Abdominal pain Providers: ? Jerad Hooks MD, Berna Pennington MD: ? Medicines: ? General Anesthesia Complications: ? No immediate complications Procedure: ? - Prior to the procedure, a History and Physical was ? performed, and patient medication allergies were ? reviewed. The patient is unable to give consent ? secondary to the patient being a minor. The risks and ? benefits of the procedure and the sedation options and ? risks were discussed with the patient's parent. All ? questions were answered and informed consent was ? obtained. Patient identification and proposed procedure ? were verified by the physician, the nurse and the ? cooler tender in the procedure room. Mental Status ? Examination: sedated. Airway Examination: normal ? oropharyngeal airway and neck mobility. Respiratory ? Examination: clear to auscultation. CV Examination: ? normal. ASA Grade Assessment: I - A normal, healthy ? patient. After reviewing the risks and benefits, the ? patient was deemed in satisfactory condition to undergo ? the procedure. The anesthesia plan was to use general ? anesthesia. Immediately prior to administration of ? medications, the patient was re-assessed for adequacy to ? receive sedatives. The heart rate, respiratory rate, ? oxygen sa turations, blood pressure, adequacy of ? pulmonary ventilation, and response to care were ? monitored throughout the procedure. The physical status ? of the patient was re-assessed after the procedure. ? After obtaining informed consent, the colonoscope was ? passed under direct vision. Throughout the procedure, ? the patie nt's blood pressure, pulse, and oxygen ? saturations were monitored continuously. The Colonoscope ? was introduced through the anus and advanced to the ? ileum. The colonoscopy was performed with ease. The ? patient tolerated the procedu re well. ? Findings: ? The perianal and digital rectal examinations were nor mal. The colon ? (entire examined portion) appeared normal. Biop sies were taken with a ? cold forceps for hist ology. The terminal ileum appeared normal. Biopsies ? were taken with a cold forceps for histology. ? Impression: ?- The colon is normal. This was bi opsied. ? - The terminal ileum is normal. This was biopsied. Recommendation: ?- Await pathology results. ? Jerad Hooks MD Signed Date: 01/21/2009 12:00:46 PM Number of Addenda: 0 Note initiated on 01/21/2009 11:32:42 AM COLONOSCOPY RADIOLOGY RESULTS Specimen (Source) Anatomical Collection Method Collection Time Re ceived Time Location / / Volume Laterality 01/21/2009 11:30 AM CDT Jerad Hooks MD PROCEDURES Performing Organization Address City/State/ZIP Code Phon e Number RADIOLOGY RESULTS documented in this encounter Visit Diagnoses Not on filedocumented in this encounter
--- OUTSIDE RECORDS SUMMARY | 2022-06-18 12:03 | XMS_ITS | Encounter Summary ---
:2000 Author Organization [place] Address [address] [place] [address] Care Team Providers Name Role Phone Unavailable Primary Care Provider Unavailable Encounter Details Date Type Department Care Team Description 08/18/2004 Historic Results INTERFACED REPORT Barak Hernandez MD ENT SPECIALTY [place] [address] [place], [place] [address] (Wo rk) Social History Tobacco Use Types Packs/Day Years Used Date Smoking Tobacco: Never Assessed Sex Assigned at Date Recorded Female 12/02/2020 1:42 PM CDT documented as of this encounter Plan of Treatment Not on filedocumented as of this encounter Procedures Procedure Name Priority Date/Time Associated Diagnosis Comme [facility] HISTOPATHOLOGY Routine 08/18/2004 12:00 AM Result s for this SUPERVISOR OF WAY procedure are i n the results section . documented in this encounter Results Histopathology (08/18/2004 12:[address]) Component Value Ref Test Analysis Performed At [facility] Range Method Time Signature Copath Report CASE: [id number] ^ COPATH MR#: [id number] Patient Name: DAKOTA VASQUEZ. Collected: 08/18/2004 Received: 08/21/2004 Reported: 08/21/2004 18:02 Ordering Phy(s): RIAZ HERNANDEZ Additional Phy(s): CHELSEY ROJAS SPECIMEN(S): Bilateral tonsils FINAL DIAGNOSIS: Right and left palatine tonsils--hypertrophy. Electronically signed out by: Kali Durham M.D. CLINICAL HISTORY: Hypertrophy of tonsils; chronic otitis media. GROSS: The specimen, labeled bilateral tonsils, consists of two p alatine tonsils, together weighing 3 gm and they measure 2.4 and 2.2 cm in greatest dimension. ??They have a smooth surface and firm, p reviously fixed uniform lymphoid tissue on the cut surface. ??No secti ons. ??Twila MICROSCOPIC: No microscopic sections made. Twila 08-21-04 Specimen (Source) Anatomical Collection Method Collection Time Re ceived Time Location / / Volume Laterality 08/18/2004 08/21/2004 6:[address] Riaz Hernandez MD LAB - COP[facility] SPECIAL DIAG OR DERABLES Performing Organization Address City/State/ZIP Code Phon e Number COPATH documented in this encounter Visit Diagnoses Not on filedocumented in this encounter
--- OUTSIDE RECORDS SUMMARY | 2022-06-18 12:03 | XMS_ITS | Encounter Summary ---
:2000 Author Organization [facility] Address [address], [place] [address] Care Team Providers Name Role Phone No Primary/Referring, Phy Primary Care Provider Unavailable Reason for Referral Procedure/Equipment (Routine) - Incomplete Specialty Diagnoses / Procedures Referred By Contact Refer red To Contact Procedures Ramon Lo MD XR Thoracic Spine 3 Views [address] [place] [address] Referral ID Status Reason Start Date Expiration Date Visits V isits Requested Authorized [id number] Incomplete 05/12/2019 08/10/2020 1 1 Procedure/Equipment (Routine) - Incomplete Specialty Diagnoses / Procedures Referred By Contact Refer red To Contact Procedures Ramon Lo MD XR Cervical Spine [address] [place] [address] Referral ID Status Reason Start Date Expiration Date Visits V isits Requested Authorized [id number] Incomplete 05/12/2019 08/10/2020 1 1 Reason for Visit Reason Comments Back Pain Encounter Details Date Type Department Care Team Description 05/11/2019 - Emergency [facility] Emergency [facility] Ramon Lo MD Acute bilateral thoracic back pain (Prim veronica Dx); 05/12/2019 640 [facility]. 640 [facility] Anemia due to unknown mechanism; [place] [address] [place], [place] Lordosis; [phone] Fixation hardware in spine; [phone] H/O spinal fusi on (Work) Social History Tobacco Use Types Packs/Day Years Used Date Smoking Tobacco: Never Smokeless Tobacco: Never Sex Assigned at Date Recorded Not on file documented as of this encounter Last Filed Vital Signs Vital Sign Reading Time Taken Comments Blood Pressure 97/49 05/12/2019 2:30 AM CDT Pulse 104 05/11/2019 10:25 PM CDT Temperature 37 ??C (98.6 ??F) 05/11/2019 10:25 PM CDT Respiratory Rate 16 05/11/2019 10:25 PM CDT Oxygen Saturation 99% 05/11/2019 10:25 PM CDT Inhaled Oxygen Concentration - - Weight - - Height - - Body Mass Index - - documented in this encounter Discharge Instructions Discharge InstructionsWeGabby arvizu - 05/12/2019 2:12 AM CDT Return to the Emergency Department immediately if you develop fever >100.4 degrees F, worsening pain, inability to walk, urinary incontinence, fecal incontinence, numbness or tingling, or other new or concerning symptoms. Please follow up with your esther surgeon in the morning regarding back pain. Thank you for choosing [facility] for your care. It was a pleasure taking care of you today [facility] Emergency Department. documented in this encounter Medications at Time of Discharge Medication Sig Dispensed Refills Start Date End Date gabapentin (NEURONTIN) 300 Take 300 mg by mouth 3 11/24/2018 MG capsule three times a day. JUNEL 08/24 1-20 MG-MCG Take 1 Tablet by 3 019 tablet mouth daily. loratadine (AKA CLARITIN) Take 10 mg by mouth 0 0 03/31/2012 10 MG tablet daily (every 24 hours). omeprazole (PRILOSEC) 20 Take 20 mg by mouth 0 MG capsule daily (every 24 hours). sertraline (ZOLOFT) 100 MG TAKE 1 TABLET BY 1 tablet MOUTH DAILY X30 DAYS: SCHEDULE APPT [phone] documented as of this encounter ED Notes Reyna Morales RN - 05/12/2019 2:39 AM CDT [facility] ED Nursing Discharge Note Patient discharged: to Home. Patient accompanied by: parent. Transported by: Wheelchair Valuables were taken home by patient: Yes Work/School Slip given: No Discharge instructions given and explained to patient: Yes Discharge prescriptions explained to patient: No Patient verbalized understanding. Yes Patient level of pain on discharge: 02/11 Patients condition on discharge related to chief complaint and treatment in ED: stable Holds documented by nursing during this visit, please review chart for most current hold status: No orders of the defined types were placed in this encounter. ---End of Report--- Racheal Munoz - 05/12/2019 12:24 AM CDT Pt ambulatory to bathroom to give urine sample for UPT. Pt reports slight dizziness, is able to walk. Pt ambulatory to x-ray. Gabby Ring - 05/11/2019 11:54 PM CDT [facility] Emergency Medicine Visit Note Chief Complaint: Back Pain HPI 18-year-old female with history significant for scoliosis status post spinal fusion in February presenting with worsening thoracic spine pain over the past couple days. Mom also reports that patient has been sleeping more during the day, crying much of the day. Has tried Tylenol and Flexeril at home without any help. Patient has also had low-grade fevers, highest 100.1 yesterday, and chills. She had someleft-sided numbness yesterday, so since resolved. She also thinks that her gait is different, like her left side droops down more, and her mother thinks she is limping. She is also complaining of ???heart pain?? , ongoing for some time, localized anterior to location of her spinal pain. Denies any nausea, vomiting, dyspnea, abdominal pain, urinary or fecal incontinence, extremity weakness. Patient's mother called the clinic today, who said if symptoms continue to get worse, to come to emergency department. 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 The symptoms that she had then were similar to her symptoms now. In addition to the above, I have personally reviewed any medications, allergies, problem list, medical history, surgical history and social history in the health record as of this visit. Review of Systems A complete review of systems was performed and is otherwise negative. Triage Vitals [05/11/19 2225] Temp 98.6 ??F (37 ??C) Temp src Oral Pulse 104 Resp 16 BP 132/79 SpO2 99 % Physical Exam General: comfortable appearing, in NAD, accompanied by mother and friends Eyes: pupils mid-sized, sclera normal appearing ENMT: oropharynx normal appearing, MMM Respiratory: normal work of breathing, chest clear with equal lung sounds bilaterally, no wheezes orcrackles Cardiovascular: RRR, systolic murmur best heart at LUSB, peripheral pulses 2+ bilaterally, LEs without edema GI: abdomen soft, non-distended, and non-tender, no peritoneal findings Musculoskeletal: head atraumatic, no bony deformity, normal ROM of extremities, no chest wall tenderness, normal ROM of neck, midline scar runs from base of neck to low lumbar spine, tender surroundingthoracic spine, both midline and lateral to midline. Small nodule palpated under the skin just to the right of midline thoracic spine. Gait appears normal to me, however per mother, it looks different. 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 VSS, exam as above. Appears neurovascularly intact. Concern for hardware issue or infection such as discitis or osteomyelitis, or infected hardware. Will obtain CBC, procalcitonin, CRP, UPT, and plain films of thoracic and cervical spine to further evaluate. Oxycodone given for pain. Gabby Ring MD ED Course as of May 13 519 Tue May 12, 2019 0028 HCG, Urine: Negative [CW] 0028 EKG: Normal sinus rhythm, normal intervals, early repolarization, no acute ischemic changes. Overall reassuring EKG. ECG 12-Lead STAT [CW] 0104 There are Flores rods from the T3 through the L4 levels. Hardware appears grossly intact without evidence of fracture or hardware loosening. Underlying dextroconvex curvature with an apex in the lower thoracic region. No acute fracture or subluxation identified. XR Thoracic Spine 3 Views [CW] 0105 Cervical vertebra are normal in height. There is nonspecific generalized reversal of lordosis above the C6-7 level but alignment is grossly normal. Disc spaces are well-maintained. No acute fracture or subluxation. Prevertebral tissues are within normal limits. XR Cervical Spine 3 Views [CW] 0126 CBC with mild anemia, normocytic. Otherwise no acute derangements. Complete Blood Count-No Diff(!) [CW] 0143 C-Reactive Protein: <0.1 [CW] 0206 All labs reviewed, generally reassuring. With normal inflammatory markers, low suspicion for infection. Patient's pain improved some after analgesia. Patients mother feels comfortable going home and following up with her surgeon tomorrow. Return precautions given, all questions and concerns addressed. Patient discharged from ED in stable condition. [CW] ED Course User Index [CW] Gabby Ring MD Clinical Impressions as of May 13 519 Acute bilateral thoracic back pain Reyna Morales RN - 05/11/2019 11:49 PM CDT Report received at bedside from Lynnette Vazquez RN. Pt resting in bed. Family and friends at bedside. Denies any needs at this time. When asked about pain pt shrugged. Ramon Lo MD - 05/11/2019 11:24 PM CDT [facility] Emergency Department Attending Supervision Note ? I performed the ren elements of history and exam, and agree with resident's findings and plan of care as discussed with resident physician Dr. Gabby Ring. ?? I have reviewed and agreed with the [facility], FH, SOC, ROS. Please see today's note by resident physician. ?? Assessment and Plan: Dakota Casiano is a 18 year(s) 9 month old year old female presenting with back pain and concern for hardware failure. This is a complex patient with history of spinal fusion and history of hardware failure. X-rays do not reveal any hardware failure today. Labs unremarkable. Etiology for this subacute atraumatic pain is unclear but does not appear to be acute morbid premorbid pathology. Recommend follow up with her neurosurgeon as an outpatient ? Author: Ramon Lo MD Monique Angelo RN - 05/11/2019 11:20 PM CDT Report to RUTH Blank Monique Angelo RN - 05/11/2019 10:52 PM CDT Agree with initial note, pt c/o upper back pain, ongoing since surgery in February but worse for last 2 days. Mom reports pt didn't go to school today due to pain. Denies numbness/tingling. Pt ambulatory to E7 and able to sit up in bed for assessment. Surgical scar to spine. Small raised area to thoracic spine, tender to touch. No redness, no fevers. documented in this encounter Plan of Treatment Not on filedocumented as of this encounter Procedures Procedure Name Priority Date/Time Associated Comments Diagnosis PROCALCITONIN Routine 05/12/2019 12:39 Results fo r this AM CDT procedure are i n the results section. COMPLETE BLOOD COUNT-NO STAT 05/12/2019 12:39 Results for this DIFF AM CDT procedure are i n the results section. C-REACTIVE PROTEIN STAT 05/12/2019 12:39 Resul ts for this AM CDT procedure are i n the results section. XR THORACIC SPINE 3 VIEWS STAT 05/12/2019 12:33 Results for this AM CDT procedure are i n the results section. XR CERVICAL SPINE 3 VIEWS STAT 05/12/2019 12:33 Results for this AM CDT procedure are i n the results section. POCT URINE Routine 05/12/2019 12:25 Res ults for this AM CDT procedure are i n the results section. [id number] ELECTROCARDIOGRAM STAT 05/12/2019 12:19 Results for this TRACING AM CDT procedure are i n the results section. documented in this encounter Results (ABNORMAL) Complete Blood Count-No Diff (05/12/2019 12:39 AM CDT) Analysis Performed At Patho logist Time Signature WBC 6.0 3.5 - 10.5 05/12/2019 [facility] x10(9)/L 1:13 AM CDT [facility]OSPITAL RBC 3.93 3.90 - 05/12/2019 [facility] 5.03 1:13 AM CDT [facility]OS[facility]ITAL x10(12)/L Hemoglobin 11.5 (L) 12.0 - 05/12/2019 [facility] 15.5 g/dL 1:13 AM CDT [facility]OS[facility]ITAL HCT 35.3 34.9 - 05/12/2019 [facility] 44.5 % 1:13 AM CDT [facility]OSPITAL MCV 89.8 80.0 - 05/12/2019 [facility] 100.0 fL 1:13 AM CDT [facility]OSPITAL MCH 29.3 27.6 - 05/12/2019 [facility] 33.3 pg 1:13 AM CDT [facility]OSPITAL MCHC 32.6 31.5 - 05/12/2019 [facility] 35.2 g/dL 1:13 AM CDT [facility]OSPITAL RDW 11.9 11.9 - 05/12/2019 [facility] 15.5 % 1:13 AM CDT [facility]OSPITAL Platelets 254 150 - 450 05/12/2019 [facility] x10(9)/L 1:13 AM CDT [facility]OSPITAL Automated NRBC 0 <=0 /100 05/12/2019 [facility] WBC 1:13 AM CDT [facility]OSPITAL Specimen Anatomical Collection Method / Collection Time Recei donal Time (Source) Location / Volume Laterality Blood Venipuncture / 05/12/2019 12:39 9 1:00 Unknown AM CDT AM CDT Ramon Lo MD LAB_1 Performing Organization Address City/State/ZIP Code Phon e Number [address] [address] Procalcitonin (05/12/2019 12:39 AM CDT) P athologist Signature Procalcitonin <0.02 <=0.24 05/12/2019 [facility] ng/mL 1:53 AM CDT HOSPITAL Specimen Anatomical Collection Method / Collection Time Recei donal Time (Source) Location / Volume Laterality Blood Venipuncture / 05/12/2019 12:39 9 1:00 Unknown AM CDT AM CDT [facility] - 05/12/2019 1:53 AM CD T Differential Diagnosis of Lower Respiratory Tract Infection <0.10: Indicates absence of bacterial in fections. Use of antibiotics strongly discouraged. 0.10-0.24: Bacterial infection unlikely. Use of antibiotics is discouraged. 0.25-0.49: Bacterial infection possible. Antibiotic treatment is recommended. >= 0.50: Suggestive of the presence of b acterial infection. Antibiotic treatment is strongly recommended. Differential Diagnosis of Systemic Bacte rial Infection <0.50: Systemic infection is not likely. Local bacterial infection is possible. Low risk for progression to severe systemic infection. 0.50-1.99: Systemic infection possible, but various conditions are also known to induce Procalcitonin. Moderate risk for progression to severe systemic infection. The patient should be closely monitored both clinically and by reassessing Proc alcitonin levels within 6-24 hours. 2.0-9.99: Systemic infection is likely, unless other causes are known. High risk for progression to severe systemic infection. >= 10.00: Important systemic inflammator y response, almost exclusively due to severe bacterial sepsis or septic shock. High likelihood of severe sepsis or septic shock. Clinicans should use the PCT clinical re sults in conjunction with other laboratory findings and clinical signs and should interpret the PCT results in the context of the patient's clinical situation. Ramon Lo MD LAB_1 Performing Organization Address [place] [facility] [place] [address] [address] C-Reactive Protein (05/12/2019 12:39 AM CDT) P athologist Signature C-Reactive <0.1 0.0 - 0.7 05/12/2019 [facility] Protein mg/dL 1:32 AM CDT HOSPITAL Specimen Anatomical Collection Method / Collection Time Recei donal Time (Source) Location / Volume Laterality Blood Venipuncture / 05/12/2019 12:39 9 1:00 Unknown AM CDT AM CDT Ramon Lo MD LAB_1 Performing Organization Address City/State/ZIP Code Phon e Number [address] [address] XR Thoracic Spine 3 Views (05/12/2019 12:33 AM CDT) Anatomical Region Laterality Modality Spine, T-Spine Computed Radiography Specimen (Source) Anatomical Collection Method Collection Time Re ceived Time Location / / Volume Laterality 05/12/2019 12:33 AM CDT Narrative 05/12/2019 12:53 AM CDT EXAM: XR THORACIC SPINE 3 VIEWS LOCATION: [facility] DATE/TIME: 05/12/2019 12:33 AM INDICATION: Pain, s/p fusion COMPARISON: 09/03/2018 IMPRESSION: There are Flores rods fr om the T3 through the L4 levels. Hardware appears grossly intact without evidence of fracture or hardware loosening. Underlying dextroconvex curvature with an ape x in the lower thoracic region. No acute fracture or subluxation identified. Procedure Note Julian Rushing MD - 05/12/2019Formatt ing of this note might be different from the original. EXAM: XR THORACIC SPINE 3 VIEWS LOCATION: [facility] DATE/TIME: 05/12/2019 12:33 AM INDICATION: Pain, s/p fusion COMPARISON: 09/03/2018 IMPRESSION: There are Flores rods fr om the T3 through the L4 levels. Hardware appears grossly intact without evidence of fracture or hardware loosening. Underlying dextroconvex curvature with an apex in the lower thoracic region. No acute fracture or skinner bluxation identified. Ramon Lo MD RAD GD XR Cervical Spine 3 Views (05/12/2019 12:33 AM CDT) Anatomical Region Laterality Modality Spine, C-Spine, Neck Computed Radiograph y Specimen (Source) Anatomical Collection Method Collection Time Re ceived Time Location / / Volume Laterality 05/12/2019 12:33 AM CDT Narrative 05/12/2019 12:53 AM CDT EXAM: XR CERVICAL SPINE 3 VIEWS LOCATION: [facility] DATE/TIME: 05/12/2019 12:33 AM INDICATION: Pain, s/p fusion COMPARISON: 09/15/2018 IMPRESSION: Cervical vertebra are normal in height. There is nonspecific generalized reversal of lordosis above the C6-7 level but alignment is grossly normal. Disc spaces are well-maintained. No acute fracture or subluxation. Prevertebral ti ssues are within normal limits. Procedure Note Julian Rushing MD - 05/12/2019Formatt ing of this note might be different from the original. EXAM: XR CERVICAL SPINE 3 VIEWS LOCATION: [facility] DATE/TIME: 05/12/2019 12:33 AM INDICATION: Pain, s/p fusion COMPARISON: 09/15/2018 IMPRESSION: Cervical vertebra are normal in height. There is nonspecific generalized reversal of lordosis above the C6-7 level but alignment is grossly normal. Disc spaces are well-maintained. No acute fracture or subluxation. Prevertebral tissues are wi thin normal limits. Ramon Lo MD RAD GD POCT urine (05/12/2019 12:25 AM CDT) Analysis Performed At Patho logist Time Signature Urine Negative POCT Test - POC Control Line Yes POCT Present, Clear Background - Internal control Cartridge Lot# [id number] POCT Specimen (Source) Anatomical Collection Method Collection Time Re ceived Time Location / / Volume Laterality Urine 05/12/2019 12:25 AM CDT Ramon Lo MD ET POINT OF CARE TEST ENTER/ EDIT ORDERABLES Performing Organization Address City/State/ZIP Code Phon e Number POCT ECG 12-Lead STAT (05/12/2019 12:19 AM CDT) P athologist Signature Ventricular Rate 69 BPM [facility] Atrial Rate 69 BPM [facility] P-R Interval 136 ms [facility] QRS Duration 94 ms [facility] QT 402 ms [facility] QTc 430 ms [facility] P [place] 25 degrees [facility] R [place] 90 degrees MUSE [facility] T [place] 66 degrees [facility] Specimen (Source) Anatomical Collection Method Collection Time Re ceived Time Location / / Volume Laterality 05/12/2019 12:19 AM CDT Narrative [facility] - 05/16/2019 1:24 PM CDT Sinus rhythm with sinus arrhythmia Rightward axis Early repolarization Borderline ECG No previous ECGs available Confirmed by MD CHAPMAN GLENN ([id number]) on 05/16/2019 1:24:47 PM Procedure Note Estrada Chapman MD - 05/16/2019Formatt ing of this note might be different from the original. Sinus rhythm with sinus arrhythmia Rightward axis Early repolarization Borderline ECG No previous ECGs available Confirmed by MD CHAPMAN GLENN ([id number]) on 05/16/2019 1:24:47 PM Ramon Lo MD EKG Performing Organization Address City/State/ZIP Code Phon e Number [facility] [address] [place] [address] documented in this encounter Visit Diagnoses Diagnosis Acute bilateral thoracic back pain - Gypsy cunha Anemia due to unknown mechanism Anemia, unspecified Lordosis Lordosis (acquired) (postural) Fixation hardware in spine Other postprocedural status H/O spinal fusion Arthrodesis status Triage Assessment Note - Vandana Shelby RN - 05/11/2019 10:29 PM CDT Pt here with mom. Pt has a long hx of back issues and at the end of February had her entire spine fused.Pt is a [place] pt. Pt here today with pain in the upper thoracic area. Mom states there is a bulgein the area and has a hx of hardware rejection. Pt last had tylenol at 2029. documented in this encounter Administered Medications Inactive Administered Medications - up to 3 most recent administrations Medication Order MAR Action Action Date Dose Rate Site oxyCODONE (ROXICODONE) immediate Given 05/12/2019 12:00 AM CDT 5 mg release tablet 5 mg 5 mg, Oral, ONCE, On Sat05/12/19 at 0015, For 1 dose documented in this encounter Active and Recently Administered Medications Times are shown in CDT. Scheduled Medication Order 05/10/2019 05/11/2019 05/12/2019 oxyCODONE (ROXICODONE) immediate release tablet 5 mg (COMPLETED) 0000 (Given - Provider: Reyna Morales RN) 5 mg, Oral, ONCE, Sat05/12/19 at 0015, For 1 dose documented in this encounter Care Teams Health Education Teacher Relationship Specialty Start Date End Date No Primary/Referring, Phy PCP - General 05/11/19 documented as of this encounter
--- OUTSIDE RECORDS SUMMARY | 2022-06-18 12:03 | XMS_ITS | Encounter Summary ---
:2001 Author Organization [facility] Address [address] [place] [address] Care Team Providers Name Role Phone Unavailable Primary Care Provider Unavailable Encounter Details Date Type Department Care Team Description 08/19/2004 Emergency room New Luna MD [address] [place], [place] [address] (Wo rk) Social History Tobacco Use Types Packs/Day Years Used Date Smoking Tobacco: Never Assessed Sex Assigned at Date Recorded Female 12/02/2020 1:42 PM CDT documented as of this encounter ED Notes New Luna - 08/19/2004 12:00 AM ROLL FILLER : 01 CHIEF COMPLAINT: Vomiting. HISTORY OF PRESENT ILLNESS: Dakota Vasquez is a 4-year-old young lady had a tonsillectomy and adenoidectomy on 08/18/04. She was out of the OR approximately 6:00 or 6:30 p.m. last evening. She did not drink prior to being discharged home. The ear, nose and throat physician wanted to admit her overnight for I.V. fluids, but mother was very insistent that she wanted to take her home. Dakota slept when she first went home, she had been receiving morphine apparently in postop. She awakened approximately 2:00 a.m. vomiting and has been vomiting essentially ever since that time. She has been unable to keep anything down. She has not had any urine output, mother thinks, in more than 24 hours. She also had ear tubes yesterday. PAST MEDICAL HISTORY: Recent T&A and ear tubes. ALLERGIES: None are known. MEDICATIONS: Amoxicillin and Percocet elixir. It is uncertain whether she has actually kept any doses down. REVIEW OF SYSTEMS: See HPI. PAST MEDICAL HISTORY: Above, all other systems are negative. SOCIAL HISTORY: Lives with her parents. PHYSICAL EXAM: Temp. 99.4 rectally, respiratory rate 20, heart rate 136, O2 sat. 99% on room air, weight is 12.5 kilograms. The child is pale, she is awake and fairly cooperative. HEAD - atraumatic. NECK - supple without nodes or masses. ENT - tympanic membranes are bilaterally dull. There is a slight amount of redness there, this is likely secondary to the surgery. Mouth is dry, posterior pharynx is consistent with day 1 postop T&A. The area is slightly swollen and there are some thick scabs. NOSE - clear. There is no bleeding at this time. LUNGS - clear to auscultation, breath sounds equal bilaterally. CARDIOVASCULAR - regular rate and rhythm, no murmur is noted. ABDOMEN - soft, nontender, no hepatosplenomegaly, no palpable masses. Abdominal skin turgor is markedly diminished. NEURO - there was no focality, the child, however, is very quiet. She is awake, appears to be appropriately alert, can answer some questions. She, however, is very quiet for a child of 4 years of age. SKIN - no rashes, bruises, petechiae and no jaundice. COURSE IN ER: Clinical impression is that the child is significantly dehydrated, she has had no urine output in a prolonged period of time, and she has had no oral intake in over 24 hours now. We placed an I.V. and gave her 20 cc/kilo fluid flush over 30 minutes followed by a second 20/kilo over 30 minutes, and gave her Zofran 1.5 mg I.V. for nausea. I did also give her a dose of Rocephin 625 mg or 50/kilo I.V. Accu-Chek was 95 mg%, white count is elevated at 15,700, 66% neutrophils, 25% lymphocytes. A blood culture was obtained. Sodium 138, potassium 4.3, chloride 101, bicarb 27, glucose 96, BUN 12, and creatinine 0.3. These are relatively within normal limits. Even after two fluid flushes, the child did not void any urine. I spoke with Dr. Gibbs and explained the situation. I feel the child requires admission overnight for I.V. fluids and to establish oral intake better. Dr. Gibbs will admit the patient, I have written bridging orders. We spoke with Dr. José Miguel Tillmna who is heritage consultant for Dr. Ruiz, ENT who did the surgery. Dr. Tillman is aware and will check the patient tomorrow. DIAGNOSES: 1. Dehydration secondary to vomiting and poor oral intake. 2. Vomiting post tonsillectomy and adenoidectomy from 08/18/04. [id number] _ NWE LUNA MD [place]: Document: [id number] [place], [place] Name: MR#: [id number] EMERGENCY ROOM ENCOUNTER Page 2 of 2 LCN: SILVESTRE DSC: [place], [place] Name: MR#: [id number] : Admit Date: Account #: 2001 08/19/2004 [id number] Doctor: NEW LUNA MD EMERGENCY ROOM ENCOUNTER Page 1 of 2 documented in this encounter Plan of Treatment Not on filedocumented as of this encounter Visit Diagnoses Not on filedocumented in this encounter
--- OUTSIDE RECORDS SUMMARY | 2022-06-18 12:03 | XMS_ITS | Encounter Summary ---
:2001 Author Organization [facility] Address [address] [place] [address] Care Team Providers Name Role Phone Unavailable Primary Care Provider Unavailable Encounter Details Date Type Department Care Team Description [facility]09[facility] Special[facility] [address] [address] (Wo rk) Social History Tobacco Use Types Packs/Day Years Used Date Smoking Tobacco: Never Assessed Sex Assigned at Date Recorded Female 12/02/2020 1:42 PM CDT documented as of this encounter Plan of Treatment Not on filedocumented as of this encounter Procedures Procedure Name Priority Date/Time Associated Comments Diagnosis HCL PANCREATIC Routine 12/09/2008 7:00 PM Results for this ELASTASE 1 CDT procedure are i n the results section. documented in this encounter Results Hospital - PANCREATIC ELASTASE 1 (12/09/2008 7:00 PM CDT) [facility] gist Method Time Signature Lab Scanned MISYS Result Lab Scanned PANCREATIC MISYS Result ELASTASE 1-Scanned Specimen (Source) Anatomical Collection Method Collection Time Re ceived Time Location / / Volume Laterality 12/09/2008 7:00 PM CDT Jerad Hooks MD LABORATORY Performing Organization Address City/State/ZIP Code Phon e Number MISYS documented in this encounter Visit Diagnoses Not on filedocumented in this encounter
--- OUTSIDE RECORDS SUMMARY | 2022-06-18 12:03 | XMS_ITS | Encounter Summary ---
:2001 Author Organization [facility] Address [address] [place] [id number] Care Team Providers Name Role Phone Unavailable Primary Care Provider Unavailable Encounter Details Date Type Department Care Team Description 12/08/2008 Historic Results INTERFACED REPORT Interface, Earl flanagan MD Social History Tobacco Use Types Packs/Day Years Used Date Smoking Tobacco: Never Assessed Sex Assigned at Date Recorded Female 12/02/2020 1:42 PM CDT documented as of this encounter Plan of Treatment Not on filedocumented as of this encounter Procedures Procedure Name Priority Date/Time Associated Comments Diagnosis ENDOMYSIAL ANTIBODY IGA Routine 12/08/2008 9:32 R esults for this AM CDT procedure are i n the results section. IGG Routine 12/08/2008 9:30 Results for this AM CDT procedure are i n the results section. CBC WITH PLATELETS & Routine 12/08/2008 9:30 Resu lts for this DIFFERENTIAL AM CDT procedure are i n the results section. TISSUE TRANSGLUTAMINASE Routine 12/08/2008 9:30 R esults for this JOSUE IGA AND IGG AM CDT procedure ar e in the results section. IGM Routine 12/08/2008 9:30 Results for this AM CDT procedure are i n the results section. IGE Routine 12/08/2008 9:30 Results for this AM CDT procedure are i n the results section. IGA Routine 12/08/2008 9:30 Results for this AM CDT procedure are i n the results section. HEPATIC FUNCTION PANEL Routine 12/08/2008 9:30 Re sults for this AM CDT procedure are i n the results section. ERYTHROCYTE Routine 12/08/2008 9:30 Results for this SEDIMENTATION RATE AUTO AM CDT proc edure are in the results section. CRP INFLAMMATION Routine 12/08/2008 9:30 Results for this AM CDT procedure are i n the results section. BASIC METABOLIC PANEL Routine 12/08/2008 9:30 Res ults for this AM CDT procedure are i n the results section. SWEAT CHLORIDE ANALYSIS Routine 12/08/2008 8:30 R esults for this AM CDT procedure are i n the results section. documented in this encounter Results Endomysial antibody IgA (12/08/2008 9:32 AM CDT) athologist Signature Endomysial IgA (Note) MISYS Antibody Comment: Test ? Resul ts ?Reference Range Endomysial Abs, S (IGA): Negative ? Negative Analyte Specific Reagent This test was developed and its performa nce characteristics determined by [facility], [facility]. This test has not been cleared or approved by the [place] Food and Drug Administration. Assayed at [facility], [place] [address] Specimen Anatomical Collection Method Collection Time Receive d Time (Source) Location / / Volume Laterality 12/08/2008 9:32 AM 9 9:34 CDT AM CDT Jerad Hooks MD LAB - BLOOD ORDERABLES Performing Organization Address City/State/ZIP Code Phon e Number MISYS Hepatic panel (12/08/2008 9:30 AM CDT) athologist Signature AST 40 0 - 50 U/L MISYS Protein Total 7.3 6.5 - 8.4 MISYS g/dL Albumin 4.6 3.9 - 5.1 MISYS g/dL ALT <6 0 - 50 U/L MISYS Alkaline 252 150 - 420 MISYS Phosphatase U/L Bilirubin 0.0 0.0 - 0.3 MISYS Conjugated mg/dL Bilirubin Delta 0.0 0.0 - 0.4 MISYS mg/dL Bilirubin Total 0.4 0.2 - 1.3 MISYS mg/dL Specimen Anatomical Collection Method Collection Time Receive d Time (Source) Location / / Volume Laterality 12/08/2008 9:30 AM 9 9:32 CDT AM CDT Jerad Hooks MD LAB - BLOOD ORDERABLES Performing Organization Address City/State/ZIP Code Phon e Number MISYS Basic metabolic panel (12/08/2008 9:30 AM CDT) P athologist Signature Sodium 142 133 - 143 MISYS mmol/L Potassium 4.1 3.4 - 5.3 MISYS mmol/L Chloride 105 96 - 110 MISYS mmol/L Carbon Dioxide 26 20 - 32 MISYS mmol/L Glucose 86 60 - 99 MISYS mg/dL Comment: Non Fasting Urea Nitrogen 9 5 - 24 mg/dL MISYS Creatinine 0.42 0.15 - 0.53 mg/dL MISYS Comment: New IDMS-traceable calibration beginning 12/04/07 GFR Estimate GFR not calculated, patient <16 mL/min/1.7m2 MISYS years old. GFR Estimate If Black GFR not calculated, patient <16 mL/min/1.7m2 MISYS years old. Calcium 10.0 8.7 - 10.8 mg/dL MISYS Anion Gap 11 6 - 17 mmol/L MISYS Specimen Anatomical Collection Method Collection Time Receive d Time (Source) Location / / Volume Laterality 12/08/2008 9:30 AM 9 9:32 CDT AM CDT Jerad Hooks MD LAB - BLOOD ORDERABLES Performing Organization Address City/[facility]/ZIP Code Phon e Number MISYS CBC with platelets differential (12/08/2008 9:30 AM CDT) Patholo gist Method Time Signature MCV 86 70 - 100 MISYS fl MCH 28.8 26.5 - MISYS 33.0 pg MCHC 33.6 31.5 - MISYS 36.5 g/dL RDW 12.2 10.0 - MISYS 15.0 % WBC 5.1 5.0 - MISYS 14.5 10e9/L RBC Count 4.41 3.7 - 5.3 MISYS 10e12/L Hemoglobin 12.7 10.5 - MISYS 14.0 g/dL Hematocrit 37.8 31.5 - MISYS 43.0 % % Neutrophils 38 32 - 54 % MISYS % Lymphocytes 52 27 - 57 % MISYS % Monocytes 9 0 - 10 % MISYS % Eosinophils 1 0 - 6 % MISYS % Basophils 0 0 - 1 % MISYS Platelet Count 267 150 - 450 MISYS 10e9/L Absolute 1.9 1.3 - 8.1 MISYS Neutrophil 10e9/L Absolute 2.6 1.1 - 8.6 MISYS Lymphocytes 10e9/L Absolute 0.5 0.0 - 1.1 MISYS Monocytes 10e9/L Absolute 0.1 0.0 - 0.7 MISYS Eosinophils 10e9/L Absolute 0.0 0.0 - 0.2 MISYS Basophils 10e9/L Diff Method Automated MISYS Method Specimen Anatomical Collection Method Collection Time Receive d Time (Source) Location / / Volume Laterality 12/08/2008 9:30 AM 9 9:32 CDT AM CDT Jerad Hooks MD LAB - BLOOD ORDERABLES Performing Organization Address [facility]/ZIP Code Phon e Number MISYS CRP inflammation (12/08/2008 9:30 AM CDT) athologist Signature CRP Inflammation 6.0 0.0 - 8.0 MISYS mg/L Specimen Anatomical Collection Method Collection Time Receive d Time (Source) Location / / Volume Laterality 12/08/2008 9:30 AM 9 9:32 CDT AM CDT Jerad Hooks MD LAB - BLOOD ORDERABLES Performing Organization Address City/[facility]/ZIP Code Phon e Number MISYS IgA (12/08/2008 9:30 AM CDT) athologist Signature IGA 85 30 - 200 MISYS mg/dL Specimen Anatomical Collection Method Collection Time Receive d Time (Source) Location / / Volume Laterality 12/08/2008 9:30 AM 9 9:32 CDT AM CDT Jerad Hooks MD LAB - BLOOD ORDERABLES Performing Organization Address City/[facility]/ZIP Code Phon e Number MISYS IgE (12/08/2008 9:30 AM CDT) athologist Signature IGE 11 0 - 150 MISYS KIU/L Specimen Anatomical Collection Method Collection Time Receive d Time (Source) Location / / Volume Laterality 12/08/2008 9:30 AM 9 9:32 CDT AM CDT Jerad Hooks MD LAB - BLOOD ORDERABLES Performing Organization Address City/State/ZIP Code Phon e Number MISYS (ABNORMAL) IgG (12/08/2008 9:30 AM CDT) athologist Signature IGG 608 (L) 610 - 1230 MISYS mg/dL Specimen Anatomical Collection Method Collection Time Receive d Time (Source) Location / / Volume Laterality 12/08/2008 9:30 AM 9 9:32 CDT AM CDT Jerad Hooks MD LAB - BLOOD ORDERABLES Performing Organization Address City/State/ZIP Code Phon e Number MISYS IgM (12/08/2008 9:30 AM CDT) athologist Signature IGM 47 45 - 200 MISYS mg/dL Specimen Anatomical Collection Method Collection Time Receive d Time (Source) Location / / Volume Laterality 12/08/2008 9:30 AM 9 9:32 CDT AM CDT Jerad Hooks MD LAB - BLOOD ORDERABLES Performing Organization Address City/State/ZIP Code Phon e Number MISYS Tissue transglutaminase josue IgA and IgG (12/08/2008 9:30 AM CDT) [facility] Method Time Signature Tissue <1.0 U/mL MISYS Transglutaminase Antibody IgA Comment: Interpretation: Negative Tissue Transglutaminase Josue IgG <1.0 U/mL MISYS Comment: Interpretation: Negative Specimen Anatomical Collection Method Collection Time Receive d Time (Source) Location / / Volume Laterality 12/08/2008 9:30 AM 9 9:32 CDT AM CDT Jerad Hooks MD LAB - BLOOD ORDERABLES Performing Organization Address City/State/ZIP Code Phon e Number MISYS Erythrocyte sedimentation rate auto (12/08/2008 9:30 AM CDT) athologist Signature Sed Rate 6 0 - 15 mm/h MISYS Specimen Anatomical Collection Method Collection Time Receive d Time (Source) Location / / Volume Laterality 12/08/2008 9:30 AM 9 9:32 CDT AM CDT Jerad Hooks MD LAB - BLOOD ORDERABLES Performing Organization Address City/State/ZIP Code Phon e Number MISYS Sweat chloride analysis (12/08/2008 8:30 AM CDT) P athologist Signature Sweat Chloride (Note) 2 - 40 MISYS mmol/L Cl Comment: Sweat Chloride (1) ??7 mmol/L Chloride ?Sample Weight 106 mg Sweat Chloride (2) ??6 mmol/L Chloride ?Sample Weight 107 mg Chloride #1: ??Sample size 99% confidenc e limit: ??+/- 3 Chloride #2: ??Sample size 99% confidenc e limit: ??+/- 3 CF Indicator Screening: ??Negative Results to: ??Dr. Hooks @ 1545 Duplicate values less than 40 mmol/L Chl oride are considered normal. Duplicate values between 40 mmol/L and 6 0 mmol/L Chloride are considered borderline and the test saeid uld be repeated. Duplicate values greater than 60 mmol/L Chloride are indicative of cystic fibrosis. Repeat tests are recommended if sample w eights are below 75 mg. [facility] at [facility] [place] [address] Specimen Anatomical Collection Method Collection Time Receive d Time (Source) Location / / Volume Laterality 12/08/2008 8:30 AM 9 2:02 CDT PM CDT Transcripton Interface LAB - BODY FLUIDS ORDERABLES Performing Organization Address City/State/ZIP Code Phon e Number MISYS documented in this encounter Visit Diagnoses Not on filedocumented in this encounter
--- OUTSIDE RECORDS SUMMARY | 2022-06-18 12:03 | XMS_ITS | Encounter Summary ---
:2000 Author Organization [place] Address [address] [place] [address] Care Team Providers Name Role Phone Unavailable Primary Care Provider Unavailable Encounter Details Date Type Department Care Team Description 11/05/2008 Office Visit-[facility] Urbano Price Sco tt, [facility] [address] [place] [id number] [place] [address], [facility] [place] [address] Social History Tobacco Use Types Packs/Day Years Used Date Smoking Tobacco: Never Assessed Sex Assigned at Date Recorded Female 12/02/2020 1:42 PM CDT documented as of this encounter Progress Notes Urbano Price - 11/05/2008 8:15 AM CDT Dining Room Hostess: Urbano Price Status: Final - Signature Encounter: 05 Nov 2008 Type: Peds Letter Division of Pediatric Endocrinology Department of Pediatrics [place] Mail [address] [place] [address] Office: [phone] [facility] [place] [facility] First Floor, [address] [place] [address] November 05, 2008 David Gibbs MD [facility] [address] [place] [address] RE: Dakota Casiano : 2000 TAWNYA: 11/05/[address] Gibbs: I had the pleasure of seeing your patient, Dakota Casiano, in the Pediatric Endocrinology Clinic at the [facility] on November 05, 2008, in consultation for failure to thrive/failure to gain weight. History of present illness: Dakota is a 8-year 4-month-old female with intermittent abdominal pain and poor weight gain. Dakota is here today with her father who admits he does not remember allthe details of her history very well; however, on reviewing over 100 pages of records, some of whichare duplicates, as well as the intake form completed by Dakota's mother, I was able to understand quite a bit of Dakota's history. Dakota was born at term weighing 9 pounds 21 inches by vaginal delivery following an uncomplicated . The main concern from the parents is worry about ongoing and recurrent stomachaches and poorweight gain. Dad says she looks unhealthy because of her thinness. He reports that she does not havestomach complaints if she eats junk food; however, she does get stomachaches a couple of times per day, sharp pain that causes her to lean over and lasts about 20 to 30 minutes. It is usually after shehas eaten. She does not have any nausea or vomiting. She does tend to have loose stools and foul smelling stools. Her symptoms of abdominal pain have been fairly stable, but does sporadically get worseand get better. Dakota has had an extensive evaluation by pediatric gastroenterologists and immunologists to help determine if there were any abnormalities leading to these stomach complaints. She has had normal sweat chloride testing, normal thyroid function on two occasions - March 2008 and February 2008 - celiac panel that was normal in February 2008, endoscopy that was normal in February 2008, albumin that was normal in March 2008, though her prealbumin was just below the normal range at 20.9 mg/dL, with arange of 21.2 to 42.4. She had low IgG total at that time, but all of her subclasses were in the normal range. She also had a low IgM. Other immunologic testing, including T-cell, MK cells, and other white blood cell profiles were normal. She did have appropriate reactions to diphtheria and tetanus. She has had issues of recurrent pneumonia, recurrent urinary tract infections with vesicoureteral reflux diagnosed at age [age], problems with reflux esophagitis and issues of recurrent otitis media. Father thinks she also had tubes placed for the ear infections. He also thinks she may have had her tonsils and adenoids removed. She has been hospitalized for her tonsils, for pneumonia, for stomachachesand for RSV. Review of systems: Diet history: She eats whatever she will eat. Parents report she does have fatigue, poor weight gain, some cold intolerance, frequent headaches, and some pains in her joints and bones. She has not had frequent infections since she started on preventative antibiotics. Eyes negative. Ear, nose and throat remarkable for otitis media. Cardiovascular: She had complaints of tachycardia and was seen by Dr. Meneses recently. Respiratory: There have not been problems with asthma, but she has had multiple pneumonias. Last year and the year before were particularly bad, but this year has been better. GI as described above. Genitourinary as described above. Musculoskeletal as described above. Skin: She has an irregular iduh-fy-mwui on her left arm. Neurologic: Occasional complaints of headaches, but no seizures. Neurologic/lymphatic: Remarkable for the immune deficiency. Endocrine review: She complains of being tired a lot and when she is tired she will slow down and not do other things. LH/FSH: No signs of puberty. ACTH: No symptoms of hypoglycemia. She does have prostration with illness, but this is mostly when illnesses last longer rather than hit her harder. She does tend to like salty things like olives and chips, but not to excess. ADH: No polyuria, polydipsia or nocturia. She does tend to have a strong odor to her urine. Growth hormone: She is wearing a size 12 shoe, size medium shirt, and size 6 slim with elastic pants. Dad reports her height has tracked along the 50th percentile all along and their primary concern has been her weight. Social history: She lives at home with her mom, dad and brother. She is attending the first grade. She does not need any extra help in school and she has not missed any school because of her abdominal pain, other than for doctor appointments. Dad describes her as a very active and busy girl. Family history: Mom is described as being very petite as a child, she is now 5 feet 8 inches and hasa history of a brain tumor behind her right eye with headache problems, allergies and thyroid disease. The thyroid disease was diagnosed in her 20s. Dad is 5 feet 11 inches and except for having a heart murmur as a kid he is healthy. Her 10-year-old brother had pyloric stenosis as an infant which required bulb enlargement and he now has no issues and is growing well. There is diabetes mellitus in a grandpa, no issues of early or late puberty or fertility concerns. Otherwise family history was completed and negative. Current medications include amoxicillin and omeprazole. She has no known drug allergies. On physical examination today blood pressure is 108/72, pulse 81. Weight is 20.5 kg and this is at the 18th percentile, minus 0.93 standard deviations. Height is 122.4 cm, at the 43rd percentile and minus 0.17 standard deviations. Her body mass index is 13.7 kg/m2 and an ideal body weight prediction would be 23.1 kg. She was alert and in no apparent distress with no dysmorphic features. Head is normocephalic and atraumatic. Pupils equal, round, reactive to light and accommodation. Extraocular movements are intact. Funduscopic exam shows crisp disc margins and normal venous pulsations. Nares are clear. Oropharynx shows normal dentition. Uvula and palpate and tympanic membranes visualized and clear. The neck was supple. The thyroid was nonpalpable. Lungs clear to auscultation bilaterally. Cardiovascular: Regular rate and rhythm, without murmur, gallop or rub. Breasts are Bhavik 1. Axillary hair, sweat and odor are absent. Abdomen: Thin, nondistended, positive bowel sounds, soft, nontender, no hepa tosplenomegaly or masses palpable. Genitourinary exam: Pubic hair is Bhavik 1, normal external female genitalia. Musculoskeletal exam: Normal muscle bulk and tone. No evidence of scoliosis. Neurologic:Cranial nerves II through XII tested and intact. Deep tendon reflexes 2+ and symmetric. Skin was normal with an irregular rohp-qu-kihk at the medial side of her left elbow. Overall Dakota is thin, but not excessively thin. She does have normal fat distribution in the buttocks and a small amount in the abdominal area. Assessment: 1. Failure to thrive. 2. Recurrent intermittent abdominal pain. 3. Immune deficiency. 4. History of vesicoureteral reflux with urinary tract infections. 5. History of recurrent pneumonias. Review of Dakota's records today show that she has had an extensive evaluation both immunologic and gastroenterologic for causes of her symptoms. The testing that was done today does not show any evidence of a hormonal problem. Thyroid function has been normal on two occasions. She has not been tested for adrenal insufficiency; however, and that could cause intermittent abdominal pain. This is highly unlikely since she does not have any other symptoms or signs such as hyperpigmentation related to adrenal insufficiency. I think it would be appropriate to do a morning cortisol before 9:00 a.m. at a future blood draw to test this. Although she does not have a goiter, we could also screen for antithyroid antibodies because of the family history of thyroid disease and her history of fatigue. I would doTPO antibodies along with repeat TSH and free T4 when they are drawing blood. Overall I reassured Dakota's father that her weight, though it is low for her size and age, is not excessively low. It is actually reassuring that her growth in height has been maintained and that her albumin has been normal. The prealbumin has been very slightly low, but even so would suggest that shehas had adequate nutrition and adequate absorption of her nutrients. I am also pleased that Dakota has not been missing school because of her abdominal pain and that in general her abdominal pain and fatigue, though they occur and do impact her lift, do not seem to have a large impact. I encouraged Dakota's father to approach this condition as an ongoing problem that may not be solved or cured; therefore our attitude towards her symptoms should be to continue to encourage her to do as much as she can regardless of the discomfort and to encourage her to eat healthy foods regardless of the discomfort so that she is getting appropriate nutrition. Although Dakota has had an extensive GI workup by others, I did offer further GI referral to our specialists here at the [facility]. They can review her current testing to help determine if any further testing would be appropriate. Plan: 1. I would like to obtain the thyroid functions and antithyroid antibodies at a future blood draw. 2. Obtain a morning cortisol before 9:00 a.m. These results can be faxed to my attention at [phone]. 3. Referral to Pediatric Gastroenterology. No followup is planned unless these hormonal tests are abnormal. At this point I do not think her weight is a hormonal issue and am reassured that her growth in height has been normal. Thank you for allowing me to care for this young lady. Please contact me if there are any questions or concerns. Sincerely, Urbano Price M.D., Ph.D. [facility] Pediatric Endocrinology BSM:ms cc: Family of Dakota Casiano [address] [place] [address] Electronically signed by:Urbano Price M.D. Nov 08 2008 11:48PM MEDICAL OFFICE CLERK documented in this encounter Plan of Treatment Not on filedocumented as of this encounter Visit Diagnoses Not on filedocumented in this encounter
--- OUTSIDE RECORDS SUMMARY | 2022-06-18 12:03 | XMS_ITS | Encounter Summary ---
:2000 Author Organization [place] Address [address] [place] [address] Care Team Providers Name Role Phone Unavailable Primary Care Provider Unavailable Encounter Details Date Type Department Care Team Description 08/19/2004 Historic Results INTERFACED REPORT New Luna MD [address] [place], [place] [address] (Wo rk) Social History Tobacco Use Types Packs/Day Years Used Date Smoking Tobacco: Never Assessed Sex Assigned at Date Recorded Female 12/02/2020 1:42 PM CDT documented as of this encounter Plan of Treatment Not on filedocumented as of this encounter Procedures Procedure Name Priority Date/Time Associated Comments Diagnosis HEMOGRAM DIFFERENTIAL STAT 08/19/2004 7:45 PM Results for this AND PLATELET PUMP RUNNER procedure are i n the results section. BLOOD CULTURE STAT 08/19/2004 7:45 PM Results for this PUMP RUNNER procedure are i n the results section. BASIC METABOLIC PANEL STAT 08/19/2004 7:45 PM Results for this PUMP RUNNER procedure are i n the results section. documented in this encounter Results (ABNORMAL) Hemogram differential and platelet (08/19/2004 7:45 PM PUMP RUNNER) [facility] Method Time Signature MCV 83 70 - 100 MISYS fl MCH 29.7 26.5 - MISYS 33.0 pg MCHC 35.6 32.0 - MISYS 36.0 g/dL RDW 11.0 10.0 - MISYS 15.0 % WBC 15.7 5.0 - MISYS 17.5 10e9/L RBC Count 3.76 3.7 - 5.3 MISYS 10e12/L Hemoglobin 11.2 10.5 - MISYS 14.0 g/dL Hematocrit 31.3 (L) 31.5 - MISYS 43.0 % % Neutrophils 66 (H) 15 - 44 % MISYS % Lymphocytes 25 (L) 45 - 76 % MISYS % Monocytes 9 0 - 10 % MISYS % Eosinophils 0 0 - 6 % MISYS % Basophils 0 0 - 1 % MISYS Platelet Count 292 150 - 450 MISYS 10e9/L Absolute 10.3 (H) 0.8 - 7.7 MISYS Neutrophil 10e9/L Absolute 3.9 2.3 - MISYS Lymphocytes 13.3 10e9/L Absolute 1.4 (H) 0.0 - 1.1 MISYS Monocytes 10e9/L Absolute 0.1 0.0 - 0.7 MISYS Eosinophils 10e9/L Absolute 0.0 0.0 - 0.2 MISYS Basophils 10e9/L Diff Method Automated MISYS Method Specimen Anatomical Collection Method Collection Time Receive d Time (Source) Location / / Volume Laterality 08/19/2004 7:45 PM 5 7:36 PUMP RUNNER PM PUMP RUNNER New Luna MD LAB - BLOOD ORDERABLES Performing Organization Address City/State/ZIP Code Phon e Number MISYS Basic metabolic panel (08/19/2004 7:45 PM PUMP RUNNER) [facility] gist Method Time Signature Sodium 138 133 - 143 MISYS mmol/L Potassium 4.3 3.4 - 5.3 MISYS mmol/L Chloride 101 96 - 110 MISYS mmol/L Carbon Dioxide 27 20 - 32 MISYS mmol/L Glucose 90 60 - 110 MISYS mg/dL Urea Nitrogen 12 2 - 19 MISYS mg/dL Creatinine 0.30 0.20 - MISYS 0.70 mg/dL GFR Estimate GFR not mL/min/1. MISYS calculated, 7m2 patient <16 years old. GFR Estimate If GFR not mL/min/1. MISYS Black calculated, 7m2 patient <16 years old. Calcium 9.3 8.7 - MISYS 10.8 mg/dL Anion Gap 10 6 - 17 MISYS mmol/L Specimen Anatomical Collection Method Collection Time Receive d Time (Source) Location / / Volume Laterality 08/19/2004 7:45 PM 5 7:36 PUMP RUNNER PM PUMP RUNNER New Luna MD LAB - BLOOD ORDERABLES Performing Organization Address City/State/ZIP Code Phon e Number MISYS Blood culture (08/19/2004 7:45 PM PUMP RUNNER) [facility] Method Time Signature Specimen Arm MISYS Description Culture Micro No growth MISYS after 6 days Micro Report FINAL MISYS Status [id number] Specimen Anatomical Collection Method Collection Time Receive d Time (Source) Location / / Volume Laterality 08/19/2004 7:45 PM 5 7:36 PUMP RUNNER PM PUMP RUNNER New Luna MD LAB - MICRO GENERAL ORD ERABLES Performing Organization Address City/State/ZIP Code Phon e Number MISYS documented in this encounter Visit Diagnoses Not on filedocumented in this encounter
--- OUTSIDE RECORDS SUMMARY | 2022-06-18 12:03 | XMS_ITS | Encounter Summary ---
:2000 Author Organization [place] Address [address] [place] [address] Care Team Providers Name Role Phone Unavailable Primary Care Provider Unavailable Encounter Details Date Type Department Care Team Description 08/25/2003 Emergency room Andreas Lopez MD [address] [facility] [address] [place] [address] (Wo rk) Social History Tobacco Use Types Packs/Day Years Used Date Smoking Tobacco: Never Assessed Sex Assigned at Date Recorded Female 12/02/2020 1:42 PM CDT documented as of this encounter ED Notes Andreas Lopez - 08/25/2003 12:00 AM COLLECTIONS ATTORNEY : 01 CHIEF COMPLAINT: Ingestion. Dakota Casiano is a 4-year-old girl with history since today, 1-1/2 hour before she arrived to this emergency room, while at home, she grabbed a bottle with muscle relaxant named metaxalone with 400 mg tablets. She opened the bottle and put some of the pills in her mouth. At that point, her father found her with some pills crushed on her mouth. The father does not know if she swallowed any of those pills. The content of the bottle was 100 400 mg pills, and at this point there are left 93. Dakota's father stated that he probably used 4 or 5 since March last year. She has been feeling tired, described by her mother, and a bit fussier than usual, but no vomiting and no other complaints. PAST MEDICAL HISTORY: She is taking Zithromax 1/2 tsp per day started yesterday for otitis media. Significant for a history for admission to the hospital for gastroenteritis and dehydration, and has history of surgery for ear tubes. FAMILY HISTORY: Noncontributory. SOCIAL HISTORY: She is attending day care. PHYSICAL EXAM: She is alert, active, cooperative, in no acute distress. Vital signs - temperature 97.6, pulse 119, respiratory rate 24, oxygen sat. 100% room air, weight 11.1 kilos. HEENT - normocephalic. Pupils equal, round, responsive to light, extraocular movements intact. Tympanics normal. NOSE - normal. OROPHARYNX - normal. NECK - supple with full range of motion. LUNGS - clear to auscultation. HEART - regular rate and rhythm, no murmur, rubs or gallop. ABDOMEN - soft with no hepatosplenomegaly, no masses. EXTREMITIES - with full range of motion, no clubbing, cyanosis or edema. ED COURSE AND TREATMENT: Poison Control was called and they suggest observation for an hour. If we see any somnolence or sedation or decrease in blood pressure, increasing heart rate, keep her here an extra hour until she stabilizes her symptoms and fine. During her stay here in the emergency room, she stayed for an hour in observation and a monitor and she was stable, she was not somnolent, not sedated, and heart rate and blood pressure were in the normal range. For that reason, I decided to send her home and I discussed that with the parents and they agree with that. DIAGNOSIS: Possible ingestion of metaxalone. PLAN: Symptomatic care. Encourage fluids, and follow up with primary doctor tomorrow. DISPOSITION: Home. EM#[id number] _ ANDREAS LOPEZ MD [place]: Document: [id number] [place], [place] Name: DAKOTA CASIANO EMERGENCY ROOM ENCOUNTER Page 2 of 2 LCN: ERC DSC: 08/25/2003 [place], [place] Name: MR#: : Admit Date: DAKOTA CASIANO [id number] 2000 08/25/2003 Doctor: ANDREAS LOPEZ MD EMERGENCY ROOM ENCOUNTER Page 1 of 2 documented in this encounter Plan of Treatment Not on filedocumented as of this encounter Visit Diagnoses Not on filedocumented in this encounter
--- OUTSIDE RECORDS SUMMARY | 2022-06-18 12:03 | XMS_ITS | Encounter Summary ---
:2000 Author Organization [place] Address [facility] [place] [address] Care Team Providers Name Role Phone Unavailable Primary Care Provider Unavailable Encounter Details Date Type Department Care Team Description 10/27/2008 Office Visit-[facility] Elmer Meneses Explorer Pediatric MD [facility] XXX RESIGNED XXX [address] [facility] 12th [facility] [place] [address] [place], [place] [phone] (Wo rk) [address] [phone] Social History Tobacco Use Types Packs/Day Years Used Date Smoking Tobacco: Never Assessed Sex Assigned at Date Recorded Female 12/02/2020 1:42 PM CDT documented as of this encounter Progress Notes Elmer Meneses - 10/27/2008 1:00 PM CDT Labor Relations Representative: Elmer Meneses Status: Final - Signature Encounter: 27 Oct 2008 Type: Peds Cardiology Letter Division of Pediatric Cardiology Department of Pediatrics [place] Mail [address] [place] [address] Office: [phone] Pediatric Specialty Clinic - [facility] Fourth Floor, Clinic [address] [place] [address] October 27, 2008 David Gibbs MD [facility] [address] [place] [address] RE: Dakota Casiano : 2000 TAWNYA: 10/27/[address] Gibbs: On October 27, 2008, I had the pleasure of evaluating your patient, Dakota Casiano, at the Pediatric Cardiology Clinic at the [facility]. As you know, Dakota is a fnyuf-lzgq-kkk young girl who was referred to our clinic for cardiac evaluation because of failure to grow and also some complains she is getting easily tired. Although she reports that she feels her heart beating very fast with activity, it seems this to be a normal response for the circumstances in which she is involved. She does not have any complaints of chest pain, and she has never fainted. Her past medical history is significant for frequent upper respiratory infections and a pneumonia for which she was hospitalized once at [age] years of age. She has undergone tonsillectomy and adenoidectomy in 2002, and ear tube placement in the same year. She does not have any known drug allergies. She has extensive workup for immune deficiencies which were negative as well as for celiac disease, which was negative as well. Her family history is negative for congenital heart diseases or sudden cardiac . She lives at home with her parents and her rde-ftmy-who brother. Her only medication is omeprazole for some nonspecified GI symptoms as well as prophylactic dose of amoxicillin that I understand was instituted because of her frequent infections. On her physical examination, Dakota Willoughby is a petite but otherwise a normally developing pkfzl-orgp-mxi young girl. She is not in any acute distress. Her weight is 20.2 kg which is between the 10th and 25th percentiles for her age, and her height is 121 cm, which is at the 50th percentile for her age. Her heart rate is 93 bpm and regular, and her respiratory rate is 20 breaths per minute. Her blood pressure is 105/63 mmHg. Her lungs are clear to auscultation bilaterally. Her precordium is quiet. She has a normal S1 and physiologically split S2. There is a 1-2/6 vibratory systolic ejection murmur at the left mid costal border. She does not have hepatosplenomegaly. She does not have lymphadenopathyor thyromegaly. Her distal extremities are warm and well-perfused. I reviewed and interpreted her EKG that reveals a normal sinus rhythm with a normal QRS axis and no evidence of right and left ventricular hypertrophy. I took also the liberty to perform an echocardiogram that revealed a structurally and functionally normal heart. In summary, Dakota has a normal cardiac evaluation. There is no heart condition I can think of to be responsible for her failure to grow. I do not think that she requires any further evaluation towards this direction. She does not also have any evidence of arrhythmias or abnormal tachycardias, but in case she develops these symptoms we described with the family sudden onset of palpitations, I would behappy to reevaluate her for this possibility. Thank you so much for allowing me to participate in the care of this patient. Should you have any further questions regarding the above evaluation, please do not hesitate to contact me at the PediatricCardiology Clinic of the [facility]. Sincerely Elmer Meneses MD Pediatric Cardiology LKK:bl cc: Family of Dakota Casiano [address] [place] [phone] Electronically signed by:Elmer Meneses M.D. Nov 01 2008 4:57PM MANAGER EMERGENCY DEPARTMENT Author documented in this encounter Plan of Treatment Not on filedocumented as of this encounter Visit Diagnoses Not on filedocumented in this encounter
--- OUTSIDE RECORDS SUMMARY | 2022-06-18 12:03 | XMS_ITS | Clinical Summary ---
:[address] [facility] Address [address] [place] [address] Care Team Providers Name Role Phone No Primary/Referring, Phy Primary Care Provider Unavailable Source Comments You are receiving this document as you are listed as the primary care provider,follow-up provider, or the patient has been referred to you for consultation.This is in compliance with the Medicare and Medicaid EHR Incentive Program,which states Providers who transition their patient to another setting of careor provider of care or refers their patient to another provider of care shouldprovide summarycare record for each transition of care or referral. [place] Allergies Active Allergy Reactions Severity Noted Date Comments Hydromorphone Other, see comments 05/11/2019 Pt did not remember what happened, she b ecame very angry and aggre ssive Medications Medication Sig Dispensed Refills Start Date End Date Status omeprazole (PRILOSEC) Take 20 mg by 0 03/31/2012 Active 20 MG capsule mouth daily (every 24 hours). loratadine (AKA Take 10 mg by 0 03/31/2012 Active CLARITIN) 10 MG tablet mouth daily (every 24 hours). JUNEL 08/24 1-20 MG-MCG Take 1 Tablet by 3 10/07/2018 Active tablet mouth daily. gabapentin (NEURONTIN) Take 300 mg by 3 11/24/2018 Active 300 MG capsule mouth three times a day. sertraline (ZOLOFT) 100 TAKE 1 TABLET BY 1 9 Active MG tablet MOUTH DAILY X30 DAYS: SCHEDULE APPT [phone] metoclopramide (REGLAN) Take 1 Tablet by 15 Tablet 0 0 Active 10 MG tablet mouth every 8 hours as needed for Nausea or Vomiting (for nausea or vomiting). Active Problems Problem Noted Date Increased frequency of headaches 05/12/2012 Mild intermittent asthma with exacerbation 05/07/2012 Hip dysplasia 05/07/2012 Scoliosis 05/07/2012 Overview: S/p humaira placement January 2016. 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 Seasonal allergies 05/07/2012 Abdominal pain, chronic, generalized 04/15/2012 Routine child health exam 04/15/2012 Immunizations Name Administration Dates Next Due DTaP 11/22/2006, 01/26/2003, 04/24/2002, 01/04, 2001 Flu Vac Preserv Free (3+yrs) 03/31/2012, 05/04/2010 HepB Ped/Adol (0-18 yrs) 01/26/2003, 07/25/2002, 04/24/2002 IPV (Polio) 11/22/2006, 04/24/2002, 01/23/2002, 07/06 MMR 11/04/2004, 01/23/2002 Pneumococcal 7, PED 2001, 2001 TDAP (BOOSTRIX) 03/31/2012 Varicella 03/31/2012, 11/22/2006 Social History Tobacco Use Types Packs/Day Years Used Date Smoking Tobacco: Never Smokeless Tobacco: Never Sex Assigned at Date Recorded Not on file Last Filed Vital Signs Vital Sign Reading Time Taken Comments Blood Pressure 102/64 08/07/2019 12:32 PM MANUFACTURING EXECUTIVE Pulse 90 08/07/2019 12:32 PM MANUFACTURING EXECUTIVE Temperature 36.7 ??C (98 ??F) 08/07/2019 12:32 PM MANUFACTURING EXECUTIVE Respiratory Rate 16 08/07/2019 12:32 PM MANUFACTURING EXECUTIVE Oxygen Saturation 100% 08/07/2019 12:32 PM MANUFACTURING EXECUTIVE Inhaled Oxygen Concentration - - Weight 49.9 kg (110 lb) 03/21/2018 10:42 AM CDT Height 160 cm (5' 3) 03/21/2018 10:42 AM CDT Body Mass Index 19.49 03/21/2018 10:42 AM CDT Plan of Treatment Health Maintenance Due Date Last Done Comments Chlamydia 2001 Hep C Screening (Preventive 2001 Services) COVID-19 Vaccine (#1) 01/22/2002 Asthma ACT 2005 HPV Vaccine (1 - 2-dose 2012 series) HIV Screening (Preventive 2017 Services) Adult Preventive Visit 2019 Asthma AMP 19-50 yo 2020 DTaP/Tdap/Td (6 - Tdap) 03/31/2022 03/31/2012, 11/22/2006, 01/26/2003, Additional history exists Influenza (#1) 2022 03/31/2012, 05/04/2010 Zoster/Shingles (1 of 2) 2051 Pneumococcal Aged Out 2001, 2001 No longer eligible based on patient 's age to complete this topic HepB Completed 01/26/2003, 07/25/2002, 04/24/2002 IPV (Polio) Completed 11/22/2006, 04/24/2002, 01/23/2002, Additional history exists Varicella Completed 03/31/2012, 11/22/2006 HepA Aged Out No longer eligib le based on patient 's age to complete this topic Hib Aged Out No longer eligib le based on patient 's age to complete this topic MCV4 Aged Out No longer eligib le based on patient 's age to complete this topic Insurance Payer Benefit Plan / Subscriber ID Effective Phone Address T ype Group Dates PREFERREDONE PREFERREDONE [id number] 2018-Pres [phone] [facility] ent [phone] [place] [address] [facility] [id number] 2009-Pres [address] Med icaid ent [id number] [address] [facility] [place] [address] Myles Casiano Personal/Family Father [id number] ([address]) [place] [address] Myles Casiano Personal/Family Father [id number] ([address]) [place] [address] PEDRO,MYLES Personal/Family Parent [id number] (Home) [place] [address] Care Teams Mincing Machine Operator Relationship Specialty Start Date End Date No Primary/Referring, Maged PCP - General 05/11/19
--- OUTSIDE RECORDS SUMMARY | 2022-06-18 12:03 | XMS_ITS | Encounter Summary ---
:2000 Author Organization [facility] Address [address] [place] [id number] Care Team Providers Name Role Phone Unavailable Primary Care Provider Unavailable Encounter Details Date Type Department Care Team Description 07/01/2005 Emergency room New Luna MD [address] [place], [place] [address] (Wo rk) Social History Tobacco Use Types Packs/Day Years Used Date Smoking Tobacco: Never Assessed Sex Assigned at Date Recorded Female 12/02/2020 1:42 PM CDT documented as of this encounter Progress Notes Interface, Polisher Brass - 07/01/2005 11:59 PM BANKING ATTORNEY PRELIMINARY ATTENDING PHYSICIAN: David Gibbs MD CHIEF COMPLAINT: Head injury. HISTORY OF PRESENT ILLNESS: This 4-year-old young lady fell out of a shopping cart, mom was trying to lift older brother out and the child thought that she was being lifted out and she unbuckled her seatbelt, stood up and tumbled out of the car striking the back of her head. She was briefly knocked unconscious. She has had no vomiting. She seems to be rather sleepy at this time. PAST MEDICAL HISTORY: She has had previous bladder problems and has had tonsillectomy. IMMUNIZATIONS: Up-to-date. REVIEW OF SYSTEMS: See HPI, past medical history above. All other systems are negative. SOCIAL HISTORY: Lives with her family. PHYSICAL EXAMINATION: VITAL SIGNS: Temperature 97.3, respiratory rate 24, heart rate 115, blood pressure 104/56. O2 sat is 100% on room air and weight is 15.7 kg. HEENT: Head she notes tenderness to the occipital area. There is no significant swelling and no hematoma evident. Remainder of the head is atraumatic. Eyes pupils are equal, round, reactive to light and accommodation. EOMs are intact. Lids and conjunctivae are unremarkable. Ear, nose and throat are negative. NECK: Supple without nodes or masses or tenderness over the cervical spines. LUNGS: Clear to auscultation. Breath sounds equal bilaterally. Ribs are negative. ABDOMEN: Soft, nontender, no hepatosplenomegaly, no palpable masses. NEUROLOGIC: There are no focal findings. Cranial nerves are intact. Strength is normal, symmetric in the upper extremities. Normal and symmetric in the lower extremities. EXTREMITIES: Both upper and both lower extremities show no evident bruising bruising, swelling or acute injury. SKIN: No rashes, bruises, petechiae and no jaundice. EMERGENCY DEPARTMENT COURSE: In the Emergency Department, child noted that her head was hurting, but also that she felt somewhat nauseated. She was given a Tylenol suppository [address] scan of the head was read by the staff radiologist as negative. I discussed all of this with mom. On recheck, the child was awake, alert, smiling, happy and said that she was feeling much better right now and wants to eat something. I suggested that mom keeper on a bland diet through this evening and advance onit if she has no vomiting. DISPOSITION: 1. Ice to the back of her head. 2. Tylenol every 4 hours as needed for pain. 3. It is perfectly fine for her to go to sleep. She does not need to wake her up tonight head injury information is given. 4. Quiet activities for the next 1- 2 days. 5. Carver diet tonight, 7-Up, Katherine Lian, Popsicles, crackers, dry toast, etc. advance if she has nofurther vomiting. 6. Recheck with her physician in 2 to 3 days. DIAGNOSIS: Closed head injury, concussion. NEW LUNA MD MT: KARISSA Name: DAKOTA VASQUEZ MRN: [id number] Account: [id number] : 2000 Visit Date: 07/01/2005 Document: [id number] cc: David Gibbs MD ING ATTORNEY documented in this encounter Plan of Treatment Not on filedocumented as of this encounter Procedures Procedure Name Priority Date/Time Associated Diagnosis Comme nts HC CT HEAD WO Routine 07/01/2005 2:59 PM Results for this CONTRAST BANKING ATTORNEY procedure are i n the results section. documented in this encounter Results CT SCAN HEAD/BRAIN (07/01/2005 2:59 PM BANKING ATTORNEY) Anatomical Region Laterality Modality Other Specimen (Source) Anatomical Collection Method Collection Time Re ceived Time Location / / Volume Laterality 07/01/2005 2:59 PM BANKING ATTORNEY Impressions 07/02/2005 8:[address] HEAD WITHOUT CONTRAST - 07/01/2005 ?? HISTORY: Trauma. ?? FINDINGS: There is no evidence of fractu re. Ventricles are normal in size and position. There is no evidence of mass lesion or hemorrhage. ?? CONCLUSION: ?? Negative noncontrast CT scan of the head . New Luna MD SPECIAL IMAGING STUDIES documented in this encounter Visit Diagnoses Not on filedocumented in this encounter
--- OUTSIDE RECORDS SUMMARY | 2022-06-18 12:03 | XMS_ITS | Encounter Summary ---
:2000 Author Organization [facility] Address [address] [place] [address] Care Team Providers Name Role Phone No Primary/Referring, Phy Primary Care Provider Unavailable Reason for Referral Consult/Transfer Care (Routine) - Closed Specialty Diagnoses / Procedures Referred By Contact Refer red To Contact Diagnoses Acute nonintractable headache, unspecified headache type Mónica Bowden PA-C [address] [place] [address] Referral ID Status Reason Start Date Expiration Date Visits Requ ested Visits Authorized [id number] Closed 08/07/2019 11/05/2020 1 1 Scheduling Instructions Your provider has [facility]. You may call [phone], option 2 to schedule your appointment. If you prefer, a continuous process coffee roaster will contact you within the next 3 business days to assist you in setting up this appointment. We s uggest you call your health insurance company about your coverage and benefits for thi s appointment. ICIAN PRACTICE CONSULTANT Consult/Transfer Care (Routine) - Closed Specialty Diagnoses / Procedures Referred By Contact Refer red To Contact Diagnoses Acute nonintractable headache, unspecified headache type Mónica Bowden PA-C [address] [place] [address] Referral ID Status Reason Start Date Expiration Date Visits Requ ested Visits Authorized [id number] Closed 08/07/2019 11/05/2020 1 1 Scheduling Instructions Your provider has recommended an appoint ment with [facility] Neurology. You may call [phone] to schedule your appoi ntment. If you prefer, a continuous process coffee roaster will contact you within the next 3 business d ays to assist you in setting up this appointment. We suggest you call your [employer] insurance company about your coverage and benefits for this appointment. ICIAN PRACTICE CONSULTANT Reason for Visit Reason Comments Headache Encounter Details Date Type Department Care Team Description 08/07/2019 Emergency [facility] Emergency Dept Mónica Bowden PA-C Acute nonintractable headache, unspecifi ed headache type (Primary Dx); [address] [facility] Scoliosis, unspecified scoliosis type, u nspecified spinal region; [place] [address] [place], [place] H/O spinal fusion [phone] [id number] Social History Tobacco Use Types Packs/Day Years Used Date Smoking Tobacco: Never Smokeless Tobacco: Never Sex Assigned at Date Recorded Not on file documented as of this encounter Last Filed Vital Signs Vital Sign Reading Time Taken Comments Blood Pressure 102/64 08/07/2019 12:32 PM PHYSICIAN PRACTICE CONSULTANT Pulse 90 08/07/2019 12:32 PM PHYSICIAN PRACTICE CONSULTANT Temperature 36.7 ??C (98 ??F) 08/07/2019 12:32 PM PHYSICIAN PRACTICE CONSULTANT Respiratory Rate 16 08/07/2019 12:32 PM PHYSICIAN PRACTICE CONSULTANT Oxygen Saturation 100% 08/07/2019 12:32 PM PHYSICIAN PRACTICE CONSULTANT Inhaled Oxygen Concentration - - Weight - - Height - - Body Mass Index - - documented in this encounter Discharge Instructions Discharge InstructionsMónica Bowden PA-C - 08/07/2019 2:48 PM CST Please make an appointment to follow up with neurology and neurosurgery, referrals have been given. ER warnings: Come to the ER for any of the following situations: - fever (temperature greater than 101.5F) - bleeding that does not stop with holding pressure to the area - severe pain - chest pain - difficulty breathing - severe nausea or vomiting - inability to tolerate food and liqluids - passing out - skin becoming red around any wounds - drainage of pus or foul- smelling material from wounds - change in mental status (confusion or lethargy) - new numbness or weakness - any other worrisome symptoms ICIAN PRACTICE CONSULTANT documented in this encounter Medications at Time of Discharge Medication Sig Dispensed Refills Start Date End Date gabapentin (NEURONTIN) 300 Take 300 mg by 3 11/24 MG capsule mouth three times a day. JUNE08/24 1-20 MG-MCG Take 1 Tablet by 3 10/07/ 019 tablet mouth daily. loratadine (AKA CLARITIN) Take 10 mg by mouth 0 0 03/31/2012 10 MG tablet daily (every 24 hours). metoclopramide (REGLAN) 10 Take 1 Tablet by 15 Tablet 0 10/2019 MG tablet mouth every 8 hours as needed for Nausea or Vomiting (for nausea or vomiting). omeprazole (PRILOSEC) 20 Take 20 mg by mouth 0 MG capsule daily (every 24 hours). sertraline (ZOLOFT) 100 MG TAKE 1 TABLET BY 1 tablet MOUTH DAILY X30 DAYS: SCHEDULE APPT [phone] ketorolac (TORADOL) 10 MG Take 1 Tablet by 12 Tablet 0 0 10/201908/10/2019 tablet mouth every 6 hours as needed for Pain for up to 3 days. documented as of this encounter ED Notes Holly Rosado RN - 08/07/2019 3:57 PM CST [facility] ED Nursing Discharge Note Vital Signs: BP: 102/64 Temp: 98 ??F (36.7 ??C)Temp src: Oral Pulse: 90 Resp: 16 SpO2: 100 % Admission Date/Time: 08/07/2019 12:49 PM Attending MD: Mónica Bowden PA-C Patient discharged: to Home. Patient accompanied by: parent. Transported by: Walked Valuables were taken home by patient: Yes Work/School Slip given: Yes Discharge instructions given and explained to patient: Yes Discharge prescriptions given to patients: New Prescriptions KETOROLAC (TORADOL) 10 MG TABLET Take 1 Tablet by mouth every 6 hours as needed for Pain for up to 3 days. METOCLOPRAMIDE (REGLAN) 10 MG TABLET Take 1 Tablet by mouth every 8 hours as needed for Nausea or Vomiting (for nausea or vomiting). Patient verbalized understanding. Yes Patient level of pain on discharge: Improved Patients condition on discharge related to chief complaint and treatment in ED: Pt. Verbalized understanding of DC instructions--follow up as directed. ---End of Report--- ICIAN PRACTICE CONSULTANT Mónica Bowden PA-C - 08/07/2019 1:38 PM CST Images from the original note were not included. [facility] Emergency Medicine Visit Note Chief Complaint: Headache HPI Dakota Casiano is a 19 y.o. old female with a history of scoliosis s/p spinal fusion February 2019 who presents today for evaluation of a headache lasting for three days. Patient gets headaches twice a week since spinal surgery, and usually improve within a couple days of sleeping it off, OTC analgesics, and/or diazepam. Patient followed up with the spinal surgeon two weeks ago for the intermittent headaches and mother notes the surgeon told them to live with it. Since the most current onset, patient has been receiving aleve and tylenol without improvement. In the past, diazepam has worked and receiveda dose yesterday with little improvement. Headache is located on the left temporal region, and describes as sharp and radiates from her back to the left side. Previous headaches have been on the top ofher head as well. She has mild photophobia and phonophobia. Patient is also nauseous and dizzy. She has a history of POTS as well. The episode is similar to previous but lasting longer than usual prompting the visit for further evaluation. No vomiting, abdominal pain, or recent illnesses. There are nocurrent plans for future surgeries at this time. Of note, patient has never been evaluated by a neurologist and has a follow up appointment with the spinal surgeon in 2.5 weeks on 08/24. In addition to the above, I have personally reviewed any medications, allergies, problem list, medical history, surgical history and social history in the health record as of this visit. Review of Systems A complete review of systems was performed and is otherwise negative. See HPI. Triage Vitals [08/07/19 1232] Temp 98 ??F (36.7 ??C) Temp src Oral Pulse 90 Resp 16 BP 102/64 SpO2 100 % Physical Exam Constitutional: General: She is not in acute distress. Appearance: Normal appearance. She is well-developed. She is not diaphoretic. Comments: Laying down in a dark room secondary to photophobia, uncomfortable appearing. HENT: Head: Normocephalic. Eyes: General: No scleral icterus. Conjunctiva/sclera: Conjunctivae normal. Pupils: Pupils are equal, round, and reactive to light. Neck: Musculoskeletal: Full passive range of motion without pain, normal range of motion and neck supple.No neck rigidity. Cardiovascular: Rate and Rhythm: Normal rate and regular rhythm. Heart sounds: S1 normal and S2 normal. No friction rub. No gallop. Pulmonary: Effort: Pulmonary effort is normal. No accessory muscle usage or respiratory distress. Breath sounds: Normal breath sounds. No decreased breath sounds, wheezing, rhonchi or rales. Abdominal: General: Bowel sounds are normal. There is no distension. Palpations: Abdomen is soft. Tenderness: There is no tenderness. There is no rebound. Musculoskeletal: Back: Skin: General: Skin is warm. Findings: No rash. Comments: Small lump on midline of back, no erythema, no fluctuance. Very tender to palpation -- per patient. It has been there for sometime. Neurological: General: No focal deficit present. Mental Status: She is alert and oriented to person, place, and time. GCS: GCS eye subscore is 4. GCS verbal subscore is 5. GCS motor subscore is 6. Cranial Nerves: No cranial nerve deficit. Sensory: Sensation is intact. No sensory deficit. Motor: Motor function is intact. Comments: Cranial Nerves intact II-XII except I did not formally test gag or visual acuity. EOMI. Palate elevates symmetrically and tongue protrudes in the midline. Strength: 5/5 bilaterally in the trapezius, 5/5 bilaterally in the deltoid, 5/5 bilaterally in the biceps, 5/5bilaterally in the triceps, 5/5 bilaterally in thegrip, 5/5 bilaterally thumb opposition, 5/5 bilaterally finger abduction 5/5 bilaterally in the psoas, 5/5 bilaterally in the quadriceps, 5/5 bilaterally in the hamstring, 5/5 bilaterally in the gastrocnemius, 5/5 bilaterally in the tibialis anterior Sensation intact to light touch in both upper extremities (C4-T1) Sensation intact to light touch in Both lower extremities (L4-S1). Psychiatric: Speech: Speech normal. MDM: Dakota Casiano is a 19 y.o. old female with a history of scoliosis s/p spinal fusion in February 2019 who comes in today with a headache. Vitals are within normal limits and stable. This current headache is similar to previous headaches since most recent spinal surgery. Differential diagnosis includes but is not limited to tension headache, migraine, cluster headache. Less likely worrisome etiology including tumor or CVA. No signs of meningitis. Patient's symptoms are similar to previous headaches and no focal neuro deficits warranting imaging at this time. Given no improvement with aleve or tylenol, patient received Toradol, Reglan, and IVF in the ED. Plan to reassess. Of note, also discussed followup with neurology and spinal surgeon for further evaluation and management of ongoing headaches. In regards to the lump on her back, this has been there for some time, has been evaluated by NSG, low suspicion for abscess, etc. This document serves as a record of services personally performed by PA Preceptor: Mónica Bowden PA-C. It was created on his/her behalf by Abby England, a chief medical technologist. The creation of this record isbased on the scribe's personal observations and the provider's statements to them. The document has been checked and approved by the provider. ED Course as of Aug 07 1504SatAug 07, 2019 1445 Patient reports significant improvement in headache, she is eating and drinking normally. I will give her a referral to see neurology and her mother is requesting a referral to neurosurgery which I will provide. She is otherwise stable for discharge. Red flag signs/symptoms that would require re-evaluation in the Emergency Department were discussed with the patient. They expressed understanding of these instructions and were discharged in satisfactory condition. [MD] ED Course User Index [MD] Mónica Bowden PA-C Clinical Impressions as of Aug 07 1504 Acute nonintractable headache, unspecified headache type ICIAN PRACTICE CONSULTANT documented in this encounter Plan of Treatment Scheduled Referrals Name Type Priority Associated Diagnoses Order S chedule Neurology Referral - Referral Routine Acute nonintractable Ordered: 08/07/2019 Adults headache, unspecified headache type Neurosurgery Referral - Referral Routine Acute nonintracta ble Ordered: 08/07/2019 Adults headache, unspecified headache type documented as of this encounter Visit Diagnoses Diagnosis Acute nonintractable headache, unspecifi ed headache type - Primary Scoliosis, unspecified scoliosis type, u nspecified spinal region H/O spinal fusion Arthrodesis status Triage Assessment Note - Antolin Rojo RN - 08/07/2019 12:43 PM PHYSICIAN PRACTICE CONSULTANT Pt c/o a headache that started a couple of days ago along with dizziness and nausea. Pts mom reportsthat the pt has had several spinal surgeries and is concerned that her sx may be related, however, pt has seen her Spine surgeon several times regarding her sx. Pt has been taking Aleve, Tylenol without relief. ICIAN PRACTICE CONSULTANT documented in this encounter Administered Medications Inactive Administered Medications - up to 3 most recent administrations Medication Order MAR Action Action Date Dose Rate Site 0.9% sodium chloride bolus 1,000 Started 08/07/2019 2:17 PM PHYSICIAN PRACTICE CONSULTANT 1, 000 mL mL 1,000 mL, Intravenous, Administer over 0.5 Hours, ONCE, On Sat08/07/19 at 1400, For 1 dose ketorolac (TORADOL) injection 15 mg Given 08/07/2019 2:16 PM PHYSICIAN PRACTICE CONSULTANT 15 mg 15 mg, Intravenous, ONCE, On Sat08/07/19 at 1400, For 1 dose, . metoclopramide 10 mg in NaCl 0.9% 50 mL Started 08/07/2019 2:17 PM PHYSICIAN PRACTICE CONSULTANT 10 mg Intravenous, ONCE, 1 dose, On Sat08/07/19 at 1400 documented in this encounter Active and Recently Administered Medications Times are shown in PHYSICIAN PRACTICE CONSULTANT. Scheduled Medication Order 08/05/2019 08/06/2019 08/07/2019 0.9% sodium chloride bolus 1,000 mL (COMPLETED) 1417 (Started - Provider: Holly Rosado RN)1447 (Infused - Provider: Holly Rosado RN) 1,000 mL, Intravenous, Administer over 0 .5 Hours, ONCE, Sat08/07/19 at 1400, For 1 dose ketorolac (TORADOL) injection 15 mg (COMPLETED) 1416 (Given - Provider: Holly A Keatts, RN) 15 mg, Intravenous, ONCE, 08/07/19 at 1400, For 1 dose, . metoclopramide 10 mg in NaCl 0.9% 50 mL (COMPLETED) 1417 (Started - Provider: Holly Rosado RN) Intravenous, ONCE, 1 dose, 08/07/19 at 1400 documented in this encounter Care Teams Test And Research Reactor Operator Relationship Specialty Start Date End Date No Primary/Referring, Phy PCP - General 05/11/19 documented as of this encounter
--- OUTSIDE RECORDS SUMMARY | 2022-06-18 12:03 | XMS_ITS | Encounter Summary ---
:2001 Author Organization [facility] Address [address] [place] [address] Care Team Providers Name Role Phone Unavailable Primary Care Provider Unavailable Encounter Details Date Type Department Care Team Description 11/05/2008 Office Visit-[facility] INTER[facility] DEPT Unknown, Provider Social History Tobacco Use Types Packs/Day Years Used Date Smoking Tobacco: Never Assessed Sex Assigned at Date Recorded Female 12/02/2020 1:42 PM CDT documented as of this encounter Progress Notes Unknown, Provider - 11/05/2008 8:15 AM CDT Wire Chief: Desire Brand Status: Final Encounter: 05 Nov 2008 Type: Rooming Note Informant Parent is informant unless otherwise noted. Reason For Visit not gaining weight Do you have any other appointments, tests or procedures within the [facility] system for this same day? No. Pain Eval Current history of pain associated with this visit is denied. Personal Hx Behavioral history: No tobacco use. Home environment: No secondhand tobacco smoke in home. Vital Signs Position for height measurement: standing Blood pressure taken with: electronic BP machine. Recorded by hbarclay on 05 Nov 2008 08:41 AM BP:108/72, RUE, Sitting, HR: 81 b/min, Height: 122.4 cm, Weight: 20.5 kg, BMI: 13.7 kg/m2. Immunizations Immunizations are reported as current. Allergies No Known Drug Allergy. Current Meds Med list offered and patient declined. Amoxicillin 400 MG Tablet Chewable;CHEW AND SWALLOW 1 TABLET TWICE DAILY.; RPT Omeprazole 20 MG Capsule Delayed Release;; RPT AAA-MED RECONCILE;; RPT. Teaching Teaching not applicable. Signature Electronically Signed By: Desire Brand CMA; 11/05/2008 8:43 AM WATER RESOURCE PROJECT MANAGER. documented in this encounter Plan of Treatment Not on filedocumented as of this encounter Visit Diagnoses Not on filedocumented in this encounter
--- OUTSIDE RECORDS SUMMARY | 2022-06-18 12:03 | XMS_ITS | Encounter Summary ---
:2001 Author Organization [facility] Address [address] [place] [address] Care Team Providers Name Role Phone Unavailable Primary Care Provider Unavailable Encounter Details Date Type Department Care Team Description 10/27/2008 Office Visit-[facility] DE[facility] Unknown, Provider Social History Tobacco Use Types Packs/Day Years Used Date Smoking Tobacco: Never Assessed Sex Assigned at Date Recorded Female 12/02/2020 1:42 PM CDT documented as of this encounter Progress Notes Unknown, Provider - 10/27/2008 1:00 PM CDT Vb Developer: Desire Brand Status: Final Encounter: 27 Oct 2008 Type: Rooming Note Informant Parent is informant unless otherwise noted. Reason For Visit tackycardia Do you have any other appointments, tests or procedures within the [facility] system for this same day? No. Pain Eval Current history of pain associated with this visit is denied. Personal Hx Behavioral history: No tobacco use. Home environment: No secondhand tobacco smoke in home. Vital Signs Position for height measurement: standing Blood pressure taken with: electronic BP machine. Recorded by hbarclay on 27 Oct 2008 01:49 PM BP:105/63, RUE, Sitting, HR: 93 b/min, Resp: 20 r/min, Normal, Height: 121.8 cm, Weight: 20.2 kg, BMI: 13.6 kg/m2. Immunizations Immunizations are reported as current. Allergies No Known Drug Allergy. Current Meds Med list offered and patient declined. Amoxicillin 400 MG Tablet Chewable;CHEW AND SWALLOW 1 TABLET TWICE DAILY.; RPT Omeprazole 20 MG Capsule Delayed Release;; RPT AAA-MED RECONCILE;; RPT. Teaching Teaching not applicable. Signature Electronically Signed By: Desire Brand CMA; 10/27/2008 1:51 PM CHEMICAL RECOVERY OPERATOR. documented in this encounter Plan of Treatment Not on filedocumented as of this encounter Visit Diagnoses Not on filedocumented in this encounter
--- OUTSIDE RECORDS SUMMARY | 2022-06-18 12:03 | XMS_ITS | Encounter Summary ---
:2001 Author Organization [facility] Address [facility] [place] [address] Care Team Providers Name Role Phone Unavailable Primary Care Provider Unavailable Encounter Details Date Type Department Care Team Description 04/20/2004 Results Only David Hannah MD [facility] [address] [place], [place] [address] (Wo rk) Social History Tobacco Use Types Packs/Day Years Used Date Smoking Tobacco: Never Assessed Sex Assigned at Date Recorded Female 12/02/2020 1:42 PM CDT documented as of this encounter Plan of Treatment Not on filedocumented as of this encounter Procedures Procedure Name Priority Date/Time Associated Diagnosis Comme nts HC X-RAY ABDOMEN AP Routine 04/20/2004 10:19 AM R esults for this VIEW (KUB) CDT procedure are i n the results section. documented in this encounter Results X-RAY ABDOMEN 1 VW (04/20/2004 10:19 AM CDT) Anatomical Region Laterality Modality Other Specimen (Source) Anatomical Collection Method Collection Time Re ceived Time Location / / Volume Laterality 04/20/2004 10:19 AM CDT Impressions 04/20/2004 12:46 PM CDT SINGLE VIEW ABDOMEN ?? INDICATION: ??Pain. ?? IMPRESSION: Moderate stool is present in the colon, especially the splenic flexure of the colon and distal colon an d rectum. ??No dilated bowel loops are seen. David Hannah MD GENERAL IMAGING documented in this encounter Visit Diagnoses Not on filedocumented in this encounter
--- OUTSIDE RECORDS SUMMARY | 2022-06-18 12:03 | XMS_ITS | Encounter Summary ---
:2001 Author Organization [facility] Address [address] [place] [address] Care Team Providers Name Role Phone System, Provider Not In Primary Care Provider Unavailable Encounter Details Date Type Department Care Team Description 10/27/2008 Historic Results INTERFACED REPORT Interface, Earl flanagan MD Social History Tobacco Use Types Packs/Day Years Used Date Smoking Tobacco: Never Assessed Sex Assigned at Date Recorded Female 12/02/2020 1:42 PM CDT documented as of this encounter Plan of Treatment Not on filedocumented as of this encounter Procedures Procedure Name Priority Date/Time Associated Diagnosis Comme nts EKG 12 LEAD Routine 10/27/2008 1:47 PM Results f or this CDT procedure are i n the results section . documented in this encounter Results EKG 12 LEAD (10/27/2008 1:47 PM CDT) [facility] Method Time Signature Ventricular Rate 111 BPM RADIOLOGY RESULTS Atrial Rate 111 BPM RADIOLOGY RESULTS [place] Interval 126 ms RADIOLOGY RESULTS QRS Duration 72 ms RADIOLOGY RESULTS QT 330 ms RADIOLOGY RESULTS QTc 448 ms RADIOLOGY RESULTS P [place] 44 degrees RADIOLOGY RESULTS R AXIS 86 degrees RADIOLOGY RESULTS T [place] 50 degrees RADIOLOGY RESULTS Interpretation * Pediatric ECG Analysis * RADIOLOGY ECG Sinus rhythm RESULTS Normal ECG Specimen Anatomical Collection Method Collection Time Receive d Time (Source) Location / / Volume Laterality 10/27/2008 1:47 PM 9 9:47 CDT AM CDT Transcripton Sara CONCEPCION ECG ORDERABLES Performing Organization Address City/State/ZIP Code Phon e Number RADIOLOGY RESULTS documented in this encounter Visit Diagnoses Not on filedocumented in this encounter Care Teams Consumer Insight Manager Relationship Specialty Start Date End Date System, Provider Not In PCP - General 06/20/1111/04 documented as of this encounter
--- OUTSIDE RECORDS SUMMARY | 2022-06-18 12:03 | XMS_ITS | Encounter Summary ---
:2001 Author Organization [facility] Address [address] [place] [address] Care Team Providers Name Role Phone Unavailable Primary Care Provider Unavailable Encounter Details Date Type Department Care Team Description 01/03/2009 Office Visit-[facility] DE[facility] [address] [facility] [facility] [address] [place] [address] (Wo rk) Social History Tobacco Use Types Packs/Day Years Used Date Smoking Tobacco: Never Assessed Sex Assigned at Date Recorded Female 12/02/2020 1:42 PM CDT documented as of this encounter Progress Notes [address] - 01/03/2009 12:50 PM CDT Division Order Analyst: Dinah Disla Status: Final - Signature Encounter: 03 Jan 2009 Type: Merchandise Adjustment Clerk Visit Nutrition Initial Assessment A: Met with Dakota and her mother in [facility] for assessment of oral intake related to abd. pain and low BMI. wt: 21 kg (10-25th %tile) ht: 122.9 cm (25-50th %tile) BMI: 13.9 kg/m2 (10th %tile) Dakota has been growing and gaining along her own curve which is WNL for many months. She has seen previous dietitians who instructed her to eat anything she can including ice cream, chips, Cheetoh's, and other non-nutritive sources of calories. She does not particularly like milk and recently mom has been encouraging Pediasure however this is not going very well. Mom states Dakota likes fruits and vegetables and she particularly loves yogurt. However, overall Dakota does not have a large appetite confounded with abdominal pain associated with eating. D: Nutrition dx: Potential for underweight related to BMI at 10th %tile and poor appetite. I: Provided mom with a recipe booklet for making high kcal shakes that will provide Dakota with more a wholesome nutrition source as she doesn't like Pediasure. Also reviewed some high kcal snacks that are more nutrient dense such as peanut butter on crackers rather than Cheetoh's. Mom verbalized her un derstanding and was willing to try some of the interventions. Goals 1) 1 nutritional supplement/shake a day 2) Maintain or improve current BMI M/E: Will continue to follow and educate as needed in Peds GI Clinic. Spent 10 minutes with family in education. FAHAD Horvath Electronically signed by:Dinah Disla Jan 03 2009 3:15PM RUBY RAILS DEVELOPER documented in this encounter Plan of Treatment Not on filedocumented as of this encounter Visit Diagnoses Not on filedocumented in this encounter
--- OUTSIDE RECORDS SUMMARY | 2022-06-18 12:03 | XMS_ITS | Encounter Summary ---
:2001 Author Organization [facility] Address [address] [facility] [address] Care Team Providers Name Role Phone Unavailable Primary Care Provider Unavailable Encounter Details Date Type Department Care Team Description 10/27/[address] [facility] [place] [facility] Byron Results XXX RESIGNED XXX [address] [facility] [address] [place], [place] [id number] (Wo rk) Social History Tobacco Use Types Packs/Day Years Used Date Smoking Tobacco: Never Assessed Sex Assigned at Date Recorded Female 12/02/2020 1:42 PM CDT documented as of this encounter Plan of Treatment Not on filedocumented as of this encounter Procedures Procedure Name Priority Date/Time Associated Diagnosis Comme [facility] ECHO Routine 10/27/2008 2:54 PM Results f or this XTHORACIC,MIRZA CDT procedure are in ANOM,COMPLETE the results section. documented in this encounter Results ECHO XTHORACIC,MIRZA ANOM,COMPLETE (10/27/2008 2:54 PM CDT) Component Value Ref Test Analysis Performed At [facility] Method Time Signature IMAGECAST PEDIATRIC ECHOCARDIOGRAM ?? RA DIOLOGY RESULT [facility] ??Echocardiogram Lab RESULTS ? Age: ??2 ? Wt: ? Ht: ? BSA: ? BP: ? Xcelera ? Bakery Products Checker: ??KH INDICATION: ??Murmur ?? A cardiac ultrasound study based on an exam which included: M-Mode ?2-D ?Doppler ? Color Flow CONCLUSION: ?? Normal echocardiogram. There is no evidence of a left to right shunt at atrial, ventricular or great art holly levels. There is good bi-ventricular function. ?? M-Mode Report ?Left Atrium ?? 20 ??mm ?Aortic Root ??17 ??mm ?LV end Diastolic ??36 ?? mm ?LV end Systolic ?? 22 ??mm ? Shortening Fraction ? 39% ?Intravent Septum ??4 ??mm ?LV Post Wall ??4 ??mm ? 1. ?? Normal left atrial dimension. ?? 2. ?? Normal left ventricular dimensions and contractility. ?? TWO-D ECHO: Recordings are performed from parasternal, apical, subcostal and suprasternal notch windows. ??Anatomic relationships are nor mal. ?? Aortic, mitral, pulmonary and tricuspid valve motions are no rmal. ?? The atrial septum is intact. ??Left atrial size is normal. L eft ventricular size and contractility are normal. The pulmonary artery bifurcation and aortic arch appear normal. ?? DOPPLER REPORT: ?? Color flow and spectral Doppler are performed. ??There is tr ivial physiologic mitral regurgitation. There is trivial tricuspid regurgitation with peak velocity unavailable to estimate rig ht sided pressures. There is trivial pulmonary insufficiency. ??Barb l flows are recorded in the right ventricular outflow tract (0.8 m/s ec), main pulmonary artery (1 m/sec), left ventricular outflow tract ( 0.6 m/sec) and ascending aorta (1.2 m/sec). The peak velocity in the transverse aortic arch is 0.8 m/sec and in the proximal desc ending aorta is 1.1 m/sec. Abdominal aorta has a normal systolic up stroke with no evidence of runoff. ??There is no evidence of a left -to-right shunt at atrial, ventricular or great artery levels. ??Four pulmonary veins are seen returning normally to the left atrium. Amaury Valencia MD-Pager [phone] ?? Marli Charles MD-Pager [phone] ?? Arcadio Alarcon MD-Pager [phone] or [phone] Berlin Conn MD-Pager [phone] ?? Brady Hernandez MD-Pager [phone] Rossi Simmons MD-Pager [phone] Specimen (Source) Anatomical Collection Method Collection Time Re ceived Time Location / / Volume Laterality 10/27/2008 2:54 PM CDT Elmer Meneses MD PROCEDURES Performing Organization Address City/State/ZIP Code Phon e Number RADIOLOGY RESULTS documented in this encounter Visit Diagnoses Not on filedocumented in this encounter
--- OUTSIDE RECORDS SUMMARY | 2022-06-18 12:03 | XMS_ITS | Encounter Summary ---
:2001 Author Organization [facility] Address [address] [place] [address] Care Team Providers Name Role Phone Unavailable Primary Care Provider Unavailable Encounter Details Date Type Department Care Team Description 08/21/2004 Operative Report Riaz Hernandez MD (Dba Developer) [facility] [address] [place], [place] [address] (Wo rk) Social History Tobacco Use Types Packs/Day Years Used Date Smoking Tobacco: Never Assessed Sex Assigned at Date Recorded Female 12/02/2020 1:42 PM CDT documented as of this encounter Miscellaneous Notes Op Note - Riaz Hernandez MD - 08/18/2004 12:00 AM TROLLEY OPERATOR : 01 1st ASS'T: 2nd ASS'T: PRE-OPERATIVE DIAGNOSIS: 1. Adenotonsillar hypertrophy. 2. Chronic/recurrent otitis media. POST-OPERATIVE DIAGNOSIS: 1. Adenotonsillar hypertrophy. 2. Chronic/recurrent otitis media. OPERATION: 1. Adenotonsillectomy. 2. Bilateral myringotomy and tubes. ANESTHESIA: General endotracheal. FINDINGS: 1. 2+ tonsils. 2. Occlusion 90% by very large adenoids. 3. Bilateral scant clear effusions. Small left TM perforation with partially extruded tube. INDICATIONS: Dakota Vasquez is a 4-year-old girl with a history of chronic ear problems who required tympanostomy tubes in the past. The right tube has become nonfunctional and she has again developed problems with chronic effusion and hearing loss. There is also history of chronic nasal obstruction and nighttime snoring suggesting adenotonsillar hypertrophy difficulties. In light of this history and the clinical findings of enlarged tonsils, the above procedures were discussed. The risks, alternatives, benefits were reviewed, including such risks as risk of infection, anesthesia, hemorrhage, perforation, otorrhea, hearing loss, and the possibility she may require future surgeries. PROCEDURE: After meeting Dakota and her family in the preop area, she was taken to the operating room and placed on the operating table in supine position. Once adequate general endotracheal anesthesia was achieved, eye protection was placed and the right ear examined with an operating microscope. A small amount of cerumen was removed from the ear canal. She had extruded tympanostomy tube lying in the mid canal which was easily removed. Her tympanic membrane was intact. Once the middle ear landmarks were identified, an anteroinferior radial myringotomy was made. Scant clear effusion was suctioned and a Kel collar-button tube inserted. Floxin Otic drops were then placed in the ear. Left ear was done in a similar fashion, however the tympanostomy tube was still partially within the inferior tympanic membrane. Once the tube was removed, a small defect was identified. The edges were freshened, and a new Kel collar-button tube inserted. Floxin Otic drops were then placed in this ear. The table was then turned and she was placed in the Jeanie position in preparation for the tonsillectomy. Decadron 3 mg had been given I.V. The McIvor oral retractor was used and appropriate drapes were applied. Each tonsil was then carefully dissected from its fossa using needlepoint electrocautery set at 18; good hemostasis was achieved. A red rubber catheter was then used to elevate the soft palate, nasopharynx was indirectly examined. Massive adenoid hypertrophy was noted which near totally obscured the posterior nasal choana. The Gyrus microshaver set at 3000 Hz oscillate was used to debride the adenoid tissue. Packing was placed for several minutes and after the packs were removed, suction electrocautery was used to control bleeding. This opened the nasopharynx widely. Retractor was released and upon reexposure several minutes later, no active bleeding was identified. Nasal cavity, oral cavity were irrigated, nasopharynx and pharynx suctioned. She tolerated the procedure well with minimal blood loss. [id number] RIAZ HERNANDEZ MD MT: Document: [id number] [place], [place] Name: MR#: [id number] -[id number] OPERATIVE REPORT Page 2 of 2 LCN: SHARON DSC: 08/18/2004 [place], [place] Name: MR#: [id number] [id number] -[id number] : Procedure Date: Account #: 2000 [id number] Doctor: RIAZ HERNANDEZ MD OPERATIVE REPORT Page 1 of 2 LEY OPERATOR documented in this encounter Plan of Treatment Not on filedocumented as of this encounter Visit Diagnoses Not on filedocumented in this encounter
--- OUTSIDE RECORDS SUMMARY | 2022-06-18 12:03 | XMS_ITS | Encounter Summary ---
:2000 Author Organization [facility] Address [address] [place] [address] Care Team Providers Name Role Phone Unavailable Primary Care Provider Unavailable Encounter Details Date Type Department Care Team Description 12/01/2008 Office Visit-[facility] Jerad Hooks MD [facility] [place] [facility] [place] [facility] [address] [facility] [address] [facility] [address] [place] [address] 2512 [facility], [address] [place] [address] [place] [address] Social History Tobacco Use Types Packs/Day Years Used Date Smoking Tobacco: Never Assessed Sex Assigned at Date Recorded Female 12/02/2020 1:42 PM CDT documented as of this encounter Progress Notes Jerad Hooks - 12/01/2008 9:30 AM CDT Deputy Fire Chief: Jerad Hooks Status: Final - Signature Encounter: 01 Dec 2008 Type: Peds GI Letter Division of Pediatric Gastroenterology, Hepatology & Nutrition Department of Pediatrics [place] Mail Code [address] [place] [address] Office: [phone] [facility] Fourth Floor, Clinic 4[address] [place] [address] December 02, 2008 David Gibbs MD [facility] [id number] [place] [address]., [address] [place] [address] Urbano Price MD [facility] [address] [place] [address] RE: Dakota Casiano : 2000 TAWNYA: 12/01/2008 Dear Colleagues: I had the pleasure of seeing Dakota Casiano in the Pediatric Gastroenterology Clinic today for a consultation. As you know, Dakota is a 8-year-old female with history of about four years of chronic intermittent abdominal pain which is periumbilical several times weekly, occasionally interfering with her daily activities. It does not seem that her pain is related to food; however, it might be related to mealtime. She did not experience nausea, vomiting; however, had intermittent diarrhea three to four times weekly that she has one episode a day and sometimes chunks of stool and possibly constipation as well. She denies having weight loss; however, her father thinks that she is tired more than usual and her energy level and appetite are decreased. There is no history of unexplained fevers, oral aphthousulcers, joint pains, skin rashes or eye symptoms. Dakota's father admits that he does not remember all the details of her history very well and some of the details of the history come from reviewing previous medical records that have been scanned into our electronic system. In the past, Dakota has been growing at 10th to 25th percentiles for her weight and 50th percentile for her height where she remains now as well. Previous laboratory evaluation included upper GI series,abdominal ultrasound, which were normal, as well as chest CT and CTs of her sinuses, which Dad thinks were normal as well. It is possible that she had an upper endoscopy about three years ago and her dad thinks that results were interpreted as within normal limits. Past Medical History: She was born at term after uncomplicated and delivery and had come in the past to several providers with parental concerns of chronic abdominal pain and failure to gain weight. While during previous interview with Dr. Price, Dakota and Dad thought that she might have foul- smelling stool with possibly fat present in the stool. They, after consideration, thought that it may not be seen in the past several years. Past medical history includes sweat chloride testing, thyroid function testing in the past, as well as celiac, anal testing, endoscopy, liver function tests including albumin, all of which were within normal limits. She also had comprehensive immunologic evaluation that included total IgG and IgA, which were slightly decreased, and other white cell profiles which were normal. She had appropriate reactions to immunizations. In the past she had several episodes of pneumonia, none of which required admission to the hospital, and several urinary tract infections, only one of which required admission to the hospital. She has been diagnosed with vesicoureteral reflux diagnosed at 5 and had recurrent otitis in the past. It is possible that she had tonsillectomy and adenoidectomy as well as ear tube placement, according to her dad. Review of Systems: A comprehensive review of 10 systems was performed and was noncontributory other than as noted above. Family History: Family history is positive for Mom being small as a child and her current height is 5 feet 8 inches. 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 Dad is 5 feet 11 inches and did not have any medical problems in the past. She has a 10-year-old brother who has been diagnosed with pyloric stenosis and since did not have any other medical problems. There is family history of diabetes mellitus, but no history of inflammatory bowel disease, celiac disease, liver or pancreatic problems. She is currently taking omeprazole and amoxicillin. THERE ARE NO KNOWN DRUG OR FOOD ALLERGIES. Physical Examination: On physical exam weight 22.5 kg. Height 122.8 cm (43rd percentile). BMI 13.5 (6th percentile). Pulse 89, blood pressure 99/68. She is alert, active, in no acute distress. Neck: Supple, there is no cervical lymphadenopathy. Mucous membranes moist. No evidence of oral aphthous ulcers. Chest: Clear to auscultation bilaterally. CV: Regular rate and rhythm. Abdomen: Soft, nontender, nondistended, there is no hepatosplenomegaly or masses. Extremities: Warm and well perfused. No cyanosis, clubbing or edema. She looks thin; however, does not have evidence of significant decrease of subcutaneous fat. Dakota has evidence of clubbing primarily seen on the nails of her index and third fingers bilaterally. It is my impression that Dakota is a 8-year-old female with a history of recurrent mild infections, mild immunodeficiency otherwise undefined, history of vesicoureteral reflux treated with prophylactic amoxicillin, and possibly failure to thrive. While she appears thin on exam, a review of her previous growth chart reveals that she continues to grow at the same percentile in terms of height and weightas she did in the past, while review of dietary history possibly suggests low oral caloric intake. Her previous laboratory evaluation from a GI perspective seem to be within normal limits and I have suggested to her dad that I would like to review actual slides from the biopsies performed during EGD three years ago. Next time he should schedule her appointment with a pediatric bankruptcy processor and I haverecommended to her dad to perform additional laboratory evaluation that should be done together withlaboratory evaluation that Dr. Price suggested on November 05, but which however still have not been per formed. The laboratory evaluation that Dr. Price suggested should be performed prior to 9:00 a.m. in the morning and therefore cannot be performed today. I recommended to check her complete blood count, liver function tests, electrolytes, repeat celiac testing and check stool for occult blood, fecal l eukocytes, Giardia, ova and parasites, alpha-1 antitrypsin and fecal elastase. I suggested also to repeat immunoglobulin testing and repeat sweat chloride test. Overall, I believe that by improving caloric intake we will be able to increase Dakota's weight; however, her current weight and height, basedon previous laboratory evaluation and review of growth charts, may be considered adequate as well. Isuggested that I am going to see her back after laboratory test results will be available for my review in approximately six to eight weeks. Thank you very much for allowing me to participate in her care. Overall we spent greater than 50% of a 90-minute visit on review of her previous medical records, past medical history, current symptoms, physical exam findings and future plans. Please do not hesitate to call me if you have further questions. Sincerely, Jerad Hooks MD Pediatric Gastroenterology BS:minerva Electronically signed by:Jerad Hooks M.D. Dec 03 2008 3:09PM CORN SHELLER OPERATOR Electronically signed by:Urbano Price M.D. Feb 24 2009 9:47AM CORN SHELLER OPERATOR documented in this encounter Plan of Treatment Not on filedocumented as of this encounter Visit Diagnoses Not on filedocumented in this encounter
--- OUTSIDE RECORDS SUMMARY | 2022-06-18 12:03 | XMS_ITS | Encounter Summary ---
:2001 Author Organization [facility] Address [facility] [place] [address] Care Team Providers Name Role Phone Unavailable Primary Care Provider Unavailable Encounter Details Date Type Department Care Team Description 12/09/2008 Historic Results [facility] Jerad Hooks MD [facility] [address] [facility] [address] [place] [address] [address] [place] [address] (Wo rk) Social History Tobacco Use Types Packs/Day Years Used Date Smoking Tobacco: Never Assessed Sex Assigned at Date Recorded Female 12/02/2020 1:42 PM CDT documented as of this encounter Plan of Treatment Not on filedocumented as of this encounter Procedures Procedure Name Priority Date/Time Associated Comments Diagnosis OCCULT BLOOD STOOL Routine 12/09/2008 7:00 PM Res ults for this CDT procedure are i n the results section. PANCREATIC ELASTASE 1 Routine 12/09/2008 7:00 PM Results for this CDT procedure are i n the results section. OVA AND PARASITES Routine 12/09/2008 7:00 PM Resu lts for this (QUEST) CDT procedure are i n the results section. OCCULT BLOOD STOOL Routine 12/09/2008 7:00 PM Res ults for this 1-3 SPEC CDT procedure are i n the results section. GIARDIA ANTIGEN Routine 12/09/2008 7:00 PM Result s for this CDT procedure are i n the results section. FECAL LEUKOCYTE SMEAR Routine 12/09/2008 7:00 PM Results for this CDT procedure are i n the results section. ALPHA 1 ANTITRYPSIN Routine 12/09/2008 7:00 PM Re sults for this STOOL CDT procedure are i n the results section. documented in this encounter Results (ABNORMAL) Occult blood stool 1-3 spec (12/09/2008 7:00 PM CDT) Analysis Performed At Patho logist Time Signature Occult Blood Not done NEG MISYS Slide 1 (A) Comment: Charge credited Slide 1 Date Not done MISYS Comment: Charge credited Occult Blood Slide 2 Not done (A) NEG MISYS Comment: Charge credited Slide 2 Date Not done MISYS Occult Blood Slide 3 Not done (A) NEG MISYS Comment: Charge credited Slide 3 Date Not done MISYS Specimen Anatomical Collection Method Collection Time Receive d Time (Source) Location / / Volume Laterality 12/09/2008 7:00 PM 9 6:33 CDT PM CDT Jerad Hooks MD LAB - STOOLS ORDERABLES Performing Organization Address City/[facility]/ZIP Code Phon e Number MISYS Pancreatic elastase 1 (12/09/2008 7:00 PM CDT) Patholo gist Method Time Signature Lab Scanned Laboratory MISYS Result Scanned Result [id number] Specimen Anatomical Collection Method Collection Time Receive d Time (Source) Location / / Volume Laterality 12/09/2008 7:00 PM 9 6:33 CDT PM CDT Jerad Hooks MD LAB - STOOLS ORDERABLES Performing Organization Address City/[facility] Code Phon e Number MISYS Alpha 1 antitrypsin stool (12/09/2008 7:00 PM CDT) P athologist Signature Jxahg-[id number] < 0.12 MISYS p Stool Comment: Reference range: 0.00 to 0.62 Unit: mg/g (Note) Performed by [facility], [address] [place] [id number] [email or web address], Albin Hernández MD - Lab. Director Specimen Anatomical Collection Method Collection Time Receive d Time (Source) Location / / Volume Laterality 12/09/2008 7:00 PM 9 6:33 CDT PM CDT Jerad Hooks MD LAB - STOOLS ORDERABLES Performing Organization Address [facility] Phon e Number MISYS Occult blood stool (12/09/2008 7:00 PM CDT) P athologist Signature Occult Blood Negative NEG MISYS Specimen Anatomical Collection Method Collection Time Receive d Time (Source) Location / / Volume Laterality 12/09/2008 7:00 PM 9 6:58 CDT PM CDT Jerad Hooks MD LAB - STOOLS ORDERABLES Performing Organization Address [facility] Phon e Number MISYS Fecal leukocyte (12/09/2008 7:00 PM CDT) Patholo gist Method Time Signature Specimen Feces MISYS Description Fecal Leucocytes No WBC'S MISYS seen Micro Report FINAL MISYS Status 12/10/2008 Specimen Anatomical Collection Method Collection Time Receive d Time (Source) Location / / Volume Laterality 12/09/2008 7:00 PM 9 6:33 CDT PM CDT Jerad Hooks MD LAB - MICRO GENERAL ORDERABL ES Performing Organization Address [facility] Phon e Number MISYS Giardia antigen (12/09/2008 7:00 PM CDT) [facility] Method Time Signature Specimen Feces MISYS Description Giardia Antigen Negative for MISYS Test Giardia lamblia specific antigen by immunoassay. Micro Report FINAL MISYS Status 12/12/2008 Specimen Anatomical Collection Method Collection Time Receive d Time (Source) Location / / Volume Laterality 12/09/2008 7:00 PM 9 6:34 CDT PM CDT Jerad Hooks MD LAB - MICRO GENERAL ORDERABL ES Performing Organization Address [facility] Phon e Number MISYS Ova and parasites (12/09/2008 7:00 PM CDT) Component Value Ref Test Analysis Performed At [facility] gist Range Method Time Signature Specimen Feces MISYS Description Micro Report FINAL 12/13/2008 MISYS Status Parasite Routine MISYS Routine parasitology exam negative Comment: Specimen received in preservati ve Specimen Anatomical Collection Method Collection Time Receive d Time (Source) Location / / Volume Laterality 12/09/2008 7:00 PM 9 6:34 CDT PM CDT Jerad Hooks MD LAB - MICRO GENERAL ORDERABL ES Performing Organization Address City/State/ZIP Code Phon e Number MISYS documented in this encounter Visit Diagnoses Not on filedocumented in this encounter
--- OUTSIDE RECORDS SUMMARY | 2022-06-18 12:03 | XMS_ITS | Encounter Summary ---
:2000 [facility] Address [address], [place] [address] Care Team Providers Name Role Phone No Primary/Referring, Phy Primary Care Provider Unavailable Reason for Visit Procedure/Equipment (Routine) - Incomplete Specialty Diagnoses / Procedures Referred By Contact Refer red To Contact Procedures Ramon Lo MD XR Cervical Spine 3 [address] [place] [address] Referral ID Status Reason Start Date Expiration Date Visits V isits Requested Authorized [id number] Incomplete 05/12/2019 08/10/2020 1 1 Encounter Details Date Type Department Care Team Description 05/12/2019 Ancillary Procedure [facility] [address] [place] [address] Social History Tobacco Use Types Packs/Day Years Used Date Smoking Tobacco: Never Smokeless Tobacco: Never Sex Assigned at Date Recorded Not on file documented as of this encounter Plan of Treatment Not on filedocumented as of this encounter Procedures Procedure Name Priority Date/Time Associated Diagnosis Comme nts XR THORACIC SPINE 3 STAT 05/12/2019 12:33 AM R esults for this VIEWS CDT procedure are i n the results section. XR CERVICAL SPINE 3 STAT 05/12/2019 12:33 AM R esults for this VIEWS CDT procedure are i n the results section. documented in this encounter Results XR Thoracic Spine 3 Views (05/12/2019 12:33 [...] EXAM: XR THORACIC SPINE 3 VIEWS LOCATION: [facility] DATE/TIME: 05/12/2019 12:33 AM INDICATION: Pain, [...] EXAM: XR CERVICAL SPINE 3 VIEWS LOCATION: [facility] DATE/TIME: 05/12/2019 12:33 AM INDICATION: Pain, [...] EXAM: XR CERVICAL SPINE 3 VIEWS LOCATION: [facility] DATE/TIME: 05/12/2019 12:33 AM INDICATION: Pain, s/p fusion COMPARISON: 09/15/2018 IMPRESSION: Cervical vertebra are normal in height. There is nonspecific generalized reversal of lordosis above the C6-7 level but alignment is grossly normal. Disc spaces are well-maintained. No acute fracture or subluxation. Prevertebral tissues are wi thin normal limits. Ramon Lo MD RAD GD documented in this encounter Visit Diagnoses Not on filedocumented in this encounter Care Teams Health Management Consultant Relationship Specialty Start Date End Date No Primary/Referring, Phy PCP - General 05/11/19 documented as of this encounter
--- OUTSIDE RECORDS SUMMARY | 2022-06-18 12:03 | XMS_ITS | Encounter Summary ---
:2001 Author Organization [facility] Address [address] [place] [address] Care Team Providers Name Role Phone Unavailable Primary Care Provider Unavailable Encounter Details Date Type Department Care Team Description 12/17/2008 Historic Results [facility] Jerad Hooks MD [facility] [address] [facility] [address] [place] [address] [address] [place] [address] (Wo rk) Social History Tobacco Use Types Packs/Day Years Used Date Smoking Tobacco: Never Assessed Sex Assigned at Date Recorded Female 12/02/2020 1:42 PM CDT documented as of this encounter Plan of Treatment Not on filedocumented as of this encounter Procedures Procedure Name Priority Date/Time Associated Diagnosis Comme nts OCCULT BLOOD STOOL Routine 12/17/2008 6:54 PM Res ults for this 1-3 SPEC CDT procedure are i n the results section. documented in this encounter Results Occult blood stool 1-3 spec (12/17/2008 6:54 PM CDT) P athologist Signature Occult Blood Negative NEG MISYS Slide 1 Slide 1 Date 405215 MISYS Occult Blood Negative NEG MISYS Slide 2 Slide 2 Date [id number] MISYS Occult Blood Negative NEG MISYS Slide 3 Slide 3 Date MISYS Specimen Anatomical Collection Method Collection Time Receive d Time (Source) Location / / Volume Laterality 12/17/2008 6:54 PM 9 7:05 CDT PM CDT Jerad Hooks MD LAB - STOOLS ORDERABLES Performing Organization Address City/State/ZIP Code Phon e Number MISYS documented in this encounter Visit Diagnoses Not on filedocumented in this encounter
--- OUTSIDE RECORDS SUMMARY | 2022-06-18 12:03 | XMS_ITS | Encounter Summary ---
:2001 Author Organization [facility] Address [address] [place] [address] Care Team Providers Name Role Phone Unavailable Primary Care Provider Unavailable Encounter Details Date Type Department Care Team Description 12/01/2008 Office Visit-[facility] INTERFACE [facility] DEPT Provider, [facility] Nurs e Social History Tobacco Use Types Packs/Day Years Used Date Smoking Tobacco: Never Assessed Sex Assigned at Date Recorded Female 12/02/2020 1:42 PM CDT documented as of this encounter Progress Notes Provider, [facility] Nurse - 12/01/2008 9:30 AM CDT Mechatronics Technologist: Sarah Duggan Status: Final - Signature Encounter: 01 Dec 2008 Type: Child and Family Life Note Focus: Provide tools to increase coping for future lab draws D: Pt is 8 years old present with father in gastroenterology clinic for chronic recurrent abdominal pain. Pt appears developmentally appropriate I: Medical play kit provided with syringe, tourniquet, band-aids, mask, hat , gloves. Provided verbal explanation of the sweat test. A: Pt dislikes needles. Per father pt screams throughout lab draw. Pt prefers L- mx application to decrease the sensation of the needle insertion. Pt appears calm and relaxed regarding the sweat test. P: Will continue to follow pt as needed for future clinic appointments. Will assess future lab draws. Electronically signed by:Sarah Duggan Dec 01 2008 11:26AM SENIOR ORACLE DATABASE DEVELOPER Provider, [facility] Nurse - 12/01/2008 9:30 AM CDT Mechatronics Technologist: Ana Fitzpatrick Status: Final Encounter: 01 Dec 2008 Type: Rooming Note Informant Parent is informant unless otherwise noted. Reason For Visit tummy pain] Do you have any other appointments, tests or procedures within the [facility] system for this same day? No. Pain Eval Current history of pain associated with this visit is as follows: Location: tummie Quality: throbbing Severity: 8 (Pain scale 1-10, with 10 being the worst) Duration: 20 minutes Timing: after eating. Personal Hx Behavioral history: No tobacco use. Home environment: No secondhand tobacco smoke in home. Vital Signs Position for height measurement: standing Blood pressure taken with: electronic BP machine. Recorded by Ana Fitzpatrick on 01 Dec 2008 09:17 AM BP:99/68, HR: 89 b/min, Height: 122.8 cm, Weight: 20.5 kg, BMI: 13.6 kg/m2. Immunizations Immunizations are reported as current. Allergies No Known Drug Allergy. Current Meds Med list offered and patient declined. Omeprazole 20 MG Capsule Delayed Release;; RPT AAA-MED RECONCILE;; RPT Amoxicillin SUSR;TAKE 1 TEASPOONFUL EVERY 12 HOURS DAILY.; RPT. Teaching Teaching not applicable. Signature Electronically Signed By: Aan Fitzpatrick R.N.; 12/01/2008 9:25 AM SENIOR ORACLE DATABASE DEVELOPER. documented in this encounter Plan of Treatment Not on filedocumented as of this encounter Visit Diagnoses Not on filedocumented in this encounter
--- OUTSIDE RECORDS SUMMARY | 2022-06-18 12:03 | XMS_ITS | Encounter Summary ---
:2000 Author Organization [facility] Address [address] [place] [id number] Care Team Providers Name Role Phone Unavailable Primary Care Provider Unavailable Encounter Details Date Type Department Care Team Description 01/03/2009 Office Visit-[facility] Jerad Hooks MD [facility] [address] [facility] [address] [facility] [address] [place] [address] [address] [facility], [address] [place] [address] [place] [address] Social History Tobacco Use Types Packs/Day Years Used Date Smoking Tobacco: Never Assessed Sex Assigned at Date Recorded Female 12/02/2020 1:42 PM CDT documented as of this encounter Progress Notes Jerad Hooks - 01/03/2009 12:50 PM CDT Manufacturing Team Member: Jerad Hooks Status: Final - Signature Encounter: 03 Jan 2009 Type: Peds GI Letter Division of Pediatric Gastroenterology, Hepatology & Nutrition Department of Pediatrics [place] Mail Code [address] [place] [address] Office: [phone] [facility] Fourth Floor, Clinic [address] [place] [address] January 04, 2009 David Gibbs MD [facility] [address] [place] [address]., [address] [place] [address] Urbano Price MD [facility] [address] [place] [address] RE: Dakota Casiano : 2000 TAWNYA: 01/03/2009 Dear Colleagues: I had the pleasure of seeing Dakota Casiano in the Pediatric Gastroenterology Clinic today for a followup visit. As you know, Dakota is a 8-year-old female with history of several years of chronic recurrentabdominal pain which is periumbilical and occasionally interferes with her daily activities. Since last visit she had a comprehensive laboratory evaluation that included basic metabolic profile, CRP, endomysium antibodies, ESR, CBC, liver function tests, levels of immunoglobulin A, E, G and M, tissue transglutaminase antibodies, sweat chloride test, stool for occult blood, alpha-1 antitrypsin, fecal l eukocytes, Giardia antigen, ova and parasites and finally stool pancreatic elastase. All of aforementioned tests were within normal limits and did not show evidence of infection, inflammation or malabsorption. Dakota continued to complain on abdominal pain, according to her mom; however, had reasonable appetite and gained about 1.1 pounds since previous visit. She did not have nausea, vomiting, diarrhea or blood in her stool, unexplained fevers, oral aphthous ulcers, joint pains, skin rashes or eye symptoms. She continued to grow along previous percentiles. On physical exam today weight 21 kg (19th percentile), height 122.9 cm (40th percentile). BMI 13.9 (11th percentile). Pulse 96, blood pressure 93/66. She was alert, active, in no acute distress. Eyes: PERRLA. Extraocular movements intact. There was no scleral icterus. Neck supple, no cervical lymphadenopathy. Chest: Clear to auscultation bilaterally. CV: Regular rate and rhythm. Abdomen: Soft, nontender, nondistended. There was no hepatosplenomegaly. Extremities: Warm and well perfused. No cyanosis,clubbing or edema. It is my impression that Dakota is a 8-year-old with history of recurrent periumbilical abdominal pain as well as, according to mom, grade 4 vesicoureteral reflux. She did not have VCUG or abdominal ultrasound in a while, and remains on prophylactic amoxicillin. While I think that her pain likely related to irritable bowel syndrome, I am concerned about degree of her renal involvement and whether her symptoms may be related to hydronephrosis or other renal involvement. I recommended her mom to schedule abdominal ultrasound in the nearest future and as well as an appointment at the Pediatric Nephrology office at the [facility] to evaluate VU reflux. I am going to schedule EGD and colonoscopy to complete her evaluation. After results of Pediatric Nephrology visit, as well as EGD and colonoscopy biopsies will be available, I will be able to decide on further management plan. I am going to see her back in about two months. Thank you very much for allowing me to participate in her care. Overall we spent greater than 50% of a 30-minute visit on discussion of Dakota's symptoms, physical exam findings and future plans. Please do not hesitate to call me if you have further questions. d Sincerely, Jerad Hooks MD Pediatric Gastroenterology BS:minerva Electronically signed by:Jerad Hooks M.D. Jan 13 2009 9:06PM CUSTOMER ASSOCIATE Electronically signed by:Urbano Price M.D. Feb 26 2009 10:21AM CUSTOMER ASSOCIATE documented in this encounter Plan of Treatment Not on filedocumented as of this encounter Visit Diagnoses Not on filedocumented in this encounter
--- OUTSIDE RECORDS SUMMARY | 2022-06-18 12:04 | XMS_ITS | Encounter Summary ---
:2001 Author Organization [facility] Address [address], [place] [address] Care Team Providers Name Role Phone Unassigned, Provider Primary Care Provider Unavailable Encounter Details Date Type Department Care Team Description 01/28/2019 Orders Only [facility] CecristobalRaiz Adrenal insufficiency [address] Boyle MD (HRC) (Primary Dx) [place] [address] [address] [place], [place] [id number] Social History Tobacco Use Types Packs/Day Years Used Date Smoking Tobacco: Never Smokeless Tobacco: Never Sex Assigned at Date Recorded Not on file documented as of this encounter Plan of Treatment Not on filedocumented as of this encounter Procedures Procedure Name Priority Date/Time Associated Diagnosis Comme nts ALDOSTERONE SERUM Routine 01/28/2019 11:15 Adrenal insufficien cy Results for this AM CDT (C) procedure are i n the results section. CORTISOL Routine 01/28/2019 11:15 Adrenal insufficiency Re sults for this AM CDT (C) procedure are i n the results section. ALDOSTERONE SERUM Routine 01/28/2019 10:45 Adrenal insufficien cy Results for this AM CDT (HRC) procedure are i n the results section. CORTISOL Routine 01/28/2019 10:45 Adrenal insufficiency Re sults for this AM CDT (HRC) procedure are i n the results section. ALDOSTERONE SERUM Routine 01/28/2019 10:23 Adrenal insufficien cy Results for this AM CDT (C) procedure are i n the results section. CORTISOL Routine 01/28/2019 10:23 Adrenal insufficiency Re sults for this AM CDT (HRC) procedure are i n the results section. ALDOSTERONE SERUM Routine 01/28/2019 10:03 Adrenal insufficien cy Results for this AM CDT (HRC) procedure are i n the results section. CORTISOL Routine 01/28/2019 10:03 Adrenal insufficiency Re sults for this AM CDT (HRC) procedure are i n the results section. CBC AND DIFFERENTIAL Routine 01/28/2019 9:25 Resu lts for this PANEL AM CDT procedure are i n the results section. RENIN ACTIVITY Routine 01/28/2019 9:25 Results fo r this AM CDT procedure are i n the results section. ALDOSTERONE SERUM Routine 01/28/2019 9:25 Results for this AM CDT procedure are i n the results section. ACTH Routine 01/28/2019 9:25 Results for this AM CDT procedure are i n the results section. FACTOR 13 ANTIGEN Routine 01/28/2019 9:25 Results for this AM CDT procedure are i n the results section. PLATELET FUNCTION Routine 01/28/2019 9:25 Results for this TIME AM CDT procedure are i n the results section. COMPLETE BLOOD Routine 01/28/2019 9:25 Results fo r this COUNT-W/DIFF AM CDT procedure are i n the results section. NUTRITION SUPPORT Routine 01/28/2019 9:25 Results for this PANEL AM CDT procedure are i n the results section. VONWILLEBRAND PANEL Routine 01/28/2019 9:25 Resul ts for this AM CDT procedure are i n the results section. FIBRINOGEN ACTIVITY Routine 01/28/2019 9:25 Adrenal insufficie ncy Results for this AM CDT (HRC) procedure are i n the results section. CORTISOL Routine 01/28/2019 9:25 Results for this AM CDT procedure are i n the results section. FERRITIN Routine 01/28/2019 9:25 Results for this AM CDT procedure are i n the results section. IRON PROFILE Routine 01/28/2019 9:25 Results for this (IRON,TIBC,%SAT.(CALC AM CDT proced ure are in )) the results section. documented in this encounter Results Aldosterone Serum (01/28/2019 11:15 AM CDT) P athologist Signature Aldosterone 7.1 ng/dL 01/29/2019 [facility] 1:02 PM CDT Comment: INTERPRETIVE INFORMATION: Aldosterone, S charley Reference intervals for age 15 and older : Upright ......... ??4.0 - 31.0 ng/dL Supine .......... ??Less than or equal to 16.0 ng/dL Unspecified ..... ??Less than or equal to 31.0 ng/dL Normal serum levels of aldosterone are d ependent on the sodium intake and whether the patient is uprigh t or supine. High sodium intake will tend to suppress serum aldos terone, whereas low sodium intake will elevate serum aldosterone. T he reference intervals for serum aldosterone are based on normal so dium intake. Access complete set of age- and/or gende r-specific reference intervals for this test in the [facility] ratory Test Directory ([employer]). Performed by [facility], [address] [place] [id number] [email or web address], Tenzin Holguin MD, Lab. Director Specimen Anatomical Collection Method / Collection Time Recei donal Time (Source) Location / Volume Laterality Blood Venipuncture / 01/28/2019 11:15 9 Unknown AM CDT 11:27 AM CDT Aime Zaidi MD LAB_1 Performing Organization Address [facility] Phon e Number [facility] [address] [place] [address] [phone] (ABNORMAL) Cortisol (01/28/2019 11:15 AM CDT) athologist Signature Cortisol 40.1 (H) 2.9 - 19.4 01/28/2019 [facility] mcg/dL 12:43 PM CDT HOSPITAL Specimen Anatomical Collection Method / Collection Time Recei donal Time (Source) Location / Volume Laterality Blood Venipuncture / 01/28/2019 11:15 9 Unknown AM CDT 11:27 AM CDT [facility] - 01/28/2019 12:43 PM C DT Expected values AM (before 10am): 3.7-19.4 mcg/dL PM (after 5pm): 2.9-17.3 mcg/dL Aime Zaidi MD LAB_1 Performing Organization Address City/State/ZIP Code Phon e Number [facility] [address] [place] [address] [facility] [address], [place] [id number] [place] [address] Aldosterone Serum (01/28/2019 10:45 AM CDT) P athologist Signature Aldosterone 9.1 ng/dL 01/29/2019 [facility] 1:02 PM CDT Comment: INTERPRETIVE INFORMATION: Aldosterone, S charley Reference intervals for age 15 and older : Upright ......... ??4.0 - 31.0 ng/dL Supine .......... ??Less than or equal to 16.0 ng/dL Unspecified ..... ??Less than or equal to 31.0 ng/dL Normal serum levels of aldosterone are d ependent on the sodium intake and whether the patient is uprigh t or supine. High sodium intake will tend to suppress serum aldos terone, whereas low sodium intake will elevate serum aldosterone. T he reference intervals for serum aldosterone are based on normal so dium intake. Access complete set of age- and/or gende r-specific reference intervals for this test in the [facility] r[facility] Test Directory ([employer]). Performed by [facility], [address] [place] [address] [email or web address], Tenzin Holguin MD, Lab. Director Specimen Anatomical Collection Method / Collection Time Recei donal Time (Source) Location / Volume Laterality Blood Venipuncture / 01/28/2019 10:45 9 Unknown AM CDT 10:56 AM CDT Aime Zaidi MD LAB_1 Performing Organization Address City/State/ZIP Code Phon e Number [facility] [address] [place], [place] [phone] (ABNORMAL) Cortisol (01/28/2019 10:45 AM CDT) P athologist Signature Cortisol 30.0 (H) 2.9 - 19.4 01/28/2019 [facility] mcg/dL 11:38 AM CDT HOSPITAL Specimen Anatomical Collection Method / Collection Time Recei donal Time (Source) Location / Volume Laterality Blood Venipuncture / 01/28/2019 10:45 9 Unknown AM CDT 10:56 AM CDT [facility] - 01/28/2019 11:38 AM C DT Expected values AM (before 10am): 3.7-19.4 mcg/dL PM (after 5pm): 2.9-17.3 mcg/dL Aime Zaidi MD LAB_1 Performing Organization Address [facility] Phon e Number [phone] [address], [facility] (ABNORMAL) Cortisol (01/28/2019 10:23 AM CDT) P athologist Signature Cortisol 27.2 (H) 2.9 - 19.4 01/28/2019 [facility] mcg/dL 11:22 AM CDT HOSPITAL Specimen Anatomical Collection Method / Collection Time Recei donal Time (Source) Location / Volume Laterality Blood Venipuncture / 01/28/2019 10:23 9 Unknown AM CDT 10:37 AM CDT [facility] - 01/28/2019 11:22 AM C DT Expected values AM (before 10am): 3.7-19.4 mcg/dL PM (after 5pm): 2.9-17.3 mcg/dL Aime Zaidi MD LAB_1 Performing Organization Address [facility] Phon e Number [phone] [address], [facility] Aldosterone Serum (01/28/2019 10:23 AM CDT) P athologist Signature Aldosterone 10.6 ng/dL 01/29/2019 [facility] 1:02 PM CDT Comment: INTERPRETIVE INFORMATION: Aldosterone, S charley Reference intervals for age 15 and older : Upright ......... ??4.0 - 31.0 ng/dL Supine .......... ??Less than or equal to 16.0 ng/dL Unspecified ..... ??Less than or equal to 31.0 ng/dL Normal serum levels of aldosterone are d ependent on the sodium intake and whether the patient is uprigh t or supine. High sodium intake will tend to suppress serum aldos terone, whereas low sodium intake will elevate serum aldosterone. T he reference intervals for serum aldosterone are based on normal so dium intake. Access complete set of age- and/or gende r-specific reference intervals for this test in the [employer] Test Directory ([employer]). Performed by [facility], [address] [facility] [place] [address] [email or web address], Tenzin Holguin MD, Lab. Director Specimen Anatomical Collection Method / Collection Time Recei donal Time (Source) Location / Volume Laterality Blood Venipuncture / 01/28/2019 10:23 9 Unknown AM CDT 10:37 AM CDT Aime Zaidi MD LAB_1 Performing Organization Address City/State/ZIP Code Phon e Number [facility] [address] [place] [phone] Aldosterone Serum (01/28/2019 10:03 AM CDT) athologist Signature Aldosterone 10.1 ng/dL 01/29/2019 [facility] 1:02 PM CDT Comment: INTERPRETIVE INFORMATION: Aldosterone, S charley Reference intervals for age 15 and older : Upright ......... ??4.0 - 31.0 ng/dL Supine .......... ??Less than or equal to 16.0 ng/dL Unspecified ..... ??Less than or equal to 31.0 ng/dL Normal serum levels of aldosterone are d ependent on the sodium intake and whether the patient is uprigh t or supine. High sodium intake will tend to suppress serum aldos terone, whereas low sodium intake will elevate serum aldosterone. T he reference intervals for serum aldosterone are based on normal so dium intake. Access complete set of age- and/or gende r-specific reference intervals for this test in the [employer] Test Directory ([employer]). Performed by [facility], [address] [place] [address] www.[email or web address], Tenzin Holguin MD, Lab. Director Specimen Anatomical Collection Method / Collection Time Recei donal Time (Source) Location / Volume Laterality Blood Venipuncture / 01/28/2019 10:03 9 Unknown AM CDT 10:10 AM CDT Aime Zaidi MD LAB_1 Performing Organization Address City/[facility]/ZIP Code Phon e Number [facility] [address] [place] [phone] (ABNORMAL) Cortisol (01/28/2019 10:03 AM CDT) P athologist Signature Cortisol 24.2 (H) 2.9 - 19.4 01/28/2019 [facility] mcg/dL 10:52 AM CDT HOSPITAL Specimen Anatomical Collection Method / Collection Time Recei donal Time (Source) Location / Volume Laterality Blood Venipuncture / 01/28/2019 10:03 9 Unknown AM CDT 10:10 AM CDT [facility] - 01/28/2019 10:52 AM C DT Expected values AM (before 10am): 3.7-19.4 mcg/dL PM (after 5pm): 2.9-17.3 mcg/dL Aime Zaidi MD LAB_1 Performing Organization Address [facility] Phon e Number [id number] [place] [address] Fibrinogen Activity (01/28/2019 9:25 AM CDT) P athologist Signature Fibrinogen 285 195 - 446 01/28/2019 [facility] Activity mg/dL 10:52 AM CDT HOSPITAL Specimen Anatomical Collection Method / Collection Time Recei donal Time (Source) Location / Volume Laterality Blood Venipuncture / 01/28/2019 9:25 01/28/2019 9:49 Unknown AM CDT AM CDT Riaz Amin MD LAB_1 Performing Organization Address City/[facility] Phon e Number [address] [address] [phone] [place] [address] (ABNORMAL) Complete Blood Count-W/Diff (01/28/2019 9:25 AM CDT) Analysis Performed At Patho logist Time Signature WBC 5.5 3.5 - 10.5 01/28/2019 [facility] x10(9)/L 9:51 AM CDT HOSPITAL RBC 4.31 3.90 - 01/28/2019 [facility] 5.03 9:51 AM CDT HOSPITAL x10(12)/L Hemoglobin 13.3 12.0 - 01/28/2019 [facility] 15.5 g/dL 9:51 AM CDT HOSPITAL HCT 40.1 34.9 - 01/28/2019 [facility] 44.5 % 9:51 AM CDT HOSPITAL MCV 93.0 80.0 - 01/28/2019 [facility] 100.0 fL 9:51 AM CDT HOSPITAL MCH 30.9 27.6 - 01/28/2019 [facility] 33.3 pg 9:51 AM CDT HOSPITAL MCHC 33.2 31.5 - 01/28/2019 [facility] 35.2 g/dL 9:51 AM CDT HOSPITAL RDW 11.6 (L) 11.9 - 01/28/2019 [facility] 15.5 % 9:51 AM CDT HOSPITAL Platelets 246 150 - 450 01/28/2019 [facility] x10(9)/L 9:51 AM CDT HOSPITAL Automated NRBC 0 <=0 /100 01/28/2019 [facility] WBC 9:51 AM CDT HOSPITAL Neutrophil 2.4 1.7 - 7.0 01/28/2019 [facility] Absolute 10(9)/L 9:51 AM CDT HOSPITAL Lymphocyte 2.4 1.0 - 4.8 01/28/2019 [facility] Absolute 10(9)/L 9:51 AM CDT HOSPITAL Monocytes 0.5 0.2 - 0.9 01/28/2019 [facility] Absolute 10(9)/L 9:51 AM CDT HOSPITAL Eosinophil 0.2 0.1 - 0.5 01/28/2019 [facility] Absolute 10(9)/L 9:51 AM CDT HOSPITAL Basophil 0.0 0.0 - 0.3 01/28/2019 [facility] Absolute 10(9)/L 9:51 AM CDT HOSPITAL Immature Gran % 0.0 0.0 - 0.5 01/28/2019 [facility] % 9:51 AM CDT HOSPITAL Specimen Anatomical Collection Method / Collection Time Recei donal Time (Source) Location / Volume Laterality Blood Venipuncture / 01/28/2019 9:25 01/28/2019 9:49 Unknown AM CDT AM CDT Sarah Monterroso APRN, CNP LAB_1 Performing Organization Address City/[facility]/ZIP Code Phon e Number [phone] [address], [facility] [phone] Factor 13 Antigen (01/28/2019 9:25 AM CDT) P athologist Signature Factor 13 94 57 - 192 % 01/28/2019 [facility] Antigen 1:17 PM CDT HOSPITAL Specimen Anatomical Collection Method / Collection Time Recei donal Time (Source) Location / Volume Laterality Blood Venipuncture / 01/28/2019 9:25 01/28/2019 9:49 Unknown AM CDT AM CDT Sarah Monterroso APRN, CNP LAB_1 Performing Organization Address City/[facility]/ZIP [facility] Phon e Number [address] [address] [place] [address], [facility] Platelet Function Time (01/28/2019 9:25 AM CDT) P athologist Signature Plt Function 142 <185 Seconds 01/28/2019 [facility] Time 10:16 AM CDT HOSPITAL Collagen/Epine phrine Specimen Anatomical Collection Method / Collection Time Recei donal Time (Source) Location / Volume Laterality Blood Venipuncture / 01/28/2019 9:25 01/28/2019 9:49 Unknown AM CDT AM CDT Sarah Monterroso APRN, CNP LAB_1 Performing Organization Address City/[facility]/ZIP [facility] Phon e Number [address] [address], [facility] Vonwillebrand Panel (01/28/2019 9:25 AM CDT) Patholo gist Method Time Signature Protime 13.8 11.8 - 14.6 01/28/2019 [facility] Seconds 12:41 PM CDT HOSPITAL INR 1.1 0.9 - 1.1 01/28/2019 [facility] 12:41 PM CDT HOSPITAL APTT 30.3 22.5 - 36.5 01/28/2019 [facility] Seconds 12:41 PM CDT HOSPITAL Thrombin Time 16.4 13.8 - 18.7 01/28/2019 [facility] Seconds 12:41 PM CDT HOSPITAL Factor 8 78 70 - 160 % 01/28/2019 [facility] 12:41 PM CDT HOSPITAL [facility] Agn 76 50 - 160 % 01/28/2019 [facility] 12:41 PM CDT [facility]OSPITAL [facility] 77 55 - 200 % 01/28/2019 [facility] Factor 12:41 PM CDT HOSPITAL Specimen Anatomical Collection Method / Collection Time Recei donal Time (Source) Location / Volume Laterality Blood Venipuncture / 01/28/2019 9:25 01/28/2019 9:49 Unknown AM CDT AM CDT Sarah Monterroso APRN, CNP LAB_1 Performing Organization Address [facility]/ZIP [facility] [place] [address] Ferritin (01/28/2019 9:25 AM CDT) P athologist Signature Ferritin 33 9 - 204 01/28/2019 [facility] ng/mL 10:32 AM CDT HOSPITAL Specimen Anatomical Collection Method / Collection Time Recei donal Time (Source) Location / Volume Laterality Blood Venipuncture / 01/28/2019 9:25 01/28/2019 9:46 Unknown AM CDT AM CDT Sarah Monterroso APRN, CNP LAB_1 Performing Organization Address [facility] [place] [address] Iron Profile (Iron,TIBC,%Sat.(Calc)) (01/28/2019 9:25 AM CDT) P athologist Signature Iron 170 50 - 170 01/28/2019 [facility] mcg/dL 10:27 AM CDT HOSPITAL Transferrin 290 180 - 382 01/28/2019 [facility] mg/dL 10:27 AM [facility] TIBC, Calculated 363 240 - 450 01/28/2019 [facility] mcg/dL 10:27 AM [facility] % Saturation, 47 10 - 50 % 01/28/2019 [facility] Calculated 10:27 AM [facility] Specimen Anatomical Collection Method / Collection Time Recei donal Time (Source) Location / Volume Laterality Blood Venipuncture / 01/28/2019 9:25 01/28/2019 9:46 Unknown AM CDT AM CDT Sarah Monterroso APRN, ORDER ADMINISTRATOR LAB_1 Performing Organization Address City/State/ZIP Code Phon e Number [facility] [address] [place] [phone] [address] [address], [facility] (ABNORMAL) Nutrition Support Panel (01/28/2019 9:25 AM CDT) athologist Signature Sodium 140 136 - 145 01/28/2019 [facility] mmol/L 12:56 PM [facility] Potassium 3.4 (L) 3.5 - 5.1 01/28/2019 [facility] mmol/L 12:56 PM [facility] Chloride 104 98 - 109 01/28/2019 [facility] mmol/L 12:56 PM [facility] CO2 25 20 - 29 01/28/2019 [facility] mmol/L 12:56 PM [facility] Anion Gap 11 7 - 16 01/28/2019 [facility] mmol/L 12:56 PM [facility] Glucose 62 (L) 70 - 100 01/28/2019 [facility] mg/dL 12:56 PM [facility] Comment: The given reference range is fo r the fasting state. Non-fasting reference range for glucose is 70 - 180 mg/dL. Calcium 9.7 8.4 - 10.4 mg/dL 01/28/2019 12:56 PM T [facility] BUN 9 7 - 26 mg/dL 01/28/2019 12:56 PM [facility] Creatinine 0.75 0.49 - 0.84 mg/dL 01/28/2019 12:56 PM C DT [facility] GFR, Estimated >60 mL/min/1.73m2 01/28/2019 12:56 PM T [facility] Comment: The GFR formula is valid only f or patients 18 years of age and older GFR, Est If >60 mL/min/1.73m2 12:56 PM CDT [facility] Comment: The GFR formula is valid only f or patients 18 years of age and older Phosphorus 3.6 2.9 - 5.0 mg/dL 01/28/2019 12:56 PM [facility] CDT Bilirubin, Total 1.1 0.2 - 1.2 mg/dL 01/28/2019 12:56 PM [facility] CDT Albumin 3.8 3.5 - 5.0 g/dL 01/28/2019 12:56 PM [facility] CDT Triglyceride 56 <=149 mg/dL 01/28/2019 12:56 PM [facility] CDT Alkaline Phosphatase 70 48 - 95 U/L 01/28/2019 12:56 PM [facility] CDT AST (SGOT) 15 10 - 40 U/L 01/28/2019 12:56 PM [facility] CDT Magnesium 2.1 1.6 - 2.6 mg/dL 01/28/2019 12:56 PM [facility] CDT Hours Fasting Unknown 01/28/2019 12:56 PM [facility] CDT Specimen Anatomical Collection Method / Collection Time Recei donal Time (Source) Location / Volume Laterality Blood Venipuncture / 01/28/2019 9:25 01/28/2019 9:46 Unknown AM CDT AM CDT Sarah Monterroso APRN, ORDER ADMINISTRATOR LAB_1 Performing Organization Address City/State/[place] [phone] [phone] Aldosterone Serum (01/28/2019 9:25 AM CDT) P athologist Signature Aldosterone 8.2 ng/dL 01/29/2019 [facility] 1:02 PM CDT Comment: INTERPRETIVE INFORMATION: Aldosterone, S charley Reference intervals for age 15 and older : Upright ......... ??4.0 - 31.0 ng/dL Supine .......... ??Less than or equal to 16.0 ng/dL Unspecified ..... ??Less than or equal to 31.0 ng/dL Normal serum levels of aldosterone are d ependent on the sodium intake and whether the patient is uprigh t or supine. High sodium intake will tend to suppress serum aldos terone, whereas low sodium intake will elevate serum aldosterone. T he reference intervals for serum aldosterone are based on normal so dium intake. Access complete set of age- and/or gende r-specific reference intervals for this test in the [facility] ratory Test Directory ([employer]). Performed by [facility], [address] [place] [address] www.[email or web address], Tenzin Holguin MD, Lab. Director Specimen Anatomical Collection Method / Collection Time Recei donal Time (Source) Location / Volume Laterality Blood Venipuncture / 01/28/2019 9:25 01/28/2019 9:49 Unknown AM CDT AM CDT Sarah Monterroso APRN, [facility] LAB_1 Performing Organization Address City/State/ZIP Code Phon e Number [facility] [address], [place] [phone] Renin Activity (01/28/2019 9:25 AM CDT) athologist Signature Renin Activity 3.0 ng/mL/hr 01/29/2019 [facility] 3:10 PM [facility] Comment: INTERPRETIVE INFORMATION: Renin Activity Adult, Normal sodium diet: ??Supine ................. 0.2-1.6 ng/m L/hr ??Upright ................ 0.5-4.0 ng/m L/hr Children, Normal sodium diet, Supine: ?? (1-7 days) ..... 2.0-35.0 ng/ mL/hr ??Cord blood ............. 4.0-32.0 ng/ mL/hr ??1-12 mos ............... 2.4-37.0 ng/ mL/hr ??13 mos-3 yrs ........... 1.7-11.2 ng/ mL/hr ??4-5 yrs ................ 1.0- 6.5 ng/ mL/hr ??6-10 yrs ............... 0.5- 5.9 ng/ mL/hr ??11-15 yrs .............. 0.5- 3.3 ng/ mL/hr Children, normal sodium diet, Upright: ??0-3 yrs ................ Not Availabl e ??4-5 yrs ................ Less than or equal to 15 ng/mL/hr ??6-10 yrs ............... Less than or equal to 17 ng/mL/hr ??11-15 yrs .............. Less than or equal to 16 ng/mL/hr Plasma renin activity measures enzyme ab ility to convert angiotensinogen to angiotensin I and is limited by the availability of angiotensinogen. Plasma renin activity is not an accurate indicator of enzyme activity wh en angiotensinogen is decreased. See Compliance Statement D: [email or web address] Performed by [facility], [address] [place] [address] www.[email or web address], Tenzin Holguin MD, Lab. Director Specimen Anatomical Collection Method / Collection Time Recei donal Time (Source) Location / Volume Laterality Blood Venipuncture / 01/28/2019 9:25 01/28/2019 9:49 Unknown AM CDT AM CDT Sarah Monterroso APRN, ORDER ADMINISTRATOR LAB_1 Performing Organization Address City/State/ZIP Code Phon e Number [facility] [address] [place], [place] [phone] ACTH (01/28/2019 9:25 AM CDT) athologist Signature ACTH 14 6 - 55 01/29/2019 [facility] pg/mL 11:37 AM CD[facility] Comment: INTERPRETIVE INFORMATION: Adrenocorticot ropic Hormone Some types of synthetic ACTH are not det ected by this assay. Access complete set of age- and/or gende r-specific reference intervals for this test in the [facility] Test Directory ([employer]). Performed by [facility], [address] [place] [address] www.[email or web address], Tenzin Holguin MD, Lab. Director Specimen Anatomical Collection Method / Collection Time Recei donal Time (Source) Location / Volume Laterality Blood Venipuncture / 01/28/2019 9:25 01/28/2019 9:49 Unknown AM CDT AM CDT Sarah Monterroso APRN, CNP LAB_1 Performing Organization Address [facility] Phon e Number [facility] [address] [place] [phone] (ABNORMAL) Cortisol (01/28/2019 9:25 AM CDT) athologist Signature Cortisol 22.2 (H) 2.9 - 19.4 01/28/2019 [facility] mcg/dL 10:32 AM CDT HOSPITAL Specimen Anatomical Collection Method / Collection Time Recei donal Time (Source) Location / Volume Laterality Blood Venipuncture / 01/28/2019 9:25 01/28/2019 9:46 Unknown AM CDT AM CDT Formerly [facility] - 01/28/2019 10:32 AM C DT Expected values AM (before 10am): 3.7-19.4 mcg/dL PM (after 5pm): 2.9-17.3 mcg/dL Sarah Monterroso APRN, CNP LAB_1 Performing Organization Address [facility] Phon e Number [address] [address], [facility] documented in this encounter Visit Diagnoses Diagnosis Adrenal insufficiency (HRC) - Primary Glucocorticoid deficiency documented in this encounter Care Teams Fruit Raiser Relationship Specialty Start Date End Date Unassigned, Provider PCP - General 01 05/10/[address] [place] [id number] documented as of this encounter
--- OUTSIDE RECORDS SUMMARY | 2022-06-18 12:04 | XMS_ITS | Encounter Summary ---
:2001 Author Organization [facility] Address [address], [place] [address] Care Team Providers Name Role Phone Unassigned, Provider Primary Care Provider Unavailable Encounter Details Date Type Department Care Team Description 12/23/2018 Orders Only Terrie Reyes AP RN, Scoliosis; [facility] OIL AND GAS SPECIALIST Dorsalgia; [facility] [address] Scoliosis; [address] [place] [address] [place] [address] Social History Tobacco Use Types Packs/Day Years Used Date Smoking Tobacco: Never Smokeless Tobacco: Never Sex Assigned at Date Recorded Not on file documented as of this encounter Plan of Treatment Not on filedocumented as of this encounter Procedures Procedure Name Priority Date/Time Associated Diagnosis Comme nts MRSA, MOLECULAR Routine 12/23/2018 9:34 AM Scoliosis Results for this DETECTION CDT Dorsalgia procedure are in Scoliosis the results Dorsalgia section. documented in this encounter Results MRSA, Molecular Detection (12/23/2018 9:34 AM CDT) [facility] Method Time Signature MRSA Not Detected Not Detected 12/23/2018 [facility] 7:38 PM CDT HOSPITAL Specimen Anatomical Collection Method Collection Time Receive d Time (Source) Location / / Volume Laterality Swab (Source ENTIRE ANTERIOR Non-blood 12/23/2018 9:34 AM 2018 Required) NARIS / Unknown Collection / CDT 10:47 AM CDT Unknown Narrative [facility] - 12/23/2018 7:38 PM CD T Methodology: Qualitative real-time PCR a ssay Terrie Vazquez FLOORLEADER, OIL AND GAS SPECIALIST LAB_1 Performing Organization Address City/State/ZIP Code Phon e Number [id number] [place] [address] [phone] documented in this encounter Visit Diagnoses Diagnosis Scoliosis Scoliosis (and kyphoscoliosis), idiopath ic Dorsalgia Pain in thoracic spine documented in this encounter Care Teams Dispensing Optician Apprentice Relationship Specialty Start Date End Date Unassigned, Provider PCP - General 01 05/10/19 [address] [place] [address] documented as of this encounter
--- OUTSIDE RECORDS SUMMARY | 2022-06-18 12:04 | XMS_ITS | Encounter Summary ---
:2001 Author Organization [facility] Address [address] [address] Care Team Providers Name Role Phone Unassigned, Provider Primary Care Provider Unavailable Encounter Details Date Type Department Care Team Description 11/25/2013 Orders Only HP Claims MD John Security Contact Bill [address] [place] [address] Mailstop [id number] [phone] (Wo rk) Social History Tobacco Use Types Packs/Day Years Used Date Smoking Tobacco: Never Assessed Sex Assigned at Date Recorded Not on file documented as of this encounter Plan of Treatment Not on filedocumented as of this encounter Visit Diagnoses Not on filedocumented in this encounter Care Teams Reverberatory Skimmer Relationship Specialty Start Date End Date Unassigned, Provider PCP - General 01 05/10/[address] [place] [address] documented as of this encounter
--- OUTSIDE RECORDS SUMMARY | 2022-06-18 12:04 | XMS_ITS | Encounter Summary ---
:2001 Author Organization [facility] Address [address] [place] [address] Care Team Providers Name Role Phone Unassigned, Provider Primary Care Provider Unavailable Reason for Visit Reason Comments CONSULT Encounter Details Date Type Department Care Team Description 08/21/2012 Telephone [facility] Meagan Haile MD CONSULT [address] [address] [place] [address] [place] [address] (Wo rk) Social History Tobacco Use Types Packs/Day Years Used Date Smoking Tobacco: Never Assessed Sex Assigned at Date Recorded Not on file documented as of this encounter Nursing Notes Maggi Bloom - 09/12/2012 4:13 PM CST Left voice message for pt's mother that pt's records are available for garbage pick up man at the [facility] in [place]. If any questions or concerns, mom to call our main number and ask for nurse triage. Records placed at the [facility] in [place]. RATORY WORKER Tiff Stanton MA - 09/12/2012 9:10 AM CST Faxed the Referral order to Jaleesa at [facility] at [phone]. Fax confirmed. RATORY WORKER Siri Alonzo - 09/11/2012 3:17 PM CST [facility] calling request referral for [place] to be faxed to [phone] attn: Jaleesa. Maggi Bloom - 09/04/2012 4:52 PM CST Spoke with pt's mother. She is going to transfer care to [facility] on Saturday, as [facility] is not able to give continuous referrals for the different specialty doctors that pt sees. Will call back on Saturday with a fax number to fax records to. RATORY WORKER Donay Lindo - 09/04/2012 11:18 AM CST mom retuning call -Mom hung up, Maggi Bloom - 09/02/2012 2:32 PM CST Spoke with pt's mother. Per [facility], pt will need weekly visits for 6 months. Per pt's mother, [facility] to write a letter of medical necessity stating that there is no place else in [place] for this type of treatment. Mom to call later this week with scheduled dates for these appointments. Also, mom to get us a copy of the letter from [facility] to give to managed care. RATORY WORKER Maggi Bloom - 08/27/2012 4:45 PM CST Faxed all referral information to [facility]. [facility] approved the followin) [facility] GI, Dr. Humphries DOS: 05/20/12, 06/13/12, 08/18/12, 09/01/12; Pt approved for 4 more visits this year. 2) [facility], Dr. Jamshid Bland DOS: 07/07/12, 10/27/12 Mom notified of approvals. Mom to call prior to any further appointments with these providers to getapproval and referrals to insurance. Also, recommended pt follow-up in clinic with Dr. Haile, as pt has only been seen once last March. Mom verbalized understanding of information given. Will call mom next 09/02/12 to see what [facility] decides for weekly visits for pt. Will have to see if [facility] will be able to send referrals for this, depending on diagnosis and reasoning. RATORY WORKER Yolanda Haile, RN - 08/21/2012 12:08 PM CST Spoke to [facility] regarding referral, regarding coverage in 2011 patient was assigned to [facility] and assignment was never changed to [facility] therefore [facility] can not process this referral request. In addition patient appears to have different coverage starting in 2012. RATORY WORKER Marina Muro - 08/21/2012 8:23 AM CST Referral/Consult Caller Name/Relationship: [facility] Primary Care Provider: Meagan Haile MD What referral is needed? to [facility] Why is referral needed? pt is being seen for headaches (Caller gave diagnosis code of 784.0) Insurance Carrier: [facility] Member ID: n/a -- provider # for [facility] is [id number] Appointment already scheduled? yes When/With whom/Where? first appt was 07/07/12 What is needed from us? call Shira to discuss referral Call back phone or cell phone: [phone] Best time to call back number: anytime Is it OK to leave a confidential message on this voicemail? yes *ECODE RATORY WORKER documented in this encounter Plan of Treatment Not on filedocumented as of this encounter Visit Diagnoses Not on filedocumented in this encounter Care Teams Restorative Coordinator Relationship Specialty Start Date End Date Unassigned, Provider PCP - General 01 05/10/[address] [place] [address] documented as of this encounter
--- OUTSIDE RECORDS SUMMARY | 2022-06-18 12:04 | XMS_ITS | Encounter Summary ---
:2001 Author Organization [facility] Address [address] [place] [address] Care Team Providers Name Role Phone Unassigned, Provider Primary Care Provider Unavailable Reason for Referral Therapies (Routine) - Closed Specialty Diagnoses / Procedures Referred By Contact Refer red To Contact Diagnoses Hamstring strain, unspecified laterality, initial encounter David Smith MD [address] [place] [id number] Referral ID Status Reason Start Date Expiration Date Visits Requ ested Visits Authorized [id number] Closed 01/28/2018 03/29/2018 1 1 Scheduling Instructions Your provider has recommended an appoint ment with [facility]. You may call [phone] to schedule your appoi ntment. If you do not schedule an appointment within the next 1 to 3 business days, we will call you to help arrange your appointment. We suggest you call your [employer] insurance company about your coverage and benefits for this appointment. Reason for Visit Reason Comments Knee Pain or Injury lt distal thigh and knee elmer n 6-24-18 lacrosse Encounter Details Date Type Department Care Team Description 01/28/2018 Office Visit [facility] Orthopedic David Smith, Jermaine ball, Urgent Care unspecified [address] [place] [address] DR castillo, initial [place], [place] [address] [place], [place] encounter (Primary [phone] Dx) [phone] (Wo rk) Social History Tobacco Use Types Packs/Day Years Used Date Smoking Tobacco: Never Smokeless Tobacco: Never Sex Assigned at Date Recorded Not on file documented as of this encounter Last Filed Vital Signs Vital Sign Reading Time Taken Comments Blood Pressure - - Pulse - - Temperature 36.8 ??C (98.3 ??F) 01/28/2018 3:35 PM CDT Respiratory Rate - - Oxygen Saturation - - Inhaled Oxygen Concentration - - Weight 49.3 kg (108 lb 9.6 oz) 01/28/2018 3:35 PM CDT Height 160 cm (5' 3) 01/28/2018 3:35 PM CDT Body Mass Index 19.24 01/28/2018 3:35 PM CDT Body Mass Index Percentile 29.97 % 01/28/2018 3:35 PM CD T Growth Chart: [facility] (Girls, 2-20 Years) documented in this encounter Patient Instructions Patient InstructionsMilla Guardado OA-C - 01/28/2018 2:[address] David Smith MD Sports & Orthopaedic Medicine [facility] Medication Requests: Prescriptions are not filled on Weekends or on Weekdays after 3:00PM For all medication refills: Request a refill using [employer] or contact your Pharmacy [facility] Nurse Line: Please contact [facility] Nurse line for all medical requests and questions at [phone] MRI Scheduling: To schedule an MRI at [facility] please call [phone] Paperwork Requests: Questions regarding FMLA or disability paperwork please call [phone] Workers??? Compensation: Please contact our department for any Work Comp concerns at Email: [email or web address] Start therapy for hamstring strain Athlete visit: play when pain free Avoid activities that cause pain. Increase activities as tolerated by pain. F/u 4 weeks if not back to normal. documented in this encounter Progress Notes David Smith MD - 01/28/2018 2:40 PM CDT [facility] Acute [facility] 01/28/2018 Chief Complaint: Left thigh and knee pain History of Present Illness: Dakota Casiano is a 17 y.o. female who presents with her mother for evaluation of left thigh and knee pain. Pain began on 01/26/18 while playing in a lacrosse tournament. Pain is localized to the posterior knee and has become more painful over the past few days. Pain is exacerbated with extension. Treated with ice, heat, and ibuprofen. Denies any numbness or tingling, and voices no other concerns. Review of Systems: (+) Left thigh and knee pain (-) Fever (-) Rash (-) Numbness (-) Tingling Past Medical History: The patient has no past medical history on file. Past Surgical History: The patient has no past surgical history on file. Social History: Plays lacrosse. Presents with her mother. Physical Exam: Temp 36.8 ??C (98.3 ??F) (Tympanic) Ht 1.6 m (5' 3) Wt 49.3 kg (108 lb 9.6 oz) BMI 19.24 kg/m2 Skin: Intact, without erythema or ecchymosis. Neuro: Normal. Cardiovascular: Normal capillary refill. Left Knee: Tender over hamstring musculature. Pain with hip extension against gravity. Pain with resisted knee flexion. Non-tender along the patellar retinaculum. No knee effusion. Extensor mechanism is intact. Difficulty fulling extending knee with hip flexed. Non-tender along the patella tendon. Non-tender over the medial and lateral joint lines. Assessment: Diagnosis and Associated Orders ICD-10-CM 1. Hamstring strain, unspecified laterality, initial encounter S76.319A Plan: Educated the patient and mother regarding her condition and management. After a discussion, recommended beginning formal physical therapy, and activities as tolerated. The patient and mother verbalizedunderstanding. Follow-up in four to six weeks if not better. Scribe Disclosure: I, Derian Quinn, am serving as a scribe to document services personally performed by David Smith MD at this visit, based upon the provider's statements to me. All documentation has been reviewedby the aforementioned provider prior to being entered into the official medical record. Portions of this medical record were completed by a scribe. UPON MY REVIEW AND AUTHENTICATION BY ELECTRONIC SIGNATURE, this confirms (a) I performed the applicable clinical services, and (b) the recordis accurate. David Smith MD documented in this encounter Plan of Treatment Scheduled Referrals Name Type Priority Associated Diagnoses Order S chedule Physical Therapy Referral Routine Hamstring strain, unspec ified Ordered: 01/28/2018 laterality, initial encounte r documented as of this encounter Visit Diagnoses Diagnosis Hamstring strain, unspecified laterality , initial encounter - Primary documented in this encounter Care Teams Stacker Driver Relationship Specialty Start Date End Date Unassigned, Provider PCP - General 01 05/10/[address] [place] [id number] documented as of this encounter
--- OUTSIDE RECORDS SUMMARY | 2022-06-18 12:04 | XMS_ITS | Encounter Summary ---
:2001 Author Organization [facility] Address [address], [place] [address] Care Team Providers Name Role Phone Unassigned, Provider Primary Care Provider Unavailable Reason for Visit Procedure/Equipment (Routine) - Incomplete Specialty Diagnoses / Procedures Referred By Contact Refer red To Contact Procedures Keily Silver MD XR Portable Abd Flat [address] [place] [address] Referral ID Status Reason Start Date Expiration Date Visits V isits Requested Authorized [id number] Incomplete 01/30/2016 04/30/2017 1 1 Encounter Details Date Type Department Care Team Description 01/30/2016 [facility] [address] [place], [place] [id number] Social History Tobacco Use Types Packs/Day Years Used Date Smoking Tobacco: Never Assessed Sex Assigned at Date Recorded Not on file documented as of this encounter Plan of Treatment Not on filedocumented as of this encounter Procedures Procedure Name Priority Date/Time Associated Diagnosis Comme nts XR PORTABLE ABD STAT 01/30/2016 9:37 PM Result s for this FLAT CDT procedure are i n the results section. documented in this encounter Results XR Portable Abd Flat (01/30/2016 9:37 PM CDT) Anatomical Region Laterality Modality Abdomen Computed Radiography Specimen (Source) Anatomical Collection Method Collection Time Re ceived Time Location / / Volume Laterality 01/30/2016 9:37 PM CDT Narrative 01/30/2016 9:41 PM CDT XR PORTABLE ABD FLAT 01/30/2016 9:37 PM INDICATION: Abdominal pain and distentio n. No bowel movement COMPARISON: None. FINDINGS: Flores humaira fixation of the thoracolumbar spine. Thoracolumbar dextroscoliosis. Large amount of stool in the transverse colon. The bowel gas pattern is normal. No gross free int raperitoneal air. No radiopaque urolithiasis. Procedure Note Federico Milian MD - 01/30/2016Form atting of this note might be different from the original. XR PORTABLE ABD FLAT 01/30/2016 9:37 PM INDICATION: Abdominal pain and distentio n. No bowel movement COMPARISON: None. FINDINGS: Flores humaira fixation of the thoracolumbar spine. Thoracolumbar dextroscoliosis. Large amount of stool in the transverse colon. The bowel gas pattern is normal. No gross free int raperitoneal air. No radiopaque urolithiasis. Chintan Cobos MD RAD PORTABLE documented in this encounter Visit Diagnoses Not on filedocumented in this encounter Care Teams Returned Goods Receiving Clerk Relationship Specialty Start Date End Date Unassigned, Provider PCP - General 01 05/10/[address] [place] [id number] documented as of this encounter
--- OUTSIDE RECORDS SUMMARY | 2022-06-18 12:04 | XMS_ITS | Encounter Summary ---
:2001 Author Organization [facility] Address [address] [place] [address] Care Team Providers Name Role Phone Unassigned, Provider Primary Care Provider Unavailable Reason for Visit Procedure/Equipment (Routine) - Incomplete Specialty Diagnoses / Procedures Referred By Contact Refer red To Contact Diagnoses Arthralgia of both ankles Derian Chandra MD Procedures MR Ankle Lt WO IV Cont [address] [place] [address] Referral ID Status Reason Start Date Expiration Date Visits V isits Requested Authorized [id number] Incomplete 11/29/2018 02/28/2020 1 1 Encounter Details Date Type Department Care Team Description 11/29/2018 Ancillary [facility] MRI Derian Chandra, Arthralgia of both Procedure [address] [place] [address] [phone] Social History Tobacco Use Types Packs/Day Years Used Date Smoking Tobacco: Never Smokeless Tobacco: Never Sex Assigned at Date Recorded Not on file documented as of this encounter Plan of Treatment Not on filedocumented as of this encounter Procedures Procedure Name Priority Date/Time Associated Diagnosis Comme nts MR ANKLE LT WO IV STAT 11/29/2018 4:55 PM Arthralgia of bot h Results for this CONT CDT ankles procedure are i n the results section. documented in this encounter Results MR Ankle Lt WO IV Cont (11/29/2018 4:55 PM CDT) Anatomical Region Laterality Modality Lower Extremity, Ankle, Foot, Leg, Skeletal, Foot & Left Magnetic Resonance Ankle Specimen (Source) Anatomical Collection Method Collection Time Re ceived Time Location / / Volume Laterality 11/29/2018 4:25 PM CDT Impressions 11/29/2018 5:02 PM CDT IMPRESSION: ?? 1. 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 2. ??Small-volume fluid in the peroneal tendon sheath, which may represent mild tenosynovitis. The peroneal tendons are unremarkable without evidence of significant tendinopathy or tear. 3. ??Otherwise unremarkable MRI of the a nkle. Narrative 11/29/2018 5:02 PM CDT TECHNIQUE: ?? Routine MRI of the left ankle was performed without contrast. COMPARISON: ??Radiograph dated 8 FINDINGS: TENDONS: ??Small volume fluid in the inf ramalleolar segment of the peroneal tendon sheath, which may represent mild tenosynovitis. The peroneal tendons appear normal without significant tendinopathy or tear. The tibialis posterior, flexor dig itorum and flexor hallucis longus tendons are normal. The tibialis anterior and the visualized extensor tendons are normal. LIGAMENTS: ??The anterior and posterior talofibular ligaments and the calcaneofibular ligament are normal. The anterior and posterior inferior tibiofibular ligaments are normal. The deltoid ligament complex is intact. JOINTS: ??The tibiotalar, talonavicular, calcaneocuboid and subtalar joints are unremarkable without evidence of focal cartilage defect. The sinus tarsi is normal. The talocalcaneal ligament is normal. ACHILLES TENDON/PLANTAR FASCIA: ??The Ac hilles tendon and plantar fascia are normal. There is no significant fluid in the retrocalcaneal bursa. MARROW AND SOFT TISSUES: ??There is a fi brous calcaneonavicular coalition (axial slice 24) with mild marrow edema about the synchondrosis. Otherwise marrow signal is normal. No soft tissue mass is ident ified. Specifically, no soft tissue mass es or other abnormality in the tarsal tunnel. Multiloculated ganglion cyst at the posterior lateral aspect of the ankle measuring 0.8 x 0.7 x 0.6 cm (axial slice 17 to the: Sagittal slice 19). Procedure Note Jacob Zamora MD - 11/29/2018Fo rmatting of this note might be different from the original. TECHNIQUE: Routine MRI of the left ankle was performed without contrast. COMPARISON: Radiograph dated 03/21/2018 FINDINGS: TENDONS: Small volume fluid in the infra malleolar segment of the peroneal tendon sheath, which may represent mild tenosynovitis. The peroneal tendons appear normal without significant tendinopathy or tear. The tibialis posterior, flexor digitorum and flexor hallucis longus tendons are normal. The tibialis anterior and the visualized extensor tendons are normal. LIGAMENTS: The anterior and posterior ta lofibular ligaments and the calcaneofibular ligament are normal. The anterior and posterior inferior tibiofibular ligaments are normal. The deltoid ligament complex is intact. JOINTS: The tibiotalar, talonavicular, c alcaneocuboid and subtalar joints are unremarkable without evidence of focal cartilage defect. The sinus tarsi is normal. The talocalcaneal ligament is normal. ACHILLES TENDON/PLANTAR FASCIA: The Achi lles tendon and plantar fascia are normal. There is no significant fluid in the retrocalcaneal bursa. MARROW AND SOFT TISSUES: There is a fibr ous calcaneonavicular coalition (axial slice 24) with mild marrow edema about the synchondrosis. Otherwise marrow signal is normal. No soft tissue mass is identified. Specifically, no soft tissue masses or other abnormali ty in the tarsal tunnel. Multiloculated ganglion cyst at the posterior lateral aspect of the ankle measuring 0.8 x 0.7 x 0.6 cm (axial slice 17 to the: Sagittal slice 19). IMPRESSION IMPRESSION: 1. Fibrous calcaneonavicular coalition w ith mild marrow edema about the synchondrosis. 2. Small-volume fluid in the peroneal te ndon sheath, which may represent mild tenosynovitis. The peroneal tendons are unremarkable without evidence of significant tendinopathy or tear. 3. Otherwise unremarkable MRI of the ank le. Derian Chandra MD RAD MRI documented in this encounter Visit Diagnoses Diagnosis Arthralgia of both ankles documented in this encounter Care Teams Stage Technician Relationship Specialty Start Date End Date Unassigned, Provider PCP - General 01 05/10/[address] [place] [id number] documented as of this encounter
--- OUTSIDE RECORDS SUMMARY | 2022-06-18 12:04 | XMS_ITS | Encounter Summary ---
:2000 Author Organization [facility] Address [address] [place] [address] Care Team Providers Name Role Phone Unassigned, Provider Primary Care Provider Unavailable Reason for Visit Reason Comments Forms Encounter Details Date Type Department Care Team Description 08/20/2012 Telephone [facility] Meagan Haile MD Forms [id number]. [address] [place] [address] [place] [address] (Wo rk) Social History Tobacco Use Types Packs/Day Years Used Date Smoking Tobacco: Never Assessed Sex Assigned at Date Recorded Not on file documented as of this encounter Nursing Notes Tiff Stanton MA - 08/21/2012 9:28 AM CST Called pt's home to inform them that their [facility] paperwork has been completed and signed. Faxed to [employer] for them at [phone]. Fax confirmed. Sent pt's original copy to pt's home address. CE TECHNOLOGY INSTRUCTOR Maggi Bloom - 08/20/2012 4:35 PM CST Received [facility] paperwork. Paperwork completed and place on Dr. Meagan Haile's desk to sign. Contacted managed care to process a referral to insurance for EEG. documented in this encounter Plan of Treatment Not on filedocumented as of this encounter Visit Diagnoses Not on filedocumented in this encounter Care Teams Real Time Trader Relationship Specialty Start Date End Date Unassigned, Provider PCP - General 01 05/10/19 [address] [place] [address] documented as of this encounter
--- OUTSIDE RECORDS SUMMARY | 2022-06-18 12:04 | XMS_ITS | Encounter Summary ---
:2000 [facility] Address [address], [place] [address] Care Team Providers Name Role Phone Unassigned, Provider Primary Care Provider Unavailable Encounter Details Date Type Department Care Team Description 01/30/2016 Orders Only External to [facility] er Social History Tobacco Use Types Packs/Day Years Used Date Smoking Tobacco: Never Assessed Sex Assigned at Date Recorded Not on file documented as of this encounter Plan of Treatment Not on filedocumented as of this encounter Procedures Procedure Name Priority Date/Time Associated Diagnosis Comme nts SCANNED ORDER 01/30/2016 12:00 AM Results for this CDT procedure are i n the results section . documented in this encounter Results SCANNED ORDER (01/30/2016 12:00 AM CDT) Specimen (Source) Anatomical Location Collection Method / Collectio n Time Received Time / Laterality Volume 01/30/2016 Narrative This result has an attachment that is no t available. Provider Cayden Coburn DUMMY/OTHER/AR documented in this encounter Visit Diagnoses Not on filedocumented in this encounter Care Teams Telephone Solicitor Supervisor Relationship Specialty Start Date End Date Unassigned, Provider PCP - General 01 05/10/[address] [place] [id number] documented as of this encounter
--- OUTSIDE RECORDS SUMMARY | 2022-06-18 12:04 | XMS_ITS | Encounter Summary ---
:2000 Author Organization [facility] Address [address] [address] Care Team Providers Name Role Phone Unassigned, Provider Primary Care Provider Unavailable Reason for Visit Reason Comments RESULTS, TEST Encounter Details Date Type Department Care Team Description 12/03/2012 Notes/Orders [place] [address] [address] [place] [address] [place] [address] [phone] (Wo rk) Social History Tobacco Use Types Packs/Day Years Used Date Smoking Tobacco: Never Assessed Sex Assigned at Date Recorded Not on file documented as of this encounter Progress Notes Robyn Grant - 12/03/2012 5:04 PM CDT mail received today from [facility], clinical doc, summary and recommendations regarding pt and future care. forward to provider folder. (Dr. 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
--- OUTSIDE RECORDS SUMMARY | 2022-06-18 12:04 | XMS_ITS | Encounter Summary ---
:2000 Author Organization [facility] Address [address] [place] [address] Care Team Providers Name Role Phone Unassigned, Provider Primary Care Provider Unavailable Encounter Details Date Type Department Care Team Description 12/12/2015 Lab Visit Security Contact Ronny Erwin MD CONV OF DATA PN TO RONNY Social History Tobacco Use Types Packs/Day Years Used Date Smoking Tobacco: Never Assessed Sex Assigned at Date Recorded Not on file documented as of this encounter Plan of Treatment Not on filedocumented as of this encounter Procedures Procedure Name Priority Date/Time Associated Diagnosis Comme [facility] SURGICAL PATH Routine 12/12/2015 11:12 AM Results for this CDT procedure are i n the results section . documented in this encounter Results Surgical Path (12/12/2015 11:12 AM CDT) [facility] gist Method Time Signature Histology Patient Name: DAKOTA VASQUEZ [facility] Taken: 12/08/2015 09:29:00 Received: 12/08/2015 10:29:00 Reported: 12/12/2015 11:12:06 Physician(s): BRISA MARIN Final Diagnosis Lower sacral nerve root, biopsy -- Ganglion *Electronically Signed Out By* Nettie Farmer MD Clinical Diagnosis Tethered cord, scoliosis Gross Description The specimen is received in formalin and labeled with the pa tient's name and nerve root lesion. ??The specimen consists of a 0.2 cm pink-white tissue. ??The specimen is entirely submitted in one cassette . ??mc Microscopic Description Microscopic examination is performed on one slide. ?? Nettie Farmer MD [facility] Department of Pathology [address] [place] [phone] Specimen (Source) Anatomical Collection Method Collection Time Re ceived Time Location / / Volume Laterality 12/12/2015 11:12 AM CDT [facility] Performing Organization Address City/State/ZIP Code Phon e Number [address] [address] documented in this encounter Visit Diagnoses Not on filedocumented in this encounter Care Teams Law Instructor Relationship Specialty Start Date End Date Unassigned, Provider PCP - General 01 05/10/19 [address] [place] [address] documented as of this encounter
--- OUTSIDE RECORDS SUMMARY | 2022-06-18 12:04 | XMS_ITS | Encounter Summary ---
:2000 Author Organization [email or web address] Address [address] [place] [address] Care Team Providers Name Role Phone Unassigned, Provider Primary Care Provider Unavailable Reason for Referral Therapies (Routine) - Closed Specialty Diagnoses / Procedures Referred By Contact Refer red To Contact Diagnoses Bilateral ankle pain, unspecified chronicity Desire Acevedo MD [address] [facility] [address] [place] [address] Referral ID Status Reason Start Date Expiration Date Visits Requ ested Visits Authorized [id number] Closed 03/21/2018 05/20/2018 1 1 Scheduling Instructions Your provider has recommended an appoint ment with [facility]. You may call [phone] to schedule your appoi ntment. If you do not schedule an appointment within the next 1 to 3 business days, we will call you to help arrange your appointment. We suggest you call your [employer] insurance company about your coverage and benefits for this appointment. Procedure/Equipment (Routine) - Incomplete Specialty Diagnoses / Procedures Referred By Contact Refer red To Contact Diagnoses Bilateral ankle pain, unspecified chronicity Desire Acevedo MD Procedures XR Ankle Lt [address] [place] [address] [address] [place] [address] Referral ID Status Reason Start Date Expiration Date Visits V isits Requested Authorized [id number] Incomplete 03/21/2018 06/20/2019 1 1 Procedure/Equipment (Routine) - Incomplete Specialty Diagnoses / Procedures Referred By Contact Refer red To Contact Diagnoses Bilateral ankle pain, unspecified chronicity Desire Acevedo MD Procedures XR Ankle Rt 3 Views [address] [facility] [place] [address] Referral ID Status Reason Start Date Expiration Date Visits V isits Requested Authorized [id number] Incomplete 03/21/2018 06/20/2019 1 1 Reason for Visit Reason Comments ANKLE PAIN L>R ankle 2 weeks Encounter Details Date Type Department Care Team Description 03/21/2018 Office Visit [facility] Desire Acevedo al ankle pain, Urgent Care MD [place] unspecified [address] [facility] [address] [facility] chronicity (Primary [place], [place] [address] [place], [place] Dx) [phone] (Wo rk) Social History Tobacco Use Types Packs/Day Years Used Date Smoking Tobacco: Never Smokeless Tobacco: Never Sex Assigned at Date Recorded Not on file documented as of this encounter Last Filed Vital Signs Vital Sign Reading Time Taken Comments Blood Pressure - - Pulse - - Temperature 36.9 ??C (98.5 ??F) 03/21/2018 10:42 AM CDT Respiratory Rate - - Oxygen Saturation - - Inhaled Oxygen Concentration - - Weight 49.9 kg (110 lb) 03/21/2018 10:42 AM CDT Height 160 cm (5' 3) 03/21/2018 10:42 AM CDT Body Mass Index 19.49 03/21/2018 10:42 AM CDT Body Mass Index Percentile 32.65 % 03/21/2018 10:42 AM C DT Growth Chart: CDC (Girls, 2-20 Years) documented in this encounter Patient Instructions Patient InstructionsLeJuliet jain MA - 03/21/2018 10:[address] Desire Acevedo MD Sports & Orthopaedic Medicine [facility] Medication Requests: Prescriptions are not filled on Weekends or on Weekdays after 3:00PM For all medication refills: Request a refill using MyChart or contact your Pharmacy [facility] Nurse Line: Please contact [facility] Nurse line for all medical requests and questions at [phone] MRI Scheduling: To schedule an MRI at [facility] please call [phone] Paperwork Requests: Questions regarding FMLA or disability paperwork please call [phone] Phone lines are answered 8AM to 5PM Saturday - Saturday Workers??? Compensation: Please contact our department for any Work Comp concerns at Email: [email or web address] Bilateral ankle tendonitis/ peroneal Physical therapy Follow up as needed with Dr. Acevedo documented in this encounter Progress Notes Desire Acevedo MD - 03/21/2018 8:08 PM CDT NAME: DAKOTA VASQUEZ MR#: [id number] CSN: [id number] AUTHENTICATING CLINICIAN: Desire Acevedo MD CONFIRM #: [id number] LOC: 711 CLINIC PROGRESS NOTE DATE OF VISIT: 03/21/2018 : 2001 CHIEF COMPLAINT: Bilateral ankle pain. 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 She noticed it on and off. Every timeshe would have a lacrosse tournament, it would be slightly more uncomfortable. There was 1 tournament where she would wear taping and that felt like it helps, but this last weekend, when she was at a tournament, it did not feel like it helped. She has a hard time localizing the pain and points along the anterior and lateral aspects of the ankle, left and right as the areas of discomfort. She has tried ice, heat and ibuprofen. It hurts to even walk. She has an underlying history of surgical intervention on her spine x4 and so she will occasionally limp, so her mom is not sure whether the limping shehas is her normal or is different. She rates her pain between 7 to 10/10. PHYSICAL EXAM: Thin, pleasant female. Temp 98.5, height 63, weight 110. Accompanied by her mom. Examination of her left foot and ankle show her to have normal alignment, normal positioning, no effusion, no ecchymosis. She is tender throughout the entire lateral ankle and lateral foot. Tender slightly over the medialankle, nontender on the Lisfranc complex. First or 2nd metatarsal rays are nontender. Otherwise, there is tenderness diffusely. I seem to reproduce maximal tenderness when palpating along her peroneal tendon and she has maximum pain with resisted eversion and passive inversion, both localized along the peroneal tendon regions. The exam on that right ankle is the same, slightly less prominent, but thesame areas are tender and the same reproduction of pain with resisted eversion and passive inversionlocalized to the peroneal tendon. IMAGING STUDIES: Radiograph of the right foot and ankle are obtained, both showing there to be well-preserved joint spaces, normal appearing talus. No OCD lesions apparent and intact mortise. ASSESSMENT: Bilateral ankle tendinitis, primarily peroneal tendon. PLAN: Given the diffuse areas of tenderness throughout the entirety of the foot and ankle, will assume that there is some bony contusions in addition to the peroneal tendinitis and I am recommending that shespend 3 weeks not doing any sporting activities, working just with physical therapy. Further evaluation if we are not seeing symptom resolution over the following 3 weeks. HDT:MEDQ C: R:03/21/18 20:13 CONFIRM#:[id number] documented in this encounter Plan of Treatment Scheduled Referrals Name Type Priority Associated Diagnoses Order S chedule Physical Therapy Referral Routine Bilateral ankle pain, Or dered: 03/21/2018 unspecified chronicity documented as of this encounter Results XR Ankle Lt 3 Views (03/21/2018 11:40 AM CDT) Anatomical Region Laterality Modality Lower Extremity, Ankle, Foot & Ankle Dig ital Radiography Specimen (Source) Anatomical Location Collection Method / Collectio n Time Received Time / Laterality Volume Narrative 03/27/2018 9:55 AM CDT Radiograph of the right foot and ankle show there to be well-preserved joint spaces, normal appearing talus. ?? No OCD lesions apparent and intact mortise. Desire AVENDAÑO XR Ankle Rt 3 Views (03/21/2018 11:40 AM CDT) Anatomical Region Laterality Modality Lower Extremity, Ankle, Foot & Ankle Dig ital Radiography Specimen (Source) Anatomical Location Collection Method / Collectio n Time Received Time / Laterality Volume Narrative 03/27/2018 9:55 AM CDT Radiograph of the right foot and ankle show there to be well-preserved joint spaces, normal appearing talus. ?? No OCD lesions apparent and intact mortise. Desire AVENDAÑO documented in this encounter Visit Diagnoses Diagnosis Bilateral ankle pain, unspecified chroni city - Primary Bilateral ankle pain, unspecified chroni city documented in this encounter Care Teams Field Organizer Relationship Specialty Start Date End Date Unassigned, Provider PCP - General 01 05/10/[address] [place] [id number] documented as of this encounter
--- OUTSIDE RECORDS SUMMARY | 2022-06-18 12:04 | XMS_ITS | Encounter Summary ---
:2000 Author Organization [facility] Address [address] [address] Care Team Providers Name Role Phone Unassigned, Provider Primary Care Provider Unavailable Encounter Details Date Type Department Care Team Description 12/01/2018 Orders Only [facility] Aime Zaidi Vitamin D deficiency; [address] Zabala MD Tuberculosis of spine; [place] [address] Scoliosis; [place], [place] Vitamin D def iciency; [address] Tuberculosis of spine; [phone] Scoliosis; (Work) Scoliosis; [phone] Scoliosis (Fax) Social History Tobacco Use Types Packs/Day Years Used Date Smoking Tobacco: Never Smokeless Tobacco: Never Sex Assigned at Date Recorded Not on file documented as of this encounter Progress Notes Mariluz Nieto RN - 12/01/2018 2:03 PM CDT Duplicate labs. Pt seen at [facility]. Mariluz Nieto RN 12/11/2018, 12:51 PM documented in this encounter Plan of Treatment Not on filedocumented as of this encounter Procedures Procedure Name Priority Date/Time Associated Comments Diagnosis CA/CREA RATIO, URINE Routine 12/01/2018 3:06 PM Vitamin D R esults for this CDT deficiency procedure are in Tuberculosis of the results spine section. Scoliosis Vitamin D deficiency Tuberculosis of spine Scoliosis SODIUM, URINE RANDOM Routine 12/01/2018 3:06 PM Vitamin D R esults for this CDT deficiency procedure are in Tuberculosis of the results spine section. Scoliosis Vitamin D deficiency Tuberculosis of spine [place]oliosis OSMOLALITY, URINE Routine 12/01/2018 3:06 PM Vitamin D Resu lts for this CDT deficiency procedure are in Tuberculosis of the results spine section. [place] Vitamin D deficiency Tuberculosis of spine [place]oli[place] RENIN ACTIVITY Routine 12/01/2018 2:53 PM Vitamin D Results for this CDT deficiency procedure are in Tuberculosis of the results spine section. [place] Vitamin D deficiency Tuberculosis of spine Scoliosis INSULIN-LIKE GROWTH Routine 12/01/2018 2:53 PM Vitamin D Re sults for this FACTOR CDT deficiency procedure are in Tuberculosis of the results spine section. [place]oli[place] Vitamin D deficiency Tuberculosis of spine Scoliosis HUMAN GROWTH HORMONE Routine 12/01/2018 2:53 PM Vitamin D R esults for this CDT deficiency procedure are in Tuberculosis of the results spine section. [place]oli[place] Vitamin D deficiency Tuberculosis of spine Scoliosis C TELOPEPTIDE BETA Routine 12/01/2018 2:53 PM Vitamin D Res ults for this CROSS LINKED CDT deficiency procedure are in Tuberculosis of the results spine section. [place]oli[place] Vitamin D deficiency Tuberculosis of spine [place]oli[place] THYROID PEROXIDASE Routine 12/01/2018 2:53 PM Vitamin D Res ults for this (TPO) AB CDT deficiency procedure are in Tuberculosis of the results spine section. [place]oli[place] Vitamin D deficiency Tuberculosis of spine [place]oli[place] VITAMIN D 25-HYDROXY, Routine 12/01/2018 2:53 PM Vitamin D Results for this TOTAL CDT deficiency procedure are in Tuberculosis of the results spine section. [place]oliosis Vitamin D deficiency Tuberculosis of spine [place] LDL CHOLESTEROL, Routine 12/01/2018 2:53 PM Vitamin D Resul ts for this DIRECT MEASURED CDT deficiency procedure are in Tuberculosis of the results spine section. [place]oliosis Vitamin D deficiency Tuberculosis of spine [place]oliosis T3, FREE Routine 12/01/2018 2:53 PM Vitamin D Results f or this CDT deficiency procedure are in Tuberculosis of the results spine section. [place]oliosis Vitamin D deficiency Tuberculosis of spine [place]oliosis TSH, SENSITIVE Routine 12/01/2018 2:53 PM Vitamin D Results for this CDT deficiency procedure are in Tuberculosis of the results spine section. Scoliosis Vitamin D deficiency Tuberculosis of spine [place]oliosis BASIC METABOLIC PANEL Routine 12/01/2018 2:53 PM Vitamin D Results for this CDT deficiency procedure are in Tuberculosis of the results spine section. [place]oliosis Vitamin D deficiency Tuberculosis of spine [place]oliosis IONIZED CALCIUM, Routine 12/01/2018 2:53 PM Vitamin D Resul ts for this WHOLE BLOOD (VENOUS) CDT deficiency procedure are in Tuberculosis of the results spine section. Scoliosis Vitamin D deficiency Tuberculosis of spine Scoliosis COMPLETE BLOOD Routine 12/01/2018 2:53 PM Vitamin D Results for this COUNT-NO DIFF CDT deficiency procedure are in Tuberculosis of the results spine section. Scoliosis Vitamin D deficiency Tuberculosis of spine Scoliosis FREE T4 Routine 12/01/2018 2:53 PM Vitamin D Results f or this CDT deficiency procedure are in Tuberculosis of the results spine section. Scoliosis Vitamin D deficiency Tuberculosis of spine Scoliosis CORTISOL Routine 12/01/2018 2:53 PM Vitamin D Results f or this CDT deficiency procedure are in Tuberculosis of the results spine section. [place]oliosis Vitamin D deficiency Tuberculosis of spine Scoliosis OSMOLALITY Routine 12/01/2018 2:53 PM Vitamin D Results f or this CDT deficiency procedure are in Tuberculosis of the results spine section. Scoliosis Vitamin D deficiency Tuberculosis of spine [place]oliosis MAGNESIUM Routine 12/01/2018 2:53 PM Vitamin D Results f or this CDT deficiency procedure are in Tuberculosis of the results spine section. Scoliosis Vitamin D deficiency Tuberculosis of spine Scoliosis ESTRADIOL Routine 12/01/2018 2:53 PM Vitamin D Results f or this CDT deficiency procedure are in Tuberculosis of the results spine section. Scoliosis Vitamin D deficiency Tuberculosis of spine Scoliosis DHEA SULFATE Routine 12/01/2018 2:53 PM Vitamin D Results f or this CDT deficiency procedure are in Tuberculosis of the results spine section. Scoliosis Vitamin D deficiency Tuberculosis of spine Scoliosis C-REACTIVE PROTEIN Routine 12/01/2018 2:53 PM Vitamin D Res ults for this CDT deficiency procedure are in Tuberculosis of the results spine section. [place]oliosis Vitamin D deficiency Tuberculosis of spine Scoliosis PROLACTIN Routine 12/01/2018 2:53 PM Vitamin D Results f or this CDT deficiency procedure are in Tuberculosis of the results spine section. [place]oliosis Vitamin D deficiency Tuberculosis of spine Scoliosis LH Routine 12/01/2018 2:53 PM Vitamin D Results f or this CDT deficiency procedure are in Tuberculosis of the results spine section. [place]oliosis Vitamin D deficiency Tuberculosis of spine Scoliosis FSH Routine 12/01/2018 2:53 PM Vitamin D Results f or this CDT deficiency procedure are in Tuberculosis of the results spine section. [place]oliosis Vitamin D deficiency Tuberculosis of spine Scoliosis HGB A1C Routine 12/01/2018 2:53 PM Vitamin D Results f or this CDT deficiency procedure are in Tuberculosis of the results spine section. [place]oliosis Vitamin D deficiency Tuberculosis of spine [place]oliosis PHOSPHORUS Routine 12/01/2018 2:53 PM Vitamin D Results f or this CDT deficiency procedure are in Tuberculosis of the results spine section. [place]oliosis Vitamin D deficiency Tuberculosis of spine Scoliosis ALKALINE PHOSPHATASE, Routine 12/01/2018 2:53 PM Vitamin D Results for this TOTAL CDT deficiency procedure are in Tuberculosis of the results spine section. [place]oli[place] Vitamin D deficiency Tuberculosis of spine Scoliosis documented in this encounter Results Osmolality, Urine (12/01/2018 3:06 PM CDT) athologist Signature Osmolality 782 mOsm/kg 12/01/2018 [facility] Urine 10:51 PM CDT HOSPITAL Specimen Anatomical Collection Method Collection Time Receive d Time (Source) Location / / Volume Laterality Urine Non-blood 12/01/2018 3:06 PM 9 3:06 Collection / CDT PM CDT Unknown Aime Zaidi MD LAB_1 Performing Organization Address [facility]/ZIP [facility] e Number [address] [address] [place] [address], [facility] Sodium, Urine Random (12/01/2018 3:06 PM CDT) athologist Signature Sodium, Urine 111 mmol/L 12/01/2018 [facility] Random 10:54 PM CDT HOSPITAL Specimen Anatomical Collection Method Collection Time Receive d Time (Source) Location / / Volume Laterality Urine Non-blood 12/01/2018 3:06 PM 9 3:06 Collection / CDT PM CDT Unknown Aime Zaidi MD LAB_1 Performing Organization Address City/[facility]/ZIP [facility] e Number [address] [address] [place] [address], [facility] Calcium/Creatinine Ratio, Urine (12/01/2018 3:06 PM CDT) athologist Signature Calcium, Urine, 18.9 mg/dL 12/01/2018 [facility] Random 11:01 PM CDT HOSPITAL Creatinine, 163 >20 mg/dL 12/01/2018 [facility] Urine, Random 11:01 PM CDT HOSPITAL Ca/Creat Ratio, 0.12 <0.20 12/01/2018 [facility] Urine Random 11:01 PM CDT HOSPITAL Specimen Anatomical Collection Method Collection Time Receive d Time (Source) Location / / Volume Laterality Urine Non-blood 12/01/2018 3:06 PM 9 3:06 Collection / CDT PM CDT Unknown Aime Zaidi MD LAB_1 Performing Organization Address City/State/ZIP Code Phon e Number [facility] [address] [place] [address] [facility] [address] [place] [address], [facility] Thyroid Peroxidase (TPO) Ab (12/01/2018 2:53 PM CDT) Analysis Performed At Patho logist Time Signature Thyroid 0.7 0.0 - 9.0 12/03/2018 [facility] Peroxidase IU/mL 2:58 AM CDT LABORATORIES (TPO) Antibody Comment: Performed by [facility], [address] [place] [address] [employer] [employer] [facility] [employer], Tenzin Call do, MD, Lab. Director Specimen Anatomical Collection Method / Collection Time Recei donal Time (Source) Location / Volume Laterality Blood Lab OP Venipuncture 12/01/2018 2:53 12/01 3:17 / Unknown PM CDT PM CDT Aime Zaidi MD LAB_1 Performing Organization Address City/[facility]/ZIP Code Phon e Number [address] [phone] Insulin-Like Growth Factor (12/01/2018 2:53 PM CDT) [facility] Time Signature Insulin-Like 323 120 - 479 12/03/2018 [facility] Growth Factor ng/mL 9:39 AM CDT LABORATORIES IGF 1 Z Score 0.6 12/03/2018 [facility] Calculation 9:39 AM CDT LABORATORIES Comment: INTERPRETIVE INFORMATION: IGF 1 Z-SCORE CALCULATION A Z score is the number of standard david ations a given result is above (positive score) or below (negativ e score) the age- and sex-adjusted population mean. ??Results that are within the IGF-1 reference interval will have a Z score b etween -2.0 and +2.0. Performed by [facility], [address] [place] [address] www.[facility] [facility], Tenzin Holguin MD, Lab. Director Specimen Anatomical Collection Method / Collection Time Recei donal Time (Source) Location / Volume Laterality Blood Lab OP Venipuncture 12/01/2018 2:53 12/01 3:17 / Unknown PM CDT PM CDT Aime Zaidi MD LAB_1 Performing Organization Address City/State/ZIP Code Phon e Number [place] [phone] T3, Free, Serum (12/01/2018 2:53 PM CDT) P athologist Signature T3, Free 3.3 1.7 - 3.7 12/01/2018 [facility] pg/mL 4:07 PM CDT HOSPITAL Specimen Anatomical Collection Method / Collection Time Recei donal Time (Source) Location / Volume Laterality Blood Lab OP Venipuncture 12/01/2018 2:53 12/01 3:17 / Unknown PM CDT PM CDT Aime Zaidi MD LAB_1 Performing Organization Address City/[facility] Phon e Number [address] [address] [place] [address], [facility] Free T4 (12/01/2018 2:53 PM CDT) athologist Signature T4, Free 0.8 0.7 - 1.5 12/01/2018 [facility] ng/dL 4:07 PM CDT HOSPITAL Specimen Anatomical Collection Method / Collection Time Recei donal Time (Source) Location / Volume Laterality Blood Lab OP Venipuncture 12/01/2018 2:53 12/01 3:17 / Unknown PM CDT PM CDT Aime Zaidi MD LAB_1 Performing Organization Address [facility]/ZIP Code Phon e Number [address] [address] [place] [address], [facility] TSH (12/01/2018 2:53 PM CDT) athologist Signature TSH, Sensitive 1.51 0.30 - 12/01/2018 [facility] 4.50 4:07 PM CDT HOSPITAL uIU/mL Specimen Anatomical Collection Method / Collection Time Recei donal Time (Source) Location / Volume Laterality Blood Lab OP Venipuncture 12/01/2018 2:53 12/01 3:17 / Unknown PM CDT PM CDT Aime Zaidi MD LAB_1 Performing Organization Address City/[facility]/ZIP [facility] Phon e Number [address] [address] [phone] Human Growth Hormone (12/01/2018 2:53 PM CDT) athologist Signature Human Growth 3.64 0.05 - 12/03/2018 [facility] Hormone 17.30 11:20 AM CDT LABORATORIES ng/mL Comment: Performed by [facility], [address] [place] [id number] www.[facility] [facility], Tenzin Holguin MD, Lab. Director Specimen Anatomical Collection Method / Collection Time Recei donal Time (Source) Location / Volume Laterality Blood Lab OP Venipuncture 12/01/2018 2:53 12/01 3:17 / Unknown PM CDT PM CDT Aime Zaidi MD LAB_1 Performing Organization Address City/[facility]/ZIP Code Phon e Number [facility] [address] [phone] Estradiol (12/01/2018 2:53 PM CDT) athologist Signature Estradiol 13 pg/mL 12/02/2018 [facility] 12:09 PM CDT C[facility] LAB Specimen Anatomical Collection Method / Collection Time Recei donal Time (Source) Location / Volume Laterality Blood Lab OP Venipuncture 12/01/2018 2:53 12/01 3:17 / Unknown PM CDT PM CDT Narrative [facility] - 12/02/2018 12:09 PM CDT Expected values for menstruating females Follicular phase: 21-251 pg/mL Mid cycle phase: 38-649 pg/mL Luteal phase: 21-312 pg/mL Expected values for post menopausal fema les On HRT: <10-144 pg/mL Not on HRT: <10-28 pg/mL Aime Zaidi MD LAB_1 Performing Organization Address [facility] Phon e Number [facility] [address] [address] Prolactin (12/01/2018 2:53 PM CDT) P athologist Signature Prolactin 6.4 5.2 - 26.5 12/02/2018 [facility] ng/mL 12:09 PM CDT CENTRAL LAB Specimen Anatomical Collection Method / Collection Time Recei donal Time (Source) Location / Volume Laterality Blood Lab OP Venipuncture 12/01/2018 2:53 12/01 3:17 / Unknown PM CDT PM CDT Aime Zaidi MD LAB_1 Performing Organization Address [facility] Phon e Number [facility] [address] [address] FSH (12/01/2018 2:53 PM CDT) P athologist Signature FSH 5.1 mIU/mL 12/02/2018 [facility] 12:09 PM CDT CENTRAL LAB Specimen Anatomical Collection Method / Collection Time Recei donal Time (Source) Location / Volume Laterality Blood Lab OP Venipuncture 12/01/2018 2:53 12/01 3:17 / Unknown PM CDT PM CDT Narrative [facility] - 12/02/2018 12:09 PM CDT Expected values for mensturating females Follicular Phase: 3.0-8.1 mIU/mL Mid-Cycle Peak: 2.6-16.7 mIU/mL Luteal Phase: 1.4-5.5 mIU/mL Post Menopausal Females without HRT: 26. 8-133.4 mIU/mL Aime Zaidi MD LAB_1 Performing Organization Address [facility] Phon e Number [facility] [address] [address] DHEA Sulfate (12/01/2018 2:53 PM CDT) Analysis Performed At Patho logist Time Signature DHEA Sulfate 96 mcg/dl 12/02/2018 [facility] 12:07 PM CDT CENTRAL LAB Specimen Anatomical Collection Method / Collection Time Recei donal Time (Source) Location / Volume Laterality Blood Lab OP Venipuncture 12/01/2018 2:53 12/01 3:17 / Unknown PM CDT PM CDT Aime Zaidi MD LAB_1 Performing Organization Address [facility] e [facility] LAB [address] [address] LH (12/01/2018 2:53 PM CDT) athologist Signature LH 3 mIU/mL 12/02/2018 [facility] 12:26 PM CDT CENTRAL LAB Specimen Anatomical Collection Method / Collection Time Recei donal Time (Source) Location / Volume Laterality Blood Lab OP Venipuncture 12/01/2018 2:53 12/01 3:17 / Unknown PM CDT PM CDT Narrative [facility] LAB - 12/02/2018 12:26 PM CDT Expected values for menstruating females Follicular Phase: 2-12 mIU/mL Mid-Cycle Peak: 8-89 mIU/mL Luteal Phase: 1-14 mIU/mL Expected values for postmenopausal femal es On HRT: 5-62 mIU/mL Aime Zaidi MD LAB_1 Performing Organization Address [facility] LAB [address] [address] Complete Blood Count-No Diff (12/01/2018 2:53 PM CDT) athologist Signature WBC 7.4 3.5 - 10.5 12/01/2018 [facility] x10(9)/L 3:29 PM CDT HOSPITAL RBC 4.08 3.90 - 12/01/2018 [facility] 5.03 3:29 PM CDT HOSPITAL x10(12)/L Hemoglobin 12.4 12.0 - 12/01/2018 [facility] 15.5 g/dL 3:29 PM CDT HOSPITAL HCT 38.1 34.9 - 12/01/2018 [facility] 44.5 % 3:29 PM CDT HOSPITAL MCV 93.4 80.0 - 12/01/2018 [facility] 100.0 fL 3:29 PM CDT HOSPITAL MCH 30.4 27.6 - 12/01/2018 [facility] 33.3 pg 3:29 PM CDT HOSPITAL MCHC 32.5 31.5 - 12/01/2018 [facility] 35.2 g/dL 3:29 PM CDT HOSPITAL RDW 11.9 11.9 - 12/01/2018 [facility] 15.5 % 3:29 PM CDT HOSPITAL Platelets 262 150 - 450 12/01/2018 [facility] x10(9)/L 3:29 PM CDT HOSPITAL Automated NRBC 0 <=0 /100 12/01/2018 [facility] WBC 3:29 PM CDT HOSPITAL Specimen Anatomical Collection Method / Collection Time Recei donal Time (Source) Location / Volume Laterality Blood Lab OP Venipuncture 12/01/2018 2:53 12/01 3:17 / Unknown PM CDT PM CDT Aime Zaidi MD LAB_1 Performing Organization Address City/[facility] [place] [address] [phone] C-Reactive Protein (12/01/2018 2:53 PM CDT) athologist Signature C-Reactive <0.1 0.0 - 0.7 12/01/2018 [facility] Protein mg/dL 3:49 PM CDT HOSPITAL Specimen Anatomical Collection Method / Collection Time Recei donal Time (Source) Location / Volume Laterality Blood Lab OP Venipuncture 12/01/2018 2:53 12/01 3:17 / Unknown PM CDT PM CDT Aime Zaidi MD LAB_1 Performing Organization Address [facility] [place] [address] [phone] Basic Metabolic Panel (12/01/2018 2:53 PM CDT) athologist Signature Sodium 139 136 - 145 12/01/2018 [facility] mmol/L 3:49 PM CDT HOSPITAL Potassium 3.7 3.5 - 5.1 12/01/2018 [facility] mmol/L 3:49 PM CDT HOSPITAL Chloride 104 98 - 109 12/01/2018 [facility] mmol/L 3:49 PM CDT HOSPITAL CO2 28 20 - 29 12/01/2018 [facility] mmol/L 3:49 PM CDT HOSPITAL Anion Gap 7 7 - 16 12/01/2018 [facility] mmol/L 3:49 PM CDT HOSPITAL Calcium 9.4 8.4 - 10.4 12/01/2018 [facility] mg/dL 3:49 PM CDT HOSPITAL BUN 9 7 - 26 12/01/2018 [facility] mg/dL 3:49 PM CDT HOSPITAL Creatinine 0.65 0.49 - 12/01/2018 [facility] 0.84 mg/dL 3:49 PM CDT HOSPITAL GFR, Estimated >60 12/01/2018 [facility] mL/min/1.7 3:49 PM T [facility] 3m2 Comment: The GFR formula is valid only f or patients 18 years of age and older GFR, Est If >60 mL/min/1.73m2 12/01/2018 3 :[address] [facility] [place] Comment: The GFR formula is valid only f or patients 18 years of age and older Glucose 77 70 - 100 mg/dL 12/01/2018 3:49 PM CDT [facility] Specimen Anatomical Collection Method / Collection Time Recei donal Time (Source) Location / Volume Laterality Blood Lab OP Venipuncture 12/01/2018 2:53 12/01 3:17 / Unknown PM CDT PM CDT Aime Zaidi MD LAB_1 Performing Organization Address City/State/ZIP Code Phon e Number [address] [address] [phone] LDL Cholesterol, Direct Measured (12/01/2018 2:53 PM CDT) athologist Signature LDL, Direct 33 <=130 mg/dL 12/01/2018 [facility] 3:49 PM T HOSPITAL Specimen Anatomical Collection Method / Collection Time Recei donal Time (Source) Location / Volume Laterality Blood Lab OP Venipuncture 12/01/2018 2:53 12/01 3:17 / Unknown PM CDT PM CDT Aime Zaidi MD LAB_1 Performing Organization Address City/State/ZIP Code Phon e Number [facility] [address] [place] [address] [address] Hgb A1C (12/01/2018 2:53 PM CDT) Patholo gist Method Time Signature Hemoglobin A1C 5.2 <=5.6 % 12/02/2018 [facility] 12:25 PM CDT CENTRAL LAB Specimen Anatomical Collection Method / Collection Time Recei donal Time (Source) Location / Volume Laterality Blood Lab OP Venipuncture 12/01/2018 2:53 12/01 3:17 / Unknown PM CDT PM CDT Aime Zaidi MD LAB_1 Performing Organization Address City/[facility]/ZIP Code Phon e Number [facility] [address] [address] C Telopeptide Beta Cross Linked (12/01/2018 2:53 PM CDT) P athologist Signature C-Telopeptide, 343 170 - 173 12/03/2018 [facility] Kqmi-Lelmx-Xeo pg/mL 4:13 PM CDT LABORATORIES ked, Serum Comment: Postmenopausal Females: 104-1008 pg/mL REFERENCE INTERVAL: C-Telopeptide, Beta- Cross-Linked, Serum Access complete set of age- and/or gende r-specific reference intervals for this test in the [employer] ratory Test Directory ([employer] [facility]). Performed by [facility], [address] [place] [address] www.[facility] [facility], Tenzin Holguin MD, Lab. Director Specimen Anatomical Collection Method / Collection Time Recei donal Time (Source) Location / Volume Laterality Blood Lab OP Venipuncture 12/01/2018 2:53 12/01 3:17 / Unknown PM CDT PM CDT Aime Zaidi MD LAB_1 Performing Organization Address City/[facility]/ZIP Code Phon e Number [facility] [address] [phone] Osmolality (12/01/2018 2:53 PM CDT) athologist Signature Osmolality 282 275 - 295 12/01/2018 [facility] Serum mOsm/kg 4:07 PM CDT HOSPITAL Specimen Anatomical Collection Method / Collection Time Recei donal Time (Source) Location / Volume Laterality Blood Lab OP Venipuncture 12/01/2018 2:53 12/01 3:17 / Unknown PM CDT PM CDT Aime aZidi MD LAB_1 Performing Organization Address [facility] [place] [address] [address], [facility] [phone] (ABNORMAL) Calcium, Ionized WB (12/01/2018 2:53 PM CDT) athologist Signature Calcium 1.17 (L) 1.22 - 12/01/2018 [facility] Ionized Whole 1.37 3:20 PM CDT HOSPITAL Blood mmol/L PH, Venous 7.33 7.31 - 12/01/2018 [facility] 7.41 3:20 PM CDT HOSPITAL Specimen Anatomical Collection Method / Collection Time Recei donal Time (Source) Location / Volume Laterality Blood Lab OP Venipuncture 12/01/2018 2:53 12/01 3:17 / Unknown PM CDT PM CDT [facility] - 12/01/2018 3:20 PM CD T The reference range for Ionized Calcium is based on a pH of 7.4. Ionized Calcium concentration increases approximately 0. 05 mmol/L for each 0.1 pH unit decrease. Aime Zaidi MD LAB_1 Performing Organization Address [facility] Phon e Number [address] [address] [place] [address] Magnesium (12/01/2018 2:53 PM CDT) athologist Signature Magnesium 2.1 1.6 - 2.6 12/01/2018 [facility] mg/dL 3:49 PM CDT HOSPITAL Specimen Anatomical Collection Method / Collection Time Recei donal Time (Source) Location / Volume Laterality Blood Lab OP Venipuncture 12/01/2018 2:53 12/01 3:17 / Unknown PM CDT PM CDT Aime Zaidi MD LAB_1 Performing Organization Address [facility] Phon e Number [address] [address], [facility] Phosphorus (12/01/2018 2:53 PM CDT) P athologist Signature Phosphorus 4.1 2.9 - 5.0 12/01/2018 [facility] mg/dL 3:49 PM CDT HOSPITAL Specimen Anatomical Collection Method / Collection Time Recei donal Time (Source) Location / Volume Laterality Blood Lab OP Venipuncture 12/01/2018 2:53 12/01 3:17 / Unknown PM CDT PM CDT Aime Zaidi MD LAB_1 Performing Organization Address [facility] Phon e Number [address] [address], [facility] Vitamin D 25-Hydroxy, Total (12/01/2018 2:53 PM CDT) [facility] Method Time Signature Vitamin D, 44 30 - 80 12/02/2018 [facility] 25-OH, Total ng/mL 12:26 PM CDT CENTRAL LAB Specimen Anatomical Collection Method / Collection Time Recei donal Time (Source) Location / Volume Laterality Blood Lab OP Venipuncture 12/01/2018 2:53 12/01 3:17 / Unknown PM CDT PM CDT Counts include 234 beds at the [facility] CENTRAL LAB - 12/02/2018 12:26 PM CDT Expected values for patients under 18 years of age Deficiency: <20 ng/mL Optimum: >19 ng/mL Aime Zaidi MD LAB_1 Performing Organization Address City/[facility]/ZIP Code Phon e Number [facility] CENTRAL LAB [address] [address] Cortisol (12/01/2018 2:53 PM CDT) P athologist Signature Cortisol 6.7 2.9 - 19.4 12/01/2018 [facility] mcg/dL 4:07 PM CDT HOSPITAL Specimen Anatomical Collection Method / Collection Time Recei donal Time (Source) Location / Volume Laterality Blood Lab OP Venipuncture 12/01/2018 2:53 12/01 3:17 / Unknown PM CDT PM CDT [facility] - 12/01/2018 4:07 PM CD T Expected values AM (before 10am): 3.7-19.4 mcg/dL PM (after 5pm): 2.9-17.3 mcg/dL Aime Zaidi MD LAB_1 Performing Organization Address [facility] Phon e Number [address] [address] [place] [address], [facility] Alkaline Phosphatase, Total (12/01/2018 2:53 PM CDT) athologist Signature Alkaline 77 48 - 95 12/01/2018 [facility] Phosphatase U/L 3:49 PM CDT HOSPITAL Specimen Anatomical Collection Method / Collection Time Recei donal Time (Source) Location / Volume Laterality Blood Lab OP Venipuncture 12/01/2018 2:53 12/01 3:17 / Unknown PM CDT PM CDT Aime Zaidi MD LAB_1 Performing Organization Address [facility] Phon e Number [address] [address] [place] [address], [facility] Renin Activity (12/01/2018 2:53 PM CDT) athologist Signature Renin Activity 1.9 ng/mL/hr 12/03/2018 [facility] 7:29 PM CDT LABORATORIES Comment: INTERPRETIVE INFORMATION: Renin Activity Adult, Normal sodium diet: ??Supine ................. 0.2-1.6 ng/m L/hr ??Upright ................ 0.5-4.0 ng/m L/hr Children, Normal sodium diet, Supine: ??Yaphank (1-7 days) ..... 2.0-35.0 ng/ mL/hr ??Cord [...] angiotensinogen is decreased. See Compliance Statement D: [email or web address] Performed by [employer], [address] [place] [address] [email or web address] [facility] [employer], Tenzin Holguin MD, Lab. 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
--- OUTSIDE RECORDS SUMMARY | 2022-06-18 12:04 | XMS_ITS | Encounter Summary ---
:2000 Author Organization [facility] Address [address] [place] [address] Care Team Providers Name Role Phone Unassigned, Provider Primary Care Provider Unavailable Reason for Referral Procedure/Equipment (Routine) - Incomplete Specialty Diagnoses / Procedures Referred By Contact Refer red To Contact Diagnoses Arthralgia of both ankles Derian Chandra MD Procedures MR Ankle Lt WO IV Cont [address] [facility] [place] [address] Referral ID Status Reason Start Date Expiration Date Visits V isits Requested Authorized [id number] Incomplete 11/29/2018 02/28/2020 1 1 Procedure/Equipment (Routine) - Incomplete Specialty Diagnoses / Procedures Referred By Contact Refer red To Contact Diagnoses Arthralgia of both ankles Derian Chandra MD Procedures MR Ankle Rt WO IV Cont [address] [facility] [place] [address] Referral ID Status Reason Start Date Expiration Date Visits V isits Requested Authorized [id number] Incomplete 11/29/2018 02/28/2020 1 1 Reason for Visit Reason Comments INJURY, ANKLE bilat Encounter Details Date Type Department Care Team Description 11/29/2018 Office Visit [facility] Derian Chandra, Arthral marco a of both ankles (Primary Dx); [facility] [address] [facility] [place] [address] [place], [place] [phone] (Wo rk) Social History Tobacco Use Types Packs/Day Years Used Date Smoking Tobacco: Never Smokeless Tobacco: Never Sex Assigned at Date Recorded Not on file documented as of this encounter Last Filed Vital Signs Vital Sign Reading Time Taken Comments Blood Pressure - - Pulse - - Temperature 37.1 ??C (98.7 ??F) 11/29/2018 3:06 PM CDT Respiratory Rate - - Oxygen Saturation - - Inhaled Oxygen Concentration - - Weight - - Height - - Body Mass Index - - documented in this encounter Patient Instructions Patient InstructionsEric Adams RN - 11/29/2018 3:[address] Derian Chandra MD Sports & Orthopaedic Medicine [facility] Medication Requests: Prescriptions are not filled on Weekends or on Weekdays after 3:00PM For all medication refills: Request a refill using [employer] or contact your Pharmacy [facility] Nurse Line: Please contact [facility] Nurse line for all medical requests and questions at [phone] MRI Scheduling: To schedule an MRI at [facility] please call [phone] Paperwork Requests: Questions regarding FMLA or disability paperwork please call [phone] Workers??? Compensation: Please contact our department for any Work Comp concerns at Email: [email or web address] Appointment Scheduling: Can be done at the front loader residential driver or by calling our main number [phone] Diagnosis: Bilateral ankle pain, left calcaneonavicular coalition Schedule appointment with disease intervention specialist within 3 weeks for Left tarsal coalition documented in this encounter Progress Notes Derian Chandra MD - 11/29/2018 12:00 PM CDT NAME: DAKOTA VASQUEZ MR#: [id number] CSN: [id number] AUTHENTICATING CLINICIAN: Derian Chandra MD CONFIRM #: [id number] LOC: 711 CLINIC PROGRESS NOTE DATE OF VISIT: 11/29/2018 : 2000 SUBJECTIVE: Dakota Vasquez here for followup of her bilateral ankles. Was last seen by Dr. Acevedo on 03/21/2018, for 2 month history of ankle pain. She is treated for possible peroneal tendinitis with physical therapy and she does not feel like she ever had improving her pain. Historically, her pain has been more over the left greater than right, but over the last 2 months, the right has been worse in the left. She has had increased pain and her pain in general is in the anterior ankle and into the foot. She never felt like the physical therapy helped her. She has had swelling at times. Pain is 6 to 8/10. She has had to miss some lacrosse practice. SOCIAL HISTORY: Eleventh grade, [employer], active in lacrosse. ALLERGIES: Per Epic. MEDICATIONS: Per Epic. REVIEW OF SYSTEMS: No fever, rash, numbness and tingling. No diabetes, stomach or joint problems. OBJECTIVE: VITAL SIGNS: Height 64 inches, weight 109 pounds. Temperature 98.7. GENERAL: Well-appearing female in no acute distress. EXTREMITIES: Bilateral ankles, no significant effusion. No swelling. No erythema. Has tenderness over the diffuse ankle including talar dome, medial and lateral malleoli, navicular,cuboid and posterior malleolus. Plantar and dorsiflexion, inversion and eversion strength 5/5 and isnear full. IMAGING STUDIES: MRI right ankle 11/29/2018: 1.Small volume fluid in the peroneal tendon sheaths, which may represent mild tenosynovitis. The peroneal tendons are unremarkable without evidence of significant tendinopathy or tear. 2.Otherwise unremarkable MRI of the ankle. 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 2.Small volume fluid in the peroneal tendon sheath, which may represent mild tenosynovitis. The peroneal tendons are unremarkable without evidence of significant tendinopathy or tear. 3.Otherwise unremarkable MRI of the ankle. ASSESSMENT: Bilateral ankle pain with MRI findings showing left tarsal coalition as well as mild signs for peroneal tenosynovitis. The patient's pain is rather diffuse, so it is difficult to expect that the peroneal tendinitis is the complete source of her pain. The calcaneal navicular coalition would be more worrisome; however, this is not seen on the right and only on the left ankle. PLAN: We discussed options for further care and given her lack of improvement with physical therapy and time and relative rest, would recommend referral to our foot and ankle surgeon for consideration of a calcaneal navicular coalition. She will return to sports activities as tolerated in the meantime. SAB:MEDQ C: R:11/29/18 18:23 CONFIRM#:[id number] documented in this encounter Plan of Treatment Not on filedocumented as of this encounter Results MR Ankle Lt WO [...] ank le. Derian Chandra MD RAD MRI MR Ankle Rt WO IV Cont (11/29/2018 4:25 PM CDT) Anatomical Region Laterality Modality Lower Extremity, Ankle, Foot, Leg, Skeletal, Foot & Right Magnetic Resonance Ankle Specimen (Source) Anatomical Collection Method Collection Time Re ceived Time Location / / Volume Laterality 11/29/2018 4:00 PM CDT Impressions 11/29/2018 4:40 PM CDT IMPRESSION: ?? 1. ??Small-volume fluid in the peroneal tendon sheaths, which may represent mild tenosynovitis. The peroneal tendons are unremarkable without evidence of significant tendinopathy or tear. 2. ??Otherwise unremarkable MRI of the a nkle. Narrative 11/29/2018 4:40 PM CDT TECHNIQUE: ?? Routine MRI of the right ankle was performed without contrast. COMPARISON: ??Radiographs dated 03/21/20 18 FINDINGS: TENDONS: ??Small volume fluid in the per cohen tendon sheath in the inframalleolar segment tendon (axial slice 22) which may represent mild tenosynovitis. The tendons are unremarkable without evidence of tendinopathy or tear. The tibialis post erior, flexor digitorum and flexor hallucis longus tendons [...] the retrocalcaneal bursa. MARROW AND SOFT TISSUES: ??Marrow signal is normal. No soft tissue mass is identified. Specifically, no soft tissue masses or other abnormality in the tarsal tunnel. Procedure Note Jacob Zamora MD - 11/29/2018Fo rmatting of this note might be different from the original. TECHNIQUE: Routine MRI of the right ankl e was performed without contrast. COMPARISON: Radiographs dated 03/21/2018 FINDINGS: TENDONS: Small volume fluid in the peron eal tendon sheath in the inframalleolar segment tendon (axial slice 22) which may represent mild tenosynovitis. The tendons are unremarkable without evidence of tendinopathy or tear. The tibialis poste rior, flexor digitorum and flexor hallucis longus tendons [...] the retrocalcaneal bursa. MARROW AND SOFT TISSUES: Marrow signal i s normal. No soft tissue mass is identified. Specifically, no soft tissue masses or other abnormality in the tarsal tunnel. IMPRESSION IMPRESSION: 1. Small-volume fluid in the peroneal te ndon sheaths, which may represent mild tenosynovitis. The peroneal tendons are unremarkable without evidence of significant tendinopathy or tear. 2. Otherwise unremarkable MRI of the ank le. 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
--- OUTSIDE RECORDS SUMMARY | 2022-06-18 12:04 | XMS_ITS | Encounter Summary ---
:2000 Author Organization [facility] Address [address], [place] [address] Care Team Providers Name Role Phone Unassigned, Provider Primary Care Provider Unavailable Reason for Visit Procedure/Equipment (Routine) - Incomplete Specialty Diagnoses / Procedures Referred By Contact Refer red To Contact Diagnoses Arthralgia of both ankles Derian Chandra MD Procedures MR Ankle Rt WO IV Cont [address] [facility] [address] [place] [address] Referral ID Status Reason Start Date Expiration Date Visits V isits Requested Authorized [id number] Incomplete 11/29/2018 02/28/2020 1 1 Encounter Details Date Type Department Care Team Description 11/29/2018 Ancillary [facility] MRI Derian Chandra, Arthralgia of both Procedure [address] [address] [place] [address] [phone] Social History Tobacco Use Types Packs/Day Years Used Date Smoking Tobacco: Never Smokeless Tobacco: Never Sex Assigned at Date Recorded Not on file documented as of this encounter Plan of Treatment Not on filedocumented as of this encounter Procedures Procedure Name Priority Date/Time Associated Diagnosis Comme nts MR ANKLE RT WO IV STAT 11/29/2018 4:25 PM Arthralgia of bot h Results for this CONT CDT ankles procedure are i n the results section. documented in this encounter Results MR Ankle Rt WO IV Cont (11/29/2018 [...] performed without contrast. COMPARISON: ??Radiographs dated 03/21/20 FINDINGS: TENDONS: ??Small volume fluid in the [...] ankles documented in this encounter Care Teams Children'S Lunchroom Supervisor Relationship Specialty Start Date End Date Unassigned, Provider PCP - General 01 05/10/[address] [place] [phone] documented as of this encounter
--- OUTSIDE RECORDS SUMMARY | 2022-06-18 12:04 | XMS_ITS | Encounter Summary ---
:2000 Author Organization [facility] Address [address], [place] [address] Care Team Providers Name Role Phone Unassigned, Provider Primary Care Provider Unavailable Reason for Visit Reason Onset Date Comments QUESTIONS, GENERAL 04/30/2016 Encounter Details Date Type Department Care Team Description 04/30/2016 Telephone [facility] Meagan Haile MD QUESTIONS, GENERAL [address] [facility]. [address] [place] [address] [place] [address] [phone] (Wo rk) Social History Tobacco Use Types Packs/Day Years Used Date Smoking Tobacco: Never Assessed Sex Assigned at Date Recorded Not on file documented as of this encounter Nursing Notes Keily Vicente - 04/30/2016 11:31 AM CDT Results were received via fax for a hematology/oncology consultation. At Dr. Meagan Haile's request,a call was placed to momTiffany, to find out if they are receiving well visit care somewhere else krish has not been seen by Marlys Kaiser since 2011. Left the phone number [phone] for mom to call and update us/schedule appointments as needed. Records sent to [facility]. documented in this encounter Plan of Treatment Not on filedocumented as of this encounter Visit Diagnoses Not on filedocumented in this encounter Care Teams Metallurgy Laboratory Technician Relationship Specialty Start Date End Date Unassigned, Provider PCP - General 01 05/10/[address] [place] [phone] documented as of this encounter
--- OUTSIDE RECORDS SUMMARY | 2022-06-18 12:04 | XMS_ITS | Encounter Summary ---
:2000 Author Organization [facility] Address [address] [address] Care Team Providers Name Role Phone Unassigned, Provider Primary Care Provider Unavailable Encounter Details Date Type Department Care Team Description 12/09/2012 Notes/[facility]ders [facility] [address] [address] [address] [place] [address] [place], [place] [phone] (Wo rk) Social History Tobacco Use Types Packs/Day Years Used Date Smoking Tobacco: Never Assessed Sex Assigned at Date Recorded Not on file documented as of this encounter Progress Notes Meagan Haile MD - 12/09/2012 1:48 PM CDT They are switching practices due to insurance/prior auth problems. Being seen by allergy for her asthma. documented in this encounter Plan of Treatment Not on filedocumented as of this encounter Visit Diagnoses Not on filedocumented in this encounter Care Teams Cork Insulation Setter Relationship Specialty Start Date End Date Unassigned, Provider PCP - General 01 05/10/[address] [place] [phone] documented as of this encounter
--- OUTSIDE RECORDS SUMMARY | 2022-06-18 12:04 | XMS_ITS | Encounter Summary ---
:2000 Author Organization [facility] Address [address], [place] [address] Care Team Providers Name Role Phone Unassigned, Provider Primary Care Provider Unavailable Encounter Details Date Type Department Care Team Description 03/03/2019 - Hospital Encounter [facility] Chintan Cobos MD 03/08/2019 Orthopedica/Surgical [address] [place] [address] [address] [facility] [place] [id number] Social History Tobacco Use Types Packs/Day Years Used Date Smoking Tobacco: Never Smokeless Tobacco: Never Sex Assigned at Date Recorded Not on file documented as of this encounter Medications at Time of Discharge Medication Sig Dispensed Refills Start Date End Date gabapentin (NEURONTIN) 300 Take 300 mg by mouth 3 11/24/2018 MG capsule three times a day. JUNE08/24 1-20 MG-MCG [...] tablet MOUTH DAILY X30 DAYS: SCHEDULE APPT [phone] documented as of this encounter Plan of Treatment Not on filedocumented as of this encounter Procedures Procedure Name Priority Date/Time Associated Diagnosis Comme nts BLOOD GAS, POCT Routine 03/03/2019 4:17 PM Result s for this CDT procedure are i n the results section. BLOOD GAS, POCT Routine 03/03/2019 1:28 PM Result s for this CDT procedure are i n the results section. TYPE AND SCREEN STAT 03/03/2019 9:53 AM Result s for this CDT procedure are i n the results section. PREP RBC LR STAT 03/03/2019 9:53 AM Results f or this CDT procedure are i n the results section. ANTIBODY SCREEN STAT 03/03/2019 9:53 AM Result s for this CDT procedure are i n the results section. BLOOD TYPE STAT 03/03/2019 9:53 AM Results f or this CDT procedure are i n the results section. documented in this encounter Results (ABNORMAL) Blood Gas, POCT (03/03/2019 4:17 PM CDT) Analysis Performed At Likeedst Time Signature Specimen Site Arterial 03/03/2019 [facility] 5:01 PM CDT HOSPITAL pH, Whole Blood 7.31 (L) 7.35 - 03/03/2019 [facility] 7.45 5:01 PM CDT HOSPITAL pCO2, Whole 43 35 - 45 03/03/2019 [facility] Blood mmHg 5:01 PM CDT HOSPITAL pO2, Whole 80 80 - 100 03/03/2019 [facility] Blood mmHg 5:01 PM CDT HOSPITAL Sodium, WB 139 136 - 145 03/03/2019 [facility] mmol/L 5:01 PM CDT HOSPITAL Potassium, 4.7 3.5 - 5.1 03/03/2019 [facility] Whole Blood mmol/L 5:01 PM CDT HOSPITAL Calcium Ionized 1.09 (L) 1.22 - 03/03/2019 [facility] Whole Blood 1.37 5:01 PM CDT HOSPITAL mmol/L HCT, ISTAT 32.0 (L) 34.9 - 03/03/2019 [facility] 44.5 % 5:01 PM CDT HOSPITAL Hgb, Calculated 10.9 (L) 12.0 - 03/03/2019 [facility] 18.0 g/dL 5:01 PM CDT HOSPITAL HCO3, 21.5 (L) 22.0 - 03/03/2019 [facility] Calculated 26.0 5:01 PM CDT HOSPITAL mmol/L Base Excess, -5.0 (L) -2.0 - 2.0 03/03/2019 [facility] Calculated mmol/L 5:01 PM CDT HOSPITAL O2 Saturation 94.0 (L) 95.0 - 03/03/2019 [facility] Calc, Arterial 100.0 % 5:01 PM CDT HOSPITAL Glucose, Whole 208 (H) 70 - 180 03/03/2019 [facility] Blood mg/dL 5:01 PM CDT HOSPITAL Specimen Anatomical Collection Method Collection Time Receive d Time (Source) Location / / Volume Laterality Blood 03/03/2019 4:17 PM 9 5:01 CDT PM CDT Chintan Cobos MD LAB_1 Performing Organization Address City/State/ZIP Code Phon e Number [address] [address] (ABNORMAL) Blood Gas, POCT (03/03/2019 1:28 PM CDT) Analysis Performed At Patho logist Time Signature Specimen Site Arterial 03/03/2019 [facility] 5:01 PM CDT HOSPITAL pH, Whole Blood 7.37 7.35 - 03/03/2019 [facility] 7.45 5:01 PM CDT HOSPITAL pCO2, Whole 42 35 - 45 03/03/2019 [facility] Blood mmHg 5:01 PM CDT HOSPITAL pO2, Whole 282 (H) 80 - 100 03/03/2019 [facility] Blood mmHg 5:01 PM CDT HOSPITAL Sodium, WB 138 136 - 145 03/03/2019 [facility] mmol/L 5:01 PM CDT HOSPITAL Potassium, 4.0 3.5 - 5.1 03/03/2019 [facility] Whole Blood mmol/L 5:01 PM CDT HOSPITAL Calcium Ionized 1.08 (L) 1.22 - 03/03/2019 [facility] Whole Blood 1.37 5:01 PM CDT HOSPITAL mmol/L HCT, ISTAT 30.0 (L) 34.9 - 03/03/2019 [facility] 44.5 % 5:01 PM CDT HOSPITAL Hgb, Calculated 10.2 (L) 12.0 - 03/03/2019 [facility] 18.0 g/dL 5:01 PM CDT HOSPITAL HCO3, 24.4 22.0 - 03/03/2019 [facility] Calculated 26.0 5:01 PM CDT HOSPITAL mmol/L Base Excess, -1.0 -2.0 - 2.0 03/03/2019 [facility] Calculated mmol/L 5:01 PM CDT HOSPITAL O2 Saturation 100.0 95.0 - 03/03/2019 [facility] Calc, Arterial 100.0 % 5:01 PM CDT HOSPITAL Glucose, Whole 161 70 - 180 03/03/2019 [facility] Blood mg/dL 5:01 PM CDT HOSPITAL Specimen Anatomical Collection Method Collection Time Receive d Time (Source) Location / / Volume Laterality Blood 03/03/2019 1:28 PM 9 5:01 CDT PM CDT Chintan Cobos MD LAB_1 Performing Organization Address [facility]/ZIP [facility] Phon e Number [facility] [address] [place] [address] Antibody Screen (03/03/2019 9:53 AM CDT) [facility] Method Time Signature Antibody Screen Negative 03/03/2019 [facility] BLOOD Interpretation 11:07 AM CDT BANK Specimen Anatomical Collection Method / Collection Time Recei donal Time (Source) Location / Volume Laterality Blood Venipuncture / 03/03/2019 9:53 03/03/2019 Unknown AM CDT 10:11 AM CDT Chintan Cobos MD LAB_1 Performing Organization Address [facility] Phon e Number [facility] BLOOD BANK [address] [place] [address] Blood Type (03/03/2019 9:53 AM CDT) P athologist Signature ABO O 03/03/2019 [facility] BLOOD 11:07 AM CDT BANK RH Positive 03/03/2019 [facility] BLOOD 11:07 AM CDT BANK Specimen Anatomical Collection Method / Collection Time Recei donal Time (Source) Location / Volume Laterality Blood Venipuncture / 03/03/2019 9:53 03/03/2019 Unknown AM CDT 10:11 AM CDT Chintan Cobos MD LAB_1 Performing Organization Address City/[facility] Phon e Number [facility] BLOOD [facility]ANK [address] [place] [address] Prep RBC: , 1 Units (03/03/2019 9:53 AM CDT) Component Value Ref Test Analysis Performed At [facility] Range Method Time Signature BLOOD PRODUCT [id number] [facility] CODE BLOOD BANK BLOOD UNIT NUMBER [id number] [facility] S BLOOD BANK CROSSMATCH Compatible [facility] INTERPRETATION BLOOD BANK BLOOD DISPENSE Returned/Releas [facility] STATUS ed BLOOD BANK Unit Expiration [id number] [facility] Date BLOOD BANK UNIT BT BARCODE 5100 [facility] BLOOD BANK CODING SYSTEM ISBT [facility] BLOOD BANK Specimen (Source) Anatomical Collection Method Collection Time Re ceived Time Location / / Volume Laterality Blood 03/03/2019 9:53 AM CDT Chintan Cobos MD LAB_BLOOD PRODUCTS Performing Organization Address City/State/ZIP Code Phon e Number [facility] BLOOD [facility] [address] [place] [address] documented in this encounter Visit Diagnoses Not on filedocumented in this encounter Care Teams Sales Floor Manager Relationship Specialty Start Date End Date Unassigned, Provider PCP - General 01 05/10/19 [address] [place] [address] documented as of this encounter
--- OUTSIDE RECORDS SUMMARY | 2022-06-18 12:04 | XMS_ITS | Encounter Summary ---
:2000 Author Organization [facility] Address [address] [place] [address] Care Team Providers Name Role Phone Unassigned, Provider Primary Care Provider Unavailable Reason for Visit Reason Comments Letter Encounter Details Date Type Department Care Team Description 06/17/2012 Telephone [facility] Meagan Haile MD Letter [id number] [address] [place] [address] [place] [address] (Wo rk) Social History Tobacco Use Types Packs/Day Years Used Date Smoking Tobacco: Never Assessed Sex Assigned at Date Recorded Not on file documented as of this encounter Nursing Notes Maggi Bloom - 06/18/2012 2:05 PM CST Letter faxed to [phone] as requested. Fax verification received. Maggi Bloom - 06/18/2012 11:44 AM CST Spoke with pt's mother. Instructed that letter was typed up, but we are waiting for Dr. Haile to sign. Will fax letter as soon as it is signed. Mom verbalized understanding and in agreement with plan. Maggi Bloom - 06/17/2012 3:50 PM CST Received phone call from pt's mother. States that they are trying to enroll pt in the [employer]. They need a letter that states that because of the child's diagnosis she is struggling academically and misses a significant amount of school. Mom would like the letter faxed to her at: [phone]. documented in this encounter Miscellaneous Notes Letter - 06/17/2012 12:00 AM CST Images from the original note were not included. [facility] [address] [facility] [id number] June 18, 2012 Patient: Dakota Casiano Date of : 2000 To Whom It May Concern: It is my medical opinion that Dakota Casiano is struggling academically and misses a significant amount of school due to medical reasons. Dakota is being seen by a pediatric order worker at [facility] in [place], [place]. Also, is seeing a neurologist in the [facility]. Both of these specialties require several office visits monthly as well as procedures and referrals to other specialties that require her to be absent from school. This being said, Dakota is unable to keep up with her school work. We are requesting that you asif Dakota approval to enroll in the [employer] Program. This will assist her in keeping up with her studies while she is unable to attend school. If you have any questions or concerns in regards to this matter, please don't hesitate to call. Thank you for your time and consideration. Sincerely, Meagan Haile MD S DEVELOPMENT REPRESENTATIVE documented in this encounter Plan of Treatment Not on filedocumented as of this encounter Visit Diagnoses Not on filedocumented in this encounter Care Teams Radiological Metallurgist Relationship Specialty Start Date End Date Unassigned, Provider PCP - General 01 05/10/[address] [place] [id number] documented as of this encounter
--- OUTSIDE RECORDS SUMMARY | 2022-06-18 12:04 | XMS_ITS | Encounter Summary ---
:2000 Author Organization [email or web address] Address [address] [place] [address] Care Team Providers Name Role Phone Unassigned, Provider Primary Care Provider Unavailable Reason for Visit Reason Comments Nurse Return Call Request Return Call Encounter Details Date Type Department Care Team Description 06/04/2012 Telephone [facility] Meagan Haile MD Nurse Return Call [address] [address]. [address] [facility] Request; Return Call [place], [place] [address] [phone] Social History Tobacco Use Types Packs/Day Years Used Date Smoking Tobacco: Never Assessed Sex Assigned at Date Recorded Not on file documented as of this encounter Nursing Notes Yamila Sanford - 06/05/2012 3:11 PM CDT [facility] unable to work new patients in at this time. Dr. Bravo from [facility] also spoke to Dr. Haile about patient. Pt is welcome to make appointment for next available which they are currently booking out until Aug 2012. Per Dr. Haile, called [facility] to see if patient could be seen there for a sooner appointment as [facility] Spoke to Joseline who requested related information be faxed to her at [phone]. Once received and reviewed Joseline will call back myself or Dr. Haile with an update of when pt can be seen there for neurology appointment. If questions before that, Joseline can be reached at [phone]. Chery Pino - 06/05/2012 1:35 PM CDT Non -Symptom Message from [facility] Primary Care Provider: Meagan Haile MD Message: Maribell at the [facility] is calling nurse re setting earlier appt. Please call back [place]. Yamila Sanford - 06/05/2012 1:25 PM CDT Called and spoke to [facility] per Dr. Meagan Haile to request sooner appointment for patient per Dr. Haile. If [facility] calls back please transfer them to Dr. Haile nurse @ [phone]. Yamila Sanford - 06/04/2012 2:12 PM CDT Pt seen at [facility] today with Dr. Oquendo @ [place] location following-up from sleep deprived EEG. Pt mom requesting to speak to Dr. Haile regarding her neurology appointment today and further follow-up. Informed mom Dr. Haile is out of office until 06/05/2012 and can address message at that time. Pt Mom is ok with plan. documented in this encounter Plan of Treatment Not on filedocumented as of this encounter Visit Diagnoses Not on filedocumented in this encounter Care Teams Wind Energy Systems Installer Relationship Specialty Start Date End Date Unassigned, Provider PCP - General 01 05/10/[address] [place] [id number] documented as of this encounter
--- OUTSIDE RECORDS SUMMARY | 2022-06-18 12:04 | XMS_ITS | Encounter Summary ---
:2000 Author Organization [facility] Address [address] [place] [address] Care Team Providers Name Role Phone Unassigned, Provider Primary Care Provider Unavailable Reason for Visit Reason Comments Forms Encounter Details Date Type Department Care Team Description 11/19/2012 Telephone [facility] Meagan Haile MD Forms [id number] [address]. [address] [place] [address] [place] [address] (Wo rk) Social History Tobacco Use Types Packs/Day Years Used Date Smoking Tobacco: Never Assessed Sex Assigned at Date Recorded Not on file documented as of this encounter Nursing Notes Yamila Sanford - 11/19/2012 3:35 PM CDT Pt mom calling wondering where pt MRI was done in 2008. Pt mom states records are in our scan doc and she cannot remember what facility it was done at. After going through scan doc records it appears patient had a MRI done at [facility] in 2011 which was compared to a CT done 05/11/2008 at the same facility. Informed mom to contact that facility HIM. Also gave her [facility] HIM # [phone] documented in this encounter Plan of Treatment Not on filedocumented as of this encounter Visit Diagnoses Not on filedocumented in this encounter Care Teams Paint Mixer Relationship Specialty Start Date End Date Unassigned, Provider PCP - General 01 05/10/[address] [place] [address] documented as of this encounter
--- OUTSIDE RECORDS SUMMARY | 2022-06-18 12:04 | XMS_ITS | Encounter Summary ---
:2000 Author Organization [email or web address] Address [address] [place] [address] Care Team Providers Name Role Phone Unassigned, Provider Primary Care Provider Unavailable Reason for Visit Procedure/Equipment (Routine) - Incomplete Specialty Diagnoses / Procedures Referred By Contact Refer red To Contact Diagnoses Bilateral ankle pain, unspecified chronicity Desire Acevedo MD Procedures XR Ankle Rt [address] [place] [address] [place], [place] [address] Referral ID Status Reason Start Date Expiration Date Visits V isits Requested Authorized [id number] Incomplete 03/21/2018 06/20/2019 1 1 Encounter Details Date Type Department Care Team Description 03/21/2018 Imaging [facility] Desire Acevedo, Bilateral ankle pain, [address] [facility] unspecified chronicity [place], [place] [address] [address] [facility] [phone] [place] [address] (Wo rk) Social History Tobacco Use Types Packs/Day Years Used Date Smoking Tobacco: Never Smokeless Tobacco: Never Sex Assigned at Date Recorded Not on file documented as of this encounter Plan of Treatment Not on filedocumented as of this encounter Procedures Procedure Name Priority Date/Time Associated Diagnosis Comme nts XR ANKLE LT 3 VIEWS Routine 03/21/2018 11:40 AM Bilateral ankl e Results for this CDT pain, unspecified procedure are in chronicity the results section. XR ANKLE RT 3 VIEWS Routine 03/21/2018 11:40 AM Bilateral ankl e Results for this CDT pain, unspecified procedure are in chronicity the results section. documented in this encounter Results XR Ankle Lt 3 [...] OCD lesions apparent and intact mortise. Desire Acevedo MD RAD GD XR Ankle Rt 3 Views (03/21/2018 11:40 [...] OCD lesions apparent and intact mortise. Desire Acevedo MD RAD GD documented in this encounter Visit Diagnoses Diagnosis Bilateral ankle pain, unspecified chroni city documented in this encounter Care Teams Fiberglass Bonding Machine Tender Relationship Specialty Start Date End Date Unassigned, Provider PCP - General 01 05/10/[address] [place] [address] documented as of this encounter
--- OUTSIDE RECORDS SUMMARY | 2022-06-18 12:05 | XMS_ITS | Encounter Summary ---
:2000 Author Organization [facility] Address [address] [address] Care Team Providers Name Role Phone Unassigned, Provider Primary Care Provider Unavailable Reason for Visit Reason Comments CONSULT Encounter Details Date Type Department Care Team Description 04/15/2012 Telephone [facility] Meagan Haile CONSULT [id number] [place] [address] Social History Tobacco Use Types Packs/Day Years Used Date Smoking Tobacco: Never Assessed Sex Assigned at Date Recorded Not on file documented as of this encounter Nursing Notes Yamila Sanford - 05/21/2012 10:37 AM CDT Pt had appointment at [facility] yesterday, May 20 for second opinion per Dr. Meagan Haile. Yamila Sanford - 04/24/2012 11:44 AM CDT Called [facility] per Dr. Haile to request additional records regarding patient history and past testing done with them. [facility] (attn: M[facility]) needs updated release of information faxed to them at fax before they can send us records. Called and spoke patient mom to give her this information.She states she will send MARTHA today. Dr. Meagan Haile will need these records before completing summary letter for [facility]. Maggi Hendricks - 04/15/2012 2:42 PM CDT Left mom a voice message that we were working on the referral to [facility]. Mom to call back with any questions or concerns at our main number and ask for nurse triage. Will keep mom updated in this process. Maggi Bloom - 04/15/2012 2:39 PM CDT Spoke with Peds GI at [facility]. Gave pt information and referral. Before appointment can be scheduled, they need a summary letter that includes: what pt is to be seen for, medications currently on, previous testing and diagnoses, and records. Should be faxed to: Attn: Pediatric GI. Once they receive the information and review it, they will advise if pt is appropriate for an appointment with them. If so, they will call the family to schedule an appointment and any testing that is needed. Will fax requested information as soon as pt records are loaded into [facility]. Meagan Haile MD - 04/15/2012 12:44 PM CDT I entered a referral for her to see [facility] for her abdominal pain and poor weight gain. She can continue to see her current foundry laborer coreroom. Yamila Sanford - 04/15/2012 10:35 AM CDT Pt mom calling for clarification regarding 2nd opinion referral to [facility] per Dr. Meagan Haile for allergy and GI concerns. Appointment needs to be scheduled and patient information faxed to [place]. documented in this encounter Plan of Treatment Not on filedocumented as of this encounter Visit Diagnoses Diagnosis Abdominal pain, generalized - Primary documented in this encounter Care Teams Heat Welder Plastics Relationship Specialty Start Date End Date Unassigned, Provider PCP - General 01 05/10/[address] [place] [id number] documented as of this encounter
--- OUTSIDE RECORDS SUMMARY | 2022-06-18 12:05 | XMS_ITS | Encounter Summary ---
:2000 Author Organization [facility] Address [address] [place] [address] Care Team Providers Name Role Phone Unassigned, Provider Primary Care Provider Unavailable Reason for Visit Reason Comments RESULTS, TEST Encounter Details Date Type Department Care Team Description 05/14/2012 Telephone [facility] Meagan Haile MD RESULTS, TEST [id number] [address]. [address] [place] [address] [place], [place] [id number] (Wo rk) Social History Tobacco Use Types Packs/Day Years Used Date Smoking Tobacco: Never Assessed Sex Assigned at Date Recorded Not on file documented as of this encounter Nursing Notes Yamila Sanford - 05/14/2012 1:[address] Meagan Haile, called and scheduled Sleep Deprived EEG for patient at [facility] ([place] location) as [facility] does not offer this service for pediatric patients. Appt scheduled for May 21 @ 845AM. Pt mom informed to have child wake up at 2AM the morning of the procedure and then stay awake until the procedure. Detailed instructions will also be mailed to family's home from neurology clinic. Pediatric Neurology appointment also scheduled for SaturdayJune 10 at 630pm with . Both of these appointments are for [place] office. Phone number # [phone] and appointment info given to patient mom. Called managed care and spoke to [facility], who will submit for referrals to both of these appointments. Reason for appointments: Increase in frequency ofheadaches and Abnormal MRI. Meagan Haile MD - 05/14/2012 10:18 AM CDT Spoke to mom re MRI of brain without contrast results and answered her questions. Dr. Judy CONCEPCION from [facility] called this morning to update me on his initial/preliminaryreading of the MRI -> on repeat review he noted that the right frontal area is slightly brighter on flair images. Stated that these changes are noted in the cortical area. Differential included artifactual versus cortical dysplasia versus low grade glioma. He states that the glioma is less likely secondary to no expansion or compression noted in the neighboring areas. Also discussed that these changes can be seen with seizures. Discussed these results with mother. Discussed that we will make a pediatric neurology appointment and schedule an EEG. Mom agrees with plan. Of note she states that she had a benign tumor removed fromher frontal region - unsure of type of tumor but mom will obtain the type/name of her tumor prior tothe neuro appointment. Repeat MRI to be done in 4 months with and without contrast as recommended by Dr. Kim. Yamila Sanford - 05/14/2012 10:07 AM CDT Transferred pt mom to Dr. Meagan Haile to discuss results of MRI of brain without contrast done 05/13/2012 @ [facility]. documented in this encounter Plan of Treatment Not on filedocumented as of this encounter Visit Diagnoses Diagnosis MRI of brain abnormal - Primary Nonspecific (abnormal) findings on radio logical and other examination of skull and head Persistent headaches Headache documented in this encounter Care Teams Rip And Groove Machine Operator Relationship Specialty Start Date End Date Unassigned, Provider PCP - General 01 05/10/[address] [place] [id number] documented as of this encounter
--- OUTSIDE RECORDS SUMMARY | 2022-06-18 12:05 | XMS_ITS | Encounter Summary ---
:2000 Author Organization [facility] Address [address] [place] [address] Care Team Providers Name Role Phone Unassigned, Provider Primary Care Provider Unavailable Reason for Visit Reason Comments CONSULT Encounter Details Date Type Department Care Team Description 05/07/2012 Telephone [facility] Meagan Haile MD CONSULT [address]. [address] [place] [address] [place] [address] (Wo rk) Social History Tobacco Use Types Packs/Day Years Used Date Smoking Tobacco: Never Assessed Sex Assigned at Date Recorded Not on file documented as of this encounter Nursing Notes Maggi Bloom - 05/09/2012 1:30 PM CDT Summary letter, referral, and [place] [facility] records faxed to Attn: Pediatric GI, fax # . Fax confirmation received. Copy of records sent to [facility]. Pt's mother notified that letter of referral was sent to [facility] today. Meagan Haile MD - 05/07/2012 3:30 PM CDT Yamini. The info is in the note. Please generate a letter. Thank you. Yamila Sanford - 05/07/2012 11:17 AM CDT Pt mom calling to check on status of referral to [facility]. See phone note regarding this issue dated 04/15/2012 for details. documented in this encounter Miscellaneous Notes Letter - 05/07/2012 12:00 AM CDT Images from the original note were not included. [address] [address] May 09, 2012 Patient: Dakota Casiano MR Number: [id number] Date of : 2000 Date of Visit: 03/31/2012 Dear [facility]: I am referring my patient, Dakota Casiano, to you for evaluation of chronic abdominal pain and poor weight gain. Abdominal pain: This is a 11-year-old female with a history of chronic abdominal pain since 2-3 years of age with postprandial worsening, chronic diarrhea, intermittent fecal incontinence and poor weight gain - all evaluations thus far have been negative except for mild lactose and fructose abnormal tests. 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 However, she continues to have poor weight gain and severe abdominal pains. She has been on a trial of Zantac, MiraLAX, Rose and Prilosec in the past without improvement of symptoms. Abdominal pain is postprandial but also rest. Pain occurs approximately 10-30 minutes after eating even with a bland diet. Also she doubles over with pain and cries therefore she restricts what she eats. She frequently wakes up at night with abdominal pain. There is no significant history of nausea or vomiting. She has no symptoms of reflux. Her bowel movements are daily or every other day. She always has loose bowel movements associated with urgency and occasional fecal incontinence. She states that her stools are extremely foul-smelling and filled with mucus and often float and appear bubbly. No history of dysphagia, odynophagia or sensation of food getting stuck during swallowing. She has an extremely poor appetite but has a desire to eat so that she can gain weightbut is unable to. Mother states that her growth charts are below the average and have been for premature entire life. There is no history of mouth ulcers, rashes, joint pains, unexplained fevers. Patient states that the symptoms have now become a part of her life but is often teased because of her weight. Friends in school are supportive however there are individuals who call her anorexic/bulimic. Investigations: Esophagogastroduodenoscopy and colonoscopy done in 2007: Showed mild irritation and biopsies were consistent with reflux esophagitis. Upper GI done in 2001 at [facility] showed grade 3 gastroesophageal reflux with normal anatomy. Ultrasound scan of the abdomen in January 2008 and January 2004 were normal. Gastric emptying assessment was slightly slow at one hour and within normal limits at 2 hours; studywas performed in 2009. Cystourethrogram [nuclear medicine] were normal in the past. 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 Allergy testing was unremarkable. Stool cultures were negative and included studies for Giardia, O/p, H Pylori. Celiac panel was negative. A CBC, liver enzymes, amylase and lipase, serum IgA levels and ESR have always been normal. Family history: Negative for gastroenterology. PMedical History: Scoliosis: Continues to use brace with good improvement. Continues to followup every 6 months. Gets spinal x-rays every year. IgG deficiency: Resolved. Status post one year of infusions. See scanned records. Hip dysplasia: Diagnosed at 2 months of age. s/p David harness resolved within 6 months. See scanned records. Asthma: Has albuterol inhaler. No hospitalizations or emergency room visits in the last 12 months. CACT score - 32. Receive flu shot today. Spirometry done by automatic mounter less than 6 months ago. Allergies: Continue to use Claritin. Also with automatic mounter annually. . I appreciate your assistance in her care and look forward to your findings and recommendations. Sincerely, Meagan Haile MD SITION REPORTER documented in this encounter Plan of Treatment Not on filedocumented as of this encounter Visit Diagnoses Not on filedocumented in this encounter Care Teams Live Truck Technician Relationship Specialty Start Date End Date Unassigned, Provider PCP - General 01 05/10/[address] [place] [id number] documented as of this encounter
--- OUTSIDE RECORDS SUMMARY | 2022-06-18 12:05 | XMS_ITS | Encounter Summary ---
:[address] [facility] Address [address], [place] [address] Care Team Providers Name Role Phone Unassigned, Provider Primary Care Provider Unavailable Reason for Visit Reason Comments WELL CHILD EXAM Encounter Details Date Type Department Care Team Description 03/31/2012 Office Visit [facility] Meagan Haile, Routine child health exam (P rimary Dx); [id number] Sebastian Anne MD Abdominal pain, chronic, generalized; [place] [address] Mild intermittent asthma with exacerbati on; [id number] [place], [place] Hip dysplasia; [phone] [id number] Scoliosis; [phone] IgG deficiency; (Work) Need for Tdap vaccination; Need for influenza vaccination; Examination of eyes and vision; Other examinati on of ears and hearing Social History Tobacco Use Types Packs/Day Years Used Date Smoking Tobacco: Never Assessed Sex Assigned at Date Recorded Not on file documented as of this encounter Last Filed Vital Signs Vital Sign Reading Time Taken Comments Blood Pressure 110/66 03/31/2012 5:20 PM CDT Pulse - - Temperature - - Respiratory Rate - - Oxygen Saturation - - Inhaled Oxygen Concentration - - Weight 27.6 kg (60 lb 14.4 oz) 03/31/2012 5:20 PM CDT Height 139.7 cm (4' 7) 03/31/2012 5:20 PM CDT Body Mass Index 14.15 03/31/2012 5:20 PM CDT Body Mass Index Percentile 4.18 % 03/31/2012 5:20 PM CD T Growth Chart: CDC (Girls, 2-20 Years) documented in this encounter Progress Notes Meagan Haile MD - 05/07/2012 3:26 PM CDT Subjective: Dakota Casiano is a 11 y.o. female who was brought in by her father & mother for this pre-adolescent well child visit. New patient to [facility]. history: Born at full-term with a weight of 9 pounds and 10 ounces. Past medical history: Ongoing abdominal pain, IgG deficiency, recurrent pneumonias, hip dysplasia, scoliosis. Concerns: Current concerns on the part of Dakota's father & mother include: ongoing abdominal pain. 1. Abdominal pain: This is a 11-year-old female with a history of chronic abdominal pain since 2-3 years of age with postprandial worsening, chronic diarrhea, intermittent fecal incontinence and poor weight gain - all evaluations thus far have been negative except for mild lactose and fructose abnormal tests. She's been followed by [place] [facility] where she was diagnosed with IgG deficiency [...] There is no significant history of nausea orvomiting. She has no symptoms of reflux. Her bowel movements are daily or every other day. She always has loose bowel movements associated with urgency and occasional fecal incontinence. She states that her stools are extremely foul-smelling and filled with mucus and often float and appear bubbly. No history of dysphagia, odynophagia or sensation of food getting stuck during swallowing. She has an ext remely poor appetite but has a desire to eat so that she can gain weight but is unable to. Mother states that her growth charts are below the average and have been for premature entire life. However hedid not have his growth charts available to me today. There is no history of mouth ulcers, [...] esophagitis. Upper GI done in 2001 at [facility] showed grade 3 gastroesophageal reflux with normal [...] 6 months. Gets spinal x-rays every year. See scanned records. IgG deficiency: Resolved. Status post one year of infusions. See scanned records. Hip dysplasia: Diagnosed at 2 months of age. s/p David harness resolved within 6 months. See scanned records. Asthma: Has albuterol inhaler. No hospitalizations or emergency room visits in the last 12 months. CACT score - 32. Receive flu shot today. Spirometry done by supply coordinator less than 6 months ago. Allergies: Continue to use Claritin. Also with supply coordinator annually. Review of Nutrition: adequate dairy, varied table foods including iron and good appetite Elimination: Stools are: soft and regular Sleep: Gets enough rest at night; not excessively tired during the day Medications: Current Medications: None. Habits and Concerns: Patients habits and concerns section was reviewed and updated as appropriate. Screen time: 1-2/day Seatbelts/helmets: Yes Has good friends: Yes Has ways to deal with stress: Yes Dental Care: Brushes twice a day. Regular dental visits. Behavioral and Development Screens and Surveillance: Tool: PSC Result: WNL Family and Social History: Parental coping and self care: doing well; no concerns Family Circumstances: No difficulties. No changes at home Objective: BP 110/66 Ht 4' 7 (139.7 cm) Wt 60 lb 14.4 oz (05670 g) BMI 14.15 kg/m2 Weight: 60 lb 14.4 oz (87948 g) (7.48%) Height: 4' 7 (139.7 cm) (37.66%) Growth parameters are noted and are appropriate for age. Body mass index is 14.15 kg/(m^2). General:active, alert, no distress and interacts appropriately for age Head: normal shape and size Eyes: red reflex normal bilaterally, appear normal and seems to see ENT:Ears: no deformity, normal TM's Neck:normal, full range of motion, no mass, no thyromegaly Chest:normal respiratory effort, lungs clear to auscultation, normal shape, normal breathing pattern Heart:regular rate and rhythm, normal heart sounds, no murmurs Abdomen: normal appearance, soft, non-tender, without organ enlargements, no masses Genitourinary: normal female Musculoskeletal: normal Skin: no rash or lesions Neurologic: non focal, normal strength, normal tone, age-appropriate responsiveness and reflexes, symmetric movements Assessment: Healthy 11 y.o. 8 m.o. female with hip dysplasia, scoliosis, status post IgG deficiency, seasonal allergies, asthma and chronis abdominal pain with poor weight gain here for pre-adolescent WCC. Plan: Abdominal pain: Referred to [facility] for further evaluation. Has had a complete evaluation by [place] [facility] and continues to severe abdominal pain and diarrhea with poor weight gain. Will send letter to [facility] so that appointment can be made. Scoliosis: Continues to use brace and follow up with orthopedics in 6 months. Hip dysplasia: No further followup needed. IgG deficiency: No further followup needed. Allergies: Continue to use Claritin during the spring and fall. Asthma: Well controlled. Continue to use albuterol inhaler as needed. Flu shot given today. Anticipatory Guidance: Questions and concerns discussed, standard anticipatory guidance handout given and reviewed. Also discussed nutrition, exercise, safety concerns, screen time/habits, puberty/growth/body changes, dealing with stress, school. Vaccinations and Other orders: Immunization counseling provided. Flu vacccine recommended each fall. Orders Placed This Encounter Procedure ??? IMMUNIZATION COUNSELING PERFORMED BY CLINICIAN ??? Tdap (BOOSTRIX) ??? Influenza TIV (36+ MOS) ??? Varicella ??? UT VISUAL SCREENING TEST, BILAT ??? UT PURE TONE HEARING TEST, AIR Passed hearing and vision. Continue dental visits q.6 months. Passed PSC. Follow-up visit in 2 years for next well child visit, or sooner as needed. documented in this encounter Plan of Treatment Not on filedocumented as of this encounter Visit Diagnoses Diagnosis Examination of eyes and vision Abdominal pain, chronic, generalized Abdominal pain, generalized Mild intermittent asthma with exacerbati on (HRC) Unspecified asthma, with exacerbation Hip dysplasia Other congenital deformity of hip (joint ) Scoliosis Scoliosis (and kyphoscoliosis), idiopath ic IgG deficiency (HRC) Other selective immunoglobulin deficienc ies Need for Tdap vaccination Need for prophylactic vaccination with c ombined evsfjuriom-lqoatuc-lcrireggs (DTP) vaccine Need for influenza vaccination Need for prophylactic vaccination and in oculation against influenza Other examination of ears and hearing documented in this encounter Care Teams Tobacco Roller Relationship Specialty Start Date End Date Unassigned, Provider PCP - General 01 05/10/[address] [place] [id number] documented as of this encounter
--- OUTSIDE RECORDS SUMMARY | 2022-06-18 12:05 | XMS_ITS | Encounter Summary ---
:2001 Author Organization [facility] Address [address] [place] [address] Care Team Providers Name Role Phone Unassigned, Provider Primary Care Provider Unavailable Reason for Visit Reason Comments Forms Encounter Details Date Type Department Care Team Description 06/04/2012 Notes/Orders [facility] [place] [address] [address] [address] [place] [address] [place], [place] [id number] (Wo rk) Social History Tobacco Use Types Packs/Day Years Used Date Smoking Tobacco: Never Assessed Sex Assigned at Date Recorded Not on file documented as of this encounter Progress Notes Meagan Haile MD - 06/04/2012 10:51 AM CDT Spoke with Dr. Oquendo but she didn't have access from home to Dakota's chart. Gave her summary of her history. She will call us if she has further questions. Yamila Sanford - 06/04/2012 8:[address] Oquendo calling from [facility] of neurology requesting additional records on mutual patient Tangela Casiano. Pt has appointment with Dr. Oquendo today to reivew her sleep-deprived EEG and recent possible related symptoms. Reviewed pertinent information in scan doc per Dr. Meagan Haile and faxed requested information to # . Also called managed care to notify them that original referral was submitted for appointment on Jun 10, but patient is now being seen today, 06/04/2012 instead. documented in this encounter Plan of Treatment Not on filedocumented as of this encounter Visit Diagnoses Not on filedocumented in this encounter Care Teams Exterminator Termite Relationship Specialty Start Date End Date Unassigned, Provider PCP - General 01 05/10/[address] [place] [id number] documented as of this encounter
--- OUTSIDE RECORDS SUMMARY | 2022-06-18 12:05 | XMS_ITS | Encounter Summary ---
:2001 Author Organization [facility] Address [address] [place] [address] Care Team Providers Name Role Phone Unassigned, Provider Primary Care Provider Unavailable Reason for Visit Reason Comments Follow-up Encounter Details Date Type Department Care Team Description 05/23/2012 Notes/Orders [facility] [address] [address]. [address] [place] [address] [place] [address] (Wo rk) Social History Tobacco Use Types Packs/Day Years Used Date Smoking Tobacco: Never Assessed Sex Assigned at Date Recorded Not on file documented as of this encounter Progress Notes Yamila Sanford - 06/04/2012 4:11 PM CDT Pt mom has questions regarding dietary needs. Per Dr. Haile, called [facility] Dietary Dept to ask train system operator to review gluten free diet and lactose free diet options/ recommended by Dr. Humphries. Spoke Shakeel Adams, Power Lineman Technician who stated she will call family and discuss patient situation/options and determine if dietary appointment is appropriate. Juan is aware patient still has future follow-up appointments with [facility] and further diagnostic studies. Yamila Sanford - 05/23/2012 5:07 PM CDT Javier, Vice President Process to Dr. Humphries at [facility] (#[phone]) calling to follow-up regarding patient appointment with [facility] 05/20/2012. Labs are still pending but Dr. Humphries is anticipating patient will need a Nutrition appointment with a Senior Instrumentation Engineer once labs are back. Dr. Humphries is comfortable with patient either seeing a local train system operator or one at the [facility]. Also called and spoke to patient's mom who stated Dr. Humphries had already contacted her with same information. Forward to Dr. Haile for FYI. Pt mom also aware Dr. Haile out of office until Jun 02 and is comfortable with planat this time. documented in this encounter Plan of Treatment Not on filedocumented as of this encounter Visit Diagnoses Not on filedocumented in this encounter Care Teams Batch Tank Controller Relationship Specialty Start Date End Date Unassigned, Provider PCP - General 01 05/10/[address] [place] [id number] documented as of this encounter
--- OUTSIDE RECORDS SUMMARY | 2022-06-18 12:05 | XMS_ITS | Encounter Summary ---
:2001 Author Organization [facility] Address [address] [place] [address] Care Team Providers Name Role Phone Unassigned, Provider Primary Care Provider Unavailable Encounter Details Date Type Department Care Team Description 05/28/2012 Notes/Orders [facility] [address] [address] [address] [place] [address] [place] [address] (Wo rk) Social History Tobacco Use Types Packs/Day Years Used Date Smoking Tobacco: Never Assessed Sex Assigned at Date Recorded Not on file documented as of this encounter Progress Notes Yamila Sanford - 06/04/2012 12:01 PM CDT Received letter via fax regarding Special Diet Statement, from patient mom. Form reviewed and signed by Dr. Meagan Haile. Copy of form faxed to patient school at [facility] fax # as well as copy to patient mom per her request. Pt Mom also notified this was done. Form sent toSDO. Maggi Bloom - 05/28/2012 4:29 PM CDT Received a letter of medical necessity from [facility] for pt's transportation costs to [facility]. Form filled out and faxed to . Fax verification received. Copy of form sent to [facility]. documented in this encounter Plan of Treatment Not on filedocumented as of this encounter Visit Diagnoses Not on filedocumented in this encounter Care Teams Pole Framer Relationship Specialty Start Date End Date Unassigned, Provider PCP - General 01 05/10/[address] [place] [id number] documented as of this encounter
--- OUTSIDE RECORDS SUMMARY | 2022-06-18 12:05 | XMS_ITS | Encounter Summary ---
:2001 Author Organization [facility] Address [address] [place] [address] Care Team Providers Name Role Phone Unassigned, Provider Primary Care Provider Unavailable Reason for Visit Reason Comments Post Visit Follow Up Encounter Details Date Type Department Care Team Description 05/22/2012 Telephone [facility] Me[place] [address] [address]. [address] [place], [place] [address] [phone] Social History Tobacco Use Types Packs/Day Years Used Date Smoking Tobacco: Never Assessed Sex Assigned at Date Recorded Not on file documented as of this encounter Nursing Notes Yamila Sanford - 05/23/2012 8:28 AM CDT Late entry. Yesterday, Called and requested additional records from [facility] which were received and given to Dr. Meagan Haile. Also called [facility] for neurology ([place]) for EEG report per and requested it be faxed when available. Meagan Haile MD - 05/22/2012 10:48 AM CDT Spoke with mom to review notes from [facility]. Mom in contact with [facility]. During visit to [facility] also sawimmunology, IDisease and mom believes nephrology. Triage/nursing will work to get those records faxed to us. Additional stool samples dropped off at [facility] to be shipped to [facility] since one of her stool samples was abnormal. Dakota also has an appointment with Pediatric neurology coming up. Her 1hour EEG was done yesterday and results will likely be available in the next 5-7days. Mom mentioned that in Mar and recently she noticed that she shakes for 1 min intervals during the night. Mom to mention this along with MRI abnormality in the frontal region at visit with neuro... she may need a 24hours EEG. Yamila Sanford - 05/22/2012 9:[address] Haile, called to request records from [facility] from pt appointment on 05/20/2012. Records from appointment received with the exception of KEENA still pending. If there are further questions, Javier at [facility] pediatrics can be reached at [phone]. documented in this encounter Plan of Treatment Not on filedocumented as of this encounter Visit Diagnoses Not on filedocumented in this encounter Care Teams Distribution Field Engineer Relationship Specialty Start Date End Date Unassigned, Provider PCP - General 01 05/10/[address] [place] [id number] documented as of this encounter
--- OUTSIDE RECORDS SUMMARY | 2022-06-18 12:05 | XMS_ITS | Encounter Summary ---
:2001 Author Organization [facility] Address [address] [place] [address] Care Team Providers Name Role Phone Unassigned, Provider Primary Care Provider Unavailable Reason for Visit Reason Comments Appt. Needed Encounter Details Date Type Department Care Team Description 05/12/2012 Notes/Orders [facility] [place]agan [place], [place] [address] Sebastian Anne MD headaches (Primary Dx) [place] [address] [facility] [address] [place], [place] [phone] Social History Tobacco Use Types Packs/Day Years Used Date Smoking Tobacco: Never Assessed Sex Assigned at Date Recorded Not on file documented as of this encounter Progress Notes Yamila Sanford - 05/12/2012 10:41 AM CDT Order printed, signed by Dr. Meagan Haile, and faxed to [facility] # . Meagan Haile MD - 05/12/2012 9:28 AM CDT Spoke with mom for an update. Letter received by [facility]. Per mom - appointment to be scheduled within the next week hopefully after they review her letter and all the supporting documents sent by our office. Mom also revealed ongoing headaches that are worsening in intensity and frequency and now occurring almost every other day with worsening intensity. Mother reports that pain localizes at the top of herhead and she complains of numbness throughout this region and her forehead. Headaches ongoing for 4-5 months but were so inconsistent that they were not mentioned in the past. She declines feelings of AM vomiting, ataxia, vision changes, tinnitus, change in smell or taste or hearing, extremity weakness or numbness. No auras prior to headaches. OTC pain relievers help pain but not the sensation of numbness to the top of her head - which can last 2-3 hours after the headache has resolved. Headaches not associated with any specific time of day or activity. No history of concussion. Declines headaches wakening her from sleep. + FHx of headaches/migraines. In addition to her headaches she continues to have severe abdominal cramping and pain. Her nausea isextremely bad despite taking her Tapazole. Mother states that she continues to lose weight and is not tolerating p.o. well the vomitus is an ongoing issue bites it reached a peak this past week. No blood has been noted in her stools. She continues to have one loose stool per day - frothy,floats and is extremely foul-smelling. Discussed with mom that head MRI will be scheduled on Saturday for the soonest possible appointment tor/o intracranial lesion and that our office would follow- up with [facility] this week to see if there's any additional info that they may need. Mom agrees with plan. Yamila Sanford - 05/12/2012 9:05 AM CDT MRI of brain without contrast scheduled per Dr. Meagan Haile @ [facility] Radiology dept. Check in at 430pm 1st floor radiology dept for 5pm appointment. Called managed care for referral as [facility] booking out too far. Called patient mom to give her this information as well as [facility] rescheduling number . MRI order from Dr. Meagan Haile needs to be faxed to [facility] @ # . documented in this encounter Plan of Treatment Not on filedocumented as of this encounter Visit Diagnoses Diagnosis Increased frequency of headaches - Prima ry Headache documented in this encounter Care Teams Devil Tender Relationship Specialty Start Date End Date Unassigned, Provider PCP - General 01 05/10/[address] [place] [id number] documented as of this encounter
[2022-06-18 12:30] LABS: Hemoglobin A1C* 5.1 % (0-5.6)
== END 2022-06-18 11:48 | disposition home or self-care (01) ==
LOC: NFLDREF 11:52
PROVIDERS: PCP Family Medicine; Visit Provider Obstetrics & Gynecology
DX: N92.0 Excessive and frequent menstruation with regular cycle (principal); Z83.3 Family history of diabetes mellitus; Z83.49 Family history of other endocrine, nutritional and metabolic diseases
CPT/HCPCS: 83036; 84443

== ENCOUNTER 2022-07-02 20:08 | Emergency (ER) | payer OTHER, MEDICAID, SELFPAY ==
[2022-07-02 21:13] VITALS: BP 132/78; PULSE 110; RESP 20; TEMP 38; O2SAT 99; BMI 22.3
--- NOTE | 2022-07-02 21:30 | ED_ITS ---
HPI - Fever General Chief Complaint: Fever Stated Complaint: Temp of 102.4 Time Seen by Provider: 07/02/22 21:10 History of Present Illness HPI Narrative: Pt is an otherwise healthy 20 year old non woman who presents with a one day history of cough and fever. She works at [employer] and tested negative for COVID earlier today. No shortness of breath, nausea, vomiting or abd pain. No rash. Pt has not taken any tylenol or motrin at home. No rashes or dysuria. Related Data Previous Rx's Medication Instructions Recorded sertraline 200 mg capsule 200 mg PO QDAY #30 caps 01/31/22 fluticasone propionate 50 1 - 2 spray intranasal DAILY #16 04/19/22 mcg/actuation nasal grams spray,suspension norethindrone acetate 1 mg-ethinyl 1 tab PO QDAY #63 tabs 06/18/22 estradiol 20 mcg tablet (Junel) tranexamic acid 650 mg tablet 1,300 mg PO Q8H 5 days #30 tabs 06/18/22 Review of Systems Status of ROS Reports: 10 or more systems reviewed and unremarkable except as noted in History and below [facility] Medical History Family history of diabetes during Menorrhagia Social History Smoking Status: Never smoker Exam Narrative Exam Narrative: EXAM GENERAL: Patient appears comfortable and well. EYES: No scleral icterus. ENT: Tympanic membranes and oropharynx normal. THYROID: no thyroid nodules or thyromegaly. LYMPH: No supraclavicular or cervical lymphadenopathy. SKIN: Visible skin seen during exam normal or with benign process only. EXT: No dependent lower extremity pedal edema. HEART: Regular rate and rhythm with no murmurs, rubs, or gallops. LUNGS: Clear to auscultation bilaterally with no crackles or wheezes. ABD: Soft, non tender, non distended. PSYCH: Good eye contact, speech is not pressured. Const Vital Signs, click to edit/add: Vital Signs - 24 hr 07/02/22 21:13 Temperature 100.4 F H Pulse Rate [Right Pulse Oximeter] 110 H Respiratory Rate 20 Blood Pressure [Right Upper Arm] 132/78 Pulse Oximetry 99 Oxygen Delivery Method Room Air Course Course Hospital Course: Pt seen and examined. COVID, Influenza and strep swabs collected Vital Signs Vital signs: Initial Vital Signs Temperature 100.4 F H 07/02/22 21:13 Temperature Source Oral 07/02/22 21:13 Pulse Rate 110 H 07/02/22 21:13 Respiratory Rate 20 07/02/22 21:13 Blood Pressure 132/78 07/02/22 21:13 Blood Pressure Mean 96 07/02/22 21:13 Blood Pressure Position Sitting 07/02/22 21:13 Pulse Oximetry 99 07/02/22 21:13 Oxygen Delivery Method 07/02/22 21:13 Vital Signs Temperature 100.4 F H 07/02/22 21:13 Pulse Rate 110 H 07/02/22 21:13 Respiratory Rate 20 07/02/22 21:13 Blood Pressure 132/78 07/02/22 21:13 Pulse Oximetry 99 07/02/22 21:13 Oxygen Delivery Method 07/02/22 21:13 Temperature 100.4 F H 07/02/22 21:13 Pulse Rate 110 H 07/02/22 21:13 Respiratory Rate 20 07/02/22 21:13 Blood Pressure 132/78 07/02/22 21:13 Pulse Oximetry 99 07/02/22 21:13 Oxygen Delivery Method 07/02/22 21:13 MDM - Fever MDM Narrative Medical decision making narrative: Pt presents with fever and cough. COVID, Influenza and Strep swabs collected. Pt will be treated with tyelnol, motrin, rest and fluids and we will contact her with her swab results and further recommendations. Differential Diagnosis Differential diagnosis: Likely fever of unknown origin, gastroenteritis, community acquired pneumonia, viral infection, sepsis and influenza Discharge Plan Discharge Clinical Impression: Fever Patient Disposition: Home, Self-Care Condition: Stable Instructions: Fever in Adults (ED) Additional Instructions: Tyelnol Motrin Rest Fluids We will contact you on your results. Activity Level: No Restrictions Discharge Diet: Regular Prescriptions: No Action norethindrone ac-eth estradiol [08/24 (21)] 1-20 mg-mcg tablet 1 tab PO QDAY Qty: 63 5RF Rx Instructions: pt needs an appt for any future refills. tranexamic acid 650 mg tablet 1,300 mg PO Q8H 5 Days Qty: 30 4RF sertraline 200 mg capsule 200 mg PO QDAY Qty: 30 0RF Rx Instructions: temporary refill until psychiatry appointment only. fluticasone propionate 50 mcg/actuation spray,suspension 1 - 2 spray intranasal DAILY Qty: 16 2RF Rx Instructions: administer into each nostril Follow Up/Referrals: Josh Carrero MD [Primary Care Provider] - Stand Alone Forms: [employer] Info Instructions
--- OUTSIDE RECORDS SUMMARY | 2022-07-02 21:44 | XMS_ITS | Encounter Summary ---
:2001 Author Organization [facility] Address [address] [place] [address] Care Team Providers Name Role Phone Julian Spencer MD Unavailable Julian Spencer MD Unavailable Josh Carrero Primary Care Provider Urbano Price MD Unavailable Joe Leo MD Unavailable Joe Leo MD Unavailable Douglas Gonzalez MD Unavailable [phone] Douglas Gonzalez MD Unavailable [phone] Reason for Referral Diagnostic Imaging XR (Routine) - Pending Review Specialty Diagnoses / Procedures Referred By Contact Refer red To Contact Diagnoses S/P spinal surgery Julian Spencer MD Procedures XR Pelvis 1/[address] [place], [place] [address] Referral ID Status Reason Start Date Expiration Date Visits V isits Requested Authorized [id number] Pending 08/24/2021 08/24/2022 1 1 Review INUOUS DRIER HELPER Encounter Details Date Type Department Care Team Description 08/24/2021 [facility] MD Darell (Primary Dx) [address] [place] [address] [address] [place] [address] Social History Tobacco Use Types Packs/Day [...] with No / Unsure 08/22/2021 2:46 PM CONTINUOUS DRIER HELPER someone who was confirmed or suspected to have Coronavirus / COVID-19? 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 WILNER DREW Narrative 08/24/2021 4:00 PM CONTINUOUS DRIER HELPER One view pelvis radiograph(s) 08/24/2021 3:58 PM [...] iliac bone at the sacroiliac joint. WILNER [employer] Julian Spencer MD IMG DIAGNOSTIC IMAGING ORDER DANO documented in this encounter Visit Diagnoses Diagnosis S/P spinal surgery - Primary Other postprocedural status S/P spinal surgery Other postprocedural status documented in this encounter Care Teams Fountain Waitress/Waiter Relationship Specialty Start Date End Date Josh Carrero PCP - General Family Medicine 08/09/[address] [address] Julian Spencer MD Orthopedics 03/08/20 MD Darell [facility] [place] [address] Julian Spencer Assigned Musculoskeletal 05/27/20 MD Darell Provider [facility] [place] [address] Urbano Price Assigned PCP 11/13/20 MD Esteban [address] [place] [address] Joe Leo MD Physical Medicine and 04/11/21 MD Rehabilitation [address] [place] [address] 544135 Joe Leo, Ade Neuroscience 04/30/[address] [place] [address] 650235 Douglas Gonzalez MD Pediatrics 05/29/21 MD Julian [address] 089494 Douglas Gonzalez Assigned Pediatric 06/04/21 MD Julian Specialist Provider [facility] [address] [phone] documented as of this encounter
--- OUTSIDE RECORDS SUMMARY | 2022-07-02 21:44 | XMS_ITS | Encounter Summary ---
:2001 Author Organization [place] Address [address] [place] [address] Care Team Providers Name Role Phone Julian Spencer MD Unavailable Julian Spencer MD Unavailable Josh Carrero Primary Care Provider Urbano Price MD Unavailable Joe Leo MD Unavailable Joe Leo MD Unavailable Douglas Gonzalez MD Unavailable [phone] Douglas Gonzalez MD Unavailable [phone] Reason for Visit Reason Onset Date Comments MyChart Communication 04/19/2022 [facility] Care Coordination - Follow-up 04/19/2022 Encounter Details Date Type Department Care Team Description 04/19/2022 Telephone [facility] Julian Spencer Co mmunication Orthopedic Clinic MD Darell (Jacob [facility]); Clinic [address] - [address] [place] [address] [address] Follow-up 4th [place] [address] [phone] Social History Tobacco Use Types Packs/Day Years [...] from the original note were not included. [place] [facility] Call Center Phone Message May a detailed message be left on voicemail: no Reason for Call: Other: Patient MyChart question Action Taken: Message routed to: [facility] Travel Screening: Not Applicable documented in this encounter Plan of Treatment Not on filedocumented as of this encounter Visit Diagnoses Not on filedocumented in this encounter Care Teams Gold Leaf Gilder Relationship Specialty Start Date End Date Josh Carrero PCP - General Family Medicine 08/09/[address] [address] Julian Spencer MD Orthopedics 03/08/20 MD Darell [address] [place] [address] [phone] Julian Spencer Assigned Musculoskeletal 05/27/20 MD Darell Provider [address] [place] [address] 867644 Urbano Price Assigned PCP 11/13/20 MD Esteban [address] [place] [address] [phone] Joe Leo MD Physical Medicine and 04/11/[address] [place] [address] [phone] Joe Leo, Ade Neuroscience 04/30/21 MD Provider [address] [place] [address] [phone] Douglas Gonzalez MD Pediatrics 05/29/21 MD Julian [address] [place] [address] Douglas Gonzalez Assigned Pediatric 06/04/21 MD Julian Specialist Provider [address] [place] [address] documented as of this encounter
--- OUTSIDE RECORDS SUMMARY | 2022-07-02 21:44 | XMS_ITS | Encounter Summary ---
:2001 Author Organization [place] Address [address] [place] [address]. [place] [address] Care Team Providers Name Role Phone Julian Spencer MD Unavailable Julian Spencer MD Unavailable Josh Carrero Primary Care Provider Urbano Price MD Unavailable Joe Leo MD Unavailable Joe Leo MD Unavailable Douglas Gonzalez MD Unavailable [phone] Douglas Gonzalez MD Unavailable [phone] Encounter Details Date Type Department Care Team Description 12/13/[address] [facility], Urbano Orellana MD Pediatric Specialty Clinic [address] [place] [address] [place], [place] [phone] Social History Tobacco Use Types Packs/Day Years [...] on filedocumented in this encounter Care Teams Homeowner Association Manager Relationship Specialty Start Date End Date Josh Carrero PCP - General [facility] Medicine 08/09/[address] [phone] Julian Spencer MD Orthopedics 03/08/20 MD Darell [facility] [place] [address] Julian Spencer Assigned Musculoskeletal 05/27/20 MD Darell Provider [facility] [place] [address] Urbano Price Assigned PCP 11/13/20 MD Esteban [facility] [place] [address] Joe Leo MD Physical Medicine and 04/11/21 MD Rehabilitation [address] [address] Joe Leo, Assigned Neuroscience 04/30/21 MD Provider [address] [address] Douglas Gonzalez MD Pediatrics 05/29/21 MD Julian [facility] [address] [address] Douglas Gonzalez Assigned Pediatric 06/04/21 MD Julian Specialist Provider [address] [place] [address] documented as of this encounter
--- OUTSIDE RECORDS SUMMARY | 2022-07-02 21:44 | XMS_ITS | Clinical Summary ---
:2001 Author Organization [place] Address [address] [place] [address] Care Team Providers Name Role Phone Julian Spencer MD Unavailable Julian Spencer MD Unavailable Josh Carrero Primary Care Provider Urbano Price MD Unavailable Joe Leo MD Unavailable Joe Leo MD Unavailable Douglas Gonzalez MD Unavailable [phone] Douglas Gonzalez MD Unavailable [phone] Allergies Active Allergy Reactions Severity Noted Date [...] disorder persistent (H) bleeding. 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, thoracolumbar region 2019 Tethered cord 05/05/2020 Resolved Problems Problem Noted Date Resolved Date Chronic right-sided low back pain without sciatica 02/06/2021 Aftercare following surgery of the musculoskeletal system 02/06/2021 Acute post-operative pain 08/10/2020 08/16/2020 Encounters Date Type Specialty Care Team Description 06/21/2022 Telephone Pediatric [facility] Hematology/Oncology MD Nettie 06/15/2022 Telephone Pediatric Yolanda Kumar RN Clinic Car e Coordination Hematology/Oncology - Follow -up 04/19/2022 Telephone Orthopedics Julian Spencer MD (Jacob ms); Clinic Care Coordinati on - Follow-up from [...] Comments Blood Pressure 109/71 08/22/2021 2:57 PM GENERAL MERCHANDISE SALESPERSON Pulse 71 08/22/2021 2:57 PM GENERAL MERCHANDISE SALESPERSON Temperature 36.9 ??C (98.4 ??F) 08/22/2021 2:57 PM GENERAL MERCHANDISE SALESPERSON Respiratory Rate 16 08/22/2021 2:57 PM GENERAL MERCHANDISE SALESPERSON Oxygen Saturation 100% 08/22/2021 2:57 PM GENERAL MERCHANDISE SALESPERSON Inhaled Oxygen Concentration - - Weight 57.6 kg (126 lb 15.8 oz) 08/22/2021 2:57 PM GENERAL MERCHANDISE SALESPERSON Height 160.9 cm (5' 3.35) 08/22/2021 2:57 PM GENERAL MERCHANDISE SALESPERSON Body Mass Index 22.25 08/22/2021 2:57 PM GENERAL MERCHANDISE SALESPERSON Plan of Treatment Health Maintenance Due Date [...] history exists Medical Devices Implanted Type Area Director Visual Device Shelf Model / Serial / Identifier Expiration Lot Date Graft Bone Crush Canc 30ml [id number] Bone/Tissu N/A: MUSCULOSKELETAL 05/12/2023 [id number] / Implanted: Qty: 1 on 08/09/2020 by Julian Spencer MD at [facility] e/Biologic Back RAMIREZ [id number] / Imp Sincere Medt Solera Tial Str Lined 5.0q075cm [id number] Metallic N/A: [employer] [id number] / Implanted: Qty: 2 on 08/09/2020 by Julian Spencer MD at [facility] Hardware/A Back / nchor [id number] Graft Bone Infuse Bmp Med [id number] N/A: [employer], 05/04/2022 [id number] / Implanted: Qty: 1 on 08/09/2020 by Julian Spencer MD at [facility] Back INC-DANEK / [id number] Explanted Type Area Director Visual Device Shelf Model / Identifier Expiration Date Ser ial / Lot Explanted Spinal Hardware N/A: Back Explanted: Qty: 1 on 08/09/2020 by Julian Spencer MD at [facility] Insurance Payer Benefit Plan / Subscriber ID Effective Phone Address T ype Group Dates [place]REFERRED[place] [id number] 2014-Pres [id number] [address] PPO ADVANTAGE ent 000 [place] [address] MED[place] [id number] 2019-Pres [phone] [address] dicaid ent [id number] [place] [address] (Home) W none (Work) [facility] [id number] Dakota Casiano Personal/Family Self [address] (Home) [place] [address] Advance Directives For more information, please contact: [phone] Latest Code Status on File Code Status Date Activated Date Inactivated Comments Full Code 08/10/2020 6:24 AM 08/16/2020 3:52 PM All basic and advanced life-sustaining interventions ar e performed as appropriate Question Answer Comments Code status determined by: Discussion with patient/ legal de cision maker Care Teams Assistant Credit Manager Relationship Specialty Start Date End Date Josh Carrero PCP - General Family Medicine 08/09/[address] [address] Julian Spencer MD Orthopedics 03/08/20 MD Darell [address] [place], [place] 144[address] Julian Spencer Assigned Musculoskeletal 05/27/20 MD Darell Provider [address] [place], [place] [phone] Urbano Price Assigned PCP 11/13/20 MD Esteban [address] [place] [address] [phone] Joe Leo MD Physical Medicine and 04/11/[address] [place] [address] [phone] Joe Leo, Assigned Neuroscience 04/30/21 MD Provider [address] [place] [address] 737605 Douglas Gonzalez MD Pediatrics 05/29/21 MD Julian [address] [place] [address] [phone] Douglas Gonzalez Assigned Pediatric 06/04/21 MD Julian Specialist Provider [address] [place] [address] [phone]
--- OUTSIDE RECORDS SUMMARY | 2022-07-02 21:44 | XMS_ITS | Encounter Summary ---
:2001 Author Organization [facility] Address [address] [place] [address]. [place] [address] Care Team Providers Name Role Phone Julian Spencer MD Unavailable Julian Spencer MD Unavailable Josh Carrero Primary Care Provider Urbano Price MD Unavailable Joe Leo MD Unavailable Joe Leo MD Unavailable Douglas Gonzalez MD Unavailable [phone] Douglas Gonzalez MD Unavailable [phone] Encounter Details Date Type Department Care Team Description 12/10/2021 Orders Only Pediatric Urbano Price Platelet dis order (H) (Primary Dx); Endocrinology MD Esteban Chronic pain syndrome; [facility] [address] [place] [address] Excessive menstruation at pu elise; [address] POTS (postural orthostatic tachycardia s yndrome); [address] [place] [address] Fatigue, unspecified [place], [place] [address] [phone] Social History Tobacco Use Types Packs/Day Years [...] Results (ABNORMAL) Ferritin (12/11/2021 10:18 AM CDT) P [...] Address City/State/ZIP Code Phon [place] [phone] Care Lab [address] Lab (1st floor, no room number) [...] Address City/State/ZIP Code Ph[place] [phone] Care Lab [address] Lab (1st floor, no room number) [...] City/State/ZIP Code Phon [place] [address] Care Lab [address] Lab (1st floor, no room number) [...] and gender (Liset et al., NEJ, DOI: 10.1056/UFDLpz3918043) Specimen Anatomical Collection Method / Collection Time Recei donal Time (Source) Location / Volume Laterality Blood STRUCTURE OF RIGHT Venipuncture / 12/11/2021 10:18 04/2022 UPPER LIMB / Unknown AM CDT 10:19 AM CDT Unknown Urbano Price MD LAB - BLOOD ORDERABLES Performing Organization Address City/State/ZIP Code Phon [place] [address] Care Lab [address] Lab (1st floor, no room number) documented in this encounter Visit Diagnoses Diagnosis 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 Chronic pain syndrome Excessive menstruation at puberty Puberty bleeding POTS (postural orthostatic tachycardia s yndrome) Tachycardia, unspecified Fatigue, unspecified type documented in this encounter Care Teams Compo Caster Relationship Specialty Start Date End Date Josh Carrero PCP - General Family Medicine 08/09/[address] [address] Julian Spencer MD Orthopedics 03/08/20 MD Darell [facility] [phone] Julian Spencer Assigned Musculoskeletal 05/27/20 MD Darell Provider [address] [place] [address] Urbano Price Assigned PCP 11/13/20 MD Esteban [facility] [place], [place] 6549[address] Joe Leo MD Physical Medicine and 04/11/21 Rehabilitation [address] 155[address] Joe Leo, Assigned Neuroscience 04/30/21 MD Provider [address] 811865 Douglas Gonzalez MD Pediatrics 05/29/21 MD Julian [address] [place] [address] Douglas Gonzalez Assigned Pediatric 06/04/21 MD Julian Specialist Provider [address] [place] [address] documented as of this encounter
--- OUTSIDE RECORDS SUMMARY | 2022-07-02 21:44 | XMS_ITS | Encounter Summary ---
:2001 Author Organization [place] Address [address] [place] [address]. [place] [address] Care Team Providers Name Role Phone Julian Spencer MD Unavailable Julian Spencer MD Unavailable Josh Carrero Primary Care Provider Urbano Price MD Unavailable Joe Leo MD Unavailable Joe Leo MD Unavailable Douglas Gonzalez MD Unavailable [phone] Douglas Gonzalez MD Unavailable [phone] Encounter Details Date Type Department Care Team Description [facility] [address] [place] [address] 9th Floor [place], [place] [phone] Social History Tobacco Use [...] on filedocumented in this encounter Care Teams Pressroom Supervisor Relationship Specialty Start Date End Date Josh Carrero PCP - General Family Medicine 08/09/[address] [address] Julian Spencer MD Orthopedics 03/08/20 MD Darell [address] [place] [address] Julian Spencer Assigned Musculoskeletal 05/27/20 MD Darell Provider [facility] [place] [address] Urbano Price Assigned PCP 11/13/20 MD Esteban [address] [place] [address] Joe Leo MD Physical Medicine and 04/11/21 MD Rehabilitation [address] [address] Joe Leo, Ade Neuroscience 04/30/21 MD Provider [address] [address] Douglas Gonzalez MD Pediatrics 05/29/21 MD Julian [address] [place] [address] Douglas Gonzalez Assigned Pediatric 06/04/21 MD Julian Specialist Provider [address] [place] [address] documented as of this encounter
--- OUTSIDE RECORDS SUMMARY | 2022-07-02 21:44 | XMS_ITS | Encounter Summary ---
:2001 Author Organization [place] Address [facility] [place] [address] Care Team Providers Name Role Phone Julian Spencer MD Unavailable Julian Spencer MD Unavailable Josh Carrero Primary Care Provider Urbano Price MD Unavailable Joe Leo MD Unavailable Joe Leo MD Unavailable Douglas Gonzalez MD Unavailable [phone] Douglas Gonzalez MD Unavailable [phone] Encounter Details Date Type Department Care Team Description 09/22/2021 Orders Only [facility] Angelic Mariposa At risk fo r hemorrhage associated with surgery (Primary Dx); Services - Christian Sheffield MD Menorrhagia with irregular cycle Specialties Service [facility] [place], [place] [address] [phone] Social History Tobacco Use Types Packs/Day Years Used Date Smoking Tobacco: Never Smokeless Tobacco: Never Alcohol Use Standard Drinks/Week Comments Not Currently 0 (1 standard drink = 0.6 oz pure alcoho l) Sex Assigned at Date Recorded Female 12/02/2020 1:42 PM CDT COVID-19 Exposure Response Date Recorded In the last month, have you been in contact with No / Unsure 08/24/2021 3:05 PM FISHERIES SPECIALIST someone who was confirmed or suspected to have Coronavirus / COVID-19? documented as of this encounter Plan of Treatment Not on filedocumented as of this encounter Visit Diagnoses Diagnosis At risk for hemorrhage associated with s urgery - Primary Menorrhagia with irregular cycle Excessive or frequent menstruation documented in this encounter Care Teams Training Development Director Relationship Specialty Start Date End Date Josh Carrero PCP - General Family Medicine 08/09/[address] [phone] Julian Spencer MD Orthopedics 03/08/20 MD Darell [facility] [place] [address] Julian Spencer Assigned Musculoskeletal 05/27/20 MD Darell Provider [facility] [place] [address] Urbano Price Assigned PCP 11/13/20 MD Esteban [address] [place] [address] Joe Leo MD Physical Medicine and 04/11/21 MD Rehabilitation [address] [place] [address] Joe Leo Assigned Neuroscience 04/30/21 MD Provider [address] 236785 Douglas Gonzalez MD Pediatrics 05/29/21 MD Julian [address] [place] [address] Douglas Gonzalez Assigned Pediatric 06/04/21 MD Julian Specialist Provider [address] [place] [address] [place] [address] documented as of this encounter
--- OUTSIDE RECORDS SUMMARY | 2022-07-02 21:44 | XMS_ITS | Encounter Summary ---
:2001 Author Organization [place] Address [address] [place] [address] Care Team Providers Name Role Phone Julian Spencer MD Unavailable Julian Spencer MD Unavailable Josh Carrero Primary Care Provider Urbano Price MD Unavailable Joe Leo MD Unavailable Joe Leo MD Unavailable Douglas Gonzalez MD Unavailable [phone] Douglas Gonzalez MD Unavailable [phone] Reason for Visit Reason Comments RECHECK F/U Platelet Infusion & Boto x Injection by PMR. Again Discuss Hardware removal. DOS Removal of instrumental for transitional segment vert Encounter Details Date Type Department Care Team Description 08/24/2021 Office Visit [facility] Julian Spencer History of fusion of spine for scoliosis (Primary Dx); Orthopedic Clinic MD Darell Transitional vertebra; [address] Painful orthopaedic hardware (H) [address] [facility] [address] 4th [place] [address] Social History Tobacco Use Types Packs/Day [...] with No / Unsure 08/24/2021 3:05 PM IRRIGATION SPECIALIST someone who was confirmed or suspected [...] removal of Crosslink by Dr. Muro at [place]. Dr. Spencer attempted hardare removal and found [...] and developed the plan. Julian Spencer MD GATION SPECIALIST documented in this encounter Nursing Notes Reyna Chávez LPN - 08/24/2021 2:30 PM CST Reason For Visit: Chief Complaint Patient presents with ??? RECHECK F/U Platelet Infusion & Botox Injection by PMR. Again Discuss Hardware removal. DOS 08/09/20 Removal of instrumental for transitional segment vert Primary MD: Josh Carrero Ref. MD: Est Sample Checker?No Occupation??Student. ?? 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 Painful orthopaedic hardware (H) documented in this encounter Care Teams Silk Screen Frame Assembler Relationship Specialty Start Date End Date Josh Carrero PCP - General Family Medicine 08/09/[address] [address] Julian Spencer MD Orthopedics 03/08/20 MD Darell [address] [place] [address] 299784 Julian Spencer Assigned Musculoskeletal 05/27/20 MD Darell Provider [facility] [place] [address] Urbano Price Assigned PCP 11/13/20 MD Esteban [facility] [place], [place] 206[address] Joe Leo MD Physical Medicine and 04/11/[address] [place] [address] [phone] Joe Leo Assigned Neuroscience 04/30/21 MD Provider [address] [phone] Douglas Gonzalez MD Pediatrics 05/29/21 MD Julian [address] [address] Douglas Gonzalez Assigned Pediatric 06/04/21 MD Julian Specialist Provider [facility] [address] [phone] documented as of this encounter
--- OUTSIDE RECORDS SUMMARY | 2022-07-02 21:44 | XMS_ITS | Encounter Summary ---
:2001 Author Organization [place] Address [address] [place] [address]. [place] [address] Care Team Providers Name Role Phone Julian Spencer MD Unavailable Julian Spencer MD Unavailable Josh Carrero Primary Care Provider Urbano Price MD Unavailable Joe Leo MD Unavailable Joe Leo MD Unavailable Douglas Gonzalez MD Unavailable [phone] Douglas Gonzalez MD Unavailable [phone] Reason for Visit Reason Onset Date Comments Clinic Care Coordination - Follow-up 06/15/2022 Encounter Details Date Type Department Care Team Description 06/15/2022 Telephone [facility] Yolanda Kumar, RN Clini c Care Coordination [facility] Pediatric - Follow-u p Specialty Clinic [address] [place] [address] [address] [place] [address] Social History Tobacco Use Types [...] questions. Message sent to Dr Mariposa Atwood. JACOB PatriciaN, police patrol officerGluten Settling Tender NB- Called mother 06/21 and left VM to either call triage or use My Chart to give us an idea what sort of oral surgery is upcoming and where surgery is to be. Advised [place] so this information would be very helpful for planning and organizing possible platelet transfusion and/or oral regimen post-op FACTURING QUALITY MANAGER documented in this encounter Plan of Treatment Not on filedocumented as of this encounter Visit Diagnoses Not on filedocumented in this encounter Care Teams Audit Mgr Relationship Specialty Start Date End Date Josh Carrero PCP - General Family Medicine 08/09/[address] [address] Julian Spencer MD Orthopedics 03/08/20 MD Darell [address] [place] [address] 227424 Julian Spencer Assigned Musculoskeletal 05/27/20 MD Darell Provider [address] [place] [address] 987364 Urbano Price Assigned PCP 11/13/20 MD Esteban [facility] [place], [place] 8375[address] Joe Leo MD Physical Medicine and 04/11/21 Rehabilitation [address] [address] Joe Leo, Assigned Neuroscience 04/30/21 MD Provider [address] [place] [address] [phone] Douglas Gonzalez MD Pediatrics 05/29/21 MD Julian [address] [place] [address] Douglas Gonzalez Assigned Pediatric 06/04/21 MD Julian Specialist Provider [address] [place] [address] documented as of this encounter
--- OUTSIDE RECORDS SUMMARY | 2022-07-02 21:44 | XMS_ITS | Encounter Summary ---
:2001 Author Organization [place] Address [facility] [place] [address] Care Team Providers Name Role Phone Julian Spencer MD Unavailable Julian Spencer MD Unavailable Josh Carrero Primary Care Provider Urbano Price MD Unavailable Joe Leo MD Unavailable Joe Leo MD Unavailable Douglas Gonzalez MD Unavailable [phone] Douglas Gonzalez MD Unavailable [phone] Encounter Details Date Type Department Care Team Description 10/18/2021 Telephone [facility], [address] [place] [address] [place] [phone] [place] [address] (Wo rk) Social History Tobacco [...] 1:28 PM CDT Called and left a VM to schedule a follow up with yun ascencio documented in this encounter Plan of Treatment Not on filedocumented as of this encounter Visit Diagnoses Not on filedocumented in this encounter Care Teams Ballpoint Pen Cartridge Tester Relationship Specialty Start Date End Date Josh Carrero PCP - General Family Medicine 08/09/[address] [address] Julian Spencer MD Orthopedics 03/08/20 MD Darell [facility] [place] [address] Julian Spencer Assigned Musculoskeletal 05/27/20 MD Darell Provider [facility] [place] [address] Urbano Price Assigned PCP 11/13/20 MD Esteban [facility] [place], [place] 170764 Joe Leo MD Physical Medicine and 04/11/[address] [place] [address] 478435 Joe Leo Assigned Neuroscience 04/30/21 MD Provider [address] 074425 Douglas Gonzalez MD Pediatrics 05/29/21 MD Julian [facility] [address] [address] Douglas Gonzalez Assigned Pediatric 06/04/21 MD Julian Specialist Provider [address] [place] [address] DALIA Villagomez [address] [address] documented as of this encounter
--- OUTSIDE RECORDS SUMMARY | 2022-07-02 21:44 | XMS_ITS | Encounter Summary ---
:2001 Author Organization [place] Address [address] [place] [address] Care Team Providers Name Role Phone Julian Spencer MD Unavailable Julian Spencer MD Unavailable Josh Carrero Primary Care Provider Urbano Price MD Unavailable Joe Leo MD Unavailable Joe Leo MD Unavailable Douglas Gonzalez MD Unavailable [phone] Douglas Gonzalez MD Unavailable [phone] Encounter Details Date Type Department Care Team Description 12/11/[facility]21 [facility] Hospital POTS (postural orthostatic t achycardia syndrome); [address] Fatigue, unspecified type; [place] [address] Chronic pain syndrome; [phone] Platelet disord er (H) Social History Tobacco [...] City/State/ZIP Code Ph[place] [address] Care Lab [address] Lab (1st floor, no room number) [...] and gender (Liset et al., NE, DOI: [id number]/[id number]) Specimen Anatomical Collection Method / Collection Time Recei donal Time (Source) Location / Volume Laterality Blood STRUCTURE OF RIGHT Venipuncture / 12/11/2021 10:18 04/2022 UPPER LIMB / Unknown AM CDT 10:19 AM CDT Unknown Urbano Price MD LAB - BLOOD ORDERABLES Performing Organization Address City/[facility]/[place] [address] Care Lab [address] Lab (1st floor, no room number) [...] LAB - BLOOD ORDERABLES Performing Organization Address [facility]/[place] [address] Care Lab [address] Lab (1st floor, no room number) [...] LAB - BLOOD ORDERABLES Performing Organization Address City/[facility]/[place] [address] Care Lab [address] Lab (1st floor, no room number) [...] City/State/ZIP Code [place] [address] Care Lab [address] Lab (1st floor, no room number) documented in this encounter Visit Diagnoses Diagnosis Excessive menstruation at puberty Puberty bleeding POTS (postural orthostatic tachycardia s yndrome) Tachycardia, unspecified Fatigue, unspecified type Chronic pain syndrome Platelet disorder (H) Qualitative platelet defects documented in this encounter Care Teams Charge Authorizer Relationship Specialty Start Date End Date Josh Carrero PCP - General Family Medicine 08/09/[address] [address] Julian Spencer MD Orthopedics 03/08/20 MD Darell [address] [place] [address] 230464 Julian Spencer Assigned Musculoskeletal 05/27/20 MD Darell Provider [address] [place], [place] [phone] Urbano Price Assigned PCP 11/13/20 MD Esteban 2450 [place], [place] [phone] Joe Leo MD Physical Medicine and 04/11/[address] [place] [address] 297 [place], [place] 473905 Joe Leo, Assigned Neuroscience 04/30/21 MD Provider 420 [facility] 297 [place], [place] 775455 Douglas Gonzalez MD Pediatrics 05/29/21 MD Julian [address] [place] [address] Douglas Gonzalez Assigned Pediatric 06/04/21 MD Julian Specialist Provider [address] [place] [address] documented as of this encounter
--- OUTSIDE RECORDS SUMMARY | 2022-07-02 21:44 | XMS_ITS | Encounter Summary ---
:2001 Author Organization [place] Address [address] [place] [address] Care Team Providers Name Role Phone Julian Spencer MD Unavailable Julian Spencer MD Unavailable Josh Carrero Primary Care Provider Urbano Price MD Unavailable Joe Leo MD Unavailable oJe Leo MD Unavailable Douglas Gonzalez MD Unavailable [phone] Douglas Gonzalez MD Unavailable [phone] Encounter Details Date Type Department Care [...] with No / Unsure 08/24/2021 3:05 PM ART OBJECTS SUPERVISOR someone who was confirmed or suspected to have Coronavirus / COVID-19? documented as of this encounter Plan of Treatment Not on filedocumented as of this encounter Visit Diagnoses Not on filedocumented in this encounter Care Teams Water Conservation Specialist Relationship Specialty Start Date End Date Josh Carrero PCP - General Family Medicine 08/09/[address] [phone] Julian Spencer MD Orthopedics 03/08/20 MD Darell [address] [place] [address] Julian Spencer Assigned Musculoskeletal 05/27/20 MD Darell Provider [address] [place] [address] Urbano Price Assigned PCP 11/13/20 MD Esteban [address] [place] [address] Joe Leo MD Physical Medicine and 04/11/21 MD Rehabilitation [address] [address] Joe Leo, Assigned Neuroscience 04/30/21 MD Provider [address] 124935 Douglas Gonzalez MD Pediatrics 05/29/21 MD Julian [address] [place] [address] 104204 Douglas Gonzalez Assigned Pediatric 06/04/21 MD Julian Specialist Provider [address] [place] [address] 389784 documented as of this encounter
--- OUTSIDE RECORDS SUMMARY | 2022-07-02 21:44 | XMS_ITS | Encounter Summary ---
:2001 Author Organization [place] Address [address] [place] [address] Care Team Providers Name Role Phone Julian Spencer MD Unavailable Julian Spencer MD Unavailable Josh Carrero Primary Care Provider Urbano Price MD Unavailable Joe Leo MD Unavailable Joe Leo MD Unavailable Douglas Gonzalez MD Unavailable [phone] Douglas Gonzalez MD Unavailable [phone] Encounter Details Date Type Department Care Team [...] on filedocumented in this encounter Care Teams Fitness And Wellness Instructor Relationship Specialty Start Date End Date Natty Carreros PCP - General Family Medicine 08/09/[address] [address] Julian Spencer MD Orthopedics 03/08/20 MD Darell [address] [place] [address] Julian Spencer Assigned Musculoskeletal 05/27/20 MD Darell Provider [address] [place] [address] Urbano Price Assigned PCP 11/13/20 MD Esteban [address] [place] [address] Joe Leo MD Physical Medicine and 04/11/21 MD Rehabilitation [address] [address] Joe Leo, Assigned Neuroscience 04/30/21 MD Provider [address] [address] Douglas Gonzalez MD Pediatrics 05/29/21 MD Julian [address] [place] [address] 917434 Douglas Gonzalez Assigned Pediatric 06/04/21 MD Julian Specialist Provider [address] [place] [address] 579284 documented as of this encounter
--- OUTSIDE RECORDS SUMMARY | 2022-07-02 21:44 | XMS_ITS | Encounter Summary ---
:2001 Author Organization [place] Address [address] [place] [address] Care Team Providers Name Role Phone Julian Spencer MD Unavailable Julian Spencer MD Unavailable Josh Carrero Primary Care Provider Urbano Price MD Unavailable Joe Leo MD Unavailable Joe Leo MD Unavailable Douglas Gonzalez MD Unavailable [phone] Douglas Gonzalez MD Unavailable [phone] Encounter Details Date Type Department Care Team [...] with No / Unsure 08/22/2021 2:46 PM NEONATAL NURSE someone who was confirmed or suspected to have Coronavirus / COVID-19? documented as of this encounter Plan of Treatment Not on filedocumented as of this encounter Visit Diagnoses Not on filedocumented in this encounter Care Teams Leaflet Distributor Relationship Specialty Start Date End Date Josh Carrero PCP - General Family Medicine 08/09/[address] [phone] Julian Spencer MD Orthopedics 03/08/20 MD Darell [address] [place] [address] Julian Spencer Assigned Musculoskeletal 05/27/20 MD Darell Provider [address] [place] [address] Urbano Price Assigned PCP 11/13/20 MD Esteban [address] [place] [address] Joe Leo MD Physical Medicine and 04/11/21 MD Rehabilitation [address] [address] Joe Leo, Assigned Neuroscience 04/30/21 MD Provider [address] 918775 Douglas Gonzlaez MD Pediatrics 05/29/21 MD Julian [address] [place] [address] 169944 Douglas Gonzalez Assigned Pediatric 06/04/21 MD Julian Specialist Provider [address] [place] [address] 017184 documented as of this encounter
--- OUTSIDE RECORDS SUMMARY | 2022-07-02 21:44 | XMS_ITS | Encounter Summary ---
:2001 Author Organization [place] Address [address] [place] [address] Care Team Providers Name Role Phone Julian Sepncer MD Unavailable Julian Spencer MD Unavailable Josh Carrero Primary Care Provider Urbano Price MD Unavailable Joe Leo MD Unavailable Joe Leo MD Unavailable Douglas Gonzalez MD Unavailable [phone] Douglas Gonzalez MD Unavailable [phone] Reason for Visit Diagnostic Imaging XR (Routine) - Pending Review Specialty Diagnoses / Procedures Referred By Contact Refer red To Contact Diagnoses S/P spinal surgery Julian Spencer MD Procedures XR Pelvis 1/[address] Views [address] [place], [place] [address] Referral ID Status Reason Start Date Expiration Date Visits V isits Requested Authorized [id number] Pending 08/24/2021 08/24/2022 1 1 Review Encounter Details Date Type Department Care Team Description 08/24/2021 Ancillary Procedure [facility] Julian Phipps S/P spinal surgery Orthopedic Xray MD Darell [place] [address] 909 [facility] [address] 4th [place] [phone] Social History Tobacco Use Types Packs/Day Years Used Date Smoking Tobacco: Never Smokeless Tobacco: Never Alcohol Use Standard Drinks/Week Comments Not Currently 0 (1 standard drink = 0.6 oz pure alcoho l) Sex Assigned at Date Recorded Female 12/02/2020 1:42 PM CDT COVID-19 Exposure Response Date Recorded In the last month, have you been in contact with No / Unsure 08/24/2021 3:05 PM RESIDENT PHYSICIAN IN RADIOLOGY someone who was confirmed or suspected to have Coronavirus / COVID-19? documented as of this encounter Plan of Treatment Not on filedocumented as of this encounter Procedures Procedure Name Priority Date/Time Associated Diagnosis Comme nts XR PELVIS 1/2 VIEWS Routine 08/24/2021 3:24 PM S/P spinal surg holly Results for this RESIDENT PHYSICIAN IN RADIOLOGY procedure are i n the results section. 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 WILNER DREW Narrative 08/24/2021 4:00 PM RESIDENT PHYSICIAN IN RADIOLOGY One view pelvis radiograph(s) 08/24/2021 3:58 PM [...] right iliac bone at the sacroiliac joint. [place]ee[place]e Julian Spencer MD IMG DIAGNOSTIC IMAGING ORDER DANO documented in this encounter Visit Diagnoses Diagnosis S/P spinal surgery Other postprocedural status documented in this encounter Care Teams Diet Assistant Relationship Specialty Start Date End Date Jsoh Carrero PCP - General [facility] Medicine 08/09/[address] [address] Julian Spencer MD Orthopedics 03/08/20 MD Darell [facility] [facility] [place] [address] Julian Spencer Assigned Musculoskeletal 05/27/20 MD Darell Provider [facility] [address] [address] Urbano Price Assigned PCP 11/13/20 MD Esteban 2450 [place] [address] Joe Leo MD Physical Medicine and 04/11/[address] [place] [address] [phone] Joe Leo Assigned Neuroscience 04/30/21 MD Provider [address] [place] [address] [phone] Douglas Gonzalez MD Pediatrics 05/29/21 MD Julian [address] [address] Douglas Gonzalez Assigned Pediatric 06/04/21 MD Julian Specialist Provider [facility] [address] [phone] documented as of this encounter
--- OUTSIDE RECORDS SUMMARY | 2022-07-02 21:45 | XMS_ITS | Encounter Summary ---
:2001 Author Organization [place] Address [address] [place] [address] Care Team Providers Name Role Phone Julian Spencer MD Unavailable Julian Spencer MD Unavailable Josh Carrero Primary Care Provider Urbano Price MD Unavailable Joe Leo MD Unavailable Joe Leo MD Unavailable Douglas Gonzalez MD Unavailable [phone] Douglas Gonzalez MD Unavailable [phone] Reason for Visit Reason Onset Date Comments Refill Request 07/03/2021 Encounter Details Date Type Department Care Team Description [facility] Catalina De La Torre, RN Refill Request Pediatric Specialty Clinic [address] [place] [phone] Social History Tobacco Use Types [...] on filedocumented in this encounter Care Teams Surgical Lead Relationship Specialty Start Date End Date Josh Carrero PCP - General Family Medicine 08/09/[address] [address] Julian Spencer MD Orthopedics 03/08/20 MD Darell [address] [place] [address] Julian Spencer Assigned Musculoskeletal 05/27/20 MD Darell Provider [address] [place] [address] Urbano Price Assigned PCP 11/13/20 MD Esteban [address] [place] [address] Joe Leo MD Physical Medicine and 04/11/21 MD Rehabilitation [address] [address] Joe Leo, Ade Neuroscience 04/30/21 MD Provider [address] [address] Douglas Gonzalez MD Pediatrics 05/29/21 MD Julian [address] [place] [address] Douglas Gonzalez Assigned Pediatric 06/04/21 MD Julian Specialist Provider [address] [place] [address] 733324 documented as of this encounter
--- OUTSIDE RECORDS SUMMARY | 2022-07-02 21:45 | XMS_ITS | Encounter Summary ---
:2001 Author Organization [facility] Address [address] [place] [address]. [place] [address] Care Team Providers Name Role Phone Julian Spencer MD Unavailable Julian Spencer MD Unavailable Josh Carrero Primary Care Provider Urbano Price MD Unavailable Joe Leo MD Unavailable Joe Leo MD Unavailable Douglas Gonzalez MD Unavailable [phone] Douglas Gonzalez MD Unavailable [phone] Reason for Visit Reason Onset Date Comments Appointment 08/17/2021 Encounter Details Date Type Department Care Team Description 08/17/2021 Telephone Pediatric Endocrinol Urbano Agosto MD [facility] [address] [place] [id number] [place] [address] [place], [place] 55[address] [phone] Social History Tobacco Use Types Packs/Day Years Used Date Smoking Tobacco: Never Smokeless Tobacco: Never Alcohol Use Standard Drinks/Week Comments Not Currently 0 (1 standard drink = 0.6 oz pure alcoho l) Sex Assigned at Date Recorded Female 12/02/2020 1:42 PM CDT documented as of this encounter Miscellaneous Notes Telephone Encounter - Maribel Martinez - 08/17/2021 10:14 AM CST LVM regarding appt for 08/22 @ 3:00. w Dr. Price I asked if family would be willing to move appt to 2:30 or 3:30 due to a change in the schedule. Asked for family to please call me back directly at [phone] TECHNICIAN documented in this encounter Plan of Treatment Not on filedocumented as of this encounter Visit Diagnoses Not on filedocumented in this encounter Care Teams Insurance Operations Rep Relationship Specialty Start Date End Date Josh Carrero PCP - General Family Medicine 08/09/[address] [id number] Julian Spencer MD Orthopedics 03/08/20 MD [facility] [place] [id number] Julian Spencer Assigned Musculoskeletal 05/27/20 MD Darell Provider [facility] [place] [id number] Urbano Price Assigned PCP 11/13/20 MD [facility] [place], [place] [id number] Joe Leo MD Physical Medicine and 04/11/[address] [place] [address] [id number] Joe Leo Assigned Neuroscience 04/30/21 MD Provider [address] [id number] Douglas Gonzalez MD Pediatrics 05/29/21 MD [facility] [address] [address] Douglas Gonzalez Assigned Pediatric 06/04/21 MD Julian Specialist Provider [address] [id number] documented as of this encounter
--- OUTSIDE RECORDS SUMMARY | 2022-07-02 21:45 | XMS_ITS | Encounter Summary ---
:2000 Author Organization [place] Address [facility] [place] [address] Care Team Providers Name Role Phone Julian Spencer MD Unavailable Julian Spencer MD Unavailable Josh Carrero Primary Care Provider Urbano Price MD Unavailable Joe Leo MD Unavailable Joe Leo MD Unavailable Douglas Gonzalez MD Unavailable [phone] Douglas Gonzalez MD Unavailable [phone] Reason for Visit Reason Comments RECHECK Pt here for endocrine follow up Encounter Details Date Type Department Care Team Description 08/22/2021 Office Visit [facility] Urbano Price Pseudar throsis following spinal fusion (Primary Dx); Estefany Pediatric MD Esteban Neuromuscular scoliosis of thoracolumbar region; Specialty Clinic [address] [place] [address] S/P spinal fusion; [facility] S History of inhaled steroid therapy; [place], [place] Localized osteoporosis witho ut current pathological fracture 9th Floor [address] [address] [facility] [phone] [place], [place] (Work) [address] [phone] Social History Tobacco Use Types Packs/Day Years Used Date Smoking Tobacco: Never Smokeless Tobacco: Never Alcohol Use Standard Drinks/Week Comments Not Currently 0 (1 standard drink = 0.6 oz pure alcoho l) Sex Assigned at Date Recorded Female 12/02/2020 1:42 PM CDT COVID-19 Exposure Response Date Recorded In the last month, have you been in contact with No / Unsure 08/22/2021 2:46 PM CHEMICAL PROCESSING EQUIPMENT REPAIRER someone who was confirmed or suspected to have Coronavirus / COVID-19? documented as of this encounter Last Filed Vital Signs Vital Sign Reading Time Taken Comments Blood Pressure 109/71 08/22/2021 2:57 PM CHEMICAL PROCESSING EQUIPMENT REPAIRER Pulse 71 08/22/2021 2:57 PM CHEMICAL PROCESSING EQUIPMENT REPAIRER Temperature 36.9 ??C (98.4 ??F) 08/22/2021 2:57 PM CHEMICAL PROCESSING EQUIPMENT REPAIRER Respiratory Rate 16 08/22/2021 2:57 PM CHEMICAL PROCESSING EQUIPMENT REPAIRER Oxygen Saturation 100% 08/22/2021 2:57 PM CHEMICAL PROCESSING EQUIPMENT REPAIRER Inhaled Oxygen Concentration - - Weight 57.6 kg (126 lb 15.8 oz) 08/22/2021 2:57 PM CHEMICAL PROCESSING EQUIPMENT REPAIRER Height 160.9 cm (5' 3.35) 08/22/2021 2:57 PM CHEMICAL PROCESSING EQUIPMENT REPAIRER Body Mass Index 22.25 08/22/2021 2:57 PM CHEMICAL PROCESSING EQUIPMENT REPAIRER documented in this encounter Patient Instructions Patient InstructionsMillerUrbano MD - 08/22/2021 3:00 PM CST Thank you for choosing [facility]. It was a pleasure to see you today. Providers: [place]: MD Ethel Barrera MD Eric Bomberg MD Sandy Chen Liu, MD Bradley Miller MD PhD Pilar Oneill [facility] Care Coordinators (non urgent calls) Mon- Fri: Catalina Tay MS RN [phone] Millicent Pantoja RN, CPN [phone] Public Health Nurse fax: [phone] Growth Hormone: Sharda John CMA [phone] Please leave a message on one line only. Calls will be returned as soon as possible once your physician has reviewed the results or questions. Medication renewal requests must be faxed to the main office by your pharmacy. Allow 3-4 days for completion. Mailing Address: Pediatric Endocrinology Academic Office Building [address] [place] [address] Test results may be available via Qello prior to your provider reviewing them. Your provider will review results as soon as possible once all labs are resulted. Abnormal results will be communicated to you via Neurologixt, telephone call or letter. Please allow 2 -3 weeks for processing/interpretation of most lab work. If you live in the [facility] area and need labs, we request that the labs be done at an [facility] facility. [place] locations are listed on the [email or web address] website. Please call that site for a lab time. For urgent issues that cannot wait until the next business day, call [phone] and ask for the Pediatric Personal Financial Planner division director. Scheduling: Pediatric Call Center: [phone] for [facility] - 3rd floor [facility] Building [facility] 9th floor [facility] [phone] (for stimulation tests) Radiology/ [phone] Splicing Machine Operator Automatic Services: [phone] Please sign up for Qello for easy and HIPAA compliant confidential communication. Sign up at the clinic front counter attendant or go to [email or web address] Patients must be seen in clinic annually to continue to receive prescriptions and test results. Patients on growth hormone must be seen twice yearly. COVID-19 Recommendations: Pediatric Endocrinology The Division of Endocrinology at the [facility]'s [facility] encourages our patients to receive vaccination against the SARS CoV2 virus that causes COVID-19. At this time, the only vaccine approved in children is the Pfizer vaccine for children 12 years or older. If you are12 years or older, we encourage you to receive the first vaccine that is available to you. Please go to [email or web address] to register to receive your vaccine at an [facility] location. Once you are registered, you will be contacted to schedule an appointment when vaccine is available. Please go to [email or web address] to register to receive your vaccine through the [facility]'s Vaccine Connector portal. You will be contacted [...] child tested for COVID-19, please go to [email or web address] for information about [facility] testing locations. Your child has been seen [...] diagnosis. Please refer to the CDC and [facility] of health websites for information regarding precautions surrounding COVID-19. At this time, there is no evidence to suggest that your child's endocrine diagnosis increases risk for sarita COVID-19. This is an ongoing area of research, however,and we will update you as further research becomes available. Instructions: We will await the plan from Dr. Spencer to determine whether to continue parathyroid hormone therapy. ICAL PROCESSING EQUIPMENT REPAIRER documented in this encounter Progress Notes Urbano Price MD - 08/22/2021 3:00 PM CST Pediatric Endocrinology Follow-Up Evaluation Patient: Dakota Casiano Date of : 2000 Age: 21year 0month old Date of Visit: Aug 22, [address] Spencer: I had the pleasure of seeing your patient, Dakota Casiano in the Pediatric Endocrinology Clinic, [facility], on Aug 22, 2021 for follow-up evaluation [...] Medium Added automatically from request for surgery [id number] ??? Painful orthopaedic hardware (H) 07/21/2020 Priority: Medium Added automatically from request for surgery [id number] ??? Neuromuscular scoliosis of thoracolumbar region 05/05/2020 [...] Location: [facility] OR Social History: She attends [employer]. Studying pre[employer]ippo. 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 She [...] ??? naloxone (NARCAN) 4 MG/0.1ML nasal spray [place] 1 spray (4 mg) into one nostril [...] salt pills. She started having it on Bowsaturday. She has had some fainting episodes [...] is necessary unless other endocrine concerns arise. MD Instructions: We will obtain labs evaluating for [...] Comprehensive metabolic panel ??? Osteocalcin ??? C-Telopeptide, [id number] ??? Parathyroid Hormone Intact ??? N-Telopeptide Cross-Linked [...] Urbano Price MD, PhD Professor Pediatric Endocrinology [facility] Vysf-tv-hyvs time by Dr. Price 30 minutes, total [...] Assigned Pediatric Specialist Provider Dakota Casiano [address] [place] [phone] ICAL PROCESSING EQUIPMENT REPAIRER documented in this encounter Nursing Notes Samuel [...] None Samuel Walters, EMT August 22, 2021 ICAL PROCESSING EQUIPMENT REPAIRER documented in this encounter Plan of Treatment Not on filedocumented as of this encounter Procedures Procedure Name Priority Date/Time Associated Diagnosis Comme nts 1,25 DIHYDROXYVITAMIN D Routine 08/22/2021 4:01 Pseudarthrosis Results for this PM CHEMICAL PROCESSING EQUIPMENT REPAIRER following spinal procedure a re in fusion the results Localized section. osteoporosis without current pathological fracture N-TELOPEPTIDE Routine 08/22/2021 4:01 Pseudarthrosis Results f or this CROSS-LINKED SERUM PM CHEMICAL PROCESSING EQUIPMENT REPAIRER following spinal proce dure are in fusion the results Localized section. osteoporosis without current pathological fracture C-TELOPEPTIDE, Routine 08/22/2021 4:01 Pseudarthrosis Results for this [id number] PM CHEMICAL PROCESSING EQUIPMENT REPAIRER following spinal proced ure are in fusion the results Localized section. osteoporosis without current pathological fracture 25 HYDROXYVITAMIN D2 & Routine 08/22/2021 4:01 Pseudarthrosis Results for this D3 PM CHEMICAL PROCESSING EQUIPMENT REPAIRER following spinal procedure a re in fusion the results Localized section. osteoporosis without current pathological fracture OSTEOCALCIN Routine 08/22/2021 4:01 Pseudarthrosis Results fo r this PM CHEMICAL PROCESSING EQUIPMENT REPAIRER following spinal procedure a re in fusion the results Localized section. osteoporosis without current pathological fracture PHOSPHORUS Routine 08/22/2021 4:01 Pseudarthrosis Results fo r this PM CHEMICAL PROCESSING EQUIPMENT REPAIRER following spinal procedure a re in fusion the results Localized section. osteoporosis without current pathological fracture PARATHYROID HORMONE Routine 08/22/2021 4:01 Pseudarthrosis Res ults for this INTACT PM CHEMICAL PROCESSING EQUIPMENT REPAIRER following spinal procedure a re in fusion the results Localized section. osteoporosis without current pathological fracture COMPREHENSIVE METABOLIC Routine 08/22/2021 4:01 Pseudarthrosis Results for this PANEL PM CHEMICAL PROCESSING EQUIPMENT REPAIRER following spinal procedure a re in fusion the results Localized section. osteoporosis without current pathological fracture CALCIUM RANDOM URINE Routine 08/22/2021 4:01 Pseudarthrosis Re sults for this PM CHEMICAL PROCESSING EQUIPMENT REPAIRER following spinal procedure a re in fusion the results Localized section. osteoporosis without current pathological fracture BONE SPECIFIC ALK Routine 08/22/2021 4:01 Pseudarthrosis Resul ts for this PHOSPHATASE PM CHEMICAL PROCESSING EQUIPMENT REPAIRER following spinal procedure a re in fusion the results Localized section. osteoporosis without current pathological fracture documented in this encounter Results N-Telopeptide Cross-Linked Serum (08/22/2021 4:01 PM CHEMICAL PROCESSING EQUIPMENT REPAIRER) athologist Signature N-Telopeptide 19.9 nM BCE 08/26/2021 truedash X-Link 9:12 AM CHEMICAL PROCESSING EQUIPMENT REPAIRER Comment: INTERPRETIVE INFORMATION: N-Telopeptide, Cross-Linked, Serum ??Adult Male.......................5.4 - 24.2 nM BCE ??Premenopausal Adult Female.......6.2 - 19.0 nM BCE The target value for treated post-menopa usal adult females is the same as the premenopausal referen ce interval. BCE = Bone Collagen Equivalent Performed By: [facility] [address] [place] [address] Engineer: Brandi Dooley MD Specimen Anatomical Collection Method / Collection Time Recei donal Time (Source) Location / Volume Laterality Blood STRUCTURE OF LEFT Venipuncture / 08/22/2021 4:01 08/22 4:02 UPPER LIMB / Unknown PM CHEMICAL PROCESSING EQUIPMENT REPAIRER PM CHEMICAL PROCESSING EQUIPMENT REPAIRER Unknown Urbano Price MD LAB - BLOOD ORDERABLES Performing Organization Address City/State/ZIP Code Phon e Number [facility] [place], [place] [phone] [address] [facility] [address] Parathyroid Hormone Intact (08/22/2021 4:01 PM CHEMICAL PROCESSING EQUIPMENT REPAIRER) athologist Signature Parathyroid 38 18 - 80 08/22/2021 [facility] Hormone Intact pg/mL 7:03 PM CHEMICAL PROCESSING EQUIPMENT REPAIRER Specimen Anatomical Collection Method / Collection Time Recei donal Time (Source) Location / Volume Laterality Blood STRUCTURE OF LEFT Venipuncture / 08/22/2021 4:01 08/22 4:02 UPPER LIMB / Unknown PM CHEMICAL PROCESSING EQUIPMENT REPAIRER PM CHEMICAL PROCESSING EQUIPMENT REPAIRER Unknown Urbano Price MD LAB - BLOOD ORDERABLES Performing Organization Address City/State/ZIP Code Phon e Number LABORATORY [facility] [place] [address] Lab [address] [facility] [address] [facility], Room 3-580 C-Telopeptide, Ckjq-Qsrlh-Iucnkv (08/22/2021 4:01 PM CHEMICAL PROCESSING EQUIPMENT REPAIRER) athologist Signature C-Telopept 547 64 - 623 08/25/2021 truedash B-X-Linked pg/mL 7:28 AM CHEMICAL PROCESSING EQUIPMENT REPAIRER Comment: Postmenopausal Females: 104-1008 pg/mL REFERENCE INTERVAL: C-Telopeptide, Beta- Cross-Linked, Serum Access complete set of age- and/or gende r-specific reference intervals for this test in the [facility] Test Directory ([email or web address]). Performed By: [facility] [address] [place] [address] Engineer: Brandi Dooley MD Specimen Anatomical Collection Method / Collection Time Recei donal Time (Source) Location / Volume Laterality Blood STRUCTURE OF LEFT Venipuncture / 08/22/2021 4:01 08/22 4:02 UPPER LIMB / Unknown PM CHEMICAL PROCESSING EQUIPMENT REPAIRER PM CHEMICAL PROCESSING EQUIPMENT REPAIRER Unknown Urbano Price MD LAB - BLOOD ORDERABLES Performing Organization Address City/[facility]/ZIP Code Phon e Number [facility] [place], [place] [phone] [address] [facility] [address] Osteocalcin (08/22/2021 4:01 PM CHEMICAL PROCESSING EQUIPMENT REPAIRER) athologist Signature Osteocalcin by 47 11 - 50 08/25/2021 truedash ECIA ng/mL 7:28 AM CHEMICAL PROCESSING EQUIPMENT REPAIRER Comment: INTERPRETIVE INFORMATION: Osteocalcin by ECIA In patients with renal failure the osteo calcin result can be elevated, both directly, due to impai red clearance and indirectly, due to renal osteodystrophy. Access complete set of age- and/or gende r-specific reference intervals for this test in the [facility] Test Directory ([email or web address]). Performed By: [facility] [address] [place] [address] Engineer: Brandi Dooley MD Specimen Anatomical Collection Method / Collection Time Recei donal Time (Source) Location / Volume Laterality Blood STRUCTURE OF LEFT Venipuncture / 08/22/2021 4:01 08/22 4:02 UPPER LIMB / Unknown PM CHEMICAL PROCESSING EQUIPMENT REPAIRER PM CHEMICAL PROCESSING EQUIPMENT REPAIRER Unknown Urbano Price MD LAB - BLOOD ORDERABLES Performing Organization Address City/State/ZIP Code Phon e Number [facility] [place], [place] [phone] [address] [facility] [address] Comprehensive metabolic panel (08/22/2021 4:01 PM CHEMICAL PROCESSING EQUIPMENT REPAIRER) P athologist Signature Sodium 139 133 - 144 08/22/2021 [facility] mmol/L 4:36 PM CHEMICAL PROCESSING EQUIPMENT REPAIRER LABORATORY Potassium 4.0 3.4 - 5.3 08/22/2021 [facility] mmol/L 4:36 PM CHEMICAL PROCESSING EQUIPMENT REPAIRER LABORATORY Chloride 105 94 - 109 08/22/2021 [facility] mmol/L 4:36 PM CHEMICAL PROCESSING EQUIPMENT REPAIRER LABORATORY Carbon Dioxide 30 20 - 32 08/22/2021 [facility] (CO2) mmol/L 4:36 PM CHEMICAL PROCESSING EQUIPMENT REPAIRER LABORATORY Anion Gap 4 3 - 14 08/22/2021 [facility] mmol/L 4:36 PM CHEMICAL PROCESSING EQUIPMENT REPAIRER LABORATORY Urea Nitrogen 14 7 - 30 08/22/2021 [facility] mg/dL 4:36 PM CHEMICAL PROCESSING EQUIPMENT REPAIRER LABORATORY Creatinine 0.66 0.52 - 08/22/2021 [facility] 1.04 mg/dL 4:36 PM CHEMICAL PROCESSING EQUIPMENT REPAIRER LABORATORY Calcium 8.8 8.5 - 10.1 08/22/2021 [facility] mg/dL 4:36 PM CHEMICAL PROCESSING EQUIPMENT REPAIRER LABORATORY Glucose 74 70 - 99 08/22/2021 [facility] mg/dL 4:36 PM CHEMICAL PROCESSING EQUIPMENT REPAIRER LABORATORY Alkaline 118 40 - 150 08/22/2021 [facility] Phosphatase U/L 4:36 PM CHEMICAL PROCESSING EQUIPMENT REPAIRER LABORATORY AST 18 0 - 45 U/L 08/22/2021 [facility] 4:36 PM CHEMICAL PROCESSING EQUIPMENT REPAIRER LABORATORY ALT 26 0 - 50 U/L 08/22/2021 [facility] 4:36 PM CHEMICAL PROCESSING EQUIPMENT REPAIRER LABORATORY Protein Total 6.9 6.8 - 8.8 08/22/2021 [facility] g/dL 4:36 PM CHEMICAL PROCESSING EQUIPMENT REPAIRER LABORATORY Albumin 3.8 3.4 - 5.0 08/22/2021 [facility] g/dL 4:36 PM CHEMICAL PROCESSING EQUIPMENT REPAIRER LABORATORY Bilirubin Total 0.3 0.2 - 1.3 08/22/2021 [facility] mg/dL 4:36 PM CHEMICAL PROCESSING EQUIPMENT REPAIRER LABORATORY GFR Estimate >90 >60 08/22/2021 [facility] mL/min/1.7 4:36 PM CHEMICAL PROCESSING EQUIPMENT REPAIRER LABORATORY 3m2 Comment: Effective July 25, 2021 eGF Rcr in adults is calculated using the 2020 CKD-EPI creatinine equation which includ es age and gender (Liset et al., NEJ, DOI: 10.1056/KVDNpl1372679) Specimen Anatomical Collection Method / Collection Time Recei donal Time (Source) Location / Volume Laterality Blood STRUCTURE OF LEFT Venipuncture / 08/22/2021 4:01 08/22 4:02 UPPER LIMB / Unknown PM CHEMICAL PROCESSING EQUIPMENT REPAIRER PM CHEMICAL PROCESSING EQUIPMENT REPAIRER Unknown Urbano Price MD LAB - BLOOD ORDERABLES Performing Organization Address City/State/ZIP Code Phon e Number [facility] [place] [phone] [place] [address] [facility] [address] [place] [phone], [place] Phosphorus (08/22/2021 4:01 PM CHEMICAL PROCESSING EQUIPMENT REPAIRER) P athologist Signature Phosphorus 4.4 2.5 - 4.5 08/22/2021 [facility] mg/dL 4:36 PM CHEMICAL PROCESSING EQUIPMENT REPAIRER LABORATORY Specimen Anatomical Collection Method / Collection Time Recei donal Time (Source) Location / Volume Laterality Blood STRUCTURE OF LEFT Venipuncture / 08/22/2021 4:01 08/22 4:02 UPPER LIMB / Unknown PM CHEMICAL PROCESSING EQUIPMENT REPAIRER PM CHEMICAL PROCESSING EQUIPMENT REPAIRER Unknown Urbano Price MD LAB - BLOOD ORDERABLES Performing Organization Address City/State/ZIP Code Phon e Number [facility] [place] [phone] [place] [address] [facility] [address] [place] [address] [phone], [place] Calcium random urine with Creat Ratio (08/22/2021 4:01 PM CHEMICAL PROCESSING EQUIPMENT REPAIRER) athologist Signature Calcium Urine 10.5 mg/dL 08/22/2021 [facility] mg/dL 4:51 PM CHEMICAL PROCESSING EQUIPMENT REPAIRER Calcium Urine 0.18 g/g Cr 08/22/2021 [facility] g/g Cr 4:51 PM CHEMICAL PROCESSING EQUIPMENT REPAIRER Creatinine 58 mg/dL 08/22/2021 [facility] Urine mg/dL 4:51 PM CHEMICAL PROCESSING EQUIPMENT REPAIRER Specimen Anatomical Collection Method Collection Time Receive d Time (Source) Location / / Volume Laterality Urine MID-STREAM URINE Non-blood 08/22/2021 4:01 PM 08/22 4:02 SPECIMEN / Unknown Collection / CHEMICAL PROCESSING EQUIPMENT REPAIRER PM CHEMICAL PROCESSING EQUIPMENT REPAIRER Unknown Narrative [facility] - 08/22/2021 4:51 PM CHEMICAL PROCESSING EQUIPMENT REPAIRER The reference ranges have not been estab lished in random urine for calcium, creatinine and the calcium g/g creatinin e. The results should be integrated into the clinical context for interpretation. Urbano Price MD LAB - URINE ORDERABLES Performing Organization Address City/State/ZIP Code Phon e Number [place] [address] Care Lab [address] [facility], [address] Bone specific alk phosphatase (08/22/2021 4:01 PM CHEMICAL PROCESSING EQUIPMENT REPAIRER) athologist Signature Bone Spec Alk 29.4 ug/L 08/23/2021 [facility] Phosphatase 9:43 PM CHEMICAL PROCESSING EQUIPMENT REPAIRER Comment: INTERPRETIVE INFORMATION: Bone Specific Alkaline Phosphatase [...] specific alk burt phosphatase result. Performed By: [facility] [address] [place] [id number] Engineer: Brandi Dooley MD Specimen Anatomical Collection Method / Collection Time Recei donal Time (Source) Location / Volume Laterality Blood STRUCTURE OF LEFT Venipuncture / 08/22/2021 4:01 08/22 4:02 UPPER LIMB / Unknown PM CHEMICAL PROCESSING EQUIPMENT REPAIRER PM CHEMICAL PROCESSING EQUIPMENT REPAIRER Unknown Urbano Price MD LAB - BLOOD ORDERABLES Performing Organization Address City/State/ZIP Code Phon e Number [facility] [employer] [place], [place] [phone] [address] [facility] [address] 1,25 Dihydroxyvitamin D (08/22/2021 4:01 PM CHEMICAL PROCESSING EQUIPMENT REPAIRER) Patholo gist Method Time Signature 1,25 76.1 19.9 - 08/23/2021 [facility] Dihydroxyvitamin D 79.3 2:31 PM CHEMICAL PROCESSING EQUIPMENT REPAIRER CORE/PROT /END pg/mL O Specimen Anatomical Collection Method / Collection Time Recei donal Time (Source) Location / Volume Laterality Blood STRUCTURE OF LEFT Venipuncture / 08/22/2021 4:01 08/22 4:02 UPPER LIMB / Unknown PM CHEMICAL PROCESSING EQUIPMENT REPAIRER PM CHEMICAL PROCESSING EQUIPMENT REPAIRER Unknown Urbano Price MD LAB - BLOOD ORDERABLES Performing Organization Address City/State/ZIP Code Phon e Number [facility] CORE/PROT/ENDO [facility] [place], [place] [address] Core/Prot/Endo [address] [facility] [address] [facility], Room 3[facility] Vitamin D2 + D3, 25 Hydroxy (08/22/2021 4:01 PM CHEMICAL PROCESSING EQUIPMENT REPAIRER) P athologist Signature 25 [place] Vitamin <5 ug/L 08/24/2021 [facility] D2 8:39 AM CHEMICAL PROCESSING EQUIPMENT REPAIRER DRUG/BGEN 25 [place] Vitamin 66 ug/L 08/24/2021 [facility] D3 8:39 AM CHEMICAL PROCESSING EQUIPMENT REPAIRER DRUG/BGEN 25 [place] Vit D <71 20 - 75 08/24/2021 [facility] Total ug/L 8:39 AM CHEMICAL PROCESSING EQUIPMENT REPAIRER DRUG/BGEN Comment: Season, race, dietary intake, a nd treatment affect the concentration of 12-umbzptp-Wnjoyhd D. Values may decreas e during winter months and increase during summer months. Values 20-29 ug/L may ind icate Vitamin D insufficiency and values <20 ug/L may indicate Vitamin D deficiency. Specimen Anatomical Collection Method / Collection Time Recei donal Time (Source) Location / Volume Laterality Blood STRUCTURE OF LEFT Venipuncture / 08/22/2021 4:01 08/22 4:02 UPPER LIMB / Unknown PM CHEMICAL PROCESSING EQUIPMENT REPAIRER PM CHEMICAL PROCESSING EQUIPMENT REPAIRER Unknown Narrative [facility] DRUG/BGEN - 08/24/2021 8:39 A M CHEMICAL PROCESSING EQUIPMENT REPAIRER This test was developed and its performa nce characteristics determined by the [facility], ??Special Chemistry Laboratory. It has not been cleared or approved by the FDA. The laboratory is regulated under CLIA as qualified to perform high-complexity noah ting. This test is used for clinical purposes. It should not be regarded as i nvestigational or for research. Urbano Price MD LAB - BLOOD ORDERABLES Performing Organization Address City/State/ZIP Code Phon e Number [facility]/BG[facility] Special Drug/[place] [address] [address] [facility] J Building, Room 3-580 documented in this encounter Visit Diagnoses Diagnosis Pseudarthrosis following spinal fusion - Primary Arthrodesis status Neuromuscular scoliosis of thoracolumbar region Other kyphoscoliosis and scoliosis S/P spinal fusion Arthrodesis status History of inhaled steroid therapy Personal history of inhaled steroid ther apy Localized osteoporosis without current p athological fracture documented in this encounter Care Teams Cephalometric Analyst Relationship Specialty Start Date End Date Josh Carrero PCP - General Family Medicine 08/09/20 [place] [id number] Julian Spencer MD Orthopedics 03/08/20 MD Darell [address] [place] [address] [phone] Julian Spencer Assigned Musculoskeletal 05/27/20 MD Darell Provider [address] [place] [address] [phone] Urbano Price Assigned PCP 11/13/20 MD [facility] [address] [facility] [place] [place] [address] Joe Leo MD Physical Medicine and 04/11/[address] [place] [address] [phone] Joe Leo, Ade Neuroscience 04/30/21 MD Provider [address] [place] [phone] Douglas Gonzalez MD Pediatrics 05/29/21 MD Julian [address] [place] [address] [phone] Douglas Gonzalez Assigned Pediatric 06/04/21 MD Julian Specialist Provider [address] [place] [address] [phone] documented as of this encounter
--- OUTSIDE RECORDS SUMMARY | 2022-07-02 21:45 | XMS_ITS | Encounter Summary ---
:2001 Author Organization [place] Address [address] [place] [address] Care Team Providers Name Role Phone Julian Spencer MD Unavailable Julian Spencer MD Unavailable Eugenio Finney MD Unavailable [phone] Josh Carrero Primary Care Provider Urbano Price MD Unavailable Joe Leo MD Unavailable Joe Leo MD Unavailable Reason for Visit Reason Onset Date Comments Refill Request 05/04/2021 Encounter Details Date Type Department Care Team Description 05/04/2021 Refill [facility] Catalina De La Torre RN Refill Request [facility] [address] [place] [address] [phone] Social History Tobacco Use Types [...] fracture documented in this encounter Care Teams Cloth Printer Helper Relationship Specialty Start Date End Date Josh Carrero PCP - General Family Medicine 08/09/[address] [address] Julian Spencer MD Orthopedics 03/08/20 MD Darell [address] [place] [address] [phone] Julian Spencer Assigned Musculoskeletal 05/27/20 MD Darell Provider [address] [place] [address] [id number] Eugenio Finney Assigned Pediatric 06/19/2005/07 MD David Specialist Provider 420 [facility] 96 [place], [place] 001215 Urbano Price Assigned PCP 11/13/20 MD Esteban 2450 [place] [address] Joe Leo MD Physical Medicine and 04/11/21 Rehabilitation 420 [facility] 297 [place], [place] 473965 Joe Leo, Assigned Neuroscience 04/30/21 MD Provider 420 [facility] 297 [place], [place] [phone] documented as of this encounter
--- OUTSIDE RECORDS SUMMARY | 2022-07-02 21:45 | XMS_ITS | Encounter Summary ---
:2001 Author Organization [facility] Address [address] [place] [address] Care Team Providers Name Role Phone Julian Spencer MD Unavailable Julian Spencer MD Unavailable Eugenio Finney MD Unavailable [phone] Josh Carrero Primary Care Provider Urbano Price MD Unavailable Joe Leo MD Unavailable Joe Leo MD Unavailable Reason for Referral Clinically Administered Medications (Routine) - Closed Specialty Diagnoses / Procedures Referred By Contact Refer red To Contact Physical Medicine and Diagnoses Muscle spasm Tethered cord (H) S/P spinal fusion Joe Leo MD [facility] Procedures ZZC BOTULINUM TOXIN A PER 1 UNIT 25 Units ONCE 420 [facility] Rehab [facility] 297 909 [place], [place] 3rd Floor [address] [place] [address] Phone: Fax: Referral ID Status Reason Start Date Expiration Date Visits Requ ested Visits Authorized [id number] Closed 05/15/2021 05/15/2022 100 4 Reason for Visit Reason Comments Botox Clinically Administered Medications (Routine) - Closed Specialty Diagnoses / Procedures Referred By Contact Refer red To Contact Physical Medicine and Diagnoses Muscle spasm Tethered cord (H) S/P spinal fusion Joe Leo MD [facility] Procedures ZZC BOTULINUM TOXIN A PER 1 UNIT 25 Units ONCE 420 [facility] Rehab [facility] 297 [address] [place], [place] [address] [place] [address] Phone: Fax: Referral ID Status Reason Start Date Expiration Date Visits Requ ested Visits Authorized [id number] Closed 05/15/2021 05/15/2022 100 4 Encounter Details Date Type Department Care Team Description 05/15/2021 Office Visit [facility] Joe Leo, Muscle spasm (Primary Dx); Physical Medicine and Tethered cord (H); Rehabilitation Clinic 420 [facility] S/P spinal fusion; [facility] 297 Chronic pain syndrome 909 [place], [place] [address] [place] [address] [phone] [address] (Work) [phone] Social History Tobacco Use Types Packs/Day Years [...] dose documented in this encounter Care Teams Revenue Collector Relationship Specialty Start Date End Date Josh Carrero PCP - General Family Medicine 08/09/[address] [address] Julian Spencer MD Orthopedics 03/08/20 MD Darell [address] [place] [address] [phone] Julian Spencer Assigned Musculoskeletal 05/27/20 MD Darell Provider [address] [place] [address] 862604 Eugenio Finney Assigned Pediatric 06/19/2005/07 0/21 MD David Specialist Provider 420 [facility] 96 [place] [address] Urbano Price Assigned PCP 11/13/20 MD Esteban 2450 [place] [address] Joe Leo MD Physical Medicine and 04/11/21 MD Rehabilitation [address] [place] [address] 297 [place] [address] Joe Leo, Assigned Neuroscience 04/30/21 MD Provider [address] [place] [address] documented as of this encounter
--- OUTSIDE RECORDS SUMMARY | 2022-07-02 21:45 | XMS_ITS | Encounter Summary ---
:2001 Author Organization [place] Address [address] [place] [address] Care Team Providers Name Role Phone Julian Spencer MD Unavailable Julian Spencer MD Unavailable Josh Carrero Primary Care Provider Urbano Price MD Unavailable Joe Leo MD Unavailable Joe Leo MD Unavailable Douglas Gonzalez MD Unavailable [phone] Douglas Gonzalez MD Unavailable [phone] Reason for Referral Diagnostic Imaging XR (Routine) - Pending Review Specialty Diagnoses / Procedures Referred By Contact Refer red To Contact Diagnoses S/P spinal surgery Julian Spencer MD Procedures XR EOS Total Body [address] [place], [place] [address] Referral ID Status Reason Start Date Expiration Date Visits V isits Requested Authorized [id number] Pending 08/18/2021 08/18/2022 1 1 Review COUNSELOR Encounter Details Date Type Department Care Team Description 08/18/2021 [facility] Orth[facility] MD Darell (Primary Dx) [address] [facility] [address] 4[address] [place] [address] Social History Tobacco Use Types Packs/Day [...] XR EOS Total Body (08/24/2021 3:05 PM CAMP COUNSELOR) Anatomical Region Laterality Modality Spine, Lower Extremity Computed Radiogra phy Specimen (Source) Anatomical Location Collection Method / Collectio n Time Received Time / Laterality Volume Impressions 08/24/2021 3:36 PM CAMP COUNSELOR Impression: 1. Stable postoperative changes of spina l fusion instrumentation from T4-L4. The hardware appears intact. 2. Positive global sagittal imbalance. N o global coronal imbalance. 3. Weightbearing axis as detailed above. RAHUL MARTINEZ MD Narrative 08/24/2021 3:36 PM CAMP COUNSELOR Exam: Full body radiographs using EOS History: [...] No substantial global coronal imbalance. Sagittal Vertical Tennyson (A vertical line drawn from the center [...] Non obstructive bowel gas pattern. Procedure Note Gross, Rahul Munoz - 08/24/2021Formatti ng of this note might [...] No substantial global coronal imbalance. Sagittal Vertical Tennyson (A vertical line drawn from the center [...] status documented in this encounter Care Teams Crew Leader Relationship Specialty Start Date End Date Josh Carrero PCP - General [facility] Medicine 08/09/[address] [phone] Julian Spencer MD Orthopedics 03/08/20 MD Darell [address] [place] [address] Julian Spencer Assigned Musculoskeletal 05/27/20 MD Darell Provider [address] [place] [address] Urbano Price Assigned PCP 11/13/20 MD Esteban [facility] [place] [address] Joe Leo MD Physical Medicine and 04/11/21 MD Rehabilitation [address] [place] [address] Joe Leo, Ade Neuroscience 04/30/21 MD Provider [address] [address] Douglas Gonzalez MD Pediatrics 05/29/21 MD Julian [facility] [address] [place] [address] Douglas Gonzalez Assigned Pediatric 06/04/21 MD Julian Specialist Provider [address] [place] [address] [phone] documented as of this encounter
--- OUTSIDE RECORDS SUMMARY | 2022-07-02 21:45 | XMS_ITS | Encounter Summary ---
:2001 Author Organization [facility] Address [address] [place] [address] Care Team Providers Name Role Phone Julian Spencer MD Unavailable Julian Spencer MD Unavailable Josh Carrero Primary Care Provider Urbano Price MD Unavailable Joe Leo MD Unavailable Joe Leo MD Unavailable Douglas Gonzalez MD Unavailable [phone] Douglas Gonzalez MD Unavailable [phone] Reason for Visit Reason Onset Date Comments Refill Request 07/03/2021 Encounter Details Date Type Department Care Team Description [facility] [address] [place] [address], [address] [place] [phone] [place] [address] [place] [phone] Social History Tobacco Use Types Packs/Day Years [...] fracture documented in this encounter Care Teams Conveyor Attendant Relationship Specialty Start Date End Date Josh Carrero PCP - General Family Medicine 08/09/[address] [phone] Julian Spencer MD Orthopedics 03/08/20 MD Darell [address] [place] [address] Julian Spencer Assigned Musculoskeletal 05/27/20 MD Darell Provider [address] [place] [address] Urbano Price Assigned PCP 11/13/20 MD Etseban [address] [place] [address] Joe Leo MD Physical Medicine and 04/11/21 MD Rehabilitation [address] [place] [address] Joe Leo, Ade Neuroscience 04/30/21 MD Provider [address] [place] [address] Douglas Gonzalez MD Pediatrics 05/29/21 MD Julian [address] [place] [address] Douglas Gonzalez Assigned Pediatric 06/04/21 MD Julian Specialist Provider [address] [place] [address] documented as of this encounter
--- OUTSIDE RECORDS SUMMARY | 2022-07-02 21:45 | XMS_ITS | Encounter Summary ---
:2001 Author Organization [facility] Address [address] [place] [address]. [place] [address] Care Team Providers Name Role Phone Julian Spencer MD Unavailable Julian Spencer MD Unavailable Eugenio Finney MD Unavailable [phone] Josh Carrero Primary Care Provider Urbano Price MD Unavailable Joe Leo MD Unavailable Joe Leo MD Unavailable Reason for Visit Reason Onset Date Comments Refill Request 05/03/2021 Encounter Details Date Type Department Care Team Description 05/03/2021 Telephone Pediatric Endocrinol Urbano Agosto, Refill Request [facility] [address] [place], [place] [address] [place] 877570 [place] [address] [place], [place] [phone] (Wo rk) [address] [phone] Social History Tobacco Use Types Packs/Day Years [...] Presription sent as requested. Then resent to [facility] today at mother's request. Catalina Tay RN, MS [facility] Phone Message May a detailed message be left on voicemail: yes Reason for Call: Other: needs a new rx sent over for teriparatide, recombinant, (FORTEO) 600 MCG/2.4ML SOPN injection to [facility] fax [phone] Action Taken: Other: ped endo Travel Screening: Not Applicable documented in this encounter Plan of Treatment Not on filedocumented as of this encounter Visit Diagnoses Not on filedocumented in this encounter Care Teams Contracting Manager Relationship Specialty Start Date End Date oJsh Carrero PCP - General Family Medicine 08/09/[address] [address] Julian Spencer MD Orthopedics 03/08/20 MD Darell [facility] [place] [address] Julian Spencer Assigned Musculoskeletal 05/27/20 MD Darell Provider [address] [facility] [place], [place] 199174 Eugenio Finney Assigned Pediatric 06/19/2005/07 MD David Specialist Provider 420 [facility] 96 [place], [place] 171485 Urbano Price Assigned PCP 11/13/20 MD Esteban [facility] [place] [address] Joe Leo MD Physical Medicine and 04/11/21 MD Rehabilitation [address] [place] [address] Joe Leo Assigned Neuroscience 04/30/21 MD Provider [address] [place] [address] documented as of this encounter
--- OUTSIDE RECORDS SUMMARY | 2022-07-02 21:45 | XMS_ITS | Encounter Summary ---
:2001 Author Organization [place] Address [facility]. [address] Care Team Providers Name Role Phone Julian Spencer MD Unavailable Julian Spencer MD Unavailable Eugenio Finney MD Unavailable [phone] Josh Carrero Primary Care Provider Urbano Price MD Unavailable Joe Leo MD Unavailable Joe Leo MD Unavailable Fernando Rondon MD Unavailable [phone] Reason for Visit Reason Comments RECHECK Follow up Encounter Details Date Type Department Care Team Description 05/29/2021 Office Visit [facility] Fernando Rondon Chron ic pain syndrome (Primary Dx); [facility] MD Julian Neuromuscular scoliosis of thoracolumbar region; Specialty Clinic [address] [place] [address] Chronic musculoskeletal pain ; [address] Back muscle spasm; Floor [place], [place] 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 Fernando Rondon MD, MAEd Grocery Associate of Pediatrics Family Therapist, Pain and Advanced/Complex Care Team (PACCT) [facility] documented in this encounter Progress Notes Fernando [...] function. On a recent family trip to [place], she was not very active throughout the entire vacation (which was unusual). Despite being someone who really does not like to draw attention to herself, she asked to use a wheelchair in the airport. She also asked for assistance during a family trip to the [place] in April. Per her mother's report, she [...] up back. In November, she went to [place], and was not very active (unusual) during this vacation. Askedto use a wheelchair in the airport (this is very unusual). Went to [place] in April. Wakesup screeming with pains in [...] - She really wants to return to [employer]. 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 Psychology: [facility] MA[facility] in [place], [place]. She is going to switch over to a more pain-focused provider KELLY Dc, [facility]. Clinic Information: [facility] [place] ([email or web address]), . Integrative Medicine: n/a Integrative medicine specialist: [...] trazodone 50 mg PO qHS PRN The [place] Prescription Monitoring Program Database has not been [...] in 4 weeks. Fernando Rondon MD, MAEd [employer] Associate of Pediatrics Family Therapist, Pain & Advanced/Complex Care Team (PACCT) [facility] documented in this encounter Nursing Notes Venecia Baker EMT - 05/29/2021 1:00 PM CDT [facility] [[id number]] Chief Complaint Patient presents with ??? RECHECK [...] substance documented in this encounter Care Teams Beauty Culturist Apprentice Relationship Specialty Start Date End Date Josh Carrero PCP - General Family Medicine 08/09/[address] [address] Julian Spencer MD Orthopedics 03/08/20 MD Darell [address] [place] [address] 928954 Julian Spencer Assigned Musculoskeletal 05/27/20 MD Darell Provider [address] [place] [address] Eugenio Finney Assigned Pediatric 06/19/2005/07 MD David Specialist Provider 420 [facility] 96 [place], [place] 4[address] Urbano Price Assigned PCP 11/13/20 MD Esteban 2450 [facility] [place] [address] Joe Leo MD Physical Medicine and 04/11/21 Rehabilitation 420 [facility] 297 [place], [place] 9[address] Joe Leo, Assigned Neuroscience 04/30/21 MD Provider 420 [facility] 297 [place] [address] Fernando Rondon MD Pediatrics 05/29/21 MD Julian 2450 [facility] S [address] [place] [address] documented as of this encounter
--- OUTSIDE RECORDS SUMMARY | 2022-07-02 21:45 | XMS_ITS | Encounter Summary ---
:2001 Author Organization [place] Address [address] [place] [address] Care Team Providers Name Role Phone Julian Spencer MD Unavailable Julian Spencer MD Unavailable Eugenio Finney MD Unavailable [phone] Josh Carrero Primary Care Provider Urbano [...] on filedocumented in this encounter Care Teams Trim Setter Helper Relationship Specialty Start Date End Date Josh Carrero PCP - General Family Medicine 08/09/[address] [address] Julian Spencer MD Orthopedics 03/08/20 MD Darell [address] [place] [address] Julian Spencer Assigned Musculoskeletal 05/27/20 MD Darell Provider [address] [place] [address] Eugenio Finney Assigned Pediatric 06/19/2005/07 MD David Specialist Provider 420 [facility] 96 [place] [address] Urbano Price Assigned PCP 11/13/20 MD Esteban 2450 [place] [address] Joe Leo MD Physical Medicine and 04/11/21 MD Rehabilitation 420 [facility] 297 [place] [address] documented as of this encounter
--- OUTSIDE RECORDS SUMMARY | 2022-07-02 21:45 | XMS_ITS | Encounter Summary ---
:2001 Author Organization [place] Address [address] [place] [address]. [place] [address] Care Team Providers Name Role Phone Julian Spencer MD Unavailable Julian pSencer MD Unavailable Eugenio Finney MD Unavailable [phone] Josh Carrero Primary Care Provider Urbano Price MD Unavailable oJe Leo MD Unavailable Joe Leo MD Unavailable Reason for Visit Reason Comments Blood Transfusion platelets Encounter Details Date Type Department Care Team Description 05/15/2021 Infusion Therapy [facility]osa Atwood elenikki disorder (H) (Primary Dx); Visit [facility] Dixon Sheffield MD Localized osteoporosis without current p athological fracture; Specialty Clinic [address] [place] [address] Pseudarthrosis following spi nal fusion [place], [place] 9th Floor [address] [place] [address] [place], [place] (Work) [address] Social History Tobacco Use [...] Infusion Nursing Note Dakota Casiano Presents to [facility] infusion center today for: Platelet transfusion Due to : [...] verbalized understanding of discharge instructions. Pt left [facility] in stable condition. documented in this encounter Miscellaneous Notes Provider Notification - Janessa Christie CCLS - 05/15/2021 8:30 AM CDT 05/15/21 0948 Child Life Location Infusion Center (Platelets) Intervention Supportive Check In;Family Support;Preparation (Re-introduced self and child life services to pt and pt's mother. Pt already had IV placed prior tothis selling underwriter's arrival. Pt shared she terell well with pokes. Oriented family to [facility] clinic and offered pt age appropriate activities to normalize the environment. Pt chose to do adult coloring and st icker by number today. Pt also brought school work to do during visit. Pt social and engaged with this selling underwriter, appearing age appropriate in conversation.) Preparation Comment Pt's mother shared pt will be receiving her first botox spine [place]. Pt shared she will be using LMX. This selling underwriter encouraged pt to engage in distraction and deep breathing during injections. Pt appeared to have low anxiety duing conversation about injections Family Support Comment Pt's mother present and supportive Anxiety Low Anxiety Techniques to [place] with Loss/Stress/Change diversional activity;family presence Outcomes/Follow Up [...] 05/15/2021 9:11 Localized Results fo r this JDMY-IPSAI-INDRXD AM CDT osteoporosis procedure are in without [...] athologist Signature N-Telopeptide 17.2 nM BCE 05/18/2021 [facility] X-Link 9:03 AM CDT Comment: INTERPRETIVE [...] - 05/18/2021 9:03 AM CDT Performed By: [facility] [address] [place] [address] Talent Acquisition Lead: Brandi Dooley MD Mariposa Atwood MD LAB - BLOOD ORDERABLES Performing Organization Address City/[facility] Phon e Number [employer] [place], [place] [phone] [address] [facility] [address] Calcium random urine with Creat Ratio (05/15/2021 [...] LAB - URINE ORDERABLES Performing Organization Address City/[facility] Phon e Number [facility] [place] [address] [place] [address] [facility] [address] [place] [address] [phone], [place] C-Telopeptide, Egcs-Vfnyd-Oqoznr (05/15/2021 9:11 AM CDT) athologist Signature C-Telopept 398 64 - 640 05/17/2021 [facility] B-X-Linked pg/mL 4:26 PM CDT Comment: REFERENCE INTERVAL: C-Telopeptide, Beta- Cross-Linked, Serum Access complete set of age- and/or gende r-specific reference intervals for this test in the [facility] Test Directory ([facility]). Specimen Anatomical Collection Method / Collection Time Recei donal Time (Source) Location / Volume Laterality Blood BLOOD SPECIMEN / Venipuncture / 05/15/2021 9:11 2020 9:25 Unknown Unknown AM CDT AM CDT Narrative [facility] - 05/17/2021 4:26 PM CDT Postmenopausal Females: 104-1008 pg/mL Performed By: [facility] [address] [place] [address] Talent Acquisition Lead: Brandi Dooley MD Urbano Price MD LAB - BLOOD ORDERABLES Performing Organization Address City/State/ZIP Code Phon e Number [facility] [employer] [place], [place] [phone] 500 [facility] [address] Comprehensive metabolic panel (05/15/2021 9:11 AM CDT) athologist Signature Sodium 138 133 - 144 [...] Number [facility] [place] [address] [facility] [place] [address] Bone specific alk phosphatase (05/15/2021 9:11 AM [...] Unknown Unknown AM CDT AM CDT Narrative [facility] - 05/16/2021 3:39 PM CDT INTERPRETIVE INFORMATION: Bone Specific Alkaline Phosphatase ??Premenopausal Female: ?4.5 - 16.9 ug/L ??Postmenopausal Female: ?? 7.0 - 22.4 ug/L Performed By: [facility] [address] [place] [address] Talent Acquisition Lead: Brandi Dooley MD Urbano Price MD LAB - BLOOD ORDERABLES Performing Organization Address [facility] Phon e Number [employer] [place], [place] [phone] [place] [phone] Osteocalcin (05/15/2021 9:11 AM CDT) athologist Signature Osteocalcin by 27 50 05/17/2021 [facility] ECIA ng/mL 4:26 PM CDT Comment: INTERPRETIVE INFORMATION: Osteocalcin by ECIA In patients with renal failure the osteo calcin result can be elevated, both directly, due to impai red clearance and indirectly, due to renal osteodystrophy. Access complete set of age- and/or gende r-specific reference intervals for this test in the [facility] Test Directory ([facility]). Specimen Anatomical Collection Method / Collection Time Recei donal Time (Source) Location / Volume Laterality Blood BLOOD SPECIMEN / Venipuncture / 05/15/2021 9:11 2020 9:25 Unknown Unknown AM CDT AM CDT Narrative [facility] - 05/17/2021 4:26 PM CDT Performed By: [facility] [address] [place] [address] Talent Acquisition Lead: Brandi Dooley MD Urbano Price MD LAB - BLOOD ORDERABLES Performing Organization Address [facility]/ZIP Code Phon e Number [facility] [place], [place] [phone] [address] [facility] [address] Parathyroid Hormone Intact (05/15/2021 9:11 AM CDT) [...] Address City/State/ZIP Code [place] [address] [place] [address], Room 3-[address] [place] [address], [facility] 500 [facility], Room 3580 1,25 Dihydroxyvitamin D (05/15/2021 9:11 AM CDT) [facility] gist Method Time Signature 1,25 42.4 19.9 - 05/17/2021 [facility] Dihydroxyvitamin D 79.3 3:31 PM CDT SPECIALTY pg/mL CORE Specimen Anatomical Collection Method / Collection Time Recei donal Time (Source) Location / Volume Laterality Blood BLOOD SPECIMEN / Venipuncture / 05/15/2021 9:11 2020 9:25 Unknown Unknown AM CDT AM CDT Urbano Price MD LAB - BLOOD ORDERABLES Performing Organization Address City/State/ZIP [place] [address] CORE/PROT/ENDO Core/Prot/Endo [address] [facility] Building, Room 3-580 [facility] [place] Lab [address], [facility], Room L271-5 Vitamin D2 + D3, 25 Hydroxy (05/15/2021 9:11 AM CDT) P athologist Signature 25 OH Vitamin <5 ug/L 05/16/2021 [facility] D2 3:18 PM CDT SPECIAL CHEM 25 OH Vitamin 38 ug/L 05/16/2021 [facility] D3 3:18 PM CDT SPECIAL CHEM 25 OH Vit D <43 20 - 75 05/16/2021 [facility] Total ug/L 3:18 PM CDT SPECIAL CHEM Comment: Season, race, dietary intake, a nd treatment affect the concentration of 27-paqazmr-Jafdifp D. Values may decreas e during winter [...] Unknown AM CDT AM CDT Narrative [facility] SPECIAL CHEM - 05/16/2021 3:18 P M CDT This test was developed and its performa nce characteristics determined by the [facility], ??Special Chemistry Laboratory. It has not been cleared or approved by the FDA. The laboratory is regulated under CLIA as qualified to perform high-complexity noah ting. This test is used for clinical purposes. It should not be regarded as i nvestigational or for research. Urbano Price MD LAB - BLOOD ORDERABLES Performing Organization Address City/State/ZIP Code Phon e Number SPECIAL DRUG/[facility]/[place] [address] 500 [facility] [address] Building, Room 3-580 [facility] [place] [place] [address], CHEMISTRY [place] [address] [place] Building, Room [address]223 Adult Type and Screen (05/15/2021 9:00 AM CDT) Patholo gist Method Time Signature ABO/RH(D) O POS 05/15/2021 UR BLOOD 8:45 AM CDT BANK Antibody Negative Negative 05/15/2021 UR BLOOD Screen 8:45 AM CDT BANK SPECIMEN [id number] 05/15/2021 UR BLOOD EXPIRATION 8:45 AM CDT BANK DATE Specimen Anatomical Collection Method / Collection Time Recei donal Time (Source) Location / Volume Laterality Blood BLOOD SPECIMEN / Venipuncture / 05/15/2021 9:00 2020 9:23 Unknown Unknown AM CDT AM CDT Estee Cox NP LAB - BLOOD BANK TEST ORDER Performing Organization Address City/State/ZIP Code Phon e Number UR BLOOD BANK [facility] [place] [address] Components Lab [address] [facility], Room M301 Prepare pheresed platelets (unit) (05/13/2021 11:00 AM CDT) [facility] gist Method Time Signature UNIT ABO/RH O Pos UR BLOOD BANK Unit Number [id number] UR BLOOD BANK Unit Status Transfused UR BLOOD BANK Blood Platelets UR BLOOD Component BANK Type Product Code [id number] UR BLOOD BANK CODING SYSTEM [id number] UR BLOOD BANK UNIT TYPE 5100 UR BLOOD ISBT BANK ISSUE DATE [id number] UR BLOOD AND TIME BANK Specimen (Source) Anatomical Collection Method Collection Time Re ceived Time Location / / Volume Laterality 05/13/2021 11:00 AM CDT Provider Unknown BLOOD BANK PRODUCT ORDERABLE S Performing Organization Address City/[facility]/ZIP Code Phon e Number UR BLOOD BANK [facility] [place] [address] Components Lab [facility], Room M301 documented in this encounter Visit Diagnoses Diagnosis 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 Localized osteoporosis without current p athological fracture Pseudarthrosis following spinal fusion Arthrodesis status documented in this encounter Care Teams Export Freight Specialist Relationship Specialty Start Date End Date Josh Carrero PCP - General Family Medicine 08/09/[address] [address] Jluian Spencer MD Orthopedics 03/08/20 MD Darell [address] [place] [address] Julian Spencer Assigned Musculoskeletal 05/27/20 MD Darell Provider [address] [place], [place] [address] Eugenio Finney Assigned Pediatric 06/19/2005/07 MD David Specialist Provider 420 [facility] 96 [place], [place] [id number] Urbano Price Assigned PCP 11/13/20 MD Esteban [facility] [place], [place] [phone] Joe Leo MD Physical Medicine and 04/11/21 MD Rehabilitation [address] [place] [address] 297 [place] [address] Joe Leo, Assigned Neuroscience 04/30/21 MD Provider 420 [facility] 297 [place], [place] [address] documented as of this encounter
--- OUTSIDE RECORDS SUMMARY | 2022-07-02 21:45 | XMS_ITS | Encounter Summary ---
:2001 Author Organization [place] Address [facility] [place] [address] Care Team Providers Name Role Phone Julian Spencer MD Unavailable Julian Spencer MD Unavailable Eugenio Finney MD Unavailable [phone] Josh Carrero Primary Care Provider Urbano Price MD Unavailable Joe Leo MD Unavailable Joe Leo MD Unavailable Encounter Details Date Type Department Care Team Description 05/12/2021 Orders Only [facility] Medical [facility] [address] Devon Sheffield Service Line [facility]0 [address] [address] [place] [address] [phone] Social History Tobacco Use Types Packs/Day Years [...] filedocumented in this encounter Care Teams Restorative Aide Relationship Specialty Start Date End Date Josh Carrero PCP - General Family Medicine 08/09/[address] [address] Julian Spencer MD Orthopedics 03/08/20 MD Darell [address] [place] [address]774 Julian Spencer Assigned Musculoskeletal 05/27/20 MD Darell Provider [address] [place] [address] Eugenio Finney Assigned Pediatric 06/19/2005/07 MD David Specialist Provider [address] [place] [address] 96 [place], [place] [address] Urbano Price Assigned PCP 11/13/20 MD Esteban 2450 [place], [place] [address] Joe Leo MD Physical Medicine and 04/11/[address] [place] [address] 297 [place] [address] Joe Leo, Ade Neuroscience 04/30/21 MD Provider 420 [facility] 297 [place] [address] documented as of this encounter
--- OUTSIDE RECORDS SUMMARY | 2022-07-02 21:45 | XMS_ITS | Encounter Summary ---
:2001 Author Organization [place] Address [address] [place] [address]. [place] [address] Care Team Providers Name Role Phone Julian Spencer MD Unavailable Julian Spencer MD Unavailable Josh Carrero Primary Care Provider Urbano Price MD Unavailable Joe Leo MD Unavailable Joe Leo MD Unavailable Douglas Gonzalez MD Unavailable [phone] Douglas Gonzalez MD Unavailable [phone] Reason for Referral [facility] (Routine) - Closed Specialty Diagnoses / Procedures Referred By Contact Refer red To Contact Diagnoses Muscle spasm of back Reta Escalante PA-C [address] [place] [phone] Referral ID Status Reason Start Date Expiration Date Visits Requ ested Visits Authorized [id number] Closed 06/22/2021 06/22/2022 1 1 NE COMPRESSOR OPERATOR Encounter Details Date Type Department Care Team Description 06/22/2021 Orders Only [facility] Reta Escalante PA-C Muscle spasm of back [facility] [address] [place] [address] (Primary Dx) [place], [place] 866 [facility] [address] 4th [place] [address] Social History Tobacco Use Types [...] back documented in this encounter Care Teams Mine Captain Relationship Specialty Start Date End Date Josh Carrero PCP - General [facility] Medicine 08/09/[address] [address] Julian Spencer MD Orthopedics 03/08/20 MD Darell [facility] [address] [address] Julian Spencer Assigned Musculoskeletal 05/27/20 MD Darell Provider [address] [phone] Urbano Price Assigned PCP 11/13/20 MD Esteban [facility] [place] [address] Joe Leo MD Physical Medicine and 04/11/[address] [place] [address] 297 [place] [address] Joe Leo, Assigned Neuroscience 04/30/21 MD Provider 420 [facility] 297 [place] [address] Douglas Gonzalez MD Pediatrics 05/29/21 MD Julian [address] [place] [address] Douglas Gonzalez Assigned Pediatric 06/04/21 MD Julian Specialist Provider [address] [place] [address] documented as of this encounter
--- OUTSIDE RECORDS SUMMARY | 2022-07-02 21:45 | XMS_ITS | Encounter Summary ---
:2001 Author Organization [place] Address [address] [place] [address] Care Team Providers Name Role Phone Julian Spencer MD Unavailable Julian Spencer MD Unavailable Josh Carrero Primary Care Provider Urbano Price MD Unavailable Joe Leo MD Unavailable Joe Leo MD Unavailable Douglas Gonzalez MD Unavailable [phone] Douglas Gonzalez MD Unavailable [phone] Reason for Visit Reason Onset Date Comments Refill Request 07/03/2021 Encounter Details Date Type Department Care Team Description 07/03/2021 [facility] Discovery Catalina De La Torre, RN Refill Request Pediatric Specialty Clinic [address] [place] [phone] Social History Tobacco Use Types [...] with No / Unsure 07/04/2021 2:47 PM BENZENE STILL UTILITY OPERATOR someone who was confirmed or suspected to have Coronavirus / COVID-19? documented as of this encounter Miscellaneous Notes Telephone Encounter - Catalina Tay RN - 07/03/2021 2:39 PM CST Correcting to Brayden Price as prescriber ENE STILL UTILITY OPERATOR documented in this encounter Plan of Treatment Not on filedocumented as of this encounter Visit Diagnoses Diagnosis Pseudarthrosis following spinal fusion Arthrodesis status Localized osteoporosis without current p athological fracture documented in this encounter Care Teams Cushion Filler Relationship Specialty Start Date End Date Josh Carrero PCP - General Family Medicine 08/09/[address] [id number] Julian Spencer MD Orthopedics 03/08/20 MD aDrell [facility] [place] [address] Julian Spencer Assigned Musculoskeletal 05/27/20 MD Darell Provider [facility] [place] [address] Urbano Price Assigned PCP 11/13/20 MD Esteban [facility] [place] [address] Joe Leo MD Physical Medicine and 04/11/[address] Rehabilitation [address] 9[address] Joe Leo Assigned Neuroscience 04/30/21 MD Provider [address] 676265 Douglas Gonzalez MD Pediatrics 05/29/21 MD Julian [facility] [address] [address] Douglas Gonzalez Assigned Pediatric 06/04/21 MD Julian Specialist Provider [address] [facility] [address] [place] [address] documented as of this encounter
--- OUTSIDE RECORDS SUMMARY | 2022-07-02 21:45 | XMS_ITS | Encounter Summary ---
:2001 Author Organization [place] Address [address] [place] [address]. [place] [address] Care Team Providers Name Role Phone Julian Spencer MD Unavailable Julian Spencer MD Unavailable Josh Carrero Primary Care Provider Urbano Price MD Unavailable Joe Leo MD Unavailable Joe Leo MD Unavailable Douglas Gonzalez MD Unavailable [phone] Douglas Gonzalez MD Unavailable [phone] Reason for Visit Reason Onset Date Comments Appointment 08/08/2021 Encounter Details Date Type Department Care Team Description 08/08/2021 Telephone Pediatric Endocrinol Urbano Agosto MD Appointment [facility] [address] [place] [address] [place] [address] [place], [place] [phone] Social History Tobacco Use Types Packs/Day Years Used Date Smoking Tobacco: Never Smokeless Tobacco: Never Alcohol Use Standard Drinks/Week Comments Not Currently 0 (1 standard drink = 0.6 oz pure alcoho l) Sex Assigned at Date Recorded Female 12/02/2020 1:42 PM CDT documented as of this encounter Miscellaneous Notes Telephone Encounter - [place] hernandez - 08/08/2021 1:12 PM CST Per [email or web address] message, gave follow up call to re-schedule appt cancelled for today w/ Dr. Price in the [facility] clinic. Provided [facility] scheduling # and asked to please call back to re- schedule. EILLANCE DIRECTOR documented in this encounter Plan of Treatment Not on filedocumented as of this encounter Visit Diagnoses Not on filedocumented in this encounter Care Teams Fabrication And Assembly Supervisor Relationship Specialty Start Date End Date Josh Carrero PCP - General Family Medicine 08/09/[address] [address] Julian Spencer MD Orthopedics 03/08/20 MD Darell [facility] [place] [address] Julian Spencer Assigned Musculoskeletal 05/27/20 MD Darell Provider [facility] [place] [address] Urbano Price Assigned PCP 11/13/20 MD Esteban [facility]0 [place] [address] Joe Leo MD Physical Medicine and 04/11/21 MD Rehabilitation [address] [place] [address] Joe Leo, Ade Neuroscience 04/30/21 MD Provider [address] [address] Douglas Gonzalez MD Pediatrics 05/29/21 MD Julian [facility] [address] [address] Douglas Gonzalez Assigned Pediatric 06/04/21 MD Julian Specialist Provider [address] [place] [address] documented as of this encounter
--- OUTSIDE RECORDS SUMMARY | 2022-07-02 21:45 | XMS_ITS | Encounter Summary ---
:2001 Author Organization [place] Address [address] [place] [address]. [place] [address] Care Team Providers Name Role Phone Julian Spencer MD Unavailable Julian Spencer MD Unavailable Josh Carrero Primary Care Provider Urbano Price MD Unavailable Joe Leo MD Unavailable Joe Leo MD Unavailable Douglas Gonzalez MD Unavailable [phone] Douglas Gonzalez MD Unavailable [phone] Reason for Visit Rehab Therapy Physical Therapy (Routine) - Closed Specialty Diagnoses / Procedures Referred By Contact Refer red To Contact Diagnoses History of fusion of spine for scoliosis Muscle spasm of back Julian Spencer MD [facility] Sports [address] & Physical Therapy - [place], [place] [address] [place] [address] [place] [place] Uri[place] 20 [place] [phone] Phone: Fax: Referral ID Status Reason Start Date Expiration Date Visits Requ ested Visits Authorized [id number] Closed 12/05/2020 12/03/2021 10 10 Encounter Details Date Type Department Care Team Description 07/04/2021 [facility] [address] [place], [place] [address] Muscle spasm [place] [address] [place], [place] [id number] back [place] [address] [place] [address] Social History Tobacco Use Types Packs/Day [...] with No / Unsure 07/04/2021 2:47 PM INSURANCE MARKETING REP someone who was confirmed or suspected to have Coronavirus / COVID-19? documented as of this encounter Progress Notes Hakan Robert, PT - 07/04/2021 2:40 PM CST PROGRESS REPORT Progress reporting period is from eval to 07/04/21. SUBJECTIVE Subjective changes noted by patient: . Subjective: Pt returns to therapy with new orders for strengthening to prepare her for playing [employer] for [employer]. She reports tolerating HEP well. Her c/c [...] and time spent performing 1:1 timed codes. RANCE MARKETING REP Robert Mcclendon, PT - 07/04/2021 2:40 PM CST Images from the original note were not included. [facility] OUTPATIENT Physical Therapy ORTHOPEDIC EVALUATION PLAN OF TREATMENT FOR OUTPATIENT REHABILITATION (COMPLETE FOR INITIAL CLAIMS ONLY) Patient's Last Name, First Name, M.I. Date of : 2000 Dakota Casiano George Provider???s Name: [facility] Start of Care Date: 07/04/21 Onset Date: [...] Assessment See Epic Evaluation SOC Date: 07/04/21 RANCE MARKETING REP Associated attestation - Reta Escalante PA-C - 07/04/2021 4:45 PM INSURANCE MARKETING REP Physician Attestation I agree with the information in this note. Reta Escalante documented in this encounter Plan of Treatment Not on filedocumented as of this encounter Procedures Procedure Name Priority Date/Time Associated Diagnosis Comme nts AR THERAPEUTIC Routine 07/04/2021 3:58 PM INSURANCE MARKETING REP Muscle spasm of back EXERCISES. EA 15 MIN documented in this encounter Visit Diagnoses Diagnosis Muscle spasm of back Other symptoms referable to back documented in this encounter Care Teams Ordnance Mechanic Relationship Specialty Start Date End Date Josh Carrero PCP - General Family Medicine 08/09/[address] [address] Julian Spencer MD Orthopedics 03/08/20 MD Darell [address] [place] [address] Julian Spencer Assigned Musculoskeletal 05/27/20 MD Darell Provider [address] [place], [place] [address] [place] [address] Urbano Price Assigned PCP 11/13/20 MD Esteban 2450 [facility] [place], [place] 9[address] Joe Leo MD Physical Medicine and 04/11/[address] [place] [address] 297 [place], [place] 777825 Joe Leo Assigned Neuroscience 04/30/21 MD Provider 420 [facility] 297 [place], [place] 760025 Douglas Gonzalez MD Pediatrics 05/29/21 MD Julian [facility] [address] [phone] Douglas Gonzalez Assigned Pediatric 06/04/21 MD Julian Specialist Provider [address] [place] [address] [id number] documented as of this encounter
--- OUTSIDE RECORDS SUMMARY | 2022-07-02 21:45 | XMS_ITS | Encounter Summary ---
:2000 Author Organization [place] Address [address] [place] [address] Care Team Providers Name Role Phone Julian Spencer MD Unavailable Julian Spencer MD Unavailable Eugenio Finney MD Unavailable [phone] Josh Carrero Primary Care Provider Urbano Price MD Unavailable Joe Leo MD Unavailable Joe Leo MD Unavailable Reason for Visit Reason Onset Date Comments Refill Request 05/09/2021 Encounter Details Date Type Department Care Team Description 05/09/2021 Refill [facility] Discovery Catalina De La Torre, RUTH Refill Request [facility] [address] [place] [phone] Social History Tobacco Use Types [...] fracture documented in this encounter Care Teams Master Control Supervisor Relationship Specialty Start Date End Date Josh Carrero PCP - General Family Medicine 08/09/[address] [phone] Julian Spencer MD Orthopedics 03/08/20 MD Darell [address] [place] [address]324 Julian Spencer Assigned Musculoskeletal 05/27/20 MD Darell Provider [address] [place] [address] 707864 Eugenio Finney Assigned Pediatric 06/19/2005/07 MD Davdi Specialist Provider 420 [facility] 96 [place], [place] [address] Urbano Price Assigned PCP 11/13/20 MD Esteban 2450 [place] [address] Joe Leo MD Physical Medicine and 04/11/21 MD Rehabilitation 420 [facility] 297 [place], [place] 788725 Joe Leo, Assigned Neuroscience 04/30/21 MD Provider 420 [facility] 297 [place], [place] [phone] documented as of this encounter
--- OUTSIDE RECORDS SUMMARY | 2022-07-02 21:45 | XMS_ITS | Encounter Summary ---
:2001 Author Organization [place] Address [address] [place] [address] Care Team Providers Name Role Phone Julian Spencer MD Unavailable Julian Spencer MD Unavailable Eugenio Finney MD Unavailable [phone] Josh Carrero Primary Care Provider Urbano Price [...] on filedocumented in this encounter Care Teams Procurement Inspector Relationship Specialty Start Date End Date Josh Carrero PCP - General Family Medicine 08/09/[address] [address] Julian Spencer MD Orthopedics 03/08/20 MD Darell [address] [phone] Julian Spencer Assigned Musculoskeletal 05/27/20 MD Darell Provider [address] [place], [place] [phone] Eugenio Finney Assigned Pediatric 06/19/2005/07 MD David Specialist Provider [address] [place] [address] 96 [place], [place] [phone] Urbano Price Assigned PCP 11/13/20 MD Esteban 2450 [place], [place] [phone] Joe Leo MD Physical Medicine and 04/11/21 MD Rehabilitation [address] [place] [address] 297 [place], [place] [phone] Joe Leo, Assigned Neuroscience 04/30/21 MD Provider 420 [facility] 297 [place], [place] [address] documented as of this encounter
--- OUTSIDE RECORDS SUMMARY | 2022-07-02 21:45 | XMS_ITS | Encounter Summary ---
:2001 Author Organization [place] Address [address] [place] [address]. [place] [address] Care Team Providers Name Role Phone Julian Spencer MD Unavailable Julian Spencer MD Unavailable Eugenio Finney MD Unavailable [phone] Josh Carrero Primary Care Provider Urbano Price MD Unavailable Joe Leo MD Unavailable Joe Leo MD Unavailable Douglas Gonzalez MD Unavailable [phone] Douglas Gonzalez MD Unavailable [phone] Reason for Visit Rehab Therapy Physical Therapy (Routine) - Closed Specialty Diagnoses / Procedures Referred By Contact Refer red To Contact Diagnoses History of fusion of spine for scoliosis Muscle spasm of back Julian Spencer MD [facility] Sports [address] & Physical Therapy - [place], [place] [address] [place] [address] [place] Maria E Adonay 20 [place], [place] [address] Phone: Fax: Referral ID Status Reason Start Date Expiration Date Visits Requ ested Visits Authorized [id number] Closed 12/05/2020 12/03/2021 10 10 Encounter Details Date Type Department Care Team Description 04/27/2021 Therapy Visit [facility] Mcclendon, Aftercare following surgery of the musculoskeletal system (Primary Dx); Rehabilitation Robert, PT Chronic right-sided low back pain withou t sciatica Services [place] [address] [place] [address] Knottarnie Pinto, [place] [address] [phone] Social History Tobacco Use Types Packs/Day Years Used Date Smoking Tobacco: Never Smokeless Tobacco: Never Alcohol Use Standard Drinks/Week Comments Not Currently 0 (1 standard drink = 0.6 oz pure alcoho l) Sex Assigned at Date Recorded Female 12/02/2020 1:42 PM CDT COVID-19 Exposure Response Date Recorded In the last month, have you been in contact with No / Unsure 08/24/2021 3:05 PM 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 EA 15 MIN CDT surgery of the musculoskeletal system Chronic right-sided low back pain without sciatica CA ULTRASOUND THERAPY, Routine 04/27/2021 1:52 PM Aftercare [...] sciatica documented in this encounter Care Teams Bark Grinder Relationship Specialty Start Date End Date Josh Carrero PCP - General Family Medicine 08/09/[address] [address] Julian Spencer MD Orthopedics 03/08/20 MD Darell [address] [place] [address] Julian Spencer Assigned Musculoskeletal 05/27/20 MD Darell Provider [address] [place] [address] Eugenio Finney Assigned Pediatric 06/19/2005/07 MD David Specialist Provider [address] [place] [address] 96 [place], [place] [phone] Urbano Price Assigned PCP 11/13/20 MD Esteban [address] [place] [address] Joe Leo MD Physical Medicine and 04/11/21 MD Rehabilitation [address] [place] [address] 297 [place], [place] [phone] Joe Leo, Assigned Neuroscience 04/30/21 MD Provider [address] [place] [phone] Douglas Gonzalez MD Pediatrics 05/29/21 MD Julian [address] [place] [address] Douglas Gonzalez Assigned Pediatric 06/04/21 MD Julian Specialist Provider [address] [place] [address] documented as of this encounter
--- OUTSIDE RECORDS SUMMARY | 2022-07-02 21:45 | XMS_ITS | Encounter Summary ---
:2001 Author Organization [place] Address [address] [place] [address]. [place] [address] Care Team Providers Name Role Phone Julian Spencer MD Unavailable Julian Spencer MD Unavailable Josh Carrero Primary Care Provider Urbano Price MD Unavailable Joe Leo MD Unavailable Joe Leo MD Unavailable Douglas Gonzalez MD Unavailable [phone] Douglas Gonzalez MD Unavailable [phone] Reason for Visit Reason Onset Date Comments Appointment 08/18/2021 Encounter Details Date Type Department Care Team Description 08/18/2021 Telephone Pediatric Endocrinol Urbano Agosto MD [facility]ment [facility] [address] [place] [address] [place] [address] [place], [place] [address] [phone] Social History Tobacco Use Types Packs/Day Years [...] CB, otherwise appt is confirmed for 3:00. OR JAVA SOFTWARE ENGINEER documented in this encounter Plan of Treatment Not on filedocumented as of this encounter Visit Diagnoses Not on filedocumented in this encounter Care Teams Focuser Relationship Specialty Start Date End Date Josh Carrero PCP - General Family Medicine 08/09/[address] [address] Julian Spencer MD Orthopedics 03/08/20 MD Darell [facility] [address] [place] [address] Julian Spencer Assigned Musculoskeletal 05/27/20 MD Darell Provider [facility] [address] [place] [address] Urbano Price Assigned PCP 11/13/20 MD Esteban [address] [place] [address] 660944 Joe Leo MD Physical Medicine and 04/11/21 Rehabilitation [address] 923[address] Joe Leo, Assigned Neuroscience 04/30/21 MD Provider [address] 857925 Douglas Gonzalez MD Pediatrics 05/29/21 MD Julian [facility] [address] 228[address] Douglas Gonzalez Assigned Pediatric 06/04/21 MD Julian Specialist Provider [facility] [address] 267[address] documented as of this encounter
--- OUTSIDE RECORDS SUMMARY | 2022-07-02 21:45 | XMS_ITS | Encounter Summary ---
:2001 Author Organization [place] Address [facility] [place] [address] Care Team Providers Name Role Phone Julian Spencer MD Unavailable Julian Spencer MD Unavailable Josh Carrero Primary Care Provider Urbano Price MD Unavailable Joe Leo MD Unavailable Joe Leo MD Unavailable Douglas Gonzalez MD Unavailable [phone] Douglas Gonzalez MD Unavailable [phone] Reason for Visit Reason Onset Date Comments Screening 08/21/2021 Covid Encounter Details Date Type Department Care Team Description 08/21/2021 Telephone Pediatric Endocrinol Urbano Agosto, [place] (Cov[facility] 12 [facility] 2450 [facility] S 2450 [place] [address] [place], [place] [phone] (Wo rk) [address] [phone] Social History Tobacco Use Types Packs/Day Years [...] change. 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 ASSEMBLER documented in this encounter Plan of Treatment Not on filedocumented as of this encounter Visit Diagnoses Not on filedocumented in this encounter Care Teams Dye House Wheel Operator Relationship Specialty Start Date End Date Josh Carrero PCP - General Family Medicine 08/09/[address] [address] Julian Spencer MD Orthopedics 03/08/20 MD Darell [facility] [place] [address] Julina Spencer Assigned Musculoskeletal 05/27/20 MD Darell Provider [facility] [place] [address] Urbano Price Assigned PCP 11/13/20 MD Esteban [facility] [place] [address] Joe Leo MD Physical Medicine and 04/11/21 MD Rehabilitation [address] [place] [address] Joe Leo, Assigned Neuroscience 04/30/21 MD Provider [address] [address] Douglas Gonzalez MD Pediatrics 05/29/21 MD Julian [facility] [address] [address] Douglas Gonzalez Assigned Pediatric 06/04/21 MD Julian Specialist Provider [address] [place] [address] documented as of this encounter
--- OUTSIDE RECORDS SUMMARY | 2022-07-02 21:45 | XMS_ITS | Encounter Summary ---
:2001 Author Organization [place] Address [facility] [place] [address] Care Team Providers Name Role Phone Julian Spencer MD Unavailable Julian Spencer MD Unavailable Josh Carrero Primary Care Provider Urbano Price MD Unavailable Joe Leo MD Unavailable Joe Leo MD Unavailable Douglas Gonzalez MD Unavailable [phone] Douglas Gonzalez MD Unavailable [phone] Encounter Details Date Type Department Care Team Description 07/03/2021 Telephone Pediatric Endocrinol Urbnao Agosto MD [facility] [address] [place] [address] [place] [address] [place], [place] [address] [phone] Social History Tobacco Use Types Packs/Day Years [...] and sent to Dr. Price for signature. R CARE SPECIALIST Telephone Encounter - Luz Adams - 07/03/2021 11:37 AM CST [facility] Phone Message May a detailed message be left on voicemail: no Reason for Call: Medication Refill Request Has the patient contacted the pharmacy for the refill? Yes Name of medication being requested: Teriaradtide Provider who prescribed the medication: Dr. Urbano Price Pharmacy: [facility] specialty pharmacy Date medication is needed: [facility] specialty pharmacy is calling in regards to new request Rx for Teriaradtide to be sent in. Please call [facility] specialty pharmacy with questions, . R CARE SPECIALIST documented in this encounter Plan of Treatment Not on filedocumented as of this encounter Visit Diagnoses Not on filedocumented in this encounter Care Teams Warehouse Driver Relationship Specialty Start Date End Date Josh Carrero PCP - General Family Medicine 08/09/[address] [address] Julian Spencer MD Orthopedics 03/08/20 MD Darell [address] [place] [address] 643714 Julian Spencer Assigned Musculoskeletal 05/27/20 MD Darell Provider [address] [address] Urbano Price Assigned PCP 11/13/20 MD Esteban [facility] [place], [place] [address] Joe Leo MD Physical Medicine and 04/11/[address] [place] [address] 297 [place], [place] 264365 Joe Leo, Assigned Neuroscience 04/30/21 MD Provider 420 [facility] 297 [place], [place] 195165 Douglas Gonzalez MD Pediatrics 05/29/21 MD Julian [address] [place] [address] Douglas Gonzalez Assigned Pediatric 06/04/21 MD Julian Specialist Provider [address] [place] [address] documented as of this encounter
--- OUTSIDE RECORDS SUMMARY | 2022-07-02 21:45 | XMS_ITS | Encounter Summary ---
:2001 Author Organization [place] Address [address] [place] [address] Care Team Providers Name Role Phone Julian Spencer MD Unavailable Julina Spencer MD Unavailable Josh Carrero Primary Care Provider Urbano Price MD Unavailable Joe Leo MD Unavailable Joe Leo MD Unavailable Douglas Gonzalez MD Unavailable [phone] Douglas Gonzalez MD Unavailable [phone] Encounter Details Date Type Department Care Team [...] with No / Unsure 07/04/2021 2:47 PM DIRECTOR CARDIOLOGY someone who was confirmed or suspected to have Coronavirus / COVID-19? documented as of this encounter Plan of Treatment Not on filedocumented as of this encounter Visit Diagnoses Not on filedocumented in this encounter Care Teams Scaffold Setter Relationship Specialty Start Date End Date Josh Carrero PCP - General Family Medicine 08/09/[address] [phone] Julian Spencer MD Orthopedics 03/08/20 MD Darell [address] [place] [address] Julian Spencer Assigned Musculoskeletal 05/27/20 MD Darell Provider [address] [place] [address] Urbano Price Assigned PCP 11/13/20 MD Esteban [address] [place] [address] Joe Leo MD Physical Medicine and 04/11/21 MD Rehabilitation [address] [address] Joe Leo, Assigned Neuroscience 04/30/21 MD Provider [address] 768895 Douglas Gonzalez MD Pediatrics 05/29/21 MD Julian [address] [place] [address] 992554 Douglas Gonzalez Assigned Pediatric 06/04/21 MD Julian Specialist Provider [address] [place] [address]284 documented as of this encounter
--- OUTSIDE RECORDS SUMMARY | 2022-07-02 21:45 | XMS_ITS | Encounter Summary ---
:2001 Author Organization [place] Address [address] [place] [address] Care Team Providers Name Role Phone Julian Spencer MD Unavailable Julian Spencer MD Unavailable Eugenio Finney MD Unavailable [phone] Josh Carrero Primary Care Provider Urbano Price MD Unavailable Joe Leo MD Unavailable Joe Leo MD Unavailable Douglas Gonzalez MD Unavailable [phone] Encounter Details Date Type Department Care Team [...] on filedocumented in this encounter Care Teams Study Assistant Relationship Specialty Start Date End Date Natty Carreros PCP - General Family Medicine 08/09/[address] [phone] Julian Spencer MD Orthopedics 03/08/20 MD Darell [address] [place] [address] Julian Spencer Assigned Musculoskeletal 05/27/20 MD Darell Provider [address] [place] [address] Eugenio Finney Assigned Pediatric 06/19/2005/07 MD David Specialist Provider [address] [place] [address] 96 [place], [place] 909915 Urbano Price Assigned PCP 11/13/20 MD Esteban 2450 [place], [place] 899444 Joe Leo MD Physical Medicine and 04/11/21 MD Rehabilitation [address] [place] [address] 297 [place], [place] 6623[address] Joe Leo, Assigned Neuroscience 04/30/21 MD Provider 420 [facility] 297 [place], [place] [address] Douglas Gonzalze MD Pediatrics 05/29/21 MD Julian [facility] M653 [place], [place] 240884 documented as of this encounter
--- OUTSIDE RECORDS SUMMARY | 2022-07-02 21:45 | XMS_ITS | Encounter Summary ---
:2001 Author Organization [place] Address 2450 [facility] [place] [address] Care Team Providers Name Role Phone Julian Spencer MD Unavailable Julian Spencer MD Unavailable Eugenio Finney MD Unavailable [phone] Josh Carrero Primary Care Provider Urbano Price MD Unavailable Joe Leo MD Unavailable Joe Leo MD Unavailable Douglas Gonzalez MD Unavailable [phone] Douglas Gonzalez MD Unavailable [phone] Encounter Details Date Type Department Care Team Description 05/25/2021 [facility] 2512 [facility] 2450 [facility] P853 [place], [place] [address]24 [place] [address] (Wo rk) Social History Tobacco [...] on filedocumented in this encounter Care Teams Suction Plate Roller Hand Relationship Specialty Start Date End Date Josh Carrero PCP - General Family Medicine 08/09/20 [place] [id number] Julian Spencer MD Orthopedics 03/08/20 MD Darell [facility]2 [address] [place] [address] 084724 Julian Spencer Assigned Musculoskeletal 05/27/20 MD Darell Provider [facility] [address] [address] Eugenio Finney Assigned Pediatric 06/19/2005/07 MD David Specialist Provider 420 [facility] 96 [place], [place] [address] Urbano Price Assigned PCP 11/13/20 MD Esteban 2450 [place], [place] 451564 Joe Leo MD Physical Medicine and 04/11/21 MD Rehabilitation [address] 943325 Joe Leo, Assigned Neuroscience 04/30/21 MD Provider [address] 273935 Douglas Gonzalez MD Pediatrics 05/29/21 MD Julian [address] [place] [address] Douglas Gonzalez Assigned Pediatric 06/04/21 MD Julian Specialist Provider [address] [place] [address] documented as of this encounter
--- OUTSIDE RECORDS SUMMARY | 2022-07-02 21:46 | XMS_ITS | Encounter Summary ---
:2001 Author Organization [place] Address [address] [place] [address] Care Team Providers Name Role Phone Julian Spencer MD Unavailable Julian Spencer MD Unavailable Eugenio Finney MD Unavailable [phone] Josh Carrero Primary Care Provider Urbano [...] on filedocumented in this encounter Care Teams Academic Affairs Director Relationship Specialty Start Date End Date Josh Carrero PCP - General Family Medicine 08/09/[address] [address] Julian Spencer MD Orthopedics 03/08/20 MD Darell [address] [place] [address] Julian Spencer Assigned Musculoskeletal 05/27/20 MD Darell Provider [address] [place] [address] Eugenio Finney Assigned Pediatric 06/19/2005/07 MD David Specialist Provider 420 [facility] 96 [place] [address] Urbano Price Assigned PCP 11/13/20 MD Esteban 2450 [facility] [address] Joe Leo MD Physical Medicine and 04/11/21 MD Rehabilitation 420 [facility] 297 [place] [address] documented as of this encounter
--- OUTSIDE RECORDS SUMMARY | 2022-07-02 21:46 | XMS_ITS | Encounter Summary ---
:2001 Author Organization [facility] Address [address] [place] [address] Care Team Providers Name Role Phone Julian Spencer MD Unavailable Julian Spencer MD Unavailable Eugenio Finney MD Unavailable [phone] Josh Carrero Primary Care Provider Urbano Price MD Unavailable Reason for Visit Reason Comments Clinic Care Coordination - Follow-up Encounter Details Date Type Department Care Team Description 12/05/2020 Care Coordination [facility] Tim Tay Pediatric RUTH Arnold Coordination - Specialty Clinic [phone] Follow-up [address] [place] [address], [email or web address] (Work) Floor [address] [address] Social History Tobacco Use Types [...] the Forteo prescription. She will call the [facility] specialty pharmacy to discuss delivery versus getting at local pharmacy. Mother told thatthe PA seems to indicate it must go [facility] the [facility]. Mother states she is familiar with giving [...] PCP - General Family Medicine 08/09/[address] [address] Julian Spencer MD MD Orthopedics 03/08/[address] [place] [address] 465434 Julian Spencer MD Assigned Musculoskeletal 05/27/20 [address] [place] [address] Provider [place], [place] 17[address]4 Eugenio Finney Assigned Pediatric 06/19/2005/07 MD David Specialist Provider [facility] 96 [place], [place] 765455 Urbano Price, Assigned PCP 11/13/20 [facility] [place] [place] [address] documented as of this encounter
--- OUTSIDE RECORDS SUMMARY | 2022-07-02 21:46 | XMS_ITS | Encounter Summary ---
:2001 Author Organization [facility] Address [address] [place] [address] Care Team Providers Name Role Phone Julian Spencer MD Unavailable Julian Spencer MD Unavailable Eugenio Finney MD Unavailable [phone] Josh Carrero Primary Care Provider Urbano Price [...] filedocumented in this encounter Care Teams Director Systems Relationship Specialty Start Date End Date Josh Carrero PCP - General Family Medicine 08/09/[address] [address] Julian Spencer MD Orthopedics 03/08/20 MD Darell [address] [place] [address] Julian Spencer Assigned Musculoskeletal 05/27/20 MD Darell Provider [address] [place] [address] Eugenio Finney Assigned Pediatric 06/19/2005/07 MD David Specialist Provider 420 [facility] 96 [place] [address] Urbano Price Assigned PCP 11/13/20 MD Esteban 2450 [facility] [place] [address] Joe Leo MD Physical Medicine and 04/11/21 MD Rehabilitation 420 [facility] 297 [place] [address] documented as of this encounter
--- OUTSIDE RECORDS SUMMARY | 2022-07-02 21:46 | XMS_ITS | Encounter Summary ---
:2001 Author Organization [place] Address [address] [place] [address] Care Team Providers Name Role Phone Julian Spencer MD Unavailable Julian Spencer MD Unavailable Eugenio Finney MD Unavailable [phone] Josh Carrero Primary Care Provider Urbano Price [...] on filedocumented in this encounter Care Teams Video Rental Clerk Relationship Specialty Start Date End Date Josh Carrero PCP - General Family Medicine 08/09/[address] [address] Julian Spencer MD MD Orthopedics 03/08/[address] [place], [place] [phone] Julian Spencer MD Assigned Musculoskeletal 05/27/[address] Provider [place], [place] [phone] Eugenio Finney Assigned Pediatric 06/19/2005/07 MD David Specialist Provider [address] [facility] 96 [place] [address] Urbano Price, Assigned PCP 11/13/20 [facility]0 [place] [address] documented as of this encounter
--- OUTSIDE RECORDS SUMMARY | 2022-07-02 21:46 | XMS_ITS | Encounter Summary ---
:2001 Author Organization [facility] Address [address] [place] [address]. [place] [address] Care Team Providers Name Role Phone Julian Spencer MD Unavailable Julian Spencer MD Unavailable Eugenio Finney MD Unavailable [phone] Josh Carrero Primary Care Provider Urbano Price MD Unavailable Joe Leo MD Unavailable Encounter Details Date Type Department Care Team Description 04/24/2021 Orders Only Pediatric Urbano Price Localized os teoporosis without current pathological fracture (Primary Dx); Endocrinology MD Esteban Pseudarthrosis following spinal fusion [facility] [address] [place] [address] [phone] Social History Tobacco Use Types Packs/Day Years [...] Code Phon e Number [facility] [place] [facility] [place] [address] [facility] [address] [place] [address] [phone] C-Telopeptide, Xkwj-Tpshl-Yyxqfw (05/15/2021 9:11 AM CDT) athologist Signature C-Telopept 398 64 - 640 05/17/2021 [facility] B-X-Linked pg/mL 4:26 PM CDT Comment: REFERENCE INTERVAL: C-Telopeptide, Beta- Cross-Linked, Serum Access complete set of age- and/or gende r-specific reference intervals for this test in the [facility] Test Directory ([employer]). Specimen Anatomical Collection Method / Collection Time Recei donal Time (Source) Location / Volume Laterality Blood BLOOD SPECIMEN / Venipuncture / 05/15/2021 9:11 2020 9:25 Unknown Unknown AM CDT AM CDT Narrative [facility] - 05/17/2021 4:26 PM CDT Postmenopausal Females: 104-1008 pg/mL Performed By: [facility] [address] [place] [address] Dining Service Inspector: Brandi Dooley MD Urbano Price MD LAB - BLOOD ORDERABLES Performing Organization Address City/State/ZIP Code Phon e Number [facility] [employer] [place], [place] [phone] 500 [facility] [address] Comprehensive metabolic panel (05/15/2021 9:11 AM CDT) [...] e Number [facility] [place] [address] 2450 [facility]ORY [facility] [place] [phone] Bone specific alk phosphatase (05/15/2021 9:11 AM CDT) athologist Signature Bone Spec Alk 22.7 ug/L [...] ?? 7.0 - 22.4 ug/L Performed By: [facility] [address] [place] [address] Dining Service Inspector: Brandi Dooley MD Urbano Price MD LAB - BLOOD ORDERABLES Performing Organization Address City/[facility] Phon e Number [facility] [employer] [place], [place] [phone] 500 [facility] [address] Osteocalcin (05/15/2021 9:11 AM CDT) athologist Signature Osteocalcin by 27 11 - 50 05/17/2021 [facility]IA ng/mL 4:26 PM CDT Comment: INTERPRETIVE INFORMATION: Osteocalcin by ECIA In patients with renal failure the osteo calcin result can be elevated, both directly, due to impai red clearance and indirectly, due to renal osteodystrophy. Access complete set of age- and/or gende r-specific reference intervals for this test in the [facility] Test Directory ([employer]). Specimen Anatomical Collection Method / Collection Time Recei donal Time (Source) Location / Volume Laterality Blood BLOOD SPECIMEN / Venipuncture / 05/15/2021 9:11 2020 9:25 Unknown Unknown AM CDT AM CDT Narrative [facility] - 05/17/2021 4:26 PM CDT Performed By: [facility] [address] [place], [place] [id number] Dining Service Inspector: Brandi Dooley MD Urbano Price MD LAB - BLOOD ORDERABLES Performing Organization Address City/[facility] Phon e Number [employer] [place], [place] [phone] 500 [facility] [address] Parathyroid Hormone Intact (05/15/2021 9:11 AM CDT) athologist [facility] Parathyroid 30 18 - 80 05/15/2021 [facility] Hormone Intact pg/mL 12:43 PM CDT Specimen Anatomical Collection Method / Collection Time Recei donal Time (Source) Location / Volume Laterality Blood BLOOD SPECIMEN / Venipuncture / 05/15/2021 9:11 2020 9:25 Unknown Unknown AM CDT AM CDT Urbano Price MD LAB - BLOOD ORDERABLES Performing Organization Address City/State/ZIP Code Phon e Number [place] [address] [facility], Room 3-580 [place] [address], [facility] [place] 500 [facility], Room 3580 1,25 Dihydroxyvitamin D (05/15/2021 9:11 AM CDT) Patholo gist Method Time Signature 1,25 42.4 19.9 - 05/17/2021 [facility] Dihydroxyvitamin D 79.3 3:31 PM CDT SPECIALTY pg/mL CORE Specimen Anatomical Collection Method / Collection Time Recei donal Time (Source) Location / Volume Laterality Blood BLOOD SPECIMEN / Venipuncture / 05/15/2021 9:11 2020 9:25 Unknown Unknown AM CDT AM CDT Urbano Price MD LAB - BLOOD ORDERABLES Performing Organization Address City/[facility] Code Phon [place] [phone] CORE/PROT/ENDO Core/Prot/Endo 500 [facility], Room 3-580 [facility] SPECIALTY CORE [facility] [place] Lab [address], [facility] [[email or web address]] 420 [facility], Room L271-5 Vitamin D2 + D3, 25 Hydroxy (05/15/2021 9:11 AM CDT) P athologist Signature 25 [place] Vitamin <5 ug/L 05/16/2021 [facility] D2 3:18 PM CDT SPECIAL CHEM 25 [place] Vitamin 38 ug/L 05/16/2021 [facility] D3 3:18 PM CDT SPECIAL CHEM 25 [place] Vit D <43 20 - 75 05/16/2021 [facility] Total ug/L 3:18 PM CDT SPECIAL CHEM Comment: Season, race, dietary intake, a nd treatment affect the concentration of 73-tmcniji-Vawgwiz D. Values may decreas e during winter [...] Unknown AM CDT AM CDT Narrative [facility] SPECIAL CHEM - 05/16/2021 3:18 P M CDT This test was developed and its performa nce characteristics determined by the [facility], ??Special Chemistry Laboratory. It has not been cleared or approved by the FDA. The laboratory is regulated under CLIA as qualified to perform high-complexity noah ting. This test is used for clinical purposes. It should not be regarded as i nvestigational or for research. Urbano Price MD LAB - BLOOD ORDERABLES Performing Organization Address City/State/ZIP Code Phon e Number SPECIAL DRUG/[facility] Special Drug/[place] [address] 500 [facility] [address] Building, Room 3-580 [facility] [place] [address], CHEMISTRY [place] [address] [place] [address], Room L223 documented in this encounter Visit Diagnoses Diagnosis Localized osteoporosis without current p athological fracture - Primary Pseudarthrosis following spinal fusion Arthrodesis status documented in this encounter Care Teams Video Editor Relationship Specialty Start Date End Date Josh Carrero PCP - General Family Medicine 08/09/[address] [address] Julian Spencer MD Orthopedics 03/08/20 MD Darell [address] [place] [address] 692324 Julian Spencer Assigned Musculoskeletal 05/27/20 MD Darell Provider [address] [address] Eugenio Finney Assigned Pediatric 06/19/2005/07 MD David Specialist Provider [address] [place] [facility] 96 [place] [address] Urbano Price Assigned PCP 11/13/20 MD Esteban 2450 [place] [address] Joe Leo MD Physical Medicine and 04/11/[address] [place] [address] 297 [place] [address] documented as of this encounter
--- OUTSIDE RECORDS SUMMARY | 2022-07-02 21:46 | XMS_ITS | Encounter Summary ---
:2001 Author Organization [facility] Address [address] [place] [address]. [place] [address] Care Team Providers Name Role Phone Julian Spencer MD Unavailable Julian Spencer MD Unavailable Eugenio Finney MD Unavailable [phone] Josh Carrero Primary Care Provider Urbano Price MD Unavailable Joe Leo MD Unavailable Reason for Referral Consultation (Routine) - Closed Specialty Diagnoses / Procedures Referred By Contact Refer red To Contact Diagnoses Chronic bilateral low back pain without sciatica Reta Escalante PA-C [address] [place] [address] 1490 4 Referral ID Status Reason Start Date Expiration Date Visits Requ ested Visits Authorized [id number] Closed 04/11/2021 04/11/2022 1 1 Reason for Visit Reason Comments RECHECK Increasing back pain. Surger y with Dr. Spencer 08/09/20. Encounter Details Date Type Department Care Team Description 04/11/2021 Office Visit [facility] Reta Escalante PA-C Chronic bilateral low back pain without sciatica (Primary Dx); Orthopedic Clinic [address] Acute post-operative pain; [place], [place] Inflammation of operative in cision 909 [place] [address] [address] [place] [address] Social History Tobacco Use Types [...] removal of Crosslink by Dr. Muro at [place]. Dr. Spencer attempted hardare removal and found [...] T4-L4 fusion, last in August by Dr. Spencre DISCUSSION/PLAN: 1. Will trial flexeril 10 mg [...] incision documented in this encounter Care Teams Fishing Vessel Deckhand Relationship Specialty Start Date End Date Josh Carrero PCP - General Family Medicine 08/09/[address] [address] Julian Spencer MD Orthopedics 03/08/20 MD Darell [address] [place] [address] 438744 Julian Spencer Assigned Musculoskeletal 05/27/20 MD Darell Provider [address] [place], [place] [address] Eugenio Finney Assigned Pediatric 06/19/2005/07 MD David Specialist Provider 420 [facility] 96 [place], [place] 117355 Urbano Price Assigned PCP 11/13/20 MD Esteban 2450 [place] [address] Joe Leo MD Physical Medicine and 04/11/[address] [place] [address] 297 [place] [address] documented as of this encounter
--- OUTSIDE RECORDS SUMMARY | 2022-07-02 21:46 | XMS_ITS | Encounter Summary ---
:2001 Author Organization [place] Address [address] [place] [address] Care Team Providers Name Role Phone Julian Spencer MD Unavailable Julian Spencer MD Unavailable Eugenio Finney MD Unavailable [phone] Josh Carrero Primary Care Provider Urbano Price MD Unavailable Reason for Referral Diagnostic Imaging XR (Routine) - Closed Specialty Diagnoses / Procedures Referred By Contact Refer red To Contact Diagnoses S/P spinal surgery Reta Escalante PA-C Procedures XR Spine Complete Scoliosis 2 Views [address] [id number] Referral ID Status Reason Start Date Expiration Date Visits Requ ested Visits Authorized [id number] Closed 04/05/2021 04/05/2022 1 1 iagnostic Imaging XR (Routine) - Closed Specialty Diagnoses / Procedures Referred By Contact Refer red To Contact Diagnoses S/P spinal surgery Reta Escalante PA-C Procedures XR Six Foot Standing Extremities [address] [place] [id number] 4 Referral ID Status Reason Start Date Expiration Date Visits Requ ested Visits Authorized [id number] Closed 04/05/2021 04/05/2022 1 1 Encounter Details Date Type Department Care Team Description 04/05/2021 Orders Only [facility] Reta Escalante PA-C S/P spinal surgery Orthopedic Clinic [facility] (Primary Dx) [address] [address] 4th [place] [address] Social History Tobacco Use Types [...] No substantial global coronal imbalance. Sagittal Vertical [place] (A vertical line drawn from the center [...] No substantial global coronal imbalance. Sagittal Vertical [place] (A vertical line drawn from the center [...] . [place] MICHEL MD Reta Escalante PA-C [facility] [...] No substantial global coronal imbalance. Sagittal Vertical [place] (A vertical line drawn from the center [...] No substantial global coronal imbalance. Sagittal Vertical [place] (A vertical line drawn from the center [...] . [place] MICHEL MD Reta Escalante PA-C [facility] ORDER DANO documented in this encounter Visit Diagnoses Diagnosis S/P spinal surgery - Primary Other postprocedural status documented in this encounter Care Teams Armed Guard Relationship Specialty Start Date End Date Josh Carrero PCP - General Family Medicine 08/09/[address] [address] Julian Spencer MD MD Orthopedics 03/08/[address] [place], [place] [address] Julian Spencer MD Assigned Musculoskeletal 05/27/[address] Provider [place], [place] [address] Eugenio Finney Assigned Pediatric 06/19/2005/07 MD David Specialist Provider [address] [facility] 96 [place], [place] [address] Urbano Price, Assigned PCP 11/13/20 [address] [place], [place] 6437[address] documented as of this encounter
--- OUTSIDE RECORDS SUMMARY | 2022-07-02 21:46 | XMS_ITS | Encounter Summary ---
:2001 Author Organization [place] Address [address] [place] [address] Care Team Providers Name Role Phone Julian Spencer MD Unavailable Julian Spencer MD Unavailable Eugenio Finney MD Unavailable [phone] Josh Carrero Primary Care Provider Urbano Price MD Unavailable Joe Leo MD Unavailable Reason for Referral Medication Prior Authorization - Closed Specialty Diagnoses / Procedures Referred By Contact Refer red To Contact Diagnoses Tethered cord (H) Chronic pain syndrome S/P spinal fusion Joe Leo MD [address] [address] Referral ID Status Reason Start Date Expiration Date Visits Requ ested Visits Authorized [id number] Closed 1 1 Reason for Visit Reason Comments Consult [facility] New Encounter Details Date Type Department Care Team Description 04/20/[address] [facility] Joe Leo Tether ed cord (H) (Primary Dx); Physical Medicine and MD Chronic pain syndrome; Rehabilitation Clinic 420 [facility] S/P spinal fusion [facility] [address] Floor [address] [place], [place] [phone] [address] (Work) [phone] Social History Tobacco Use Types Packs/Day Years [...] of muscle relaxer. 2. Check with you sock lining examiner about the use of Celebrex and platelets [...] removal of Crosslink by Dr. Muro at [place]. Dr. Spencer attempted hardare removal and found [...] had an acute exacerbation and seen at [facility] ED Apr 18, 2021 and asked to be seen more urgently. She is accompanied today by her mother. She has seen and worked with multiple specialists only surgically, but also several pain specialist at [facility]. Despite this, she has ongoing pain [...] school. 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 PRIOR INJURIES/TREATMENT: Ice/Heat - limited benefit Physical [...] removal of Crosslink by Dr. Muro at [place]. Dr. Spencer attempted hardare removal and found pseudoarthrosis and she is s/p revision surgery 08/09/2020. Other (acupuncture, OMT, CMM, TENS, DME, etc.): Specialists Seen - (with most recent, available notes and clinic visits reviewed) 1. Orthopedic spine surgery-Dr. Julian Spencer, Reta Escalante PA-C 2. Hematology - Dr. Atwood 3. Pain Clinic Dr. Lisa NIELSON - reviewed 04/11/21 XR Spine Complete Findings: [...] substantial global coronal imbalance. ?? Sagittal Vertical [place] (A vertical line drawn from the center [...] on file. 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 Commutes to school 45min She reports [...] and can coordinate platelet transfusion with her sock lining examiner prior to any injection therapies - Rx: [...] I would defer this to her treating sock lining examiner. - We will determine follow up once [...] Chief Complaint Patient presents with ??? 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 Chronic pain syndrome S/P spinal fusion Arthrodesis status documented in this encounter Care Teams Hollow Tile Partition Erector Relationship Specialty Start Date End Date Josh Carrero PCP - General Family Medicine 08/09/[address] [address] Julian Spencer MD Orthopedics 03/08/20 MD Darell [address] [place] [address] 240464 Julian Spencer Assigned Musculoskeletal 05/27/20 MD Darell Provider [address] [place] [address] 986424 Eugenio Finney Assigned Pediatric 06/19/2005/07 MD David Specialist Provider 420 [facility] 96 [place] [address] Urbano Price Assigned PCP 11/13/20 MD Esteban [facility] [place] [address] Joe Leo MD Physical Medicine and 04/11/21 Rehabilitation 420 [facility] 297 [place] [address] documented as of this encounter
--- OUTSIDE RECORDS SUMMARY | 2022-07-02 21:46 | XMS_ITS | Encounter Summary ---
:2001 Author Organization [place] Address [address] [place] [address] Care Team Providers Name Role Phone Julian Spencer MD Unavailable Julian Spencer MD Unavailable Eugenio Finney MD Unavailable [phone] Josh Carrero Primary Care Provider Urbano Price [...] on filedocumented in this encounter Care Teams Corporate Strategist Relationship Specialty Start Date End Date Josh Carrero PCP - General Family Medicine 08/09/[address] [address] Julian Spencre MD MD Orthopedics 03/08/[address] [place], [place] [address] Julian Spencer MD Assigned Musculoskeletal 05/27/[address] Provider [place], [place] [address] Eugenio Finney Assigned Pediatric 06/19/2005/07 MD David Specialist Provider [address] [place] [facility] 96 [place] [address] Urbano Price, Assigned PCP 11/13/20 [facility], [facility]–[address] [address] [place] [address] documented as of this encounter
--- OUTSIDE RECORDS SUMMARY | 2022-07-02 21:46 | XMS_ITS | Encounter Summary ---
:2001 Author Organization [place] Address [address] [place] [address] Care Team Providers Name Role Phone Julian Spencer MD Unavailable Julian Spencer MD Unavailable Eugenio Finney MD Unavailable [phone] Josh Carrero Primary Care Provider Urbano Price MD Unavailable Reason for Visit Reason Comments Clinic Care Coordination - Follow-up Encounter Details Date Type Department Care Team Description 12/08/2020 Care Coordination [facility] Tim Tay Pediatric RUTH Arnold Coordination - Specialty Clinic [phone] Follow-up [address] [place] [address], [facility] (Work) Floor [address] [address] Social History Tobacco Use Types [...] on filedocumented in this encounter Care Teams Press Clipper Relationship Specialty Start Date End Date Josh Carrero PCP - General Family Medicine 08/09/[address] [address] Julian Spencer MD MD Orthopedics 03/08/[address] [place], [place] 25[address] Julian Spencer MD Assigned Musculoskeletal 05/27/[address] Provider [place], [place] [address] Eugenio Finney Assigned Pediatric 06/19/2005/07 MD David Specialist Provider [address] [place] [address] [facility] 96 [place], [place] [address] Urbano Price, Assigned PCP 11/13/20 [facility] [place] [place] [address] documented as of this encounter
--- OUTSIDE RECORDS SUMMARY | 2022-07-02 21:46 | XMS_ITS | Encounter Summary ---
:2001 Author Organization [place] Address [address] [place] [address]. [place] [address] Care Team Providers Name Role Phone Julian Spencer MD Unavailable Julian Spencer MD Unavailable Eugenio Finney MD Unavailable [phone] Josh Carrero Primary Care Provider Urbano Price MD Unavailable Joe Leo MD Unavailable Reason for Visit Diagnostic Imaging XR (Routine) - Closed Specialty Diagnoses / Procedures Referred By Contact Refer red To Contact Diagnoses S/P spinal surgery Reta Escalante PA-C Procedures XR Six Foot Standing Extremities [address] [place] [address] 7884 4 Referral ID Status Reason Start Date Expiration Date Visits Requ ested Visits Authorized [id number] Closed 04/05/2021 04/05/2022 1 1 Encounter Details Date Type Department Care Team Description 04/11/2021 Ancillary Procedure [facility] Ale[facility]andro Cuad[facility] PA-C Imaging Center Xray [facility]0 [place] 6[address]959 [facility] [place] [address] [facility] [place] [address] Social History Tobacco Use Types [...] No substantial global coronal imbalance. Sagittal Vertical [place] (A vertical line drawn from the center [...] No substantial global coronal imbalance. Sagittal Vertical [place] (A vertical line drawn from the center [...] on filedocumented in this encounter Care Teams Freight Coordinator Relationship Specialty Start Date End Date Josh Crarero PCP - General Family Medicine 08/09/20 [place] [address] Julian Spencer MD Orthopedics 03/08/20 MD Darell [address] [place] [address] 112994 Julian Spencer Assigned Musculoskeletal 05/27/20 MD Darell Provider [address] [place] [address] 844464 Eugenio Finney Assigned Pediatric 06/19/2005/07 MD David Specialist Provider [address] [place] [address] [facility] 96 [place], [place] 90[address]85 Urbano Price Assigned PCP 11/13/20 MD Esteban [facility]0 [facility] [place], [place] [address] Joe Leo MD Physical Medicine and 04/11/[address] [place] [address] documented as of this encounter
--- OUTSIDE RECORDS SUMMARY | 2022-07-02 21:46 | XMS_ITS | Encounter Summary ---
:2001 Author Organization [place] Address [address] [place] [address] Care Team Providers Name Role Phone Julian Spencer MD Unavailable Julian Spencer MD Unavailable Eugenio Finney MD Unavailable [phone] Josh Carrero Primary Care Provider Urbano Price MD Unavailable Joe Leo MD Unavailable Joe Leo MD Unavailable Douglas Gonzalez MD Unavailable [phone] Douglas Gonzalez MD Unavailable [phone] Reason for Visit Reason Onset Date Comments Appointment 04/19/2021 Work in appointment request Encounter Details Date Type Department Care Team Description 04/19/2021 Telephone [facility] Joe Leo Appoin tment (Work in Physical Medicine and MD appointment request) Rehabilitation Clinic 420 [facility] [address] Floor [address] [place] [address] [phone] [address] (Work) [phone] Social History Tobacco Use Types Packs/Day Years [...] PM CDT Sabina 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 11:00 work in spot available as another patient was not able to make that time and day. Scheduled patient and Sabina was going to call patient's mother to confirm. Evelyn Aburto RN, BSN, PHN Telephone Encounter - Evelyn Aburto RN - 04/19/2021 10:10 AM CDT [...] on filedocumented in this encounter Care Teams Medical Photographer Relationship Specialty Start Date End Date Josh Carrero PCP - General Family Medicine 08/09/[address] [address] Julian Spencer MD Orthopedics 03/08/[address] [facility] [place] 1339500 [place] [address] Julian Spencer Assigned Musculoskeletal 05/27/20 MD Darell Provider [address] [place], [place] [address] Eugenio Finney Assigned Pediatric 06/19/2005/07 MD David Specialist Provider [address] [place] [address] 96 [place], [place] 74[address] Urbano Price Assigned PCP 11/13/20 MD Esteban [address] [place] [address] 957004 Joe Leo MD Physical Medicine and 04/11/21 MD Rehabilitation [address] [place] [address] 297 [place], [place] 33[address] Joe Leo, Assigned Neuroscience 04/30/21 MD Provider [address] [place] [address] 297 [place], [place] 7[address] Douglas Gonzalez MD Pediatrics 05/29/21 MD Julian [address] [place] [address] 67[address] Douglas Gonzalez Assigned Pediatric 06/04/21 MD Julian Specialist Provider [address] [place] [address] documented as of this encounter
--- OUTSIDE RECORDS SUMMARY | 2022-07-02 21:46 | XMS_ITS | Encounter Summary ---
:2001 Author Organization [place] Address [address] [place] [address] Care Team Providers Name Role Phone Julian Spencer MD Unavailable Julian Spencer MD Unavailable Eugenio Finney MD Unavailable [phone] Josh Carrero Primary Care Provider Urbano Price MD Unavailable Reason for Visit Diagnostic Imaging XR (Routine) - Closed Specialty Diagnoses / Procedures Referred By Contact Refer red To Contact Diagnoses S/P spinal surgery Julian Spencer MD Procedures XR Spine Complete Scoliosis 2 Views [address] [place], [place] [address] [place], [place] [address] Referral ID Status Reason Start Date Expiration Date Visits Requ ested Visits Authorized [id number] Closed 11/28/2020 11/28/2021 1 1 Encounter Details Date Type Department Care Team Description 12/01/2020 Ancillary Procedure [facility] Julian Spencer Imaging [facility] Juveay MD Darell [place] [address]09 [place], [place] 1st Floor [address] [place], [place] [phone] [address] (Work) [phone] Social History Tobacco Use Types Packs/Day Years [...] No substantial global coronal imbalance. Sagittal Vertical [place] (A vertical line drawn from the center [...] No substantial global coronal imbalance. Sagittal Vertical [place] (A vertical line drawn from the center [...] on filedocumented in this encounter Care Teams Field Agent Relationship Specialty Start Date End Date Josh Carrero PCP - General Family Medicine 08/09/20 [place] [address] Julian Spencer MD MD Orthopedics 03/08/20 [address] [place], [place] [address] [place], [place] 4768[address] Julian Spencer MD Assigned Musculoskeletal 05/27/[address] [place] [address] Eugenio Finney Assigned Pediatric 06/19/2005/07 MD David Specialist Provider [address] [facility] 96 [place], [place] [address] Urbano Price, Assigned PCP 11/13/20 [facility] [place], [place] 29[address] documented as of this encounter
--- OUTSIDE RECORDS SUMMARY | 2022-07-02 21:46 | XMS_ITS | Encounter Summary ---
:2001 Author Organization [place] Address [address] [place] [address] Care Team Providers Name Role Phone Julian Spencer MD Unavailable Julian Spencer MD Unavailable Eugenio Finney MD Unavailable [phone] Josh Carrero Primary Care Provider Urbano Price MD Unavailable Joe Leo MD Unavailable Joe Leo MD Unavailable Douglas Gonzalez MD Unavailable [phone] Douglas Gonzalez MD Unavailable [phone] Reason for Visit Reason Onset Date Comments Medication Question 04/20/2021 order clarification Encounter Details Date Type Department Care Team Description 04/20/2021 Telephone [facility] Joe Leo Medica tiarnie Question Physical Medicine and (order clarification ) Rehabilitation Clinic 420 [facility] [address] Floor [address] [place], [place] [phone] [address] (Work) [phone] Social History Tobacco Use Types Packs/Day Years [...] Sauceda RN - 04/20/2021 4:12 PM CDT [facility] pharmacy contacted back to go over medication instructions as per Dr Leo. Instructions also can be found on patient's AVS and gone over in detail at end of clinic visit on 04/20/21. Telephone Encounter - RosaliaNovember - 04/20/2021 3:05 PM CDT [facility] Call Center Phone Message May a detailed message be left on voicemail: yes Reason for Call: Medication Question or concern regarding medication Prescription Clarification Name of Medication: baclofen (LIORESAL) 10 MG tablet Prescribing Provider: Joe Leo MD Pharmacy: [id number] [address] What on the order needs clarification? Pharmacy stated the rder doesn't specify when to increase to one full tablet. Action Taken: Message routed to: [facility] neurology Travel Screening: Not Applicable documented in this encounter Plan of Treatment Not on filedocumented as of this encounter Visit Diagnoses Not on filedocumented in this encounter Care Teams Technologist Development Relationship Specialty Start Date End Date Josh Carrero PCP - General Family Medicine 08/09/[address] [address] Julina Spencer MD Orthopedics 03/08/20 MD Darell [facility] [address] [address] Julian Spencer Assigned Musculoskeletal 05/27/20 MD Darell Provider [address] [place], [place] [address] Eugenio Finney Assigned Pediatric 06/19/2005/07 MD David Specialist Provider [address] [place] [address] 96 [place], [place] 93[address]85 Urbano Price Assigned PCP 11/13/20 MD Esteban [address] [place] [address] Joe Leo MD Physical Medicine and 04/11/[address] [place] [address] 297 [place], [place] 5[address] Joe Leo, Assigned Neuroscience 04/30/21 MD Provider 420 [facility] 297 [place], [place] [address] Douglas Gonzalez MD Pediatrics 05/29/21 MD Julian [address] [place] [address]654 Douglas Gonzalez Assigned Pediatric 06/04/21 MD Julian Specialist Provider [address] [place] [address] documented as of this encounter
--- OUTSIDE RECORDS SUMMARY | 2022-07-02 21:46 | XMS_ITS | Encounter Summary ---
:2001 Author Organization [facility] Address [address] [place] [address] Care Team Providers Name Role Phone Julian Spencer MD Unavailable Julian Spencer MD Unavailable Eugenio Finney MD Unavailable [phone] Josh Carrero Primary Care Provider Urbano Price [...] on filedocumented in this encounter Care Teams Jewel Stripper Relationship Specialty Start Date End Date Josh Carrero PCP - General Family Medicine 08/09/[address] [address] Julian Spencer MD Orthopedics 03/08/20 MD Darell [address] [place] [address] Julian Spencer Assigned Musculoskeletal 05/27/20 MD Darell Provider [address] [place] [address] Eugenio Finney Assigned Pediatric 06/19/2005/07 MD David Specialist Provider 420 [facility] 96 [place] [address] Urbano Price Assigned PCP 11/13/20 MD Esteban 2450 [facility] [place] [address] Joe Leo MD Physical Medicine and 04/11/21 MD Rehabilitation 420 [facility] 297 [place] [address] documented as of this encounter
--- OUTSIDE RECORDS SUMMARY | 2022-07-02 21:46 | XMS_ITS | Encounter Summary ---
:2001 Author Organization [place] Address [address] [place] [address]. [place] [address] Care Team Providers Name Role Phone Julian Spencer MD Unavailable Julian Spencer MD Unavailable Eugenio Finney MD Unavailable [phone] Josh Carrero Primary Care Provider Urbano Price MD Unavailable Joe Leo MD Unavailable Reason for Visit Diagnostic Imaging XR (Routine) - Closed Specialty Diagnoses / Procedures Referred By Contact Refer red To Contact Diagnoses S/P spinal surgery Reta Escalante PA-C Procedures XR Spine Complete Scoliosis [address] [place] [address] 4 Referral ID Status Reason Start Date Expiration Date Visits Requ ested Visits Authorized [id number] Closed 04/05/2021 04/05/2022 1 1 Encounter Details Date Type Department Care Team Description 04/11/2021 [facility] Xray [address] 487689 [place] [address] [facility] [place] [address] Social History Tobacco Use Types [...] No substantial global coronal imbalance. Sagittal Vertical [place] (A vertical line drawn from the center [...] No substantial global coronal imbalance. Sagittal Vertical [place] (A vertical line drawn from the center [...] on filedocumented in this encounter Care Teams Ortho Tech Relationship Specialty Start Date End Date Josh Carrero PCP - General Family Medicine 08/09/[address] [address] Julian Spencer MD Orthopedics 03/08/20 MD Darell [address] [place] [address] 865524 Julian Spencer Assigned Musculoskeletal 05/27/20 MD Darell Provider [address] [place], [place] [address] Eugenio Finney Assigned Pediatric 06/19/2005/07 MD David Specialist Provider [address] [place] [address] [facility] 96 [place], [place] [address] Urbano Price Assigned PCP 11/13/20 MD Esteban [facility] [place], [place] [address] Joe Leo MD Physical Medicine and 04/11/[address] [place] [address] documented as of this encounter
--- OUTSIDE RECORDS SUMMARY | 2022-07-02 21:46 | XMS_ITS | Encounter Summary ---
:2001 Author Organization [place] Address [address] [place] [address] Care Team Providers Name Role Phone Julian Spencer MD Unavailable Julian Spencer MD Unavailable Eugenio Finney MD Unavailable [phone] Josh Carrero Primary Care Provider Urbano Price MD Unavailable Joe Leo MD Unavailable Joe Leo MD Unavailable Reason for Referral Clinically Administered Medications - Closed Specialty Diagnoses / Procedures Referred By Contact Refer red To Contact Physical Medicine and Diagnoses Muscle spasm Joe Leo MD [facility] Procedures ZZC BOTULINUM TOXIN A PER 1 UNIT 100 Units ONCE 420 [facility] Rehab [facility] 297 909 [place], [place] [address]rd Floor [address] [place] [address] Phone: Fax: Referral ID Status Reason Start Date Expiration Date Visits Requ ested Visits Authorized [id number] Closed 04/25/2021 07/04/2021 1 4 Encounter Details Date Type Department Care Team Description 04/25/2021 Orders Only [facility] Brianna Leo MD Muscle spasm (Primary Neurology Clinic 420 [facility] SE Dx) [facility] [address] [place] [address] [phone] Social History Tobacco Use Types Packs/Day Years [...] muscle documented in this encounter Care Teams Jammer Operator Relationship Specialty Start Date End Date Josh Carrero PCP - General Family Medicine 08/09/[address] [address] Julian Spencer MD Orthopedics 03/08/20 MD Darell [address] [place] [address] 281274 Julian Spencer Assigned Musculoskeletal 05/27/20 MD Darell Provider [address] [place], [place] [address] Eugenio Finney Assigned Pediatric 06/19/2005/07 MD David Specialist Provider 420 [facility] 96 [place] [address] Urbano Price Assigned PCP 11/13/20 MD Esteban 5880 [place], [place] [address] Joe Leo MD Physical Medicine and 04/11/21 MD Rehabilitation [address] [place] [address] 297 [place] [address] Joe Leo, Assigned Neuroscience 04/30/21 MD Provider [address] [place] [address] documented as of this encounter
--- OUTSIDE RECORDS SUMMARY | 2022-07-02 21:46 | XMS_ITS | Encounter Summary ---
:2001 Author Organization [facility] Address [address] [place] [address]. [place] [address] Care Team Providers Name Role Phone Julian Spencer MD Unavailable Julian Spencer MD Unavailable Eugenio Finney MD Unavailable [phone] Josh Carrero Primary Care Provider Urbano Price MD Unavailable Joe Leo MD Unavailable Reason for Visit Rehab Therapy Physical Therapy (Routine) - Closed Specialty Diagnoses / Procedures Referred By Contact Refer red To Contact Diagnoses History of fusion of spine for scoliosis Muscle spasm of back Julian Spencer MD [facility] [address] & Physical Therapy - [place], [place] [address] [place] [address] [place] [facility] 20 [place], [place] [address] Phone: Fax: Referral ID Status Reason Start Date Expiration Date Visits Requ ested Visits Authorized [id number] Closed 12/05/2020 12/03/2021 10 10 Encounter Details Date Type Department Care Team Description 04/14/2021 Therapy Visit [facility] Aftercare following surgery of the musculoskeletal system (Primary Dx); Rehabilitation Robert, PT Muscle spasm of back; Services Millie [address] [place] Chronic right-sided low back pain without sciatica [address] [address] Jasielu cristobal [place], [place] [address] Social History Tobacco Use Types [...] Name Priority Date/Time Associated Diagnosis Comme nts MS THERAPEUTIC Routine 04/14/2021 3:27 PM Aftercare following EXERCISES. EA 15 MIN CDT surgery of the musculoskeletal system Muscle spasm of back Chronic right-sided low back pain without sciatica MS ULTRASOUND THERAPY, Routine 04/14/2021 3:27 PM Aftercare fo llowing EA 15 MIN CDT surgery of the musculoskeletal system Muscle spasm of back Chronic right-sided low back pain without sciatica documented in this encounter Visit Diagnoses Diagnosis Aftercare following surgery of the muscu loskeletal system - Primary Aftercare following surgery of the muscu loskeletal system, NEC Muscle spasm of back Other symptoms referable to back Chronic right-sided low back pain withou t sciatica documented in this encounter Care Teams Rf Manager Relationship Specialty Start Date End Date Josh Carrero PCP - General Family Medicine 08/09/[address] [address] Julian Spencer MD Orthopedics 03/08/20 MD Darell [address] [facility] [address] [place] [address] Julian Spencer Assigned Musculoskeletal 05/27/20 MD Darell Provider [address] [place], [place] [address] Eugenio Finney Assigned Pediatric 06/19/2005/07 MD David Specialist Provider 420 [facility] 96 [place] [address] Urbano Price Assigned PCP 11/13/20 MD Esteban [facility] [place] [address] Joe Leo MD Physical Medicine and 04/11/21 MD Rehabilitation 420 [facility] 297 [place] [address] documented as of this encounter
--- OUTSIDE RECORDS SUMMARY | 2022-07-02 21:46 | XMS_ITS | Encounter Summary ---
:2001 Author Organization [place] Address [address] [place] [address] Care Team Providers Name Role Phone Julian Spencer MD Unavailable Julian Spencer MD Unavailable Eugenio Finney MD Unavailable [phone] Josh Carrero Primary Care Provider Urbano Price MD Unavailable Reason for Visit Diagnostic Imaging XR (Routine) - Closed Specialty Diagnoses / Procedures Referred By Contact Refer red To Contact Diagnoses S/P spinal surgery Julian Spencer MD Procedures XR Six Foot Standing Extremities [address] [facility]00 [place], [place] [address] Referral ID Status Reason Start Date Expiration Date Visits Requ ested Visits Authorized [id number] Closed 11/28/2020 11/28/2021 1 1 Encounter Details Date Type Department Care Team Description 12/01/2020 Ancillary Procedure [facility] Julian Spencer Imaging Center Juveay MD Darell [place] [address] [place], [place] 1st Floor [address] [place], [place] [phone] [address] (Work) [phone] Social History Tobacco Use Types Packs/Day Years [...] No substantial global coronal imbalance. Sagittal Vertical [place] (A vertical line drawn from the center [...] No substantial global coronal imbalance. Sagittal Vertical [place] (A vertical line drawn from the center [...] on filedocumented in this encounter Care Teams Roll Forming Supervisor Relationship Specialty Start Date End Date Josh Carrero PCP - General Family Medicine 08/09/20 [place] [address] Julian Spencer MD MD Orthopedics 03/08/[address] [place], [place] [address] [place], [place] [address] Julian Spencer MD Assigned Musculoskeletal 05/27/[address] Provider [place], [place] 48[address] Eugenio Finney Assigned Pediatric 06/19/2005/07 MD David Specialist Provider [address] [address] [facility] 96 [place], [place] [address] Urbano Price, Assigned PCP 11/13/20 2450 [facility] S [place], [place] [address] documented as of this encounter
--- OUTSIDE RECORDS SUMMARY | 2022-07-02 21:46 | XMS_ITS | Encounter Summary ---
:2001 Author Organization [place] Address [address] [place] [address] Care Team Providers Name Role Phone Julian Spencer MD Unavailable Julian Spencer MD Unavailable Eugenio Finney MD Unavailable [phone] Josh Carrero Primary Care Provider Urbano Price [...] filedocumented in this encounter Care Teams Communications Director Relationship Specialty Start Date End Date Josh Carrero PCP - General Family Medicine 08/09/[address] [address] Julian Spencer MD MD Orthopedics 03/08/[address] [place], [place] [address] Julian Spencer MD Assigned Musculoskeletal 05/27/[address] Provider [place], [place] [address] Eugenio Finney Assigned Pediatric 06/19/2005/07 MD David Specialist Provider [address] [place] [address] [facility] 96 [place] [address] Urbano Price, Assigned PCP 11/13/20 [facility] [place] [place] [address] documented as of this encounter
--- OUTSIDE RECORDS SUMMARY | 2022-07-02 21:46 | XMS_ITS | Encounter Summary ---
:2001 Author Organization [place] Address [address] [place] [address]. [place] [address] Care Team Providers Name Role Phone Julian Spencer MD Unavailable Julian Spencer MD Unavailable Eugenio Finney MD Unavailable [phone] Josh Carrero Primary Care Provider Urbano Price MD Unavailable Reason for Visit Rehab Therapy Physical Therapy (Routine) - Closed Specialty Diagnoses / Procedures Referred By Contact Refer red To Contact Diagnoses History of fusion of spine for scoliosis Muscle spasm of back Julian Spencer MD [facility] [address] & Physical Therapy - [place], [place] [address] [place] [address] David Sanderson [address] 20 [place], [place] [phone] Phone: Fax: Referral ID Status Reason Start Date Expiration Date Visits Requ ested Visits Authorized [id number] Closed 12/05/2020 12/03/2021 10 10 Encounter Details Date Type Department Care Team Description 12/12/2020 Therapy Visit [facility] [place], Dulce r ight-sided low back pain without sciatica; Rehabilitation JUDY Jones Aftercare following surgery of the [facility] Services [place] [address] [place] [address] [place] [address] [phone] Social History Tobacco Use Types Packs/Day Years [...] Name Priority Date/Time Associated Diagnosis Comme nts [place] THERAPEUTIC Routine 12/12/2020 9:41 AM Chronic right-sided low EXERCISES. EA 15 MIN CDT back pain without sciatica Aftercare following surgery of the musculoskeletal system documented in this encounter Visit Diagnoses Diagnosis Chronic right-sided low back pain withou t sciatica Aftercare following surgery of the muscu loskeletal system Aftercare following surgery of the [facility] [place], NEC documented in this encounter Care Teams Java Tech Lead Relationship Specialty Start Date End Date Josh Carrero PCP - General Family Medicine 08/09/[address] [address] Julian Spencer MD MD Orthopedics 03/08/[address] [facility] [address] [place], [place] [address] Julian Spencer MD Assigned Musculoskeletal 05/27/20 [address] [facility] [address] Provider [place], [place] 52[address] Eugenio Finney Assigned Pediatric 06/19/2005/07 MD David Specialist Provider 420 [facility] 96 [place], [place] [address] Urbano Price, Assigned PCP 11/13/20 [facility] [place], [place] [address] documented as of this encounter
--- OUTSIDE RECORDS SUMMARY | 2022-07-02 21:46 | XMS_ITS | Encounter Summary ---
:2001 Author Organization [place] Address [address] [place] [address]. [place] [address] Care Team Providers Name Role Phone Julian Spencer MD Unavailable Julian Spencer MD Unavailable Eugenio Finney MD Unavailable [phone] Josh Carrero Primary Care Provider Urbano Price MD Unavailable Encounter Details Date Type Department Care Team Description 12/08/2020 Orders Only [facility] Marip[place] At risk fo r Services - Christian Sheffield MD hemorrhage associated Specialties Service [address] [place] [address] surgery (Primary Line S Dx) [address] [place] [phone] Social History Tobacco Use Types Packs/Day Years [...] Primary documented in this encounter Care Teams Visual Supervisor Relationship Specialty Start Date End Date Josh Carrero PCP - General Family Medicine 08/09/[address] [id number] Julian Spencer MD MD Orthopedics 03/08/[address] [place], [place] [address] [place], [place] [address] Julian Spencer MD Assigned Musculoskeletal 05/27/20 [address] [facility] [address] Provider [place], [place] [phone] Eugenio Finney Assigned Pediatric 06/19/2005/07 MD David Specialist Provider 420 [facility] 96 [place], [place] [phone] Urbano Price, Assigned PCP 11/13/20 [address] [place] [address] documented as of this encounter
--- OUTSIDE RECORDS SUMMARY | 2022-07-02 21:46 | XMS_ITS | Encounter Summary ---
:2001 Author Organization [place] Address 2450 [facility] [place] [address] Care Team Providers Name Role Phone Julian Spencer MD Unavailable Julian Spencer MD Unavailable Eugenio Finney MD Unavailable [phone] Josh Carrero Primary Care Provider Urbano Price MD Unavailable Joe Leo MD Unavailable Reason for Visit Reason Comments Headache Encounter Details Date Type Department Care Team Description 04/18/2021 Emergency [facility] Twin Galvez MD Other chronic back [facility] Emergency [address] [place] [address] [place] pain Department [address] [address] [place] [address] [phone] Social History Tobacco Use Types Packs/Day Years [...] for Dakota Duncan was seen in the [facility] Emergency Department today for back pain and [...] (ATARAX) 25 TAKE ONE TABLET BY 0 / MG tablet MOUTH EVERY DAY NEEDED hydrOXYzine (ATARAX) 50 TAKE ONE TABLET BY 0 /11/2020 MG tablet MOUTH EVERY DAY NEEDED Lidocaine (LIDOCARE) 4 % Place 1-2 patches on 30 patch 3 0 08/15/2020 PatchIndications: Acute skin over painful post-operative pain, area. Leave on for Chronic musculoskeletal 12 hours, then keep pain off for 12 hours. Repeat daily. naloxone (NARCAN) 4 [place] 1 spray (4 mg) 0.2 mL 0 [...] for back painand headache without relief. 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 Twin [...] and Surgical History, and Social History inthe [employer] system. Review of Systems Please see HPI [...] Status --------- ------ CBC with platelets and d...[[id number]] Final result Please view results for these [...] mg Intravenous Given 04/18/211922) Old chart from [facility] reviewed, supported history as above. Labs reviewed [...] Leonor Vera MD Internal Medicine-Pediatrics PGY4 04/18/2021 [facility] EM[facility] This data collected with the Resident working in the Emergency Department. Patient was seen and evaluated by myself and I repeated the history and physical exam with the patient. The plan of care was discussed with them. The ren portions of the note including the entire assessment and plan reflect my d ocumentation. Twin Martinez MD 04/19/21 1727 documented in this encounter Plan of Treatment [...] City/State/ZIP Code Ph[place] [address] Care Lab 2450 [facility], Room M309 documented in this encounter Visit [...] mg (COMPLETED) 1906 (Given - Provider: Donnie Stern RN) 30 mg, Intravenous, ONCE, On Sat04/18/21 at [...] (COMPLETED) 1906 (New Bag - Provider: Donnie Stern RN)2029 (Stopped - Provider: Nettie Cox RN) Intravenous, 1,000 mL, ONCE, at 1,000 mL /hr, Administer over 1 Hours, On Sat04/18/21 at 1840, For 1 dose sodium chloride (PF) 0.9% PF flush 3 mL 1903 (Given - Provider: Donnie Stern RN) 3 mL, Intracatheter, EVERY 8 HOURS, [...] 1847 documented in this encounter Care Teams Behavioral Intervention Specialist Relationship Specialty Start Date End Date Josh Carrero PCP - General Family Medicine 08/09/[address] [phone] Julian Spencer MD Orthopedics 03/08/20 MD Darell [facility] [place] [id number] Julian Spencer Assigned Musculoskeletal 05/27/20 MD Darell Provider [facility] [place] [address]80[address] Eugenio Finney Assigned Pediatric 06/19/2005/07 MD David Specialist Provider 420 [facility] 96 [place], [place] [address] Urbano Price Assigned PCP 11/13/20 MD Esteban 2450 [place], [place] [address] Joe Leo MD Physical Medicine and 04/11/21 Rehabilitation 420 [facility] 297 [place] [address] documented as of this encounter
--- OUTSIDE RECORDS SUMMARY | 2022-07-02 21:46 | XMS_ITS | Encounter Summary ---
:2001 Author Organization [place] Address [address] [place] [address] Care Team Providers Name Role Phone Julian Spencer MD Unavailable Julian Spencer MD Unavailable Eugenio Finney MD Unavailable [phone] Josh Carrero Primary Care Provider Urbano [...] on filedocumented in this encounter Care Teams Concept Artist Relationship Specialty Start Date End Date Josh Carrero PCP - General Family Medicine 08/09/[address] [address] Julian Spencer MD Orthopedics 03/08/20 MD Darell [address] [place] [address] Julian Spencer Assigned Musculoskeletal 05/27/20 MD Darell Provider [address] [place] [address] Eugenio Finney Assigned Pediatric 06/19/2005/07 MD David Specialist Provider 420 [facility] 96 [place] [address] Urbano Price Assigned PCP 11/13/20 MD Esteban 2450 [facility] [address] Joe Leo MD Physical Medicine and 04/11/21 MD Rehabilitation 420 [facility] 297 [place] [address] documented as of this encounter
--- OUTSIDE RECORDS SUMMARY | 2022-07-02 21:46 | XMS_ITS | Encounter Summary ---
:2001 Author Organization [place] Address [address] [place] [address]. [place] [address] Care Team Providers Name Role Phone Julian Spenecr MD Unavailable Julian Spencer MD Unavailable Eugenio Finney MD Unavailable [phone] Josh Carrero Primary Care Provider Urbano Price MD Unavailable Reason for Visit Rehab Therapy Physical Therapy (Routine) - Closed Specialty Diagnoses / Procedures Referred By Contact Refer red To Contact Diagnoses History of fusion of spine for scoliosis Muscle spasm of back Julian Spencer MD [facility] [address] & Physical Therapy - [place], [place] [address] [place] [address] [place] Maria E [facility] [address], [place] [phone] Phone: Fax: Referral ID Status Reason Start Date Expiration Date Visits Requ ested Visits Authorized [id number] Closed 12/05/2020 12/03/2021 10 10 Encounter Details Date Type Department Care Team Description 12/06/2020 Therapy Visit [facility] [place] Julian Spencer MD [address] [place] [address] History of fusion of spine for scoliosis ; [place] [address] [place] [address] Muscle spasm of back; Services Millie Chronic right-sided low back pain without sciatica; [address] [address] Rhiannon jain Aftercare following surgery of the musculoskeletal system [place] [address] Social History Tobacco Use Types Packs/Day [...] by the patient and a parent. No case folder was used. Patient Health History Dakota Casiano [...] Current medications: None. 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 Primary job tasks include: Prolonged sitting. 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 EA 15 MIN CDT back pain without sciatica Aftercare following surgery of the musculoskeletal system documented in this encounter Visit Diagnoses Diagnosis History of fusion of spine for scoliosis Muscle spasm of back Other symptoms referable to back Chronic right-sided low back pain withou t sciatica Aftercare following surgery of the [facility] loskeletal system Aftercare following surgery of the [facility] los[facility] system, NEC documented in this encounter Care Teams Welder Production Line Gas Relationship Specialty Start Date End Date AliseJosh PCP - General Family Medicine 08/09/[address] [address] Julian Spencer MD MD Orthopedics 03/08/[address] [place] [address] Julian Spencer MD Assigned Musculoskeletal 05/27/[address] Provider [place], [place] [address] Eugenio Finney Assigned Pediatric 06/19/2005/07 MD David Specialist Provider [address] [facility] 96 [place], [place] [phone] Urbano Price, Assigned PCP 11/13/20 [facility]0 [address] [place], [place] [address] documented as of this encounter
--- OUTSIDE RECORDS SUMMARY | 2022-07-02 21:46 | XMS_ITS | Encounter Summary ---
:2001 Author Organization [place] Address [address] [place] [address]. [place] [address] Care Team Providers Name Role Phone Julian Spencer MD Unavailable Julian Spencer MD Unavailable Eugenio Finney MD Unavailable [phone] Josh Carrero Primary Care Provider Urbano Price MD Unavailable Reason for Visit Rehab Therapy Physical Therapy (Routine) - Closed Specialty Diagnoses / Procedures Referred By Contact Refer red To Contact Diagnoses History of fusion of spine for scoliosis Muscle spasm of back Julian Spencer MD [facility] [address] & Physical Therapy - [place], [place] [address] [place] [address] David Sanderson [facility] 20 [place], [place] [address] Phone: Fax: Referral ID Status Reason Start Date Expiration Date Visits Requ ested Visits Authorized [id number] Closed 12/05/2020 12/03/2021 10 10 Encounter Details Date Type Department Care Team Description 03/21/2021 Therapy Visit [facility] [place], Aftercare following surgery of the musculoskeletal system (Primary Dx); Rehabilitation JUDY Jones History of fusion of spine for scoliosis ; Services [place] [address] DAVID Chronic right-sided low back pain without sciatica; [address] [place] Jasielu jordon AVJordon [place] [address] [phone] Social History Tobacco Use Types Packs/Day Years [...] 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 She report fair/poor compliance with previously issued [...] Associated Diagnosis Comme nts [place] THERAPEUTIC Routine 03/21/2021 9:55 AM Aftercare following EXERCISES. EA 15 MIN CDT surgery of the musculoskeletal system History of fusion of spine for scolio sis Chronic right-sided low back pain without sciatica Muscle spasm of back documented in this encounter Visit Diagnoses Diagnosis Aftercare following surgery of the muscu loskeletal system - Primary Aftercare [facility], N[facility] History of fusion of spine for scoliosis Chronic right-sided low back pain withou t sciatica Muscle spasm of back Other symptoms referable to back documented in this encounter Care Teams Shoe Cobbler Relationship Specialty Start Date End Date Josh Carrero PCP - General Family Medicine 08/09/[address] [address] Julian Spencer MD MD Orthopedics 03/08/[address] [place], [place] [address] Julian Spencer MD Assigned Musculoskeletal 05/27/[address] Provider [place], [place] [address] Eugenio Finney Assigned Pediatric 06/19/2005/07 MD David Specialist Provider 420 [facility] 96 [place] [address] Urbano Price, Assigned PCP 11/13/20 [facility] [place], [place] [address] documented as of this encounter
--- OUTSIDE RECORDS SUMMARY | 2022-07-02 21:46 | XMS_ITS | Encounter Summary ---
:2001 Author Organization [place] Address [address] [place] [address] Care Team Providers Name Role Phone Julian Spencer MD Unavailable Julian Spencer MD Unavailable Eugenio Finney MD Unavailable [phone] Josh Carrero Primary Care Provider Urbano Price [...] on filedocumented in this encounter Care Teams Lye Machine Operator Relationship Specialty Start Date End Date Josh Carrero PCP - General Family Medicine 08/09/[address] [address] Julian Spencer MD MD Orthopedics 03/08/[address] [place], [place] [phone] Julian Spencer MD Assigned Musculoskeletal 05/27/[address] Provider [place], [place] [phone] Eugenio Finney Assigned Pediatric 06/19/2005/07 MD David Specialist Provider [address] [facility] 96 [place] [address] Urbano Price, Assigned PCP 11/13/20 [facility]0 [address] [place] [address] documented as of this encounter
--- OUTSIDE RECORDS SUMMARY | 2022-07-02 21:47 | XMS_ITS | Encounter Summary ---
:2001 Author Organization [place] Address [facility]0 [place] [place] [address] Care Team Providers Name Role Phone Julian Spencer MD Unavailable Mariposa Atwood MD Unavailable [phone] Julian Spencer MD Unavailable Eugenio Finney MD Unavailable [phone] Josh Carrero Primary Care Provider Reason for Visit Reason Onset Date Comments Clinic Care Coordination - Follow-up 09/01/2020 Encounter Details Date Type Department Care Team Description 09/01/2020 Telephone [facility] Gerardo Stone Car e Coordination Explorer Pediatric RUTH Cardona - Follow- up Specialty Clinic 12th [facility] 2450 [place] [address] Social History Tobacco Use Types [...] with No / Unsure 09/01/2020 7:58 AM FLAG SIGNALER someone who was confirmed or suspected to have Coronavirus / COVID-19? documented as of this encounter Miscellaneous Notes Telephone Encounter - Dulce Stone, RN - 09/01/2020 12:20 PM CST Incoming fax from [facility] approved Oxycodone from 08/31 to 09/30. Additional oxycodone prescriptions will require another PA. Dulce Stone RN on 09/01/2020 at 12:22 PM SIGNALER documented in this encounter Plan of Treatment Not on filedocumented as of this encounter Visit Diagnoses Not on filedocumented in this encounter Additional Health Concerns Infection Onset Date Last Indicated Resolved Time COVID-19 08/18/2020 08/18/2020 09/08/2020 11:39 PM FLAG SIGNALER documented as of this encounter Care Teams Tenter Feeder Relationship Specialty Start Date End Date Josh Carrero PCP - General Family Medicine 08/09/[address] [address] Julian Spencer MD MD Orthopedics 03/08/[address] 00 [place], [place] [address] Mariposa Atwood Assigned PCP 04/29/20 11/12/20 MD Nettie 2450 [facility] [place], [place] [address] Julian Spencer MD Assigned Musculoskeletal 05/27/[address] Provider [place], [place] [address] Eugenio Finney Assigned Pediatric 06/19/2005/07 MD David Specialist Provider 420 [facility] 96 [place], [place] [address] documented as of this encounter
--- OUTSIDE RECORDS SUMMARY | 2022-07-02 21:47 | XMS_ITS | Encounter Summary ---
:2001 Author Organization [place] Address [address] [place] [address] Care Team Providers Name Role Phone Julian Spencer MD Unavailable Mariposa Atwood MD Unavailable [phone] Julian Spencer MD Unavailable Eugenio Finney MD Unavailable [phone] Josh Carrero Primary Care Provider Encounter Details Date Type Department Care Team Description 10/13/2020 [facility] Urbano Price is, unspecified scoliosis type, unspecified spinal region; Procedure [facility] Imaging MD Esteban Neuromuscular scoliosis of thoracolumbar region [address] [place] [id number] Social History Tobacco Use Types Packs/Day Years Used Date Smoking Tobacco: Never Smokeless Tobacco: Never Alcohol Use Standard Drinks/Week Comments Not Currently 0 (1 standard drink = 0.6 oz pure alcoho l) Sex Assigned at Date Recorded Female 12/02/2020 1:42 PM CDT COVID-19 Exposure Response Date Recorded In the last month, have you been in contact with No / Unsure 10/13/2020 1:38 PM HEALTH AND SAFETY TRAINER someone who was confirmed or suspected to have Coronavirus / COVID-19? documented as of this encounter Plan of Treatment Not on filedocumented as of this encounter Procedures Procedure Name Priority Date/Time Associated Diagnosis Comme nts DX Routine 10/13/2020 2:18 PM Scoliosis, unspecified Results for this HIP/PELVIS/SPINE HEALTH AND SAFETY TRAINER scoliosis type, procedur e are in unspecified spinal the resul ts region section. Neuromuscular scoliosis of thoracolumbar region documented in this encounter Results Dexa hip/pelvis/spine (10/13/2020 2:18 PM HEALTH AND SAFETY TRAINER) Anatomical Region Laterality Modality Dexa Bone Mineral Density Specimen (Source) Anatomical Location Collection Method / Collectio n Time Received Time / Laterality Volume Impressions 10/13/2020 2:44 PM HEALTH AND SAFETY TRAINER IMPRESSION: Bone mineral density within normal limit [...] BRIGHT ZHENG MD Narrative 10/13/2020 2:44 PM HEALTH AND SAFETY TRAINER INDICATION: Scoliosis COMPARISON: None TECHNICAL: The patient was scanned using a [employer], with pediatric software. Age: 20 years 2 [...] TECHNICAL: The patient was scanned using a [employer], with pediatric software. Age: 20 years 2 [...] scoliosis documented in this encounter Care Teams Science Consultant Relationship Specialty Start Date End Date Josh Carrero PCP - General Family Medicine 08/09/[address] [address] Julian Spencer MD MD Orthopedics 03/08/[address] [place], [place] [address] Mariposa Atwood Assigned PCP 04/29/20 11/12/20 MD Nettie 3620 [place], [place] [phone] Julian Spencer MD Assigned Musculoskeletal 05/27/[address] Provider [place], [place] [phone] Eugenio Finney Assigned Pediatric 06/19/2005/07 MD David Specialist Provider [address] [place] [address] documented as of this encounter
--- OUTSIDE RECORDS SUMMARY | 2022-07-02 21:47 | XMS_ITS | Encounter Summary ---
:2000 Author Organization [facility] Address [address] [facility] [place] [address] Care Team Providers Name Role Phone Julian Spencer MD Unavailable Mariposa Atwood MD Unavailable [phone] Julian Spencer MD Unavailable Eugenio Finney MD Unavailable [phone] Josh Carrero Primary Care Provider Reason for Visit Reason Comments RECHECK Bone healing concerns Encounter Details Date Type Department Care Team Description 10/13/2020 Office Visit [facility] Dash Price [facility] ed osteoporosis without current pathological fracture (Primary Dx); [facility] Pediatric MD Esteban Neuromuscular scoliosis of thoracolumbar region; [facility]ty [facility] [address] [facility] S/P spinal fusion; [facility] [address] Pseudarthrosis following spinal fusion; [place] History of inhaled steroid t herapy; [facility] [address] [address] Pancreatic insufficiency; [place], [place] [phone] Excessive me nstruation at puberty; [id number] (Work) POTS (postural orthostatic tachycardia s yndrome) [phone] Social History Tobacco Use Types Packs/Day Years [...] Comments Blood Pressure 112/73 10/13/2020 2:33 PM CHARGING PLUG PLACER Pulse 72 10/13/2020 2:33 PM CHARGING PLUG PLACER Temperature - - Respiratory Rate - - Oxygen Saturation - - Inhaled Oxygen Concentration - - Weight 55.6 kg (122 lb 9.2 oz) 10/13/2020 2:33 PM CHARGING PLUG PLACER Height 161.1 cm (5' 3.43) 10/13/2020 2:33 PM CHARGING PLUG PLACER Body Mass Index 21.42 10/13/2020 2:33 PM CHARGING PLUG PLACER documented in this encounter Patient Instructions Patient InstructionsMagdalene Baron - 10/13/2020 2:45 PM CST Thank you for choosing [email or web address]. It was a pleasure to see you today. Providers: [place]: Ramon Price MD PhD Keily Oneill [facility] Care Coordinators (non urgent calls) Mon- Fri: Catalina Tay MS RN [phone] [place] JAMESN RN N [phone] Warehouse Forklift Operator fax: [phone] Growth Hormone: Sharda John CMA [phone] Please leave a message on one line only. Calls will be returned as soon as possible once your physician has reviewed the results or questions. Medication renewal requests must be faxed to the main office by your pharmacy. Allow 3-4 days for completion. Mailing Address: Pediatric Endocrinology [address] [address] Test results may be available via Totango prior to your provider reviewing them. Your provider will review results as soon as possible once all labs are resulted. Abnormal results will be communicated to you via MyChart, telephone call or letter. Please allow 2 -3 weeks for processing/interpretation of most lab work. If you live in the [facility] area and need labs, we request that the labs be done at an [facility] facility. [facility] locations are listed on the [email or web address] website. Please call that site for a lab time. For urgent issues that cannot wait until the next business day, call [phone] and ask for the Pediatric Auto Clutch Rebuilder manager administration. Scheduling: Pediatric Call Center: [phone] for Explorer - 12th floor [facility] - 3rd floor [address] [facility] 9th floor [facility] [phone] (for stimulation tests) Radiology/ [phone] [employer] S[employer] Cutter Services: [phone] Please sign up for [employer] for easy and HIPAA compliant confidential communication. Sign up at the clinic net front end developer or go to [email or web address] Patients must be seen in clinic annually [...] update you as further research becomes available. MD Instructions: We will check labs today to see if we can understand if there is a particular reason why Dakota's bones are not healing well. Depending upon these results, we will discuss whether treatment with parathyroid hormone or other therapy might be beneficial. GING PLUG PLACER documented in this encounter Progress Notes Dash Price MD - 10/13/2020 2:45 PM CST Pediatric Endocrinology Initial Consultation Patient: Dakota Casiano Date of : 2000 Age: 20year 2month old Date of Visit: Oct 13, [address] Spencer: I had the pleasure of seeing your patient, Dakota Casiano in the Pediatric Endocrinology Clinic, [facility], on Oct 13, 2020 for initial consultation [...] Medium Added automatically from request for surgery [id number] ??? Painful orthopaedic hardware (H) 07/21/2020 Priority: Medium Added automatically from request for surgery [id number] ??? 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 She is living [...] ??? naloxone (NARCAN) 4 MG/0.1ML nasal spray [place] 1 spray (4 mg) into one nostril [...] -0.34) based on CDC (Girls, 2-20 Years) Njnrasp-fno-wlv data based on Stature recorded on 10/13/2020. Weight: 55.6 kg (actual weight), 41 %ile (Z= -0.22) based on CDC (Girls, 2-20 Years) bvqnxi-spn-mrj data using vitals from 10/13/2020. BMI: Body [...] Urine g/g Cr 0.08 g/g Cr C-Telopeptide, Knjh-Ntkbd-Oajmge Status: Abnormal Result Value Ref Range C-Telopept B-X-Linked 675 (H) 64 - 640 pg/mL Creatinine urine calculation only Status: None Result Value Ref Range Creatinine Urine 87 mg/dL Results for orders placed or performed in visit on 10/13/20 Dexa hip/pelvis/spine Status: None Narrative INDICATION: Scoliosis COMPARISON: None TECHNICAL: The patient was scanned using a Luxanova, with pediatric software. Age: 20 years 2 [...] random urine with Creat Ratio ??? C-Telopeptide, Iuxm-Ghbni-Gvgqdi ??? Creatinine urine calculation only RESULTS INTERPRETATION: [...] clinical encounter documented in this note. Dash Price MD, PhD Professor Pediatric Endocrinology [facility] CC Patient Care Team: Josh Carrero as PCP - General (Family Medicine) Julian Spencer MD as MD (Orthopedics) Mariposa Atwood MD as Assigned PCP Julian Spencer MD as Assigned Musculoskeletal Provider Eugenio Finney MD as Assigned Pediatric Specialist Provider Dakota Casiano [address] [facility] [id number] documented in this encounter Nursing Notes Magdalene Baron - 10/13/2020 2:[address] [facility] [[id number]] Chief Complaint Patient presents with ??? RECHECK [...] 161.1cm, 161.2cm, Ave: 161.1cm Magdalene Baron, JAQUELINE GING PLUG PLACER documented in this encounter Miscellaneous Notes Addendum Note - Dash Price MD - 10/13/2020 2:45 PM CHARGING PLUG PLACER Addended by: DASH PRICE on: 11/06/2020 07:56 PM Modules accepted: Orders documented in this encounter Plan of Treatment Not on filedocumented as of this encounter Procedures Procedure Name Priority Date/Time Associated Diagnosis Comme nts C-TELOPEPTIDE, Routine 10/13/2020 3:50 Neuromuscular Results f or this AXZK-OIMHQ-MKRJKM PM CHARGING PLUG PLACER scoliosis of procedure are in thoracolumbar region the res ults section. 25 HYDROXYVITAMIN D2 & Routine 10/13/2020 3:50 Neuromuscular R esults for this D3 PM CHARGING PLUG PLACER scoliosis of procedure are i n thoracolumbar re gion the results Localized section. osteoporosis without current pathological fracture OSTEOCALCIN Routine 10/13/2020 3:50 Neuromuscular Results for this PM CHARGING PLUG PLACER scoliosis of procedure are i n thoracolumbar region the res ults section. CBC WITH PLATELETS & Routine 10/13/2020 3:50 Neuromuscular Res ults for this DIFFERENTIAL PM CHARGING PLUG PLACER scoliosis of procedure are i n thoracolumbar re gion the results Localized section. osteoporosis without current pathological fracture TSH Routine 10/13/2020 3:50 Neuromuscular Results for this PM CHARGING PLUG PLACER scoliosis of procedure are i n thoracolumbar re gion the results Localized section. osteoporosis without current pathological fracture T4 FREE Routine 10/13/2020 3:50 Neuromuscular Results for this PM CHARGING PLUG PLACER scoliosis of procedure are i n thoracolumbar re gion the results Localized section. osteoporosis without current pathological fracture PHOSPHORUS Routine 10/13/2020 3:50 Neuromuscular Results for this PM CHARGING PLUG PLACER scoliosis of procedure are i n thoracolumbar region the res ults section. PARATHYROID HORMONE Routine 10/13/2020 3:50 Neuromuscular Resu lts for this INTACT PM CHARGING PLUG PLACER scoliosis of procedure are i n thoracolumbar region the res ults section. MAGNESIUM Routine 10/13/2020 3:50 Neuromuscular Results for this PM CHARGING PLUG PLACER scoliosis of procedure are i n thoracolumbar region the res ults section. COMPREHENSIVE Routine 10/13/2020 3:50 Neuromuscular Results fo r this METABOLIC PANEL PM CHARGING PLUG PLACER scoliosis of procedure ar e in thoracolumbar re gion the results Localized section. osteoporosis without current pathological fracture BONE SPECIFIC ALK Routine 10/13/2020 3:50 Neuromuscular Result s for this PHOSPHATASE PM CHARGING PLUG PLACER scoliosis of procedure are i n thoracolumbar region the res ults section. N TELOPEPTIDE CROSS Routine 10/13/2020 3:45 Neuromuscular Resu lts for this LINKED URINE PM CHARGING PLUG PLACER scoliosis of procedure are i n thoracolumbar region the res ults section. CREATININE URINE Routine 10/13/2020 3:45 Localized Results for this CALCULATION ONLY (LAB PM CHARGING PLUG PLACER osteoporosis withou t procedure are in ONLY) current pathological the res ults fracture section. CALCIUM RANDOM URINE Routine 10/13/2020 3:45 Localized Resu lts for this PM CHARGING PLUG PLACER osteoporosis without procedu re are in current pathological the res ults fracture section. documented in this encounter Results (ABNORMAL) C-Telopeptide, Odki-Zuxhg-Mljkfk (10/13/2020 3:50 PM CHARGING PLUG PLACER) P athologist Signature C-Telopept 675 (H) 64 - 640 10/15/2020 [facility] B-X-Linked pg/mL 5:27 PM [facility] Comment: (Note) Postmenopausal Females: 104-1008 pg/mL REFERENCE INTERVAL: C-Telopeptide, Beta- Cross-Linked, Serum Access complete set of age- and/or gende r-specific reference intervals for this test in the [facility] Test Directory ([employer]). Performed By: [facility] [address] [place] [address] Web Site Specialist: Brandi Dooley MD Specimen Anatomical Collection Method Collection Time Receive d Time (Source) Location / / Volume Laterality Blood specimen 10/13/2020 3:50 PM 021 3:55 (specimen) CHARGING PLUG PLACER PM CHARGING PLUG PLACER Ed Bartholomew MD LAB - BLOOD ORDERABLES Performing Organization Address City/State/ZIP Code Phon e Number [facility] [address] [place] [address] [facility] CBC with platelets differential (10/13/2020 3:50 PM CHARGING PLUG PLACER) [facility] gist Method Time Signature WBC 8.7 4.0 - 10/13/2020 [facility] 11.0 4:07 PM [facility] 10e9/L [facility] RBC Count 4.45 3.8 - 5.2 10/13/2020 [facility] 10e12/L 4:07 PM [facility] Hemoglobin 12.8 11.7 - 10/13/2020 [facility] 15.7 g/dL 4:07 PM [facility] Hematocrit 39.9 35.0 - 10/13/2020 [facility] 47.0 % 4:07 PM [facility] MCV 90 78 - 100 10/13/2020 [facility] fl 4:07 PM [facility] MCH 28.8 26.5 - 10/13/2020 [facility] 33.0 pg 4:07 PM [facility] MCHC 32.1 31.5 - 10/13/2020 [facility] 36.5 g/dL 4:07 PM [facility] RDW 12.6 10.0 - 10/13/2020 [facility] 15.0 % 4:07 PM [facility] Platelet Count 330 150 - 450 10/13/2020 [facility] 10e9/L 4:07 PM [facility] Diff Method Automated 10/13/2020 [facility] Method 4:07 PM [facility] % Neutrophils 52.0 % 10/13/2020 [facility] 4:07 PM [facility] % Lymphocytes 39.4 % 10/13/2020 [facility] 4:07 PM [facility] % Monocytes 6.7 % 10/13/2020 [facility] 4:07 PM [facility] % Eosinophils 1.2 % 10/13/2020 [facility] 4:07 PM [facility] % Basophils 0.6 % 10/13/2020 [facility] 4:07 PM [facility] % Immature 0.1 % 10/13/2020 [facility] Granulocytes 4:07 PM [facility] Nucleated RBCs 0 0 /100 10/13/2020 [facility] 4:07 PM [facility] Absolute 4.5 1.6 - 8.3 10/13/2020 [facility] Neutrophil 10e9/L 4:07 PM [facility] Absolute 3.4 0.8 - 5.3 10/13/2020 [facility] Lymphocytes 10e9/L 4:07 PM [facility] Absolute 0.6 0.0 - 1.3 10/13/2020 [facility] Monocytes 10e9/L 4:07 PM [facility] Absolute 0.1 0.0 - 0.7 10/13/2020 [facility] Eosinophils 10e9/L 4:07 PM [facility] Absolute 0.1 0.0 - 0.2 10/13/2020 [facility] Basophils 10e9/L 4:07 PM [facility] Abs Immature 0.0 0 - 0.4 10/13/2020 [facility] Granulocytes 10e9/L 4:07 PM [facility] Absolute 0.0 10/13/2020 [facility] Nucleated RBC 4:07 PM [facility] Specimen Anatomical Collection Method Collection Time Receive d Time (Source) Location / / Volume Laterality Blood specimen 10/13/2020 3:50 PM 021 3:55 (specimen) CHARGING PLUG PLACER PM CHARGING PLUG PLACER Dash Price MD LAB - BLOOD ORDERABLES Performing Organization Address City/State/ZIP Code Phon e Number [address] [address] [facility] T4 free (10/13/2020 3:50 PM CHARGING PLUG PLACER) athologist Signature T4 Free 0.96 0.76 - 1.46 10/13/2020 [facility] ng/dL 4:40 PM [facility] Specimen Anatomical Collection Method Collection Time Receive d Time (Source) Location / / Volume Laterality Blood specimen 10/13/2020 3:50 PM 021 3:55 (specimen) CHARGING PLUG PLACER PM CHARGING PLUG PLACER Dash Price MD LAB - BLOOD ORDERABLES Performing Organization Address City/State/ZIP Code Phon e Number [address] [address] [facility] TSH (10/13/2020 3:50 PM CHARGING PLUG PLACER) athologist Signature TSH 1.64 0.40 - 4.00 10/13/2020 [facility] mU/L 4:50 PM [facility] Specimen Anatomical Collection Method Collection Time Receive d Time (Source) Location / / Volume Laterality Blood specimen 10/13/2020 3:50 PM 021 3:55 (specimen) CHARGING PLUG PLACER PM CHARGING PLUG PLACER Dash Price MD LAB - BLOOD ORDERABLES Performing Organization Address City/State/ZIP Code Phon e Number [address] [address] [facility] Vitamin D2 + D3, 25 Hydroxy (10/13/2020 3:50 PM CHARGING PLUG PLACER) athologist Signature 25 [place] Vit D2 <5 ug/L 10/18/2020 [facility] 2:52 PM [facility] 25 [place] Vit D3 50 ug/L 10/18/2020 [facility] 2:52 PM [facility] 25 [place] Vit D <55 20 - 75 10/18/2020 [facility] total ug/L 2:52 PM [facility] Comment: Season, race, dietary intake, and treatm ent affect the concentration of 76-kgqqutg-Xebielw D. Values may decreas e during winter months and increase during summer months. Values 20-29 ug/L may indicate Vitamin D insufficiency and values <20 ug/L may indicate Vitamin D deficiency. This test was developed and its performa nce characteristics determined by the [facility], Special [facility] Laboratory. It has not [...] specimen 10/13/2020 3:50 PM 021 3:55 (specimen) CHARGING PLUG PLACER PM CHARGING PLUG PLACER Dash Price MD LAB - BLOOD ORDERABLES Performing Organization Address City/State/ZIP Code Phon e Number [facility] [address] [place], [place] [id number] [place] [address] Comprehensive metabolic panel (10/13/2020 3:50 PM CHARGING PLUG PLACER) athologist Signature Sodium 138 133 - 144 10/13/2020 [facility] mmol/L 4:27 PM [facility] Potassium 3.6 3.4 - 5.3 10/13/2020 [facility] mmol/L 4:27 PM [facility] Chloride 105 96 - 110 10/13/2020 [facility] mmol/L 4:27 PM [facility] Carbon Dioxide 27 20 - 32 10/13/2020 [facility] mmol/L 4:40 PM [facility] Anion Gap 6 3 - 14 10/13/2020 [facility] mmol/L 4:40 PM [facility] Glucose 81 70 - 99 10/13/2020 [facility] mg/dL 4:40 PM [facility] Urea Nitrogen 9 7 - 30 10/13/2020 [facility] mg/dL 4:40 PM [facility] Creatinine 0.71 0.50 - 10/13/2020 [facility] 1.00 mg/dL 4:40 PM [facility] GFR Estimate >90 >60 10/13/2020 [facility] mL/min/{1. 4:40 PM [facility] 73_m2} [facility] Comment: Non GFR Calc Starting 07/22/2018, serum creatinine ba sed estimated GFR (eGFR) will be calculated using the Chronic Kidney Dise ase Epidemiology Collaboration (CKD-EPI) equation. GFR Estimate If >90 >60 mL/min/{1.73_m2} 10/13/2020 4: 40 PM [facility] Black [facility] Comment: GFR Calc Starting 07/22/2018, serum creatinine ba sed estimated GFR (eGFR) will be calculated using the Chronic Kidney Dise ase Epidemiology Collaboration (CKD-EPI) equation. Calcium 9.1 8.5 - 10.1 mg/dL 10/13/2020 4:40 PM [facility] Bilirubin Total 0.5 0.2 - 1.3 mg/dL 10/13/2020 4:40 PM [facility] Albumin 4.5 3.4 - 5.0 g/dL 10/13/2020 4:40 PM [facility] Protein Total 8.3 6.8 - 8.8 g/dL 10/13/2020 4:40 PM [facility] Alkaline Phosphatase 117 40 - 150 U/L 10/13/2020 4:40 PM [facility] ALT 17 0 - 50 U/L 10/13/2020 4:40 PM [facility] AST 12 0 - 35 U/L 10/13/2020 4:40 PM [facility] Specimen Anatomical Collection Method Collection Time Receive d Time (Source) Location / / Volume Laterality Blood specimen 10/13/2020 3:50 PM 021 3:55 (specimen) CHARGING PLUG PLACER PM CHARGING PLUG PLACER Dash Price MD LAB - BLOOD ORDERABLES Performing Organization Address City/State/ZIP Code Phon e Number [facility] [address] [place] [address] [facility] Osteocalcin (10/13/2020 3:50 PM CHARGING PLUG PLACER) athologist Signature Osteocalcin 41 11 - 50 10/15/2020 [facility] ng/mL 5:26 PM [facility] Comment: (Note) INTERPRETIVE INFORMATION: Osteocalcin by ECIA In patients with renal failure the osteo calcin result can be elevated, both directly, due to impai red clearance and indirectly, due to renal osteodystrophy. Access complete set of age- and/or gende r-specific reference intervals for this test in the [facility] Laboratory Test Directory ([email or web address]). Performed By: [facility] [address] [place] [address] Web Site Specialist: Brandi Dooley MD Specimen Anatomical Collection Method Collection Time Receive d Time (Source) Location / / Volume Laterality Blood specimen 10/13/2020 3:50 PM 021 3:55 (specimen) CHARGING PLUG PLACER PM CHARGING PLUG PLACER Ed Bartholomew MD LAB - BLOOD ORDERABLES Performing Organization Address City/[facility]/ZIP Code Phon e Number [address] Bone specific alk phosphatase (10/13/2020 3:50 PM CHARGING PLUG PLACER) athologist Signature Bone Spec Alk 22.9 ug/L 10/14/2020 [facility] Phosphatase 5:10 PM CHARGING PLUG PLACER [facility] Comment: (Note) INTERPRETIVE INFORMATION: Bone Specific [...] specific alk burt phosphatase result. Performed By: [facility] [address] [place] [address] Web Site Specialist: Brandi Dooley MD Specimen Anatomical Collection Method Collection Time Receive d Time (Source) Location / / Volume Laterality Blood specimen 10/13/2020 3:50 PM 021 3:55 (specimen) CHARGING PLUG PLACER PM CHARGING PLUG PLACER dE Bartholomew MD LAB - BLOOD ORDERABLES Performing Organization Address City/[facility]/ZIP Code Phon e Number [id number] [place] [address] Parathyroid Hormone Intact (10/13/2020 3:50 PM CHARGING PLUG PLACER) athologist Signature Parathyroid 30 18 - 80 10/14/2020 [facility] Hormone Intact pg/mL 1:47 AM CHARGING PLUG PLACER [facility] Specimen Anatomical Collection Method Collection Time Receive d Time (Source) Location / / Volume Laterality Blood specimen 10/13/2020 3:50 PM 021 3:55 (specimen) CHARGING PLUG PLACER PM CHARGING PLUG PLACER Ed Bartholomew MD LAB - BLOOD ORDERABLES Performing Organization Address City/State/ZIP Code Phon e Number [facility] [address] [place] [address] [place] Phosphorus (10/13/2020 3:50 PM CHARGING PLUG PLACER) athologist Signature Phosphorus 4.5 2.5 - 4.5 10/13/2020 [facility] mg/dL 4:40 PM CHARGING PLUG PLACER [facility] Specimen Anatomical Collection Method Collection Time Receive d Time (Source) Location / / Volume Laterality Blood specimen 10/13/2020 3:50 PM 021 3:55 (specimen) CHARGING PLUG PLACER PM CHARGING PLUG PLACER Ed Bartholomew MD LAB - BLOOD ORDERABLES Performing Organization Address City/State/ZIP Code Phon e Number [address] [address] [facility] Magnesium (10/13/2020 3:50 PM CHARGING PLUG PLACER) athologist Signature Magnesium 2.2 1.6 - 2.3 10/13/2020 [facility] mg/dL 4:40 PM [facility] Specimen Anatomical Collection Method Collection Time Receive d Time (Source) Location / / Volume Laterality Blood specimen 10/13/2020 3:50 PM 021 3:55 (specimen) CHARGING PLUG PLACER PM CHARGING PLUG PLACER Ed Bartholomew MD LAB - BLOOD ORDERABLES Performing Organization Address City/State/ZIP Code Phon e Number [address] [address] [facility] Creatinine urine calculation only (10/13/2020 3:45 PM CHARGING PLUG PLACER) athologist Signature Creatinine 87 mg/dL 10/13/2020 [place] Urine 4:41 PM CHARGING PLUG PLACER [facility] Specimen Anatomical Collection Method Collection Time Receive d Time (Source) Location / / Volume Laterality 10/13/2020 3:45 PM 3:55 CHARGING PLUG PLACER PM CHARGING PLUG PLACER Ed Bartholomew MD LAB - URINE ORDERABLES Performing Organization Address City/State/ZIP Code Phon e Number [facility] [address] [place] [address] [facility] [address] [address], U [phone] Calcium random urine with Creat Ratio (10/13/2020 3:45 PM CHARGING PLUG PLACER) athologist Signature Calcium Urine 7.0 mg/dL 10/13/2020 [facility] mg/dL 4:37 PM [facility] Calcium Urine 0.08 g/g Cr 10/13/2020 [place] g/g Cr 4:41 PM [facility] Comment: Calcium/creatinine ratio is only a scree jamila test for hypercalcuria and has only been validated using first morning voids. ??The 24 hour urine for calcium is more definitive and preferred. Specimen Anatomical Collection Method Collection Time Receive d Time (Source) Location / / Volume Laterality Urine specimen 10/13/2020 3:45 PM 021 3:55 (specimen) CHARGING PLUG PLACER PM CHARGING PLUG PLACER Dash Price MD LAB - URINE ORDERABLES Performing Organization Address City/State/ZIP Code Phon e Number [facility] [address] [address] [place] [address] [place] [address] [facility] [address] [address], U [phone] N telopeptide cross linked urine (10/13/2020 3:45 PM CHARGING PLUG PLACER) athologist Signature N-Telopeptide 41 BCE/mM 10/15/2020 [facility] X-Link Urine 12:27 AM CHARGING PLUG PLACER [facility] Comment: (Note) Normal adult female: ??Premenopausal: [...] reference intervals for this test in the [facility] Test Directory ([employer]). Creatinine Ur/Vol 90 mg/dL 10/15/2020 12:27 AM CS T [facility] Comment: (Note) Performed By: [facility] [address] [place] [address] Web Site Specialist: Brandi Dooley MD Specimen Anatomical Collection Method Collection Time Receive d Time (Source) Location / / Volume Laterality Urine specimen 10/13/2020 3:45 PM 021 3:55 (specimen) CHARGING PLUG PLACER PM CHARGING PLUG PLACER Ed Bartholomew MD LAB - URINE ORDERABLES Performing Organization Address City/State/ZIP Code Phon e Number [place] [id number] [place] [address] [facility] documented in this encounter Visit Diagnoses Diagnosis [...] unspecified documented in this encounter Care Teams Surveillance Specialist Relationship Specialty Start Date End Date Josh Carrero PCP - General Family Medicine 08/09/[address] [address] Julian [place] MD MD Orthopedics 03/08/[address] [place] [address] Mariposa Atwood Assigned PCP 04/29/20 11/12/20 MD Nettie [address] [place], [place] [address] Julian [place] MD Assigned Musculoskeletal 05/27/20 [address] [facility] [address] Provider [place], [place] [address] Eugenio Finney Assigned Pediatric 06/19/2005/07 MD David Specialist Provider [address] [place] [address] documented as of this encounter
--- OUTSIDE RECORDS SUMMARY | 2022-07-02 21:47 | XMS_ITS | Encounter Summary ---
:2001 Author Organization [place] Address [address] [place] [address]. [place] [address] Care Team Providers Name Role Phone Julian [place] MD Unavailable Julian [place] MD Unavailable Eugenio Finney MD Unavailable [phone] Josh Carrero Primary Care Provider Urbano Price MD Unavailable Encounter Details Date Type Department Care Team Description 11/23/2020 Care Coordination [facility] Mariposa Atwood Pediatric MD [facility] [address] [place] [address] [facility] [phone] (Wo rk) [facility] [place] [facility] [address] [address] Social History Tobacco Use Types [...] CDT Emailed Dakota's mother and copied Drs. Luis: Jina??platelet tests are back.?? They did not [...] on filedocumented in this encounter Care Teams Electric Sign Wirer Relationship Specialty Start Date End Date Josh Carrero PCP - General Family Medicine 08/09/20 [place] [id number] Julian [place] MD MD Orthopedics 03/08/[address] [place], [place] 98[address]84 Julian [place] MD Assigned Musculoskeletal 05/27/[address] Provider [place], [place] 3[address] Eugenio Finney Assigned Pediatric 06/19/2005/07 MD David Specialist Provider [address] [facility] [address] [facility] 96 [place], [place] [address] Urbano Price, Assigned PCP 11/13/20 [facility] [place], [place] [address] documented as of this encounter
--- OUTSIDE RECORDS SUMMARY | 2022-07-02 21:47 | XMS_ITS | Encounter Summary ---
:2001 Author Organization [place] Address [address] [place] [address] Care Team Providers Name Role Phone Julian [place] MD Unavailable Mariposa Atwood MD Unavailable [phone] Julian [place] MD Unavailable Eugenio Finney MD Unavailable [phone] Josh Carrero Primary Care Provider Reason for Referral Diagnostic Imaging XR (Routine) - Closed Specialty Diagnoses / Procedures Referred By Contact Refer red To Contact Diagnoses S/P spinal Julian Major MD Procedures XR Spine Complete Scoliosis 2 Views [address] [place] [address] 4 Referral ID Status Reason Start Date Expiration Date Visits Requ ested Visits Authorized [id number] Closed 09/16/2020 09/16/2021 1 1 EL SETTER Diagnostic Imaging XR (Routine) - Closed Specialty Diagnoses / Procedures Referred By Contact Refer red To Contact Diagnoses S/P spinal Julian Major MD Procedures XR Six Foot Standing Extremities [address] [place], [place] [address] Referral ID Status Reason Start Date Expiration Date Visits Requ ested Visits Authorized [id number] Closed 09/16/2020 09/16/2021 1 1 EL SETTER Encounter Details Date Type Department Care Team Description 09/16/2020 Orders Only [facility] Julian [place] S/P spinal surgery Orthopedic Clinic MD Darell (Primary Dx) [address] 4[address] [place] [address] Social History Tobacco Use Types Packs/Day [...] with No / Unsure 09/01/2020 7:58 AM TEASEL SETTER someone who was confirmed or suspected to have Coronavirus / COVID-19? documented as of this encounter Plan of Treatment Not on filedocumented as of this encounter Procedures Procedure Name Priority Date/Time Associated Comments Diagnosis XR SPINE COMPLETE Routine 09/22/2020 8:26 AM S/P spinal surger y Results for this SCOLIOSIS 2 VIEWS TEASEL SETTER procedure are in the results section. XR SIX FOOT STANDING Routine 09/22/2020 8:26 AM S/P spinal teresa jenaro Results for this EXTREMITIES TEASEL SETTER procedure are i n the results section. documented in this encounter Results XR Spine Complete Scoliosis 2 Views (09/22/2020 8:26 AM TEASEL SETTER) Anatomical Region Laterality Modality Spine Computed Radiography Specimen (Source) Anatomical Location Collection Method / Collectio n Time Received Time / Laterality Volume Impressions 09/26/2020 8:59 AM TEASEL SETTER Impression: 1. Post spinal instrumentation from T4 t o L4. Intact hardware. 2. Mild convexed right curvature of the thoracolumbar/lumbar spine. 3. No ??global sagittal imbalance. 4. Weight bearing axis as detailed above . 5. Left lower extremity longer than righ t lower extremity. CHATO OSMAN MD Narrative 09/26/2020 8:59 AM TEASEL SETTER Exam: Full body radiographs using EOS [...] No substantial global coronal imbalance. Sagittal Vertical [place] (A vertical line drawn from the center [...] No substantial global coronal imbalance. Sagittal Vertical [place] (A vertical line drawn from the center [...] Six Foot Standing Extremities (09/22/2020 8:26 AM TEASEL SETTER) Anatomical Region Laterality Modality Lower Extremity Computed Radiography Specimen (Source) Anatomical Location Collection Method / Collectio n Time Received Time / Laterality Volume Impressions 09/26/2020 8:59 AM TEASEL SETTER Impression: 1. Post spinal instrumentation from T4 t o L4. Intact hardware. 2. Mild convexed right curvature of the thoracolumbar/lumbar spine. 3. No ??global sagittal imbalance. 4. Weight bearing axis as detailed above . 5. Left lower extremity longer than righ t lower extremity. CHATO OSMAN MD Narrative 09/26/2020 8:59 AM TEASEL SETTER Exam: Full body radiographs using EOS [...] No substantial global coronal imbalance. Sagittal Vertical [place] (A vertical line drawn from the center [...] No substantial global coronal imbalance. Sagittal Vertical [place] (A vertical line drawn from the center [...] in this encounter Care Teams Director Of Operations For Therapy Relationship Specialty Start Date End Date Josh Carrero PCP - General Family Medicine 08/09/[address] [address] Julian [place] MD MD Orthopedics 03/08/[address] [place], [place] [address] Mariposa Atwood Assigned PCP 04/29/20 11/12/20 MD Nettie 2450 [place], [place] [address] Julian [place] MD Assigned Musculoskeletal 05/27/[address] [place] [address] Eugenio Finney Assigned Pediatric 06/19/2005/07 MD David Specialist Provider [address] [place] [address] 96 [place], [place] [address] documented as of this encounter
--- OUTSIDE RECORDS SUMMARY | 2022-07-02 21:47 | XMS_ITS | Encounter Summary ---
:2001 Author Organization [place] Address [address] [place] [address] Care Team Providers Name Role Phone Julian [place] MD Unavailable Mariposa Atwood MD Unavailable [phone] Julian [place] MD Unavailable Eugenio Finney MD Unavailable [phone] Josh Carrero Primary Care Provider Encounter [...] with No / Unsure 09/01/2020 7:58 AM ORGAN PIPE FINISHER someone who was confirmed or suspected to have Coronavirus / COVID-19? documented as of this encounter Plan of Treatment Not on filedocumented as of this encounter Visit Diagnoses Not on filedocumented in this encounter Additional Health Concerns Infection Onset Date Last Indicated Resolved Time COVID-19 08/18/2020 08/18/2020 09/08/2020 11:39 PM ORGAN PIPE FINISHER documented as of this encounter Care Teams Fermenting Cellars Receiver Relationship Specialty Start Date End Date Josh Carrero PCP - General Family Medicine 08/09/20 [place] [address] [place] [address] Julian [place] MD MD Orthopedics 03/08/[address] [place], [place] [address] [place], [place] [phone] Mariposa Atwood Assigned PCP 04/29/20 11/12/20 MD Nettie 2450 [facility] S [place], [place] [phone] Julian [place] MD Assigned Musculoskeletal 05/27/[address] [place], [place] [address] Provider [place], [place] [phone] Eugenio Finney Assigned Pediatric 06/19/2005/07 MD David Specialist Provider [address] [place] [address] 96 [place], [place] [address] documented as of this encounter
--- OUTSIDE RECORDS SUMMARY | 2022-07-02 21:47 | XMS_ITS | Encounter Summary ---
:2001 Author Organization [place] Address [address] [place] [address] Care Team Providers Name Role Phone Julian [place] MD Unavailable Mariposa Atwood MD Unavailable [phone] Julian [place] MD Unavailable Eugenio Finney MD Unavailable [phone] Josh Carrero Primary Care Provider Encounter [...] on filedocumented in this encounter Care Teams On Site Wastewater Systems Technician Relationship Specialty Start Date End Date Josh Carrero PCP - General Family Medicine 08/09/[address] [address] Julian [place] MD MD Orthopedics 03/08/[address] [place], [place] [phone] Mariposa Atwood Assigned PCP 04/29/20 11/12/20 MD Nettie [address] [facility] [place] [address] Julian [place] MD Assigned Musculoskeletal 05/27/[address] Provider [place], [place] [phone] Eugenio Finney Assigned Pediatric 06/19/2005/07 MD David Specialist Provider 420 [facility] 96 [place], [place] [address] documented as of this encounter
--- OUTSIDE RECORDS SUMMARY | 2022-07-02 21:47 | XMS_ITS | Encounter Summary ---
:2001 Author Organization [place] Address [address] [place] [address]. [place] [address] Care Team Providers Name Role Phone Julian [place] MD Unavailable Julian [place] MD Unavailable Eugenio Finney MD Unavailable [phone] Josh Carrero Primary Care Provider Urbano Price MD Unavailable Reason for Visit Reason Onset Date Comments Prior Auth - Medication 11/16/2020 [facility] - Approva l Encounter Details Date Type Department Care Team Description 11/16/2020 Telephone Pediatric Urbano Price Auth - Endocrinology MD Esteban Medication ([facility] [address] [place] [address] Approval) [address] [address] [place], [place] [phone] (Wo rk) [address] [phone] Social History Tobacco Use Types Packs/Day Years [...] days. Reference #: [place]: [id number] Insurance Company: [employer] [phone] Expected CoPay: CoPay Card Available: Foundation Assistance Needed: Which Pharmacy is filling the prescription (Not needed for infusion/clinic administered[facility] [place] [address] [facility] Notified: Yes Patient Notified: Waiting for approval letter still from the insurance. Telephone Encounter - Arlet Warren - 11/16/2020 10:09 AM CDT Images from the original note were not included. PA Initiation Medication: [facility] Pending Insurance Company: [employer] [phone] [facility] [address] Filling Pharmacy Filling Pharmacy Start Date: 11/16/2020 documented in this encounter Plan of Treatment Not on filedocumented as of this encounter Visit Diagnoses Not on filedocumented in this encounter Care Teams Pinball Machine Repairer Relationship Specialty Start Date End Date Josh Carrero PCP - General Family Medicine 08/09/20 [place] [address] [place] [address] Julian [place] MD MD Orthopedics 03/08/[address] [place], [place] [phone] Julian [place] MD Assigned Musculoskeletal 05/27/[address] Provider [place], [place] [phone] Eugenio Finney Assigned Pediatric 06/19/2005/07 MD David Specialist Provider [address] [facility] 96 [place], [place] [phone] Urbano Price, Assigned PCP 11/13/20 [facility] [place], [place] [phone] documented as of this encounter
--- OUTSIDE RECORDS SUMMARY | 2022-07-02 21:47 | XMS_ITS | Encounter Summary ---
:2001 Author Organization [place] Address [address] [place] [address] Care Team Providers Name Role Phone Julian [place] MD Unavailable Mariposa Atwood MD Unavailable [phone] Julian [place] MD Unavailable Eugenio Finney MD Unavailable [phone] Josh Carrero Primary Care Provider Encounter Details Date Type Department Care Team Description 09/08/2020 Telephone [facility] Discovery [place]a Stone, wool hat sanding machine operator Specialty Clinic [address] [place] [address] [phone] Social History Tobacco Use Types Packs/Day [...] with No / Unsure 09/01/2020 7:58 AM DIRECTOR OF INFECTION CONTROL someone who was confirmed or suspected to [...] with Dr. Blake. Provided the phone number [employer] for integrative medicine. Sent message to PT scheduling team to schedule patient as well. She has no further questions at this time Dulce Stone RN on 09/08/2020 at 10:37 AM CTOR OF INFECTION CONTROL documented in this encounter Plan of Treatment Not on filedocumented as of this encounter Visit Diagnoses Not on filedocumented in this encounter Additional Health Concerns Infection Onset Date Last Indicated Resolved Time COVID-19 08/18/2020 08/18/2020 09/08/2020 11:39 PM DIRECTOR OF INFECTION CONTROL documented as of this encounter Care Teams Power System Electrical Engineer Relationship Specialty Start Date End Date Josh Carrero PCP - General Family Medicine 08/09/[address] [address] Julian [place] MD MD Orthopedics 03/08/20 [address] [place] [phone] Mariposa Atwood Assigned PCP 04/29/20 11/12/20 MD Nettie [facility] [place], [place] 12[address]64 Julian [place] MD Assigned Musculoskeletal 05/27/20 [address] [place] [address] Provider [place], [place] [address] Eugenio Finney Assigned Pediatric 06/19/2005/07 MD David Specialist Provider 420 [facility] 96 [place], [place] [address] documented as of this encounter
--- OUTSIDE RECORDS SUMMARY | 2022-07-02 21:47 | XMS_ITS | Encounter Summary ---
:2001 Author Organization [facility] Address [address] [place] [address]. [place] [address] Care Team Providers Name Role Phone Julian [place] MD Unavailable Mariposa Atwood MD Unavailable [phone] Julian [place] MD Unavailable Eugenio Finney MD Unavailable [phone] Josh Carrero Primary Care Provider Urbano Price MD Unavailable Joe Leo MD Unavailable Joe Leo MD Unavailable Douglas Gonzalez MD Unavailable [phone] Douglas Gonzalez MD Unavailable [phone] Reason for Visit Reason Onset Date Comments Appointment 09/02/2020 Encounter Details Date Type Department Care Team Description 09/02/2020 Telephone [facility] Pediatric Estee Rowe CNP Appointment [address] [address] [address] [place] [address] [place] [phone] Social History Tobacco Use Types Packs/Day [...] with No / Unsure 09/01/2020 7:58 AM BREAKFAST HOST someone who was confirmed or suspected to have Coronavirus / COVID-19? documented as of this encounter Plan of Treatment Not on filedocumented as of this encounter Visit Diagnoses Not on filedocumented in this encounter Additional Health Concerns Infection Onset Date Last Indicated Resolved Time COVID-19 08/18/2020 08/18/2020 09/08/2020 11:39 PM BREAKFAST HOST documented as of this encounter Care Teams Senior Gamemaster Relationship Specialty Start Date End Date Josh Carrero PCP - General Family Medicine 08/09/[address] [address] Julian [place] MD Orthopedics 03/08/20 MD Darell [address] [place] [address] Mariposa Atwood Assigned PCP 04/29/20 11/12/20 MD Nettie [address] [place] [phone] Julian [place] Assigned Musculoskeletal 05/27/20 MD Darell Provider [address] [place] [address]994 Eugenio Finney Assigned Pediatric 06/19/2005/07 MD David Specialist Provider 420 [facility] 96 [place] [address] Urbano Price Assigned PCP 11/13/20 MD Esteban [address] [place] [address] Joe Leo MD Physical Medicine and 04/11/21 MD Rehabilitation [address] [address] Joe Leo, Assigned Neuroscience 04/30/21 MD Provider [address] [address] Douglas Gonzalez MD Pediatrics 05/29/21 MD Julian [address] [place] [address] Douglas Gonzalez Assigned Pediatric 06/04/21 MD Julian Specialist Provider [address] [place] [address] documented as of this encounter
--- OUTSIDE RECORDS SUMMARY | 2022-07-02 21:47 | XMS_ITS | Encounter Summary ---
:2001 Author Organization [place] Address [address] [place] [address]. [place] [address] Care Team Providers Name Role Phone Julian [place] MD Unavailable Julian [place] MD Unavailable Eugenio Finney MD Unavailable [phone] Josh Carrero Primary Care Provider Urbano Price MD Unavailable Encounter Details Date Type Department Care Team Description 11/23/2020 Documentation Only [facility] Mariposa Atwood Pediatric MD [facility] [address] [place] [address] [facility] [phone] (Wo rk) [facility] [address], [place] [address] Social History Tobacco Use Types [...] on filedocumented in this encounter Care Teams Authorization Manager Relationship Specialty Start Date End Date Josh Carrero PCP - General Family Medicine 08/09/[address] [address] Julian [place] MD MD Orthopedics 03/08/20 [address] [place], [place] [address] Julian [place] MD Assigned Musculoskeletal 05/27/[address] Provider [place], [place] [phone] Eugenio Finney Assigned Pediatric 06/19/2005/07 MD David Specialist Provider [address] [facility] 96 [place] [address] Urbano Price, Assigned PCP 11/13/20 [address] [place], [place] [phone] documented as of this encounter
--- OUTSIDE RECORDS SUMMARY | 2022-07-02 21:47 | XMS_ITS | Encounter Summary ---
:2001 Author Organization [place] Address [address] [place] [address]. [place] [address] Care Team Providers Name Role Phone Julian [place] MD Unavailable Julian [place] MD Unavailable Eugenio Finney MD Unavailable [phone] Josh Carrero Primary Care Provider Urbano Price MD Unavailable Reason for Referral Rehab Therapy Physical Therapy (Routine) - Closed Specialty Diagnoses / Procedures Referred By Contact Refer red To Contact Diagnoses History of fusion of spine for scoliosis Muscle spasm of back Julian [place] MD [facility] Sports [address] & Physical Therapy - [place], [place] [address] [place] [address] [facility] 20 [place], [place] [address] Phone: Fax: Referral ID Status Reason Start Date Expiration Date Visits Requ ested Visits Authorized [id number] Closed 12/05/2020 12/03/2021 10 10 Reason for Visit Reason Comments RECHECK DOS 08/09/20 Removal of inst rumental for transitional segment vert Encounter Details Date Type Department Care Team Description 12/01/[address] [facility] Julian [place] History of fusion of spine for scoliosis (Primary Dx); Orthopedic Clinic MD Darell Muscle spasm of back [place] [phone] 4th [place] [address] Social History Tobacco Use Types Packs/Day [...] documented in this encounter Nursing Notes Formato, ReynaZAC - 12/01/2020 1:30 PM CDT Reason For Visit: Chief Complaint Patient presents with ??? 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 : Est Merchandising Consultant?No Occupation??Student. ?? Date of injury:??No Type of [...] Name Type Priority Associated Diagnoses [facility] Referral Routine History of fusion of Exp ected: 12/01/2020, REFERRAL spine for scolio sis Expires: 12/01/2021 (External-Prints) Muscle spasm of back documented as of this encounter Visit Diagnoses Diagnosis History of fusion of spine for scoliosis - Primary Muscle spasm of back Other symptoms referable to back documented in this encounter Care Teams Leasing Professional Relationship Specialty Start Date End Date Josh Carrero PCP - General Family Medicine 08/09/[address] [address] Julian [place] MD MD Orthopedics 03/08/[address] [place] [address] Julian [place] MD Assigned Musculoskeletal 05/27/[address] [place], [place] [phone] Provider [place], [place] [address]40[address] Eugenio Finney Assigned Pediatric 06/19/20/ MD David Specialist Provider 420 [facility] 96 [place] [address] Urbano Price, Assigned PCP 11/13/20 [address] [place] [address] documented as of this encounter
--- OUTSIDE RECORDS SUMMARY | 2022-07-02 21:47 | XMS_ITS | Encounter Summary ---
:2001 Author Organization [facility] Address [address] [place] [address] Care Team Providers Name Role Phone Julian Spencer MD Unavailable Mariposa Atwood MD Unavailable [phone] Julian Spencer MD Unavailable Eugenio Finney MD Unavailable [phone] Josh Carrero Primary Care Provider Encounter Details Date Type Department Care Team Description 09/22/2020 Orders Only [facility] At [facility] for hemorrhage [place] associated with surgery [address] [facility] 1st Floor [place], [place] [phone] Social History Tobacco Use Types Packs/Day [...] with No / Unsure 09/22/2020 8:47 AM FIREWORKS DISPLAY SPECIALIST someone who was confirmed or suspected to have Coronavirus / COVID-19? documented as of this encounter Plan of Treatment Not on filedocumented as of this encounter Procedures Procedure Name Priority Date/Time Associated Comments Diagnosis SEND OUTS MISC TEST Routine 09/22/2020 8:43 AM At risk for Re sults for this FIREWORKS DISPLAY SPECIALIST hemorrhage procedure are i n associated with the results surgery section. LABORATORY Routine 09/22/2020 8:43 AM At risk for Results f or this MISCELLANEOUS ORDER FIREWORKS DISPLAY SPECIALIST hemorrhage procedur e are in associated with the results surgery section. documented in this encounter Results Send outs misc test (09/22/2020 8:43 AM FIREWORKS DISPLAY SPECIALIST) Analysis Performed At Patho logist Time Signature Lab Scanned SEND OUTS MISYS Result MISC TEST-Scann ed Specimen Anatomical Collection Method Collection Time Receive d Time (Source) Location / / Volume Laterality 09/22/2020 8:43 AM 8:45 FIREWORKS DISPLAY SPECIALIST AM FIREWORKS DISPLAY SPECIALIST Mariposa Atwood MD LAB - BLOOD ORDERABLES Performing Organization Address City/State/ZIP Code Phon e Number MISYS Platelet disorders Gene Sequencing Panel with reflex to deletion/duplication for all available genesto [facility] Molecular Genetics Laboratory: Laboratory Miscellaneous Order (09/22/2020 8:43 AM FIREWORKS DISPLAY SPECIALIST) Component Value Ref Test Analysis Performed At Patholo gist Range Method Time Signature Miscellaneous Specimen Received, Reordered and sent to Performing laboratory - Report to follow upon 09/22/2020 [facility] Test completion. 4:56 PM FIREWORKS DISPLAY SPECIALIST [facility] Specimen Anatomical Collection Method Collection Time Receive d Time (Source) Location / / Volume Laterality Blood specimen VENOUS BLOOD / 09/22/2020 8:43 AM 09/22 8:45 (specimen) Unknown FIREWORKS DISPLAY SPECIALIST AM FIREWORKS DISPLAY SPECIALIST Mariposa Atwood MD LAB - BLOOD ORDERABLES Performing Organization Address City/State/ZIP Code Phon e Number [address] [address] [facility] Formerly named [facility] documented in this encounter Visit Diagnoses Diagnosis At risk for hemorrhage associated with s urgery documented in this encounter Care Teams Metal Buildings Assembler Relationship Specialty Start Date End Date Josh Carrero PCP - General Family Medicine 08/09/[address] [address] Julian Spencer MD MD Orthopedics 03/08/[address] [place], [place] [address] Mariposa Atwood Assigned PCP 04/29/20 11/12/20 MD Nettie 2450 [place] [address] Julian Spencer MD Assigned Musculoskeletal 05/27/[address] Provider [place], [place] [phone] Eugenio Finney Assigned Pediatric 06/19/2005/07 MD David Specialist Provider [address] [facility] 96 [place], [place] [phone] documented as of this encounter
--- OUTSIDE RECORDS SUMMARY | 2022-07-02 21:47 | XMS_ITS | Encounter Summary ---
:2001 Author Organization [facility] Address [address] [place] [address] Care Team Providers Name Role Phone Julian Spencer MD Unavailable Mariposa Atwood MD Unavailable [phone] Julian Spencer MD Unavailable Eugenio Finney MD Unavailable [phone] Josh Carrero Primary Care Provider Reason for Visit Diagnostic Imaging XR (Routine) - Closed Specialty Diagnoses / Procedures Referred By Contact Refer red To Contact Diagnoses S/P spinal surgery Julian Spencer MD Procedures XR Spine Complete Scoliosis 2 Views [address] [place], [place] [address] [place], [place] [address] Referral ID Status Reason Start Date Expiration Date Visits Requ ested Visits Authorized [id number] Closed 09/16/2020 09/16/2021 1 1 Encounter Details Date Type Department Care Team Description 09/22/2020 Ancillary Procedure [facility] Juveay MD Darell [place] [address] [place], [place] 1st Floor [address] [place], [place] [phone] [address] (Work) [phone] Social History Tobacco Use Types Packs/Day Years Used Date Smoking Tobacco: Never Smokeless Tobacco: Never Alcohol Use Standard Drinks/Week Comments Not Currently 0 (1 standard drink = 0.6 oz pure alcoho l) Sex Assigned at Date Recorded Female 12/02/2020 1:42 PM CDT COVID-19 Exposure Response Date Recorded In the last month, have you been in contact with No / Unsure 09/22/2020 8:47 AM TOBACCO WETTER someone who was confirmed or suspected to have Coronavirus / COVID-19? documented as of this encounter Plan of Treatment Not on filedocumented as of this encounter Procedures Procedure Name Priority Date/Time Associated Diagnosis Comme nts XR SPINE COMPLETE Routine 09/22/2020 8:26 AM S/P spinal surger y Results for this SCOLIOSIS 2 VIEWS TOBACCO WETTER procedure are in the results section. documented in this encounter Results XR Spine Complete Scoliosis 2 Views (09/22/2020 8:26 AM TOBACCO WETTER) Anatomical Region Laterality Modality Spine Computed Radiography Specimen (Source) Anatomical Location Collection Method / Collectio n Time Received Time / Laterality Volume Impressions 09/26/2020 8:59 AM TOBACCO WETTER Impression: 1. Post spinal instrumentation from T4 t o L4. Intact hardware. 2. Mild convexed right curvature of the thoracolumbar/lumbar spine. 3. No ??global sagittal imbalance. 4. Weight bearing axis as detailed above . 5. Left lower extremity longer than righ t lower extremity. CHATO OSMAN MD Narrative 09/26/2020 8:59 AM TOBACCO WETTER Exam: Full body radiographs using EOS History: [...] No substantial global coronal imbalance. Sagittal Vertical [place] (A vertical line drawn from the center [...] No substantial global coronal imbalance. Sagittal Vertical [place] (A vertical line drawn from the center [...] on filedocumented in this encounter Care Teams Skimmer Relationship Specialty Start Date End Date Josh Carrero PCP - General Family Medicine 08/09/[address] [address] Julian Spencer MD MD Orthopedics 03/08/[address] [place], [place] [address] [place] [address] Mariposa Atwood Assigned PCP 04/29/20 11/12/20 MD Nettie [address] [facility] [place], [place] [address] Julian Spencer MD Assigned Musculoskeletal 05/27/[address] [place] [address] Eugenio Finney Assigned Pediatric 06/19/2005/07 MD David Specialist Provider [address] [facility] 96 [place], [place] [address] documented as of this encounter
--- OUTSIDE RECORDS SUMMARY | 2022-07-02 21:47 | XMS_ITS | Encounter Summary ---
:2001 Author Organization [facility] Address [address] [place] [address]. [place] [address] Care Team Providers Name Role Phone Julian Spencer MD Unavailable Mariposa Atwood MD Unavailable [phone] Julian Spencer MD Unavailable Eugenio Finney MD Unavailable [phone] Josh Carrero Primary Care Provider Encounter Details Date Type Department Care Team Description 09/12/2020 Orders Only [facility] Mariposa Atwood At risk fo r Services - Medical MD Nettie hemorrhage associated Specialties Service [address] [place] [address] surgery (Primary Line S Dx) [address] [place] [phone] Social History Tobacco Use Types Packs/Day Years Used Date Smoking Tobacco: Never Smokeless Tobacco: Never Alcohol Use Standard Drinks/Week Comments Not Currently 0 (1 standard drink = 0.6 oz pure alcoho l) Sex Assigned at Date Recorded Female 12/02/2020 1:42 PM CDT COVID-19 Exposure Response Date Recorded In the last month, have you been in contact with No / Unsure 09/01/2020 7:58 AM BIODIESEL PLANT MANAGER someone who was confirmed or suspected to have Coronavirus / COVID-19? documented as of this encounter Plan of Treatment Not on filedocumented as of this encounter Results Platelet disorders Gene Sequencing Panel with reflex to deletion/duplication for all available [place] [facility] Laboratory: Laboratory Miscellaneous Order (09/22/2020 8:43 AM BIODIESEL PLANT MANAGER) Component Value Ref Test Analysis Performed At [facility] gist Range Method Time Signature Miscellaneous Specimen Received, Reordered and sent to Performing laboratory - Report to follow upon 09/22/2020 [facility] Test completion. 4:56 PM BIODIESEL PLANT MANAGER [facility] Specimen Anatomical Collection Method Collection Time Receive d Time (Source) Location / / Volume Laterality Blood specimen VENOUS BLOOD / 09/22/2020 8:43 AM 09/22 8:45 (specimen) Unknown BIODIESEL PLANT MANAGER AM BIODIESEL PLANT MANAGER Mariposa Atwood MD LAB - BLOOD ORDERABLES Performing Organization Address City/State/ZIP Code Phon e Number [address] [address] [facility] documented in this encounter Visit Diagnoses Diagnosis At risk for hemorrhage associated with s urgery - Primary documented in this encounter Care Teams Geotechnical Field Technician Relationship Specialty Start Date End Date Josh Carrero PCP - General Family Medicine 08/09/[address] [address] Julian Spencer MD MD Orthopedics 03/08/20 [address] [place] [address] Mariposa Atwood Assigned PCP 04/29/20 11/12/20 MD Nettie 2450 [facility] [place], [place] [address] Julian Spencer MD Assigned Musculoskeletal 05/27/[address] [place] [address] Eugenio Finney Assigned Pediatric 06/19/2005/07 MD David Specialist Provider [address] [address] documented as of this encounter
--- OUTSIDE RECORDS SUMMARY | 2022-07-02 21:47 | XMS_ITS | Encounter Summary ---
:2001 Author Organization [facility] Address [address] [place] [address] Care Team Providers Name Role Phone Julian Spencer MD Unavailable Mariposa Atwood MD Unavailable [phone] Jluian Spencer MD Unavailable Eugenio Finney MD Unavailable [phone] Josh Carrero Primary Care Provider Encounter [...] with No / Unsure 09/22/2020 8:47 AM ENGRAVER TIRE MOLD someone who was confirmed or suspected to have Coronavirus / COVID-19? documented as of this encounter Plan of Treatment Not on filedocumented as of this encounter Visit Diagnoses Not on filedocumented in this encounter Care Teams Academic Advising Director Relationship Specialty Start Date End Date Josh Carrero PCP - General Family Medicine 08/09/[address] [address] Julian Spencer MD MD Orthopedics 03/08/[address] [place], [place] [phone] Mariposa Atwood Assigned PCP 04/29/20 11/12/20 MD Nettie 24[address] [facility] [place] [address] Julian Spencer MD Assigned Musculoskeletal 05/27/[address] Provider [place], [place] [phone] Eugenio Finney Assigned Pediatric 06/19/2005/07 MD David Specialist Provider 420 [facility] 96 [place], [place] [phone] documented as of this encounter
--- OUTSIDE RECORDS SUMMARY | 2022-07-02 21:47 | XMS_ITS | Encounter Summary ---
:2001 Author Organization [facility] Address [address] [place] [address] Care Team Providers Name Role Phone Julian Spencer MD Unavailable Mariposa Atwood MD Unavailable [phone] Julian Spencer MD Unavailable Eugenio Finney MD Unavailable [phone] Josh Carrero Primary Care Provider Reason for Visit Reason Comments RECHECK wound check f/u from ER, DOS 08/09/20 Removal of instrumental for transitional segment vert Encounter Details Date Type Department Care Team Description 09/01/2020 Office Visit [facility] Julian Spencer Acquired v on Willebrand disease (H) (Primary Dx); Orthopedic Clinic MD Darell History of fusion of spine for scoliosis [address] 4th [place], [place] [address] Social History Tobacco Use Types Packs/Day [...] with No / Unsure 09/01/2020 7:58 AM SUPERVISOR RIPRAP PLACING someone who was confirmed or suspected to [...] about 10 cm lateral. 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 RVISOR RIPRAP PLACING documented in this encounter Nursing Notes Reyna Chávez LPN - 09/01/2020 8:00 AM CST Reason For Visit: Chief Complaint Patient presents with ??? RECHECK wound check f/u from ER, DOS 08/09/20 Removal of instrumental for transitional segment vert Primary MD: Jsoh Carrero Ref. MD: Est Hose Handler?No Occupation??Student. ?? Date of injury:??No Type of [...] Goal: 8 Primary Pain Location: Back Oswestry (LOKEHS) Questionnaire OSWESTRY DISABILITY INDEX 07/21/2020 Count 9 [...] data might be hidden Reyna Chávez LPN RVISOR RIPRAP PLACING documented in this encounter Plan of Treatment Not on filedocumented as of this encounter Visit Diagnoses Diagnosis Acquired von Willebrand disease - Primar y Von Willebrand's disease History of fusion of spine for scoliosis documented in this encounter Additional Health Concerns Infection Onset Date Last Indicated Resolved Time COVID-19 08/18/2020 08/18/2020 09/08/2020 11:39 PM SUPERVISOR RIPRAP PLACING documented as of this encounter Care Teams Telephone Services Sales Representative Relationship Specialty Start Date End Date Josh Carrero PCP - General Family Medicine 08/09/[address] [address] Julian Spencer MD MD Orthopedics 03/08/20 [facility] [address] [place] [address] Mariposa Atwood Assigned PCP 04/29/20 11/12/20 MD Nettie [address] [place] [address] Julian Spencer MD Assigned Musculoskeletal 05/27/[address] [place] [address] Eugenio Finney Assigned Pediatric 06/19/2005/07 MD David Specialist Provider [address] [facility] [address] [place] [address] documented as of this encounter
--- OUTSIDE RECORDS SUMMARY | 2022-07-02 21:47 | XMS_ITS | Encounter Summary ---
:2001 Author Organization [facility] Address [address] [place] [address] Care Team Providers Name Role Phone Julian Spencer MD Unavailable Julian Spencer MD Unavailable Eugenio Finney MD Unavailable [phone] Josh Carrero Primary Care Provider Urbano Price MD Unavailable Reason for Referral Diagnostic Imaging XR (Routine) - Closed Specialty Diagnoses / Procedures Referred By Contact Refer red To Contact Diagnoses S/P spinal surgery Julian Spencer MD Procedures XR Spine Complete Scoliosis 2 Views [address] [place] [address] Referral ID Status Reason Start Date Expiration Date Visits Requ ested Visits Authorized [id number] Closed 11/28/2020 11/28/2021 1 1 Diagnostic Imaging XR (Routine) - Closed Specialty Diagnoses / Procedures Referred By Contact Refer red To Contact Diagnoses S/P spinal surgery Julian Spencer MD Procedures XR Six Foot Standing Extremities [address] [place], [place] [address] Referral ID Status Reason Start Date Expiration Date Visits Requ ested Visits Authorized [id number] Closed 11/28/2020 11/28/2021 1 1 Encounter Details Date Type Department Care Team Description 11/28/2020 [facility] MD Darell (Primary Dx) [address] [place] [address] [address] 4th [place] [phone] Social History Tobacco Use Types Packs/Day [...] No substantial global coronal imbalance. Sagittal Vertical [place] (A vertical line drawn from the center [...] No substantial global coronal imbalance. Sagittal Vertical [place] (A vertical line drawn from the center [...] No substantial global coronal imbalance. Sagittal Vertical [place] (A vertical line drawn from the center [...] osseous abnorma lity. Procedure Note Stefanie Abreu, - 12/01/2020Forma tting of this note might be different from the original. Exam: Full body radiographs using EOS History: S/P spinal surgery Techniques: AP and lateral images of ful l body and secondary images of AP and lateral views of spine were submi tted for interpretation. Comparison: Radiograph 09/22/2020, 1/14/[address] of the lumbar spine 09/03/2018. [...] No substantial global coronal imbalance. Sagittal Vertical [place] (A vertical line drawn from the center [...] status documented in this encounter Care Teams Elementary Reading Tutor Relationship Specialty Start Date End Date Josh Carrero PCP - General Family Medicine 08/09/[address] [address] Julian Spencer MD MD Orthopedics 03/08/[address] [place], [place] [phone] Julian Spencer MD Assigned Musculoskeletal 05/27/[address] Provider [place], [place] [phone] Eugenio Finney Assigned Pediatric 06/19/2005/07 MD David Specialist Provider [address] [facility] 96 [place] [address] Urbano Price, Assigned PCP 11/13/20 [facility] [address] [place] [address] documented as of this encounter
--- OUTSIDE RECORDS SUMMARY | 2022-07-02 21:47 | XMS_ITS | Encounter Summary ---
:2001 Author Organization [facility] Address [address] [place] [address] Care Team Providers Name Role Phone Julian Spencer MD Unavailable Mariposa Atwood MD Unavailable [phone] Julian Spencer MD Unavailable Eugenio Finney MD Unavailable [phone] Josh Carrero Primary Care Provider Encounter [...] with No / Unsure 10/13/2020 1:38 PM BEAUTY SCHOOL INSTRUCTOR someone who was confirmed or suspected to have Coronavirus / COVID-19? documented as of this encounter Plan of Treatment Not on filedocumented as of this encounter Visit Diagnoses Not on filedocumented in this encounter Care Teams Rubbing Bed Operator Relationship Specialty Start Date End Date Josh Carrero PCP - General Family Medicine 08/09/[address] [address] Julian Spencer MD MD Orthopedics 03/08/[address] [place], [place] [phone] Mariposa Atwood Assigned PCP 04/29/20 11/12/20 MD Nettie [address] [facility] [place] [address] Julian Spencer MD Assigned Musculoskeletal 05/27/[address] Provider [place], [place] [phone] Eugenio Finney Assigned Pediatric 06/19/2005/07 MD David Specialist Provider 420 [facility] 96 [place], [place] [phone] documented as of this encounter
--- OUTSIDE RECORDS SUMMARY | 2022-07-02 21:47 | XMS_ITS | Encounter Summary ---
:2001 Author Organization [facility] Address [address] [place] [address]. [place] [address] Care Team Providers Name Role Phone Julian Spencer MD Unavailable Mariposa Atwood MD Unavailable [phone] Julian Spencer MD Unavailable Eugenio Finney MD Unavailable [phone] Josh Carrero Primary Care Provider Encounter Details Date Type Department Care Team Description 10/18/2020 [facility] Pediatric Monica Escalera, RN Specialty Clinic [address] [place] [address], [place] [phone] Social History Tobacco Use [...] with No / Unsure 10/13/2020 1:38 PM INSTRUCTOR DRAMATIC ARTS someone who was confirmed or suspected to have Coronavirus / COVID-19? documented as of this encounter Miscellaneous Notes Telephone Encounter - Monica Escalera, RN - 10/18/2020 9:58 AM CDTSummary: lab results Tiffany's mom requesting lab result interpretation from hematology. Drs. Angelic and Nancy labs havenot yet been results. [facility] reached out to endo team who will address with Tiffany when results are final. documented in this encounter Plan of Treatment Not on filedocumented as of this encounter Visit Diagnoses Not on filedocumented in this encounter Care Teams Day Care Teacher Relationship Specialty Start Date End Date Josh Carrero PCP - General Family Medicine 08/09/[address] [phone] Julian Spencer MD MD Orthopedics 03/08/20 [address] [place] [id number] Mariposa Atwood Assigned PCP 04/29/20 11/12/20 MD Nettie [facility] [place], [place] [phone] Julian Spencer MD Assigned Musculoskeletal 05/27/20 [address] [place] [address] Provider [place], [place] [address] Eugenio Finney Assigned Pediatric 06/19/2005/07 MD David Specialist Provider 420 [facility] 96 [place], [place] [address] documented as of this encounter
--- OUTSIDE RECORDS SUMMARY | 2022-07-02 21:47 | XMS_ITS | Encounter Summary ---
:2001 Author Organization [facility] Address [address] [place] [address] Care Team Providers Name Role Phone Julian Spencer MD Unavailable Mariposa Atwood MD Unavailable [phone] Julian Spencer MD Unavailable Eugenio Finney MD Unavailable [phone] Josh Carrero Primary Care Provider Reason for Visit Diagnostic Imaging XR (Routine) - Closed Specialty Diagnoses / Procedures Referred By Contact Refer red To Contact Diagnoses S/P spinal surgery Julian Spencer MD Procedures XR Six Foot Standing Extremities [address] [facility] [place], [place] [address] Referral ID Status Reason Start Date Expiration Date Visits Requ ested Visits Authorized [id number] Closed 09/16/2020 09/16/2021 1 1 Encounter Details Date Type Department Care Team Description 09/22/2020 Ancillary Procedure [facility] Juveay MD Darell [place] [address] [place], [place] 1st Floor [address] [place], [place] [phone] [address] (Work) [phone] Social History Tobacco Use Types Packs/Day Years Used Date Smoking Tobacco: Never Smokeless Tobacco: Never Alcohol Use Standard Drinks/Week Comments Not Currently 0 (1 standard drink = 0.6 oz pure alcoho l) Sex Assigned at Date Recorded Female 12/02/2020 1:42 PM CDT COVID-19 Exposure Response Date Recorded In the last month, have you been in contact with No / Unsure 09/22/2020 8:47 AM [facility] someone who was confirmed or suspected to have Coronavirus / COVID-19? documented as of this encounter Plan of Treatment Not on filedocumented as of this encounter Procedures Procedure Name Priority Date/Time Associated Comments Diagnosis XR SIX FOOT STANDING Routine 09/22/2020 8:26 AM S/P spinal teresa jenaro Results for this EXTREMITIES [facility] procedure are i n the results section. documented in this encounter Results XR Six Foot Standing Extremities (09/22/2020 8:26 AM [facility]) Anatomical Region Laterality Modality Lower Extremity Computed Radiography Specimen (Source) Anatomical Location Collection Method / Collectio n Time Received Time / Laterality Volume Impressions 09/26/2020 8:59 AM [facility] Impression: 1. Post spinal instrumentation from T4 t o L4. Intact hardware. 2. Mild convexed right curvature of the thoracolumbar/lumbar spine. 3. No ??global sagittal imbalance. 4. Weight bearing axis as detailed above . 5. Left lower extremity longer than righ t lower extremity. CHATO OSMAN MD Narrative 09/26/2020 8:59 AM [facility] Exam: Full body radiographs using EOS History: [...] No substantial global coronal imbalance. Sagittal Vertical [place] (A vertical line drawn from the center [...] No substantial global coronal imbalance. Sagittal Vertical [place] (A vertical line drawn from the center [...] on filedocumented in this encounter Care Teams Paper Winder Relationship Specialty Start Date End Date Josh Carrero PCP - General Family Medicine 08/09/[address] [id number] Julian Spencer MD MD Orthopedics 03/08/[address] [place] [address] [id number] Mariposa Atwood Assigned PCP 04/29/20 11/12/20 MD Nettie [address] [facility] [place], [place] [address] Julian Spencer MD Assigned Musculoskeletal 05/27/[address] [place], [place] [phone] Provider [place], [place] [address] Eugenio Finney Assigned Pediatric 06/19/2005/07 MD David Specialist Provider [address] [facility] 96 [place], [place] [address] documented as of this encounter
--- OUTSIDE RECORDS SUMMARY | 2022-07-02 21:47 | XMS_ITS | Encounter Summary ---
:2001 Author Organization [place] Address [facility] [place] [address] Care Team Providers Name Role Phone Julian Spencer MD Unavailable Mariposa Atwood MD Unavailable [phone] Julian Spencer MD Unavailable Eugenio Finney MD Unavailable [phone] Josh Carrero Primary Care Provider Reason for Visit Reason Comments Vomiting Encounter Details Date Type Department Care Team Description 10/23/2020 Emergency [facility] Berna Galvez MD Gastroenteritis Emergency Department 2450 [facility] 2450 [place] [address] [place] [address] [phone] Social History Tobacco Use Types Packs/Day Years [...] Body Mass Index 19.92 10/13/2020 2:33 PM 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 Gastroenteritis, Viral (Adult) (Macanese)documented in this encounter Medications at Time of [...] 12 hours. Repeat daily. naloxone (NARCAN) 4 [place] 1 spray (4 mg) 0.2 mL 0 [...] and Surgical History, and Social History inthe [employer] system. Review of Systems Please see HPI [...] mg Intravenous Given 10/23/202242) Old chart from [facility] reviewed, supported history as above. Labs [...] Steve Wray MD Pediatrics resident PGY3 10/23/2020 [facility] This data collected with the Resident working in the Emergency Department. Patient was seen and evaluated by myself and I repeated the history and physical exam with the patient. The plan of care was discussed with them. The ren portions of the note including the entire assessment and plan reflect my d ocumentation. Twin Martinez MD 10/27/20 0853 documented in this encounter Plan of Treatment [...] Signature Lipase 95 73 - 393 10/23/2020 [place] U/L 9:41 PM CDT [facility] Specimen Anatomical Collection Method Collection Time Receive d Time (Source) Location / / Volume Laterality Blood specimen 10/23/2020 8:57 PM 021 9:16 (specimen) CDT PM CDT Twin Galvez MD LAB - BLOOD ORDERABLES Performing Organization Address City/State/ZIP Code Phon e Number M [facility] [address] [place] [address] [facility] [address] [place] [address], [place] [phone] (ABNORMAL) Comprehensive metabolic panel (10/23/2020 8:57 PM CDT) Analysis Performed At Patho logist Time Signature Sodium 140 133 - 144 10/23/2020 [facility] mmol/L 9:33 PM CDT [facility] Potassium 3.3 (L) 3.4 - 5.3 10/23/2020 [facility] mmol/L 9:33 PM CDT [facility] Chloride 105 96 - 110 10/23/2020 [facility] mmol/L 9:33 PM CDT [facility] Carbon Dioxide 27 20 - 32 10/23/2020 [facility] mmol/L 9:39 PM CDT [facility] Anion Gap 8 3 - 14 10/23/2020 [facility] mmol/L 9:39 PM CDT [facility] Glucose 89 70 - 99 10/23/2020 [facility] mg/dL 9:39 PM CDT [facility] Urea Nitrogen 8 7 - 30 10/23/2020 [facility] mg/dL 9:39 PM CDT [facility] Creatinine 0.60 0.50 - 10/23/2020 [facility] 1.00 mg/dL 9:39 PM CDT [facility] GFR Estimate >90 >60 10/23/2020 [facility] mL/min/{1. 9:39 PM CDT [facility] 73_m2} [facility] Comment: Non GFR Calc Starting 07/22/2018, serum creatinine ba sed estimated GFR (eGFR) will be calculated using the Chronic Kidney Dise [facility] Epidemiology Collaboration (CKD-EPI) equation. GFR Estimate If >90 >60 mL/min/{1.73_m2} 10/23/2020 9: 39 PM [facility] Comment: GFR Calc Starting 07/22/2018, serum creatinine ba sed estimated GFR (eGFR) will be calculated using the Chronic Kidney Dise [facility] Epidemiology Collaboration (CKD-EPI) equation. Calcium 9.0 8.5 - 10.1 mg/dL 10/23/2020 9:39 PM [facility] Bilirubin Total 0.6 0.2 - 1.3 mg/dL 10/23/2020 9:41 PM [facility] Albumin 3.9 3.4 - 5.0 g/dL 10/23/2020 9:41 PM [facility] Protein Total 7.3 6.8 - 8.8 g/dL 10/23/2020 9:[address] [facility] Alkaline Phosphatase 103 40 - 150 U/L 10/23/2020 9:41 PM [facility] ALT 15 0 - 50 U/L 10/23/2020 9:41 PM [facility] AST 12 0 - 35 U/L 10/23/2020 9:41 PM [facility] Specimen Anatomical Collection Method Collection Time Receive d Time (Source) Location / / Volume Laterality Blood specimen 10/23/2020 8:57 PM 021 9:16 (specimen) CDT PM CDT Twin Galvez MD LAB - BLOOD ORDERABLES Performing Organization Address City/State/ZIP Code Phon e Number M [facility] [address] [place] [address] [phone] [place] [address] [place] [address] [facility] [address] [place] [address], U [phone] CBC with platelets differential (10/23/2020 8:57 PM CDT) [facility] Method Time Signature WBC 8.4 4.0 - 10/23/2020 [facility] 11.0 9:20 PM CDT [facility] 10e9/L [facility] RBC Count 4.16 3.8 - 5.2 10/23/2020 [facility] 10e12/L 9:20 PM [facility] Hemoglobin 11.9 11.7 - 10/23/2020 [facility] 15.7 g/dL 9:20 PM [facility] Hematocrit 36.4 35.0 - 10/23/2020 [facility] 47.0 % 9:20 PM [facility] MCV 88 78 - 100 10/23/2020 [facility] fl 9:20 PM T [facility] MCH 28.6 26.5 - 10/23/2020 [facility] 33.0 pg 9:20 PM [facility] MCHC 32.7 31.5 - 10/23/2020 [facility] 36.5 g/dL 9:20 PM [facility] RDW 13.1 10.0 - 10/23/2020 [facility] 15.0 % 9:20 PM [facility] Platelet Count 375 150 - 450 10/23/2020 [facility] 10e9/L 9:20 PM [facility] Diff Method Automated 10/23/2020 [facility] Method 9:20 PM [facility] % Neutrophils 57.4 % 10/23/2020 [facility] 9:20 PM [facility] % Lymphocytes 29.9 % 10/23/2020 [facility] 9:20 PM [facility] % Monocytes 11.8 % 10/23/2020 [facility] 9:20 PM [facility] % Eosinophils 0.5 % 10/23/2020 [facility] 9:20 PM [facility] % Basophils 0.2 % 10/23/2020 [facility] 9:20 PM [facility] % Immature 0.2 % 10/23/2020 [facility] Granulocytes 9:20 PM [facility] Nucleated RBCs 0 0 /100 10/23/2020 [facility] 9:20 PM [facility] Absolute 4.8 1.6 - 8.3 10/23/2020 [facility] Neutrophil 10e9/L 9:20 PM CDT [facility] Absolute 2.5 0.8 - 5.3 10/23/2020 [facility] Lymphocytes 10e9/L 9:20 PM CDT [facility] Absolute 1.0 0.0 - 1.3 10/23/2020 [facility] Monocytes 10e9/L 9:20 PM CDT [facility] Absolute 0.0 0.0 - 0.7 10/23/2020 [facility] Eosinophils 10e9/L 9:20 PM CDT [facility] Absolute 0.0 0.0 - 0.2 10/23/2020 [facility] Basophils 10e9/L 9:20 PM CDT [facility] Abs Immature 0.0 0 - 0.4 10/23/2020 [facility] Granulocytes 10e9/L 9:20 PM CDT [facility] Absolute 0.0 10/23/2020 [facility] Nucleated RBC 9:20 PM CDT [facility] Specimen Anatomical Collection Method Collection Time Receive d Time (Source) Location / / Volume Laterality Blood specimen 10/23/2020 8:57 PM 021 9:16 (specimen) CDT PM CDT Twin Galvez MD LAB - BLOOD ORDERABLES Performing Organization Address City/State/ZIP Code Phon e Number [facility] [address] [place] [address] [facility] Urine Culture Aerobic Bacterial (10/23/2020 8:32 PM CDT) [facility] gist Method Time Signature Specimen Midstream INFECTIOUS Description Urine [facility], [facility] Culture Micro No growth 10/25/2020 INFECTIOUS 4:29 AM CDT [facility], [facility] Specimen (Source) Anatomical Collection Method Collection Time Re ceived Time Location / / Volume Laterality Examination of URINE SPECIMEN 10/23/2020 8:32 10/24/19 9:20 midstream urine OBTAINED BY CLEAN PM CDT PM CDT specimen CATCH PROCEDURE / (procedure) Unknown Twin Galvez MD LAB - MICRO GENERAL ORDERABL ES Performing Organization Address City/State/ZIP Code Phon e Number INFECTIOUS [facility]ES DIAGNOSTIC [address] [facility] [address] LABORATORY, [facility] (ABNORMAL) UA with Microscopic (10/23/2020 8:32 PM CDT) [facility] gist Method Time Signature Color Urine Yellow 10/23/2020 [facility] 9:34 PM CDT [facility] Appearance Urine Clear 10/23/2020 [facility] F 9:34 PM T [facility] Glucose Urine Negative NEG^Negat 10/23/2020 [facility] mindy mg/dL 9:34 PM T [facility] Bilirubin Urine Negative NEG^Negat 10/23/2020 [facility] mindy 9:34 PM CDT [facility] Ketones Urine Negative NEG^Negat 10/23/2020 [facility] mindy mg/dL 9:34 PM T [facility] Specific [place] 1.012 1.003 - 10/23/2020 [facility] F Urine 1.035 9:34 PM T [facility] Blood Urine Negative NEG^Negat 10/23/2020 [facility] mindy 9:34 PM T [facility] pH Urine 6.0 5.0 - 7.0 10/23/2020 [facility] pH 9:34 PM T [facility] Protein Albumin Negative NEG^Negat 10/23/2020 [facility] Urine mindy mg/dL 9:34 PM T [facility] Urobilinogen Normal 0.0 - 2.0 10/23/2020 [facility] mg/dL mg/dL 9:34 PM T [facility] Nitrite Urine Negative NEG^Negat 10/23/2020 [facility] mindy 9:34 PM T [facility] Leukocyte Negative NEG^Negat 10/23/2020 [facility] Esterase Urine mindy 9:34 PM T [facility] Source Midstream 10/23/2020 [facility] Urine 9:20 PM T [facility] WBC Urine 2 0 - 5 10/23/2020 [facility] /HPF 9:34 PM T [facility] RBC Urine 4 (H) 0 - 2 10/23/2020 [facility] /HPF 9:34 PM T [facility] Bacteria Urine Few (A) NEG^Negat 10/23/2020 [facility] mindy /HPF 9:34 PM T [facility] Squamous 1 0 - 1 10/23/2020 [facility] Epithelial /HPF /HPF 9:34 PM CDT [facility] Urine [facility] Mucous Urine Present (A) NEG^Negat 10/23/2020 [facility] mindy /LPF 9:34 PM CDT [facility] Specimen (Source) Anatomical Collection Method Collection Time Re ceived Time Location / / Volume Laterality Examination of URINE SPECIMEN 10/23/2020 8:32 10/24/19 9:20 midstream urine OBTAINED BY CLEAN PM CDT PM CDT specimen CATCH PROCEDURE / (procedure) Unknown Twin Galvez MD LAB - URINE ORDERABLES Performing Organization Address City/State/ZIP Code Phon e Number [facility] [address] [place] [address] [facility] documented in this encounter Visit Diagnoses Diagnosis [...] size. documented in this encounter Care Teams Association Executive Relationship Specialty Start Date End Date Josh Carrero PCP - General Family Medicine 08/09/[address] [address] Julian Spencer MD MD Orthopedics 03/08/[address] [place], [place] [phone] Mariposa Atwood Assigned PCP 04/29/20 11/12/20 MD Nettie [address] [facility] [place] [place] [phone] Julian Spencer MD Assigned Musculoskeletal 05/27/[address] [place] [address] Eugenio Finney Assigned Pediatric 06/19/2005/07 MD David Specialist Provider [address] [place] [address] 96 [place], [place] [address] documented as of this encounter
--- OUTSIDE RECORDS SUMMARY | 2022-07-02 21:47 | XMS_ITS | Encounter Summary ---
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 documented as of this encounter Last Filed Vital Signs Vital Sign Reading Time Taken Comments Blood Pressure - - Pulse - - Temperature - - Respiratory Rate - - Oxygen Saturation - - Inhaled Oxygen Concentration - - Weight 54.9 kg (121 lb) 09/22/2020 8:53 AM DIGITAL PRODUCER Height 164 cm (5' 4.57) 09/22/2020 8:53 AM DIGITAL PRODUCER Body Mass Index 20.41 09/22/2020 8:53 AM DIGITAL PRODUCER documented in this encounter Progress Notes Julian Spencer MD - 09/22/2020 8:30 AM CST HISTORY OF PRESENT ILLNESS: Dakota returns 6 weeks out now from a revision T4-L4 spine fusion. 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 Esposito at [place]. F/U with me 6 weeks. I subsequently [...] lengthening rather than shortening. 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 My nursing team will assist getting her in to see Dr. Esposito at [place]. Answers for HPI/ROS submitted by the patient on 09/16/2020 General Symptoms: No Skin Symptoms: No HENT Symptoms: No EYE SYMPTOMS: No HEART SYMPTOMS: No LUNG SYMPTOMS: No INTESTINAL SYMPTOMS: No URINARY SYMPTOMS: No GYNECOLOGIC SYMPTOMS: No BREAST SYMPTOMS: No SKELETAL SYMPTOMS: No BLOOD SYMPTOMS: No NERVOUS SYSTEM SYMPTOMS: No MENTAL HEALTH SYMPTOMS: No PEDS Symptoms: No TAL PRODUCER documented in this encounter Nursing Notes Reyna Chávez LPN - 09/22/2020 8:30 AM CST Reason For Visit: Chief Complaint Patient presents with ??? 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 MD: Est Big 6 Dealer?No Occupation??Student. ?? Date of injury:??No Type of [...] data might be hidden Reyna Chávez LPN TAL PRODUCER documented in this encounter Plan of Treatment Not on filedocumented as of this encounter Visit Diagnoses Diagnosis S/P spinal surgery - Primary Other postprocedural status documented in this encounter Care Teams Ware Server Relationship Specialty Start Date End Date Josh Carrero PCP - General Family Medicine 08/09/[address] [address] Julian Spencer MD MD Orthopedics 03/08/[address] [place], [place] [address] Mariposa Atwood Assigned PCP 04/29/20 11/12/20 MD Nettie [address] [place], [place] [phone] Julian Spencer MD Assigned Musculoskeletal 05/27/[address] Provider [place], [place] [address] Eugenio Finney Assigned Pediatric 06/19/2005/07 MD David Specialist Provider 420 [facility] 96 [place], [place] [address] documented as of this encounter
[2022-07-02 21:48] VITALS: BP 125/79; PULSE 105; RESP 20; TEMP 38
--- OUTSIDE RECORDS SUMMARY | 2022-07-02 21:48 | XMS_ITS | Encounter Summary ---
:2001 Author Organization [place] Address [facility] [place] [address] Care Team Providers Name Role Phone Julian Spencer MD Unavailable Mariposa Atwood MD Unavailable [phone] Julian Spencer MD Unavailable Eugenio Finney MD Unavailable [phone] Josh Carrero Primary Care Provider Urbano Price MD Unavailable Joe Leo MD Unavailable Joe Leo MD Unavailable Douglas Gonzalez MD Unavailable [phone] Douglas Gonzalez MD Unavailable [phone] Reason for Visit Reason Onset Date Comments Appointment 08/24/2020 Encounter Details Date Type Department Care Team Description 08/24/2020 Telephone [facility] Smith Gonzalez, Appointment Pediatric Specialty Clinic 25[address] [facility], 3rd [facility] 2450 [facility] [address] [place], [place] [phone] [place] [address] (Wo rk) Social History Tobacco [...] with No / Unsure 08/18/2020 3:05 PM [facility] WEIGHMASTER someone who was confirmed or suspected to have Coronavirus / COVID-19? documented as of this encounter Miscellaneous Notes Telephone Encounter - Delores Shelby - 08/24/2020 9:05 AM CST LM for patient to call back and schedule new [address] Gonzalez in person on his Saturday or Saturday clinic day. Delores Shelby [facility] [employer] Crane Operator [id number] [place] [address] Floor [phone] [email or web address] WEIGHMASTER documented in this encounter Plan of Treatment Not on filedocumented as of this encounter Visit Diagnoses Not on filedocumented in this encounter Additional Health Concerns Infection Onset Date Last Indicated Resolved Time COVID-19 08/18/2020 08/18/2020 09/08/2020 11:39 PM [facility] WEIGHMASTER documented as of this encounter Care Teams Fire Code Inspector Relationship Specialty Start Date End Date Josh Carrero PCP - General Family Medicine 08/09/[address] [address] Julian Spencer MD Orthopedics 03/08/20 MD Darell [facility] [address] [address] Mariposa Atwood Assigned PCP 04/29/20 11/12/20 MD Nettie 2450 [place], [place] [phone] Julian Spencer Assigned Musculoskeletal 05/27/20 MD Darell Provider [address] [place], [place] [address] Eugenio Finney Assigned Pediatric 06/19/2005/07 MD David Specialist Provider 420 [facility] 96 [place], [place] [address] Urbano Price Assigned PCP 11/13/20 MD Esteban [address] [place] [address] Joe Leo MD Physical Medicine and 04/11/21 MD Rehabilitation [address] [place] [address] 297 [place], [place] [phone] Joe Leo, Assigned Neuroscience 04/30/21 MD Provider [address] [place] [address] 297 [place], [place] [phone] Douglas Gonzalez MD Pediatrics 05/29/21 MD Julian [address] [place] [phone] Douglas Gonzalez Assigned Pediatric 06/04/21 MD Julian Specialist Provider [address] [place] [phone] documented as of this encounter
--- OUTSIDE RECORDS SUMMARY | 2022-07-02 21:48 | XMS_ITS | Encounter Summary ---
:2001 Author Organization [place] Address [facility] [address] Care Team Providers Name Role Phone Julian Spencer MD Unavailable Mariposa Atwood MD Unavailable [phone] Julian Spencer MD Unavailable Eugenio Finney MD Unavailable [phone] Josh Carrero Primary Care Provider Reason for Visit Reason Comments Extremity Weakness Encounter Details Date Type Department Care Team Description 08/28/2020 - Emergency [facility] Naomie Craig MD Pain 08/29/2020 Emergency Department [facility] [address] [address] [place] [phone] Social History Tobacco Use Types Packs/Day Years Used Date Smoking Tobacco: Never Smokeless Tobacco: Never Alcohol Use Standard Drinks/Week Comments Not Currently 0 (1 standard drink = 0.6 oz pure alcoho l) Sex Assigned at Date Recorded Female 12/02/2020 1:42 PM CDT COVID-19 Exposure Response Date Recorded In the last month, have you been in contact with No / Unsure 08/28/2020 8:19 PM NURSING CARE PARTNER someone who was confirmed or suspected to have Coronavirus / COVID-19? documented as of this encounter Last Filed Vital Signs Vital Sign Reading Time Taken Comments Blood Pressure 113/70 08/29/2020 12:00 AM NURSING CARE PARTNER Pulse 78 08/29/2020 12:00 AM NURSING CARE PARTNER Temperature 36.7 ??C (98 ??F) 08/28/2020 9:42 PM NURSING CARE PARTNER Respiratory Rate 18 08/28/2020 9:42 PM NURSING CARE PARTNER Oxygen Saturation 99% 08/29/2020 12:00 AM NURSING CARE PARTNER Inhaled Oxygen Concentration - - Weight 51.7 kg (114 lb) 08/28/2020 9:42 PM NURSING CARE PARTNER stated Height - - Body Mass Index 20.19 08/09/2020 6:50 AM NURSING CARE PARTNER documented in this encounter Discharge Instructions Discharge InstructionsKristel Benítez MD - 08/29/2020 12:16 AM CST Emergency Department Discharge Information for Dakota Duncan was seen in the [facility] Emergency Department today for increased pain and [...] an appointment to follow up with Orthopedics ([phone]) in 1-[address] [...] home, ask your doctor or a pharmacist. ING CARE PARTNER documented in this encounter Medications at Time [...] 12 hours. Repeat daily. naloxone (NARCAN) 4 [place] 1 spray (4 mg) 0.2 mL 0 [...] and plan. Glen Sharma MD 08/29/20 0054 ING CARE PARTNER Leilani Gonzalez RN - 08/28/2020 9:41 PM CST Pt had spinal fusion surgery two weeks ago, presents with lower R extremity weakness and tingling, nausea, vomiting x1 yesterday and feeling lightheaded. ING CARE PARTNER Naomie Fierro MD - 08/28/2020 9:35 PM [...] Julian Spencer @ [facility] PCP [facility]: Dr Carrero. PMHx: Past Medical History: Diagnosis [...] of Aug 28 2348 Sun Aug 28, 20202346 CRP Inflammation: <2.9 2347 WBC: 7.3 2347 Absolute Neutrophil: 2.9 2347 Platelet Count(!): 633 2349 Hemoglobin(!): 11.1 Procedures [...] x5 additional 5mg tablets to pharmacy to worm picker tomorrow. If pain still worse after using all of these, follow up with orthopedic clinic. Currently has follow up with Dr. Gonzalez with PACCT scheduled for September. - Return precautions discussed including fevers, worsened vomiting, worsened swelling - Take pictures of the wound if you see any concerning changes Kristel Benítez M.D., PGY-2 Pediatrics Resident [facility] New Prescriptions No medications on file Final diagnoses: Pain 08/28/2020 [facility] EM[facility]ENCY [facility] Patient data was collected [...] Medicine Attending Physician Naomie Fierro MD 08/29/20 4506 ING CARE PARTNER documented in this encounter Miscellaneous Notes Plan [...] Ronald Lee MD Orthopaedic Surgery PGY-4 #: [phone] ING CARE PARTNER documented in this encounter Plan of Treatment Pending Results Name Type Priority Associated Diagnoses Date/Ti me POC US SOFT TISSUE Imaging STAT 10:02 PM NURSING CARE PARTNER Scheduled Orders Name Type Priority Associated Diagnoses Order S chedule POC US SOFT TISSUE Imaging STAT One time imaging for 1 Occurrences sta rting 08/28/2020 unti l 08/28/2020 documented as of this encounter Procedures Procedure Name Priority Date/Time Associated Comments Diagnosis XR SPINE COMPLETE STAT 08/28/2020 10:37 Result s for this SCOLIOSIS 2 VIEWS PM NURSING CARE PARTNER procedure are in the results section. CBC WITH PLATELETS & STAT 08/28/2020 10:21 Res ults for this DIFFERENTIAL PM NURSING CARE PARTNER procedure are i n the results section. CRP INFLAMMATION STAT 08/28/2020 10:21 Results for this PM NURSING CARE PARTNER procedure are i n the results section. COMPREHENSIVE STAT 08/28/2020 10:21 Results fo r this METABOLIC PANEL PM NURSING CARE PARTNER procedure ar e in the results section. documented in this encounter Results XR Spine Complete Scoliosis 2 Views (08/28/2020 10:37 PM NURSING CARE PARTNER) Anatomical Region Laterality Modality Spine Computed Radiography Specimen (Source) Anatomical Location Collection Method / Collectio n Time Received Time / Laterality Volume Impressions 08/29/2020 7:40 AM NURSING CARE PARTNER Impression: No evidence of hardware failure or migration. I have personally reviewed the examinati on and initial interpretation and I agree with the findings. PREET STEELE MD Narrative 08/29/2020 7:40 AM NURSING CARE PARTNER Exam: XR SPINE COMPLETE SCOLIOSIS 2 VW, [...] ORDER DANO CRP inflammation (08/28/2020 10:21 PM NURSING CARE PARTNER) athologist Signature CRP Inflammation <2.9 0.0 - 8.0 08/28/2020 WINNIE mg/L 11:05 PM [facility] Specimen Anatomical Collection Method Collection Time Receive d Time (Source) Location / / Volume Laterality Blood specimen 08/28/2020 10:21 1 (specimen) PM NURSING CARE PARTNER 10:37 PM NURSING CARE PARTNER Kristel Benítez MD LAB - BLOOD ORDERABLES Performing Organization Address City/State/ZIP Code Phon e Number M [facility] [address] [address] [facility] [address] [address], [place] [phone] Comprehensive metabolic panel (08/28/2020 10:21 PM NURSING CARE PARTNER) athologist Signature Sodium 141 133 - 144 08/28/2020 [facility] mmol/L 10:56 PM [facility] Potassium 3.6 3.4 - 5.3 08/28/2020 [facility] mmol/L 10:56 PM [facility] Chloride 108 96 - 110 08/28/2020 [facility] mmol/L 10:56 PM [facility] Carbon Dioxide 26 20 - 32 08/28/2020 [facility] mmol/L 11:02 PM [facility] Anion Gap 7 3 - 14 08/28/2020 [facility] mmol/L 11:02 PM [facility] Glucose 80 70 - 99 08/28/2020 [facility] mg/dL 11:02 PM [facility] Urea Nitrogen 10 7 - 30 08/28/2020 [facility] mg/dL 11:02 PM [facility] Creatinine 0.65 0.50 - 08/28/2020 [facility] 1.00 mg/dL 11:02 PM [facility] GFR Estimate >90 >60 08/28/2020 [facility] mL/min/{1. 11:02 PM [facility] 73_m2} [facility] Comment: Non GFR Calc Starting 07/22/2018, serum creatinine ba sed estimated GFR (eGFR) will be calculated using the Chronic Kidney Dise [facility] Epidemiology Collaboration (CKD-EPI) equation. GFR Estimate If >90 >60 mL/min/{1.73_m2} 08/28/2020 11 :02 PM [facility] Comment: GFR Calc Starting 07/22/2018, serum creatinine ba sed estimated GFR (eGFR) will be calculated using the Chronic Kidney Dise [facility] Epidemiology Collaboration (CKD-EPI) equation. Calcium 8.5 8.5 - 10.1 mg/dL 08/28/2020 11:02 PM [facility] Bilirubin Total 0.2 0.2 - 1.3 mg/dL 08/28/2020 11:05 P M [facility] Albumin 3.6 3.4 - 5.0 g/dL 08/28/2020 11:05 PM [facility] Protein Total 7.0 6.8 - 8.8 g/dL 08/28/2020 11:05 PM [facility] Alkaline Phosphatase 113 40 - 150 U/L 08/28/2020 11:05 PM [facility] ALT 15 0 - 50 U/L 08/28/2020 11:05 PM [facility] AST 12 0 - 35 U/L 08/28/2020 11:05 PM [facility] Specimen Anatomical Collection Method Collection Time Receive d Time (Source) Location / / Volume Laterality Blood specimen 08/28/2020 10:21 1 (specimen) PM NURSING CARE PARTNER 10:37 PM NURSING CARE PARTNER Kristel Benítez MD LAB - BLOOD ORDERABLES Performing Organization Address City/State/ZIP Code Phon e Number [facility] [address] [address] [phone] [facility] [address] [place] [address] [facility] [address] [address], [place] [phone] (ABNORMAL) CBC with platelets differential (08/28/2020 10:21 PM NURSING CARE PARTNER) [facility] gist Method Time Signature WBC 7.3 4.0 - 08/28/2020 [facility] 11.0 10:42 PM [facility] 10e9/L [facility] RBC Count 3.77 (L) 3.8 - 5.2 08/28/2020 [facility] 10e12/L 10:42 PM [facility] Hemoglobin 11.1 (L) 11.7 - 08/28/2020 [facility] 15.7 g/dL 10:42 PM [facility] Hematocrit 34.5 (L) 35.0 - 08/28/2020 [facility] 47.0 % 10:42 PM [facility] MCV 92 78 - 100 08/28/2020 [facility] fl 10:42 PM [facility] MCH 29.4 26.5 - 08/28/2020 [facility] 33.0 pg 10:42 PM [facility] MCHC 32.2 31.5 - 08/28/2020 [facility] 36.5 g/dL 10:42 PM [facility] RDW 12.0 10.0 - 08/28/2020 [facility] 15.0 % 10:42 PM [facility] Platelet Count 633 (H) 150 - 450 08/28/2020 [facility] 10e9/L 10:42 PM [facility] Diff Method Automated 08/28/2020 [facility] Method 10:42 PM [facility] % Neutrophils 39.8 % 08/28/2020 [facility] 10:42 PM [facility] % Lymphocytes 48.3 % 08/28/2020 [facility] 10:42 PM [facility] % Monocytes 8.5 % 08/28/2020 [facility] 10:42 PM [facility] % Eosinophils 2.5 % 08/28/2020 [facility] 10:42 PM [facility] % Basophils 0.8 % 08/28/2020 [facility] 10:42 PM [facility] % Immature 0.1 % 08/28/2020 [facility] Granulocytes 10:42 PM [facility] Nucleated RBCs 0 0 /100 08/28/2020 [facility] 10:42 PM [facility] Absolute 2.9 1.6 - 8.3 08/28/2020 [facility] Neutrophil 10e9/L 10:42 PM [facility] Absolute 3.5 0.8 - 5.3 08/28/2020 [facility] Lymphocytes 10e9/L 10:42 PM [facility] Absolute 0.6 0.0 - 1.3 08/28/2020 [facility] Monocytes 10e9/L 10:42 PM [facility] Absolute 0.2 0.0 - 0.7 08/28/2020 [facility] Eosinophils 10e9/L 10:42 PM [facility] Absolute 0.1 0.0 - 0.2 08/28/2020 [facility] Basophils 10e9/L 10:42 PM [facility] Abs Immature 0.0 0 - 0.4 08/28/2020 [facility] Granulocytes 10e9/L 10:42 PM [facility] Absolute 0.0 08/28/2020 [facility] Nucleated RBC 10:42 PM [facility] Specimen Anatomical Collection Method Collection Time Receive d Time (Source) Location / / Volume Laterality Blood specimen 08/28/2020 10:21 1 (specimen) PM NURSING CARE PARTNER 10:37 PM NURSING CARE PARTNER Kristel Benítez MD LAB - BLOOD ORDERABLES Performing Organization Address City/State/ZIP Code Phon e Number [facility] [address] [place] [address] [facility] documented [...] injection 2 mg Given 08/28/2020 11:08 PM NURSING CARE PARTNER 2 mg 2 mg, Intravenous, ONCE, Administer over 4-5 Minutes, On Sat08/28/20 at 2305, For 1 dose, For ordered IV doses 0.1-15 mg give IV Push undiluted over 4-5 minutes. oxyCODONE (ROXICODONE) tablet 5 mg Given 08/29/2020 12:32 AM NURSING CARE PARTNER 5 mg 5 mg, Oral, ONCE, On [...] Recently Administered Medications Times are shown in NURSING CARE PARTNER. Scheduled Medication Order 08/27/2020 08/28/2020 08/29/2020 morphine [...] Time COVID-19 08/18/2020 08/18/2020 09/08/2020 11:39 PM NURSING CARE PARTNER documented as of this encounter Care Teams Cinder Snapper Relationship Specialty Start Date End Date Josh Carrero PCP - General Family Medicine 08/09/20 [place] [address] [address] [place], [place] [phone] Julian Spencer MD MD Orthopedics 03/08/[address] [place] [address] Mariposa Atwood Assigned PCP 04/29/20 11/12/20 MD Nettie [address] [place], [place] [phone] Julian Spencer MD Assigned Musculoskeletal 05/27/[address] Provider [place], [place] [phone] Eugenio Finney Assigned Pediatric 06/19/2005/07 MD David Specialist Provider [address] [facility] 96 [place], [place] [phone] documented as of this encounter
--- OUTSIDE RECORDS SUMMARY | 2022-07-02 21:48 | XMS_ITS | Encounter Summary ---
:2001 Author Organization [place] Address [address] [place] [address] Care Team Providers Name Role Phone Julian Spencer MD Unavailable Mariposa Atwood MD Unavailable [phone] Julian Spencer MD Unavailable Eugenio Finney MD Unavailable [phone] Josh Carrero Primary Care Provider Encounter [...] with No / Unsure 08/18/2020 3:05 PM TYPE CUTTER someone who was confirmed or suspected to have Coronavirus / COVID-19? documented as of this encounter Plan of Treatment Not on filedocumented as of this encounter Visit Diagnoses Not on filedocumented in this encounter Additional Health Concerns Infection Onset Date Last Indicated Resolved Time Rule Out COVID-19 08/18/2020 08/18/2020 08/18/2020 7:2 9 PM TYPE CUTTER COVID-19 08/18/2020 08/18/2020 09/08/2020 11:39 PM TYPE CUTTER documented as of this encounter Care Teams Lace Stripper Relationship Specialty Start Date End Date Josh Carrero PCP - General Family Medicine 08/09/[address] [address] Julian Spencer MD MD Orthopedics 03/08/[address] [place], [place] [phone] Mariposa Atwood Assigned PCP 04/29/20 11/12/20 MD Nettie [address] [facility] [place] [address] Julian Spencer MD Assigned Musculoskeletal 05/27/[address] Provider [place], [place] [phone] Eugenio Finney Assigned Pediatric 06/19/2005/07 MD David Specialist Provider [address] [facility] [address] [place], [place] [phone] documented as of this encounter
--- OUTSIDE RECORDS SUMMARY | 2022-07-02 21:48 | XMS_ITS | Encounter Summary ---
:2001 Author Organization [place] Address [address] [place] [address] Care Team Providers Name Role Phone Julian Spencer MD Unavailable Mariposa Atwood MD Unavailable [phone] Julian Spencer MD Unavailable Eugenio Finney MD Unavailable [phone] Josh Carrero Primary Care Provider Encounter [...] with No / Unsure 08/28/2020 8:19 PM SENIOR MAINTENANCE 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 documented as of this encounter Plan of Treatment Not on filedocumented as of this encounter Visit Diagnoses Not on filedocumented in this encounter Additional Health Concerns Infection Onset Date Last Indicated Resolved Time COVID-19 08/18/2020 08/18/2020 09/08/2020 11:39 PM SENIOR MAINTENANCE MECHANIC documented as of this encounter Care Teams Agricultural Plow Operator Relationship Specialty Start Date End Date Josh Carrero PCP - General Family Medicine 08/09/20 [place] [address] [place] [address] Julian Spencer MD MD Orthopedics 03/08/[address] [place], [place] [phone] [place], [place] [phone] Mariposa Atwood Assigned PCP 04/29/20 11/12/20 MD Nettie [address] [facility] [place], [place] [phone] Julian Spencer MD Assigned Musculoskeletal 05/27/[address] [place], [place] [phone] Provider [place], [place] [phone] Eugenio Finney Assigned Pediatric 06/19/2005/07 MD David Specialist Provider [address] [place] [address] 96 [place], [place] [address] documented as of this encounter
--- OUTSIDE RECORDS SUMMARY | 2022-07-02 21:48 | XMS_ITS | Encounter Summary ---
:2001 Author Organization [place] Address [address] [place] [address] Care Team Providers Name Role Phone Julian Spencer MD Unavailable Mariposa Atwood MD Unavailable [phone] Julian Spencer MD Unavailable Eugenio Finney MD Unavailable [phone] Josh Carrero Primary Care Provider Reason for Visit Reason Onset Date Comments Abnormal Labs 08/18/2020 covid positive Encounter Details Date Type Department Care Team Description 08/18/2020 Telephone [facility] Violet Fowler [facility] FOREIGN EXCHANGE POSITION CLERK positive ) [address] [place] [address] Social History Tobacco Use Types Packs/Day [...] with No / Unsure 08/18/2020 3:05 PM DITCHING MACHINE ENGINEER someone who was confirmed or suspected to have Coronavirus / COVID-19? documented as of this encounter Miscellaneous Notes Telephone Encounter - Violet Fowler LPN - 08/18/2020 7:48 PM CST Coronavirus (COVID-19) Notification Caller Name (Patient, parent, daughter/son, grandparent, etc) Patient Reason for call Notify of Positive Coronavirus (COVID-19) lab results, assess symptoms, review [facility] recommendations Lab Result Lab test: 2019-nCoV filter cloth maker-PCR or SARS-CoV-2 PCR Oropharyngeal AND/OR nasopharyngeal swabs is POSITIVE for 2019-nCoV RNA/SARS-COV-2 PCR (COVID-19 virus) RN Recommendations/Instructions per [facility] Coronavirus COVID-19 recommendations Brief introduction script Introduce self then review script: I am calling on behalf of [employer]. We were notified that your Coronavirus test (COVID-19) for was POSITIVE for the virus. I have some information to relay to you but first I wanted to mentionthat the [place] Dept of Health will be contacting you shortly [it's possible MD already called Patient] to talk to you more about how you are feeling and other people you have had contact with who might now also have the virus. Also, [facility] is Partnering with the [facility] for Covid-19 research, you may be [...] list on the EPA website at www.epa.gov/pesticide-registration/ ukbo-a-oweldrendgjsm-tuc-wkijgwd-jbcj-cov-2. ??? Cover your mouth and nose with a mask, tissue or other face covering to avoid spreading germs. ??? Wash your hands and face often with soap and water. ??? Caregivers in these groups are at risk for severe illness due to COVID-19: o People 65 years and older o People who live in a penitentiary or long-term care facility o People with [...] found in many medicines (both prescribed and xkdt-xnz-ddfblvv medicines). Read all labels to be sure [...] lips or face 5. Sign up for [employer]. We know it's scary to hear that you have COVID-19. We want to track your symptoms to make sure you're okay over the next 2 weeks. Please look for an email from [employer]--this is a free, online program that we'll use to keep in touch. To sign up, follow the link in the email. Learn more at [email or web address]. Where can I get more information? [facility] [place]: [email or web address] ??? Coronavirus Basics: www.health.[facility].oh.us/diseases/coronavirus/basics.html ??? What to Do If You're Sick: www.cdc.gov/coronavirus/2019-ncov/about/eovdp-imku-yebf.html ??? Ending Home Isolation: www.cdc.gov/coronavirus/2019-ncov/hcp/rvhxckdpdqn-cp-riga-patients.html ??? Caring for Someone with COVID-19: www.cdc.gov/coronavirus/2019-ncov/jk-how-cng-sick/tjij-fvp-jlmymng.html ??? [facility] clinical trials (COVID-19 research studies): clinicalaffairs.[facility]/qrg-hcnqmkrm-mfuhzw A Positive COVID-19 letter will be sent via Wedivitet or the mail. (Exception, no letters sent to Presurgerical/Preprocedure Patients) Violet Fowler LPN HING MACHINE ENGINEER documented in this encounter Plan of Treatment Not on filedocumented as of this encounter Visit Diagnoses Not on filedocumented in this encounter Additional Health Concerns Infection Onset Date Last Indicated Resolved Time Rule Out COVID-19 08/18/2020 08/18/2020 08/18/2020 7:2 9 PM DITCHING MACHINE ENGINEER COVID-19 08/18/2020 08/18/2020 09/08/2020 11:39 PM DITCHING MACHINE ENGINEER documented as of this encounter Care Teams Service Station Operator Relationship Specialty Start Date End Date Josh Carrero PCP - General Family Medicine 08/09/[address] [phone] Julian Spencer MD MD Orthopedics 03/08/[address] [place] [phone] Mariposa Atwood Assigned PCP 04/29/20 11/12/20 MD Nettie [address] [place] [address] Julian Spencer MD Assigned Musculoskeletal 05/27/[address] Provider [place], [place] [phone] Eugenio Finney Assigned Pediatric 06/19/2005/07 MD David Specialist Provider [address] [facility] 96 [place], [place] [address] documented as of this encounter
--- OUTSIDE RECORDS SUMMARY | 2022-07-02 21:48 | XMS_ITS | Encounter Summary ---
:2001 Author Organization [place] Address [address] [place] [address] Care Team Providers Name Role Phone Julian Spencer MD Unavailable Mariposa Atwood MD Unavailable [phone] Julian Spencer MD Unavailable Eugenio Finney MD Unavailable [phone] Josh Carrero Primary Care Provider Reason for Visit Reason Onset Date Comments Clinic Care Coordination - Follow-up 08/19/2020 Encounter Details Date Type Department Care Team Description 08/19/2020 Telephone [facility] Sabina Asif, RUTH Clinic Care Coordination Orthopedic Clinic [phone] - Follow-u [facility] ([facility]) [address] [place] [address] [address] [place] [address] Social History Tobacco Use Types [...] with No / Unsure 08/18/2020 3:05 PM [employer] DISTRICT SUPERVISOR someone who was confirmed or suspected to have Coronavirus / COVID-19? documented as of this encounter Miscellaneous Notes Telephone Encounter - Sabina Asif, RN - 08/19/2020 3:16 PM CST Postop [...] back prn. Mom agreed. Sabina Asif RN. OLEUM PRODUCTS DISTRICT SUPERVISOR documented in this encounter Plan of Treatment Not on filedocumented as of this encounter Visit Diagnoses Not on filedocumented in this encounter Additional Health Concerns Infection Onset Date Last Indicated Resolved Time COVID-19 08/18/2020 08/18/2020 09/08/2020 11:39 PM [employer] DISTRICT SUPERVISOR documented as of this encounter Care Teams Hand Spring Repairer Helper Relationship Specialty Start Date End Date Josh Carrero PCP - General Family Medicine 08/09/[address] [address] Julian Spencer MD MD Orthopedics 03/08/[address] [place] [phone] Mariposa Atwood Assigned PCP 04/29/20 11/12/20 MD Nettie [address] [place], [place] [phone] Julian Spencer MD Assigned Musculoskeletal 05/27/20 [address] [facility] [place] [address] Eugenio Finney Assigned Pediatric 06/19/2005/07 MD David Specialist Provider [address] [place] [address] 96 [place] [address] documented as of this encounter
--- OUTSIDE RECORDS SUMMARY | 2022-07-02 21:48 | XMS_ITS | Encounter Summary ---
:2001 Author Organization [facility] Address [address] [place] [address]. [place] [address] Care Team Providers Name Role Phone Julian Spencer MD Unavailable Mariposa Atwood MD Unavailable [phone] Julian Spencer MD Unavailable Eugenio Finney MD Unavailable [phone] Josh Carrero Primary Care Provider Encounter Details Date Type Department Care Team Description 08/28/2020 Telephone [facility] - Donaldo Lee, Musculoskeletal Serv ice Line [address] [place], [place] [phone] [place], [place] [phone] (Wo rk) Social History Tobacco Use Types [...] with No / Unsure 08/28/2020 8:19 PM SUGAR CANE GROWER someone who was confirmed or suspected to [...] Ronald Lee MD Orthopaedic Surgery PGY-4 #: [phone] R CANE GROWER documented in this encounter Plan of Treatment Not on filedocumented as of this encounter Visit Diagnoses Not on filedocumented in this encounter Additional Health Concerns Infection Onset Date Last Indicated Resolved Time COVID-19 08/18/2020 08/18/2020 09/08/2020 11:39 PM SUGAR CANE GROWER documented as of this encounter Care Teams Manager Installation Relationship Specialty Start Date End Date Josh Carrero PCP - General Family Medicine 08/09/[address] [address] Julian Spencer MD MD Orthopedics 03/08/[address] [place], [place] [phone] Mariposa Atwood Assigned PCP 04/29/20 11/12/20 MD Nettie [address] [place], [place] [phone] Julian Spencer MD Assigned Musculoskeletal 05/27/[address] [place] [address] Eugenio Finney Assigned Pediatric 06/19/2005/07 MD David Specialist Provider [address] [place] [address] 96 [place], [place] [id number] documented as of this encounter
--- OUTSIDE RECORDS SUMMARY | 2022-07-02 21:48 | XMS_ITS | Encounter Summary ---
:2001 Author Organization [facility] Address [address] [place] [address] Care Team Providers Name Role Phone Julian Spencer MD Unavailable Mariposa Atwood MD Unavailable [phone] Julian Spencer MD Unavailable Eugenio Finney MD Unavailable [phone] Josh Carrero Primary Care Provider Encounter [...] with No / Unsure 08/31/2020 2:56 PM MANAGER MULTICULTURAL someone who was confirmed or suspected to have Coronavirus / COVID-19? documented as of this encounter Plan of Treatment Not on filedocumented as of this encounter Visit Diagnoses Not on filedocumented in this encounter Additional Health Concerns Infection Onset Date Last Indicated Resolved Time COVID-19 08/18/2020 08/18/2020 09/08/2020 11:39 PM MANAGER MULTICULTURAL documented as of this encounter Care Teams Hog Operator Relationship Specialty Start Date End Date Josh Carrero PCP - General Family Medicine 08/09/20 [place] [address] [place] [address] Julian Spencer MD MD Orthopedics 03/08/[address] [place], [place] [id number] [place], [place] [phone] Mariposa Atwood Assigned PCP 04/29/20 11/12/20 MD Nettie [address] [facility] [place], [place] [phone] Julian Spencer MD Assigned Musculoskeletal 05/27/[address] [place], [place] [phone] Provider [place], [place] [phone] Eugenio Finney Assigned Pediatric 06/19/2005/07 MD David Specialist Provider [address] [place] [address] 96 [place], [place] [address] documented as of this encounter
--- OUTSIDE RECORDS SUMMARY | 2022-07-02 21:48 | XMS_ITS | Encounter Summary ---
:2001 Author Organization [facility] Address [address] [place] [address]. [place] [address] Care Team Providers Name Role Phone Julian Spencer MD Unavailable Mariposa Atwood MD Unavailable [phone] Julian Spencer MD Unavailable Eugenio Finney MD Unavailable [phone] Josh Carrero Primary Care Provider Reason for Visit Reason Comments Post-op Problem Rash Encounter Details Date Type Department Care Team Description 08/18/2020 Emergency [facility] Herpes zoster without complication; [facility] Emergency MD Justin 2019 novel coronavirus disease (COVID-19 ) Department [address] [place] [address] [address] [place] [address] [place], [place] [phone] [address] (Wo rk) Social History Tobacco Use [...] with No / Unsure 08/18/2020 3:05 PM DOPSTER someone who was confirmed or suspected to have Coronavirus / COVID-19? documented as of this encounter Last Filed Vital Signs Vital Sign Reading Time Taken Comments Blood Pressure 107/61 08/18/2020 6:21 PM DOPSTER Pulse 106 08/18/2020 6:21 PM DOPSTER Temperature 36.8 ??C (98.3 ??F) 08/18/2020 6:21 PM DOPSTER Respiratory Rate 16 08/18/2020 6:21 PM DOPSTER Oxygen Saturation 98% 08/18/2020 6:21 PM DOPSTER Inhaled Oxygen Concentration - - Weight 54.4 kg (120 lb) 08/18/2020 5:22 PM DOPSTER Height - - Body Mass Index 21.26 08/09/2020 6:50 AM DOPSTER documented in this encounter Discharge Instructions Discharge Sammie Sanchez MD - 08/18/2020 6:17 PM CST Emergency Department Discharge Information for Dakota Duncan was seen in the [facility] Emergency Department today for back pain [...] with 0.4 and 0.8 ml, call us ([phone]) or check with your doctor about the [...] pain.) - Upset stomach or vomiting - shelter use may cause bleeding in the stomach or intestines. See her doctor if she has black or bloody vomit or stool (poop). TER documented in this encounter Medications at Time [...] 12 hours. Repeat daily. naloxone (NARCAN) 4 Cos Cob 1 spray (4 mg) 0.2 mL 0 [...] Spencer. Estee Dick MD Orthopedic Surgery, PGY4 TER documented in this encounter ED Notes Beverly Lora RN - 08/18/2020 3:57 PM CST Post-op day 9 from spinal fusion. Last night pt developed fever and has a rash to R flank as well asincreased pain, especially when walking. TER Glen Sharma MD - 08/18/2020 3:55 PM [...] NEG^Negative Ketones Urine Negative NEG^Negative mg/dL Specific [place] Urine 1.009 1.003 - 1.035 Blood Urine [...] lidocaine 1 % (0.2 mLs Given 08/18/20 9831) History obtained from family. Old chart from [facility] reviewed, supported history as above. Labs [...] Pediatric Hospital Medicine Fellow, PGY4 Pager # [phone] 08/18/2020 [facility] This data collected with the [...] or prolonged fever. Glen Sharma MD 08/18/201947 TER documented in this encounter Plan of Treatment Not on filedocumented as of this encounter Procedures Procedure Name Priority Date/Time Associated Diagnosis Comme nts INFLUENZA A/B & STAT 08/18/2020 6:08 Herpes zoster Results for this SARS-COV2 PCR PM DOPSTER without complication proced ure are in MULTIPLEX the results section. VARICELLA ZOSTER VIRUS STAT 08/18/2020 5:24 Herpes zoster R esults for this ANTIBODY IGG PM DOPSTER without complication procedu re are in the results section. VARICELLA ZOSTER STAT 08/18/2020 5:24 Herpes zoster Results for this ANTIBODY IGM PM DOPSTER without complication procedu re are in the results section. CBC WITH PLATELETS & STAT 08/18/2020 5:10 Resu lts for this DIFFERENTIAL PM DOPSTER procedure are i n the results section. LIPASE STAT 08/18/2020 5:10 Results for this PM DOPSTER procedure are i n the results section. CRP INFLAMMATION STAT 08/18/2020 5:10 Results for this PM DOPSTER procedure are i n the results section. COMPREHENSIVE STAT 08/18/2020 5:10 Results for this METABOLIC PANEL PM DOPSTER procedure ar e in the results section. XR THORACIC LUMBAR STAT 08/18/2020 5:02 Result s for this STANDING 2 VIEWS PM DOPSTER procedure a re in the results section. HCG QUALITATIVE URINE STAT 08/18/2020 5:01 Res ults for this POCT PM DOPSTER procedure are i n the results section. ROUTINE UA WITH STAT 08/18/2020 4:50 Results f or this MICROSCOPIC PM DOPSTER procedure are i n the results section. URINE CULTURE STAT 08/18/2020 4:36 Herpes zoster Results fo r this PM DOPSTER without complication procedu re are in the results section. documented in this encounter Results (ABNORMAL) Symptomatic Influenza A/B & SARS-CoV2 (COVID-19) Virus PCR Multiplex (08/18/2020 6:08PM DOPSTER) [facility] Method Time Signature Flu A/B & Nasopharyngeal 08/18/2020 [facility] SARS-COV-2 6:11 PM DOPSTER AMPLATZ PCR Source [facility] SARS-CoV-2 POSITIVE (AA) 08/18/2020 [facility] PCR Result 7:29 PM DOPSTER [facility] Comment: SARS-CoV2 (COVID-19) RNA detect ed, presumed positive. Influenza A PCR Negative NEG^Negative 08/18/2020 7:29 PM CS T [facility] Comment: Influenza A RNA not detected, p resumed negative. Influenza B PCR Negative NEG^Negative 08/18/2020 7:29 PM CS T [facility] Comment: Influenza B RNA not detected, p resumed negative. Respiratory Syncytial (Note) 08/18/2020 7:29 PM DOPSTER [facility] Virus PCR [facility] Comment: Test not performed with this ar thodology. Flu A/B & SARS-CoV-2 PCR (Note) 08/18/2020 7:29 PM DOPSTER [facility] Comment: Testing was performed [...] test, if coinfection would change clinical management. [facility] are certi fied under the Clinical Laboratory Improvement Amendments of 1988 (CLIA-88) as qualified to perform moderate and/or high complexity laboratory testin g. Specimen (Source) Anatomical Collection Method Collection Time Re ceived Time Location / / Volume Laterality Specimen from 08/18/2020 6:08 08/18/2020 nasopharyngeal PM DOPSTER 6:19 PM DOPSTER structure (specimen) Sammie Padilla MD LAB - MICRO GENERAL ORDERABL ES Performing Organization Address City/State/ZIP Code Phon e Number [facility] [address] [place] [address] [facility] OF [place] [facility] Varicella zoster antibody IgM (08/18/2020 5:24 PM DOPSTER) P athologist Signature Vari Zoster JOSUE 0.04 <=0.90 ISR 08/21/2020 [facility] [place] MEDRANO TZ IGM 1:10 AM DOPSTER [facility] Comment: (Note) INTERPRETIVE INFORMATION: Varicella-Zost er Virus [...] months ? post-infection or immunization. Performed By: [employer] [address] [place] [address] Entry Level Drafter: Brandi Dooley MD Specimen Anatomical Collection Method Collection Time Receive d Time (Source) Location / / Volume Laterality Blood specimen 08/18/2020 5:24 PM 021 6:56 (specimen) DOPSTER PM DOPSTER Sammie Padilla MD LAB - BLOOD ORDERABLES Performing Organization Address City/State/ZIP Code Phon e Number U OF [facility] U OF [facility] (ABNORMAL) Varicella Zoster Virus Antibody IgG (08/18/2020 5:24 PM DOPSTER) athologist Signature Varicella 0.9 (H) 0.0 - 0.8 08/19/2020 [facility] Zoster Virus AI 12:28 PM DOPSTER OR MEDICAL Antibody IgG [facility] Comment: Equivocal, please recollect. Antibody index (AI) values reflect quali tative changes in antibody concentration that cannot be directly as sociated with clinical condition or disease state. Specimen Anatomical Collection Method Collection Time Receive d Time (Source) Location / / Volume Laterality Blood specimen 08/18/2020 5:24 PM 021 6:56 (specimen) DOPSTER PM DOPSTER Sammie Padilla MD LAB - BLOOD ORDERABLES Performing Organization Address City/State/ZIP Code Phon e Number [facility] [address] [place] [address] [facility] (ABNORMAL) Comprehensive metabolic panel (08/18/2020 5:10 PM DOPSTER) Analysis Performed At Patho logist Time Signature Sodium 138 133 - 144 08/18/2020 [facility] mmol/L 5:44 PM [facility] Potassium 3.6 3.4 - 5.3 08/18/2020 [facility] mmol/L 5:44 PM [facility] Chloride 104 96 - 110 08/18/2020 [facility] mmol/L 5:44 PM [facility] Carbon Dioxide 30 20 - 32 08/18/2020 [facility] mmol/L 5:52 PM [facility] Anion Gap 4 3 - 14 08/18/2020 [facility] mmol/L 5:52 PM [facility] Glucose 110 (H) 70 - 99 08/18/2020 [facility] mg/dL 5:52 PM [facility] Urea Nitrogen 8 7 - 30 08/18/2020 [facility] mg/dL 5:52 PM [facility] Creatinine 0.51 0.50 - 08/18/2020 [facility] 1.00 mg/dL 5:52 PM [facility] GFR Estimate >90 >60 08/18/2020 [facility] mL/min/{1. 5:52 PM [facility] 73_m2} [facility] Comment: Non GFR Calc Starting 07/22/2018, serum creatinine ba sed estimated GFR (eGFR) will be calculated using the Chronic Kidney Dise ase Epidemiology Collaboration (CKD-EPI) equation. GFR Estimate If >90 >60 mL/min/{1.73_m2} 08/18/2020 5: 52 PM [facility] Black [facility] Comment: GFR Calc Starting 07/22/2018, serum creatinine ba sed estimated GFR (eGFR) will be calculated using the Chronic Kidney Dise ase Epidemiology Collaboration (CKD-EPI) equation. Calcium 9.0 8.5 - 10.1 08/18/2020 5:52 PM [facility] mg/dL [facility] Bilirubin Total 0.2 0.2 - 1.3 08/18/2020 5:53 PM UN[facility] mg/dL [facility] Albumin 3.2 (L) 3.4 - 5.0 g/dL 08/18/2020 5:53 PM UNIVER [facility] Protein Total 7.0 6.8 - 8.8 g/dL 08/18/2020 5:53 PM [facility] Alkaline Phosphatase 122 40 - 150 U/L [...] specimen 08/18/2020 5:10 PM 021 5:24 (specimen) DOPSTER PM DOPSTER Sammie Padilla MD LAB - BLOOD ORDERABLES Performing Organization Address City/[facility] Code Phon e Number [place] [phone] [facility] Lipase (08/18/2020 5:10 PM DOPSTER) P athologist Signature Lipase 109 73 - 393 08/18/2020 [facility] U/L 5:53 PM [facility] Specimen Anatomical Collection Method Collection Time Receive d Time (Source) Location / / Volume Laterality Blood specimen 08/18/2020 5:10 PM 021 5:24 (specimen) DOPSTER PM DOPSTER Sammie Padilla MD LAB - BLOOD ORDERABLES Performing Organization Address City/[facility] Phon e Number [address] [address] [facility] (ABNORMAL) CRP inflammation (08/18/2020 5:10 PM DOPSTER) [facility] Time Signature CRP Inflammation 16.0 (H) 0.0 - 8.0 08/18/2020 [facility] F mg/L 5:53 PM [facility] Specimen Anatomical Collection Method Collection Time Receive d Time (Source) Location / / Volume Laterality Blood specimen 08/18/2020 5:10 PM 021 5:24 (specimen) DOPSTER PM DOPSTER Sammie Padilla MD LAB - BLOOD ORDERABLES Performing Organization Address City/State/ZIP Code Phon e Number [facility] [address] [place] [address] [facility] (ABNORMAL) CBC with platelets differential (08/18/2020 5:10 PM DOPSTER) [facility] [employer] Method Time Signature WBC 6.7 4.0 - 08/18/2020 [facility] 11.0 5:28 PM [facility] 10e9/L [facility] RBC Count 3.57 (L) 3.8 - 5.2 08/18/2020 [facility] 10e12/L 5:28 PM [facility] Hemoglobin 10.7 (L) 11.7 - 08/18/2020 [facility] 15.7 g/dL 5:28 PM [facility] Hematocrit 32.5 (L) 35.0 - 08/18/2020 [facility] 47.0 % 5:28 PM [facility] MCV 91 78 - 100 08/18/2020 [facility] fl 5:28 PM [facility] MCH 30.0 26.5 - 08/18/2020 [facility] 33.0 pg 5:28 PM [facility] MCHC 32.9 31.5 - 08/18/2020 [facility] 36.5 g/dL 5:28 PM [facility] RDW 11.7 10.0 - 08/18/2020 [facility] 15.0 % 5:28 PM [facility] Platelet Count 515 (H) 150 - 450 08/18/2020 [facility] 10e9/L 5:28 PM [facility] Diff Method Automated 08/18/2020 [facility] Method 5:28 PM [facility] % Neutrophils 51.4 % 08/18/2020 [facility] 5:28 PM [facility] % Lymphocytes 36.1 % 08/18/2020 [facility] 5:28 PM [facility] % Monocytes 8.6 % 08/18/2020 [facility] 5:28 PM [facility] % Eosinophils 3.0 % 08/18/2020 [facility] 5:28 PM [facility] % Basophils 0.6 % 08/18/2020 [facility] 5:28 PM [facility] % Immature 0.3 % 08/18/2020 [facility] Granulocytes 5:28 PM [facility] Nucleated RBCs 0 0 /100 08/18/2020 [facility] 5:28 PM [facility] Absolute 3.5 1.6 - 8.3 08/18/2020 [facility] Neutrophil 10e9/L 5:28 PM [facility] Absolute 2.4 0.8 - 5.3 08/18/2020 [facility] Lymphocytes 10e9/L 5:28 PM [facility] Absolute 0.6 0.0 - 1.3 08/18/2020 [facility] Monocytes 10e9/L 5:28 PM [facility] Absolute 0.2 0.0 - 0.7 08/18/2020 [facility] Eosinophils 10e9/L 5:28 PM [facility] Absolute 0.0 0.0 - 0.2 08/18/2020 [facility] Basophils 10e9/L 5:28 PM [facility] Abs Immature 0.0 0 - 0.4 08/18/2020 [facility] Granulocytes 10e9/L 5:28 PM [facility] Absolute 0.0 08/18/2020 [facility] Nucleated RBC 5:28 PM [facility] Specimen Anatomical Collection Method Collection Time Receive d Time (Source) Location / / Volume Laterality Blood specimen 08/18/2020 5:10 PM 021 5:24 (specimen) DOPSTER PM DOPSTER Sammie Padilla MD LAB - BLOOD ORDERABLES Performing Organization Address City/State/ZIP Code Phon e Number [facility] [address] [place] [address] [facility] XR Thoracic Lumbar Standing 2 Views (08/18/2020 5:02 PM DOPSTER) Anatomical Region Laterality Modality C-spine, T-spine, L-spine Computed Radio graphy Specimen (Source) Anatomical Location Collection Method / Collectio n Time Received Time / Laterality Volume Impressions 08/18/2020 5:26 PM DOPSTER IMPRESSION: No definite hardware failure is identified. JUAN KAYE MD Narrative 08/18/2020 5:26 PM DOPSTER HISTORY: Concern for possible hardware movement. COMPARISON: [...] hCG qual urine POCT (08/18/2020 5:01 PM DOPSTER) P athologist Signature HCG Qual Urine Negative neg Internal QC OK Yes Specimen (Source) Anatomical Collection Method Collection Time Re ceived Time Location / / Volume Laterality Urine specimen 08/18/2020 5:01 PM (specimen) DOPSTER Glen Sharma MD LAB - ENTER/EDIT POCT (ABNORMAL) UA with Microscopic (08/18/2020 4:50 PM DOPSTER) [facility] Method Time Signature Color Urine Light Yellow 08/18/2020 [facility] 5:17 PM [facility] Appearance Urine Clear 08/18/2020 [facility] F 5:17 PM [facility] Glucose Urine Negative NEG^Negat 08/18/2020 [facility] mindy mg/dL 5:17 PM [facility] Bilirubin Urine Negative NEG^Negat 08/18/2020 [facility] mindy 5:17 PM [facility] Ketones Urine Negative NEG^Negat 08/18/2020 [facility] mindy mg/dL 5:17 PM [facility] Specific [place] 1.009 1.003 - 08/18/2020 [facility] F Urine 1.035 5:17 PM [facility] Blood Urine Negative NEG^Negat 08/18/2020 [facility] mindy 5:17 PM [facility] pH Urine 6.5 5.0 - 7.0 08/18/2020 [facility] pH 5:17 PM [facility] Protein Albumin Negative NEG^Negat 08/18/2020 [facility] Urine mindy mg/dL 5:17 PM [facility] Urobilinogen Normal 0.0 - 2.0 08/18/2020 [facility] mg/dL mg/dL 5:17 PM [facility] Nitrite Urine Negative NEG^Negat 08/18/2020 [facility] mindy 5:17 PM [facility] Leukocyte Negative NEG^Negat 08/18/2020 [facility] Esterase Urine mindy 5:17 PM [facility] Source Clean catch 08/18/2020 [facility] urine 5:01 PM [facility] WBC Urine 1 0 - 5 08/18/2020 [facility] /HPF 5:17 PM [facility] RBC Urine 1 0 - 2 08/18/2020 [facility] /HPF 5:17 PM [facility] Bacteria Urine Few (A) NEG^Negat 08/18/2020 [facility] mindy /HPF 5:17 PM [facility] Squamous 2 (H) 0 - 1 08/18/2020 [facility] Epithelial /HPF /HPF 5:17 PM [facility] Specimen Anatomical Collection Method Collection Time Receive d Time (Source) Location / / Volume Laterality Urine specimen URINE SPECIMEN 08/18/2020 4:50 PM 08/18 5:01 (specimen) OBTAINED BY CLEAN DOPSTER PM DOPSTER CATCH PROCEDURE / Unknown Sammie Padilla MD LAB - URINE ORDERABLES Performing Organization Address City/State/ZIP Code Phon e Number [facility] [address] [place] [address] [facility] Urine Culture (08/18/2020 4:36 PM DOPSTER) Component Value Ref Test Analysis Performed At [facility] Range Method Time Signature Specimen Unspecified INFECTIOUS Description Urine DISEASES [facility] Special Specimen 08/18/2020 INFECTIOUS Requests received in 8:11 PM DOPSTER DISEASES preservative [facility], [facility] Culture Micro No growth 08/19/2020 INFECTIOUS 5:17 PM DOPSTER DISEASES [facility], [facility] Specimen (Source) Anatomical Collection Method Collection Time Re ceived Time Location / / Volume Laterality Unspecified Urine URINE SPECIMEN 08/18/2020 4:36 08/18 6:14 OBTAINED BY CLEAN PM DOPSTER PM DOPSTER CATCH PROCEDURE / Unknown Sammie Padilla MD LAB - MICRO GENERAL ORDERABL ES Performing Organization Address City/State/ZIP Code Phon e Number INFECTIOUS DISEASES DIAGNOSTIC [address] [facility] [address] [address] LABORATORY, [facility] documented in this encounter Visit Diagnoses Diagnosis Herpes zoster without complication 2018 novel coronavirus disease (COVID-19 ) documented in this encounter Administered Medications Inactive Administered Medications - up to 3 most recent administrations Medication Order MAR Action Action Date Dose Rate Site lidocaine 1 % Given 08/18/2020 4:59 PM DOPSTER 0.2 mLs Starting on Ariela 08/18/20 at 1642, For 1 dose, Nichole Garcia: cabinet override lidocaine 1 % Given 08/18/2020 5:16 PM DOPSTER 0.2 mLs Starting on Ariela 08/18/20 at 1709, For 1 dose, Nichole Garcia: cabinet override ondansetron (ZOFRAN-ODT) ODT tab 4 mg Given 08/18/2020 4:58 PM DOPSTER 4 mg 4 mg, Oral, ONCE, On Ariela 08/18/20 at 1650, For 1 dose, With dry hands, peel back foil backing and gently remove tablet. Do not push oral disintegrating tablet through foil backing. Administer immediately on tongue and oral disintegrating tablet dissolves in seconds, then swallow with saliva. Liquid not required. oxyCODONE (ROXICODONE) tablet 5 mg Given 08/18/2020 4:58 PM DOPSTER 5 mg 5 mg, Oral, ONCE, On Ariela 08/18/20 at 1650, For 1 dose documented in this encounter Active and Recently Administered Medications Times are shown in DOPSTER. Scheduled Medication Order 08/16/2020 08/17/2020 08/18/2020 ondansetron (ZOFRAN-ODT) ODT tab 4 mg (COMPLETED) 1657 (Given - Provider: Sophia Garcia, RN) 4 mg, Oral, ONCE, Ariela 08/18/20 [...] COVID-19 08/18/2020 08/18/2020 08/18/2020 7:2 9 PM DOPSTER documented as of this encounter Care Teams Rn Outpatient Surgery Relationship Specialty Start Date End Date Josh Carrero PCP - General Family Medicine 08/09/[address] [address] Julian Spencer MD MD Orthopedics 03/08/[address] [place], [place] [phone] Mariposa Atwood Assigned PCP 04/29/20 11/12/20 MD Nettie [address] [place] [address] Julian Spencer MD Assigned Musculoskeletal 05/27/[address] Provider [place], [place] [phone] Eugenio Finney Assigned Pediatric 06/19/2005/07 MD David Specialist Provider [address] [facility] [address] [place], [place] [phone] documented as of this encounter
--- OUTSIDE RECORDS SUMMARY | 2022-07-02 21:48 | XMS_ITS | Encounter Summary ---
:2001 Author Organization [place] Address [address] [place] [address]. [place] [address] Care Team Providers Name Role Phone Julian Spencer MD Unavailable Mariposa Atwood MD Unavailable [phone] Julian Spencer MD Unavailable Eugenio Finney MD Unavailable [phone] Josh Carrero Primary Care Provider Reason for Visit Reason Comments Follow Up PACCT Encounter Details Date Type Department Care Team Description 08/31/2020 Virtual Visit [facility] Lisa Douglas Felisa jain post- operative pain (Primary Dx); Pediatric MD Julian Inflammation of operative incision; Specialty Clinic [facility] S/P spinal fusion; [address] [place] [address] [place] [address] [phone] Social History Tobacco Use Types Packs/Day Years [...] oxycodone 5-10 mg PO q4h PRN The [place] Prescription Monitoring Program Database has not been [...] [facility] go [facility] for evaluation. I also gave refills of celecoxib, diazepam and oxycodone. Follow-Up: With me in 4-6 weeks. Douglas Gonzalez MD, MAEd Building Energy Retrofit Technician of Pediatrics Marine Engineering Teacher, Pain and Advanced/Complex Care Team (PACCT) [facility] documented in this encounter Nursing Notes Anyi Mederos CMA - 08/31/2020 1:00 PM CST How would you like to obtain your AVS? Jacob Dakota Casiano complains of Chief Complaint Patient presents with ??? Follow Up PACCT Patient would like the video invitation sent by: Send to e-mail at: [email or web address] Patient is located in [place]? Yes I have reviewed and updated the patient's medication list, allergies and preferred pharmacy. Anyi Mederos CMA NG ROOM OPERATOR documented in this encounter Plan of [...] Time COVID-19 08/18/2020 08/18/2020 09/08/2020 11:39 PM DRYING ROOM OPERATOR documented as of this encounter Care Teams Marketing Strategist Relationship Specialty Start Date End Date Josh Carrero PCP - General Family Medicine 08/09/[address] [address] Julian Spencer MD MD Orthopedics 03/08/[address] [place], [place] [id number] Mariposa Atwood Assigned PCP 04/29/20 11/12/20 MD Nettie [address] [facility] [place] [place] [address] Julian Spencer MD Assigned Musculoskeletal 05/27/[address] [place] [address] Eugenio Finney Assigned Pediatric 06/19/2005/07 MD David Specialist Provider [address] [facility] [address] [place], [place] [id number] documented as of this encounter
--- OUTSIDE RECORDS SUMMARY | 2022-07-02 21:48 | XMS_ITS | Encounter Summary ---
:2001 Author Organization [place] Address [facility] [place] [address] Care Team Providers Name Role Phone Julian Spencer MD Unavailable Mariposa Atwood MD Unavailable [phone] Julian Spencer MD Unavailable Eugenio Finney MD Unavailable [phone] Josh Carrero Primary Care Provider Encounter Details Date Type Department Care Team Description 08/28/2020 Ancillary Procedure [facility] Naomie Fierro, Imaging [facility] [facility] [place] [phone] [id number] (Wo rk) Social History Tobacco Use Types [...] with No / Unsure 08/28/2020 8:19 PM SHOP FOREMAN someone who was confirmed or suspected to have Coronavirus / COVID-19? documented as of this encounter Plan of Treatment Pending Results Name Type Priority Associated Diagnoses Date/Ti me POC US SOFT TISSUE Imaging STAT 10:02 PM [employer]OP FOREMAN documented as of this encounter Visit Diagnoses Not on filedocumented in this encounter Additional Health Concerns Infection Onset Date Last Indicated Resolved Time COVID-19 08/18/2020 08/18/2020 09/08/2020 11:39 PM [employer]OP [employer]EM[employer] documented as of this encounter Care Teams Cotton Agent Relationship Specialty Start Date End Date Josh Carrero PCP - General Family Medicine 08/09/[address] [address] Julian Spencer MD MD Orthopedics 03/08/[address] [place] [address] Mariposa Atwood Assigned PCP 04/29/20 11/12/20 MD Nettie [address] [place] [address] Julian Spencer MD Assigned Musculoskeletal 05/27/[address] [place] [address] Eugenio Finney Assigned Pediatric 06/19/2005/07 MD David Specialist Provider [address] [facility] [address] [place], [place] [phone] documented as of this encounter
--- OUTSIDE RECORDS SUMMARY | 2022-07-02 21:49 | XMS_ITS | Encounter Summary ---
:2000 Author Organization [place] Address [facility]0 [facility] [place] [address] Care Team Providers Name Role Phone Catina Ha MD Unavailable Mariposa Atwood MD Unavailable [phone] Catina Ha MD Unavailable Eugenio Finney MD Unavailable [phone] Josh Carrero Primary Care Provider Reason for Referral Rehab Therapy Physical Therapy (Routine) - Closed Specialty Diagnoses / Procedures Referred By Contact Refer red To Contact Diagnoses Neuromuscular scoliosis of thoracolumbar region Douglas Gonzalez MD [address] [facility] [address] [place], [place] [address] Referral ID Status Reason Start Date Expiration Date Visits Requ ested Visits Authorized [id number] Closed 08/15/2020 08/15/2021 1 1 Scheduling Instructions Please schedule with Sommer Jeong or Nubia Beltran for Pain PT. Thank you! -Lisa (PACCT) T PHYSIOLOGIST Reason for Visit Auth/Cert Specialty Diagnoses / Procedures Referred By Contact Refer red To Contact Surgery Diagnoses Scoliosis Painful orthopaedic hardware (H) Scoliosis [M41.9] Painful orthopaedic hardware (H) [T84.84XA] Ur Periop Procedures ZZC EXPLORATION OF SPINAL FUSION ZZC REMOVE SPINE FIX DEV,NEW ZZC REMOVE SPINE FIX DEV,POST SGMTAL ZZC REMOVE SPINE FIX DEV,ANTERIOR Removal of Segmental Instrumentation Thoracic 3 - Lumbar 4 [address] [place] [address] Phone: Fax: Referral ID Status Reason Start Date Expiration Date Visits Requ ested Visits Authorized [id number] 1 1 Encounter Details Date Type Department Care Team Description 08/09/2020 - [facility] Catina Ha MD [address] [place], [place] [id number] Neuromuscular scoliosis of thoracolumbar region (Primary Dx); 08/16/2020 Encounter [facility] Pediatric MiahEleanor MD [address] [facility] [address] [facility] [address] [place], [place] [id number] Scoliosis; Medical Surgical Jaiden Bonilla MD [address] [facility] [address] [place], [place] [id number] Painful orthopaedic hardware (H); [address] [place] [address] [place] [address] [address] [place], [place] [address] Scoliosis; [facility] Painful orthopaedic hardware (H); [place] Acute post-oper ative pain; [address] Chronic musculoskeletal pain ; [phone] Chronic pain sy ndrome; Platelet disord er [...] with No / Unsure 08/09/2020 6:36 AM PLANT PHYSIOLOGIST someone who was confirmed or suspected to have Coronavirus / COVID-19? documented as of this encounter Last Filed Vital Signs Vital Sign Reading Time Taken Comments Blood Pressure 113/69 08/16/2020 8:42 AM PLANT PHYSIOLOGIST Pulse 88 08/16/2020 8:42 AM PLANT PHYSIOLOGIST Temperature 36.8 ??C (98.3 ??F) 08/16/2020 8:42 AM PLANT PHYSIOLOGIST Respiratory Rate 20 08/16/2020 8:42 AM PLANT PHYSIOLOGIST Oxygen Saturation 100% 08/16/2020 8:42 AM PLANT PHYSIOLOGIST Inhaled Oxygen Concentration - - Weight 54.7 kg (120 lb 9.5 oz) 08/09/2020 6:50 AM PLANT PHYSIOLOGIST Height 160 cm (5' 3) 08/09/2020 6:50 AM PLANT PHYSIOLOGIST Body Mass Index 21.36 08/09/2020 6:50 AM PLANT PHYSIOLOGIST documented in this encounter Discharge Summaries Darian [...] then she was seeing Dr. Ferrari at [place] for pain. However, Dakota was very frustrated [...] with allograft bone for pseudoarthrosis repair. An 8-inchHemovac drain inserted intra-op was removed by Ortho on 08/11/20. No significant drainage or hemorrhage from incision site. Due to use of rhBMP-2 and its theoretical teratogenic effects, it is strongly recommended that John become for at least 1 year post-op. Her HCG prior to surgery was negative, and she was continued on her GATE WATCHMAN OCP (norethindrone-ethinyl estradiol). Poor bone healing: Endocrinology [...] was started on low dose ketamineinfusion, fenanyl SUSTAINABLE LANDSCAPE ARCHITECT pump without a basal rate, lyrica (pregabalin), and olanzepine. She was also on scheduled valium for muscle relaxation and scheduled tylenol, Under this regimen her pain was much better managed and she was able to start PT and walking around the unit on POD#2. Transferred to the general pediatric floor on 08/12/20. The fentanyl SUSTAINABLE LANDSCAPE ARCHITECT did not help her pain and she [...] Dr. 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 Ed Bartholomew MD PGY-1, Pediatrics Pager: [phone] Attestation: This patient has been seen and evaluated by me today, and management was discussed with the residentphysicians and nurses. I have reviewed today's vital signs, medications, labs and imaging (as pertinent). I agree with all the findings and plan in this note. Total time: >30 minutes; More than 50% of my time was spent in direct, ixzh-tx-lgax counseling with this patient/parent on the issues listed in the assessment/plan section above. Darian Nguyen MD, Pediatric Hospitalist, Pager: [phone] Significant Results and Procedures 08/09/20: Reinsert Segmental [...] lifting >10 lbs x 6 weeks. Adult [facility] Follow-up and recommended labs and tests Follow [...] care physician within 7-10 days. Appointments on [place] and/or [facility] (with [facility] or [facility] provider or service). Call [phone] if you haven't heard regarding these appointments [...] off for 12 hours. Repeat daily.Disp-30 patch, [id number] naloxone (NARCAN) 4 MG/0.1ML nasal spray Rice 1 spray (4 mg) into one nostril [...] Labs Lab Test 06/20/20 0840 TSH 3.01 T PHYSIOLOGIST documented in this encounter Discharge Instructions Discharge [...] are drawn in 3 months time ?? T PHYSIOLOGIST documented in this encounter Medications at Time [...] 12 hours. Repeat daily. naloxone (NARCAN) 4 Rice 1 spray (4 mg) 0.2 mL 0 [...] done. Victor Hugo Talbot MD PGY5 Pager: [phone] FOLLOWUP: Future Appointments Date Time Provider Department Center 09/22/2020 8:30 AM Catina Ha MD [facility] 10/27/2020 2:30 PM Catina Ha MD [facility] T PHYSIOLOGIST Azar Cruz MD - 08/15/2020 10:57 PM [...] her symptoms were consistent with the rare [place] platelet disorder, genetic testing was not consistent [...] will contact family. Azar Cruz MD Pediatric Lime Kiln Tender Division of Pediatric Hematology/Oncology [facility] Pager: [facility]?? Interval History Dakota [...] improvement. This event has precipitated workup at [facility], [place], and [facility] where she was found to have [...] two ago was thought to possibly be [place] platelet disorder (targeted genetictesting was negative). She [...] if needed. (copied from her primary business systems technician's recent note Aug 2020) Dad with nosebleeds, but no surgeries (orphaned so no other history) Mom with heavy periods, no bruising, no issues with surger Maternal Aunt with Type IIa vWD from [facility] records Medications Medications Prior to Admission [...] 60 minutes 6.1 0 - 15 % Janessa Rothman CCLS - 08/15/2020 2:21 PM CST 08/15/20 [...] endzone. Patient social and engaged with this insurance writer. Provided patient with adult coloring and Phase 10 to normalize hospital environment and promote positive coping. No further CFL needs at this time. Anxiety Low Anxiety Major Change/Loss/Stressor/Fears medical condition, self Techniques to [place] with Loss/Stress/Change family presence; peers; cell phone; social media Special Interests Arts and Crafts Outcomes/Follow Up Continue to Follow/Support;Provided Materials (ZTV craft cabin kit, adult coloring, phase 10) T PHYSIOLOGIST Estee Bradne CNP - 08/15/2020 11:56 AM CST Images from the original note were not included. Pediatric Integrative Medicine Subsequent Consultation Primary Care provider: Josh Carrero Consulting Provider: Rosalind Tavera MD Reason for consultation: I was asked to see this patient for anxiety and kwubg-tj-xfrusbt pain. Assessment: Dakota is a 20 year [...] to follow-[facility]Please have family call [facility] at [phone] to arrange for this appointment. Follow-up: We [...] in hearing about a relaxation strategy to hammersmith helper in supporting her pain medications and [...] Young, spent a total of 35 minutes jicp-rx-brgn and on the unit today. Over 50% of this time was spent counseling the patient-family regarding strategies for relaxation to help reduce discomfort and back pain and coordinating care with PACCT and bedside RN. Estee Braden, WET ROOM SUPERVISOR, CPNP, HNB- Pediatric Nurse Practitioner Pediatric Integrative Health & Wellbeing T PHYSIOLOGIST Jaiden Bonilla MD - 08/15/2020 7:00 AM [...] PO Q6H for muscle spasm?? - Hold GATE WATCHMAN flexeril 5 mg BID -??neuro checks Q4H [...] - Continue lidocaine patch Psych: Anxiety - GATE WATCHMAN sertraline 100 mg daily -??Discontinue IV atarax 25 mg Q6H??PRN - Discontinue Zyprexa at bedtime Heme/onc?? 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 Respiratory?? Comfortable [...] Dressing over spine with minimal blood stains T PHYSIOLOGIST Victor Hugo Talbot MD - 08/15/2020 6:39 [...] done. Victor Hugo Talbot MD PGY5 Pager: [phone] FOLLOWUP: Future Appointments Date Time Provider Department Center 09/22/2020 8:30 AM Catina Ha MD [facility] 10/27/2020 2:30 PM Catina Ha MD [facility] T PHYSIOLOGIST Estee Dick MD - 08/14/2020 7:28 AM [...] Orthopedics, Hematology, Endocrinology. Follow-up: Clinic with Dr. aH in 6 weeks with repeat x-rays. Disposition: Pending progress with therapies, pain control on orals, post-op imaging. Orthopaedics surgery staff for this patient is Dr. Ha. [ x ] Drain removed. [ x ] Post xrays done. Estee Dick MD Orthopaedic Surgery, PGY4 Pager: [phone] FOLLOWUP: Future Appointments Date Time Provider Department Center 09/22/2020 8:30 AM Catina Ha MD [facility] 10/27/2020 2:30 PM Catina Ha MD [facility] T PHYSIOLOGIST Jaiden Bonilla MD - 08/14/2020 7:23 AM [...] having BM's. Pain under better control with [place] and prn Fentanyl, remains on Ketamine. Lungs [...] while on lidocaine infusion, now on fentanyl SUSTAINABLE LANDSCAPE ARCHITECT and ketamine drip with sub-optimal pain control. She is otherwise clinically stable. Today's changes: -Discontinue fentanyl SUSTAINABLE LANDSCAPE ARCHITECT -Start fentanyl IV Q2H PRN -Added lidocaine patch -Stop IVF Neuro/Ortho Scoliosis POD#5 s/p removal of hardware (segmental spinal instrumentation T3-L4) and pseudoarthrosis repair (day of surgery 08/09/20 -??Valium 2.5 mg IV Q6H for muscle spasm?? - Hold GATE WATCHMAN flexeril 5 mg BID -??neuro checks Q4H - hemovac drain removed on 08/12 - no activity/HOB restrictions ?? Pain - acute on poorly-controlled chronic pain/anxiety - PACCT consult, appreciate recommendations - Fentanyl SUSTAINABLE LANDSCAPE ARCHITECT discontinued - Fentanyl 25 mcg Q2H PRN started - Pregabalin 75 mg Q12H - Commence NORCO 5-325 mg PO Q4H/PRN per PACCT recs (can go up on [place] to 10- 325 mg if more pain per PACCT) - Continue Ketamine 3mg/hr infusion, try to discontinue 08/15 ?? Psych: Anxiety - GATE WATCHMAN sertraline 100 mg daily -??IV atarax 25 mg Q6H??PRN - Olanzepine 5mg at bedtime Heme/onc?? 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 Respiratory?? Comfortable [...] Center?? Interval History Received fentanyl bolus on SUSTAINABLE LANDSCAPE ARCHITECT x3 overnight. Getting [place] every 4 hours. Mom and Dakota feel [...] Dressing over spine with minimal blood stains T PHYSIOLOGIST Jaiden Bonilla MD - 08/13/2020 2:48 PM [...] loose. Still with back pain, on Fentanyl SUSTAINABLE LANDSCAPE ARCHITECT and Ketamine. Plan to start oral pain [...] while on lidocaine infusion, now on fentanyl SUSTAINABLE LANDSCAPE ARCHITECT and ketamine drip with sub-optimal pain control. She is otherwise clinically stable. Neuro/Ortho Scoliosis POD#3 s/p removal of hardware (segmental spinal instrumentation T3-L4) and pseudoarthrosis repair (day of surgery 08/09/20 -??Valium 2.5 mg IV Q6H for muscle spasm?? - Hold GATE WATCHMAN flexeril 5 mg BID -??neuro checks Q4H - hemovac drain removed on 08/12 - no activity/HOB restrictions ?? Pain - acute on poorly-controlled chronic pain/anxiety - PACCT consult, appreciate recommendations - Fentanyl SUSTAINABLE LANDSCAPE ARCHITECT - Pregabalin 75 mg Q12H - Discontinue scheduled Tylenol - Commence NORCO 5-325 mg PO Q4H/PRN per PACCT recs - Continue Ketamine 3mg/hr infusion ?? Psych: Anxiety - GATE WATCHMAN sertraline 100 mg daily -??IV atarax 25 mg Q6H??PRN - Olanzepine 5mg at bedtime Heme/onc?? 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 Respiratory?? Comfortable [...] poorly controlled on continuous ketamine and fentanyl SUSTAINABLE LANDSCAPE ARCHITECT overnight, she had several episodes of loose [...] Dressing over spine with minimal blood stains T PHYSIOLOGIST Estee Dick MD - 08/13/2020 7:18 AM [...] Estee Dick MD Orthopaedic Surgery, PGY4 Pager: [phone] FOLLOWUP: Future Appointments Date Time Provider Department Center 09/22/2020 8:30 AM Catina Ha MD [facility] 10/27/2020 2:30 PM Catina Ha MD [facility] T PHYSIOLOGIST Ruby Goel, RUTH - 08/12/2020 2:15 PM CST Family education completed: Yes Report given to: Marquis Time of transfer: 11:30 Transferred to: [address] Belongings sent:Yes Family updated:Yes Reviewed pertinent information from [facility] (EMAR/Clinical Summary/Flowsheets):Yes Head-to-toe assessment with receiving RN:Yes Recommendations (e.g. Family needs/recent issues/things to watch for): Patient's VSS and remained afebrile. Reporting pain an 8-9. PRN fentanyl x1. Patient voided x2 and BM x2. PO intake well tolerated. Mom at bedside and updated on POC> Azar Walker MD - 08/12/2020 1:25 PM CST [facility] [...] her symptoms were consistent with the rare [place] platelet disorder, genetic testing was not consistent [...] with any questions. Azar Cruz MD Pediatric Lime Kiln Tender Division of Pediatric Hematology/Oncology [facility] Pager: [facility]?? Interval History Dakota [...] improvement. This event has precipitated workup at [facility], [place], and [facility] where she was found to have [...] two ago was thought to possibly be [place] platelet disorder (targeted genetictesting was negative). She [...] if needed. (copied from her primary business systems technician's recent note Aug 2020) Dad with nosebleeds, but no surgeries (orphaned so no other history) Mom with heavy periods, no bruising, no issues with surger Maternal Aunt with Type IIa vWD from [facility] records Medications Medications Prior to Admission [...] 60 minutes 6.9 0 - 15 % T PHYSIOLOGIST Jaiden Bonilla MD - 08/12/2020 11:33 AM [...] while on lidocaine infusion, now on fentanyl SUSTAINABLE LANDSCAPE ARCHITECT and ketamine drip with sub-optimal pain control. She has ongoing intermittent orthostatic hypotension and is onbowel regimen for constipation. She is otherwise clinically stable. Neuro/Ortho Scoliosis POD#3 s/p removal of hardware (segmental spinal instrumentation T3-L4) and pseudoarthrosis repair (day of surgery 08/09/20 - Follow up standing x-ray on 08/12 -??Valium 2.5 mg IV Q6H for muscle spasm?? - Hold GATE WATCHMAN flexeril 5 mg BID -??neuro checks Q4H - hemovac drain removed on 08/12 - no activity/HOB restrictions ?? Pain - acute on poorly-controlled chronic pain/anxiety - PACCT consult, appreciate recommendations - Fentanyl SUSTAINABLE LANDSCAPE ARCHITECT - Pregabalin 75 mg Q12H -Tylenol 650 mg PO Q6H - Continue Ketamine 3mg/hr infusion ?? Psych: Anxiety - GATE WATCHMAN sertraline 100 mg daily -??IV atarax 25 [...] hypotension. Heme/onc?? 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 Respiratory?? Comfortable [...] Cranial nerves II- XII are grossly intact. T PHYSIOLOGIST Eleanor Dooley MD - 08/12/2020 8:34 AM [...] IV Q6H - muscle relaxant - hold GATE WATCHMAN flexeril 5 mg BID - neuro checks Q4H - hemovac drain removed on 08/12 - no activity/HOB restrictions Pain - acute on poorly-controlled chronic pain/anxiety - PACCT consult, appreciate recommendations - please see 08/[address] Gonzalez for details. - Switch to Fentanyl SUSTAINABLE LANDSCAPE ARCHITECT: 0mcg/hr basal rate; 4 bumps per hour of 25mcg (max 100mcg per hour), [id number] bolus when starting pump. If becomes too [...] - for antiemetic and anxiolytic properties - GATE WATCHMAN sertraline 100 mg daily - IV atarax [...] ?? 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 Gerry Nancy. ?? Infectious disease - no current concerns ?? GI - bowel regimen: -- Senna 8.6mg PO BID -- Miralax 17g PO BID -- Milk of magnesia (mag hydroxide) 30mL once -- bisacodyl suppository 10mg PRN if no stool by 18 afternoon. Or consider enema. ?? Nausea - [...] disorder. - Endocrinolgy consulted, appreciate recs - GATE WATCHMAN OCP - GATE WATCHMAN vitamin D 125mcg PO daily ? Diet: [...] attending physician, Dr. Dooley. Vivi Wong, DO [facility] Pediatric Resident [address] Pager # [phone] Fellow Attestation: ?? Dakota Casiano??is a 20 [...] decisions made today included: continue to hold SUSTAINABLE LANDSCAPE ARCHITECT opioid as able, space hematologic labs, PT/OT [...] 60 minutes 6.9 0 - 15 % T PHYSIOLOGIST Victor Hugo Talbot MD - 08/12/2020 5:45 [...] done. Victor Hugo Talbot MD PGY5 Pager: [phone] Please page me directly with any questions/concerns during regular weekday hours before 5pm. If there is no response, if it is a weekend, or if it is during evening hours then please page the orthopaedic surgery resident vamp strap ironer as listed on [facility] call schedule under the orthopaedics tab. FOLLOWUP: Future Appointments Date Time Provider Department Center 09/22/2020 8:30 AM Catina Ha MD [facility] 10/27/2020 2:30 PM Catina Ha MD [facility] T PHYSIOLOGIST Azar Cruz MD - 08/11/2020 3:27 PM [...] with the team. Azar Cruz MD Pediatric Lime Kiln Tender Division of Pediatric Hematology/Oncology [facility] Pager: T PHYSIOLOGIST Eleanor Dooley MD - 08/11/2020 3:12 PM [...] ?? 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 - Endocrinolgy consulted, appreciate recs - GATE WATCHMAN OCP - GATE WATCHMAN vitamin D 125mcg PO daily ?? Neuro/Ortho Scoliosis POD#2 s/p removal of hardware (segmental spinal instrumentation T3-L4) and pseudoarthrosis repair (day of surgery 08/09/20) - Stop morphine gtt - Keep morphine 0.5mg PRN to cover while switching - Stop lidocaine gtt - ortho will order follow up x-rays - valium 2.5 mg IV Q6H - hold GATE WATCHMAN flexeril 5 mg BID - neuro checks Q4H - hemovac drain removed - no activity/HOB restrictions Pain - acute on poorly-controlled chronic pain/anxiety - PACCT consult, appreciate recommendations - Tylenol 650 mg PO Q6H - Switch to Dilaudid SUSTAINABLE LANDSCAPE ARCHITECT (0.2mg/hr, 0.1mg bumps) - Start Ketamine 3mg/hr infusion - - Olanzepine 2.5-5.0mg at bedtime - for antiemetic and anxiolytic properties. ?? Psych: Anxiety - GATE WATCHMAN sertraline 100 mg daily - IV atarax [...] attending physician, Dr. Dooley. Vivi Wong, DO [facility] Pediatric Resident [address] Pager # [phone] Fellow Attestation: ?? 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 At times, difficult to manage. Feels well managed this AM. No symptoms in legs. Ongoing low HV output. Passing a little flatus, -BM. Voiding w/o [place]. [place] lightheaded when standingx2. Objective: BP 104/58 Pulse [...] done. Victor Hugo Talbot MD PGY5 Pager: [phone] Please page me directly with any questions/concerns during regular weekday hours before 5pm. If there is no response, if it is a weekend, or if it is during evening hours then please page the orthopaedic surgery resident vamp strap ironer as listed on [facility] call schedule under the orthopaedics tab. FOLLOWUP: Future Appointments Date Time Provider Department Center 09/22/2020 8:30 AM Catina Ha MD [facility] 10/27/2020 2:30 PM Catina Ha MD [facility] T PHYSIOLOGIST Azar Cruz MD - 08/10/2020 9:41 PM [...] her symptoms were consistent with the rare [place] platelet disorder, genetic testing was not consistent [...] her mom today. Azar Cruz MD Pediatric Lime Kiln Tender Division of Pediatric Hematology/Oncology [facility] Pager: [facility]?? Interval History Dakota [...] improvement. This event has precipitated workup at [facility], [place], and [facility] where she was found to have [...] two ago was thought to possibly be [place] platelet disorder (targeted genetictesting was negative). She [...] if needed. (copied from her primary business systems technician's recent note Aug 2020) Dad with nosebleeds, but no surgeries (orphaned so no other history) Mom with heavy periods, no bruising, no issues with surger Maternal Aunt with Type IIa vWD from [facility] records Medications Medications Prior to Admission [...] Pulse: 71 Resp: 19 SpO2: 99 % [id number]: None (Room air) Weight: 120 lbs 9.47 [...] Routine within 24 hrs; Call back #: [phone] [id number]; anxiety, acute and chronic pain; Linux System Admin may enter orders: Yes; Requesting provider? Attending physician Estee Acharya CNP 08/10/2020 2:30 PM Pediatric Integrative Medicine Initial Consultation Primary Care provider: Josh Carrero Consulting Provider: Rosalind Tavera MD Reason for consultation: I was asked to see this patient for anxiety and rktea-bj-ghiqeha pain. Assessment: Dakota is a 20 year [...] is clinically possible. History of Present Illness: Dakoat Casiano is a 20 year old female [...] -0.35)* * Growth percentiles are based on [facility] (Girls, 2-20 Years) data. 48 %ile (Z= -0.06) based on [facility] (Girls, 2-20 Years) BMI-for-age based on BMI [...] Braden, spent a total of 20 minutes zcyq-dh-edcs and on the unit today. Over 50% of this time was spent counseling the patient-family regarding strategies for nausea and relaxation and coordinating care with primary team and bedside RN. Estee Braden, WET ROOM SUPERVISOR, CPNP, HNB-BC Pediatric Nurse Practitioner Pediatric Integrative [...] 60 minutes 7.3 0 - 15 % T PHYSIOLOGIST Eleanor Dooley MD - 08/10/2020 3:28 PM [...] ?? 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 - Endocrinolgy consulted, appreciate recs - GATE WATCHMAN OCP - GATE WATCHMAN vitamin D 125mcg PO daily ?? Neuro/Ortho Scoliosis POD#1 s/p removal of hardware (segmental spinal instrumentation T3-L4) and pseudoarthrosis repair (day of surgery 08/09/20) Pain, acute on chronic - PACCT consult - morphine gtt @ 0.5 mg/hr + 0.5 mg Q2H PRN (patient prefers over SUSTAINABLE LANDSCAPE ARCHITECT) -- consider switching to dilaudid instead of morphine if remains too sleepy and/or pain not sufficiently treated with morphine. - lidocaine infusion @ 1 mg/kg/hr (plan to keep until 8 am on POD#2) - ortho will order follow up x-rays - valium 2.5 mg IV Q6H - hold GATE WATCHMAN flexeril 5 mg BID - tylenol 650 mg PO Q6H - neuro checks Q4H - cortez in place - monitor drain output - should be <100 mL/day per ortho - PT/OT consult - no activity/HOB restrictions ?? Psych: Anxiety - GATE WATCHMAN sertraline 100 mg daily - IV atarax [...] attending physician, Dr. Dooley. Vivi Wong, DO [facility] Pediatric Resident PL-2 Pager # [phone] Fellow Attestation: Dakota Casiano is a 20 [...] Routine within 24 hrs; Call back #: [phone]; anxiety, acute and chronic pain; Linux System Admin may enter orders: Yes; Requesting provider? Attending physician Narrative Estee Braden CNP 08/10/2020 2:30 PM Pediatric Integrative Medicine Initial Consultation Primary Care provider: Josh Carrero Consulting Provider: Rosalind Tavera MD Reason for consultation: I was asked to see this patient for anxiety and gibau-rs-kzmlupm pain. Assessment: Dakota is a 20 year [...] IEstee, spent a total of 20 minutes jqer-mt-blqt and on the unit today. Over 50% of this time was spent counseling the patient-family regarding strategies for nausea and relaxation and coordinating care with primary team and bedside RN. Estee Braden, WET ROOM SUPERVISOR, CPNP, HNB- Pediatric Nurse Practitioner Pediatric Integrative Health & Wellbeing T PHYSIOLOGIST Berenice Edgar, PT - 08/10/2020 12:48 PM [...] Skin Color/Characteristics pale Skin Integrity bruised (ecchymotic);drain/device(s);incision T PHYSIOLOGIST Victor Hugo Talbot MD - 08/10/2020 6:58 [...] done. Victor Hugo Talbot MD PGY5 Pager: [phone] Please page me directly with any questions/concerns during regular weekday hours before 5pm. If there is no response, if it is a weekend, or if it is during evening hours then please page the orthopaedic surgery resident vamp strap ironer as listed on [facility] call schedule under the orthopaedics tab. FOLLOWUP: Future Appointments Date Time Provider Department Center 09/22/2020 8:30 AM Catina Ha MD [facility] 10/27/2020 2:30 PM Catina Ha MD [facility] T PHYSIOLOGIST Merissa Pradhan MD - 08/09/2020 9:00 PM [...] PHV, PCO2V, PO2V, HCO3V in the last 68960 hours. Recent Labs Lab Test 08/10/20 0400 08/09/20 2200 WBC 13.8* 12.1* HGB 10.1* 10.4* HCT 29.9* 30.3* MCV 90 90 RDW 12.3 12.1 PLT 202 211 Lab Results Component Value Date INR 1.15 08/10/2020 , Lab Results Component Value Date PTT 28 08/10/2020 Additions/changes to plan include: 1) follow hgb/TEG per business systems technician. 2) ongoing pain control effective. 3) PACTT to see in am I spent a total of 35 minutes providing critical care services at the bedside, and on the critical care unit, evaluating the patient, directing care and reviewing laboratory values and radiologic reports for Dakota Casiano. Merissa Pradhan MD T PHYSIOLOGIST Victor Hugo Talbot MD - 08/09/2020 2:24 [...] current cares. 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 - Endocrinolgy consulted, appreciate recs - GATE WATCHMAN OCP - GATE WATCHMAN vitamin D 125mcg PO daily Neuro/Ortho #Scoliosis #POD#0 s/p removal of hardware (segmental spinal instrumentation T3-L4) and pseudoarthrosis repair #Pain, acute on chronic - morphine gtt @ 0.5 mg/hr + 1 mg Q2H PRN (patient prefers over SUSTAINABLE LANDSCAPE ARCHITECT) - lidocaine infusion @ 1 mg/kg/hr (plan to keep until 8 am on POD#2) - ortho will order follow up x-rays - valium 2.5 mg IV Q6H - hold GATE WATCHMAN flexeril 5 mg BID - tylenol 650 mg PO Q6H - neuro checks Q4H - cortez in place - monitor drain output - should be <100 mL/day per ortho - PT/OT consult - no activity/HOB restrictions - consult PACCT in AM Psych: #Anxiety - GATE WATCHMAN sertraline 100 mg daily - IV atarax [...] then she was seeing Dr. Ferrari at [place] for pain. However, Daokta was very frustrated with her care and [...] History Maternal aunt: type IIa vWD MFG: [place], bleeding issues Prior to Admission Medications Prior [...] Pulse: 94 Resp: 21 SpO2: 99 % X4Erlpim: None (Room air) Weight: 120 lbs 9.47 [...] 149* 126* ALBUMIN 3.5 -- -- -- T PHYSIOLOGIST documented in this encounter Consult Notes Estee Braden CNP - 08/10/2020 1:45 PM CSTAssociated Order(s): PEDS INTEGRATIVE HEALTH IP CONSULT Images from the original note were not included. Pediatric Integrative Medicine Initial Consultation Primary Care provider: Josh Carrero Consulting Provider: Rosalind Tavera MD Reason for consultation: I was asked to see this patient for anxiety and sutki-to-qemxdae pain. Assessment: Dakota is a 20 year [...] Braden, spent a total of 20 minutes niff-xt-mywe and on the unit today. Over 50% of this time was spent counseling the patient-family regarding strategies for nausea and relaxation and coordinating care with primary team and bedside RN. Estee Braden, WET ROOM SUPERVISOR, CPNP, HNB- Pediatric Nurse Practitioner Pediatric Integrative Health & Wellbeing T PHYSIOLOGIST Azar Cruz MD - 08/09/2020 9:37 PM [...] her symptoms were consistent with the rare [place] platelet disorder, genetic testing was not consistent [...] during the procedure. Azar Cruz MD Pediatric [employer] Division of Pediatric Hematology/Oncology [facility] Pager: [facility]?? Chief Complaint Possible [...] improvement. This event has precipitated workup at [facility], [place], and [facility] where she was found to have [...] two ago was thought to possibly be [place] platelet disorder (targeted genetictesting was negative). She [...] if needed. (copied from her primary business systems technician's recent note Aug 2020) Dad with nosebleeds, but no surgeries (orphaned so no other history) Mom with heavy periods, no bruising, no issues with surger Maternal Aunt with Type IIa vWD from [facility] records Medications Medications Prior to Admission [...] Pulse: 59 Resp: 14 SpO2: 99 % [id number]: None (Room air) Weight: 120 lbs 9.47 [...] Antibody Screen Neg Test Valid Only At [facility] Specimen Expires 08/12/2020 Crossmatch Red Blood Cells Glucose Result Value Ref Range Glucose 75 70 - 99 mg/dL Blood component Result Value Ref Range Unit Number [id number] Blood Component Type Red Blood Cells Leukocyte Reduced Division Number 00 Status of Unit Ready for patient 08/09/2020 0857 Blood Product Code [id number] Unit Status GRADY Blood component Result Value Ref Range Unit Number [id number] Blood Component Type Red Blood Cells Leukocyte Reduced Division Number 00 Status of Unit Ready for patient 08/09/2020 0857 Blood Product Code [id number] Unit Status GRADY Arterial Panel Result Value [...] be read by a radiologist or a [place] non-radiologist provider. Renal Panel Result Value Ref [...] Routine within 24 hrs; Call back #: [phone] ext [phone]; hx of scoliosis with poor healing after multiple repairs, also has unknown platelet disorder; Linux System Admin may enter orders: Yes; Requesti... Inga Ferro MD 08/09/2020 5:28 PM [facility] Pediatric Endocrinology Consultation New Note Reason [...] 2019. She also was seen at the [facility] where they felt that her symptoms might [...] been reviewed. Inga Dolan MD Professor and Contract Forester Pediatric Endocrinology and Diabetes Pager: [phone] Methicillin Resist/Sens S. aureus PCR Specimen: Nasal [...] 60 minutes 3.8 0 - 15 % T PHYSIOLOGIST Inga Dolan MD - 08/09/2020 4:39 PM CSTAssociated Order(s): PEDS ENDOCRINOLOGY IP CONSULT [facility] Pediatric Endocrinology Consultation New Note Reason [...] 2019. She also was seen at the [facility] where they felt that her symptoms might [...] activeyoung woman who plays [employer] on her community [...] been reviewed. Inga Dolan MD Professor and Contract Forester Pediatric Endocrinology and Diabetes Pager: [phone] T PHYSIOLOGIST documented in this encounter Nursing Notes Zoila Boone RN - 08/08/2020 9:40 AM CST Images from the original note were not included. Mariposa Atwood MD Randle, Darrell Wayne, MD; Zoila Boone, RUTH; P Pas Anesthesiology; Riaz Kenyon MD Cc: Maura Moreno RN; Rachel Rodriguez RN; Jana Fischer RN ?? I just left a note in addition to Dr. Ha's re: summary and plan. Will fill in the addendum with additional detail of prior course sometime today. T PHYSIOLOGIST Zoila Boone RN - 08/04/2020 8:15 AM [...] interoperative management? Thank you! Federico Redman MD Cigar Tobacco Rehandler of Preoperative Assessment Center [phone] Previous Messages ----- Message ----- From: Zoila Boone RN Sent: 08/03/2020 ?? 2:24 PM PLANT PHYSIOLOGIST To: Rachel Rodriguez RN, Maura Moreno RN, * Subject: AA Hematology abn: Bleeding Abnormalities.Ne* MARCELO Carrillo: History of complex bleeding disorder-[place] platelet disorder? Pt had a interoperative hemorrhage in 2016 (EBL 1400 ml). ?? Please see Dr Ha's note on 07/21/20, regarding plan. ??Surgery is on 08/09/20. Thanks so much. Zoila Boone RN, BSN Preanesthesia Screening [phone] T PHYSIOLOGIST Zoila Boone RN - 08/03/2020 2:34 PM CST Images from the original note were not included. AA Hematology abn: Bleeding Abnormalities.Needs review. Surgery on 08/09 Received: Today Message Contents Zoila Boone RN P Pas Anesthesiology; Riaz Kenyon MD Cc: Maura Moreno RN; Rachel Rodriguez RN; Jana Fischer RN ?? Hi all, FYI: History of complex bleeding disorder-[place] platelet disorder? Pt had a interoperative hemorrhage in 2016 (EBL 1400 ml). ?? Please see Dr Ha's note on 07/21/20, regarding plan. ??Surgery is on 08/09/20. Thanks so much. Zoila Boone RN, BSN Preanesthesia Screening [phone] T PHYSIOLOGIST documented in this encounter Miscellaneous Notes Plan of Care - Tess Gutierrez RN - 08/16/2020 1:36 PM CST VSS. Afebrile. Rating back pain 10. Patient appears comfortable. Pain controlled with 5 mg PRN Oxycodone x2, scheduled valium, and scheduled Tylenol. Voiding well. Having loose stools - bowel medications held. All goals met for discharge. AVS and discharge medications reviewed with patient and mother, they verbalized understanding. Discharged at 1315. T PHYSIOLOGIST Pharmacy - Discharge Medication Reconciliation and Education - Zeb Bravo, [facility] - 08/16/2020 1:12 PM CST [...] pain naloxone (NARCAN) 4 MG/0.1ML nasal spray Rice 1 spray (4 mg) into one nostril [...] mouth daily Norethindrone Acet-Ethinyl Est (LOESTRIN 08/24, 21, PO) Take by mouth daily sertraline (ZOLOFT) 100 MG tablet Take 100 mg by mouth daily STOP taking these medications cyclobenzaprine (FLEXERIL) 5 MG tablet Comments: Reason for Stopping: HYDROcodone-acetaminophen (NORCO) 5-325 MG tablet Comments: Reason for Stopping: Katja Wilcox, 4th Year Student Pharmacist [facility] Plan of Care - Tiff Collins RN [...] Mother at bedside. Hopeful for discharge today. T PHYSIOLOGIST Plan of Care - Henna Murray RN [...] Possible discharge tomorrow. Will continue to monitor. T PHYSIOLOGIST Provider Notification - Henna Murray RN - 08/15/2020 8:41 PM PLANT PHYSIOLOGIST Purple Resident Mg notified via [facility] paging that pt crying and reporting [...] at this time, will continue to monitor. T PHYSIOLOGIST Plan of Care - Tess Gutierrez RN - 08/15/2020 3:44 PM CST VSS. Afebrile. Rating back pain 7-8/10. Pain controlled with PRN [place] x1 (now discontinued), scheduled Valium, PRN Oxycodone, and Lidocaine patch. Ketamine gtt stopped per orders. Ice packs also applied. Patient took shower today and walked around m[place]za x2 with PT. Voiding well. Having loose stools - bowel medications held this AM. Mother at bedside and updated on POC. Will continue to monitor and update with changes. T PHYSIOLOGIST Plan of Care - Mariposa Garcia, PT - 08/15/2020 2:32 PM CST Physical Therapy Discharge Summary Reason for therapy discharge: Discharged to home with outpatient therapy. Progress towards therapy goal(s). See goals on Care Plan in [facility] electronic health record for goal details. Goals met Therapy recommendation(s): Continued therapy is recommended. Rationale/Recommendations: Continued therapy recommended to progress core strength, address muscular imbalances and assist patient with safe progression of strengthening with good body mechanics. T PHYSIOLOGIST Provider Notification - Tess Gutierrez RN - 08/15/2020 7:56 AM CST 08/15/20 0747 08/15/20 0754 Vitals BP 95/50 90/48 Patient Position Lying Lying Site Arm, upper left Arm, upper left Mode Electronic Electronic Cuff Size Adult Adult Patient with x2 soft BPs. Pt sleeping. Purple team notified. Will continue to monitor and update with changes. T PHYSIOLOGIST Plan of Care - Berlin Downs RN - 08/15/2020 6:46 AM CST Pt calm and appearing happy during evening, slept well through the night. Pain 8/10 while awake and 6-7/10 overnight. No nonverbal indicators of pain observed. Pain/discomfort controlled with Ketamine gtt, [place] Q4, and Valium. Neuro checks WDL. Pt moving well, stand-by assist. Drinking well. Having loose stools, Miralax and Senna held. Voiding well. Mother at bedside. Plan to continue monitoring. T PHYSIOLOGIST Plan of Care - Tiff Gonzales RN - 08/14/2020 7:24 PM CST Pain control an issue [id number]. Pt continues to need pain meds when [...] attentive to needs. Will continue to monitor. T PHYSIOLOGIST Plan of Care - Keily Cardona OT - 08/14/2020 12:18 PM CST Occupational Therapy Discharge Summary Reason for therapy discharge: All goals and outcomes met, no further needs identified. Progress towards therapy goal(s). See goals on Care Plan in [facility] electronic health record for goal details. Goals met Therapy recommendation(s): Pt safe to discharge to home with assist as needed for ADLs. Pt has a shower chair at home. T PHYSIOLOGIST Plan of Care - David Ayala RN [...] up in morning. Will continue to monitor. T PHYSIOLOGIST Plan of Care - Reyna Edwards RN - 08/13/2020 10:07 PM CST Tmax 100.4, 99.6 re-check. BP 87/37, notified, recheck was WDL. Other VSS. Lung sounds clear. Pt c/o 9-10/10 back pain. Took 2 bumps from fentanyl SUSTAINABLE LANDSCAPE ARCHITECT and 2 denied. Ketamine gtt remains unchanged. Pt c/o headache, received [place] x 1 with little effect. Good UOP. Dressings remain clean, dry, and intact. Stool softeners held per patient request. Hourly rounding complete. Will continue to monitor andassess. T PHYSIOLOGIST Plan of Care - Mariposa Garcia, PT [...] supervision. Safe for discharge from PT perspective T PHYSIOLOGIST Plan of Care - Marine Paredes RN - 08/13/2020 7:52 AM CST [id number]: Afebrile, VSS LSC on RA. Pain 9/10 with scheduled tylenol, cold packs, continuous ketamine and SUSTAINABLE LANDSCAPE ARCHITECT fentanyl with 5 bumps taken 8 denied. Appeared to sleep well between cares. No nausea. Dressing on back c/d/I- no changes. No c/o nausea. PIV in R arm fell out this AM- replaced without issue.Up to commode with pt's mother's assistance overnight. No stool. Hourly rounding completed, continueto monitor and notify team of changes/concerns. T PHYSIOLOGIST Plan of Care - Tess Gutierrez RN - 08/12/2020 4:10 PM CST Pt arrived to unit from PICU at 1150. VSS. Afebrile. Rating pain 9/10. Pain controlled with Ketaminegtt, Fentanyl SUSTAINABLE LANDSCAPE ARCHITECT with one time clinician bolus as ordered, [...] continue to monitor and update with changes. T PHYSIOLOGIST Plan of Care - Janett Hylton RN [...] patient involved in the plan of care. T PHYSIOLOGIST Provider Notification - Aliza Brannon RN - 08/11/2020 10:59 PM CST 08/11/20 2200 Vitals BP (!) 84/43 RN notified Resident Marina CONCEPCION of BP lower than parameters. MIVF started at 100ml/hr - will reevaluate at 0000 regarding next steps/improvements in BP. Will continue to monitor. T PHYSIOLOGIST Plan of Care - Ruby Goel RN - 08/11/2020 7:57 PM CST Patient's VSS and remained afebrile. Adjustments made to patient's pain medications. Shortly after initiating dilaudid gtt patient started to become confused and slightly delirious. Resident notified and gtt stopped. Minimal PO intake PRN zofran x2. Mom at bedside and updated on POC. T PHYSIOLOGIST Provider Notification - Estee Braden CNP - [...] Nurse Practitioner Pediatric Integrative Health & Wellbeing T PHYSIOLOGIST Plan of Care - Sammie Clifton RN [...] to commode cause she doesn't wanna faint. T PHYSIOLOGIST Plan of Care - Desire Thomas RN [...] here this afternoon. Will continue to monitor. T PHYSIOLOGIST Plan of Care - Benson Edwards, OT - 08/10/2020 12:41 PM CST OT: Cancel, Pt not appropriate for OT evaluation at this time, will hold OT evaluation at this time and will reschedule evaluation as appropriate. T PHYSIOLOGIST Plan of Care - Janice Stallworth RN [...] updated on POC. Will continue to monitor. T PHYSIOLOGIST Op Note - Catina Ha MD - [...] 44 cm. SURGEON: Catina Ha Jr., MD TRUCK MECHANIC APPRENTICE: Victor Hugo Talbot MD, resident. INDICATION FOR OPERATION: The patient is a 20-year-old female with a complex spinal history. She wasinit[facility] at [facility]. She underwent a tethered cord releaseby Dr. Girish Hammond. She then underwent a posterior spinal fusion by Dr. Cobos in 01/2016. She had pain f ollowing the surgery, underwent removal of a right T8 hook. She was then subsequently seen by Dr. Perez and then Dr. Muro at [facility]. 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 She saw Dr. Muro at [place] [facility], who felt that she had symptoms at the level of her crosslink, and the crosslink was removed, which resulted in some improvement, and then she got worse. She was then seen at [facility], where she was undergoing [facility] physical therapy, and it got to the [...] dysfunction and appeared to be most like [place] platelet disorder. Genetic testing for this was performed and came back on 07/30, showing that she did not in fact have the genotype for [place] platelet disorder, but may have what appears [...] were made to have a pediatric business systems technician in attendance in the OR to help manage her bleeding issues and bleeding problems. DESCRIPTION OF PROCEDURE: The OR team was briefed about the plan. The patient was brought to the operating room and underwent the induction of adequate general anesthesia, the patient was positioned prone on a 4-studio hand frame. She was then prepared and draped [...] plan to utilize the O- arm and Sporthold navigation in order to place screws. The [...] intraoperative 3D images, which were transferred the Sporthold image-guided workstation and allowedus to place other [...] MD MT: JOHNSON Name: DAKOTA CASIANO Account: [id number] : 2000 Procedure Date: 08/09/2020 Document: [id number] cc: Marilyn Muro MD Copy for Patient [facility] Brannon Perez MD T PHYSIOLOGIST Plan of Care - Jazzmine Max RN - 08/09/2020 7:02 PM CST Pt post op from unexpected addition of new spinal hardware instead of only removal of old hardware. Pt expressing a lot of pain, total of 4mg morphine given from [id number] as well as 1 dose of atarax, this has been tolerable for pt as she has been sleeping since the last 1730 prn dose given. Still taking just water. Post op labs still [id number]. Mom updated on poc, continue to monitor. T PHYSIOLOGIST Pharmacy-Admission Medication History - Robert Ying RP - 08/09/2020 3:05 PM CST Admission medication history interview status for the 08/09/2020 admission is complete. See [facility] admission navigator for allergy information, pharmacy, prior to admission medications and immunization status. Medication history interview sources: Mother Changes made to GATE WATCHMAN medication list (reason) Added: setraline Deleted: none [...] History Medication history completed by: Robert Ying [facility] T PHYSIOLOGIST Brief Op Note - Victor Hugo Talbot [...] Implant Name Type Inv. Item Serial No. Tire Worker Lot No. LRB No. Used Action EXPLANTED SPINAL HARDWARE N/A 1 Explanted GRAFT BONE CRUSH CANC 30ML [id number] Bone/Tissue/Biologic GRAFT BONE CRUSH CANC 30ML [id number] MUSCULOSKELETAL RAMIREZ N/A 1 Implanted GRAFT BONE CRUSH CANC 30ML [id number] Bone/Tissue/Biologic GRAFT BONE CRUSH CANC 30ML [id number] MUSCULOSKELETAL RAMIREZ N/A 1 Implanted IMP SCR SET MEDT SOLERA BREAK OFF 5.5MM TI [id number] Metallic Hardware/[place] IMP SCR SET MEDT SOLERA BREAK OFF 5.5MM TI [id number] [employer] N/A 15 Implanted IMP SCR MEDT 5.5/6.0MM SOLERA 6.5X45MM FA TI [id number] Metallic Hardware/[place] IMP SCR MEDT 5.5/6.0MM SOLERA 6.5X45MM FA TI [id number] [employer] N/A 2 Implanted IMP SCR MEDT 5.5/6.0MM SOLERA 6.5X50MM FA TI [id number] Metallic Hardware/[place] IMP SCR MEDT 5.5/6.0MM SOLERA 6.5X50MM FA TI [id number] [employer] N/A 1 Implanted IMP SCR MEDT 5.5/6.0MM SOLERA 5.5X45MM FA TI [id number] Metallic Hardware/[place] IMP SCR MEDT 5.5/6.0MM SOLERA 5.5X45MM FA TI [id number] [employer] N/A 3 Implanted IMP SCR MEDT 5.5/6.0MM SOLERA 5.5X50MM FA TI [id number] Metallic Hardware/[place] IMP SCR MEDT 5.5/6.0MM SOLERA 5.5X50MM FA TI [id number] [employer] N/A 1 Implanted IMP SCR MEDT 5.5/6.0MM SOLERA 5.5X40MM FA TI [id number] Metallic Hardware/[place] IMP SCR MEDT 5.5/6.0MM SOLERA 5.5X40MM FA TI [id number] [employer] N/A 3 Implanted IMP SCR MEDT 5.5/6.0MM SOLERA 5.5X35MM FA TI [id number] Metallic Hardware/[place] IMP SCR MEDT 5.5/6.0MM SOLERA 5.5X35MM FA TI [id number] [employer] N/A 1 Implanted IMP SCR MEDT 5.5/6.0MM SOLERA 4.5X40MM FA TI [id number] Metallic Hardware/[place] IMP SCR MEDT 5.5/6.0MM SOLERA 4.5X40MM FA TI [id number] [employer] N/A 2 Implanted IMP SCR MEDT 5.5/6.0MM SOLERA 4.5X35MM FA TI [id number] Metallic Hardware/[place] IMP SCR MEDT 5.5/6.0MM SOLERA 4.5X35MM FA TI [id number] [employer] N/A 1 Implanted IMP SANDY MEDT SOLERA TIAL STR LINED 5.7B451VW [id number] Metallic Hardware/[place] IMP SANDY MEDT SOLERATIAL STR LINED 5.6R030FL [id number] [employer] N/A 2 Implanted Medtronic NB Hook [employer] N/A 1 Implanted GRAFT BONE INFUSE BMP LG II [id number] GRAFT BONE INFUSE BMP LG II [id number] [employer] [id number] N/A 1 Implanted GRAFT BONE INFUSE BMP MED [id number] GRAFT BONE INFUSE BMP MED [id number] [employer] [id number] N/A 1 Implanted T PHYSIOLOGIST documented in this encounter Plan of Treatment Pending Results Name Type Priority Associated Diagnoses Date/Ti me CBC with platelets Lab Timed Scoliosis 6:49 AM PLANT PHYSIOLOGIST Scheduled Referrals Name Type Priority Associated Diagnoses Order S chedule PHYSICAL THERAPY Referral Routine Neuromuscular scoliosis of Expected: REFERRAL thoracolumbar region 021, Expires: 08/15/2021 documented as of this encounter Procedures Procedure Name Priority Date/Time Associated Comments Diagnosis TEG WITHOUT HEPARINASE Routine 08/15/2020 8:46 Scoliosis Re sults for this AM PLANT PHYSIOLOGIST procedure are i n the results section. INR Routine 08/15/2020 8:46 Scoliosis Results for this AM PLANT PHYSIOLOGIST procedure are i n the results section. PARTIAL THROMBOPLASTIN Routine 08/15/2020 8:46 Scoliosis Re sults for this TIME AM PLANT PHYSIOLOGIST procedure are i n the results section. FIBRINOGEN ACTIVITY Routine 08/15/2020 8:46 Scoliosis Resul ts for this AM PLANT PHYSIOLOGIST procedure are i n the results section. CBC WITH PLATELETS Routine 08/15/2020 8:46 Scoliosis Result s for this AM PLANT PHYSIOLOGIST procedure are i n the results section. TEG WITHOUT HEPARINASE Routine 08/14/2020 7:07 Scoliosis Re sults for this AM PLANT PHYSIOLOGIST procedure are i n the results section. INR Routine 08/14/2020 7:07 Scoliosis Results for this AM PLANT PHYSIOLOGIST procedure are i n the results section. PARTIAL THROMBOPLASTIN Routine 08/14/2020 7:07 Scoliosis Re sults for this TIME AM PLANT PHYSIOLOGIST procedure are i n the results section. FIBRINOGEN ACTIVITY Routine 08/14/2020 7:07 Scoliosis Resul ts for this AM PLANT PHYSIOLOGIST procedure are i n the results section. CBC WITH PLATELETS Routine 08/14/2020 7:07 Scoliosis Result s for this AM PLANT PHYSIOLOGIST procedure are i n the results section. TEG WITHOUT HEPARINASE Routine 08/13/2020 3:11 Scoliosis Re sults for this PM PLANT PHYSIOLOGIST procedure are i n the results section. CBC WITH PLATELETS Timed 08/13/2020 3:11 Scoliosis Result s for this PM PLANT PHYSIOLOGIST procedure are i n the results section. CBC WITH PLATELETS Routine 08/13/2020 7:58 Scoliosis Result s for this AM PLANT PHYSIOLOGIST procedure are i n the results section. INR Timed 08/13/2020 6:49 Scoliosis Results for this AM PLANT PHYSIOLOGIST procedure are i n the results section. PARTIAL THROMBOPLASTIN Timed 08/13/2020 6:49 Scoliosis Re sults for this TIME AM PLANT PHYSIOLOGIST procedure are i n the results section. FIBRINOGEN ACTIVITY Timed 08/13/2020 6:49 Scoliosis Resul ts for this AM PLANT PHYSIOLOGIST procedure are i n the results section. BASIC METABOLIC PANEL Timed 08/13/2020 6:49 Scoliosis Res ults for this AM PLANT PHYSIOLOGIST procedure are i n the results section. CBC WITH PLATELETS Timed 08/13/2020 6:49 Scoliosis AM PLANT PHYSIOLOGIST INR Timed 08/12/2020 7:30 Scoliosis Results for this PM PLANT PHYSIOLOGIST procedure are i n the results section. PARTIAL THROMBOPLASTIN Timed 08/12/2020 7:30 Scoliosis Re sults for this TIME PM PLANT PHYSIOLOGIST procedure are i n the results section. FIBRINOGEN ACTIVITY Timed 08/12/2020 7:30 Scoliosis Resul ts for this PM PLANT PHYSIOLOGIST procedure are i n the results section. CBC WITH PLATELETS Timed 08/12/2020 7:30 Scoliosis Result s for this PM PLANT PHYSIOLOGIST procedure are i n the results section. EKG 12-LEAD, TRACING Routine 08/12/2020 6:42 Resu lts for this ONLY PM PLANT PHYSIOLOGIST procedure are i n the results section. XR THORACIC LUMBAR Routine 08/12/2020 6:07 Result s for this STANDING 2 VIEWS PM PLANT PHYSIOLOGIST procedure a re in the results section. XR BONE SURVEY COMPLETE Routine 08/12/2020 6:06 R esults for this PEDS PM PLANT PHYSIOLOGIST procedure are i n the results section. TEG WITHOUT HEPARINASE Routine 08/12/2020 8:11 Scoliosis Re sults for this AM PLANT PHYSIOLOGIST procedure are i n the results section. INR Timed 08/11/2020 5:22 Scoliosis Results for this PM PLANT PHYSIOLOGIST procedure are i n the results section. PARTIAL THROMBOPLASTIN Timed 08/11/2020 5:22 Scoliosis Re sults for this TIME PM PLANT PHYSIOLOGIST procedure are i n the results section. FIBRINOGEN ACTIVITY Timed 08/11/2020 5:22 Scoliosis Resul ts for this PM PLANT PHYSIOLOGIST procedure are i n the results section. CBC WITH PLATELETS Timed 08/11/2020 5:22 Scoliosis Result s for this PM PLANT PHYSIOLOGIST procedure are i n the results section. TEG WITHOUT HEPARINASE Timed 08/11/2020 10:03 Scoliosis R esults for this AM PLANT PHYSIOLOGIST procedure are i n the results section. INR Timed 08/11/2020 10:03 Scoliosis Results for this AM PLANT PHYSIOLOGIST procedure are i n the results section. PARTIAL THROMBOPLASTIN Timed 08/11/2020 10:03 Scoliosis R esults for this TIME AM PLANT PHYSIOLOGIST procedure are i n the results section. FIBRINOGEN ACTIVITY Timed 08/11/2020 10:03 Scoliosis Resu lts for this AM PLANT PHYSIOLOGIST procedure are i n the results section. CBC WITH PLATELETS Timed 08/11/2020 10:03 Scoliosis Resul ts for this AM PLANT PHYSIOLOGIST procedure are i n the results section. TEG WITHOUT HEPARINASE Timed 08/11/2020 6:09 Scoliosis Re sults for this AM PLANT PHYSIOLOGIST procedure are i n the results section. INR Timed 08/11/2020 6:09 Scoliosis Results for this AM PLANT PHYSIOLOGIST procedure are i n the results section. PARTIAL THROMBOPLASTIN Timed 08/11/2020 6:09 Scoliosis Re sults for this TIME AM PLANT PHYSIOLOGIST procedure are i n the results section. FIBRINOGEN ACTIVITY Timed 08/11/2020 6:09 Scoliosis Resul ts for this AM PLANT PHYSIOLOGIST procedure are i n the results section. CBC WITH PLATELETS Timed 08/11/2020 6:09 Scoliosis Result s for this AM PLANT PHYSIOLOGIST procedure are i n the results section. TEG WITHOUT HEPARINASE Timed 08/10/2020 9:50 Scoliosis Re sults for this PM PLANT PHYSIOLOGIST procedure are i n the results section. INR Timed 08/10/2020 9:50 Scoliosis Results for this PM PLANT PHYSIOLOGIST procedure are i n the results section. PARTIAL THROMBOPLASTIN Timed 08/10/2020 9:50 Scoliosis Re sults for this TIME PM PLANT PHYSIOLOGIST procedure are i n the results section. FIBRINOGEN ACTIVITY Timed 08/10/2020 9:50 Scoliosis Resul ts for this PM PLANT PHYSIOLOGIST procedure are i n the results section. CBC WITH PLATELETS Timed 08/10/2020 9:50 Scoliosis Result s for this PM PLANT PHYSIOLOGIST procedure are i n the results section. TEG WITHOUT HEPARINASE Timed 08/10/2020 4:00 Scoliosis Re sults for this PM PLANT PHYSIOLOGIST procedure are i n the results section. INR Timed 08/10/2020 4:00 Scoliosis Results for this PM PLANT PHYSIOLOGIST procedure are i n the results section. PARTIAL THROMBOPLASTIN Timed 08/10/2020 4:00 Scoliosis Re sults for this TIME PM PLANT PHYSIOLOGIST procedure are i n the results section. FIBRINOGEN ACTIVITY Timed 08/10/2020 4:00 Scoliosis Resul ts for this PM PLANT PHYSIOLOGIST procedure are i n the results section. CBC WITH PLATELETS Timed 08/10/2020 4:00 Scoliosis Result s for this PM PLANT PHYSIOLOGIST procedure are i n the results section. TEG WITHOUT HEPARINASE Timed 08/10/2020 10:00 Scoliosis R esults for this AM PLANT PHYSIOLOGIST procedure are i n the results section. INR Timed 08/10/2020 10:00 Scoliosis Results for this AM PLANT PHYSIOLOGIST procedure are i n the results section. PARTIAL THROMBOPLASTIN Timed 08/10/2020 10:00 Scoliosis R esults for this TIME AM PLANT PHYSIOLOGIST procedure are i n the results section. FIBRINOGEN ACTIVITY Timed 08/10/2020 10:00 Scoliosis Resu lts for this AM PLANT PHYSIOLOGIST procedure are i n the results section. CBC WITH PLATELETS Timed 08/10/2020 10:00 Scoliosis Resul ts for this AM PLANT PHYSIOLOGIST procedure are i n the results section. OPTICAL TRACKING SYSTEM Routine 08/10/2020 7:28 Scoliosi s FUSION SPINE POSTERIOR AM PLANT PHYSIOLOGIST Painful orthopaedi c THORACIC CHILD THREE+ hardware (H) LEVELS TEG WITHOUT HEPARINASE Timed 08/10/2020 4:00 Scoliosis Re sults for this AM PLANT PHYSIOLOGIST procedure are i n the results section. INR Timed 08/10/2020 4:00 Scoliosis Results for this AM PLANT PHYSIOLOGIST procedure are i n the results section. PARTIAL THROMBOPLASTIN Timed 08/10/2020 4:00 Scoliosis Re sults for this TIME AM PLANT PHYSIOLOGIST procedure are i n the results section. FIBRINOGEN ACTIVITY Timed 08/10/2020 4:00 Scoliosis Resul ts for this AM PLANT PHYSIOLOGIST procedure are i n the results section. CBC WITH PLATELETS Timed 08/10/2020 4:00 Scoliosis Result s for this AM PLANT PHYSIOLOGIST procedure are i n the results section. TEG WITHOUT HEPARINASE Timed 08/09/2020 10:00 Scoliosis R esults for this PM PLANT PHYSIOLOGIST procedure are i n the results section. INR Timed 08/09/2020 10:00 Scoliosis Results for this PM PLANT PHYSIOLOGIST procedure are i n the results section. PARTIAL THROMBOPLASTIN Timed 08/09/2020 10:00 Scoliosis R esults for this TIME PM PLANT PHYSIOLOGIST procedure are i n the results section. FIBRINOGEN ACTIVITY Routine 08/09/2020 10:00 Scoliosis Resu lts for this PM PLANT PHYSIOLOGIST procedure are i n the results section. CBC WITH PLATELETS Timed 08/09/2020 10:00 Scoliosis Resul ts for this PM PLANT PHYSIOLOGIST procedure are i n the results section. TEG WITHOUT HEPARINASE Timed 08/09/2020 5:54 Scoliosis Re sults for this PM PLANT PHYSIOLOGIST procedure are i n the results section. INR Timed 08/09/2020 5:45 Scoliosis Results for this PM PLANT PHYSIOLOGIST procedure are i n the results section. PARTIAL THROMBOPLASTIN Timed 08/09/2020 5:45 Scoliosis Re sults for this TIME PM PLANT PHYSIOLOGIST procedure are i n the results section. FIBRINOGEN ACTIVITY Timed 08/09/2020 5:45 Scoliosis Resul ts for this PM PLANT PHYSIOLOGIST procedure are i n the results section. CBC WITH PLATELETS Timed 08/09/2020 5:45 Scoliosis Result s for this PM PLANT PHYSIOLOGIST procedure are i n the results section. MRSA MSSA PCR, NASAL STAT 08/09/2020 2:10 Scoliosis Resu lts for this SWAB PM PLANT PHYSIOLOGIST procedure are i n the results section. TEG WITHOUT HEPARINASE STAT 08/09/2020 1:45 Scoliosis Re sults for this PM PLANT PHYSIOLOGIST procedure are i n the results section. RENAL PANEL STAT 08/09/2020 1:45 Scoliosis Results for this PM PLANT PHYSIOLOGIST procedure are i n the results section. INR STAT 08/09/2020 1:45 Scoliosis Results for this PM PLANT PHYSIOLOGIST procedure are i n the results section. PREALBUMIN STAT 08/09/2020 1:45 Scoliosis Results for this PM PLANT PHYSIOLOGIST procedure are i n the results section. PARTIAL THROMBOPLASTIN STAT 08/09/2020 1:45 Scoliosis Re sults for this TIME PM PLANT PHYSIOLOGIST procedure are i n the results section. MAGNESIUM STAT 08/09/2020 1:45 Scoliosis Results for this PM PLANT PHYSIOLOGIST procedure are i n the results section. IRON AND IRON BINDING Routine 08/09/2020 1:45 Scoliosis Res ults for this CAPACITY PM PLANT PHYSIOLOGIST procedure are i n the results section. FIBRINOGEN ACTIVITY STAT 08/09/2020 1:45 Scoliosis Resul ts for this PM PLANT PHYSIOLOGIST procedure are i n the results section. IONIZED CALCIUM STAT 08/09/2020 1:45 Scoliosis Results f or this PM PLANT PHYSIOLOGIST procedure are i n the results section. CBC WITH PLATELETS STAT 08/09/2020 1:45 Scoliosis Result s for this PM PLANT PHYSIOLOGIST procedure are i n the results section. XR SURGERY ELIER FLUORO Routine 08/09/2020 12:05 R esults for this LESS THAN 5 MIN PM PLANT PHYSIOLOGIST procedure ar e in the results section. TEG WITHOUT HEPARINASE Routine 08/09/2020 11:28 Scoliosis R esults for this AM PLANT PHYSIOLOGIST procedure are i n the results section. INR Routine 08/09/2020 11:28 Scoliosis Results for this AM PLANT PHYSIOLOGIST procedure are i n the results section. PARTIAL THROMBOPLASTIN Routine 08/09/2020 11:28 Scoliosis R esults for this TIME AM PLANT PHYSIOLOGIST procedure are i n the results section. FIBRINOGEN ACTIVITY Routine 08/09/2020 11:28 Scoliosis Resu lts for this AM PLANT PHYSIOLOGIST procedure are i n the results section. CBC WITH PLATELETS Routine 08/09/2020 11:28 Scoliosis Resul ts for this AM PLANT PHYSIOLOGIST procedure are i n the results section. TEG WITHOUT HEPARINASE STAT 08/09/2020 9:50 Scoliosis Re sults for this AM PLANT PHYSIOLOGIST procedure are i n the results section. ARTERIAL PANEL STAT 08/09/2020 9:50 Scoliosis Results fo r this AM PLANT PHYSIOLOGIST procedure are i n the results section. INR STAT 08/09/2020 9:50 Scoliosis Results for this AM PLANT PHYSIOLOGIST procedure are i n the results section. PARTIAL THROMBOPLASTIN STAT 08/09/2020 9:50 Scoliosis Re sults for this TIME AM PLANT PHYSIOLOGIST procedure are i n the results section. FIBRINOGEN ACTIVITY STAT 08/09/2020 9:50 Scoliosis Resul ts for this AM PLANT PHYSIOLOGIST procedure are i n the results section. LABORATORY Routine 08/09/2020 9:00 Scoliosis Results for this MISCELLANEOUS ORDER AM PLANT PHYSIOLOGIST procedur e are in the results section. TEG WITHOUT HEPARINASE STAT 08/09/2020 8:45 Scoliosis Re sults for this AM PLANT PHYSIOLOGIST procedure are i n the results section. ARTERIAL PANEL STAT 08/09/2020 8:45 Scoliosis Results fo r this AM PLANT PHYSIOLOGIST procedure are i n the results section. INR STAT 08/09/2020 8:45 Scoliosis Results for this AM PLANT PHYSIOLOGIST procedure are i n the results section. PARTIAL THROMBOPLASTIN STAT 08/09/2020 8:45 Scoliosis Re sults for this TIME AM PLANT PHYSIOLOGIST procedure are i n the results section. FIBRINOGEN ACTIVITY STAT 08/09/2020 8:45 Scoliosis Resul ts for this AM PLANT PHYSIOLOGIST procedure are i n the results section. CBC WITH PLATELETS STAT 08/09/2020 8:45 Scoliosis Result s for this AM PLANT PHYSIOLOGIST procedure are i n the results section. BLOOD COMPONENT Routine 08/09/2020 7:30 Scoliosis Results f or this AM PLANT PHYSIOLOGIST procedure are i n the results section. BLOOD COMPONENT Routine 08/09/2020 7:30 Scoliosis Results f or this AM PLANT PHYSIOLOGIST procedure are i n the results section. ABO/RH TYPE AND SCREEN STAT 08/09/2020 7:30 Scoliosis Re sults for this AM PLANT PHYSIOLOGIST procedure are i n the results section. GLUCOSE STAT 08/09/2020 7:30 Scoliosis Results for this AM PLANT PHYSIOLOGIST procedure are i n the results section. HCG QUALITATIVE URINE STAT 08/09/2020 7:00 Scoliosis Res ults for this AM PLANT PHYSIOLOGIST procedure are i n the results section. EXPLORE SPINE, REMOVE Routine 08/09/2020 6:48 Scoliosis HARDWARE, COMBINED AM PLANT PHYSIOLOGIST Painful orthopaedic hardware (H) LAB RESULT - HIM SCAN 07/25/2020 12:00 AM PLANT PHYSIOLOGIST documented in this encounter Results Magnesium (10/13/2020 3:50 PM PLANT PHYSIOLOGIST) athologist Signature Magnesium 2.2 1.6 - 2.3 10/13/2020 [facility] mg/dL 4:40 PM [facility] Specimen Anatomical Collection Method Collection Time Receive d Time (Source) Location / / Volume Laterality Blood specimen 10/13/2020 3:50 PM 021 3:55 (specimen) PLANT PHYSIOLOGIST PM PLANT PHYSIOLOGIST Ed Bartholomew MD LAB - BLOOD ORDERABLES Performing Organization Address City/[facility]/ZIP [facility] Phon e Number [address] [address] [facility] Phosphorus (10/13/2020 3:50 PM PLANT PHYSIOLOGIST) athologist Signature Phosphorus 4.5 2.5 - 4.5 10/13/2020 [facility] mg/dL 4:40 PM [facility] Specimen Anatomical Collection Method Collection Time Receive d Time (Source) Location / / Volume Laterality Blood specimen 10/13/2020 3:50 PM 021 3:55 (specimen) PLANT PHYSIOLOGIST PM PLANT PHYSIOLOGIST Ed Bartholomew MD LAB - BLOOD ORDERABLES Performing Organization Address City/State/ZIP Code Phon e Number [address] [address] [facility] Parathyroid Hormone Intact (10/13/2020 3:50 PM PLANT PHYSIOLOGIST) athologist Signature Parathyroid 30 18 - 80 10/14/2020 [facility] Intact pg/mL 1:47 AM [facility] Specimen Anatomical Collection Method Collection Time Receive d Time (Source) Location / / Volume Laterality Blood specimen 10/13/2020 3:50 PM 021 3:55 (specimen) PLANT PHYSIOLOGIST PM PLANT PHYSIOLOGIST Ed Bartholomew MD LAB - BLOOD ORDERABLES Performing Organization Address City/State/ZIP Code Phon e Number [facility] [address] [place] [address] [facility] Bone specific alk phosphatase (10/13/2020 3:50 PM PLANT PHYSIOLOGIST) athologist [facility] Bone Spec Alk 22.9 ug/L 10/14/2020 [facility] Phosphatase 5:10 PM PLANT PHYSIOLOGIST [facility] Comment: (Note) INTERPRETIVE INFORMATION: Bone Specific Alkaline [...] specific alk burt phosphatase result. Performed By: [facility] [address] [place] [address] Reference Services Head: Brandi Dooley MD Specimen Anatomical Collection Method Collection Time Receive d Time (Source) Location / / Volume Laterality Blood specimen 10/13/2020 3:50 PM 021 3:55 (specimen) PLANT PHYSIOLOGIST PM PLANT PHYSIOLOGIST Ed Bartholomew MD LAB - BLOOD ORDERABLES Performing Organization Address City/[facility] [email or web address] Code Phon e Number [facility] [address] [place] [address] [facility] Osteocalcin (10/13/2020 3:50 PM PLANT PHYSIOLOGIST) athologist [facility] Osteocalcin 41 11 - 50 10/15/2020 [facility] ng/mL 5:26 PM [facility] Comment: (Note) INTERPRETIVE INFORMATION: Osteocalcin by ECIA In patients with renal failure the osteo calcin result can be elevated, both directly, due to impai red clearance and indirectly, due to renal osteodystrophy. Access complete set of age- and/or gende r-specific reference intervals for this test in the [employer] Laboratory Test Directory ([employer]). Performed By: [facility] [address] [place] [address] Reference Services Head: Brandi Dooley MD Specimen Anatomical Collection Method Collection Time Receive d Time (Source) Location / / Volume Laterality Blood specimen 10/13/2020 3:50 PM 021 3:55 (specimen) PLANT PHYSIOLOGIST PM PLANT PHYSIOLOGIST Ed Bartholomew MD LAB - BLOOD ORDERABLES Performing Organization Address City/[facility]/ZIP Code Phon e Number [place] [id number] [place] [address] [facility] N telopeptide cross linked urine (10/13/2020 3:45 PM PLANT PHYSIOLOGIST) P athologist Signature N-Telopeptide 41 BCE/mM 10/15/2020 [facility] [employer] Urine 12:27 AM PLANT PHYSIOLOGIST [facility] Comment: (Note) Normal adult female: ??Premenopausal: ??17-94 [...] reference intervals for this test in the [employer] Laboratory Test Directory ([employer]). Creatinine Ur/Vol 90 mg/dL 10/15/2020 12:27 AM CS T [facility] Comment: (Note) Performed By: [facility] [address] [place] [id number] Reference Services Head: Brandi Dooley MD Specimen Anatomical Collection Method Collection Time Receive d Time (Source) Location / / Volume Laterality Urine specimen 10/13/2020 3:45 PM 021 3:55 (specimen) PLANT PHYSIOLOGIST PM PLANT PHYSIOLOGIST Ed Bartholomew MD LAB - URINE ORDERABLES Performing Organization Address City/State/ZIP Code Phon e Number [place] [id number] [place] [address] [facility] (ABNORMAL) TEG without Heparinase (08/15/2020 8:46 AM PLANT PHYSIOLOGIST) Patholo gist Method Time Signature R time until clot 5.0 5 - 10 08/15/2020 [facility] forms Minute 10:37 AM [facility] K time to spec clot 1.1 1 - 3 08/15/2020 [facility] OF strength Minute 10:37 AM [facility] Angle rate of clot 63.3 53 - 72 08/15/2020 [facility] strength Degrees 10:37 AM [facility] MA maximum clot 73.6 (H) 50 - 70 mm 08/15/2020 [facility] F strength 10:37 AM [facility] CI hypercoagulation 2.4 0.0 - 3.0 08/15/2020 [facility] OF index Ratio 10:37 AM [facility] G actual clot 13.9 (H) 4.5 - 11.0 08/15/2020 [facility] Kd/sc 10:37 AM [facility] LY30 lysis at 30 2.2 0 - 8 % 08/15/2020 [facility] F minutes 10:37 AM [facility] LY60 lysis at 60 6.1 0 - 15 % 08/15/2020 [facility] F minutes 10:37 AM [facility] Specimen Anatomical Collection Method Collection Time Receive d Time (Source) Location / / Volume Laterality Blood specimen 08/15/2020 8:46 AM 021 8:47 (specimen) PLANT PHYSIOLOGIST AM PLANT PHYSIOLOGIST Miles Steel MD LAB - BLOOD ORDERABLES Performing Organization Address City/State/ZIP Code Phon e Number [facility] [address] [place] [address] [facility] Partial thromboplastin time (08/15/2020 8:46 AM PLANT PHYSIOLOGIST) P athologist Signature PTT 34 22 - 37 sec 08/15/2020 [facility] 9:13 AM [facility] Specimen Anatomical Collection Method Collection Time Receive d Time (Source) Location / / Volume Laterality Blood specimen 08/15/2020 8:46 AM 021 8:47 (specimen) PLANT PHYSIOLOGIST AM PLANT PHYSIOLOGIST Miles Steel MD LAB - BLOOD ORDERABLES Performing Organization Address City/State/ZIP Code Phon e Number U [facility] OF M [facility] INR (08/15/2020 8:46 AM PLANT PHYSIOLOGIST) P athologist Signature INR 1.05 0.86 - 1.14 08/15/2020 [facility] [place] 9:12 AM [facility] Specimen Anatomical Collection Method Collection Time Receive d Time (Source) Location / / Volume Laterality Blood specimen 08/15/2020 8:46 AM 021 8:47 (specimen) PLANT PHYSIOLOGIST AM PLANT PHYSIOLOGIST Miles Steel MD LAB - BLOOD ORDERABLES Performing Organization Address City/State/ZIP Code Phon e Number U OF [facility] U [facility] (ABNORMAL) Fibrinogen activity (08/15/2020 8:46 AM PLANT PHYSIOLOGIST) P athologist Signature Fibrinogen 685 (H) 200 - 420 08/15/2020 [facility] [place] mg/dL 9:12 AM [facility] Specimen Anatomical Collection Method Collection Time Receive d Time (Source) Location / / Volume Laterality Blood specimen 08/15/2020 8:46 AM 021 8:47 (specimen) PLANT PHYSIOLOGIST AM PLANT PHYSIOLOGIST Miles Steel MD LAB - BLOOD ORDERABLES Performing Organization Address City/State/ZIP Code Phon e Number U OF [facility] U [facility] (ABNORMAL) CBC with platelets (08/15/2020 8:46 AM PLANT PHYSIOLOGIST) Patholo gist Method Time Signature WBC 5.6 4.0 - 11.0 08/15/2020 [facility] 10e9/L 9:03 AM [facility] RBC Count 3.06 (L) 3.8 - 5.2 08/15/2020 [facility] 10e12/L 9:03 AM [facility] Hemoglobin 9.3 (L) 11.7 - 08/15/2020 [facility] 15.7 g/dL 9:03 AM [facility] Hematocrit 28.7 (L) 35.0 - 08/15/2020 [facility] 47.0 % 9:03 AM [facility] MCV 94 78 - 100 08/15/2020 [facility] fl 9:03 AM [facility] MCH 30.4 26.5 - 08/15/2020 [facility] 33.0 pg 9:03 AM [facility] MCHC 32.4 31.5 - 08/15/2020 [facility] 36.5 g/dL 9:03 AM [facility] RDW 12.2 10.0 - 08/15/2020 [facility] 15.0 % 9:03 AM [facility] Platelet Count 274 150 - 450 08/15/2020 [facility] 10e9/L 9:03 AM [facility] Specimen Anatomical Collection Method Collection Time Receive d Time (Source) Location / / Volume Laterality Blood specimen 08/15/2020 8:46 AM 021 8:47 (specimen) PLANT PHYSIOLOGIST AM PLANT PHYSIOLOGIST Miles Steel MD LAB - BLOOD ORDERABLES Performing Organization Address City/State/ZIP Code Phon e Number [facility] [address] [place] [address] [facility] (ABNORMAL) TEG without Heparinase (08/14/2020 7:07 AM PLANT PHYSIOLOGIST) [facility] gist Method Time Signature R time until clot 3.8 (L) 5 - 10 08/14/2020 [facility] forms Minute 10:05 AM [facility] K time to spec clot 0.9 (L) 1 - 3 08/14/2020 [facility] OF strength Minute 10:05 AM [facility] Angle rate of clot 77.5 (H) 53 - 72 08/14/2020 [facility] strength Degrees 10:05 AM [facility] MA maximum clot 72.8 (H) 50 - 70 mm 08/14/2020 [facility] F strength 10:05 AM [facility] CI hypercoagulation 4.2 (H) 0.0 - 3.0 08/14/2020 [facility] OF index Ratio 10:05 AM [facility] G actual clot 13.4 (H) 4.5 - 11.0 08/14/2020 [facility] strength Kd/sc 10:05 AM [facility] LY30 lysis at 30 3.3 0 - 8 % 08/14/2020 [facility] F minutes 10:05 AM [facility] LY60 lysis at 60 7.5 0 - 15 % 08/14/2020 [facility] F minutes 10:05 AM [facility] Specimen Anatomical Collection Method Collection Time Receive d Time (Source) Location / / Volume Laterality Blood specimen 08/14/2020 7:07 AM 021 7:08 (specimen) PLANT PHYSIOLOGIST AM PLANT PHYSIOLOGIST Ronald Crawford MD LAB - BLOOD ORDERABLES Performing Organization Address City/State/ZIP Code Phon e Number [address] [address] [place] Partial thromboplastin time (08/14/2020 7:07 AM PLANT PHYSIOLOGIST) P athologist Signature PTT 30 22 - 37 sec 08/14/2020 [facility] 7:28 AM [facility] Specimen Anatomical Collection Method Collection Time Receive d Time (Source) Location / / Volume Laterality Blood specimen 08/14/2020 7:07 AM 021 7:08 (specimen) PLANT PHYSIOLOGIST AM PLANT PHYSIOLOGIST Yuniel Kilgore MD LAB - BLOOD ORDERABLES Performing Organization Address City/[facility]/ZIP Code Phon e Number [address] [address] [facility] INR (08/14/2020 7:07 AM PLANT PHYSIOLOGIST) athologist Signature INR 0.98 0.86 - 1.14 08/14/2020 [facility] 7:27 AM [facility] Specimen Anatomical Collection Method Collection Time Receive d Time (Source) Location / / Volume Laterality Blood specimen 08/14/2020 7:07 AM 021 7:08 (specimen) PLANT PHYSIOLOGIST AM PLANT PHYSIOLOGIST Yunile Kilgore MD LAB - BLOOD ORDERABLES Performing Organization Address City/[facility]/ZIP Code Phon e Number [address] [address] [facility] (ABNORMAL) Fibrinogen activity (08/14/2020 7:07 AM PLANT PHYSIOLOGIST) P athologist Signature Fibrinogen 603 (H) 200 - 420 08/14/2020 [facility] mg/dL 7:27 AM [facility] Specimen Anatomical Collection Method Collection Time Receive d Time (Source) Location / / Volume Laterality Blood specimen 08/14/2020 7:07 AM 021 7:08 (specimen) PLANT PHYSIOLOGIST AM PLANT PHYSIOLOGIST Yuniel Kilgore MD LAB - BLOOD ORDERABLES Performing Organization Address City/State/ZIP Code Phon e Number [address] [address] [facility] (ABNORMAL) CBC with platelets (08/14/2020 7:07 AM PLANT PHYSIOLOGIST) [facility] Method Time Signature WBC 6.5 4.0 - 11.0 08/14/2020 [facility] 10e9/L 7:13 AM [facility] RBC Count 2.99 (L) 3.8 - 5.2 08/14/2020 [facility] 10e12/L 7:13 AM [facility] Hemoglobin 9.1 (L) 11.7 - 08/14/2020 [facility] 15.7 g/dL 7:13 AM [facility] Hematocrit 28.2 (L) 35.0 - 08/14/2020 [place] 47.0 % 7:13 AM [facility] MCV 94 78 - 100 08/14/2020 [facility] fl 7:13 AM [facility] MCH 30.4 26.5 - 08/14/2020 [place] 33.0 pg 7:13 AM [facility] MCHC 32.3 31.5 - 08/14/2020 [place] 36.5 g/dL 7:13 AM [facility] RDW 12.4 10.0 - 08/14/2020 [place] 15.0 % 7:13 AM [facility] Platelet Count 242 150 - 450 08/14/2020 [facility] 10e9/L 7:13 AM [facility] Specimen Anatomical Collection Method Collection Time Receive d Time (Source) Location / / Volume Laterality Blood specimen 08/14/2020 7:07 AM 021 7:08 (specimen) PLANT PHYSIOLOGIST AM PLANT PHYSIOLOGIST Yuniel Kilgore MD LAB - BLOOD ORDERABLES Performing Organization Address City/State/ZIP Code Phon e Number [facility] [address] [place] [address] [facility] (ABNORMAL) TEG without Heparinase (08/13/2020 3:11 PM PLANT PHYSIOLOGIST) [facility] Method Time Signature R time until clot 2.8 (L) 5 - 10 08/13/2020 [facility] forms Minute 5:47 PM [facility] K time to spec clot 0.8 (L) 1 - 3 08/13/2020 [facility] Minute 5:47 PM [facility] Angle rate of clot 79.6 (H) 53 - 72 08/13/2020 [facility] strength Degrees 5:47 PM [facility] MA maximum clot 71.0 (H) 50 - 70 mm 08/13/2020 [facility] F strength 5:47 PM [facility] CI hypercoagulation 4.8 (H) 0.0 - 3.0 08/13/2020 [facility] OF index Ratio 5:47 PM [facility] G actual clot 12.3 (H) 4.5 - 11.0 08/13/2020 [facility] strength Kd/sc 5:47 PM [facility] LY30 lysis at 30 2.4 0 - 8 % 08/13/2020 [facility] F minutes 5:47 PM [facility] LY60 lysis at 60 5.7 0 - 15 % 08/13/2020 [place] [facility] minutes 5:47 PM [facility] Specimen Anatomical Collection Method Collection Time Receive d Time (Source) Location / / Volume Laterality 08/13/2020 3:11 PM 3:12 PLANT PHYSIOLOGIST PM PLANT PHYSIOLOGIST Yuniel Kilgore MD LAB - BLOOD ORDERABLES Performing Organization Address City/State/ZIP Code Phon e Number [facility] [address] [place] [address] [facility] (ABNORMAL) CBC with platelets (08/13/2020 3:11 PM PLANT PHYSIOLOGIST) [facility] Method Time Signature WBC 7.0 4.0 - 11.0 08/13/2020 [facility] 10e9/L 3:19 PM [facility] RBC Count 3.24 (L) 3.8 - 5.2 08/13/2020 [facility] 10e12/L 3:19 PM [facility] Hemoglobin 9.9 (L) 11.7 - 08/13/2020 [facility] 15.7 g/dL 3:19 PM [facility] Hematocrit 31.1 (L) 35.0 - 08/13/2020 [facility] 47.0 % 3:19 PM [facility] MCV 96 78 - 100 08/13/2020 [facility] fl 3:19 PM [facility] MCH 30.6 26.5 - 08/13/2020 [facility] 33.0 pg 3:19 PM [facility] MCHC 31.8 31.5 - 08/13/2020 [facility] 36.5 g/dL 3:19 PM [facility] RDW 12.3 10.0 - 08/13/2020 [facility] 15.0 % 3:19 PM [facility] Platelet Count 238 150 - 450 08/13/2020 [facility] 10e9/L 3:19 PM [facility] Specimen Anatomical Collection Method Collection Time Receive d Time (Source) Location / / Volume Laterality Blood specimen 08/13/2020 3:11 PM 021 3:12 (specimen) PLANT PHYSIOLOGIST PM PLANT PHYSIOLOGIST Yuniel Kilgore MD LAB - BLOOD ORDERABLES Performing Organization Address City/State/ZIP Code Phon e Number [facility] [address] [place] [address] [facility] (ABNORMAL) CBC with platelets (08/13/2020 7:58 AM PLANT PHYSIOLOGIST) [facility] gist Method Time Signature WBC 6.5 4.0 - 11.0 08/13/2020 [facility] 10e9/L 8:06 AM [facility] RBC Count 2.72 (L) 3.8 - 5.2 08/13/2020 [facility] 10e12/L 8:06 AM [facility] Hemoglobin 8.2 (L) 11.7 - 08/13/2020 [facility] 15.7 g/dL 8:06 AM [facility] Hematocrit 25.4 (L) 35.0 - 08/13/2020 [facility] 47.0 % 8:06 AM [facility] MCV 93 78 - 100 08/13/2020 [facility] fl 8:06 AM [facility] MCH 30.1 26.5 - 08/13/2020 [facility] 33.0 pg 8:06 AM [facility] MCHC 32.3 31.5 - 08/13/2020 [facility] 36.5 g/dL 8:06 AM [facility] RDW 12.3 10.0 - 08/13/2020 [facility] 15.0 % 8:06 AM [facility] Platelet Count 190 150 - 450 08/13/2020 [facility] 10e9/L 8:06 AM [facility] Specimen Anatomical Collection Method Collection Time Receive d Time (Source) Location / / Volume Laterality 08/13/2020 7:58 AM 8:02 PLANT PHYSIOLOGIST AM PLANT PHYSIOLOGIST Eleanor Dooley MD LAB - BLOOD ORDERABLES Performing Organization Address City/[facility]/ZIP Code Phon e Number [address] [address] [facility] Partial thromboplastin time (08/13/2020 6:49 AM PLANT PHYSIOLOGIST) P athologist Signature PTT 34 22 - 37 sec 08/13/2020 [facility] 7:21 AM [facility] Specimen Anatomical Collection Method Collection Time Receive d Time (Source) Location / / Volume Laterality 08/13/2020 6:49 AM 7:02 PLANT PHYSIOLOGIST AM PLANT PHYSIOLOGIST Sinziana Cornea DO LAB - BLOOD ORDERABLES Performing Organization Address City/[facility]/ZIP Code Phon e Number [address] [address] [facility] INR (08/13/2020 6:49 AM PLANT PHYSIOLOGIST) P athologist Signature INR 1.05 0.86 - 1.14 08/13/2020 [facility] 7:20 AM [facility] Specimen Anatomical Collection Method Collection Time Receive d Time (Source) Location / / Volume Laterality 08/13/2020 6:49 AM 7:02 PLANT PHYSIOLOGIST AM [facility] PHYSIOLOGIST [facility] Cor[facility] DO LAB - BLOOD ORDERABLES Performing Organization Address City/State/ZIP Code Phon e Number [address] [address] [facility] (ABNORMAL) Fibrinogen activity (08/13/2020 6:49 AM PLANT PHYSIOLOGIST) P athologist Signature Fibrinogen 642 (H) 200 - 420 08/13/2020 [facility] mg/dL 7:20 AM [facility] Specimen Anatomical Collection Method Collection Time Receive d Time (Source) Location / / Volume Laterality 08/13/2020 6:49 AM 7:02 PLANT PHYSIOLOGIST AM PLANT PHYSIOLOGIST Sinziana Cornea DO LAB - BLOOD ORDERABLES Performing Organization Address City/State/ZIP Code Phon e Number [facility] [address] [place] [address] [facility] (ABNORMAL) Basic metabolic panel (08/13/2020 6:49 AM [facility]) Analysis Performed At Patho logist Time Signature Sodium 142 133 - 144 08/13/2020 [facility] mmol/L 7:19 AM [facility] Potassium 3.3 (L) 3.4 - 5.3 08/13/2020 [facility] mmol/L 7:19 AM [facility] Chloride 109 96 - 110 08/13/2020 [place] mmol/L 7:19 AM [facility] Carbon Dioxide 27 20 - 32 08/13/2020 [place] mmol/L 7:26 AM [facility] Anion Gap 6 3 - 14 08/13/2020 [place] mmol/L 7:26 AM [facility] Glucose 88 70 - 99 08/13/2020 [place] mg/dL 7:26 AM [facility] Urea Nitrogen 6 (L) 7 - 30 08/13/2020 [place] mg/dL 7:26 AM [facility] Creatinine 0.52 0.50 - 08/13/2020 [facility] mg/dL 7:26 AM [facility] GFR Estimate >90 >60 08/13/2020 [place] mL/min/{1. 7:26 AM [facility] 73_m2} [facility] Comment: Non GFR Calc Starting 07/22/2018, serum creatinine ba sed estimated GFR (eGFR) will be calculated using the Chronic Kidney Dise banner Epidemiology Collaboration (CKD-EPI) equation. GFR Estimate If >90 >60 mL/min/{1.73_m2} 08/13/2020 7: 26 AM [facility] Comment: GFR Calc Starting 07/22/2018, serum creatinine ba sed estimated GFR (eGFR) will be calculated using the Chronic Kidney Dise banner Epidemiology Collaboration (CKD-EPI) equation. Calcium 8.3 (L) 8.5 - 10.1 mg/dL 08/13/2020 7:26 AM [facility] Specimen Anatomical Collection Method Collection Time Receive d Time (Source) Location / / Volume Laterality Blood specimen 08/13/2020 6:49 AM 021 7:02 (specimen) PLANT PHYSIOLOGIST AM PLANT PHYSIOLOGIST Yuniel Kilgore MD LAB - BLOOD ORDERABLES Performing Organization Address City/State/ZIP Code Phon e Number M [facility] [address] [place] [address] [address] [facility] [address] [place] [address], U [phone] Partial thromboplastin time (08/12/2020 7:30 PM PLANT PHYSIOLOGIST) P athologist Signature PTT 30 22 - 37 sec 08/12/2020 [facility] 7:48 PM [facility] Specimen Anatomical Collection Method Collection Time Receive d Time (Source) Location / / Volume Laterality Blood specimen 08/12/2020 7:30 PM 021 7:31 (specimen) PLANT PHYSIOLOGIST PM PLANT PHYSIOLOGIST Vivi Cornea DO LAB - BLOOD ORDERABLES Performing Organization Address City/[facility]/ZIP Code Phon e Number [address] [address] [facility] INR (08/12/2020 7:30 PM PLANT PHYSIOLOGIST) P athologist Signature INR 0.99 0.86 - 1.14 08/12/2020 [facility] 7:47 PM [facility] Specimen Anatomical Collection Method Collection Time Receive d Time (Source) Location / / Volume Laterality Blood specimen 08/12/2020 7:30 PM 021 7:31 (specimen) PLANT PHYSIOLOGIST PM PLANT PHYSIOLOGIST [facility] Cor[facility] DO LAB - BLOOD ORDERABLES Performing Organization Address City/[facility]/ZIP Code Phon e Number [address] [address] [facility] (ABNORMAL) Fibrinogen activity (08/12/2020 7:30 PM PLANT PHYSIOLOGIST) P athologist Signature Fibrinogen 625 (H) 200 - 420 08/12/2020 [facility] mg/dL 7:48 PM [facility] Specimen Anatomical Collection Method Collection Time Receive d Time (Source) Location / / Volume Laterality Blood specimen 08/12/2020 7:30 PM 021 7:31 (specimen) PLANT PHYSIOLOGIST PM PLANT PHYSIOLOGIST Sinziana Cornea DO LAB - BLOOD ORDERABLES Performing Organization Address City/[facility]/ZIP [facility] Phon e Number [address] [address] [facility] (ABNORMAL) CBC with platelets (08/12/2020 7:30 PM PLANT PHYSIOLOGIST) [facility] gist Method Time Signature WBC 9.9 4.0 - 11.0 08/12/2020 [facility] 10e9/L 7:39 PM [facility] RBC Count 3.39 (L) 3.8 - 5.2 08/12/2020 [facility] 10e12/L 7:39 PM [facility] Hemoglobin 10.4 (L) 11.7 - 08/12/2020 [facility] 15.7 g/dL 7:39 PM [facility] Hematocrit 31.8 (L) 35.0 - 08/12/2020 [facility] 47.0 % 7:39 PM [facility] MCV 94 78 - 100 08/12/2020 [facility] fl 7:39 PM [facility] MCH 30.7 26.5 - 08/12/2020 [facility] 33.0 pg 7:39 PM [facility] MCHC 32.7 31.5 - 08/12/2020 [facility] 36.5 g/dL 7:39 PM [facility] RDW 12.1 10.0 - 08/12/2020 [facility] 15.0 % 7:39 PM [facility] Platelet Count 224 150 - 450 08/12/2020 [facility] 10e9/L 7:39 PM [facility] Specimen Anatomical Collection Method Collection Time Receive d Time (Source) Location / / Volume Laterality Blood specimen 08/12/2020 7:30 PM 021 7:31 (specimen) PLANT PHYSIOLOGIST PM PLANT PHYSIOLOGIST Sinziana Cornea DO LAB - BLOOD ORDERABLES Performing Organization Address City/[facility]/ZIP Code Phon e Number [address] [address] [facility] EKG 12-lead, complete (08/12/2020 6:42 PM PLANT PHYSIOLOGIST) [facility] gist Method Time Signature Interpretation ECG Click View RADIOLOGY Image link RESULTS to view waveform and result Specimen (Source) Anatomical Collection Method Collection Time Re ceived Time Location / / Volume Laterality 08/12/2020 6:42 PM PLANT PHYSIOLOGIST Sinziana Cornea DO ECG ORDERABLES Performing Organization Address City/State/ZIP Code Phon e Number RADIOLOGY RESULTS XR Thoracic Lumbar Standing 2 Views (08/12/2020 6:07 PM PLANT PHYSIOLOGIST) Anatomical Region Laterality Modality C-spine, T-spine, L-spine Computed Radio graphy Specimen (Source) Anatomical Location Collection Method / Collectio n Time Received Time / Laterality Volume Impressions 08/12/2020 6:42 PM PLANT PHYSIOLOGIST IMPRESSION: No change status post thoracolumbar fixation. No other bony abnormality identified. PREET DIAZ MD Narrative 08/12/2020 6:42 PM PLANT PHYSIOLOGIST XR BONE SURVEY COMPLETE PEDS, XR THORACIC [...] Bone Survey Complete Peds (08/12/2020 6:06 PM PLANT PHYSIOLOGIST) Anatomical Region Laterality Modality C-spine, T-spine, L-spine, Neck, Arm, Forearm, Thigh, Bilate ral Computed Radiography Leg, Abdomen/Pelvis Specimen (Source) Anatomical Location Collection Method / Collectio n Time Received Time / Laterality Volume Impressions 08/12/2020 6:42 PM PLANT PHYSIOLOGIST IMPRESSION: No change status post thoracolumbar fixation. No other bony abnormality identified. PREET DIAZ MD Narrative 08/12/2020 6:42 PM PLANT PHYSIOLOGIST XR BONE SURVEY COMPLETE PEDS, XR THORACIC [...] (ABNORMAL) TEG without Heparinase (08/12/2020 8:11 AM PLANT PHYSIOLOGIST) Patholo gist Method Time Signature R time until clot 4.4 (L) 5 - 10 08/12/2020 [facility] Minute 9:47 AM [facility] K time to spec clot 1.1 1 - 3 08/12/2020 [facility] Y OF strength Minute 9:47 AM [facility] Angle rate of clot 74.9 (H) 53 - 72 08/12/2020 [facility] [employer] Degrees 9:47 AM [facility] MA maximum clot 71.6 (H) 50 - 70 mm 08/12/2020 [facility] O F strength 9:47 AM [facility] CI hypercoagulation 3.4 (H) 0.0 - 3.0 08/12/2020 [facility] Y OF index Ratio 9:47 AM [facility] G actual clot 12.6 (H) 4.5 - 11.0 08/12/2020 [employer] Kd/sc 9:47 AM [facility] LY30 lysis at 30 2.8 0 - 8 % 08/12/2020 [facility] O F minutes 9:47 AM [facility] LY60 lysis at 60 6.9 0 - 15 % 08/12/2020 [facility] O F minutes 9:47 AM [facility] Specimen Anatomical Collection Method Collection Time Receive d Time (Source) Location / / Volume Laterality Blood specimen 08/12/2020 8:11 AM 021 8:12 (specimen) PLANT PHYSIOLOGIST AM PLANT PHYSIOLOGIST Sinziana Cornea DO LAB - BLOOD ORDERABLES Performing Organization Address City/State/ZIP Code Phon e Number [facility] [address] [place] [address] [facility] Partial thromboplastin time (08/11/2020 5:22 PM PLANT PHYSIOLOGIST) P athologist Signature PTT 36 22 - 37 sec 08/11/2020 [facility] 5:38 PM [facility] Specimen Anatomical Collection Method Collection Time Receive d Time (Source) Location / / Volume Laterality Blood specimen 08/11/2020 5:22 PM 5:23 (specimen) PLANT PHYSIOLOGIST PM PLANT PHYSIOLOGIST [facility] Cor[facility] DO LAB - BLOOD ORDERABLES Performing Organization Address City/State/ZIP Code Phon e Number U [facility] U OF [facility] (ABNORMAL) CBC with platelets (08/11/2020 5:22 PM PLANT PHYSIOLOGIST) Patholo gist Method Time Signature WBC 11.6 (H) 4.0 - 11.0 08/11/2020 [facility] 10e9/L 5:29 PM [facility] RBC Count 3.46 (L) 3.8 - 5.2 08/11/2020 [facility] 10e12/L 5:29 PM [facility] Hemoglobin 10.6 (L) 11.7 - 08/11/2020 [facility] 15.7 g/dL 5:29 PM [facility] Hematocrit 32.6 (L) 35.0 - 08/11/2020 [facility] 47.0 % 5:29 PM [facility] MCV 94 78 - 100 08/11/2020 [facility] OF fl 5:29 PM [facility] MCH 30.6 26.5 - 08/11/2020 [facility] 33.0 pg 5:29 PM [facility] MCHC 32.5 31.5 - 08/11/2020 [facility] 36.5 g/dL 5:29 PM [facility] RDW 12.2 10.0 - 08/11/2020 [facility] 15.0 % 5:29 PM [facility] Platelet Count 209 150 - 450 08/11/2020 [facility] 10e9/L 5:29 PM [facility] Specimen Anatomical Collection Method Collection Time Receive d Time (Source) Location / / Volume Laterality Blood specimen 08/11/2020 5:22 PM 021 5:23 (specimen) PLANT PHYSIOLOGIST PM PLANT PHYSIOLOGIST Sinziana Cornea DO LAB - BLOOD ORDERABLES Performing Organization Address City/State/ZIP Code Phon e Number [facility] [address] [place] [address] [facility] (ABNORMAL) Fibrinogen activity (08/11/2020 5:22 PM PLANT PHYSIOLOGIST) P athologist Signature Fibrinogen 564 (H) 200 - 420 08/11/2020 [facility] mg/dL 5:38 PM [facility] Specimen Anatomical Collection Method Collection Time Receive d Time (Source) Location / / Volume Laterality Blood specimen 08/11/2020 5:22 PM 021 5:23 (specimen) PLANT PHYSIOLOGIST PM PLANT PHYSIOLOGIST Sinziana Cornea DO LAB - BLOOD ORDERABLES Performing Organization Address City/[facility]/ZIP Code Phon e Number U OF [facility] U OF [facility] (ABNORMAL) INR (08/11/2020 5:22 PM PLANT PHYSIOLOGIST) P athologist Signature INR 1.21 (H) 0.86 - 1.14 08/11/2020 [facility] 5:38 PM [facility] Specimen Anatomical Collection Method Collection Time Receive d Time (Source) Location / / Volume Laterality Blood specimen 08/11/2020 5:22 PM 021 5:23 (specimen) PLANT PHYSIOLOGIST PM PLANT PHYSIOLOGIST Sinziana Cornea DO LAB - BLOOD ORDERABLES Performing Organization Address City/State/ZIP Code Phon e Number U OF [facility] U [facility] (ABNORMAL) Fibrinogen activity (08/11/2020 10:03 AM PLANT PHYSIOLOGIST) P athologist Signature Fibrinogen 515 (H) 200 - 420 08/11/2020 [facility] OF mg/dL 10:50 AM PLANT PHYSIOLOGIST [facility] Specimen Anatomical Collection Method Collection Time Receive d Time (Source) Location / / Volume Laterality Blood specimen 08/11/2020 10:03 1 (specimen) AM PLANT PHYSIOLOGIST 10:04 AM PLANT PHYSIOLOGIST Marli Limon MD LAB - BLOOD ORDERABLES Performing Organization Address City/State/ZIP Code Phon e Number [facility] [address] [place] [address] [facility] (ABNORMAL) TEG without Heparinase (08/11/2020 10:03 AM PLANT PHYSIOLOGIST) Patholo gist Method Time Signature R time until clot 5.1 5 - 10 08/11/2020 [facility] OF forms Minute 12:47 PM [facility] K time to spec clot 1.1 1 - 3 08/11/2020 [facility] Y OF strength Minute 12:47 PM [facility] Angle rate of clot 72.6 (H) 53 - 72 08/11/2020 [facility] OF strength Degrees 12:47 PM [facility] MA maximum clot 68.4 50 - 70 mm 08/11/2020 [facility] O F strength 12:47 PM [facility] CI hypercoagulation 2.4 0.0 - 3.0 08/11/2020 [facility] Y OF index Ratio 12:47 PM [facility] G actual clot 10.8 4.5 - 11.0 08/11/2020 [facility] OF strength Kd/sc 12:47 PM [facility] LY30 lysis at 30 4.3 0 - 8 % 08/11/2020 [facility] O F minutes 12:47 PM [facility] LY60 lysis at 60 8.2 0 - 15 % 08/11/2020 [facility] O F minutes 12:47 PM [facility] Specimen Anatomical Collection Method Collection Time Receive d Time (Source) Location / / Volume Laterality Blood specimen 08/11/2020 10:03 1 (specimen) AM PLANT PHYSIOLOGIST 10:04 AM PLANT PHYSIOLOGIST Marli Limon MD LAB - BLOOD ORDERABLES Performing Organization Address City/State/ZIP Code Phon e Number [address] [address] [facility] Partial thromboplastin time (08/11/2020 10:03 AM PLANT PHYSIOLOGIST) P athologist Signature PTT 37 22 - 37 sec 08/11/2020 [facility] 10:50 AM [facility] Specimen Anatomical Collection Method Collection Time Receive d Time (Source) Location / / Volume Laterality Blood specimen 08/11/2020 10:03 1 (specimen) AM PLANT PHYSIOLOGIST 10:04 AM PLANT PHYSIOLOGIST Marli Limon MD LAB - BLOOD ORDERABLES Performing Organization Address City/State/ZIP Code Phon e Number [address] [address] [facility] (ABNORMAL) INR (08/11/2020 10:03 AM PLANT PHYSIOLOGIST) P athologist Signature INR 1.24 (H) 0.86 - 1.14 08/11/2020 [facility] 10:50 AM [facility] Specimen Anatomical Collection Method Collection Time Receive d Time (Source) Location / / Volume Laterality Blood specimen 08/11/2020 10:03 1 (specimen) AM PLANT PHYSIOLOGIST 10:04 AM PLANT PHYSIOLOGIST Marli Limon MD LAB - BLOOD ORDERABLES Performing Organization Address City/State/ZIP Code Phon e Number [address] [address] [facility] (ABNORMAL) CBC with platelets (08/11/2020 10:03 AM PLANT PHYSIOLOGIST) Patholo gist Method Time Signature WBC 11.1 (H) 4.0 - 11.0 08/11/2020 [facility] OF 10e9/L 10:42 AM [facility] RBC Count 3.51 (L) 3.8 - 5.2 08/11/2020 [facility] OF 10e12/L 10:42 AM [facility] Hemoglobin 10.6 (L) 11.7 - 08/11/2020 [facility] 15.7 g/dL 10:42 AM [facility] Hematocrit 32.8 (L) 35.0 - 08/11/2020 [facility] 47.0 % 10:42 AM [facility] MCV 93 78 - 100 08/11/2020 [facility] OF fl 10:42 AM [facility] MCH 30.2 26.5 - 08/11/2020 [facility] OF 33.0 pg 10:42 AM [facility] MCHC 32.3 31.5 - 08/11/2020 [facility] OF 36.5 g/dL 10:42 AM [facility] RDW 12.3 10.0 - 08/11/2020 [facility] OF 15.0 % 10:42 AM [facility] Platelet Count 210 150 - 450 08/11/2020 [facility] OF 10e9/L 10:42 AM [facility] Specimen Anatomical Collection Method Collection Time Receive d Time (Source) Location / / Volume Laterality Blood specimen 08/11/2020 10:03 (specimen) AM PLANT PHYSIOLOGIST 10:04 AM PLANT PHYSIOLOGIST Marli Lmion MD LAB - BLOOD ORDERABLES Performing Organization Address City/[facility]/ZIP Code Phon e Number [facility] [address] [place] [address] [facility] [facility]) Fibrinogen activity (08/11/2020 6:09 AM PLANT PHYSIOLOGIST) P athologist Signature Fibrinogen 486 (H) 200 - 420 08/11/[address] [facility] mg/dL 6:33 AM [facility] Specimen Anatomical Collection Method Collection Time Receive d Time (Source) Location / / Volume Laterality Blood specimen 08/11/2020 6:09 AM 021 6:10 (specimen) PLANT PHYSIOLOGIST AM PLANT PHYSIOLOGIST Marli Limon MD LAB - BLOOD ORDERABLES Performing Organization Address City/State/ZIP Code Phon e Number U [facility] U OF M [facility] (ABNORMAL) TEG without Heparinase (08/11/2020 6:09 AM PLANT PHYSIOLOGIST) Patholo gist Method Time Signature R time until clot 4.7 (L) 5 - 10 08/11/2020 [facility] forms Minute 7:39 AM [facility] K time to spec clot 1.1 1 - 3 08/11/2020 [facility] strength Minute 7:39 AM [facility] Angle rate of clot 73.3 (H) 53 - 72 08/11/2020 [facility] strength Degrees 7:39 AM [facility] MA maximum clot 69.6 50 - 70 mm 08/11/2020 [facility] F strength 7:39 AM [facility] CI hypercoagulation 2.8 0.0 - 3.0 08/11/2020 [facility] index Ratio 7:39 AM [facility] G actual clot 11.5 (H) 4.5 - 11.0 08/11/2020 [facility] strength Kd/sc 7:39 AM [facility] LY30 lysis at 30 2.8 0 - 8 % 08/11/2020 [facility] F minutes 7:39 AM [facility] LY60 lysis at 60 7.1 0 - 15 % 08/11/2020 [place] [facility] minutes 7:39 AM [facility] Specimen Anatomical Collection Method Collection Time Receive d Time (Source) Location / / Volume Laterality Blood specimen 08/11/2020 6:09 AM 021 6:10 (specimen) PLANT PHYSIOLOGIST AM PLANT PHYSIOLOGIST Marli Limon MD LAB - BLOOD ORDERABLES Performing Organization Address City/State/ZIP Code Phon e Number [facility] [address] [place], [place] [id number] [place] [address] Partial thromboplastin time (08/11/2020 6:09 AM PLANT PHYSIOLOGIST) P athologist Signature PTT 34 22 - 37 sec 08/11/2020 [facility] [place] 6:33 AM [facility] Specimen Anatomical Collection Method Collection Time Receive d Time (Source) Location / / Volume Laterality Blood specimen 08/11/2020 6:09 AM 021 6:10 (specimen) PLANT PHYSIOLOGIST AM PLANT PHYSIOLOGIST Marli Limon MD LAB - BLOOD ORDERABLES Performing Organization Address City/State/ZIP Code Phon e Number [facility] [place] [facility] (ABNORMAL) INR (08/11/2020 6:09 AM PLANT PHYSIOLOGIST) P athologist Signature INR 1.27 (H) 0.86 - 1.14 08/11/2020 [facility] [place] 6:32 AM [facility] Specimen Anatomical Collection Method Collection Time Receive d Time (Source) Location / / Volume Laterality Blood specimen 08/11/2020 6:09 AM 021 6:10 (specimen) PLANT PHYSIOLOGIST AM PLANT PHYSIOLOGIST Marli Limon MD LAB - BLOOD ORDERABLES Performing Organization Address City/State/ZIP Code Phon e Number U OF [facility] U OF M [facility] (ABNORMAL) CBC with platelets (08/11/2020 6:09 AM PLANT PHYSIOLOGIST) [facility] gist Method Time Signature WBC 12.5 (H) 4.0 - 11.0 08/11/2020 [facility] 10e9/L 6:23 AM [facility] RBC Count 3.56 (L) 3.8 - 5.2 08/11/2020 [facility] 10e12/L 6:23 AM [facility] Hemoglobin 10.9 (L) 11.7 - 08/11/2020 [facility] 15.7 g/dL 6:23 AM [facility] Hematocrit 33.6 (L) 35.0 - 08/11/2020 [facility] OF 47.0 % 6:23 AM [facility] MCV 94 78 - 100 08/11/2020 [facility] OF fl 6:23 AM [facility] MCH 30.6 26.5 - 08/11/2020 [facility] 33.0 pg 6:23 AM [facility] MCHC 32.4 31.5 - 08/11/2020 [facility] 36.5 g/dL 6:23 AM [facility] RDW 12.2 10.0 - 08/11/2020 [facility] 15.0 % 6:23 AM [facility] Platelet Count 199 150 - 450 08/11/2020 [facility] 10e9/L 6:23 AM [facility] Specimen Anatomical Collection Method Collection Time Receive d Time (Source) Location / / Volume Laterality Blood specimen 08/11/2020 6:09 AM 021 6:10 (specimen) PLANT PHYSIOLOGIST AM PLANT PHYSIOLOGIST Marli Limon MD LAB - BLOOD ORDERABLES Performing Organization Address City/State/ZIP Code Phon e Number [facility] [address] [place] [address] [facility] [place] Fibrinogen activity (08/10/2020 9:50 PM PLANT PHYSIOLOGIST) P athologist Signature Fibrinogen 403 200 - 420 08/10/2020 [facility] OF mg/dL 10:41 PM PLANT PHYSIOLOGIST [facility] Specimen Anatomical Collection Method Collection Time Receive d Time (Source) Location / / Volume Laterality Blood specimen 08/10/2020 9:50 PM 021 9:52 (specimen) PLANT PHYSIOLOGIST PM PLANT PHYSIOLOGIST Marli Limon MD LAB - BLOOD ORDERABLES Performing Organization Address City/State/ZIP Code Phon e Number [facility] [address] [place] [address] [facility] [place] (ABNORMAL) TEG without Heparinase (08/10/2020 9:50 PM PLANT PHYSIOLOGIST) Patholo gist Method Time Signature R time until clot 4.0 (L) 5 - 10 08/10/2020 [facility] forms Minute 11:56 PM [facility] K time to spec clot 1.2 1 - 3 08/10/2020 [facility] OF strength Minute 11:56 PM [facility] Angle rate of clot 73.2 (H) 53 - 72 08/10/2020 [facility] strength Degrees 11:56 PM [facility] MA maximum clot 64.4 50 - 70 mm 08/10/2020 [facility] F strength 11:56 PM [facility] CI hypercoagulation 2.6 0.0 - 3.0 08/10/2020 [facility] OF index Ratio 11:56 PM [facility] G actual clot 9.0 4.5 - 11.0 08/10/2020 [facility] strength Kd/sc 11:56 PM [facility] LY30 lysis at 30 2.6 0 - 8 % 08/10/2020 [facility] F minutes 11:56 PM [facility] LY60 lysis at 60 6.4 0 - 15 % 08/10/2020 [facility] F minutes 11:56 PM [facility] Specimen Anatomical Collection Method Collection Time Receive d Time (Source) Location / / Volume Laterality Blood specimen 08/10/2020 9:50 PM 021 9:53 (specimen) PLANT PHYSIOLOGIST PM PLANT PHYSIOLOGIST Marli Limon MD LAB - BLOOD ORDERABLES Performing Organization Address City/State/ZIP Code Phon e Number [address] [address] [facility] [place] Partial thromboplastin time (08/10/2020 9:50 PM PLANT PHYSIOLOGIST) P athologist Signature PTT 31 22 - 37 sec 08/10/2020 [facility] 10:21 PM [facility] Specimen Anatomical Collection Method Collection Time Receive d Time (Source) Location / / Volume Laterality Blood specimen 08/10/2020 9:50 PM 021 9:52 (specimen) PLANT PHYSIOLOGIST PM PLANT PHYSIOLOGIST Marli Limon MD LAB - BLOOD ORDERABLES Performing Organization Address City/State/ZIP Code Phon e Number [address] [address] [facility] [place] (ABNORMAL) INR (08/10/2020 9:50 PM PLANT PHYSIOLOGIST) athologist Signature INR 1.21 (H) 0.86 - 1.14 08/10/2020 [facility] 10:41 PM [facility] Specimen Anatomical Collection Method Collection Time Receive d Time (Source) Location / / Volume Laterality Blood specimen 08/10/2020 9:50 PM 021 9:52 (specimen) PLANT PHYSIOLOGIST PM PLANT PHYSIOLOGIST Marli Limon MD LAB - BLOOD ORDERABLES Performing Organization Address City/State/ZIP Code Phon e Number [address] [address] [facility] [place] (ABNORMAL) CBC with platelets (08/10/2020 9:50 PM PLANT PHYSIOLOGIST) [facility] gist Method Time Signature WBC 12.9 (H) 4.0 - 11.0 08/10/2020 [facility] 10e9/L 9:56 PM [facility] RBC Count 3.59 (L) 3.8 - 5.2 08/10/2020 [facility] 10e12/L 9:56 PM [facility] Hemoglobin 10.9 (L) 11.7 - 08/10/2020 [facility] 15.7 g/dL 9:56 PM [facility] Hematocrit 33.7 (L) 35.0 - 08/10/2020 [facility] 47.0 % 9:56 PM [facility] MCV 94 78 - 100 08/10/2020 [facility] OF fl 9:56 PM [facility] MCH 30.4 26.5 - 08/10/2020 [facility] 33.0 pg 9:56 PM [facility] MCHC 32.3 31.5 - 08/10/2020 [facility] 36.5 g/dL 9:56 PM [facility] RDW 12.3 10.0 - 08/10/2020 [facility] 15.0 % 9:56 PM [facility] Platelet Count 193 150 - 450 08/10/2020 [facility] 10e9/L 9:56 PM [facility] Specimen Anatomical Collection Method Collection Time Receive d Time (Source) Location / / Volume Laterality Blood specimen 08/10/2020 9:50 PM 021 9:52 (specimen) PLANT PHYSIOLOGIST PM PLANT PHYSIOLOGIST Marli Limon MD LAB - BLOOD ORDERABLES Performing Organization Address City/State/ZIP Code Phon e Number [facility] [address] [place] [address] [facility] [place] (ABNORMAL) TEG without Heparinase (08/10/2020 4:00 PM PLANT PHYSIOLOGIST) [facility] Method Time Signature R time until clot 3.2 (L) 5 - 10 08/10/2020 [facility] forms Minute 6:24 PM [facility] K time to spec clot 1.2 1 - 3 08/10/2020 [facility] OF strength Minute 6:24 PM [facility] Angle rate of clot 73.1 (H) 53 - 72 08/10/2020 [facility] strength Degrees 6:24 PM [facility] MA maximum clot 63.9 50 - 70 mm 08/10/2020 [facility] F strength 6:24 PM [facility] CI hypercoagulation 3.0 0.0 - 3.0 08/10/2020 [facility] OF index Ratio 6:24 PM [facility] G actual clot 8.8 4.5 - 11.0 08/10/2020 [facility] strength Kd/sc 6:24 PM [facility] LY30 lysis at 30 3.3 0 - 8 % 08/10/2020 [facility] F minutes 6:24 PM [facility] LY60 lysis at 60 7.3 0 - 15 % 08/10/2020 [facility] F minutes 6:24 PM [facility] Specimen Anatomical Collection Method Collection Time Receive d Time (Source) Location / / Volume Laterality Blood specimen 08/10/2020 4:00 PM 021 4:35 (specimen) PLANT PHYSIOLOGIST PM PLANT PHYSIOLOGIST Eden Moncada MD LAB - BLOOD ORDERABLES Performing Organization Address City/State/ZIP Code Phon e Number [facility] [address] [place] [address] [facility] [place] (ABNORMAL) CBC with platelets (08/10/2020 4:00 PM PLANT PHYSIOLOGIST) [facility] gist Method Time Signature WBC 12.9 (H) 4.0 - 11.0 08/10/2020 [facility] 10e9/L 5:00 PM [facility] RBC Count 3.46 (L) 3.8 - 5.2 08/10/2020 [facility] 10e12/L 5:00 PM [facility] Hemoglobin 10.5 (L) 11.7 - 08/10/2020 [facility] 15.7 g/dL 5:00 PM [facility] Hematocrit 31.4 (L) 35.0 - 08/10/2020 [facility] 47.0 % 5:00 PM [facility] MCV 91 78 - 100 08/10/2020 [facility] OF fl 5:00 PM [facility] MCH 30.3 26.5 - 08/10/2020 [facility] 33.0 pg 5:00 PM [facility] MCHC 33.4 31.5 - 08/10/2020 [facility] 36.5 g/dL 5:00 PM [facility] RDW 12.4 10.0 - 08/10/2020 [facility] 15.0 % 5:00 PM [facility] Platelet Count 169 150 - 450 08/10/2020 [facility] 10e9/L 5:00 PM [facility] Specimen Anatomical Collection Method Collection Time Receive d Time (Source) Location / / Volume Laterality Blood specimen 08/10/2020 4:00 PM 021 4:35 (specimen) PLANT PHYSIOLOGIST PM PLANT PHYSIOLOGIST Eden Moncada MD LAB - BLOOD ORDERABLES Performing Organization Address City/State/ZIP Code Phon e Number [facility] [address] [place] [address] [facility] [place] Partial thromboplastin time (08/10/2020 4:00 PM PLANT PHYSIOLOGIST) P athologist Signature PTT 31 22 - 37 sec 08/10/2020 U OF [place] 4:50 PM PLANT PHYSIOLOGIST [facility] Specimen Anatomical Collection Method Collection Time Receive d Time (Source) Location / / Volume Laterality Blood specimen 08/10/2020 4:00 PM 021 4:35 (specimen) PLANT PHYSIOLOGIST PM PLANT PHYSIOLOGIST Eden Moncada MD LAB - BLOOD ORDERABLES Performing Organization Address City/[facility]/ZIP Code Phon e Number U OF [facility] U OF [facility] INR (08/10/2020 4:00 PM PLANT PHYSIOLOGIST) P athologist Signature INR 1.14 0.86 - 1.14 08/10/2020 U OF M [place] 4:49 PM PLANT PHYSIOLOGIST [facility] Specimen Anatomical Collection Method Collection Time Receive d Time (Source) Location / / Volume Laterality Blood specimen 08/10/2020 4:00 PM 021 4:35 (specimen) PLANT PHYSIOLOGIST PM PLANT PHYSIOLOGIST Eden Moncada MD LAB - BLOOD ORDERABLES Performing Organization Address City/[facility]/ZIP Code Phon e Number U OF [facility] U OF [facility] Fibrinogen activity (08/10/2020 4:00 PM PLANT PHYSIOLOGIST) P athologist Signature Fibrinogen 350 200 - 420 08/10/2020 U OF [place] mg/dL 4:50 PM PLANT PHYSIOLOGIST [facility] Specimen Anatomical Collection Method Collection Time Receive d Time (Source) Location / / Volume Laterality Blood specimen 08/10/2020 4:00 PM 021 4:35 (specimen) PLANT PHYSIOLOGIST PM PLANT PHYSIOLOGIST Eden Moncada MD LAB - BLOOD ORDERABLES Performing Organization Address City/State/ZIP Code Phon e Number U OF [facility] U OF [facility] (ABNORMAL) TEG without Heparinase (08/10/2020 10:00 AM PLANT PHYSIOLOGIST) [facility] gist Method Time Signature R time until clot 3.2 (L) 5 - 10 08/10/2020 [facility] OF forms Minute 12:19 PM [facility] K time to spec clot 1.1 1 - 3 08/10/2020 UN[facility]IT Y OF strength Minute 12:19 PM [facility] Angle rate of clot 75.6 (H) 53 - 72 08/10/2020 [facility] OF strength Degrees 12:19 PM [facility] MA maximum clot 62.8 50 - 70 mm 08/10/2020 [facility] F strength 12:19 PM [facility] CI hypercoagulation 3.1 (H) 0.0 - 3.0 08/10/2020 [facility] OF index Ratio 12:19 PM [facility] G actual clot 8.4 4.5 - 11.0 08/10/2020 [facility] Kd/sc 12:19 PM [facility] LY30 lysis at 30 2.8 0 - 8 % 08/10/2020 [place] [facility] minutes 12:19 PM [facility] LY60 lysis at 60 6.3 0 - 15 % 08/10/2020 [place] [facility] minutes 12:19 PM [facility] Specimen Anatomical Collection Method Collection Time Receive d Time (Source) Location / / Volume Laterality Blood specimen 08/10/2020 10:00 (specimen) AM PLANT PHYSIOLOGIST 10:13 AM PLANT PHYSIOLOGIST Eden Moncada MD LAB - BLOOD ORDERABLES Performing Organization Address City/State/ZIP Code Phon e Number [facility] [address] [place] [address] [facility] (ABNORMAL) CBC with platelets (08/10/2020 10:00 AM PLANT PHYSIOLOGIST) [facility] Method Time Signature WBC 11.4 (H) 4.0 - 11.0 08/10/2020 [facility] OF 10e9/L 10:16 AM [facility] RBC Count 3.26 (L) 3.8 - 5.2 08/10/2020 [facility] OF 10e12/L 10:16 AM [facility] Hemoglobin 10.1 (L) 11.7 - 08/10/2020 [facility]ITY 15.7 g/dL 10:16 AM [facility] Hematocrit 29.5 (L) 35.0 - 08/10/2020 [place] 47.0 % 10:16 AM [facility] MCV 91 78 - 100 08/10/2020 [facility] OF fl 10:16 AM [facility] MCH 31.0 26.5 - 08/10/2020 [facility] 33.0 pg 10:16 AM [facility] MCHC 34.2 31.5 - 08/10/2020 [place] 36.5 g/dL 10:16 AM [facility] RDW 12.3 10.0 - 08/10/2020 [place] 15.0 % 10:16 AM [facility] Platelet Count 182 150 - 450 08/10/2020 [facility] OF 10e9/L 10:16 AM [facility] Specimen Anatomical Collection Method Collection Time Receive d Time (Source) Location / / Volume Laterality Blood specimen 08/10/2020 10:00 1 (specimen) AM PLANT PHYSIOLOGIST 10:11 AM PLANT PHYSIOLOGIST Eden Moncada MD LAB - BLOOD ORDERABLES Performing Organization Address City/State/ZIP Code Phon e Number [address] Partial thromboplastin time (08/10/2020 10:00 AM PLANT PHYSIOLOGIST) P athologist Signature PTT 30 22 - 37 sec 08/10/2020 [facility] 10:30 AM [facility] Specimen Anatomical Collection Method Collection Time Receive d Time (Source) Location / / Volume Laterality Blood specimen 08/10/2020 10:00 1 (specimen) AM PLANT PHYSIOLOGIST 10:11 AM PLANT PHYSIOLOGIST Eden Moncada MD LAB - BLOOD ORDERABLES Performing Organization Address City/[facility]/ZIP Code Phon e Number [address] (ABNORMAL) INR (08/10/2020 10:00 AM PLANT PHYSIOLOGIST) P athologist Signature INR 1.17 (H) 0.86 - 1.14 08/10/2020 [facility] OF 10:30 AM PLANT PHYSIOLOGIST [facility] Specimen Anatomical Collection Method Collection Time Receive d Time (Source) Location / / Volume Laterality Blood specimen 08/10/2020 10:00 1 (specimen) AM PLANT PHYSIOLOGIST 10:11 AM PLANT PHYSIOLOGIST Eden Moncada MD LAB - BLOOD ORDERABLES Performing Organization Address City/[facility]/ZIP Code Phon e Number [address] [address] [facility] [place] Fibrinogen activity (08/10/2020 10:00 AM PLANT PHYSIOLOGIST) P athologist Signature Fibrinogen 274 200 - 420 08/10/2020 [facility] OF mg/dL 10:30 AM [facility] Specimen Anatomical Collection Method Collection Time Receive d Time (Source) Location / / Volume Laterality Blood specimen 08/10/2020 10:00 1 (specimen) AM PLANT PHYSIOLOGIST 10:11 AM PLANT PHYSIOLOGIST Eden Moncada MD LAB - BLOOD ORDERABLES Performing Organization Address City/[facility] [[email or web address] Code Phon e Number [address] [address] [facility] [place] (ABNORMAL) CBC with platelets (08/10/2020 4:00 AM PLANT PHYSIOLOGIST) Patholo gist Method Time Signature WBC 13.8 (H) 4.0 - 11.0 08/10/2020 [facility] 10e9/L 4:35 AM [facility] RBC Count 3.32 (L) 3.8 - 5.2 08/10/2020 [facility] 10e12/L 4:35 AM [facility] Hemoglobin 10.1 (L) 11.7 - 08/10/2020 [facility] OF 15.7 g/dL 4:35 AM [facility] Hematocrit 29.9 (L) 35.0 - 08/10/2020 [facility] OF 47.0 % 4:35 AM [facility] MCV 90 78 - 100 08/10/2020 [facility] OF fl 4:35 AM [facility] MCH 30.4 26.5 - 08/10/2020 [facility] OF 33.0 pg 4:35 AM [facility] MCHC 33.8 31.5 - 08/10/2020 [facility] 36.5 g/dL 4:35 AM [facility] RDW 12.3 10.0 - 08/10/2020 [facility] 15.0 % 4:35 AM [facility] Platelet Count 202 150 - 450 08/10/2020 [facility] OF 10e9/L 4:35 AM [facility] Specimen Anatomical Collection Method Collection Time Receive d Time (Source) Location / / Volume Laterality Blood specimen 08/10/2020 4:00 AM 021 4:32 (specimen) PLANT PHYSIOLOGIST AM PLANT PHYSIOLOGIST Marina Becerril MD LAB - BLOOD ORDERABLES Performing Organization Address City/State/ZIP Code Phon e Number [place] [id number] [facility] [place] Fibrinogen activity (08/10/2020 4:00 AM PLANT PHYSIOLOGIST) athologist Signature Fibrinogen 238 200 - 420 08/10/2020 [facility] OF mg/dL 5:12 AM [facility] Specimen Anatomical Collection Method Collection Time Receive d Time (Source) Location / / Volume Laterality Blood specimen 08/10/2020 4:00 AM 021 4:32 (specimen) PLANT PHYSIOLOGIST AM PLANT PHYSIOLOGIST Marina Becerril MD LAB - BLOOD ORDERABLES Performing Organization Address City/[facility]/ZIP Code Phon e Number [address] [address] [facility] [place] (ABNORMAL) INR (08/10/2020 4:00 AM PLANT PHYSIOLOGIST) P athologist Signature INR 1.15 (H) 0.86 - 1.14 08/10/2020 [facility] OF 5:11 AM [facility] Specimen Anatomical Collection Method Collection Time Receive d Time (Source) Location / / Volume Laterality Blood specimen 08/10/2020 4:00 AM 021 4:32 (specimen) PLANT PHYSIOLOGIST AM PLANT PHYSIOLOGIST Marina Becerril MD LAB - BLOOD ORDERABLES Performing Organization Address City/State/ZIP Code Phon e Number [address] [address] [facility] [place] Partial thromboplastin time (08/10/2020 4:00 AM PLANT PHYSIOLOGIST) athologist Signature PTT 28 22 - 37 sec 08/10/2020 [facility] 5:11 AM [facility] Specimen Anatomical Collection Method Collection Time Receive d Time (Source) Location / / Volume Laterality Blood specimen 08/10/2020 4:00 AM 021 4:32 (specimen) PLANT PHYSIOLOGIST AM PLANT PHYSIOLOGIST Marina Becerril MD LAB - BLOOD ORDERABLES Performing Organization Address City/[facility] Phon e Number [address] [address] [facility] [place] (ABNORMAL) TEG without Heparinase (08/10/2020 4:00 AM PLANT PHYSIOLOGIST) Patholo gist Method Time Signature R time until clot 2.6 (L) 5 - 10 08/10/2020 [facility] Minute 6:17 AM [facility] K time to spec clot 1.0 1 - 3 08/10/2020 [facility] Y OF strength Minute 6:17 AM [facility] Angle rate of clot 76.9 (H) 53 - 72 08/10/2020 [facility] OF strength Degrees 6:17 AM [facility] MA maximum clot 64.1 50 - 70 mm 08/10/2020 [facility] O F strength 6:17 AM [facility] CI hypercoagulation 3.8 (H) 0.0 - 3.0 08/10/2020 [facility] Y OF index Ratio 6:17 AM [facility] G actual clot 8.9 4.5 - 11.0 08/10/2020 UN[facility]ITY [facility] Kd/sc 6:17 AM [facility] LY30 lysis at 30 2.4 0 - 8 % 08/10/2020 [facility] O F minutes 6:17 AM [facility] LY60 lysis at 60 5.7 0 - 15 % 08/10/2020 [facility] F minutes 6:17 AM [facility] Specimen Anatomical Collection Method Collection Time Receive d Time (Source) Location / / Volume Laterality Blood specimen 08/10/2020 4:00 AM 021 4:32 (specimen) PLANT PHYSIOLOGIST AM PLANT PHYSIOLOGIST Marina Becerril MD LAB - BLOOD ORDERABLES Performing Organization Address City/[facility] [[email or web address] Code Phon e Number [place] [phone] [facility] [place] Fibrinogen activity (08/09/2020 10:00 PM PLANT PHYSIOLOGIST) P athologist Signature Fibrinogen 206 200 - 420 08/09/2020 [facility] mg/dL 10:58 PM [facility] Specimen Anatomical Collection Method Collection Time Receive d Time (Source) Location / / Volume Laterality 08/09/2020 10:00 08/09/2020 PM PLANT PHYSIOLOGIST 10:11 PM PLANT PHYSIOLOGIST Jainne Leone MD LAB - BLOOD ORDERABLES Performing Organization Address City/[facility]/ZIP Code Phon e Number [address] [address] [facility] [place] Partial thromboplastin time (08/09/2020 10:00 PM PLANT PHYSIOLOGIST) athologist Signature PTT 26 22 - 37 sec 08/09/2020 [facility] 10:28 PM [facility] Specimen Anatomical Collection Method Collection Time Receive d Time (Source) Location / / Volume Laterality Blood specimen 08/09/2020 10:00 1 (specimen) PM PLANT PHYSIOLOGIST 10:11 PM PLANT PHYSIOLOGIST Janine Leone MD LAB - BLOOD ORDERABLES Performing Organization Address City/[facility]/ZIP Code Phon e Number [address] [address] [facility] [place] INR (08/09/2020 10:00 PM PLANT PHYSIOLOGIST) P athologist Signature INR 1.11 0.86 - 1.14 08/09/2020 [facility] 10:27 PM [facility] Specimen Anatomical Collection Method Collection Time Receive d Time (Source) Location / / Volume Laterality Blood specimen 08/09/2020 10:00 1 (specimen) PM PLANT PHYSIOLOGIST 10:11 PM PLANT PHYSIOLOGIST Janine Leone MD LAB - BLOOD ORDERABLES Performing Organization Address City/[facility]/ZIP Code Phon e Number [address] [address] [facility] [place] (ABNORMAL) TEG without Heparinase (08/09/2020 10:00 PM PLANT PHYSIOLOGIST) Patholo gist Method Time Signature R time until clot 3.1 (L) 5 - 10 08/10/2020 [facility] OF forms Minute 1:26 AM [facility] K time to spec clot 1.1 1 - 3 08/10/2020 [facility] Y OF strength Minute 1:26 AM [facility] Angle rate of clot 74.3 (H) 53 - 72 08/10/2020 [facility] OF strength Degrees 1:26 AM [facility] MA maximum clot 63.9 50 - 70 mm 08/10/2020 [facility]ITY O F strength 1:26 AM [facility] CI hypercoagulation 3.3 (H) 0.0 - 3.0 08/10/2020 [facility] Y OF index Ratio 1:26 AM [facility] G actual clot 8.8 4.5 - 11.0 08/10/2020 UN[facility]ITY [facility] Kd/sc 1:26 AM [facility] LY30 lysis at 30 2.1 0 - 8 % 08/10/2020 [facility] O F minutes 1:26 AM [facility] LY60 lysis at 60 5.5 0 - 15 % 08/10/2020 [place] [facility] minutes 1:26 AM [facility] Specimen Anatomical Collection Method Collection Time Receive d Time (Source) Location / / Volume Laterality Blood specimen 08/09/2020 10:00 1 (specimen) PM PLANT PHYSIOLOGIST 10:11 PM PLANT PHYSIOLOGIST Janine Leone MD LAB - BLOOD ORDERABLES Performing Organization Address City/State/ZIP Code Phon e Number [facility] [address] [place] [address] [facility] (ABNORMAL) CBC with platelets (08/09/2020 10:00 PM PLANT PHYSIOLOGIST) [facility] gist Method Time Signature WBC 12.1 (H) 4.0 - 11.0 08/09/2020 [facility] 10e9/L 10:14 PM [facility] RBC Count 3.38 (L) 3.8 - 5.2 08/09/2020 [facility] OF 10e12/L 10:14 PM [facility] Hemoglobin 10.4 (L) 11.7 - 08/09/2020 [facility] OF 15.7 g/dL 10:14 PM [facility] Hematocrit 30.3 (L) 35.0 - 08/09/2020 [facility] 47.0 % 10:14 PM [facility] MCV 90 78 - 100 08/09/2020 [facility] OF fl 10:14 PM [facility] MCH 30.8 26.5 - 08/09/2020 [facility] OF 33.0 pg 10:14 PM [facility] MCHC 34.3 31.5 - 08/09/2020 [facility] OF 36.5 g/dL 10:14 PM [facility] RDW 12.1 10.0 - 08/09/2020 [facility] 15.0 % 10:14 PM [facility] Platelet Count 211 150 - 450 08/09/2020 [facility] OF 10e9/L 10:14 PM [facility] Specimen Anatomical Collection Method Collection Time Receive d Time (Source) Location / / Volume Laterality Blood specimen 08/09/2020 10:00 1 (specimen) PM PLANT PHYSIOLOGIST 10:11 PM PLANT PHYSIOLOGIST Janine Leone MD LAB - BLOOD ORDERABLES Performing Organization Address City/State/ZIP Code Phon e Number [facility] [address] [place] [address] [facility] (ABNORMAL) TEG without Heparinase (08/09/2020 5:54 PM PLANT PHYSIOLOGIST) [facility] gist Method Time Signature R time until clot 3.2 (L) 5 - 10 08/09/2020 [facility] OF forms Minute 8:34 PM [facility] K time to spec clot 0.8 (L) 1 - 3 08/09/2020 [facility] OF strength Minute 8:34 PM [facility] Angle rate of clot 78.4 (H) 53 - 72 08/09/2020 [facility] OF strength Degrees 8:34 PM [facility] MA maximum clot 68.3 50 - 70 mm 08/09/2020 [facility] O F strength 8:34 PM [facility] CI hypercoagulation 4.1 (H) 0.0 - 3.0 08/09/2020 [facility] Y OF index Ratio 8:34 PM [facility] G actual clot 10.8 4.5 - 11.0 08/09/2020 [facility] OF strength Kd/sc 8:34 PM [facility] LY30 lysis at 30 1.2 0 - 8 % 08/09/2020 [place] [facility] minutes 8:34 PM [facility] LY60 lysis at 60 3.8 0 - 15 % 08/09/2020 [place] [facility] minutes 8:34 PM [facility] Specimen Anatomical Collection Method Collection Time Receive d Time (Source) Location / / Volume Laterality Blood specimen 08/09/2020 5:54 PM 021 5:59 (specimen) PLANT PHYSIOLOGIST PM PLANT PHYSIOLOGIST Janine Leone MD LAB - BLOOD ORDERABLES Performing Organization Address City/[facility] Phon e Number [address] [address] [facility] Fibrinogen activity (08/09/2020 5:45 PM PLANT PHYSIOLOGIST) P athologist Signature Fibrinogen 205 200 - 420 08/09/2020 [facility] mg/dL 6:23 PM [facility] Specimen Anatomical Collection Method Collection Time Receive d Time (Source) Location / / Volume Laterality Blood specimen 08/09/2020 5:45 PM 021 5:51 (specimen) PLANT PHYSIOLOGIST PM PLANT PHYSIOLOGIST Janine Leone MD LAB - BLOOD ORDERABLES Performing Organization Address City/[facility]/ZIP Code Phon e Number [address] [address] [facility] Partial thromboplastin time (08/09/2020 5:45 PM PLANT PHYSIOLOGIST) P athologist Signature PTT 26 22 - 37 sec 08/09/2020 [facility] 6:23 PM [facility] Specimen Anatomical Collection Method Collection Time Receive d Time (Source) Location / / Volume Laterality Blood specimen 08/09/2020 5:45 PM 021 5:51 (specimen) PLANT PHYSIOLOGIST PM PLANT PHYSIOLOGIST Janine Leone MD LAB - BLOOD ORDERABLES Performing Organization Address City/[facility]/ZIP Code Phon e Number [address] [address] [facility] INR (08/09/2020 5:45 PM PLANT PHYSIOLOGIST) P athologist Signature INR 1.14 0.86 - 1.14 08/09/2020 [facility] 6:23 PM [facility] Specimen Anatomical Collection Method Collection Time Receive d Time (Source) Location / / Volume Laterality Blood specimen 08/09/2020 5:45 PM 021 5:51 (specimen) PLANT PHYSIOLOGIST PM PLANT PHYSIOLOGIST Janine Leone MD LAB - BLOOD ORDERABLES Performing Organization Address City/[facility]/ZIP Code Phon e Number [facility] [address] [place] [address] [facility] (ABNORMAL) CBC with platelets (08/09/2020 5:45 PM PLANT PHYSIOLOGIST) [facility] gist Method Time Signature WBC 12.6 (H) 4.0 - 11.0 08/09/2020 [facility] 10e9/L 5:57 PM [facility] RBC Count 3.41 (L) 3.8 - 5.2 08/09/2020 [facility] 10e12/L 5:57 PM [facility] Hemoglobin 10.5 (L) 11.7 - 08/09/2020 [facility] 15.7 g/dL 5:57 PM [facility] Hematocrit 30.8 (L) 35.0 - 08/09/2020 [facility] OF 47.0 % 5:57 PM [facility] MCV 90 78 - 100 08/09/2020 [facility] OF fl 5:57 PM [facility] MCH 30.8 26.5 - 08/09/2020 [facility] 33.0 pg 5:57 PM [facility] MCHC 34.1 31.5 - 08/09/2020 [facility] OF 36.5 g/dL 5:57 PM [facility] RDW 12.1 10.0 - 08/09/2020 [facility] 15.0 % 5:57 PM [facility] Platelet Count 203 150 - 450 08/09/2020 [facility] 10e9/L 5:57 PM [facility] Specimen Anatomical Collection Method Collection Time Receive d Time (Source) Location / / Volume Laterality Blood specimen 08/09/2020 5:45 PM 021 5:51 (specimen) PLANT PHYSIOLOGIST PM PLANT PHYSIOLOGIST Janine Leone MD LAB - BLOOD ORDERABLES Performing Organization Address City/State/ZIP Code Phon e Number [facility] [address] [place] [address] [facility] Methicillin Resist/Sens S. aureus PCR (08/09/2020 2:10 PM PLANT PHYSIOLOGIST) Patholo gist Method Time Signature Specimen Nares 08/09/2020 [facility] Description 2:39 PM [facility] Methicillin Negative NEG^Negat 08/09/2020 [facility]ITY Resist/Sens S. mindy 5:53 PM [facility] aureus PCR [facility] Comment: MRSA Negative: SA Negative ??MRSA and St aphylococcus aureus target DNA not detected, presumed negative for MRSA and SA colonization or the number of bacteria present may be below the limit of detection for the assay. FDA approved assay performed using [employer](R) real-time PCR. Specimen (Source) Anatomical Collection Method Collection Time Re ceived Time Location / / Volume Laterality Nasal structure SWAB FROM NASAL 08/09/2020 2:10 2020 2:45 (body structure) SINUS / Unknown PM PLANT PHYSIOLOGIST PM PLANT PHYSIOLOGIST Janine Leone MD LAB - MICRO GENERAL ORDERABL ES Performing Organization Address City/[facility]/ZIP Code Phon e Number [facility] [address] [place], [place] [id number] [place] [address] U OF [facility] Iron and iron binding capacity (08/09/2020 1:45 PM PLANT PHYSIOLOGIST) P athologist Signature Iron 74 35 - 180 08/10/2020 [facility] ug/dL 12:34 PM [facility] Iron Binding 306 240 - 430 08/10/2020 [facility] Cap ug/dL 12:34 PM [facility] Iron Saturation 24 15 - 46 % 08/10/2020 [facility] Index 12:34 PM [facility] Specimen Anatomical Collection Method Collection Time Receive d Time (Source) Location / / Volume Laterality 08/09/2020 1:45 PM 2:04 PLANT PHYSIOLOGIST PM PLANT PHYSIOLOGIST Janine Leone MD LAB - BLOOD ORDERABLES Performing Organization Address City/State/ZIP Code Phon e Number [facility] OF [facility] U OF [facility] (ABNORMAL) TEG without Heparinase (08/09/2020 1:45 PM PLANT PHYSIOLOGIST) Patholo gist Method Time Signature R time until clot 3.7 (L) 5 - 10 08/09/2020 [facility] OF forms Minute 6:32 PM [facility] K time to spec clot 1.2 1 - 3 08/09/2020 [facility] Y OF strength Minute 6:32 PM [facility] Angle rate of clot 72.4 (H) 53 - 72 08/09/2020 [facility] OF strength Degrees 6:32 PM [facility] MA maximum clot 62.9 50 - 70 mm 08/09/2020 [facility] F strength 6:32 PM [facility] CI hypercoagulation 2.5 0.0 - 3.0 08/09/2020 [facility] OF index Ratio 6:32 PM [facility] G actual clot 8.5 4.5 - 11.0 08/09/2020 [facility] Kd/sc 6:32 PM [facility] LY30 lysis at 30 1.8 0 - 8 % 08/09/2020 [facility] minutes 6:32 PM [facility] LY60 lysis at 60 4.9 0 - 15 % 08/09/2020 [facility] minutes 6:32 PM [facility] Specimen Anatomical Collection Method Collection Time Receive d Time (Source) Location / / Volume Laterality Blood specimen 08/09/2020 1:45 PM 021 2:04 (specimen) PLANT PHYSIOLOGIST PM PLANT PHYSIOLOGIST Janine Leone MD LAB - BLOOD ORDERABLES Performing Organization Address City/State/ZIP Code Phon e Number [facility] [address] [place] [address] [facility] (ABNORMAL) Fibrinogen activity (08/09/2020 1:45 PM PLANT PHYSIOLOGIST) P athologist Signature Fibrinogen 174 (L) 200 - 420 08/09/2020 [facility] mg/dL 2:21 PM PLANT PHYSIOLOGIST [facility] Specimen Anatomical Collection Method Collection Time Receive d Time (Source) Location / / Volume Laterality Blood specimen 08/09/2020 1:45 PM 021 2:04 (specimen) PLANT PHYSIOLOGIST PM PLANT PHYSIOLOGIST Janine Leone MD LAB - BLOOD ORDERABLES Performing Organization Address City/State/ZIP Code Phon e Number [facility] OF [facility] U OF [facility] INR (08/09/2020 1:45 PM PLANT PHYSIOLOGIST) P athologist Signature INR 1.14 0.86 - 1.14 08/09/2020 U OF [facility] 2:20 PM [facility] Specimen Anatomical Collection Method Collection Time Receive d Time (Source) Location / / Volume Laterality Blood specimen 08/09/2020 1:45 PM 021 2:04 (specimen) PLANT PHYSIOLOGIST PM PLANT PHYSIOLOGIST Janine Leone MD LAB - BLOOD ORDERABLES Performing Organization Address City/[facility]/ZIP Code Phon e Number U OF [facility] U OF [facility] Partial thromboplastin time (08/09/2020 1:45 PM PLANT PHYSIOLOGIST) athologist Signature PTT 28 22 - 37 sec 08/09/2020 U [facility] 2:21 PM [facility] Specimen Anatomical Collection Method Collection Time Receive d Time (Source) Location / / Volume Laterality Blood specimen 08/09/2020 1:45 PM 021 2:04 (specimen) PLANT PHYSIOLOGIST PM PLANT PHYSIOLOGIST Janine Leone MD LAB - BLOOD ORDERABLES Performing Organization Address City/[facility]/ZIP Code Phon e Number U OF [facility] U OF [facility] (ABNORMAL) CBC with platelets (08/09/2020 1:45 PM PLANT PHYSIOLOGIST) Patholo gist Method Time Signature WBC 11.6 (H) 4.0 - 11.0 08/09/2020 [facility] OF 10e9/L 2:08 PM [facility] RBC Count 3.47 (L) 3.8 - 5.2 08/09/2020 [facility] OF 10e12/L 2:08 PM [facility] Hemoglobin 10.6 (L) 11.7 - 08/09/2020 [facility]ITY 15.7 g/dL 2:08 PM [facility] Hematocrit 31.4 (L) 35.0 - 08/09/2020 [facility] 47.0 % 2:08 PM [facility] MCV 91 78 - 100 08/09/2020 [facility] OF fl 2:08 PM [facility] MCH 30.5 26.5 - 08/09/2020 [facility] 33.0 pg 2:08 PM [facility] MCHC 33.8 31.5 - 08/09/2020 [facility] OF 36.5 g/dL 2:08 PM [facility] RDW 12.0 10.0 - 08/09/2020 [facility] 15.0 % 2:08 PM [facility] Platelet Count 238 150 - 450 08/09/2020 [facility] OF 10e9/L 2:08 PM [facility] Specimen Anatomical Collection Method Collection Time Receive d Time (Source) Location / / Volume Laterality Blood specimen 08/09/2020 1:45 PM 021 2:04 (specimen) PLANT PHYSIOLOGIST PM PLANT PHYSIOLOGIST Janine Leone MD LAB - BLOOD ORDERABLES Performing Organization Address City/State/ZIP Code Phon e Number [facility] [address] [place] [address] [facility] Prealbumin (08/09/2020 1:45 PM PLANT PHYSIOLOGIST) P athologist Signature Prealbumin 24 15 - 45 08/09/2020 [facility] mg/dL 2:27 PM [facility] Specimen Anatomical Collection Method Collection Time Receive d Time (Source) Location / / Volume Laterality Blood specimen 08/09/2020 1:45 PM 021 2:04 (specimen) PLANT PHYSIOLOGIST PM PLANT PHYSIOLOGIST Janine Leone MD LAB - BLOOD ORDERABLES Performing Organization Address City/State/ZIP Code Phon e Number U [facility] Magnesium (08/09/2020 1:45 PM PLANT PHYSIOLOGIST) P athologist Signature Magnesium 1.6 1.6 - 2.3 08/09/2020 [facility] mg/dL 2:24 PM [facility] Specimen Anatomical Collection Method Collection Time Receive d Time (Source) Location / / Volume Laterality Blood specimen 08/09/2020 1:45 PM 021 2:04 (specimen) PLANT PHYSIOLOGIST PM PLANT PHYSIOLOGIST Janine Leone MD LAB - BLOOD ORDERABLES Performing Organization Address City/State/ZIP Code Phon e Number U [facility] U OF M [facility] Calcium ionized whole blood (08/09/2020 1:45 PM PLANT PHYSIOLOGIST) athologist Signature Calcium 4.4 4.4 - 5.2 08/09/2020 [facility] OF Ionized Whole mg/dL 2:08 PM [facility] Specimen Anatomical Collection Method Collection Time Receive d Time (Source) Location / / Volume Laterality Blood specimen 08/09/2020 1:45 PM 021 2:04 (specimen) PLANT PHYSIOLOGIST PM PLANT PHYSIOLOGIST Janine Leone MD LAB - BLOOD ORDERABLES Performing Organization Address City/State/ZIP Code Phon e Number [facility] [address] [place] [address] [facility] (ABNORMAL) Renal Panel (08/09/2020 1:45 PM PLANT PHYSIOLOGIST) athologist Signature Sodium 139 133 - 144 08/09/2020 U OF M mmol/L 2:18 PM [facility] Potassium 3.7 3.4 - 5.3 08/09/2020 U OF M mmol/L 2:18 PM [facility] Chloride 106 96 - 110 08/09/2020 U OF M mmol/L 2:18 PM [facility] Carbon Dioxide 25 20 - 32 08/09/2020 [facility] M mmol/L 2:24 PM [facility] Anion Gap 8 3 - 14 08/09/2020 [facility] M mmol/L 2:24 PM [facility] Glucose 164 (H) 70 - 99 08/09/2020 U OF M mg/dL 2:24 PM [facility] Urea Nitrogen 12 7 - 30 08/09/2020 [facility] M mg/dL 2:24 PM [facility] Creatinine 0.66 0.50 - 08/09/2020 U OF M 1.00 mg/dL 2:24 PM [facility] GFR Estimate >90 >60 08/09/2020 U OF M mL/min/{1. 2:24 PM [facility] 73_m2} [facility] Comment: Non GFR Calc Starting 07/22/2018, serum creatinine ba sed estimated GFR (eGFR) will be calculated using the Chronic Kidney Dise banner Epidemiology Collaboration (CKD-EPI) equation. GFR Estimate If >90 >60 mL/min/{1.73_m2} 08/09/2020 2: 24 PM U OF [facility] Comment: GFR Calc Starting 07/22/2018, serum creatinine ba sed estimated GFR (eGFR) will be calculated using the Chronic Kidney Dise banner Epidemiology Collaboration (CKD-EPI) equation. Calcium 7.9 (L) 8.5 - 10.1 mg/dL 08/09/2020 2:24 PM PLANT PHYSIOLOGIST U OF [facility] Phosphorus 3.0 2.5 - 4.5 mg/dL 08/09/2020 2:24 PM PLANT PHYSIOLOGIST [facility] Albumin 3.5 3.4 - 5.0 g/dL 08/09/2020 2:24 PM PLANT PHYSIOLOGIST [facility] Specimen Anatomical Collection Method Collection Time Receive d Time (Source) Location / / Volume Laterality Blood specimen 08/09/2020 1:45 PM 021 2:04 (specimen) PLANT PHYSIOLOGIST PM PLANT PHYSIOLOGIST Janine Leone MD LAB - BLOOD ORDERABLES Performing Organization Address City/[facility]/ZIP Code Phon e Number U OF [facility] U OF [facility] XR Surgery ELIER L/T 5 Min Fluoro (08/09/2020 12:05 PM PLANT PHYSIOLOGIST) Specimen (Source) Anatomical Location Collection Method / Collectio n Time Received Time / Laterality Volume Narrative [facility] - 08/09/2020 12:06 PM PLANT PHYSIOLOGIST This exam was marked as non-reportable because it will not be read by a radiologist or a [place] non-radiologis t provider. Catina Ha MD IMG DIAGNOSTIC IMAGING ORDER DANO Performing Organization Address City/State/ZIP Code Phon e Number [facility] (ABNORMAL) TEG without Heparinase (08/09/2020 11:28 AM PLANT PHYSIOLOGIST) [facility] Method Time Signature R time until clot 3.1 (L) 5 - 10 08/09/2020 UN[facility]ITY [facility] Minute 1:37 PM [facility] K time to spec clot 0.8 (L) 1 - 3 08/09/2020 UN[facility]ERSIT Y OF strength Minute 1:37 PM [facility] Angle rate of clot 76.1 (H) 53 - 72 08/09/2020 [facility] OF strength Degrees 1:37 PM [facility] MA maximum clot 68.3 50 - 70 mm 08/09/2020 UN[facility]ITY O F strength 1:37 PM [facility] CI hypercoagulation 4.0 (H) 0.0 - 3.0 08/09/2020 [facility] Y OF index Ratio 1:37 PM [facility] G actual clot 10.8 4.5 - 11.0 08/09/2020 UN[facility]ERSITY [facility] Kd/sc 1:37 PM [facility] LY30 lysis at 30 0.9 0 - 8 % 08/09/2020 UN[facility]ITY O F minutes 1:37 PM [facility] LY60 lysis at 60 3.4 0 - 15 % 08/09/2020 [facility]ITY O F minutes 1:37 PM [facility] Specimen Anatomical Collection Method Collection Time Receive d Time (Source) Location / / Volume Laterality 08/09/2020 11:28 08/09/2020 AM PLANT PHYSIOLOGIST 11:49 AM PLANT PHYSIOLOGIST Catina Ha MD LAB - BLOOD ORDERABLES Performing Organization Address City/[facility]/ZIP Code Phon e Number [address] Partial thromboplastin time (08/09/2020 11:28 AM PLANT PHYSIOLOGIST) P athologist Signature PTT 26 22 - 37 sec 08/09/2020 [facility] 12:06 PM [facility] Specimen Anatomical Collection Method Collection Time Receive d Time (Source) Location / / Volume Laterality 08/09/2020 11:28 08/09/2020 AM PLANT PHYSIOLOGIST 11:49 AM PLANT PHYSIOLOGIST Catina Ha MD LAB - BLOOD ORDERABLES Performing Organization Address City/State/ZIP Code Phon e Number [address] INR (08/09/2020 11:28 AM PLANT PHYSIOLOGIST) P athologist Signature INR 1.14 0.86 - 1.14 08/09/2020 [facility] 12:06 PM [facility] Specimen Anatomical Collection Method Collection Time Receive d Time (Source) Location / / Volume Laterality 08/09/2020 11:28 08/09/2020 AM PLANT PHYSIOLOGIST 11:49 AM PLANT PHYSIOLOGIST Catina Ha MD LAB - BLOOD ORDERABLES Performing Organization Address City/[facility]/ZIP Code Phon e Number [place] [id number] [facility] (ABNORMAL) Fibrinogen activity (08/09/2020 11:28 AM PLANT PHYSIOLOGIST) P athologist Signature Fibrinogen 178 (L) 200 - 420 08/09/2020 UN[facility]ITY OF mg/dL 12:06 PM [facility] Specimen Anatomical Collection Method Collection Time Receive d Time (Source) Location / / Volume Laterality 08/09/2020 11:28 08/09/2020 AM PLANT PHYSIOLOGIST 11:49 AM PLANT PHYSIOLOGIST Catina Ha MD LAB - BLOOD ORDERABLES Performing Organization Address City/[facility]/ZIP Code Phon e Number [address] [address] [facility] (ABNORMAL) CBC with platelets (08/09/2020 11:28 AM PLANT PHYSIOLOGIST) [facility] Method Time Signature WBC 17.3 (H) 4.0 - 11.0 08/09/2020 [facility] OF 10e9/L 11:52 AM [facility] RBC Count 3.60 (L) 3.8 - 5.2 08/09/2020 [facility] OF 10e12/L 11:52 AM [facility] Hemoglobin 11.0 (L) 11.7 - 08/09/2020 [facility] OF 15.7 g/dL 11:52 AM [facility] Hematocrit 32.7 (L) 35.0 - 08/09/2020 [facility] OF 47.0 % 11:52 AM [facility] MCV 91 78 - 100 08/09/2020 UN[facility]ERSITY fl 11:52 AM [facility] MCH 30.6 26.5 - 08/09/2020 [facility] OF 33.0 pg 11:52 AM [facility] MCHC 33.6 31.5 - 08/09/2020 [facility] OF 36.5 g/dL 11:52 AM [facility] RDW 11.9 10.0 - 08/09/2020 [facility] OF 15.0 % 11:52 AM [facility] Platelet Count 324 150 - 450 08/09/2020 [facility] OF 10e9/L 11:52 AM [facility] Specimen Anatomical Collection Method Collection Time Receive d Time (Source) Location / / Volume Laterality 08/09/2020 11:28 08/09/2020 AM PLANT PHYSIOLOGIST 11:49 AM PLANT PHYSIOLOGIST Catina Ha MD LAB - BLOOD ORDERABLES Performing Organization Address City/State/ZIP Code Phon e Number [facility] [address] [place] [address] [facility] (ABNORMAL) TEG without Heparinase (08/09/2020 9:50 AM PLANT PHYSIOLOGIST) [facility] Method Time Signature R time until clot 3.3 (L) 5 - 10 08/09/2020 UN[facility]ERSITY OF forms Minute 11:45 AM [facility] K time to spec clot 0.9 (L) 1 - 3 08/09/2020 UNIVERSIT Y OF strength Minute 11:45 AM [facility] Angle rate of clot 76.3 (H) 53 - 72 08/09/2020 UN[facility]ERSITY OF strength Degrees 11:45 AM [facility] MA maximum clot 70.5 (H) 50 - 70 mm 08/09/2020 UN[facility]ERSITY O F strength 11:45 AM [facility] CI hypercoagulation 4.1 (H) 0.0 - 3.0 08/09/2020 UNIVERSIT Y OF index Ratio 11:45 AM [facility] G actual clot 12.0 (H) 4.5 - 11.0 08/09/2020 UN[facility]ERSITY OF strength Kd/sc 11:45 AM [facility] LY30 lysis at 30 0.9 0 - 8 % 08/09/2020 UN[facility]ERSITY O F minutes 11:45 AM [facility] LY60 lysis at 60 3.5 0 - 15 % 08/09/2020 UN[facility]ERSITY O F minutes 11:45 AM [facility] Specimen Anatomical Collection Method Collection Time Receive d Time (Source) Location / / Volume Laterality 08/09/2020 9:50 AM PLANT PHYSIOLOGIST 10:01 AM PLANT PHYSIOLOGIST Catina Ha MD LAB - BLOOD ORDERABLES Performing Organization Address City/State/ZIP Code Phon e Number [address] [address] [facility] Partial thromboplastin time (08/09/2020 9:50 AM PLANT PHYSIOLOGIST) P athologist Signature PTT 26 22 - 37 sec 08/09/2020 [facility] 10:18 AM [facility] Specimen Anatomical Collection Method Collection Time Receive d Time (Source) Location / / Volume Laterality 08/09/2020 9:50 AM PLANT PHYSIOLOGIST 10:01 AM PLANT PHYSIOLOGIST Catina Ha MD LAB - BLOOD ORDERABLES Performing Organization Address City/State/ZIP Code Phon e Number [address] [address] [facility] INR (08/09/2020 9:50 AM PLANT PHYSIOLOGIST) P athologist Signature INR 1.06 0.86 - 1.14 08/09/2020 [facility] 10:27 AM [facility] Specimen Anatomical Collection Method Collection Time Receive d Time (Source) Location / / Volume Laterality 08/09/2020 9:50 AM PLANT PHYSIOLOGIST 10:01 AM PLANT PHYSIOLOGIST Catina Ha MD LAB - BLOOD ORDERABLES Performing Organization Address City/State/ZIP Code Phon e Number [address] [address] [facility] Fibrinogen activity (08/09/2020 9:50 AM PLANT PHYSIOLOGIST) P athologist Signature Fibrinogen 202 200 - 420 08/09/2020 UNIVERSITY OF mg/dL 10:27 AM [facility] Specimen Anatomical Collection Method Collection Time Receive d Time (Source) Location / / Volume Laterality 08/09/2020 9:50 AM PLANT PHYSIOLOGIST 10:01 AM PLANT PHYSIOLOGIST Catina Ha MD LAB - BLOOD ORDERABLES Performing Organization Address City/State/ZIP Code Phon e Number [address] [address] [facility] (ABNORMAL) Arterial Panel (08/09/2020 9:50 AM [facility] Method Time Signature pH Arterial 7.45 7.35 - 08/09/2020 UN[facility]ERSITY OF 7.45 pH 10:05 AM [facility] pCO2 Arterial 33 (L) 35 - 45 mm 08/09/2020 [facility]ITY OF Hg 10:05 AM [facility] pO2 Arterial 183 (H) 80 - 105 08/09/2020 [facility]ITY OF mm Hg 10:05 AM [facility] Bicarbonate 23 21 - 28 08/09/2020 UN[facility]ERSITY OF Arterial mmol/L 10:05 AM [facility] Base Deficit Art 0.6 mmol/L 08/09/2020 UN[facility]ERSITY O F 10:05 AM [facility] Comment: Reference range: -9.0 to 1.8 FIO2 STAT 08/09/2020 10:02 AM [facility] Comment: OR 17 FIO2 34% Sodium 138 133 - 144 08/09/2020 10:05 AM [facility] mmol/L [facility] Potassium 3.5 3.4 - 5.3 08/09/2020 10:05 AM [facility] HOSPITAL mmol/L [facility] Hemoglobin 11.5 (L) 11.7 - 15.7 08/09/2020 10:05 AM [facility] g/dL [facility] Glucose 149 (H) 70 - 99 mg/dL 08/09/2020 10:05 AM [facility] Calcium Ionized 4.3 (L) 4.4 - 5.2 mg/dL 08/09/2020 10:05 A M [facility] Whole Blood [facility] BANK Specimen Anatomical Collection Method Collection Time Receive d Time (Source) Location / / Volume Laterality 08/09/2020 9:50 AM PLANT PHYSIOLOGIST 10:01 AM [facility] Catina Ha MD LAB - BLOOD ORDERABLES Performing Organization Address City/State/ZIP Code Phon e Number [facility] [address] [place] [address] [facility] : Laboratory Miscellaneous Order (08/09/2020 9:00 AM [facility]) Component Value Ref Test Analysis Performed At [facility] Range Method Time Signature Miscellaneous BIOPSY IN 08/09/2020 U OF M Test HISTOLOGY. TEST 2:[address] [facility] REQUEST BEING CHILDRENS INVESTIGATED BY [facility] STEFANIE ECHEVARRIA MD. Comment: SLC 1430 08.09.20 Specimen (Source) Anatomical Collection Method Collection Time Re ceived Time Location / / Volume Laterality Tissue specimen TOPOGRAPHY UNKNOWN 08/09/2020 9:25 AM (specimen) / Unknown PLANT PHYSIOLOGIST Comment: Skin- Freeze in liquid Nitrogen for Future Fibroblast Culture for Genetic Testing Specimen placed in dry ice until liquid nitrogen available - [employer] will need to be contacted (unable to reach from [place]) Catina Ha MD LAB - BLOOD ORDERABLES Performing Organization Address City/State/ZIP Code Phon e Number [facility] OF M [facility] TEG without Heparinase (08/09/2020 8:45 AM PLANT PHYSIOLOGIST) [facility] gist Method Time Signature R time until clot 5.4 5 - 10 08/09/2020 [facility] forms Minute 10:41 AM [facility] K time to spec clot 1.5 1 - 3 08/09/2020 [facility] Y OF strength Minute 10:41 AM [facility] Angle rate of clot 68.7 53 - 72 08/09/2020 [facility] strength Degrees 10:41 AM [facility] MA maximum clot 63.1 50 - 70 mm 08/09/2020 [facility] O F strength 10:41 AM [facility] CI hypercoagulation 1.1 0.0 - 3.0 08/09/2020 [facility] Y OF index Ratio 10:41 AM [facility] G actual clot 8.6 4.5 - 11.0 08/09/2020 [facility] strength Kd/sc 10:41 AM [facility] LY30 lysis at 30 1.0 0 - 8 % 08/09/2020 [facility] O F minutes 10:41 AM [facility] LY60 lysis at 60 4.2 0 - 15 % 08/09/2020 [facility] O F minutes 10:41 AM [facility] Specimen Anatomical Collection Method Collection Time Receive d Time (Source) Location / / Volume Laterality 08/09/2020 8:45 AM 9:01 PLANT PHYSIOLOGIST AM PLANT PHYSIOLOGIST Catina Ha MD LAB - BLOOD ORDERABLES Performing Organization Address City/State/ZIP Code Phon e Number [address] [address] [facility] Partial thromboplastin time (08/09/2020 8:45 AM PLANT PHYSIOLOGIST) P athologist Signature PTT 31 22 - 37 sec 08/09/2020 [facility] 9:15 AM [facility] Specimen Anatomical Collection Method Collection Time Receive d Time (Source) Location / / Volume Laterality 08/09/2020 8:45 AM 9:01 PLANT PHYSIOLOGIST AM PLANT PHYSIOLOGIST Catina Ha MD LAB - BLOOD ORDERABLES Performing Organization Address City/[facility]/ZIP Code Phon e Number [address] [address] [facility] INR (08/09/2020 8:45 AM PLANT PHYSIOLOGIST) P athologist Signature INR 1.07 0.86 - 1.14 08/09/2020 [facility] 9:14 AM [facility] Specimen Anatomical Collection Method Collection Time Receive d Time (Source) Location / / Volume Laterality 08/09/2020 8:45 AM 9:01 PLANT PHYSIOLOGIST AM PLANT PHYSIOLOGIST Catina Ha MD LAB - BLOOD ORDERABLES Performing Organization Address City/State/ZIP Code Phon e Number [address] [address] [facility] Fibrinogen activity (08/09/2020 8:45 AM PLANT PHYSIOLOGIST) P athologist Signature Fibrinogen 210 200 - 420 08/09/2020 [facility] mg/dL 9:15 AM [facility] Specimen Anatomical Collection Method Collection Time Receive d Time (Source) Location / / Volume Laterality 08/09/2020 8:45 AM 9:01 PLANT PHYSIOLOGIST AM PLANT PHYSIOLOGIST Catina Ha MD LAB - BLOOD ORDERABLES Performing Organization Address City/State/ZIP Code Phon e Number [address] [address] [facility] (ABNORMAL) CBC with platelets (08/09/2020 8:45 AM PLANT PHYSIOLOGIST) Patholo gist Method Time Signature WBC 6.5 4.0 - 11.0 08/09/2020 [facility] 10e9/L 9:06 AM [facility] RBC Count 3.70 (L) 3.8 - 5.2 08/09/2020 [facility] 10e12/L 9:06 AM [facility] Hemoglobin 11.2 (L) 11.7 - 08/09/2020 [facility] 15.7 g/dL 9:06 AM [facility] Hematocrit 33.1 (L) 35.0 - 08/09/2020 [facility] 47.0 % 9:06 AM [facility] MCV 90 78 - 100 08/09/2020 [facility] fl 9:06 AM [facility] MCH 30.3 26.5 - 08/09/2020 [facility] 33.0 pg 9:06 AM [facility] MCHC 33.8 31.5 - 08/09/2020 [facility] 36.5 g/dL 9:06 AM [facility] RDW 11.9 10.0 - 08/09/2020 [facility] 15.0 % 9:06 AM [facility] Platelet Count 285 150 - 450 08/09/2020 [facility] 10e9/L 9:06 AM [facility] Specimen Anatomical Collection Method Collection Time Receive d Time (Source) Location / / Volume Laterality 08/09/2020 8:45 AM 9:01 PLANT PHYSIOLOGIST AM PLANT PHYSIOLOGIST Catina Ha MD LAB - BLOOD ORDERABLES Performing Organization Address City/State/ZIP Code Phon e Number [facility] [address] [place] [address] [facility] (ABNORMAL) Arterial Panel (08/09/2020 8:45 AM PLANT PHYSIOLOGIST) [facility] Method Time Signature pH Arterial 7.47 (H) 7.35 - 08/09/2020 [facility] 7.45 pH 9:07 AM [facility] pCO2 Arterial 35 35 - 45 08/09/2020 [facility] mm Hg 9:07 AM [facility] pO2 Arterial 305 (H) 80 - 105 08/09/2020 [facility] mm Hg 9:07 AM [facility] Bicarbonate 25 21 - 28 08/09/2020 [facility] mmol/L 9:07 AM [facility] Base Excess Art 1.6 mmol/L 08/09/2020 [facility]ITY 9:07 AM [facility] Comment: Reference range: -9.0 to 1.8 FIO2 STAT 08/09/2020 9:02 AM [facility] ITY [facility] Comment: FIO2 100% OR17 Sodium 139 133 - 144 08/09/2020 9:07 AM [facility] mmol/L [facility] Potassium 3.4 3.4 - 5.3 08/09/2020 9:07 AM [facility] mmol/L [facility] Hemoglobin 11.2 (L) 11.7 - 15.7 08/09/2020 9:07 AM [facility] g/dL [facility] Glucose 126 (H) 70 - 99 mg/dL 08/09/2020 9:07 AM [facility] ITY [facility] Calcium Ionized 4.5 4.4 - 5.2 mg/dL 08/09/2020 9:07 AM [facility] Whole Blood [facility] Specimen Anatomical Collection Method Collection Time Receive d Time (Source) Location / / Volume Laterality 08/09/2020 8:45 AM 9:01 PLANT PHYSIOLOGIST AM [facility] Catina Ha MD LAB - BLOOD ORDERABLES Performing Organization Address City/State/ZIP Code Phon e Number [facility] [address] [place] [address] [facility] Blood component (08/09/2020 7:30 AM [facility]) [facility] Method Time Signature Unit Number [id number] 08/09/2020 [facility] 8:57 AM [facility] Blood Red Blood 08/09/2020 [facility] Component Cells 8:57 AM [facility] Leukocyte [facility] BANK Division 00 08/09/2020 [facility] Number 8:57 AM [facility] Status of No longer 08/13/2020 [facility] Unit available 3:00 AM [facility] 08/13/2020 HOSPITAL 0300 Blood Product [id number] 08/09/2020 [facility] Code 8:57 AM [facility] Unit Status [facility] Specimen Anatomical Collection Method Collection Time Receive d Time (Source) Location / / Volume Laterality 08/09/2020 7:30 AM 7:41 PLANT PHYSIOLOGIST AM PLANT PHYSIOLOGIST Monica Deleon MD LABORATORY Performing Organization Address City/State/ZIP Code Phon e Number [facility] [address] [place], [place] [address] [address], [facility] [address] [place], [place] [address], [facility] [phone] Blood component (08/09/2020 7:30 AM PLANT PHYSIOLOGIST) [facility] gist Method Time Signature Unit Number [id number] 08/09/2020 [facility] 8:57 AM PLANT PHYSIOLOGIST [facility] Blood Red Blood 08/09/2020 [facility] Component Cells 8:57 AM PLANT PHYSIOLOGIST [facility] BANK Division 00 08/09/2020 [facility] Number 8:57 AM PLANT PHYSIOLOGIST [facility] Status of No longer 08/13/2020 [facility] Unit available 3:00 AM [facility] 08/13/2020 HOSPITAL 0300 Blood Product [id number] 08/09/2020 [facility] Code 8:57 AM [facility] Unit Status [facility] Specimen Anatomical Collection Method Collection Time Receive d Time (Source) Location / / Volume Laterality 08/09/2020 7:30 AM 7:41 PLANT PHYSIOLOGIST AM PLANT PHYSIOLOGIST Monica Deleon MD LABORATORY Performing Organization Address City/State/ZIP Code Phon e Number M [facility] [address], [place] [address] [place] [id number], [facility] [address] [place], [place] [address], [facility] [phone] Glucose (08/09/2020 7:30 AM PLANT PHYSIOLOGIST) P athologist Signature Glucose 75 70 - 99 08/09/2020 [facility] mg/dL 8:01 AM [facility] Specimen Anatomical Collection Method Collection Time Receive d Time (Source) Location / / Volume Laterality Blood specimen 08/09/2020 7:30 AM 021 7:43 (specimen) PLANT PHYSIOLOGIST AM PLANT PHYSIOLOGIST Catina Ha MD LAB - BLOOD ORDERABLES Performing Organization Address City/[facility]/ZIP Code Phon e Number [address] [address] [facility] ABO/Rh type and screen (08/09/2020 7:30 AM PLANT PHYSIOLOGIST) Patholo gist Method Time Signature Units Ordered 2 08/09/2020 [facility] 8:57 AM [facility] ABO O 08/09/2020 [facility] 8:22 AM [facility] RH(D) Pos [facility] Antibody Neg 08/09/2020 [facility] Screen 8:22 AM [facility] Test Valid [facility] 08/09/2020 [facility] 7:51 AM [facility] BANK w Hospital Specimen 08/12/2020 08/09/2020 [facility] Expires 7:51 AM [facility] Crossmatch Red Blood 08/09/2020 [facility] Cells 8:57 AM [facility] Specimen Anatomical Collection Method Collection Time Receive d Time (Source) Location / / Volume Laterality Blood specimen 08/09/2020 7:30 AM 021 7:41 (specimen) PLANT PHYSIOLOGIST AM PLANT PHYSIOLOGIST Monica Deleon MD LAB - BLOOD BANK TEST ORDER Performing Organization Address City/[facility]/ZIP Code Phon e Number [address] [address] [facility] HCG qualitative urine (08/09/2020 7:00 AM PLANT PHYSIOLOGIST) Analysis Performed At Patho logist Time Signature HCG Qual Urine Negative NEG^Negati 08/09/2020 UN[facility]ITY [facility] 7:23 AM [facility] Comment: This test is for screening purposes. ??R esults should be interpreted along with the clinical picture. ??Confirmation te sting is available if warranted by ordering [id number], HCG Quantitative Pregna ncy. Specimen Anatomical Collection Method Collection Time Receive d Time (Source) Location / / Volume Laterality Urine specimen URINE SPECIMEN 08/09/2020 7:00 AM 08/09 7:09 (specimen) OBTAINED BY CLEAN PLANT PHYSIOLOGIST AM PLANT PHYSIOLOGIST CATCH PROCEDURE / Unknown Catina Ha MD LAB - URINE ORDERABLES Performing Organization Address City/State/ZIP Code Phon e Number [facility] [address] [place] [address] [facility] LAB RESULT - HIM SCAN (07/25/2020 12:00 AM PLANT PHYSIOLOGIST) Specimen (Source) Anatomical Location Collection Method / [...] (TYLENOL) tablet 650 Given 08/09/2020 8:57 PM PLANT PHYSIOLOGIST 650 mg mg 650 mg, Oral, EVERY 6 HOURS, First dose (after last modification) on Sat08/09/20 at 1430, Maximum acetaminophen dose from all sources = 75 mg/kg/day not to exceed 4 grams/day. Given 08/09/2020 3:16 PM PLANT PHYSIOLOGIST 650 mg acetaminophen (TYLENOL) tablet 650 mg Given 08/13/2020 11:15 AM PLANT PHYSIOLOGIST 650 mg 650 mg, Oral, EVERY 6 HOURS, First dose (after last reorder) on Sat08/10/20 at 0300, Maximum acetaminophen dose from all sources = 75 mg/kg/day not to exceed 4 grams/day. Given 08/13/2020 5:55 AM PLANT PHYSIOLOGIST 650 mg Given 08/13/2020 12:25 AM PLANT PHYSIOLOGIST 650 mg acetaminophen (TYLENOL) tablet 650 mg Given 08/16/2020 8:47 AM PLANT PHYSIOLOGIST 650 mg 650 mg, Oral, EVERY 6 HOURS RT, First dose on Sat08/15/20 at 1500, Maximum acetaminophen dose from all sources = 75 mg/kg/day not to exceed 4 grams/day. Given 08/16/2020 2:13 AM PLANT PHYSIOLOGIST 650 mg Given 08/15/2020 8:14 PM PLANT PHYSIOLOGIST 650 mg acetaminophen (TYLENOL) tablet 975 mg Given 08/09/2020 7:41 AM PLANT PHYSIOLOGIST 975 mg 975 mg, Oral, ONCE, On [...] chewable tablet 500 Given 12/2020 8:57 PM PLANT PHYSIOLOGIST 500 mg mg 500 mg, Oral, DAILY, First dose on Sat08/09/20 at 1800 calcium carbonate (TUMS) chewable tablet 500 Given 07/2021 8:47 AM PLANT PHYSIOLOGIST 500 mg mg 500 mg, Oral, DAILY, First dose (after last reorder) on Sat08/10/20 at 0800 Given 08/15/2020 8:44 AM PLANT PHYSIOLOGIST 500 mg Given 08/14/2020 8:48 AM PLANT PHYSIOLOGIST 500 mg ceFAZolin (ANCEF) intermittent infusion Given 08/09/2020 5:1 8 PM PLANT PHYSIOLOGIST 2 g 200 mL/hr 2 g in [...] intermittent infusion Given 08/10/2020 2:3 3 AM PLANT PHYSIOLOGIST 2 g 200 mL/hr 2 g in [...] 125 mcg (5000 Given 08/16/2020 8:47 AM PLANT PHYSIOLOGIST 125 mcg units) capsule 125 mcg 125 mcg, Oral, DAILY, First dose (after last reorder) on Sat08/10/20 at 0800, Note: 125 mcg = 5000 units Given 08/15/2020 8:44 AM PLANT PHYSIOLOGIST 125 mcg Given 08/14/2020 8:48 AM PLANT PHYSIOLOGIST 125 mcg diazepam (VALIUM) half-tab 2.5 mg Given 08/16/2020 10:08 AM PLANT PHYSIOLOGIST 2.5 mg 2.5 mg, Oral, EVERY 6 HOURS, First dose on Sat08/15/20 at 0930 Given 08/16/2020 4:12 AM PLANT PHYSIOLOGIST 2.5 mg Given 08/15/2020 9:03 PM PLANT PHYSIOLOGIST 2.5 mg diazepam (VALIUM) injection 2.5 mg Given 08/09/2020 7:52 PM PLANT PHYSIOLOGIST 2.5 mg 2.5 mg, Intravenous, Administer over 1-4 Minutes, EVERY 6 HOURS, First dose on Sat08/09/20 at 1400, This drug may cause significant respiratory depression. Monitor respiratory status and vital signs carefully for 1 hour after each dose. Given 08/09/2020 2:15 PM PLANT PHYSIOLOGIST 2.5 mg diazepam (VALIUM) injection 2.5 mg Given 08/15/2020 2:36 AM PLANT PHYSIOLOGIST 2.5 mg 2.5 mg, Intravenous, Administer over 1-4 Minutes, EVERY 6 HOURS, First dose (after last reorder) on Sat08/10/20 at 0200, This drug may cause significant respiratory depression. Monitor respiratory status and vital signs carefully for 1 hour after each dose. Given 08/14/2020 8:11 PM PLANT PHYSIOLOGIST 2.5 mg Given 08/14/2020 2:26 PM PLANT PHYSIOLOGIST 2.5 mg fentaNYL (PF) (SUBLIMAZE) injection 25 m cg Given 08/12/2020 9:29 AM PLANT PHYSIOLOGIST 25 mcg 25 mcg, Intravenous, ONCE, On Sat08/12/20 at 0930, For 1 dose, For ordered IV doses 1-100 mcg give IV Push undiluted over a minimum of 3-5 minutes. fentaNYL (PF) (SUBLIMAZE) injection 25 m cg Given 08/14/2020 5:15 PM PLANT PHYSIOLOGIST 25 mcg 25 mcg, Intravenous, EVERY 2 HOURS PRN, breakthrough pain, Starting on Sat08/14/20 at 1312, For ordered IV doses 1-100 mcg give IV Push undiluted over a minimum of 3-5 minutes. fentaNYL (SUBLIMAZE) SUSTAINABLE LANDSCAPE ARCHITECT 50 mcg/mL OPIOID Shift Total 08/13/2020 8:02 PM PLANT PHYSIOLOGIST NAIVE Continuous Rate: 0 mcg/hr, SUSTAINABLE LANDSCAPE ARCHITECT Dose: 20 mcg, SUSTAINABLE LANDSCAPE ARCHITECT Lockout: 15 Minutes, One Hour Limit: 100 mcg, Clinician Bolus (one time dose): 25 mcg, Starting on Sat08/12/20 at 1130, Hold the dose for analgesic side effects. Notify the provider to assess for uncontrolled pain or analgesic side effects. Do NOT give any additional opioids while on SUSTAINABLE LANDSCAPE ARCHITECT unless provider authorized., Intravenous Rate/Dose Verify 08/13/2020 7:36 AM PLANT PHYSIOLOGIST Shift Total 08/13/2020 6:54 AM PLANT PHYSIOLOGIST fentaNYL (SUBLIMAZE) SUSTAINABLE LANDSCAPE ARCHITECT 50 mcg/mL Rate/Dose Verify 08/14/2020 7:16 A M PLANT PHYSIOLOGIST OPIOID NAIVE Continuous Rate: 0 mcg/hr, SUSTAINABLE LANDSCAPE ARCHITECT Dose: 20 mcg, SUSTAINABLE LANDSCAPE ARCHITECT Lockout: 60 Minutes, One Hour Limit: 25 mcg, Clinician Bolus (one time dose): 25 mcg, Starting on Sat08/13/20 at 1800, Hold the dose for analgesic side effects. Notify the provider to assess for uncontrolled pain or analgesic side effects. Do NOT give any additional opioids while on SUSTAINABLE LANDSCAPE ARCHITECT unless provider authorized., Intravenous Rate/Dose Verify 08/14/2020 7:15 AM PLANT PHYSIOLOGIST Rate/Dose Verify 08/13/2020 11:18 PM PLANT PHYSIOLOGIST gabapentin (NEURONTIN) capsule 300 mg Given 08/09/2020 7:41 AM PLANT PHYSIOLOGIST 300 mg 300 mg, Oral, PRE-OP/PRE-PROCEDURE, Starting on Sat08/09/20 at 0650, For 1 dose, For pain with neuropathic features, Pre-procedure HYDROcodone-acetaminophen (NORCO) 5-325 MG Given 08/15 8:44 AM PLANT PHYSIOLOGIST 1 tablet per tablet 1 tablet 1 tablet, Oral, EVERY 4 HOURS PRN, moderate to severe pain, Starting on 08/13/20 at 1331, Maximum acetaminophen dose from all sources= 75 mg/kg/day not to exceed 4 grams Given 08/15/2020 4:24 AM PLANT PHYSIOLOGIST 1 tablet Given 08/15/2020 12:47 AM PLANT PHYSIOLOGIST 1 tablet HYDROmorphone (DILAUDID) SUSTAINABLE LANDSCAPE ARCHITECT 0.2 New Syringe/Cartridge 08/11/2020 4:4 5 PM PLANT PHYSIOLOGIST mg/mL OPIOID TOLERANT Continuous Rate: 0.2 mg/hr, SUSTAINABLE LANDSCAPE ARCHITECT Dose: 0.1 mg, SUSTAINABLE LANDSCAPE ARCHITECT Lockout: 10 Minutes, One Hour Limit: 0.6 mg, Clinician Bolus (one time dose): 0 mg, Starting on Ariela 08/11/20 at 1230, Hold the dose for analgesic side effects. Notify the provider to assess for uncontrolled pain or analgesic side effects. Do NOT give any additional opioids while on SUSTAINABLE LANDSCAPE ARCHITECT unless provider authorized., Intravenous hydrOXYzine (VISTARIL) injection PEDS/NICU 25 Given 3:26 PM PLANT PHYSIOLOGIST 25 mg mg 25 mg, Intravenous, Administer over 10 Minutes, EVERY 6 HOURS PRN, itching, Starting on Tu08/09/20 at 1351, MAXIMUM concentration by access type: 1 mg/mL for peripheral lines 25 mg/mL for central lines hydrOXYzine 25 mg in D5W injection PEDS/ NICU New Bag 08/12/2020 8:57 PM PLANT PHYSIOLOGIST 25 mg 25 mg, Intravenous, Administer over 60 Minutes, EVERY 6 HOURS PRN, itching, Starting on Sat08/10/20 at 0041, MAXIMUM concentration by access type: 1 mg/mL for peripheral lines 25 mg/mL for central lines ketamine (KETALAR) 2 Rate/Dose Verify 08/15/2020 8:00 AM PLANT PHYSIOLOGIST 3 mg/hr 1.5 mL/hr mg/mL in sodium chloride 0.9 % 50 mL ANALGESIA infusion (make in CADD cassette) 3 mg/hr (1.5 mL/hr), Intravenous, CONTINUOUS, Starting on Sat08/14/20 at 2030, Population for use? Analgesia New Syringe/Cartridge 08/14/2020 10:07 PM PLANT PHYSIOLOGIST 3 mg/hr 1.5 mL/h r ketamine (KETALAR) 25 Rate/Dose Verify 08/14/2020 7:12 PM PLANT PHYSIOLOGIST 3 mg/hr 0.1 mL/hr mg/mL in sodium [...] use? Analgesia Rate/Dose Verify 08/14/2020 4:02 PM PLANT PHYSIOLOGIST 3 mg/hr 0.1 mL/hr Rate/Dose Verify 08/14/2020 8:00 AM PLANT PHYSIOLOGIST 3 mg/hr 0.1 mL/hr lactated ringers infusion New Bag 08/09/2020 5:03 PM PLANT PHYSIOLOGIST 90 mL/hr at 90 mL/hr, Intravenous, CONTINUOUS, Starting on Sat08/09/20 at 1400, Until Sat08/10/20 at 0015 New Bag 08/09/2020 2:04 PM PLANT PHYSIOLOGIST 90 mL/hr lactated ringers infusion Rate/Dose Change 08/10/2020 11:02 AM PLANT PHYSIOLOGIST 10 mL/hr at 0-3 mL/hr, Intravenous, CONTINUOUS, IV/PO titrate: goal 360mL Q4H, Starting on Sat08/10/20 at 0100, Until Ariela 08/11/20 at 1842 New Bag 08/10/2020 4:03 AM PLANT PHYSIOLOGIST 90 mL/hr Rate/Dose Verify 08/10/2020 2:20 AM PLANT PHYSIOLOGIST 90 mL/hr Lidocaine (LIDOCARE) Patch/Med Applied 08/14/2020 1:26 PM 1 patch Other (see 4 % Patch 1 patch PLANT PHYSIOLOGIST comments) 1 patch, Transdermal, EVERY 24 HOURS, [...] Other (see 4 % Patch 1 patch PLANT PHYSIOLOGIST comments) 1 patch, Transdermal, EVERY 24 HOURS, [...] % 0.2-0.4 mL Given 08/12/2020 12:56 PM PLANT PHYSIOLOGIST 0.2 mLs Left Arm 0.2-0.4 mL, Other, EVERY 1 HOUR PRN, pain with VAD insertion., Starting on Sat08/12/20 at 1228, Do NOT give if patient has a history of allergy to any local anesthetic or any korey product. MAX dose 1 mL subcutaneously OR intradermally in divided doses as needed for VAD insertion. Given 08/12/2020 12:55 PM PLANT PHYSIOLOGIST 0.2 mLs Righ t Arm lidocaine 1 % Starting on Sat08/12/20 at 1231, For 1 dose, Aj Terrazas: cabinet override lidocaine 2 gm in D5W 250 Rate/Dose Verify 08/09/2020 7:31 PM 1 mg/ kg/hr 6.8 mL/hr mL (ADULT STD) PLANT PHYSIOLOGIST 1 mg/kg/hr ? 54.7 kg (6.8375 mL/hr, rounded to 6.8 mL/hr), Intravenous, CONTINUOUS, Starting on Sat08/09/20 at 1400, For 42 hours, Initiate treatment at 1 mg/kg/hr, Intravenous. For patient with a BMI greater than 30 use [place] [facility] Body Weight (IBW). STOP infusion if patient [...] jazzmine kumar New Bag 08/09/2020 5:27 PM PLANT PHYSIOLOGIST 1 mg/kg/hr 6.8 mL/hr Rate/Dose Verify 08/09/2020 3:33 PM PLANT PHYSIOLOGIST 1 mg/kg/hr 6.8 mL/hr lidocaine 2 gm in D5W 250 Rate/Dose Verify 08/11/2020 7:37 AM 1 mg/ kg/hr 6.8 mL/hr mL (ADULT STD) PLANT PHYSIOLOGIST 1 mg/kg/hr ? 54.7 kg (6.8375 mL/hr, rounded to 6.8 mL/hr), Intravenous, CONTINUOUS, Starting on Sat08/10/20 at 2000, Initiate treatment at 1 mg/kg/hr, Intravenous. For patient with a BMI greater than 30 use [facility] Body Weight (IBW). STOP infusion if patient [...] consciousness, arrhythmias. New Bag 08/10/2020 8:37 PM PLANT PHYSIOLOGIST 1 mg/kg/hr 6.8 mL/hr lidocaine 400 mg in D5W Rate/Dose Verify 08/10/2020 7:20 PM 1 mg/kg /hr 6.8 mL/hr 50 mL (ADULT STD) - for PLANT PHYSIOLOGIST ANALGESIA 1 mg/kg/hr ? 54.7 kg (6.8375 mL/hr, rounded to 6.8 mL/hr), Intravenous, CONTINUOUS, Starting on Sat08/10/20 at 0130, Initiate treatment at 1 mg/kg/hr, Intravenous. For patient with a BMI greater than 30 use [facility] Body Weight (IBW). STOP infusion if patient [...] consciousness, arrhythmias. Rate/Dose Verify 08/10/2020 7:34 AM PLANT PHYSIOLOGIST 1 mg/kg/hr 6.8 mL/hr Rate/Dose Verify 08/10/2020 2:21 AM PLANT PHYSIOLOGIST 1 mg/kg/hr 6.8 mL/hr lidocaine patch in [...] (MILK OF MAGNESIA) Given 08/12/2020 8:57 AM PLANT PHYSIOLOGIST 30 mLs suspension 30 mL 30 mL, Oral, ONCE, On Sat08/12/20 at 0830, For 1 dose, Shake well. Hold for loose stools. midazolam (VERSED) injection 2 mg Given 08/09/2020 8:04 AM PLANT PHYSIOLOGIST 2 mg 2 mg, Intravenous, Administer over 2 Minutes, ONCE, On Sat08/09/20 at 0830, For 1 dose, This drug may cause significant respiratory depression. Monitor respiratory status and vital signs carefully for 1 hour after each dose., Pre-procedure morphine (PF) injection 1 mg Given 08/09/2020 2:25 PM PLANT PHYSIOLOGIST 1 mg 1 mg, Intravenous, ONCE PRN, moderate to severe pain, Starting on Sat08/09/20 at 1352, For 1 dose, For ordered IV doses 0.1-15 mg give IV Push undiluted over 4-5 minutes. morphine (PF) injection 1 mg Given 08/09/2020 3:30 PM PLANT PHYSIOLOGIST 1 mg 1 mg, Intravenous, ONCE PRN, moderate to severe pain, Starting on Sat08/09/20 at 1549, For 1 dose, For ordered IV doses 0.1-15 mg give IV Push undiluted over 4-5 minutes. morphine 1 mg/ml bolus from infusion pump Given 08/11/2020 11:25 AM PLANT PHYSIOLOGIST 0.5 mg 0.5 mg 0.5 mg, Intravenous, [...] order. , Post-procedure Given 08/11/2020 8:19 AM PLANT PHYSIOLOGIST 0.5 mg Given 08/11/2020 5:56 AM PLANT PHYSIOLOGIST 0.5 mg morphine 1 mg/ml bolus from infusion pum p 1 mg Given 08/09/2020 10:45 PM PLANT PHYSIOLOGIST 1 mg 1 mg, Intravenous, EVERY 2 [...] order. , Post-procedure Given 08/09/2020 8:48 PM PLANT PHYSIOLOGIST 1 mg Given 08/09/2020 5:17 PM PLANT PHYSIOLOGIST 1 mg morphine 1 mg/ml bolus from infusion pum p 1 mg Given 08/10/2020 2:52 PM PLANT PHYSIOLOGIST 1 mg 1 mg, Intravenous, EVERY 2 [...] order. , Post-procedure Given 08/10/2020 9:12 AM PLANT PHYSIOLOGIST 1 mg Given 08/10/2020 2:46 AM PLANT PHYSIOLOGIST 1 mg morphine SUSTAINABLE LANDSCAPE ARCHITECT 1 mg/mL PEDS OPIOID New Syringe/Cartridge 08/09/2020 3:1 0 PM PLANT PHYSIOLOGIST NAIVE Initial Set-up verified by: jazzmine kumar, Continuous Rate: 0 mg/hr, SUSTAINABLE LANDSCAPE ARCHITECT Dose: 0.01 mg/kg (0.5 mg), SUSTAINABLE LANDSCAPE ARCHITECT Lockout: 30 Minutes, One Hour Limit: 0.02 mg/kg (1.1 mg), Clinician Bolus (one time dose): 0.01 mg/kg (0.5 mg), Weight: 54.7 kg, Starting on Sat08/09/20 at 1430, Hold the dose for analgesic side effects. Notify the provider to assess for uncontrolled pain or analgesic side effects. Do NOT give any additional opioids while on SUSTAINABLE LANDSCAPE ARCHITECT unless provider authorized., Intravenous Morphine Sulfate (PF) 1 Rate/Dose Verify 08/09/2020 7:31 PM 0.5 mg/hr 0.5 mL/hr mg/mL in sodium chloride PLANT PHYSIOLOGIST 0.9 % 30 mL PEDS infusion 0.5 mg/hr (0.5 mL/hr), Intravenous, CONTINUOUS, Starting on Sat08/09/20 at 1600, Post-procedure, Initial Set-up verified by: jazzmine kumar New Bag 08/09/2020 4:51 PM PLANT PHYSIOLOGIST 0.5 mg/hr 0.5 mL/hr Morphine Sulfate (PF) 1 Rate/Dose Verify 08/11/2020 7:37 AM 0.5 mg/hr 0.5 mL/hr mg/mL in sodium chloride PLANT PHYSIOLOGIST 0.9 % 30 mL PEDS infusion 0.5 mg/hr (0.5 mL/hr), Intravenous, CONTINUOUS, Starting on Sat08/10/20 at 0100, Post-procedure, Initial Set-up verified by: jazzmine kumar Rate/Dose Verify 08/10/2020 7:22 PM PLANT PHYSIOLOGIST 0.5 mg/hr 0.5 mL/hr Rate/Dose Verify 08/10/2020 7:34 AM PLANT PHYSIOLOGIST 0.5 mg/hr 0.5 mL/hr naloxone (NARCAN) injection [...] response. norethindrone-ethinyl estradiol Given 08/16/2020 8:48 AM PLANT PHYSIOLOGIST 1 t ablet (MICROGESTIN 08/24) 1-20 MG-MCG per tablet 1 tablet 1 tablet, Oral, DAILY, First dose on Sat08/10/20 at 0800 Given 08/15/2020 8:45 AM PLANT PHYSIOLOGIST 1 tablet Given 08/14/2020 8:49 AM PLANT PHYSIOLOGIST 1 tablet OLANZapine zydis (zyPREXA) ODT half-tab 2.5 Given 08/11/2020 1:43 PM PLANT PHYSIOLOGIST 2.5 mg mg 2.5 mg, Oral, ONCE, [...] ODT half-tab 2.5 Given 08/05 10:05 PM PLANT PHYSIOLOGIST 2.5 mg mg 2.5 mg, Oral, AT [...] Liquid not required. Given 08/13/2020 9:51 PM PLANT PHYSIOLOGIST 2.5 mg Given 08/12/2020 10:11 PM PLANT PHYSIOLOGIST 2.5 mg ondansetron (ZOFRAN) injection 4 mg Given 08/09/2020 3:14 PM PLANT PHYSIOLOGIST 4 mg 4 mg, Intravenous, Administer over 5 Minutes, EVERY 6 HOURS PRN, nausea, vomiting, Starting on Sat08/09/20 at 1415, Irritant. For ordered IV doses 0.1-4 mg, give IV Push undiluted over 2-5 minutes. ondansetron (ZOFRAN) injection 4 mg Given 08/12/2020 5:43 AM PLANT PHYSIOLOGIST 4 mg 4 mg, Intravenous, Administer over 5 Minutes, EVERY 6 HOURS PRN, nausea, vomiting, Starting on Sat08/10/20 at 0040, Irritant. For ordered IV doses 0.1-4 mg, give IV Push undiluted over 2-5 minutes. Given 08/12/2020 12:42 AM PLANT PHYSIOLOGIST 4 mg Given 08/11/2020 6:10 PM PLANT PHYSIOLOGIST 4 mg oxyCODONE (ROXICODONE) tablet 5 mg Given 08/16/2020 1:12 PM PLANT PHYSIOLOGIST 5 mg 5 mg, Oral, EVERY 4 HOURS PRN, moderate to severe pain, Starting on Sat08/15/20 at 1143 Given 08/16/2020 9:15 AM PLANT PHYSIOLOGIST 5 mg Given 08/16/2020 5:21 AM PLANT PHYSIOLOGIST 5 mg oxyCODONE (ROXICODONE) tablet 5 mg Given 08/15/2020 9:03 PM PLANT PHYSIOLOGIST 5 mg 5 mg, Oral, ONCE, On Sat08/15/20 at 2100, For 1 dose polyethylene glycol (MIRALAX) Packet 17 g Given 08/14/2020 1:45 PM PLANT PHYSIOLOGIST 17 g 17 g, Oral, DAILY PRN, [...] Packet 17 g Given 08/11/2020 1:43 PM PLANT PHYSIOLOGIST 17 g 17 g, Oral, DAILY, First [...] Packet 17 g Given 08/12/2020 8:46 AM PLANT PHYSIOLOGIST 17 g 17 g, Oral, 2 TIMES [...] capsule 150 mg Given 08/16/2020 8:47 AM PLANT PHYSIOLOGIST 150 mg 150 mg, Oral, 2 TIMES DAILY, First dose (after last modification) on Sat08/15/20 at 2000 Given 08/15/2020 8:14 PM PLANT PHYSIOLOGIST 150 mg pregabalin (LYRICA) capsule 75 mg Given 08/15/2020 8:44 AM PLANT PHYSIOLOGIST 75 mg 75 mg, Oral, 2 TIMES DAILY, First dose on Sat08/11/20 at 1300 Given 08/14/2020 8:12 PM PLANT PHYSIOLOGIST 75 mg Given 08/14/2020 8:48 AM PLANT PHYSIOLOGIST 75 mg scopolamine (TRANSDERM) Patch/Med Applied 08/09/2020 7:42 AM 1 patch Behind Right 72 hr patch 1 patch PLANT PHYSIOLOGIST Ear 1 patch, Transdermal, ONCE, Administer over 24 Hours, On Sat08/09/20 at 0700, For 1 dose, Apply patch to skin, behind ear. Place in Pre-Op. Remove patch after 24 hours. Each 1.5 mg patch delivers 1 mg of scopolamine. Reminder: Remove previous patch before applying new patch., Pre-procedure scopolamine (TRANSDERM-SCOP) patch REMOV AL Given 08/11/2020 6:09 PM PLANT PHYSIOLOGIST On Sat08/11/20 at 1600, For 1 dose, Remove at 16:00 on POD 2. sennosides (SENOKOT) tablet 8.6 mg Given 08/14/2020 8:48 AM PLANT PHYSIOLOGIST 8.6 mg 8.6 mg, Oral, 2 TIMES DAILY, First dose on Sat08/10/20 at 1100, Hold for loose stools. Given 08/12/2020 8:46 AM PLANT PHYSIOLOGIST 8.6 mg Given 08/11/2020 9:03 PM PLANT PHYSIOLOGIST 8.6 mg sertraline (ZOLOFT) tablet 100 mg Given 08/16/2020 8:47 AM PLANT PHYSIOLOGIST 100 mg 100 mg, Oral, DAILY, First dose on Sat08/10/20 at 0800 Given 08/15/2020 8:44 AM PLANT PHYSIOLOGIST 100 mg Given 08/14/2020 8:48 AM PLANT PHYSIOLOGIST 100 mg sodium chloride 0.9 % with papaverine 6 mg New Bag 08/10/2020 7:23 PM PLANT PHYSIOLOGIST 3 mL/hr infusion 50 mL, at 1 mL/hr, INTRA-ARTERIAL, CONTINUOUS, Starting on Sat08/10/20 at 0100, Until Sat08/14/20 at 1313 New Bag 08/10/2020 2:40 AM PLANT PHYSIOLOGIST 1 mL/hr New Bag 08/10/2020 2:21 AM PLANT PHYSIOLOGIST 1 mL/hr sodium chloride 0.9% infusion New Bag 08/09/2020 2:03 PM PLANT PHYSIOLOGIST 3 mL/hr at 3 mL/hr, Intravenous, CONTINUOUS, Carrier/TKO fluid for Patient Controlled Analgesia (SUSTAINABLE LANDSCAPE ARCHITECT) IF ordered. MUST use carrier/TKO fluid to deliver SUSTAINABLE LANDSCAPE ARCHITECT infusion. IF SUSTAINABLE LANDSCAPE ARCHITECT not ordered or discontinued may discontinue this order, Starting on Sat08/09/20 at 1400, Until Sat08/10/20 at 0015 sodium chloride 0.9% infusion New Bag 08/14/2020 12:23 AM PLANT PHYSIOLOGIST 10 mL/hr at 3 mL/hr, Intravenous, CONTINUOUS, Carrier and packaging line operator infusion, Starting on Sat08/11/20 at 1800, Until Sat08/14/20 at 1313 New Bag 08/12/2020 1:20 PM PLANT PHYSIOLOGIST 3 mL/hr New Bag 08/12/2020 9:31 AM PLANT PHYSIOLOGIST 3 mL/hr sodium chloride 0.9% infusion Rate/Dose Change 08/14/2020 10:16 PM PLANT PHYSIOLOGIST 3 mL/hr at 3 mL/hr, Intravenous, CONTINUOUS, carrier, Starting on Sat08/11/20 at 2100, Until Sat08/16/20 at 1542 Rate/Dose Verify 08/14/2020 8:00 PM PLANT PHYSIOLOGIST 15 mL/hr Rate/Dose Verify 08/14/2020 3:00 PM PLANT PHYSIOLOGIST 15 mL/hr sodium chloride 0.9% Rate Change (Transfusion) 08/14/2020 12:00 PM 25 mL/hr infusion PLANT PHYSIOLOGIST at 0-100 mL/hr, Intravenous, CONTINUOUS, IV/PO titrate. Patient to get 400 mls of fluids every 4 hours, Starting on Ariela 08/11/20 at 2300, Until 08/14/20 at 1147 New Bag 08/14/2020 5:50 AM PLANT PHYSIOLOGIST 1,000 mLs 50 mL/hr Rate/Dose Change 08/13/2020 1:00 PM PLANT PHYSIOLOGIST 20 mL/hr tranexamic acid (CYKLOKAPRON) bolus 500 mg Given 08/09/2020 9:04 PM PLANT PHYSIOLOGIST 500 mg 500 mg, Intravenous, EVERY 6 HOURS, First dose on Sat08/09/20 at 1430, Each 1 gram to be infused over 10 minutes. Given 08/09/2020 3:43 PM PLANT PHYSIOLOGIST 500 mg tranexamic acid (CYKLOKAPRON) bolus 500 mg Given 08/10/2020 9:23 AM PLANT PHYSIOLOGIST 500 mg 500 mg, Intravenous, EVERY 6 HOURS, First dose (after last reorder) on Sat08/10/20 at 0300, Each 1 gram to be infused over 10 minutes. Given 08/10/2020 3:58 AM PLANT PHYSIOLOGIST 500 mg tranexamic acid (LYSTEDA) half-tab 975 m g Given 08/16/2020 10:08 AM PLANT PHYSIOLOGIST 975 mg 975 mg, Oral, EVERY 6 HOURS, First dose on Sat08/10/20 at 1600 Given 08/16/2020 4:12 AM PLANT PHYSIOLOGIST 975 mg Given 08/15/2020 11:39 PM PLANT PHYSIOLOGIST 975 mg documented in this encounter Active and Recently Administered Medications Times are shown in PLANT PHYSIOLOGIST. Scheduled Medication Order 08/14/2020 08/15/2020 08/16/2020 acetaminophen (TYLENOL) tablet 650 mg 15 08 (Given - Provider: Tess Gutierrez, RUTH)2013 (Given - Provider: Romana Fernandez RN) 0213 [...] RN) 0844 (Given - Provider: Tess Gutierrez, RN) 0847 (Given - Provider: Tess Gutierrez, [...] Entry - Provider: Robert Ying [facility] - Comment: Automatically canceled at discontinue of medication order) 1 patch, Transdermal, EVERY 24 HOURS, Ad sports doctor over 12 Hours, First dose on Sat08/14/20 [...] Tiff Collins RN)1430 (Canceled Entry - Provider: Orders Generic Provider - Comment: Automatically canceled at discontinue of medication order) 1 patch, Transdermal, EVERY 24 HOURS, Ad sports doctor over 12 Hours, First dose (after last [...] RN)2339 (Patch in Place - Provider: Henna Murray, RUTH) 0608 (Patch Free Period - Provider: Tiff [...] (COMPLETED) 2102 (Given - Provider: Henna Murray, RUTH) 5 mg, Oral, ONCE, On 08/15/20 at 2100, For 1 dose polyethylene glycol [...] Hull, RUTH)1608 (Given - Provider: Tiff Gonzales, RN)2205 (Given - Provider: Berlin Downs, RUTH) 0424 (Given - Provider: Berlin Downs RN)1005 (Given - Provider: Tess Gutierrez RN)1749 (Given - Provider: Henna Murray, RN)2339 (Given - Provider: Henna Murray, RN) 0412 (Given - Provider: Tiff Collins , RUTH)1008 (Given - Provider: Tess Gutierrez RN) 975 mg, Oral, EVERY 6 HOURS, First dose on Sat08/10/20 at 1600 Continuous Medication Order 08/14/2020 08/15/2020 08/16/2020 fentaNYL (SUBLIMAZE) SUSTAINABLE LANDSCAPE ARCHITECT 50 mcg/mL OPIOID NAIVE (CANCE LED) 0715 (Rate/Dose Verify - Provider: David Ayala RN)0716 (Rate/Dose Verify - Provider: David Ayala RN - Comment: double-checked with Tonya Villagomez RN)1200 (Stopped - Provider: Tonya Hull RN) Continuous Rate: 0 mcg/hr, SUSTAINABLE LANDSCAPE ARCHITECT Dose: 20 mcg, SUSTAINABLE LANDSCAPE ARCHITECT Lockout: 60 Minutes, One Hour Limit: 25 mcg, Clinician Bolus (one time dose): 25 mcg, Starting on 08/13/20 at 1800, Hold the dose for analgesic side ef fects. Notify the provider to assess for uncontrolled pain or analgesic side effects. Do NOT give any additional opioids while on SUSTAINABLE LANDSCAPE ARCHITECT unless provider authorized., Intravenous ketamine (KETALAR) 2 [...] 3 mL/hr, Intravenous, CONTINUOUS, Car rier and packaging line operator infusion, Starting on Ariela 08/11/20 at 1800, [...] 0550 (New Bag - Provider: David Ayala, RN)1200 (Rate Change (Transfusion) - Provider: Tonya Hull, [...] stools. documented in this encounter Care Teams Elementary Reading Tutor Relationship Specialty Start Date End Date Josh Carrero PCP - General Family Medicine 08/09/[address] [address] Catina Ha MD MD Orthopedics 03/08/[address] [place], [place] [id number] Mariposa Atwood Assigned PCP 04/29/20 11/12/20 MD Nettie [address] [place], [place] [address] Catina Ha MD Assigned Musculoskeletal 05/27/[address] Provider [place], [place] [address] Eugenio Finney Assigned Pediatric 06/19/2005/07 MD David Specialist Provider [address] [facility] 96 [place], [place] [address] documented as of this encounter
--- OUTSIDE RECORDS SUMMARY | 2022-07-02 21:49 | XMS_ITS | Encounter Summary ---
:2001 Author Organization [facility] Address [address] [place] [address] Care Team Providers Name Role Phone Julian Spencer MD Unavailable Mariposa Atwood MD Unavailable [phone] Julian Spencer MD Unavailable Eugenio Finney MD Unavailable [phone] Josh Carrero Primary Care Provider Reason for Visit Reason Onset Date Comments Call Back 08/12/2020 clarify Clinic Care Coordination - Follow-up 08/12/2020 Encounter Details Date Type Department Care Team Description 08/12/2020 Telephone [facility] Julian Spencer Call Back (clarify ); Orthopedic Clinic MD [facility] Care Coordination [address] - Follow-up [address] [facility] [address] [place] [phone] Social History Tobacco Use Types Packs/Day [...] with No / Unsure 08/09/2020 6:36 AM GLAZE WIPER someone who was confirmed or suspected to have Coronavirus / COVID-19? documented as of this encounter Miscellaneous Notes Telephone Encounter - Sabina Asif RN - 08/16/2020 9:55 PM CST Dakota was phoned by RN regarding the referral from Dr Spencer for her to see Dr Esposito. Pt was called and it was explained that Dr Esposito can see Dakota at [facility] since he is ending his practice here at the [facility]. Pt's mother was also on the line and said they had the number for [place]. They were encouraged to call [facility] for an appointment with Dr Esposito. Peggy Yun RN E WIPER Telephone Encounter - Aleksandr Baron - 08/12/2020 11:29 AM CST Health Call Center Phone Message May a detailed message be left on voicemail: yes Reason for Call: Other: pt's mom needs to clarify if she see's [facility] or not Action Taken: Message routed to: [facility] ortho Travel Screening: Not Applicable Johanna referred pt to [facility] and pt's mom says they were told [...] was miscommunication Please call back to discuss E WIPER documented in this encounter Plan of Treatment Not on filedocumented as of this encounter Visit Diagnoses Not on filedocumented in this encounter Care Teams Clearing Inspector Relationship Specialty Start Date End Date Josh Carrero PCP - General Family Medicine 08/09/[address] [address] Julian Spencer MD MD Orthopedics 03/08/[address] [place] [address] Mariposa Atwood Assigned PCP 04/29/20 11/12/20 MD Nettie [address] [facility] [place] [address] Julian Spencer MD Assigned Musculoskeletal 05/27/[address] [place] [address] Eugenio Finney Assigned Pediatric 06/19/2005/07 MD David Specialist Provider [address] [facility] [address] [place], [place] [id number] documented as of this encounter
--- OUTSIDE RECORDS SUMMARY | 2022-07-02 21:49 | XMS_ITS | Encounter Summary ---
:2001 Author Organization [facility] Address [address] [place] [address] Care Team Providers Name Role Phone Julian Spencer MD Unavailable Mariposa Atwood MD Unavailable [phone] Julian Spencer MD Unavailable Eugenio Finney MD Unavailable [phone] Josh Carrero Primary Care Provider Encounter [...] with No / Unsure 08/09/2020 6:36 AM PUBLIC SERVICE DIRECTOR someone who was confirmed or suspected to have Coronavirus / COVID-19? documented as of this encounter Plan of Treatment Not on filedocumented as of this encounter Visit Diagnoses Not on filedocumented in this encounter Care Teams Stone Hand Relationship Specialty Start Date End Date Josh Carrero PCP - General Family Medicine 08/09/[address] [address] Julian Spencer MD MD Orthopedics 03/08/[address] [place], [place] [phone] Mariposa Atwood Assigned PCP 04/29/20 11/12/20 MD Nettie [address] [facility] [place] [address] Julian Spencer MD Assigned Musculoskeletal 05/27/[address] Provider [place], [place] [phone] Eugenio Finney Assigned Pediatric 06/19/2005/07 MD David Specialist Provider [address] [facility] 96 [place], [place] [id number] documented as of this encounter
--- OUTSIDE RECORDS SUMMARY | 2022-07-02 21:49 | XMS_ITS | Encounter Summary ---
:2001 Author Organization [place] [facility] Address [address] [place] [address] Care Team Providers Name Role Phone Julian Spencer MD Unavailable Mariposa Atwood MD Unavailable [phone] Julian Spencer MD Unavailable Eugenio Finney MD Unavailable [phone] Josh Carrero Primary Care Provider Reason for Visit Reason Onset Date Comments Referral 08/12/2020 Encounter Details Date Type Department Care Team Description 08/12/2020 Telephone [facility] None Referral [address] 4[address] Floor [place] [phone] Social History Tobacco Use Types Packs/Day [...] with No / Unsure 08/09/2020 6:36 AM PRODUCTION MACHINE COMPUTER OPERATOR someone who was confirmed or suspected to have Coronavirus / COVID-19? documented as of this encounter Miscellaneous Notes Telephone Encounter - Peggy Yun RN - 08/16/2020 2:11 PM CST Dakota was phoned by RN regarding the referral from Dr Spencer for her to see Dr Esposito. Pt was called and it was explained that Dr Esposito can see Dakota at [facility] since he is ending his practice here at [facility]. Pt's mother was also on the line and said they had the number for [facility]. They were encouraged to call [facility] for an appointment with Dr Esposito. Peggy Yun RN UCTION MACHINE COMPUTER OPERATOR Telephone Encounter - Perez Goel - 08/12/2020 8:40 AM CST Per [facility] Priority line, this referral was discussed between Dr. Esposiot and Dr. Spencer. Please schedule accordingly. With Dr. Esposito's last day in September, [facility] is not able to schedule new patients withDr. Esposito. Thank you! UCTION MACHINE COMPUTER OPERATOR documented in this encounter Plan of Treatment Not on filedocumented as of this encounter Visit Diagnoses Not on filedocumented in this encounter Care Teams Media Relations Manager Relationship Specialty Start Date End Date Josh Carrero PCP - General Family Medicine 08/09/[address] [address] Julian Spencer MD MD Orthopedics 03/08/[address] [place] [id number] Mariposa Atwood Assigned PCP 04/29/20 11/12/20 MD Nettie [address] [facility] [place], [place] [phone] Julian Spencer MD Assigned Musculoskeletal 05/27/[address] [place] [address] Eugenio Finney Assigned Pediatric 06/19/2005/07 MD David Specialist Provider [address] [facility] 96 [place] [address] documented as of this encounter
--- OUTSIDE RECORDS SUMMARY | 2022-07-02 21:49 | XMS_ITS | Encounter Summary ---
:2001 Author Organization [facility] Address [address] [place] [address] Care Team Providers Name Role Phone Julian Spencer MD Unavailable Mariposa Atwood MD Unavailable [phone] Julian Spencer MD Unavailable Eugenio Finney MD Unavailable [phone] Josh Carrero Primary Care Provider Reason for Referral Consultation (Routine) - Closed Specialty Diagnoses / Procedures Referred By Contact Refer red To Contact Diagnoses Other secondary scoliosis, thoracolumbar region Painful orthopaedic hardware (H) Transitional vertebra Tethered cord (H) History of fusion of spine for scoliosis Acquired von Willebrand disease Leg length discrepancy [facility] Orth[facility] [address] [place] [address] [address] [place] [address] Referral ID Status Reason Start Date Expiration Date Visits Requ ested Visits Authorized [id number] Closed 08/11/2020 08/11/2021 1 1 L TESTER Reason for Visit Reason Onset Date Comments Clinic Care Coordination - Follow-up 08/11/2020 Encounter Details Date Type Department Care Team Description [facility] Orthopedic Clinic [phone] - Follow-u [facility] (Work) [address] [place] [address] 4th [place] [address] Social History Tobacco Use Types [...] with No / Unsure 08/09/2020 6:36 AM FINAL TESTER someone who was confirmed or suspected [...] her & she agreed & will call [phone] to schedule. Call back prn. Mom agreed. V.O.R.B./Sabina Asif RN. L TESTER documented in this encounter Plan of Treatment Scheduled Referrals Name Type Priority Associated Diagnoses Order S chedule Orthopedic & Spine Referral Routine Other secondary Expect ed: Rim Buster Referral scoliosis, thoracolumb ar 08/11/2020, Expires: region [...] (acquired) documented in this encounter Care Teams Caustic Room Operator Relationship Specialty Start Date End Date Josh Carrero PCP - General Family Medicine 08/09/[address] [place] [address] Julian Spencer MD MD Orthopedics 03/08/[address] [place], [place] [address] Mariposa Atwood Assigned PCP 04/29/20 11/12/20 MD Nettie [address] [place], [place] [phone] Julian Spencer MD Assigned Musculoskeletal 05/27/[address] Provider [place], [place] [phone] Eugenio Finney Assigned Pediatric 06/19/2005/07 MD David Specialist Provider [address] [facility] [address] [place], [place] [address] documented as of this encounter
--- OUTSIDE RECORDS SUMMARY | 2022-07-02 21:49 | XMS_ITS | Encounter Summary ---
:2001 Author Organization [facility] Address [address] [place] [address]. [place] [address] Care Team Providers Name Role Phone Julian Spencer MD Unavailable Mariposa Atwood MD Unavailable [phone] Julian Spencer MD Unavailable Eugenio Finney MD Unavailable [phone] Josh Carrero Primary Care Provider Encounter Details Date Type Department Care Team Description 08/10/2020 Orders Only [facility] Urbano Price is, unspecified scoliosis type, unspecified spinal region (Primary Dx); [facility] Pediatric MD Esteban Neuromuscular scoliosis of thoracolumbar region Specialty Clinic [address] [place] [address], [id number] [place] [address] (Wo rk) [address] [phone] Social History Tobacco Use Types Packs/Day Years Used Date Smoking Tobacco: Never Smokeless Tobacco: Never Alcohol Use Standard Drinks/Week Comments Not Currently 0 (1 standard drink = 0.6 oz pure alcoho l) Sex Assigned at Date Recorded Female 12/02/2020 1:42 PM CDT COVID-19 Exposure Response Date Recorded In the last month, have you been in contact with No / Unsure 08/09/2020 6:36 AM FURNACE ROASTER someone who was confirmed or suspected to have Coronavirus / COVID-19? documented as of this encounter Plan of Treatment Not on filedocumented as of this encounter Results Dexa hip/pelvis/spine (10/13/2020 2:18 PM FURNACE ROASTER) Anatomical Region Laterality Modality Dexa Bone Mineral Density Specimen (Source) Anatomical Location Collection Method / Collectio n Time Received Time / Laterality Volume Impressions 10/13/2020 2:44 PM FURNACE ROASTER IMPRESSION: Bone mineral density within normal limit [...] BRIGHT ZHENG MD Narrative 10/13/2020 2:44 PM FURNACE ROASTER INDICATION: Scoliosis COMPARISON: None TECHNICAL: The patient was scanned using a [employer], with pediatric software. Age: 20 years 2 [...] TECHNICAL: The patient was scanned using a [email or web address], with pediatric software. Age: 20 years 2 [...] scoliosis documented in this encounter Care Teams Maintenance Supervisor Electrical Relationship Specialty Start Date End Date Josh Carrero PCP - General Family Medicine 08/09/20 [place] [id number] Julian Spencer MD MD Orthopedics 03/08/[address] [place] [id number] Mariposa Atwood Assigned PCP 04/29/20 11/12/20 MD Nettie [address] [facility] [facility] [address] [place] [place] [phone] Julian Spencer MD Assigned Musculoskeletal 05/27/[address] [place], [place] [phone] Provider [place], [place] [address] Eugenio Finney Assigned Pediatric 11/15/20 10/3 0/21 MD David Specialist Provider [address] [place] [address] 96 [place] [address] documented as of this encounter
--- OUTSIDE RECORDS SUMMARY | 2022-07-02 21:50 | XMS_ITS | Encounter Summary ---
:2001 Author Organization [place] Address [facility] [place] [address] Care Team Providers Name Role Phone Clinic, [facility] Primary Care Provide r Julian Spencer MD Unavailable Mariposa Atwood MD Unavailable [phone] Julian Spencer MD Unavailable Eugenio Finney MD Unavailable [phone] Encounter Details Date Type Department Care Team Description 08/08/2020 Medical Correspondence [facility] Luiz Atwood Pediatric MD [facility] [address] [place], [place] [address] 9 [place] [address] Social History Tobacco Use Types [...] contact Unable to assess 08/07/2020 3:11 PM BIGHT MAKER with someone who was confirmed or suspected [...] and lab results from multiple providers, including [place], [place], [facility], [facility], [facility]. Multiple providers have had communication with respect to her course. (Detailed description follows short summary) In summary, Dakota does not have Type 2A von Willebrand's Disease genotyping per [facility]'s testing which her aunt has been diagnosed as having nor does she fit a diagnosis of Type 1 von Willebrand's Disease. She has mild platelet dysfunction documented at [facility] and at the [facility] without abnormal morphology or electron microscopy. She does fit the description of [place] platelet disorder, including having a maternal grandfather of [place] ancestry who had a bleeding history according to Dakota'smother, BUT the fibrinolytic gene profile performed at [facility] did NOT reveal the known [place] platelet disorder gene changes; large abnormal exons will not be identified by this testing. Dakota has been successfully managed previously with pre-operative, intra- operative and post-operative anti-fibriolytics, which would be usual management for multiple ill-defined bleeding disorders, including a mild vWD of some sort OR [place] platelet disorder OR mild platelet dysfunction OR [...] I suspect her large blood loss at [place] in January 2016, could have been partially [...] some FFP ? Amount) 2015 Consult per [facility] Ch Dad with nosebleeds, but no surgeries (orphaned so no other history) Mom with heavy periods, no bruising, no issues with surgery Maternal Aunt with Type IIa vWD from [facility] records Studies not consistent with vWD, [...] listed on discharge summary 09/16/19 Admitted to [facility] for work-up and to follow prior recs [...] pharmacy) Multiple studies sent in consultation at [facility] Platelet aggs normal except for second mild epi wave Genotyping for vWD negative for Type 2s at [facility] Plasminogen and JONNY-1 normal vWD studies normal and concordant between [facility] and [facility] Coag factors all normal TEG normal History obtained about MGF being [place] and having bleeding issues (bled with cuts, bruising) Second panel of platelet aggs abnormal because of taking Aleeve Fibrinolysis panel send to [facility] did NOT identify defect specifically associated with [place] platelet disorder but large exon defects would not be identified Mariposa Atwood MD, MS T MAKER documented in this encounter Plan of Treatment Not on filedocumented as of this encounter Visit Diagnoses Not on filedocumented in this encounter Care Teams Hog Worker Relationship Specialty Start Date End Date Clinic, [facility] PCP - General 10/15/17 08/08/[address] [address] Julian Spencer MD MD Orthopedics 03/08/[address] [place], [place] [address] Mariposa Atwood, Assigned PCP 04/29/2005/[address] [place] [id number] Julian Spencer MD Assigned Musculoskeletal 05/27/[address] Provider [place], [place] [address] Eugenio Finney, Assigned Pediatric 06/19/20 06/03/21 Specialist Provider [address] [facility] [address] [place], [place] [id number] documented as of this encounter
--- OUTSIDE RECORDS SUMMARY | 2022-07-02 21:50 | XMS_ITS | Encounter Summary ---
:2001 Author Organization [place] Address [address] [place] [address] Care Team Providers Name Role Phone Julian Spencer MD Unavailable Mariposa Atwood MD Unavailable [phone] Julian Spencer MD Unavailable Eugenio Finney MD Unavailable [phone] Josh Carrero Primary Care Provider Reason [...] Instrumentation Thoracic 3 - Lumbar 4 [address]50 [place] [address] Phone: Fax: Referral ID Status Reason Start Date Expiration Date Visits Requ ested Visits Authorized [id number] 1 1 Encounter Details Date Type Department Care Team Description 08/09/2020 Anesthesia Event [facility] Monica Deleon MD [address] [place] [address] PeriOp Services Bella Givens MD [address] [facility] [address] [place], [place] [id number] [address] [facility] [place] [address] Anesthesia Record Procedure Summary Procedure Name [...] 0909 AN INCISION 1137 Quick Note Surgeon jonyi savana a wake-up test 1308 AN Extubation All [...] Ramirez Harley, Ka therine, 08/10/20; 2040; RN RN Occluded ETT Placement Date: 08/09/20824 by 08/09/20 1308 b y 08/09/20; Placement Maikel Mckinnon Leyh, Richard Time: 824 (created WAIST PLEATERJoseph Boogie APRN CRNA via procedure documentation); Mask Ventilation: 1; Induction Type: Intravenous; Ease of Intubation: Easy; Technique: Direct laryngoscopy; ETT Type: Single; Tube Size: 6.5 mm; Grade View: 1; Adjucts: Stylet; Placement Person: GLUE LINE OPERATOR; Attempts: 1; Depth: 22 cm Peripheral IV 08/09/20; 0832; 16 G; 08/09/20 0832 by 08/10/202040 by Left; Hand; Alcohol; Maikel Mckinnon Harle y, Katherine, None; Tolerated well WAIST PLEATER GLUE LINE OPERATOR RN Urethral Catheter 08/09/20; 0845; No; 08/09/20 0845 by 08/10/20 1636 by Anesthesia Brooklyn Stephenson, Phil Baker RN Incision/Surgical Site 08/09/20; 0939; Back; 08/09/20 0939 by [id number] by 08/29/20; 0142 Brooklyn Stephenson, RUTH Inpatient, Nu rse Closed/Suction Drain 08/09/20; 1221; 1; 08/09/20 1221 by 1 0000 by Right; Back; Brooklyn Stephenson RN Schwarz, Mind y H, Emily; Charisma Castrejon RN documented in this [...] with No / Unsure 08/09/2020 6:36 AM TOE STRIPPER someone who was confirmed or suspected to [...] No bleeding visualized Last Anesthesia Record Vitals: GLUE LINE OPERATOR VITALS 08/09/2020 1246 - 08/09/2020 1346 08/09/2020 [...] Osborne MD, August 09, 2020, 2:56 PM STRIPPER Anesthesia Procedure Notes - Monica Garrett MD [...] Yes IBP within 10% of NIBP: Yes STRIPPER Anesthesia Procedure Notes - Maikel Mckinnon APRN CRNA - 08/09/2020 9:24 AM CSTAssociated Order(s): Airway Airway Date/Time: 08/09/2020 8:25 AM Patient location during procedure: OR Staff - Performed By: GLUE LINE OPERATOR Consent for Airway Urgency: elective Indications and [...] tape Ease of procedure: easy Dentition: Intact STRIPPER Anesthesia Preprocedure Evaluation - Monica Garrett MD [...] Resp Readings from Last 3 Encounters: 10/15/17 18 SpO2 Readings from Last 3 Encounters: 10/15/17 [...] Tolerance: Hematologic: Comments: Uncertain bleeding disorder, likely [place] Platelet. High dose TXA 30 mg/kg bolus, [...] Prevention: Ondansetron, Dexamethasone, Scopolamine Monica Osborne MD STRIPPER documented in this encounter Miscellaneous Notes Anesthesia Care Transfer Note - Maikel Mckinnon APRN GLUE LINE OPERATOR - 08/09/2020 1:36 PM CST Patient: Dakota [...] (Last set prior to Anesthesia Care Transfer) GLUE LINE OPERATOR VITALS 08/09/2020 1246 - 08/09/2020 1336 08/09/2020 Pulse: 96 SpO2: 100 % Electronically Signed By: Maikel Mckinnon APRN GLUE LINE OPERATOR August 09, 2020 1:36 PM STRIPPER documented in this encounter Plan of Treatment Not on filedocumented as of this encounter Procedures Procedure Name Priority Date/Time Associated Comments Diagnosis FV AN A-LINE DUMMY Routine 08/09/2020 2:54 PM Res ults for this PERFORMABLE TOE STRIPPER procedure are i n the results section. ANE AIRWAY ETT Routine 08/09/2020 9:24 AM Results for this PERFORMABLE TOE STRIPPER procedure are i n the results section. documented in this encounter Results FV AN A-LINE DUMMY PERFORMABLE (08/09/2020 2:54 PM TOE STRIPPER) Narrative Monica Garrett MD - 08/09/19 21 2:54 PM TOE STRIPPER Monica Garrett MD ? 08/09/2020 ??2:55 PM [...] ??Ultrasound Guided?: Yes ?Artery evaluated via ultrasound confi rming patency. ?? Using realtime imaging, the artery was punctured and th e needle was observed entering the artery. ?A permanent image is NOT entered into the patient's record. ?Catheter size: ??20 gauge, Quick cath ??Cath secured with: suture ?Dressing: ??Tegaderm ??Complications: ??None obvious ??Arterial waveform: Yes ?IBP within 10% of NIBP: Yes ?? Monica Deleon MD IN ANESTHESIA ANE AIRWAY ETT PERFORMABLE (08/09/2020 9:24 AM TOE STRIPPER) Narrative Maikel Mckinnon APRN GLUE LINE OPERATOR - 2020 9:24 AM TOE STRIPPER Maikel Mckinnon APRN GLUE LINE OPERATOR ? 08/09/2020 ??9:25 AM Airway Date/Time: 08/09/2020 8:25 AM Patient location during procedure: OR Staff - Performed By: GLUE LINE OPERATOR Consent for Airway Urgency: elective Indications and [...] procedure: easy Dentition: Intact Monica Deleon MD IN ANESTHESIA documented in this encounter Visit Diagnoses Not on filedocumented in this encounter Administered Medications Inactive Administered Medications - up to 3 most recent administrations Medication Order MAR Action Action Date Dose Rate Site albumin human 5 % injection New Bag 08/09/2020 11:32 AM TOE STRIPPER CONTINUOUS PRN, Starting on Sat08/09/20 at 0845, Anesthesia Intra-op New Bag 08/09/2020 8:45 AM TOE STRIPPER ceFAZolin (ANCEF) 1 g vial to attach to NS 100 Given 0 08/09/2020 10:38 AM TOE STRIPPER 1 g ml bag for ADULT or [...] (ANCEF) intermittent infusion 2 g in Given 8:37 AM TOE STRIPPER 2 g 100 mL dextrose PRE-MIX Routine, 2 g, Intravenous, PRE-OP/PRE-PROCEDURE, Starting on Sat08/09/20 at 0650, For 1 dose, Give first dose within 1 hour PRIOR to incision. If patient weight is greater than or equal to 120 kg increase dose to 3 g., Indications: Perioperative Pharmacoprophylaxis, Pre-procedure dexamethasone (DECADRON) injection Given 08/09/2020 8:23 AM TOE STRIPPER 4 mg Intravenous, PRN, Administer over 1 Minutes, Starting on Sat08/09/20 at 0823, Anesthesia Intra-op dexmedetomidine (PRECEDEX) 4 mcg/mL bolu s New Bag 08/09/2020 1:32 PM TOE STRIPPER 12 mcg Intravenous, CONTINUOUS PRN, Starting on Sat08/09/20 at 1332, Anesthesia Intra-op ePHEDrine injection Given 08/09/2020 11:36 AM TOE STRIPPER 5 mg Intravenous, PRN, Starting on Sat08/09/20 at 0914, Anesthesia Intra-op Given 08/09/2020 9:14 AM TOE STRIPPER 5 mg fentaNYL (PF) (SUBLIMAZE) injection Given 08/09/2020 8:22 AM TOE STRIPPER 50 mcg Intravenous, PRN, Administer over 3-5 Minutes, Starting on Sat08/09/20 at 0822, Anesthesia Intra-op HYDROmorphone (DILAUDID) injection Given 08/09/2020 12:35 PM TOE STRIPPER 0.25 mg Intravenous, PRN, Starting on Sat08/09/20 at 1235, Anesthesia Intra-op ketamine (KETALAR) injection Given 08/09/2020 12:05 PM TOE STRIPPER 10 mg PRN, Administer over 2-5 Minutes, Starting on Sat08/09/20 at 0823, Anesthesia Intra-op Given 08/09/2020 11:08 AM TOE STRIPPER 10 mg Given 08/09/2020 9:54 AM TOE STRIPPER 10 mg lactated ringers infusion Restarted 08/09/2020 11:33 AM TOE STRIPPER Intravenous, CONTINUOUS PRN, Anesthesia Intra-op, Starting on Sat08/09/20 at 0818, Until Sat08/09/20 at 1337 Restarted 08/09/2020 9:47 AM TOE STRIPPER New Bag 08/09/2020 8:18 AM TOE STRIPPER lactated ringers infusion New Bag 08/09/2020 8:30 AM TOE STRIPPER 75 mL/hr Intravenous, CONTINUOUS PRN, Anesthesia Intra-op, Starting on Sat08/09/20 at 0830, Until Sat08/09/20 at 1337 lidocaine 2% injection (MDV) Given 08/09/2020 8:22 AM TOE STRIPPER 50 mg Intravenous, PRN, Starting on Sat08/09/20 at 0822, Anesthesia Intra-op lidocaine 400 mg in D5W 50 mL New Bag 08/09/2020 8:45 AM TOE STRIPPER 1 mg/kg/hr 6.8 mL/hr (ADULT STD) - for ANALGESIA 1 mg/kg/hr ? 54.7 kg (6.8375 mL/hr, rounded to 6.8 mL/hr), Intravenous, CONTINUOUS, Starting on Sat08/09/20 at 0830, Provider to titrate. For use in OR ONLY, Intra-procedure midazolam (VERSED) injection Given 08/09/2020 11:58 AM TOE STRIPPER 1 mg Administer over 2 Minutes, PRN, Starting on Sat08/09/20 at 1158, Anesthesia Intra-op ondansetron (ZOFRAN) injection Given 08/09/2020 12:08 PM TOE STRIPPER 4 mg Intravenous, PRN, Administer over 2-5 Minutes, Starting on Sat08/09/20 at 1208, Anesthesia Intra-op phenylephrine (ALYCE-SYNEPHRINE) injection Bolus 08/09/2020 12:25 PM TOE STRIPPER 50 mcg Intravenous, CONTINUOUS PRN, Starting on Sat08/09/20 at 0914, Anesthesia Intra-op Bolus 08/09/2020 12:09 PM TOE STRIPPER 50 mcg Bolus 08/09/2020 11:30 AM TOE STRIPPER 100 mcg phenylephrine 0.1 mg/mL Rate/Dose 08/09/2020 0.5 mcg/kg/min 15.7 mL/ hr infusion (mcg/kg/min) Change 11:28 AM TOE STRIPPER CONTINUOUS PRN, Starting on Sat08/09/20 at 0915, Anesthesia Intra-op Rate/Dose Change 08/09/2020 11:10 AM TOE STRIPPER 0.4 mcg/kg/min 12.6 mL/hr Restarted 08/09/2020 10:30 AM TOE STRIPPER 0.3 mcg/kg/min 9.4 mL/hr propofol (DIPRIVAN) infusion New Bag 08/09/2020 9:15 AM 25 mcg/kg/min 7.9 mL/hr Intravenous, CONTINUOUS PRN, TOE STRIPPER Starting on Sat08/09/20 at 0915, Anesthesia Intra-op propofol (DIPRIVAN) injection 10 mg/mL v ial Given 08/09/2020 11:58 AM TOE STRIPPER 40 mg Intravenous, PRN, Starting on Sat08/09/20 at 0823, Anesthesia Intra-op Given 08/09/2020 8:23 AM TOE STRIPPER 100 mg remifentanil (ULTIVA) 500 Rate/Dose Change 08/09/2020 11:29 0.1 mcg /kg/min 6.6 mL/hr mcg in sodium chloride AM TOE STRIPPER 0.9 % 10 mL infusion 0.05-0.1 mcg/kg/min ? 54.7 kg (3.282-6.564 mL/hr, rounded to 3.3-6.6 mL/hr), Intravenous, CONTINUOUS, Starting on Sat08/09/20 at 1130, Provider to titrate, Intra-procedure New Bag 08/09/2020 11:17 AM TOE STRIPPER 0.05 mcg/kg/min 3.3 mL/hr rocuronium injection Given 08/09/2020 11:58 AM TOE STRIPPER 15 mg Intravenous, PRN, Starting on Sat08/09/20 at 0824, Anesthesia Intra-op Given 08/09/2020 9:10 AM TOE STRIPPER 10 mg Given 08/09/2020 8:24 AM TOE STRIPPER 40 mg sugammadex (BRIDION) injection Given 08/09/2020 12:54 PM TOE STRIPPER 120 mg PRN, Starting on Sat08/09/20 at 1254, Anesthesia Intra-op tranexamic acid (CYKLOKAPRON) 1,630 mg in New Bag 2020 8:31 AM TOE STRIPPER 1,630 mg sodium chloride 0.9 % 50 mL bolus 1,630 mg (rounded from 1,629 mg = 30 mg/kg ? 54.3 kg), Intravenous, ONCE, On Sat08/09/20 at 0700, For 1 dose, Prior to incision. Each 1 gram to be infused over 10 minutes., Pre-procedure tranexamic acid (CYKLOKAPRON) New Bag 08/09/2020 9:01 AM TOE STRIPPER 1 0 mg/kg/hr 27.2 mL/hr 5 g in sodium chloride 0.9 % 250 mL infusion 10 mg/kg/hr ? 54.3 kg (27.15 mL/hr, rounded to 27.2 mL/hr), Intravenous, CONTINUOUS, Starting on Sat08/09/20 at 0700, 10 mg/kg/hr = 27.2 ml/hr Throughout the case., Intra-procedure documented in this encounter Care Teams Electric Welder Helper Relationship Specialty Start Date End Date Josh Carrero PCP - General Family Medicine 08/09/[address] [address] Julian Spencer MD MD Orthopedics 03/08/[address] [phone] Mariposa Atwood Assigned PCP 04/29/20 11/12/20 MD [facility] [address] [facility] [place] [place] [address] Julian Spencer MD Assigned Musculoskeletal 05/27/[address] Provider [place], [place] [phone] Eugenio Finney Assigned Pediatric 06/19/2005/07 MD David Specialist Provider [address] [facility] 96 [place] [address] documented as of this encounter
--- OUTSIDE RECORDS SUMMARY | 2022-07-02 21:50 | XMS_ITS | Encounter Summary ---
:2001 Author Organization [place] Address [address] [facility] [place] [address] Care Team Providers Name Role Phone Catina Ha MD Unavailable Mariposa Atwood MD Unavailable [phone] Catina Ha MD Unavailable Eugenio Finney MD Unavailable [phone] Josh Carrero Primary Care Provider Reason [...] Instrumentation Thoracic 3 - Lumbar 4 [address] [place] [address] Phone: Fax: Referral ID Status Reason Start Date Expiration Date Visits Requ ested Visits Authorized [id number] 1 1 Encounter Details Date Type Department Care Team Description 08/09/2020 Surgery [facility] Catina Ha al tracking system PeriOp Services MD Darell fusion spine posterior [address] [facility] [address] thoracic child three+ [facility] [address] [facility] [phone] Surgery Details Date/Time Status Location OR Service [...] Special Needs Type & Cross 2 units. [place] Platelet D isorder. See Dr Atwood's plan [...] with No / Unsure 08/09/2020 6:36 AM PHOTOGRAPHER MOTION PICTURE someone who was confirmed or suspected to have Coronavirus / COVID-19? documented as of this encounter Last Filed Vital Signs Vital Sign Reading Time Taken Comments Blood Pressure 121/73 08/09/2020 6:50 AM PHOTOGRAPHER MOTION PICTURE Pulse 80 08/09/2020 6:50 AM PHOTOGRAPHER MOTION PICTURE Temperature 37.2 ??C (99 ??F) 08/09/2020 6:50 AM PHOTOGRAPHER MOTION PICTURE Respiratory Rate 16 08/09/2020 6:50 AM PHOTOGRAPHER MOTION PICTURE Oxygen Saturation 98% 08/09/2020 6:50 AM PHOTOGRAPHER MOTION PICTURE Inhaled Oxygen Concentration - - Weight 54.7 kg (120 lb 9.5 oz) 08/09/2020 6:50 AM PHOTOGRAPHER MOTION PICTURE Height 160 cm (5' 3) 08/09/2020 6:50 AM PHOTOGRAPHER MOTION PICTURE Body Mass Index 21.36 08/09/2020 6:50 AM PHOTOGRAPHER MOTION PICTURE documented in this encounter Discharge Summaries Darian Nguyen MD - 08/16/2020 1:36 PM CST [facility]?? Discharge Summary Pediatrics General Date [...] then she was seeing Dr. Ferrari at [place] for pain. However, Dakota was very frustrated [...] negative, and she was continued on her CONCRETE CONVEYOR OPERATOR OCP (norethindrone-ethinyl estradiol). Poor bone healing: Endocrinology [...] was started on low dose ketamineinfusion, fenanyl RUG SETTER VELVET pump without a basal rate, lyrica (pregabalin), and olanzepine. She was also on scheduled valium for muscle relaxation and scheduled tylenol, Under this regimen her pain was much better managed and she was able to start PT and walking around the unit on POD#2. Transferred to the general pediatric floor on 08/12/20. The fentanyl RUG SETTER VELVET did not help her pain and she [...] admission. Ed Bartholomew MD PGY-1, Pediatrics Pager: [phone] Attestation: This patient has been seen and evaluated by me today, and management was discussed with the residentphysicians and nurses. I have reviewed today's vital signs, medications, labs and imaging (as pertinent). I agree with all the findings and plan in this note. Total time: >30 minutes; More than 50% of my time was spent in direct, juqa-ld-pokt counseling with this patient/parent on the issues listed in the assessment/plan section above. Darian Nguyen MD, Pediatric Hospitalist, Pager: [phone] Significant Results and Procedures 08/09/20: Reinsert Segmental [...] lifting >10 lbs x 6 weeks. Adult [facility] Follow-up and recommended labs and tests Follow [...] care physician within 7-10 days. Appointments on [place] and/or [facility] (with [facility] or [facility] provider or service). Call [phone] if you haven't heard regarding these appointments [...] off for 12 hours. Repeat daily.Disp-30 patch, [id number] naloxone (NARCAN) 4 MG/0.1ML nasal spray [place] 1 spray (4 mg) into one nostril [...] Labs Lab Test 06/20/20 0840 TSH 3.01 OGRAPHER MOTION PICTURE documented in this encounter Discharge Instructions Discharge [...] are drawn in 3 months time ?? OGRAPHER MOTION PICTURE documented in this encounter Medications at Time [...] (ATARAX) 10 TAKE ONE TABLET BY 0 06/062020 MG tablet MOUTH EVERY 8 HOURS NEEDED FOR ANXIETY Lidocaine (LIDOCARE) 4 % Place 1-2 patches on 30 patch 3 0 08/15/2020 PatchIndications: Acute skin over painful post-operative pain, area. Leave on for Chronic musculoskeletal 12 hours, then keep pain off for 12 hours. Repeat daily. naloxone (NARCAN) 4 [place] 1 spray (4 mg) 0.2 mL 0 [...] done. Victor Hugo Talbot MD PGY5 Pager: [phone] FOLLOWUP: Future Appointments Date Time Provider Department Center 09/22/2020 8:30 AM Catina Ha MD [facility] 10/27/2020 2:30 PM Catina Ha MD [facility] OGRAPHER MOTION PICTURE Azar Cruz MD - 08/15/2020 10:57 PM CST [facility]?? Inpatient Progress Note - Hematology [...] her symptoms were consistent with the rare [place] platelet disorder, genetic testing was not consistent [...] will contact family. Azar Cruz MD Pediatric Customer Account Manager Division of Pediatric Hematology/Oncology [facility] Pager: [facility]?? Interval History Dakota is feeling [...] improvement. This event has precipitated workup at [facility], [place], and [facility] where she was found to have [...] two ago was thought to possibly be [place] platelet disorder (targeted genetictesting was negative). She [...] information if needed. (copied from her primary inspector tester sorter's recent note Aug 2020) Dad with nosebleeds, but no surgeries (orphaned so no other history) Mom with heavy periods, no bruising, no issues with surger Maternal Aunt with Type IIa vWD from [facility] records Medications Medications Prior to [...] 60 minutes 6.1 0 - 15 % OGRAPHER MOTION PICTURE Janessa Christie CCLS - 08/15/2020 2:21 PM [...] endzone. Patient social and engaged with this functional tester typewriters. Provided patient with adult coloring and Phase 10 to normalize hospital environment and promote positive coping. No further CFL needs at this time. Anxiety Low Anxiety Major Change/Loss/Stressor/Fears medical condition, self Techniques to [place] with Loss/Stress/Change family presence; peers; cell phone; social media Special Interests Arts and [employer] Outcomes/Follow Up Continue to Follow/Support;Provided Materials (ZTV craft cabin kit, adult coloring, phase 10) OGRAPHER MOTION PICTURE Estee Braden CNP - 08/15/2020 11:56 AM CST Images from the original note were not included. Pediatric Integrative Medicine Subsequent Consultation Primary Care provider: Josh Carrero Consulting Provider: Rosalind Tavera MD Reason for consultation: I was asked to see this patient for anxiety and dfatx-vq-fotxaye pain. Assessment: Dakota is a 20 year [...] to follow-up with our team in the [facility].Please have family call [facility] at [phone] to arrange for this appointment. Follow-up: We [...] in hearing about a relaxation strategy to mold closer helper in supporting her pain medications and [...] IEstee, spent a total of 35 minutes [id number]-wu-[id number] and on the unit today. Over 50% of this time was spent counseling the patient-family regarding strategies for relaxation to help reduce discomfort and back pain and coordinating care with PACCT and bedside RN. Estee Braden, RELATIONS MGR, CPNP, HNB- Pediatric Nurse Practitioner Pediatric Integrative Health & Wellbeing OGRAPHER MOTION PICTURE Jaiden Bonilla MD - 08/15/2020 7:00 AM [...] PO Q6H for muscle spasm?? - Hold CONCRETE CONVEYOR OPERATOR flexeril 5 mg BID -??neuro checks Q4H [...] - Continue lidocaine patch Psych: Anxiety - CONCRETE CONVEYOR OPERATOR sertraline 100 mg daily -??Discontinue IV atarax 25 mg Q6H??PRN - Discontinue Zyprexa at bedtime Heme/onc?? 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 Respiratory?? Comfortable [...] Dr. Chad Kilgore MD General Pediatrics Service [facility]?? Interval History No acute events [...] Dressing over spine with minimal blood stains OGRAPHER MOTION PICTURE Antione, Victor Hugo Cole MD - 08/15/2020 6:39 AM CST Orthopaedic [...] done. Victor Hugo Talbot MD PGY5 Pager: [phone] FOLLOWUP: Future Appointments Date Time Provider Department Center 09/22/2020 8:30 AM Catina Ha MD [facility] 10/27/2020 2:30 PM Catina Ha MD [facility] Estee Robledo MD - 08/14/2020 7:28 AM [...] Estee Dick MD Orthopaedic Surgery, PGY4 Pager: [phone] FOLLOWUP: Future Appointments Date Time Provider Department Center 09/22/2020 8:30 AM Catina Ha MD [facility] 10/27/2020 2:30 PM Catina Ha MD [facility] OGRAPHER MOTION PICTURE Jaiden Bonilla MD - 08/14/2020 7:23 AM [...] having BM's. Pain under better control with [place] and prn Fentanyl, remains on Ketamine. Lungs [...] while on lidocaine infusion, now on fentanyl RUG SETTER VELVET and ketamine drip with sub-optimal pain control. She is otherwise clinically stable. Today's changes: -Discontinue fentanyl RUG SETTER VELVET -Start fentanyl IV Q2H PRN -Added lidocaine patch -Stop IVF Neuro/Ortho Scoliosis POD#5 s/p removal of hardware (segmental spinal instrumentation T3-L4) and pseudoarthrosis repair (day of surgery 08/09/20 -??Valium 2.5 mg IV Q6H for muscle spasm?? - Hold CONCRETE CONVEYOR OPERATOR flexeril 5 mg BID -??neuro checks Q4H - hemovac drain removed on 08/12 - no activity/HOB restrictions ?? Pain - acute on poorly-controlled chronic pain/anxiety - PACCT consult, appreciate recommendations - Fentanyl RUG SETTER VELVET discontinued - Fentanyl 25 mcg Q2H PRN started - Pregabalin 75 mg Q12H - Commence NORCO 5-325 mg PO Q4H/PRN per PACCT recs (can go up on [place] to 10- 325 mg if more pain per PACCT) - Continue Ketamine 3mg/hr infusion, try to discontinue 08/15 ?? Psych: Anxiety - CONCRETE CONVEYOR OPERATOR sertraline 100 mg daily -??IV atarax 25 mg Q6H??PRN - Olanzepine 5mg at bedtime Heme/onc?? 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 Respiratory?? Comfortable [...] Dr. Chad Steel MD General Pediatrics Service [facility]?? Interval History Received fentanyl bolus on RUG SETTER VELVET x3 overnight. Getting [place] every 4 hours. Mom and Dakota feel [...] Dressing over spine with minimal blood stains OGRAPHER MOTION PICTURE Jaiden Bonilla MD - 08/13/2020 2:48 PM [...] loose. Still with back pain, on Fentanyl RUG SETTER VELVET and Ketamine. Plan to start oral pain [...] while on lidocaine infusion, now on fentanyl RUG SETTER VELVET and ketamine drip with sub-optimal pain control. She is otherwise clinically stable. Neuro/Ortho Scoliosis POD#3 s/p removal of hardware (segmental spinal instrumentation T3-L4) and pseudoarthrosis repair (day of surgery 08/09/20 -??Valium 2.5 mg IV Q6H for muscle spasm?? - Hold CONCRETE CONVEYOR OPERATOR flexeril 5 mg BID -??neuro checks Q4H - hemovac drain removed on 08/12 - no activity/HOB restrictions ?? Pain - acute on poorly-controlled chronic pain/anxiety - PACCT consult, appreciate recommendations - Fentanyl RUG SETTER VELVET - Pregabalin 75 mg Q12H - Discontinue scheduled Tylenol - Commence NORCO 5-325 mg PO Q4H/PRN per PACCT recs - Continue Ketamine 3mg/hr infusion ?? Psych: Anxiety - CONCRETE CONVEYOR OPERATOR sertraline 100 mg daily -??IV atarax 25 mg Q6H??PRN - Olanzepine 5mg at bedtime Heme/onc?? 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 Respiratory?? Comfortable [...] Dr. Chad Kilgore MD General Pediatrics Service [facility]?? Interval History Pain was poorly controlled on continuous ketamine and fentanyl RUG SETTER VELVET overnight, she had several episodes of loose [...] Dressing over spine with minimal blood stains OGRAPHER MOTION PICTURE Estee Dick MD - 08/13/2020 7:18 AM [...] Estee Dick MD Orthopaedic Surgery, PGY4 Pager: [phone] FOLLOWUP: Future Appointments Date Time Provider Department Center 09/22/2020 8:30 AM Catina Ha MD [facility] 10/27/2020 2:30 PM Catina Ha MD [facility] OGRAPHER MOTION PICTURE Ruby Goel RN - 08/12/2020 2:15 PM CST Family education completed: Yes Report given to: Marquis Time of transfer: 11:30 Transferred to: Unit 6 Belongings sent:Yes Family updated:Yes Reviewed pertinent information from [facility] (EMAR/Clinical Summary/Flowsheets):Yes Head-to-toe assessment with receiving RN:Yes Recommendations (e.g. Family needs/recent issues/things to watch for): Patient's VSS and remained afebrile. Reporting pain an 8-9. PRN fentanyl x1. Patient voided x2 and BM x2. PO intake well tolerated. Mom at bedside and updated on POC> OGRAPHER MOTION PICTURE Azar Cruz MD - 08/12/2020 1:25 PM CST [facility]?? Inpatient Progress Note - Hematology [...] her symptoms were consistent with the rare [place] platelet disorder, genetic testing was not consistent [...] with any questions. Azar Cruz MD Pediatric Customer Account Manager Division of Pediatric Hematology/Oncology [facility] Pager: [facility]?? Interval History Dakota has done [...] improvement. This event has precipitated workup at [facility], [place], and [facility] where she was found to have [...] two ago was thought to possibly be [place] platelet disorder (targeted genetictesting was negative). She [...] information if needed. (copied from her primary inspector tester sorter's recent note Aug 2020) Dad with nosebleeds, but no surgeries (orphaned so no other history) Mom with heavy periods, no bruising, no issues with surger Maternal Aunt with Type IIa vWD from [facility] records Medications Medications Prior to [...] 60 minutes 6.9 0 - 15 % OGRAPHER MOTION PICTURE Jaiden Bonilla MD - 08/12/2020 11:33 AM CST [facility]?? Transfer acceptance note - General [...] while on lidocaine infusion, now on fentanyl RUG SETTER VELVET and ketamine drip with sub-optimal pain control. She has ongoing intermittent orthostatic hypotension and is onbowel regimen for constipation. She is otherwise clinically stable. Neuro/Ortho Scoliosis POD#3 s/p removal of hardware (segmental spinal instrumentation T3-L4) and pseudoarthrosis repair (day of surgery 08/09/20 - Follow up standing x-ray on 08/12 -??Valium 2.5 mg IV Q6H for muscle spasm?? - Hold CONCRETE CONVEYOR OPERATOR flexeril 5 mg BID -??neuro checks Q4H - hemovac drain removed on 08/12 - no activity/HOB restrictions ?? Pain - acute on poorly-controlled chronic pain/anxiety - PACCT consult, appreciate recommendations - Fentanyl RUG SETTER VELVET - Pregabalin 75 mg Q12H -Tylenol 650 mg PO Q6H - Continue Ketamine 3mg/hr infusion ?? Psych: Anxiety - CONCRETE CONVEYOR OPERATOR sertraline 100 mg daily -??IV atarax 25 [...] hypotension. Heme/onc?? 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 Respiratory?? Comfortable [...] Dr. Chad Kilgore MD General Pediatrics Service [facility]?? Interval History She was transferred [...] Cranial nerves II- XII are grossly intact. Eleanor Arias MD - 08/12/2020 8:34 AM CST [facility]?? Pediatric Intensive Care Progress Note [...] IV Q6H - muscle relaxant - hold CONCRETE CONVEYOR OPERATOR flexeril 5 mg BID - neuro checks Q4H - hemovac drain removed on 08/12 - no activity/HOB restrictions Pain - acute on poorly-controlled chronic pain/anxiety - PACCT consult, appreciate recommendations - please see 08/[address] Gonzalez for details. - Switch to Fentanyl RUG SETTER VELVET: 0mcg/hr basal rate; 4 bumps per hour of 25mcg (max 100mcg per hour), [id number] bolus when starting pump. If becomes too [...] - for antiemetic and anxiolytic properties - CONCRETE CONVEYOR OPERATOR sertraline 100 mg daily - IV atarax [...] ?? 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 - Endocrinolgy consulted, appreciate recs - CONCRETE CONVEYOR OPERATOR OCP - CONCRETE CONVEYOR OPERATOR vitamin D 125mcg PO daily ? Diet: [...] attending physician, Dr. Dooley. Vivi Wong, DO [facility] Pediatric Resident [address] Pager # [phone] Fellow Attestation: ?? Dakota Casiano??is a 20 [...] decisions made today included: continue to hold RUG SETTER VELVET opioid as able, space hematologic labs, PT/OT [...] 60 minutes 6.9 0 - 15 % OGRAPHER MOTION PICTURE Victor Hugo Talbot MD - 08/12/2020 5:45 [...] [ ] Post xrays done. Victor Hugo aTlbot MD PGY5 Pager: [phone] Please page me directly with any questions/concerns during regular weekday hours before 5pm. If there is no response, if it is a weekend, or if it is during evening hours then please page the orthopaedic surgery resident buttonhole marker as listed on [facility] call schedule under the orthopaedics tab. FOLLOWUP: Future Appointments Date Time Provider Department Center 09/22/2020 8:30 AM Catina Ha MD [facility] 10/27/2020 2:30 PM Catina Ha MD [facility] OGRAPHER MOTION PICTURE Azar Cruz MD - 08/11/2020 3:27 PM [...] with the team. Azar Cruz MD Pediatric Customer Account Manager Division of Pediatric Hematology/Oncology [facility] Pager: OGRAPHER MOTION PICTURE Eleanor Dooley MD - 08/11/2020 3:12 PM CST [facility]?? Pediatric Intensive Care Progress Note [...] ?? 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 - Endocrinolgy consulted, appreciate recs - CONCRETE CONVEYOR OPERATOR OCP - CONCRETE CONVEYOR OPERATOR vitamin D 125mcg PO daily ?? Neuro/Ortho Scoliosis POD#2 s/p removal of hardware (segmental spinal instrumentation T3-L4) and pseudoarthrosis repair (day of surgery 08/09/20) - Stop morphine gtt - Keep morphine 0.5mg PRN to cover while switching - Stop lidocaine gtt - ortho will order follow up x-rays - valium 2.5 mg IV Q6H - hold CONCRETE CONVEYOR OPERATOR flexeril 5 mg BID - neuro checks Q4H - hemovac drain removed - no activity/HOB restrictions Pain - acute on poorly-controlled chronic pain/anxiety - PACCT consult, appreciate recommendations - Tylenol 650 mg PO Q6H - Switch to Dilaudid RUG SETTER VELVET (0.2mg/hr, 0.1mg bumps) - Start Ketamine 3mg/hr infusion - - Olanzepine 2.5-5.0mg at bedtime - for antiemetic and anxiolytic properties. ?? Psych: Anxiety - CONCRETE CONVEYOR OPERATOR sertraline 100 mg daily - IV atarax [...] attending physician, Dr. Dooley. Vivi Wong, DO [facility] Pediatric Resident [address] Pager # [phone] Fellow Attestation: ?? Dakota Casiano is a [...] ketamine gtt and add gabapentin/zyprexa, transition to RUG SETTER VELVET dilaudid, increase bowel regimen Procedures that will [...] Fibrinogen 515 (H) 200 - 420 mg/dL OGRAPHER MOTION PICTURE Criselda Lemus, OTR - 08/11/2020 11:06 AM [...] Evaluation Time Total Evaluation Time (Minutes) 5 OGRAPHER MOTION PICTURE Evelyn Grayson RD - 08/11/2020 9:50 AM [...] mcg Vit D daily ASSESSED NUTRITION NEEDS FACE BOSS/age: 38 kcal/kg and 0.8 g/kg of protein BMR via [place] (1296) x 1.2-1.4 = 1555 - 1814 kcal/day Estimated Energy Needs: 28 - 33 kcal/kg Estimated Protein Needs: 1-1.2 g/kg Estimated Fluid Needs: 2,194 mL baseline or per medical team in ICU Micronutrient Needs: FACE BOSS/age NUTRITION STATUS VALIDATION Patient does not meet [...] Grayson RDN, LD Pediatric Clinical Dietitian Pager: [phone] OGRAPHER MOTION PICTURE Victor Hugo Talbot MD - 08/11/2020 6:14 AM CST Orthopaedic Surgery Progress Note: 08/11/2020 Subjective: Ongoing back pain. At times, difficult to manage. Feels well managed this AM. No symptoms in legs. Ongoing low HV output. Passing a little flatus, -BM. Voiding w/o [place]. Yarnell lightheaded when standingx2. Objective: BP 104/58 Pulse [...] done. Victor Hugo Talbot MD PGY5 Pager: [phone] Please page me directly with any questions/concerns during regular weekday hours before 5pm. If there is no response, if it is a weekend, or if it is during evening hours then please page the orthopaedic surgery resident buttonhole marker as listed on [facility] call schedule under the orthopaedics tab. FOLLOWUP: Future Appointments Date Time Provider Department Center 09/22/2020 8:30 AM Catina Ha MD [facility] 10/27/2020 2:30 PM Catina Ha MD [facility] OGRAPHER MOTION PICTURE Azar Cruz MD - 08/10/2020 9:41 PM CST [facility]?? Inpatient Progress Note - Hematology [...] her symptoms were consistent with the rare [place] platelet disorder, genetic testing was not consistent [...] her mom today. Azar Cruz MD Pediatric Customer Account Manager Division of Pediatric Hematology/Oncology [facility] Pager: [facility]?? Interval History Dakota said she [...] improvement. This event [facility] [place] where she was found to have [...] two ago was thought to possibly be [place] platelet disorder (targeted genetictesting was negative). She [...] information if needed. (copied from her primary inspector tester sorter's recent note Aug 2020) Dad with nosebleeds, but no surgeries (orphaned so no other history) Mom with heavy periods, no bruising, no issues with surger Maternal Aunt with Type IIa vWD from [facility] records Medications Medications Prior to [...] Pulse: 71 Resp: 19 SpO2: 99 % [id number]: None (Room air) Weight: 120 lbs 9.47 [...] Routine within 24 hrs; Call back #: [phone]; anxiety, acute and chronic pain; Profile Saw Operator may enter orders: Yes; Requesting provider? Attending physician Narrative Estee Braden CNP 08/10/2020 2:30 PM Pediatric Integrative Medicine Initial Consultation Primary Care provider: Josh Carrero Consulting Provider: Rosalind Tavera MD Reason for consultation: I was asked to see this patient for anxiety and cizjp-zt-teflmww pain. Assessment: Dakota is a 20 year [...] IEstee, spent a total of 20 minutes [id number] and on the unit today. Over 50% of this time was spent counseling the patient-family regarding strategies for nausea and relaxation and coordinating care with primary team and bedside RN. Estee Braden, RELATIONS MGR, CPNP, HNB- Pediatric Nurse Practitioner Pediatric Integrative [...] 60 minutes 7.3 0 - 15 % OGRAPHER MOTION PICTURE Eleanor Dooley MD - 08/10/2020 3:28 PM CST [facility]?? Pediatric Intensive Care Progress Note [...] ?? 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 - Endocrinolgy consulted, appreciate recs - CONCRETE CONVEYOR OPERATOR OCP - CONCRETE CONVEYOR OPERATOR vitamin D 125mcg PO daily ?? Neuro/Ortho Scoliosis POD#1 s/p removal of hardware (segmental spinal instrumentation T3-L4) and pseudoarthrosis repair (day of surgery 08/09/20) Pain, acute on chronic - PACCT consult - morphine gtt @ 0.5 mg/hr + 0.5 mg Q2H PRN (patient prefers over RUG SETTER VELVET) -- consider switching to dilaudid instead of morphine if remains too sleepy and/or pain not sufficiently treated with morphine. - lidocaine infusion @ 1 mg/kg/hr (plan to keep until 8 am on POD#2) - ortho will order follow up x-rays - valium 2.5 mg IV Q6H - hold CONCRETE CONVEYOR OPERATOR flexeril 5 mg BID - tylenol 650 mg PO Q6H - neuro checks Q4H - cortez in place - monitor drain output - should be <100 mL/day per ortho - PT/OT consult - no activity/HOB restrictions ?? Psych: Anxiety - CONCRETE CONVEYOR OPERATOR sertraline 100 mg daily - IV atarax [...] attending physician, Dr. Dooley. Vivi Wong, DO [facility] Pediatric Resident PL-2 Pager # [phone] Fellow Attestation: Dakota Casiano is a 20 [...] Routine within 24 hrs; Call back #: [phone]; anxiety, acute and chronic pain; Profile Saw Operator may enter orders: Yes; Requesting provider? Attending physician Narrative Estee Braden CNP 08/10/2020 2:30 PM Pediatric Integrative Medicine Initial Consultation Primary Care provider: Josh Carrero Consulting Provider: Rosalind Tavera MD Reason for consultation: I was asked to see this patient for anxiety and ytbrd-xd-ojgubkk pain. Assessment: Dakota is a 20 year [...] Braden, spent a total of 20 minutes zeer-vk-zylk and on the unit today. Over 50% of this time was spent counseling the patient-family regarding strategies for nausea and relaxation and coordinating care with primary team and bedside RN. Estee Braden, RELATIONS MGR, CPNP, HNB- Pediatric Nurse Practitioner Pediatric Integrative Health & Wellbeing OGRAPHER MOTION PICTURE Berenice Edgar, PT - 08/10/2020 12:48 PM [...] pain Strength Strength Comments B LE's grossly 5/ Bed Mobility Comment (Bed Mobility) ModA for [...] Skin Color/Characteristics pale Skin Integrity bruised (ecchymotic);drain/device(s);incision OGRAPHER MOTION PICTURE Victor Hugo Talbot MD - 08/10/2020 6:58 [...] done. Victor Hugo Talbot MD PGY5 Pager: [phone] Please page me directly with any questions/concerns during regular weekday hours before 5pm. If there is no response, if it is a weekend, or if it is during evening hours then please page the orthopaedic surgery resident buttonhole marker as listed on [facility] call schedule under the orthopaedics tab. FOLLOWUP: Future Appointments Date Time Provider Department Center 09/22/2020 8:30 AM Catina Ha MD [facility] 10/27/2020 2:30 PM Catina Ha MD [facility] OGRAPHER MOTION PICTURE Merissa Pradhan MD - 08/09/2020 9:00 PM [...] PHV, PCO2V, PO2V, HCO3V in the last 07771 hours. Recent Labs Lab Test 08/10/20 0400 08/09/20 2200 WBC 13.8* 12.1* HGB 10.1* 10.4* HCT 29.9* 30.3* MCV 90 90 RDW 12.3 12.1 PLT 202 211 Lab Results Component Value Date INR 1.15 08/10/2020 , Lab Results Component Value Date PTT 28 08/10/2020 Additions/changes to plan include: 1) follow hgb/TEG per inspector tester sorter. 2) ongoing pain control effective. 3) PACTT to see in am I spent a total of 35 minutes providing critical care services at the bedside, and on the critical care unit, evaluating the patient, directing care and reviewing laboratory values and radiologic reports for Dakota Casiano. Merissa Pradhan MD OGRAPHER MOTION PICTURE Victor Hugo Talbot MD - 08/09/2020 2:24 [...] current cares. Victor Hugo Talbot MD PGY5 OGRAPHER MOTION PICTURE documented in this encounter H&P Notes Eleanor Dooley MD - 08/09/2020 3:15 PM CST [facility]?? History and Physical - Pediatric [...] >90 Heme/onc #Complex platelet disorder Similar to [place] platelet disorder but genetic testing not consistent [...] disorder. - Endocrinolgy consulted, appreciate recs - CONCRETE CONVEYOR OPERATOR OCP - CONCRETE CONVEYOR OPERATOR vitamin D 125mcg PO daily Neuro/Ortho #Scoliosis #POD#0 s/p removal of hardware (segmental spinal instrumentation T3-L4) and pseudoarthrosis repair #Pain, acute on chronic - morphine gtt @ 0.5 mg/hr + 1 mg Q2H PRN (patient prefers over RUG SETTER VELVET) - lidocaine infusion @ 1 mg/kg/hr (plan to keep until 8 am on POD#2) - ortho will order follow up x-rays - valium 2.5 mg IV Q6H - hold CONCRETE CONVEYOR OPERATOR flexeril 5 mg BID - tylenol 650 mg PO Q6H - neuro checks Q4H - cortez in place - monitor drain output - should be <100 mL/day per ortho - PT/OT consult - no activity/HOB restrictions - consult PACCT in AM Psych: #Anxiety - CONCRETE CONVEYOR OPERATOR sertraline 100 mg daily - IV atarax [...] then she was seeing Dr. Ferrari at [place] for pain. However, Dakota was very frustrated [...] History Maternal aunt: type IIa vWD MFG: Haitian Tuvaluan, bleeding issues Prior to Admission Medications Prior [...] Pulse: 94 Resp: 21 SpO2: 99 % U2Owyqro: None (Room air) Weight: 120 lbs 9.47 [...] 149* 126* ALBUMIN 3.5 -- -- -- OGRAPHER MOTION PICTURE documented in this encounter Consult Notes Estee Braden CNP - 08/10/2020 1:45 PM CSTAssociated Order(s): PEDS INTEGRATIVE HEALTH IP CONSULT Images from the original note were not included. Pediatric Integrative Medicine Initial Consultation Primary Care provider: Josh Carrero Consulting Provider: Rosalind Tavera MD Reason for consultation: I was asked to see this patient for anxiety and evsuy-yt-padukel pain. Assessment: Dakota is a 20 year [...] lb 9.5 oz) (38 %, Z= -0.30)* 12/17/20 54.3 kg (119 lb 9.6 oz) (36 [...] Braden, spent a total of 20 minutes fhch-hm-itbf and on the unit today. Over 50% of this time was spent counseling the patient-family regarding strategies for nausea and relaxation and coordinating care with primary team and bedside RN. Estee Braden, RELATIONS MGR, CPNP, HNB-BC Pediatric Nurse Practitioner Pediatric Integrative Health & Wellbeing OGRAPHER MOTION PICTURE Azar Cruz MD - 08/09/2020 9:37 PM CSTAssociated Order(s): PEDS HEM/ONC IP CONSULT [facility]?? Consult Note - Hematology Date [...] her symptoms were consistent with the rare [place] platelet disorder, genetic testing was not consistent [...] during the procedure. Azar Cruz MD Pediatric Customer Account Manager Division of Pediatric Hematology/Oncology [facility] Pager: [facility]?? Chief Complaint Possible bleeding disorder [...] improvement. This event has precipitated workup at [facility], and [facility] where she was found to have [...] two ago was thought to possibly be [place] platelet disorder (targeted genetictesting was negative). She [...] information if needed. (copied from her primary inspector tester sorter's recent note Aug 2020) Dad with nosebleeds, but no surgeries (orphaned so no other history) Mom with heavy periods, no bruising, no issues with surger Maternal Aunt with Type IIa vWD from [facility] records Medications Medications Prior to [...] Pulse: 59 Resp: 14 SpO2: 99 % G8Nivodf: None (Room air) Weight: 120 lbs 9.47 [...] Antibody Screen Neg Test Valid Only At [facility] Specimen Expires 08/12/2020 Crossmatch Red Blood Cells Glucose Result Value Ref Range Glucose 75 70 - 99 mg/dL Blood component Result Value Ref Range Unit Number [id number] Blood Component Type Red Blood Cells Leukocyte Reduced Division Number 00 Status of Unit Ready for patient 08/09/2020 0857 Blood Product Code [id number] Unit Status GRADY Blood component Result Value Ref Range Unit Number [id number] Blood Component Type Red Blood Cells Leukocyte Reduced Division Number 00 Status of Unit Ready for patient 08/09/2020 0857 Blood Product Code [id number] Unit Status GRADY Arterial Panel Result Value [...] be read by a radiologist or a [place] non-radiologist provider. Renal Panel Result Value Ref [...] Routine within 24 hrs; Call back #: [phone] ext [phone]; hx of scoliosis with poor healing after multiple repairs, also has unknown platelet disorder; Profile Saw Operator may enter orders: Yes; Requesti... Narrative Inga Dolan MD 08/09/2020 5:28 PM [facility] Pediatric Endocrinology Consultation New Note Reason for [...] 2019. She also was seen at the [facility] where they felt that her symptoms [...] young woman who plays [employer] on her [employer] team. There is no family history of [...] past several years have been reviewed. Inga Dolna MD Professor and Sample Selector Pediatric Endocrinology and Diabetes Pager: [phone] Methicillin Resist/Sens S. aureus PCR Specimen: Nasal [...] 60 minutes 3.8 0 - 15 % OGRAPHER MOTION PICTURE Inga Dolan MD - 08/09/2020 4:39 PM CSTAssociated Order(s): PEDS ENDOCRINOLOGY IP CONSULT [facility] Pediatric Endocrinology Consultation New Note Reason for [...] 2019. She also was seen at the [facility] where they felt that her symptoms [...] activeyoung woman who plays [employer] on her [employer] team. There is no family history of [...] been reviewed. Inga Dolan MD Professor and Sample Selector Pediatric Endocrinology and Diabetes Pager: [phone] OGRAPHER MOTION PICTURE documented in this encounter Nursing Notes Zoila [...] additional detail of prior course sometime today. OGRAPHER MOTION PICTURE Zoila Boone RN - 08/04/2020 8:15 AM [...] interoperative management? Thank you! Federico Redman MD It Disaster Recovery Manager of Preoperative Assessment Center [phone] Previous Messages ----- Message ----- From: Zoila Boone RN Sent: 08/03/2020 ?? 2:24 PM PHOTOGRAPHER MOTION PICTURE To: Rachel Rodriguez RN, Maura Moreno RN, * Subject: AA Hematology abn: Bleeding Abnormalities.Ne* Hi all, FYI: History of complex bleeding disorder-[place] platelet disorder? Pt had a interoperative hemorrhage in 2015 (EBL 1400 ml). ?? Please see Dr Ha's note on 07/21/20, regarding plan. ??Surgery is on 08/09/20. Thanks so much. Zoila Boone RN, BSN Preanesthesia Screening [phone] OGRAPHER MOTION PICTURE Zoila Boone RN - 08/03/2020 2:34 PM CST Images from the original note were not included. AA Hematology abn: Bleeding Abnormalities.Needs review. Surgery on 08/09 Received: Today Message Contents Zoila Boone RN P Pas Anesthesiology; Riaz Kenyon MD Cc: Maura Moreno RN; Rachel Rodriguez RN; Jana Fischer RN ?? Hi duc, FYI: History of complex bleeding disorder-[place] platelet disorder? Pt had a interoperative hemorrhage in 2015 (EBL 1400 ml). ?? Please see Dr Ha's note on 07/21/20, regarding plan. ??Surgery is on 08/09/20. Thanks so much. Zoila Boone RN, BSN Preanesthesia Screening [phone] OGRAPHER MOTION PICTURE documented in this encounter Miscellaneous Notes Plan [...] mother, they verbalized understanding. Discharged at 1315. OGRAPHER MOTION PICTURE Pharmacy - Discharge Medication Reconciliation and Education - Zeb Bravo, [facility] - 08/16/2020 1:12 PM CST Discharge medication [...] pain naloxone (NARCAN) 4 MG/0.1ML nasal spray [place] 1 spray (4 mg) into one nostril [...] Stopping: Katja Wilcox, 4th Year Student Pharmacist OGRAPHER MOTION PICTURE Plan of Care - Tiff Collins RN [...] Mother at bedside. Hopeful for discharge today. OGRAPHER MOTION PICTURE Plan of Care - Henna Murray RN [...] Possible discharge tomorrow. Will continue to monitor. OGRAPHER MOTION PICTURE Provider Notification - Henna Murray RN - 08/15/2020 8:41 PM PHOTOGRAPHER MOTION PICTURE Purple Resident Mg notified via [facility] paging that pt crying and reporting [...] at this time, will continue to monitor. OGRAPHER MOTION PICTURE Plan of Care - Tess Gutierrez RN - 08/15/2020 3:44 PM CST VSS. Afebrile. Rating back pain 7-8/10. Pain controlled with PRN [place] x1 (now discontinued), scheduled Valium, PRN Oxycodone, and Lidocaine patch. Ketamine gtt stopped per orders. Ice packs also applied. Patient took shower today and walked around [place] x2 with PT. Voiding well. Having loose stools - bowel medications held this AM. Mother at bedside and updated on POC. Will continue to monitor and update with changes. OGRAPHER MOTION PICTURE Plan of Care - Mariposa Garcia, JUDY - 08/15/2020 2:32 PM CST Physical Therapy Discharge Summary Reason for therapy discharge: Discharged to home with outpatient therapy. Progress towards therapy goal(s). See goals on Care Plan in [facility] electronic health record for goal details. Goals met Therapy recommendation(s): Continued therapy is recommended. Rationale/Recommendations: Continued therapy recommended to progress core strength, address muscular imbalances and assist patient with safe progression of strengthening with good body mechanics. OGRAPHER MOTION PICTURE Provider Notification - Tess Gutierrez RN - 08/15/2020 7:56 AM CST 08/15/20 0747 08/15/20 0754 Vitals BP 95/50 90/48 Patient Position Lying Lying Site Arm, upper left Arm, upper left Mode Electronic Electronic Cuff Size Adult Adult Patient with x2 soft BPs. Pt sleeping. Purple team notified. Will continue to monitor and update with changes. OGRAPHER MOTION PICTURE Plan of Care - Berlin Downs RN - 08/15/2020 6:46 AM CST Pt calm and appearing happy during evening, slept well through the night. Pain 8/10 while awake and 6-7/10 overnight. No nonverbal indicators of pain observed. Pain/discomfort controlled with Ketamine gtt, [place] Q4, and Valium. Neuro checks WDL. Pt moving well, stand-by assist. Drinking well. Having loose stools, Miralax and Senna held. Voiding well. Mother at bedside. Plan to continue monitoring. OGRAPHER MOTION PICTURE Plan of Care - Tiff Gonzales RN - 08/14/2020 7:24 PM CST Pain control an issue [id number]. Pt continues to need pain meds when [...] attentive to needs. Will continue to monitor. OGRAPHER MOTION PICTURE Plan of Care - Keily Cardona, OT - 08/14/2020 12:18 PM CST Occupational Therapy Discharge Summary Reason for therapy discharge: All goals and outcomes met, no further needs identified. Progress towards therapy goal(s). See goals on Care Plan in [facility] electronic health record for goal details. Goals met Therapy recommendation(s): Pt safe to discharge to home with assist as needed for ADLs. Pt has a shower chair at home. OGRAPHER MOTION PICTURE Plan of Care - David Ayala RN [...] up in morning. Will continue to monitor. OGRAPHER MOTION PICTURE Plan of Care - Reyna Edwards, RUTH - 08/13/2020 10:07 PM CST Tmax 100.4, 99.6 re-check. BP 87/37, MD notified, recheck was WDL. Other VSS. Lung sounds clear. Pt c/o 9-10/10 back pain. Took 2 bumps from fentanyl RUG SETTER VELVET and 2 denied. Ketamine gtt remains unchanged. Pt c/o headache, received [place] x 1 with little effect. Good UOP. Dressings remain clean, dry, and intact. Stool softeners held per patient request. Hourly rounding complete. Will continue to monitor andassess. OGRAPHER MOTION PICTURE Plan of Care - Mariposa Garcia, PT [...] supervision. Safe for discharge from PT perspective OGRAPHER MOTION PICTURE Plan of Care - Marine Paredes RN - 08/13/2020 7:52 AM CST [id number]: Afebrile, VSS LSC on RA. Pain 9/10 with scheduled tylenol, cold packs, continuous ketamine and RUG SETTER VELVET fentanyl with 5 bumps taken 8 denied. Appeared to sleep well between cares. No nausea. Dressing on back c/d/I- no changes. No c/o nausea. PIV in R arm fell out this AM- replaced without issue.Up to commode with pt's mother's assistance overnight. No stool. Hourly rounding completed, continueto monitor and notify team of changes/concerns. OGRAPHER MOTION PICTURE Plan of Care - Tess Gutierrez RN - 08/12/2020 4:10 PM CST Pt arrived to unit from PICU at 1150. VSS. Afebrile. Rating pain 9/10. Pain controlled with Ketaminegtt, Fentanyl RUG SETTER VELVET with one time clinician bolus as ordered, [...] continue to monitor and update with changes. OGRAPHER MOTION PICTURE Plan of Care - Janett Hylton RN [...] patient involved in the plan of care. OGRAPHER MOTION PICTURE Provider Notification - Aliza Brannon RN - 08/11/2020 10:59 PM CST 08/11/20 2200 Vitals BP (!) 84/43 RN notified Resident Marina CONCEPCION of BP lower than parameters. MIVF started at 100ml/hr - will reevaluate at 0000 regarding next steps/improvements in BP. Will continue to monitor. OGRAPHER MOTION PICTURE Plan of Care - Ruby Goel RN - 08/11/2020 7:57 PM CST Patient's VSS and remained afebrile. Adjustments made to patient's pain medications. Shortly after initiating dilaudid gtt patient started to become confused and slightly delirious. Resident notified and gtt stopped. Minimal PO intake PRN zofran x2. Mom at bedside and updated on POC. OGRAPHER MOTION PICTURE Provider Notification - Estee Braden CNP - [...] Nurse Practitioner Pediatric Integrative Health & Wellbeing OGRAPHER MOTION PICTURE Plan of Care - Sammie Clifton RN [...] to commode cause she doesn't wanna faint. OGRAPHER MOTION PICTURE Plan of Care - Desire Thomas RN [...] here this afternoon. Will continue to monitor. OGRAPHER MOTION PICTURE Plan of Care - Benson Edwards OT - 08/10/2020 12:41 PM CST OT: Cancel, Pt not appropriate for OT evaluation at this time, will hold OT evaluation at this time and will reschedule evaluation as appropriate. OGRAPHER MOTION PICTURE Plan of Care - Janice Stallworth RN [...] updated on POC. Will continue to monitor. OGRAPHER MOTION PICTURE Op Note - Catina Ha MD - [...] 44 cm. SURGEON: Catina Ha Jr., MD STUCCO PLASTERER: Victor Hugo Talbot MD, resident. INDICATION FOR OPERATION: The patient is a 20-year-old female with a complex spinal history. She [facility]. She underwent a tethered cord releaseby Dr. Girish Hammond. She then underwent a posterior spinal fusion by Dr. Cobos in 01/2016. She had pain f ollowing the surgery, underwent removal of a right T8 hook. She was then subsequently seen by Dr. Perez and then Dr. Muro at [facility]. 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 She saw Dr. Muro at [facility], who felt that she had symptoms at the level of her crosslink, and the crosslink was removed, which resulted in some improvement, and then she got worse. She was then seen at [facility], where she was undergoing [facility] physical therapy, and it got [...] dysfunction and appeared to be most like [place] platelet disorder. Genetic testing for this was performed and came back on 07/30, showing that she did not in fact have the genotype for [place] platelet disorder, but may have what appears [...] Arrangements were made to have a pediatric inspector tester sorter in attendance in the OR to help manage her bleeding issues and bleeding problems. DESCRIPTION OF PROCEDURE: The OR team was briefed about the plan. The patient was brought to the operating room and underwent the induction of adequate general anesthesia, the patient was positioned prone on a 4-application technician frame. She was then prepared and draped [...] intraoperative 3D images, which were transferred the [employer] image-guided workstation and allowedus to place other [...] MD MT: JOHNSON Name: DAKOTA CASIANO Account: [id number] : 2000 Procedure Date: 08/09/2020 Document: [id number] cc: Marilyn Muro MD Copy for Patient [facility] Brannon Perez MD OGRAPHER MOTION PICTURE Plan of Care - Jazzmine Max RN - 08/09/2020 7:02 PM CST Pt post op from unexpected addition of new spinal hardware instead of only removal of old hardware. Pt expressing a lot of pain, total of 4mg morphine given from [id number] as well as 1 dose of atarax, this has been tolerable for pt as she has been sleeping since the last 1730 prn dose given. Still taking just water. Post op labs still [id number]. Mom updated on poc, continue to monitor. OGRAPHER MOTION PICTURE Pharmacy-Admission Medication History - Robert Ying [facility] - 08/09/2020 3:05 PM CST Admission medication history interview status for the 08/09/2020 admission is complete. See [facility] admission navigator for allergy information, pharmacy, prior to admission medications and immunization status. Medication history interview sources: Mother Changes made to CONCRETE CONVEYOR OPERATOR medication list (reason) Added: setraline Deleted: none [...] History Medication history completed by: Robert Ying RPH OGRAPHER MOTION PICTURE Brief Op Note - Victor Hugo Talbot MD - 08/09/2020 1:07 PM CST [facility]?? Brief Operative Note Pre-operative diagnosis: [...] Implant Name Type Inv. Item Serial No. Director Of Religious Activities Lot No. LRB No. Used Action EXPLANTED SPINAL HARDWARE N/A 1 Explanted GRAFT BONE CRUSH CANC 30ML [id number] Bone/Tissue/Biologic GRAFT BONE CRUSH CANC 30ML [id number] MUSCULOSKELETAL RAMIREZ N/A 1 Implanted GRAFT BONE CRUSH CANC 30ML [id number] Bone/Tissue/Biologic GRAFT BONE CRUSH CANC 30ML [id number] MUSCULOSKELETAL RAMIREZ N/A 1 Implanted IMP SCR SET MEDT SOLERA BREAK OFF 5.5MM TI [id number] Metallic Hardware/[place] IMP SCR SET MEDT SOLERA BREAK OFF 5.5MM TI [id number] [employer] INC N/A 15 Implanted IMP SCR MEDT 5.5/6.0MM SOLERA 6.5X45MM FA TI [id number] Metallic Hardware/[place] IMP SCR MEDT 5.5/6.0MM SOLERA 6.5X45MM FA TI [id number] [employer] N/A 2 Implanted IMP SCR MEDT 5.5/6.0MM SOLERA 6.5X50MM FA TI [id number] Metallic Hardware/[place] IMP SCR MEDT 5.5/6.0MM SOLERA 6.5X50MM FA TI [id number] [employer] N/A 1 Implanted IMP SCR MEDT 5.5/6.0MM SOLERA 5.5X45MM FA TI [id number] Metallic Hardware/[place] IMP SCR MEDT 5.5/6.0MM SOLERA 5.5X45MM FA TI [id number] [employer] N/A 3 Implanted IMP SCR MEDT 5.5/6.0MM SOLERA 5.5X50MM FA TI [id number] Metallic Hardware/[place] IMP SCR MEDT 5.5/6.0MM SOLERA 5.5X50MM FA TI [id number] [employer] N/A 1 Implanted IMP SCR MEDT 5.5/6.0MM SOLERA 5.5X40MM FA TI [id number] Metallic Hardware/[place] IMP SCR MEDT 5.5/6.0MM SOLERA 5.5X40MM FA TI [id number] [employer] N/A 3 Implanted IMP SCR MEDT 5.5/6.0MM SOLERA 5.5X35MM FA TI [id number] Metallic Hardware/[place] IMP SCR MEDT 5.5/6.0MM SOLERA 5.5X35MM FA TI [id number] [employer] N/A 1 Implanted IMP SCR MEDT 5.5/6.0MM SOLERA 4.5X40MM FA TI [id number] Metallic Hardware/[place] IMP SCR MEDT 5.5/6.0MM SOLERA 4.5X40MM FA TI [id number] [employer] N/A 2 Implanted IMP SCR MEDT 5.5/6.0MM SOLERA 4.5X35MM FA TI [id number] Metallic Hardware/[place] IMP SCR MEDT 5.5/6.0MM SOLERA 4.5X35MM FA TI [id number] [employer] N/A 1 Implanted IMP SANDY MEDT SOLERA TIAL STR LINED 5.3S013WX [id number] Metallic Hardware/[place] IMP SANDY MEDT SOLERATIAL STR LINED 5.2T068IG [id number] [employer] N/A 2 Implanted Medtronic NB Hook [employer] N/A 1 Implanted GRAFT BONE INFUSE BMP LG II [id number] GRAFT BONE INFUSE BMP LG II [id number] [employer], [employer]-DANEK [id number] N/A 1 Implanted GRAFT BONE INFUSE BMP MED [id number] GRAFT BONE INFUSE BMP MED [id number] [employer] [id number] N/A 1 Implanted OGRAPHER MOTION PICTURE documented in this encounter Plan of Treatment Pending Results Name Type Priority Associated Diagnoses Date/Ti me CBC with platelets Lab Timed Scoliosis 6:49 AM PHOTOGRAPHER MOTION PICTURE Scheduled Referrals Name Type Priority Associated Diagnoses [facility] Referral Routine Neuromuscular scoliosis of Expected: REFERRAL thoracolumbar region 021, Expires: 08/15/2021 documented as of this encounter Procedures Procedure Name Priority Date/Time Associated Comments Diagnosis TEG WITHOUT HEPARINASE Routine 08/15/2020 8:46 Scoliosis Re sults for this AM PHOTOGRAPHER MOTION PICTURE procedure are i n the results section. INR Routine 08/15/2020 8:46 Scoliosis Results for this AM [employer] procedure are i n the results section. PARTIAL THROMBOPLASTIN Routine 08/15/2020 8:46 Scoliosis Re sults for this TIME AM [employer] procedure are i n the results section. FIBRINOGEN ACTIVITY Routine 08/15/2020 8:46 Scoliosis Resul ts for this AM [employer] procedure are i n the results section. CBC WITH PLATELETS Routine 08/15/2020 8:46 Scoliosis Result s for this AM [employer] procedure are i n the results section. TEG WITHOUT HEPARINASE Routine 08/14/2020 7:07 Scoliosis Re sults for this AM [employer] procedure are i n the results section. INR Routine 08/14/2020 7:07 Scoliosis Results for this AM [employer] procedure are i n the results section. PARTIAL THROMBOPLASTIN Routine 08/14/2020 7:07 Scoliosis Re sults for this TIME AM [employer] procedure are i n the results section. FIBRINOGEN ACTIVITY Routine 08/14/2020 7:07 Scoliosis Resul ts for this AM [employer] procedure are i n the results section. CBC WITH PLATELETS Routine 08/14/2020 7:07 Scoliosis Result s for this AM [employer] procedure are i n the results section. TEG WITHOUT HEPARINASE Routine 08/13/2020 3:11 Scoliosis Re sults for this PM [employer] procedure are i n the results section. CBC WITH PLATELETS Timed 08/13/2020 3:11 Scoliosis Result s for this PM [employer] procedure are i n the results section. CBC WITH PLATELETS Routine 08/13/2020 7:58 Scoliosis Result s for this AM [employer] procedure are i n the results section. INR Timed 08/13/2020 6:49 Scoliosis Results for this AM [employer] procedure are i n the results section. PARTIAL THROMBOPLASTIN Timed 08/13/2020 6:49 Scoliosis Re sults for this TIME AM [employer] procedure are i n the results section. FIBRINOGEN ACTIVITY Timed 08/13/2020 6:49 Scoliosis Resul ts for this AM [employer] procedure are i n the results section. BASIC METABOLIC PANEL Timed 08/13/2020 6:49 Scoliosis Res ults for this AM [employer] procedure are i n the results section. CBC WITH PLATELETS Timed 08/13/2020 6:49 Scoliosis AM [employer] INR Timed 08/12/2020 7:30 Scoliosis Results for this PM [employer] procedure are i n the results section. PARTIAL THROMBOPLASTIN Timed 08/12/2020 7:30 Scoliosis Re sults for this TIME PM [employer] procedure are i n the results section. FIBRINOGEN ACTIVITY Timed 08/12/2020 7:30 Scoliosis Resul ts for this PM [employer] procedure are i n the results section. CBC WITH PLATELETS Timed 08/12/2020 7:30 Scoliosis Result s for this PM [employer] procedure are i n the results section. EKG 12-LEAD, TRACING Routine 08/12/2020 6:42 Resu lts for this ONLY PM [employer] procedure are i n the results section. XR THORACIC LUMBAR Routine 08/12/2020 6:07 Result s for this STANDING 2 VIEWS PM [employer] procedure a re in the results section. XR BONE SURVEY COMPLETE Routine 08/12/2020 6:06 R esults for this PEDS PM [employer] procedure are i n the results section. TEG WITHOUT HEPARINASE Routine 08/12/2020 8:11 Scoliosis Re sults for this AM [employer] procedure are i n the results section. INR Timed 08/11/2020 5:22 Scoliosis Results for this PM [employer] procedure are i n the results section. PARTIAL THROMBOPLASTIN Timed 08/11/2020 5:22 Scoliosis Re sults for this TIME PM [employer] procedure are i n the results section. FIBRINOGEN ACTIVITY Timed 08/11/2020 5:22 Scoliosis Resul ts for this PM [employer] procedure are i n the results section. CBC WITH PLATELETS Timed 08/11/2020 5:22 Scoliosis Result s for this PM [employer] procedure are i n the results section. TEG WITHOUT HEPARINASE Timed 08/11/2020 10:03 Scoliosis R esults for this AM [employer] procedure are i n the results section. INR Timed 08/11/2020 10:03 Scoliosis Results for this AM [employer] procedure are i n the results section. PARTIAL THROMBOPLASTIN Timed 08/11/2020 10:03 Scoliosis R esults for this TIME AM [employer] procedure are i n the results section. FIBRINOGEN ACTIVITY Timed 08/11/2020 10:03 Scoliosis Resu lts for this AM [employer] procedure are i n the results section. CBC WITH PLATELETS Timed 08/11/2020 10:03 Scoliosis Resul ts for this AM [employer] procedure are i n the results section. TEG WITHOUT HEPARINASE Timed 08/11/2020 6:09 Scoliosis Re sults for this AM [employer] procedure are i n the results section. INR Timed 08/11/2020 6:09 Scoliosis Results for this AM [employer] procedure are i n the results section. PARTIAL THROMBOPLASTIN Timed 08/11/2020 6:09 Scoliosis Re sults for this TIME AM [employer] procedure are i n the results section. FIBRINOGEN ACTIVITY Timed 08/11/2020 6:09 Scoliosis Resul ts for this AM [employer] procedure are i n the results section. CBC WITH PLATELETS Timed 08/11/2020 6:09 Scoliosis Result s for this AM [employer] procedure are i n the results section. TEG WITHOUT HEPARINASE Timed 08/10/2020 9:50 Scoliosis Re sults for this PM [employer] procedure are i n the results section. INR Timed 08/10/2020 9:50 Scoliosis Results for this PM [employer] procedure are i n the results section. PARTIAL THROMBOPLASTIN Timed 08/10/2020 9:50 Scoliosis Re sults for this TIME PM [employer] procedure are i n the results section. FIBRINOGEN ACTIVITY Timed 08/10/2020 9:50 Scoliosis Resul ts for this PM [employer] procedure are i n the results section. CBC WITH PLATELETS Timed 08/10/2020 9:50 Scoliosis Result s for this PM [employer] procedure are i n the results section. TEG WITHOUT HEPARINASE Timed 08/10/2020 4:00 Scoliosis Re sults for this PM [employer] procedure are i n the results section. INR Timed 08/10/2020 4:00 Scoliosis Results for this PM [employer] procedure are i n the results section. PARTIAL THROMBOPLASTIN Timed 08/10/2020 4:00 Scoliosis Re sults for this TIME PM [employer] procedure are i n the results section. FIBRINOGEN ACTIVITY Timed 08/10/2020 4:00 Scoliosis Resul ts for this PM [employer] procedure are i n the results section. CBC WITH PLATELETS Timed 08/10/2020 4:00 Scoliosis Result s for this PM [employer] procedure are i n the results section. TEG WITHOUT HEPARINASE Timed 08/10/2020 10:00 Scoliosis R esults for this AM [employer] procedure are i n the results section. INR Timed 08/10/2020 10:00 Scoliosis Results for this AM [employer] procedure are i n the results section. PARTIAL THROMBOPLASTIN Timed 08/10/2020 10:00 Scoliosis R esults for this TIME AM [employer] procedure are i n the results section. FIBRINOGEN ACTIVITY Timed 08/10/2020 10:00 Scoliosis Resu lts for this AM [employer] procedure are i n the results section. CBC WITH PLATELETS Timed 08/10/2020 10:00 Scoliosis Resul ts for this AM [employer] procedure are i n the results section. OPTICAL TRACKING SYSTEM Routine 08/10/2020 7:28 Scoliosi s FUSION SPINE POSTERIOR AM PHOTOGR[employer] Painful orthopaedi c THORACIC CHILD THREE+ hardware (H) LEVELS TEG WITHOUT HEPARINASE Timed 08/10/2020 4:00 Scoliosis Re sults for this AM [employer] procedure are i n the results section. INR Timed 08/10/2020 4:00 Scoliosis Results for this AM [employer] procedure are i n the results section. PARTIAL THROMBOPLASTIN Timed 08/10/2020 4:00 Scoliosis Re sults for this TIME AM [employer] procedure are i n the results section. FIBRINOGEN ACTIVITY Timed 08/10/2020 4:00 Scoliosis Resul ts for this AM [employer] procedure are i n the results section. CBC WITH PLATELETS Timed 08/10/2020 4:00 Scoliosis Result s for this AM [employer] procedure are i n the results section. TEG WITHOUT HEPARINASE Timed 08/09/2020 10:00 Scoliosis R esults for this PM [employer] procedure are i n the results section. INR Timed 08/09/2020 10:00 Scoliosis Results for this PM [employer] procedure are i n the results section. PARTIAL THROMBOPLASTIN Timed 08/09/2020 10:00 Scoliosis R esults for this TIME PM [employer] procedure are i n the results section. FIBRINOGEN ACTIVITY Routine 08/09/2020 10:00 Scoliosis Resu lts for this PM [employer] procedure are i n the results section. CBC WITH PLATELETS Timed 08/09/2020 10:00 Scoliosis Resul ts for this PM [employer] procedure are i n the results section. TEG WITHOUT HEPARINASE Timed 08/09/2020 5:54 Scoliosis Re sults for this PM [employer] procedure are i n the results section. INR Timed 08/09/2020 5:45 Scoliosis Results for this PM [employer] procedure are i n the results section. PARTIAL THROMBOPLASTIN Timed 08/09/2020 5:45 Scoliosis Re sults for this TIME PM [employer] procedure are i n the results section. FIBRINOGEN ACTIVITY Timed 08/09/2020 5:45 Scoliosis Resul ts for this PM [employer] procedure are i n the results section. CBC WITH PLATELETS Timed 08/09/2020 5:45 Scoliosis Result s for this PM [employer] procedure are i n the results section. MRSA MSSA PCR, NASAL STAT 08/09/2020 2:10 Scoliosis Resu lts for this SWAB PM [employer] procedure are i n the results section. TEG WITHOUT HEPARINASE STAT 08/09/2020 1:45 Scoliosis Re sults for this PM [employer] procedure are i n the results section. RENAL PANEL STAT 08/09/2020 1:45 Scoliosis Results for this PM [employer] procedure are i n the results section. INR STAT 08/09/2020 1:45 Scoliosis Results for this PM [employer] procedure are i n the results section. PREALBUMIN STAT 08/09/2020 1:45 Scoliosis Results for this PM [employer] procedure are i n the results section. PARTIAL THROMBOPLASTIN STAT 08/09/2020 1:45 Scoliosis Re sults for this TIME PM [employer] procedure are i n the results section. MAGNESIUM STAT 08/09/2020 1:45 Scoliosis Results for this PM [employer] procedure are i n the results section. IRON AND IRON BINDING Routine 08/09/2020 1:45 Scoliosis Res ults for this CAPACITY PM [employer] procedure are i n the results section. FIBRINOGEN ACTIVITY STAT 08/09/2020 1:45 Scoliosis Resul ts for this PM [employer] procedure are i n the results section. IONIZED CALCIUM STAT 08/09/2020 1:45 Scoliosis Results f or this PM [employer] procedure are i n the results section. CBC WITH PLATELETS STAT 08/09/2020 1:45 Scoliosis Result s for this PM [employer] procedure are i n the results section. XR SURGERY ELIER FLUORO Routine 08/09/2020 12:05 R esults for this LESS THAN 5 MIN PM PH[employer] procedure ar e in the results section. TEG WITHOUT HEPARINASE Routine 08/09/2020 11:28 Scoliosis R esults for this AM [employer] procedure are i n the results section. INR Routine 08/09/2020 11:28 Scoliosis Results for this AM [employer] procedure are i n the results section. PARTIAL THROMBOPLASTIN Routine 08/09/2020 11:28 Scoliosis R esults for this TIME AM [employer] procedure are i n the results section. FIBRINOGEN ACTIVITY Routine 08/09/2020 11:28 Scoliosis Resu lts for this AM [employer] procedure are i n the results section. CBC WITH PLATELETS Routine 08/09/2020 11:28 Scoliosis Resul ts for this AM [employer] procedure are i n the results section. TEG WITHOUT HEPARINASE STAT 08/09/2020 9:50 Scoliosis Re sults for this AM [employer] procedure are i n the results section. ARTERIAL PANEL STAT 08/09/2020 9:50 Scoliosis Results fo r this AM [employer] procedure are i n the results section. INR STAT 08/09/2020 9:50 Scoliosis Results for this AM [employer] procedure are i n the results section. PARTIAL THROMBOPLASTIN STAT 08/09/2020 9:50 Scoliosis Re sults for this TIME AM [employer] procedure are i n the results section. FIBRINOGEN ACTIVITY STAT 08/09/2020 9:50 Scoliosis Resul ts for this AM [employer] procedure are i n the results section. LABORATORY Routine 08/09/2020 9:00 Scoliosis Results for this MISCELLANEOUS ORDER AM [employer] procedur e are in the results section. TEG WITHOUT HEPARINASE STAT 08/09/2020 8:45 Scoliosis Re sults for this AM [employer] procedure are i n the results section. ARTERIAL PANEL STAT 08/09/2020 8:45 Scoliosis Results fo r this AM [employer] procedure are i n the results section. INR STAT 08/09/2020 8:45 Scoliosis Results for this AM [employer] procedure are i n the results section. PARTIAL THROMBOPLASTIN STAT 08/09/2020 8:45 Scoliosis Re sults for this TIME AM [employer] procedure are i n the results section. FIBRINOGEN ACTIVITY STAT 08/09/2020 8:45 Scoliosis Resul ts for this AM [employer] procedure are i n the results section. CBC WITH PLATELETS STAT 08/09/2020 8:45 Scoliosis Result s for this AM [employer] procedure are i n the results section. BLOOD COMPONENT Routine 08/09/2020 7:30 Scoliosis Results f or this AM [employer] procedure are i n the results section. BLOOD COMPONENT Routine 08/09/2020 7:30 Scoliosis Results f or this AM [employer] procedure are i n the results section. ABO/RH TYPE AND SCREEN STAT 08/09/2020 7:30 Scoliosis Re sults for this AM [employer] procedure are i n the results section. GLUCOSE STAT 08/09/2020 7:30 Scoliosis Results for this AM [employer] procedure are i n the results section. HCG QUALITATIVE URINE STAT 08/09/2020 7:00 Scoliosis Res ults for this AM [employer] procedure are i n the results section. EXPLORE SPINE, REMOVE Routine 08/09/2020 6:48 Scoliosis HARDWARE, COMBINED AM [employer] Painful orthopaedic hardware (H) LAB RESULT - HIM SCAN 07/25/2020 12:00 AM [employer] documented in this encounter Results Magnesium (10/13/2020 3:50 PM PHOTOGR[employer]) P athologist Signature Magnesium 2.2 1.6 - 2.3 10/13/2020 [facility] mg/dL 4:40 PM [facility] Specimen Anatomical Collection Method Collection Time Receive d Time (Source) Location / / Volume Laterality Blood specimen 10/13/2020 3:50 PM 021 3:55 (specimen) [employer] PM PHOTOGR[employer] PICTURE Ed Bartholomew MD LAB - BLOOD ORDERABLES Performing Organization Address City/State/ZIP Code Phon e Number [address] [address] [facility] Phosphorus (10/13/2020 3:50 PM [employer]) athologist Signature Phosphorus 4.5 2.5 - 4.5 10/13/2020 [facility] mg/dL 4:40 PM [employer] [facility] Specimen Anatomical Collection Method Collection Time Receive d Time (Source) Location / / Volume Laterality Blood specimen 10/13/2020 3:50 PM 021 3:55 (specimen) [employer] PM PHOTOGR[employer]CTURE Ed Bartholomew MD LAB - BLOOD ORDERABLES Performing Organization Address City/State/ZIP Code Phon e Number [address] [address] [facility] Parathyroid Hormone Intact (10/13/2020 3:50 PM PHOTO[employer]) athologist [facility] Parathyroid 30 18 - 80 10/14/2020 [facility] Hormone Intact pg/mL 1:47 AM PHOTOGR[employer] [facility] Specimen Anatomical Collection Method Collection Time Receive d Time (Source) Location / / Volume Laterality Blood specimen 10/13/2020 3:50 PM 021 3:55 (specimen) PH[employer]GR[employer] PM PHOTOGRAP[employer] PICTURE Ed Bartholomew MD LAB - BLOOD ORDERABLES Performing Organization Address City/State/ZIP Code Phon e Number [address] [address] [facility] Bone specific alk phosphatase (10/13/2020 3:50 PM PHOTOGR[employer]) athologist Signature Bone Spec Alk 22.9 ug/L 10/14/2020 [facility] Phosphatase 5:10 PM PH[employer] [facility] Comment: (Note) INTERPRETIVE INFORMATION: [...] specific alk burt phosphatase result. Performed By: [facility] [address] [place] [address] [place] Induction: Brandi Dooley MD Specimen Anatomical Collection Method Collection Time Receive d Time (Source) Location / / Volume Laterality Blood specimen 10/13/2020 3:50 PM 021 3:55 (specimen) [employer] PM PHOTOGRAPHER [employer]ION PICTURE Ed Bartholomew MD LAB - BLOOD ORDERABLES Performing Organization Address [facility] Phon e Number [address] Osteocalcin (10/13/2020 3:50 PM PHOTOGR[employer]HER [employer]) athologist Signature Osteocalcin 41 11 - 50 10/15/2020 [facility] ng/mL 5:26 PM [employer] [facility] Comment: (Note) INTERPRETIVE INFORMATION: Osteocalcin by [facility] In patients with renal failure the osteo calcin result can be elevated, both directly, due to impai red clearance and indirectly, due to renal osteodystrophy. Access complete set of age- and/or gende r-specific reference intervals for this test in the [facility] Test Directory ([employer]). Performed By: [facility] [address] [place] [address] [place] Induction: Brandi Dooley MD Specimen Anatomical Collection Method Collection Time Receive d Time (Source) Location / / Volume Laterality Blood specimen 10/13/2020 3:50 PM 021 3:55 (specimen) PH[employer] PM PHOTOGRAPHER [employer]ION PICTURE Ed Bartholomew MD LAB - BLOOD ORDERABLES Performing Organization Address [facility] Phon e Number [address] N telopeptide cross linked urine (10/13/2020 3:45 PM PHOTO[employer]) athologist Signature N-Telopeptide 41 BCE/mM 10/15/2020 [facility] X-Link Urine 12:27 AM PHOTOGR[employer] [facility] Comment: (Note) Normal adult [...] reference intervals for this test in the [facility] ([employer]). Creatinine Ur/Vol 90 mg/dL 10/15/2020 12:27 AM CS T [facility] Comment: (Note) Performed By: [facility] [address] [place] [id number] [place] Induction: Brandi Dooley MD Specimen Anatomical Collection Method Collection Time Receive d Time (Source) Location / / Volume Laterality Urine specimen 10/13/2020 3:45 PM 021 3:55 (specimen) PH[employer]GR[employer]URE PM PHOTOGRAPHER [employer]ION PICTURE Ed Bartholomew MD LAB - URINE ORDERABLES Performing Organization Address City/State/ZIP Code Phon e Number [facility] [address] [place] [address] [facility] (ABNORMAL) TEG without Heparinase (08/15/2020 8:46 AM PHOTOGR[employer]) [facility] gist Method Time Signature R time until clot 5.0 5 - 10 08/15/2020 [facility] forms Minute 10:37 AM [facility] K time to spec clot 1.1 1 - 3 08/15/2020 [facility] strength Minute 10:37 AM [facility] Angle rate of clot 63.3 53 - 72 08/15/2020 [facility] strength Degrees 10:37 AM [facility] MA maximum clot 73.6 (H) 50 - 70 mm 08/15/2020 [facility] F strength 10:37 AM [facility] CI hypercoagulation 2.4 0.0 - 3.0 08/15/2020 [facility] index Ratio 10:37 AM [facility] G actual clot 13.9 (H) 4.5 - 11.0 08/15/2020 [facility] Kd/sc 10:37 AM [facility] LY30 lysis at 30 2.2 0 - 8 % 08/15/2020 [facility] F minutes 10:37 AM [facility] LY60 lysis at 60 6.1 0 - 15 % 08/15/2020 [facility] F minutes 10:37 AM [facility] Specimen Anatomical Collection Method Collection Time Receive d Time (Source) Location / / Volume Laterality Blood specimen 08/15/2020 8:46 AM 021 8:47 (specimen) PH[employer] AM PHOTOGRAPHER [employer]ION PICTURE Miles Steel MD LAB - BLOOD ORDERABLES Performing Organization Address City/State/ZIP Code Phon e Number [facility] [address] [place] [address] [facility] Partial thromboplastin time (08/15/2020 8:46 AM PH[employer]) P athologist Signature PTT 34 22 - 37 sec 08/15/2020 [facility] 9:13 AM [facility] Specimen Anatomical Collection Method Collection Time Receive d Time (Source) Location / / Volume Laterality Blood specimen 08/15/2020 8:46 AM 8:47 (specimen) PH[employer]GR[employer]URE AM PHOTOGRAPHER [employer] PICTURE Miles Steel MD LAB - BLOOD ORDERABLES Performing Organization Address City/State/ZIP Code Phon e Number [facility] OF [facility] INR (08/15/2020 8:46 AM PHOTOGR[employer]) P athologist Signature INR 1.05 0.86 - 1.14 08/15/2020 [facility] [place] 9:12 AM [facility] Specimen Anatomical Collection Method Collection Time Receive d Time (Source) Location / / Volume Laterality Blood specimen 08/15/2020 8:46 AM 8:47 (specimen) PH[employer]GR[employer]URE AM PHOTOGRAPHER [employer] PICTURE Miles Steel MD LAB - BLOOD ORDERABLES Performing Organization Address City/State/ZIP Code Phon e Number [facility] (ABNORMAL) Fibrinogen activity (08/15/2020 8:46 AM PH[employer]) P athologist Signature Fibrinogen 685 (H) 200 - 420 08/15/2020 [facility] [place] mg/dL 9:12 AM [facility] Specimen Anatomical Collection Method Collection Time Receive d Time (Source) Location / / Volume Laterality Blood specimen 08/15/2020 8:46 AM 021 8:47 (specimen) PHOTOGR[employer]URE AM PHOTOGRAPHER [employer]ION PICTURE Miles Steel MD LAB - BLOOD ORDERABLES Performing Organization Address City/State/ZIP Code Phon e Number U [facility] U OF M [facility] (ABNORMAL) CBC with platelets (08/15/2020 8:46 AM PHOTOGR[employer]HER [employer]URE) [facility] gist Method Time Signature WBC 5.6 4.0 - 11.0 08/15/2020 [facility] 10e9/L 9:03 AM [facility] RBC Count 3.06 (L) 3.8 - 5.2 08/15/2020 [facility] 10e12/L 9:03 AM [facility] Hemoglobin 9.3 (L) 11.7 - 08/15/2020 [facility] 15.7 g/dL 9:03 AM [facility] Hematocrit 28.7 (L) 35.0 - 08/15/2020 [facility] 47.0 % 9:03 AM [facility] MCV 94 78 - 100 08/15/2020 [facility] fl 9:03 AM [facility] MCH 30.4 26.5 - 08/15/2020 [facility] 33.0 pg 9:03 AM [facility] MCHC 32.4 31.5 - 08/15/2020 [facility] 36.5 g/dL 9:03 AM [facility] RDW 12.2 10.0 - 08/15/2020 [facility] 15.0 % 9:03 AM [facility] Platelet Count 274 150 - 450 08/15/2020 [facility] 10e9/L 9:03 AM [facility] Specimen Anatomical Collection Method Collection Time Receive d Time (Source) Location / / Volume Laterality Blood specimen 08/15/2020 8:46 AM 021 8:47 (specimen) PH[employer]GR[employer]URE AM PHOTOGRAPHER [employer] PICTURE Miles Steel MD LAB - BLOOD ORDERABLES Performing Organization Address City/State/ZIP Code Phon e Number [facility] [address] [place] [address] [facility] (ABNORMAL) TEG without Heparinase (08/14/2020 7:07 AM PHOTOGR[employer]) Patholo gist Method Time Signature R time until clot 3.8 (L) 5 - 10 08/14/2020 [facility] forms Minute 10:05 AM [facility] K time to spec clot 0.9 (L) 1 - 3 08/14/2020 [facility] strength Minute 10:05 AM [facility] Angle rate of clot 77.5 (H) 53 - 72 08/14/2020 [facility] strength Degrees 10:05 AM [facility] MA maximum clot 72.8 (H) 50 - 70 mm 08/14/2020 [facility] O F strength 10:05 AM [facility] CI hypercoagulation 4.2 (H) 0.0 - 3.0 08/14/2020 [facility] index Ratio 10:05 AM [facility] G actual clot 13.4 (H) 4.5 - 11.0 08/14/2020 [facility] Kd/sc 10:05 AM [facility] LY30 lysis at 30 3.3 0 - 8 % 08/14/[address] F minutes 10:05 AM [facility] LY60 lysis at 60 7.5 0 - 15 % 08/14/[address] O F minutes 10:05 AM [facility] Specimen Anatomical Collection Method Collection Time Receive d Time (Source) Location / / Volume Laterality Blood specimen 08/14/2020 7:07 AM 021 7:08 (specimen) PHOTOGR[employer]HER [employer]URE AM PHOTOGRAPHER MOTION PICTURE Ronald Crawford MD LAB - BLOOD ORDERABLES Performing Organization Address City/State/[facility] Code Phon e Number [facility] [address] [place] [address] [facility] Partial thromboplastin time (08/14/2020 7:07 AM PHOTOGRAPHER [employer]URE) P athologist Signature PTT 30 22 - 37 sec 08/14/2020 [facility] 7:28 AM [facility] Specimen Anatomical Collection Method Collection Time Receive d Time (Source) Location / / Volume Laterality Blood specimen 08/14/2020 7:07 AM 021 7:08 (specimen) PHOTOGRAPHER [employer]ION PICTURE AM PHOTOGRAPHER MOTION PICTURE Yuniel Kilgore MD LAB - BLOOD ORDERABLES Performing Organization Address City/State/ZIP Code Phon e Number [address] [address] [facility] INR (08/14/2020 7:07 AM PHOTOGR[employer]HER [employer]) athologist Signature INR 0.98 0.86 - 1.14 08/14/2020 [facility] 7:27 AM [facility] Specimen Anatomical Collection Method Collection Time Receive d Time (Source) Location / / Volume Laterality Blood specimen 08/14/2020 7:07 AM 021 7:08 (specimen) PHOTOGRAPHER [employer]ION PI[employer]URE AM PHOTOGRAPHER [employer]ION [employer]URE Yuniel Kilgore MD LAB - BLOOD ORDERABLES Performing Organization Address City/State/ZIP Code Phon e Number [address] [address] [facility] (ABNORMAL) Fibrinogen activity (08/14/2020 7:07 AM PHOTOGR[employer]) athologist Signature Fibrinogen 603 (H) 200 - 420 08/14/[address] OF mg/dL 7:27 AM [facility] Specimen Anatomical Collection Method Collection Time Receive d Time (Source) Location / / Volume Laterality Blood specimen 08/14/2020 7:07 AM 021 7:08 (specimen) PHOTOGRAPHER MOTION PICTURE AM PHOTOGRAPHER [employer] PI[employer]URE Yuniel Kilgore MD LAB - BLOOD ORDERABLES Performing Organization Address City/State/ZIP Code Phon e Number [address] [address] [facility] (ABNORMAL) CBC with platelets (08/14/2020 7:07 AM PHOTOGR[employer]HER [employer]URE) [facility] gist Method Time Signature WBC 6.5 4.0 - 11.0 08/14/2020 [facility] 10e9/L 7:13 AM [facility] RBC Count 2.99 (L) 3.8 - 5.2 08/14/2020 [facility] 10e12/L 7:13 AM [facility] Hemoglobin 9.1 (L) 11.7 - 08/14/2020 [facility] 15.7 g/dL 7:13 AM [facility] Hematocrit 28.2 (L) 35.0 - 08/14/2020 [facility] 47.0 % 7:13 AM [facility] MCV 94 78 - 100 08/14/2020 [facility] fl 7:13 AM [facility] MCH 30.4 26.5 - 08/14/2020 [facility] 33.0 pg 7:13 AM [facility] MCHC 32.3 31.5 - 08/14/2020 [facility] OF 36.5 g/dL 7:13 AM [facility] RDW 12.4 10.0 - 08/14/2020 [facility] 15.0 % 7:13 AM [facility] Platelet Count 242 150 - 450 08/14/2020 [facility] 10e9/L 7:13 AM [facility] Specimen Anatomical Collection Method Collection Time Receive d Time (Source) Location / / Volume Laterality Blood specimen 08/14/2020 7:07 AM 021 7:08 (specimen) PHOTOGRAPHER [employer]ION PICTURE AM PHOTOGRAPHER MOTION PICTURE Yuniel Kilgore MD LAB - BLOOD ORDERABLES Performing Organization Address City/State/ZIP Code Phon e Number [facility] [address] [place] [address] [facility] (ABNORMAL) TEG without Heparinase (08/13/2020 3:11 PM PHOTOGR[employer]) Patholo gist Method Time Signature R time until clot 2.8 (L) 5 - 10 08/13/2020 [facility] OF forms Minute 5:47 PM [facility] K time to spec clot 0.8 (L) 1 - 3 08/13/2020 [facility] strength Minute 5:47 PM [facility] Angle rate of clot 79.6 (H) 53 - 72 08/13/2020 [facility] strength Degrees 5:47 PM [facility] MA maximum clot 71.0 (H) 50 - 70 mm 08/13/2020 [facility] F strength 5:47 PM [facility] CI hypercoagulation 4.8 (H) 0.0 - 3.0 08/13/2020 [facility] index Ratio 5:47 PM [facility] G actual clot 12.3 (H) 4.5 - 11.0 08/13/2020 [facility] strength Kd/sc 5:47 PM [facility] LY30 lysis at 30 2.4 0 - 8 % 08/13/2020 [facility] F minutes 5:47 PM [facility] LY60 lysis at 60 5.7 0 - 15 % 08/13/2020 [facility] F minutes 5:47 PM [facility] Specimen Anatomical Collection Method Collection Time Receive d Time (Source) Location / / Volume Laterality 08/13/2020 3:11 PM 3:12 PH[employer]GR[employer] PM PHOTOGRAPHER MOTION PICTURE Yuniel Kilgore MD LAB - BLOOD ORDERABLES Performing Organization Address City/State/ZIP Code Phon e Number [facility] [address] [place] [address] [facility] (ABNORMAL) CBC with platelets (08/13/2020 3:11 PM PHOTOGR[employer]HER [employer]) [facility] gist Method Time Signature WBC 7.0 4.0 - 11.0 08/13/2020 [facility] 10e9/L 3:19 PM [facility] RBC Count 3.24 (L) 3.8 - 5.2 08/13/2020 [facility] 10e12/L 3:19 PM [facility] Hemoglobin 9.9 (L) 11.7 - 08/13/2020 [facility] 15.7 g/dL 3:19 PM [facility] Hematocrit 31.1 (L) 35.0 - 08/13/2020 [facility] 47.0 % 3:19 PM [facility] MCV 96 78 - 100 08/13/2020 UN[facility]ERSITY fl 3:19 PM [facility] MCH 30.6 26.5 - 08/13/2020 [facility] 33.0 pg 3:19 PM [facility] MCHC 31.8 31.5 - 08/13/2020 [facility] 36.5 g/dL 3:19 PM [facility] RDW 12.3 10.0 - 08/13/2020 [facility] 15.0 % 3:19 PM [facility] Platelet Count 238 150 - 450 08/13/2020 [facility] 10e9/L 3:19 PM [facility] Specimen Anatomical Collection Method Collection Time Receive d Time (Source) Location / / Volume Laterality Blood specimen 08/13/2020 3:11 PM 021 3:12 (specimen) PHOTOGRAPHER [employer]ION PI[employer]URE PM PHOTOGRAPHER MOTION PICTURE Yuniel Kilgore MD LAB - BLOOD ORDERABLES Performing Organization Address City/State/ZIP Code Phon e Number [address] [address] [facility] (ABNORMAL) CBC with platelets (08/13/2020 7:58 AM PHOTOGR[employer]HER [employer]) Patholo gist Method Time Signature WBC 6.5 4.0 - 11.0 08/13/2020 [facility] 10e9/L 8:06 AM [facility] RBC Count 2.72 (L) 3.8 - 5.2 08/13/2020 [facility] 10e12/L 8:06 AM [facility] Hemoglobin 8.2 (L) 11.7 - 08/13/2020 [facility] 15.7 g/dL 8:06 AM [facility] Hematocrit 25.4 (L) 35.0 - 08/13/2020 [facility] 47.0 % 8:06 AM [facility] MCV 93 78 - 100 08/13/2020 [facility] OF fl 8:06 AM [facility] MCH 30.1 26.5 - 08/13/2020 [facility] 33.0 pg 8:06 AM [facility] MCHC 32.3 31.5 - 08/13/2020 [facility] 36.5 g/dL 8:06 AM [facility] RDW 12.3 10.0 - 08/13/2020 [facility] 15.0 % 8:06 AM [facility] Platelet Count 190 150 - 450 08/13/2020 [facility] 10e9/L 8:06 AM [facility] Specimen Anatomical Collection Method Collection Time Receive d Time (Source) Location / / Volume Laterality 08/13/2020 7:58 AM 8:02 PHOTOGRAPHER [employer]URE AM PHOTOGRAPHER MOTION PICTURE Eleanor Dooley MD LAB - BLOOD ORDERABLES Performing Organization Address City/State/ZIP Code Phon e Number [address] [address] [facility] Partial thromboplastin time (08/13/2020 6:49 AM PHOTOGR[employer]) P athologist Signature PTT 34 22 - 37 sec 08/13/2020 [facility] 7:21 AM [facility] Specimen Anatomical Collection Method Collection Time Receive d Time (Source) Location / / Volume Laterality 08/13/2020 6:49 AM 1 7:02 PHOTOGRAPHER [employer]ION [employer]URE AM PHOTOGRAPHER MOTION PICTURE Sinziana Cornea DO LAB - BLOOD ORDERABLES Performing Organization Address City/[facility]/ZIP Code Phon e Number [address] [address] [facility] INR (08/13/2020 6:49 AM PHOTOGRAPHER [employer]URE) P athologist Signature INR 1.05 0.86 - 1.14 08/13/2020 [facility] 7:20 AM [facility] Specimen Anatomical Collection Method Collection Time Receive d Time (Source) Location / / Volume Laterality 08/13/2020 6:49 AM 7:02 PHOTOGRAPHER [employer]ION PICTURE AM PHOTOGRAPHER MOTION PICTURE Sinziana Cornea DO LAB - BLOOD ORDERABLES Performing Organization Address City/[facility]/ZIP Code Phon e Number [address] [address] [facility] (ABNORMAL) Fibrinogen activity (08/13/2020 6:49 AM PHOTOGRAPHER [employer]URE) P athologist Signature Fibrinogen 642 (H) 200 - 420 08/13/2020 [facility] mg/dL 7:20 AM [facility] Specimen Anatomical Collection Method Collection Time Receive d Time (Source) Location / / Volume Laterality 08/13/2020 6:49 AM 1 7:02 PHOTOGRAPHER [employer]ION PICTURE AM PHOTOGRAPHER MOTION PICTURE Sinziana Cornea DO LAB - BLOOD ORDERABLES Performing Organization Address City/[facility]/ZIP Code Phon e Number [address] [address] [facility] (ABNORMAL) Basic metabolic panel (08/13/2020 6:49 AM PHOTOGRAPHER [employer]URE) Analysis Performed At Patho logist Time Signature Sodium 142 133 - 144 08/13/[address] OF mmol/L 7:19 AM [facility] Potassium 3.3 (L) 3.4 - 5.3 08/13/2020 [facility] mmol/L 7:19 AM [facility] Chloride 109 96 - 110 08/13/2020 [facility] mmol/L 7:19 AM [facility] Carbon Dioxide 27 20 - 32 08/13/2020 [place] mmol/L 7:26 AM [facility] Anion Gap 6 3 - 14 08/13/2020 [place] mmol/L 7:26 AM [facility] Glucose 88 70 - 99 08/13/2020 [place] mg/dL 7:26 AM [facility] Urea Nitrogen 6 (L) 7 - 30 08/13/2020 [place] mg/dL 7:26 AM [facility] Creatinine 0.52 0.50 - 08/13/2020 [place] 1.00 mg/dL 7:26 AM [facility] GFR Estimate >90 >60 08/13/2020 [place] mL/min/{1. 7:26 AM [facility] 73_m2} HOSPITAL Comment: Non GFR Calc Starting 07/22/2018, serum creatinine ba sed estimated GFR (eGFR) will be calculated using the Chronic Kidney Dise [facility] Epidemiology Collaboration (CKD-EPI) equation. GFR Estimate If >90 >60 mL/min/{1.73_m2} 08/13/2020 7: 26 AM [facility] Comment: GFR Calc Starting 07/22/2018, serum creatinine ba sed estimated GFR (eGFR) will be calculated using the Chronic Kidney Dise [facility] Epidemiology Collaboration (CKD-EPI) equation. Calcium 8.3 (L) 8.5 - 10.1 mg/dL 08/13/2020 7:26 AM [facility] Specimen Anatomical Collection Method Collection Time Receive d Time (Source) Location / / Volume Laterality Blood specimen 08/13/2020 6:49 AM 021 7:02 (specimen) PHOTOGRAPHER MOTION PICTURE AM [facility] Yuniel Kilgore MD LAB - BLOOD ORDERABLES Performing Organization Address City/State/ZIP Code Phon e Number [facility] [address] [address] [facility] [address] [facility] [place] [address] [facility] [address] [address], [facility] [phone] Partial thromboplastin time (08/12/2020 7:30 PM PHOTOGR[employer]HER [employer]URE) P athologist Signature PTT 30 22 - 37 sec 08/12/2020 [facility] 7:48 PM [facility] Specimen Anatomical Collection Method Collection Time Receive d Time (Source) Location / / Volume Laterality Blood specimen 08/12/2020 7:30 PM 021 7:31 (specimen) PHOTOGR[employer]HER [employer]URE PM PHOTOGRAPHER [employer]ION PICTURE Sinziana Cornea DO LAB - BLOOD ORDERABLES Performing Organization Address City/[facility]/ZIP Code Phon e Number [address] [address] [facility] INR (08/12/2020 7:30 PM PHOTOGR[employer]HER [employer]) athologist Signature INR 0.99 0.86 - 1.14 08/12/2020 [facility] 7:47 PM [facility] Specimen Anatomical Collection Method Collection Time Receive d Time (Source) Location / / Volume Laterality Blood specimen 08/12/2020 7:30 PM 021 7:31 (specimen) PHOTOGRAPHER [employer]ION [employer]CTURE PM PHOTOGRAPHER [employer]ION PICTURE Sinziana Cornea DO LAB - BLOOD ORDERABLES Performing Organization Address City/[facility]/ZIP Code Phon e Number [address] [address] [facility] (ABNORMAL) Fibrinogen activity (08/12/2020 7:30 PM PHOTOGR[employer]) P athologist Signature Fibrinogen 625 (H) 200 - 420 08/12/2020 [facility] mg/dL 7:48 PM [facility] Specimen Anatomical Collection Method Collection Time Receive d Time (Source) Location / / Volume Laterality Blood specimen 08/12/2020 7:30 PM 021 7:31 (specimen) PHOTOGRAPHER [employer]ION PICTURE PM PHOTOGRAPHER MOTION PICTURE Sinziana Cornea DO LAB - BLOOD ORDERABLES Performing Organization Address City/[facility]/ZIP Code Phon e Number [place] [address] [facility] (ABNORMAL) CBC with platelets (08/12/2020 7:30 PM PHOTOGRAPHER [employer]URE) Patholo gist Method Time Signature WBC 9.9 4.0 - 11.0 08/12/2020 [facility] 10e9/L 7:39 PM [facility] RBC Count 3.39 (L) 3.8 - 5.2 08/12/2020 [facility] 10e12/L 7:39 PM [facility] Hemoglobin 10.4 (L) 11.7 - 08/12/2020 [facility] 15.7 g/dL 7:39 PM [facility] Hematocrit 31.8 (L) 35.0 - 08/12/[address] OF 47.0 % 7:39 PM [facility] MCV 94 78 - 100 08/12/2020 [facility] fl 7:39 PM [facility] MCH 30.7 26.5 - 08/12/[address] OF 33.0 pg 7:39 PM [facility] MCHC 32.7 31.5 - 08/12/2020 [facility] 36.5 g/dL 7:39 PM [facility] RDW 12.1 10.0 - 08/12/2020 [facility] 15.0 % 7:39 PM [facility] Platelet Count 224 150 - 450 08/12/2020 [facility] 10e9/L 7:39 PM [facility] Specimen Anatomical Collection Method Collection Time Receive d Time (Source) Location / / Volume Laterality Blood specimen 08/12/2020 7:30 PM 021 7:31 (specimen) PHOTOGRAPHER [employer]ION PICTURE PM PHOTOGRAPHER MOTION PICTURE Sinmaria tana Cornea DO LAB - BLOOD ORDERABLES Performing Organization Address City/[facility]/ZIP Code Phon e Number [facility] [address] [place] [address] [facility] EKG 12-lead, complete (08/12/2020 6:42 PM PHOTOGR[employer]HER [employer]URE) [facility] gist Method Time Signature Interpretation ECG Click View RADIOLOGY Image link RESULTS to view waveform and result Specimen (Source) Anatomical Collection Method Collection Time Re ceived Time Location / / Volume Laterality 08/12/2020 6:42 PM [employer] Sinziana Cornea DO ECG ORDERABLES Performing Organization Address City/[facility]/ZIP [facility] Phon e Number RADIOLOGY RESULTS XR Thoracic Lumbar Standing 2 Views (08/12/2020 6:07 PM PHOTOGR[employer]HER [employer]URE) Anatomical Region Laterality Modality C-spine, T-spine, L-spine Computed Radio graphy Specimen (Source) Anatomical Location Collection Method / Collectio n Time Received Time / Laterality Volume Impressions 08/12/2020 6:42 PM [employer] IMPRESSION: No change status post thoracolumbar fixation. No other bony abnormality identified. PREET DIAZ MD Narrative 08/12/2020 6:42 PM PH[employer] XR BONE SURVEY COMPLETE PEDS, XR THORACIC [...] Bone Survey Complete Peds (08/12/2020 6:06 PM PHOTOGRAPHER [employer]) Anatomical Region Laterality Modality C-spine, T-spine, L-spine, Neck, Arm, Forearm, Thigh, Bilate ral Computed Radiography Leg, Abdomen/Pelvis Specimen (Source) Anatomical Location Collection Method / Collectio n Time Received Time / Laterality Volume Impressions 08/12/2020 6:42 PM PH[employer]GR[employer] IMPRESSION: No change status post thoracolumbar fixation. No other bony abnormality identified. PREET DIAZ MD Narrative 08/12/2020 6:42 PM PHOTOGR[employer]HER [employer]URE XR BONE SURVEY COMPLETE PEDS, XR THORACIC [...] (ABNORMAL) TEG without Heparinase (08/12/2020 8:11 AM PHOTOGR[employer]HER [employer]) Patholo gist Method Time Signature R time until clot 4.4 (L) 5 - 10 08/12/2020 [facility] forms Minute 9:47 AM [facility] K time to spec clot 1.1 1 - 3 08/12/2020 [facility] strength Minute 9:47 AM [facility] Angle rate of clot 74.9 (H) 53 - 72 08/12/2020 [facility] Degrees 9:47 AM [facility] MA maximum clot 71.6 (H) 50 - 70 mm 08/12/2020 [facility] O F strength 9:47 AM [facility] CI hypercoagulation 3.4 (H) 0.0 - 3.0 08/12/2020 [facility] index Ratio 9:47 AM [facility] G actual clot 12.6 (H) 4.5 - 11.0 08/12/2020 [facility] Kd/sc 9:47 AM [facility] LY30 lysis at 30 2.8 0 - 8 % 08/12/2020 [facility] O F minutes 9:47 AM [facility] LY60 lysis at 60 6.9 0 - 15 % 08/12/2020 [facility] O F minutes 9:47 AM [facility] Specimen Anatomical Collection Method Collection Time Receive d Time (Source) Location / / Volume Laterality Blood specimen 08/12/2020 8:11 AM 021 8:12 (specimen) PHOTOGRAPHER [employer]ION PICTURE AM PHOTOGRAPHER [employer] PICTURE Sinziana Cornea DO LAB - BLOOD ORDERABLES Performing Organization Address City/State/ZIP Code Phon e Number [facility] [address] [place] [address] [facility] Partial thromboplastin time (08/11/2020 5:22 PM PHOTOGR[employer]HER [employer]URE) P athologist Signature PTT 36 22 - 37 sec 08/11/2020 [facility] 5:38 PM [facility] Specimen Anatomical Collection Method Collection Time Receive d Time (Source) Location / / Volume Laterality Blood specimen 08/11/2020 5:22 PM 021 5:23 (specimen) PHOTOGRAPHER [employer]ION PICTURE PM PHOTOGRAPHER MOTION PICTURE Sinziana Cornea DO LAB - BLOOD ORDERABLES Performing Organization Address City/State/ZIP Code Phon e Number [facility] (ABNORMAL) CBC with platelets (08/11/2020 5:22 PM PHOTOGR[employer]HER [employer]) Patholo gist Method Time Signature WBC 11.6 (H) 4.0 - 11.0 08/11/2020 [facility] 10e9/L 5:29 PM [facility] RBC Count 3.46 (L) 3.8 - 5.2 08/11/2020 [facility] 10e12/L 5:29 PM [facility] Hemoglobin 10.6 (L) 11.7 - 08/11/2020 [facility] 15.7 g/dL 5:29 PM [facility] Hematocrit 32.6 (L) 35.0 - 08/11/2020 [facility] OF 47.0 % 5:29 PM [facility] MCV 94 78 - 100 08/11/2020 [facility] OF fl 5:29 PM [facility] MCH 30.6 26.5 - 08/11/2020 [facility] 33.0 pg 5:29 PM [facility] MCHC 32.5 31.5 - 08/11/2020 [facility] 36.5 g/dL 5:29 PM [facility] RDW 12.2 10.0 - 08/11/2020 [facility] 15.0 % 5:29 PM [facility] Platelet Count 209 150 - 450 08/11/2020 [facility] 10e9/L 5:29 PM [facility] Specimen Anatomical Collection Method Collection Time Receive d Time (Source) Location / / Volume Laterality Blood specimen 08/11/2020 5:22 PM 021 5:23 (specimen) PHOTOGR[employer]HER [employer]ION PICTURE PM PHOTOGRAPHER [employer] PICTURE Sinziana Cornea DO LAB - BLOOD ORDERABLES Performing Organization Address City/State/ZIP Code Phon e Number [facility] [address] [place] [address] [facility] (ABNORMAL) Fibrinogen activity (08/11/2020 5:22 PM PHOTOGR[employer]HER [employer]) P athologist Signature Fibrinogen 564 (H) 200 - 420 08/11/2020 [facility] mg/dL 5:38 PM PHOTOGRAPHER [employer]ION [employer]URE [facility] Specimen Anatomical Collection Method Collection Time Receive d Time (Source) Location / / Volume Laterality Blood specimen 08/11/2020 5:22 PM 021 5:23 (specimen) PHOTOGRAPHER [employer]ION PICTURE PM PHOTOGRAPHER MOTION PICTURE Vivi Cornea DO LAB - BLOOD ORDERABLES Performing Organization Address City/State/ZIP Code Phon e Number [facility] (ABNORMAL) INR (08/11/2020 5:22 PM PHOTOGRAPHER [employer]ION PI[employer]URE) P athologist Signature INR 1.21 (H) 0.86 - 1.14 08/11/2020 [facility] 5:38 PM PHOTOGRAPHER MOTION [employer]CTURE [facility] Specimen Anatomical Collection Method Collection Time Receive d Time (Source) Location / / Volume Laterality Blood specimen 08/11/2020 5:22 PM 021 5:23 (specimen) PHOTOGRAPHER [employer]ION PICTURE PM PHOTOGRAPHER MOTION PICTURE Vivi Cornea DO LAB - BLOOD ORDERABLES Performing Organization Address City/State/ZIP Code Phon e Number [facility] (ABNORMAL) Fibrinogen activity (08/11/2020 10:03 AM PHOTOGR[employer]) P athologist Signature Fibrinogen 515 (H) 200 - 420 08/11/2020 [facility] OF mg/dL 10:50 AM [facility] Specimen Anatomical Collection Method Collection Time Receive d Time (Source) Location / / Volume Laterality Blood specimen 08/11/2020 10:03 1 (specimen) AM [employer] 10:04 AM [employer] Marli Limon MD LAB - BLOOD ORDERABLES Performing Organization Address City/State/ZIP Code Phon e Number [facility] [address] [place] [address] [facility] (ABNORMAL) TEG without Heparinase (08/11/2020 10:03 AM PH[employer]) Patholo gist Method Time Signature R time until clot 5.1 5 - 10 08/11/2020 [facility] OF forms Minute 12:47 PM [facility] K time to spec clot 1.1 1 - 3 08/11/2020 [facility] Y OF strength Minute 12:47 PM [facility] Angle rate of clot 72.6 (H) 53 - 72 08/11/2020 [facility] OF strength Degrees 12:47 PM [facility] MA maximum clot 68.4 50 - 70 mm 08/11/2020 [facility] O F strength 12:47 PM [facility] CI hypercoagulation 2.4 0.0 - 3.0 08/11/2020 [facility] Y OF index Ratio 12:47 PM [facility] G actual clot 10.8 4.5 - 11.0 08/11/2020 [facility]ITY [facility] Kd/sc 12:47 PM [facility] LY30 lysis at 30 4.3 0 - 8 % 08/11/2020 [facility]ITY O F minutes 12:47 PM [facility] LY60 lysis at 60 8.2 0 - 15 % 08/11/2020 [facility]ITY O F minutes 12:47 PM [facility] Specimen Anatomical Collection Method Collection Time Receive d Time (Source) Location / / Volume Laterality Blood specimen 08/11/2020 10:03 1 (specimen) AM [employer] 10:04 AM PH[employer]GR[employer] Marli Limon MD LAB - BLOOD ORDERABLES Performing Organization Address City/State/ZIP Code Phon e Number [facility] [address] [place] [address] [facility] Partial thromboplastin time (08/11/2020 10:03 AM PHOTOGR[employer]) P athologist Signature PTT 37 22 - 37 sec 08/11/2020 [facility] 10:50 AM [facility] Specimen Anatomical Collection Method Collection Time Receive d Time (Source) Location / / Volume Laterality Blood specimen 08/11/2020 10:03 1 (specimen) AM [employer] 10:04 AM PH[employer]GR[employer] Marli Limon MD LAB - BLOOD ORDERABLES Performing Organization Address City/State/ZIP Code Phon e Number [facility] [address] [place] [address] [facility] (ABNORMAL) INR (08/11/2020 10:03 AM PH[employer]GR[employer]) P athologist Signature INR 1.24 (H) 0.86 - 1.14 08/11/2020 [facility] OF 10:50 AM [facility] Specimen Anatomical Collection Method Collection Time Receive d Time (Source) Location / / Volume Laterality Blood specimen 08/11/2020 10:03 (specimen) AM [employer] 10:04 AM PHOTOGR[employer]HER [employer]URE Marli Limon MD LAB - BLOOD ORDERABLES Performing Organization Address City/State/ZIP Code Phon e Number [address] [address] [facility] (ABNORMAL) CBC with platelets (08/11/2020 10:03 AM PHOTOGRAPHER MOTION PICTURE) Patholo gist Method Time Signature WBC 11.1 (H) 4.0 - 11.0 08/11/2020 [facility] 10e9/L 10:42 AM [facility] RBC Count 3.51 (L) 3.8 - 5.2 08/11/2020 [facility] 10e12/L 10:42 AM [facility] Hemoglobin 10.6 (L) 11.7 - 08/11/2020 [facility] 15.7 g/dL 10:42 AM [facility] Hematocrit 32.8 (L) 35.0 - 08/11/2020 [facility] 47.0 % 10:42 AM [facility] MCV 93 78 - 100 08/11/2020 [facility] fl 10:42 AM [facility] MCH 30.2 26.5 - 08/11/2020 [facility] 33.0 pg 10:42 AM [facility] MCHC 32.3 31.5 - 08/11/2020 [facility] 36.5 g/dL 10:42 AM [facility] RDW 12.3 10.0 - 08/11/2020 [facility] 15.0 % 10:42 AM [facility] Platelet Count 210 150 - 450 08/11/2020 [facility] 10e9/L 10:42 AM [facility] Specimen Anatomical Collection Method Collection Time Receive d Time (Source) Location / / Volume Laterality Blood specimen 08/11/2020 10:03 (specimen) AM PHOTOGR[employer]HER [employer]URE 10:04 AM PHOTOGR[employer]HER [employer] Marli Limon MD LAB - BLOOD ORDERABLES Performing Organization Address City/State/ZIP Code Phon e Number [facility] [address] [place] [address] [facility] (ABNORMAL) Fibrinogen activity (08/11/2020 6:09 AM PHOTOGRAPHER MOTION PICTURE) P athologist Signature Fibrinogen 486 (H) 200 - 420 08/11/2020 [facility] mg/dL 6:33 AM PHOTOGRAPHER MOTION PICTURE [facility] Specimen Anatomical Collection Method Collection Time Receive d Time (Source) Location / / Volume Laterality Blood specimen 08/11/2020 6:09 AM 021 6:10 (specimen) PHOTOGRAPHER MOTION PICTURE AM PHOTOGRAPHER MOTION PICTURE Marli Limon MD LAB - BLOOD ORDERABLES Performing Organization Address City/State/ZIP Code Phon e Number [facility] (ABNORMAL) TEG without Heparinase (08/11/2020 6:09 AM PHOTOGRAPHER MOTION PI[employer]URE) Patholo gist Method Time Signature R time until clot 4.7 (L) 5 - 10 08/11/2020 [facility] forms Minute 7:39 AM [facility] K time to spec clot 1.1 1 - 3 08/11/2020 [facility] strength Minute 7:39 AM [facility] Angle rate of clot 73.3 (H) 53 - 72 08/11/2020 [facility] strength Degrees 7:39 AM [facility] MA maximum clot 69.6 50 - 70 mm 08/11/2020 [facility] F strength 7:39 AM [facility] CI hypercoagulation 2.8 0.0 - 3.0 08/11/2020 [facility] index Ratio 7:39 AM [facility] G actual clot 11.5 (H) 4.5 - 11.0 08/11/2020 [facility] strength Kd/sc 7:39 AM [facility] LY30 lysis at 30 2.8 0 - 8 % 08/11/2020 [facility] F minutes 7:39 AM [facility] LY60 lysis at 60 7.1 0 - 15 % 08/11/[address] O F minutes 7:39 AM [facility] Specimen Anatomical Collection Method Collection Time Receive d Time (Source) Location / / Volume Laterality Blood specimen 08/11/2020 6:09 AM 021 6:10 (specimen) PHOTOGRAPHER MOTION PICTURE AM PHOTOGRAPHER MOTION PICTURE Marli Limon MD LAB - BLOOD ORDERABLES Performing Organization Address City/State/ZIP Code Phon e Number [facility] [address] [place] [address] [facility] Partial thromboplastin time (08/11/2020 6:09 AM PHOTOGRAPHER MOTION PI[employer]URE) P athologist Signature PTT 34 22 - 37 sec 08/11/2020 [facility] 6:33 AM [facility] Specimen Anatomical Collection Method Collection Time Receive d Time (Source) Location / / Volume Laterality Blood specimen 08/11/2020 6:09 AM 021 6:10 (specimen) PHOTOGRAPHER MOTION PICTURE AM PHOTOGRAPHER MOTION PICTURE Marli Limon MD LAB - BLOOD ORDERABLES Performing Organization Address City/State/ZIP Code Phon e Number [facility] (ABNORMAL) INR (08/11/2020 6:09 AM PHOTOGRAPHER MOTION PICTURE) P athologist Signature INR 1.27 (H) 0.86 - 1.14 08/11/2020 [facility] 6:32 AM [facility] Specimen Anatomical Collection Method Collection Time Receive d Time (Source) Location / / Volume Laterality Blood specimen 08/11/2020 6:09 AM 021 6:10 (specimen) PHOTOGRAPHER MOTION PICTURE AM PHOTOGRAPHER MOTION PICTURE Marli Limon MD LAB - BLOOD ORDERABLES Performing Organization Address City/State/ZIP Code Phon e Number [facility] (ABNORMAL) CBC with platelets (08/11/2020 6:09 AM PHOTOGRAPHER MOTION PICTURE) Patholo gist Method Time Signature WBC 12.5 (H) 4.0 - 11.0 08/11/2020 [facility] 10e9/L 6:23 AM [facility] RBC Count 3.56 (L) 3.8 - 5.2 08/11/2020 [facility] 10e12/L 6:23 AM [facility] Hemoglobin 10.9 (L) 11.7 - 08/11/2020 [facility] 15.7 g/dL 6:23 AM [facility] Hematocrit 33.6 (L) 35.0 - 08/11/2020 [facility] 47.0 % 6:23 AM [facility] MCV 94 78 - 100 08/11/2020 [facility] fl 6:23 AM [facility] MCH 30.6 26.5 - 08/11/2020 [facility] 33.0 pg 6:23 AM [facility] MCHC 32.4 31.5 - 08/11/2020 [facility] 36.5 g/dL 6:23 AM [facility] RDW 12.2 10.0 - 08/11/2020 [facility] 15.0 % 6:23 AM [facility] Platelet Count 199 150 - 450 08/11/2020 [facility] 10e9/L 6:23 AM [facility] Specimen Anatomical Collection Method Collection Time Receive d Time (Source) Location / / Volume Laterality Blood specimen 08/11/2020 6:09 AM 021 6:10 (specimen) PHOTOGRAPHER MOTION PICTURE AM PHOTOGRAPHER MOTION PICTURE Marli Limon MD LAB - BLOOD ORDERABLES Performing Organization Address City/[facility]/ZIP Code Phon e Number [address] [address] [facility] Fibrinogen activity (08/10/2020 9:50 PM PHOTOGRAPHER MOTION PICTURE) P athologist Signature Fibrinogen 403 200 - 420 08/10/2020 [facility] mg/dL 10:41 PM [facility] Specimen Anatomical Collection Method Collection Time Receive d Time (Source) Location / / Volume Laterality Blood specimen 08/10/2020 9:50 PM 021 9:52 (specimen) PHOTOGRAPHER MOTION PICTURE PM PHOTOGRAPHER MOTION PICTURE Marli Limon MD LAB - BLOOD ORDERABLES Performing Organization Address City/[facility]/ZIP Code Phon e Number [address] [address] [facility] (ABNORMAL) TEG without Heparinase (08/10/2020 9:50 PM PHOTOGRAPHER MOTION PICTURE) Patholo gist Method Time Signature R time until clot 4.0 (L) 5 - 10 08/10/2020 [facility] forms Minute 11:56 PM [facility] K time to spec clot 1.2 1 - 3 08/10/2020 [facility] strength Minute 11:56 PM [facility] Angle rate of clot 73.2 (H) 53 - 72 08/10/2020 [facility] strength Degrees 11:56 PM [facility] MA maximum clot 64.4 50 - 70 mm 08/10/2020 [facility] F strength 11:56 PM [facility] CI hypercoagulation 2.6 0.0 - 3.0 08/10/2020 [facility] index Ratio 11:56 PM [facility] G actual clot 9.0 4.5 - 11.0 08/10/2020 [facility] Kd/sc 11:56 PM [facility] LY30 lysis at 30 2.6 0 - 8 % 08/10/2020 [facility] F minutes 11:56 PM [facility] LY60 lysis at 60 6.4 0 - 15 % 08/10/2020 [facility] F minutes 11:56 PM [facility] Specimen Anatomical Collection Method Collection Time Receive d Time (Source) Location / / Volume Laterality Blood specimen 08/10/2020 9:50 PM 021 9:53 (specimen) PHOTOGRAPHER MOTION PICTURE PM PHOTOGRAPHER MOTION PICTURE Marli Limon MD LAB - BLOOD ORDERABLES Performing Organization Address City/[facility] Code Phon e Number [facility] [address] [place] [address] [facility] Partial thromboplastin time (08/10/2020 9:50 PM PHOTOGRAPHER MOTION PICTURE) P athologist Signature PTT 31 22 - 37 sec 08/10/2020 [facility] 10:21 PM [facility] Specimen Anatomical Collection Method Collection Time Receive d Time (Source) Location / / Volume Laterality Blood specimen 08/10/2020 9:50 PM 021 9:52 (specimen) PHOTOGRAPHER MOTION PICTURE PM PHOTOGRAPHER MOTION PICTURE Marli Limon MD LAB - BLOOD ORDERABLES Performing Organization Address City/State/ZIP Code Phon e Number [address] [address] [facility] (ABNORMAL) INR (08/10/2020 9:50 PM PHOTOGRAPHER MOTION PICTURE) P athologist Signature INR 1.21 (H) 0.86 - 1.14 08/10/2020 [facility] 10:41 PM [facility] Specimen Anatomical Collection Method Collection Time Receive d Time (Source) Location / / Volume Laterality Blood specimen 08/10/2020 9:50 PM 021 9:52 (specimen) PHOTOGRAPHER MOTION PICTURE PM PHOTOGRAPHER MOTION PICTURE Marli Limon MD LAB - BLOOD ORDERABLES Performing Organization Address City/State/ZIP Code Phon e Number [address] [address] [facility] (ABNORMAL) CBC with platelets (08/10/2020 9:50 PM PHOTOGRAPHER MOTION PICTURE) Patholo gist Method Time Signature WBC 12.9 (H) 4.0 - 11.0 08/10/2020 [facility] 10e9/L 9:56 PM [facility] RBC Count 3.59 (L) 3.8 - 5.2 08/10/2020 [facility] 10e12/L 9:56 PM [facility] Hemoglobin 10.9 (L) 11.7 - 08/10/2020 [facility] 15.7 g/dL 9:56 PM [facility] Hematocrit 33.7 (L) 35.0 - 08/10/2020 [facility] 47.0 % 9:56 PM [facility] MCV 94 78 - 100 08/10/2020 [facility] fl 9:56 PM [facility] MCH 30.4 26.5 - 08/10/2020 [facility] 33.0 pg 9:56 PM [facility] MCHC 32.3 31.5 - 08/10/2020 [facility] 36.5 g/dL 9:56 PM [facility] RDW 12.3 10.0 - 08/10/2020 [facility] 15.0 % 9:56 PM [facility] Platelet Count 193 150 - 450 08/10/2020 [facility] 10e9/L 9:56 PM PHOTOGRAPHER MOTION PICTURE [facility] Specimen Anatomical Collection Method Collection Time Receive d Time (Source) Location / / Volume Laterality Blood specimen 08/10/2020 9:50 PM 021 9:52 (specimen) PHOTOGRAPHER MOTION PICTURE PM PHOTOGRAPHER MOTION PICTURE Marli Limon MD LAB - BLOOD ORDERABLES Performing Organization Address City/[facility]/ZIP Code Phon e Number [address] [address] [facility] (ABNORMAL) TEG without Heparinase (08/10/2020 4:00 PM PHOTOGRAPHER MOTION PICTURE) [facility] gist Method Time Signature R time until clot 3.2 (L) 5 - 10 08/10/2020 [facility] forms Minute 6:24 PM [facility] K time to spec clot 1.2 1 - 3 08/10/2020 [facility] OF strength Minute 6:24 PM [facility] Angle rate of clot 73.1 (H) 53 - 72 08/10/2020 [facility] strength Degrees 6:24 PM [facility] MA maximum clot 63.9 50 - 70 mm 08/10/2020 [facility] F strength 6:24 PM [facility] CI hypercoagulation 3.0 0.0 - 3.0 08/10/2020 [facility] OF index Ratio 6:24 PM [facility] G actual clot 8.8 4.5 - 11.0 08/10/2020 [facility] strength Kd/sc 6:24 PM [facility] LY30 lysis at 30 3.3 0 - 8 % 08/10/2020 [facility] F minutes 6:24 PM [facility] LY60 lysis at 60 7.3 0 - 15 % 08/10/2020 [facility] F minutes 6:24 PM [facility] Specimen Anatomical Collection Method Collection Time Receive d Time (Source) Location / / Volume Laterality Blood specimen 08/10/2020 4:00 PM 021 4:35 (specimen) PHOTOGRAPHER MOTION PICTURE PM PHOTOGRAPHER MOTION PICTURE Eden Moncada MD LAB - BLOOD ORDERABLES Performing Organization Address City/[facility] Code Phon e Number [address] [address] [facility] (ABNORMAL) CBC with platelets (08/10/2020 4:00 PM PHOTOGRAPHER MOTION PICTURE) Patholo gist Method Time Signature WBC 12.9 (H) 4.0 - 11.0 08/10/2020 [facility] 10e9/L 5:00 PM [facility] RBC Count 3.46 (L) 3.8 - 5.2 08/10/2020 [facility] 10e12/L 5:00 PM [facility] Hemoglobin 10.5 (L) 11.7 - 08/10/2020 [facility] 15.7 g/dL 5:00 PM [facility] Hematocrit 31.4 (L) 35.0 - 08/10/2020 [facility] 47.0 % 5:00 PM [facility] MCV 91 78 - 100 08/10/2020 [facility] fl 5:00 PM [facility] MCH 30.3 26.5 - 08/10/2020 [facility] 33.0 pg 5:00 PM [facility] MCHC 33.4 31.5 - 08/10/2020 [facility] 36.5 g/dL 5:00 PM [facility] RDW 12.4 10.0 - 08/10/2020 [facility] 15.0 % 5:00 PM [facility] Platelet Count 169 150 - 450 08/10/2020 [facility] 10e9/L 5:00 PM [facility] Specimen Anatomical Collection Method Collection Time Receive d Time (Source) Location / / Volume Laterality Blood specimen 08/10/2020 4:00 PM 021 4:35 (specimen) PHOTOGRAPHER MOTION PICTURE PM PHOTOGRAPHER MOTION PICTURE Eden Moncada MD LAB - BLOOD ORDERABLES Performing Organization Address City/State/ZIP Code Phon e Number [facility] [address] [place] [address] [facility] Partial thromboplastin time (08/10/2020 4:00 PM PHOTOGRAPHER MOTION PICTURE) P athologist Signature PTT 31 22 - 37 sec 08/10/2020 [facility] 4:50 PM PHOTOGRAPHER MOTION PICTURE [facility] Specimen Anatomical Collection Method Collection Time Receive d Time (Source) Location / / Volume Laterality Blood specimen 08/10/2020 4:00 PM 021 4:35 (specimen) PHOTOGRAPHER MOTION PICTURE PM PHOTOGRAPHER MOTION PICTURE Eden Moncada MD LAB - BLOOD ORDERABLES Performing Organization Address City/State/ZIP Code Phon e Number [facility] INR (08/10/2020 4:00 PM PHOTOGRAPHER MOTION PICTURE) P athologist Signature INR 1.14 0.86 - 1.14 08/10/2020 [facility] 4:49 PM [facility] Specimen Anatomical Collection Method Collection Time Receive d Time (Source) Location / / Volume Laterality Blood specimen 08/10/2020 4:00 PM 021 4:35 (specimen) PHOTOGRAPHER MOTION PICTURE PM PHOTOGRAPHER MOTION PICTURE Eden Moncada MD LAB - BLOOD ORDERABLES Performing Organization Address City/[facility]/ZIP Code Phon e Number [facility] OF [facility] Fibrinogen activity (08/10/2020 4:00 PM PHOTOGRAPHER MOTION PICTURE) P athologist Signature Fibrinogen 350 200 - 420 08/10/2020 [facility] mg/dL 4:50 PM [facility] Specimen Anatomical Collection Method Collection Time Receive d Time (Source) Location / / Volume Laterality Blood specimen 08/10/2020 4:00 PM 021 4:35 (specimen) PHOTOGRAPHER MOTION PICTURE PM PHOTOGRAPHER MOTION PICTURE Eden Moncada MD LAB - BLOOD ORDERABLES Performing Organization Address City/[facility]/ZIP [facility] Phon e Number [facility] OF [facility] OF [facility] (ABNORMAL) TEG without Heparinase (08/10/2020 10:00 AM PHOTOGRAPHER MOTION PICTURE) [facility] gist Method Time Signature R time until clot 3.2 (L) 5 - 10 08/10/2020 [facility] forms Minute 12:19 PM [facility] K time to spec clot 1.1 1 - 3 08/10/2020 [facility] OF strength Minute 12:19 PM [facility] Angle rate of clot 75.6 (H) 53 - 72 08/10/2020 [facility] strength Degrees 12:19 PM [facility] MA maximum clot 62.8 50 - 70 mm 08/10/2020 [facility] F strength 12:19 PM [facility] CI hypercoagulation 3.1 (H) 0.0 - 3.0 08/10/2020 [facility] index Ratio 12:19 PM [facility] G actual clot 8.4 4.5 - 11.0 08/10/2020 [facility] strength Kd/sc 12:19 PM [facility] LY30 lysis at 30 2.8 0 - 8 % 08/10/[address] O F minutes 12:19 PM [facility] LY60 lysis at 60 6.3 0 - 15 % 08/10/[address] O F minutes 12:19 PM [facility] Specimen Anatomical Collection Method Collection Time Receive d Time (Source) Location / / Volume Laterality Blood specimen 08/10/2020 10:00 (specimen) AM PHOTOGR[employer]HER [employer]URE 10:13 AM PHOTOGRAPHER MOTION PICTURE Eden Moncada MD LAB - BLOOD ORDERABLES Performing Organization Address City/State/ZIP Code Phon e Number [facility] [address] [place] [address] [facility] (ABNORMAL) CBC with platelets (08/10/2020 10:00 AM PHOTOGRAPHER MOTION PICTURE) Patholo gist Method Time Signature WBC 11.4 (H) 4.0 - 11.0 08/10/2020 [facility] 10e9/L 10:16 AM [facility] RBC Count 3.26 (L) 3.8 - 5.2 08/10/2020 [facility] 10e12/L 10:16 AM [facility] Hemoglobin 10.1 (L) 11.7 - 08/10/2020 [facility] 15.7 g/dL 10:16 AM [facility] Hematocrit 29.5 (L) 35.0 - 08/10/2020 [facility] 47.0 % 10:16 AM [facility] MCV 91 78 - 100 08/10/2020 UN[facility]ERSITY fl 10:16 AM [facility] MCH 31.0 26.5 - 08/10/2020 [facility] 33.0 pg 10:16 AM [facility] MCHC 34.2 31.5 - 08/10/2020 [facility] 36.5 g/dL 10:16 AM [facility] RDW 12.3 10.0 - 08/10/2020 [facility] 15.0 % 10:16 AM [facility] Platelet Count 182 150 - 450 08/10/2020 [facility] 10e9/L 10:16 AM [facility] Specimen Anatomical Collection Method Collection Time Receive d Time (Source) Location / / Volume Laterality Blood specimen 08/10/2020 10:00 1 (specimen) AM PHOTOGR[employer]HER [employer]URE 10:11 AM PHOTOGRAPHER MOTION PICTURE Eden Moncada MD LAB - BLOOD ORDERABLES Performing Organization Address City/State/ZIP Code Phon e Number [address] [address] [facility] Partial thromboplastin time (08/10/2020 10:00 AM PHOTOGRAPHER MOTION PICTURE) P athologist Signature PTT 30 22 - 37 sec 08/10/2020 [facility] 10:30 AM [facility] Specimen Anatomical Collection Method Collection Time Receive d Time (Source) Location / / Volume Laterality Blood specimen 08/10/2020 10:00 1 (specimen) AM PHOTOGRAPHER [employer]ION PI[employer]URE 10:11 AM PHOTOGRAPHER MOTION PICTURE Eden Moncada MD LAB - BLOOD ORDERABLES Performing Organization Address City/State/ZIP Code Phon e Number [address] [address] [facility] (ABNORMAL) INR (08/10/2020 10:00 AM PHOTOGRAPHER MOTION PICTURE) P athologist Signature INR 1.17 (H) 0.86 - 1.14 08/10/2020 [facility] 10:30 AM [facility] Specimen Anatomical Collection Method Collection Time Receive d Time (Source) Location / / Volume Laterality Blood specimen 08/10/2020 10:00 1 (specimen) AM PHOTOGRAPHER [employer]ION PICTURE 10:11 AM PHOTOGRAPHER MOTION PICTURE Eden Moncada MD LAB - BLOOD ORDERABLES Performing Organization Address City/State/ZIP Code Phon e Number [address] [address] [facility] Fibrinogen activity (08/10/2020 10:00 AM PHOTOGRAPHER MOTION PICTURE) P athologist Signature Fibrinogen 274 200 - 420 08/10/2020 [facility] mg/dL 10:30 AM [facility] Specimen Anatomical Collection Method Collection Time Receive d Time (Source) Location / / Volume Laterality Blood specimen 08/10/2020 10:00 1 (specimen) AM PHOTOGRAPHER [employer]ION [employer]CTURE 10:11 AM PHOTOGRAPHER MOTION PICTURE Eden Moncada MD LAB - BLOOD ORDERABLES Performing Organization Address City/[facility]/ZIP Code Phon e Number [facility] [address] [place], [place] [id number] [place] [address] (ABNORMAL) CBC with platelets (08/10/2020 4:00 AM PHOTOGRAPHER MOTION PICTURE) [facility] gist Method Time Signature WBC 13.8 (H) 4.0 - 11.0 08/10/2020 [facility] 10e9/L 4:35 AM [facility] RBC Count 3.32 (L) 3.8 - 5.2 08/10/2020 [facility] 10e12/L 4:35 AM [facility] Hemoglobin 10.1 (L) 11.7 - 08/10/2020 [facility] 15.7 g/dL 4:35 AM [facility] Hematocrit 29.9 (L) 35.0 - 08/10/2020 [facility] 47.0 % 4:35 AM [facility] MCV 90 78 - 100 08/10/2020 [facility] fl 4:35 AM [facility] MCH 30.4 26.5 - 08/10/2020 [facility] 33.0 pg 4:35 AM [facility] MCHC 33.8 31.5 - 08/10/2020 [facility] 36.5 g/dL 4:35 AM [facility] RDW 12.3 10.0 - 08/10/2020 [facility] 15.0 % 4:35 AM [facility] Platelet Count 202 150 - 450 08/10/2020 [facility] 10e9/L 4:35 AM [facility] Specimen Anatomical Collection Method Collection Time Receive d Time (Source) Location / / Volume Laterality Blood specimen 08/10/2020 4:00 AM 021 4:32 (specimen) PHOTOGRAPHER MOTION PICTURE AM PHOTOGRAPHER MOTION PICTURE Marina Becerril MD LAB - BLOOD ORDERABLES Performing Organization Address City/State/ZIP Code Phon e Number [address] [address] [facility] Fibrinogen activity (08/10/2020 4:00 AM PHOTOGRAPHER MOTION PICTURE) P athologist Signature Fibrinogen 238 200 - 420 08/10/2020 [facility] mg/dL 5:12 AM [facility] Specimen Anatomical Collection Method Collection Time Receive d Time (Source) Location / / Volume Laterality Blood specimen 08/10/2020 4:00 AM 021 4:32 (specimen) PHOTOGRAPHER MOTION PICTURE AM PHOTOGRAPHER MOTION PICTURE Marina Becerril MD LAB - BLOOD ORDERABLES Performing Organization Address City/[facility]/ZIP Code Phon e Number [address] [address] [facility] (ABNORMAL) INR (08/10/2020 4:00 AM PHOTOGRAPHER MOTION PICTURE) P athologist Signature INR 1.15 (H) 0.86 - 1.14 08/10/2020 [facility] 5:11 AM [facility] Specimen Anatomical Collection Method Collection Time Receive d Time (Source) Location / / Volume Laterality Blood specimen 08/10/2020 4:00 AM 021 4:32 (specimen) PHOTOGRAPHER MOTION PICTURE AM PHOTOGRAPHER MOTION PICTURE Marina Becerril MD LAB - BLOOD ORDERABLES Performing Organization Address City/[facility]/ZIP Code Phon e Number [address] [address] [facility] Partial thromboplastin time (08/10/2020 4:00 AM PHOTOGRAPHER MOTION PICTURE) P athologist Signature PTT 28 22 - 37 sec 08/10/2020 [facility] 5:11 AM [facility] Specimen Anatomical Collection Method Collection Time Receive d Time (Source) Location / / Volume Laterality Blood specimen 08/10/2020 4:00 AM 021 4:32 (specimen) PHOTOGRAPHER MOTION PICTURE AM PHOTOGRAPHER MOTION PICTURE aMrina Becerril MD LAB - BLOOD ORDERABLES Performing Organization Address City/[facility]/ZIP Code Phon e Number [address] [address] [facility] (ABNORMAL) TEG without Heparinase (08/10/2020 4:00 AM PHOTOGRAPHER MOTION PICTURE) Patholo gist Method Time Signature R time until clot 2.6 (L) 5 - 10 08/10/2020 [facility] forms Minute 6:17 AM [facility] K time to spec clot 1.0 1 - 3 08/10/2020 [facility] OF strength Minute 6:17 AM [facility] Angle rate of clot 76.9 (H) 53 - 72 08/10/2020 [facility] strength Degrees 6:17 AM [facility] MA maximum clot 64.1 50 - 70 mm 08/10/2020 [facility] O F strength 6:17 AM [facility] CI hypercoagulation 3.8 (H) 0.0 - 3.0 08/10/2020 [facility] OF index Ratio 6:17 AM [facility] G actual clot 8.9 4.5 - 11.0 08/10/2020 [facility] strength Kd/sc 6:17 AM [facility] LY30 lysis at 30 2.4 0 - 8 % 08/10/2020 [facility] O F minutes 6:17 AM [facility] LY60 lysis at 60 5.7 0 - 15 % 08/10/2020 [facility] F minutes 6:17 AM [facility] Specimen Anatomical Collection Method Collection Time Receive d Time (Source) Location / / Volume Laterality Blood specimen 08/10/2020 4:00 AM 021 4:32 (specimen) PHOTOGRAPHER MOTION PICTURE AM PHOTOGRAPHER MOTION PICTURE Marina Becerril MD LAB - BLOOD ORDERABLES Performing Organization Address City/[facility] Phon e Number [place] [address] [facility] Fibrinogen activity (08/09/2020 10:00 PM PHOTOGRAPHER MOTION PICTURE) P athologist Signature Fibrinogen 206 200 - 420 08/09/2020 [facility] mg/dL 10:58 PM [facility] Specimen Anatomical Collection Method Collection Time Receive d Time (Source) Location / / Volume Laterality 08/09/2020 10:00 08/09/2020 PM PHOTOGRAPHER MOTION PICTURE 10:11 PM PHOTOGRAPHER MOTION PICTURE Janine Leone MD LAB - BLOOD ORDERABLES Performing Organization Address City/[facility] Phon e Number [place] [phone] [facility] Partial thromboplastin time (08/09/2020 10:00 PM PHOTOGRAPHER MOTION PICTURE) P athologist Signature PTT 26 22 - 37 sec 08/09/2020 [facility] 10:28 PM [facility] Specimen Anatomical Collection Method Collection Time Receive d Time (Source) Location / / Volume Laterality Blood specimen 08/09/2020 10:00 1 (specimen) PM [employer] 10:11 PM PHOTOGRAPHER MOTION PICTURE Janine Leone MD LAB - BLOOD ORDERABLES Performing Organization Address City/[facility]/ZIP Code Phon e Number [address] [address] [facility] INR (08/09/2020 10:00 PM PHOTOGRAPHER MOTION PICTURE) P athologist Signature INR 1.11 0.86 - 1.14 08/09/2020 [facility] 10:27 PM [facility] Specimen Anatomical Collection Method Collection Time Receive d Time (Source) Location / / Volume Laterality Blood specimen 08/09/2020 10:00 1 (specimen) PM [employer]GR[employer] 10:11 PM PHOTOGRAPHER MOTION PICTURE Janine Leone MD LAB - BLOOD ORDERABLES Performing Organization Address City/[facility]/ZIP Code Phon e Number [address] [address] [facility] (ABNORMAL) TEG without Heparinase (08/09/2020 10:00 PM PHOTOGRAPHER MOTION PICTURE) Patholo gist Method Time Signature R time until clot 3.1 (L) 5 - 10 08/10/2020 [facility] OF forms Minute 1:26 AM [facility] K time to spec clot 1.1 1 - 3 08/10/2020 [facility] Y OF strength Minute 1:26 AM [facility] Angle rate of clot 74.3 (H) 53 - 72 08/10/2020 [facility] OF strength Degrees 1:26 AM [facility] MA maximum clot 63.9 50 - 70 mm 08/10/2020 [facility]ITY O F strength 1:26 AM [facility] CI hypercoagulation 3.3 (H) 0.0 - 3.0 08/10/2020 [facility]IT Y OF index Ratio 1:26 AM [facility] G actual clot 8.8 4.5 - 11.0 08/10/2020 [facility] Kd/sc 1:26 AM [facility] LY30 lysis at 30 2.1 0 - 8 % 08/10/[address] O F minutes 1:26 AM [facility] LY60 lysis at 60 5.5 0 - 15 % 08/10/[address] O F minutes 1:26 AM [facility] Specimen Anatomical Collection Method Collection Time Receive d Time (Source) Location / / Volume Laterality Blood specimen 08/09/2020 10:00 (specimen) PM [employer] 10:11 PM PHOTOGRAPHER [employer]ION PI[employer]URE Janine Leone MD LAB - BLOOD ORDERABLES Performing Organization Address City/State/ZIP Code Phon e Number [facility] [address] [place] [address] [facility] (ABNORMAL) CBC with platelets (08/09/2020 10:00 PM PHOTOGRAPHER MOTION PICTURE) [facility] gist Method Time Signature WBC 12.1 (H) 4.0 - 11.0 08/09/2020 [facility] OF 10e9/L 10:14 PM [facility] RBC Count 3.38 (L) 3.8 - 5.2 08/09/2020 [facility] OF 10e12/L 10:14 PM [facility] Hemoglobin 10.4 (L) 11.7 - 08/09/2020 [facility] OF 15.7 g/dL 10:14 PM [facility] Hematocrit 30.3 (L) 35.0 - 08/09/2020 [facility] OF 47.0 % 10:14 PM [facility] MCV 90 78 - 100 08/09/2020 [facility] OF fl 10:14 PM [facility] MCH 30.8 26.5 - 08/09/2020 [facility] OF 33.0 pg 10:14 PM [facility] MCHC 34.3 31.5 - 08/09/2020 [facility] OF 36.5 g/dL 10:14 PM [facility] RDW 12.1 10.0 - 08/09/2020 [facility] OF 15.0 % 10:14 PM [facility] Platelet Count 211 150 - 450 08/09/2020 [facility] OF 10e9/L 10:14 PM [facility] Specimen Anatomical Collection Method Collection Time Receive d Time (Source) Location / / Volume Laterality Blood specimen 08/09/2020 10:00 (specimen) PM [employer] 10:11 PM PHOTOGRAPHER MOTION PICTURE Janine Leone MD LAB - BLOOD ORDERABLES Performing Organization Address [facility] Phon e Number [address] [address] [facility] (ABNORMAL) TEG without Heparinase (08/09/2020 5:54 PM PHOTOGRAPHER MOTION PICTURE) [facility] gist Method Time Signature R time until clot 3.2 (L) 5 - 10 08/09/2020 [facility] OF forms Minute 8:34 PM [facility] K time to spec clot 0.8 (L) 1 - 3 08/09/2020 [facility]IT Y OF strength Minute 8:34 PM [facility] Angle rate of clot 78.4 (H) 53 - 72 08/09/2020 [facility] OF strength Degrees 8:34 PM [facility] MA maximum clot 68.3 50 - 70 mm 08/09/2020 [facility]ITY O F strength 8:34 PM [facility] CI hypercoagulation 4.1 (H) 0.0 - 3.0 08/09/2020 [facility]ERSIT Y OF index Ratio 8:34 PM [facility] G actual clot 10.8 4.5 - 11.0 08/09/2020 UNIVERSITY strength Kd/sc 8:34 PM [facility] LY30 lysis at 30 1.2 0 - 8 % 08/09/2020 [facility]ITY O F minutes 8:34 PM [facility] LY60 lysis at 60 3.8 0 - 15 % 08/09/2020 [facility]ITY O F minutes 8:34 PM [facility] Specimen Anatomical Collection Method Collection Time Receive d Time (Source) Location / / Volume Laterality Blood specimen 08/09/2020 5:54 PM 021 5:59 (specimen) PHOTOGRAPHER [employer]ION PICTURE PM PHOTOGRAPHER MOTION PICTURE Janine Leone MD LAB - BLOOD ORDERABLES Performing Organization Address City/[facility] Code Phon e Number [place] [phone] [facility] Fibrinogen activity (08/09/2020 5:45 PM PHOTOGRAPHER MOTION PICTURE) P athologist Signature Fibrinogen 205 200 - 420 08/09/2020 [facility] OF mg/dL 6:23 PM [facility] Specimen Anatomical Collection Method Collection Time Receive d Time (Source) Location / / Volume Laterality Blood specimen 08/09/2020 5:45 PM 021 5:51 (specimen) PHOTOGRAPHER MOTION PICTURE PM PHOTOGRAPHER MOTION PICTURE Janine Leone MD LAB - BLOOD ORDERABLES Performing Organization Address City/[facility]/ZIP Code Phon e Number [address] [address] [facility] Partial thromboplastin time (08/09/2020 5:45 PM PHOTOGRAPHER MOTION PICTURE) athologist Signature PTT 26 22 - 37 sec 08/09/2020 [facility] 6:23 PM [facility] Specimen Anatomical Collection Method Collection Time Receive d Time (Source) Location / / Volume Laterality Blood specimen 08/09/2020 5:45 PM 021 5:51 (specimen) PHOTOGRAPHER MOTION PICTURE PM PHOTOGRAPHER MOTION PICTURE Janine Leone MD LAB - BLOOD ORDERABLES Performing Organization Address City/[facility]/ZIP Code Phon e Number [address] [address] [facility] INR (08/09/2020 5:45 PM PHOTOGRAPHER MOTION PICTURE) P athologist Signature INR 1.14 0.86 - 1.14 08/09/2020 [facility] 6:23 PM [facility] Specimen Anatomical Collection Method Collection Time Receive d Time (Source) Location / / Volume Laterality Blood specimen 08/09/2020 5:45 PM 021 5:51 (specimen) PHOTOGRAPHER MOTION PICTURE PM PHOTOGRAPHER MOTION PICTURE Janine Leone MD LAB - BLOOD ORDERABLES Performing Organization Address City/[facility]/ZIP Code Phon e Number [address] [address] [facility] (ABNORMAL) CBC with platelets (08/09/2020 5:45 PM PHOTOGRAPHER MOTION PICTURE) [facility] gist Method Time Signature WBC 12.6 (H) 4.0 - 11.0 08/09/2020 [facility] OF 10e9/L 5:57 PM [facility] RBC Count 3.41 (L) 3.8 - 5.2 08/09/2020 [facility] OF 10e12/L 5:57 PM [facility] Hemoglobin 10.5 (L) 11.7 - 08/09/2020 [facility]ITY OF 15.7 g/dL 5:57 PM [facility] Hematocrit 30.8 (L) 35.0 - 08/09/2020 [facility] OF 47.0 % 5:57 PM [facility] MCV 90 78 - 100 08/09/2020 UN[facility]ITY OF fl 5:57 PM [facility] MCH 30.8 26.5 - 08/09/2020 [facility] OF 33.0 pg 5:57 PM [facility] MCHC 34.1 31.5 - 08/09/2020 [facility]ITY OF 36.5 g/dL 5:57 PM [facility] RDW 12.1 10.0 - 08/09/[address] OF 15.0 % 5:57 PM [facility] Platelet Count 203 150 - 450 08/09/2020 [facility]ITY OF 10e9/L 5:57 PM [facility] Specimen Anatomical Collection Method Collection Time Receive d Time (Source) Location / / Volume Laterality Blood specimen 08/09/2020 5:45 PM 021 5:51 (specimen) PHOTOGRAPHER MOTION PICTURE PM PHOTOGRAPHER MOTION PICTURE Janine Leone MD LAB - BLOOD ORDERABLES Performing Organization Address City/State/ZIP Code Phon e Number [facility] [address] [place] [address] [facility] Methicillin Resist/Sens S. aureus PCR (08/09/2020 2:10 PM PHOTOGRAPHER MOTION PICTURE) [facility] gist Method Time Signature Specimen Nares 08/09/2020 U OF M [facility] Description 2:39 PM PHOTOGRAPHER MOTION PICTURE [facility] Methicillin Negative NEG^Negat 08/09/2020 [facility] OF Resist/Sens S. mindy 5:53 PM [facility] aureus PCR [facility] Comment: MRSA Negative: SA Negative ??MRSA and St aphylococcus aureus target DNA not detected, presumed negative for MRSA and SA colonization or the number of bacteria present may be below the limit of detection for the assay. FDA approved assay performed using [employer] eneXpert(R) real-time PCR. Specimen (Source) Anatomical Collection Method Collection Time Re ceived Time Location / / Volume Laterality Nasal structure SWAB FROM NASAL 08/09/2020 2:10 2020 2:45 (body structure) SINUS / Unknown PM PHOTOGRAPHER MOTION PICTURE PM PHOTOGRAPHER MOTION PICTURE Janine Leone MD LAB - MICRO GENERAL ORDERABL ES Performing Organization Address City/[facility]/ZIP Code Phon e Number [facility] [address] [place], [place] [address] [place] [address] U [facility] Iron and iron binding capacity (08/09/2020 1:45 PM PHOTOGRAPHER MOTION PICTURE) P athologist Signature Iron 74 35 - 180 08/10/2020 [facility] M [facility] ug/dL 12:34 PM [facility] Iron Binding 306 240 - 430 08/10/2020 [facility] Cap ug/dL 12:34 PM [facility] Iron Saturation 24 15 - 46 % 08/10/2020 U OF M [facility] Index 12:34 PM [facility] Specimen Anatomical Collection Method Collection Time Receive d Time (Source) Location / / Volume Laterality 08/09/2020 1:45 PM 2:04 PHOTOGRAPHER MOTION PICTURE PM PHOTOGRAPHER MOTION PICTURE Janine Leone MD LAB - BLOOD ORDERABLES Performing Organization Address City/[facility]/ZIP Code Phon e Number U [facility] (ABNORMAL) TEG without Heparinase (08/09/2020 1:45 PM PHOTOGRAPHER MOTION PICTURE) Patholo gist Method Time Signature R time until clot 3.7 (L) 5 - 10 08/09/2020 [facility] OF forms Minute 6:32 PM [facility] K time to spec clot 1.2 1 - 3 08/09/2020 UN[facility]ERSIT Y OF strength Minute 6:32 PM [facility] Angle rate of clot 72.4 (H) 53 - 72 08/09/2020 [facility] OF strength Degrees 6:32 PM [facility] MA maximum clot 62.9 50 - 70 mm 08/09/2020 UN[facility]ERSITY O F strength 6:32 PM [facility] CI hypercoagulation 2.5 0.0 - 3.0 08/09/2020 UN[facility]ERSIT Y OF index Ratio 6:32 PM [facility] G actual clot 8.5 4.5 - 11.0 08/09/2020 [facility] OF [facility] Kd/sc 6:32 PM [facility] LY30 lysis at 30 1.8 0 - 8 % 08/09/[address] O F minutes 6:32 PM [facility] LY60 lysis at 60 4.9 0 - 15 % 08/09/[address] O F minutes 6:32 PM [facility] Specimen Anatomical Collection Method Collection Time Receive d Time (Source) Location / / Volume Laterality Blood specimen 08/09/2020 1:45 PM 021 2:04 (specimen) PHOTOGRAPHER MOTION PICTURE PM PHOTOGRAPHER MOTION PICTURE Janine Leone MD LAB - BLOOD ORDERABLES Performing Organization Address City/State/ZIP Code Phon e Number [facility] [address] [place] [address] [facility] (ABNORMAL) Fibrinogen activity (08/09/2020 1:45 PM PHOTOGRAPHER MOTION PICTURE) P athologist Signature Fibrinogen 174 (L) 200 - 420 08/09/2020 U OF [facility] mg/dL 2:21 PM [facility] Specimen Anatomical Collection Method Collection Time Receive d Time (Source) Location / / Volume Laterality Blood specimen 08/09/2020 1:45 PM 021 2:04 (specimen) PHOTOGRAPHER MOTION PICTURE PM PHOTOGRAPHER MOTION PICTURE Janine Leone MD LAB - BLOOD ORDERABLES Performing Organization Address City/State/ZIP Code Phon e Number U [facility] INR (08/09/2020 1:45 PM PHOTOGRAPHER MOTION PICTURE) P athologist Signature INR 1.14 0.86 - 1.14 08/09/2020 U [facility] M [facility] 2:20 PM [facility] Specimen Anatomical Collection Method Collection Time Receive d Time (Source) Location / / Volume Laterality Blood specimen 08/09/2020 1:45 PM 021 2:04 (specimen) PHOTOGRAPHER MOTION PICTURE PM PHOTOGRAPHER MOTION PICTURE Janine Leone MD LAB - BLOOD ORDERABLES Performing Organization Address City/State/ZIP Code Phon e Number U OF [facility] U OF [facility] Partial thromboplastin time (08/09/2020 1:45 PM PHOTOGRAPHER MOTION PICTURE) P athologist Signature PTT 28 22 - 37 sec 08/09/2020 [facility] [place] [facility] 2:21 PM [facility] Specimen Anatomical Collection Method Collection Time Receive d Time (Source) Location / / Volume Laterality Blood specimen 08/09/2020 1:45 PM 021 2:04 (specimen) PHOTOGRAPHER MOTION PICTURE PM PHOTOGRAPHER MOTION PICTURE Janine Leone MD LAB - BLOOD ORDERABLES Performing Organization Address City/State/ZIP Code Phon e Number U OF [facility] U OF M [facility] (ABNORMAL) CBC with platelets (08/09/2020 1:45 PM PHOTOGRAPHER MOTION PICTURE) Patholo gist Method Time Signature WBC 11.6 (H) 4.0 - 11.0 08/09/2020 [facility]ERSITY OF 10e9/L 2:08 PM [facility] RBC Count 3.47 (L) 3.8 - 5.2 08/09/2020 [facility] OF 10e12/L 2:08 PM [facility] Hemoglobin 10.6 (L) 11.7 - 08/09/2020 [facility]ITY OF 15.7 g/dL 2:08 PM [facility] Hematocrit 31.4 (L) 35.0 - 08/09/2020 [facility]ERSITY OF 47.0 % 2:08 PM [facility] MCV 91 78 - 100 08/09/2020 UN[facility]ITY OF fl 2:08 PM [facility] MCH 30.5 26.5 - 08/09/2020 [facility]ITY OF 33.0 pg 2:08 PM [facility] MCHC 33.8 31.5 - 08/09/2020 UN[facility]ERSITY OF 36.5 g/dL 2:08 PM [facility] RDW 12.0 10.0 - 08/09/2020 [facility]ITY OF 15.0 % 2:08 PM [facility] Platelet Count 238 150 - 450 08/09/2020 UN[facility]ERSITY OF 10e9/L 2:08 PM PHOTOGRAPHER MOTION PICTURE [facility] Specimen Anatomical Collection Method Collection Time Receive d Time (Source) Location / / Volume Laterality Blood specimen 08/09/2020 1:45 PM 021 2:04 (specimen) PHOTOGRAPHER MOTION PICTURE PM PHOTOGRAPHER MOTION PICTURE Janine Leone MD LAB - BLOOD ORDERABLES Performing Organization Address City/State/ZIP Code Phon e Number [facility] [address] [place] [address] [facility] Prealbumin (08/09/2020 1:45 PM PHOTOGRAPHER MOTION PICTURE) P athologist Signature Prealbumin 24 15 - 45 08/09/2020 [facility] mg/dL 2:27 PM PHOTOGRAPHER MOTION PICTURE [facility] Specimen Anatomical Collection Method Collection Time Receive d Time (Source) Location / / Volume Laterality Blood specimen 08/09/2020 1:45 PM 021 2:04 (specimen) PHOTOGRAPHER MOTION PICTURE PM PHOTOGRAPHER MOTION PICTURE Janine Leone MD LAB - BLOOD ORDERABLES Performing Organization Address City/State/ZIP Code Phon e Number U [facility] OF [facility] Magnesium (08/09/2020 1:45 PM PHOTOGRAPHER MOTION PICTURE) P athologist Signature Magnesium 1.6 1.6 - 2.3 08/09/2020 U [facility] M [facility] mg/dL 2:24 PM PHOTOGRAPHER MOTION PICTURE [facility] Specimen Anatomical Collection Method Collection Time Receive d Time (Source) Location / / Volume Laterality Blood specimen 08/09/2020 1:45 PM 021 2:04 (specimen) PHOTOGRAPHER MOTION PICTURE PM PHOTOGRAPHER MOTION PICTURE Janine Leone MD LAB - BLOOD ORDERABLES Performing Organization Address City/State/ZIP Code Phon e Number U [facility] Calcium ionized whole blood (08/09/2020 1:45 PM PHOTOGRAPHER MOTION PICTURE) P athologist Signature Calcium 4.4 4.4 - 5.2 08/09/2020 UN[facility]ERSITY OF Ionized Whole mg/dL 2:08 PM [facility] Specimen Anatomical Collection Method Collection Time Receive d Time (Source) Location / / Volume Laterality Blood specimen 08/09/2020 1:45 PM 01/05/2 021 2:04 (specimen) PHOTOGRAPHER MOTION PICTURE PM PHOTOGRAPHER MOTION PICTURE Janine Leone MD LAB - BLOOD ORDERABLES Performing Organization Address City/State/ZIP Code Phon e Number [facility] [address] [place] [address] [facility] (ABNORMAL) Renal Panel (08/09/2020 1:45 PM PHOTOGRAPHER MOTION PICTURE) P athologist Signature Sodium 139 133 - 144 08/09/2020 U OF M mmol/L 2:18 PM [facility] Potassium 3.7 3.4 - 5.3 08/09/2020 U OF M mmol/L 2:18 PM [facility] Chloride 106 96 - 110 08/09/2020 U OF M mmol/L 2:18 PM [facility] Carbon Dioxide 25 20 - 32 08/09/2020 U OF M mmol/L 2:24 PM [facility] Anion Gap 8 3 - 14 08/09/2020 U OF M mmol/L 2:24 PM [facility] Glucose 164 (H) 70 - 99 08/09/2020 U OF M mg/dL 2:24 PM [facility] Urea Nitrogen 12 7 - 30 08/09/2020 U OF M mg/dL 2:24 PM [facility] Creatinine 0.66 0.50 - 08/09/2020 U OF M 1.00 mg/dL 2:24 PM [facility] GFR Estimate >90 >60 08/09/2020 U OF M mL/min/{1. 2:24 PM [facility] AM[facility] 73_m2} [facility] Comment: Non GFR Calc Starting 07/22/2018, serum creatinine ba sed estimated GFR (eGFR) will be calculated using the Chronic Kidney Dise [facility] Epidemiology Collaboration (CKD-EPI) equation. GFR Estimate If >90 >60 mL/min/{1.73_m2} 08/09/2020 2: 24 PM U OF M [facility] Black [facility] Comment: GFR Calc Starting 07/22/2018, serum creatinine ba sed estimated GFR (eGFR) will be calculated using the Chronic Kidney Dise [facility] Epidemiology Collaboration (CKD-EPI) equation. Calcium 7.9 (L) 8.5 - 10.1 mg/dL 08/09/2020 2:24 PM PHOTOGRAPHER MOTION PICTURE [facility] Phosphorus 3.0 2.5 - 4.5 mg/dL 08/09/2020 2:24 PM PHOTOGRAPHER [employer]ION PICTURE [facility] Albumin 3.5 3.4 - 5.0 g/dL 08/09/2020 2:24 PM PHOTOGRAPHER MOTION PICTURE [facility] Specimen Anatomical Collection Method Collection Time Receive d Time (Source) Location / / Volume Laterality Blood specimen 08/09/2020 1:45 PM 021 2:04 (specimen) PHOTOGRAPHER [employer]ION PICTURE PM PHOTOGRAPHER MOTION PICTURE Janine Leone MD LAB - BLOOD ORDERABLES Performing Organization Address City/State/ZIP Code Phon e Number U OF [facility] U OF [facility] XR Surgery ELIER L/T 5 Min Fluoro (08/09/2020 12:05 PM PHOTOGRAPHER MOTION PICTURE) Specimen (Source) Anatomical Location Collection Method / Collectio n Time Received Time / Laterality Volume Narrative RADIANT - 08/09/2020 12:06 PM PHOTOGRAPHER [employer]ION [employer]URE This exam was marked as non-reportable because it will not be read by a radiologist or a [place] non-radiologis t provider. Catina Ha MD IMG DIAGNOSTIC IMAGING ORDER DANO Performing Organization Address City/[facility]/ZIP Code Phon e Number [facility] (ABNORMAL) TEG without Heparinase (08/09/2020 11:28 AM PHOTOGRAPHER MOTION PICTURE) [facility] gist Method Time Signature R time until clot 3.1 (L) 5 - 10 08/09/2020 UN[facility]ERSITY OF forms Minute 1:37 PM PHOTOGRAPHER MOTION PICTURE [facility] K time to spec clot 0.8 (L) 1 - 3 08/09/2020 UNIVERSIT Y OF strength Minute 1:37 PM [facility] Angle rate of clot 76.1 (H) 53 - 72 08/09/2020 UN[facility]ERSITY OF strength Degrees 1:37 PM [facility] MA maximum clot 68.3 50 - 70 mm 08/09/2020 UN[facility]ERSITY O F strength 1:37 PM [facility] CI hypercoagulation 4.0 (H) 0.0 - 3.0 08/09/2020 UNIVERSIT Y OF index Ratio 1:37 PM [facility] G actual clot 10.8 4.5 - 11.0 08/09/2020 [facility] Kd/sc 1:37 PM PHOTOGRAPHER MOTION PICTURE [facility] LY30 lysis at 30 0.9 0 - 8 % 08/09/2020 UNIVERSITY O F minutes 1:37 PM PHOTOGRAPHER MOTION PICTURE [facility] LY60 lysis at 60 3.4 0 - 15 % 08/09/[address] O F minutes 1:37 PM [facility] Specimen Anatomical Collection Method Collection Time Receive d Time (Source) Location / / Volume Laterality 08/09/2020 11:28 08/09/2020 AM PHOTOGRAPHER [employer]ION PI[employer]URE 11:49 AM PHOTOGRAPHER MOTION PICTURE Catina Ha MD LAB - BLOOD ORDERABLES Performing Organization Address City/[facility]/ZIP Code Phon e Number [place] [address] [facility] Partial thromboplastin time (08/09/2020 11:28 AM PHOTOGRAPHER MOTION PICTURE) P athologist Signature PTT 26 22 - 37 sec 08/09/2020 [facility] 12:06 PM [facility] Specimen Anatomical Collection Method Collection Time Receive d Time (Source) Location / / Volume Laterality 08/09/2020 11:28 08/09/2020 AM PH[employer]GR[employer]ION [employer] 11:49 AM PHOTOGRAPHER MOTION PICTURE Catina Ha MD LAB - BLOOD ORDERABLES Performing Organization Address City/State/ZIP Code Phon e Number [address] [address] [facility] INR (08/09/2020 11:28 AM PHOTOGRAPHER MOTION PICTURE) P athologist Signature INR 1.14 0.86 - 1.14 08/09/2020 [facility] 12:06 PM [facility] Specimen Anatomical Collection Method Collection Time Receive d Time (Source) Location / / Volume Laterality 08/09/2020 11:28 08/09/2020 AM PH[employer]GR[employer] 11:49 AM PHOTOGRAPHER MOTION PICTURE Catina Ha MD LAB - BLOOD ORDERABLES Performing Organization Address City/State/ZIP Code Phon e Number [address] [address] [facility] (ABNORMAL) Fibrinogen activity (08/09/2020 11:28 AM PHOTOGRAPHER MOTION PICTURE) P athologist Signature Fibrinogen 178 (L) 200 - 420 08/09/2020 [facility] OF mg/dL 12:06 PM [facility] Specimen Anatomical Collection Method Collection Time Receive d Time (Source) Location / / Volume Laterality 08/09/2020 11:28 08/09/2020 AM PH[employer]GR[employer]URE 11:49 AM PHOTOGRAPHER MOTION PICTURE Catina Ha MD LAB - BLOOD ORDERABLES Performing Organization Address City/[facility]/ZIP Code Phon e Number [facility] [address] [place] [address] [facility] (ABNORMAL) CBC with platelets (08/09/2020 11:28 AM PHOTOGRAPHER MOTION PICTURE) [facility] gist Method Time Signature WBC 17.3 (H) 4.0 - 11.0 08/09/2020 [facility] OF 10e9/L 11:52 AM [facility] RBC Count 3.60 (L) 3.8 - 5.2 08/09/2020 [facility] OF 10e12/L 11:52 AM [facility] Hemoglobin 11.0 (L) 11.7 - 08/09/2020 [facility] OF 15.7 g/dL 11:52 AM [facility] Hematocrit 32.7 (L) 35.0 - 08/09/2020 [facility] OF 47.0 % 11:52 AM [facility] MCV 91 78 - 100 08/09/2020 [facility] OF fl 11:52 AM [facility] MCH 30.6 26.5 - 08/09/2020 [facility] OF 33.0 pg 11:52 AM [facility] MCHC 33.6 31.5 - 08/09/2020 [facility] OF 36.5 g/dL 11:52 AM [facility] RDW 11.9 10.0 - 08/09/2020 [facility] OF 15.0 % 11:52 AM [facility] Platelet Count 324 150 - 450 08/09/2020 [facility]ITY OF 10e9/L 11:52 AM [facility] Specimen Anatomical Collection Method Collection Time Receive d Time (Source) Location / / Volume Laterality 08/09/2020 11:28 08/09/2020 AM [employer] 11:49 AM PHOTOGRAPHER MOTION PICTURE Catina Ha MD LAB - BLOOD ORDERABLES Performing Organization Address City/State/ZIP Code Phon e Number [facility] [address] [place] [address] [facility] (ABNORMAL) TEG without Heparinase (08/09/2020 9:50 AM PHOTOGRAPHER MOTION PICTURE) Patholo gist Method Time Signature R time until clot 3.3 (L) 5 - 10 08/09/2020 UN[facility]ERSITY OF forms Minute 11:45 AM [facility] K time to spec clot 0.9 (L) 1 - 3 08/09/2020 UNIVERSIT Y OF strength Minute 11:45 AM [facility] Angle rate of clot 76.3 (H) 53 - 72 08/09/2020 [facility] strength Degrees 11:45 AM [facility] MA maximum clot 70.5 (H) 50 - 70 mm 08/09/2020 [facility] O F strength 11:45 AM [facility] CI hypercoagulation 4.1 (H) 0.0 - 3.0 08/09/2020 [facility] Y OF index Ratio 11:45 AM [facility] G actual clot 12.0 (H) 4.5 - 11.0 08/09/2020 [facility] Kd/sc 11:45 AM [facility] LY30 lysis at 30 0.9 0 - 8 % 08/09/2020 [facility] O F minutes 11:45 AM [facility] LY60 lysis at 60 3.5 0 - 15 % 08/09/2020 [facility] O F minutes 11:45 AM [facility] Specimen Anatomical Collection Method Collection Time Receive d Time (Source) Location / / Volume Laterality 08/09/2020 9:50 AM [facility] 10:01 AM [facility] Catina Ha MD LAB - BLOOD ORDERABLES Performing Organization Address City/State/ZIP Code Phon e Number [facility] [address] [place] [address] [facility] Partial thromboplastin time (08/09/2020 9:50 AM [facility] [employer] [facility]) P athologist Signature PTT 26 22 - 37 sec 08/09/2020 [facility] 10:18 AM [facility] Specimen Anatomical Collection Method Collection Time Receive d Time (Source) Location / / Volume Laterality 08/09/2020 9:50 AM 01/05/202 1 [facility] [employer] [facility] 10:01 AM [facility] [employer] [facility] Catina Ha MD LAB - BLOOD ORDERABLES Performing Organization Address City/State/ZIP Code Phon e Number [address] [address] [facility] INR (08/09/2020 9:50 AM [facility] [employer]) P athologist Signature INR 1.06 0.86 - 1.14 08/09/2020 [facility] 10:27 AM [facility] Specimen Anatomical Collection Method Collection Time Receive d Time (Source) Location / / Volume Laterality 08/09/2020 9:50 AM [facility] [employer] [facility] 10:01 AM [facility] Catina Ha MD LAB - BLOOD ORDERABLES Performing Organization Address City/[facility]/ZIP Code Phon e Number [address] [address] [facility] Fibrinogen activity (08/09/2020 9:50 AM [facility]) P athologist Signature Fibrinogen 202 200 - 420 08/09/2020 [facility] mg/dL 10:27 AM [facility] Specimen Anatomical Collection Method Collection Time Receive d Time (Source) Location / / Volume Laterality 08/09/2020 9:50 AM [facility] [employer] [facility] 10:01 AM [facility] Catina Ha MD LAB - BLOOD ORDERABLES Performing Organization Address City/[facility]/ZIP Code Phon e Number [address] [address] [facility] (ABNORMAL) Arterial Panel (08/09/2020 9:50 AM PH[facility]) [facility] gist Method Time Signature pH Arterial 7.45 7.35 - 08/09/2020 [facility] 7.45 pH 10:05 AM [facility] pCO2 Arterial 33 (L) 35 - 45 mm 08/09/2020 [facility] Hg 10:05 AM [facility] pO2 Arterial 183 (H) 80 - 105 08/09/2020 [facility] mm Hg 10:05 AM [facility] Bicarbonate 23 21 - 28 08/09/2020 [facility] Arterial mmol/L 10:05 AM [facility] Base Deficit Art 0.6 mmol/L 08/09/2020 [facility] O F 10:05 AM [facility] Comment: Reference range: -9.0 to 1.8 FIO2 STAT 08/09/2020 10:02 AM [facility] Comment: OR 17 FIO2 34% Sodium 138 133 - 144 08/09/2020 10:05 AM [facility] mmol/L [facility] Potassium 3.5 3.4 - 5.3 08/09/2020 10:05 AM [facility] mmol/L [facility] Hemoglobin 11.5 (L) 11.7 - 15.7 08/09/2020 10:[address] [facility] g/dL [facility] Glucose 149 (H) 70 - 99 mg/dL 08/09/2020 10:05 AM [facility] Calcium Ionized 4.3 (L) 4.4 - 5.2 mg/dL 08/09/2020 10:05 A M [facility] Whole Blood [facility] Specimen Anatomical Collection Method Collection Time Receive d Time (Source) Location / / Volume Laterality 08/09/2020 9:50 AM [facility] [employer] 10:01 AM [facility] Catina Ha MD LAB - BLOOD ORDERABLES Performing Organization Address City/State/ZIP Code Phon e Number [facility] [address] [place] [address] [facility] : Laboratory Miscellaneous Order (08/09/2020 9:00 AM [facility]) Component Value Ref Test Analysis Performed At [facility] Range Method Time Signature Miscellaneous BIOPSY IN 08/09/2020 [facility] Test HISTOLOGY. TEST 2:46 PM [facility] AMPLATZ REQUEST BEING CHILDRENS INVESTIGATED BY [facility] STEFANIE ECHEVARRIA MD. Comment: SLC 1430 08.09.20 Specimen (Source) Anatomical Collection Method Collection Time Re ceived Time Location / / Volume Laterality Tissue specimen TOPOGRAPHY UNKNOWN 08/09/2020 9:25 AM (specimen) / Unknown [facility] [employer] [facility] Comment: Skin- Freeze in liquid Nitrogen for Future Fibroblast Culture for Genetic Testing Specimen placed in dry ice until liquid nitrogen available - [employer] will need to be contacted (unable to reach from OR) Catina Ha MD LAB - BLOOD ORDERABLES Performing Organization Address City/State/ZIP Code Phon e Number [facility] TEG without Heparinase (08/09/2020 8:45 AM [facility]) Patholo gist Method Time Signature R time until clot 5.4 5 - 10 08/09/2020 [facility] forms Minute 10:41 AM [facility] K time to spec clot 1.5 1 - 3 08/09/2020 [facility] strength Minute 10:41 AM [facility] Angle rate of clot 68.7 53 - 72 08/09/2020 [facility] strength Degrees 10:41 AM [facility] MA maximum clot 63.1 50 - 70 mm 08/09/2020 [facility] O F strength 10:41 AM [facility] CI hypercoagulation 1.1 0.0 - 3.0 08/09/2020 [facility] index Ratio 10:41 AM [facility] G actual clot 8.6 4.5 - 11.0 08/09/2020 [facility] Kd/sc 10:41 AM [facility] LY30 lysis at 30 1.0 0 - 8 % 08/09/2020 [facility] O F minutes 10:41 AM [facility] LY60 lysis at 60 4.2 0 - 15 % 08/09/2020 [facility] O F minutes 10:41 AM [facility] Specimen Anatomical Collection Method Collection Time Receive d Time (Source) Location / / Volume Laterality 08/09/2020 8:45 AM 9:01 [employer] AM [facility] Catina Ha MD LAB - BLOOD ORDERABLES Performing Organization Address City/State/ZIP Code Phon e Number [facility] [address] [place] [address] [facility] Partial thromboplastin time (08/09/2020 8:45 AM [facility]) P athologist Signature PTT 31 22 - 37 sec 08/09/2020 [facility] 9:15 AM [facility] Specimen Anatomical Collection Method Collection Time Receive d Time (Source) Location / / Volume Laterality 08/09/2020 8:45 AM 9:01 [employer] AM [employer] Catina Ha MD LAB - BLOOD ORDERABLES Performing Organization Address City/State/ZIP Code Phon e Number [address] [address] [facility] INR (08/09/2020 8:45 AM [facility] [employer]) athologist Signature INR 1.07 0.86 - 1.14 08/09/2020 [facility] 9:14 AM [facility] Specimen Anatomical Collection Method Collection Time Receive d Time (Source) Location / / Volume Laterality 08/09/2020 8:45 AM 9:01 [employer] AM [facility] Catina Ha MD LAB - BLOOD ORDERABLES Performing Organization Address City/State/ZIP Code Phon e Number [address] [address] [facility] Fibrinogen activity (08/09/2020 8:45 AM [facility] [employer]) athologist Signature Fibrinogen 210 200 - 420 08/09/2020 [facility] mg/dL 9:15 AM [facility] Specimen Anatomical Collection Method Collection Time Receive d Time (Source) Location / / Volume Laterality 08/09/2020 8:45 AM 9:01 [employer] AM [facility] Catina Ha MD LAB - BLOOD ORDERABLES Performing Organization Address City/State/ZIP Code Phon e Number [address] [address] [facility] (ABNORMAL) CBC with platelets (08/09/2020 8:45 AM [facility] [employer]) [facility] gist Method Time Signature WBC 6.5 4.0 - 11.0 08/09/2020 [facility] 10e9/L 9:06 AM [facility] RBC Count 3.70 (L) 3.8 - 5.2 08/09/2020 [facility] 10e12/L 9:06 AM [facility] Hemoglobin 11.2 (L) 11.7 - 08/09/2020 [facility] 15.7 g/dL 9:06 AM [facility] Hematocrit 33.1 (L) 35.0 - 08/09/2020 [facility] 47.0 % 9:06 AM [facility] MCV 90 78 - 100 08/09/2020 [facility] fl 9:06 AM [facility] MCH 30.3 26.5 - 08/09/2020 [facility] 33.0 pg 9:06 AM [facility] MCHC 33.8 31.5 - 08/09/2020 [facility] 36.5 g/dL 9:06 AM [facility] RDW 11.9 10.0 - 08/09/2020 [facility] 15.0 % 9:06 AM [facility] Platelet Count 285 150 - 450 08/09/2020 [facility] 10e9/L 9:06 AM [facility] Specimen Anatomical Collection Method Collection Time Receive d Time (Source) Location / / Volume Laterality 08/09/2020 8:45 AM 9:01 PH[facility] [employer] AM [facility] Catina Ha MD LAB - BLOOD ORDERABLES Performing Organization Address City/State/ZIP Code Phon e Number [facility] [address] [place] [address] [facility] (ABNORMAL) Arterial Panel (08/09/2020 8:45 AM [facility]) Patholo gist Method Time Signature pH Arterial 7.47 (H) 7.35 - 08/09/[address] OF 7.45 pH 9:07 AM [facility] pCO2 Arterial 35 35 - 45 08/09/[address] mm Hg 9:07 AM [facility] pO2 Arterial 305 (H) 80 - 105 08/09/[address] mm Hg 9:07 AM [facility] Bicarbonate 25 21 - 28 08/09/2020 [facility] Arterial mmol/L 9:07 AM [facility] Base Excess Art 1.6 mmol/L 08/09/2020 [facility] 9:07 AM [facility] Comment: Reference range: -9.0 to 1.8 FIO2 STAT 08/09/2020 9:02 AM [facility] Comment: FIO2 100% OR17 Sodium 139 133 - 144 08/09/2020 9:07 AM [facility] mmol/L [facility] Potassium 3.4 3.4 - 5.3 08/09/2020 9:07 AM [facility] mmol/L [facility] Hemoglobin 11.2 (L) 11.7 - 15.7 08/09/2020 9:[address] g/dL [facility] Glucose 126 (H) 70 - 99 mg/dL 08/09/2020 9:07 AM [facility] Calcium Ionized 4.5 4.4 - 5.2 mg/dL 08/09/2020 9:07 AM [facility] Whole Blood [facility] Specimen Anatomical Collection Method Collection Time Receive d Time (Source) Location / / Volume Laterality 08/09/2020 8:45 AM 9:01 [facility] AM [facility] [employer] Catina Ha MD LAB - BLOOD ORDERABLES Performing Organization Address City/State/ZIP Code Phon e Number [address] [address] [facility] Blood component (08/09/2020 7:30 AM [facility] [employer]) [facility] Method Time Signature Unit Number [id number] 08/09/2020 [facility] 8:57 AM [facility] Blood Red Blood 08/09/2020 [facility] Component Cells 8:57 AM [facility] Leukocyte [facility] BANK Division 00 08/09/2020 [facility] Number 8:57 AM [facility] Status of No longer 08/13/2020 [facility] Unit available 3:00 AM [facility] 08/13/2020 HOSPITAL 0300 Blood Product [id number] 08/09/2020 [facility] Code 8:57 AM [facility] Unit Status RET [facility] Specimen Anatomical Collection Method Collection Time Receive d Time (Source) Location / / Volume Laterality 08/09/2020 7:30 AM 7:41 [employer] AM [employer] Monica Deleon MD LABORATORY Performing Organization Address City/State/ZIP Code Phon e Number [facility] [address] [place], [place] [address] [place] [id number] [place], [place] [address], [facility] [address] [place], [place] [address], [facility] [phone] Blood component (08/09/2020 7:30 AM [facility] [employer]) [facility] gist Method Time Signature Unit Number [id number] 08/09/2020 [facility] 8:57 AM [facility] Blood Red Blood 08/09/2020 [facility] Component Cells 8:57 AM [facility] Leukocyte [facility] BANK Division 00 08/09/2020 [facility] Number 8:57 AM [facility] Status of No longer 08/13/2020 [facility] Unit available 3:00 AM [facility] 08/13/2020 HOSPITAL 0300 Blood Product [id number] 08/09/2020 [facility] Code 8:57 AM [facility] Unit Status RET [facility] Specimen Anatomical Collection Method Collection Time Receive d Time (Source) Location / / Volume Laterality 08/09/2020 7:30 AM 7:41 [employer] AM [employer]URE Monica Deleon MD LABORATORY Performing Organization Address City/[facility]/ZIP Code Phon e Number [facility] [address] [place] [address] [address] [place] [address] [address] [address] Glucose (08/09/2020 7:30 AM [facility]) P athologist Signature Glucose 75 70 - 99 08/09/2020 [facility] mg/dL 8:01 AM [facility] Specimen Anatomical Collection Method Collection Time Receive d Time (Source) Location / / Volume Laterality Blood specimen 08/09/2020 7:30 AM 021 7:43 (specimen) [employer] AM [facility] Catina Ha MD LAB - BLOOD ORDERABLES Performing Organization Address City/[facility]/ZIP Code Phon e Number [address] [address] [facility] ABO/Rh type and screen (08/09/2020 7:30 AM [facility]) [facility] gist Method Time Signature Units Ordered 2 08/09/2020 [facility] 8:57 AM [facility] ABO O 08/09/2020 [facility] 8:22 AM [facility] RH(D) Pos [facility] Antibody Neg 08/09/2020 [facility] Screen 8:22 AM [facility] Test Valid University 08/09/2020 [facility] 7:51 AM [facility] B[facility] w Hospital Specimen 08/12/2020 08/09/2020 [facility] OF Expires 7:51 AM [facility] Crossmatch Red Blood 08/09/2020 [facility] OF Cells 8:57 AM [facility] Specimen Anatomical Collection Method Collection Time Receive d Time (Source) Location / / Volume Laterality Blood specimen 08/09/2020 7:30 AM 021 7:41 (specimen) [employer] AM [employer] Monica Deleon MD LAB - BLOOD BANK TEST ORDER Performing Organization Address City/[facility]/ZIP [facility] Phon e Number [place] [address] [facility] HCG qualitative urine (08/09/2020 7:00 AM [facility] [employer]) Analysis Performed At Patho logist Time Signature HCG Qual Urine Negative NEG^Negati 08/09/2020 UNIVERSITY ve 7:23 AM [facility] Comment: This test is for screening purposes. ??R esults should be interpreted along with the clinical picture. ??Confirmation te sting is available if warranted by ordering [id number], HCG Quantitative Pregna ncy. Specimen Anatomical Collection Method Collection Time Receive d Time (Source) Location / / Volume Laterality Urine specimen URINE SPECIMEN 08/09/2020 7:00 AM 08/09 7:09 (specimen) OBTAINED BY CLEAN PHOTOGRAPHER [employer]ION PICTURE AM [facility] CATCH PROCEDURE / Unknown Catina Ha MD LAB - URINE ORDERABLES Performing Organization Address City/[facility]/ZIP Code Phon e Number [address] [address] [facility] LAB RESULT - HIM SCAN (07/25/2020 12:00 AM [facility] [employer]) Specimen (Source) Anatomical Location Collection Method / [...] (TYLENOL) tablet 650 Given 08/16/2020 8:47 AM [facility] 650 mg mg 650 mg, Oral, EVERY 6 HOURS RT, First dose on Sat08/15/20 at 1500, Maximum acetaminophen dose from all sources = 75 mg/kg/day not to exceed 4 grams/day. Given 08/16/2020 2:13 AM [facility] [employer] [facility] 650 mg Given 08/15/2020 8:14 PM [employer] 650 mg bisacodyl (DULCOLAX) Suppository 10 mg 10 mg, Rectal, DAILY PRN, constipation, Starting on Sat08/12/20 at 0719, Please give in afternoon if no stool in the morning on 08/12/20. Hol d for loose stools. calcium carbonate (TUMS) chewable tablet 500 Given 07/2021 8:47 AM [facility] [employer] 500 mg mg 500 mg, Oral, DAILY, First dose (after last reorder) on Sat08/10/20 at 0800 Given 08/15/2020 8:44 AM [facility] 500 mg Given 08/14/2020 8:48 AM [facility] 500 mg cholecalciferol (VITAMIN D3) 125 mcg (5000 Given 08/16/2020 8:47 AM [facility] 125 mcg units) capsule 125 mcg 125 mcg, Oral, DAILY, First dose (after last reorder) on Sat08/10/20 at 0800, Note: 125 mcg = 5000 units Given 08/15/2020 8:44 AM [facility] [employer] 125 mcg Given 08/14/2020 8:48 AM [facility] 125 mcg diazepam (VALIUM) half-tab 2.5 mg Given 08/16/2020 10:08 AM [facility] [employer] 2.5 mg 2.5 mg, Oral, EVERY 6 HOURS, First dose on Sat08/15/20 at 0930 Given 08/16/2020 4:12 AM [facility] [employer] 2.5 mg Given 08/15/2020 9:03 PM [employer] 2.5 mg hemostatic matrix with thrombin (SURGIFLO) Given 08/09/2020 10:2 3 AM [facility] 1 kit kit PRN, Starting on Sat08/09/20 at 0909, Intra-procedure Given 08/09/2020 9:10 AM [facility] 1 kit Given 08/09/2020 9:09 AM [facility] 1 kit Lidocaine (LIDOCARE) Patch/Med Applied 08/15/2020 3:21 PM 1 patch Other (see 4 % Patch 1 patch PH[employer] comments) 1 patch, Transdermal, EVERY 24 HOURS, [...] % 0.2-0.4 mL Given 08/12/2020 12:56 PM [facility] 0.2 mLs Left Arm 0.2-0.4 mL, Other, EVERY 1 HOUR PRN, pain with VAD insertion., Starting on Sat08/12/20 at 1228, Do NOT give if patient has a history of allergy to any local anesthetic or any korey product. MAX dose 1 mL subcutaneously OR intradermally in divided doses as needed for VAD insertion. Given 08/12/2020 12:55 PM [facility] 0.2 mLs Righ t Arm lidocaine patch [...] response. norethindrone-ethinyl estradiol Given 08/16/2020 8:48 AM [facility] 1 t ablet (MICROGESTIN 08/24) 1-20 MG-MCG per tablet 1 tablet 1 tablet, Oral, DAILY, First dose on Sat08/10/20 at 0800 Given 08/15/2020 8:45 AM [facility] [employer] 1 tablet Given 08/14/2020 8:49 AM [facility] [employer] 1 tablet ondansetron (ZOFRAN) injection 4 mg Given 08/12/2020 5:43 AM [facility] [employer] 4 mg 4 mg, Intravenous, Administer over 5 Minutes, EVERY 6 HOURS PRN, nausea, vomiting, Starting on Sat08/10/20 at 0040, Irritant. For ordered IV doses 0.1-4 mg, give IV Push undiluted over 2-5 minutes. Given 08/12/2020 12:42 AM [facility] [employer] 4 mg Given 08/11/2020 6:10 PM [facility] [employer] 4 mg oxyCODONE (ROXICODONE) tablet 5 mg Given 08/16/2020 1:12 PM [employer] 5 mg 5 mg, Oral, EVERY 4 HOURS PRN, moderate to severe pain, Starting on Sat08/15/20 at 1143 Given 08/16/2020 9:15 AM [facility] 5 mg Given 08/16/2020 5:21 AM [facility] [employer] 5 mg polyethylene glycol (MIRALAX) Packet 17 g Given 08/14/2020 1:45 PM [employer] 17 g 17 g, Oral, DAILY PRN, [...] Packet 17 g Given 08/12/2020 8:46 AM [facility] 17 g 17 g, Oral, 2 TIMES [...] capsule 150 mg Given 08/16/2020 8:47 AM [facility] 150 mg 150 mg, Oral, 2 TIMES DAILY, First dose (after last modification) on Sat08/15/20 at 2000 Given 08/15/2020 8:14 PM [employer] 150 mg sennosides (SENOKOT) tablet 8.6 mg Given 08/14/2020 8:48 AM [facility] [employer] 8.6 mg 8.6 mg, Oral, 2 TIMES DAILY, First dose on Sat08/10/20 at 1100, Hold for loose stools. Given 08/12/2020 8:46 AM [facility] [employer] 8.6 mg Given 08/11/2020 9:03 PM [facility] 8.6 mg sertraline (ZOLOFT) tablet 100 mg Given 08/16/2020 8:47 AM [facility] 100 mg 100 mg, Oral, DAILY, First dose on Sat08/10/20 at 0800 Given 08/15/2020 8:44 AM [facility] 100 mg Given 08/14/2020 8:48 AM [facility] 100 mg sodium chloride 0.9% (bottle) irrigation Given 08/09/2020 12:16 PM [employer] 500 mLs PRN, Starting on Sat08/09/20 at 1216, Intra-procedure sodium chloride 0.9% infusion Rate/Dose Change 08/14/2020 10:16 PM [facility] 3 mL/hr at 3 mL/hr, Intravenous, CONTINUOUS, carrier, Starting on Ariela 08/11/20 at 2100, Until Sat08/16/20 at 1542 Rate/Dose Verify 08/14/2020 8:00 PM [facility] [employer] 15 mL/hr Rate/Dose Verify 08/14/2020 3:00 PM [facility] 15 mL/hr tranexamic acid (LYSTEDA) half-tab 975 m g Given 08/16/2020 10:08 AM [facility] [employer] 975 mg 975 mg, Oral, EVERY 6 HOURS, First dose on Sat08/10/20 at 1600 Given 08/16/2020 4:12 AM [facility] [employer] 975 mg Given 08/15/2020 11:39 PM [facility] [employer] 975 mg documented in this encounter Active and Recently Administered Medications Times are shown in PHOTOGR[employer]HER [employer]URE. Scheduled Medication Order 08/14/2020 08/15/2020 08/16/2020 acetaminophen (TYLENOL) tablet 650 mg 15 08 (Given - Provider: Tess Gutierrez RN)2013 (Given - Provider: Romana Fernandez, RUTH) 0213 (Given - Provider: Tiff Collins, RUTH)0847 (Given - Provider: Tess Gutierrez RN)1400 (Canceled [...] RUTH)1008 (Given - Provider: Tess Gutierrez RN) 2.5 mg, Oral, EVERY 6 HOURS, First dose on Sat08/15/20 at 0930 diazepam (VALIUM) injection 2.5 mg (CANCELED) 0207 (Gi abiola - Provider: David Ayala, RUTH)0848 (Given - Provider: Tonya Hull, RN)1426 (Given - Provider: Tonya Hull, RN)2010 (Given - Provider: Berlin Downs, RUTH) 0236 (Given - Provider: [place] Downs RN)0839 (Not Given - Provider: Tess Guiterrez RN - Reason: Other - Comment: changed [...] Entry - Provider: Robert Ying [facility] - Comment: Automatically canceled at discontinue of medication order) 1 patch, Transdermal, EVERY 24 HOURS, Ad notereader over 12 Hours, First dose on Sat08/14/20 [...] 0417 (Patch/Med Removed - Provider: Tiff Collins, RN)1430 (Canceled Entry - Provider: Orders Generic Provider - Comment: Automatically canceled at discontinue of medication order) 1 patch, Transdermal, EVERY 24 HOURS, Ad notereader over 12 Hours, First dose (after last [...] Hull RN) 0845 (Giv en - Provider: eTss Gutierrez RN) 0848 (Given - Provider: Tess Gutierrez RN ) 1 tablet, Oral, DAILY, First [...] Reason: Contraindicated) 0851 (Not Given - Provider: eTss Gutierrez RN - Reason: Patient/family refused) 17 [...] RUTH) 846 (Given - Provider: Tess Gutierrez, RUTH ) 150 mg, Oral, 2 TIMES DAILY, First dose (after last modification) on 08/15/20 at 2000 pregabalin (LYRICA) capsule 75 mg (CANCELED) 0848 (Giv en - Provider: Tonya Hull RN)2011 (Given - Provider: [place] Downs, RUTH) 0844 (Given - Provider: Tess Gutierrez RN) [...] Henna Murray, RUTH)2339 (Given - Provider: Henna Murray RN) 0412 (Given - Provider: Tiff Collins RN)1008 (Given - Provider: Tess Gutierrez RN) 975 mg, Oral, EVERY 6 HOURS, First dose on Sat08/10/20 at 1600 Continuous Medication Order 08/14/2020 08/15/2020 08/16/2020 fentaNYL (SUBLIMAZE) RUG SETTER VELVET 50 mcg/mL OPIOID NAIVE (CANCE LED) 0715 (Rate/Dose Verify - Provider: David Ayala RN)0716 (Rate/Dose Verify - Provider: David Ayala RN - Comment: double-checked with Tonya Villagomez RN)1200 (Stopped - Provider: Tonya Hull RN) Continuous Rate: 0 mcg/hr, RUG SETTER VELVET Dose: 20 mcg, RUG SETTER VELVET Lockout: 60 Minutes, One Hour Limit: 25 mcg, Clinician Bolus (one time dose): 25 mcg, Starting on 08/13/20 at 1800, Hold the dose for analgesic side ef fects. Notify the provider to assess for uncontrolled pain or analgesic side effects. Do NOT give any additional opioids while on RUG SETTER VELVET unless provider authorized., Intravenous ketamine (KETALAR) 2 [...] 3 mL/hr, Intravenous, CONTINUOUS, Car rier and online media buyer infusion, Starting on Ariela 08/11/20 at 1800, [...] (CANCELED) 1715 (Given - Provider: Tiff Gonzales, RUTH - Comment: verified with Sherrie Morgan RN) [...] RN) 0106 (Given - Provider: Tiff Collins , RUTH)0521 (Given - Provider: Tiff Collins, RUTH)0915 (Given [...] stools. documented in this encounter Care Teams Laundry Routeman Relationship Specialty Start Date End Date Josh Carrero PCP - General Family Medicine 08/09/[address] [address] Catina Ha MD MD Orthopedics 03/08/[address] [place] [id number] Mariposa Atwood Assigned PCP 04/29/20 11/12/20 MD Nettie [address] [place], [place] [id number] Catina Ha MD Assigned Musculoskeletal 05/27/[address] [place], [place] [id number] Provider [place], [place] [phone] Eugenio Finney Assigned Pediatric 06/19/2005/07 MD David Specialist Provider [address] [facility] [address] [place], [place] [address] documented as of this encounter
[2022-07-02 21:51] LABS: Strep A DNA Probe* NOT DETECTED (Not Detectd)
--- OUTSIDE RECORDS SUMMARY | 2022-07-02 21:51 | XMS_ITS | Encounter Summary ---
:2001 Author Organization [place] Address [address] [facility] [place] [address] Care Team Providers Name Role Phone [facility], [facility] Primary Care Provide r Julian Spencer MD Unavailable Mariposa Atwood MD Unavailable [phone] Julian Spencer MD Unavailable Reason for Visit Reason Comments Consult tethered cord Consultation (Routine) - Closed Specialty Diagnoses / Procedures Referred By Contact Refer red To Contact Neurological Surgery Diagnoses Other secondary scoliosis, thoracolumbar region Tethered cord (H) History of fusion of spine for scoliosis Acquired von Willebrand disease Julian Spencer, Roshni Hinton MD Neurosurgery [address] [place], [place] [facility], [address] [place] [address] [place] [address] Phone: Referral ID Status Reason Start Date Expiration Date Visits Requ ested Visits Authorized [id number] Closed 05/05/2020 05/05/2021 1 1 Encounter Details Date Type Department Care Team Description 06/14/2020 Virtual Visit [facility] Eugenio Finney r secondary scoliosis, thoracolumbar region; [facility] MD David Tethered cord (H); [facility] [address] [place] [address] History of fusion of spine f or scoliosis; [address] [facility] [address] Acquired von Willebrand disease (H) Explorer [facility], [place], [place] [address], [address] [address] [place], [place] [phone] [address] (Work) [phone] Social History Tobacco Use Types Packs/Day Years [...] be resent to: Text to cell phone: [phone] Will anyone else be joining your video [...] [address] Cobos at [place]. A preoperative MRI scan revealed evidence of [...] Cobos. [facility] [...] would leave that up to Dr. Spencer. 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 History of fusion of spine for scoliosis Acquired von Willebrand disease Von Willebrand's disease documented in this encounter Care Teams Industrial Mechanic Relationship Specialty Start Date End Date [facility], [facility] PCP - General 10/15/17 08/08/[address] [address] Julian Spencer MD MD Orthopedics 03/08/20 [facility] [address] [place] [address] Mariposa Atwood, Assigned PCP 04/29/2005/[address] [place] [address] Julian Spencer MD Assigned Musculoskeletal 05/27/20 [facility] [address] [place] [address] [place] [address] documented as of this encounter
--- OUTSIDE RECORDS SUMMARY | 2022-07-02 21:51 | XMS_ITS | Encounter Summary ---
:2001 Author Organization [place] Address [address] [place] [address] Care Team Providers Name Role Phone [facility], [facility] Primary Care Provide r Julian Spencer MD Unavailable Mariposa Atwood MD Unavailable [phone] Julian Spencer MD Unavailable Eugenio Finney MD Unavailable [phone] Encounter Details Date Type Department Care Team Description 06/20/2020 Travel Social History Tobacco Use Types Packs/Day Years Used Date Smoking Tobacco: Never Smokeless Tobacco: Never Sex Assigned at Date Recorded Female 12/02/2020 1:42 PM CDT COVID-19 Exposure Response Date Recorded In the last month, have you been in contact with No / Unsure 06/20/2020 8:16 AM RESEARCH MICROBIOLOGIST someone who was confirmed or suspected to have Coronavirus / COVID-19? documented as of this encounter Plan of Treatment Not on filedocumented as of this encounter Visit Diagnoses Not on filedocumented in this encounter Care Teams Human Services Instructor Relationship Specialty Start Date End Date [facility], [facility] PCP - General 10/15/17 08/08/[address] [address] Julian Spencer MD MD Orthopedics 03/08/[address] [place] [address] Mariposa Atwood, Assigned PCP 04/29/2005/25 [address] [facility] [place] [place] [address] Julian Spencer MD Assigned Musculoskeletal 05/27/[address] Provider [place], [place] [address] Eugenio Finney, Assigned Pediatric 06/19/20 06/03/21 Specialist Provider [address] [facility] [address] [place], [place] [address] documented as of this encounter
--- OUTSIDE RECORDS SUMMARY | 2022-07-02 21:51 | XMS_ITS | Encounter Summary ---
:2001 Author Organization [place] Address [address] [place] [address] Care Team Providers Name Role Phone Clinic, [facility] Primary Care Provide r Julian Spencer MD Unavailable Mariposa Atwood MD Unavailable [phone] Julian Spencer MD Unavailable Eugenio Finney MD Unavailable [phone] Encounter Details Date Type Department Care Team Description 07/21/2020 [facility] [address] Floor [place], [place] [address] Social History Tobacco Use Types Packs/Day Years Used Date Smoking Tobacco: Never Smokeless Tobacco: Never Sex Assigned at Date Recorded Female 12/02/2020 1:42 PM CDT COVID-19 Exposure Response Date Recorded In the last month, have you been in contact with No / Unsure 07/21/2020 2:20 PM MUSCULOSKELETAL PHYSICIAN someone who was confirmed or suspected to have Coronavirus / COVID-19? documented as of this encounter Plan of Treatment Not on filedocumented as of this encounter Procedures Procedure Name Priority Date/Time Associated Diagnosis Comme nts ABO/RH TYPE AND Routine 07/21/2020 4:33 PM Transitional verteb ra Results for this SCREEN MUSCULOSKELETAL PHYSICIAN procedure are i n the results section. documented in this encounter Results ABO/Rh type and screen (07/21/2020 4:33 PM MUSCULOSKELETAL PHYSICIAN) [facility] gist Method Time Signature ABO O 07/21/2020 [facility] 8:59 PM MUSCULOSKELETAL PHYSICIAN [facility] RH(D) Pos [facility] Antibody Neg 07/21/2020 [facility] Screen 8:59 PM MUSCULOSKELETAL PHYSICIAN [facility] Test Valid [facility] 07/21/2020 [facility] 6:00 PM MUSCULOSKELETAL PHYSICIAN [facility] Specimen 2020 07/21/2020 [facility] Expires 6:00 PM MUSCULOSKELETAL PHYSICIAN [facility] Specimen Anatomical Collection Method Collection Time Receive d Time (Source) Location / / Volume Laterality Blood specimen 07/21/2020 4:33 PM 020 4:35 (specimen) MUSCULOSKELETAL PHYSICIAN PM MUSCULOSKELETAL PHYSICIAN Julian Spencer MD LAB - BLOOD BANK TEST ORDER Performing Organization Address City/State/ZIP Code Phon e Number [facility] [address] [place] [address] [facility] documented in this encounter Visit Diagnoses Diagnosis 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 documented in this encounter Care Teams Nursing Program Director Relationship Specialty Start Date End Date Clinic, [facility] PCP - General 10/15/17 08/08/[address] [address] Julian Spencer MD MD Orthopedics 03/08/20 [address] [place] [id number] Mariposa Atwood, Assigned PCP 04/29/2005/[address] [place] [address] [place], [place] [phone] Julian Spencer MD Assigned Musculoskeletal 05/27/20 [address] Provider [place], [place] [phone] Eugenio Finney, Assigned Pediatric 06/19/20 06/03/21 Specialist Provider [address] [facility] [address] [place], [place] [phone] documented as of this encounter
--- OUTSIDE RECORDS SUMMARY | 2022-07-02 21:51 | XMS_ITS | Encounter Summary ---
:2001 Author Organization [place] Address [address] [place] [address] Care Team Providers Name Role Phone Clinic, [facility] Primary Care Provide r Julian Spencer MD Unavailable Mariposa Atwood MD Unavailable [phone] Julian Spencer MD Unavailable Eugenio Finney MD Unavailable [phone] Reason for Visit Diagnostic Imaging XR (Routine) - Closed Specialty Diagnoses / Procedures Referred By Contact Refer red To Contact Diagnoses Transitional vertebra Julian Spencer MD Procedures XR Pelvis G/E 3 Views [address] [place], [place] [address] Referral ID Status Reason Start Date Expiration Date Visits Requ ested Visits Authorized [id number] Closed 07/21/2020 07/21/2021 1 1 Encounter Details Date Type Department Care Team Description 07/21/2020 Ancillary Procedure [facility] Julian Spencer Orthopedic Xray MD [place]arell [place] [address] [place], [place] 4th Floor [address] [place], [place] [phone] [address] (Work) [phone] Social History Tobacco Use Types Packs/Day Years Used Date Smoking Tobacco: Never Smokeless Tobacco: Never Sex Assigned at Date Recorded Female 12/02/2020 1:42 PM CDT COVID-19 Exposure Response Date Recorded In the last month, have you been in contact with No / Unsure 07/21/2020 2:20 PM DUMP WORKER someone who was confirmed or suspected to have Coronavirus / COVID-19? documented as of this encounter Plan of Treatment Not on filedocumented as of this encounter Procedures Procedure Name Priority Date/Time Associated Diagnosis Comme nts XR PELVIS G/E 3 Routine 07/21/2020 3:49 PM Transitional verteb ra Results for this VIEWS DUMP WORKER procedure are i n the results section. 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 WILNER HERRERA Narrative 07/21/2020 4:13 PM DUMP WORKER 1 view pelvis radiograph(s) 07/21/2020 4:10 PM [...] on filedocumented in this encounter Care Teams Nurse Aide Relationship Specialty Start Date End Date [facility] PCP - General 10/15/17 08/08/[address] [address] Julian Spencer MD MD Orthopedics 03/08/[address] [place] [phone] Mariposa Atwood, Assigned PCP 04/29/2005/25 [facility] S [place], [place] [phone] Julian Spencer MD Assigned Musculoskeletal 05/27/[address] [place], [place] [phone] Provider [place], [place] [address] Eugenio Finney, Assigned Pediatric 06/19/20 06/03/21 Specialist Provider [address] [place] [address] 96 [place], [place] [phone] documented as of this encounter
--- OUTSIDE RECORDS SUMMARY | 2022-07-02 21:51 | XMS_ITS | Encounter Summary ---
:2001 Author Organization [place] Address [address] [place] [address] Care Team Providers Name Role Phone [facility] Primary Care Provide r Julian Spencer MD Unavailable Mariposa Atwood MD Unavailable [phone] Julian Spencer MD Unavailable Eugenio Finney MD Unavailable [phone] Reason for Visit Reason Onset Date Comments Call Back 07/20/2020 more info on patient Clinic Care Coordination - Follow-up 07/20/2020 Encounter Details Date Type Department Care Team Description [facility]/20[facility]more info on [facility] MD Darell patient); Clinic Care [address] Coordination - Follow-up 9 [facility] [address] 4th [place] [phone] Social History Tobacco Use Types Packs/Day Years Used Date Smoking Tobacco: Never Smokeless Tobacco: Never Sex Assigned at Date Recorded Female 12/02/2020 1:42 PM CDT COVID-19 Exposure Response Date Recorded In the last month, have you been in contact with No / Unsure 07/05/2020 8:01 AM LINE LOCATOR someone who was confirmed or suspected to [...] & Insurance just approved surgery yesterday, so [facility] imaging administrator is working on figuring out date with 2 providers schedules & then has toget permission from hospital due to Pandemic restrictions. Call back prn. Sabina Asif RN. LOCATOR Telephone Encounter - Jaleesa Peralta - 07/20/2020 8:50 AM CST [facility] Call Center Phone Message May a detailed message be left on voicemail: no Reason for Call: Other: Gilma from [facility] would like a c/b to discuss when patient may have surgery. She is working w/patient on mental health issues and said the lack of knowing more about when the surgery could happen is causing anxeity. Action Taken: Message routed to: [facility] Travel Screening: Not Applicable LOCATOR documented in this encounter Plan of Treatment Not on filedocumented as of this encounter Visit Diagnoses Not on filedocumented in this encounter Care Teams Receiving Associate Relationship Specialty Start Date End Date Clinic, [facility] PCP - General 10/15/17 08/08/20 [facility] [address] [place] [address] Julian Spencer MD MD Orthopedics 03/08/20 [facility] [address] [place] [address] Mariposa Atwood, Assigned PCP 04/29/2005/[address] [place] [address] Julian Spencer MD Assigned Musculoskeletal 05/27/[address] Provider [place], [place] [address] Eugenio Finney, Assigned Pediatric 06/19/20 06/03/21 Specialist Provider [address] [facility] 96 [place], [place] [address] documented as of this encounter
--- OUTSIDE RECORDS SUMMARY | 2022-07-02 21:51 | XMS_ITS | Encounter Summary ---
:2001 Author Organization [place] Address [address] [place] [address] Care Team Providers Name Role Phone [facility], [facility] Primary Care Provide r Julian Spencer MD Unavailable Mariposa Atwood MD Unavailable [phone] Julian Spencer MD Unavailable Reason for Visit Reason Comments RECHECK f/u MRI got from [facility] and Hem atology and neurosugery consults. S/P Fusion for scoliosis. HX. Tethered cord . Von Willebrands Disease Encounter Details Date Type Department Care Team Description 06/15/2020 Virtual Visit [facility] Julian Spencer ondary scoliosis, thoracolumbar region (Primary Dx); Orthopedic Clinic MD Darell Tethered cord (H); [address] History of fusion of spine f or scoliosis 909 [facility] [address] 4th [place] [address] Social History Tobacco Use Types Packs/Day Years Used Date Smoking Tobacco: Never Smokeless Tobacco: Never Sex Assigned at Date Recorded Female 12/02/2020 1:42 PM CDT COVID-19 Exposure Response Date Recorded In the last month, have you been in contact with No / Unsure 06/15/2020 10:51 AM PRECISION MACHINING INSTRUCTOR someone who was confirmed or suspected to have Coronavirus / COVID-19? documented as of this encounter Progress Notes Julian Spencer MD - 06/15/2020 2:30 PM CST Reason For Visit: Chief Complaint Patient presents with ??? RECHECK f/u MRI got from [facility] and Hematology and neurosugery consults. S/P Fusion for scoliosis. HX. Tethered cord. Von Willebrands Disease Primary MD: Clinic, [facility] Ref. MD: Est Research Neuropsychologist? No Occupation Student. ?? Date of injury: [...] working, patient has smart device, please try [employer] Video with patient Dakota Casiano is a [...] be resent to: Text to cell phone: [phone] Will anyone else be joining your video visit? No Video-Visit Details Type of service: Video Visit Video Start Time: 11:32 am Video End Time: 11:48 am Originating Location (pt. Location): Home Distant Location (provider location): [facility] Platform used for Video Visit: [facility] medical history. H/O tethered cord. H/O [...] and whatever protocol Dr. Atwood indicates). Surgical [id number] minutes. Will need Peds anesthesia eval prior to coordinate blood management. Will ask for cell saver. May need PICU again depending on blood management needs. Risks benefits alternative treatments and expected outcomes have been extensively discussed previously. Will need need full spine films preferably EOS prior to surgery. 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 History of fusion of spine for scoliosis documented in this encounter Care Teams Supervisory It Specialist Relationship Specialty Start Date End Date [facility] PCP - General 10/15/17 08/08/[address] [address] Julian Spencer MD MD Orthopedics 03/08/20 [address] [facility] [address] [phone] Mariposa Atwood, Assigned PCP 04/29/2005/25 [facility]0 CENTER [place], [place] [phone] Julian Spencer MD Assigned Musculoskeletal 05/27/20 [address] [facility] [address] Provider [place], [place] [phone] documented as of this encounter
--- OUTSIDE RECORDS SUMMARY | 2022-07-02 21:51 | XMS_ITS | Encounter Summary ---
:2001 Author Organization [place] Address [address] [place] [address] Care Team Providers Name Role Phone Clinic, [facility] Primary Care Provide r Julian Spencer MD Unavailable Mariposa Atwood MD Unavailable [phone] Julian Spencer MD Unavailable Eugenio Finney MD Unavailable [phone] Reason for Visit Diagnostic Imaging XR (Routine) - Closed Specialty Diagnoses / Procedures Referred By Contact Refer red To Contact Diagnoses Other secondary scoliosis, thoracolumbar region Julian Spencer MD Procedures XR Six Foot Standing Extremities [address] [place], [place] [address] Referral ID Status Reason Start Date Expiration Date Visits Requ ested Visits Authorized [id number] Closed 07/19/2020 07/19/2021 1 1 Encounter Details Date Type Department Care Team Description 07/21/2020 Ancillary Procedure [facility] Julian Spencer [facility] MD Darell [place] [address] [place], [place] 1st Floor [address] [place], [place] [phone] [address] (Work) [phone] Social History Tobacco Use Types Packs/Day Years Used Date Smoking Tobacco: Never Smokeless Tobacco: Never Sex Assigned at Date Recorded Female 12/02/2020 1:42 PM CDT COVID-19 Exposure Response Date Recorded In the last month, have you been in contact with No / Unsure 07/21/2020 2:20 PM HOME CARE RN someone who was confirmed or suspected to have Coronavirus / COVID-19? documented as of this encounter Plan of Treatment Not on filedocumented as of this encounter Procedures Procedure Name Priority Date/Time Associated Diagnosis Comme nts XR SIX FOOT STANDING Routine 07/21/2020 2:31 PM Other secondar y Results for this [facility] RN scoliosis, procedure are i n thoracolumbar region the res ults section. 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 1. Postsurgical changes of segmental spi nal fusion instrumentation T3-L4. Hardware appears intact without e vidence of complications. 2. Moderate right convexed curvature of the thoracolumbar/lumbar spine. 3. Positive global coronal imbalance. No global sagittal imbalance. 4. Weight bearing axis as detailed above . STEFANIE ABREU, Narrative 07/21/2020 5:48 PM HOME CARE RN Exam: Full body radiographs using EOS History: [...] L1/L2. Positive global coronal imbalance. Sagittal Vertical Kevil (A vertical line drawn from the center [...] L1/L2. Positive global coronal imbalance. Sagittal Vertical Kevil (A vertical line drawn from the center [...] on filedocumented in this encounter Care Teams Bankruptcy Judge Relationship Specialty Start Date End Date [facility], [facility] PCP - General 10/15/17 08/08/[address] [address] Julian Spencer MD MD Orthopedics 03/08/20 [address] [place] [address] Mariposa Atwood, Assigned PCP 04/29/2005/[address] [place] [address] Julian Spencer MD Assigned Musculoskeletal 05/27/[address] [place], [place] [phone] [place] [address] Eugenio Finney, Assigned Pediatric 06/19/20 06/03/21 MD Specialist Provider [address] [facility] 96 [place] [address] documented as of this encounter
--- OUTSIDE RECORDS SUMMARY | 2022-07-02 21:51 | XMS_ITS | Encounter Summary ---
:2001 Author Organization [place] Address [facility] [place] [address] Care Team Providers Name Role Phone Clinic, [facility] Primary Care Provide r Julian Spencer MD Unavailable Mariposa Atwood MD Unavailable Julian Spencer MD Unavailable Eugenio Finney MD Unavailable [phone] Encounter Details Date Type Department Care Team Description 06/21/2020 Documentation Only [facility] Mariposa Atwood Pediatric MD [facility] [address] [place] [address] [facility] [phone] (Wo rk) [facility] [address] [place] [address] Social History Tobacco Use Types Packs/Day Years Used Date Smoking Tobacco: Never Smokeless Tobacco: Never Sex Assigned at Date Recorded Female 12/02/2020 1:42 PM CDT COVID-19 Exposure Response Date Recorded In the last month, have you been in contact with No / Unsure 06/20/2020 8:16 AM DRUPAL DEVELOPER someone who was confirmed or suspected to have Coronavirus / COVID-19? documented as of this encounter Progress Notes Mariposa Atwood MD - 06/21/2020 8:58 AM CST Images from the original note were not included. Email with Mrs. Vasquez: Mariposa Atwood MD [email or web address] 8:55 AM (3 minutes ago) to TIFFANY Thank you for the ping. I do see her labs partially resulted, partially pending. The von Willebrand workup that is being done both here and at [facility] usually takes 2-3 weeks, and we also have the potential for gene testing to be triggered at [facility] depending on the results profile. She does [...] 20, 2020 at 9:33 AM TIFFANY VASQUEZ <[email or web address] wrote: Good morning Just letting you know she had her labs drawn this morning. About how long does it take? With her being miserable we were hoping to get the metal out sooner than later. Is there something you want me to do as far as [facility]? It???s so frustrating to us that so much wasn???t documented yet has been told this for almost 5 years. We are extremely thankful for the precautions both hospitals have taken since she excessively bleeds but it???s still frustrating as a parent. Thank you Tiffany Vasquez AL DEVELOPER documented in this encounter Plan of Treatment Not on filedocumented as of this encounter Visit Diagnoses Not on filedocumented in this encounter Care Teams Performance Improvement Manager Relationship Specialty Start Date End Date Clinic, [facility] PCP - General 10/15/17 08/08/[address] [address] Julian Spencer MD MD Orthopedics 03/08/[address] [place] [phone] Mariposa Atwood, Assigned PCP 04/29/2005/25 [facility] [place] [address] Julian Spencer MD Assigned Musculoskeletal 05/27/[address] [place], [place] [phone] Provider [place], [place] [phone] Eugenio Finney, Assigned Pediatric 06/19/20 06/03/21 Specialist Provider [address] [facility] 96 [place], [place] [address] documented as of this encounter
--- OUTSIDE RECORDS SUMMARY | 2022-07-02 21:51 | XMS_ITS | Encounter Summary ---
:2001 Author Organization [place] Address [address] [place] [address] Care Team Providers Name Role Phone Clinic, [facility] Primary Care Provide r Julian Spencer MD Unavailable Mariposa Atwood MD Unavailable Julian Spencer MD Unavailable Eugenio Finney MD Unavailable [phone] Reason for Visit Diagnostic Imaging XR (Routine) - Closed Specialty Diagnoses / Procedures Referred By Contact Refer red To Contact Diagnoses Other secondary scoliosis, thoracolumbar region Julian Spencer MD Procedures XR Spine Complete Scoliosis 2 Views [address] [place], [place] [address] Referral ID Status Reason Start Date Expiration Date Visits Requ ested Visits Authorized [id number] Closed 07/19/2020 07/19/2021 1 1 Encounter Details Date Type Department Care Team Description 07/21/2020 Ancillary Procedure [facility] [place] [facility] MD Darell [place] [address] [place], [place] 1st Floor [address] [place], [place] [phone] (Work) [phone] Social History Tobacco Use Types Packs/Day Years Used Date Smoking Tobacco: Never Smokeless Tobacco: Never Sex Assigned at Date Recorded Female 12/02/2020 1:42 PM CDT COVID-19 Exposure Response Date Recorded In the last month, have you been in contact with No / Unsure 07/21/2020 2:20 PM SECURITY DISPATCHER someone who was confirmed or suspected to have Coronavirus / COVID-19? documented as of this encounter Plan of Treatment Not on filedocumented as of this encounter Procedures Procedure Name Priority Date/Time Associated Diagnosis Comme nts XR SPINE COMPLETE Routine 07/21/2020 2:31 PM Other secondary R esults for this SCOLIOSIS 2 VIEWS SECURITY DISPATCHER scoliosis, procedure are in thoracolumbar region the res ults section. 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 1. Postsurgical changes of segmental spi nal fusion instrumentation T3-L4. Hardware appears intact without e vidence of complications. 2. Moderate right convexed curvature of the thoracolumbar/lumbar spine. 3. Positive global coronal imbalance. No global sagittal imbalance. 4. Weight bearing axis as detailed above . STEFANIE ABREU, Narrative 07/21/2020 5:48 PM SECURITY DISPATCHER Exam: Full body radiographs using EOS History: [...] L1/L2. Positive global coronal imbalance. Sagittal Vertical [place] (A vertical line drawn from the center [...] L1/L2. Positive global coronal imbalance. Sagittal Vertical [place] (A vertical line drawn from the center [...] on filedocumented in this encounter Care Teams Lab Associate Relationship Specialty Start Date End Date [facility], [facility] PCP - General 10/15/17 08/08/[address] [address] Julian Spencer MD MD Orthopedics 03/08/[address] [place] [address] Mariposa Atwood, Assigned PCP 04/29/2005/[address] [place] [address] Julian Spencer MD Assigned Musculoskeletal 05/27/20 [address] [facility] [address] [place] [address] Eugenio Finney, Assigned Pediatric 06/19/20 06/03/21 MD Specialist Provider [address] [facility] 96 [place] [address] documented as of this encounter
--- OUTSIDE RECORDS SUMMARY | 2022-07-02 21:51 | XMS_ITS | Encounter Summary ---
:2001 Author Organization [place] Address [address] [place] [address] Care Team Providers Name Role Phone [facility], [facility] Primary Care Provide r Julian Spencer MD Unavailable Mariposa Atwood MD Unavailable Julian Spencer MD Unavailable Eugenio Finney MD Unavailable [phone] Encounter Details Date Type Department Care Team Description 07/21/2020 Prep for Procedure [facility] Julian Spencer iosis (Primary Dx); Orthopedic Clinic MD Darell Painful orthopaedic hardware (H) [address] 4[address] [place] [phone] Social History Tobacco Use Types Packs/Day Years Used Date Smoking Tobacco: Never Smokeless Tobacco: Never Sex Assigned at Date Recorded Female 12/02/2020 1:42 PM CDT COVID-19 Exposure Response Date Recorded In the last month, have you been in contact with No / Unsure 07/21/2020 2:20 PM BUILDING CUSTODIAN someone who was confirmed or suspected to have Coronavirus / COVID-19? documented as of this encounter Plan of Treatment Not on filedocumented as of this encounter Visit Diagnoses Diagnosis Scoliosis - Primary Scoliosis (and kyphoscoliosis), idiopath ic Painful orthopaedic hardware (H) documented in this encounter Care Teams Aesthetics Instructor Relationship Specialty Start Date End Date Clinic, [facility] PCP - General 10/15/17 08/08/[address] [address] Julian Spencer MD MD Orthopedics 03/08/[address] [place] [address] Mariposa Atwood, Assigned PCP 04/29/2005/25 [facility] [address] Julian Spencer MD Assigned Musculoskeletal 05/27/[address] Provider [place], [place] [phone] Eugenio Finney, Assigned Pediatric 06/19/20 06/03/21 Specialist Provider [address] [facility] 96 [place] [address] documented as of this encounter
--- OUTSIDE RECORDS SUMMARY | 2022-07-02 21:51 | XMS_ITS | Encounter Summary ---
:2001 Author Organization [place] Address [address] [place] [address] Care Team Providers Name Role Phone [facility] Primary Care Provide r Julian Spencer MD Unavailable Mariposa Atwood MD Unavailable [phone] Julian Spencer MD Unavailable Encounter Details Date Type Department Care Team Description 06/15/2020 Travel Social History Tobacco Use Types Packs/Day Years Used Date Smoking Tobacco: Never Smokeless Tobacco: Never Sex Assigned at Date Recorded Female 12/02/2020 1:42 PM CDT COVID-19 Exposure Response Date Recorded In the last month, have you been in contact with No / Unsure 06/15/2020 10:51 AM SOCIAL MEDIA SENIOR ASSOCIATE someone who was confirmed or suspected to have Coronavirus / COVID-19? documented as of this encounter Plan of Treatment Not on filedocumented as of this encounter Visit Diagnoses Not on filedocumented in this encounter Care Teams Wine Sales Representative Relationship Specialty Start Date End Date [facility], [facility] PCP - General 10/15/17 08/08/20 [facility] [address] [place] [address] Julian Spencer MD MD Orthopedics 03/08/[address] [place] [address] Mariposa Atwood, Assigned PCP 04/29/2005/25 [address] [facility] [place] [address] Julian Spencer MD Assigned Musculoskeletal 05/27/[address] Provider [place], [place] [phone] documented as of this encounter
--- OUTSIDE RECORDS SUMMARY | 2022-07-02 21:51 | XMS_ITS | Encounter Summary ---
:2001 Author Organization [place] Address [facility] [place] [address] Care Team Providers Name Role Phone Clinic, [facility] Primary Care Provide r Julian Spencer MD Unavailable Mariposa Atwood MD Unavailable [phone] Julian Spencer MD Unavailable Eugenio Finney MD Unavailable [phone] Encounter Details Date Type Department Care Team Description 06/21/2020 Orders Only [facility] Mariposa Atwood At risk fo r Services - Christian Sheffield MD hemorrhage associated Specialties Service [address] [place] [address] surgery (Primary Line S Dx) [address] [place] [address] [phone] Social History Tobacco Use Types Packs/Day Years Used Date Smoking Tobacco: Never Smokeless Tobacco: Never Sex Assigned at Date Recorded Female 12/02/2020 1:42 PM CDT COVID-19 Exposure Response Date Recorded In the last month, have you been in contact with No / Unsure 07/05/2020 8:01 AM CAR CHANGER someone who was confirmed or suspected to have Coronavirus / COVID-19? documented as of this encounter Plan of Treatment Not on filedocumented as of this encounter Results Platelet Aggregation w/ ADP, TBN, COL, ARACH A, RIST(3conc) (07/05/2020 8:30 AM CAR CHANGER) [facility] Method Time Signature ADP See table 07/07/2020 [facility] below 7:12 AM [facility] Thrombin See table 07/07/2020 [facility] below 7:12 AM [facility] Epinephrine See table 07/07/2020 [facility] below 7:12 AM [facility] Collagen See table 07/07/2020 [facility] below 7:12 AM [facility] Arachadonic Acid See table 07/07/2020 [facility] below 7:12 AM [facility] Comment: (Note) Abnormal platelet aggregation study. Max [...] and electron microscopy. ? Sunni Whitley M.D. [phone] ? 07/05/2020 ? ATP RELEASE: ? ATP [...] 63% Ristocetin-4 Conc (Note) 07/07/2020 7:[address] [facility] Comment: See full platelet aggregation comments. ? Sunni Whitley M.D. [phone] ? 07/05/2020 ? RISTOCETIN: Concentration ?Primary Agg [...] specimen 07/05/2020 8:30 AM 020 8:52 (specimen) CAR CHANGER AM CAR CHANGER Mariposa Atwood MD LAB - BLOOD ORDERABLES Performing Organization Address City/State/ZIP Code Phon e Number [facility] [address] [place], [place] [phone] [place] [address] Versiti Fibrinolytic Disorder Panel (lab order 7400): Laboratory Miscellaneous Order (06/20/2020 8:40 AM CAR CHANGER) Component Value Ref Test Analysis Performed At [facility] gist Range Method Time Signature Miscellaneous Specimen Received, Reordered and sent to Performing laboratory - Report to follow upon 07/05/2020 [facility] Test completion. 11:25 AM [facility] Specimen Anatomical Collection Method Collection Time Receive d Time (Source) Location / / Volume Laterality Blood specimen VENOUS BLOOD / 06/20/2020 8:40 AM 07/05 8:52 (specimen) Unknown CAR CHANGER AM CAR CHANGER Mariposa Atwood MD LAB - BLOOD ORDERABLES Performing Organization Address City/State/ZIP Code Phon e Number [address] [address] [facility] documented in this encounter Visit Diagnoses Diagnosis At risk for hemorrhage associated with s urgery - Primary documented in this encounter Care Teams Medical Staffing Coordinator Relationship Specialty Start Date End Date Clinic, [facility] PCP - General 10/15/17 08/08/[address] [address] Julian Spencer MD MD Orthopedics 03/08/20 [address] [facility] [address] [place], [place] [address] Mariposa Atwood, Assigned PCP 04/29/2005/[address] [place] [address] [place], [place] [address] Julian Spencer MD Assigned Musculoskeletal 05/27/[address] [place] [address] Eugenio Finney, Assigned Pediatric 06/19/20 06/03/21 Specialist Provider [address] [facility] 96 [place], [place] [address] documented as of this encounter
--- OUTSIDE RECORDS SUMMARY | 2022-07-02 21:51 | XMS_ITS | Encounter Summary ---
:2001 Author Organization [place] Address [address] [facility] [place] [address] Care Team Providers Name Role Phone Clinic, [facility] Primary Care Provide r Julian Spencer MD Unavailable Mariposa Atwood MD Unavailable [phone] Julian Spencer MD Unavailable Eugenio Finney MD Unavailable [phone] Encounter Details Date Type Department Care Team Description 07/21/2020 Orders Only UR RE OR Juilan Spencer Encounter for screening [address] [place] [address] diseases (Primary Dx) [phone] [address] [place] [address] Social History Tobacco Use Types Packs/Day Years Used Date Smoking Tobacco: Never Smokeless Tobacco: Never Sex Assigned at Date Recorded Female 12/02/2020 1:42 PM CDT COVID-19 Exposure Response Date Recorded In the last month, have you been in contact with No / Unsure 07/21/2020 2:20 PM ELECTRICAL PANEL BUILDER someone who was confirmed or suspected to have Coronavirus / COVID-19? documented as of this encounter Plan of Treatment Not on filedocumented as of this encounter Results Asymptomatic COVID-19 Virus (Coronavirus) by PCR (08/07/2020 3:30 PM ELECTRICAL PANEL BUILDER) Component Value Ref Test Analysis Performed At Patholo gist Range Method Time Signature COVID-19 Nasopharyngeal 08/07/2020 [facility] Virus PCR to 3:13 PM ELECTRICAL PANEL BUILDER [place] [facility] COVID-19 Test received-See 08/07/2020 INFECTIOUS Virus PCR to reflex to IDDL 7:27 PM ELECTRICAL PANEL BUILDER DISEASES [facility] [place] - test SARS CoV2 DIAGNOSTIC Result (COVID-19) Virus LABORATORY, RT-PCR [facility] Specimen (Source) Anatomical Collection Method Collection Time Re ceived Time Location / / Volume Laterality Specimen from 08/07/2020 3:30 08/07/2020 nasopharyngeal PM ELECTRICAL PANEL BUILDER 3:32 PM ELECTRICAL PANEL BUILDER structure (specimen) Julian Spencer MD LAB - MICRO GENERAL ORDERABL ES Performing Organization Address City/State/ZIP Code Phon e Number INFECTIOUS DISEASES DIAGNOSTIC [address] [facility] [place] [facility] [place] [address] LABORATORY, [facility] [address] [place] [address] [facility] documented in this encounter Visit Diagnoses Diagnosis Encounter for screening for other viral diseases - Primary documented in this encounter Care Teams Cover Seamer Relationship Specialty Start Date End Date Clinic, [facility] PCP - General 10/15/17 08/08/[address] [address] Julian Spencer MD MD Orthopedics 03/08/[address] [place] [address] Mariposa Atwood, Assigned PCP 04/29/2005/[address] [place] [address] S [place], [place] [address] Julian Spencer MD Assigned Musculoskeletal 05/27/[address] Provider [place], [place] [address] Eugenio Finney, Assigned Pediatric 06/19/20 06/03/21 Specialist Provider [address] [facility] 96 [place], [place] [phone] documented as of this encounter
--- OUTSIDE RECORDS SUMMARY | 2022-07-02 21:51 | XMS_ITS | Encounter Summary ---
:2001 Author Organization [place] Address [address] [place] [address] Care Team Providers Name Role Phone Clinic, [facility] Primary Care Provide r Julian Spencer MD Unavailable Mariposa Atwood MD Unavailable [phone] Julian Spencer MD Unavailable Eugenio Finney MD Unavailable [phone] Encounter Details Date Type Department Care Team Description 08/07/2020 Orders Only [facility] Julian Spencer for screening [facility] Darell for other viral [address] [place] [address] [place], [place] [address] [address] [place], [place] [phone] [address] Social History Tobacco Use Types Packs/Day Years Used Date Smoking Tobacco: Never Smokeless Tobacco: Never Alcohol Use Standard Drinks/Week Comments Not Currently 0 (1 standard drink = 0.6 oz pure alcoho l) Sex Assigned at Date Recorded Female 12/02/2020 1:42 PM CDT COVID-19 Exposure Response Date Recorded In the last month, have you been in contact with No / Unsure 08/09/2020 6:36 AM EAR MOLD LABORATORY TECHNICIAN someone who was confirmed or suspected to have Coronavirus / COVID-19? documented as of this encounter Plan of Treatment Not on filedocumented as of this encounter Procedures Procedure Name Priority Date/Time Associated Diagnosis Comme nts SARS-COV-2 Routine 08/07/2020 3:30 PM Encounter for Results for this (COVID-19) VIRUS EAR MOLD LABORATORY TECHNICIAN screening for other proc edure are in RT-PCR viral diseases the results section. COVID-19 VIRUS Routine 08/07/2020 3:30 PM Encounter for Result s for this (CORONAVIRUS) BY EAR MOLD LABORATORY TECHNICIAN screening for other proc edure are in PCR viral diseases the results section. documented in this encounter Results SARS-CoV-2 COVID-19 Virus (Coronavirus) by PCR (08/07/2020 3:30 PM EAR MOLD LABORATORY TECHNICIAN) [facility] Method Time Signature SARS-CoV-2 Nasopharyngeal 08/08/2020 INFECTIOUS Virus 12:52 PM DISEASES Specimen EAR MOLD LABORATORY TECHNICIAN DIAGNOSTIC Source LABORATORY, [facility] SARS-CoV-2 NEGATIVE 08/08/2020 INFECTIOUS PCR Result 12:52 PM DISEASES EAR MOLD LABORATORY TECHNICIAN DIAGNOSTIC LABORATORY, [facility] Comment: SARS-CoV2 (COVID-19) RNA not de tected, presumed negative. SARS-CoV-2 PCR Testing was performed using the Aptima SARS-CoV-2 Assay on the [employer] Instrument System. 08/08/2020 12:52 PM INFECTI OUS DISEASES Comment Additional information about this Emergency Use Authorization (EUA) assay can be found via EAR MOLD LABORATORY TECHNICIAN DIAGNOSTIC the Lab Guide. LABORATORY, [facility] Comment: This test should be ordered for [...] COVID-19. This test was validated by the [facility] Infectious Diseases Diagnostic Laboratory. This laboratory i s certified under the Clinical Laboratory Improvement Amendments of 198 8 (CLIA-88) as qualified to perform high complexity laboratory testing. Specimen (Source) Anatomical Collection Method Collection Time Re ceived Time Location / / Volume Laterality Specimen from 08/07/2020 3:30 08/07/2020 nasopharyngeal PM EAR MOLD LABORATORY TECHNICIAN 3:32 PM EAR MOLD LABORATORY TECHNICIAN structure (specimen) Julian Spencer MD LAB - MICRO GENERAL ORDERABL ES Performing Organization Address City/[facility]/ZIP Code Phon e Number INFECTIOUS DISEASES DIAGNOSTIC 420 [facility] [place], [place] [address] LABORATORY, [facility] Asymptomatic COVID-19 Virus (Coronavirus) by PCR (08/07/2020 3:30 PM EAR MOLD LABORATORY TECHNICIAN) Component Value Ref Test Analysis Performed At [facility] Range Method Time Signature COVID-19 Nasopharyngeal 08/07/2020 [facility] Virus PCR to 3:13 PM EAR MOLD LABORATORY TECHNICIAN [place] [facility]ICAL [facility] COVID-19 Test received-See 08/07/2020 INFECTIOUS Virus PCR to reflex to IDDL 7:27 PM EAR MOLD LABORATORY TECHNICIAN DISEASES U [facility] - test SARS CoV2 DIAGNOSTIC Result (COVID-19) Virus LABORATORY, RT-PCR [facility] Specimen (Source) Anatomical Collection Method Collection Time Re ceived Time Location / / Volume Laterality Specimen from 08/07/2020 3:30 08/07/2020 nasopharyngeal PM EAR MOLD LABORATORY TECHNICIAN 3:32 PM EAR MOLD LABORATORY TECHNICIAN structure (specimen) Julian Spencer MD LAB - MICRO GENERAL ORDERABL ES Performing Organization Address City/State/ZIP Code Phon e Number INFECTIOUS DISEASES DIAGNOSTIC 420 [facility] [place], [place] [address] LABORATORY, [address] [address] [facility] documented in this encounter Visit Diagnoses Diagnosis Encounter for screening for other viral diseases documented in this encounter Care Teams Hospice Nurse Relationship Specialty Start Date End Date Clinic, [facility] PCP - General 10/15/17 08/08/20 [facility] [address] [place] [address] Julian Spencer MD MD Orthopedics 03/08/20 [facility] [address] [place], [place] [address] Mariposa Atwood, Assigned PCP 04/29/2005/[address] [place] [id number] Julian Spencer MD Assigned Musculoskeletal 05/27/[address] [place] [address] Eugenio Finney, Assigned Pediatric 06/19/20 06/03/21 Specialist Provider [address] [place] [address] 96 [place], [place] [phone] documented as of this encounter
--- OUTSIDE RECORDS SUMMARY | 2022-07-02 21:51 | XMS_ITS | Encounter Summary ---
:2001 Author Organization [place] Address [address] [place] [address] Care Team Providers Name Role Phone Clinic, [facility] Primary Care Provide r Julian Spencer MD Unavailable Mariposa Atwood MD Unavailable [phone] Julian Spencer MD Unavailable Eugenio Finney MD Unavailable [phone] Encounter Details Date Type Department Care Team Description 07/05/2020 Orders Only [facility] Lab At ris k for hemorrhage [place] associated with surgery [address] Floor [place], [place] [phone] Social History Tobacco Use Types Packs/Day Years Used Date Smoking Tobacco: Never Smokeless Tobacco: Never Sex Assigned at Date Recorded Female 12/02/2020 1:42 PM CDT COVID-19 Exposure Response Date Recorded In the last month, have you been in contact with No / Unsure 07/05/2020 8:01 AM SODA TESTER someone who was confirmed or suspected to have Coronavirus / COVID-19? documented as of this encounter Plan of Treatment Not on filedocumented as of this encounter Procedures Procedure Name Priority Date/Time Associated Comments Diagnosis PLATELET AGGREGATION Routine 07/05/2020 8:30 AM At risk for R esults for this W/ ADP, TBN, COL, SODA TESTER hemorrhage procedure are in ARACH A, RIST(3CONC) associated with the results surgery section. SEND OUTS MISC TEST Routine 06/20/2020 8:40 AM At risk for Re sults for this SODA TESTER hemorrhage procedure are i n associated with the results surgery section. LABORATORY Routine 06/20/2020 8:40 AM At risk for Results f or this MISCELLANEOUS ORDER SODA TESTER hemorrhage procedur e are in associated with the results surgery section. documented in this encounter Results Platelet Aggregation w/ ADP, TBN, COL, ARACH A, RIST(3conc) (07/05/2020 8:30 AM SODA TESTER) [facility] Method Time Signature ADP See table 07/07/2020 [facility] 7:12 AM [facility] Thrombin See table 07/07/2020 [facility] 7:12 AM [facility] Epinephrine See table 07/07/2020 [facility] 7:12 AM [facility] Collagen See table 07/07/2020 [facility] 7:12 AM [facility] Arachadonic Acid See table 07/07/2020 [facility] 7:12 AM [facility] Comment: (Note) Abnormal platelet aggregation study. [...] and electron microscopy. ? Sunni Whitley M.D. [phone] ? 07/05/2020 ? ATP RELEASE: ? ATP [...] 63% Ristocetin-4 Conc (Note) 07/07/2020 7:12 AM SODA TESTER [facility] Comment: See full platelet aggregation comments. ? Sunni Whitley M.D. [phone] ? 07/05/2020 ? RISTOCETIN: Concentration ?Primary Agg [...] specimen 07/05/2020 8:30 AM 020 8:52 (specimen) SODA TESTER AM SODA TESTER Mariposa Atwood MD LAB - BLOOD ORDERABLES Performing Organization Address City/State/ZIP Code Phon e Number [facility] [address] [place] [address] [facility] Send outs misc test (06/20/2020 8:40 AM SODA TESTER) Analysis Performed At Patho logist Time Signature Lab Scanned SEND OUTS [facility] Result MISC TEST-Scann ed Specimen Anatomical Collection Method Collection Time Receive d Time (Source) Location / / Volume Laterality 06/20/2020 8:40 AM 0 8:52 SODA TESTER AM SODA TESTER Mariposa Atwood MD LAB - BLOOD ORDERABLES Performing Organization Address City/State/ZIP Code Phon e Number [facility] Fibrinolytic Disorder Panel (lab order 4860): Laboratory Miscellaneous Order (06/20/2020 8:40 AM SODA TESTER) Component Value Ref Test Analysis Performed At [facility] gist Range Method Time Signature Miscellaneous Specimen Received, Reordered and sent to Performing laboratory - Report to follow upon 07/05/2020 [facility] Test completion. 11:25 AM [facility] [place] Specimen Anatomical Collection Method Collection Time Receive d Time (Source) Location / / Volume Laterality Blood specimen VENOUS BLOOD / 06/20/2020 8:40 AM 07/05 8:52 (specimen) Unknown SODA TESTER AM SODA TESTER Mariposa Atwood MD LAB - BLOOD ORDERABLES Performing Organization Address City/State/ZIP Code Phon e Number [facility] [address] [place] [address] [facility] documented in this encounter Visit Diagnoses Diagnosis At risk for hemorrhage associated with s urgery documented in this encounter Care Teams Jazz Musician Relationship Specialty Start Date End Date Clinic, [facility] PCP - General 10/15/17 08/08/20 [facility] [address] [place] [address] Julian Spencer MD MD Orthopedics 03/08/[address] [place], [place] [address] Mariposa Atwood, Ade PCP 04/29/2005/[address] [place] [id number] Julian Spencer MD Assigned Musculoskeletal 05/27/[address] [place] [address] Eugenio Finney, Assigned Pediatric 06/19/20 06/03/21 Specialist Provider [address] [facility] [address] [place], [place] [phone] documented as of this encounter
--- OUTSIDE RECORDS SUMMARY | 2022-07-02 21:51 | XMS_ITS | Encounter Summary ---
:2001 Author Organization [place] Address [address] [place] [address] Care Team Providers Name Role Phone [facility], [facility] Primary Care Provide r Julian Spencer MD Unavailable Mariposa Atwood MD Unavailable [phone] Julian Spencer MD Unavailable Eugenio Finney MD Unavailable [phone] Encounter Details Date Type Department Care Team Description 07/21/2020 Travel Social History Tobacco Use Types Packs/Day Years Used Date Smoking Tobacco: Never Smokeless Tobacco: Never Sex Assigned at Date Recorded Female 12/02/2020 1:42 PM CDT COVID-19 Exposure Response Date Recorded In the last month, have you been in contact with No / Unsure 07/21/2020 2:20 PM CLAIMS TECHNICIAN someone who was confirmed or suspected to have Coronavirus / COVID-19? documented as of this encounter Plan of Treatment Not on filedocumented as of this encounter Visit Diagnoses Not on filedocumented in this encounter Care Teams Transportation Officer Relationship Specialty Start Date End Date [facility], [facility] PCP - General 10/15/17 08/08/[address] [address] Julian Spencer MD MD Orthopedics 03/08/[address] [place] [address] Mariposa Atwood, Assigned PCP 04/29/2005/25 [address] [facility] [place] [place] [address] Julian Spencer MD Assigned Musculoskeletal 05/27/[address] Provider [place], [place] [address] Eugenio Finney, Assigned Pediatric 06/19/20 06/03/21 Specialist Provider [address] [facility] [address] [place], [place] [address] documented as of this encounter
--- OUTSIDE RECORDS SUMMARY | 2022-07-02 21:51 | XMS_ITS | Encounter Summary ---
:2001 Author Organization [place] Address [address] [place] [address] Care Team Providers Name Role Phone [facility], [facility] Primary Care Provide r Julian Spencer MD Unavailable Mariposa Atwood MD Unavailable [phone] Julian Spencer MD Unavailable Eugenio Finney MD Unavailable [phone] Encounter Details Date Type Department Care Team Description 07/05/2020 Travel Social History Tobacco Use Types Packs/Day Years Used Date Smoking Tobacco: Never Smokeless Tobacco: Never Sex Assigned at Date Recorded Female 12/02/2020 1:42 PM CDT COVID-19 Exposure Response Date Recorded In the last month, have you been in contact with No / Unsure 07/05/2020 8:01 AM GLOBAL [employer] someone who was confirmed or suspected to have Coronavirus / COVID-19? documented as of this encounter Plan of Treatment Not on filedocumented as of this encounter Visit Diagnoses Not on filedocumented in this encounter Care Teams Leguillon Debeader Relationship Specialty Start Date End Date [facility], [facility] PCP - General 10/15/17 08/08/[address] [address] Julian Spencer MD MD Orthopedics 03/08/[address] [place] [address] Mariposa Atwood, Assigned PCP 04/29/2005/25 [address] [facility] [place] [place] [address] Julian Spencer MD Assigned Musculoskeletal 05/27/[address] Provider [place], [place] [address] Eugenio Finney, Assigned Pediatric 06/19/20 06/03/21 Specialist Provider [address] [facility] [address] [place], [place] [address] documented as of this encounter
--- OUTSIDE RECORDS SUMMARY | 2022-07-02 21:51 | XMS_ITS | Encounter Summary ---
:2001 Author Organization [place] Address [address] [place] [address] Care Team Providers Name Role Phone [facility], [facility] Primary Care Provide r Julian Spencer MD Unavailable Mariposa Atwood MD Unavailable Julian Spencer MD Unavailable Eugenio Finney MD Unavailable [phone] Reason for Referral Diagnostic Imaging XR (Routine) - Closed Specialty Diagnoses / Procedures Referred By Contact Refer red To Contact Diagnoses Transitional vertebra Julian Spencer MD Procedures XR Pelvis G/E 3 Views [address] [place], [place] [address] Referral ID Status Reason Start Date Expiration Date Visits Requ ested Visits Authorized [id number] Closed 07/21/2020 07/21/2021 1 1 MS ADJUSTOR Reason for Visit Reason Comments RECHECK re-discuss hematology consu lt and surgery for scoli Encounter Details Date Type Department Care Team Description [facility]/21[facility] MD Dare[place] (Primary Dx) [place] [address] [facility] [address] [place] [phone] Social History Tobacco Use Types Packs/Day Years Used Date Smoking Tobacco: Never Smokeless Tobacco: Never Sex Assigned at Date Recorded Female 12/02/2020 1:42 PM CDT COVID-19 Exposure Response Date Recorded In the last month, have you been in contact with No / Unsure 07/21/2020 2:20 PM CLAIMS ADJUSTOR someone who was confirmed or suspected to have Coronavirus / COVID-19? documented as of this encounter Last Filed Vital Signs Vital Sign Reading Time Taken Comments Blood Pressure - - Pulse - - Temperature - - Respiratory Rate - - Oxygen Saturation - - Inhaled Oxygen Concentration - - Weight 54.3 kg (119 lb 9.6 oz) 07/21/2020 3:00 PM CLAIMS ADJUSTOR Height 161 cm (5' 3.39) 07/21/2020 3:00 PM CLAIMS ADJUSTOR Body Mass Index 20.93 07/21/2020 3:00 PM CLAIMS ADJUSTOR Body Mass Index Percentile 42.08 % 07/21/2020 3:00 PM CS T Growth Chart: [facility] (Girls, 2-20 Years) documented in this encounter [...] Willebrand's. 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 She has the genetic test pending for that which should be back on . The treatment for this is tranexamic acid. Dr. Atwood has outlined the plan. Dr. Cruz will be the excel vba developer on service when she has her surgery. [...] is that her underlying bleeding disorder is [place] platelet disorder. I reviewed this with Dakota and her mom. I looked at her incision. She has a well-healed midline incision, and we will plan to do this in our usual fashion. Julian Spencer MD MS ADJUSTOR documented in this encounter Nursing Notes Reyna Chávez LPN - 07/21/2020 3:00 PM CST Reason For Visit: Chief Complaint Patient presents with ??? RECHECK re-discuss hematology consult and surgery for scoli Primary MD: Gerardo, [facility] Ref. MD: lucien Economic Consultant?No Occupation??Student. ?? Date of injury:??No Type [...] data might be hidden Reyna Chávez LPN MS ADJUSTOR documented in this encounter Plan of Treatment Not on filedocumented as of this encounter Procedures Procedure Name Priority Date/Time Associated Diagnosis Comme nts XR PELVIS G/E 3 Routine 07/21/2020 3:49 PM Transitional verteb ra Results for this VIEWS CLAIMS ADJUSTOR procedure are i n the results section. documented in this encounter Results ABO/Rh type and screen (07/21/2020 4:33 PM CLAIMS ADJUSTOR) [facility] gist Method Time Signature ABO O 07/21/2020 [facility] 8:59 PM CLAIMS ADJUSTOR [facility] RH(D) Pos [facility] Antibody Neg 07/21/2020 [facility] Screen 8:59 PM CLAIMS ADJUSTOR [facility] Test Valid [facility] 07/21/2020 [facility] 6:00 PM CLAIMS ADJUSTOR [facility] w Hospital Specimen 2020 07/21/2020 [facility] Expires 6:00 PM CLAIMS ADJUSTOR [facility] Specimen Anatomical Collection Method Collection Time Receive d Time (Source) Location / / Volume Laterality Blood specimen 07/21/2020 4:33 PM 020 4:35 (specimen) CLAIMS ADJUSTOR PM CLAIMS ADJUSTOR Julian Spencer MD LAB - BLOOD BANK TEST ORDER Performing Organization Address City/State/ZIP Code Phon e Number 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 WILNER HERRERA Narrative 07/21/2020 4:13 PM CLAIMS ADJUSTOR 1 view pelvis radiograph(s) 07/21/2020 4:10 PM [...] spine documented in this encounter Care Teams Welder Fitter Helper Relationship Specialty Start Date End Date [facility], [facility] PCP - General 10/15/17 08/08/[address] [address] Julian Spencer MD MD Orthopedics 03/08/[address] [place], [place] [address] [place], [place] [address] Mariposa Atwood, Assigned PCP 04/29/2005/25 [facility] [place], [place] [address] Julian Spencer MD Assigned Musculoskeletal 05/27/[address] [place] [address] Eugenio Finney, Assigned Pediatric 06/19/20 06/03/21 Specialist Provider [address] [place] [address] 96 [place] [address] documented as of this encounter
--- OUTSIDE RECORDS SUMMARY | 2022-07-02 21:51 | XMS_ITS | Encounter Summary ---
:2001 Author Organization [place] Address [address] [place] [address]. [place] [address] Care Team Providers Name Role Phone Clinic, [facility] Primary Care Provide r Julian Spencer MD Unavailable Mariposa Atwood MD Unavailable [phone] Julian Spencer MD Unavailable Encounter Details Date Type Department Care Team Description 06/13/2020 Orders Only [facility] Mariposa Atwood's [facility] Pediatric MD Nettie disease (H) (Primary Specialty Clinic [address] [place] [address] Dx) [address] [place] [id number] [place] [address] 9 [place] [address] Social History Tobacco Use Types [...] encounter Results CRP, inflammation (06/20/2020 8:40 AM [facility]) Analysis Performed At Patho logist Time Signature CRP Inflammation <2.9 0.0 - 8.0 06/20/2020 UN[facility]ERSITY O F mg/L 9:35 AM [facility] Specimen Anatomical Collection Method Collection Time Receive d Time (Source) Location / / Volume Laterality Blood specimen 06/20/2020 8:40 AM 020 8:44 (specimen) [facility] AM [facility] Mariposa Atwood MD LAB - BLOOD ORDERABLES Performing Organization Address City/[facility]/ZIP Code Phon e Number [address] [address] [phone] [facility] TSH with free T4 reflex (06/20/2020 8:40 AM [facility]) P athologist Signature TSH 3.01 0.40 - 4.00 06/20/2020 [facility]ITY OF mU/L 9:35 AM [facility] Specimen Anatomical Collection Method Collection Time Receive d Time (Source) Location / / Volume Laterality Blood specimen 06/20/2020 8:40 AM 8:44 (specimen) [facility] AM [facility] Mariposa Atwood MD LAB - BLOOD ORDERABLES Performing Organization Address City/[facility]/ZIP Code Phon e Number [phone] [place] [address] [facility] VWD Diagnostic evaluation to Versiti (order code 1800): Laboratory Miscellaneous Order (06/20/2020 8:40 AM [facility]) Component Value Ref Test Analysis Performed At Patholo gist Range Method Time Signature Miscellaneous Specimen Received, Reordered and sent to Performing laboratory - Report to follow upon 06/21/2020 [facility]ITY OF Test completion. 8:40 AM [facility] Specimen Anatomical Collection Method Collection Time Receive d Time (Source) Location / / Volume Laterality Blood specimen VENOUS BLOOD / 06/20/2020 8:40 AM 06/20 (specimen) Unknown [facility] 12:17 PM [facility] Mariposa Atwood MD LAB - BLOOD ORDERABLES Performing Organization Address City/State/ZIP Code Phon e Number [address] [address] [phone] [facility] VWF Sequence analysis to Verskimi (order code 1395): Laboratory Miscellaneous Order (06/20/2020 8:40 AM [facility]) Component Value Ref Test Analysis Performed At [facility] Range Method Time Signature Miscellaneous Specimen Received, Reordered and sent to Performing laboratory - Report to follow upon 06/21/2020 [facility]ITY OF Test completion. 8:40 AM [facility] Specimen Anatomical Collection Method Collection Time Receive d Time (Source) Location / / Volume Laterality Blood specimen VENOUS BLOOD / 06/20/2020 8:40 AM 06/20 9:10 (specimen) Unknown [facility] AM [facility] Mariposa Atwood MD LAB - BLOOD ORDERABLES Performing Organization Address City/State/ZIP Code Phon e Number [address] [address] [facility] ABO and Rh (06/20/2020 8:40 AM [facility]) [facility] Method Time Signature ABO O 06/20/2020 [facility]ITY 10:52 AM [facility] RH(D) Pos [facility] Specimen 06/23/2020 06/20/2020 [facility] OF Expires 10:18 AM [facility] Specimen Anatomical Collection Method Collection Time Receive d Time (Source) Location / / Volume Laterality Blood specimen 06/20/2020 8:40 AM 020 8:44 (specimen) [facility] AM [facility] Mariposa Atwood MD LAB - BLOOD BANK TEST ORDER Performing Organization Address City/[facility]/ZIP Code Phon e Number [phone] [place] [phone] [place] [address] Beta 2 Glycoprotein Antibodies IGG IGM (06/20/2020 8:40 AM [facility]) Analysis Performed At Path logist Time Signature Beta 2 1.0 <7 U/mL 06/21/2020 [facility] OF Glycoprotein 1 11:56 AM [facility] Antibody IgG [facility] Comment: Negative Beta 2 Glycoprotein 1 <2.9 <7 U/mL 06/21/2020 11:56 A M [facility] Antibody IgM [facility] Comment: Negative Specimen Anatomical Collection Method Collection Time Receive d Time (Source) Location / / Volume Laterality Blood specimen 06/20/2020 8:40 AM 8:44 (specimen) [facility] AM [facility] Mariposa Atwood MD LAB - BLOOD ORDERABLES Performing Organization Address City/[facility]/ZIP Code Phon e Number [facility] [address] Cardiolipin Jacqui IgG and IgM (06/20/2020 8:40 AM [facility]) athologist Signature Cardiolipin <1.6 0.0 - 19.9 06/22/2020 UN[facility]ITY [facility] IgG GPL-U/mL 9:49 AM [facility] Comment: Negative Cardiolipin Antibody <0.2 0.0 - 19.9 06/22/2020 9:49 AM [facility] IgM MPL-U/mL [facility] Comment: Negative Specimen Anatomical Collection Method Collection Time Receive d Time (Source) Location / / Volume Laterality Blood specimen 06/20/2020 8:40 AM 8:44 (specimen) [facility] AM [facility] Mariposa Atwood MD LAB - BLOOD ORDERABLES Performing Organization Address City/[facility]/ZIP Code Phon e Number [facility] [address] Lupus Anticoagulant Panel (06/20/2020 8:40 AM [facility]) athologist Signature Lupus Result Negative NEG^Negati 06/21/2020 [facility]ITY OF 2:20 PM [facility] Comment: (Note) COMMENTS: The INR is normal. APTT ratio is normal. ?? DRVVT Screen ratio is normal. Thrombin time is normal. NEGATIVE TEST; A LUPUS ANTICOAGULANT WAS NOT DETECTED IN THIS SPECIMEN WITHIN THE LIMITS OF THE TESTIN G REPERTOIRE. If the clinical picture is strongly sugg estive of an antiphospholipid syndrome, recommend anticardiolipin and [id number] (IgG and IgM) antibody tests. Sunni Whitley M.D. ??[phone] 06/21/2020 ? APTT TEST: ? APTT Ratio = ? 1.06 ? Normal is less than 1.21 ? DILUTE JANEE VIPER VENOM TEST: ? Screen Ratio = ? 0.87 ? Barb l is less than 1.21 ? Specimen Anatomical Collection Method Collection Time Receive d Time (Source) Location / / Volume Laterality Blood specimen 06/20/2020 8:40 AM 020 8:44 (specimen) [facility] AM [facility] Mariposa Atwood MD LAB - BLOOD ORDERABLES Performing Organization Address City/State/ZIP Code Phon e Number [facility] [address] [place], [place] [phone] [place] [address] TEG without Heparinase (06/20/2020 8:40 AM [facility]) [facility] gist Method Time Signature R time until clot 6.2 5 - 10 06/20/2020 [facility]ITY OF forms Minute 11:09 AM [facility] K time to spec clot 1.4 1 - 3 06/20/2020 UNIVERSIT Y OF strength Minute 11:09 AM [facility] Angle rate of clot 68.2 53 - 72 06/20/2020 UN[facility]ITY OF strength Degrees 11:09 AM [facility] MA maximum clot 66.4 50 - 70 mm 06/20/2020 UN[facility]ITY O F strength 11:09 AM [facility] CI hypercoagulation 0.9 0.0 - 3.0 06/20/2020 UNIVERSIT Y OF index Ratio 11:09 AM [facility] G actual clot 9.9 4.5 - 11.0 06/20/2020 UNIVERSITY [facility] Kd/sc 11:09 AM [facility] LY30 lysis at 30 1.6 0 - 8 % 06/20/2020 UNIVERSITY O F minutes 11:09 AM [facility] LY60 lysis at 60 5.3 0 - 15 % 06/20/2020 UN[facility]ITY O F minutes 11:09 AM [facility] Specimen Anatomical Collection Method Collection Time Receive d Time (Source) Location / / Volume Laterality Blood specimen 06/20/2020 8:40 AM 020 8:44 (specimen) [facility] AM [facility] Mariposa Atwood MD LAB - BLOOD ORDERABLES Performing Organization Address City/[facility]/ZIP Code Phon e Number [facility] [address] [place] [address] [facility] Plasminogen activity (06/20/2020 8:40 AM [facility]) athologist Signature Plasminogen 124 80 - 133 % 06/22/2020 [facility] OF Chromogenic 8:55 AM [facility] Specimen Anatomical Collection Method Collection Time Receive d Time (Source) Location / / Volume Laterality Blood specimen 06/20/2020 8:40 AM 020 8:44 (specimen) [facility] AM [facility] Mariposa Atwood MD LAB - BLOOD ORDERABLES Performing Organization Address City/[facility] Code Phon e Number [facility] [address] [place] [address] [facility] Plasminogen Activator Inhibitor 1 (06/20/2020 8:40 AM [facility]) athologist Signature Plasminogen 7 3 - 72 06/29/2020 [facility]ITY OF Activator ng/mL 2:14 PM [facility] Comment: (Note) The plasma JONNY-1 antigen normal range is based on fasting morning samples in adults. ??JONNY-1 level s follow a diurnal variation, with peak levels occurring in the customer support agent and farrukh levels in the afternoon. This test was developed and its performa nce characteristics determined by [facility] in a manner co nsistent with CLIA requirements. This test has not been romi ared or approved by the U.S. Food and Drug Administration. Test Performed by: [facility] - [address] [address] Oral Surgery Assistant: Ronak Jensen M.D. Ph. D.; CLIA# [id number] Specimen Anatomical Collection Method Collection Time Receive d Time (Source) Location / / Volume Laterality Blood specimen 06/20/2020 8:40 AM 020 8:44 (specimen) [facility] AM [facility] Mariposa Atwood MD LAB - BLOOD ORDERABLES Performing Organization Address City/[facility]/ZIP Code Phon e Number [address] [address] [facility] Factor 13 Antigen Subunit A (06/20/2020 8:40 AM [facility]) athologist Signature FACTOR 13 AGN 97 75 - 155 % 06/21/2020 [facility] OF SUBUNIT A 2:08 PM [facility] Specimen Anatomical Collection Method Collection Time Receive d Time (Source) Location / / Volume Laterality Blood specimen 06/20/2020 8:40 AM 020 8:44 (specimen) [facility] AM [facility] Mariposa Atwood MD LAB - BLOOD ORDERABLES Performing Organization Address City/[facility] Phon e Number [place] [phone] [facility] Factor 10 assay (06/20/2020 8:40 AM [facility]) athologist Signature Factor 10 133 60 - 140 % 06/20/2020 [facility]ITY OF Assay 11:39 AM [facility] Comment: The Factor 10 activity level [...] specimen 06/20/2020 8:40 AM 020 8:44 (specimen) [facility] AM [facility] Mariposa Atwood MD LAB - BLOOD ORDERABLES Performing Organization Address City/[facility] Code Phon e Number [place] [phone] [facility] Factor 2 assay (06/20/2020 8:40 AM [facility]) athologist Signature Factor 2 Assay 114 60 - 140 % 06/20/2020 [facility] OF 11:39 AM [facility] Comment: The Factor 2 activity level is not a scr eening test for the Prothrombin 45[address] mutation. Specimen Anatomical Collection Method Collection Time Receive d Time (Source) Location / / Volume Laterality Blood specimen 06/20/2020 8:40 AM 020 8:44 (specimen) P[facility]ER AM [facility] Mariposa Atwood MD LAB - BLOOD ORDERABLES Performing Organization Address City/[facility]/ZIP Code Phon e Number [phone] [place] [address] Factor 7 assay (06/20/2020 8:40 AM [facility]) athologist Signature Factor 7 Assay 117 50 - 129 % 06/20/2020 [facility] OF 11:39 AM [facility] Specimen Anatomical Collection Method Collection Time Receive d Time (Source) Location / / Volume Laterality Blood specimen 06/20/2020 8:40 AM 020 8:44 (specimen) [facility] AM [facility] Mariposa Atwood MD LAB - BLOOD ORDERABLES Performing Organization Address City/[facility]/ZIP Code Phon e Number [address] Factor 5 assay (06/20/2020 8:40 AM [facility]) athologist Signature Factor 5 Assay 103 60 - 140 % 06/20/2020 [facility] OF 11:45 AM [facility] Comment: The Factor 5 activity level does not cor relate with the presence of the Factor V Leiden mutation and is not a screenin g test for the Factor V Leiden mutation. Specimen Anatomical Collection Method Collection Time Receive d Time (Source) Location / / Volume Laterality Blood specimen 06/20/2020 8:40 AM 020 8:44 (specimen) [facility]ER AM [facility] Mariposa Atwood MD LAB - BLOOD ORDERABLES Performing Organization Address City/[facility]/ZIP Code Phon e Number [address] [address] [facility] Factor 9 assay (06/20/2020 8:40 AM [facility]) athologist Signature Factor 9 Assay 115 65 - 150 % 06/20/2020 [facility] OF 11:39 AM [facility] Specimen Anatomical Collection Method Collection Time Receive d Time (Source) Location / / Volume Laterality Blood specimen 06/20/2020 8:40 AM 020 8:44 (specimen) [facility]ER AM [facility] Mariposa Atwood MD LAB - BLOOD ORDERABLES Performing Organization Address City/State/ZIP Code Phon e Number [address] [place] [address] [facility] Factor 11 assay (06/20/2020 8:40 AM [facility]) athologist Signature Factor 11 99 65 - 150 % 06/20/2020 [facility]ITY OF Assay 11:39 AM [facility] Specimen Anatomical Collection Method Collection Time Receive d Time (Source) Location / / Volume Laterality Blood specimen 06/20/2020 8:40 AM 020 8:44 (specimen) [facility] AM [facility] Mariposa Atwood MD LAB - BLOOD ORDERABLES Performing Organization Address City/State/ZIP Code Phon e Number [facility] [address] [place] [address] [facility] Thrombin time (06/20/2020 8:40 AM [facility]) athologist Signature Thrombin Time 16.0 13.0 - 06/20/2020 [facility] OF 19.0 sec 12:06 PM [facility] Specimen Anatomical Collection Method Collection Time Receive d Time (Source) Location / / Volume Laterality Blood specimen 06/20/2020 8:40 AM 020 8:44 (specimen) [facility] AM [facility] Mariposa Atwood MD LAB - BLOOD ORDERABLES Performing Organization Address City/State/ZIP Code Phon e Number [facility] [address] [place] [address] [facility] Fibrinogen activity (06/20/2020 8:40 AM [facility]) athologist Signature Fibrinogen 279 200 - 420 06/20/2020 [facility]ITY OF mg/dL 8:59 AM [facility] Specimen Anatomical Collection Method Collection Time Receive d Time (Source) Location / / Volume Laterality Blood specimen 06/20/2020 8:40 AM 020 8:44 (specimen) [facility] AM [facility] Mariposa Atwood MD LAB - BLOOD ORDERABLES Performing Organization Address City/State/ZIP Code Phon e Number [address] [address] [facility] Partial thromboplastin time (06/20/2020 8:40 AM [facility]) athologist Signature PTT 31 22 - 37 sec 06/20/2020 UNIVERSITY 8:59 AM [facility] Specimen Anatomical Collection Method Collection Time Receive d Time (Source) Location / / Volume Laterality Blood specimen 06/20/2020 8:40 AM 020 8:44 (specimen) [facility] AM [facility] Mariposa Atwood MD LAB - BLOOD ORDERABLES Performing Organization Address City/[facility]/ZIP Code Phon e Number [phone] [place] [address] [facility] INR (06/20/2020 8:40 AM [facility]) P athologist Signature INR 1.08 0.86 - 1.14 06/20/2020 UNIVERSITY 8:59 AM [facility] Specimen Anatomical Collection Method Collection Time Receive d Time (Source) Location / / Volume Laterality Blood specimen 06/20/2020 8:40 AM 020 8:44 (specimen) [facility]ER AM [facility] Mariposa Atwood MD LAB - BLOOD ORDERABLES Performing Organization Address City/State/ZIP Code Phon e Number [address] [address] [facility] von Willebrand Interpretation (06/20/2020 8:40 AM [facility]) Patholo gist Method Time Signature von Willebrand (Note) 06/29/2020 UN[facility]ITY OF Interpretation 1:39 PM [facility] Comment: The von Willebrand factor antigen [...] factor multimers is normal (see report from [employer]). The Ristocetin Induced Platelet Aggregat ion (RIPA) [...] also be helpful. ?? Sunni Whitley M.D. ??[phone] 06/29/2020 Specimen Anatomical Collection Method Collection Time Receive d Time (Source) Location / / Volume Laterality Blood specimen 06/20/2020 8:40 AM 8:44 (specimen) [facility] AM [facility] Mariposa Atwood MD LAB - BLOOD ORDERABLES Performing Organization Address City/[facility]/ZIP Code Phon e Number [address] Von Willebrand Multimers (06/20/2020 8:40 AM [facility]) Component Value Ref Test Analysis Performed At Patholo gist Range Method Time Signature Von Multimer analysis will be se nt. Reordered as reference send out test. Interpretation 06/22/2020 UN[facility]ERSITY OF Willebrand pending multimer analysis. 2:20 PM [facility] Specimen Anatomical Collection Method Collection Time Receive d Time (Source) Location / / Volume Laterality Blood specimen 06/20/2020 8:40 AM 020 8:44 (specimen) P[facility]ER AM [facility] Mariposa Atwood MD LAB - BLOOD ORDERABLES Performing Organization Address City/[facility]/ZIP Code Phon e Number [address] VWF Activity with reflex to Ristocetin Cofactor Activity (06/20/2020 8:40 AM [facility]) P athologist Signature von Willebrand 83 50 - 180 % 06/22/2020 UN[facility]ERSITY OF Factor Activity 10:50 AM [facility] Specimen Anatomical Collection Method Collection Time Receive d Time (Source) Location / / Volume Laterality Blood specimen 06/20/2020 8:40 AM 9:10 (specimen) [facility]ER AM [facility] Mariposa Atwood MD LAB - BLOOD ORDERABLES Performing Organization Address City/[facility]/Z[place] [address] [facility] Von Willebrand antigen (06/20/2020 8:40 AM [facility]) athologist Signature von Willebrand 77 50 - 200 % 06/22/2020 UN[facility]ERSITY OF Antigen 10:50 AM [facility] Comment: The presence of Rheumatoid Factor may pr oduce an overestimation of the test result. Specimen Anatomical Collection Method Collection Time Receive d Time (Source) Location / / Volume Laterality Blood specimen 06/20/2020 8:40 AM 020 8:44 (specimen) PIPE STEM SAWYER AM [facility] Mariposa Atwood MD LAB - BLOOD ORDERABLES Performing Organization Address City/State/ZIP Code Phon e Number [facility] [address] Factor 8 assay (06/20/2020 8:40 AM [facility]) athologist Signature Factor 8 Assay 62 55 - 200 % 06/22/2020 UN[facility]ITY OF 10:49 AM [facility] Specimen Anatomical Collection Method Collection Time Receive d Time (Source) Location / / Volume Laterality Blood specimen 06/20/2020 8:40 AM 020 8:44 (specimen) P[facility]ER AM [facility] Mariposa Atwood MD LAB - BLOOD ORDERABLES Performing Organization Address City/State/ZIP Code Phon e Number [address] Platelet Aggregation w/ ADP, TBN, COL, ARACH A, RIST(3conc) (06/20/2020 8:40 AM [facility]) [facility] gist Method Time Signature ADP See table 06/20/2020 UN[facility]ITY OF below 2:11 PM [facility] Thrombin See table 06/20/2020 [facility] below 2:11 PM [facility] Epinephrine See table 06/20/2020 [facility] below 2:11 PM [facility] Collagen See table 06/20/2020 [facility] 2:11 PM [facility] Arachadonic Acid (Note) 06/20/2020 UNIVERSITY O F 2:11 PM [facility] Comment: Abnormal platelet aggregation study. The [...] activator gene (PLAU) which is associated with [place] platelet disorder as this disorder may h ave abnormal aggregation to Epinephrine. ? Sunni Whitley M.D. [phone] ? 06/20/2020 ? ATP RELEASE: ? ATP [...] 63% Ristocetin-4 Conc (Note) 06/20/2020 2:11 PM [facility] Comment: See full platelet aggregation comments. ? Sunni Whitley M.D. [phone] ? 06/20/2020 ? RISTOCETIN: Concentration ?Primary Agg [...] specimen 06/20/2020 8:40 AM 020 8:44 (specimen) P[facility]ER AM [facility] Mariposa Atwood MD LAB - BLOOD ORDERABLES Performing Organization Address City/State/ZIP Code Phon e Number [facility] [address] [place], [place] [phone] [place] [address] documented in this encounter Visit Diagnoses Diagnosis Von Willebrand's disease - Primary documented in this encounter Care Teams Switchboard Operator Helper Relationship Specialty Start Date End Date Clinic, [facility] PCP - General 10/15/17 08/08/[address] [address] Julian Spencer MD MD Orthopedics 03/08/[address] [place], [place] [id number] Mariposa Atwood, Assigned PCP 04/29/2005/25 [address] [facility] [address] [place], [place] [address] Julian Spencer MD Assigned Musculoskeletal 05/27/[address] Provider [place], [place] [address]184 documented as of this encounter
--- OUTSIDE RECORDS SUMMARY | 2022-07-02 21:51 | XMS_ITS | Encounter Summary ---
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 documented as of this encounter Plan of Treatment Not on filedocumented as of this encounter Visit Diagnoses Not on filedocumented in this encounter Care Teams Legal Document Specialist Relationship Specialty Start Date End Date [facility] PCP - General 10/15/17 08/08/[address] [address] Julian Spencer MD MD Orthopedics 03/08/[address] [place], [place] [phone] Mariposa Atwood, Assigned PCP 04/29/2005/25 [facility] [place], [place] [phone] Julian Spencer MD Assigned Musculoskeletal 05/27/[address] Provider [place], [place] [phone] Eugenio Finney, Assigned Pediatric 06/19/20 06/03/21 Specialist Provider [address] [facility] [address] [place], [place] [phone] documented as of this encounter
--- OUTSIDE RECORDS SUMMARY | 2022-07-02 21:51 | XMS_ITS | Encounter Summary ---
:2000 Author Organization [place] Address [address] [place] [id number] Care Team Providers Name Role Phone Clinic, [facility] Primary Care Provide r Julian Spencer MD Unavailable Mariposa Atwood MD Unavailable [phone] Julian Spencer MD Unavailable Eugenio Finney MD Unavailable [phone] Encounter Details Date Type Department Care Team Description 07/14/2020 Documentation Only [facility] Julian Spencer, Orth[facility] [place] [id number] [place], [place] 4th [address] [address] [place], [place] [phone] (Wo rk) [id number] [phone] Social History Tobacco Use Types Packs/Day Years Used Date Smoking Tobacco: Never Smokeless Tobacco: Never Sex Assigned at Date Recorded Female 12/02/2020 1:42 PM CDT COVID-19 Exposure Response Date Recorded In the last month, have you been in contact with No / Unsure 07/05/2020 8:01 AM SOLID SURFACE FABRICATOR someone who was confirmed or suspected to have Coronavirus / COVID-19? documented as of this encounter Progress Notes Julian Spencer MD - 07/14/2020 9:40 AM CST Spent 30 min on the phone with Dr Atwood reviewing all of the details. The [facility] platelet disordergenetic testing is pending. Plan is: [...] intraop although these are typically normal in [facility] platelet disorder. Patient will need T&C for massive transfusion protocol and needs current EOS imaging prior to surgery. D SURFACE FABRICATOR documented in this encounter Plan of Treatment Not on filedocumented as of this encounter Visit Diagnoses Not on filedocumented in this encounter Care Teams Blocking Machine Tender Relationship Specialty Start Date End Date Clinic, [facility] PCP - General 10/15/17 08/08/[address] [address] Julian Spencer MD MD Orthopedics 03/08/[address] [place] [address] [id number] Mariposa Atwood, Assigned PCP 04/29/2005/25 Formerly [facility] [place], [place] [address] Julian Spencer MD Assigned Musculoskeletal 05/27/[address] Provider [place], [place] [address] Eugenio Finney, Assigned Pediatric 06/19/20 06/03/21 Specialist Provider [address] [place] [address] [address] documented as of this encounter
--- OUTSIDE RECORDS SUMMARY | 2022-07-02 21:51 | XMS_ITS | Encounter Summary ---
:2001 Author Organization [facility] Address [address] [place] [id number] Care Team Providers Name Role Phone Clinic, [facility] Primary Care Provide r Julian Spencer MD Unavailable Mariposa Atwood MD Unavailable [phone] Julian Spencer MD Unavailable Eugenio Finney MD Unavailable [phone] Encounter Details Date Type Department Care Team Description 06/20/2020 Orders Only [facility] Lab Von Wi llebrand's disease [place] () [address] Floor [place] [phone] Social History Tobacco Use Types Packs/Day Years Used Date Smoking Tobacco: Never Smokeless Tobacco: Never Sex Assigned at Date Recorded Female 12/02/2020 1:42 PM CDT COVID-19 Exposure Response Date Recorded In the last month, have you been in contact with No / Unsure 06/20/2020 8:16 AM RED CROSS WORKER someone who was confirmed or suspected to have Coronavirus / COVID-19? documented as of this encounter Plan of Treatment Not on filedocumented as of this encounter Procedures Procedure Name Priority Date/Time Associated Comments Diagnosis SEND OUTS MISC TEST Routine 06/20/2020 8:40 AM Von Willebrand' s Results for this RED CROSS WORKER disease (H) procedure are i n the results section. SEND OUTS MISC TEST Routine 06/20/2020 8:40 AM Von Willebrand' s Results for this RED CROSS WORKER disease (H) procedure are i n the results section. LABORATORY Routine 06/20/2020 8:40 AM Von Willebrand's Resul ts for this MISCELLANEOUS ORDER RED CROSS WORKER disease (H) procedur e are in the results section. LABORATORY Routine 06/20/2020 8:40 AM Von Willebrand's Resul ts for this MISCELLANEOUS ORDER RED CROSS WORKER disease (H) procedur e are in the results section. CARDIOLIPIN JOSUE IGG AND Routine 06/20/2020 8:40 AM Von Willebr and's Results for this IGM RED CROSS WORKER disease (H) procedure are i n the results section. BETA 2 GLYCOPROTEIN Routine 06/20/2020 8:40 AM Von Willebrand' s Results for this ANTIBODIES IGG IGM RED CROSS WORKER disease (H) procedure are in the results section. PLASMINOGEN ACTIVATOR Routine 06/20/2020 8:40 AM Von Willebran d's Results for this INHIBITOR 1 RED CROSS WORKER disease (H) procedure are i n the results section. VON WILLEBRAND Routine 06/20/2020 8:40 AM Von Willebrand's Res ults for this INTERPRETATION RED CROSS WORKER disease (H) procedure are in the results section. FACTOR 13 ANTIGEN Routine 06/20/2020 8:40 AM Von Willebrand's Results for this SUBUNIT A RED CROSS WORKER disease (H) procedure are i n the results section. VWF ACTIVITY REFLEX TO Routine 06/20/2020 8:40 AM Von Willebra nd's Results for this RISTOCETIN COFACTOR RED CROSS WORKER disease (H) procedur e are in the results section. VON WILLEBRAND FACTOR Routine 06/20/2020 8:40 AM Von Willebran d's Results for this MULTIMERS RED CROSS WORKER disease (H) procedure are i n the results section. RISTOCETIN COFACTOR Routine 06/20/2020 8:40 AM Von Willebrand' s Results for this ACTIVITY RED CROSS WORKER disease (H) procedure are i n the results section. VON WILLEBRAND Routine 06/20/2020 8:40 AM Von Willebrand's Res ults for this MULTIMERS RED CROSS WORKER disease (H) procedure are i n the results section. TEG WITHOUT HEPARINASE Routine 06/20/2020 8:40 AM Von Willebra nd's Results for this RED CROSS WORKER disease (H) procedure are i n the results section. VON WILLEBRAND ANTIGEN Routine 06/20/2020 8:40 AM Von Willebra nd's Results for this RED CROSS WORKER disease (H) procedure are i n the results section. TSH WITH FREE T4 REFLEX Routine 06/20/2020 8:40 AM Von Willebr and's Results for this RED CROSS WORKER disease (H) procedure are i n the results section. THROMBIN TIME Routine 06/20/2020 8:40 AM Von Willebrand's Resu lts for this RED CROSS WORKER disease (H) procedure are i n the results section. INR Routine 06/20/2020 8:40 AM Von Willebrand's Resul ts for this RED CROSS WORKER disease (H) procedure are i n the results section. PLATELET AGGREGATION W/ Routine 06/20/2020 8:40 AM Von Willebr and's Results for this ADP, TBN, COL, ARACH A, RED CROSS WORKER disease (H) proc edure are in RIST(3CONC) the results section. PLASMINOGEN ACTIVITY Routine 06/20/2020 8:40 AM Von Willebrand 's Results for this RED CROSS WORKER disease (H) procedure are i n the results section. PARTIAL THROMBOPLASTIN Routine 06/20/2020 8:40 AM Von Willebra nd's Results for this TIME RED CROSS WORKER disease (H) procedure are i n the results section. LUPUS ANTICOAGULANT Routine 06/20/2020 8:40 AM Von Willebrand' s Results for this PANEL RED CROSS WORKER disease (H) procedure are i n the results section. FIBRINOGEN ACTIVITY Routine 06/20/2020 8:40 AM Von Willebrand' s Results for this RED CROSS WORKER disease (H) procedure are i n the results section. FACTOR 9 ASSAY Routine 06/20/2020 8:40 AM Von Willebrand's Res ults for this RED CROSS WORKER disease (H) procedure are i n the results section. FACTOR 8 ASSAY Routine 06/20/2020 8:40 AM Von Willebrand's Res ults for this RED CROSS WORKER disease (H) procedure are i n the results section. FACTOR 7 ASSAY Routine 06/20/2020 8:40 AM Von Willebrand's Res ults for this RED CROSS WORKER disease (H) procedure are i n the results section. FACTOR 5 ASSAY Routine 06/20/2020 8:40 AM Von Willebrand's Res ults for this RED CROSS WORKER disease (H) procedure are i n the results section. FACTOR 2 ASSAY Routine 06/20/2020 8:40 AM Von Willebrand's Res ults for this RED CROSS WORKER disease (H) procedure are i n the results section. FACTOR 11 ASSAY Routine 06/20/2020 8:40 AM Von Willebrand's Re sults for this RED CROSS WORKER disease (H) procedure are i n the results section. FACTOR 10 ASSAY Routine 06/20/2020 8:40 AM Von Willebrand's Re sults for this RED CROSS WORKER disease (H) procedure are i n the results section. CRP INFLAMMATION Routine 06/20/2020 8:40 AM Von Willebrand's R esults for this RED CROSS WORKER disease (H) procedure are i n the results section. ABO AND RH Routine 06/20/2020 8:40 AM Von Willebrand's Resul ts for this RED CROSS WORKER disease (H) procedure are i n the results section. documented in this encounter Results von Willebrand Factor Multimers (06/20/2020 8:40 AM RED CROSS WORKER) [facility] Method Time Signature von Willebrand SEE NOTE 06/28/2020 [facility] Factor 5:41 PM RED CROSS WORKER [facility] [place] Comment: (Note) von Willebrand factor multimeric analysi [...] von Willebrand disease is available at [email or web address]. INTERPRETIVE INFORMATION: von Willebrand Factor Multimers This test was developed and its performa nce characteristics determined by [facility]. The U. S. Food and Drug Administration has not approved or clear ed this test; however, FDA clearance or approval is no t currently required for clinical use. The results a re not intended to be used as the sole means for clinical d iagnosis or patient management decisions. Test developed and characteristics deter mined by [facility]. See Compliance Statement D : [employer].Expert TA/CS Performed By: [facility] [address] [place] [address] Spring Inspector: Brandi Dooley MD Specimen Anatomical Collection Method Collection Time Receive d Time (Source) Location / / Volume Laterality 06/20/2020 8:40 AM 0 8:44 RED CROSS WORKER AM RED CROSS WORKER Mariposa Atwood MD LAB - BLOOD ORDERABLES Performing Organization Address City/State/ZIP Code Phon e Number [address] [address] [facility] Ristocetin Cofactor Activity (06/20/2020 8:40 AM RED CROSS WORKER) P athologist Signature Ristocetin 75 51 - 215 % 06/24/2020 [facility] Cofactor 12:50 PM RED CROSS WORKER [place] Activity [facility] Comment: (Note) REFERENCE INTERVAL: von Willebrand Facto r, Activity (RCF) Access complete set of age- and/or gende r-specific reference intervals for this test in the [facility] Test [facility] ([employer]). Performed by [facility], [address] [place] [address] [email or web address], Brandi Dooley MD, Lab. Director Specimen Anatomical Collection Method Collection Time Receive d Time (Source) Location / / Volume Laterality 06/20/2020 8:40 AM 0 8:44 RED CROSS WORKER AM RED CROSS WORKER Mariposa Atwood MD LAB - BLOOD ORDERABLES Performing Organization Address City/[facility]/ZIP Code Phon e Number [address] [address] [facility] Send outs misc test (06/20/2020 8:40 AM RED CROSS WORKER) Analysis Performed At Patho logist Time Signature Lab Scanned SEND OUTS MISYS Result MISC TEST-Scann ed Specimen Anatomical Collection Method Collection Time Receive d Time (Source) Location / / Volume Laterality 06/20/2020 8:40 AM 0 RED CROSS WORKER 12:17 PM RED CROSS WORKER Mariposa Atwood MD LAB - BLOOD ORDERABLES Performing Organization Address City/State/ZIP Code Phon e Number MISYS Send outs misc test (06/20/2020 8:40 AM RED CROSS WORKER) Analysis Performed At Patho logist Time Signature Lab Scanned SEND OUTS MISYS Result MISC TEST-Scann ed Specimen (Source) Anatomical Collection Method Collection Time Re ceived Time Location / / Volume Laterality 06/20/2020 8:40 AM RED CROSS WORKER Mariposa Atwood MD LAB - BLOOD ORDERABLES Performing Organization Address City/State/ZIP Code Phon e Number [facility] Platelet Aggregation w/ ADP, TBN, COL, ARACH A, RIST(3conc) (06/20/2020 8:40 AM RED CROSS WORKER) [facility] Method Time Signature ADP See table 06/20/2020 [facility] 2:11 PM [facility] Thrombin See table 06/20/2020 [facility] 2:11 PM [facility] Epinephrine See table 06/20/2020 [facility] 2:11 PM [facility] Collagen See table 06/20/2020 [facility] 2:11 PM [facility] Arachadonic Acid (Note) 06/20/2020 [facility] 2:11 PM [facility] Comment: Abnormal platelet aggregation study. The [...] activator gene (PLAU) which is associated with [place] platelet disorder as this disorder may h ave abnormal aggregation to Epinephrine. ? Sunni Whitley M.D. [phone] ? 06/20/2020 ? ATP RELEASE: ? ATP [...] 63% Ristocetin-4 Conc (Note) 06/20/2020 2:11 PM RED CROSS WORKER [facility] Comment: See full platelet aggregation comments. ? Sunni Whitley M.D. [phone] ? 06/20/2020 ? RISTOCETIN: Concentration ?Primary Agg [...] Blood specimen 06/20/2020 8:40 AM 8:44 (specimen) RED CROSS WORKER AM RED CROSS WORKER Mariposa Atwood MD LAB - BLOOD ORDERABLES Performing Organization Address [facility] Phon e Number [facility] [address] Factor 8 assay (06/20/2020 8:40 AM RED CROSS WORKER) P athologist Signature Factor 8 Assay 62 55 - 200 % 06/22/2020 [facility] 10:49 AM RED CROSS WORKER [facility] Specimen Anatomical Collection Method Collection Time Receive d Time (Source) Location / / Volume Laterality Blood specimen 06/20/2020 8:40 AM 020 8:44 (specimen) RED CROSS WORKER AM RED CROSS WORKER Mariposa Atwood MD LAB - BLOOD ORDERABLES Performing Organization Address [facility]/ZIP Code Phon e Number [facility] [address] [place] [id number] [facility] Von Willebrand antigen (06/20/2020 8:40 AM RED CROSS WORKER) P athologist Signature von Willebrand 77 50 - 200 % 06/22/2020 [facility] Antigen 10:50 AM RED CROSS WORKER [facility] Comment: The presence of Rheumatoid Factor may pr oduce an overestimation of the test result. Specimen Anatomical Collection Method Collection Time Receive d Time (Source) Location / / Volume Laterality Blood specimen 06/20/2020 8:40 AM 020 8:44 (specimen) RED CROSS WORKER AM RED CROSS WORKER Mariposa Atwood MD LAB - BLOOD ORDERABLES Performing Organization Address City/[facility]/ZIP Code Phon e Number [facility] [address] [place] [address] [facility] VWF Activity with reflex to Ristocetin Cofactor Activity (06/20/2020 8:40 AM RED CROSS WORKER) athologist Signature von Willebrand 83 50 - 180 % 06/22/2020 [facility] Factor Activity 10:50 AM [facility] Specimen Anatomical Collection Method Collection Time Receive d Time (Source) Location / / Volume Laterality Blood specimen 06/20/2020 8:40 AM 020 9:10 (specimen) RED CROSS WORKER AM RED CROSS WORKER Mariposa Atwood MD LAB - BLOOD ORDERABLES Performing Organization Address City/State/ZIP Code Phon e Number [facility] [address] [place] [phone] [facility] Von Willebrand Multimers (06/20/2020 8:40 AM RED CROSS WORKER) Component Value Ref Test Analysis Performed At [facility] Range Method Time Signature Von Multimer analysis will be se nt. Reordered as reference send out test. Interpretation 06/22/2020 [facility] Willebrand pending multimer analysis. 2:20 PM [facility] Specimen Anatomical Collection Method Collection Time Receive d Time (Source) Location / / Volume Laterality Blood specimen 06/20/2020 8:40 AM 020 8:44 (specimen) RED CROSS WORKER AM RED CROSS WORKER Mariposa Atwood MD LAB - BLOOD ORDERABLES Performing Organization Address City/[facility]/ZIP Code Phon e Number [address] [address] [facility] von Willebrand Interpretation (06/20/2020 8:40 AM RED CROSS WORKER) [facility] Method Time Signature von Willebrand (Note) 06/29/2020 [facility] Interpretation 1:39 PM [facility] Comment: The von Willebrand factor antigen [...] factor multimers is normal (see report from [facility]). The Ristocetin Induced Platelet Aggregat ion (RIPA) [...] also be helpful. ?? Sunni Whitley M.D. ??[phone] 06/29/2020 Specimen Anatomical Collection Method Collection Time Receive d Time (Source) Location / / Volume Laterality Blood specimen 06/20/2020 8:40 AM 020 8:44 (specimen) RED CROSS WORKER AM RED CROSS WORKER Mariposa Atwood MD LAB - BLOOD ORDERABLES Performing Organization Address City/State/ZIP Code Phon e Number [phone] [place] [address] INR (06/20/2020 8:40 AM RED CROSS WORKER) P athologist Signature INR 1.08 0.86 - 1.14 06/20/2020 [facility] 8:59 AM [facility] Specimen Anatomical Collection Method Collection Time Receive d Time (Source) Location / / Volume Laterality Blood specimen 06/20/2020 8:40 AM 020 8:44 (specimen) RED CROSS WORKER AM RED CROSS WORKER Mariposa Atwood MD LAB - BLOOD ORDERABLES Performing Organization Address City/State/ZIP Code Phon e Number [address] [address] [facility] Partial thromboplastin time (06/20/2020 8:40 AM RED CROSS WORKER) P athologist Signature PTT 31 22 - 37 sec 06/20/2020 [facility] 8:59 AM [facility] Specimen Anatomical Collection Method Collection Time Receive d Time (Source) Location / / Volume Laterality Blood specimen 06/20/2020 8:40 AM 11/16/2 020 8:44 (specimen) RED CROSS WORKER AM RED CROSS WORKER Mariposa Atwood MD LAB - BLOOD ORDERABLES Performing Organization Address City/[facility]/ZIP Code Phon e Number [address] [address] [facility] Fibrinogen activity (06/20/2020 8:40 AM RED CROSS WORKER) P athologist Signature Fibrinogen 279 200 - 420 06/20/2020 [facility] mg/dL 8:59 AM RED CROSS WORKER [facility] Specimen Anatomical Collection Method Collection Time Receive d Time (Source) Location / / Volume Laterality Blood specimen 06/20/2020 8:40 AM 020 8:44 (specimen) RED CROSS WORKER AM RED CROSS WORKER Mariposa Atwood MD LAB - BLOOD ORDERABLES Performing Organization Address City/[facility] Phon e Number [address] [address] [facility] Thrombin time (06/20/2020 8:40 AM RED CROSS WORKER) P athologist Signature Thrombin Time 16.0 13.0 - 06/20/2020 [facility] 19.0 sec 12:06 PM RED CROSS WORKER [facility] Specimen Anatomical Collection Method Collection Time Receive d Time (Source) Location / / Volume Laterality Blood specimen 06/20/2020 8:40 AM 020 8:44 (specimen) RED CROSS WORKER AM RED CROSS WORKER Mariposa Atwood MD LAB - BLOOD ORDERABLES Performing Organization Address City/[facility]/ZIP Code Phon e Number [facility] [address] [place] [address] [facility] Factor 11 assay (06/20/2020 8:40 AM RED CROSS WORKER) athologist Signature Factor 11 99 65 - 150 % 06/20/2020 [facility] Assay 11:39 AM [facility] Specimen Anatomical Collection Method Collection Time Receive d Time (Source) Location / / Volume Laterality Blood specimen 06/20/2020 8:40 AM 020 8:44 (specimen) RED CROSS WORKER AM RED CROSS WORKER Mariposa Atwood MD LAB - BLOOD ORDERABLES Performing Organization Address City/State/ZIP Code Phon e Number [facility] [address] [place] [address] [facility] Factor 9 assay (06/20/2020 8:40 AM RED CROSS WORKER) athologist Signature Factor 9 Assay 115 65 - 150 % 06/20/2020 [facility] 11:39 AM [facility] Specimen Anatomical Collection Method Collection Time Receive d Time (Source) Location / / Volume Laterality Blood specimen 06/20/2020 8:40 AM 020 8:44 (specimen) RED CROSS WORKER AM RED CROSS WORKER Mariposa Atwood MD LAB - BLOOD ORDERABLES Performing Organization Address City/State/ZIP Code Phon e Number [facility] [address] [place] [address] [facility] Factor 5 assay (06/20/2020 8:40 AM RED CROSS WORKER) athologist Signature Factor 5 Assay 103 60 - 140 % 06/20/2020 [facility] 11:45 AM [facility] Comment: The Factor 5 activity level does not cor relate with the presence of the Factor V Leiden mutation and is not a screenin g test for the Factor V Leiden mutation. Specimen Anatomical Collection Method Collection Time Receive d Time (Source) Location / / Volume Laterality Blood specimen 06/20/2020 8:40 AM 020 8:44 (specimen) RED CROSS WORKER AM RED CROSS WORKER Mariposa Atwood MD LAB - BLOOD ORDERABLES Performing Organization Address City/State/ZIP Code Phon e Number [facility] [address] [place] [address] [facility] Factor 7 assay (06/20/2020 8:40 AM RED CROSS WORKER) athologist Signature Factor 7 Assay 117 50 - 129 % 06/20/2020 [facility] 11:39 AM RED CROSS WORKER [facility] Specimen Anatomical Collection Method Collection Time Receive d Time (Source) Location / / Volume Laterality Blood specimen 06/20/2020 8:40 AM 020 8:44 (specimen) RED CROSS WORKER AM RED CROSS WORKER Mariposa Atwood MD LAB - BLOOD ORDERABLES Performing Organization Address City/State/ZIP Code Phon e Number [facility] [address] [place] [address] [facility] Factor 2 assay (06/20/2020 8:40 AM RED CROSS WORKER) athologist Signature Factor 2 Assay 114 60 - 140 % 06/20/2020 [facility] 11:39 AM [facility] Comment: The Factor 2 activity level is not a scr eening test for the Prothrombin [id number] mutation. Specimen Anatomical Collection Method Collection Time Receive d Time (Source) Location / / Volume Laterality Blood specimen 06/20/2020 8:40 AM 020 8:44 (specimen) RED CROSS WORKER AM RED CROSS WORKER Mariposa Atwood MD LAB - BLOOD ORDERABLES Performing Organization Address City/[facility]/ZIP Code Phon e Number [facility] [address] Factor 10 assay (06/20/2020 8:40 AM RED CROSS WORKER) athologist Signature Factor 10 133 60 - 140 % 06/20/2020 [facility] Assay 11:39 AM [facility] Comment: The Factor 10 activity level [...] specimen 06/20/2020 8:40 AM 020 8:44 (specimen) RED CROSS WORKER AM RED CROSS WORKER Mariposa Atwood MD LAB - BLOOD ORDERABLES Performing Organization Address City/[facility]/ZIP Code Phon e Number [facility] [address] [place] [address] [facility] Factor 13 Antigen Subunit A (06/20/2020 8:40 AM RED CROSS WORKER) athologist Signature FACTOR 13 AGN 97 75 - 155 % 06/21/2020 [facility] SUBUNIT A 2:08 PM [facility] Specimen Anatomical Collection Method Collection Time Receive d Time (Source) Location / / Volume Laterality Blood specimen 06/20/2020 8:40 AM 020 8:44 (specimen) RED CROSS WORKER AM RED CROSS WORKER Mariposa Atwood MD LAB - BLOOD ORDERABLES Performing Organization Address City/State/ZIP Code Phon e Number [facility] [address] [place] [address] [facility] Plasminogen Activator Inhibitor 1 (06/20/2020 8:40 AM RED CROSS WORKER) athologist Signature Plasminogen 7 3 - 72 06/29/2020 [facility] Activator ng/mL 2:14 PM RED CROSS WORKER [facility] Comment: (Note) The plasma JONNY-1 antigen normal range is based on fasting morning samples in adults. ??JONNY-1 level s follow a diurnal variation, with peak levels occurring in the terrazzo layer helper and farrukh levels in the afternoon. This test was developed and its performa nce characteristics determined by [facility] in a manner co nsistent with CLIA requirements. This test has not been romi ared or approved by the U.S. Food and Drug Administration. Test Performed by: [place] [address] Medical Practice Manager: Ronak Jensen M.D. Ph. D.; CLIA# [id number] Specimen Anatomical Collection Method Collection Time Receive d Time (Source) Location / / Volume Laterality Blood specimen 06/20/2020 8:40 AM 020 8:44 (specimen) RED CROSS WORKER AM RED CROSS WORKER Mariposa Atwood MD LAB - BLOOD ORDERABLES Performing Organization Address City/[facility]/ZIP Code Phon e Number [facility] [address] [place] [address] [facility] Plasminogen activity (06/20/2020 8:40 AM RED CROSS WORKER) athologist Signature Plasminogen 124 80 - 133 % 06/22/2020 [facility] Chromogenic 8:55 AM [facility] Specimen Anatomical Collection Method Collection Time Receive d Time (Source) Location / / Volume Laterality Blood specimen 06/20/2020 8:40 AM 020 8:44 (specimen) RED CROSS WORKER AM RED CROSS WORKER Mariposa Atwood MD LAB - BLOOD ORDERABLES Performing Organization Address City/[facility]/ZIP Code Phon e Number [facility] [address] [place] [address] [facility] TEG without Heparinase (06/20/2020 8:40 AM RED CROSS WORKER) Patholo gist Method Time Signature R time until clot 6.2 5 - 10 06/20/2020 [facility] forms Minute 11:09 AM [facility] K time to spec clot 1.4 1 - 3 06/20/2020 [facility] strength Minute 11:09 AM [facility] Angle rate of clot 68.2 53 - 72 06/20/2020 [facility] strength Degrees 11:09 AM [facility] MA maximum clot 66.4 50 - 70 mm 06/20/2020 [facility] O F strength 11:09 AM [facility] CI hypercoagulation 0.9 0.0 - 3.0 06/20/2020 [facility] index Ratio 11:09 AM [facility] G actual clot 9.9 4.5 - 11.0 06/20/2020 [facility] Kd/sc 11:09 AM [facility] LY30 lysis at 30 1.6 0 - 8 % 06/20/2020 [facility] minutes 11:09 AM [facility] LY60 lysis at 60 5.3 0 - 15 % 06/20/2020 [facility] minutes 11:09 AM [facility] Specimen Anatomical Collection Method Collection Time Receive d Time (Source) Location / / Volume Laterality Blood specimen 06/20/2020 8:40 AM 020 8:44 (specimen) RED CROSS WORKER AM RED CROSS WORKER Mariposa Atwood MD LAB - BLOOD ORDERABLES Performing Organization Address City/State/ZIP Code Phon e Number [facility] [address] [place], [place] [id number] [facility] Lupus Anticoagulant Panel (06/20/2020 8:40 AM RED CROSS WORKER) P athologist Signature Lupus Result Negative NEG^Negati 06/21/2020 [facility] ve 2:20 PM RED CROSS WORKER [facility] Comment: (Note) COMMENTS: The INR is normal. APTT ratio is normal. ?? DRVVT Screen ratio is normal. Thrombin time is normal. NEGATIVE TEST; A LUPUS ANTICOAGULANT WAS NOT DETECTED IN THIS SPECIMEN WITHIN THE LIMITS OF THE TESTIN G REPERTOIRE. If the clinical picture is strongly sugg estive of an antiphospholipid syndrome, recommend anticardiolipin and rvef-4-jwqhycskirzs (IgG and IgM) antibody tests. Sunni Whitley M.D. ??[phone] 06/21/2020 ? APTT TEST: ? APTT Ratio = ? 1.06 ? Normal is less than 1.21 ? DILUTE JANEE VIPER VENOM TEST: ? Screen Ratio = ? 0.87 ? Barb l is less than 1.21 ? Specimen Anatomical Collection Method Collection Time Receive d Time (Source) Location / / Volume Laterality Blood specimen 06/20/2020 8:40 AM 020 8:44 (specimen) RED CROSS WORKER AM RED CROSS WORKER Mariposa Atwood MD LAB - BLOOD ORDERABLES Performing Organization Address City/[facility]/ZIP Code Phon e Number [address] Cardiolipin Josue IgG and IgM (06/20/2020 8:40 AM RED CROSS WORKER) P athologist Signature Cardiolipin <1.6 0.0 - 19.9 06/22/2020 [facility] Antibody IgG GPL-U/mL 9:49 AM [facility] Comment: Negative Cardiolipin Antibody <0.2 0.0 - 19.9 06/22/2020 9:49 AM [facility] IgM MPL-U/mL [facility] Comment: Negative Specimen Anatomical Collection Method Collection Time Receive d Time (Source) Location / / Volume Laterality Blood specimen 06/20/2020 8:40 AM 020 8:44 (specimen) RED CROSS WORKER AM RED CROSS WORKER Mariposa Atwood MD LAB - BLOOD ORDERABLES Performing Organization Address City/[facility]/ZIP Code Phon e Number [address] Beta 2 Glycoprotein Antibodies IGG IGM (06/20/2020 8:40 AM RED CROSS WORKER) Analysis Performed At Patho logist Time Signature Beta 2 1.0 <7 U/mL 06/21/2020 [facility] Glycoprotein 1 11:56 AM RED CROSS WORKER [facility] Antibody IgG [facility] Comment: Negative Beta 2 Glycoprotein 1 <2.9 <7 U/mL 06/21/2020 11:56 A M [facility] Antibody IgM [facility] Comment: Negative Specimen Anatomical Collection Method Collection Time Receive d Time (Source) Location / / Volume Laterality Blood specimen 06/20/2020 8:40 AM 020 8:44 (specimen) RED CROSS WORKER AM RED CROSS WORKER Mariposa Atwood MD LAB - BLOOD ORDERABLES Performing Organization Address City/State/ZIP Code Phon e Number [phone] [place] [address] ABO and Rh (06/20/2020 8:40 AM RED CROSS WORKER) [facility] Method Time Signature ABO O 06/20/2020 [facility] 10:52 AM RED CROSS WORKER [facility] RH(D) Pos [facility] Specimen 06/23/2020 06/20/2020 [facility] Expires 10:18 AM [facility] Specimen Anatomical Collection Method Collection Time Receive d Time (Source) Location / / Volume Laterality Blood specimen 06/20/2020 8:40 AM 020 8:44 (specimen) RED CROSS WORKER AM RED CROSS WORKER Mariposa Atwood MD LAB - BLOOD BANK TEST ORDER Performing Organization Address City/[facility]/ZIP Code Phon e Number [phone] [place] [address], [facility] VWF Sequence analysis to Versiti (order code 1395): Laboratory Miscellaneous Order (06/20/2020 8:40 AM RED CROSS WORKER) Component Value Ref Test Analysis Performed At [facility] Range Method Time Signature Miscellaneous Specimen Received, Reordered and sent to Performing laboratory - Report to follow upon 06/21/2020 [facility] Test completion. 8:40 AM [facility] Specimen Anatomical Collection Method Collection Time Receive d Time (Source) Location / / Volume Laterality Blood specimen VENOUS BLOOD / 06/20/2020 8:40 AM 06/20 9:10 (specimen) Unknown RED CROSS WORKER AM RED CROSS WORKER Mariposa Atwood MD LAB - BLOOD ORDERABLES Performing Organization Address City/State/ZIP Code Phon e Number [address] [address] [facility] VWD Diagnostic evaluation to Versiti (order code 1800): Laboratory Miscellaneous Order (06/20/2020 8:40 AM RED CROSS WORKER) Component Value Ref Test Analysis Performed At Patholo gist Range Method Time Signature Miscellaneous Specimen Received, Reordered and sent to Performing laboratory - Report to follow upon 06/21/2020 [facility] Test completion. 8:40 AM RED CROSS WORKER [facility] Specimen Anatomical Collection Method Collection Time Receive d Time (Source) Location / / Volume Laterality Blood specimen VENOUS BLOOD / 06/20/2020 8:40 AM 06/20 (specimen) Unknown RED CROSS WORKER 12:17 PM RED CROSS WORKER Mariposa Atwood MD LAB - BLOOD ORDERABLES Performing Organization Address City/[facility]/ZIP Code Phon e Number [phone] [place] [address] [facility] TSH with free T4 reflex (06/20/2020 8:40 AM RED CROSS WORKER) P athologist Signature TSH 3.01 0.40 - 4.00 06/20/2020 [facility] mU/L 9:35 AM RED CROSS WORKER [facility] Specimen Anatomical Collection Method Collection Time Receive d Time (Source) Location / / Volume Laterality Blood specimen 06/20/2020 8:40 AM 020 8:44 (specimen) RED CROSS WORKER AM RED CROSS WORKER Mariposa Atwood MD LAB - BLOOD ORDERABLES Performing Organization Address City/State/ZIP Code Phon e Number [phone] [place] [address] [facility] CRP, inflammation (06/20/2020 8:40 AM RED CROSS WORKER) Analysis Performed At Patho logist Time Signature CRP Inflammation <2.9 0.0 - 8.0 06/20/2020 [facility] F mg/L 9:35 AM RED CROSS WORKER [facility] Specimen Anatomical Collection Method Collection Time Receive d Time (Source) Location / / Volume Laterality Blood specimen 06/20/2020 8:40 AM 020 8:44 (specimen) RED CROSS WORKER AM RED CROSS WORKER Mariposa Atwood MD LAB - BLOOD ORDERABLES Performing Organization Address City/State/ZIP Code Phon e Number [facility] [address] [place] [address] [facility] documented in this encounter Visit Diagnoses Diagnosis Von Willebrand's disease documented in this encounter Care Teams Supervisor Dumping Relationship Specialty Start Date End Date Clinic, [facility] PCP - General 10/15/17 08/08/[address] [address] Julian Spencer MD MD Orthopedics 03/08/[address] [place], [place] [phone] Mariposa Atwood, Assigned PCP 04/29/2005/25 [facility] [place], [place] [phone] Julian Spencer MD Assigned Musculoskeletal 05/27/[address] Provider [place], [place] [address] Eugenio Finney, Assigned Pediatric 06/19/20 06/03/21 Specialist Provider [address] [facility] 96 [place], [place] [address] documented as of this encounter
--- OUTSIDE RECORDS SUMMARY | 2022-07-02 21:51 | XMS_ITS | Encounter Summary ---
:2001 Author Organization [place] Address [address] [place] [address] Care Team Providers Name Role Phone Clinic, [facility] Primary Care Provide r Julian Spencer MD Unavailable Mariposa Atwood MD Unavailable [phone] Julian Spencer MD Unavailable Eugenio Finney MD Unavailable [phone] Reason for Referral Diagnostic Imaging XR (Routine) - Closed Specialty Diagnoses / Procedures Referred By Contact Refer red To Contact Diagnoses Other secondary scoliosis, thoracolumbar region Julian Spencer MD Procedures XR Spine Complete Scoliosis [address] [place], [place] [address] Referral ID Status Reason Start Date Expiration Date Visits Requ ested Visits Authorized [id number] Closed 07/19/2020 07/19/2021 1 1 ACTIVE METALLURGIST Diagnostic Imaging XR (Routine) - Closed Specialty Diagnoses / Procedures Referred By Contact Refer red To Contact Diagnoses Other secondary scoliosis, thoracolumbar region Julian Spencer MD Procedures XR Six Foot Standing Extremities [address] [place], [place] [address] Referral ID Status Reason Start Date Expiration Date Visits Requ ested Visits Authorized [id number] Closed 07/19/2020 07/19/2021 1 1 ACTIVE METALLURGIST Encounter Details Date Type Department Care Team Description 07/19/2020 Orders Only [facility] Julian Phipps Other [facility] MD Darlel scoliosis, thoracolumbar [address] (Primary Dx) [address] [facility] [address] [place], [place] [address] Social History Tobacco Use Types Packs/Day Years Used Date Smoking Tobacco: Never Smokeless Tobacco: Never Sex Assigned at Date Recorded Female 12/02/2020 1:42 PM CDT COVID-19 Exposure Response Date Recorded In the last month, have you been in contact with No / Unsure 07/05/2020 8:01 AM EXTRACTIVE METALLURGIST someone who was confirmed or suspected to have Coronavirus / COVID-19? documented as of this encounter Plan of Treatment Not on filedocumented as of this encounter Procedures Procedure Name Priority Date/Time Associated Diagnosis Comme nts XR SPINE COMPLETE Routine 07/21/2020 2:31 PM Other secondary R esults for this SCOLIOSIS 2 VIEWS EXTRACTIVE METALLURGIST scoliosis, procedure are in thoracolumbar region the res ults section. XR SIX FOOT STANDING Routine 07/21/2020 2:31 PM Other secondar y Results for this EXTREMITIES EXTRACTIVE METALLURGIST scoliosis, procedure are i n thoracolumbar region the res ults section. 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 1. Postsurgical changes of segmental spi nal fusion instrumentation T3-L4. Hardware appears intact without e vidence of complications. 2. Moderate right convexed curvature of the thoracolumbar/lumbar spine. 3. Positive global coronal imbalance. No global sagittal imbalance. 4. Weight bearing axis as detailed above . STEFANIE ABREU, Narrative 07/21/2020 5:48 PM EXTRACTIVE METALLURGIST Exam: Full body radiographs using EOS History: [...] L1/L2. Positive global coronal imbalance. Sagittal Vertical [place] (A vertical line drawn from the center [...] L1/L2. Positive global coronal imbalance. 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 1. Postsurgical changes of segmental spi nal fusion instrumentation T3-L4. Hardware appears intact without e vidence of complications. 2. Moderate right convexed curvature of the thoracolumbar/lumbar spine. 3. Positive global coronal imbalance. No global sagittal imbalance. 4. Weight bearing axis as detailed above . STEFANIE ABREU, DO Narrative 07/21/2020 5:48 PM EXTRACTIVE METALLURGIST Exam: Full body radiographs using EOS History: [...] L1/L2. Positive global coronal imbalance. Sagittal Vertical [place] (A vertical line drawn from the center [...] L1/L2. Positive global coronal imbalance. Sagittal Vertical [place] (A vertical line drawn from the center [...] Primary documented in this encounter Care Teams Openstack Developer Relationship Specialty Start Date End Date [facility], [facility] PCP - General 10/15/17 08/08/[address] [address] Julian Spencer MD MD Orthopedics 03/08/[address] [place], [place] [phone] Mariposa Atwood, Assigned PCP 04/29/2005/25 [facility] [place], [place] [phone] Julian Spencer MD Assigned Musculoskeletal 05/27/[address] Provider [place], [place] [phone] Eugenio Finney, Assigned Pediatric 06/19/20 06/03/21 Specialist Provider [address] [facility] [place], [place] [address] documented as of this encounter
--- OUTSIDE RECORDS SUMMARY | 2022-07-02 21:51 | XMS_ITS | Encounter Summary ---
:2001 Author Organization [place] Address [address] [place] [address] Care Team Providers Name Role Phone [facility], [facility] Primary Care Provide r Julian Spencer MD Unavailable Marpiosa Atwood MD Unavailable [phone] Julian Spencer MD Unavailable Eugenio Finney MD Unavailable [phone] Encounter Details Date Type Department Care [...] with No / Unsure 08/03/2020 1:56 PM MAPPING TECHNICIAN someone who was confirmed or suspected to have Coronavirus / COVID-19? documented as of this encounter Plan of Treatment Not on filedocumented as of this encounter Visit Diagnoses Not on filedocumented in this encounter Care Teams Associate Programmer Relationship Specialty Start Date End Date [facility] PCP - General 10/15/17 08/08/[address] [address] Julian Spencer MD MD Orthopedics 03/08/[address] [place], [place] [phone] Mariposa Atwood, Assigned PCP 04/29/2005/25 [facility] S [place], [place] [phone] Julian Spencer MD Assigned Musculoskeletal 05/27/[address] Provider [place], [place] [phone] Eugenio Finney, Assigned Pediatric 06/19/20 06/03/21 Specialist Provider [address] [facility] [address] [place], [place] [phone] documented as of this encounter
--- OUTSIDE RECORDS SUMMARY | 2022-07-02 21:52 | XMS_ITS | Encounter Summary ---
:2001 Author Organization [place] Address [address] [place] [address] Care Team Providers Name Role Phone Unavailable Primary Care Provider Unavailable Encounter Details Date Type Department Care Team Description 01/03/2009 Office Visit-[facility] Jerad Hooks MD [facility] [address] [facility] [address] [facility] 120 [place] [address] 2512 [facility], [address] [place] [address] [place] [address] Social History Tobacco Use Types Packs/Day Years Used Date Smoking Tobacco: Never Assessed Sex Assigned at Date Recorded Female 12/02/2020 1:42 PM CDT documented as of this encounter Progress Notes Jerad Hooks - 01/03/2009 12:50 PM CDT Fabric Coating Supervisor: Jerad Hooks Status: Final - Signature Encounter: 03 Jan 2009 Type: Peds GI Letter Division of Pediatric Gastroenterology, Hepatology & Nutrition Department of Pediatrics [place] Mail Code [address] [place] [address] Office: [phone] [facility] Fourth Floor, Clinic [address] [place] [address] January 04, 2009 David Gibbs MD [facility] [address] [place] [address]., [address] [place] [address] Urbano Price MD [facility]ocr[facility] [address] [place] [address] RE: Dakota Casiano : 2000 TAWNYA: 01/03/2009 [...] at the Pediatric Nephrology office at the [facility] to evaluate VU reflux. I am [...] by:Jerad Hooks M.D. Jan 13 2009 9:06PM SUPERVISOR FISHING Electronically signed by:Urbano Price M.D. Feb 26 2009 10:21AM SUPERVISOR FISHING documented in this encounter Plan of Treatment Not on filedocumented as of this encounter Visit Diagnoses Not on filedocumented in this encounter
--- OUTSIDE RECORDS SUMMARY | 2022-07-02 21:52 | XMS_ITS | Encounter Summary ---
:2001 Author Organization [place] Address [address] [place] [address] Care Team Providers Name Role Phone System, Provider Not In Primary Care Provider Unavailable Encounter Details Date Type Department Care Team Description 06/20/2011 Hospital Encounter [facility] Milo Najera MD [facility] NO INFO FOUND [address] [facility] [place] [address] [place] [address] Social History Tobacco Use Types Packs/Day Years Used Date Smoking Tobacco: Never Assessed Sex Assigned at Date Recorded Female 12/02/2020 1:42 PM CDT documented as of this encounter Plan of Treatment Not on filedocumented as of this encounter Procedures Procedure Name Priority Date/Time Associated Comments Diagnosis CBC WITH PLATELETS & Routine 06/20/2011 4:20 Resu lts for this DIFFERENTIAL PM SMALL PRODUCTS II ASSEMBLER procedure are i n the results section. TISSUE TRANSGLUTAMINASE Routine 06/20/2011 4:20 R esults for this JOSUE IGA AND IGG PM SMALL PRODUCTS II ASSEMBLER procedure ar e in the results section. IGA Routine 06/20/2011 4:20 Results for this PM SMALL PRODUCTS II ASSEMBLER procedure are i n the results section. ERYTHROCYTE Routine 06/20/2011 4:20 Results for this SEDIMENTATION RATE AUTO PM SMALL PRODUCTS II ASSEMBLER proc edure are in the results section. ALT Routine 06/20/2011 4:20 Results for this PM SMALL PRODUCTS II ASSEMBLER procedure are i n the results section. ALBUMIN LEVEL Routine 06/20/2011 4:20 Results for this PM SMALL PRODUCTS II ASSEMBLER procedure are i n the results section. documented in this encounter Results Erythrocyte sedimentation rate auto (06/20/2011 4:20 PM SMALL PRODUCTS II ASSEMBLER) P athologist Signature Sed Rate 3 0 - 15 mm/h [facility] Specimen Anatomical Collection Method Collection Time Receive d Time (Source) Location / / Volume Laterality 06/20/2011 4:20 PM 1 4:32 SMALL PRODUCTS II ASSEMBLER PM SMALL PRODUCTS II ASSEMBLER Axel Najera MD LAB - BLOOD ORDERABLES Performing Organization Address City/State/ZIP Code Phon e Number [place] [address] [address] [place] [address] [facility] Tissue transglutaminase josue IgA and IgG (06/20/2011 4:20 PM SMALL PRODUCTS II ASSEMBLER) [facility] Method Time Signature Tissue <1.0 U/mL [facility] Transglutaminase Interpretation: ??Negative [facility]ITY Antibody IgA CAMPUS LABS Tissue 1.7 U/mL [facility] Transglutaminase Josue [facility]IT Y IgG CAMPUS LABS Comment: Interpretation: Negative Specimen Anatomical Collection Method Collection Time Receive d Time (Source) Location / / Volume Laterality 06/20/2011 4:20 PM 1 4:32 SMALL PRODUCTS II ASSEMBLER PM SMALL PRODUCTS II ASSEMBLER Axel Najera MD LAB - BLOOD ORDERABLES Performing Organization Address City/State/ZIP Code Phon e Number [facility] [address] LABS IgA (06/20/2011 4:20 PM SMALL PRODUCTS II ASSEMBLER) athologist Signature IGA 128 45 - 235 [facility] mg/dL CAMPUS LABS Specimen Anatomical Collection Method Collection Time Receive d Time (Source) Location / / Volume Laterality 06/20/2011 4:20 PM 1 4:32 SMALL PRODUCTS II ASSEMBLER PM SMALL PRODUCTS II ASSEMBLER Axel Najera MD LAB - BLOOD ORDERABLES Performing Organization Address City/State/ZIP Code Phon e Number [facility] [address] LABS CBC with platelets differential (06/20/2011 4:20 PM SMALL PRODUCTS II ASSEMBLER) [facility] Method Time Signature WBC 7.7 5.0 - [facility] 14.5 [facility] 10e9/L [facility] RBC Count 4.32 3.7 - 5.3 [facility] 10e12/L [facility] Hemoglobin 12.8 10.5 - [facility] 14.0 g/dL [facility] Hematocrit 37.3 31.5 - [facility] 43.0 % [facility] MCV 86 70 - 100 GUILD fl [facility] MCH 29.6 26.5 - [facility] 33.0 pg [facility] MCHC 34.3 31.5 - GUILD 36.5 g/dL [facility] RDW 12.4 10.0 - [facility] 15.0 % [facility] Platelet Count 261 150 - [address] [place] [address] LAB Diff Method Automated [facility] % Neutrophils 42.9 32 - 54 % [facility] % Lymphocytes 46.4 27 - 57 % [facility] % Monocytes 9.1 0 - 10 % [facility] % Eosinophils 1.2 0 - 6 % [facility] % Basophils 0.4 0 - 1 % [facility] % Immature 0.0 0 - 0.4 % GUILD Granulocytes [facility] Absolute 3.3 1.3 - 8.1 GUILD Neutrophil 10e9/[facility] Absolute 3.6 1.1 - 8.6 GUILD Lymphocytes [address] LAB Absolute 0.7 0.0 - 1.1 GUILD Monocytes [address] LAB Absolute 0.1 0.0 - 0.7 GUILD Eosinophils [address] LAB Absolute 0.0 0.0 - 0.2 GUILD Basophils [address] [place] [address] LAB Abs Immature 0.0 0 - 0.03 GUILD Granulocytes [address] [place] [address] LAB Specimen Anatomical Collection Method Collection Time Receive d Time (Source) Location / / Volume Laterality 06/20/2011 4:20 PM 1 4:32 SMALL PRODUCTS II ASSEMBLER PM SMALL PRODUCTS II ASSEMBLER Axel Najera MD LAB - BLOOD ORDERABLES Performing Organization Address City/State/ZIP Code Phon e Number M [facility] [address] [place] [address] [facility] ALT (06/20/2011 4:20 PM SMALL PRODUCTS II ASSEMBLER) athologist Signature ALT 26 0 - 50 U/L [facility] Specimen Anatomical Collection Method Collection Time Receive d Time (Source) Location / / Volume Laterality 06/20/2011 4:20 PM 1 4:32 SMALL PRODUCTS II ASSEMBLER PM SMALL PRODUCTS II ASSEMBLER Axel Najera MD LAB - BLOOD ORDERABLES Performing Organization Address City/State/ZIP Code Phon e Number M [facility] [address] [place], [place] [address] [facility] Albumin level (06/20/2011 4:20 PM SMALL PRODUCTS II ASSEMBLER) athologist Signature Albumin 4.5 3.9 - 5.1 [facility] g/dL [facility] Specimen Anatomical Collection Method Collection Time Receive d Time (Source) Location / / Volume Laterality 06/20/2011 4:20 PM 1 4:32 SMALL PRODUCTS II ASSEMBLER PM SMALL PRODUCTS II ASSEMBLER Axel Najera MD LAB - BLOOD ORDERABLES Performing Organization Address City/[facility]/ZIP Code Phon e Number [place] [facility] [address] [place] [place], [place] [address] [facility] documented in this encounter Visit Diagnoses Not on filedocumented in this encounter Care Teams Business Office Assistant Relationship Specialty Start Date End Date System, Provider Not In PCP - General 06/20/11 409/18 documented as of this encounter
--- OUTSIDE RECORDS SUMMARY | 2022-07-02 21:52 | XMS_ITS | Encounter Summary ---
:2001 Author Organization [place] Address [address] [place] [address] Care Team Providers Name Role Phone Clinic, [facility] Primary Care Provide r Julian Spencer MD Unavailable Mariposa Atwood MD Unavailable Encounter Details Date Type Department Care Team Description 05/10/2020 Telephone [facility] Explorer Perez Finney, [facility] [place] [address] [place] [address] [facility], [address] [place] [address] [place] [phone] Social History Tobacco Use Types Packs/Day Years [...] on filedocumented in this encounter Care Teams Pony Roll Finisher Relationship Specialty Start Date End Date Clinic, [facility] PCP - General 10/15/17 08/08/201999 [place] [address] Julian Spencer MD MD Orthopedics 03/08/20 [facility] [place] [phone] [place], [place] [phone] Mariposa Atwood MD Assigned PCP 04/29/20 11/12/20 [facility] [place], [place] [phone] documented as of this encounter
--- OUTSIDE RECORDS SUMMARY | 2022-07-02 21:52 | XMS_ITS | Encounter Summary ---
:2001 Author Organization [place] Address [address] [place] [address] Care Team Providers Name Role Phone Unavailable Primary Care Provider Unavailable Encounter Details Date Type Department Care Team Description 01/03/2009 Office Visit-[facility] INTERFACE [facility] DEPT Dinah Disla [address] IN GASTERENTEROL OGY [address] [place] [address] (Wo rk) Social History Tobacco Use Types Packs/Day Years Used Date Smoking Tobacco: Never Assessed Sex Assigned at Date Recorded Female 12/02/2020 1:42 PM CDT documented as of this encounter Progress Notes [address]ah [address] - 01/03/2009 12:50 PM CDT Economics Instructor: Dinah Disla Status: Final - Signature Encounter: 03 Jan 2009 Type: Project Geophysicist Visit Nutrition Initial Assessment A: Met with [...] signed by:Dinah Disla Jan 03 2009 3:15PM SILK SCREEN PRINTING RACKER documented in this encounter Plan of Treatment Not on filedocumented as of this encounter Visit Diagnoses Not on filedocumented in this encounter
--- OUTSIDE RECORDS SUMMARY | 2022-07-02 21:52 | XMS_ITS | Encounter Summary ---
:2001 Author Organization [place] Address [address] [place] [address] Care Team Providers Name Role Phone Unavailable Primary Care Provider Unavailable Encounter Details Date Type Department Care Team Description 01/28/2009 Results Only [facility] Jerad Hooks MD [facility] GI Results [address] [facility] [address] [place] [address] (Wo rk) Social History Tobacco [...] comparison. Fluoroscopy time: 0.5 minutes FINDINGS: The proposal review analyst film demonstrates a nonobstructive bowel gas pattern. There is no abnormal mass or ca lcification. Stool is seen in throughout the colon. No bony abnormalit y is identified. ??After sterile bladder catheterization with an 8 Tamazight feeding tube, a voiding cystourethrogram was performed [...]
--- OUTSIDE RECORDS SUMMARY | 2022-07-02 21:52 | XMS_ITS | Encounter Summary ---
:2001 Author Organization [place] Address [address] [place] [address] Care Team Providers Name Role Phone System, Provider Not In Primary Care Provider Unavailable Encounter Details Date Type Department Care Team Description 08/14/2012 Hospital Encounter [facility] Mynor Humphries, [facility] MD CARLENE [address] [facility] [place] [address] [place] [address] [place], [place] [phone] (Wo rk) Social History Tobacco Use [...] MD, MD - 08/19/2012 9:14 PM CST NG MACHINE OPERATOR documented in this encounter Plan of Treatment Not on filedocumented as of this encounter Procedures Procedure Name Priority Date/Time Associated Comments Diagnosis FECAL FAT Routine 08/14/2012 5:46 PM Results f or this QUANTITATIVE TIMED OILING MACHINE OPERATOR procedure are in the results section. documented in this encounter Results Fat stool quantitative (08/14/2012 5:46 PM OILING MACHINE OPERATOR) Component Value Ref Test Analysis Performed At [facility] Range Method Time Signature Fecal Fat SEE NOTE 08/19/2012 12:07 PM F [place] Quantitative (Note) [facility] ? [place] ?Expected Test ? Result [...] ?? Test Performed by: ?? [facility] ?? [address] [phone] ?? Corrugator Operator Helper: Jere Canales III, M.D. Specimen Anatomical Collection Method Collection Time Receive d Time (Source) Location / / Volume Laterality 08/14/2012 5:46 PM 3 OILING MACHINE OPERATOR 12:12 PM OILING MACHINE OPERATOR Mynor Humphries MD, MD LAB - STOOLS ORDERABLES Performing Organization Address City/State/ZIP Code Phon e Number M [facility] [address] [place], [place] [address] [facility] documented in this encounter Visit Diagnoses Not on filedocumented in this encounter Care Teams Rotary Adjuster Relationship Specialty Start Date End Date System, Provider Not In PCP - General 06/20/11/09/18 documented as of this encounter
--- OUTSIDE RECORDS SUMMARY | 2022-07-02 21:52 | XMS_ITS | Encounter Summary ---
:2001 Author Organization [place] Address [address] [place] [address] Care Team Providers Name Role Phone Clinic, [facility] Primary Care Provide r Julian Spencer MD Unavailable Mariposa Atwood MD Unavailable [phone] Reason for Visit Reason Onset Date Comments *-*INCOMING RECORDS*-* 05/05/2020 Encounter Details Date Type Department Care Team Description 05/05/2020 PRE VISIT Health Orthopaedic Julian Spencer *-*INCO BARRETT RECORDS*-* Clinic MD Darell [address] [place] [address] [address] [place] [address] [phone] Social History Tobacco Use Types Packs/Day Years Used Date Smoking Tobacco: Never Assessed Sex Assigned at Date Recorded Female 12/02/2020 1:42 PM CDT documented as of this encounter Miscellaneous Notes Telephone Encounter - Lynnette Boone - 03/16/2020 12:12 PM CDT DIAGNOSIS: Scoliosis, referral Dr. Mireille Muro at [facility], records there and at [place] (MRI) and Marybel lau, appt per pt APPOINTMENT DATE: 05.05.20 NOTES STATUS DETAILS OFFICE NOTE from referring provider Care Everywhere 10.14.19 Cbua Muro 01.27.20 08.13.19 OFFICE NOTE from other specialist Care Everywhere 2.. [place] Deleon DISCHARGE SUMMARY from hospital Care Everywhere 09.16.19 [place] DISCHARGE REPORT from the ER Care Everywhere 10.. Ling, OPERATIVE REPORT Care Everywhere .. [place] MEDICATION LIST Internal EMG (for Spine) N/A IMPLANT RECORD/STICKER N/A LABS CBC/DIFF Care Everywhere CULTURES N/A INJECTIONS DONE IN RADIOLOGY N/A MRI In process 08.13.19 spine, [place] CT SCAN In process 01.27.20 Thoracic and lumber spine, [place] 1. lumbar 1.20.20 thoracic 1.9.20 spine thoracolumbar XRAYS (IMAGES & REPORTS) In process 08.13.19 spine, [place] 1..20 spine, [place] 10..19 thoracic, 10.8.19 cervical, [place] TUMOR PATHOLOGY Slides & report N/A Action 03.16.20 MJ Action Taken Requested images from [place] . Requested [facility] recs and images from [place]. documented in this encounter Plan of Treatment Not on filedocumented as of this encounter Visit Diagnoses Not on filedocumented in this encounter Care Teams Patient Manager Relationship Specialty Start Date End Date Clinic, [facility] PCP - General 10/15/17 08/08/201999 [place] [address] Julian Spencer MD MD Orthopedics 03/08/20 [facility] [address] [place], [place] [address] Mariposa Atwood MD Assigned PCP 04/29/20 11/12/20 [facility] [place], [place] [phone] documented as of this encounter
--- OUTSIDE RECORDS SUMMARY | 2022-07-02 21:52 | XMS_ITS | Encounter Summary ---
:2001 Author Organization [place] Address [address] [place] [address]. [place] [address] Care Team Providers Name Role Phone Clinic, [facility] Primary Care Provide r Julian Spencer MD Unavailable Mariposa Atwood MD Unavailable Reason for Visit Reason Onset Date Comments Appointment 05/13/2020 Encounter Details Date Type Department Care Team Description 05/13/2020 Telephone [facility] Explorer Perez Finney, Appointment [facility] MD [address] [place] [address] Explorer [facility], [address] [place] [address] [place] [address] [address] [address] [phone] Social History Tobacco Use Types Packs/Day Years [...] on filedocumented in this encounter Care Teams Crop Production Advisor Relationship Specialty Start Date End Date Clinic, [facility] PCP - General 10/15/17 08/08/201999 [place] [address] Julian Spencer MD MD Orthopedics 03/08/20 [facility] [address] [place], [place] [address] Mariposa Atwood MD Assigned PCP 04/29/20 11/12/20 [facility] [place], [place] [address] documented as of this encounter
--- OUTSIDE RECORDS SUMMARY | 2022-07-02 21:52 | XMS_ITS | Encounter Summary ---
:2001 Author Organization [place] Address [address] [place] [address] Care Team Providers Name Role Phone System, Provider Not In Primary Care Provider Unavailable Encounter Details Date Type Department Care Team Description 05/21/2012 Hospital Encounter [facility] Mynor Humphries, Ashish Morales MD, [address] [facility] GASTERENTEROLOGY [address] [address] [place], [place] [phone] (Wo rk) Social History Tobacco Use [...] Fat stool qualitative (05/21/2012 7:30 AM CDT) [facility] Time Signature Neutral Fat Increased [place] Fecal Reference range: Normal [facility] Split Fat Increased [place] Fecal Reference range: Normal [facility] (Note) HOSPITAL LAB INTERPRETIVE INFORMATION: Fecal Fat Qualitative Neutral fats include the monoglycerides, diglycerides, and triglycerides while split fats are the free fatty acids that are liberated from them. Impaired synthesis or secretion of pancreatic enzymes or bile may cause an increase in neutral fats while an increase in split fats suggests impaired absorption of nutrients. Performed by [employer], [address] [place] [address] [employer], Polly Gilman MD, Lab. Director Specimen Anatomical Collection Method Collection Time Receive d Time (Source) Location / / Volume Laterality 05/21/2012 7:30 AM 2 9:25 CDT AM CDT Mynor Humphries MD, MD LAB - STOOLS ORDERABLES Performing Organization Address City/State/ZIP Code Phon e Number [facility] [address] [phone] [facility] Reducing substances stool (05/21/2012 7:30 AM CDT) [facility] Method Time Signature Ph Stool Formed 7.0 - 7.5 [facility] stool: pH [place] [facility] Unable to perform test Glucose Stool Negative NEG mg/dL [facility] Reducing Sub Negative 0 - 249 [facility] Stool mg/dL [place] [facility] Specimen Anatomical Collection Method Collection Time Receive d Time (Source) Location / / Volume Laterality 05/21/2012 7:30 AM 2 9:25 CDT AM CDT Mynor Humphries MD, MD LAB - STOOLS ORDERABLES Performing Organization Address City/State/ZIP Code Phon e Number [facility] [address] [place] [address] [facility] Alpha 1 antitrypsin stool (05/21/2012 7:30 AM CDT) P athologist Signature Fsoll-7-Sdxirhi 0.25 [facility] LAB Comment: Reference range: 0.00 to 0.62 Unit: mg/g (Note) Performed by [employer], [facility] [place] [address] [employer], Polly Gilman MD, Lab. Director Specimen Anatomical Collection Method Collection Time Receive d Time (Source) Location / / Volume Laterality 05/21/2012 7:30 AM 2 9:25 CDT AM CDT Mynor Humphries MD, MD LAB - STOOLS ORDERABLES Performing Organization Address City/State/ZIP Code Phon e Number [place] [address] [address] [address] [facility] Pancreatic elastase 1 (05/21/2012 7:30 AM CDT) [facility] gist Method Time Signature Lab Scanned PANCREATIC MISYS Result ELASTASE 1-Scanned Specimen Anatomical Collection Method Collection Time Receive d Time (Source) Location / / Volume Laterality 05/21/2012 7:30 AM 2 9:25 CDT AM CDT Mynor Humphries MD, MD LAB - STOOLS ORDERABLES Performing Organization Address City/[facility]/ZIP [facility] Phon e Number MISYS documented in this encounter Visit Diagnoses Not on filedocumented in this encounter Care Teams Billing Services Manager Relationship Specialty Start Date End Date System, Provider Not In PCP - General 06/20/1111/04 documented as of this encounter
--- OUTSIDE RECORDS SUMMARY | 2022-07-02 21:52 | XMS_ITS | Encounter Summary ---
:2001 Author Organization [place] Address [address] [place] [address] Care Team Providers Name Role Phone System, Provider Not In Primary Care Provider Unavailable System, Provider Not In Primary Care Provider Unavailable Encounter Details Date Type Department Care Team Description 10/25/2013 Orders Only [facility] Mynor Humphries Diarr hea (Primary Dx) [facility] MD CARLENE [address] [facility] GASTERENTEROLOGY [address] [address] [place], [place] [phone] (Wo rk) Social History Tobacco Use [...] 1 antitrypsin stool (11/25/2013 2:37 PM CDT) [facility] Time Signature Zlwvt-3-Whsku <0.12 VERNAL ryp Stool Reference range: 0.00 to 0.62 [facility] Unit: mg/g HOSPITAL LAB (Note) Performed by [employer], [address] [place] [address] www[employer], Anuel Carreon MD, Lab. Director Specimen Anatomical Collection Method Collection Time Receive d Time (Source) Location / / Volume Laterality 11/25/2013 2:37 PM 4 7:12 CDT PM CDT Mynor Humphries MD, MD LAB - STOOLS ORDERABLES Performing Organization Address City/[facility]/ZIP [facility] Phon e Number M [facility] [address] [place], [place] 55[address] [facility] Fecal leukocyte (11/25/2013 2:37 PM CDT) [facility] Method Time Signature Specimen Feces VERNAL Description [facility] Fecal Leucocytes No [facility] Micro Report FINAL VERNAL Status 11/25/2013 [facility] Specimen Anatomical Collection Method Collection Time Receive d Time (Source) Location / / Volume Laterality 11/25/2013 2:37 PM 4 7:12 CDT PM CDT Mynor Humphries MD, MD LAB - MICRO GENERAL ORDERABL ES Performing Organization Address City/[facility]/ZIP Code Phon e Number [facility] [address] [place], [place] [address] [facility] (ABNORMAL) Occult blood stool 1-3 spec (11/25/2013 2:37 PM CDT) Patholo gist Method Time Signature Occult Blood Negative NEG [place]NAL Slide 1 [facility] Slide [address] [facility] Occult Blood Specimen not NEG VERNAL Slide 2 received (A) [facility] Slide 2 Date Specimen not VERNAL received [facility] Occult Blood Specimen not NEG VERNAL Slide 3 received (A) [facility] Slide 3 Date Specimen not [facility] received [facility] Specimen Anatomical Collection Method Collection Time Receive d Time (Source) Location / / Volume Laterality Stool specimen 11/25/2013 2:37 PM 014 7:10 (specimen) CDT PM CDT Mynor Humphries MD, LAB - STOOLS ORDERABLES Performing Organization Address City/State/ZIP Code Phon e Number M [facility] [address] [place], [place] [address] [facility] documented in this encounter Visit Diagnoses Diagnosis Diarrhea - Primary documented in this encounter Care Teams Hospice Clinical Manager Relationship Specialty Start Date End Date System, Provider Not In PCP - General 06/20/1111/04 System, Provider Not In PCP - General Clinic 11/25/13 04/04/17 documented as of this encounter
--- OUTSIDE RECORDS SUMMARY | 2022-07-02 21:52 | XMS_ITS | Encounter Summary ---
:2001 Author Organization [place] Address [address] [place] [address] Care Team Providers Name Role Phone Unavailable Primary Care Provider Unavailable Encounter Details Date Type Department Care Team Description 01/21/2009 Historic Results [facility] Jerad Hooks MD [facility] [address] [facility] [address] [place] [address] [address] [place] [address] (Wo rk) Social History Tobacco [...] 17.6 MISYS uM/min/gr Prot Comment: Assayed at [employer] [place] [address] (Note) The intestinal biopsy from this patient had normal disaccharidase activities. CORRECTED ON 01/26 AT 0839: PREVIOUSLY R EPORTED 10.6 Assayed at [employer] [place], [place] [address] Sucrase 60.7 29.1 - [...]
--- OUTSIDE RECORDS SUMMARY | 2022-07-02 21:52 | XMS_ITS | Encounter Summary ---
:2001 Author Organization [place] Address [address] [place] [address] Care Team Providers Name Role Phone [facility] Primary Care Provide r Julian Spencer MD Unavailable Mariposa Atwood MD Unavailable [phone] Encounter Details Date Type Department Care Team [...] on filedocumented in this encounter Care Teams Regulatory Internship Relationship Specialty Start Date End Date [facility] PCP - General 10/15/17 08/08/201999 [place] [address] Julian Spencer MD MD Orthopedics 03/08/[address] [place] [address] Mariposa Atwood MD Assigned PCP 04/29/20 11/12/20 [address]32 [place] [address] documented as of this encounter
--- OUTSIDE RECORDS SUMMARY | 2022-07-02 21:52 | XMS_ITS | Encounter Summary ---
:2001 Author Organization [place] Address [address] [place] [address] Care Team Providers Name Role Phone Unavailable Primary Care Provider Unavailable Encounter Details Date Type Department Care Team Description [facility]/09/2008 [facility] Specialists [facility] [address] [address] (Wo rk) Social History Tobacco [...] PANCREATIC ELASTASE 1 (12/09/2008 7:00 PM CDT) [facility] gist Method Time Signature Lab Scanned [...]
--- OUTSIDE RECORDS SUMMARY | 2022-07-02 21:52 | XMS_ITS | Encounter Summary ---
:2001 Author Organization [place] Address [address] [place] [address] Care Team Providers Name Role Phone Clinic, [facility] Primary Care Provide r Reason for Visit Reason Comments Neck Pain Encounter Details Date Type Department Care Team Description 10/15/2017 [facility], [facility] Emergency Dep t EMERGENCY PHYSICIANS encounter [address] [place], [place] [address] [place] [place] [address] [place] [address] [phone] (Wo rk) Social History Tobacco Use Types [...] ice and heat. ?? You may use jiee-eqr-ndrvyov pain medicine to control pain, unless another [...] both arms Date Last Reviewed: 06/23/2015 ?? [phone] [employer]. [address] [place] [address], [place] [address]. All rights reserved. This information is not [...] intact without need for intervention. No medication COVERED BUCKLE ASSEMBLER. Carlitos Tierney MD - 10/15/2017 5:12 PM [...] statements to me. Jose Manuel Enriquez 10/15/2017 [facility] EMERGENCY DEPARTMENT Carlitos Tierney MD 10/16/17 2101 documented in this encounter Plan of Treatment Not on filedocumented as of this encounter Visit Diagnoses Diagnosis Neck sprain, initial encounter documented in this encounter Care Teams Route Cdl Driver Relationship Specialty Start Date End Date Clinic, [facility] PCP - General 10/15/17 08/08/201999 [place] [address] documented as of this encounter
--- OUTSIDE RECORDS SUMMARY | 2022-07-02 21:52 | XMS_ITS | Encounter Summary ---
:2001 Author Organization [place] Address [facility] [place] [address] Care Team Providers Name Role Phone Unavailable Primary Care Provider Unavailable Encounter Details Date Type Department Care Team Description 01/21/2009 Historical Results [facility] Champ Cruz MD [facility] GI [address] [facility] [address] [place] [address] [address] [place] [address] (Wo rk) Social History Tobacco Use Types Packs/Day Years Used Date Smoking Tobacco: Never Assessed Sex Assigned at Date Recorded Female 12/02/2020 1:42 PM CDT documented as of this encounter Plan of Treatment Not on filedocumented as of this encounter Procedures Procedure Name Priority Date/Time Associated Diagnosis Comme [facility] HISTOPATHOLOGY Routine 01/21/2009 11:52 AM Result s for this CDT procedure are i n the results section . documented in this encounter Results Histopathology (01/21/2009 11:52 AM CDT) Component Value Ref Test Analysis Performed At [facility] Range Method Time Signature Copath Report CASE: [id number] ^ COPATH Patient Name: DAKOTA VASQUEZ MR#: [id number] Specimen #: [id number] Collected: 01/21/2009 Received: 01/21/2009 Reported: 01/24/2009 18:14 [...] Electronically signed out by: Ignacio Gamble M.D., [facility] CLINICAL HISTORY: 8-year-old female. GROSS: Five specimens [...] MICROSCOPIC: Performed. Greg 01/24/2009 TESTING LAB LOCATION: [facility], [address] ?? [phone] COLLECTION SITE: Client: [facility] [place] Location: U (B) Specimen Anatomical Collection Method [...]
--- OUTSIDE RECORDS SUMMARY | 2022-07-02 21:52 | XMS_ITS | Encounter Summary ---
:2001 Author Organization [place] Address [address] [place] [address] Care Team Providers Name Role Phone Unavailable Primary Care Provider Unavailable Encounter Details Date Type Department Care Team Description 02/03/2009 Office Visit-[facility] Jerad Hooks MD [facility] GI Specialty Clinic [address] [facility] [address] [facility] [address] [place] [address] [address] [place] [address] Social History Tobacco Use Types Packs/Day Years Used Date Smoking Tobacco: Never Assessed Sex Assigned at Date Recorded Female 12/02/2020 1:42 PM CDT documented as of this encounter Progress Notes Jerad Hooks - 02/03/2009 10:04 AM CDT Fence Erector: Jerad Hooks Status: Final - Signature Encounter: [...] mom attempted to persuade both Dr. Schwarz marketing secretary and Dr. Gibbs that she did, and finally a report of Dakota undergoing chemotherapy [facility] ([email or web address]). In addition mom still suggests that Dakota isfollowed by Dr. Gibbs, but in fact she transferred Dakota's [facility] to [facility] about a[facility] ago, and at some point saw both Dr. Gibbs and at [facility] at the same time. Dr. Gibbs have reported these incidents to the [facility] authorities, however he is not aware about any actions so far. I am plannin gto repoirt this incident to child protection service at the to help investigation. t8 Electronically signed by:Jerad Hooks M.D. Feb 03 2009 10:12AM AUTO GARAGE MECHANIC Electronically signed by:Maikel MENDOZA MD Feb 03 2009 2:14PM AUTO GARAGE MECHANIC Review documented in this encounter Plan of Treatment Not on filedocumented as of this encounter Visit Diagnoses Not on filedocumented in this encounter
--- OUTSIDE RECORDS SUMMARY | 2022-07-02 21:52 | XMS_ITS | Encounter Summary ---
:2001 Author Organization [place] Address [address] [place] [address] Care Team Providers Name Role Phone Unavailable Primary Care Provider Unavailable Encounter Details Date Type Department Care Team Description 12/01/2008 Office Visit-[facility] INTERFACE [facility] DEPT Provider, [facility] Nurs e Social History Tobacco Use Types Packs/Day Years Used Date Smoking Tobacco: Never Assessed Sex Assigned at Date Recorded Female 12/02/2020 1:42 PM CDT documented as of this encounter Progress Notes Provider, [facility] Nurse - 12/01/2008 9:30 AM CDT New Car Make Ready Worker: Sarah Duggan Status: Final - Signature Encounter: [...] signed by:Sarah Duggan Dec 01 2008 11:26AM UNDERGROUND DRILL OPERATOR Provider, [facility] Nurse - 12/01/2008 9:30 AM CDT New Car Make Ready Worker: Ana Fitzpatrick Status: Final Encounter: 01 Dec 2008 Type: Rooming Note Informant Parent is informant unless otherwise noted. Reason For Visit tummy pain] Do you have any other appointments, tests or procedures within the [facility] system for this same day? No. Pain [...] Teaching not applicable. Signature Electronically Signed By: Ana Fitzpatrick R.N.; 12/01/2008 9:25 AM UNDERGROUND DRILL OPERATOR. documented in this encounter Plan of Treatment Not on filedocumented as of this encounter Visit Diagnoses Not on filedocumented in this encounter
--- OUTSIDE RECORDS SUMMARY | 2022-07-02 21:52 | XMS_ITS | Encounter Summary ---
:2001 Author Organization [place] Address [address] [place] [address] Care Team Providers Name Role Phone Unavailable Primary Care Provider Unavailable Encounter Details Date Type Department Care Team Description 01/28/2009 Office Visit-[facility] INTERFACE [facility] DEPT Provider, [facility] Nurs e Social History Tobacco Use Types Packs/Day Years Used Date Smoking Tobacco: Never Assessed Sex Assigned at Date Recorded Female 12/02/2020 1:42 PM CDT documented as of this encounter Progress Notes Provider, [facility] Nurse - 01/28/2009 7:48 AM CDT Ski Molder: Traci Bhakta Status: Final - Signature Encounter: 28 Jan 2009 Type: Nurse Note Talked with pt's mom and let her know results of EGD/colon, US, and cystogram were normal. F/u with Dr. Hooks in 2 weeks. She did not have any questions currently but encouraged to call if any arise. Electronically signed by:Traci Bhakta RN Jan 28 2009 11:06AM TITLE SEARCHER documented in this encounter Plan of Treatment Not on filedocumented as of this encounter Visit Diagnoses Not on filedocumented in this encounter
--- OUTSIDE RECORDS SUMMARY | 2022-07-02 21:52 | XMS_ITS | Encounter Summary ---
:2001 Author Organization [place] Address [facility] [place] [address] Care Team Providers Name Role Phone Unavailable Primary Care Provider Unavailable Encounter Details Date Type Department Care Team Description 12/09/2008 Historic Results [facility] Jerad Hooks MD [facility] GI [address] [facility] [address] [place] [address] [address] [place] [address] (Wo rk) Social History Tobacco [...] LAB - STOOLS ORDERABLES Performing Organization Address City/[facility]/ZIP Code Phon e Number MISYS Pancreatic elastase 1 (12/09/2008 7:00 PM CDT) Patholo gist Method Time Signature Lab Scanned Laboratory MISYS Result Scanned Result [id number] Specimen Anatomical Collection Method Collection Time Receive d Time (Source) Location / / Volume Laterality 12/09/2008 7:00 PM 9 6:33 CDT PM CDT Jerad Hooks MD LAB - STOOLS ORDERABLES Performing Organization Address City/[facility] Code Phon e Number MISYS Alpha 1 antitrypsin stool (12/09/2008 7:00 PM CDT) P athologist Signature Wvaaw-3-Ypvcxyf < 0.12 MISYS p Stool Comment: Reference range: 0.00 to 0.62 Unit: mg/g (Note) Performed by [employer], [address] [place] [id number] [email or web address] Player, Albin Hernández MD - Lab. Director Specimen Anatomical Collection Method Collection Time Receive d Time (Source) Location / / Volume Laterality 12/09/2008 7:00 PM 9 6:33 CDT PM CDT Jerad Hooks MD LAB - STOOLS ORDERABLES Performing Organization Address [facility] Phon e Number MISYS Occult blood stool (12/09/2008 7:00 PM CDT) P athologist Signature Occult Blood Negative NEG MISYS Specimen Anatomical Collection Method Collection Time Receive d Time (Source) Location / / Volume Laterality 12/09/2008 7:00 PM 9 6:58 CDT PM CDT Jerad Hooks MD LAB - STOOLS ORDERABLES Performing Organization Address [facility] Phon e Number MISYS Fecal leukocyte (12/09/2008 [...] MICRO GENERAL ORDERABL ES Performing Organization Address [facility] Phon e Number MISYS Giardia antigen (12/09/2008 7:00 PM CDT) [facility] gist Method Time Signature Specimen Feces MISYS Description Giardia Antigen Negative for MISYS Test Giardia lamblia specific antigen by immunoassay. Micro Report FINAL MISYS Status 12/12/2008 Specimen Anatomical Collection Method Collection Time Receive d Time (Source) Location / / Volume Laterality 12/09/2008 7:00 PM 9 6:34 CDT PM CDT Jerad Hooks MD LAB - MICRO GENERAL ORDERABL ES Performing Organization Address [facility] Phon e Number MISYS Ova and parasites (12/09/2008 7:00 PM CDT) Component Value Ref Test Analysis Performed At [facility] gist Range Method Time Signature Specimen Feces [...]
--- OUTSIDE RECORDS SUMMARY | 2022-07-02 21:52 | XMS_ITS | Encounter Summary ---
:2001 Author Organization [place] Address [address] [place] [address] Care Team Providers Name Role Phone Unavailable Primary Care Provider Unavailable Encounter Details Date Type Department Care Team Description 10/16/2010 Results Only [facility] Gracie Najera MD [facility] [place] [address] Social History Tobacco Use Types Packs/Day Years [...]
--- OUTSIDE RECORDS SUMMARY | 2022-07-02 21:52 | XMS_ITS | Encounter Summary ---
:2001 Author Organization [place] Address [address] [place] [address] Care Team Providers Name Role Phone Unavailable Primary Care Provider Unavailable Encounter Details Date Type Department Care Team Description 02/07/2009 Office Visit-[facility] Jerad Hooks MD [facility] Specialty [facility] [address] [facility] [address] [facility] [address] [place] [address] 2512 [facility], [address] [place] [address] [place] [address] Social History Tobacco Use Types Packs/Day Years Used Date Smoking Tobacco: Never Assessed Sex Assigned at Date Recorded Female 12/02/2020 1:42 PM CDT documented as of this encounter Progress Notes Jerad Hooks - 02/07/2009 8:50 AM CDT Egg Trayer: Jerad Hooks Status: Final - Signature Encounter: 07 Feb 2009 Type: Peds GI Letter Division of Pediatric Gastroenterology, Hepatology & Nutrition Department of Pediatrics [facility] Mail Code [address] [place] [address] Office: [phone] Pediatric Specialty Clinic - [facility] Fourth Floor, Clinic [address] [place] [address] February 07, 2009 David Gibbs MD [facility]s [address] [place] [address]., [address] [place] [address] [facility] [address] [place] [address] RE: Dakota Casiano : 2000 TAWNYA: 02/07/2009 [...] though Dr. Schwarz, pediatric ID doctor from [facility], had not suggested that she needs it or that she has immune deficiency. According toMterri Casiano, Dakota is followed now by Dr. 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 In addition, [...] [place] for asthma and recurrent pneumonias at [facility]. She suggested that she was seen by Dr. Gibbs within the last month; however, Dr. Gibbs suggested previously over the phone that he did not see Dakota for more than a year and as far as he knows she is followed by [facility]. Most recently, Dr. Villaseñor diagnosed Dakota with scoliosis and she was sent to Dr. Cobos at [facility] and iswearing plastic brace now for over a week. Over the last several years Dakota visited a variety of hospitals, including the [facility], [facility], [facility], [facility], as well as [facility]. Dr. Gibbs reported his worries and facts to [facility] authorities; however, as far as he knows, [...] of months since I started to follow Dakota. I suggested to her parents to follow [...] by:Jerad Hooks M.D. Mar 01 2009 12:50PM INTELLIGENCE SUPPORT OFFICER Electronically signed by:Urbano Price M.D. May 06 2009 7:46AM INTELLIGENCE SUPPORT OFFICER documented in this encounter Plan of Treatment Not on filedocumented as of this encounter Visit Diagnoses Not on filedocumented in this encounter
--- OUTSIDE RECORDS SUMMARY | 2022-07-02 21:52 | XMS_ITS | Encounter Summary ---
:2001 Author Organization [place] Address [address] [place] [address]. [place] [address] Care Team Providers Name Role Phone Clinic, [facility] Primary Care Provide r Julian Spencer MD Unavailable Mariposa Atwood MD Unavailable [phone] Reason for Visit Reason Onset Date Comments Appointment 05/05/2020 Encounter Details Date Type Department Care Team Description 05/05/2020 Telephone [facility] Explorer No Ref-Primary , Appointment Pediatric Specialty Clinic Physician [address] [place] [address] [facility], [address], [place], [place] [phone] Social History Tobacco Use [...] other than self): mom Callers Is an Language Specialist Needed: no If yes, Which Language: Best [...] disease Referring Provider: Julian Spencer MD in [facility] Additional Information pertaining to the call: documented in this encounter Plan of Treatment Not on filedocumented as of this encounter Visit Diagnoses Not on filedocumented in this encounter Care Teams Tool Shaper Set Up Operator Relationship Specialty Start Date End Date Clinic, [facility] PCP - General 10/15/17 08/08/201999 [place] [address] Julian Spencer MD MD Orthopedics 03/08/[address] [place] [id number] Mariposa Atwood MD Assigned PCP 04/29/20 11/12/[address] [place] [phone] documented as of this encounter
--- OUTSIDE RECORDS SUMMARY | 2022-07-02 21:52 | XMS_ITS | Encounter Summary ---
:2001 Author Organization [place] Address [address] [place] [address] Care Team Providers Name Role Phone System, Provider Not In Primary Care Provider Unavailable Encounter Details Date Type Department Care Team Description 11/25/2013 Hospital Encounter [facility] Doctor, Cl, Diarrhea (Primary [facility] Mynor Humphries MD, MD [place] [facility] [address] [place], [place] [id number] Dx) [address] [place] [address] Social History Tobacco Use Types [...] Primary documented in this encounter Care Teams Records Clerk Relationship Specialty Start Date End Date System, Provider Not In PCP - General Clinic 11/25/13 04/04/17 documented as of this encounter
--- OUTSIDE RECORDS SUMMARY | 2022-07-02 21:52 | XMS_ITS | Encounter Summary ---
:2001 Author Organization [place] Address [address] [place] [address] Care Team Providers Name Role Phone Clinic, [facility] Primary Care Provide r Julian Spencer MD Unavailable Mariposa Atwood MD Unavailable [phone] Reason for Visit Reason Onset Date Comments URGENT: MRI TRANSFER TO [facility] 05/05/2020 Encounter Details Date Type Department Care Team Description 05/05/2020 Telephone [facility] Julian Spencer URGENT: MRI TRANSFER TO Clinic MD Darell [address] [place] [address] [phone] Social History Tobacco Use Types Packs/Day Years [...] on filedocumented in this encounter Care Teams Speech Clinician Relationship Specialty Start Date End Date Clinic, [facility] PCP - General 10/15/17 08/08/201999 [place] [address] Julian Spencer MD MD Orthopedics 03/08/20 [facility] [address] [place], [place] [phone] Mariposa Atwood MD Assigned PCP 04/29/20 11/12/20 [facility] [place] [address] documented as of this encounter
--- OUTSIDE RECORDS SUMMARY | 2022-07-02 21:52 | XMS_ITS | Encounter Summary ---
:2001 Author Organization [place] Address [facility]0 [place] [address] Care Team Providers Name Role Phone Clinic, [facility] Primary Care Provide r Julian Spencer MD Unavailable Mariposa Atwood MD Unavailable Reason for Referral Consultation (Routine) - Closed Specialty Diagnoses / Procedures Referred By Contact Refer red To Contact Neurological Surgery Diagnoses Other secondary scoliosis, thoracolumbar region Tethered cord (H) History of fusion of spine for scoliosis Acquired von Willebrand disease Julian Spencer Ump Peds MD Neurosurgery [address] [place], [place] Explorer [facility], [address] [place] [address] [place] [address] Phone: Referral ID Status Reason Start Date Expiration Date Visits Requ ested Visits Authorized [id number] Closed 05/05/2020 05/05/2021 1 1 Consultation (Routine) - Closed Specialty Diagnoses / Procedures Referred By Contact Refer red To Contact Diagnoses Other secondary scoliosis, thoracolumbar region Tethered cord (H) History of fusion of spine for scoliosis Acquired von Willebrand disease Julian Spencer MD [address] [place], [place] [address] Referral ID Status Reason Start Date Expiration Date Visits Requ ested Visits Authorized [id number] Closed 05/05/2020 05/05/2021 1 1 Reason for Visit Reason Comments Consult Scoliosis, referral Dr. Go Muro at [facility] but is from [place], records there and at [place] (MRI) and [facility] Encounter Details Date Type Department Care Team Description 05/05/2020 Office Visit [facility] Julian Spencer History of fusion of spine for scoliosis (Primary Dx); Orthopedic Clinic MD [place]arell Other secondary scoliosis, thoracolumbar region; [address] Tethered cord (H); [address] [facility] [address] Acquired von Willebrand disease (H) [address] [place] [phone] Social History Tobacco Use Types Packs/Day Years [...] seen and evaluated by Dr. Cobos at [place]. She was scheduled for surgery for progression [...] went on to see Dr. Muro at [facility] and was found to have symptoms at the level of her CrossLink. Dr. Muro removed her CrossLink, and she initially got betterbut then got worse. She has been seen at [facility], where she had been getting [facility] physical therapy. This has become so problematic [...] brother and lives with her parents in [place]. Previously played Lacrosse but has had to [...] see Dr. Eugenio Finney here at the [facility]. We will go ahead and order a [...] care. documented in this encounter Nursing Notes DeborahmoralesReynaZAC - 05/05/2020 8:00 AM CDT Reason For Visit: Chief Complaint Patient presents with ??? Consult Scoliosis, referral Dr. Mireille Muro at [facility] but is from [place], records there and at [place] (MRI)and [facility] MD: [facility], [facility] Ref. MD: Dr. Muro [place] Bioinformatics Technician? No Occupation Student. Date of injury: No [...] disease documented in this encounter Care Teams Mechanical Maintenance Technician Relationship Specialty Start Date End Date Clinic, [facility] PCP - General 10/15/17 08/08/201999 [place] [address] Julian Spencer MD MD Orthopedics 03/08/20 [facility] [address] [facility] [address] [place] [address] Mariposa Atwood MD Assigned PCP 04/29/20 11/12/20 Critical access hospital0 [place] [address] documented as of this encounter
--- OUTSIDE RECORDS SUMMARY | 2022-07-02 21:52 | XMS_ITS | Encounter Summary ---
:2001 Author Organization [facility] Address [address] [place] [address] Care Team Providers Name Role Phone Unavailable [...] Unknown, Provider - 01/03/2009 12:50 PM CDT Bilingual Account Manager: Desire Brand Status: Final Encounter: 03 Jan 2009 Type: Rooming Note Informant Parent is informant unless otherwise noted. Reason For Visit follow up test results Do you have any other appointments, tests or procedures within the [facility] system for this same day? No. Pain [...] By: Desire Brand CMA; 01/03/2009 1:15 PM DOCUMENT CONTROL SUPERVISOR. documented in this encounter Plan of Treatment Not on filedocumented as of this encounter Visit Diagnoses Not on filedocumented in this encounter
--- OUTSIDE RECORDS SUMMARY | 2022-07-02 21:52 | XMS_ITS | Encounter Summary ---
:2001 Author Organization [place] Address [address] [place] [address] Care Team Providers Name Role Phone Clinic, [facility] Primary Care Provide r Julian Spencer MD Unavailable Mariposa Atwood MD Unavailable [phone] Reason for Visit Reason Comments New Patient Patient being seen today for Von Willebrands and surgery Clearance Consultation (Routine) - Closed Specialty Diagnoses / Procedures Referred By Contact Refer red To Contact Diagnoses Other secondary scoliosis, thoracolumbar region Tethered cord (H) History of fusion of spine for scoliosis Acquired von Willebrand disease Julian Spencer MD [address] [place], [place] [address] Referral ID Status Reason Start Date Expiration Date Visits Requ ested Visits Authorized [id number] Closed 05/05/2020 05/05/2021 1 1 Encounter Details Date Type Department Care Team Description 05/19/2020 Virtual Visit [facility] Mariposa Atwood's [facility] Pediatric MD Nettie disease (H) (Primary Specialty Clinic [address] [place] [address] Dx) [address] [place] [address] [address] [place] [address] Social History Tobacco Use Types [...] (pt. Location): home Distant Location (provider location): [facility] Platform used for Video Visit: AmiDasient CC: Referred by Dr. Spencer for consultation regarding von Willebrand's management for spinal surgery HISTORY OF PRESENT ILLNESS: The patient presents today for consultation regarding von Willebrand management for her upcoming surgery. From her records, she has ongoing pain in her spine after a posterior spinal fusion for scoliosis. Her scoliosis was initially seen and evaluated by Dr. Cobos at [facility] [place]. At her preoperative MRI a tethered cord was found, and initially a tethered cord release was performed without difficulty. She thensubsequently had the posterior spinal fusion done by Dr. Cobos on 01/24/2016 utilizing Medtronic Solera instrumentation (per Dr. Sepncer). With this operation, mother says she lost a lot of blood and got FFP and RBCs transfused. She had some testing doing in the [facility] ICU and [facility] [...] and went to see Dr. Muro at [facility]. She was thought to be having pain from her CrossLink and Dr. Muro removed her CrossLink.Mother says she was again :covered with Amicar IV for 24 hours pre-operatively and with concentrates again (I think probably Humate P). 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 She says additional evaluation was done by Dr. Santacruz in hematology at [facility]. Dakota does have other bleeding issues. SHe [...] brother and lives with her parents in [place]. Previously played Lacrosse. FHx: Significant for mother with mild scoliosis per records. Mother hemorrhaged with her hysterectomy but has not been tested for vWD.. Mother's sister did not know she had vWD until she was hospitalized in a blood bath and was diagnosed at the [facility]. Review of records from [facility] are minimally conrtibutory as there is no [...] email Mom the HIM release for both [facility] and [facility] have her permission to christelle Dr. [...] Primary documented in this encounter Care Teams Molecular Geneticist Relationship Specialty Start Date End Date Clinic, [facility] PCP - General 10/15/17 08/08/201999 [place] [address] Julian Spencer MD MD Orthopedics 03/08/[address] [place], [place] [address] Mariposa Atwood MD Assigned PCP 04/29/20 11/12/20 [address] [place], [place] [address] documented as of this encounter
--- OUTSIDE RECORDS SUMMARY | 2022-07-02 21:52 | XMS_ITS | Encounter Summary ---
:2001 Author Organization [place] Address [facility] [place] [address] Care Team Providers Name Role Phone System, Provider Not In Primary Care Provider Unavailable Reason for Visit Reason Onset Date Comments Pt. Information/instruction 07/23/2012 Encounter Details Date Type Department Care Team Description 07/23/2012 Telephone [facility] Luis Carlos [place], Pt. Clinic [place] Information/instruction [address] [place] [address] [phone] Social History Tobacco Use Types Packs/Day Years Used Date Smoking Tobacco: Never Assessed Sex Assigned at Date Recorded Female 12/02/2020 1:42 PM CDT documented as of this encounter Plan of Treatment Not on filedocumented as of this encounter Visit Diagnoses Diagnosis Immunity deficiency - Primary Unspecified immunity deficiency documented in this encounter Care Teams Medical Staff Credentialing Coordinator Relationship Specialty Start Date End Date System, Provider Not In PCP - General 06/20/1111/04 documented as of this encounter
--- OUTSIDE RECORDS SUMMARY | 2022-07-02 21:52 | XMS_ITS | Encounter Summary ---
:2001 Author Organization [place] Address [address] [place] [address] Care Team Providers Name Role Phone Unavailable [...] determined by Laboratory Medicine and Pa thology, [facility]. This test has not been cleared or approved by the [place] Food and Drug Administration. Assayed at [facility], [place] [address] Specimen Anatomical Collection Method Collection Time Receive [...] 9:30 AM 9 9:32 CDT AM CDT Jread Hooks MD LAB - BLOOD ORDERABLES Performing Organization Address City/[facility]/ZIP Code Phon e Number MISYS CBC [...] LAB - BLOOD ORDERABLES Performing Organization Address [facility]/ZIP Code Phon e Number MISYS CRP inflammation (12/08/2008 9:30 AM CDT) athologist Signature CRP Inflammation 6.0 0.0 - 8.0 MISYS mg/L Specimen Anatomical Collection Method Collection Time Receive d Time (Source) Location / / Volume Laterality 12/08/2008 9:30 AM 9 9:32 CDT AM CDT Jerad Hooks MD LAB - BLOOD ORDERABLES Performing Organization Address City/[facility]/ZIP Code Phon e Number MISYS IgA (12/08/2008 9:30 AM CDT) athologist Signature IGA 85 30 - 200 MISYS mg/dL Specimen Anatomical Collection Method Collection Time Receive d Time (Source) Location / / Volume Laterality 12/08/2008 9:30 AM 9 9:32 CDT AM CDT Jerad Hooks MD LAB - BLOOD ORDERABLES Performing Organization Address City/[facility]/ZIP Code Phon e Number MISYS IgE [...] IgA and IgG (12/08/2008 9:30 AM CDT) [facility] Method Time Signature Tissue <1.0 U/mL MISYS [...] mg. [facility]ayed at [facility] [place] [address] Specimen Anatomical Collection Method Collection Time Receive d Time (Source) Location / / Volume Laterality 12/08/2008 8:30 AM 9 2:02 CDT PM CDT Transcripton Interface LAB - BODY FLUIDS ORDERABLES Performing Organization Address City/State/ZIP Code Phon e Number MISYS documented in this encounter Visit Diagnoses Not on filedocumented in this encounter
--- OUTSIDE RECORDS SUMMARY | 2022-07-02 21:52 | XMS_ITS | Encounter Summary ---
:2001 Author Organization [place] Address [address] [place] [address] Care Team Providers Name Role Phone Unavailable Primary Care Provider Unavailable Encounter Details Date Type Department Care Team Description 12/17/2008 Historic Results [facility] Jerad Hooks MD [facility] GI [address] [facility] [address] [place] [address] [address] [place] [address] (Wo rk) Social History Tobacco [...] NEG MISYS Slide 1 Slide 1 Date 002810 MISYS Occult Blood Negative NEG MISYS Slide 2 Slide 2 Date 453644 MISYS Occult Blood Negative NEG MISYS Slide [...]
--- OUTSIDE RECORDS SUMMARY | 2022-07-02 21:52 | XMS_ITS | Encounter Summary ---
:2001 Author Organization [place] Address [address] [place] [address] Care Team Providers Name Role Phone [facility], [facility] Primary Care Provide r Julian Spencer MD Unavailable Mariposa Atwood MD Unavailable [phone] Encounter Details Date Type Department Care Team [...] on filedocumented in this encounter Care Teams Song And Dance Performer Relationship Specialty Start Date End Date [facility], [facility] PCP - General 10/15/17 08/08/201999 [place] [address] Julian Spencer MD MD Orthopedics 03/08/[address] [place] [address] Mariposa Atwood MD Assigned PCP 04/29/20 11/12/20 [address] [place] [address] documented as of this encounter
--- OUTSIDE RECORDS SUMMARY | 2022-07-02 21:52 | XMS_ITS | Encounter Summary ---
:2001 Author Organization [place] Address [address] [place] [address] Care Team Providers Name Role Phone Unavailable [...] Unknown, Provider - 02/07/2009 8:50 AM CDT Pantograph Transferrer: Desire Brand Status: Final Encounter: 07 Feb 2009 Type: Rooming Note Informant Parent is informant unless otherwise noted. Reason For Visit Abdominal pain follow up Do you have any other appointments, tests or procedures within the [facility] system for this same day? No. Pain [...] By: Desire Brand CMA; 02/07/2009 9:02 AM TRAPPER ANIMAL. documented in this encounter Plan of Treatment Not on filedocumented as of this encounter Visit Diagnoses Not on filedocumented in this encounter
--- OUTSIDE RECORDS SUMMARY | 2022-07-02 21:52 | XMS_ITS | Encounter Summary ---
:2001 Author Organization [place] Address [address] [place] [address] Care Team Providers Name Role Phone Clinic, [facility] Primary Care Provide r Julian Spencer MD Unavailable Mariposa Atwood MD Unavailable Reason for Visit Reason Onset Date Comments patient records 05/05/2020 MRI to be transferre d to [facility] Encounter Details Date Type Department Care Team Description 05/05/2020 Telephone [facility] Orthopaedic Julian Spencer patient records (MRI to Clinic MD Darell be transferred to [facility]) [address] [place] [address] [place] [address] [phone] Social History Tobacco Use Types Packs/Day Years [...] Willa Adams - 05/05/2020 11:25 AM CDT [facility] Call Center Phone Message May a detailed message be left on voicemail: yes Reason for Call: Other: Patient's mom would like patients MRI results and possibly records sent overto [facility] since patient cannot be seen sooner than mid May. Their fax number is [phone] Action Taken: Other: ORTHO Travel Screening: Not Applicable documented in this encounter Plan of Treatment Not on filedocumented as of this encounter Visit Diagnoses Not on filedocumented in this encounter Care Teams Public Affairs Officer Relationship Specialty Start Date End Date Clinic, [facility] PCP - General 10/15/17 08/08/201999 [place] [address] Julian Spencer MD MD Orthopedics 03/08/20 [facility] [address] [place], [place] [id number] Mariposa Atwood MD Assigned PCP 04/29/20 11/12/20 [address] [place], [place] [id number] documented as of this encounter
--- OUTSIDE RECORDS SUMMARY | 2022-07-02 21:52 | XMS_ITS | Encounter Summary ---
:2001 Author Organization [place] Address [address] [facility] [place] [address] Care Team Providers Name Role Phone Unavailable Primary Care Provider Unavailable Encounter Details Date Type Department Care Team Description 01/21/2009 GI Procedure [facility] [place] [address] [place] [address] [place] [address] [place] [place] [address] (Wo rk) Social History Tobacco Use [...] Component Value Ref Test Analysis Performed At [facility] Method Time Signature Upper GI [facility] RADIOLOGY Endoscopy Endoscopy Department-[facility] RESULTS Patient Name: Dakota Casiano ?Gender: F [...] the physician, the nurse and the ? drug regulatory affairs specialist in the procedure room. Mental Status ? [...] RADIOLOGY RESULTS COLONOSCOPY (01/21/2009 11:30 AM CDT) [facility] Method Time Signature COLONOSCOPY [facility] RADIOLOGY Endoscopy Department-[facility] RESULTS Patient Name: Dakota Casiano ?Gender: F [...] the physician, the nurse and the ? drug regulatory affairs specialist in the procedure room. Mental Status ? [...]
--- OUTSIDE RECORDS SUMMARY | 2022-07-02 21:53 | XMS_ITS | Encounter Summary ---
:2001 Author Organization [place] Address [address] [place] [address] Care Team Providers Name Role Phone Unavailable Primary Care Provider Unavailable Encounter Details Date Type Department Care Team Description 12/01/2008 Office Visit-[facility] Jerad Hooks MD [facility] [address] [facility] [address] [facility] [address] [place] [address] 2512 [facility], [address] [place] [address] [place] [address] Social History Tobacco Use Types Packs/Day Years Used Date Smoking Tobacco: Never Assessed Sex Assigned at Date Recorded Female 12/02/2020 1:42 PM CDT documented as of this encounter Progress Notes Jerad Hooks - 12/01/2008 9:30 AM CDT Senior Qa Automation Engineer: Jerad Hooks Status: Final - Signature Encounter: 01 Dec 2008 Type: Peds GI Letter Division of Pediatric Gastroenterology, Hepatology & Nutrition Department of Pediatrics [place] Mail Code [address] [place] [address] Office: [phone] [facility] Fourth Floor, Clinic [address] [place] [address] December 02, 2008 David Gibbs MD [facility] Pediatrics [address] [place] [address]., [address] [place] [address] Urbano Price MD [facility] [address] [place] [address] RE: Dakota Casiano : 2000 TAWNYA: 12/01/2008 [...] should schedule her appointment with a pediatric associate editor and I haverecommended to her dad to [...] by:Jerad Hooks M.D. Dec 03 2008 3:09PM WET MACHINE OPERATOR Electronically signed by:Urbano Price M.D. Feb 24 2009 9:47AM WET MACHINE OPERATOR documented in this encounter Plan of Treatment Not on filedocumented as of this encounter Visit Diagnoses Not on filedocumented in this encounter
--- OUTSIDE RECORDS SUMMARY | 2022-07-02 21:53 | XMS_ITS | Encounter Summary ---
:2001 Author Organization [facility] Address [address] [address] Care Team Providers Name Role Phone No Primary/Referring, Phy Primary Care Provider Unavailable Reason for Referral Procedure/Equipment (Routine) - Incomplete Specialty Diagnoses / Procedures Referred By Contact Refer red To Contact Procedures Ramon Lo MD XR Thoracic Spine [address] [place] [address] Referral ID Status Reason Start Date Expiration Date Visits V isits Requested Authorized [id number] Incomplete 05/12/2019 08/10/2020 1 1 Procedure/Equipment (Routine) - Incomplete Specialty Diagnoses / Procedures Referred By Contact Refer red To Contact Procedures Ramon Lo MD XR Cervical Spine [address] [place] [address] Referral ID Status Reason Start Date Expiration Date Visits V isits Requested Authorized [id number] Incomplete 05/12/2019 08/10/2020 1 1 Reason for Visit Reason Comments Back Pain Encounter Details Date Type Department Care Team Description 05/11/2019 - Emergency [facility] Emergency Dept Ramon Lo MD Acute bilateral thoracic back pain (Prim veronica Dx); 05/12/2019 [address] [facility]. [address] [facility] Anemia due to unknown mechanism; [place] [address] [place], [place]; [phone] Fixation hardware in spine; [phone] H/O spinal fusi on (Work) Social History [...] regarding back pain. Thank you for choosing [facility] for your care. It was a pleasure taking care of you today [facility] Emergency Department. documented in this encounter Medications [...] tablet MOUTH DAILY X30 DAYS: SCHEDULE APPT [phone] documented as of this encounter ED Notes Reyna Morales RN - 05/12/2019 2:39 AM CDT [facility] ED Nursing Discharge Note Patient [...] Gabby Ring - 05/11/2019 11:54 PM CDT [facility] Emergency Medicine Visit Note Chief [...] color normal Neuro: oriented x3, speech clear, fine arts model grossly intact, moves all extremities appropriately Psychiatric: [...] Lo MD - 05/11/2019 11:24 PM CDT [facility] Emergency Department Attending Supervision Note ? I performed the ren elements of history and exam, and agree with resident's findings and plan of care as discussed with resident physician Dr. Gabby Ring. ?? I have reviewed and agreed with the [facility], FH, SOC, ROS. Please see [...] procedure are i n the results section. [id number] ELECTROCARDIOGRAM STAT 05/12/2019 12:19 Results for this [...] Organization Address City/State/ZIP Code Phon e Number [address] [address] Procalcitonin (05/12/2019 12:39 AM CDT) P athologist Signature Procalcitonin <0.02 <=0.24 05/12/2019 [facility] ng/mL 1:53 AM CDT HOSPITAL Specimen Anatomical Collection Method / Collection Time Recei donal Time (Source) Location / Volume Laterality Blood Venipuncture / 05/12/2019 12:39 9 1:00 Unknown AM CDT AM CDT [facility] - 05/12/2019 1:53 AM CD T Differential [...] Lo MD LAB_1 Performing Organization Address City/State/ZIP [facility] Phon e Number [address] [address] C-Reactive Protein (05/12/2019 12:39 AM CDT) P athologist Signature C-Reactive <0.1 0.0 - 0.7 05/12/2019 [facility] Protein mg/dL 1:32 AM CDT HOSPITAL Specimen Anatomical Collection Method / Collection Time Recei donal Time (Source) Location / Volume Laterality Blood Venipuncture / 05/12/2019 12:39 9 1:00 Unknown AM CDT AM CDT Ramon Lo MD LAB_1 Performing Organization Address City/State/ZIP Code Phon e Number [address] [address] XR Thoracic Spine 3 Views (05/12/2019 12:33 [...] EXAM: XR THORACIC SPINE 3 VIEWS LOCATION: [facility] H[facility]PITAL DATE/TIME: 05/12/2019 12:33 AM INDICATION: Pain, [...] EXAM: XR CERVICAL SPINE 3 VIEWS LOCATION: [facility] DATE/TIME: 05/12/2019 12:33 AM INDICATION: Pain, [...] Clear Background - Internal control Cartridge Lot# [id number] POCT Specimen (Source) Anatomical Collection Method Collection Time Re ceived Time Location / / Volume Laterality Urine 05/12/2019 12:25 AM CDT Ramon oL MD ET POINT OF CARE TEST ENTER/ EDIT ORDERABLES Performing Organization Address City/State/ZIP Code Phon e Number POCT ECG 12-Lead STAT (05/12/2019 12:19 AM CDT) P athologist Signature Ventricular Rate 69 BPM [facility] Atrial Rate 69 BPM [facility] P-R Interval 136 ms [facility] QRS Duration 94 ms [facility] QT 402 ms [facility] QTc 430 ms [facility] P Worth 25 degrees [facility] R Worth 90 degrees [facility] T Worth 66 degrees [facility] Specimen (Source) Anatomical [...] Organization Address City/State/ZIP Code Phon e Number [facility] [address] [place] [address] documented in this encounter Visit Diagnoses Diagnosis [...] dose documented in this encounter Care Teams Abrading Machine Tender Relationship Specialty Start Date End Date No Primary/Referring, Phy PCP - General 05/11/19 documented as of this encounter
--- OUTSIDE RECORDS SUMMARY | 2022-07-02 21:53 | XMS_ITS | Encounter Summary ---
:2001 Author Organization [facility] Address [address] [address] Care Team Providers Name Role Phone Unassigned, Provider Primary Care Provider Unavailable Encounter Details Date Type Department Care Team Description 03/03/2019 - Hospital Encounter [facility] Chintan Cobos MD 03/08/2019 Orthopedica/Surgical [address] [facility] [place] [address] [address] [facility] [place] [id number] Social History Tobacco Use Types Packs/Day Years [...] tablet MOUTH DAILY X30 DAYS: SCHEDULE APPT [phone] documented as of this encounter Plan of [...] (03/03/2019 4:17 PM CDT) Analysis Performed At [place] Time Signature Specimen Site Arterial 03/03/2019 [facility] [...] Organization Address City/State/ZIP Code Phon e Number [address] [address] (ABNORMAL) Blood Gas, POCT (03/03/2019 1:28 PM [...] Glucose, Whole 161 70 - 180 03/03/2019 [facility] Blood mg/dL 5:01 PM CDT HOSPITAL Specimen Anatomical Collection Method Collection Time Receive d Time (Source) Location / / Volume Laterality Blood 03/03/2019 1:28 PM 9 5:01 CDT PM CDT Chintan Cobos MD LAB_1 Performing Organization Address [facility]/ZIP [facility] Phon e Number [facility] [address] [place] [address] Antibody Screen (03/03/2019 9:53 AM CDT) [facility] Method Time Signature Antibody Screen Negative 03/03/2019 [facility] BLOOD Interpretation 11:07 AM CDT BANK Specimen Anatomical Collection Method / Collection Time Recei donal Time (Source) Location / Volume Laterality Blood Venipuncture / 03/03/2019 9:53 03/03/2019 Unknown AM CDT 10:11 AM CDT Chintan Cobos MD LAB_1 Performing Organization Address [facility] Phon e Number [facility] BLOOD BANK [address] [place] [address] Blood Type (03/03/2019 9:53 AM CDT) P athologist Signature ABO O 03/03/2019 [facility] BLOOD 11:07 AM CDT BANK RH Positive 03/03/2019 [facility] BLOOD 11:07 AM CDT BANK Specimen Anatomical Collection Method / Collection Time Recei donal Time (Source) Location / Volume Laterality Blood Venipuncture / 03/03/2019 9:53 03/03/2019 Unknown AM CDT 10:11 AM CDT Chintan Cobos MD LAB_1 Performing Organization Address City/[facility] Phon e Number [facility] BLOOD BANK [address] [place] [address] Prep RBC: , 1 Units (03/03/2019 9:53 AM CDT) Component Value Ref Test Analysis Performed At [facility] Range Method Time Signature BLOOD PRODUCT [id number] [facility] CODE BLOOD BANK BLOOD UNIT NUMBER [id number] [facility] S BLOOD BANK CROSSMATCH Compatible [facility] INTERPRETATION BLOOD BANK BLOOD DISPENSE Returned/Releas [facility] STATUS ed BLOOD BANK Unit Expiration [id number] [facility] Date BLOOD BANK UNIT BT BARCODE 5100 [facility] BLOOD BANK CODING SYSTEM ISBT [facility] BLOOD BANK Specimen (Source) Anatomical Collection Method Collection Time Re ceived Time Location / / Volume Laterality Blood 03/03/2019 9:53 AM CDT Chintan Cobos MD LAB_BLOOD PRODUCTS Performing Organization Address City/State/ZIP Code Phon e Number [facility] BLOOD BANK [address] [place] [address] documented in this encounter Visit Diagnoses Not on filedocumented in this encounter Care Teams Control Clerk Relationship Specialty Start Date End Date Unassigned, Provider PCP - General 01 05/10/19 [address] [place] [address] documented as of this encounter
--- OUTSIDE RECORDS SUMMARY | 2022-07-02 21:53 | XMS_ITS | Encounter Summary ---
:2001 Author Organization [place] Address [address] [place] [address] Care Team Providers Name Role Phone Unavailable Primary Care Provider Unavailable Encounter Details Date Type Department Care Team Description 08/21/2004 Operative Report Riaz Hernandez MD (Vice President Of News) [facility] [place] [address] [place], [place] [address] (Wo rk) Social History Tobacco Use Types Packs/Day Years Used Date Smoking Tobacco: Never Assessed Sex Assigned at Date Recorded Female 12/02/2020 1:42 PM CDT documented as of this encounter Miscellaneous Notes Op Note - Riaz Hernandez MD - 08/18/2004 12:00 AM CLEANER AND PRESSER : 01 1st ASS'T: 2nd ASS'T: PRE-OPERATIVE [...] loss. [id number] RIAZ HERNANDEZ MD MT: Document: [id number] [place], [place] Name: MR#: DAKOTA VASQUEZ -23 OPERATIVE REPORT Page 2 of 2 LCN: SHAR[place] DSC: 08/18/2004 [place], [place] Name: MR#: DAKOTA VASQUEZ -23 : Procedure Date: Account #: 2000 [id number] Doctor: RIAZ HERNANDEZ MD OPERATIVE REPORT Page 1 of 2 NER AND PRESSER documented in this encounter Plan of Treatment Not on filedocumented as of this encounter Visit Diagnoses Not on filedocumented in this encounter
--- OUTSIDE RECORDS SUMMARY | 2022-07-02 21:53 | XMS_ITS | Encounter Summary ---
:2001 Author Organization [place] Address [address] [place] [address] Care Team Providers Name Role Phone Unavailable Primary Care Provider Unavailable Encounter Details Date Type Department Care Team Description 08/19/2004 Historic Results INTERFACED REPORT New Luna MD [address] [place], [place] [address] (Wo rk) Social History Tobacco Use Types Packs/Day Years Used Date Smoking Tobacco: Never Assessed Sex Assigned at Date Recorded Female 12/02/2020 1:42 PM CDT documented as of this encounter Plan of Treatment Not on filedocumented as of this encounter Procedures Procedure Name Priority Date/Time Associated Comments Diagnosis HEMOGRAM DIFFERENTIAL STAT 08/19/2004 7:45 PM Results for this AND PLATELET PRESS FEEDER BR[employer]OMCORN procedure are i n the results section. BLOOD CULTURE STAT 08/19/2004 7:45 PM Results for this PRESS FEEDER BR[employer]OMC[employer] procedure are i n the results section. BASIC METABOLIC PANEL STAT 08/19/2004 7:45 PM Results for this PRESS FEEDER [employer]OMC[employer] procedure are i n the results section. documented in this encounter Results (ABNORMAL) Hemogram differential and platelet (08/19/2004 7:45 PM PRESS FEEDER BROOMCORN) [facility] Method Time Signature MCV 83 70 - [...] Volume Laterality 08/19/2004 7:45 PM 5 7:36 PRESS FEEDER BR[employer]OMCORN PM PRESS FEEDER BROOMCORN [place] MD LAB - BLOOD ORDERABLES Performing Organization Address City/State/ZIP Code Phon e Number MISYS Basic metabolic panel (08/19/2004 7:45 PM PRESS FEEDER BROOMCORN) [facility] gist Method Time Signature Sodium 138 133 [...] Volume Laterality 08/19/2004 7:45 PM 5 7:36 PRESS FEEDER BR[employer]OMC[employer] PM PR[employer] [place] MD LAB - BLOOD ORDERABLES Performing Organization Address City/State/ZIP Code Phon e Number MISYS Blood culture (08/19/2004 7:45 PM PRESS FEEDER BROOMCORN) [facility] Method Time Signature Specimen Arm MISYS Description Culture Micro No growth MISYS after 6 days Micro Report FINAL MISYS Status [id number] Specimen Anatomical Collection Method Collection Time Receive d Time (Source) Location / / Volume Laterality 08/19/2004 7:45 PM 5 7:36 PRESS FE[employer]ER [employer] PM [employer] [place] MD LAB - MICRO GENERAL ORD ERABLES Performing Organization Address City/State/ZIP Code Phon e Number [facility] documented in this encounter Visit Diagnoses Not on filedocumented in this encounter
--- OUTSIDE RECORDS SUMMARY | 2022-07-02 21:53 | XMS_ITS | Encounter Summary ---
:2001 Author Organization [facility] Address [address] [address] Care Team Providers Name Role Phone Unassigned, Provider Primary Care Provider Unavailable Encounter Details Date Type Department Care Team Description 01/28/2019 Orders Only [facility] CecristobalRiaz Adrenal insufficiency [address] DALIA Boyle MD (HRC) (Primary Dx) [place] [address] [address] [place], [place] [id number] Social History Tobacco Use Types Packs/Day Years [...] reference intervals for this test in the Connectloud ratory Test Directory ([facility]). Performed by The Art Commission, [address] [place] [address] www.[facility], Tenzin Holguin MD, Lab. Director Specimen Anatomical Collection Method / Collection Time Recei donal Time (Source) Location / Volume Laterality Blood Venipuncture / 01/28/2019 11:15 9 Unknown AM CDT 11:27 AM CDT Aime Zaidi MD LAB_1 Performing Organization Address [facility] Phon e Number [facility] [address] [place] [address] [phone] (ABNORMAL) Cortisol (01/28/2019 11:15 AM CDT) athologist Signature Cortisol 40.1 (H) 2.9 - 19.4 01/28/2019 [facility] mcg/dL 12:43 PM CDT HOSPITAL Specimen Anatomical Collection Method / Collection Time Recei donal Time (Source) Location / Volume Laterality Blood Venipuncture / 01/28/2019 11:15 9 Unknown AM CDT 11:27 AM CDT [facility] - 01/28/2019 12:43 PM C DT Expected values AM (before 10am): 3.7-19.4 mcg/dL PM (after 5pm): 2.9-17.3 mcg/dL Aime Zaidi MD LAB_1 Performing Organization Address City/State/ZIP Code Phon e Number [facility] [address] [place] [address] [facility] [address] [place], [place] [id number] [place] [address] [phone] Aldosterone Serum (01/28/2019 10:45 AM CDT) P athologist Signature Aldosterone 9.1 ng/dL 01/29/2019 [facility] 1:02 PM CDT Comment: INTERPRETIVE INFORMATION: Aldosterone, [...] reference intervals for this test in the Showbuckso ratory Test Directory ([facility]). Performed by The [employer] Commission, [address] [place] [address] www.[facility], Tenzin Holguin MD, Lab. Director Specimen Anatomical Collection Method / Collection Time Recei donal Time (Source) Location / Volume Laterality Blood Venipuncture / 01/28/2019 10:45 9 Unknown AM CDT 10:56 AM CDT Aime Zaidi MD LAB_1 Performing Organization Address City/State/ZIP Code Phon e Number [facility] [address] [place], [place] [phone] (ABNORMAL) Cortisol (01/28/2019 10:45 AM CDT) P athologist Signature Cortisol 30.0 (H) 2.9 - 19.4 01/28/2019 [facility] mcg/dL 11:38 AM CDT HOSPITAL Specimen Anatomical Collection Method / Collection Time Recei donal Time (Source) Location / Volume Laterality Blood Venipuncture / 01/28/2019 10:45 9 Unknown AM CDT 10:56 AM CDT [facility] - 01/28/2019 11:38 AM C DT Expected values AM (before 10am): 3.7-19.4 mcg/dL PM (after 5pm): 2.9-17.3 mcg/dL Aime Zaidi MD LAB_1 Performing Organization Address [facility] Phon e Number [address] [address], [facility] [phone] (ABNORMAL) Cortisol (01/28/2019 10:23 AM CDT) P athologist Signature Cortisol 27.2 (H) 2.9 - 19.4 01/28/2019 [facility] mcg/dL 11:22 AM CDT HOSPITAL Specimen Anatomical Collection Method / Collection Time Recei donal Time (Source) Location / Volume Laterality Blood Venipuncture / 01/28/2019 10:23 9 Unknown AM CDT 10:37 AM CDT [facility] - 01/28/2019 11:22 AM C DT Expected values AM (before 10am): 3.7-19.4 mcg/dL PM (after 5pm): 2.9-17.3 mcg/dL Aime Zaidi MD LAB_1 Performing Organization Address [facility] Phon e Number [address] [address], [facility] Aldosterone Serum (01/28/2019 10:23 AM CDT) P [...] reference intervals for this test in the ELENZA Test Directory ([facility]). Performed by The [employer], [address] [facility] [address] www.[facility], Tenzin Holguin MD, Lab. Director Specimen Anatomical Collection Method / Collection Time Recei donal Time (Source) Location / Volume Laterality Blood Venipuncture / 01/28/2019 10:23 9 Unknown AM CDT 10:37 AM CDT Aime Zaidi MD LAB_1 Performing Organization Address City/State/ZIP Code Phon e Number [facility] [address] [place] [address] [phone] Aldosterone Serum (01/28/2019 10:03 AM CDT) athologist Signature Aldosterone 10.1 ng/dL 01/29/2019 [facility] 1:02 PM CDT Comment: INTERPRETIVE INFORMATION: Aldosterone, [...] reference intervals for this test in the ELENZA Test Directory ([facility]). Performed by The [employer] Commission, [address] [facility] [address] www.[facility], Tenzin Holguin MD, Lab. Director Specimen Anatomical Collection Method / Collection Time Recei donal Time (Source) Location / Volume Laterality Blood Venipuncture / 01/28/2019 10:03 9 Unknown AM CDT 10:10 AM CDT Aime Zaidi MD LAB_1 Performing Organization Address City/[facility]/ZIP Code Phon e Number [facility] [address] [place] [address] [phone] (ABNORMAL) Cortisol (01/28/2019 10:03 AM CDT) P athologist Signature Cortisol 24.2 (H) 2.9 - 19.4 01/28/2019 [facility] mcg/dL 10:52 AM CDT HOSPITAL Specimen Anatomical Collection Method / Collection Time Recei donal Time (Source) Location / Volume Laterality Blood Venipuncture / 01/28/2019 10:03 9 Unknown AM CDT 10:10 AM CDT [facility] - 01/28/2019 10:52 AM C DT Expected values AM (before 10am): 3.7-19.4 mcg/dL PM (after 5pm): 2.9-17.3 mcg/dL Aime Zaidi MD LAB_1 Performing Organization Address [facility] Phon e Number [phone] [place] [address] Fibrinogen Activity (01/28/2019 9:25 AM CDT) P athologist Signature Fibrinogen 285 195 - 446 01/28/2019 [facility] Activity mg/dL 10:52 AM CDT HOSPITAL Specimen Anatomical Collection Method / Collection Time Recei donal Time (Source) Location / Volume Laterality Blood Venipuncture / 01/28/2019 9:25 01/28/2019 9:49 Unknown AM CDT AM CDT Riaz Amin MD LAB_1 Performing Organization Address City/[facility] Phon e Number [address] [address] [phone] [place] [address] (ABNORMAL) Complete Blood Count-W/Diff (01/28/2019 9:25 AM [...] Monterroso APRN, CNP LAB_1 Performing Organization Address City/[facility]/ZIP Code Phon e Number [address] [address], [facility] Factor 13 Antigen (01/28/2019 9:25 AM CDT) P athologist Signature Factor 13 94 57 - 192 % 01/28/2019 [facility] Antigen 1:17 PM CDT HOSPITAL Specimen Anatomical Collection Method / Collection Time Recei donal Time (Source) Location / Volume Laterality Blood Venipuncture / 01/28/2019 9:25 01/28/2019 9:49 Unknown AM CDT AM CDT Sarah Monterroso APRN, CNP LAB_1 Performing Organization Address City/[facility]/ZIP [facility] Phon e Number [address] [address] [place] [address], [facility] Platelet Function Time (01/28/2019 9:25 AM CDT) P athologist Signature Plt Function 142 <185 Seconds 01/28/2019 [facility] Time 10:16 AM CDT HOSPITAL Collagen/Epine phrine Specimen Anatomical Collection Method / Collection Time Recei donal Time (Source) Location / Volume Laterality Blood Venipuncture / 01/28/2019 9:25 01/28/2019 9:49 Unknown AM CDT AM CDT Sarah Monterroso APRN, CNP LAB_1 Performing Organization Address City/[facility]/ZIP [facility] Phon e Number [phone] [address], [facility] [phone] Vonwillebrand Panel (01/28/2019 9:25 AM CDT) Patholo [...] % 01/28/2019 [facility] 12:41 PM CDT HOSPITAL [facility] Agn 76 50 - 160 % 01/28/2019 [facility] 12:41 PM CDT [facility] 77 55 - 200 % 01/28/2019 [facility] Factor 12:41 PM CDT HOSPITAL Specimen Anatomical Collection Method / Collection Time Recei donal Time (Source) Location / Volume Laterality Blood Venipuncture / 01/28/2019 9:25 01/28/2019 9:49 Unknown AM CDT AM CDT Sarah Monterroso APRN, CNP LAB_1 Performing Organization Address [facility]/ZIP [facility] [place] [address] Ferritin (01/28/2019 9:25 AM CDT) P athologist Signature Ferritin 33 9 - 204 01/28/2019 [facility] ng/mL 10:32 AM CDT HOSPITAL Specimen Anatomical Collection Method / Collection Time Recei donal Time (Source) Location / Volume Laterality Blood Venipuncture / 01/28/2019 9:25 01/28/2019 9:46 Unknown AM CDT AM CDT Sarah Monterroso APRN, CNP LAB_1 Performing Organization Address [facility] [place] [address] Iron Profile (Iron,TIBC,%Sat.(Calc)) (01/28/2019 9:25 AM CDT) P athologist Signature Iron 170 50 - 170 01/28/2019 [facility] mcg/dL 10:27 AM CDT HOSPITAL Transferrin 290 180 - 382 01/28/2019 [facility] mg/dL 10:27 AM [facility] TIBC, Calculated 363 240 - 450 01/28/2019 [facility] mcg/dL 10:27 AM [facility] % Saturation, 47 10 - 50 % 01/28/2019 [facility] Calculated 10:27 AM [facility] Specimen Anatomical Collection Method / Collection Time Recei donal Time (Source) Location / Volume Laterality Blood Venipuncture / 01/28/2019 9:25 01/28/2019 9:46 Unknown AM CDT AM CDT Sarah Monterroso APRN, LANGUAGE PATH LAB_1 Performing Organization Address City/State/ZIP Code Phon e Number [facility] [phone] [address], [facility] (ABNORMAL) Nutrition Support Panel (01/28/2019 9:25 AM CDT) athologist Signature Sodium 140 136 - 145 01/28/2019 [facility] mmol/L 12:56 PM [facility] Potassium 3.4 (L) 3.5 - 5.1 01/28/2019 [facility] mmol/L 12:56 PM [facility] Chloride 104 98 - 109 01/28/2019 [facility] mmol/L 12:56 PM [facility] CO2 25 20 - 29 01/28/2019 [facility] mmol/L 12:56 PM [facility] Anion Gap 11 7 - 16 01/28/2019 [facility] mmol/L 12:56 PM [facility] Glucose 62 (L) 70 - 100 01/28/2019 [facility] mg/dL 12:56 PM [facility] Comment: The given reference range is fo r the fasting state. Non-fasting reference range for glucose is 70 - 180 mg/dL. Calcium 9.7 8.4 - 10.4 mg/dL 01/28/2019 12:56 PM T [facility] BUN 9 7 - 26 mg/dL 01/28/2019 12:56 PM [facility] Creatinine 0.75 0.49 - 0.84 mg/dL 01/28/2019 12:56 PM C DT [facility] GFR, Estimated >60 mL/min/1.73m2 01/28/2019 12:56 PM T [facility] Comment: The GFR formula is valid only f or patients 18 years of age and older GFR, Est If >60 mL/min/1.73m2 12:56 PM CDT [facility] Thai Comment: The GFR formula is valid only f or patients 18 years of age and older Phosphorus 3.6 2.9 - 5.0 mg/dL 01/28/2019 12:56 PM [facility] CDT Bilirubin, Total 1.1 0.2 - 1.2 mg/dL 01/28/2019 12:56 PM [facility] CDT Albumin 3.8 3.5 - 5.0 g/dL 01/28/2019 12:56 PM [facility] CDT Triglyceride 56 <=149 mg/dL 01/28/2019 12:56 PM [facility] CDT Alkaline Phosphatase 70 48 - 95 U/L 01/28/2019 12:56 PM [facility] CDT AST (SGOT) 15 10 - 40 U/L 01/28/2019 12:56 PM [facility] CDT Magnesium 2.1 1.6 - 2.6 mg/dL 01/28/2019 12:56 PM [facility] CDT Hours Fasting Unknown 01/28/2019 12:56 PM [facility] CDT Specimen Anatomical Collection Method / Collection Time Recei donal Time (Source) Location / Volume Laterality Blood Venipuncture / 01/28/2019 9:25 01/28/2019 9:46 Unknown AM CDT AM CDT Sarah Monterroso APRN, LANGUAGE PATH LAB_1 Performing Organization Address City/State/ZIP [place] [address] Aldosterone Serum (01/28/2019 9:25 AM CDT) P [...] reference intervals for this test in the Connectloud ratory Test Directory ([facility]). Performed by The [employer] Commission, [address] [place] [address] www.[facility], Tenzin Holguin MD, Lab. Director Specimen Anatomical Collection Method / Collection Time Recei donal Time (Source) Location / Volume Laterality Blood Venipuncture / 01/28/2019 9:25 01/28/2019 9:49 Unknown AM CDT AM CDT Sarah Monterroso APRN, SUNNY LAB_1 Performing Organization Address City/State/ZIP Code Phon e Number [facility] [address] [place], [place] [phone] Renin Activity (01/28/2019 9:25 AM CDT) athologist Signature Renin Activity 3.0 ng/mL/hr 01/29/2019 [facility] 3:10 PM [facility]ATORIES Comment: INTERPRETIVE INFORMATION: [...] angiotensinogen is decreased. See Compliance Statement D: www.[facility]/CS Performed by The [employer] Commission, [address] [place] [address] www.[facility], Tenzin Holguin MD, Lab. Director Specimen Anatomical Collection Method / Collection Time Recei donal Time (Source) Location / Volume Laterality Blood Venipuncture / 01/28/2019 9:25 01/28/2019 9:49 Unknown AM CDT AM CDT Sarah Monterroso APRN, LANGUAGE PATH LAB_1 Performing Organization Address City/State/ZIP Code Phon e Number [facility] [address] [place], [place] [phone] ACTH (01/28/2019 9:25 AM CDT) athologist Signature ACTH 14 6 - 55 01/29/2019 [facility] pg/mL 11:37 AM CDT Comment: INTERPRETIVE INFORMATION: Adrenocorticot ropic Hormone Some types of synthetic ACTH are not det ected by this assay. Access complete set of age- and/or gende r-specific reference intervals for this test in the Showbuckso ratory Test Directory ([facility]). Performed by The [employer] Commission, [address] [place] [address] www.[facility], Tenzin Holguin MD, Lab. Director Specimen Anatomical Collection Method / Collection Time Recei donal Time (Source) Location / Volume Laterality Blood Venipuncture / 01/28/2019 9:25 01/28/2019 9:49 Unknown AM CDT AM CDT Sarah Monterroso APRN, CNP LAB_1 Performing Organization Address [facility] Phon e Number [facility] [address] [place] [address] [phone] (ABNORMAL) Cortisol (01/28/2019 9:25 AM CDT) athologist Signature Cortisol 22.2 (H) 2.9 - 19.4 01/28/2019 [facility] mcg/dL 10:32 AM CDT HOSPITAL Specimen Anatomical Collection Method / Collection Time Recei donal Time (Source) Location / Volume Laterality Blood Venipuncture / 01/28/2019 9:25 01/28/2019 9:46 Unknown AM CDT AM CDT [facility] - 01/28/2019 10:32 AM C DT Expected values AM (before 10am): 3.7-19.4 mcg/dL PM (after 5pm): 2.9-17.3 mcg/dL Sarah Monterroso APRN, CNP LAB_1 Performing Organization Address [facility] Phon e Number [address] [address], [facility] documented in this encounter Visit Diagnoses Diagnosis Adrenal insufficiency ([facility]) - Primary Glucocorticoid deficiency documented in this encounter Care Teams Baker Test Relationship Specialty Start Date End Date Unassigned, Provider PCP - General 01 05/10/[address] [place] [address] documented as of this encounter
--- OUTSIDE RECORDS SUMMARY | 2022-07-02 21:53 | XMS_ITS | Clinical Summary ---
:2001 [facility] Address [address] [place] [address] Care Team Providers Name Role Phone No [...] for each transition of care or referral. [email or web address] Allergies Active Allergy Reactions Severity Noted Date [...] tablet MOUTH DAILY X30 DAYS: SCHEDULE APPT [phone] metoclopramide (REGLAN) Take 1 Tablet by 15 [...] Comments Blood Pressure 102/64 08/07/2019 12:32 PM LOAD TESTER Pulse 90 08/07/2019 12:32 PM LOAD TESTER Temperature 36.7 ??C (98 ??F) 08/07/2019 12:32 PM LOAD TESTER Respiratory Rate 16 08/07/2019 12:32 PM LOAD TESTER Oxygen Saturation 100% 08/07/2019 12:32 PM LOAD TESTER Inhaled Oxygen Concentration - - Weight 49.9 [...] (Preventive 2017 Services) Adult Preventive Visit 2019 DTaP/Tdap/Td (6 - Tdap) 03/31/2022 03/31/2012, 11/22/2006, [...] Address T ype Group Dates PREFERREDONE PREFERREDONE [id number] 2018-Pres [phone] [facility] ent [phone] [place] [address] [facility] [id number] 2009-Pres [address] Med icaid ent [id number] [address] [facility] [place] [address] Myles Casiano Personal/Family Father [phone] (Home) [place] [address] Myles Casiano Personal/Family Father [address] [address] MYLES CASIANO Personal/Family Parent [phone] ([place]) [place] [address] Care Teams Odd Shoe Examiner Relationship Specialty Start Date End Date No Primary/Referring, Phy PCP - General 05/11/19
--- OUTSIDE RECORDS SUMMARY | 2022-07-02 21:53 | XMS_ITS | Encounter Summary ---
:2001 Author Organization [facility] Address [address] [address] Care Team Providers Name Role Phone No Primary/Referring, Phy Primary Care Provider Unavailable Reason for Visit Procedure/Equipment (Routine) - Incomplete Specialty Diagnoses / Procedures Referred By Contact Refer red To Contact Procedures Ramon Lo MD XR Cervical Spine 3 Views [address] [place] [address] Referral ID Status Reason Start Date Expiration Date Visits V isits Requested Authorized [id number] Incomplete 05/12/2019 08/10/2020 1 1 Encounter Details Date Type Department Care Team Description 05/12/2019 Ancillary Procedure [facility] [address] [place] [address] Social History Tobacco Use Types Packs/Day Years [...] EXAM: XR THORACIC SPINE 3 V[facility]WS LOCATION[facility] DATE/TIME: 05/12/2019 12:33 AM INDICATION: [...] EXAM: XR CERVICAL SPINE 3 V[facility]WS [facility]ATION: [facility] DATE/TIME: 05/12/2019 12:33 AM INDICATION: [...] EXAM: XR CERVICAL SPINE 3 VIEWS [facility]ATION: [facility] DATE/TIME: 05/12/2019 12:33 AM INDICATION: [...] on filedocumented in this encounter Care Teams Reel Operator Relationship Specialty Start Date End Date No Primary/Referring, Phy PCP - General 05/11/19 documented as of this encounter
--- OUTSIDE RECORDS SUMMARY | 2022-07-02 21:53 | XMS_ITS | Encounter Summary ---
:2001 Author Organization [facility] Address [address] [address] Care Team Providers Name Role Phone Unassigned, Provider Primary Care Provider Unavailable Encounter Details Date Type Department Care Team Description 12/23/2018 Orders Only Terrie Reyes AP RN, Scoliosis; [facility] DROP WORKER Dorsalgia; [facility] [address] Scoliosis; [address] [place] [address] [place] [address] Social History Tobacco Use Types Packs/Day Years [...] MRSA, Molecular Detection (12/23/2018 9:34 AM CDT) [facility] Method Time Signature MRSA Not Detected Not Detected 12/23/2018 [facility] 7:38 PM CDT HOSPITAL Specimen Anatomical Collection Method Collection Time Receive d Time (Source) Location / / Volume Laterality Swab (Source ENTIRE ANTERIOR Non-blood 12/23/2018 9:34 AM 2018 Required) NARIS / Unknown Collection / CDT 10:47 [address] [facility] - 12/23/2018 7:38 PM CD T Methodology: Qualitative real-time PCR a ssay Terrie Vazquez GRINDER HAND, DROP WORKER LAB_1 Performing Organization Address City/State/ZIP Code Phon e Number [phone] [place] [address] documented in this encounter Visit Diagnoses Diagnosis Scoliosis Scoliosis (and kyphoscoliosis), idiopath ic Dorsalgia Pain in thoracic spine documented in this encounter Care Teams Planning Coordinator Relationship Specialty Start Date End Date Unassigned, Provider PCP - General 01 05/10/19 [address] [place] [address] documented as of this encounter
--- OUTSIDE RECORDS SUMMARY | 2022-07-02 21:53 | XMS_ITS | Encounter Summary ---
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 HISTORY OF [...] orders. We spoke with Dr. José Miguel Tillman who is concrete saw operator for Dr. Ruiz, ENT who did the surgery. Dr. Tillman is aware and will check the patient tomorrow. DIAGNOSES: 1. Dehydration secondary to vomiting and poor oral intake. 2. Vomiting post tonsillectomy and adenoidectomy from 08/18/04. [id number] _ NEW LUNA MD [place]: Document: [id number] [place], [place] Name: MR#: DAKOTA VASQUEZ [id number] EMERGENCY ROOM ENCOUNTER Page 2 of 2 LCN: SILVESTRE DSC: [place], [place] Name: MR#: DAKOTA VASQUEZ [id number] : Admit Date: Account #: 2000 08/19/2004 [id number] Doctor: NEW LUNA MD EMERGENCY ROOM ENCOUNTER Page 1 of 2 documented in this encounter Plan of Treatment Not on filedocumented as of this encounter Visit Diagnoses Not on filedocumented in this encounter
--- OUTSIDE RECORDS SUMMARY | 2022-07-02 21:53 | XMS_ITS | Encounter Summary ---
:2001 Author Organization [facility] Address [address] [place] [address] Care Team Providers Name Role Phone Unavailable Primary Care Provider Unavailable Encounter Details Date Type Department Care Team Description 08/18/2004 Historic Results INTERFACED REPORT Barak Hernandez MD ENT SPECIALTY [place] RE [address] [place], [place] [address] (Wo rk) Social History [...] 08/18/2004 12:00 AM Result s for this ICE CREAM MACHINE OPERATOR procedure are i n the results section . documented in this encounter Results Histopathology (08/18/2004 12:00 AM ICE CREAM MACHINE OPERATOR) Component Value Ref Test Analysis Performed At [facility] Range Method Time Signature Copath Report CASE: [id number] ^ [facility] MR#: [id number] Patient Name: DAKOTA VASQUEZ. Collected: 08/18/2004 Received: [...] / Volume Laterality 08/18/2004 08/21/2004 6:01 PM ICE CREAM MACHINE OPERATOR Riaz Hernandez MD LAB - [facility] SPECIAL DIAG OR DERABLES Performing Organization Address City/State/ZIP Code Phon e Number [facility] documented in this encounter Visit Diagnoses Not on filedocumented in this encounter
--- OUTSIDE RECORDS SUMMARY | 2022-07-02 21:53 | XMS_ITS | Encounter Summary ---
:2001 Author Organization [facility] Address [address] [place] [address] Care Team Providers Name Role Phone System, [...] EKG 12 LEAD (10/27/2008 1:47 PM CDT) [facility] Method Time Signature Ventricular Rate 111 BPM RADIOLOGY RESULTS Atrial Rate 111 BPM RADIOLOGY RESULTS [place] Interval 126 ms RADIOLOGY RESULTS QRS Duration 72 ms RADIOLOGY RESULTS QT 330 ms RADIOLOGY RESULTS QTc 448 ms RADIOLOGY RESULTS P [place] 44 degrees RADIOLOGY RESULTS R AXIS 86 degrees RADIOLOGY RESULTS T [place] 50 degrees RADIOLOGY RESULTS Interpretation * Pediatric [...] on filedocumented in this encounter Care Teams Tank Welder Relationship Specialty Start Date End Date System, Provider Not In PCP - General 06/20/1111/04 documented as of this encounter
--- OUTSIDE RECORDS SUMMARY | 2022-07-02 21:53 | XMS_ITS | Encounter Summary ---
:2001 Author Organization [place] Address [facility] [address] Care Team Providers Name Role Phone Unavailable Primary Care Provider Unavailable Encounter Details Date Type Department Care Team Description 10/27/2008 Office Visit-[facility] Elmer Meneses Explorer Pediatric MD [facility] XXX RESIGNED XXX [address] [facility] 12th [facility] [place] [address] [place], [place] [phone] (Wo rk) [address] [phone] Social History Tobacco Use Types Packs/Day Years Used Date Smoking Tobacco: Never Assessed Sex Assigned at Date Recorded Female 12/02/2020 1:42 PM CDT documented as of this encounter Progress Notes Elmer Meneses - 10/27/2008 1:00 PM CDT Insecticide Expert: Elmer Meneses Status: Final - Signature Encounter: 27 Oct 2008 Type: Peds Cardiology Letter Division of Pediatric Cardiology Department of Pediatrics [place] Mail Code [address] [place] [address] Office: [phone] Pediatric Specialty Clinic - [facility] [place] [facility] Fourth Floor, Clinic [address] [place] [address] October 27, 2008 David Gibbs MD [facility] [address] , [address] [place] [address] RE: Dakota Casiano : 2000 TAWNYA: 10/27/[address] Gibbs: On October 27, 2008, I had the pleasure of evaluating your patient, Dakota Casiano, at the Pediatric Cardiology Clinic at the [facility]. As you know, Dakota is a jyejr-nztx-kht young girl who was referred to our [...] at home with her parents and her eyc-rkoa-zph brother. Her only medication is omeprazole for some nonspecified GI symptoms as well as prophylactic dose of amoxicillin that I understand was instituted because of her frequent infections. On her physical examination, Dakota Willoughby is a petite but otherwise a normally developing gloye-axnn-zep young girl. She is not in any [...] me at the PediatricCardiology Clinic of the [facility]. Sincerely Elmer Meneses MD Pediatric Cardiology LKK:bl cc: Family of Dakota Casiano [address] [place] [phone] Electronically signed by:Elmer Meneses M.D. Nov 01 2008 4:57PM VP REVENUE CYCLE Author documented in this encounter Plan of Treatment Not on filedocumented as of this encounter Visit Diagnoses Not on filedocumented in this encounter
--- OUTSIDE RECORDS SUMMARY | 2022-07-02 21:53 | XMS_ITS | Encounter Summary ---
:2001 Author Organization [facility] Address [address] [place] [address] Care Team Providers Name Role Phone Unavailable [...] Unknown, Provider - 10/27/2008 1:00 PM CDT Wardrobe Assistant: Desire Brand Status: Final Encounter: 27 Oct 2008 Type: Rooming Note Informant Parent is informant unless otherwise noted. Reason For Visit tackycardia Do you have any other appointments, tests or procedures within the [facility] system for this same day? No. Pain [...] By: Desire Brand CMA; 10/27/2008 1:51 PM EDGE MOLDER. documented in this encounter Plan of Treatment Not on filedocumented as of this encounter Visit Diagnoses Not on filedocumented in this encounter
--- OUTSIDE RECORDS SUMMARY | 2022-07-02 21:53 | XMS_ITS | Encounter Summary ---
:2001 Author Organization [place] Address [address] [place] [address] Care Team Providers Name Role Phone Unavailable Primary Care Provider Unavailable Encounter Details Date Type Department Care Team Description 08/25/2003 Emergency room Andreas Lopez MD [address] [facility] [address]12 [place] [address] (Wo rk) Social History Tobacco Use Types Packs/Day Years Used Date Smoking Tobacco: Never Assessed Sex Assigned at Date Recorded Female 12/02/2020 1:42 PM CDT documented as of this encounter ED Notes Andreas Lopez - 08/25/2003 12:00 AM ASTHMA EDUCATOR : 01 CHIEF COMPLAINT: Ingestion. Dakota Casiano [...] EM#[id number] _ ANDREAS LOPEZ MD MT: Document: [id number] [place], [place] Name: DAKOTA CASIANO EMERGENCY ROOM ENCOUNTER Page 2 of 2 LCN: ERC DSC: 08/25/2003 [place], [place] Name: MR#: : Admit Date: DAKOTA CASIANO [id number] 2000 08/25/2003 Doctor: ANDREAS LOPEZ MD EMERGENCY ROOM ENCOUNTER Page 1 of 2 documented in this encounter Plan of Treatment Not on filedocumented as of this encounter Visit Diagnoses Not on filedocumented in this encounter
--- OUTSIDE RECORDS SUMMARY | 2022-07-02 21:53 | XMS_ITS | Encounter Summary ---
:2001 Author Organization [place] Address [facility] [place] [address] Care Team Providers Name Role Phone Unavailable Primary Care Provider Unavailable Encounter Details Date Type Department Care Team Description 04/20/2004 Results Only David Hannah MD [facility] [address] [facility] [address] [place], [place] [address] (Wo rk) Social History Tobacco [...]
--- OUTSIDE RECORDS SUMMARY | 2022-07-02 21:53 | XMS_ITS | Encounter Summary ---
:2001 Author Organization [facility] Address [address] [place] [address] Care Team Providers Name Role Phone Unavailable [...] Unknown, Provider - 11/05/2008 8:15 AM CDT Geological Engineering Teacher: Desire Brand Status: Final Encounter: 05 Nov 2008 Type: Rooming Note Informant Parent is informant unless otherwise noted. Reason For Visit not gaining weight Do you have any other appointments, tests or procedures within the [facility] system for this same day? No. Pain [...] By: Desire Brand CMA; 11/05/2008 8:43 AM SUPERVISOR OFFSET PLATE PREPARATION. documented in this encounter Plan of Treatment Not on filedocumented as of this encounter Visit Diagnoses Not on filedocumented in this encounter
--- OUTSIDE RECORDS SUMMARY | 2022-07-02 21:53 | XMS_ITS | Encounter Summary ---
:2001 Author Organization [facility] Address [address] [place] [address] Care Team Providers Name Role Phone No Primary/Referring, Phy Primary Care Provider Unavailable Reason for Referral Consult/Transfer Care (Routine) - Closed Specialty Diagnoses / Procedures Referred By Contact Refer red To Contact Diagnoses Acute nonintractable headache, unspecified headache type Mónica Bowden PA-C [address] [place] [address] Referral ID Status Reason Start Date Expiration Date Visits Requ ested Visits Authorized [id number] Closed 08/07/2019 11/05/2020 1 1 Scheduling Instructions Your provider has [facility] an [facility]. You may call [phone], option 2 to schedule your appointment. If you prefer, a electoral officer will contact you within the next 3 business days to assist you in setting up this appointment. We s uggest you call your health insurance company about your coverage and benefits for thi s appointment. ORT UTILITY WORKER Consult/Transfer Care (Routine) - Closed Specialty Diagnoses / Procedures Referred By Contact Refer red To Contact Diagnoses Acute nonintractable headache, unspecified headache type Mónica Bowden PA-C [address] [place] [address] Referral ID Status Reason Start Date Expiration Date Visits Requ ested Visits Authorized [id number] Closed 08/07/2019 11/05/2020 1 1 Scheduling Instructions Your provider has recommended an appoint ment with [facility] Neurology. You may call [phone] to schedule your appoi ntment. If you prefer, a electoral officer will contact you within the next 3 business d ays to assist you in setting up this appointment. We suggest you call your [employer] insurance company about your coverage and benefits for this appointment. ORT UTILITY WORKER Reason for Visit Reason Comments Headache Encounter Details Date Type Department Care Team Description 08/07/2019 Emergency [facility] Emergency Dept Mónica Bowden PA-C Acute nonintractable headache, unspecifi ed headache type (Primary Dx); [address] [facility] Scoliosis, unspecified scoliosis type, u nspecified spinal region; [place] [address] [place], [place] H/O spinal fusion [phone] Social History Tobacco Use Types Packs/Day Years Used Date Smoking Tobacco: Never Smokeless Tobacco: Never Sex Assigned at Date Recorded Not on file documented as of this encounter Last Filed Vital Signs Vital Sign Reading Time Taken Comments Blood Pressure 102/64 08/07/2019 12:32 PM AIRPORT UTILITY WORKER Pulse 90 08/07/2019 12:32 PM AIRPORT UTILITY WORKER Temperature 36.7 ??C (98 ??F) 08/07/2019 12:32 PM AIRPORT UTILITY WORKER Respiratory Rate 16 08/07/2019 12:32 PM AIRPORT UTILITY WORKER Oxygen Saturation 100% 08/07/2019 12:32 PM AIRPORT UTILITY WORKER Inhaled Oxygen Concentration - - Weight - [...] or weakness - any other worrisome symptoms ORT UTILITY WORKER documented in this encounter Medications at Time [...] tablet MOUTH DAILY X30 DAYS: SCHEDULE APPT [phone] ketorolac (TORADOL) 10 MG Take 1 Tablet by 12 Tablet 0 0 10/201908/10/2019 tablet mouth every 6 hours as needed for Pain for up to 3 days. documented as of this encounter ED Notes Holly Rosado RN - 08/07/2019 3:57 PM CST [facility] ED Nursing Discharge Note Vital Signs: BP: [...] instructions--follow up as directed. ---End of Report--- ORT UTILITY WORKER Mónica Bowden PA-C - 08/07/2019 1:38 PM CST Images from the original note were not included. [facility] Emergency Medicine Visit Note Chief Complaint: Headache [...] on his/her behalf by Abby England, a clinical laboratory medical director. The creation of this record isbased on [...] instructions and were discharged in satisfactory condition. [AL] ED Course User Index [AL] Mónica Bowden PA-C Clinical Impressions as of Aug 07 1504 Acute nonintractable headache, unspecified headache type ORT UTILITY WORKER documented in this encounter Plan of [...] Antolin Rojo RN - 08/07/2019 12:43 PM AIRPORT UTILITY WORKER Pt c/o a headache that started a couple of days ago along with dizziness and nausea. Pts mom reportsthat the pt has had several spinal surgeries and is concerned that her sx may be related, however, pt has seen her Spine surgeon several times regarding her sx. Pt has been taking Aleve, Tylenol without relief. ORT UTILITY WORKER documented in this encounter Administered Medications Inactive Administered Medications - up to 3 most recent administrations Medication Order MAR Action Action Date Dose Rate Site 0.9% sodium chloride bolus 1,000 Started 08/07/2019 2:17 PM AIRPORT UTILITY WORKER 1, 000 mL mL 1,000 mL, Intravenous, Administer over 0.5 Hours, ONCE, On Sat08/07/19 at 1400, For 1 dose ketorolac (TORADOL) injection 15 mg Given 08/07/2019 2:16 PM AIRPORT UTILITY WORKER 15 mg 15 mg, Intravenous, ONCE, On Sat08/07/19 at 1400, For 1 dose, . metoclopramide 10 mg in NaCl 0.9% 50 mL Started 08/07/2019 2:17 PM AIRPORT UTILITY WORKER 10 mg Intravenous, ONCE, 1 dose, On Sat08/07/19 at 1400 documented in this encounter Active and Recently Administered Medications Times are shown in AIRPORT UTILITY WORKER. Scheduled Medication Order 08/05/2019 08/06/2019 08/07/2019 0.9% [...] 1400 documented in this encounter Care Teams Lbd Teacher Relationship Specialty Start Date End Date No Primary/Referring, Phy PCP - General 05/11/19 documented as of this encounter
--- OUTSIDE RECORDS SUMMARY | 2022-07-02 21:53 | XMS_ITS | Encounter Summary ---
:2001 Author Organization [facility] Address [address] [place] [address] Care Team Providers Name Role Phone Unavailable Primary Care Provider Unavailable Encounter Details Date Type Department Care Team Description 11/05/2008 Office Visit-[facility] Urbano Price Sco tt, [facility] [address] [place] [address] [place] [address], [facility] [place] [facility] [place] [place] [address] Social History Tobacco Use Types Packs/Day Years Used Date Smoking Tobacco: Never Assessed Sex Assigned at Date Recorded Female 12/02/2020 1:42 PM CDT documented as of this encounter Progress Notes Urbano Price - 11/05/2008 8:15 AM CDT Wet Process Miller Head: Urbano Price Status: Final - Signature Encounter: 05 Nov 2008 Type: Peds Letter Division of Pediatric Endocrinology Department of Pediatrics [place] Mail Code [address] [place] [address] Office: [phone] [facility] First Floor, [address] [place] [address] November 05, 2008 David Gibbs MD [facility] [address] [place] [address] RE: Dakota Casiano : 2000 TAWNYA: 11/05/[address] Gibbs: I had the pleasure of seeing your patient, Dakota Casiano, in the Pediatric Endocrinology Clinic at the [facility] on November 05, 2008, in consultation [...] described above. Skin: She has an irregular xmyn-jr-lxkv on her left arm. Neurologic: Occasional complaints [...] symmetric. Skin was normal with an irregular ycur-ul-qdax at the medial side of her left [...] referral to our specialists here at the [facility]. They can review her current testing to help determine if any further testing would be appropriate. Plan: 1. I would like to obtain the thyroid functions and antithyroid antibodies at a future blood draw. 2. Obtain a morning cortisol before 9:00 a.m. These results can be faxed to my attention at [phone]. 3. Referral to Pediatric Gastroenterology. No followup [...] or concerns. Sincerely, Urbano Price M.D., Ph.D. Forest Fire Specialist Supervisor Pediatric Endocrinology BSM:ms cc: Family of Dakota Casiano [address] [place] [address] Electronically signed by:Urbano Price M.D. Nov 08 2008 11:48PM CREDIT CONTROL ADMINISTRATOR documented in this encounter Plan of Treatment Not on filedocumented as of this encounter Visit Diagnoses Not on filedocumented in this encounter
--- OUTSIDE RECORDS SUMMARY | 2022-07-02 21:53 | XMS_ITS | Encounter Summary ---
:2001 Author Organization [place] Address [address] [facility] [place] [address] Care Team Providers Name Role Phone Unavailable Primary Care Provider Unavailable Encounter Details Date Type Department Care Team Description 10/27/2008 Results Only [facility] Results XXX RESIGNED XXX [address] [facility] [address] [place], [place] [address] (Wo rk) Social History Tobacco Use Types Packs/Day Years Used Date Smoking Tobacco: Never Assessed Sex Assigned at Date Recorded Female 12/02/2020 1:42 PM CDT documented as of this encounter Plan of Treatment Not on filedocumented as of this encounter Procedures Procedure Name Priority Date/Time Associated Diagnosis Comme [facility] ECHO Routine 10/27/2008 2:54 PM Results f or this XTHORACIC,MIRZA CDT procedure are in ANOM,COMPLETE the results section. documented in this encounter Results ECHO XTHORACIC,MIRZA ANOM,COMPLETE (10/27/2008 2:54 PM CDT) Component Value Ref Test Analysis Performed At [facility] Method Time Signature IMAGECAST PEDIATRIC ECHOCARDIOGRAM ?? RA DIOLOGY RESULT [facility] ??Echocardiogram Lab RESULTS ? Age: ??2 ? Wt: ? Ht: ? BSA: ? BP: ? Xcelera ? Cutter Down: ??KH INDICATION: ??Murmur ?? A cardiac ultrasound [...] to the left atrium. Amaury Valencia MD-Pager [phone] ?? Marli Charles MD-Pager [phone] ?? Arcadio Alarcon MD-Pager [phone] or [phone] Berlin Conn MD-Pager [phone] ?? Brady Hernandez MD-Pager [phone] Rossi Simmons MD-Pager [phone] Specimen (Source) Anatomical Collection Method Collection Time Re ceived Time Location / / Volume Laterality 10/27/2008 2:54 PM CDT Elmer Meneses MD PROCEDURES Performing Organization Address City/State/ZIP Code Phon e Number RADIOLOGY RESULTS documented in this encounter Visit Diagnoses Not on filedocumented in this encounter
--- OUTSIDE RECORDS SUMMARY | 2022-07-02 21:53 | XMS_ITS | Encounter Summary ---
:2001 Author Organization [facility] Address [address] [place] [address] Care Team Providers Name Role Phone Unavailable Primary Care Provider Unavailable Encounter Details Date Type Department Care Team Description 07/01/2005 Emergency room [place] MD [address] [place], [place] [address] (Wo rk) Social History Tobacco Use Types Packs/Day Years Used Date Smoking Tobacco: Never Assessed Sex Assigned at Date Recorded Female 12/02/2020 1:42 PM CDT documented as of this encounter Progress Notes Interface, Telecommunications Switch Technician - 07/01/2005 11:59 PM AGENCY DIRECTOR PRELIMINARY ATTENDING PHYSICIAN: David Gibbs MD CHIEF [...] for the next 1- 2 days. 5. [place] diet tonight, 7-Up, Katherine Lian, Popsicles, crackers, dry toast, etc. advance if she has nofurther vomiting. 6. Recheck with her physician in 2 to 3 days. DIAGNOSIS: Closed head injury, concussion. NEW LUNA MD MT: KARISSA Name: DAKOTA VASQUEZ MRN: [id number] Account: [id number] : 2000 Visit Date: 07/01/2005 Document: [id number] cc: David Gibbs MD CY DIRECTOR documented in this encounter Plan of Treatment Not on filedocumented as of this encounter Procedures Procedure Name Priority Date/Time Associated Diagnosis Comme nts HC CT HEAD WO Routine 07/01/2005 2:59 PM Results for this CONTRAST AGENCY DIRECTOR procedure are i n the results section. documented in this encounter Results CT SCAN HEAD/BRAIN (07/01/2005 2:59 PM AGENCY DIRECTOR) Anatomical Region Laterality Modality Other Specimen (Source) Anatomical Collection Method Collection Time Re ceived Time Location / / Volume Laterality 07/01/2005 2:59 PM AGENCY DIRECTOR Impressions 07/02/2005 8:[address] HEAD WITHOUT CONTRAST - 07/01/2005 ?? [...]
--- OUTSIDE RECORDS SUMMARY | 2022-07-02 21:54 | XMS_ITS | Encounter Summary ---
:2001 Author Organization [facility] Address [address] [place] [address] Care Team Providers Name Role Phone Unassigned, Provider Primary Care Provider Unavailable Reason for Visit Procedure/Equipment (Routine) - Incomplete Specialty Diagnoses / Procedures Referred By Contact Refer red To Contact Diagnoses Bilateral ankle pain, unspecified chronicity Desire Acevedo MD Procedures XR Ankle Rt [address] [place] [address] [place], [place] [address] Referral ID Status Reason Start Date Expiration Date Visits V isits Requested Authorized [id number] Incomplete 03/21/2018 06/20/2019 1 1 Encounter Details Date Type Department Care Team Description 03/21/2018 Imaging [facility] Desire Acevedo, Bilateral ankle pain, [address] [facility] unspecified chronicity [place], [place] [address] [address] [facility] [phone] [place] [address] (Wo rk) Social History Tobacco Use Types [...] city documented in this encounter Care Teams Commanding Officer Homicide Squad Relationship Specialty Start Date End Date Unassigned, Provider PCP - General 01 05/10/[address] [place] [address] documented as of this encounter
--- OUTSIDE RECORDS SUMMARY | 2022-07-02 21:54 | XMS_ITS | Encounter Summary ---
:2001 Author Organization [facility] Address [address], [place] [address] Care Team Providers Name Role Phone Unassigned, Provider Primary Care Provider Unavailable Reason for Visit Procedure/Equipment (Routine) - Incomplete Specialty Diagnoses / Procedures Referred By Contact Refer red To Contact Diagnoses Arthralgia of both ankles Derian Chandra MD Procedures MR Ankle Rt WO IV Cont [address] [facility] [address] [place] [address] Referral ID Status Reason Start Date Expiration Date Visits V isits Requested Authorized [id number] Incomplete 11/29/2018 02/28/2020 1 1 Encounter Details Date Type Department Care Team Description 11/29/2018 Ancillary [facility] MRI Derian Chandra, Arthralgia of both Procedure [address] [place] [address] [phone] Social History Tobacco Use Types Packs/Day Years [...] ankles documented in this encounter Care Teams Natural Resource Specialist Relationship Specialty Start Date End Date Unassigned, Provider PCP - General 01 05/10/[address] [place] [address] documented as of this encounter
--- OUTSIDE RECORDS SUMMARY | 2022-07-02 21:54 | XMS_ITS | Encounter Summary ---
:2001 Author Organization [facility] Address [address], [place] [address] Care Team Providers Name Role Phone Unassigned, Provider Primary Care Provider Unavailable Reason for Visit Procedure/Equipment (Routine) - Incomplete Specialty Diagnoses / Procedures Referred By Contact Refer red To Contact Procedures Keily Silver MD XR Portable Abd Flat [address] [place] [address] Referral ID Status Reason Start Date Expiration Date Visits V isits Requested Authorized [id number] Incomplete 01/30/2016 04/30/2017 1 1 Encounter Details Date Type Department Care Team Description 01/30/2016 Imaging [facility] [address] [place], [place] [id number] Social History Tobacco Use Types Packs/Day Years [...] on filedocumented in this encounter Care Teams Crab Backer Relationship Specialty Start Date End Date Unassigned, Provider PCP - General 01 05/10/[address] [place] [address] documented as of this encounter
--- OUTSIDE RECORDS SUMMARY | 2022-07-02 21:54 | XMS_ITS | Encounter Summary ---
:2001 Author Organization [facility] Address [address], [place] [address] Care Team Providers Name Role Phone Unassigned, Provider Primary Care Provider Unavailable Reason for Visit Reason Onset Date Comments QUESTIONS, GENERAL 04/30/2016 Encounter Details Date Type Department Care Team Description 04/30/2016 Telephone [facility] Meagan Haile MD QUESTIONS, GENERAL [address] [facility]. [address] [place] [address] [place] [address] [phone] (Wo rk) Social History Tobacco Use Types [...] [facility] since 2011. Left the phone number [phone] for mom to call and update us/schedule appointments as needed. Records sent to [facility]. documented in this encounter Plan of Treatment Not on filedocumented as of this encounter Visit Diagnoses Not on filedocumented in this encounter Care Teams Military Professional Relationship Specialty Start Date End Date Unassigned, Provider PCP - General 01 05/10/[address] [place] [address] documented as of this encounter
--- OUTSIDE RECORDS SUMMARY | 2022-07-02 21:54 | XMS_ITS | Encounter Summary ---
:2000 [facility] Address [address] [place] [address] Care Team Providers Name Role Phone Unassigned, Provider Primary Care Provider Unavailable Reason for Visit Reason Comments CONSULT Encounter Details Date Type Department Care Team Description 05/07/2012 Telephone [facility] Meagan Haile MD CONSULT [id number]. [address] [place] [address] [place] [address] (Wo rk) Social History Tobacco Use Types Packs/Day Years Used Date Smoking Tobacco: Never Assessed Sex Assigned at Date Recorded Not on file documented as of this encounter Nursing Notes Maggi Bloom - 05/09/2012 1:30 PM CDT Summary letter, referral, and [place] [facility] records faxed to Attn: Pediatric GI, fax # . Fax confirmation received. Copy of records sent to [facility]. Pt's mother notified that letter of referral was sent to [facility] today. Meagan Haile MD - 05/07/2012 3:30 PM CDT Yamini. The info is in the note. Please generate a letter. Thank you. Yamila Sanford - 05/07/2012 11:17 AM CDT Pt mom calling to check on status of referral to adger. See phone note regarding this issue dated 04/15/2012 for details. documented in this encounter Miscellaneous Notes Letter - 05/07/2012 12:00 AM CDT Images from the original note were not included. [address] [address] May 09, 2012 Patient: Dakota Casiano MR Number: [id number] Date of : 2000 Date of Visit: 03/31/2012 Dear [facility] Pediatric Gastroenterology: I am referring my patient, [...] fructose abnormal tests. She's been followed by [facility] where she was diagnosed with IgG [...] esophagitis. Upper GI done in 2001 at [facility] showed grade 3 gastroesophageal reflux with [...] Receive flu shot today. Spirometry done by die maker trim less than 6 months ago. Allergies: Continue to use Claritin. Also with die maker trim annually. . I appreciate your assistance in her care and look forward to your findings and recommendations. Sincerely, Meagan Haile MD ERCIAL COLLECTIONS DRIVER documented in this encounter Plan of Treatment Not on filedocumented as of this encounter Visit Diagnoses Not on filedocumented in this encounter Care Teams Welcome Center Agent Relationship Specialty Start Date End Date Unassigned, Provider PCP - General 01 05/10/[address] [place] [id number] documented as of this encounter
--- OUTSIDE RECORDS SUMMARY | 2022-07-02 21:54 | XMS_ITS | Encounter Summary ---
:2000 [facility] Address [address], [place] [address] Care Team Providers Name Role Phone Unassigned, [...] on filedocumented in this encounter Care Teams Senior Cost Accountant Relationship Specialty Start Date End Date Unassigned, Provider PCP - General 01 05/10/[address] [place] [id number] documented as of this encounter
--- OUTSIDE RECORDS SUMMARY | 2022-07-02 21:54 | XMS_ITS | Encounter Summary ---
:2000 Author Organization [facility] Address [address] [place] [address] Care Team Providers Name Role Phone Unassigned, Provider Primary Care Provider Unavailable Reason for Referral Therapies (Routine) - Closed Specialty Diagnoses / Procedures Referred By Contact Refer red To Contact Diagnoses Hamstring strain, unspecified laterality, initial encounter David Smith MD [address] [facility] [address] [place] [address] Referral ID Status Reason Start Date Expiration Date Visits Requ ested Visits Authorized [id number] Closed 01/28/2018 03/29/2018 1 1 Scheduling Instructions Your provider has recommended an appoint ment with [facility]. You may call [phone] to schedule your appoi ntment. If you do not schedule an appointment within the next 1 to 3 business days, we will call you to help arrange your appointment. We suggest you call your [employer] insurance company about your coverage and benefits for this appointment. Reason for Visit Reason Comments Knee Pain or Injury lt distal thigh and knee elmer n 6-24-18 lacrosse Encounter Details Date Type Department Care Team Description 01/28/2018 Office Visit [facility] Orthopedic David Smith, Jermaine ball, Urgent Care unspecified [address] [facility] [address] [facility] [place] [address] DR castillo, initial [place], [place] [address] [place], [place] encounter (Primary [phone] Dx) [phone] (Wo rk) Social History Tobacco Use Types [...] 01/28/2018 3:35 PM CD T Growth Chart: [facility] (Girls, 2-20 Years) documented in this encounter Patient Instructions Patient InstructionsMilla Guardado OA-C - 01/28/2018 2:[address] David Smith MD Sports & Orthopaedic Medicine [facility] Medication Requests: Prescriptions are not filled on Weekends or on Weekdays after 3:00PM For all medication refills: Request a refill using [employer] or contact your Pharmacy [facility] Nurse Line: Please contact [facility] Nurse line for all medical requests and questions at [phone] MRI Scheduling: To schedule an MRI at [facility] please call [phone] Paperwork Requests: Questions regarding FMLA or disability paperwork please call [phone] Workers??? Compensation: Please contact our department for any Work Comp concerns at Email: [email or web address] Start therapy for hamstring strain Athlete visit: play when pain free Avoid activities that cause pain. Increase activities as tolerated by pain. F/u 4 weeks if not back to normal. documented in this encounter Progress Notes David Smith MD - 01/28/2018 2:40 PM CDT [facility] 01/28/2018 Chief Complaint: Left [...] Primary documented in this encounter Care Teams Safety Representative Relationship Specialty Start Date End Date Unassigned, Provider PCP - General 01 05/10/[address] [place] [id number] documented as of this encounter
--- OUTSIDE RECORDS SUMMARY | 2022-07-02 21:54 | XMS_ITS | Encounter Summary ---
:2000 [facility] Address [address] [place] [address] Care Team Providers Name Role Phone Unassigned, [...] Procedure Name Priority Date/Time Associated Diagnosis Comme [facility] SURGICAL PATH Routine 12/12/2015 11:12 AM Results for this CDT procedure are i n the results section . documented in this encounter Results Surgical Path (12/12/2015 11:12 AM CDT) [facility] gist Method Time Signature Histology Patient [...] on one slide. ?? Nettie Farmer MD [facility] Department of Pathology [address] [place] [id number] Specimen (Source) Anatomical Collection Method Collection Time Re ceived Time Location / / Volume Laterality 12/12/2015 11:12 AM CDT [facility] Performing Organization Address City/State/ZIP Code Phon e Number [address] [address] documented in this encounter Visit Diagnoses Not on filedocumented in this encounter Care Teams Kiln Packer Relationship Specialty Start Date End Date Unassigned, Provider PCP - General 01 05/10/19 [address] [place] [address] documented as of this encounter
--- OUTSIDE RECORDS SUMMARY | 2022-07-02 21:54 | XMS_ITS | Encounter Summary ---
:2000 Author Organization [facility] Address [address] [place] [address] Care Team Providers Name Role Phone Unassigned, Provider Primary Care Provider Unavailable Encounter Details Date Type Department Care Team Description 12/09/2012 Notes/Orders [facility] [address] [address] [address] [place] [address] [place], [place] [id number] (Wo rk) Social History Tobacco Use Types [...] on filedocumented in this encounter Care Teams Laborer Shellfish Processing Relationship Specialty Start Date End Date Unassigned, Provider PCP - General 01 05/10/[address] [place] [address] documented as of this encounter
--- OUTSIDE RECORDS SUMMARY | 2022-07-02 21:54 | XMS_ITS | Encounter Summary ---
:2000 Author Organization [facility] Address [address] [address] Care Team Providers Name Role Phone Unassigned, Provider Primary Care Provider Unavailable Reason for Visit Reason Comments RESULTS, TEST Encounter Details Date Type Department Care Team Description 12/03/2012 Notes/Orders [facility] [address] [address] [place] [address] [place] [address] [phone] (Wo rk) Social History Tobacco Use Types Packs/Day Years Used Date Smoking Tobacco: Never Assessed Sex Assigned at Date Recorded Not on file documented as of this encounter Progress Notes Robyn Grant - 12/03/2012 5:04 PM CDT mail received today from [facility], clinical doc, summary and recommendations regarding pt and future care. forward to provider folder. (Dr. Haile) documented in this encounter Plan of Treatment Not on filedocumented as of this encounter Visit Diagnoses Not on filedocumented in this encounter Care Teams Finance Professional Relationship Specialty Start Date End Date Unassigned, Provider PCP - General 01 05/10/[address] [place] [phone] documented as of this encounter
--- OUTSIDE RECORDS SUMMARY | 2022-07-02 21:54 | XMS_ITS | Encounter Summary ---
:2000 Author Organization [employer] Address [address], [place] [address] Care Team Providers Name Role Phone Unassigned, Provider Primary Care Provider Unavailable Encounter Details Date Type Department Care Team Description 12/01/2018 Orders Only [facility] Aime Zaidi Vitamin D deficiency; [address] Zabala MD Tuberculosis of spine; [place] [address] Scoliosis; [place], [place] Vitamin D def iciency; [address] Tuberculosis of spine; [phone] Scoliosis; (Work) Scoliosis; [phone] Scoliosis (Fax) Social History Tobacco Use Types Packs/Day Years Used Date Smoking Tobacco: Never Smokeless Tobacco: Never Sex Assigned at Date Recorded Not on file documented as of this encounter Progress Notes Mariluz Nieto RN - 12/01/2018 2:03 PM CDT Duplicate labs. Pt seen at [facility]. Mariluz Nieto RN 12/11/2018, 12:51 PM documented [...] Aime Zaidi MD LAB_1 Performing Organization Address [facility]/ZIP [facility] e Number [address] [address] [place] [address], [facility] Sodium, Urine Random (12/01/2018 3:06 PM CDT) athologist Signature Sodium, Urine 111 mmol/L 12/01/2018 [facility] Random 10:54 PM CDT HOSPITAL Specimen Anatomical Collection Method Collection Time Receive d Time (Source) Location / / Volume Laterality Urine Non-blood 12/01/2018 3:06 PM 9 3:06 Collection / CDT PM CDT Unknown Aime Zaidi MD LAB_1 Performing Organization Address City/[facility]/ZIP [facility] e Number [address] [address] [place] [address], [facility] [phone] Calcium/Creatinine Ratio, Urine (12/01/2018 3:06 PM CDT) [...] Organization Address City/State/ZIP Code Phon e Number [facility] [address] [place] [address] [facility] [address] [place] [address], [facility] Thyroid Peroxidase (TPO) Ab (12/01/2018 2:53 PM CDT) Analysis Performed At Patho logist Time Signature Thyroid 0.7 0.0 - 9.0 12/03/2018 [facility] Peroxidase IU/mL 2:58 AM CDT LABORATORIES (TPO) Antibody Comment: Performed by [facility], [address] [place] [id number] [email or web address], Tenzin Call do, MD, Lab. Director Specimen Anatomical Collection Method / Collection Time Recei donal Time (Source) Location / Volume Laterality Blood Lab OP Venipuncture 12/01/2018 2:53 12/01 3:17 / Unknown PM CDT PM CDT Aime Zaidi MD LAB_1 Performing Organization Address City/[facility]/ZIP Code Phon e Number [address] [phone] Insulin-Like Growth Factor (12/01/2018 2:53 PM CDT) [facility] Method Time Signature Insulin-Like 323 120 [...] b etween -2.0 and +2.0. Performed by [facility], [address] [place] [address] [email or web address], Tenzin Holguin MD, Lab. Director Specimen Anatomical Collection Method / Collection Time Recei donal Time (Source) Location / Volume Laterality Blood Lab OP Venipuncture 12/01/2018 2:53 12/01 3:17 / Unknown PM CDT PM CDT Aime Zaidi MD LAB_1 Performing Organization Address City/State/ZIP Code Phon e Number [place] [phone] T3, Free, Serum (12/01/2018 2:53 PM CDT) P athologist Signature T3, Free 3.3 1.7 - 3.7 12/01/2018 [facility] pg/mL 4:07 PM CDT HOSPITAL Specimen Anatomical Collection Method / Collection Time Recei donal Time (Source) Location / Volume Laterality Blood Lab OP Venipuncture 12/01/2018 2:53 12/01 3:17 / Unknown PM CDT PM CDT Aime Zaidi MD LAB_1 Performing Organization Address City/[facility] Phon e Number [address] [address] [place] [address], [facility] [phone] Free T4 (12/01/2018 2:53 PM CDT) athologist Signature T4, Free 0.8 0.7 - 1.5 12/01/2018 [facility] ng/dL 4:07 PM CDT HOSPITAL Specimen Anatomical Collection Method / Collection Time Recei donal Time (Source) Location / Volume Laterality Blood Lab OP Venipuncture 12/01/2018 2:53 12/01 3:17 / Unknown PM CDT PM CDT Aime Zaidi MD LAB_1 Performing Organization Address [facility]/ZIP Code Phon e Number [address] [address] [place] [address], [facility] [phone] TSH (12/01/2018 2:53 PM CDT) athologist Signature TSH, Sensitive 1.51 0.30 - 12/01/2018 [facility] 4.50 4:07 PM CDT HOSPITAL uIU/mL Specimen Anatomical Collection Method / Collection Time Recei donal Time (Source) Location / Volume Laterality Blood Lab OP Venipuncture 12/01/2018 2:53 12/01 3:17 / Unknown PM CDT PM CDT Aime Zaidi MD LAB_1 Performing Organization Address City/[facility]/ZIP [facility] Phon e Number [address] [address] Human Growth Hormone (12/01/2018 2:53 PM CDT) athologist Signature Human Growth 3.64 0.05 - 12/03/2018 [facility] Hormone 17.30 11:20 AM CDT LABORATORIES ng/mL Comment: Performed by [facility], [address] [place] [id number] [email or web address], Tenzin Holguin MD, Lab. Director Specimen Anatomical Collection Method / Collection Time Recei donal Time (Source) Location / Volume Laterality Blood Lab OP Venipuncture 12/01/2018 2:53 12/01 3:17 / Unknown PM CDT PM CDT Aime Zaidi MD LAB_1 Performing Organization Address City/[facility]/ZIP Code Phon e Number [facility] [address] [phone] Estradiol (12/01/2018 2:53 PM CDT) athologist Signature Estradiol 13 pg/mL 12/02/2018 [facility] 12:09 PM CDT C[facility]AL LAB Specimen Anatomical Collection Method / Collection Time Recei donal Time (Source) Location / Volume Laterality Blood Lab OP Venipuncture 12/01/2018 2:53 12/01 3:17 / Unknown PM CDT PM CDT Narrative [facility] - 12/02/2018 12:09 PM CDT Expected values for menstruating females Follicular phase: 21-251 pg/mL Mid cycle phase: 38-649 pg/mL Luteal phase: 21-312 pg/mL Expected values for post menopausal fema les On HRT: <10-144 pg/mL Not on HRT: <10-28 pg/mL Aime Zaidi MD LAB_1 Performing Organization Address [facility] Phon e Number [facility] [address] [address] Prolactin (12/01/2018 2:53 PM CDT) P athologist Signature Prolactin 6.4 5.2 - 26.5 12/02/2018 [facility] ng/mL 12:09 PM CDT CENTRAL LAB Specimen Anatomical Collection Method / Collection Time Recei donal Time (Source) Location / Volume Laterality Blood Lab OP Venipuncture 12/01/2018 2:53 12/01 3:17 / Unknown PM CDT PM CDT Aime Zaidi MD LAB_1 Performing Organization Address [facility] Phon e Number [facility] [address] [address] FSH (12/01/2018 2:53 PM CDT) P athologist Signature FSH 5.1 mIU/mL 12/02/2018 [facility] 12:09 PM CDT CENTRAL LAB Specimen Anatomical Collection Method / Collection Time Recei donal Time (Source) Location / Volume Laterality Blood Lab OP Venipuncture 12/01/2018 2:53 12/01 3:17 / Unknown PM CDT PM CDT Narrative [facility] - 12/02/2018 12:09 PM CDT Expected values for mensturating females Follicular Phase: 3.0-8.1 mIU/mL Mid-Cycle Peak: 2.6-16.7 mIU/mL Luteal Phase: 1.4-5.5 mIU/mL Post Menopausal Females without HRT: 26. 8-133.4 mIU/mL Aime Zaidi MD LAB_1 Performing Organization Address [facility] Phon e Number [facility] [address] [address] DHEA Sulfate (12/01/2018 2:53 PM CDT) Analysis Performed At Patho logist Time Signature DHEA Sulfate 96 mcg/dl 12/02/2018 [facility] 12:07 PM CDT CENTRAL LAB Specimen Anatomical Collection Method / Collection Time Recei donal Time (Source) Location / Volume Laterality Blood Lab OP Venipuncture 12/01/2018 2:53 12/01 3:17 / Unknown PM CDT PM CDT Aime Zaidi MD LAB_1 Performing Organization Address [facility] e [employer] LAB [address] [address] LH (12/01/2018 2:53 PM CDT) athologist Signature LH 3 mIU/mL 12/02/2018 [facility] 12:26 PM CDT CENTRAL LAB Specimen Anatomical Collection Method / Collection Time Recei donal Time (Source) Location / Volume Laterality Blood Lab OP Venipuncture 12/01/2018 2:53 12/01 3:17 / Unknown PM CDT PM CDT Narrative [facility] - 12/02/2018 12:26 PM CDT Expected values for menstruating females Follicular Phase: 2-12 mIU/mL Mid-Cycle Peak: 8-89 mIU/mL Luteal Phase: 1-14 mIU/mL Expected values for postmenopausal femal es On HRT: 5-62 mIU/mL Aime Zaidi MD LAB_1 Performing Organization Address [facility] LAB [address] [address] Complete Blood Count-No Diff (12/01/2018 2:53 PM [...] Aime Zaidi MD LAB_1 Performing Organization Address City/[facility] [place] [address] C-Reactive Protein (12/01/2018 2:53 PM CDT) athologist Signature C-Reactive <0.1 0.0 - 0.7 12/01/2018 [facility] Protein mg/dL 3:49 PM CDT HOSPITAL Specimen Anatomical Collection Method / Collection Time Recei donal Time (Source) Location / Volume Laterality Blood Lab OP Venipuncture 12/01/2018 2:53 12/01 3:17 / Unknown PM CDT PM CDT Aime Zaidi MD LAB_1 Performing Organization Address [facility] [place] [address] [phone] Basic Metabolic Panel (12/01/2018 2:53 PM CDT) [...] PM CDT HOSPITAL GFR, Estimated >60 12/01/2018 [facility] mL/min/1.7 3:49 PM T [facility] 3m2 Comment: The GFR formula is valid only f or patients 18 years of age and older GFR, Est If >60 mL/min/1.73m2 12/01/2018 3 :49 PM CDT [facility] Gambian Comment: The GFR formula is valid only f or patients 18 years of age and older Glucose 77 70 - 100 mg/dL 12/01/2018 3:49 PM CDT [facility] Specimen Anatomical Collection Method / Collection Time Recei donal Time (Source) Location / Volume Laterality Blood Lab OP Venipuncture 12/01/2018 2:53 12/01 3:17 / Unknown PM CDT PM CDT Aime Zaidi MD LAB_1 Performing Organization Address City/State/ZIP Code Phon e Number [address] [address] LDL Cholesterol, Direct Measured (12/01/2018 2:53 PM CDT) athologist Signature LDL, Direct 33 <=130 mg/dL 12/01/2018 [facility] 3:49 PM T HOSPITAL Specimen Anatomical Collection Method / Collection Time Recei donal Time (Source) Location / Volume Laterality Blood Lab OP Venipuncture 12/01/2018 2:53 12/01 3:17 / Unknown PM CDT PM CDT Aime Zaidi MD LAB_1 Performing Organization Address City/State/ZIP Code Phon e Number [facility] [address] [place] [address] [address] [phone] Hgb A1C (12/01/2018 2:53 PM CDT) Patholo gist Method Time Signature Hemoglobin A1C 5.2 <=5.6 % 12/02/2018 [facility] 12:25 PM CDT CENTRAL LAB Specimen Anatomical Collection Method / Collection Time Recei donal Time (Source) Location / Volume Laterality Blood Lab OP Venipuncture 12/01/2018 2:53 12/01 3:17 / Unknown PM CDT PM CDT Aime Zaidi MD LAB_1 Performing Organization Address City/[facility]/ZIP Code Phon e Number [facility] [address] [address] C Telopeptide Beta Cross Linked (12/01/2018 2:53 PM CDT) P athologist Signature C-Telopeptide, 343 593 - 703 12/03/2018 [facility] Kkgr-Hmwkb-Mqm pg/mL 4:13 PM CDT LABORATORIES ked, Serum Comment: Postmenopausal Females: 104-1008 pg/mL REFERENCE INTERVAL: C-Telopeptide, Beta- Cross-Linked, Serum Access complete set of age- and/or gende r-specific reference intervals for this test in the [employer] Test Directory ([email or web address]). Performed by [facility], [address] [place] [address] [email or web address], Tenzin Holguin MD, Lab. Director Specimen Anatomical Collection Method / Collection Time Recei donal Time (Source) Location / Volume Laterality Blood Lab OP Venipuncture 12/01/2018 2:53 12/01 3:17 / Unknown PM CDT PM CDT Aime Zaidi MD LAB_1 Performing Organization Address City/[facility]/ZIP Code Phon e Number [facility] [address] [phone] Osmolality (12/01/2018 2:53 PM CDT) athologist Signature Osmolality 282 275 - 295 12/01/2018 [facility] Serum mOsm/kg 4:07 PM CDT HOSPITAL Specimen Anatomical Collection Method / Collection Time Recei donal Time (Source) Location / Volume Laterality Blood Lab OP Venipuncture 12/01/2018 2:53 12/01 3:17 / Unknown PM CDT PM CDT Aime Zaidi MD LAB_1 Performing Organization Address [facility] [place] [address] [address], [facility] (ABNORMAL) Calcium, Ionized WB (12/01/2018 2:53 PM [...] 3:17 / Unknown PM CDT PM CDT [facility] - 12/01/2018 3:20 PM CD T The reference range for Ionized Calcium is based on a pH of 7.4. Ionized Calcium concentration increases approximately 0. 05 mmol/L for each 0.1 pH unit decrease. Aime Zaidi MD LAB_1 Performing Organization Address [facility] Phon e Number [phone] [place] [address] Magnesium (12/01/2018 2:53 PM CDT) athologist Signature Magnesium 2.1 1.6 - 2.6 12/01/2018 [facility] mg/dL 3:49 PM CDT HOSPITAL Specimen Anatomical Collection Method / Collection Time Recei donal Time (Source) Location / Volume Laterality Blood Lab OP Venipuncture 12/01/2018 2:53 12/01 3:17 / Unknown PM CDT PM CDT Aime Zaidi MD LAB_1 Performing Organization Address [facility] Phon e Number [address] [address], [facility] [phone] Phosphorus (12/01/2018 2:53 PM CDT) P athologist Signature Phosphorus 4.1 2.9 - 5.0 12/01/2018 [facility] mg/dL 3:49 PM CDT HOSPITAL Specimen Anatomical Collection Method / Collection Time Recei donal Time (Source) Location / Volume Laterality Blood Lab OP Venipuncture 12/01/2018 2:53 12/01 3:17 / Unknown PM CDT PM CDT Aime Zaidi MD LAB_1 Performing Organization Address [facility] Phon e Number [address] [address], [facility] [phone] Vitamin D 25-Hydroxy, Total (12/01/2018 2:53 PM CDT) [facility] Method Time Signature Vitamin D, 44 30 - 80 12/02/2018 [facility] 25-OH, Total ng/mL 12:26 PM CDT CENTRAL LAB Specimen Anatomical Collection Method / Collection Time Recei donal Time (Source) Location / Volume Laterality Blood Lab OP Venipuncture 12/01/2018 2:53 12/01 3:17 / Unknown PM CDT PM CDT [facility] CENTRAL LAB - 12/02/2018 12:26 PM CDT Expected values for patients under 18 years of age Deficiency: <20 ng/mL Optimum: >19 ng/mL Aime Zaidi MD LAB_1 Performing Organization Address City/[facility]/ZIP Code Phon e Number [facility] [address] [address] Cortisol (12/01/2018 2:53 PM CDT) P athologist Signature Cortisol 6.7 2.9 - 19.4 12/01/2018 [facility] mcg/dL 4:07 PM CDT HOSPITAL Specimen Anatomical Collection Method / Collection Time Recei donal Time (Source) Location / Volume Laterality Blood Lab OP Venipuncture 12/01/2018 2:53 12/01 3:17 / Unknown PM CDT PM CDT [facility] - 12/01/2018 4:07 PM CD T Expected values AM (before 10am): 3.7-19.4 mcg/dL PM (after 5pm): 2.9-17.3 mcg/dL Aime Zaidi MD LAB_1 Performing Organization Address [facility] Phon e Number [address] [address] [place] [address], [facility] Alkaline Phosphatase, Total (12/01/2018 2:53 PM CDT) athologist Signature Alkaline 77 48 - 95 12/01/2018 [facility] Phosphatase U/L 3:49 PM CDT HOSPITAL Specimen Anatomical Collection Method / Collection Time Recei donal Time (Source) Location / Volume Laterality Blood Lab OP Venipuncture 12/01/2018 2:53 12/01 3:17 / Unknown PM CDT PM CDT Aime Zaidi MD LAB_1 Performing Organization Address [facility] Phon e Number [address] [address] [place] [address], [facility] Renin Activity (12/01/2018 2:53 PM CDT) athologist Signature Renin Activity 1.9 ng/mL/hr 12/03/2018 [facility] 7:29 PM CDT LABORATORIES Comment: INTERPRETIVE INFORMATION: Renin Activity Adult, Normal sodium diet: ??Supine ................. 0.2-1.6 ng/m L/hr ??Upright ................ 0.5-4.0 ng/m L/hr Children, Normal sodium diet, Supine: ??Hoxie (1-7 days) ..... 2.0-35.0 ng/ mL/hr ??Cord [...] angiotensinogen is decreased. See Compliance Statement D: [email or web address] [employer]/CS Performed by [facility], [address] [place] [address] [email or web address], Tenzin Holguin MD, Lab. 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
--- OUTSIDE RECORDS SUMMARY | 2022-07-02 21:54 | XMS_ITS | Encounter Summary ---
:2001 Author Organization [facility] Address [address] [place] [address] Care Team Providers Name Role Phone Unassigned, Provider Primary Care Provider Unavailable Encounter Details Date Type Department Care Team Description 05/28/2012 Notes/Orders [facility] [place] [address] [address] [address] [place] [address] [place] [address] (Wo rk) Social History Tobacco [...] of form faxed to patient school at [facility] fax # as well as copy to patient mom per her request. Pt Mom also notified this was done. Form sent toSDO. Maggi Bloom - 05/28/2012 4:29 PM CDT Received a letter of medical necessity from [facility] for pt's transportation costs to [facility]. Form filled out and faxed to . Fax verification received. Copy of form sent to [facility]. documented in this encounter Plan of Treatment Not on filedocumented as of this encounter Visit Diagnoses Not on filedocumented in this encounter Care Teams Forest Pathologist Relationship Specialty Start Date End Date Unassigned, Provider PCP - General 01 05/10/[address] [place] [address] documented as of this encounter
--- OUTSIDE RECORDS SUMMARY | 2022-07-02 21:54 | XMS_ITS | Encounter Summary ---
:2001 Author Organization [facility] Address [address] [place] [address] Care Team Providers Name Role Phone Unassigned, Provider Primary Care Provider Unavailable Reason for Visit Reason Comments RESULTS, TEST Encounter Details Date Type Department Care Team Description 05/14/2012 Telephone [facility] Meagan Haile MD RESULTS, TEST [id number] [address] [address] [place] [address] [place], [place] [id number] (Wo rk) Social History Tobacco Use Types Packs/Day Years Used Date Smoking Tobacco: Never Assessed Sex Assigned at Date Recorded Not on file documented as of this encounter Nursing Notes Yamila Sanford - 05/14/2012 1:[address] Meagan Haile, called and scheduled Sleep Deprived EEG for patient at [facility] ([place] location) as [facility] does not offer this service for pediatric [...] . Both of these appointments are for [place] office. Phone number # [phone] and appointment info given to patient mom. Called managed care and spoke to [facility], who will submit for referrals to both of these appointments. Reason for appointments: Increase in frequency ofheadaches and Abnormal MRI. Meagan Haile MD - 05/14/2012 10:18 AM CDT Spoke to mom re MRI of brain without contrast results and answered her questions. Dr. Judy CONCEPCION from [facility] called this morning to update me [...] of brain without contrast done 05/13/2012 @ [facility]. documented in this encounter Plan of Treatment Not on filedocumented as of this encounter Visit Diagnoses Diagnosis MRI of brain abnormal - Primary Nonspecific (abnormal) findings on radio logical and other examination of skull and head Persistent headaches Headache documented in this encounter Care Teams Civil Designer Relationship Specialty Start Date End Date Unassigned, Provider PCP - General 01 05/10/[address] [place] [address] documented as of this encounter
--- OUTSIDE RECORDS SUMMARY | 2022-07-02 21:54 | XMS_ITS | Encounter Summary ---
:2000 Author Organization [facility] Address [address] [place] [address] Care Team Providers Name Role Phone Unassigned, Provider Primary Care Provider Unavailable Reason for Referral Procedure/Equipment (Routine) - Incomplete Specialty Diagnoses / Procedures Referred By Contact Refer red To Contact Diagnoses Arthralgia of both ankles Derian Chandra MD Procedures MR Ankle Lt WO IV Cont [address] [facility] [place] [address] Referral ID Status Reason Start Date Expiration Date Visits V isits Requested Authorized [id number] Incomplete 11/29/2018 02/28/2020 1 1 Procedure/Equipment (Routine) - Incomplete Specialty Diagnoses / Procedures Referred By Contact Refer red To Contact Diagnoses Arthralgia of both ankles Derian Chandra MD Procedures MR Ankle Rt WO IV Cont [address] [facility] [place] [address] 1 Referral ID Status Reason Start Date Expiration Date Visits V isits Requested Authorized [id number] Incomplete 11/29/2018 02/28/2020 1 1 Reason for Visit Reason Comments INJURY, ANKLE bilat Encounter Details Date Type Department Care Team Description 11/29/2018 Office Visit [facility] Derian Chandra, Arthral marco a of both ankles (Primary Dx); [facility] [address] [facility] [address] [facility] [place] [address] [place], [place] [phone] (Wo rk) Social History Tobacco Use Types [...] RN - 11/29/2018 3:[address] Dreian Chandra MD Sports & Orthopaedic Medicine [facility] Medication Requests: Prescriptions are not filled on Weekends or on Weekdays after 3:00PM For all medication refills: Request a refill using [email or web address] or contact your Pharmacy Acute Injury Clinic Nurse Line: Please contact Acute Injury Clinic Nurse line for all medical requests and questions at [phone] MRI Scheduling: To schedule an MRI at [facility] please call [phone] Paperwork Requests: Questions regarding FMLA or disability paperwork please call [phone] Workers??? Compensation: Please contact our department for any Work Comp concerns at Email: [email or web address] Appointment Scheduling: Can be done at the front counter clerk or by calling our main number [phone] Diagnosis: Bilateral ankle pain, left calcaneonavicular coalition Schedule appointment with spine specialist within 3 weeks for Left tarsal coalition documented in this encounter Progress Notes Derian Chandra MD - 11/29/2018 12:00 PM CDT NAME: DAKOTA VASQUEZ MR#: [id number] CSN: [id number] AUTHENTICATING CLINICIAN: Derian Chandra MD CONFIRM #: [...] some lacrosse practice. SOCIAL HISTORY: Eleventh grade, [employer], active in lacrosse. ALLERGIES: Per [...] ankles documented in this encounter Care Teams Special Systems Technician Relationship Specialty Start Date End Date Unassigned, Provider PCP - General 01 05/10/[address] [place] [address] documented as of this encounter
--- OUTSIDE RECORDS SUMMARY | 2022-07-02 21:54 | XMS_ITS | Encounter Summary ---
:2000 Author Organization [facility] Address [address] [address] Care Team Providers Name Role Phone Unassigned, Provider Primary Care Provider Unavailable Encounter Details Date Type Department Care Team Description 11/25/2013 Orders Only HP Claims MD John Security Contact Bill [address] [place] [address] Mailstop [id number] [phone] (Wo rk) Social History Tobacco Use Types Packs/Day Years Used Date Smoking Tobacco: Never Assessed Sex Assigned at Date Recorded Not on file documented as of this encounter Plan of Treatment Not on filedocumented as of this encounter Visit Diagnoses Not on filedocumented in this encounter Care Teams Intermediate Card Tender Relationship Specialty Start Date End Date Unassigned, Provider PCP - General 01 05/10/[address] [place] [address] documented as of this encounter
--- OUTSIDE RECORDS SUMMARY | 2022-07-02 21:54 | XMS_ITS | Encounter Summary ---
:2000 [facility] Address [address] [place] [address] Care Team Providers Name Role Phone Unassigned, Provider Primary Care Provider Unavailable Reason for Visit Reason Comments CONSULT Encounter Details Date Type Department Care Team Description 11/18/2012 Telephone [facility] Meagan Haile MD CONSULT [address] [address] [place] [address] [place] [address] (Wo rk) Social History Tobacco Use Types Packs/Day Years Used Date Smoking Tobacco: Never Assessed Sex Assigned at Date Recorded Not on file documented as of this encounter Nursing Notes Maggi Bloom - 11/24/2012 3:09 PM CDT Verified with Millicent at [facility] that referrals were sent for Dr. Manuel and Dr. Marcial for DOS of 05/20/12. Also, referral for colonoscopy at [place] [facility] also sent through. Mom notified. Maggi Bloom - 11/24/2012 12:42 PM CDT Left voice message for Millicent at [facility] to see if referrals were put through for [facility]. Will wait for call back. Maggi Bloom - 11/21/2012 10:45 AM CDT Approval pending approval from [facility]. Criselda Amador, RN - 11/19/2012 8:36 AM CDT [facility] calling back to speak with triage [place] [phone] today, 11/19 Maggi Bloom - 11/18/2012 2:41 PM CDT Spoke with Fartun at [facility]. Per Fartun, DOS 05/20/12 and 06/13/12 were approved for referral. Will need to call Millicent tomorrow in [facility] to discuss; she is out of the office today. Maggi Bloom - 11/18/2012 10:35 AM CDT Received fax from pt's mother requesting insurance referrals for these dates: 1)05/20/12, Dr. Manuel and Dr. Marcial for office visits and 2)06/13/12, Colonoscopy. Copy of fax at triage desk. documented in this encounter Plan of Treatment Not on filedocumented as of this encounter Visit Diagnoses Not on filedocumented in this encounter Care Teams Facility Administrator Relationship Specialty Start Date End Date Unassigned, Provider PCP - General 01 05/10/[address] [place] [address] documented as of this encounter
--- OUTSIDE RECORDS SUMMARY | 2022-07-02 21:54 | XMS_ITS | Encounter Summary ---
:2000 Author Organization [facility] Address [address] [address] Care Team Providers Name Role Phone Unassigned, Provider Primary Care Provider Unavailable Reason for Visit Reason Comments WELL CHILD EXAM Encounter Details Date Type Department Care Team Description 03/31/2012 Office Visit [facility] Meagan Haile, Routine child health exam (P rimary Dx); [address] [address] Anne MD Abdominal pain, chronic, generalized; [place] [address] Mild intermittent asthma with exacerbati on; [address] [place], [place] Hip dysplasia; [phone] Scoliosis; [phone] IgG deficiency; (Work) Need for Tdap vaccination; [...] pre-adolescent well child visit. New patient to [facility]. history: Born at full-term with a [...] fructose abnormal tests. She's been followed by [facility] where she was diagnosed with IgG [...] Upper GI done in 2001 at [facility] showed grade 3 gastroesophageal reflux with normal [...] Receive flu shot today. Spirometry done by grocery clerk marking less than 6 months ago. Allergies: Continue to use Claritin. Also with grocery clerk marking annually. Review of Nutrition: adequate dairy, varied [...] (139.7 cm) Wt 60 lb 14.4 oz (44446 g) BMI 14.15 kg/m2 Weight: 60 lb 14.4 oz (28967 g) (7.48%) Height: 4' 7 (139.7 cm) [...] pre-adolescent WCC. Plan: Abdominal pain: Referred to [facility] for further evaluation. Has had a complete evaluation by [facility] and continues to severe abdominal pain and diarrhea with poor weight gain. Will send letter to [place] so that appointment can be made. Scoliosis: [...] Influenza TIV (36+ MOS) ??? Varicella ??? VA VISUAL SCREENING TEST, BILAT ??? VA PURE TONE HEARING TEST, AIR Passed hearing [...] Need for prophylactic vaccination with c ombined ndeazafrma-udgvdyy-saexqqqsd (DTP) vaccine Need for influenza vaccination Need for prophylactic vaccination and in oculation against influenza Other examination of ears and hearing documented in this encounter Care Teams Accounting Director Relationship Specialty Start Date End Date Unassigned, Provider PCP - General 01 05/10/[address] [place] [address] documented as of this encounter
--- OUTSIDE RECORDS SUMMARY | 2022-07-02 21:54 | XMS_ITS | Encounter Summary ---
:2000 Author Organization [facility] Address [address] [place] [address] Care Team Providers Name Role Phone Unassigned, Provider Primary Care Provider Unavailable Reason for Visit Reason Comments Forms Encounter Details Date Type Department Care Team Description 08/20/2012 Telephone [facility] Meagan Haile MD Forms [id number]. [address] [place] [address] [place] [address] (Wo rk) Social History Tobacco Use Types Packs/Day Years Used Date Smoking Tobacco: Never Assessed Sex Assigned at Date Recorded Not on file documented as of this encounter Nursing Notes Tiff Stanton MA - 08/21/2012 9:28 AM CST Called pt's home to inform them that their [facility] paperwork has been completed and signed. Faxed to [employer] for them at [phone]. Fax confirmed. Sent pt's original copy to pt's home address. MENDER Maggi Bloom - 08/20/2012 4:35 PM CST Received [facility] paperwork. Paperwork completed and place on Dr. Meagan Haile's desk to sign. Contacted managed care to process a referral to insurance for EEG. documented in this encounter Plan of Treatment Not on filedocumented as of this encounter Visit Diagnoses Not on filedocumented in this encounter Care Teams Manager Planning Relationship Specialty Start Date End Date Unassigned, Provider PCP - General 01 05/10/19 [address] [place] [address] documented as of this encounter
--- OUTSIDE RECORDS SUMMARY | 2022-07-02 21:54 | XMS_ITS | Encounter Summary ---
:2001 Author [facility] Address [address] [address] Care Team Providers Name Role Phone Unassigned, Provider Primary Care Provider Unavailable Reason for Visit Reason Comments CONSULT Encounter Details Date Type Department Care Team Description 04/15/2012 Telephone [facility] Meagan Haile CONSULT [address] [place] [address] Social History Tobacco Use Types Packs/Day Years Used Date Smoking Tobacco: Never Assessed Sex Assigned at Date Recorded Not on file documented as of this encounter Nursing Notes Yamila Sanford - 05/21/2012 10:37 AM CDT Pt had appointment at [facility] yesterday, May 20 for second opinion per [...] these records before completing summary letter for [facility]. Maggi Hendricks - 04/15/2012 2:42 PM CDT Left mom a voice message that we were working on the referral to [facility]. Mom to call back with any questions or concerns at our main number and ask for nurse triage. Will keep mom updated in this process. Maggi Bloom - 04/15/2012 2:39 PM CDT Spoke with Peds GI at [facility]. Gave pt information and referral. Before appointment [...] entered a referral for her to see [facility] for her abdominal pain and poor weight gain. She can continue to see her current middleware engineer. Yamila Sanford - 04/15/2012 10:35 AM CDT Pt mom calling for clarification regarding 2nd opinion referral to [facility] per Dr. Meagan Haile for allergy and GI concerns. Appointment needs to be scheduled and patient information faxed to [facility]. documented in this encounter Plan of Treatment Not on filedocumented as of this encounter Visit Diagnoses Diagnosis Abdominal pain, generalized - Primary documented in this encounter Care Teams Supervisor Sandblaster Relationship Specialty Start Date End Date Unassigned, Provider PCP - General 01 05/10/[address] [place] [address] documented as of this encounter
--- OUTSIDE RECORDS SUMMARY | 2022-07-02 21:54 | XMS_ITS | Encounter Summary ---
:2000 Author [facility] Address [address] [place] [address] Care Team Providers Name Role Phone Unassigned, Provider Primary Care Provider Unavailable Reason for Visit Reason Comments Letter Encounter Details Date Type Department Care Team Description 06/17/2012 Telephone [facility] Meagan Haile MD Letter [address] [address] [place] [address] [place] [address] (Wo rk) Social History Tobacco Use Types Packs/Day Years Used Date Smoking Tobacco: Never Assessed Sex Assigned at Date Recorded Not on file documented as of this encounter Nursing Notes Maggi Bloom - 06/18/2012 2:05 PM CST Letter faxed to [phone] as requested. Fax verification received. Maggi Bloom [...] are trying to enroll pt in the [employer] Program. They need a letter that states that because of the child's diagnosis she is struggling academically and misses a significant amount of school. Mom would like the letter faxed to her at: [phone]. documented in this encounter Miscellaneous Notes Letter - 06/17/2012 12:00 AM CST Images from the original note were not included. [facility] [address] [facility] [address] June 18, 2012 Patient: Dakota Casiano Date of : 2000 To Whom It May Concern: It is my medical opinion that Dakota Casiano is struggling academically and misses a significant amount of school due to medical reasons. Dakota is being seen by a pediatric senior technical manager at [facility] in [place], [place]. Also, is seeing a neurologist in the [facility]. Both of these specialties require several office visits monthly as well as procedures and referrals to other specialties that require her to be absent from school. This being said, Dakota is unable to keep up with her school work. We are requesting that you asif Dakota approval to enroll in the [employer]. This will assist her in keeping up with her studies while she is unable to attend school. If you have any questions or concerns in regards to this matter, please don't hesitate to call. Thank you for your time and consideration. Sincerely, Meagan Haile MD INE II TRIMMER documented in this encounter Plan of Treatment Not on filedocumented as of this encounter Visit Diagnoses Not on filedocumented in this encounter Care Teams Measurement Psychologist Relationship Specialty Start Date End Date Unassigned, Provider PCP - General 01 05/10/[address] [place] [address] documented as of this encounter
--- OUTSIDE RECORDS SUMMARY | 2022-07-02 21:54 | XMS_ITS | Encounter Summary ---
:2000 Author Organization [facility] Address [address] [place] [address] Care Team Providers Name Role Phone Unassigned, Provider Primary Care Provider Unavailable Reason for Visit Reason Comments Nurse Return Call Request Return Call Encounter Details Date Type Department Care Team Description 06/04/2012 Telephone [facility] Meagan Haile MD Nurse Return Call [address] [address]. [address] [facility] Request; Return Call [place], [place] [address] [phone] Social History Tobacco Use Types Packs/Day Years Used Date Smoking Tobacco: Never Assessed Sex Assigned at Date Recorded Not on file documented as of this encounter Nursing Notes Yamila Sanford - 06/05/2012 3:11 PM CDT [facility] unable to work new patients in at this time. Dr. Bravo from [facility] also spoke to Dr. Haile about patient. Pt is welcome to make appointment for next available which they are currently booking out until Aug 2012. Per Dr. Haile, called [facility] to see if patient could be seen there for a sooner appointment as [facility] Spoke to Joseline who requested related information be faxed to her at [phone]. Once received and reviewed Joseline will call back myself or Dr. Haile with an update of when pt can be seen there for neurology appointment. If questions before that, Joseline can be reached at [phone]. Chery Pino - 06/05/2012 1:35 PM CDT Non -Symptom Message from [facility] Primary Care Provider: Meagan Haile MD Message: Maribell at the [facility] is calling nurse re setting earlier appt. Please call back [place]. Yamila Sanford - 06/05/2012 1:25 PM CDT Called and spoke to [facility] per Dr. Meagan Haile to request sooner appointment for patient per Dr. Haile. If [facility] calls back please transfer them to Dr. Haile nurse @ [phone]. Yamila Sanford - 06/04/2012 2:12 PM CDT Pt seen at [facility] today with Dr. Oquendo @ [place] location following-up from sleep deprived EEG. Pt [...] on filedocumented in this encounter Care Teams Dynamiter Relationship Specialty Start Date End Date Unassigned, Provider PCP - General 01 05/10/[address] [place] [address] documented as of this encounter
--- OUTSIDE RECORDS SUMMARY | 2022-07-02 21:54 | XMS_ITS | Encounter Summary ---
:2000 Author Organization [facility] Address [address] [place] [address] Care Team Providers Name Role Phone Unassigned, Provider Primary Care Provider Unavailable Reason for Visit Reason Comments Forms Encounter Details Date Type Department Care Team Description 06/04/2012 Notes/Orders [facility] [address] [address]. [address] [place] [address] [place], [place] [address] (Wo rk) Social History Tobacco Use Types [...] 8:[address] Oquendo calling from [facility] requesting additional records on mutual [...] on filedocumented in this encounter Care Teams Front Office Spec Relationship Specialty Start Date End Date Unassigned, Provider PCP - General 01 05/10/[address] [place] [address] documented as of this encounter
--- OUTSIDE RECORDS SUMMARY | 2022-07-02 21:54 | XMS_ITS | Encounter Summary ---
:2000 Author Organization [facility] Address [address] [place] [address] Care Team Providers Name Role Phone Unassigned, Provider Primary Care Provider Unavailable Reason for Referral Therapies (Routine) - Closed Specialty Diagnoses / Procedures Referred By Contact Refer red To Contact Diagnoses Bilateral ankle pain, unspecified chronicity Desire Acevedo MD [address] [place] [address] Referral ID Status Reason Start Date Expiration Date Visits Requ ested Visits Authorized [id number] Closed 03/21/2018 05/20/2018 1 1 Scheduling Instructions Your provider has recommended an appoint ment with [facility]. You may call [phone] to schedule your appoi ntment. If you do not schedule an appointment within the next 1 to 3 business days, we will call you to help arrange your appointment. We suggest you call your [employer] insurance company about your coverage and benefits for this appointment. Procedure/Equipment (Routine) - Incomplete Specialty Diagnoses / Procedures Referred By Contact Refer red To Contact Diagnoses Bilateral ankle pain, unspecified chronicity Desire Acevedo MD Procedures XR Ankle Lt [address] [place] [address] Dr [place] [address] Referral ID Status Reason Start Date Expiration Date Visits V isits Requested Authorized [id number] Incomplete 03/21/2018 06/20/2019 1 1 Procedure/Equipment (Routine) - Incomplete Specialty Diagnoses / Procedures Referred By Contact Refer red To Contact Diagnoses Bilateral ankle pain, unspecified chronicity Desire Acevedo MD Procedures XR Ankle Rt 3 Views [address] [address] [place] [address] Referral ID Status Reason Start Date Expiration Date Visits V isits Requested Authorized [id number] Incomplete 03/21/2018 06/20/2019 1 1 Reason for Visit Reason Comments ANKLE PAIN L>R ankle 2 weeks Encounter Details Date Type Department Care Team Description 03/21/2018 Office Visit [facility] Desire Acevedo al ankle pain, Urgent Care MD [place] unspecified [address] [facility] chronicity (Primary [place], [place] [address] [place], [place] Dx) [phone] (Wo rk) Social History Tobacco Use Types [...] for all medical requests and questions at [phone] MRI Scheduling: To schedule an MRI at [facility] please call [phone] Paperwork Requests: Questions regarding FMLA or disability paperwork please call [phone] Phone lines are answered 8AM to 5PM Saturday - Saturday Workers??? Compensation: Please contact our department for any Work Comp concerns at Email: [email or web address] Bilateral ankle tendonitis/ peroneal Physical therapy Follow up as needed with Dr. Acevedo documented in this encounter Progress Notes Desire Acevedo MD - 03/21/2018 8:08 PM CDT NAME: DAKOTA VASQUEZ MR#: [id number] CSN: [id number] AUTHENTICATING CLINICIAN: Desire Acevedo MD CONFIRM #: [phone] LOC: 711 CLINIC PROGRESS NOTE DATE OF VISIT: 03/21/2018 : 2000 CHIEF COMPLAINT: Bilateral ankle pain. 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
--- OUTSIDE RECORDS SUMMARY | 2022-07-02 21:54 | XMS_ITS | Encounter Summary ---
:2000 Author Organization [facility] Address [address] [place] [address] Care Team Providers Name Role Phone Unassigned, Provider Primary Care Provider Unavailable Reason for Visit Procedure/Equipment (Routine) - Incomplete Specialty Diagnoses / Procedures Referred By Contact Refer red To Contact Diagnoses Arthralgia of both ankles Derian Chandra MD Procedures MR Ankle Lt WO IV Cont [address] [facility] [address] [place] [address] Referral ID Status Reason Start Date Expiration Date Visits V isits Requested Authorized [id number] Incomplete 11/29/2018 02/28/2020 1 1 Encounter Details Date Type Department Care Team Description 11/29/2018 Ancillary [facility] Derian Chandra, Arthralgia of both Procedure [address] [facility] [address] [facility] [place] [address] [phone] Social History Tobacco Use Types Packs/Day Years [...] ankles documented in this encounter Care Teams Coagulating Bath Operator Relationship Specialty Start Date End Date Unassigned, Provider PCP - General 01 05/10/[address] [place] [address] documented as of this encounter
--- OUTSIDE RECORDS SUMMARY | 2022-07-02 21:54 | XMS_ITS | Encounter Summary ---
:2000 Author Organization [facility] Address [address] [place] [address] Care Team Providers Name Role Phone Unassigned, Provider Primary Care Provider Unavailable Reason for Visit Reason Comments CONSULT Encounter Details Date Type Department Care Team Description 08/21/2012 Telephone [facility] Meagan Haile MD CONSULT [address] [address] [place] [address] [place] [address] (Wo rk) Social History Tobacco Use Types Packs/Day Years Used Date Smoking Tobacco: Never Assessed Sex Assigned at Date Recorded Not on file documented as of this encounter Nursing Notes Maggi Bloom - 09/12/2012 4:13 PM CST Left voice message for pt's mother that pt's records are available for pickling machine operator at the desk operator in [place]. If any questions or concerns, mom to call our main number and ask for nurse triage. Records placed at the desk operator in [place]. ITY ANALYST Tiff Stanton MA - 09/12/2012 9:10 AM CST Faxed the Referral order to Jaleesa at [facility] at [phone]. Fax confirmed. ITY ANALYST Siri Alonzo - 09/11/2012 3:17 PM CST [facility] calling request referral for Victor to be faxed to [phone] attn: Jaleesa. Maggi Bloom - 09/04/2012 4:52 PM CST Spoke with pt's mother. She is going to transfer care to [facility] on Saturday, as [facility] is not able to give continuous referrals for the different specialty doctors that pt sees. Will call back on Saturday with a fax number to fax records to. ITY ANALYST Donya Lindo - 09/04/2012 11:18 AM CST mom retuning call -Mom hung up, Maggi Bloom - 09/02/2012 2:32 PM CST Spoke with pt's mother. Per [facility], pt will need weekly visits for 6 months. Per pt's mother, [facility] to write a letter of medical necessity stating that there is no place else in [place] for this type of treatment. Mom to call later this week with scheduled dates for these appointments. Also, mom to get us a copy of the letter from [facility] to give to managed care. ITY ANALYST Maggi Bloom - 08/27/2012 4:45 PM CST Faxed all referral information to [facility] approved the followin) [facility] GI, Dr. Humphries DOS: 05/20/12, 06/13/12, [...] call mom next 09/02/12 to see what [facility] decides for weekly visits for pt. Will have to see if [facility] will be able to send referrals for this, depending on diagnosis and reasoning. ITY ANALYST Yolanda Haile, RN - 08/21/2012 12:08 PM CST Spoke to [facility] regarding referral, regarding coverage in 2011 patient was assigned to [facility] and assignment was never changed to [facility] therefore [facility] can not process this referral request. In addition patient appears to have different coverage starting in 2012. ITY ANALYST Marina Muro - 08/21/2012 8:23 AM CST Referral/Consult Caller Name/Relationship: [facility] Primary Care Provider: Meagan Haile MD What referral is needed? to [facility] Why is referral needed? pt is being seen for headaches (Caller gave diagnosis code of 784.0) Insurance Carrier: [facility] Member ID: n/a -- provider # for [facility] is [id number] Appointment already scheduled? yes When/With whom/Where? first appt was 07/07/12 What is needed from us? call Shira to discuss referral Call back phone or cell phone: [phone] Best time to call back number: anytime Is it OK to leave a confidential message on this voicemail? yes *ECODE ITY ANALYST documented in this encounter Plan of Treatment Not on filedocumented as of this encounter Visit Diagnoses Not on filedocumented in this encounter Care Teams Cinder Pit Crane Operator Relationship Specialty Start Date End Date Unassigned, Provider PCP - General 01 05/10/[address] [place] [id number] documented as of this encounter
--- OUTSIDE RECORDS SUMMARY | 2022-07-02 21:54 | XMS_ITS | Encounter Summary ---
:2001 Author Organization [facility] Address [address] [place] [address] Care Team Providers Name Role Phone Unassigned, Provider Primary Care Provider Unavailable Reason for Visit Reason Comments Follow-up Encounter Details Date Type Department Care Team Description 05/23/2012 Notes/Orders [facility] [place] [address] [address] [address] [place] [address] [place] [address] (Wo rk) Social History Tobacco Use Types Packs/Day Years Used Date Smoking Tobacco: Never Assessed Sex Assigned at Date Recorded Not on file documented as of this encounter Progress Notes Yamila Sanford - 06/04/2012 4:11 PM CDT Pt mom has questions regarding dietary needs. Per Dr. Haile, called [facility] Dietary Dept to ask oven builder to review gluten free diet and lactose free diet options/ recommended by Dr. Humphries. Spoke Shakeel Adams, Electronic Warfare Technician who stated she will call family and discuss patient situation/options and determine if dietary appointment is appropriate. Juan is aware patient still has future follow-up appointments with [facility] and further diagnostic studies. Yamila Sanford - 05/23/2012 5:07 PM CDT Javier, Electric Meter Tester Helper to Dr. Humphries at [facility] (#[phone]) calling to follow-up regarding patient appointment with [facility] 05/20/2012. Labs are still pending but Dr. Humphries is anticipating patient will need a Nutrition appointment with a Gas Or Water Meter Installer once labs are back. Dr. Humphries is comfortable with patient either seeing a local oven builder or one at the [facility]. Also called and spoke to patient's mom [...] on filedocumented in this encounter Care Teams Controlled Area Checker Relationship Specialty Start Date End Date Unassigned, Provider PCP - General 01 05/10/[address] [place] [id number] documented as of this encounter
--- OUTSIDE RECORDS SUMMARY | 2022-07-02 21:54 | XMS_ITS | Encounter Summary ---
:2001 Author Organization [facility] Address [address] [place] [address] Care Team Providers Name Role Phone Unassigned, Provider Primary Care Provider Unavailable Reason for Visit Reason Comments Post Visit Follow Up Encounter Details Date Type Department Care Team Description 05/22/2012 Telephone [facility] [place] [address] [address] [address] [place], [place] [address] [phone] Social History Tobacco Use Types Packs/Day Years Used Date Smoking Tobacco: Never Assessed Sex Assigned at Date Recorded Not on file documented as of this encounter Nursing Notes Yaimla Sanford - 05/23/2012 8:28 AM CDT Late entry. Yesterday, Called and requested additional records from [facility] which were received and given to Dr. Meagan Haile. Also called [facility] for neurology (Marquez) for EEG report per and requested it be faxed when available. Meagan Haile MD - 05/22/2012 10:48 AM CDT Spoke with mom to review notes from [facility]. Mom in contact with [facility]. During visit to [place] also sawimmunology, IDisease and mom believes nephrology. Triage/nursing will work to get those records faxed to us. Additional stool samples dropped off at [facility] to be shipped to [facility] since one of her stool samples was [...] Dr. Haile, called to request records from [facility] from pt appointment on 05/20/2012. Records from appointment received with the exception of KEENA still pending. If there are further questions, Javier at [facility] pediatrics can be reached at [phone]. documented in this encounter Plan of Treatment Not on filedocumented as of this encounter Visit Diagnoses Not on filedocumented in this encounter Care Teams Sales Representative Facility Services Relationship Specialty Start Date End Date Unassigned, Provider PCP - General 01 05/10/[address] [place] [id number] documented as of this encounter
--- OUTSIDE RECORDS SUMMARY | 2022-07-02 21:54 | XMS_ITS | Encounter Summary ---
:2001 Author Organization [facility] Address [address] [place] [address] Care Team Providers Name Role Phone Unassigned, Provider Primary Care Provider Unavailable Reason for Visit Reason Comments Forms Encounter Details Date Type Department Care Team Description 11/19/2012 Telephone [facility] Meagan Haile MD Forms [id number] [address]. [address] [place] [address] [place] [address] (Wo rk) Social History Tobacco [...] appears patient had a MRI done at [facility] in 2011 which was compared to a CT done 05/11/2008 at the same facility. Informed mom to contact that facility HIM. Also gave her [facility] HIM # [phone] documented in this encounter Plan of Treatment Not on filedocumented as of this encounter Visit Diagnoses Not on filedocumented in this encounter Care Teams Gin Operator Relationship Specialty Start Date End Date Unassigned, Provider PCP - General 01 05/10/[address] [place] [id number] documented as of this encounter
--- OUTSIDE RECORDS SUMMARY | 2022-07-02 21:54 | XMS_ITS | Encounter Summary ---
:2001 Author Organization [facility] Address [address] [place] [address] Care Team Providers Name Role Phone Unassigned, Provider Primary Care Provider Unavailable Reason for Visit Reason Comments Appt. Needed Encounter Details Date Type Department Care Team Description 05/12/2012 Notes/Orders [facility] [place]agan Haile, [place] [address] Sebastian Anne MD headaches (Primary Dx) [place] [address] [facility] [address] [place], [place] [phone] Social History Tobacco Use Types Packs/Day Years Used Date Smoking Tobacco: Never Assessed Sex Assigned at Date Recorded Not on file documented as of this encounter Progress Notes Yamila Sanford - 05/12/2012 10:41 AM CDT Order printed, signed by Dr. Meagan Haile, and faxed to [facility] Radiology # . Meagan Haile MD - 05/12/2012 9:28 AM CDT Spoke with mom for an update. Letter received by [facility]. Per mom - appointment to be scheduled [...] that our office would follow- up with [facility] this week to see if there's any additional info that they may need. Mom agrees with plan. Yamila Sanford - 05/12/2012 9:05 AM CDT MRI of brain without contrast scheduled per Dr. Meagan Haile @ [facility] Radiology dept. Check in at 430pm 1st floor radiology dept for 5pm appointment. Called managed care for referral as [facility] booking out too far. Called patient mom to give her this information as well as [facility] rescheduling number . MRI order from Dr. Meagan Haile needs to be faxed to [facility] @ # . documented in this encounter Plan of Treatment Not on filedocumented as of this encounter Visit Diagnoses Diagnosis Increased frequency of headaches - Prima ry Headache documented in this encounter Care Teams Slot Manager Relationship Specialty Start Date End Date Unassigned, Provider PCP - General 01 05/10/[address] [place] [id number] documented as of this encounter
[2022-07-02 22:04] LABS: PCR FLU A POSITIVE PCR FLU A (Negative); PCR FLU B Negative PCR FLU B (Negative); SARS PCR* Negative SARS-CoV-2 (Negative)
[2022-07-02 22:24] VITALS: BP 115/78; PULSE 95; RESP 20; TEMP 37.7; O2SAT 99
[2022-07-02 22:33] VITALS: BP 118/78; PULSE 95; RESP 20; TEMP 36.7; O2SAT 99
--- NOTE | 2022-07-02 23:42 | ED.NURSE ---
called patient with positive influenza A results. callled in prescription to [facility] in [place] for tamiflu po 75mg bid x 5 days.
== END 2022-07-02 21:49 | disposition home or self-care (01) ==
LOC: ED 21:42
PROVIDERS: Emergency Medicine Emergency Medical Services; Emergency Provider Internal Medicine; PCP Family Medicine
DX: R50.9 Fever, unspecified (principal)
CPT/HCPCS: 87631; 87651; 99283

== ENCOUNTER 2022-08-31 19:55 | Emergency (ER) | payer OTHER, MEDICAID, SELFPAY ==
[2022-08-31 20:22] VITALS: BP 108/70; PULSE 92; RESP 16; O2SAT 97; BMI 23.6
[2022-08-31] MEDS: 0.9 % SODIUM CHLORIDE 1000 ml 1,000 ML IV (23:05)
[2022-08-31] MEDS: ONDANSETRON 2 MG/ML inj 4 MG IVP (23:05)
[2022-08-31 23:13] LABS: Basophils Absolute Auto 0.02 K/uL (0.00-0.30); Basophils Percent Auto 0.2 % (0.0-3.0); Eosinophils Absolute Auto 0.12 K/uL (0.00-0.50); Eosinophils Percent Auto 1.3 % (0.0-7.0); Hematocrit 43.1 % (33.0-51.0); Hemoglobin* 14.6 gm/dL (12.0-16.0); Immature Granulocytes Abs Auto 0.07 K/uL (0.00-0.30); Immature Granulocytes Pct Auto 0.7 %; Lymphocytes Absolute Auto 2.94 K/uL (0.90-2.90); Lymphocytes Percent Auto 31.4 % (20-44); Mean Corpuscular HGB Conc 34 gm/dL (32-36); Mean Corpuscular Hemoglobin 30 pg (26-34); Mean Corpuscular Volume 89 fL (80-100); Monocytes Percent Auto 8.2 % (0.0-11.0); Neutrophils Absolute Auto 5.44 K/uL (1.7-7.0); Neutrophils Percent Auto 58.2 % (42.0-72.0); Platelet Count* 326 K/uL (140-440); RDW Coefficient of Variation % 11.9 % (11.5-15.5); Red Blood Count 4.82 m/uL (4.00-5.20); White Blood Count* 9.36 K/uL (4.50-11.00)
[2022-08-31 23:14] LABS: Slide Review Reflex No
[2022-08-31 23:28] LABS: Albumin* 4.6 g/dL (3.3-5.0)
[2022-08-31 23:29] LABS: Chloride* 103 mmol/L (96-114); Sodium* 140 mmol/L (135-149)
[2022-08-31 23:30] LABS: Potassium* 3.5 mmol/L (3.6-5.1)
[2022-08-31 23:31] LABS: Total Protein* 7.8 g/dL (6.0-8.3)
[2022-08-31 23:32] LABS: Alanine Aminotransferase* 40 U/L (4-35); Alkaline Phosphatase* 88 U/L (40-150); Aspartate Amino Transferase* 37 U/L (12-35); Bilirubin Direct* 0.1 mg/dL (0.0-0.5); Bilirubin Total* 0.6 mg/dL (0.1-1.5); Carbon Dioxide* 29 mmol/L (20-32); Creatinine* 0.6 mg/dL (0.5-1.5); Est. Creatinine Clearance* 138.85; Estimated Glomerular Filt Rate 131 ml/min
[2022-08-31 23:33] LABS: Blood Urea Nitrogen* 11 mg/dL (5-24); Calcium* 9.3 mg/dL (8.4-10.6); Glucose* 92 mg/dL (60-115)
[2022-08-31 23:35] LABS: C Reactive Protein* < 0.5 mg/dL (0.5-1.0)
[2022-08-31 23:50] LABS: PCR FLU A Negative PCR FLU A (Negative); PCR FLU B Negative PCR FLU B (Negative); PCR RSV Negative PCR RSV (Negative); SARS PCR* Negative SARS-CoV-2 (Negative)
[2022-09-01 00:30] VITALS: BP 128/62; PULSE 68; RESP 18; O2SAT 98
[2022-09-01 00:34] LABS: Appearance Urine Clear (Clear); Bilirubin Urine Negative (Negative); Blood Urine 2+ (Negative); Color Urine Yellow (Yellow); Glucose Urine Negative (Negative); Ketones Urine 1+ (Negative); Leukocyte Esterase Urine Negative (Negative); Nitrite Urine Negative (Negative); Protein Urine Negative (Negative); Specific Gravity Urine >= 1.030 (1.000-1.030); Urobilinogen Urine 0.2 (0.2-1.0); pH Urine 5.5 (5.0-8.5)
[2022-09-01 00:35] LABS: HCG Qualitative* Negative (Negative)
[2022-09-01 00:44] LABS: Mucus Urine Few; Squamous Epithelial Cell Urine Few (None-Few); WBC Urine 0-2 (0-5)
--- NOTE | 2022-09-01 15:29 | ED_ITS ---
HPI - General Adult General Chief complaint: Weakness Stated complaint: Vomiting post surgery on saturday Time Seen by Provider: 08/31/22 22:25 History of Present Illness HPI narrative: 22-year-old young lady here with extensive past medical with Mom with concern of general weakness and just not doing well since surgery which included grafting skin procedure on the roof of the mouth and inside the lower lip buccal surface. Took half a Vicodin last yesterday. Vomited a few times this evening. Sounds like has not been able to keep up with oral intake. Mom is concerned regarding degree of ?lethargy? she is demonstrating. She did receive a transfusion of blood and platelets prior to procedure. Mom is concerned about potential surgical site infection or potential bacteremia it appears. No fevers. No cough or shortness of breath. No abdominal pain. No noted dysuria. Has been a little lightheaded. Related Data Home Medications Medication Instructions Recorded Confirmed tranexamic acid 650 mg tablet 1,300 mg PO Q8H PRN 08/06/22 08/31/22 hydrocodone 5 mg-acetaminophen 325 tab 08/31/22 mg tablet Previous Rx's Medication Instructions Recorded sertraline 200 mg capsule 200 mg PO QDAY #30 caps 01/31/22 fluticasone propionate 50 1 - 2 spray intranasal DAILY #16 04/19/22 mcg/actuation nasal grams spray,suspension norethindrone acetate 1 mg-ethinyl 1 tab PO QDAY #63 tabs 06/18/22 estradiol 20 mcg tablet (June) amoxicillin 875 mg-potassium 1 tab PO Q12H #20 tabs 08/06/22 clavulanate 125 mg tablet Allergies Allergy/AdvReac Type Severity Reaction Status Date / Time dog dander Allergy Intermediate Congested Verified 08/31/22 20:28 adhesive tape Allergy Mild Rash Verified 08/31/22 20:28 fructose Allergy Mild Diarrhea Verified 08/31/22 20:28 house dust Allergy Mild Congested Verified 08/31/22 20:28 hydromorphone Allergy Mild Hallucinati Verified 08/31/22 20:28 ng grass pollen Allergy Unknown Verified 08/31/22 20:28 lactose Allergy Unknown Verified 08/31/22 20:28 morphine pill form Allergy hallucinati Uncoded 08/31/22 20:31 on Review of Systems Status of ROS: Reports: 10 or more systems reviewed and unremarkable except as noted in History and below [facility] Medical History Clotting disorder Family history of diabetes during GERD (gastroesophageal reflux disease) IgG deficiency Iron deficiency Menorrhagia Migraine Pancreatic insufficiency Patent pressure equalization (PE) tubes, bilateral POTS (postural orthostatic tachycardia syndrome) PTSD (post-traumatic stress disorder) [place] platelet disorder Schwachman-Skylar syndrome Scoliosis of thoracic spine Social anxiety disorder Tethered spinal cord Vocal cord dysfunction Surgical History History of spinal fusion History of tonsillectomy Social History Smoking Status: Never smoker Second hand tobacco smoke exposure: No How often do you have a drink containing alcohol: never How often do you have six or more drinks on one occasion: Never AUDIT-C Alcohol total score: 0 Non-prescribed substance use: denies use Exam Narrative: Exam Narrative: Well nourished. Quiet. NAD. This was unfortunately the long wait prior to being seen. They are about to depart the emergency department due to being tired as I am able to get in to see them. Valerie does seem tired. Carefully casually groomed. Cranial nerves 2-12 look to be intact. Skin is warm and dry with good turgor. Oropharynx is sticky. Well-healing surgical site on the left hard palate. Apparent paintable bandage appears in place anterior to the lower anterior teeth on the buccal surface. I do not see surrounding inflammatory changes in either location. No purulent drainage. She is a little sore to palpation of the submental area I would think consistent with lymph chain. No restriction to rotational movement of the neck. There is no stridor. Lungs are clear. Heart is with an elevated rate in a regular rhythm. Abdomen is soft nontender. Const: Vital Signs, click to edit/add: Vital Signs - 24 hr 08/31/22 20:22 09/01/22 00:30 Pulse Rate [Left P ulse Oximeter] 92 68 Respiratory Rate 16 18 Blood Pressure [Ri ght Upper Arm] 108/70 128/62 Pulse Oximetry 97 98 Oxygen Delivery Me thod Room Air Room Air Documenting provider has reviewed patient's vital signs: yes Course Vital Signs Vital signs: Initial Vital Signs Pulse Rate 92 01/27/23 20:22 Respiratory Rate 16 08/31/22 20:22 Blood Pressure 108/70 08/31/22 20:22 Blood Pressure Mean 82 08/31/22 20:22 Blood Pressure Position Sitting 08/31/22 20:22 Pulse Oximetry 97 08/31/22 20:22 Oxygen Delivery Method 08/31/22 20:22 Vital Signs Pulse Rate 92 08/31/22 20:22 Respiratory Rate 16 08/31/22 20:22 Blood Pressure 108/70 08/31/22 20:22 Pulse Oximetry 97 08/31/22 20:22 Oxygen Delivery Method 08/31/22 20:22 Pulse Rate 68 09/01/22 00:30 Respiratory Rate 18 09/01/22 00:30 Blood Pressure 128/62 09/01/22 00:30 Pulse Oximetry 98 09/01/22 00:30 Oxygen Delivery Method 09/01/22 00:30 Medical Decision Making MDM Narrative Medical decision making narrative: It appears would benefit from some fluid resuscitation. Also ordered for antiemetic along with IV fluids. Screening labs looking for red flags as discussed with Mom. Triple screen as well. All of these were overall reassuring. 1+ ketones in urinalysis shortly before departure was produced. Small microscopic blood as well. Transaminases were very slightly elevated. After treatment as above reported feeling better and still tired just wanted to go home. Lab Data Lab results reviewed: Yes I reviewed the patient's lab results Labs: Lab Results 08/31/22 08/31/22 08/31/22 Range/Units 00:25 22:57 22:57 WBC 9.36 (4.50-11.00) K/uL RBC 4.82 (4.00-5.20) m/uL Hgb 14.6 (12.0-16.0) gm/dL Hct 43.1 (33.0-51.0) % MCV 89 (80-100) fL MCH 30 (26-34) pg MCHC 34 (32-36) gm/dL RDW Coeff of Sarah 11.9 (11.5-15.5) % Plt Count 326 (140-440) K/uL Neut % (Auto) 58.2 (42.0-72.0) % Lymph % (Auto) 31.4 (20-44) % [place] % (Auto) 8.2 (0.0-11.0) % Eos % (Auto) 1.3 (0.0-7.0) % Baso % (Auto) 0.2 (0.0-3.0) % Neut # (Auto) 5.44 (1.7-7.0) K/uL Lymph # (Auto) 2.94 H (0.90-2.90) K/uL [place] # (Auto) 0.80 (0.00-0.90) K/UL Eos # (Auto) 0.12 (0.00-0.50) K/uL Baso # (Auto) 0.02 (0.00-0.30) K/uL Sodium 140 (135-149) mmol/L Potassium 3.5 L (3.6-5.1) mmol/L Chloride 103 (96-114) mmol/L Carbon Dioxide 29 (20-32) mmol/L BUN 11 (5-24) mg/dL Creatinine 0.6 (0.5-1.5) mg/dL Estimated Creat Clear 138.85 Estimated GFR 131 ml/min Glucose 92 (60-115) mg/dL Calcium 9.3 (8.4-10.6) mg/dL Total Bilirubin (0.1-1.5) mg/dL Direct Bilirubin (0.0-0.5) mg/dL AST (12-35) U/L ALT (4-35) U/L Alkaline Phosphatase (40-150) U/L C-Reactive Protein (0.5-1.0) mg/dL Total Protein (6.0-8.3) g/dL Albumin (3.3-5.0) g/dL HCG, Qual Negative (Negative) Urine Color Yellow (Yellow) Urine Appearance Clear (Clear) Urine pH 5.5 (5.0-8.5) Ur Specific [place] >= 1.030 (1.000-1.030) Urine Protein Negative (Negative) Urine Glucose (UA) Negative (Negative) Urine Ketones 1+ A (Negative) Urine Blood 2+ A (Negative) Urine Nitrite Negative (Negative) Urine Bilirubin Negative (Negative) Urine Urobilinogen 0.2 (0.2-1.0) Ur Leukocyte Esterase Negative (Negative) Urine RBC 2-5 A (0-2) Urine WBC 0-2 (0-5) Ur Squamous Epith Cells Few (None-Few) Urine Bacteria None (None) Urine Mucus Few A (None) SARS-CoV-2 (PCR) (Negative) Influenza Type A (PCR) (Negative) Influenza Type B (PCR) (Negative) RSV (PCR) (Negative) 08/31/22 08/31/22 Range/Units 22:57 22:57 WBC (4.50-11.00) K/uL RBC (4.00-5.20) m/uL Hgb (12.0-16.0) gm/dL Hct (33.0-51.0) % MCV (80-100) fL MCH (26-34) pg MCHC (32-36) gm/dL RDW Coeff of Sarah (11.5-15.5) % Plt Count (140-440) K/uL Neut % (Auto) (42.0-72.0) % Lymph % (Auto) (20-44) % [place] % (Auto) (0.0-11.0) % Eos % (Auto) (0.0-7.0) % Baso % (Auto) (0.0-3.0) % Neut # (Auto) (1.7-7.0) K/uL Lymph # (Auto) (0.90-2.90) K/uL [place] # (Auto) (0.00-0.90) K/UL Eos # (Auto) (0.00-0.50) K/uL Baso # (Auto) (0.00-0.30) K/uL Sodium (135-149) mmol/L Potassium (3.6-5.1) mmol/L Chloride (96-114) mmol/L Carbon Dioxide (20-32) mmol/L BUN (5-24) mg/dL Creatinine (0.5-1.5) mg/dL Estimated Creat Clear Estimated GFR ml/min Glucose (60-115) mg/dL Calcium (8.4-10.6) mg/dL Total Bilirubin 0.6 (0.1-1.5) mg/dL Direct Bilirubin 0.1 (0.0-0.5) mg/dL AST 37 H (12-35) U/L ALT 40 H (4-35) U/L Alkaline Phosphatase 88 (40-150) U/L C-Reactive Protein < 0.5 L (0.5-1.0) mg/dL Total Protein 7.8 (6.0-8.3) g/dL Albumin 4.6 (3.3-5.0) g/dL HCG, Qual (Negative) Urine Color (Yellow) Urine Appearance (Clear) Urine pH (5.0-8.5) Ur Specific [place] (1.000-1.030) Urine Protein (Negative) Urine Glucose (UA) (Negative) Urine Ketones (Negative) Urine Blood (Negative) Urine Nitrite (Negative) Urine Bilirubin (Negative) Urine Urobilinogen (0.2-1.0) Ur Leukocyte Esterase (Negative) Urine RBC (0-2) Urine WBC (0-5) Ur Squamous Epith Cells (None-Few) Urine Bacteria (None) Urine Mucus (None) SARS-CoV-2 (PCR) Negative SARS-CoV-2 (Negative) Influenza Type A (PCR) Negative PCR FLU A (Negative) Influenza Type B (PCR) Negative PCR FLU B (Negative) RSV (PCR) Negative PCR RSV (Negative) Discharge Plan Discharge Clinical Impression: Vomiting, Dehydration Patient Disposition: Home w/ Parent or Adult Condition: Improved Additional Instructions: Focus on hydration. Slow advance of diet over the next 24-36 hours. Diluted juices and soup broths advancing to thicker soups and smoothies. Rice. [place]. Return for return of intractable vomiting, marked increase in abdominal pain, associated fever. Zofran from [facility]. Prescriptions: No Action tranexamic acid 650 mg tablet 1,300 mg PO Q8H PRN amoxicillin-pot clavulanate 875-125 mg tablet 1 tab PO Q12H Qty: 20 0RF norethindrone ac-eth estradiol [08/24 (21)] 1-20 mg-mcg tablet 1 tab PO QDAY Qty: 63 5RF Rx Instructions: pt needs an appt for any future refills. hydrocodone-acetaminophen 5-325 mg tablet Label Comments: TAKE ONE-HALF TABLET BY MOUTH EVERY 4 TO 6 HOURS NEEDED FOR PAIN MAX 8 TABLETS PER DAY sertraline 200 mg capsule 200 mg PO QDAY Qty: 30 0RF Rx Instructions: temporary refill until psychiatry appointment only. fluticasone propionate 50 mcg/actuation spray,suspension 1 - 2 spray intranasal DAILY Qty: 16 2RF Rx Instructions: administer into each nostril Follow Up/Referrals: Provider,Not a Local [Primary Care Provider] - Stand Alone Forms: [employer] Info Instructions
== END 2022-09-01 00:31 | disposition home or self-care (01) ==
PROVIDERS: Emergency Provider Family Medicine
DX: R11.10 Vomiting, unspecified (principal); E86.0 Dehydration
CPT/HCPCS: 36415; 80048; 80076; 81001; 84703; 85025; 86140; 87502; 87634; 87635; 96374; 99284; J2405; J7030

== ENCOUNTER 2023-10-02 09:07 | Outpatient (CLI) | payer OTHER, SELFPAY ==
[2023-10-02 14:41] LABS: Chlamydia DNA Amplified* NOT DETECTED (No Detected); GC DNA Amplified* NOT DETECTED (No Detected)
== END 2023-10-02 09:08 | disposition home or self-care (01) ==
PROVIDERS: Visit Provider Obstetrics & Gynecology
DX: Z11.3 Encounter for screening for infections with a predominantly sexual mode of transmission (principal)
CPT/HCPCS: 80061; 82947; 84443; 86592; 86703; 86803; 87340; 87491; 87591

== ENCOUNTER 2024-09-10 14:07 | Outpatient (CLI) | payer MEDICAID, SELFPAY | END 2024-09-10 14:08 | disposition home or self-care (01) | LOC: FRMREF 14:08 | PROVIDERS: Visit Provider Physician Assistant Medical | DX: R63.5 Abnormal weight gain (principal) | CPT/HCPCS: 84443 ==

== ENCOUNTER 2025-03-24 11:13 | Outpatient (CLI) | payer SELFPAY | END 2025-03-24 11:14 | disposition home or self-care (01) | LOC: NFLDREF 04-14 00:32 | PROVIDERS: PCP Physician Assistant Medical; Referring Provider Physician Assistant Medical; Visit Provider Physician Assistant Medical | DX: Z11.1 Encounter for screening for respiratory tuberculosis (principal) | CPT/HCPCS: 86480 ==

== ENCOUNTER 2025-05-13 15:29 | Emergency (ER) | payer OTHER, SELFPAY ==
[2025-05-13 15:36] VITALS: BP 140/78; PULSE 87; RESP 20; TEMP 36.9; O2SAT 96; BMI 30.8
--- NOTE | 2025-05-13 15:46 | ED.GENADULT ---
HPI - General Adult General Chief complaint: Headache/Migraine Stated complaint: headache, migraine, dizzy Time Seen by Provider: 05/13/25 15:31 History of Present Illness HPI narrative: Pt reports she donated blood one week ago. Since then, has been dizzy, weak, frequent headaches, body feels off . Pt reports I have a bleeding disorder and a clotting disorder so I probably shouldn't have donated blood. Pt does not know what her dx disorders are. Does not have any pain currently, but does have some nausea. Orthostatic BPs in triage are stable and unremarkable 24-year-old young woman presenting to the emergency department with primary concern of a headache. Donated blood a week ago; notes that she has been recommended not to do this. Headache is demonstrated at the top somewhat right of her head primarily but broadly. No focal weakness. No visual disturbance. Feels off. Nauseated. No neck pain. No fever. No rash. Often feels little lightheaded and notes later that does have a diagnosis of POTS. Again noting history of [place] platelet disorder. By my review results in inappropriate lysis of clotting resulting in bleeding. Is worried that is experiencing a head bleed. Related Data Home Medications ?Medication ?Instructions ?Recorded ?Confirmed tranexamic acid 650 mg tablet 1,300 mg PO Q8H PRN 08/06/22 02/01/25 desvenlafaxine succinate 25 mg 25 mg PO QAM 09/10/24 02/01/25 tablet,extended release 24 hr desvenlafaxine succinate 50 mg 50 mg PO QAM 09/10/24 02/01/25 tablet,extended release 24 hr methylphenidate HCl 5 mg tablet 5 mg PO 3XD PRN constipation 09/10/24 02/01/25 Previous Rx's ?Medication ?Instructions ?Recorded fluticasone propionate 50 1 - 2 spray intranasal DAILY #16 04/19/22 mcg/actuation nasal grams spray,suspension norethindrone acetate 1 mg-ethinyl 1 tab PO DAILY #63 tabs 02/01/25 estradiol 20 mcg tablet (Aurovela) Allergies Allergy/AdvReac Type Severity Reaction Status Date / Time dog dander Allergy Intermediate Congested Verified 02/01/25 09:48 adhesive tape Allergy Mild Rash Verified 02/01/25 09:48 fructose Allergy Mild Diarrhea Verified 02/01/25 09:48 house dust Allergy Mild Congested Verified 02/01/25 09:48 hydromorphone Allergy Mild Hallucinati Verified 02/01/25 09:48 ng grass pollen Allergy Unknown Verified 02/01/25 09:48 lactose Allergy Unknown Verified 02/01/25 09:48 morphine pill form Allergy hallucinati Uncoded 02/01/25 09:48 on Review of Systems Status of ROS: Reports: 6 or more systems reviewed and unremarkable except as noted in History and below [facility] Medical History [place] platelet disorder ?D69.1 - Qualitative platelet defects (ICD-10) Vocal cord dysfunction ?J38.3 - Other diseases of vocal cords (ICD-10) Social phobia ?F40.10 - Social phobia, unspecified (ICD-10) Scoliosis of thoracic spine (12/16/08) ?M41.9 - Scoliosis, unspecified (ICD-10) Postural orthostatic tachycardia syndrome ?G90.A - Postural orthostatic tachycardia syndrome [POTS] (ICD-10) Posttraumatic stress disorder ?F43.10 - Post-traumatic stress disorder, unspecified (ICD-10) Pancreatic insufficiency ?K86.89 - Other specified diseases of pancreas (ICD-10) Migraine headache (11/06/12) ?G43.909 - Migraine, unspecified, not intractable, without status migrainosus (ICD-10) Iron deficiency (11/06/12) ?E61.1 - Iron deficiency (ICD-10) 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/08) ?Z87.768 - Personal history of other specified (corrected) congenital malformations of integument, limbs and musculoskeletal system (ICD-10) Exercise-induced asthma ?J45.990 - Exercise induced bronchospasm (ICD-10) Patent pressure equalization (PE) tubes, bilateral ?Z96.22 - Myringotomy tube(s) status (ICD-10) Social anxiety disorder ?F40.10 - Social phobia, unspecified (ICD-10) GERD (gastroesophageal reflux disease) ?K21.9 - Gastro-esophageal reflux disease without esophagitis (ICD-10) Iron deficiency ?E61.1 - Iron deficiency (ICD-10) POTS (postural orthostatic tachycardia syndrome) ?G90.A - Postural orthostatic tachycardia syndrome [POTS] (ICD-10) Pancreatic insufficiency ?K86.89 - Other specified diseases of pancreas (ICD-10) 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 (ICD-10) Vocal cord dysfunction ?J38.3 - Other diseases of vocal cords (ICD-10) 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 (ICD-10) Migraine ?G43.909 - Migraine, unspecified, not intractable, without status migrainosus (ICD-10) Tethered spinal cord ?Q06.8 - Other specified congenital malformations of spinal cord (ICD-10) Scoliosis of thoracic spine ?M41.9 - Scoliosis, unspecified (ICD-10) [place] platelet disorder ?D69.1 - Qualitative platelet defects (ICD-10) Clotting disorder ?D68.9 - Coagulation defect, unspecified (ICD-10) PTSD (post-traumatic stress disorder) ?F43.10 - Post-traumatic stress disorder, unspecified (ICD-10) Family history of diabetes during ?Z83.3 - Family history of diabetes mellitus (ICD-10) Menorrhagia ?N92.0 - Excessive and frequent menstruation with regular cycle (ICD-10) Surgical History History of tonsillectomy (12/16/08) ?Z90.89 - Acquired absence of other organs (ICD-10) History of removal of retained hardware ?Z98.890 - Other specified postprocedural states (ICD-10) History of thoracic spinal fusion ?Z98.1 - Arthrodesis status (ICD-10) History of myringotomy (12/16/08) ?Z98.890 - Other specified postprocedural states (ICD-10) History of spinal surgery ?Z98.890 - Other specified postprocedural states (ICD-10) History of spinal fusion ?Z98.1 - Arthrodesis status (ICD-10) History of tonsillectomy ?Z90.89 - Acquired absence of other organs (ICD-10) Social History Smoking Status: Never smoker Second hand tobacco smoke exposure: No How often do you have a drink containing alcohol: never How often do you have six or more drinks on one occasion: Never AUDIT-C Alcohol total score: 0 Non-prescribed substance use: denies use Exam Narrative: Exam Narrative: Pleasant. NAD. Appears mildly anxious. Head is atraumatic. Neck supple but a little sore in the right paracervical musculature. CN 2 - 12 intact. Pupils 3 mm and equal and briskly reactive. Moving all extremities with good strength. Lungs are clear. Heart in regular rate and rhythm. Skin warm and dry without rash, petechiae. Site of blood draw without evidence of bleeding. Const: Vital Signs, click to edit/add: Vital Signs - 24 hr 05/13/25 15:36 Temperature 98.4 F Pulse Rate [Pulse Oximeter] 87 Respiratory Rate 20 Blood Pressure [Ri t Upper Arm] 140/78 H Pulse Oximetry 96 Oxygen Delivery Me thod Room Air Documenting provider has reviewed patient's vital signs: yes Course Vital Signs Vital signs: Initial Vital Signs Temperature 98.4 F 05/13/25 15:36 Temperature Source Temporal Artery Scan 05/13/25 15:36 Pulse Rate 87 05/13/25 15:36 Respiratory Rate 20 05/13/25 15:36 Blood Pressure 140/78 H 05/13/25 15:36 Blood Pressure Mean 98 05/13/25 15:36 Pulse Oximetry 96 05/13/25 15:36 Oxygen Delivery Method Room Air 05/13/25 15:36 Vital Signs Temperature 98.4 F 05/13/25 15:36 Pulse Rate 87 05/13/25 15:36 Respiratory Rate 20 05/13/25 15:36 Blood Pressure 140/78 H 05/13/25 15:36 Pulse Oximetry 96 05/13/25 15:36 Oxygen Delivery Method Room Air 05/13/25 15:36 Temperature 98.4 F 05/13/25 15:36 Pulse Rate 85 05/13/25 17:17 Respiratory Rate 18 05/13/25 17:17 Blood Pressure 140/78 H 05/13/25 15:36 Pulse Oximetry 99 05/13/25 17:17 Oxygen Delivery Method Room Air 05/13/25 17:17 Medications Administered Medications: Discontinued Medications Generic Name Dose Route Start Last Admin Trade Name Freq PRN Reason Stop Dose Admin Sodium Chloride 1,000 mls @ 1,000 mls/hr 05/13/25 16:00 05/13/25 17:45 0.9 % Sodium Chloride 1000 Ml IV 05/13/25 16:59 Infused .Q1H ONE Infusion Ketorolac Tromethamine 15 mg 05/13/25 16:00 05/13/25 16:34 Ketorolac 30 Mg/Ml Inj IVP 05/13/25 16:01 15 mg ONCE ONE Administration Medical Decision Making MDM Narrative Medical decision making narrative: Headache and duration is atypical. With underlying history/diagnosis, I would offer a head CT. Could assess for sinus disease as well. Headache is not only tension related though with some component of this I think. Not occipital neuralgia. Check standard labs and coags. CBC for suggestion of infectious etiology which I think is unlikely. Check platelets. Non-contrast head CT independently reviewed by me is without acute abnormality/bleed. Labs are reassuring. Dakota would like treatment for her headache. Offered IV fluids and ketorolac. On reassessment is significantly improved and feels can return home. See patient discharge plan for further discussion. I am happy you are feeling better. Continue stay well-hydrated. Some of your headache may have been contributed to by tension, discomfort that is also present in your neck. Consider stretching your neck a couple of times daily by pulling forward on the back of your head and holding for little bit and repeat. See also handout for some ideas for stretches for the upper back. Medical Records Medical records reviewed: Yes I reviewed the patient's medical records Lab Data Lab results reviewed: Yes I reviewed the patient's lab results Labs: Lab Results 05/13/25 Range/Units 16:40 WBC 8.71 (4.50-11.00) K/uL RBC 4.14 (4.00-5.20) m/uL Hgb 12.6 (12.0-16.0) gm/dL Hct 38.0 (33.0-51.0) % MCV 92 (80-100) fL MCH 30 (26-34) pg MCHC 33 (32-36) gm/dL RDW Coeff of Sarah 12.0 (11.5-15.5) % Plt Count 352 (140-440) K/uL Neut % (Auto) 52.5 (42.0-72.0) % Lymph % (Auto) 36.2 (20-44) % Nuckolls % (Auto) 8.7 (0.0-11.0) % Eos % (Auto) 2.2 (0.0-7.0) % Baso % (Auto) 0.3 (0.0-3.0) % Neut # (Auto) 4.57 (1.7-7.0) K/uL Lymph # (Auto) 3.15 H (0.90-2.90) K/uL Nuckolls # (Auto) 0.80 (0.00-0.90) K/UL Eos # (Auto) 0.19 (0.00-0.50) K/uL Baso # (Auto) 0.03 (0.00-0.30) K/uL Abs Immat Gran (auto) 0.01 (0.00-0.30) K/uL Imm/Tot Granulo (auto) 0.1 % INR 0.86 L (0.91-1.10) APTT 30 (23-33) Seconds Sodium 136 (135-149) mmol/L Potassium 4.3 (3.6-5.1) mmol/L Chloride 102 (96-114) mmol/L Carbon Dioxide 28 (20-32) mmol/L Anion Gap 6 L (7-15) mEq/L BUN 12 (5-24) mg/dL Creatinine 0.6 (0.5-1.5) mg/dL Estimated Creat Clear 131.22 Estimated GFR 129 ml/min Glucose 82 (60-115) mg/dL Calcium 9.1 (8.4-10.6) mg/dL Discharge Plan Discharge Clinical Impression: Headache Patient Disposition: Home, Self-Care Condition: Improved Additional Instructions: I am happy you are feeling better. Continue stay well-hydrated. Some of your headache may have been contributed to by tension, discomfort that is also present in your neck. Consider stretching your neck a couple of times daily by pulling forward on the back of your head and holding for little bit and repeat. See also handout for some ideas for stretches for the upper back. Prescriptions: No Action tranexamic acid 650 mg tablet 1,300 mg PO Q8H PRN desvenlafaxine succinate 25 mg tablet extended release 24 hr 25 mg PO QAM desvenlafaxine succinate 50 mg tablet extended release 24 hr 50 mg PO QAM methylphenidate HCl 5 mg tablet 5 mg PO 3XD PRN (Reason: constipation) norethindrone ac-eth estradiol [Aurovela 08/24 (21)] 1-20 mg-mcg tablet 1 tab PO DAILY Qty: 63 5RF Rx Instructions: Using continuously to prevent heavy menstrual cycles. fluticasone propionate 50 mcg/actuation spray,suspension 1 - 2 spray intranasal DAILY Qty: 16 2RF Rx Instructions: administer into each nostril Follow Up/Referrals: Melina Ward PA-C [Primary Care Provider, Family Practice] Stand Alone Forms: [facility] Info Instructions
--- NOTE | 2025-05-13 16:00 | CRLHL7_ITS ---
For Patients: As a result of the Century Cures Act, medical imaging exams and procedure reports are released immediately into your electronic medical record. You may view this report before your referring provider. If you have questions, please contact your health care provider. Indication: History of coagulopathy and usual one-week of headache Technique: Volumetric multidetector CT images of the head were obtained without the administration of low osmolar intravenous contrast. Comparison: CT head September 10, 2017 Findings: There is no intra-axial or extra-axial fluid collection. There is no mass effect or midline shift. The ventricles and sulci are normal in size and position for age. The brain parenchyma is grossly preserved in attenuation and miller-white differentiation. The orbits and their contents are grossly within normal limits. The bony calvarium is grossly intact. The paranasal sinuses are clear. The mastoid air cells are well aerated. Impression: No acute intracranial abnormality. Please note that all CT scans at this facility use dose modulation, iterative reconstruction, and/or weight-based dosing when appropriate to reduce radiation dose to as low as reasonably achievable. Dictated by Ramesh Fleming MD @ 05/13/2025 4:51:35 PM (Electronically Signed)
--- OUTSIDE RECORDS SUMMARY | 2025-05-13 16:41 | XMS_ITS | Encounter Summary ---
Author Organization [facility] Address [address] [place] [address] Care Team Providers Care Recreation Attendant Name Role Phone [facility] Primary Care Provider Julian Spencer MD Unavailable [phone] Mariposa Atwood MD Unavailable [phone] Julian Spencer MD Unavailable [phone] Eugenio Finney MD Unavailable + [phone] Josh Carrero Primary Care Provider + [phone] Urbano Price MD Unavailable [phone] Joe Leo MD Unavailable [phone] Joe Leo MD Unavailable [phone] Douglas Gonzalez MD Unavailable [phone] Douglas Gonzalez MD Unavailable [phone] Julian Spencer MD Unavailable [phone] Azar Cruz MD Unavailable + [phone] Glen Roth MD Unavailable [phone] Encounter Details Date Type Department Care Team (Late st Contact Info) Description 05/26/2020 [facility], [address] [place] [address], [place] [phone] Eugenio Finney MD [address] [facility] [address] [place], [place] [id number] Social History Tobacco Use Types Packs/Day Years Used Date Smoking Tobacco: Never Smokeless Tobacco: Never PHQ-2 Answer Date Recorded PHQ-2 Score 1 05/05/2020 Comments Unknown Sex and Gender Information Value Date Recorded Sex Assigned at Female 12/02/2020 1:42 PM CDT Legal Sex Female 4:19 AM WATER SAFETY INSTRUCTOR Gender Identity Female 12/02/2020 1:42 PM CDT Sexual Orientation Straight 12/02/2020 1: 42 PM CDT COVID-19 Exposure Response Date Recorded In the last month, have you been in contact with someone who was confirmed or suspected to have Coronavirus / COVID-19? No / Unsure 05/19/2020 8:40 AM CDT documented as of this encounter Plan of Treatment Upcoming Encounters Date Type Department Care Team ([facility] st Contact Info) Description 07/05/2025 3:00 PM WATER SAFETY INSTRUCTOR Office Visit [facility] [address] [facility] [address] [place] [phone] Azar Cruz MD [address] [place] [address] [address], [address] [place], [place] [address] Mynor Hargrove MD [address] [facility] [address] [place], [place] [address] 03/03/2026 3:20 PM CDT Office Visit [facility] [place] [address] [facility] [address] 4[address] [place] [address] Glen Roth MD [address] [facility] [address] [place], [place] [address] documented as of this encounter Visit Diagnoses Not on filedocumented in this encounter Additional Health Concerns Infection Onset Date Last Indicated Resolved Time Rule Out COVID-19 08/18/2020 08/18/2020 08/18/2020 7:29 PM WATER SAFETY INSTRUCTOR COVID-19 08/18/2020 08/18/2020 09/08/2020 11:3 9 PM WATER SAFETY INSTRUCTOR documented as of this encounter Care Teams Recreation Attendant Relationship Specialty Start Date End Date Clinic, [facility] [address] [place] [address] PCP - General 10/15/17 08/08/20 Josh Carrero [address] [address] PCP - General Family Medicine 08/09/20 Julian Spencer MD [address] [place] [address] Orthopedics 03/08/20 Mariposa Atwood MD [address] [place] [id number] Assigned PCP 04/29/20 11/12/20 Julian Spencer MD [address] [place] [address] Assigned Musculoskeletal Provider 05/27/20 02/22/23 Eugenio Finney MD [address] [place] [address] Assigned Pediatric Specialist Provider 06/19/20 06/03/21 Urbano Price MD [address] [place] [id number] Assigned PCP 11/13/20 08/28/23 Joe Leo MD [address] [facility] [address] [place] [address] Physical Medicine and Rehabilitation 04/11/21 Joe Leo MD [address] [facility] [address] [place] [address] Assigned Neuroscience Provider 04/30/21 11/16/22 Douglas Gonzalez MD [address] [address] Pediatrics 05/29/21 Douglas Gonzalez MD [address] [address] Assigned Pediatric Specialist Provider 06/04/21 11/30/22 Julian Spencer MD [address] [place], [place] [address] Assigned Musculoskeletal Provider 05/11/23 03/26/25 Azar Cruz MD [address] [facility] [address] [place], [place] [address] Assigned Pediatric Specialist Provider 10/18/23 Glen Roth MD [address] [place], [place] [address] Assigned Musculoskeletal Provider 03/27/25 documented as of this encounter
--- OUTSIDE RECORDS SUMMARY | 2025-05-13 16:41 | XMS_ITS | Encounter Summary ---
Author Organization [facility] Address [address] [place] [address] Care Team Providers Care Steel Pourer Name Role Phone Julian Spencer MD Unavailable [phone] Julian Spencer MD Unavailable [phone] Josh Carrero Primary Care Provider + [phone] Urbano Price MD Unavailable [phone] Joe Leo MD Unavailable [phone] Joe Leo MD Unavailable [phone] Douglas Gonzalez MD Unavailable [phone] Douglas Gonzalez MD Unavailable [phone] Julian Spencer MD Unavailable [phone] Azar Cruz MD Unavailable + [phone] Glen Roth MD Unavailable [phone] Encounter Details Date Type Department Care Team (Late st Contact Info) Description 06/19/2021 [facility] Advice [facility] [address] [place] [phone] Dulce Stone, RUTH Social History Tobacco Use Types Packs/Day Years Used Date Smoking Tobacco: Never Smokeless Tobacco: Never Alcohol Use Standard Drinks/Week Comments Not Currently 0 (1 standard drink = 0.6 oz pur e alcohol) PHQ-2 Answer Date Recorded PHQ-2 Score 0 09/01/2020 Comments No Sex and Gender Information Value Date Recorded Sex Assigned at Female 12/02/2020 1:42 PM CDT Legal Sex Female 4:19 AM LINUX ADMINISTRATOR Gender Identity Female 12/02/2020 1:42 PM CDT Sexual Orientation Straight 12/02/2020 1: 42 PM CDT COVID-19 Exposure Response Date Recorded In the last month, have you been in contact with someone who was confirmed or suspected to have Coronavirus / COVID-19? No / Unsure 05/29/2021 12:48 PM CDT documented as of this encounter Plan of Treatment Upcoming Encounters Date Type Department Care Team ([facility] st Contact Info) Description 07/05/2025 3:00 PM LINUX ADMINISTRATOR Office Visit [facility] [address] [facility] [address] [place] [phone] Azar Cruz MD [address] [facility] [address], [address] [place], [place] [address] Mynor Hargrove MD [address] [facility] [address] [place], [place] [address] 03/03/2026 3:20 PM CDT Office Visit [facility] [place] [address] [facility] [address] 4th [place] [phone] Glen Roth MD [address] [facility] [address] [place] [address] documented as of this encounter Visit Diagnoses Not on filedocumented in this encounter Care Teams Steel Pourer Relationship Specialty Start Date End Date Josh Carrero [address] [address] PCP - General Family Medicine 08/09/20 Julian Spencer MD Orthopedics 03/08/20 Julian Spencer MD Assigned Musculoskeletal Provider 05/27/20 02/22/23 Urbano Price MD [facility] [place], [place] [address] Assigned PCP 11/13/20 08/28/23 Joe Leo MD [address] [facility] [address] [place], [place] [address] Physical Medicine and Rehabilitation 04/11/21 Joe Leo MD [address] [facility] [address] [place], [place] [address] Assigned Neuroscience Provider 04/30/21 11/16/22 Douglas Gonzalez MD [address] [place] [phone] Pediatrics 05/29/21 Douglas Gonzalez MD [address] [place] [id number] Assigned Pediatric Specialist Provider 06/04/21 11/30/22 Julian Spencer MD [address] [place], [place] [address] Assigned Musculoskeletal Provider 05/11/23 03/26/25 Azar Cruz MD [address] [facility] [address], [address] [place], [place] [address] Assigned Pediatric Specialist Provider 10/18/23 Glen Roth MD [address] [address] Assigned Musculoskeletal Provider 03/27/25 documented as of this encounter
--- OUTSIDE RECORDS SUMMARY | 2025-05-13 16:41 | XMS_ITS | Encounter Summary ---
Author Organization [place] Address [address] [place] [address] Care Team Providers Care Risk And Insurance Consultant Name Role Phone Julian Spencer MD Unavailable [phone] Julian Spencer MD Unavailable +[phone] Eugenio Finney MD Unavailable + [phone] Josh Carrero Primary Care Provider + [phone] Urbano Price MD Unavailable +[phone] Joe Leo MD Unavailable +[phone] Joe Leo MD Unavailable [phone] Douglas Gonzalez MD Unavailable + [phone] Douglas Gonzalez MD Unavailable + [phone] Julian Spencer MD Unavailable +[phone] Azar Cruz MD Unavailable + [phone] Glen Roth MD Unavailable +[phone] Encounter Details Date Type Department Care Team (Late st Contact Info) Description 05/31/2021 [facility] [address] 3rd [place] [address] Douglas Gonzalez MD [facility] [address] [place], [place] [address] Social History Tobacco Use Types Packs/Day Years Used Date Smoking Tobacco: Never Smokeless Tobacco: Never Alcohol Use Standard Drinks/Week Comments Not Currently 0 (1 standard drink = 0.6 oz pur e alcohol) PHQ-2 Answer Date Recorded PHQ-2 Score 0 09/01/2020 Comments No Sex and Gender Information Value Date Recorded Sex Assigned at Female 12/02/2020 1:42 PM CDT Legal Sex Female 4:19 AM PELLETIZER OPERATOR Gender Identity Female 12/02/2020 1:42 PM CDT Sexual Orientation Straight 12/02/2020 1: 42 PM CDT COVID-19 Exposure Response Date Recorded In the last month, have you been in contact with someone who was confirmed or suspected to have Coronavirus / COVID-19? No / Unsure 05/29/2021 12:48 PM CDT documented as of this encounter Plan of Treatment Upcoming Encounters Date Type Department Care Team ([facility] Contact Info) Description 07/05/2025 3:00 PM PELLETIZER OPERATOR Office Visit [facility] [address] [facility] [address] [place] [phone] Azar Cruz MD 420 [facility] [address], [address] [place], [place] [address] Mynor Hargrove MD 420 [facility] 480 [place], [place] [address] 03/03/2026 3:20 PM CDT Office Visit [facility] [place] [address] [facility] [address] 4th [place] [address] Glen Roth MD [address] [facility] [address] [place], [place] [address] documented as of this encounter Visit Diagnoses Not on filedocumented in this encounter Care Teams Risk And Insurance Consultant Relationship Specialty Start Date End Date Josh Carrero [address] [address] PCP - General Family Medicine 08/09/20 Julian Spencer MD Orthopedics 03/08/20 Julian Spencer MD Assigned Musculoskeletal Provider 05/27/20 02/22/23 Eugenio Finney MD 420 [facility] 96 [place], [place] 168585 Assigned Pediatric Specialist Provider 06/19/20 06/03/21 Urbano Price MD [address] [place] [address] 503094 Assigned PCP 11/13/20 08/28/23 Joe Leo MD 420 [facility] 297 [place], [place] [address] Physical Medicine and Rehabilitation 04/11/21 Joe Leo MD 420 [facility] 297 [place], [place] [address]685 Assigned Neuroscience Provider 04/30/21 11/16/22 Douglas Gonzalez MD [address] [place] [address] 344674 Pediatrics 05/29/21 Douglas Gonzalez MD [address] [place] [address] Assigned Pediatric Specialist Provider 06/04/21 11/30/22 Julian Spencer MD 909 [place] [address] Assigned Musculoskeletal Provider 05/11/23 03/26/25 Azar Cruz MD 420 [facility] [address], [address] [place] [address] Assigned Pediatric Specialist Provider 10/18/23 Glen Roth MD [address] [place] [address] Assigned Musculoskeletal Provider 03/27/25 documented as of this encounter
--- OUTSIDE RECORDS SUMMARY | 2025-05-13 16:41 | XMS_ITS | Encounter Summary ---
Author Organization [place] Address [address] [place] [address] Care Team Providers Care Transcribing Machine Mechanic Name Role Phone Julian Spencer MD Unavailable [phone] Julian Spencer MD Unavailable +[phone] Eugenio Finney MD Unavailable +[phone] Josh Carrero Primary Care Provider + [phone] Urbano Price MD Unavailable [phone] Joe Leo MD Unavailable [phone] Joe Leo MD Unavailable [phone] Douglas Gonzalez MD Unavailable + [phone] Douglas Gonzalez MD Unavailable +[phone] Julian Spencer MD Unavailable +[phone] Azar Cruz MD Unavailable + [phone] Glen Roth MD Unavailable [phone] Encounter Details Date Type Department Care Team (Late st Contact Info) Description 05/03/2021 [facility] [place] Medical Advice [facility] [address] [place] [address], 3rd Floor [facility] [address] [address] Catalina Tay RN Social History Tobacco Use Types Packs/Day Years Used Date Smoking Tobacco: Never Smokeless Tobacco: Never Alcohol Use Standard Drinks/Week Comments Not Currently 0 (1 standard drink = 0.6 oz pur e alcohol) PHQ-2 Answer Date Recorded PHQ-2 Score 0 09/01/2020 Comments No Sex and Gender Information Value Date Recorded Sex Assigned at Female 12/02/2020 1:42 PM CDT Legal Sex Female 4:19 AM ROLLING ATTENDANT Gender Identity Female 12/02/2020 1:42 PM CDT Sexual Orientation Straight 12/02/2020 1: 42 PM CDT COVID-19 Exposure Response Date Recorded In the last month, have you been in contact with someone who was confirmed or suspected to have Coronavirus / COVID-19? No / Unsure 04/27/2021 1:24 PM CDT documented as of this encounter Plan of Treatment Upcoming Encounters Date Type Department Care Team ([facility] st Contact Info) Description 07/05/2025 3:00 PM ROLLING ATTENDANT Office Visit [facility] [address] [facility] [address] [place] [phone] Azar Cruz MD 420 [facility] [address], [address] [place], [place] [address] Mynor Hargrove MD 420 [facility] 480 [place], [place] [address] 03/03/2026 3:20 PM CDT Office Visit [facility] [place] 9[address] [facility] [address] 4th [place] [address] Glen Roth MD [address] [facility] [address] [place], [place] [address] documented as of this encounter Visit Diagnoses Not on filedocumented in this encounter Care Teams Transcribing Machine Mechanic Relationship Specialty Start Date End Date Josh Carrero [address] [address] PCP - General Family Medicine 1/5/21 Julian Spencer MD Orthopedics 03/08/20 Julian Spencer MD Assigned Musculoskeletal Provider 05/27/20 02/22/23 Eugenio Finney MD 420 [facility] 96 [place], [place] [address] Assigned Pediatric Specialist Provider 06/19/20 06/03/21 Urbano Price MD [address] [place] [address] 101474 Assigned PCP 11/13/20 08/28/23 Joe Leo MD 420 [facility] 297 [place], [place] [address] Physical Medicine and Rehabilitation 04/11/21 Joe Leo MD 420 [facility] 297 [place], [place] [address]65 Assigned Neuroscience Provider 04/30/21 11/16/22 Douglas Gonzalez MD [address] [place] [address]49804 Pediatrics 05/29/21 Douglas Gonzalez MD [address] [place] [address] Assigned Pediatric Specialist Provider 06/04/21 11/30/22 Julian Spencer MD 909 [place] [address] Assigned Musculoskeletal Provider 05/11/23 03/26/25 Azar Cruz MD [address] [place] [address] 484, [address] [place] [address] Assigned Pediatric Specialist Provider 10/18/23 Glen Roth MD [facility]2 [place] [id number] [place] [address] Assigned Musculoskeletal Provider 03/27/25 documented as of this encounter
--- OUTSIDE RECORDS SUMMARY | 2025-05-13 16:41 | XMS_ITS | Encounter Summary ---
Author Organization [place] Address [address] [place] [address] Care Team Providers Care Reacher Name Role Phone Julian Spencer MD Unavailable [phone] Julian Spencer MD Unavailable [phone] Josh Carrero Primary Care Provider + [phone] Urbano Price MD Unavailable +[phone] Joe Leo MD Unavailable [phone] Joe Leo MD Unavailable [phone] Douglas Gonzalez MD Unavailable + [phone] Douglas Gonzalez MD Unavailable +[phone] Julian Spencer MD Unavailable +[phone] Azar Cruz MD Unavailable +[phone] Glen Roth MD Unavailable [phone] Encounter Details Date Type Department Care Team (Late st Contact Info) Description 08/16/2022 [facility] Medical Advice [facility] [address]th [place] [address] Julian Spencer MD [address] [place] [address] Social History Tobacco Use Types Packs/Day Years Used Date Smoking Tobacco: Never Smokeless Tobacco: Never Alcohol Use Standard Drinks/Week Comments Not Currently 0 (1 standard drink = 0.6 oz pur e alcohol) PHQ-2 Answer Date Recorded PHQ-2 Score 0 09/01/2020 Comments No Sex and Gender Information Value Date Recorded Sex Assigned at Female 12/02/2020 1:42 PM CDT Legal Sex Female 4:19 AM SENIOR LEAD PROJECT MANAGER Gender Identity Female 12/02/2020 1:42 PM CDT Sexual Orientation Straight 12/02/2020 1: 42 PM CDT documented as of this encounter Plan of Treatment Upcoming Encounters Date Type Department Care Team ([facility] st Contact Info) Description 07/05/2025 3:00 PM SENIOR LEAD PROJECT MANAGER Office [facility] [address] [facility] [address] [place] [phone] Azar Cruz MD 420 [facility] 484, [address] [place], [place] [address] Mynor Hargrove MD 420 [facility] 480 [place], [place] [address] 03/03/2026 3:20 PM CDT Office Visit [facility] [place] [address] [facility] [address] 4th [place] [phone] Glen Roth MD 25[address] [facility] [address] [place], [place] 60[address] documented as of this encounter Visit Diagnoses Not on filedocumented in this encounter Care Teams Reacher Relationship Specialty Start Date End Date Josh Carrero [address] [address] PCP - General Family Medicine 08/09/20 Julian Spencer MD Orthopedics 03/08/20 Julian Spencer MD Assigned Musculoskeletal Provider 05/27/20 02/22/23 Urbano Price MD 2450 [place] [address] Assigned PCP 11/13/20 08/28/23 Joe Leo MD 420 [facility] 297 [place], [place] [address] Physical Medicine and Rehabilitation 04/11/21 Joe Leo MD 420 [facility] 297 [place], [place] [address] Assigned Neuroscience Provider 04/30/21 11/16/22 Douglas Gonzalez MD [facility] [address] 5868[address] Pediatrics 05/29/21 Douglas Gonzalez MD [address] [place] [address] Assigned Pediatric Specialist Provider 06/04/21 11/30/22 Julian Spencer MD [address] [place] [address] Assigned Musculoskeletal Provider 05/11/23 03/26/25 Azar Cruz MD 420 [facility] [address], [address] [place], [place] 6764[address] Assigned Pediatric Specialist Provider 10/18/23 Glen Roth MD [address] [facility] [address] [place] [address] Assigned Musculoskeletal Provider 03/27/25 documented as of this encounter
--- OUTSIDE RECORDS SUMMARY | 2025-05-13 16:41 | XMS_ITS | Encounter Summary ---
Author Organization [place] Address [address] [place] [address]. [place] [address] Care Team Providers Care Slip Caster Name Role Phone Julian Spencer MD Unavailable [phone] Josh Carrero Primary Care Provider [phone] Joe Leo MD Unavailable [phone] Douglas Gonzalez MD Unavailable [phone] Julian Spencer MD Unavailable [phone] Azar Cruz MD Unavailable +[phone] Glen Roth MD Unavailable [phone] Encounter Details Date Type Department Care Team (Late st Contact Info) Description 03/17/2025 [facility] Medical Advice [facility] 9th [place] [address] Azar Cruz MD [address] [facility] [address], [address] [place] [address] Social History Tobacco Use Types Packs/Day Years Used Date Smoking Tobacco: Never Smokeless Tobacco: Never Alcohol Use Standard Drinks/Week Comments Not Currently 0 (1 standard drink = 0.6 oz pur e alcohol) PHQ-2 Answer Date Recorded PHQ-2 Score 0 08/27/2024 Adolescent Education Answer Date Record ed Getting School Help Needed Not on file 04/29 Comments No Sex and Gender Information Value Date Recorded Sex Assigned at Female 12/02/2020 1:42 PM CDT Legal Sex Female 4:19 AM INTERNATIONAL LOGISTICS COORDINATOR Gender Identity Female 12/02/2020 1:42 PM CDT Sexual Orientation Straight 12/02/2020 1: 42 PM CDT documented as of this encounter Plan of Treatment Upcoming Encounters Date Type Department Care Team (Late st Contact Info) Description 07/05/2025 3:00 PM INTERNATIONAL LOGISTICS COORDINATOR Office Visit [facility] [address] [facility] [address] [place] [phone] Azar Cruz MD [address] [facility] [address], [address] [place] [address] Mynor Hargrove MD 420 [facility] 480 [place], [place] [address] 03/03/2026 3:20 PM CDT Office Visit [facility] [place] 909 [facility] [address] 4th [place] [address] Glen Roth MD [address] [facility] [address] [place], [place] [address] documented as of this encounter Visit Diagnoses Not on filedocumented in this encounter Care Teams Slip Caster Relationship Specialty Start Date End Date Josh Carrero [address] [phone] PCP - General Family Medicine 08/09/20 Julian Spencer MD Orthopedics 03/08/20 Joe Leo MD 420 [facility] 297 [place] [address] Physical Medicine and Rehabilitation 04/11/21 Douglas Gonzalez MD 2450 [facility] [address] [place] [address] Pediatrics 05/29/21 Julian Spencer MD [address] [place] [address] 976855 Assigned Musculoskeletal Provider 05/11/23 03/26/25 Azar Cruz MD 420 [facility] [address], [address] [place], [place] 4712[address] Assigned Pediatric Specialist Provider 10/18/23 Glen Roth MD [address] [place] [address] [address] [place] [address] Assigned Musculoskeletal Provider 03/27/25 documented as of this encounter
--- OUTSIDE RECORDS SUMMARY | 2025-05-13 16:41 | XMS_ITS | Encounter Summary ---
Author Organization [place] Address [address] [place] [address] Care Team Providers Care Automation Control Integrator Name Role Phone Julian Spencer MD Unavailable [phone] Julian Spencer MD Unavailable [phone] Eugenio Finney MD Unavailable +[phone] Josh Carrero Primary Care Provider + [phone] Urbano Price MD Unavailable [phone] Joe Leo MD Unavailable [phone] Joe Leo MD Unavailable [phone] Douglas Gonzalez MD Unavailable + [phone] Douglas Gonzalez MD Unavailable + [phone] Julian Spencer MD Unavailable [phone] Azar Cruz MD Unavailable +[phone] Glen Roth MD Unavailable [phone] Encounter Details Date Type Department Care Team (Late st Contact Info) Description 05/24/2021 [facility] [place] [place] Medical Advice [facility] [place] 909 [facility] 3rd [place] [address] Joe Leo MD 420 [facility] 297 [place] [address] Social History Tobacco Use Types [...] PM CDT Legal Sex Female 4:19 AM COMPRESSOR ASSEMBLER Gender Identity Female 12/02/2020 1:42 PM CDT Sexual Orientation Straight 12/02/2020 1: 42 PM CDT COVID-19 Exposure Response Date Recorded In the last month, have you been in contact with someone who was confirmed or suspected to have Coronavirus / COVID-19? No / Unsure 05/15/2021 8:33 AM CDT documented as of this encounter Plan of Treatment Upcoming Encounters Date Type Department Care Team ([facility] st Contact Info) Description 07/05/2025 3:00 PM COMPRESSOR ASSEMBLER Office Visit [facility] [address] [facility] [address] [place] [phone] Azar Cruz MD 420 [facility] [address], [address] [place], [place] [address] Mynor Hargrove MD 420 [facility] 480 [place], [place] [address] 03/03/2026 3:20 PM CDT Office Visit [facility] [place] [address] [facility] [address] 4th [place] [address] Glen Roth MD [address] [facility] [address] [place], [place] [address] documented as of this encounter Visit Diagnoses Not on filedocumented in this encounter Care Teams Automation Control Integrator Relationship Specialty Start Date End Date Josh Carrero [address] [address] PCP - General Family Medicine 08/09/20 Julian Spencer MD Orthopedics 03/08/20 Julian Spencer MD Assigned Musculoskeletal Provider 05/27/20 02/22/23 Eugenio Finney MD 420 [facility] 96 [place], [place] [address] Assigned Pediatric Specialist Provider 06/19/20 06/03/21 Urbano Price MD [address] [place] [address] 022804 Assigned PCP 11/13/20 08/28/23 Joe Leo MD 420 [facility] 297 [place], [place] [address] Physical Medicine and Rehabilitation 04/11/21 Joe Leo MD 420 [facility] 297 [place], [place] 9[address] Assigned Neuroscience Provider 04/30/21 11/16/22 Douglas Gonzalez MD [address] [place] [address] 687724 Pediatrics 05/29/21 Douglas Gonzalez MD [address] [place] [address] Assigned Pediatric Specialist Provider 06/04/21 11/30/22 Julian Spencer MD 909 [place] [address] Assigned Musculoskeletal Provider 05/11/23 03/26/25 Azar Cruz MD 420 [facility] [address], [address] [place] [address] Assigned Pediatric Specialist Provider 10/18/23 Glen Roth MD [address] [place] [address] Assigned Musculoskeletal Provider 03/27/25 documented as of this encounter
--- OUTSIDE RECORDS SUMMARY | 2025-05-13 16:41 | XMS_ITS | Encounter Summary ---
Author Organization [place] Address [address] [place] [address] Care Team Providers Care Power Plant Inspector Name Role Phone Pending [facility] Primary Care Provider Julian Spencer MD Unavailable [phone] Mariposa Atwood MD Unavailable [phone] Julian Spencer MD Unavailable [phone] Eugenio Finney MD Unavailable + [phone] Josh Carrero Primary Care Provider + [phone] Urbano Price MD Unavailable [phone] Joe Leo MD Unavailable +[phone] Joe Leo MD Unavailable +[phone] Douglas Gonzalez MD Unavailable + [phone] Douglas Gonzalez MD Unavailable +[phone] Julian Spencer MD Unavailable [phone] Azar Cruz MD Unavailable + [phone] Glen Roth MD Unavailable [phone] Encounter Details Date Type Department Care Team (Late st Contact Info) Description 05/26/2020 [facility] [address] [place] [address] [place], [place] [phone] Mariposa Atwood MD 2450 [place], [place] 7[address]14 Social History Tobacco Use Types Packs/Day Years Used Date Smoking Tobacco: Never Smokeless Tobacco: Never PHQ-2 Answer Date Recorded PHQ-2 Score 1 05/05/2020 Comments Unknown Sex and Gender Information Value Date Recorded Sex Assigned at Female 12/02/2020 1:42 PM CDT Legal Sex Female 4:19 AM FINISH PRODUCTION MANAGER Gender Identity Female 12/02/2020 1:42 PM [...] Upcoming Encounters Date Type Department Care Team ([facility] st Contact Info) Description 07/05/2025 3:00 PM FINISH PRODUCTION MANAGER Office Visit [facility] [address] [facility] [address] [place] [phone] Azar Cruz MD 420 [facility] 484, [address] [place] [address] Mynor Hargrove MD 420 [facility] 480 [place], [place] [address] 03/03/2026 3:20 PM CDT Office Visit [facility] [place] [address] [facility] [address]th [place] [address] Glen Roth MD [address] [facility] [address] [place], [place] [address] documented as of this encounter Visit Diagnoses Not on filedocumented in this encounter Additional Health Concerns Infection Onset Date Last Indicated Resolved Time Rule Out COVID-19 08/18/2020 08/18/2020 08/18/2020 7:29 PM FINISH PRODUCTION MANAGER COVID-19 08/18/2020 08/18/2020 09/08/2020 11:3 9 PM FINISH PRODUCTION MANAGER documented as of this encounter Care Teams Power Plant Inspector Relationship Specialty Start Date End Date Clinic, [facility] 1999 [place] [address] PCP - General 10/15/17 08/08/20 Josh Carrero [address] [address] PCP - General Family Medicine 08/09/20 Julian Spencer MD [address] [place] [address] Orthopedics 03/08/20 Mariposa Atwood MD [address] [place] [address] 941404 Assigned PCP 04/29/20 11/12/20 Julian Spencer MD [address] [place] [address] Assigned Musculoskeletal Provider 05/27/20 02/22/23 Eugenio Finney MD [address] [place] [address] Assigned Pediatric Specialist Provider 06/19/20 06/03/21 Urbano Price MD [address] [place] [address] Assigned PCP 11/13/20 08/28/23 Joe Leo MD 420 [facility] 297 [place] [address] Physical Medicine and Rehabilitation 04/11/21 Joe Leo MD 420 [facility] 297 [place] [address] Assigned Neuroscience Provider 04/30/21 11/16/22 Douglas Gonzalez MD [address] [address] Pediatrics 05/29/21 Douglas Gonzalez MD [address] [address] Assigned Pediatric Specialist Provider 06/04/21 11/30/22 Julian Spencer MD 909 [place] [address] Assigned Musculoskeletal Provider 05/11/23 03/26/25 Azar Cruz MD 420 [facility] 484, [address] [place], [place] [address] Assigned Pediatric Specialist Provider 10/18/23 Glen Roth MD [address] [place], [place] [address] Assigned Musculoskeletal Provider 03/27/25 documented as of this encounter
--- OUTSIDE RECORDS SUMMARY | 2025-05-13 16:41 | XMS_ITS | Encounter Summary ---
Author Organization [facility] Address [address] [place] [address] Care Team Providers Care Park Ranger Name Role Phone Julian Spencer MD Unavailable [phone] Julian Spencer MD Unavailable [phone] Eugenio Finney MD Unavailable +[phone] Josh Carrero Primary Care Provider + [phone] Urbano Price MD Unavailable +[phone] Joe Leo MD Unavailable [phone] Joe Leo MD Unavailable [phone] Douglas Gonzalez MD Unavailable + [phone] Douglas Gonzalez MD Unavailable + [phone] Julian Spencer MD Unavailable +[phone] Azar Cruz MD Unavailable + [phone] Glen Roth MD Unavailable +[phone] Encounter Details Date Type Department Care Team (Late st Contact Info) Description 11/23/2020 [facility] [address] [place] [address], 3rd Floor [address] [place] [address] Urbano Price MD [address] [place] [address] 957934 Social History Tobacco Use Types Packs/Day Years Used Date Smoking Tobacco: Never Smokeless Tobacco: Never Alcohol Use Standard Drinks/Week Comments Not Currently 0 (1 standard drink = 0.6 oz pur e alcohol) PHQ-2 Answer Date Recorded PHQ-2 Score 0 09/01/2020 Comments No Sex and Gender Information Value Date Recorded Sex Assigned at Female 12/02/2020 1:42 PM CDT Legal Sex Female 4:19 AM CALCINE FURNACE LOADER Gender Identity Female 12/02/2020 1:42 PM CDT Sexual Orientation Straight 12/02/2020 1: 42 PM CDT documented as of this encounter Plan of Treatment Upcoming Encounters Date Type Department Care Team ([facility] st Contact Info) Description 07/05/2025 3:00 PM CALCINE FURNACE LOADER Office Visit [facility] [address] [facility] [address] [place] [address] Azar Cruz MD 420 [facility] 484, [address] [place] [address] Mynor Hargrove MD 420 [facility] 480 [place] [address] 03/03/2026 3:20 PM CDT Office Visit [facility] [place] [address] [facility] [address] 4th [place] [phone] Glen Roth MD [address] [facility] [address] [place] [address] documented as of this encounter Visit Diagnoses Not on filedocumented in this encounter Care Teams Park Ranger Relationship Specialty Start Date End Date Josh Carrero [address] [address] PCP - General Family Medicine 08/09/20 Julian Spencer MD Orthopedics 03/08/20 Julian Spencer MD Assigned Musculoskeletal Provider 05/27/20 02/22/23 Eugenio Finney MD 420 [facility] 96 [place], [place] 04[address] Assigned Pediatric Specialist Provider 06/19/20 06/03/21 Urbano Price MD [address] [place] [address]104 Assigned PCP 11/13/20 08/28/23 Joe Leo MD [address] [place] [address] 297 [place] [address] Physical Medicine and Rehabilitation 04/11/21 Joe Leo MD [address] [place] [address] 297 [place] [address] Assigned Neuroscience Provider 04/30/21 11/16/22 Douglas Gonzalez MD [address] [place] [address] Pediatrics 05/29/21 Douglas Gonzalez MD [address] [place] [address] Assigned Pediatric Specialist Provider 06/04/21 11/30/22 Julian Spencer MD [address] [place] [address] Assigned Musculoskeletal Provider 05/11/23 03/26/25 Azar Cruz MD [address] [place] [address] 484, [address] [place], [place] 398[address] Assigned Pediatric Specialist Provider 10/18/23 Glen Roth MD [address] [place] [address] Assigned Musculoskeletal Provider 03/27/25 documented as of this encounter
--- OUTSIDE RECORDS SUMMARY | 2025-05-13 16:41 | XMS_ITS | Encounter Summary ---
Author Organization [facility] Address [address] [place] [address] Care Team Providers Care Belting Inspector Name Role Phone Julian Spencer MD Unavailable [phone] Julian Spencer MD Unavailable [phone] Eugenio Finney MD Unavailable +[phone] Josh Carrero Primary Care Provider + [phone] Urbano Price MD Unavailable +[phone] Joe Leo MD Unavailable +[phone] Joe Leo MD Unavailable +[phone] Douglas Gonzalez MD Unavailable + [phone] Douglas Gonzalez MD Unavailable +[phone] Julian Spencer MD Unavailable +[phone] Azar Cruz MD Unavailable + [phone] Glen Roth MD Unavailable [phone] Encounter Details Date Type Department Care Team (Late st Contact Info) Description 05/05/2021 [facility] Medical Advice [place] [address] Medical Surgical [address] [place] [address] Nancy Garza Social History Tobacco Use Types Packs/Day Years Used Date Smoking Tobacco: Never Smokeless Tobacco: Never Alcohol Use Standard Drinks/Week Comments Not Currently 0 (1 standard drink = 0.6 oz pur e alcohol) PHQ-2 Answer Date Recorded PHQ-2 Score 0 09/01/2020 Comments No Sex and Gender Information Value Date Recorded Sex Assigned at Female 12/02/2020 1:42 PM CDT Legal Sex Female 4:19 AM WHEEL LOADER OPERATOR Gender Identity Female 12/02/2020 1:42 PM [...] Upcoming Encounters Date Type Department Care Team ([facility] Contact Info) Description 07/05/2025 3:00 PM WHEEL LOADER OPERATOR Office Visit [facility] [address] [facility] [address] [place] [phone] Azar Cruz MD 420 [facility] 484, [address] [place], [place] [address] Mynor Hargrove MD 420 [facility] 480 [place], [place] [address] 03/03/2026 3:20 PM CDT Office Visit [facility] [place] [address] [facility] [address] 4th [place] [phone] Glen Roth MD [address] [facility] [address] [place], [place] 3[address] documented as of this encounter Visit Diagnoses Not on filedocumented in this encounter Care Teams Belting Inspector Relationship Specialty Start Date End Date Josh Carrero [address] [address] PCP - General Family Medicine 08/09/20 Julian Spencer MD Orthopedics 03/08/20 Julian Spencer MD Assigned Musculoskeletal Provider 05/27/20 02/22/23 Eugenio Finney MD 420 [facility] 96 [place] [address] Assigned Pediatric Specialist Provider 06/19/20 06/03/21 Urbano Price MD [address] [place] [address] Assigned PCP 11/13/20 08/28/23 Joe Leo MD 420 [facility] 297 [place] [address] Physical Medicine and Rehabilitation 04/11/21 Joe Leo MD 420 [facility] 297 [place] [address] Assigned Neuroscience Provider 04/30/21 11/16/22 Douglas Gonzalez MD [address] [place] [address] Pediatrics 05/29/21 Douglas Gonzalez MD [address] [place] [address] Assigned Pediatric Specialist Provider 06/04/21 11/30/22 Julian Spencer MD [address] [place] [address] Assigned Musculoskeletal Provider 05/11/23 03/26/25 Azar Cruz MD [address] [place] [address] 484, [address] [place] [address] Assigned Pediatric Specialist Provider 10/18/23 Glen Roth MD [address] [place] [address] Assigned Musculoskeletal Provider 03/27/25 documented as of this encounter
--- OUTSIDE RECORDS SUMMARY | 2025-05-13 16:41 | XMS_ITS | Encounter Summary ---
Author Organization [facility] Address [address] [place] [address] Care Team Providers Care Facility Maintenance Technician Name Role Phone Julian Spencer MD Unavailable [phone] Julian Spencer MD Unavailable [phone] Eugenio Finney MD Unavailable +[phone] Josh Carrero Primary Care Provider + [phone] Urbano Price MD Unavailable +[phone] Joe Leo MD Unavailable [phone] Joe Leo MD Unavailable [phone] Douglas Gonzalez MD Unavailable + [phone] Douglas Gonzalez MD Unavailable + [phone] Julian Spencer MD Unavailable +[phone] Azar Cruz MD Unavailable + [phone] Glen Roth MD Unavailable [phone] Reason for Visit * Reason Onset Date Comments reschedule 05/02/2021 Call Back 05/02/2021 Encounter Details Date Type Department Care Team (Latest Contact Info) Description 05/02/2021 [facility] Medical Advice [facility] [place] [address] [facility] 3rd [place] [address] Joe Leo MD [address] [place] [address] 297 [place] [address] reschedule; Call Back Social History Tobacco Use Types Packs/Day Years Used Date Smoking Tobacco: Never Smokeless Tobacco: Never Alcohol Use Standard Drinks/Week Comments Not Currently 0 (1 standard drink = 0.6 oz pur e alcohol) PHQ-2 Answer Date Recorded PHQ-2 Score 0 09/01/2020 Comments No Sex and Gender Information Value Date Recorded Sex Assigned at Female 12/02/2020 1:42 PM CDT Legal Sex Female 4:19 AM UNDER WATER ASSISTANT Gender Identity Female 12/02/2020 1:42 PM CDT Sexual Orientation Straight 12/02/2020 1: 42 PM CDT COVID-19 Exposure Response Date Recorded In the last month, have you been in contact with someone who was confirmed or suspected to have Coronavirus / COVID-19? No / Unsure 04/27/2021 1:24 PM CDT documented as of this encounter Miscellaneous Notes * Telephone Encounter - Stephanie Winston LPN - 05/03/2021 9:16 AM CDT Offered open slot for today and Mother did not want to take it. They will be going out of town on the 05/16. They are willing to come in to clinic on the May. * Telephone Encounter - Maura Quintero - 05/03/2021 8:06 AM CDT Patient Mother contacting to reschedule the botox injection currently scheduled for 05/18 with Ah[facility]. Mother needing it to be rescheduled prior to patients platelet infusion so requesting it be changedto sometime within the next week, per Mold Finisher. Please reach out SAVITA to assist with rescheduling. documented in this encounter Plan of Treatment Upcoming Encounters Date Type Department Care Team (Late st Contact Info) Description 07/05/2025 3:00 PM UNDER WATER ASSISTANT Office Visit [facility] [address] [place] [phone] Azar Cruz MD 420 [facility] 484, [address] [place], [place] [address] Mynor Hargrove MD [address] [facility] 480 [place], [place] [address] 03/03/2026 3:20 PM CDT Office Visit [facility] [place] [address] [facility] [address] 4th [place] [address] Glen Roth MD [address] [place], [place] 12[address] documented as of this encounter Visit Diagnoses Not on filedocumented in this encounter Care Teams Facility Maintenance Technician Relationship Specialty Start Date End Date Josh Carrero [address] [address] PCP - General Family Medicine 08/09/20 Julian Spencer MD Orthopedics 03/08/20 Julian Spencer MD Assigned Musculoskeletal Provider 05/27/20 02/22/23 Eugenio Finney MD 420 [facility] 96 [place], [place] 25[address]65 Assigned Pediatric Specialist Provider 06/19/20 06/03/21 Urbano Price MD 2450 [place], [place] 126674 Assigned PCP 11/13/20 08/28/23 Joe Leo MD [address] [address]28[address] Physical Medicine and Rehabilitation 04/11/21 Joe Leo MD [address] 657[address] Assigned Neuroscience Provider 04/30/21 11/16/22 Douglas Gonzalez MD [facility] [address] [address] Pediatrics 05/29/21 Douglas Gonzalez MD [facility] [address] 0[address] Assigned Pediatric Specialist Provider 06/04/21 11/30/22 Julian Spencer MD [address] [place] [address] Assigned Musculoskeletal Provider 05/11/23 03/26/25 Azar Cruz MD [address] [place] [address] 484, [address] [place], [place] 487[address] Assigned Pediatric Specialist Provider 10/18/23 Glen Roth MD [address] [place] [address] [address] [place], [place] 868204 Assigned Musculoskeletal Provider 03/27/25 documented as of this encounter
--- OUTSIDE RECORDS SUMMARY | 2025-05-13 16:41 | XMS_ITS | Clinical Summary ---
Author Organization [facility] Address [address] [place] [address] Care Team Providers Care Oracle Database Developer Name Role Phone No Primary/Referring, Shreey Primary Care Provider Unavailable Source Comments You are receiving this document as you are listed as the primary care provider,follow-up provider, or the patient has been referred to you for consultation.This is in compliance with the Medicare and[facility] EHR Incentive Program,which states Providers who transition their patient to another setting of careor provider of care or refers their patient to another provider of care shouldprovide summary care record for each transition of care or referral. [employer] Allergies Active Allergy Reactions Criticality Noted Date Comments Hydromorphone Other, see comments 05/11/2019 Pt did not remember what happened, she became very angry and aggressive Medications omeprazole (PRILOSEC) 20 MG capsule Take 20 mg by mouth daily (every 24 hours). 03/31/2012 Active loratadine (AKA CLARITIN) 10 MG tablet Take 10 mg by mouth daily (every 24 hours). 03/31/2012 Active JUNEL 08/24 1-20 MG-MCG tablet Take 1 Tablet by mouth daily. 3 10/07/2018 Active gabapentin (NEURONTIN) 300 MG capsule Take 300 mg by mouth three times a day. 3 11/24/2018 Active sertraline (ZOLOFT) 100 MG tablet TAKE 1 TABLET BY MOUTH DAILY X30 DAYS: SCHEDULE APPT [phone]* * 1 11/21/2018 Active metoclopramide (REGLAN) 10 MG tablet Take 1 Tablet by mouth every 8 hours as needed for Nausea or Vomiting (for nausea or vomiting). 15 Tablet 08/07/2019 Active Active Problems Problem Noted Date Diagnosed Date Increased frequency of headaches 05/12/2012 Mild intermittent asthma with exacerbation 05/07 Hip dysplasia 05/07/2012 Scoliosis 05/07/2012 Overview (04/30/2016): S/p humaira placement January 2016. 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 Seasonal allergies 05/07/2012 Abdominal pain, chronic, generalized 04/15/2012 Routine child health exam 04/15/2012 Immunizations Immunization Administration Dates Next Due DTaP 11/22/2006, 3,04/24/2002,01/23/2002, Flu Vac Preserv Free (3+yrs) 03/31/2012,05/04/20 10 HepB Ped/Adol (0-18 yrs) 01/26/2003,07/25/2002,0 04/24/2002 IPV (Polio) 11/22/2006,04/24/2002,01/23/2002 ,2001 MMR 11/04/2004,01/23/2002 Pneumococcal 7, PED 2001,2001 TDAP (BOOSTRIX) 03/31/2012 Varicella 03/31/2012,11/22/2006 Social History Tobacco Use Types Packs/Day Years Used Date Smoking Tobacco: Never Smokeless Tobacco: Never Comments No Sex and Gender Information Value Date Recorded Sex Assigned at Not on file Legal Sex Female 5:17 AM CDT Gender Identity Not on file Sexual Orientation Not on file Last Filed Vital Signs Vital Sign Reading Time Taken Comments Blood Pressure 102/64 08/07/2019 12:32 PM NURSES ASSISTANT Pulse 90 08/07/2019 12:32 PM NURSES ASSISTANT Temperature 36.7 C (98 F) 08/07/2019 12:32 PM NURSES ASSISTANT Respiratory Rate 16 08/07/2019 12:32 PM NURSES ASSISTANT Oxygen Saturation 100% 08/07/2019 12:32 PM NURSES ASSISTANT Inhaled Oxygen Concentration - - Weight 49.9 kg (110 lb) 03/21/2018 10:42 AM CDT Height 160 cm (5' 3) 03/21/2018 10:42 AM CDT Body Mass Index 19.49 03/21/2018 10:42 AM CDT Plan of Treatment Health Maintenance Due Date Last Done Comments Cervical Cancer Screening Due 2001 Chlamydia 2001 Hep C Screening (Preventive Services) 2001 MenB Immunization Discussion 2001 Asthma ACT (score of 20 or higher) 2005 HPV Vaccine (1 - 3-dose series) 2016 HIV Screening (Preventive Services) 2017 Adult Preventive Visit 2019 DTaP/Tdap/Td Vaccine (6 - Tdap) 03/31/2022 03/31/2012, 11/22/2006, 01/26/2003, Additional history exists COVID-19 Vaccine ( season) 2025 Influenza Vaccine (#1) 2025 03/31/2012, 2009 Zoster/Shingles Vaccine (1 of 2) 2051 Pneumococcal Vaccine Aged Out 2001, 09/24/19 02 No longer eligible based on patient's age to complete this topic HepB Vaccine Completed 01/26/2003, 07/06, 04/24/2002 IPV (Polio) Vaccine Completed 11/22/2006, 04/24/2002, 01/23/2002, Additional history exists Varicella Vaccine Completed 03/31/2012, 11/22/2006 HepA Vaccine Aged Out No longer eligi ble based on patient's age to complete this topic Hib Vaccine Aged Out No longer eligi ble based on patient's age to complete this topic MCV4 Vaccine Aged Out No longer eligi ble based on patient's age to complete this topic Insurance [facility] Care Teams Oracle Database Developer Relationship Specialty Start Date End Date No Primary/Referring, Phy PCP - General 05/11/19
--- OUTSIDE RECORDS SUMMARY | 2025-05-13 16:41 | XMS_ITS | Encounter Summary ---
Author Organization [facility] Address [address] [place] [address] Care Team Providers Care African Studies Professor Name Role Phone Julian Spencer MD Unavailable [phone] Julian Spencer MD Unavailable [phone] Eugenio Finney MD Unavailable +[phone] Josh Carrero Primary Care Provider + [phone] Urbano Price MD Unavailable [phone] Joe Leo MD Unavailable [phone] Joe Leo MD Unavailable +[phone] Douglas Gonzalez MD Unavailable + [phone] Douglas Gonzalez MD Unavailable + [phone] Julian Spencer MD Unavailable +[phone] Azar Cruz MD Unavailable + [phone] Glen Roth MD Unavailable [phone] Encounter Details Date Type Department Care Team (Late st Contact Info) Description 04/19/2021 [facility] [address] 4th [place] [address] Julian Spencer MD [address] [place] [address] Social History Tobacco Use Types Packs/Day Years Used Date Smoking Tobacco: Never Smokeless Tobacco: Never Alcohol Use Standard Drinks/Week Comments Not Currently 0 (1 standard drink = 0.6 oz pur e alcohol) PHQ-2 Answer Date Recorded PHQ-2 Score 0 09/01/2020 Comments No Sex and Gender Information Value Date Recorded Sex Assigned at Female 12/02/2020 1:42 PM CDT Legal Sex Female 4:19 AM PERINATAL NURSE Gender Identity Female 12/02/2020 1:42 PM CDT Sexual Orientation Straight 12/02/2020 1: 42 PM CDT COVID-19 Exposure Response Date Recorded In the last month, have you been in contact with someone who was confirmed or suspected to have Coronavirus / COVID-19? No / Unsure 04/20/2021 10:54 AM CDT documented as of this encounter Plan of Treatment Upcoming Encounters Date Type Department Care Team (Late st Contact Info) Description 07/05/2025 3:00 PM PERINATAL NURSE Office Visit [facility] [address] [facility] [address] [place] [phone] Azar Cruz MD 420 [facility] 484, [address] [place], [place] [address] Mynor Hargrove MD 420 [facility] 480 [place], [place] [address] 03/03/2026 3:20 PM CDT Office Visit [facility] [place] [address] [facility] [address] 4th [place] [address] Glen Roth MD [address] [place], [place] [address] documented as of this encounter Visit Diagnoses Not on filedocumented in this encounter Care Teams African Studies Professor Relationship Specialty Start Date End Date Josh Carrero [address] [address] PCP - General Family Medicine 08/09/20 Julian Spencer MD Orthopedics 03/08/20 Julian Spencer MD Assigned Musculoskeletal Provider 05/27/20 02/22/23 Eugenio Finney MD 420 [facility] 96 [place], [place] [address] Assigned Pediatric Specialist Provider 06/19/20 06/03/21 Urbano Price MD [address] [place] [address]144 Assigned PCP 11/13/20 08/28/23 Joe Leo MD 420 [facility] 297 [place], [place] [address] Physical Medicine and Rehabilitation 04/11/21 Joe Leo MD 420 [facility] 297 [place], [place] [address] Assigned Neuroscience Provider 04/30/21 11/16/22 Douglas Gonzalez MD [address] [place] [address] 547864 Pediatrics 05/29/21 Douglas Gonzalez MD [address] [place] [address] Assigned Pediatric Specialist Provider 06/04/21 11/30/22 Julian Spencer MD 909 [place] [address] Assigned Musculoskeletal Provider 05/11/23 03/26/25 Azar Cruz MD 420 [facility] [address], [address] [place], [place] [address] Assigned Pediatric Specialist Provider 10/18/23 Glen Roth MD [address] [place] [id number] [place] [address] Assigned Musculoskeletal Provider 03/27/25 documented as of this encounter
--- OUTSIDE RECORDS SUMMARY | 2025-05-13 16:41 | XMS_ITS | Encounter Summary ---
Author Organization [facility] Address [address] [place] [address] Care Team Providers Care Business Rules Developer Name Role Phone Julian Spencer MD Unavailable [phone] Julian Spencer MD Unavailable [phone] Eugenio Finney MD Unavailable +[phone] Josh Carrero Primary Care Provider + [phone] Urbano Price MD Unavailable [phone] Joe Leo MD Unavailable [phone] Joe Leo MD Unavailable [phone] Douglas Gonzalez MD Unavailable + [phone] Douglas Gonzalez MD Unavailable + [phone] Julian Spencer MD Unavailable [phone] Azar Cruz MD Unavailable + [phone] Glen Roth MD Unavailable [phone] Encounter Details Date Type Department Care Team (Late st Contact Info) Description 04/24/2021 [facility] Medical [facility] [address] [place] [address], [address]rd Floor [address] [place] [address] Urbano Price MD [address] [place] [address]37014 Social History Tobacco Use Types Packs/Day Years Used Date Smoking Tobacco: Never Smokeless Tobacco: Never Alcohol Use Standard Drinks/Week Comments Not Currently 0 (1 standard drink = 0.6 oz pur e alcohol) PHQ-2 Answer Date Recorded PHQ-2 Score 0 09/01/2020 Comments No Sex and Gender Information Value Date Recorded Sex Assigned at Female 12/02/2020 1:42 PM CDT Legal Sex Female 4:19 AM ADMIN DIR Gender Identity Female 12/02/2020 1:42 PM CDT Sexual Orientation Straight 12/02/2020 1: 42 PM CDT COVID-19 Exposure Response Date Recorded In the last month, have you been in contact with someone who was confirmed or suspected to have Coronavirus / COVID-19? No / Unsure 04/27/2021 1:24 PM CDT documented as of this encounter Plan of Treatment Upcoming Encounters Date Type Department Care Team ([facility] st Contact Info) Description 07/05/2025 3:00 PM ADMIN DIR Office Visit [facility] [address] [facility] [address] [place] [address] Azar Cruz MD 420 [facility] 484, [address] [place], [place] [address] Mynor Hargrove MD 420 [facility] 480 [place], [place] [address] 03/03/2026 3:20 PM CDT Office Visit [facility] [place] [address] [facility] [address] 4th [place] [phone] Glen Roth MD [address] [place], [place] [address] documented as of this encounter Visit Diagnoses Not on filedocumented in this encounter Care Teams Business Rules Developer Relationship Specialty Start Date End Date Josh Carrero [address] [address] PCP - General Family Medicine 08/09/20 Julian Spencer MD Orthopedics 03/08/20 Julian Spencer MD Assigned Musculoskeletal Provider 05/27/20 02/22/23 Eugenio Finney MD [address] [address] Assigned Pediatric Specialist Provider 06/19/20 06/03/21 Urbano Price MD [address] [place] [address]994 Assigned PCP 11/13/20 08/28/23 Joe Leo MD [address] 423765 Physical Medicine and Rehabilitation 04/11/21 Joe Leo MD [address] 405[address] Assigned Neuroscience Provider 04/30/21 11/16/22 Douglas Gonzalez MD [address] [place] [address] 412784 Pediatrics 05/29/21 Douglas Gonzalez MD [address] [place] [address] Assigned Pediatric Specialist Provider 06/04/21 11/30/22 Julian Spencer MD 909 [place], [place] 9[address] Assigned Musculoskeletal Provider 05/11/23 03/26/25 Azar Cruz MD 420 [facility] [address], [address] [place], [place] [address] Assigned Pediatric Specialist Provider 10/18/23 Glen Roth MD [address] [place] 8[address]1700 [place], [place] [address] Assigned Musculoskeletal Provider 03/27/25 documented as of this encounter
--- OUTSIDE RECORDS SUMMARY | 2025-05-13 16:41 | XMS_ITS | Encounter Summary ---
Author Organization [facility] Address [address] [place] [address] Care Team Providers Care Catering Staff Member Name Role Phone Julian Spencer MD Unavailable +[phone] Josh Carrero Primary Care Provider + [phone] Joe Leo MD Unavailable [phone] Douglas Gonzalez MD Unavailable + [phone] Julian Spencer MD Unavailable [phone] Azar Cruz MD Unavailable +[phone] Glen Roth MD Unavailable [phone] Encounter Details Date Type Department Care Team (Late st Contact Info) Description 03/19/2025 MyC Medical Advice [facility] [address] [facility] [address] [place] [address] Tawny Alexandra Social History Tobacco Use Types Packs/Day Years [...] PM CDT Legal Sex Female 4:19 AM TEMPER MILL ROLLER Gender Identity Female 12/02/2020 1:42 PM CDT Sexual Orientation Straight 12/02/2020 1: 42 PM CDT documented as of this encounter Plan of Treatment Upcoming Encounters Date Type Department Care Team (Late st Contact Info) Description 07/05/2025 3:00 PM TEMPER MILL ROLLER Office Visit [facility] [address] [place] [phone] Azar Cruz MD 420 [facility] 484, [address] [place], [place] [address] Mynor Hargrove MD [address] [place] [address] [facility] 480 [place], [place] [address] 03/03/2026 3:20 PM CDT Office Visit [facility] [place] [address] [facility] [address] 4th [place] [phone] Glen Roth MD [address] [place], [place] [address] documented as of this encounter Visit Diagnoses Not on filedocumented in this encounter Care Teams Catering Staff Member Relationship Specialty Start Date End Date Josh Carrero [address] [address] PCP - General Family Medicine 08/09/20 Julian Spencer MD Orthopedics 03/08/20 Joe Leo MD 420 [facility] 297 [place], [place] [address] Physical Medicine and Rehabilitation 04/11/21 Douglas Gonzalez MD [address] [place] [address] [address]653 [place] [address] Pediatrics 05/29/21 Julian Spencer MD 909 [place] [address] Assigned Musculoskeletal Provider 05/11/23 03/26/25 Azar Cruz MD 420 [facility] 484, [address] [place], [place] [address] Assigned Pediatric Specialist Provider 10/18/23 Glen Roth MD [address] [place] [address] Assigned Musculoskeletal Provider 03/27/25 documented as of this encounter
--- OUTSIDE RECORDS SUMMARY | 2025-05-13 16:41 | XMS_ITS | Encounter Summary ---
Author Organization [facility] Address [address] [place] [address] Care Team Providers Care Oil Heat Technician Name Role Phone Julian Spencer MD Unavailable [phone] Julian Spencer MD Unavailable [phone] Josh Carrero Primary Care Provider + [phone] Urbano Price MD Unavailable +[phone] Joe Leo MD Unavailable [phone] Joe Leo MD Unavailable [phone] Douglas Gonzalez MD Unavailable + [phone] Douglas Gonzalez MD Unavailable + [phone] Julian Spencer MD Unavailable [phone] Azar Cruz MD Unavailable +[phone] Glen Roth MD Unavailable [phone] Encounter Details Date Type Department Care Team (Late st Contact Info) Description 06/06/2021 MyC Medical Advice [facility] [place] 9[address] [facility] 3rd [place] [address] Joe Leo MD 420 [facility] 297 [place] [address] Social History Tobacco Use Types [...] PM CDT Legal Sex Female 4:19 AM EDGING SUPERVISOR Gender Identity Female 12/02/2020 1:42 PM CDT Sexual Orientation Straight 12/02/2020 1: 42 PM CDT COVID-19 Exposure Response Date Recorded In the last month, have you been in contact with someone who was confirmed or suspected to have Coronavirus / COVID-19? No / Unsure 05/29/2021 12:48 PM CDT documented as of this encounter Miscellaneous Notes * Telephone Encounter - Dulce Adams RN - 06/16/2021 11:01 AM CST Images from the original note were not included. Joe Leo MD You 23 hours ago (11:52 AM) MG I would not change much a this time, and would like her to continue to follow up with Dr. Gonzalez in the pain clinic. If her pain is under better control, I'd be happy to see her back for any rehabilitation needs. We do have a follow up for repeat botox injection; however, since this seemed to aggravate her pain/symptoms and she also needs a platelet transfusion prior, I might suggest holding off on this. But if patient/family would like to continue please let us know and we can work to coordinate with her hematology clinic for platelet transfusion prior to procedure again. Thank you, NG SUPERVISOR documented in this encounter Plan of Treatment Upcoming Encounters Date Type Department Care Team (Late st Contact Info) Description 07/05/2025 3:00 PM EDGING SUPERVISOR Office Visit [facility] Disorders [address] [place] [phone] Azar Cruz MD [address] [place] [address] 484, [address] [place], [place] [address] Mynor Hargrove MD [address] [place] [address] [facility] 480 [place], [place] 6[address] 03/03/2026 3:20 PM CDT Office Visit [facility] [place] [address] [facility] [address] 4th [place] [phone] Glen Roth MD [address] [place], [place] [address] documented as of this encounter Visit Diagnoses Not on filedocumented in this encounter Care Teams Oil Heat Technician Relationship Specialty Start Date End Date Josh Carrero [address] [address] PCP - General Family Medicine 08/09/20 Julian Spencer MD Orthopedics 03/08/20 Julian Spencer MD Assigned Musculoskeletal Provider 05/27/20 02/22/23 Urbano Price MD 2450 [place] [address] Assigned PCP 11/13/20 08/28/23 Joe Leo MD [address] [facility] 297 [place], [place] [address] Physical Medicine and Rehabilitation 04/11/21 Joe Leo MD [address] [facility] 297 [place] [address] Assigned Neuroscience Provider 04/30/21 11/16/22 [place] [address] [place] [address] Pediatrics 05/29/21 [place] [address] [place] [address] Assigned Pediatric Specialist Provider 06/04/21 11/30/22 Julian Spencer MD [address] [place] [address] Assigned Musculoskeletal Provider 05/11/23 03/26/25 Azar Cruz MD 420 [facility] 484, [address] [place], [place] [address] Assigned Pediatric Specialist Provider 10/18/23 Glen Roth MD [address] [place] [address]244 Assigned Musculoskeletal Provider 03/27/25 documented as of this encounter
--- OUTSIDE RECORDS SUMMARY | 2025-05-13 16:41 | XMS_ITS | Encounter Summary ---
Author Organization [place] Address [address] [place] [address] Care Team Providers Care Scientific Research Associate Name Role Phone Julian Spencer MD Unavailable [phone] Julian Spencer MD Unavailable [phone] Josh Carrero Primary Care Provider + [phone] Urbano Price MD Unavailable +[phone] Joe Leo MD Unavailable [phone] Joe Leo MD Unavailable [phone] Douglas Gonzalez MD Unavailable + [phone] Douglas Gonzalez MD Unavailable + [phone] Julian Spencer MD Unavailable +[phone] Azar Cruz MD Unavailable +[phone] Glen Roth MD Unavailable [phone] Encounter Details Date Type Department Care Team (Late st Contact Info) Description 08/08/2021 [facility] [address] [place] [address], 3rd Floor [address] [place] [address] Urbano Price MD [address] [place] [address] Social History Tobacco Use Types Packs/Day Years Used Date Smoking Tobacco: Never Smokeless Tobacco: Never Alcohol Use Standard Drinks/Week Comments Not Currently 0 (1 standard drink = 0.6 oz pur e alcohol) PHQ-2 Answer Date Recorded PHQ-2 Score 0 09/01/2020 Comments No Sex and Gender Information Value Date Recorded Sex Assigned at Female 12/02/2020 1:42 PM CDT Legal Sex Female 4:19 AM FURNACE ERECTOR Gender Identity Female 12/02/2020 1:42 PM CDT Sexual Orientation Straight 12/02/2020 1: 42 PM CDT documented as of this encounter Plan of Treatment Upcoming Encounters Date Type Department Care Team ([facility] st Contact Info) Description 07/05/2025 3:00 PM FURNACE ERECTOR Office [facility] [address] [place] [phone] Azar Cruz MD 420 [facility] 484, [address] [place], [place] [address] Mynor Hargrove MD 420 [facility] 480 [place], [place] [address] 03/03/2026 3:20 PM CDT Office Visit [facility] [place] 909 [facility] SE 4th [place] [phone] Glen Roth MD 25[address] [facility] [address] [place], [place] [address] documented as of this encounter Visit Diagnoses Not on filedocumented in this encounter Care Teams Scientific Research Associate Relationship Specialty Start Date End Date Josh Carrero [address] [address] PCP - General Family Medicine 08/09/20 Julian Spencer MD Orthopedics 03/08/20 Julian Spencer MD Assigned Musculoskeletal Provider 05/27/20 02/22/23 Urbano Price MD [facility] [place], [place] [address] Assigned PCP 11/13/20 08/28/23 Joe Leo MD 420 [facility] 297 [place], [place] [address] Physical Medicine and Rehabilitation 04/11/21 Joe Leo MD 420 [facility] 297 [place], [place] [address] Assigned Neuroscience Provider 04/30/21 11/16/22 Douglas Gonzalez MD [address] [place] [address] Pediatrics 05/29/21 Douglas Gonzalez MD [address] [place] [address] Assigned Pediatric Specialist Provider 06/04/21 11/30/22 Julian Spencer MD 909 [place], [place] [address]645 Assigned Musculoskeletal Provider 05/11/23 03/26/25 Azar Cruz MD 420 [facility] 484, [address] [place], [place] [address] Assigned Pediatric Specialist Provider 10/18/23 Glen Roth MD [address] [place] 1307400 [place] [address] Assigned Musculoskeletal Provider 03/27/25 documented as of this encounter
--- OUTSIDE RECORDS SUMMARY | 2025-05-13 16:41 | XMS_ITS | Encounter Summary ---
Author Organization [facility] Address [address] [place] [address] Care Team Providers Care Safety Deposit Boxes Custodian Name Role Phone Julian Spencer MD Unavailable [phone] Julian Spencer MD Unavailable +[phone] Eugenio Finney MD Unavailable + [phone] Josh Carrero Primary Care Provider + [phone] Urbano Price MD Unavailable [phone] Joe Leo MD Unavailable [phone] Joe Leo MD Unavailable [phone] Douglas Gonzalez MD Unavailable + [phone] Douglas Gonzalez MD Unavailable + [phone] Julian Spencer MD Unavailable [phone] Azar Cruz MD Unavailable + [phone] Glen Roth MD Unavailable [phone] Encounter Details Date Type Department Care Team (Late st Contact Info) Description 06/01/[address] [facility] [address] 3rd [place] [address] Douglas Gonzalez MD [facility] M653 [place], [place] [address] Social History Tobacco Use Types Packs/Day Years Used Date Smoking Tobacco: Never Smokeless Tobacco: Never Alcohol Use Standard Drinks/Week Comments Not Currently 0 (1 standard drink = 0.6 oz pur e alcohol) PHQ-2 Answer Date Recorded PHQ-2 Score 0 09/01/2020 Comments No Sex and Gender Information Value Date Recorded Sex Assigned at Female 12/02/2020 1:42 PM CDT Legal Sex Female 4:19 AM MATERIALS CLERK Gender Identity Female 12/02/2020 1:42 PM CDT Sexual Orientation Straight 12/02/2020 1: 42 PM CDT COVID-19 Exposure Response Date Recorded In the last month, have you been in contact with someone who was confirmed or suspected to have Coronavirus / COVID-19? No / Unsure 05/29/2021 12:48 PM CDT documented as of this encounter Plan of Treatment Upcoming Encounters Date Type Department Care Team ([facility] Contact Info) Description 07/05/2025 3:00 PM MATERIALS CLERK Office Visit [facility] [address] [facility] [address] [place] [phone] Azar Cruz MD 420 [facility] 484, [address] [place] [address] Mnyor Hargrove MD 420 [facility] 480 [place], [place] [address] 03/03/2026 3:20 PM CDT Office Visit [facility] [place] 909 [facility] SE 4th [place] [address] Glen Roth MD [address] [facility] [address] [place], [place] [address] documented as of this encounter Visit Diagnoses Not on filedocumented in this encounter Care Teams Safety Deposit Boxes Custodian Relationship Specialty Start Date End Date Josh Carrero [address] [address] PCP - General Family Medicine 08/09/20 Julian Spencer MD Orthopedics 03/08/20 Julian Spencer MD Assigned Musculoskeletal Provider 05/27/20 02/22/23 Eugenio Finney MD 420 [facility] 96 [place], [place] 59[address]85 Assigned Pediatric Specialist Provider 06/19/20 06/03/21 Urbano Price MD [address] [place] [address]264 Assigned PCP 11/13/20 08/28/23 Joe Leo MD 420 [facility] 297 [place], [place] [address] Physical Medicine and Rehabilitation 04/11/21 Joe Leo MD 420 [facility] 297 [place], [place] 366825 Assigned Neuroscience Provider 04/30/21 11/16/22 Douglas Gonzalez MD [address] [place] [address]33[address] Pediatrics 05/29/21 Douglas Gonzalez MD [address] [place] [address] Assigned Pediatric Specialist Provider 06/04/21 11/30/22 Julian Spencer MD 909 [place] [address] Assigned Musculoskeletal Provider 05/11/23 03/26/25 Azar Cruz MD 420 [facility] 484, RO[address] [place] [address] Assigned Pediatric Specialist Provider 10/18/23 Glen Roth MD [address] [place] [address] Assigned Musculoskeletal Provider 03/27/25 documented as of this encounter
--- OUTSIDE RECORDS SUMMARY | 2025-05-13 16:41 | XMS_ITS | Encounter Summary ---
Author Organization [place] Address [address] [place] [address] Care Team Providers Care Instrumentation And Control Technician Name Role Phone Julian Spencer MD Unavailable [phone] Josh Carrero Primary Care Provider + [phone] Urbano Price MD Unavailable +[phone] Joe Leo MD Unavailable [phone] Douglas Gonzalez MD Unavailable + [phone] Julian Spencer MD Unavailable [phone] Azar Cruz MD Unavailable [phone] Glen Roth MD Unavailable [phone] Encounter Details Date Type Department Care Team (Late st Contact Info) Description 04/03/2023 [facility] [place] [facility] [address] [address] Julian Spencer MD [address] [place] [address] Social History Tobacco Use Types Packs/Day Years Used Date Smoking Tobacco: Never Smokeless Tobacco: Never Alcohol Use Standard Drinks/Week Comments Not Currently 0 (1 standard drink = 0.6 oz pur e alcohol) PHQ-2 Answer Date Recorded PHQ-2 Score 0 09/01/2020 Comments No Sex and Gender Information Value Date Recorded Sex Assigned at Female 12/02/2020 1:42 PM CDT Legal Sex Female 4:19 AM PROGRAM MANAGEMENT MANAGER Gender Identity Female 12/02/2020 1:42 PM CDT Sexual Orientation Straight 12/02/2020 1: 42 PM CDT documented as of this encounter Plan of Treatment Upcoming Encounters Date Type Department Care Team (Late st Contact Info) Description 07/05/2025 3:00 PM PROGRAM MANAGEMENT MANAGER Office Visit [facility] [address] [facility] [address] [place] [phone] Azar Cruz MD 420 [facility] 484, [address] [place], [place] [address] Mynor Hargrove MD 420 [facility] 480 [place], [place] [address] 03/03/2026 3:20 PM CDT Office Visit [facility] [place] [address] [facility] SE 4th [place] [phone] Glen Roth MD 25[address] [facility] [address] [place], [place] [address] documented as of this encounter Visit Diagnoses Not on filedocumented in this encounter Care Teams Instrumentation And Control Technician Relationship Specialty Start Date End Date Josh Carrero [address] [address] PCP - General Family Medicine 08/09/20 Julian Spencer MD Orthopedics 03/08/20 Urbano Price MD [facility] [place], [place] 212224 Assigned PCP 11/13/20 08/28/23 Joe Leo MD 420 [facility] 297 [place], [place] [address] Physical Medicine and Rehabilitation 04/11/21 Douglas Gonzalez MD 2450 [facility] [address]653 [place], [place] [address] Pediatrics 05/29/21 Julian Spencer MD 909 [place], [place] [address] Assigned Musculoskeletal Provider 05/11/23 03/26/25 Azar Cruz MD 420 [facility] 484, [address] [place], [place] [address] Assigned Pediatric Specialist Provider 10/18/23 Glen Roth MD [address] [place], [place] [address] Assigned Musculoskeletal Provider 03/27/25 documented as of this encounter
--- OUTSIDE RECORDS SUMMARY | 2025-05-13 16:41 | XMS_ITS | Encounter Summary ---
Author Organization [place] Address [address] [place] [address]. [place] [address] Care Team Providers Care Tongue Trimmer Name Role Phone Julian Spencer MD Unavailable [phone] Julian Spencer MD Unavailable [phone] Josh Carrero Primary Care Provider + [phone] Urbano Price MD Unavailable +[phone] Joe Leo MD Unavailable [phone] Joe Leo MD Unavailable [phone] Douglas Gonzalez MD Unavailable + [phone] Douglas Gonzalez MD Unavailable + [phone] Julian Spencer MD Unavailable [phone] Azar Cruz MD Unavailable [phone] Glen Roth MD Unavailable [phone] Encounter Details Date Type Department Care Team (Late st Contact Info) Description 07/06/2021 [facility] Medical Advice [facility] Pediatric Specialty Clinic [facility] [address] 3rd [place] [address] Douglas Gonzalez MD [facility] [address] [place] [address] Social History Tobacco Use Types [...] PM CDT Legal Sex Female 4:19 AM CAPACITOR TESTER Gender Identity Female 12/02/2020 1:42 PM CDT Sexual Orientation Straight 12/02/2020 1: 42 PM CDT COVID-19 Exposure Response Date Recorded In the last month, have you been in contact with someone who was confirmed or suspected to have Coronavirus / COVID-19? No / Unsure 07/04/2021 2:47 PM CAPACITOR TESTER documented as of this encounter Plan of Treatment Upcoming Encounters Date Type Department Care Team ([facility] st Contact Info) Description 07/05/2025 3:00 PM CAPACITOR TESTER Office Visit [facility] [address] [facility] [address] [place] [phone] Azar Cruz MD 420 [facility] 484, [address] [place], [place] [address] Mynor Hargrove MD 420 [facility] 480 [place], [place] [address] 03/03/2026 3:20 PM CDT Office Visit [facility] [place] 909 [facility] SE 4th [place] [address] Glen Roth MD 25[address] [facility] [address] [place], [place] [address] documented as of this encounter Visit Diagnoses Not on filedocumented in this encounter Care Teams Tongue Trimmer Relationship Specialty Start Date End Date Josh Carrero [address] [address] PCP - General Family Medicine 08/09/20 Julian Spencer MD Orthopedics 03/08/20 Julian Spencer MD Assigned Musculoskeletal Provider 05/27/20 02/22/23 Urbano Price MD [address] [place] [address] Assigned PCP 11/13/20 08/28/23 Joe Leo MD [address] [place] [address] 883965 Physical Medicine and Rehabilitation 04/11/21 Joe Leo MD [address] [place] [address] 854665 Assigned Neuroscience Provider 04/30/21 11/16/22 Douglas Gonzalez MD [address] [place] [address] 1249[address] Pediatrics 05/29/21 Douglas Gonzalez MD [address] [place] [address] 100[address] Assigned Pediatric Specialist Provider 06/04/21 11/30/22 Julian Spencer MD [address] [place] [address] Assigned Musculoskeletal Provider 05/11/23 03/26/25 Azar Cruz MD [address] [place] [address] 484, [address] [place] [address] Assigned Pediatric Specialist Provider 10/18/23 Glen Roth MD [facility] [address] [place] [address] Assigned Musculoskeletal Provider 03/27/25 documented as of this encounter
--- OUTSIDE RECORDS SUMMARY | 2025-05-13 16:41 | XMS_ITS | Encounter Summary ---
Author Organization [place] [place] Address [address] [place] [address] Care Team Providers Care Cardiac Sonographer Name Role Phone Julian Spencer MD Unavailable [phone] Josh Carrero Primary Care Provider + [phone] Joe Leo MD Unavailable [phone] Duoglas Gonzalez MD Unavailable + [phone] Julian Spencer MD Unavailable [phone] Azar Cruz MD Unavailable +[phone] Glen Roth MD Unavailable [phone] Encounter Details Date Type Department Care Team (Late st Contact Info) Description 09/08/2024 [facility] [place] [facility] Centralized Scheduling [facility] [place] [address] Chaitanya Grant Social History Tobacco Use Types Packs/Day Years [...] PM CDT Legal Sex Female 4:19 AM FUNERAL HOME ATTENDANT Gender Identity Female 12/02/2020 1:42 PM CDT Sexual Orientation Straight 12/02/2020 1: 42 PM CDT documented as of this encounter Plan of Treatment Upcoming Encounters Date Type Department Care Team (Late st Contact Info) Description 07/05/2025 3:00 PM FUNERAL HOME ATTENDANT Office Visit [facility] Disorders [address] [place] [phone] Azar Cruz MD 420 [facility] 484, [address] [place], [place] [address] Mynor Hargrove MD [address] [place] [address] [facility] 480 [place], [place] [address] 03/03/2026 3:20 PM CDT Office Visit [facility] [place] 909 [facility] SE 4th [place] [address] Glen Roth MD [address] [place], [place] [address] documented as of this encounter Visit Diagnoses Not on filedocumented in this encounter Care Teams Cardiac Sonographer Relationship Specialty Start Date End Date Josh Carrero [address] [phone] PCP - General Family Medicine 08/09/20 Julian Spencer MD Orthopedics 03/08/20 Joe Leo MD 420 [facility] 297 [place], [place] [address] Physical Medicine and Rehabilitation 04/11/21 Douglas Gonzalez MD [address] [place] [address] M653 [place] [address] Pediatrics 05/29/21 Julian Spencer MD 909 [place] [address] Assigned Musculoskeletal Provider 05/11/23 03/26/25 Azar Cruz MD [address] [place] [address] 484, [address] [place] [address] Assigned Pediatric Specialist Provider 10/18/23 Glen Roth MD [facility] [address] [address] Assigned Musculoskeletal Provider 03/27/25 documented as of this encounter
--- OUTSIDE RECORDS SUMMARY | 2025-05-13 16:41 | XMS_ITS | Encounter Summary ---
Author Organization [facility] Address [address] [place] [address] Care Team Providers Care Ledger Clerk Name Role Phone Julian Spencer MD Unavailable +[phone] Julian Spencer MD Unavailable +[phone] Josh Carrero Primary Care Provider + [phone] Urbano Price MD Unavailable +[phone] Joe Leo MD Unavailable +[phone] Joe Leo MD Unavailable [phone] Douglas Gonzalez MD Unavailable + [phone] Douglas Gonzalez MD Unavailable +[phone] Julian Spencer MD Unavailable +[phone] Azar Cruz MD Unavailable +[phone] Glen Roth MD Unavailable +[phone] Encounter Details Date Type Department Care Team (Late st Contact Info) Description 07/31/2021 [facility] [address]th [place] [address] Julian Spencer MD [address] [place] [address] Social History Tobacco Use Types Packs/Day Years Used Date Smoking Tobacco: Never Smokeless Tobacco: Never Alcohol Use Standard Drinks/Week Comments Not Currently 0 (1 standard drink = 0.6 oz pur e alcohol) PHQ-2 Answer Date Recorded PHQ-2 Score 0 09/01/2020 Comments No Sex and Gender Information Value Date Recorded Sex Assigned at Female 12/02/2020 1:42 PM CDT Legal Sex Female 4:19 AM SLIDE DEVELOPER Gender Identity Female 12/02/2020 1:42 PM CDT Sexual Orientation Straight 12/02/2020 1: 42 PM CDT COVID-19 Exposure Response Date Recorded In the last month, have you been in contact with someone who was confirmed or suspected to have Coronavirus / COVID-19? No / Unsure 07/04/2021 2:47 PM SLIDE DEVELOPER documented as of this encounter Plan of Treatment Upcoming Encounters Date Type Department Care Team ([facility] st Contact Info) Description 07/05/2025 3:00 PM SLIDE DEVELOPER Office Visit [facility] [address] [facility] [address] [place] [phone] Azar Cruz MD 420 [facility] 484, [address] [place], [place] 763165 Mynor Hargrove MD 420 [facility] 480 [place], [place] 9[address]145 03/03/2026 3:20 PM CDT Office Visit [facility] Tower [address] [facility] [address] 4th [place] [address] Glen Roth MD [address] [facility] [address] [place], [place] 762534 documented as of this encounter Visit Diagnoses Not on filedocumented in this encounter Care Teams Ledger Clerk Relationship Specialty Start Date End Date Josh Carrero [address] [address] PCP - General Family Medicine 1/5/21 Julian Spencer MD Orthopedics 03/08/20 Julian Spencer MD Assigned Musculoskeletal Provider 05/27/20 02/22/23 Urbano Price MD [address] [place] [place] [address] [id number] Assigned PCP 11/13/20 08/28/23 Joe Leo MD [address] [place] [address] [id number] Physical Medicine and Rehabilitation 04/11/21 Joe Leo MD [address] [place] [address] 935515 Assigned Neuroscience Provider 04/30/21 11/16/22 Douglas Gonzalez MD [address] [place] [address] 860514 Pediatrics 05/29/21 Douglas Gonzalez MD [address] [place] [address] 764804 Assigned Pediatric Specialist Provider 06/04/21 11/30/22 Julian Spencer MD [address] [place] [address] 865415 Assigned Musculoskeletal Provider 05/11/23 03/26/25 Azar Cruz MD [address] [place] [address] 484, [address] [place] [address] Assigned Pediatric Specialist Provider 10/18/23 Glen Roth MD [address] [place] [address] Assigned Musculoskeletal Provider 03/27/25 documented as of this encounter
--- OUTSIDE RECORDS SUMMARY | 2025-05-13 16:41 | XMS_ITS | Encounter Summary ---
Author Organization [facility] Address [address] [place] [address] Care Team Providers Care Electrical Engineering Technologist Name Role Phone Julian Spencer MD Unavailable [phone] Julian Spencer MD Unavailable +[phone] Eugenio Finney MD Unavailable +[phone] Josh Carrero Primary Care Provider + [phone] Urbano Price MD Unavailable [phone] Joe Leo MD Unavailable +[phone] Joe Leo MD Unavailable +[phone] Douglas Gonzalez MD Unavailable + [phone] Douglas Gonzalez MD Unavailable + [phone] Julian Spencer MD Unavailable +[phone] Azar Cruz MD Unavailable + [phone] Glen Roth MD Unavailable +[phone] Encounter Details Date Type Department Care Team (Late st Contact Info) Description 05/01/2021 [facility] Medical Advice [facility] [place] [address] [facility] 3rd [place] [address] Joe Leo MD 420 [facility] 297 [place] [address] Social History Tobacco Use Types [...] PM CDT Legal Sex Female 4:19 AM MOTION PICTURE SET GRIP Gender Identity Female 12/02/2020 1:42 PM CDT Sexual Orientation Straight 12/02/2020 1: 42 PM CDT COVID-19 Exposure Response Date Recorded In the last month, have you been in contact with someone who was confirmed or suspected to have Coronavirus / COVID-19? No / Unsure 04/27/2021 1:24 PM CDT documented as of this encounter Plan of Treatment Upcoming Encounters Date Type Department Care Team ([facility] Contact Info) Description 07/05/2025 3:00 PM MOTION PICTURE SET GRIP Office Visit [facility] [address] [facility] [address] [place] [phone] Azar Cruz MD 420 [facility] 484, [address] [place], [place] [address] Mynor Hargrove MD 420 [facility] 480 [place], [place] [address]88[address] 03/03/2026 3:20 PM CDT Office Visit [facility] [place] [address] [facility] [address] 4th [place] [address] Glen Roth MD [address] [facility] [address] [place], [place] 395064 documented as of this encounter Visit Diagnoses Not on filedocumented in this encounter Care Teams Electrical Engineering Technologist Relationship Specialty Start Date End Date Josh Carrero [address] [address] PCP - General Family Medicine 08/09/20 Julian Spencer MD Orthopedics 03/08/20 Julian Spencer MD Assigned Musculoskeletal Provider 05/27/20 02/22/23 Eugenio Finney MD 420 [facility] 96 [place], [place] 966035 Assigned Pediatric Specialist Provider 06/19/20 06/03/21 Urbano Price MD [address] [place] [address] [id number] Assigned PCP 11/13/20 08/28/23 Joe Leo MD 420 [facility] 297 [place], [place] 753035 Physical Medicine and Rehabilitation 04/11/21 Joe Leo MD 420 [facility] 297 [place], [place] 814825 Assigned Neuroscience Provider 04/30/21 11/16/22 Douglas Gonzalez MD [address] [place] [address] 222844 Pediatrics 05/29/21 Douglas Gonzalez MD [address] [place] [address] Assigned Pediatric Specialist Provider 06/04/21 11/30/22 Julian Spencer MD 909 [place] [address] Assigned Musculoskeletal Provider 05/11/23 03/26/25 Azar Cruz MD 420 [facility] 484, [address] [place] [address] Assigned Pediatric Specialist Provider 10/18/23 Glen Roth MD [address] [place] [address] Assigned Musculoskeletal Provider 03/27/25 documented as of this encounter
--- OUTSIDE RECORDS SUMMARY | 2025-05-13 16:41 | XMS_ITS | Encounter Summary ---
Author Organization [facility] Address [address] [place] [address] Care Team Providers Care Fittings Finisher Name Role Phone Julian Spencer MD Unavailable +[phone] Julian Spencer MD Unavailable [phone] Eugenio Finney MD Unavailable +[phone] Josh Carrero Primary Care Provider + [phone] Urbano Price MD Unavailable [phone] Joe Leo MD Unavailable +[phone] Joe Leo MD Unavailable +[phone] Douglas Gonzalez MD Unavailable + [phone] Douglas Gonzalez MD Unavailable +[phone] Julian Spencer MD Unavailable +[phone] Azar Cruz MD Unavailable +[phone] Glen Roth MD Unavailable [phone] Encounter Details Date Type Department Care Team (Late st Contact Info) Description 03/20/2021 [facility] [address] [place] [address] [place] [address] [place] [address] Social History Tobacco Use Types Packs/Day Years Used Date Smoking Tobacco: Never Smokeless Tobacco: Never Alcohol Use Standard Drinks/Week Comments Not Currently 0 (1 standard drink = 0.6 oz pur e alcohol) PHQ-2 Answer Date Recorded PHQ-2 Score 0 09/01/2020 Comments No Sex and Gender Information Value Date Recorded Sex Assigned at Female 12/02/2020 1:42 PM CDT Legal Sex Female 4:19 AM MARKETING COMMUNICATIONS MANAGER Gender Identity Female 12/02/2020 1:42 PM CDT Sexual Orientation Straight 12/02/2020 1: 42 PM CDT COVID-19 Exposure Response Date Recorded In the last month, have you been in contact with someone who was confirmed or suspected to have Coronavirus / COVID-19? No / Unsure 03/21/2021 8:41 AM CDT documented as of this encounter Plan of Treatment Upcoming Encounters Date Type Department Care Team (Late st Contact Info) Description 07/05/2025 3:00 PM MARKETING COMMUNICATIONS MANAGER Office Visit [facility] [address] [facility] [address] [place] [phone] Azar Cruz MD 420 [facility] 484, [address] [place], [place] 766[address] Mynor Hargrove MD 420 [facility] 480 [place] [address] 03/03/2026 3:20 PM CDT Office Visit [facility] [place] [address] [facility] [address] 4th [place] [address] Glen Roth MD [address] [place], [place] 972464 documented as of this encounter Visit Diagnoses Not on filedocumented in this encounter Care Teams Fittings Finisher Relationship Specialty Start Date End Date Josh Carrero [address] [address] PCP - General Family Medicine 08/09/20 Julian Spencer MD Orthopedics 03/08/20 Julian Spencer MD Assigned Musculoskeletal Provider 05/27/20 02/22/23 Eugenio Finney MD 420 [facility] 96 [place], [place] 459705 Assigned Pediatric Specialist Provider 06/19/20 06/03/21 Urbano Price MD [address] [place] [address] 128914 Assigned PCP 11/13/20 08/28/23 Joe Leo MD 420 [facility] 297 [place], [place] 386575 Physical Medicine and Rehabilitation 04/11/21 Joe Leo MD 420 [facility] 297 [place], [place] 091505 Assigned Neuroscience Provider 04/30/21 11/16/22 Douglas Gonzalez MD [address] [place] [address] 277994 Pediatrics 05/29/21 Douglas Gonzalez MD [address] [place] [address] Assigned Pediatric Specialist Provider 06/04/21 11/30/22 Julian Spencer MD 909 [place] [address] Assigned Musculoskeletal Provider 05/11/23 03/26/25 Azar Cruz MD 420 [facility] 484, [address] [place], [place] 264485 Assigned Pediatric Specialist Provider 10/18/23 Glen Roth MD [address] [place] [id number] [place] [address] Assigned Musculoskeletal Provider 03/27/25 documented as of this encounter
--- OUTSIDE RECORDS SUMMARY | 2025-05-13 16:42 | XMS_ITS | Encounter Summary ---
Author Organization [facility] Address [address] [place] [address]. [place] [address] Care Team Providers Care Belt Sander Name Role Phone Jluian Spencer MD Unavailable +[phone] Josh Carrero Primary Care Provider + [phone] Joe Leo MD Unavailable [phone] Douglas Gonzalez MD Unavailable + [phone] Azar Cruz MD Unavailable +[phone] Glen Roth MD Unavailable [phone] Encounter Details Date Type Department Care Team (Late st Contact Info) Description 04/29/2025 [facility] Medical Advice [facility] [address] [place] [address] 9th [place] [address] Azar Cruz MD [address] [place] [address] 484, [address] [place] [address] Social History Tobacco Use Types [...] PM CDT Legal Sex Female 4:19 AM MEDICAL RESEARCH SCIENTIST Gender Identity Female 12/02/2020 1:42 PM CDT Sexual Orientation Straight 12/02/2020 1: 42 PM CDT documented as of this encounter Plan of Treatment Upcoming Encounters Date Type Department Care Team (Late st Contact Info) Description 07/05/2025 3:00 PM MEDICAL RESEARCH SCIENTIST Office Visit [facility] [address] [facility] [address] [place] [address] Azar Cruz MD 420 [facility] 484, [address] [place], [place] [address] Mynor Hargrove MD 420 [facility] 480 [place], [place] 5[address] 03/03/2026 3:20 PM CDT Office Visit [facility] [place] 9[address] [facility] [address] 4th [place] [phone] Glen Roth MD [address] [place], [place] 847764 documented as of this encounter Visit Diagnoses Not on filedocumented in this encounter Care Teams Belt Sander Relationship Specialty Start Date End Date Josh Carrero [address] [address] PCP - General Family Medicine 08/09/20 Julian Spencer MD Orthopedics 03/08/20 Joe Leo MD 420 [facility] 297 [place], [place] 526[address] Physical Medicine and Rehabilitation 04/11/21 Douglas Gonzalez MD 2450 [facility] [address] [place] [address] Pediatrics 05/29/21 Azar Cruz MD 420 [facility] 484, [address] [place], [place] 814405 Assigned Pediatric Specialist Provider 10/18/23 Glen Roth MD [address] [place], [place] 896914 Assigned Musculoskeletal Provider 03/27/25 documented as of this encounter
--- OUTSIDE RECORDS SUMMARY | 2025-05-13 16:42 | XMS_ITS | Encounter Summary ---
Author Organization [facility] Address [address] [place] [address]. [place] [address] Care Team Providers Care Music Store Manager Name Role Phone Julian Spencer MD Unavailable [phone] Josh Carrero Primary Care Provider [phone] Joe Leo MD Unavailable [phone] Douglas Gonzalez MD Unavailable [phone] Julian Spencer MD Unavailable +[phone] Azar Cruz MD Unavailable +[phone] Glen Roth MD Unavailable [phone] Encounter Details Date Type Department Care Team (Late st Contact Info) Description 03/17/2024 [facility] Medical Advice [facility] 9th [place] [address] Azar Cruz MD 420 [facility] 484, [address] [place] [address] Social History Tobacco Use Types Packs/Day Years Used Date Smoking Tobacco: Never Smokeless Tobacco: Never Alcohol Use Standard Drinks/Week Comments Not Currently 0 (1 standard drink = 0.6 oz pur e alcohol) PHQ-2 Answer Date Recorded PHQ-2 Score 4 09/25/2023 Adolescent Education Answer Date Record ed Getting School Help Needed Not on file 04/29 Comments No Sex and Gender Information Value Date Recorded Sex Assigned at Female 12/02/2020 1:42 PM CDT Legal Sex Female 4:19 AM HYDROELECTRIC PRODUCTION TECHNICIAN Gender Identity Female 12/02/2020 1:42 PM CDT Sexual Orientation Straight 12/02/2020 1: 42 PM CDT documented as of this encounter Plan of Treatment Upcoming Encounters Date Type Department Care Team (Late st Contact Info) Description 07/05/2025 3:00 PM HYDROELECTRIC PRODUCTION TECHNICIAN Office Visit [facility] [address] [facility] [address] [place] [address] Azar Cruz MD 420 [facility] 484, [address] [place] [address] Mynor Hargrove MD 420 [facility] 480 [place], [place] [address] 03/03/2026 3:20 PM CDT Office Visit [facility] [place] 909 [facility] SE 4th [place] [address] Glen Roth MD [address] [facility] [address] [place], [place] 7[address] documented as of this encounter Visit Diagnoses Not on filedocumented in this encounter Care Teams Music Store Manager Relationship Specialty Start Date End Date Josh Carrero [address] [phone] PCP - General Family Medicine 08/09/20 Julian Spencer MD Orthopedics 03/08/20 Joe Leo MD 420 [facility] 297 [place] [address] Physical Medicine and Rehabilitation 04/11/21 Douglas Gonzalez MD 2450 [facility] [address] [place] [address] Pediatrics 05/29/21 Julian Spencer MD [address] [place] [address] 160435 Assigned Musculoskeletal Provider 05/11/23 03/26/25 Azar Cruz MD 420 [facility] 484, [address] [place], [place] 739915 Assigned Pediatric Specialist Provider 10/18/23 Glen Roth MD [address] [place] [address] [address] [place] [address] Assigned Musculoskeletal Provider 03/27/25 documented as of this encounter
--- OUTSIDE RECORDS SUMMARY | 2025-05-13 16:42 | XMS_ITS | Encounter Summary ---
Author Organization [facility] Address [address] [place] [address]. [place] [address] Care Team Providers Care Technical Coordinator Name Role Phone Julian Spencer MD Unavailable [phone] Julian Spencer MD Unavailable +[phone] Josh Carrero Primary Care Provider + [phone] Urbano Price MD Unavailable +[phone] Joe Leo MD Unavailable [phone] Joe Leo MD Unavailable [phone] Douglas Gonzalez MD Unavailable + [phone] Douglas Gonzalez MD Unavailable [phone] Julian Spencer MD Unavailable [phone] Azar Cruz MD Unavailable + [phone] Glen Roth MD Unavailable [phone] Encounter Details Date Type Department Care Team (Late st Contact Info) Description 12/07/2021 [facility] 9th Floor 2450 [place] [address] Urbano Price MD [address] [place] [address] Social History Tobacco Use Types [...] PM CDT Legal Sex Female 4:19 AM ASSOCIATE PASTOR Gender Identity Female 12/02/2020 1:42 PM CDT Sexual Orientation Straight 12/02/2020 1: 42 PM CDT documented as of this encounter Plan of Treatment Upcoming Encounters Date Type Department Care Team ([facility] st Contact Info) Description 07/05/2025 3:00 PM ASSOCIATE PASTOR Office Visit [facility] [address] [facility] [address] [place] [address] Azar Cruz MD 420 [facility] 484, [address] [place], [place] 315[address] Mynor Hargrove MD 420 [facility] 480 [place] [address] 03/03/2026 3:20 PM CDT Office Visit [facility] [place] 9[address] [facility] [address] 4th [place] [phone] Glen Roth MD [address] [facility] [address] [place], [place] 187884 documented as of this encounter Visit Diagnoses Not on filedocumented in this encounter Care Teams Technical Coordinator Relationship Specialty Start Date End Date Josh Carrero [address] [address] PCP - General Family Medicine 08/09/20 Julian Spencer MD Orthopedics 03/08/20 Julian Spencer MD Assigned Musculoskeletal Provider 05/27/20 02/22/23 Urbano Price MD [address] [place] [address] 998074 Assigned PCP 11/13/20 08/28/23 Jeo Leo MD 420 [facility] 297 [place], [place] [address] Physical Medicine and Rehabilitation 04/11/21 Joe Leo MD [address] [place] [address] 297 [place], [place] [address]85 Assigned Neuroscience Provider 04/30/21 11/16/22 Douglas Gonzalez MD [address] [place] [address] 071394 Pediatrics 05/29/21 Douglas Gonzalez MD [address] [place] [address] 644854 Assigned Pediatric Specialist Provider 06/04/21 11/30/22 Julian Spencer MD 9 [place], [place] 043015 Assigned Musculoskeletal Provider 05/11/23 03/26/25 Azar Cruz MD 420 [facility] 484, [address] [place], [place] 603345 Assigned Pediatric Specialist Provider 10/18/23 Glen Roth MD [address] [address] Assigned Musculoskeletal Provider 03/27/25 documented as of this encounter
--- OUTSIDE RECORDS SUMMARY | 2025-05-13 16:42 | XMS_ITS | Encounter Summary ---
Author Organization [place] Address [address] [place] [address] Care Team Providers Care Airport Planner Name Role Phone Julian Spencer MD Unavailable [phone] Mariposa [place]wood MD Unavailable [phone] Julian Spencer MD Unavailable [phone] Eugenio Finney MD Unavailable +[phone] Josh Carrero Primary Care Provider + [phone] Urbano Pirce MD Unavailable +[phone] Joe Leo MD Unavailable [phone] Joe Leo MD Unavailable +[phone] Douglas Gonzalez MD Unavailable + [phone] Douglas Gonzalez MD Unavailable +[phone] Julian Spencer MD Unavailable [phone] Azar Cruz MD Unavailable +[phone] Geln Roth MD Unavailable [phone] Encounter Details Date Type Department Care Team (Late st Contact Info) Description 09/12/2020 MyC Medical Advice [facility] [address] [place] [address] 9th [place] [address] Mariposa [place]wood MD 2450 [place] [address] Social History Tobacco Use Types Packs/Day Years Used Date Smoking Tobacco: Never Smokeless Tobacco: Never Alcohol Use Standard Drinks/Week Comments Not Currently 0 (1 standard drink = 0.6 oz pur e alcohol) PHQ-2 Answer Date Recorded PHQ-2 Score 0 09/01/2020 Comments No Sex and Gender Information Value Date Recorded Sex Assigned at Female 12/02/2020 1:42 PM CDT Legal Sex Female 4:19 AM HARDBOARD PANEL PRINTER Gender Identity Female 12/02/2020 1:42 PM CDT Sexual Orientation Straight 12/02/2020 1: 42 PM CDT COVID-19 Exposure Response Date Recorded In the last month, have you been in contact with someone who was confirmed or suspected to have Coronavirus / COVID-19? No / Unsure 09/01/2020 7:58 AM HARDBOARD PANEL PRINTER documented as of this encounter Plan of Treatment Upcoming Encounters Date Type Department Care Team ([facility] st Contact Info) Description 07/05/2025 3:00 PM HARDBOARD PANEL PRINTER Office Visit [facility] [address] [facility] [address] [place] [address] Azar Cruz MD 420 [facility] 484, [address] [place] [address] Mynor Hargrove MD 420 [facility] 480 [place], [place] [address] 03/03/2026 3:20 PM CDT Office Visit [facility] [place] 909 [facility] SE 4th [place] [address] Glen Roth MD [address] [facility] [address] [place], [place] 854564 documented as of this encounter Visit Diagnoses Not on filedocumented in this encounter Care Teams Airport Planner Relationship Specialty Start Date End Date Josh Carrero [address] [phone] PCP - General Family Medicine 08/09/20 Julian Spencer MD Orthopedics 03/08/20 Mariposa Atwood MD [address] [place] [address] Assigned PCP 04/29/20 11/12/20 Julian Spencer MD Assigned Musculoskeletal Provider 05/27/20 02/22/23 Eugenio Finney MD [address] [place] [address] 833035 Assigned Pediatric Specialist Provider 06/19/20 06/03/21 Urbano Price MD [address] [place] [address] 267724 Assigned PCP 11/13/20 08/28/23 Joe Leo MD 420 [facility] 297 [place], [place] 806445 Physical Medicine and Rehabilitation 04/11/21 Joe Leo MD 420 [facility] 297 [place], [place] 023425 Assigned Neuroscience Provider 04/30/21 11/16/22 Douglas Gonzalez MD [address] [place] [address] Pediatrics 05/29/21 Douglas Gonzalez MD 2450 [place] [address] [address] [address] Assigned Pediatric Specialist Provider 06/04/21 11/30/22 Julian Spencer MD [address] [place] [address] Assigned Musculoskeletal Provider 05/11/23 03/26/25 Azar Cruz MD 420 [facility] 484, [address] [place] [address] Assigned Pediatric Specialist Provider 10/18/23 Glen Roth MD [address] [place], [place] [address] [place] [address] Assigned Musculoskeletal Provider 03/27/25 documented as of this encounter
--- OUTSIDE RECORDS SUMMARY | 2025-05-13 16:42 | XMS_ITS | Encounter Summary ---
Author Organization [facility] Address [address] [place] [address] Care Team Providers Care Professor Of Criminal Justice Name Role Phone Julian Spencer MD Unavailable [phone] Julian Spencer MD Unavailable [phone] Josh Carrero Primary Care Provider + [phone] Urbano Price MD Unavailable [phone] Joe Leo MD Unavailable [phone] Joe Leo MD Unavailable [phone] Douglas Gonzalez MD Unavailable + [phone] Douglas Gonzalez MD Unavailable [phone] Julian Spencer MD Unavailable [phone] Azar Cruz MD Unavailable [phone] Glen Roth MD Unavailable [phone] Encounter Details Date Type Department Care Team (Late st Contact Info) Description 12/13/2021 [facility] Medical Advice [facility] [address] [place] [address] Julian Spencer MD [address] [place] [address] Social History Tobacco Use Types Packs/Day Years Used Date Smoking Tobacco: Never Smokeless Tobacco: Never Alcohol Use Standard Drinks/Week Comments Not Currently 0 (1 standard drink = 0.6 oz pur e alcohol) PHQ-2 Answer Date Recorded PHQ-2 Score 0 09/01/2020 Comments No Sex and Gender Information Value Date Recorded Sex Assigned at Female 12/02/2020 1:42 PM CDT Legal Sex Female 4:19 AM ORACLE HRMS DEVELOPER Gender Identity Female 12/02/2020 1:42 PM CDT Sexual Orientation Straight 12/02/2020 1: 42 PM CDT COVID-19 Exposure Response Date Recorded In the last 10 days, have yo u been in contact with someone who was confirmed or suspected to have Coronavirus/COVID-19? No / Unsure 12/11/2021 10:00 AM CDT documented as of this encounter Plan of Treatment Upcoming Encounters Date Type Department Care Team ([facility] st Contact Info) Description 07/05/2025 3:00 PM ORACLE HRMS DEVELOPER Office Visit [facility] [facility] [address] [place] [phone] Azar Cruz MD [address] [facility] [address] [place], [place] [address] Mynor Hargrove MD [address] [facility] [address] [place], [place] [address] 03/03/2026 3:20 PM CDT Office Visit [facility] [place] [address] [facility] [address] [place] [address] Glen Roth MD [address] [facility] [address] [place], [place] [address] documented as of this encounter Visit Diagnoses Not on filedocumented in this encounter Care Teams Professor Of Criminal Justice Relationship Specialty Start Date End Date Josh Carrero [address] [address] PCP - General Family Medicine 08/09/20 Julian Spencer MD Orthopedics 03/08/20 Julian Spencer MD Assigned Musculoskeletal Provider 05/27/20 02/22/23 Urbano Price MD [address] [place] [address] Assigned PCP 11/13/20 08/28/23 Joe Leo MD [address] [place] [address] [id number] Physical Medicine and Rehabilitation 04/11/21 Joe Leo MD [address] [place] [address] 936295 Assigned Neuroscience Provider 04/30/21 11/16/22 Douglas Gonzalez MD [address] [place] [address] [id number] Pediatrics 05/29/21 Douglas Gonzalez MD [address] [place] [address] [phone] Assigned Pediatric Specialist Provider 06/04/21 11/30/22 Julian Spencer MD [address] [place] [address] Assigned Musculoskeletal Provider 05/11/23 03/26/25 Azar Cruz MD [address] [place] [address] [address], [address] [place] [address] Assigned Pediatric Specialist Provider 10/18/23 Glen Roth MD [facility] [place] [address] Assigned Musculoskeletal Provider 03/27/25 documented as of this encounter
--- OUTSIDE RECORDS SUMMARY | 2025-05-13 16:42 | XMS_ITS | Encounter Summary ---
Author Organization [facility] Address [address] [place] [address] Care Team Providers Care Client Development Manager Name Role Phone Julian Spencer MD Unavailable [phone] Josh Carrero Primary Care Provider + [phone] Joe Leo MD Unavailable [phone] Douglas Gonzalez MD Unavailable + [phone] Julian Spencer MD Unavailable [phone] Azar Cruz MD Unavailable [phone] Glen Roth MD Unavailable [phone] Encounter Details Date Type Department Care Team (Late st Contact Info) Description 02/28/2024 [facility] Medical Advice [facility] [address] [place] [address] Julian Spencer MD [address] [place] [address] Social History Tobacco Use Types Packs/Day [...] PM CDT Legal Sex Female 4:19 AM KEY PERSON Gender Identity Female 12/02/2020 1:42 PM CDT Sexual Orientation Straight 12/02/2020 1: 42 PM CDT documented as of this encounter Plan of Treatment Upcoming Encounters Date Type Department Care Team (Late st Contact Info) Description 07/05/2025 3:00 PM KEY PERSON Office Visit [facility] [address] [facility] [address] [place] [phone] Azar Cruz MD [address] [facility] [address], [address] [place], [place] [address] Mynor Hargrove MD [address] [facility] [address] [place], [place] [address] 03/03/2026 3:20 PM CDT Office Visit [facility] [place] [address] [facility] [address] 4[address] [place] [phone] Glen Roth MD [address] [facility] [address] [place], [place] [phone] documented as of this encounter Visit Diagnoses Not on filedocumented in this encounter Care Teams Client Development Manager Relationship Specialty Start Date End Date Josh Carrero [address] [address] PCP - General Family Medicine 08/09/20 Julian Spencer MD Orthopedics 03/08/20 Joe Leo MD [address] [facility] [address] [place], [place] [phone] Physical Medicine and Rehabilitation 04/11/21 Douglas Gonzalez MD [address] [facility] [address] [place], [place] [address] Pediatrics 05/29/21 Julian Spencer MD [address]09 [place], [place] [address] Assigned Musculoskeletal Provider 05/11/23 03/26/25 Azar Cruz MD [address] [facility] [address], [address] [place] [address] Assigned Pediatric Specialist Provider 10/18/23 Glen Roth MD [address] [facility] [address] [place] [address] Assigned Musculoskeletal Provider 03/27/25 documented as of this encounter
--- OUTSIDE RECORDS SUMMARY | 2025-05-13 16:42 | XMS_ITS | Clinical Summary ---
Author Organization [facility] Address [address] [place] [id number] Care Team Providers Care Kennel Assistant Name Role Phone Julian Spencer MD Unavailable [phone] Josh Carrero Primary Care Provider [phone] Joe Leo MD Unavailable [phone] Douglas Gonzalez MD Unavailable [phone] Azar Cruz MD Unavailable [phone] Glen Roth MD Unavailable [phone] Allergies Active Allergy Reactions Criticality Noted Date Comments Dust Mites Itching 08/13/2019 Other reaction(s): Itching,Watering Eyes Gluten Meal 04/20/2021 Other reaction(s): GI Reaction Hydromorphone Other (See Comments) 05/11/2019 All forms (enteral and IV) cause confusion, delirium, aggression. Avoid. Medications Norethindrone Acet-Ethinyl Est (LOESTRIN , PO) Take by mouth daily Active cholecalciferol (VITAMIN D3) 125 mcg (5000 units) capsule Take by mouth daily Active acetaminophen (TYLENOL) 500 MG tabletIndications: Acute post-operative pain Take 1000 mg every six hours for 2 days after discharge, then as needed (every six hours) after that. 021 Active Lidocaine (LIDOCARE) 4 % PatchIndications:A cute post-operative pain,Chronic musculoskeletal pain Place 1-2 patches on skin over painful area. Leave on for 12 hours, then keep off for 12 hours. Repeat daily. 30 patch 3 Active naloxone (NARCAN) 4 MG/0.1ML nasal sprayIndications:A cute post-operative pain [place] 1 spray (4 mg) into one nostril alternating nostrils as needed for opioid reversal every 2-3 minutes until assistance arrives 0.2 mL Active fluticasone (FLONASE) 50 MCG/ACT nasal spray INHALE ONE TO TWO SPRAYS INTO BOTH NOSTRILS ONCE DAILY Active hydrOXYzine (ATARAX) 10 MG tablet TAKE ONE TABLET BY MOUTH EVERY 8 HOURS NEEDED FOR ANXIETY Active hydrOXYzine (ATARAX) 25 MG tablet TAKE ONE TABLET BY MOUTH EVERY DAY NEEDED Active hydrOXYzine (ATARAX) 50 MG tablet TAKE ONE TABLET BY MOUTH EVERY DAY NEEDED Active ondansetron (ZOFRAN-ODT) 8 MG ODT tab DISSOLVE ONE TABLET BY MOUTH THREE TIMES A DAY NEEDED Active diazepam (VALIUM) 2 MG tabletIndications: Back muscle spasm Take 0.5 tablets (1 mg) by mouth every 6 hours as needed for anxiety 30 tablet 022 Active HYDROcodone-acetam inophen (NORCO) 5-325 MG tabletIndications: Chronic pain syndrome,Chronic musculoskeletal pain Take 1 tablet by mouth every 6 hours as needed for severe pain 30 tablet 022 Active tranexamic acid (LYSTEDA) 650 MG tabletIndications: At risk for hemorrhage associated with surgery Take 2 tablets (1,300 mg) by mouth 3 times daily as needed (for prolonged bleeding) May use for up to 3-5 days. 40 tablet 3 024 Active valACYclovir (VALTREX) 1000 mg tablet Take 1 tablet (1,000 mg) by mouth 3 times daily for 7 days 21 tablet 021 2020 Discontinued Active Problems Problem Noted Date Diagnosed Date Thoracic spine pain 05/17/2023 Localized osteoporosis witho ut current pathological fracture 08/22/2021 Pseudarthrosis following spinal fusion History of inhaled steroid therapy 10/13/2020 Pancreatic insufficiency 10/13/2020 Excessive menstruation at puberty 10/13/2020 POTS (postural orthostatic tachycardia syndrome) 10/13/2020 Neuropathic pain 08/31/2020 S/P spinal fusion 08/31/2020 Inflammation of operative incision 08/31/2020 Platelet disorder 08/16/2020 Chronic musculoskeletal pain 08/10/2020 Chronic pain syndrome 08/10/2020 Scoliosis 07/21/2020 Overview (07/21/2020): Added automatically from request for surgery [id number] Painful orthopaedic hardware 07/21/2020 Overview (07/21/2020): Added automatically from request for surgery [id number] Neuromuscular scoliosis of thoracolumbar region 05/05/2020 Other secondary scoliosis, thoracolumbar region 05/05/2020 Tethered cord 05/05/2020 Resolved Problems Problem Noted Date Diagnosed Date Resolved Date Chronic right-sided low back pain without sciatica 12/06/2020 02/06/2021 Aftercare following surgery of the musculoskeletal system 12/06/2020 02/06/2021 Acute post-operative pain 08/10/2020 Encounters Date Type Department Care Team Description 04/29/2025 MyC Medical Advice [facility] [address] [place] [phone] Tawny Alexandra 04/29/2025 MyC Medical Advice [facility] 9th [place] [address] Azar Cruz MD 04/08/2025 MyC Medical Advice [facility] [address] [facility] [address] [place] [phone] Tawny Alexandra 03/19/2025 MyC Medical Advice [facility] [address] [facility] [address] [place] [phone] Tawny Alexandra 03/17/2025 MyC Medical Advice [facility] [address] [facility] 9th [place] [phone] Azar Cruz MD 03/04/2025 3:20 PM CDT Office Visit [facility] [address] [place] [address] Julian Spencer MD Sembrano, Jonathan Nubla, MD Class 1 obesity with body mass index (BMI) of 30.0 to 30.9 in adult, unspecified obesity type, unspecified whether serious comorbidity present (Primary Dx) 03/04/2025 3:00 PM CDT Ancillary Procedure [facility] Orthopedic Xray [address] [place] [phone] Glen Roth MD History of fusion of spine for scoliosis; Leg length discrepancy; Sacroiliitis 03/04/2025 2:30 PM CDT Ancillary Procedure [facility] Xray [address] [place] [phone] Glen Roth MD History of fusion of spine for scoliosis; Leg length discrepancy; Sacroiliitis 03/04/2025 Travel 02/18/2025 Orders Only [facility] [address] [phone] Glen Roth MD History of fusion of spine for scoliosis (Primary Dx); Leg length discrepancy; Sacroiliitis from Last 3 Months Social History Tobacco Use Types Packs/Day Years Used Date Smoking Tobacco: Never Smokeless Tobacco: Never Tobacco Cessation:Counseling Given: Not Answered Alcohol Use Standard Drinks/Week Comments Not Currently 0 (1 standard drink = 0.6 oz pur e alcohol) PHQ-2 Answer Date Recorded PHQ-2 Score 0 08/27/2024 Adolescent Education Answer Date Record ed Getting School Help Needed Not on file 04/29 Comments No Sex and Gender Information Value Date Recorded Sex Assigned at Female 12/02/2020 1:42 PM CDT Legal Sex Female 4:19 AM REHABILITATION PROGRAM MANAGER Gender Identity Female 12/02/2020 1:42 PM CDT Sexual Orientation Straight 12/02/2020 1: 42 PM CDT Last Filed Vital Signs Vital Sign Reading Time Taken Comments Blood Pressure 119/74 03/18/2024 1:37 PM CDT Pulse 83 03/18/2024 1:37 PM CDT Temperature 37.2 C (98.9 F) 03/18/2024 1:37 PM CDT Respiratory Rate 18 03/18/2024 1:37 PM CDT Oxygen Saturation 99% 03/18/2024 1:37 PM CDT Inhaled Oxygen Concentration - - Weight 81.6 kg (180 lb) 08/27/2024 7:26 AM REHABILITATION PROGRAM MANAGER Height 164 cm (5' 4.57) 08/27/2024 7:26 AM REHABILITATION PROGRAM MANAGER Body Mass Index 30.36 08/27/2024 7:26 AM REHABILITATION PROGRAM MANAGER Plan of Treatment Upcoming Encounters Date Type Department Care Team (Late st Contact Info) Description 07/05/2025 3:00 PM REHABILITATION PROGRAM MANAGER Office Visit [facility] [address] [facility] [address] [place] [phone] Azar Cruz MD [address] [facility] [address] [place], [place] [phone] Mynor Hargrove MD [address] [facility] [address] [place], [place] [address] 03/03/2026 3:20 PM CDT Office Visit [facility] [place] [address] [facility] [address] 4th [place] [phone] Glen Roth MD [address] [facility] [address] [place], [place] [phone] Health Maintenance Due Date Last Done Comments ADVANCE CARE PLANNING 2001 ANNUAL REVIEW OF HM ORDERS 2001 CHLAMYDIA SCREENING 2001 YEARLY PREVENTIVE VISIT 2004 HIV SCREENING 2016 MENINGITIS B VACCINE (1 of 2 - Standard) 2017 HEPATITIS C SCREENING 2019 PAP 2022 COVID-19 VACCINE ( season) 2025 INFLUENZA VACCINE (#1) 2025 , 06/23/2018, 07/16/2016, Additional history exists DTAP/TDAP/TD VACCINE (8 - Td or Tdap) 10/02/2033 10/02/2023, 03/31/2012, 11/22/2006, Additional history exists ZOSTER VACCINE (1 of 2) 2051 PNEUMOCOCCAL VACCINE: PEDIATRICS (0 to 5 YEARS) AND AT-RISK PATIENTS (6 to 49 YEARS) Aged Out 2001, 2001 No longer eligibl e based on patient's age to complete this topic HEPATITIS B VACCINE Completed 01/26/2003, 07/25/2002, 04/24/2002, Additional history exists MENINGITIS VACCINE Aged Out 03/24/2013 No longer eligible based on patient's age to complete this topic HPV VACCINE Completed 11/24/2015, 03/06, 03/24/2013 PHQ-2 (once per calendar year) Completed 08/27/2024, 09/25/2023, 05/02/2023, Additional history exists Medical Devices Implanted Type Area Reed Press Feeder Device Identifier Shelf Expiration Date Model / Serial / Lot Graft Bone Crush Canc 30ml [id number] Implanted:Qty: 1 on 08/09/2020 by Julian Spencer MD at [facility] Bone/Tissue /Biologic N/A: Back MUSCULOSKELETAL RAMIREZ 05/12/[id number] / [id number] / Graft Bone Crush Canc 30ml [id number] Implanted:Qty: 1 on 08/09/2020 by Julian Spencer MD at [facility] Bone/Tissue /Biologic N/A: Back MUSCULOSKELETAL RAMIREZ 05/12/[id number] / [id number] / Imp Scr Medt 5.5/6.0mm Solera 5.5x45mm Fa Ti [id number] Implanted:Qty: 3 on 08/09/2020 by Julian Spencer MD at [facility] Metallic Hardware/An chor N/A: Back [employer] [id number] / / [id number] Imp Scr Medt 5.5/6.0mm Solera 5.5x50mm Fa Ti [id number] Implanted:Qty: 1 on 08/09/2020 by Julian Spencer MD at [facility] Metallic Hardware/An chor N/A: Back [employer] [id number] / / [id number] Imp Scr Medt 5.5/6.0mm Solera 5.5x40mm Fa Ti [id number] Implanted:Qty: 3 on 08/09/2020 by Julian Spencer MD at [facility] Metallic Hardware/An chor N/A: Back [employer] [id number] / / [id number] Imp Scr Medt 5.5/6.0mm Solera 5.5x35mm Fa Ti [id number] Implanted:Qty: 1 on 08/09/2020 by Julian Spencer MD at [facility] Metallic Hardware/An chor N/A: Back [employer] [id number] / / [id number] Imp Scr Medt 5.5/6.0mm Solera 4.5x40mm Fa Ti [id number] Implanted:Qty: 2 on 08/09/2020 by Julian Spencer MD at [facility] Metallic Hardware/An chor N/A: Back [employer] [id number] / / [id number] Imp Scr Medt 5.5/6.0mm Solera 4.5x35mm Fa Ti [id number] Implanted:Qty: 1 on 08/09/2020 by Julian Spencer MD at [facility] Metallic Hardware/An chor N/A: Back [employer] [id number] / / [id number] Imp Sincere Medt Solera Tial Str Lined 5.9z011br [id number] Implanted:Qty: 2 on 08/09/2020 by Julian Spencer MD at [facility] Metallic Hardware/An chor N/A: Back [employer] [id number] / / [id number] Imp Scr Set Medt Solera Break Off 5.5mm Ti [id number] Implanted:Qty: 15 on 08/09/2020 by Julian Spencer MD at [facility] Metallic Hardware/An chor N/A: Back [employer] [id number] / / [id number] Imp Scr Medt 5.5/6.0mm Solera 6.5x45mm Fa Ti [id number] Implanted:Qty: 2 on 08/09/2020 by Julian Spencer MD at [facility] Metallic Hardware/An chor N/A: Back [employer] [id number] / / [id number] Imp Scr Medt 5.5/6.0mm Solera 6.5x50mm Fa Ti [id number] Implanted:Qty: 1 on 08/09/2020 by Julian Spencer MD at [facility] Metallic Hardware/An chor N/A: Back [employer] [id number] / / [id number] Medtronic Nb Hook Implanted:Qty: 1 on 08/09/2020 by Julian Spencer MD at [facility] N/A: Back [employer] [id number] / / [id number] Graft Bone Infuse Bmp Lg Ii [id number] Implanted:Qty: 1 on 08/09/2020 by Julian Spencer MD at [facility] N/A: Back [employer]-DANEK 02/02/2021 [id number] / / [id number] Graft Bone Infuse Bmp Med [id number] Implanted:Qty: 1 on 08/09/2020 by Julian Spencer MD at [facility] N/A: Back [employer] 05/04/2022 [id number] / / [id number] Explanted Type Area Reed Press Feeder Device Identifier Shelf Expiration Date Model / Serial / Lot Explanted Spinal Hardware Explanted:Qty: 1 on 08/09/2020 by Julian Spencer MD at [facility] N/A: Back Procedures Procedure Name Priority Date/Time Associated Diagnosis Comments XR PELVIS 1/2 VIEWS Routine 03/04/2025 2 :36 PM CDT History of fusion of spine for scoliosis Leg length discrepancy Sacroiliitis XR EOS TOTAL BODY Routine 03/04/2025 2:3 2 PM CDT History of fusion of spine for scoliosis Leg length discrepancy Sacroiliitis from Last 3 Months Results * XR Pelvis 1/2 Views (03/04/2025 2:36 PM CDT) Anatomical Region Laterality Modality Abdomen/Pelvis Computed Radiogr aphy Impressions 03/04/2025 4:05 PM CDT Impression: 1. No acute osseous abnormality. 2. Lumbosacral transitional anatomy, left-sided Castellvi type 2a vs 3a, with partial bony bridging of the medial aspect. DEVENDRA AYALA MD (Joe) Narrative 03/04/2025 4:05 PM CDT 1 view pelvis radiograph(s) 03/04/2025 4:05 PM History: History of fusion of spine for scoliosis; History of fusion of spine for scoliosis; Leg length discrepancy; Sacroiliitis Additional History from EMR: Chronic back pain Comparison: Pelvic x-ray 08/24/2021, 07/21/2020 Findings: Outlet view of the pelvis was obtained. No acute osseous abnormality. Partially visualized spinal fusion instrumentation. Lumbosacral transitional anatomy, left-sided Castellvi type 2a vs 3a, with partial bony bridging of the medial aspect. No SI joint erosion or ankylosis. Mild degenerative changes of the hips. Sacrum and innominate bones are partially obscured by overlying bowel gas/fecal content. Procedure Note Devendra Ayala DO - 03/04/2025 1 view pelvis radiograph(s) 03/04/2025 4:05 PM History: History of fusion of spine for scoliosis; History of fusion of spine for scoliosis; Leg length discrepancy; Sacroiliitis Additional History from EMR: Chronic back pain Comparison: Pelvic x-ray 08/24/2021, 07/21/2020 Findings: Outlet view of the pelvis was obtained. No acute osseous abnormality. Partially visualized spinal fusion instrumentation. Lumbosacral transitional anatomy, left-sided Castellvi type 2a vs 3a, with partial bony bridging of the medial aspect. No SI joint erosion or ankylosis. Mild degenerative changes of the hips. Sacrum and innominate bones are partially obscured by overlying bowel gas/fecal content. Impression: 1. No acute osseous abnormality. 2. Lumbosacral transitional anatomy, left-sided Castellvi type 2a vs 3a, with partial bony bridging of the medial aspect. DEVENDRA AYALA MD (Joe) us Glen Roth MD IMG DIAGNOSTIC IMAGIN G ORDERABLES Final Result * XR EOS Total Body (03/04/2025 2:32 PM CDT) Anatomical Region Laterality Modality Spine, Lower Extremity Computed Radiography Impressions 03/04/2025 2:58 PM CDT Impression: 1. Mild convexed left curvature of the thoracic spine and moderate convexed right curvature of the thoracolumbar spine, similar compared to prior. 2. Positive global coronal imbalance. No global sagittal and bones. 3. Weight bearing axis as detailed above. 4. Stable postsurgical changes of T4-L4 posterior instrumented fusion without evidence of hardware complication. KRISTINE VILLEGAS MD Narrative 03/04/2025 2:58 PM CDT Exam: Full body radiographs using EOS History: History of fusion of spine for scoliosis; History of fusion of spine for scoliosis; Leg length discrepancy; Sacroiliitis Techniques: AP and lateral images of full body and secondary images of AP and lateral views of spine were submitted for interpretation. Comparison: Radiograph 08/27/2024, 03/18/2024. Findings: 12 rib bearing vertebral bodies and 5 lumbar type vertebral bodies are identified. Coronal Deformity: There is a mild convexed left curvature of thoracic spine with apex at T5. Moderate convexed right curvature of the thoracolumbar/lumbar spine with apex at L2. Positive global coronal imbalance. Sagittal Vertical [place] (A vertical line drawn from the center of C7 (carl line) to the posterosuperior aspect of the S1 on sagittal plane): less than 4 cm Weight bearing axis: (Defined as a line drawn from the center of the femoral head to the mid aspect of the tibial plafond). Right: Weight bearing axis crosses central 1/3 of medial tibial plateau. Left: Weight bearing axis crosses through the medial tibial spine. Leg length: (Measured from the top of the femoral head to the center of tibial plafond. It is assumed joints are in similar degrees of extension bilaterally. Significant difference is defined when discrepancy is greater than 1.5 cm). No significant leg length discrepancy. Additional Findings: Stable postsurgical change of posterior instrumented fusion of T4-L4. No evidence of hardware complication. Reversal of the cervical lordotic curvature. Multilevel degenerative changes throughout the spine, similar compared to prior. Heart is normal size. No focal airspace opacities. No acute osseous abnormality. There is a nonobstructive bowel gas pattern. Procedure Note Kristine Villegas MD - 03/04/2025 Exam: Full body radiographs using EOS History: History of fusion of spine for scoliosis; History of fusion of spine for scoliosis; Leg length discrepancy; Sacroiliitis Techniques: AP and lateral images of full body and secondary images of AP and lateral views of spine were submitted for interpretation. Comparison: Radiograph 08/27/2024, 03/18/2024. Findings: 12 rib bearing vertebral bodies and 5 lumbar type vertebral bodies are identified. Coronal Deformity: There is a mild convexed left curvature of thoracic spine with apex at T5. Moderate convexed right curvature of the thoracolumbar/lumbar spine with apex at L2. Positive global coronal imbalance. Sagittal Vertical [place] (A vertical line drawn from the center of C7 (carl line) to the posterosuperior aspect of the S1 on sagittal plane): less than 4 cm Weight bearing axis: (Defined as a line drawn from the center of the femoral head to the mid aspect of the tibial plafond). Right: Weight bearing axis crosses central 1/3 of medial tibial plateau. Left: Weight bearing axis crosses through the medial tibial spine. Leg length: (Measured from the top of the femoral head to the center of tibial plafond. It is assumed joints are in similar degrees of extension bilaterally. Significant difference is defined when discrepancy is greater than 1.5 cm). No significant leg length discrepancy. Additional Findings: Stable postsurgical change of posterior instrumented fusion of T4-L4. No evidence of hardware complication. Reversal of the cervical lordotic curvature. Multilevel degenerative changes throughout the spine, similar compared to prior. Heart is normal size. No focal airspace opacities. No acute osseous abnormality. There is a nonobstructive bowel gas pattern. Impression: 1. Mild convexed left curvature of the thoracic spine and moderate convexed right curvature of the thoracolumbar spine, similar compared to prior. 2. Positive global coronal imbalance. No global sagittal and bones. 3. Weight bearing axis as detailed above. 4. Stable postsurgical changes of T4-L4 posterior instrumented fusion without evidence of hardware complication. KRISTINE VILLEGAS MD Glen Roth MD IMG DIAGNOSTIC IMAGIN G ORDERABLES Final Result from Last 3 Months Insurance [employer]ESS [place]ESS [place] Advance Directives For more information, please contact: [phone] * Full Code (Latest Code Status on File) Date Activated Date Inactivated Comments 08/10/2020 6:24 AM 08/16/2020 3:52 PM All basic and advanced life-sustaining interventions are performed as appropriate Question Answer Comments Code status determined by: Discussion with patie nt/ legal decision maker Care Teams Kennel Assistant Relationship Specialty Start Date End Date Josh Carrero [address] [address] PCP - General Family Medicine 08/09/20 Julian Spencer MD Orthopedics 03/08/20 Joe Leo MD [address] [facility] [address] [place], [place] [id number] Physical Medicine and Rehabilitation 04/11/21 Douglas Gonzalez MD [address] [place], [place] [id number] [place], [place] [id number] Pediatrics 05/29/21 Azar Cruz MD [address] [facility] [address] [place] [address] Assigned Pediatric Specialist Provider 10/18/23 Glen Roth MD [address] [place] [address] Assigned Musculoskeletal Provider 03/27/25
--- OUTSIDE RECORDS SUMMARY | 2025-05-13 16:42 | XMS_ITS | Encounter Summary ---
Author Organization [facility] Address [address] [place] [address] Care Team Providers Care Aquatic Ecologist Name Role Phone Julian Spencer MD Unavailable +[phone] Mariposa Atwood MD Unavailable +[phone] Julian Spencer MD Unavailable +[phone] Eugenio Finney MD Unavailable + [phone] Josh Carrero Primary Care Provider + [phone] Urbano Price MD Unavailable +[phone] Joe Leo MD Unavailable +[phone] Joe Leo MD Unavailable +[phone] Douglas Gonzalez MD Unavailable + [phone] Douglas Gonzalez MD Unavailable +[phone] Julian Spencer MD Unavailable +[phone] Azar Cruz MD Unavailable +- [phone] Glen Roth MD Unavailable +[phone] Encounter Details Date Type Department Care Team (Late st Contact Info) Description 10/18/2020 MyC Medical Advice [facility] [address] [place] [address] 9th [place] [address] Monica Escalera, RN Social History Tobacco Use Types Packs/Day [...] CDT Legal Sex Female 4:19 AM SENIOR COMPENSATION ANALYST Gender Identity Female 12/02/2020 1:42 PM CDT Sexual Orientation Straight 12/02/2020 1: 42 PM CDT COVID-19 Exposure Response Date Recorded In the last month, have you been in contact with someone who was confirmed or suspected to have Coronavirus / COVID-19? No / Unsure 10/13/2020 1:38 PM SENIOR COMPENSATION ANALYST documented as of this encounter Plan of Treatment Upcoming Encounters Date Type Department Care Team ([facility] st Contact Info) Description 07/05/2025 3:00 PM SENIOR COMPENSATION ANALYST Office Visit [facility] [facility] [address] [place] [phone] Azar Cruz MD 420 [facility] 484, [address] [place], [place] [phone] Mynor Hargrove MD 420 [facility] 480 [place], [place] [address]25 03/03/2026 3:20 PM CDT Office Visit [facility] [place] [address] [facility] [address] 4th [place] [address] Glen Roth MD [address] [facility] [address] [place], [place] [address] documented as of this encounter Visit Diagnoses Not on filedocumented in this encounter Care Teams Aquatic Ecologist Relationship Specialty Start Date End Date Josh Carrero [address] [address] PCP - General Family Medicine 08/09/20 Julian Spencer MD Orthopedics 03/08/20 Mariposa Atwood MD [address] [place] [address] Assigned PCP 04/29/20 11/12/20 Julian Spencer MD Assigned Musculoskeletal Provider 05/27/20 02/22/23 Eugenio Finney MD 420 [facility] 96 [place], [place] 731225 Assigned Pediatric Specialist Provider 06/19/20 06/03/21 Urbano Price MD [address] [place] [address] 664574 Assigned PCP 11/13/20 08/28/23 Joe Leo MD [address] [place] [address] 297 [place], [place] 158105 Physical Medicine and Rehabilitation 04/11/21 Joe Leo MD 420 [facility] 297 [place], [place] 384695 Assigned Neuroscience Provider 04/30/21 11/16/22 Douglas Gonzalez MD [address] [place], [place] [address] [place] [address] Pediatrics 05/29/21 Douglas Gonzalez MD 2450 [facility] [address] [place] [address] Assigned Pediatric Specialist Provider 06/04/21 11/30/22 Julian Spencer MD 909 [place], [place] 591775 Assigned Musculoskeletal Provider 05/11/23 03/26/25 Azar Cruz MD 420 [facility] 484, [address] [place], [place] 616[address] Assigned Pediatric Specialist Provider 10/18/23 Glen Roth MD [address] [facility] [address] [place], [place] 4286[address] Assigned Musculoskeletal Provider 03/27/25 documented as of this encounter
--- OUTSIDE RECORDS SUMMARY | 2025-05-13 16:42 | XMS_ITS | Encounter Summary ---
Author Organization [facility] Address [address] [place] [address]. [place] [address] Care Team Providers Care Aluminum Fabrication Supervisor Name Role Phone Julian Spencer MD Unavailable [phone] Julian Spencer MD Unavailable +[phone] Josh Carrero Primary Care Provider + [phone] Urbano Price MD Unavailable +[phone] Joe Leo MD Unavailable +[phone] Joe Leo MD Unavailable +[phone] Douglas Gonzalez MD Unavailable + [phone] Douglas Gonzalez MD Unavailable +[phone] Julian Spencer MD Unavailable +[phone] Azar Cruz MD Unavailable +[phone] Glen Roth MD Unavailable +[phone] Encounter Details Date Type Department Care Team (Late st Contact Info) Description 07/09/2022 [facility] 9th Floor 2450 [place] [address] Urbano Price MD [address], [place] 3 [place] [address] Social History Tobacco Use Types [...] CDT Legal Sex Female 4:19 AM SENIOR CHEMIST Gender Identity Female 12/02/2020 1:42 PM CDT Sexual Orientation Straight 12/02/2020 1: 42 PM CDT documented as of this encounter Plan of Treatment Upcoming Encounters Date Type Department Care Team ([facility] st Contact Info) Description 07/05/2025 3:00 PM SENIOR CHEMIST Office Visit [facility] [address] [facility] [address] [place] [address] Azar Cruz MD 420 [facility] 484, [address] [place], [place] [address] Mynor Hargrove MD 420 [facility] 480 [place] [address] 03/03/2026 3:20 PM CDT Office Visit [facility] [place] 909 [facility] [address] 4th [place] [phone] Glen Roth MD [address] [facility] [address] [place], [place] 6[address] documented as of this encounter Visit Diagnoses Not on filedocumented in this encounter Care Teams Aluminum Fabrication Supervisor Relationship Specialty Start Date End Date Josh Carrero [address] [address] PCP - General Family Medicine 08/09/20 Julian Spencer MD Orthopedics 03/08/20 Julian Spencer MD Assigned Musculoskeletal Provider 05/27/20 02/22/23 Urbano Price MD [address] [place] [address] 701924 Assigned PCP 11/13/20 08/28/23 Joe Leo MD 420 [facility] 297 [place], [place] 585615 Physical Medicine and Rehabilitation 04/11/21 Joe Leo MD [address] [place] [address] 297 [place], [place] 340205 Assigned Neuroscience Provider 04/30/21 11/16/22 Douglas Gonzalez MD [address] [place] [address] 980734 Pediatrics 05/29/21 Douglas Gonzalez MD [address] [place] [address] 979534 Assigned Pediatric Specialist Provider 06/04/21 11/30/22 Julian Spencer MD 9 [place], [place] [address]185 Assigned Musculoskeletal Provider 05/11/23 03/26/25 Azar Cruz MD 420 [facility] 484, [address] [place], [place] 509445 Assigned Pediatric Specialist Provider 10/18/23 Glen Roth MD [address] [address] Assigned Musculoskeletal Provider 03/27/25 documented as of this encounter
--- OUTSIDE RECORDS SUMMARY | 2025-05-13 16:42 | XMS_ITS | Encounter Summary ---
Author Organization [facility] Address [address] [place] [address] Care Team Providers Care Aircraft Systems Technician Name Role Phone Julian Spencer MD Unavailable +[phone] Mariposa Atwood MD Unavailable [phone] Julian Spencer MD Unavailable +[phone] Eugenio Finney MD Unavailable +[phone] Josh Carrero Primary Care Provider + [phone] Urbano Price MD Unavailable +[phone] Joe Leo MD Unavailable [phone] Joe Leo MD Unavailable +[phone] Douglas Gonzalez MD Unavailable + [phone] Douglas Gonzalez MD Unavailable +[phone] Julian Spencer MD Unavailable +[phone] Azar Cruz MD Unavailable +- [phone] Glen Roth MD Unavailable [phone] Encounter Details Date Type Department Care Team (Late st Contact Info) Description 11/04/2020 MyC Medical Advice [facility] [address] [place] [address] 9th [place] [address] Mariposa Atwood MD 2450 [place] [address] Social History Tobacco Use Types Packs/Day Years Used Date Smoking Tobacco: Never Smokeless Tobacco: Never Alcohol Use Standard Drinks/Week Comments Not Currently 0 (1 standard drink = 0.6 oz pur e alcohol) PHQ-2 Answer Date Recorded PHQ-2 Score 0 09/01/2020 Comments No Sex and Gender Information Value Date Recorded Sex Assigned at Female 12/02/2020 1:42 PM CDT Legal Sex Female 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 No / Unsure 10/23/2020 8:12 PM CDT documented as of this encounter Plan of Treatment Upcoming Encounters Date Type Department Care Team ([facility] st Contact Info) Description 07/05/2025 3:00 PM BELLSTAND ATTENDANT Office Visit [facility] Disorders [address] [facility] [address] [place] [address] Azar Cruz MD 420 [facility] 484, [address] [place], [place] 2[address] Mynor Hargrove MD 420 [facility] 480 [place], [place] [address] 03/03/2026 3:20 PM CDT Office Visit [facility] [place] 909 [facility] SE 4th [place] [address] Glen Roth MD [address] [facility] [address] [place], [place] 663584 documented as of this encounter Visit Diagnoses Not on filedocumented in this encounter Care Teams Aircraft Systems Technician Relationship Specialty Start Date End Date Josh Carrero [address] [phone] PCP - General Family Medicine 08/09/20 Julian Spencer MD Orthopedics 03/08/20 Mariposa Atwood MD [address] [place] [address] Assigned PCP 04/29/20 11/12/20 Julian Spencer MD Assigned Musculoskeletal Provider 05/27/20 02/22/23 Eugenio Finney MD [address] [place] [address] 611145 Assigned Pediatric Specialist Provider 06/19/20 06/03/21 Urbano Price MD [address] [place] [address] 028564 Assigned PCP 11/13/20 08/28/23 Joe Leo MD 420 [facility] 297 [place], [place] 790615 Physical Medicine and Rehabilitation 04/11/21 Joe Leo MD 420 [facility] 297 [place], [place] [address]2005 Assigned Neuroscience Provider 04/30/21 11/16/22 Douglas Gonzalez MD [address] [place] [address] Pediatrics 05/29/21 Douglas Gonzalez MD [address] [address] Assigned Pediatric Specialist Provider 06/04/21 11/30/22 Julian Spencer MD [address] [place] [address] Assigned Musculoskeletal Provider 05/11/23 03/26/25 Azar Cruz MD [address] [place] [address] 484, [address] [place] [address] Assigned Pediatric Specialist Provider 10/18/23 Glen Roth MD [address] [place], [place] [address] [place] [address] Assigned Musculoskeletal Provider 03/27/25 documented as of this encounter
--- OUTSIDE RECORDS SUMMARY | 2025-05-13 16:42 | XMS_ITS | Encounter Summary ---
Author Organization [facility] Address [address] [place] [address]. [place] [address] Care Team Providers Care Environmental Field Office Manager Name Role Phone Julian Spencer MD Unavailable +[phone] Josh Carrero Primary Care Provider + [phone] Joe Leo MD Unavailable [phone] Douglas Gonzalez MD Unavailable + [phone] Julian Spencer MD Unavailable +[phone] Azar Cruz MD Unavailable +[phone] Glen Roth MD Unavailable [phone] Encounter Details Date Type Department Care Team (Late st Contact Info) Description 09/26/2023 [facility] [place] Medical Advice [address] 589[address] Juanita [facility] Social History Tobacco Use Types Packs/Day Years [...] PM CDT Legal Sex Female 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 Gender Identity Female 12/02/2020 1:42 PM CDT Sexual Orientation Straight 12/02/2020 1: 42 PM CDT documented as of this encounter Plan of Treatment Upcoming Encounters Date Type Department Care Team (Late st Contact Info) Description 07/05/2025 3:00 PM GRINDING WHEEL OPERATOR Office Visit [facility] [address] [place] [address] Azar Cruz MD 420 [facility] 484, [address] [place], [place] [address] Mynor Hargrove MD [address] [facility] 480 [place], [place] [address] 03/03/2026 3:20 PM CDT Office Visit [facility] [place] 909 [facility] SE 4th [place] [address] Glen Roth MD [address] [place], [place] 0[address]444 documented as of this encounter Visit Diagnoses Not on filedocumented in this encounter Care Teams Environmental Field Office Manager Relationship Specialty Start Date End Date AliseJosh valenzuela [address] [address] PCP - General Family Medicine 08/09/20 Julian Spencer MD Orthopedics 03/08/20 Joe Leo MD 420 [facility] 297 [place], [place] 170565 Physical Medicine and Rehabilitation 04/11/21 Douglas Gonzalez MD [address] [place] [address] [place] [address] Pediatrics 05/29/21 Julian Spencer MD [address] [place] [address] Assigned Musculoskeletal Provider 05/11/23 03/26/25 Azar Cruz MD [address] [place] [address] 484, [address] [place] [address] Assigned Pediatric Specialist Provider 10/18/23 Glen Roth MD [facility] [address] [address] Assigned Musculoskeletal Provider 03/27/25 documented as of this encounter
--- OUTSIDE RECORDS SUMMARY | 2025-05-13 16:42 | XMS_ITS | Encounter Summary ---
Author Organization [facility] Address [address] [place] [address]. [place] [address] Care Team Providers Care Environmental Adviser Name Role Phone Julian Spencer MD Unavailable [phone] Julian Spencer MD Unavailable +[phone] Josh Carrero Primary Care Provider + [phone] Urbano Price MD Unavailable +[phone] Joe Leo MD Unavailable [phone] Joe Leo MD Unavailable [phone] Douglas Gonzalez MD Unavailable + [phone] Douglas Gonzalez MD Unavailable + [phone] Julian Spencer MD Unavailable [phone] Azar Cruz MD Unavailable +[phone] Glen Roth MD Unavailable [phone] Encounter Details Date Type Department Care Team (Late st Contact Info) Description 08/25/2021 [facility]ty Clinic [facility] 9th Floor 2450 [place] [address] Urbano Price MD [address], [place] 3 [place] [address] Social History Tobacco Use Types [...] PM CDT Legal Sex Female 4:19 AM LOAD DISPATCHER LOCAL Gender Identity Female 12/02/2020 1:42 PM CDT Sexual Orientation Straight 12/02/2020 1: 42 PM CDT COVID-19 Exposure Response Date Recorded In the last month, have you been in contact with someone who was confirmed or suspected to have Coronavirus / COVID-19? No / Unsure 08/24/2021 3:05 PM LOAD DISPATCHER LOCAL documented as of this encounter Plan of Treatment Upcoming Encounters Date Type Department Care Team ([facility] Contact Info) Description 07/05/2025 3:00 PM LOAD DISPATCHER LOCAL [facility] Visit [facility]2 S [facility] [address] [place] [phone] Azar Cruz MD 420 [facility] 484, [address] [place], [place] [address] Mynor Hargrove MD 420 [facility] 480 [place], [place] [address]255 03/03/2026 3:20 PM CDT [facility] Visit [facility] [place] 909 [facility] SE 4th [place] [address] Glen Roth MD [address] [facility] [address] [place], [place] 948434 documented as of this encounter Visit Diagnoses Not on filedocumented in this encounter Care Teams Environmental Adviser Relationship Specialty Start Date End Date Josh Carrero [address] [phone] PCP - General Family Medicine 08/09/20 Julian Spencer MD Orthopedics 03/08/20 Julian Spencer MD Assigned Musculoskeletal Provider 05/27/20 02/22/23 Urbano Price MD [address] [place] [address] 572154 Assigned PCP 11/13/20 08/28/23 Joe Leo MD 420 [facility] 297 [place], [place] 9[address]65 Physical Medicine and Rehabilitation 04/11/21 Joe Leo MD 420 [facility] 297 [place], [place] [address] Assigned Neuroscience Provider 04/30/21 11/16/22 Douglas Gonzalez MD [address] [place] [address] 122764 Pediatrics 05/29/21 Douglas Gonzalez MD [address] [place] [address] Assigned Pediatric Specialist Provider 06/04/21 11/30/22 Julian Spencer MD [address] [place] [address] Assigned Musculoskeletal Provider 05/11/23 03/26/25 Azar Cruz MD [facility] 484, [address] [place], [place] [address] Assigned Pediatric Specialist Provider 10/18/23 Glen Roth MD [address] [place] [address] Assigned Musculoskeletal Provider 03/27/25 documented as of this encounter
--- OUTSIDE RECORDS SUMMARY | 2025-05-13 16:42 | XMS_ITS | Encounter Summary ---
Author Organization [facility] Address [address] [place] [address] Care Team Providers Care Robotics Technician Name Role Phone Julian Spencer MD Unavailable +[phone] Mariposa Atwood MD Unavailable [phone] Julian Spencer MD Unavailable +[phone] Eugenio Finney MD Unavailable +[phone] Josh Carrero Primary Care Provider + [phone] Urbano Price MD Unavailable +[phone] Joe Leo MD Unavailable +[phone] Joe Leo MD Unavailable [phone] Douglas Gonzalez MD Unavailable + [phone] Douglas Gonzalez MD Unavailable +[phone] Julian Spencer MD Unavailable +[phone] Azar Cruz MD Unavailable + [phone] Glen Roth MD Unavailable [phone] Encounter Details Date Type Department Care Team (Late st Contact Info) Description 09/12/2020 [facility] Medical Advice [facility] [address] [place] [address], 3rd Floor [facility] [address] [address] Urbano Price MD [address] [place] [address], [place] [address] Social History Tobacco Use Types Packs/Day Years Used Date Smoking Tobacco: Never Smokeless Tobacco: Never Alcohol Use Standard Drinks/Week Comments Not Currently 0 (1 standard drink = 0.6 oz pur e alcohol) PHQ-2 Answer Date Recorded PHQ-2 Score 0 09/01/2020 Comments No Sex and Gender Information Value Date Recorded Sex Assigned at Female 12/02/2020 1:42 PM CDT Legal Sex Female 4:19 AM CENTER CONSULTANT Gender Identity Female 12/02/2020 1:42 PM CDT Sexual Orientation Straight 12/02/2020 1: 42 PM CDT COVID-19 Exposure Response Date Recorded In the last month, have you been in contact with someone who was confirmed or suspected to have Coronavirus / COVID-19? No / Unsure 09/01/2020 7:58 AM CENTER CONSULTANT documented as of this encounter Plan of Treatment Upcoming Encounters Date Type Department Care Team ([facility] Contact Info) Description 07/05/2025 3:00 PM CENTER CONSULTANT Office [facility] Center for Ble[facility] and Clotting Disorders [facility]2 [address] [facility] [address] [place] [address] Azar Cruz MD [address] [place] [address] 484, [address] [place] [address] Mynor Hargrove MD 420 [facility] 480 [place] [address] 03/03/2026 3:20 PM CDT Office Visit [facility] [place] 909 [facility] SE 4th [place] [address] Glen Roth MD [address] [facility] [address] [place] [address] documented as of this encounter Visit Diagnoses Not on filedocumented in this encounter Care Teams Robotics Technician Relationship Specialty Start Date End Date Josh Carrero [address] [address] PCP - General Family Medicine 08/09/20 Julian Spencer MD Orthopedics 03/08/20 Mariposa Atwood MD [address] [place] [address] Assigned PCP 04/29/20 11/12/20 Julian Spencer MD Assigned Musculoskeletal Provider 05/27/20 02/22/23 Eugenio Finney MD [address] [place] [address] 741045 Assigned Pediatric Specialist Provider 06/19/20 06/03/21 Urbano Price MD [address] [place] [address] 419974 Assigned PCP 11/13/20 08/28/23 Joe Leo MD [address] [place] [address] 297 [place], [place] [address] Physical Medicine and Rehabilitation 04/11/21 Joe Leo MD [address] [place] [address] 559605 Assigned Neuroscience Provider 04/30/21 11/16/22 Douglas Gonzalez MD [address] [place] [address] Pediatrics 05/29/21 Douglas Gonzalez MD 2450 [facility] [address]653 [place] [address] Assigned Pediatric Specialist Provider 06/04/21 11/30/22 Julian Spencer MD 909 [place] [address] Assigned Musculoskeletal Provider 05/11/23 03/26/25 Azar Cruz MD 420 [facility] 484, [address] [place] [address] Assigned Pediatric Specialist Provider 10/18/23 Glen Roth MD [facility] [address] [place] [address] Assigned Musculoskeletal Provider 03/27/25 documented as of this encounter
--- OUTSIDE RECORDS SUMMARY | 2025-05-13 16:42 | XMS_ITS | Encounter Summary ---
Author Organization [place] Address [address] [place] [address]. [place] [address] Care Team Providers Care Senior Merchandiser Name Role Phone Julian Spencer MD Unavailable [phone] Julian Spencer MD Unavailable [phone] Josh Carrero Primary Care Provider + [phone] Urbano Price MD Unavailable +[phone] oJe Leo MD Unavailable [phone] Joe Leo MD Unavailable [phone] Douglas Gonzalez MD Unavailable + [phone] Douglas Gonzalez MD Unavailable + [phone] Julian Spencer MD Unavailable +[phone] Azar Cruz MD Unavailable +[phone] Glen Roth MD Unavailable +[phone] Encounter Details Date Type Department Care Team (Late st Contact Info) Description 12/25/2021 [facility] [address] 3rd [place] [address] Douglas Gonzalez MD Counts include 234 beds at the [facility]0 [facility] [address] [place] [address] Social History Tobacco Use Types [...] PM CDT Legal Sex Female 4:19 AM CONTOUR GRINDER Gender Identity Female 12/02/2020 1:42 PM CDT Sexual Orientation Straight 12/02/2020 1: 42 PM CDT COVID-19 Exposure Response Date Recorded In the last 10 days, have yo u been in contact with someone who was confirmed or suspected to have Coronavirus/COVID-19? No / Unsure 12/11/2021 10:00 AM CDT documented as of this encounter Plan of Treatment Upcoming Encounters Date Type Department Care Team ([facility] st Contact Info) Description 07/05/2025 3:00 PM CONTOUR GRINDER [facility] [address] [facility] [address] [place] [phone] Azar Cruz MD 420 [facility] 484, [address] [place], [place] 70[address] Mynor Hargrove MD 420 [facility] 480 [place], [place] [address] 03/03/2026 3:20 PM CDT [facility] [place] [address] [facility] SE 4th [place] [address] Glen Roth MD [address] [facility] [address] [place] [address] documented as of this encounter Visit Diagnoses Not on filedocumented in this encounter Care Teams Senior Merchandiser Relationship Specialty Start Date End Date Josh Carrero [address] [address] PCP - General Family Medicine 08/09/20 Julian Spencer MD Orthopedics 03/08/20 Julian Spencer MD Assigned Musculoskeletal Provider 05/27/20 02/22/23 Urbano Price MD [address] [place] [address] Assigned PCP 11/13/20 08/28/23 Joe Leo MD [address] [place] [address] Physical Medicine and Rehabilitation 04/11/21 Joe Leo MD [address] [place] [address] 903945 Assigned Neuroscience Provider 04/30/21 11/16/22 Douglas Gonzalez MD [address] [place] [address] 645934 Pediatrics 05/29/21 Douglas Gonzalez MD [address] [place] [address] Assigned Pediatric Specialist Provider 06/04/21 11/30/22 Julian Spencer MD [address] [place] [address] Assigned Musculoskeletal Provider 05/11/23 03/26/25 Azar Cruz MD 420 [facility] 484, RO[address] [place] [address] Assigned Pediatric Specialist Provider 10/18/23 Glen Roth MD [address] [place] [address] Assigned Musculoskeletal Provider 03/27/25 documented as of this encounter
--- OUTSIDE RECORDS SUMMARY | 2025-05-13 16:42 | XMS_ITS | Encounter Summary ---
Author Organization [place] Address [address] [place] [address] Care Team Providers Care Environmental Geologist Name Role Phone Julian Spencer MD Unavailable [phone] Josh Carrero Primary Care Provider + [phone] Joe Leo MD Unavailable [phone] Douglas Gonzalez MD Unavailable + [phone] Azar Cruz MD Unavailable +[phone] Glen Roth MD Unavailable [phone] Encounter Details Date Type Department Care Team (Late st Contact Info) Description 04/29/2025 [facility] Medical Advice [facility] [address] [facility] [address] [place] [address] Tawny Alexandra Social History Tobacco [...] PM CDT Legal Sex Female 4: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 MANAGER 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 HOSPICE Gender Identity Female 12/02/2020 1:42 PM CDT Sexual Orientation Straight 12/02/2020 1: 42 PM CDT documented as of this encounter Plan of Treatment Upcoming Encounters Date Type Department Care Team (Late st Contact Info) Description 07/05/2025 3:00 PM MANAGER BUSINESS DEVELOPMENT HOSPICE Office Visit [facility] [address] [place] [address] Azar Cruz MD 420 [facility] SE [facility] 484, [address] [place], [place] [address] Mynor Hargrove MD [address] [place] [address] [facility] 480 [place], [place] [address]465 03/03/2026 3:20 PM CDT Office Visit [facility] [place] [address] [facility] SE 4th [place] [phone] Glen Roth MD [address] [place], [place] [address] documented as of this encounter Visit Diagnoses Not on filedocumented in this encounter Care Teams Environmental Geologist Relationship Specialty Start Date End Date Josh Carrero [address] [address] PCP - General Family Medicine 08/09/20 Julian Spencer MD Orthopedics 03/08/20 Joe Leo MD 420 [facility] 297 [place], [place] [address] Physical Medicine and Rehabilitation 04/11/21 Douglas Gonzalez MD 2450 [facility] [address]653 [place], [place] 9[address] Pediatrics 05/29/21 Azar Cruz MD [address] [place] [address] 484, [address] [place] [address] Assigned Pediatric Specialist Provider 10/18/23 Glen Roth MD [address] [place] [address] 964294 Assigned Musculoskeletal Provider 03/27/25 documented as of this encounter
--- OUTSIDE RECORDS SUMMARY | 2025-05-13 16:42 | XMS_ITS | Encounter Summary ---
Author Organization [place] Address [address] [place] [address] Care Team Providers Care Supervisor Cell Room Name Role Phone Julian Spencer MD Unavailable [phone] Josh Carrero Primary Care Provider + [phone] Joe Leo MD Unavailable [phone] Douglas Gonzalez MD Unavailable + [phone] Azar Cruz MD Unavailable +[phone] Glen Roth MD Unavailable [phone] Encounter Details Date Type Department Care Team (Late st Contact Info) Description 04/08/2025 [facility] Medical Advice [facility] [address] [facility] [address] [place] [address] Tawny Alexandra Social History Tobacco [...] PM CDT Legal Sex Female 4:19 AM JAVA TECH Gender Identity Female 12/02/2020 1:42 PM CDT Sexual Orientation Straight 12/02/2020 1: 42 PM CDT documented as of this encounter Plan of Treatment Upcoming Encounters Date Type Department Care Team (Late st Contact Info) Description 07/05/2025 3:00 PM JAVA TECH Office Visit [facility] [address] [place] [address] Azar Cruz MD [address] [place] [address] [facility] 484, [address] [place], [place] [address] Mynor Hargrove MD [address] [facility] [address] [facility] 480 [place], [place] [address] 03/03/2026 3:20 PM CDT Office Visit [facility] [place] [address] [facility] SE 4th [place] [phone] Glen Roth MD [address] [place], [place] [address] documented as of this encounter Visit Diagnoses Not on filedocumented in this encounter Care Teams Supervisor Cell Room Relationship Specialty Start Date End Date Josh Carrero [address] [address] PCP - General Family Medicine 08/09/20 Julian Spencer MD Orthopedics 03/08/20 Joe Leo MD 420 [facility] 297 [place], [place] [address] Physical Medicine and Rehabilitation 04/11/21 Douglas Gonzalez MD 2450 [facility] [address] [place], [place] 9[address] Pediatrics 05/29/21 Azar Cruz MD [address] [place] [address] 484, [address] [place] [address] Assigned Pediatric Specialist Provider 10/18/23 Glen Roth MD [address] [place] [address] 998644 Assigned Musculoskeletal Provider 03/27/25 documented as of this encounter
--- OUTSIDE RECORDS SUMMARY | 2025-05-13 16:42 | XMS_ITS | Encounter Summary ---
Author Organization [place] Address [address] [place] [address] Care Team Providers Care Delineator Name Role Phone Julian Spencer MD Unavailable [phone] Josh Carrero Primary Care Provider + [phone] Joe Leo MD Unavailable [phone] Douglas Gonzalez MD Unavailable + [phone] Julian Spencer MD Unavailable [phone] Azar Cruz MD Unavailable [phone] Glen Roth MD Unavailable [phone] Encounter Details Date Type Department Care Team (Late st Contact Info) Description 06/03/2024 [facility] Sleep [address] [address] Kem Flynn Social History Tobacco Use Types Packs/Day Years [...] PM CDT Legal 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 Female 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 Gender Identity Female 12/02/2020 1:42 PM CDT Sexual Orientation Straight 12/02/2020 1: 42 PM CDT documented as of this encounter Plan of Treatment Upcoming Encounters Date Type Department Care Team (Late st Contact Info) Description 07/05/2025 3:00 PM JIGGER CROWN POUNCING MACHINE OPERATOR Office Visit [facility] [address] [place] [address] Azar Cruz MD 420 [facility] 484, [address] [place], [place] [address] Mynor Hargrove MD 420 [place] [address] [facility] 480 [place], [place] [address] 03/03/2026 3:20 PM CDT Office Visit [facility] [place] 909 [facility] SE 4th [place] [phone] Glen Roth MD [address] [place], [place] [address]494 documented as of this encounter Visit Diagnoses Not on filedocumented in this encounter Care Teams Delineator Relationship Specialty Start Date End Date AliseJosh valenzuela [address] [address] PCP - General Family Medicine 08/09/20 Julian Spencer MD Orthopedics 03/08/20 Joe Leo MD 420 [facility] 297 [place], [place] 0[address] Physical Medicine and Rehabilitation 04/11/21 Douglas Gonzalez MD [address] [place] [address] [place] [address] Pediatrics 05/29/21 Julian Spencer MD [address] [place] [address] Assigned Musculoskeletal Provider 05/11/23 03/26/25 Azar Cruz MD [address] [place] [address] 484, [address] [place] [address] Assigned Pediatric Specialist Provider 10/18/23 Glen Roth MD [facility]2 [address] [address] Assigned Musculoskeletal Provider 03/27/25 documented as of this encounter
--- OUTSIDE RECORDS SUMMARY | 2025-05-13 16:42 | XMS_ITS | Encounter Summary ---
Author Organization [place] Address [address] [place] [address]. [place] [address] Care Team Providers Care Block Mason Name Role Phone Julian Spencer MD Unavailable [phone] Julian Spencer MD Unavailable [phone] Josh Carrero Primary Care Provider + [phone] Urbano Price MD Unavailable [phone] Joe Leo MD Unavailable [phone] Joe Leo MD Unavailable [phone] Douglas Gonzalez MD Unavailable + [phone] Douglas Gonzalez MD Unavailable [phone] Julian Spencer MD Unavailable [phone] Azar Cruz MD Unavailable + [phone] Glen Roth MD Unavailable [phone] Encounter Details Date Type Department Care Team (Late st Contact Info) Description 08/28/2021 [facility] 9th Floor 2450 [place] [address] Urbano Price MD 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 No / Unsure 08/24/2021 3:05 PM SERVICE CREW SUPERVISOR documented as of this encounter Plan of Treatment Upcoming Encounters Date Type Department Care Team ([facility] Contact Info) Description 07/05/2025 3:00 PM SERVICE CREW SUPERVISOR Office Visit [facility] [facility] [address] [place] [phone] Azar Cruz MD 420 [facility] 484, [address] [place], [place] [address] Mynor Hargrove MD 420 [facility] 480 [place], [place] [address] 03/03/2026 3:20 PM CDT Office [facility] [place] 909 [facility] SE 4th [place] [address] Glen Roth MD [address] [facility] [address] [place], [place] [address] documented as of this encounter Visit Diagnoses Not on filedocumented in this encounter Care Teams Block Mason Relationship Specialty Start Date End Date Josh Carrero [address] [phone] PCP - General Family Medicine 08/09/20 Julian Spencer MD Orthopedics 03/08/20 Julian Spencer MD Assigned Musculoskeletal Provider 05/27/20 02/22/23 Urbano Price MD [address] [place] [address] 806544 Assigned PCP 11/13/20 08/28/23 Joe Leo MD 420 [facility] 297 [place], [place] [address] Physical Medicine and Rehabilitation 04/11/21 Joe Leo MD 420 [facility] 297 [place], [place] [address] Assigned Neuroscience Provider 04/30/21 11/16/22 Douglas Gonzalez MD [address] [place] [address] 115134 Pediatrics 05/29/21 Douglas Gonzalez MD [address] [place] [address] Assigned Pediatric Specialist Provider 06/04/21 11/30/22 Julian Spencer MD [address] [place] [address] Assigned Musculoskeletal Provider 05/11/23 03/26/25 Azar Cruz MD [facility] 484, RO[address] [place], [place] [address] Assigned Pediatric Specialist Provider 10/18/23 Glen Roth MD [address] [place] [address] Assigned Musculoskeletal Provider 03/27/25 documented as of this encounter
--- OUTSIDE RECORDS SUMMARY | 2025-05-13 16:42 | XMS_ITS | Encounter Summary ---
Author Organization [place] Address [address] [place] [address]. [place] [address] Care Team Providers Care Medical Care Evaluation Specialist Name Role Phone Julian Spencer MD Unavailable [phone] Josh Carrero Primary Care Provider [phone] Joe Leo MD Unavailable [phone] Douglas Gonzalez MD Unavailable [phone] Julian Spencer MD Unavailable [phone] Azar Cruz MD Unavailable +[phone] Glen Roth MD Unavailable [phone] Encounter Details Date Type Department Care Team (Late st Contact Info) Description 02/28/2024 [facility] Medical Advice [facility]0 [facility] 9th [place] [address] Azar Cruz MD 420 [facility] 484, [address] [place] [address] Social History Tobacco Use Types [...] PM CDT Legal Sex Female 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 Gender Identity Female 12/02/2020 1:42 PM CDT Sexual Orientation Straight 12/02/2020 1: 42 PM CDT documented as of this encounter Plan of Treatment Upcoming Encounters Date Type Department Care Team (Late st Contact Info) Description 07/05/2025 3:00 PM FLUX TUBE ATTENDANT Office Visit [facility] [address] [facility] [address] [place] [address] Azar Cruz MD 420 [facility] 484, [address] [place] [address] Mynor Hargrove MD 420 [facility] 480 [place], [place] [address] 03/03/2026 3:20 PM CDT Office Visit [facility] [place] 909 [facility] SE 4th [place] [address] Glen Roth MD [address] [facility] [address] [place], [place] 2[address] documented as of this encounter Visit Diagnoses Not on filedocumented in this encounter Care Teams Medical Care Evaluation Specialist Relationship Specialty Start Date End Date Josh Carrero [address] [phone] PCP - General Family Medicine 08/09/20 Julian Spencer MD Orthopedics 03/08/20 Joe Leo MD 420 [facility] 297 [place] [address] Physical Medicine and Rehabilitation 04/11/21 Douglas Gonzalez MD 2450 [facility] [address] [place] [address] Pediatrics 05/29/21 Julian Spencer MD [address] [place] [address] 599715 Assigned Musculoskeletal Provider 05/11/23 03/26/25 Azar Cruz MD 420 [facility] 484, [address] [place], [place] [address] Assigned Pediatric Specialist Provider 10/18/23 Glen Roth MD [address] [place] [address] [address] [place] [address] Assigned Musculoskeletal Provider 03/27/25 documented as of this encounter
--- OUTSIDE RECORDS SUMMARY | 2025-05-13 16:42 | XMS_ITS | Encounter Summary ---
Author Organization [place] Address [address] [place] [address]. [place] [address] Care Team Providers Care Pile Header Name Role Phone Julian Spencer MD Unavailable [phone] Julian Spencer MD Unavailable [phone] Josh Carrero Primary Care Provider + [phone] Urbano Price MD Unavailable [phone] Joe Leo MD Unavailable [phone] Joe Leo MD Unavailable [phone] Douglas Gonzalez MD Unavailable + [phone] Douglas Gonzalez MD Unavailable [phone] Julian Spencer MD Unavailable [phone] Azar Cruz MD Unavailable +[phone] Glen Roth MD Unavailable [phone] Encounter Details Date Type Department Care Team (Late st Contact Info) Description 08/14/2022 [facility] Medical Advice [facility] [place] [address] [place] [address] Robert Mcclendon, JUDY [address] [place] [address] Social History Tobacco Use Types [...] PM CDT Legal Sex Female 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 Gender Identity Female 12/02/2020 1:42 PM CDT Sexual Orientation Straight 12/02/2020 1: 42 PM CDT documented as of this encounter Plan of Treatment Upcoming Encounters Date Type Department Care Team ([facility] st Contact Info) Description 07/05/2025 3:00 PM DEGREASING WHEEL OPERATOR Office Visit [facility] for [facility] [address] [facility] [address] [place] [phone] Azar Cruz MD 420 [facility] 484, [address] [place], [place] [address] Mynor Hargrove MD 420 [facility] 480 [place], [place] [address] 03/03/2026 3:20 PM CDT Office Visit [facility] [place] 909 [facility] SE 4th [place] [address] Glen Roth MD [address] [facility] [address] [place], [place] [address] documented as of this encounter Visit Diagnoses Not on filedocumented in this encounter Care Teams Pile Header Relationship Specialty Start Date End Date Josh Carrero [address] [address] PCP - General Family Medicine 08/09/20 Julian Spencer MD Orthopedics 03/08/20 Julian Spencer MD Assigned Musculoskeletal Provider 05/27/20 02/22/23 Urbano Price MD 2450 [place] [address] Assigned PCP 11/13/20 08/28/23 Joe Leo MD 420 [facility] 297 [place], [place] [address] Physical Medicine and Rehabilitation 04/11/21 Joe Leo MD 420 [facility] 297 [place], [place] [address] Assigned Neuroscience Provider 04/30/21 11/16/22 Douglas Gonzalze MD [facility] [address] 47[address] Pediatrics 05/29/21 Douglas Gonzalez MD [address] [place] [address]214 Assigned Pediatric Specialist Provider 06/04/21 11/30/22 Julian Spencer MD [address] [place] [address] Assigned Musculoskeletal Provider 05/11/23 03/26/25 Azar Cruz MD 420 [facility] 484, [address] [place], [place] [address] Assigned Pediatric Specialist Provider 10/18/23 Glen Roth MD [address] [facility] [address] [place] [address] Assigned Musculoskeletal Provider 03/27/25 documented as of this encounter
--- OUTSIDE RECORDS SUMMARY | 2025-05-13 16:42 | XMS_ITS | Encounter Summary ---
Author Organization [place] Address [address] [place] [address] Care Team Providers Care Training Systems Officer Name Role Phone Julian Spencer MD Unavailable [phone] Julian Spencer MD Unavailable [phone] Josh Carrero Primary Care Provider + [phone] Urbano Price MD Unavailable +[phone] Joe Leo MD Unavailable [phone] Joe Leo MD Unavailable [phone] Douglas Gonzalez MD Unavailable + [phone] Douglas Gonzalez MD Unavailable + [phone] Julian Spencer MD Unavailable [phone] Azar Cruz MD Unavailable +[phone] Glen Roth MD Unavailable [phone] Encounter Details Date Type Department Care Team (Late st Contact Info) Description 08/18/2021 [facility] [address] [place] [address] Reyna Chávez LPN Social History Tobacco Use Types Packs/Day Years Used Date Smoking Tobacco: Never Smokeless Tobacco: Never Alcohol Use Standard Drinks/Week Comments Not Currently 0 (1 standard drink = 0.6 oz pur e alcohol) PHQ-2 Answer Date Recorded PHQ-2 Score 0 09/01/2020 Comments No Sex and Gender Information Value Date Recorded Sex Assigned at Female 12/02/2020 1:42 PM CDT Legal 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 Gender Identity Female 12/02/2020 1:42 PM CDT Sexual Orientation Straight 12/02/2020 1: 42 PM CDT documented as of this encounter Plan of Treatment Upcoming Encounters Date Type Department Care Team (Late st Contact Info) Description 07/05/2025 3:00 PM SENIOR DESIGN ENGINEER Office Visit [facility] Center for Ble[facility] and Clotting Disorders [address] [facility] [address] [place] [address] Azar Cruz MD 420 [facility] 484, [address] [place], [place] [address] Mynor Hargrove MD 420 [facility] 480 [place], [place] [address] 03/03/2026 3:20 PM CDT Office Visit [facility] [place] 909 [facility] [address] 4th [place] [address] Glen Roth MD [address] [facility] [address] [place] [address] documented as of this encounter Visit Diagnoses Not on filedocumented in this encounter Care Teams Training Systems Officer Relationship Specialty Start Date End Date Josh Carrero [address] [address] PCP - General Family Medicine 08/09/20 Julian Spencer MD Orthopedics 03/08/20 Julian Spencer MD Assigned Musculoskeletal Provider 05/27/20 02/22/23 Urbano Price MD [address] [place] [address] 439744 Assigned PCP 11/13/20 08/28/23 Joe Leo MD [address] [place] [address] 297 [place], [place] [address] Physical Medicine and Rehabilitation 04/11/21 Joe Leo MD [address] [place] [address] [id number] Assigned Neuroscience Provider 04/30/21 11/16/22 Douglas Gonzalez MD [address] [place] [address]60014 Pediatrics 05/29/21 Douglas Gonzalez MD [address] [place] [address] 556484 Assigned Pediatric Specialist Provider 06/04/21 11/30/22 Julian Spencer MD [address] [place] [address]605 Assigned Musculoskeletal Provider 05/11/23 03/26/25 Azar Cruz MD 420 [facility] 484, [address] [place], [place] [address] Assigned Pediatric Specialist Provider 10/18/23 Glen Roth MD [address] [place], [place] [address] [place], [place] [address] Assigned Musculoskeletal Provider 03/27/25 documented as of this encounter
--- OUTSIDE RECORDS SUMMARY | 2025-05-13 16:42 | XMS_ITS | Encounter Summary ---
Author Organization [facility] Address [address] [place] [address] Care Team Providers Care Cork Wirer Name Role Phone Julian Spencer MD Unavailable [phone] Julian Spencer MD Unavailable [phone] Josh Carrero Primary Care Provider + [phone] Urbaon Price MD Unavailable [phone] Joe Leo MD Unavailable [phone] Joe Leo MD Unavailable [phone] Douglas Gonzalez MD Unavailable + [phone] Douglas Gonzalez MD Unavailable [phone] Julian Spencer MD Unavailable [phone] Azar Cruz MD Unavailable + [phone] Glen Roth MD Unavailable [phone] Encounter Details Date Type Department Care Team (Late st Contact Info) Description 12/13/2021 [facility] Medical Advice [facility] [address] [place] [address], [address] [place] [phone] Mari Byers, RN Social History Tobacco Use Types Packs/Day Years Used Date Smoking Tobacco: Never Smokeless Tobacco: Never Alcohol Use Standard Drinks/Week Comments Not Currently 0 (1 standard drink = 0.6 oz pur e alcohol) PHQ-2 Answer Date Recorded PHQ-2 Score 0 09/01/2020 Comments No Sex and Gender Information Value Date Recorded Sex Assigned at Female 12/02/2020 1:42 PM CDT Legal Sex Female 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 CONVERSION MANAGER Gender Identity Female 12/02/2020 1:42 PM [...] Upcoming Encounters Date Type Department Care Team ([facility] st Contact Info) Description 07/05/2025 3:00 PM TEXTILE CONVERSION MANAGER Office Visit [facility] [address] [facility] [address] [place] [phone] Azar Cruz MD [address] [facility] [address] [place], [place] [address] Mynor Hargrove MD [address] [facility] 480 [place], [place] [phone] 03/03/2026 3:20 PM CDT Office Visit [facility] [place] [address] [facility] [address] 4th [place] [phone] Glen Roth MD [address] [facility] [address] [place] [address] documented as of this encounter Visit Diagnoses Not on filedocumented in this encounter Care Teams Cork Wirer Relationship Specialty Start Date End Date Josh Carrero [address] [address] PCP - General Family Medicine 08/09/20 Julian Spencer MD Orthopedics 03/08/20 Julian Spencer MD Assigned Musculoskeletal Provider 05/27/20 02/22/23 Urbano Price MD [facility] [place] [address] Assigned PCP 11/13/20 08/28/23 Joe Leo MD [address] [facility] [address] [place], [place] [address] Physical Medicine and Rehabilitation 04/11/21 Joe Leo MD [address] [facility] [address] [place] [id number] Assigned Neuroscience Provider 04/30/21 11/16/22 Douglas Gonzalez MD [address] [place], [place] [phone] Pediatrics 05/29/21 Douglas Gonzalez MD [address] [place] [id number] Assigned Pediatric Specialist Provider 06/04/21 11/30/22 Julian Spencer MD [address] [place], [place] [address] Assigned Musculoskeletal Provider 05/11/23 03/26/25 Azar Cruz MD [address] [facility] [address] [place], [place] [address] Assigned Pediatric Specialist Provider 10/18/23 lGen Roth MD [facility] [address] [address] Assigned Musculoskeletal Provider 03/27/25 documented as of this encounter
--- OUTSIDE RECORDS SUMMARY | 2025-05-13 16:42 | XMS_ITS | Encounter Summary ---
Author Organization [facility] Address [address] [place] [address] Care Team Providers Care Flag Decorator Name Role Phone Julian Spencer MD Unavailable [phone] Julian Spencer MD Unavailable [phone] Josh Carrero Primary Care Provider + [phone] Urbano Price MD Unavailable [phone] Joe Leo MD Unavailable [phone] Joe Leo MD Unavailable [phone] Douglas Gonzalez MD Unavailable + [phone] Douglas Gonzalez MD Unavailable + [phone] Julian Spencer MD Unavailable [phone] Azar Cruz MD Unavailable +[phone] Glen Roth MD Unavailable [phone] Encounter Details Date Type Department Care Team (Late st Contact Info) Description 08/21/2021 [facility] [address] [place] [address] Julian Spencer MD [address] [place] [address] Social History Tobacco Use Types Packs/Day Years Used Date Smoking Tobacco: Never Smokeless Tobacco: Never Alcohol Use Standard Drinks/Week Comments Not Currently 0 (1 standard drink = 0.6 oz pur e alcohol) PHQ-2 Answer Date Recorded PHQ-2 Score 0 09/01/2020 Comments No Sex and Gender Information Value Date Recorded Sex Assigned at Female 12/02/2020 1:42 PM CDT Legal Sex Female 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 No / Unsure 08/24/2021 3:05 PM HORSE EXERCISER documented as of this encounter Plan of Treatment Upcoming Encounters Date Type Department Care Team ([facility] st Contact Info) Description 07/05/2025 3:00 PM HORSE EXERCISER Office Visit [facility] [address] [facility] [address] [place] [phone] Azar Cruz MD [address] [facility] [address], [address] [place], [place] [address] Mynor Hargrove MD [address] [facility] [address] [place], [place] [address] 03/03/2026 3:20 PM CDT Office Visit [facility] [place] [address] [facility] [address] 4[address] [place] [address] Glen Roth MD [address] [facility] [address] [place], [place] [address] documented as of this encounter Visit Diagnoses Not on filedocumented in this encounter Care Teams Flag Decorator Relationship Specialty Start Date End Date Josh Carrero [address] [address] PCP - General Family Medicine 1/5/21 Julian Spencer MD Orthopedics 03/08/20 Julian Spencer MD Assigned Musculoskeletal Provider 05/27/20 02/22/23 Urbano rPice MD [address] [place] [address]854 Assigned PCP 11/13/20 08/28/23 Joe Leo MD [address] [place] [address]42135 Physical Medicine and Rehabilitation 04/11/21 Joe Leo MD [address] [place] [address] [phone] Assigned Neuroscience Provider 04/30/21 11/16/22 Douglas Gonzalez MD [address] [place] [id number] Pediatrics 05/29/21 Douglas Gonzalez MD [address] [place] [address] Assigned Pediatric Specialist Provider 06/04/21 11/30/22 Julian Spencer MD [address] [place] [phone] Assigned Musculoskeletal Provider 05/11/23 03/26/25 Azar Cruz MD [address] [place] [address] [address], [address] [place] [address] Assigned Pediatric Specialist Provider 10/18/23 Glen Roth MD [address] [place] [address] Assigned Musculoskeletal Provider 03/27/25 documented as of this encounter
[2025-05-13 16:50] LABS: Hematocrit* 38.0 % (33.0-51.0); Hemoglobin* 12.6 gm/dL (12.0-16.0); Immature Granulocytes Abs Auto 0.01 K/uL (0.00-0.30); Immature Granulocytes Pct Auto 0.1 %; Lymphocytes Absolute Auto 3.15 K/uL (0.90-2.90); Mean Corpuscular HGB Conc 33 gm/dL (32-36); Mean Corpuscular Hemoglobin 30 pg (26-34); Mean Corpuscular Volume 92 fL (80-100); RDW Coefficient of Variation % 12.0 % (11.5-15.5); Red Blood Count* 4.14 m/uL (4.00-5.20); White Blood Count* 8.71 K/uL (4.50-11.00)
[2025-05-13 16:55] LABS: Slide Review Reflex No
[2025-05-13 17:04] LABS: INR 0.86 (0.91-1.10); Prothrombin Time 12.5 Seconds
[2025-05-13 17:05] LABS: Chloride* 102 mmol/L (96-114); Potassium* 4.3 mmol/L (3.6-5.1); Sodium* 136 mmol/L (135-149)
[2025-05-13 17:08] LABS: Anion Gap 6 mEq/L (7-15); Blood Urea Nitrogen* 12 mg/dL (5-24); Calcium* 9.1 mg/dL (8.4-10.6); Carbon Dioxide* 28 mmol/L (20-32); Creatinine* 0.6 mg/dL (0.5-1.5); Est. Creatinine Clearance* 131.22; Estimated Glomerular Filt Rate 129 ml/min; Glucose* 82 mg/dL (60-115)
[2025-05-13 17:17] VITALS: PULSE 85; RESP 18; O2SAT 99
== END 2025-05-13 18:10 | disposition home or self-care (01) ==
PROVIDERS: Emergency Provider Family Medicine; PCP Physician Assistant Medical
DX: R51.9 Headache, unspecified (principal); D68.9 Coagulation defect, unspecified
CPT/HCPCS: 36415; 70450; 80048; 85025; 85610; 85730; 96374; 99284; J1885; J7030